=== PATIENT | female | born 1980 | race Caucasian/White ===

== ENCOUNTER 2020-02-13 11:39 | Emergency (ER) | payer OTHER, SELFPAY ==
[2020-02-13 11:51] VITALS: BP 115/70; PULSE 80; RESP 16; TEMP 37.4; O2SAT 98; BMI 37.5
--- NOTE | 2020-02-13 12:04 | XR_ITS ---
EXAMINATION: XR CHEST CLINICAL INFORMATION: Covid like symptoms COMPARISON: November 18, 2019 TECHNIQUE: AP portable view of the chest was obtained. FINDINGS: No significant abnormality is noted involving the heart, lungs, mediastinum, bony thorax or soft tissues. IMPRESSION: No acute disease.
--- NOTE | 2020-02-13 12:22 | ED.URI ---
HPI - URI/Sore Throat General Chief Complaint: Upper Respiratory Symptoms Stated Complaint: COVID SCREENING Time Seen by Provider: 02/13/20 12:04 Source: patient Mode of arrival: ambulatory Limitations: no limitations History of Present Illness HPI Narrative: 39-year-old female with a past medical history of migraine headaches, disc herniation, depression, sinus infections and asthma presenting to the ED with complaints of 1 week of generalized body aches, sore throat, dry cough, nausea and diarrhea. Denies any other symptoms complaints or concerns at this time. Denies any recent travel or sick contacts. Related Data Allergies Allergy/AdvReac Type Severity Reaction Status Date / Time promethazine [From PHENERGAN] Allergy Unknown ITCHING Unverified 01/10/20 18:30 codeine [CODEINE] AdvReac Unknown STOMACH Unverified 01/10/20 18:30 UPSET morphine [MORPHINE] AdvReac Unknown MORE PAIN Unverified 01/10/20 18:30 Review of Systems Review of Systems: Constitutional : No Fever, No Chills, No fatigue, No Malaise ENT/Mouth : No runny nose Eyes: No Discharge Cardiovascular : No Chest Pain, No SOB Respiratory : No Sputum, No Wheezing, No Dyspnea Gastrointestinal : No Vomiting, No Diarrhea Genitourinary : No Dysuria Skin : No rash Neuro : No Headache Yes all other systems are reviewed and are negative [facility] Past Medical History Attestation statement: The following information was validated with the patient. Medical History Asthma Depression Disc herniation H. pylori infection Migraine Sinus infection Surgical History History of Social History Social History Alcohol intake: never Smoking Status: Current every day smoker Use of substances other than those prescribed or required for medical reasons: No Physical Exam Vital Signs: Vital Signs: Vital Signs Temp Pulse Resp BP Pulse Ox 02/13/20 11:51 99.3 F 80 16 115/70 98 Body Mass Index 37.5 vital signs have been reviewed as normal and appeared to be correct. Blood pressure normal. Heart rate normal. Respiration rate normal. Temperature normal. Oxygen saturation normal. Appearance: Alert. Oriented X3. No acute distress. Head: Normal external exam. Normocephalic. Atraumatic. No Borjas signs noted. No raccoon eyes noted Eyes: PERRLA. EOMI. Conjunctiva and sclera normal. Eyelids normal. ENT: EAC normal. TM's Normal. Pharynx normal. Uvula midline. Moist mucous membranes. No trismus noted. No drooling noted. No muffled voice noted. Neck: Normal inspection. Neck supple. FROM. No adenopathy. Thyroid Normal. No meningeal signs. No neck mass noted. CVS: Normal heart rate and rhythm. Heart sound normal. No murmurs noted. Pulses normal throughout. Respiratory: No respiratory distress. Painless inspiration. Breath sounds normal. No wheezes/rales/rhonchi noted. Chest nontender. No accessory muscle usage noted or decreased air movement noted. Abdomen: Soft and nontender. Bowel sounds normal in all 4 quadrants. No distention noted. No organomegaly noted. No visible injury noted. Back: No CVA tenderness. Full range of motion noted. Skin: Skin warm and dry. Normal skin color. Normal skin turgor. No rashes/lesions/lacerations noted. Extremities: No lower extremity edema. Extremities exhibit normal range of motion. Extremities nontender. Neuro: Oriented X 3. No motor deficit. No sensory deficit. Reflexes normal. Course Course Course Narrative: 12:10PM 39-year-old female with a past medical history of migraine headaches, disc herniation, depression, sinus infections and asthma presenting to the ED with complaints of 1 week of generalized body aches, sore throat, dry cough, nausea and diarrhea. Denies any other symptoms complaints or concerns at this time. Denies any recent travel or sick contacts. - CXR, rapid strep and and covid swab. Patient also requesting a muscle relaxer therefore will give 10 mg of Flexeril at this time then re-evaluate. Reevaluation(s) Reevaluation #1: Chest x-ray within normal limits. COVID swab pending at this time although will DC home with symptomatic treatment along with instructions to return if any new or worsening symptoms to self isolate into her COVID swab results come back or 10 days have passed since her symptoms have started and are improving. Patient understands agrees with this plan to return if any new or worsening symptoms to follow-up with primary care provider. Time: 12:43 [facility] - URI/Sore Throat Medical Records Attestation: I reviewed the patient's medical records. Imaging Data Chest x-ray: Attestation: I personally reviewed and interpreted this imaging study as follows: Radiologist's impression: FINDINGS: No significant abnormality is noted involving the heart, lungs, mediastinum, bony thorax or soft tissues. IMPRESSION: No acute disease.
[2020-02-13] MEDS: Cyclobenzaprine HCl 10 MG TABLET PO (12:27)
== END 2020-02-13 13:28 | disposition home or self-care (01) ==
PROVIDERS: Physician Assistant Medical; Emergency Provider Emergency Medicine
DX: B34.9 Viral infection, unspecified (principal); Z20.828 Contact with and (suspected) exposure to other viral communicable diseases; J45.909 Unspecified asthma, uncomplicated; F17.200 Nicotine dependence, unspecified, uncomplicated
CPT/HCPCS: 71045; 87071; 87635; 87880; 99283

== ENCOUNTER 2020-03-24 19:20 | Emergency (ER) | payer OTHER, SELFPAY ==
[2020-03-24 19:25] VITALS: BP 117/75; PULSE 87; RESP 18; TEMP 37; O2SAT 98; BMI 37.4
--- NOTE | 2020-03-24 20:40 | XR_ITS ---
EXAMINATION: XR ANKLE, RIGHT CLINICAL INFORMATION: Right ankle pain. Fall COMPARISON: None TECHNIQUE: AP, lateral, and mortise views of the right ankle. FINDINGS: The bones and soft tissues are normal. No fracture. Alignment is anatomic. Joint spaces are maintained. No joint effusion. XR/XR ankle RT 2V IMPRESSION: Normal right ankle.
--- NOTE | 2020-03-24 20:40 | ED.FALL ---
HPI - Fall General Chief Complaint: Fall Stated Complaint: FALL AT WORK Time Seen by Provider: 03/24/20 22:02 Source: patient Mode of arrival: ambulatory Limitations: no limitations History of Present Illness HPI Narrative: 39-year-old female presents with left hip pain, left knee pain, left ankle pain and right ankle pain after a slip and fall at work. She has chronic lower back pain. She is ambulatory but walking with a limp. She does not describe any other symptoms. MD complaint: fall Onset (ago): unknown Fall from: standing Fall witnessed: yes, by bystander Place fall occurred: work Loss of consciousness: none Prolonged down time: no Symptoms prior to fall: none Context: tripped/slipped Severity scale (1-10): 10 Quality: aching, tingling, spasming and throbbing Associated symptoms (after fall): denies Related Data Previous Rx's Medication Instructions Recorded acetaminophen [Tylenol] 650 mg PO Q6H PRN #14 tab 02/13/20 azithromycin See Rx Instructions .ROUTE 02/13/20 .COMPLEX #6 tab cyclobenzaprine 10 mg PO TID PRN #14 tab 02/13/20 cyclobenzaprine 10 mg PO TID PRN #30 tab 03/24/20 ondansetron HCl [Zofran] 4 mg PO Q8H PRN #10 tab 03/24/20 Allergies Allergy/AdvReac Type Severity Reaction Status Date / Time promethazine [From PHENERGAN] Allergy Unknown ITCHING Verified 03/24/20 21:49 codeine [CODEINE] AdvReac Unknown STOMACH Verified 03/24/20 21:49 UPSET morphine [MORPHINE] AdvReac Unknown MORE PAIN Verified 03/24/20 21:49 Review of Systems Review of Systems: Constitutional: No Fever, No Chills ENT/Mouth: No Ear Pain, No Hoarseness, No sore throat Eyes: No Eye Pain, No Swelling, No Redness, No Foreign Body Cardiovascular: No Chest Pain, No SOB Respiratory: No Cough, No Dyspnea Gastrointestinal: No Nausea, No Vomiting, No Diarrhea, No abdominal Pain Genitourinary: No Dysuria, No Hematuria Musculoskeletal: positive Left hip, knee ankle and right ankle pain, No Myalgias, No Joint Swelling Skin: No Skin lacerations, No rash Neuro: No Weakness, No Numbness, No Paresthesias, No Loss of Consciousness, No Dizziness, No Headache Psych: No Anxiety/Panic, No Depression Heme/Lymph: no easy bruising, no Lymphadenopathy Endocrine: No Polyuria, No Polydipsia PMF Past Medical History Medical History Asthma Depression Disc herniation H. pylori infection Migraine Sinus infection Surgical History History of Social History Social History Alcohol intake: never Smoking Status: Current every day smoker Advance Directives: No Advance Directives Information Provided: Yes Physical Exam Vital Signs: Vital Signs: Last Vital Signs Temp 98.6 F 03/24/20 19:25 Pulse 87 03/24/20 19:25 Resp 18 03/24/20 19:25 BP 117/75 03/24/20 19:25 Pulse Ox 98 03/24/20 19:25 Body Mass Index 37.4 Appearance: Alert. Oriented X3. No acute distress. Eyes: Pupils equal, round and reactive to light. ENT: Pharynx normal. Neck: Normal inspection. Neck supple. CVS: Normal heart rate and rhythm. Pulses normal. Respiratory: No respiratory distress. Breath sounds normal. Abdomen: Soft and nontender. Skin: Skin warm and dry. Normal skin color. Normal skin turgor. Extremities: No lower extremity edema. Neuro: No motor deficit. No sensory deficit. Course Course Course Narrative: 39-year-old female presents with left hip, left knee, left ankle, and right ankle pain after a slip at work. Plan of care is for x-rays. Pain management Toradol and Flexeril. X-rays negative for acute findings. Patient was referred to pain management for chronic lower back pain. We did give work note for 1 day, and a script for Flexeril and Zofran. MDM - Fall Differential Diagnosis Differential diagnosis: Likely fracture Medical Records Attestation: I reviewed the patient's medical records. Lab Data Attestation: I reviewed the patient's lab results. Imaging Data hip, ankle, knee x-ray: Attestation: I personally reviewed and interpreted this imaging study as follows: Radiologist's impression: EXAMINATION: XR HIP, LEFT CLINICAL INFORMATION: Fall. Hip pain COMPARISON: None TECHNIQUE: Three views of the left hip. FINDINGS: Bones and soft tissues are normal. No fracture. Alignment is anatomic. Hip joint space is maintained. XR/XR hip LT w PEL1V IMPRESSION: Normal left hip. EXAMINATION: XR KNEE, LEFT CLINICAL INFORMATION: Fall. Knee pain. COMPARISON: None TECHNIQUE: Four views of the left knee. FINDINGS: Bones and soft tissues are normal. No fracture or joint effusion. Alignment is anatomic. Joint spaces are well maintained. No abnormal soft tissue calcification. XR/XR knee LT 4V IMPRESSION: Normal left knee. EXAMINATION: XR ANKLE, LEFT CLINICAL INFORMATION: Fall. Left ankle pain COMPARISON: None TECHNIQUE: 3 views of the left ankle. FINDINGS: The bones and soft tissues are normal. No fracture. Alignment is anatomic. Joint spaces are maintained. No joint effusion. XR/XR ankle LT min 3V IMPRESSION: Normal left ankle. EXAMINATION: XR CHEST CLINICAL INFORMATION: Covid like symptoms COMPARISON: November 18, 2019 TECHNIQUE: AP portable view of the chest was obtained. FINDINGS: No significant abnormality is noted involving the heart, lungs, mediastinum, bony thorax or soft tissues. IMPRESSION: No acute disease. Discharge Plan Discharge Clinical Impression: Acute pain of left hip, Acute right ankle pain Patient Disposition: Home, Self-Care Instructions: Hip Pain (ED) Additional Instructions: you were evaluated for hip and ankle pain. X-rays are negative for acute fractures. I have referred you to Dr. Richter for pain management for Your chronic back pain. I prescribed Flexeril. This medication is not a narcotic it is a muscle relaxer. This medication can delay reaction time, increased risk for falls, and cause drowsiness. Do not drive or operate machinery while taking this medication. Thank you for choosing this emergency department for evaluation. Please follow-up with primary care physician as needed. Return to the emergency department for any new, concerning, or worsening symptoms. Prescriptions: New cyclobenzaprine 10 mg tablet 10 mg PO TID PRN (Reason: muscle spasm) Qty: 30 RF: 0 ondansetron HCl [Zofran] 4 mg tablet 4 mg PO Q8H PRN (Reason: nausea and vomiting) Qty: 10 RF: 0 No Action azithromycin 250 mg tablet See Rx Instructions .ROUTE .COMPLEX Qty: 6 RF: 0 cyclobenzaprine 10 mg tablet 10 mg PO TID PRN (Reason: muscle spasm) Qty: 14 RF: 0 acetaminophen [Tylenol] 325 mg tablet 650 mg PO Q6H PRN (Reason: fever or pain) Qty: 14 RF: 0 Referrals: Salazar Richter MD [Physician] - 2 days ( chronic back pain, hip pain) Stand Alone Forms: Work/School Release Interventions: ED Discharge Assessment Last Done: 03/24/20 22:29 Discharge Date/Time: 03/24/20 22:30
--- NOTE | 2020-03-24 21:05 | XR_ITS ---
EXAMINATION: XR ANKLE, LEFT CLINICAL INFORMATION: Fall. Left ankle pain COMPARISON: None TECHNIQUE: 3 views of the left ankle. FINDINGS: The bones and soft tissues are normal. No fracture. Alignment is anatomic. Joint spaces are maintained. No joint effusion. XR/XR ankle LT min 3V IMPRESSION: Normal left ankle.
[2020-03-24] MEDS: Ketorolac Tromethamine 60 MG/2 ML VIAL IM (21:17)
[2020-03-24] MEDS: Cyclobenzaprine HCl 10 MG TABLET PO (22:22)
== END 2020-03-24 22:30 | disposition home or self-care (01) ==
PROVIDERS: Emergency Provider Emergency Medicine Emergency Medical Services
DX: S79.912A Unspecified injury of left hip, initial encounter (principal); M25.552 Pain in left hip; M25.571 Pain in right ankle and joints of right foot; M25.562 Pain in left knee; W01.0XXA Fall on same level from slipping, tripping and stumbling without subsequent striking against object, initial encounter; Y93.9 Activity, unspecified; Y92.9 Unspecified place or not applicable; Y99.0 Civilian activity done for income or pay; F17.200 Nicotine dependence, unspecified, uncomplicated; Z71.6 Tobacco abuse counseling; Z79.899 Other long term (current) drug therapy
CPT/HCPCS: 73502; 73564; 73600; 73610; 96372; 99283; 99284; J1885

== ENCOUNTER 2021-01-12 20:17 | Emergency (ER) | payer OTHER, SELFPAY ==
--- NOTE | ~2021-01-12 | XR_ITS ---
EXAMINATION: XR CHEST CLINICAL INFORMATION: Cough and fever COMPARISON: Chest 02/13/2020 TECHNIQUE: Frontal view of the chest was obtained. FINDINGS: No significant abnormality is noted involving the heart, lungs, mediastinum, bony thorax or soft tissues. XR/XR chest 1V IMPRESSION: Unremarkable chest exam.
[2021-01-12 20:43] VITALS: BP 116/74; PULSE 76; RESP 16; TEMP 37.3; O2SAT 98; BMI 37.4
--- NOTE | 2021-01-12 20:51 | PC.NURSE ---
Covid swab obtained in Triage.
--- NOTE | 2021-01-12 21:01 | ED_ITS ---
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 At work there was a COVID positive patient. Patient has been vaccinated. Cough and chest pain. MD elicited complaint: fever, cough and sore throat Onset (ago): day(s) (2) Consistency: constant Severity: mild Associated symptoms: fever, chills, nausea, vomiting and diarrhea Related Data Previous Rx's Medication Instructions Recorded acetaminophen 325 mg tablet 650 mg PO Q6H PRN #14 tab 02/13/20 (Tylenol) azithromycin 250 mg tablet See Rx Instructions .ROUTE 02/13/20 .COMPLEX #6 tab cyclobenzaprine 10 mg tablet 10 mg PO TID PRN #14 tab 02/13/20 cyclobenzaprine 10 mg tablet 10 mg PO TID PRN #30 tab 03/24/20 ondansetron HCl 4 mg tablet 4 mg PO Q8H PRN #10 tab 03/24/20 (Zofran) Allergies Allergy/AdvReac Type Severity Reaction Status Date / Time promethazine [From PHENERGAN] Allergy Unknown ITCHING Verified 01/12/21 20:48 codeine [CODEINE] AdvReac Unknown STOMACH Verified 01/12/21 20:48 UPSET morphine [MORPHINE] AdvReac Unknown MORE PAIN Verified 01/12/21 20:48 Review of Systems Constitutional: Constitutional: Reports no additional constitutional complaints Eyes: Eyes: Reports no additional eye complaints ENT: Denies dizziness Cardiovascular: Cardiovascular: Reports no additional cardiovascular complaints Respiratory: Respiratory: Reports as per HPI Gastrointestinal: Gastrointestinal: Reports no additional gastrointestinal complaints Genitourinary: Genitourinary: Reports no additional female genitourinary com plaints Musculoskeletal: Musculoskeletal: Reports no additional musculoskeletal complaints Integumentary/Breasts: Skin/Breast: Denies rash Neurologic: Reports system reviewed and no additional complaints, except as documented, Denies dizziness and Denies Sensory deficit (Neuro) Psychiatric: Psychiatric: Denies anxiety PMFSH Past Medical History Medical History Asthma Depression Disc herniation H. pylori infection Migraine Sinus infection Surgical History History of Social History Social History Alcohol intake: never Advance Directives: No Advance Directives Information Provided: No Patient : No Physical Exam Vital Signs: Vital Signs: Last Vital Signs Temp 99.1 F 01/12/21 20:43 Pulse 76 01/12/21 20:43 Resp 16 01/12/21 20:43 BP 116/74 01/12/21 20:43 Pulse Ox 98 01/12/21 20:43 Body Mass Index 37.4 Const: General: healthy appearing Nutritional Appearance: average body habitus Orientation/consciousness: oriented to person and patient oriented x3 Limitations: no limitations HENMT: Head: Yes normal to inspection Ears: external ears normal General nose exam: Normal external nose present Mouth: Normal oral and palatal mucosa present and oropharynx normal Throat: Yes posterior oropharynx normal Eyes: General: appearance normal, both eyes and all related structures Neck: Other: supple Neck: Yes normal visual inspection Chest: Chest palpation & inspection: normal inspection of the chest Resp: Other: slight wheeze bilaterally Cardio: Jugular venous distension: no JVD Rate: regular rate Rhythm: regular rhythm Heart sounds: S1 normal heart sound present and S2 normal heart sound present GI: Inspection: Yes normal to inspection Palpation (GI): Soft to palpation, nontender and No hepatosplenomegaly present Auscultation: normal bowel sounds : General: Yes no CVA tenderness Back/Spine/Pelvis: Back: no CVA tenderness Skin: General skin exam: no rashes or lesions noted Neuro: General: oriented to person and patient oriented x3 Cranial nerves: Yes CN's II-XII intact bilaterally Motor exam (neuro): 5/5 motor strength present throughout Sensory Exam: No Sensory deficit (Neuro) Extrem: General: Yes normal to inspection Psych: Appearance: grossly normal Course Reevaluation(s) Reevaluation #1: COVID negative, chest xray negative. patient given albuterol for wheezing will dc home Time: 21:38 MDM - URI/Sore Throat Lab Data Labs: Lab Results 01/12/21 Range/Units 20:49 COVID-19 ([facility]) Negative (Negative) COVID-19 Clin Com See Note Imaging Data Chest x-ray: Radiologist's impression: IMPRESSION: Unremarkable chest exam. ? Discharge Plan Discharge Clinical Impression: Asthma Qualifiers: Asthma severity: mild Asthma persistence: intermittent Asthma complication type: uncomplicated Qualified Code(s): J45.20 - Mild intermittent asthma, uncomplicated Upper respiratory infection Qualifiers: URI type: unspecified viral URI Qualified Code(s): J06.9 - Acute upper respiratory infection, unspecified Patient Disposition: Home, Self-Care Instructions: Asthma (ED), Upper Respiratory Infection (ED) Prescriptions: No Action azithromycin 250 mg tablet See Rx Instructions .ROUTE .COMPLEX Qty: 6 RF: 0 cyclobenzaprine 10 mg tablet 10 mg PO TID PRN (Reason: muscle spasm) Qty: 14 RF: 0 acetaminophen [Tylenol] 325 mg tablet 650 mg PO Q6H PRN (Reason: fever or pain) Qty: 14 RF: 0 cyclobenzaprine 10 mg tablet 10 mg PO TID PRN (Reason: muscle spasm) Qty: 30 RF: 0 ondansetron HCl [Zofran] 4 mg tablet 4 mg PO Q8H PRN (Reason: nausea and vomiting) Qty: 10 RF: 0 Referrals: Physician,Unknown [Primary Care Provider] - 1 week
[2021-01-12 21:16] LABS: COVID-19 Test Negative (Negative); IDNOW Serial# 9DD0AD1C
[2021-01-12] MEDS: Albuterol Sulfate 90 MCG 8 GM INHALER 4 PUFF INHALE (21:24)
[2021-01-12] MEDS: Ondansetron ODT 4 MG TAB.RAPDIS TRANSLINGU (21:24)
== END 2021-01-12 21:55 | disposition home or self-care (01) ==
PROVIDERS: Emergency Provider Emergency Medicine
DX: J45.20 Mild intermittent asthma, uncomplicated (principal); J06.9 Acute upper respiratory infection, unspecified; R51.9 Headache, unspecified; M79.10 Myalgia, unspecified site; Z20.822 Contact with and (suspected) exposure to COVID-19; Z79.899 Other long term (current) drug therapy
CPT/HCPCS: 36415; 71045; 87635; 99284

== ENCOUNTER 2021-05-03 19:02 | Emergency (ER) | payer OTHER, SELFPAY ==
[2021-05-03 19:53] VITALS: BP 132/81; PULSE 80; RESP 16; TEMP 36.4; O2SAT 97; BMI 61.4
[2021-05-03 20:16] LABS: MANUAL DIFF FLAG NO
[2021-05-03 20:17] LABS: Basophils Absolute Auto 0.1 X10*3/uL (0.0-0.2); Basophils Percent Auto 1.1 % (0-2); Eosinophils Absolute Auto 0.6 X10*3/uL (0.0-0.4); Eosinophils Percent Auto 4.3 % (0-4); Hematocrit 40.3 % (37.0-47.0); Hemoglobin 13.1 g/dl (12.0-16.0); Imm Gran Abs Auto 0.05 X10*3/uL (0.00-0.03); Imm Gran Pct Auto 0.4 % (0.0-0.4); Lymphocytes Absolute Auto 3.8 X10*3/uL (1.2-4.9); Lymphocytes Percent Auto 29.1 % (20-40); Mean Corpuscular HGB Conc 32.5 g/dl (31.0-35.0); Mean Corpuscular Hemoglobin 28.7 pg (27.0-33.0); Mean Corpuscular Volume 88.2 fL (80.0-98.0); Mean Platelet Volume 10.2 fL (9.4-12.3); Monocytes Absolute Auto 0.8 X10*3/uL (0.1-1.2); Monocytes Percent Auto 5.7 % (2-11); Neutrophils Absolute Auto 7.8 x10*3/uL (2.0-8.3); Neutrophils Percent Auto 59.4 % (45-73); Platelet Count 362 X10*3/uL (160-400); Red Blood Count 4.57 X10*6/uL (4.20-5.50); Red Cell Distribution Width 15.4 % (11.0-16.0); White Blood Count 13.1 X10*3/uL (4.8-10.8)
[2021-05-03 20:33] LABS: Alanine Aminotransferase 27 U/L (0-31); Albumin Level 3.8 g/dL (3.5-5.0); Alkaline Phosphatase 99 U/L (39-117); Anion Gap 11 (12-20); Aspartate Amino Transferase 20 U/L (5-31); Bilirubin Total 0.2 mg/dL (0.0-1.0); Blood Urea Nitrogen 12 mg/dL (9-16); Calcium 9.8 mg/dL (8.4-10.2); Carbon Dioxide 28 mmol/L (22-29); Chloride 104 mmol/L (96-108); Creatinine Clr Calc Pharmacy 73.4; Estimated Glomerular Filt Rate > 60; Glucose Random 82 mg/dL (60-115); Potassium 4.8 mmol/L (3.3-5.1); Sodium 138 mmol/L (135-145); Total Protein 6.7 g/dL (6.5-8.0)
[2021-05-03 20:40] LABS: B Type Natriuretic Peptide < 10 pg/mL (<100)
[2021-05-03 21:00] LABS: D Dimer High Sensitivity < 150 NG/ML
--- NOTE | 2021-05-03 23:35 | ED_ITS ---
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 Patient denies any shortness of b reath, recent travel. Patient denies any vomiting, abdominal pain, new cough, diarrhea, urinary pain/burning/frequency. Related Data Previous Rx's Medication Instructions Recorded acetaminophen 325 mg tablet 650 mg PO Q6H PRN #14 tab 02/13/20 (Tylenol) azithromycin 250 mg tablet See Rx Instructions .ROUTE 02/13/20 .COMPLEX #6 tab cyclobenzaprine 10 mg tablet 10 mg PO TID PRN #14 tab 02/13/20 cyclobenzaprine 10 mg tablet 10 mg PO TID PRN #30 tab 03/24/20 ondansetron HCl 4 mg tablet 4 mg PO Q8H PRN #10 tab 03/24/20 (Zofran) cephalexin 500 mg capsule 500 mg PO Q12H 5 Days #10 cap 05/03/21 Allergies Allergy/AdvReac Type Severity Reaction Status Date / Time promethazine [From PHENERGAN] Allergy Unknown ITCHING Verified 05/03/21 19:58 codeine [CODEINE] AdvReac Unknown STOMACH Verified 05/03/21 19:58 UPSET morphine [MORPHINE] AdvReac Unknown MORE PAIN Verified 05/03/21 19:58 Review of Systems Review of Systems: Pertinent positives and negatives as stated in HPI 10 point review of systems is otherwise negative. [facility] Past Medical History Source: nursing notes reviewed Medical History Asthma Depression Disc herniation H. pylori infection Migraine Sinus infection Surgical History History of Social History Social History Alcohol intake: never Advance Directives: No Advance Directives Information Provided: Yes Patient : No Physical Exam Vital Signs: Vital Signs: Last Vital Signs Temp 97.5 F 05/03/21 19:53 Pulse 80 05/03/21 19:53 Resp 16 05/03/21 19:53 BP 132/81 05/03/21 19:53 Pulse Ox 97 05/03/21 19:53 BMI result Body Mass Index 61.4 VITAL SIGNS: Reviewed. GENERAL: Well developed, well nourished, in no acute distress. HEAD: Normocephalic/atraumatic EYES: PERRLA, EOMI OROPHARYNX: no oral lesions noted, posterior pharynx clear LUNGS: Normal breath sounds. No adventitious sounds or accessory muscle use. SpO2<97> CARDIOVASCULAR: Regular rate and rhythm without noted murmurs ABDOMEN: Soft, non-tender, non-distended with bowel sounds. BILATERAL LOWER EXTREMITIES: There is noted nonpitting edema to bilateral lower extremities without evidence of varicosity, there are no palpable cords, there is trace erythema without induration NEUROLOGIC: Alert and oriented x 4. Course Course Course Narrative: 40-year-old female with history and clinical presentation of w orsening bilateral lower extremity swelling without fever/chills and on review of all investigations no evidence to suggest renal or coagulopathy. There is a noted leukocytosis, and given mild erythema to lower extremities will provide a prescription for cellulitis and otherwise the history is negative to suggest a pneumonia or GI/ etiology. Patient is afebrile and is otherwise discharged home in stable condition to follow-up with a primary care provider. All results discussed with the patient at bedside. MDM - Extremity (Nontraumatic) Lab Data Result diagrams: 05/03/21 20:12 05/03/21 20:12 Labs: Lab Results 05/03/21 05/03/21 05/03/21 Range/Units 20:12 20:12 20:12 WBC 13.1 H (4.8-10.8) X10*3/uL RBC 4.57 (4.20-5.50) X10*6/uL Hgb 13.1 (12.0-16.0) g/dl Hct 40.3 (37.0-47.0) % MCV 88.2 (80.0-98.0) fL MCH 28.7 (27.0-33.0) pg MCHC 32.5 (31.0-35.0) g/dl RDW 15.4 (11.0-16.0) % Plt Count 362 (160-400) X10*3/uL MPV 10.2 (9.4-12.3) fL Immature Gran % (Auto) 0.4 (0.0-0.4) % Neut % (Auto) 59.4 (45-73) % Lymph % (Auto) 29.1 (20-40) % Robeson % (Auto) 5.7 (2-11) % Eos % (Auto) 4.3 H (0-4) % Baso % (Auto) 1.1 (0-2) % Lymph # (Auto) 3.8 (1.2-4.9) X10*3/uL Robeson # (Auto) 0.8 (0.1-1.2) X10*3/uL Eos # (Auto) 0.6 H (0.0-0.4) X10*3/uL Baso # (Auto) 0.1 (0.0-0.2) X10*3/uL Abs Immat Gran (auto) 0.05 H (0.00-0.03) X10*3/uL Absolute Neuts (auto) 7.8 (2.0-8.3) x10*3/uL Absolute Nucleated RBC 0.000 (0.0-0.012) X10*3/uL Nucleated RBC % (auto) 0.0 (0.0-0.2) /100WBC D-Dimer High Sensitivty < 150 NG/ML Sodium 138 (135-145) mmol/L Potassium 4.8 (3.3-5.1) mmol/L Chloride 104 (96-108) mmol/L Carbon Dioxide 28 (22-29) mmol/L Anion Gap 11 L (12-20) BUN 12 (9-16) mg/dL Creatinine 0.80 (0.5-1.4) mg/dL Estim Creat Clear Calc 73.4 Estimated GFR > 60 Random Glucose 82 (60-115) mg/dL Calcium 9.8 (8.4-10.2) mg/dL Total Bilirubin 0.2 (0.0-1.0) mg/dL AST 20 (5-31) U/L ALT 27 (0-31) U/L Alkaline Phosphatase 99 (39-117) U/L B-Natriuretic Peptide (<100) pg/mL Total Protein 6.7 (6.5-8.0) g/dL Albumin 3.8 (3.5-5.0) g/dL 05/03/21 Range/Units 20:12 WBC (4.8-10.8) X10*3/uL RBC (4.20-5.50) X10*6/uL Hgb (12.0-16.0) g/dl Hct (37.0-47.0) % MCV (80.0-98.0) fL MCH (27.0-33.0) pg MCHC (31.0-35.0) g/dl RDW (11.0-16.0) % Plt Count (160-400) X10*3/uL MPV (9.4-12.3) fL Immature Gran % (Auto) (0.0-0.4) % Neut % (Auto) (45-73) % Lymph % (Auto) (20-40) % Robeson % (Auto) (2-11) % Eos % (Auto) (0-4) % Baso % (Auto) (0-2) % Lymph # (Auto) (1.2-4.9) X10*3/uL Robeson # (Auto) (0.1-1.2) X10*3/uL Eos # (Auto) (0.0-0.4) X10*3/uL Baso # (Auto) (0.0-0.2) X10*3/uL Abs Immat Gran (auto) (0.00-0.03) X10*3/uL Absolute Neuts (auto) (2.0-8.3) x10*3/uL Absolute Nucleated RBC (0.0-0.012) X10*3/uL Nucleated RBC % (auto) (0.0-0.2) /100WBC D-Dimer High Sensitivty NG/ML Sodium (135-145) mmol/L Potassium (3.3-5.1) mmol/L Chloride (96-108) mmol/L Carbon Dioxide (22-29) mmol/L Anion Gap (12-20) BUN (9-16) mg/dL Creatinine (0.5-1.4) mg/dL Estim Creat Clear Calc Estimated GFR Random Glucose (60-115) mg/dL Calcium (8.4-10.2) mg/dL Total Bilirubin (0.0-1.0) mg/dL AST (5-31) U/L ALT (0-31) U/L Alkaline Phosphatase (39-117) U/L B-Natriuretic Peptide < 10 (<100) pg/mL Total Protein (6.5-8.0) g/dL Albumin (3.5-5.0) g/dL Discharge Plan Discharge Clinical Impression: Bilateral leg edema, Cellulitis Patient Disposition: Home, Self-Care Instructions: Leg Edema (ED), Cellulitis (ED) Additional Instructions: 1. Complete todo el ciclo de antibi?ticos que le johnson proporcionado. Recomendar medias de compresi?n. 2. Seguimiento con el proveedor de atenci?n primaria a primera hora de la ma?carrie. Regrese a la lyndsey de emergencias si los s?ntomas empeoran. Prescriptions: New cephalexin 500 mg capsule 500 mg PO Q12H 5 Days Qty: 10 RF: 0 No Action azithromycin 250 mg tablet See Rx Instructions .ROUTE .COMPLEX Qty: 6 RF: 0 cyclobenzaprine 10 mg tablet 10 mg PO TID PRN (Reason: muscle spasm) Qty: 14 RF: 0 acetaminophen [Tylenol] 325 mg tablet 650 mg PO Q6H PRN (Reason: fever or pain) Qty: 14 RF: 0 cyclobenzaprine 10 mg tablet 10 mg PO TID PRN (Reason: muscle spasm) Qty: 30 RF: 0 ondansetron HCl [Zofran] 4 mg tablet 4 mg PO Q8H PRN (Reason: nausea and vomiting) Qty: 10 RF: 0 Referrals: Tatum Magdaleno MD [Primary Care Provider] - 2 days Print Language: Yakut
== END 2021-05-04 00:50 | disposition home or self-care (01) ==
LOC: HO.ED 05-04 00:11
PROVIDERS: Emergency Provider Student in an Organized Health Care Education/Training Program; PCP Family Medicine
DX: R60.0 Localized edema (principal); L03.116 Cellulitis of left lower limb; L03.115 Cellulitis of right lower limb; D72.829 Elevated white blood cell count, unspecified
CPT/HCPCS: 36415; 80053; 83880; 85025; 85379; 99283

== ENCOUNTER 2021-08-13 22:12 | Emergency (ER) | payer OTHER, SELFPAY ==
[2021-08-13 22:18] VITALS: BP 112/82; PULSE 96; RESP 18; TEMP 36.2; O2SAT 96; BMI 42.3
[2021-08-13 22:43] LABS: Appearance Urine CLEAR; Color Urine YELLOW; Glucose Urine UA NEG (NEG); Leukocyte Esterase Urine NEG (NEG); Nitrite Urine NEG (NEG); Urine Blood NEG (NEG); Urine Ketones NEG (NEG); Urine Protein NEG (NEG-TRACE)
[2021-08-13 22:44] LABS: UPreg QC Valid YES; Urine Pregnancy NEGATIVE (NEGATIVE)
[2021-08-13 22:49] LABS: Bacteria Urine TRACE /LPF; RBC Urine 0 /HPF (0); Squamous Epithelial Cell Urine 1+ /LPF; Urine Talc Crystals 1+ /LPF; WBC Urine 0 /HPF (0-4)
[2021-08-13] MEDS: Cyclobenzaprine HCl 10 MG TABLET PO (23:44)
[2021-08-13] MEDS: HYDROmorphone HCl 2 MG TABLET 1 MG PO (23:44)
[2021-08-13] MEDS: cephALEXin 500 MG CAPSULE PO (23:45)
[2021-08-14] VITALS: BP 135/79; PULSE 82; RESP 16; TEMP 36.2; O2SAT 95
--- NOTE | 2021-08-14 00:01 | ED_ITS ---
HPI - Female Genitourinary General Chief complaint: Urogenital-Female Stated complaint: ?UTI/Lower back pain/lump on breast Time Seen by Provider: 08/13/21 23:21 Source: patient Mode of arrival: ambulatory Limitations: no limitations History of Present Illness HPI Narrative: Patient history of chronic back problems has received epidural shots in the past advised surgery but patient could not go because of the weight complaining of pain getting worse for last 4 weeks also complaining of pain when she urinates no paresthesia no focal weakness no recent trauma no fever or chills no nausea vomiting no bladder or bowel continence of the patient noted slight redness of the left breast for last 2 days Related Data Previous Rx's Medication Instructions Recorded acetaminophen 325 mg tablet 650 mg PO Q6H PRN #14 tab 02/13/20 (Tylenol) azithromycin 250 mg tablet See Rx Instructions .ROUTE 02/13/20 .COMPLEX #6 tab cyclobenzaprine 10 mg tablet 10 mg PO TID PRN #14 tab 02/13/20 cyclobenzaprine 10 mg tablet 10 mg PO TID PRN #30 tab 03/24/20 ondansetron HCl 4 mg tablet 4 mg PO Q8H PRN #10 tab 03/24/20 (Zofran) cephalexin 500 mg capsule 500 mg PO Q12H 5 Days #10 cap 05/03/21 cephalexin 500 mg capsule 500 mg PO QID 10 Days #40 cap 08/14/21 cyclobenzaprine 10 mg tablet 10 mg PO Q8H #20 tab 08/14/21 doxycycline hyclate 100 mg tablet 100 mg PO BID #20 tab 08/14/21 ondansetron 4 mg disintegrating 4 mg PO Q6-8H PRN #7 tab 08/14/21 tablet oxycodone-acetaminophen 5 mg-325 1 tab PO Q6H PRN #20 tab 08/14/21 mg tablet (Percocet) Allergies Allergy/AdvReac Type Severity Reaction Status Date / Time promethazine [From PHENERGAN] Allergy Unknown ITCHING Verified 05/03/21 19:58 codeine [CODEINE] AdvReac Unknown STOMACH Verified 05/03/21 19:58 UPSET morphine [MORPHINE] AdvReac Unknown MORE PAIN Verified 05/03/21 19:58 Review of Systems Review of Systems: Yes all other systems are reviewed and are negative PMFSH Past Medical History Medical History Asthma Depression Disc herniation H. pylori infection Migraine Sinus infection Surgical History History of Social History Social History Alcohol intake: never Advance Directives: No Physical Exam Vital Signs: Vital Signs: Last Vital Signs Temp 97.2 F 08/14/21 00:00 Pulse 82 08/14/21 00:00 Resp 16 08/14/21 00:00 BP 135/79 08/14/21 00:00 Pulse Ox 95 08/14/21 00:00 BMI result Body Mass Index 42.3 Appearance: Alert. Oriented X3. No acute distress. ENT: Pharynx normal. Oral Mucosa moist Neck: Normal inspection. Neck supple. CVS: Normal heart rate and rhythm. Pulses normal. Respiratory: No respiratory distress. Equal air entry bilateral, no wheezing/rales/rhonchi Abdomen: Soft and nontender. Bowel sounds are present, no mass palpable, no CVA tenderness Skin: Skin warm and dry. Small erythematous tender area of left breast without any fluctuance or any pus discharge Normal skin turgor. Extremities: No lower extremity edema. No calf tenderness back: Diffuse lumbar tenderness focal spinal tenderness SLR negative sacral sensation intact Neuro: Oriented X 3. No motor deficit. No sensory deficit. MDM - Female Genitourinary MDM Narrative Medical decision making narrative: Patient with chronic low back pain no finding of any long tract involvement will discharge patient home on pain medication and muscle relaxant Lab Data Attestation: I reviewed the patient's lab results. Labs: Lab Results 08/13/21 08/13/21 Range/Units 22:31 22:31 Urine Color YELLOW Urine Appearance CLEAR Urine pH 6.0 (5.0-8.0) Ur Specific [place] 1.010 (1.005-1.025) Urine Protein NEG (NEG-TRACE) MG/DL Urine Glucose (UA) NEG (NEG) MG/DL Urine Ketones NEG (NEG) MG/DL Urine Blood NEG (NEG) Urine Nitrite NEG (NEG) Ur Leukocyte Esterase NEG (NEG) Urine RBC 0 (0) /HPF Urine WBC 0 (0-4) /HPF Ur Squamous Epith Cells 1+ /LPF Talc Crystals 1+ /LPF Urine Bacteria TRACE /LPF Urine Test NEGATIVE (NEGATIVE) Discharge Plan Discharge Clinical Impression: Chronic low back pain, Cellulitis Patient Disposition: Home, Self-Care Instructions: Cellulitis (ED), Chronic Back Pain (DC) Additional Instructions: Take pain medication as prescribed Follow with PCP/Pain Clinic Prescriptions: New cyclobenzaprine 10 mg tablet 10 mg PO Q8H Qty: 20 0RF oxycodone-acetaminophen [Percocet] 5-325 mg tablet 1 tab PO Q6H PRN (Reason: pain) Qty: 20 0RF cephalexin 500 mg capsule 500 mg PO QID 10 Days Qty: 40 0RF ondansetron 4 mg tablet,disintegrating 4 mg PO Q6-8H PRN (Reason: nausea and vomiting) Qty: 7 0RF doxycycline hyclate 100 mg tablet 100 mg PO BID Qty: 20 0RF No Action azithromycin 250 mg tablet See Rx Instructions .ROUTE .COMPLEX Qty: 6 0RF Rx Instructions: take 500 mg today (day 1), then 250 mg for 4 days (days 2-5) cyclobenzaprine 10 mg tablet 10 mg PO TID PRN (Reason: muscle spasm) Qty: 14 0RF acetaminophen [Tylenol] 325 mg tablet 650 mg PO Q6H PRN (Reason: fever or pain) Qty: 14 0RF cyclobenzaprine 10 mg tablet 10 mg PO TID PRN (Reason: muscle spasm) Qty: 30 0RF ondansetron HCl [Zofran] 4 mg tablet 4 mg PO Q8H PRN (Reason: nausea and vomiting) Qty: 10 0RF cephalexin 500 mg capsule 500 mg PO Q12H 5 Days Qty: 10 0RF
== END 2021-08-14 00:31 | disposition home or self-care (01) ==
PROVIDERS: Emergency Provider Internal Medicine
DX: L03.312 Cellulitis of back [any part except buttock and flank] (principal); M54.50 Low back pain, unspecified; Z79.899 Other long term (current) drug therapy
CPT/HCPCS: 81001; 81025; 99283; 99284

== ENCOUNTER 2021-09-17 19:04 | Inpatient (IN) | payer OTHER, SELFPAY ==
--- NOTE | ~2021-09-17 | XR_ITS ---
EXAMINATION: XR CHEST CLINICAL INFORMATION: Short of breath COMPARISON: 01/12/2021 TECHNIQUE: Frontal view of the chest was obtained. FINDINGS: The lungs are well expanded. There is no focal consolidation, edema, or effusion. Diffuse bronchial wall thickening. No pneumothorax. The cardiomediastinal silhouette is within normal limits. No acute osseous abnormality. XR/XR chest 1V IMPRESSION: No dense consolidation. Bronchial wall thickening can be seen with a small airways process such as asthma or atypical/viral infection.
[2021-09-17 19:07] VITALS: BP 139/85; PULSE 103; RESP 40; TEMP 37.3; O2SAT 93; BMI 54.5
--- NOTE | 2021-09-17 20:16 | ED_ITS ---
HPI - SOB/Dyspnea General Chief Complaint: Dyspnea Stated Complaint: diff breathing Time Seen by Provider: 09/17/21 20:10 Source: patient Mode of arrival: ambulatory Limitations: no limitations History of Present Illness HPI Narrative: Patient comes emergency room complaining of shortness of breath. Patient states it has been almost a week. About 5 days ago, patient went to walk to a [place] with her dog. Patient states he was a very hot day. Since then, she has been feeling very short of breath. Patient is known to be asthmatic. Patient uses Symbicort and albuterol, patient has been giving herself 6 pumps of albuterol each time . Patient denies fever chills. States that she ?bone pain , worse in her feet Related Data Previous Rx's Medication Instructions Recorded acetaminophen 325 mg tablet 650 mg PO Q6H PRN #14 tab 02/13/20 (Tylenol) azithromycin 250 mg tablet See Rx Instructions .ROUTE 02/13/20 .COMPLEX #6 tab cyclobenzaprine 10 mg tablet 10 mg PO TID PRN #14 tab 02/13/20 cyclobenzaprine 10 mg tablet 10 mg PO TID PRN #30 tab 03/24/20 ondansetron HCl 4 mg tablet 4 mg PO Q8H PRN #10 tab 03/24/20 (Zofran) cephalexin 500 mg capsule 500 mg PO Q12H 5 Days #10 cap 05/03/21 cephalexin 500 mg capsule 500 mg PO QID 10 Days #40 cap 08/14/21 cyclobenzaprine 10 mg tablet 10 mg PO Q8H #20 tab 08/14/21 doxycycline hyclate 100 mg tablet 100 mg PO BID #20 tab 08/14/21 ondansetron 4 mg disintegrating 4 mg PO Q6-8H PRN #7 tab 08/14/21 tablet oxycodone-acetaminophen 5 mg-325 1 tab PO Q6H PRN #20 tab 08/14/21 mg tablet (Percocet) Allergies Allergy/AdvReac Type Severity Reaction Status Date / Time promethazine [From PHENERGAN] Allergy Unknown ITCHING Verified 05/03/21 19:58 codeine [CODEINE] AdvReac Unknown STOMACH Verified 05/03/21 19:58 UPSET morphine [MORPHINE] AdvReac Unknown MORE PAIN Verified 05/03/21 19:58 Review of Systems Review of Systems: Constitutional : No Weight loss, No Fever, No Chills, No Night Sweats, complaining of fatigue and myalgias, complaining ?bone pain? ENT/Mouth : No Hearing loss, No Ear Pain, No Nasal Congestion, No Sinus Pain, No Hoarseness, No sore throat, No Rhinorrhea, No Swallowing Difficulty Eyes: No Eye Pain, No Swelling, No Redness, No Foreign Body, No Discharge, No Vision Changes Cardiovascular : No Chest Pain, No SOB, No Dyspnea on Exertion, No Orthopnea, No Edema, No Palpitations Respiratory : No Cough, No Sputum, complaining of wheezing and shortness of breath Gastrointestinal : No Nausea, No Vomiting, No Diarrhea, No Constipation, No abdominal Pain, No Hematochezia, No Melena Genitourinary : no irregular bleeding, No Dysuria, No Urinary Frequency, No Hematuria, No Urinary Incontinence, No Urgency, No Flank Pain, No Urinary Flow Changes, No Hesitancy Musculoskeletal : No joint pain, No Myalgias, No Joint Swelling Skin : No Skin Lesions, No rash Neuro : No Weakness, No Numbness, No Paresthesias, No Loss of Consciousness, No Dizziness, No Headache Psych : No Anxiety/Panic, No Depression, No SI/HI/AH/VH, No Social Issues, Heme/Lymph: No Bruising, No Bleeding,No Lymphadenopathy Endocrine : No Polyuria, No Polydipsia, No Temperature Intolerance [facility] Past Medical History Medical History Asthma Depression Disc herniation H. pylori infection Migraine Sinus infection Surgical History History of Social History Social History Alcohol intake: never Advance Directives: No Advance Directives Information Provided: Yes Physical Exam Vital Signs: Vital Signs: Last Vital Signs Temp 99.0 F 09/17/21 23:28 Pulse 86 09/17/21 23:28 Resp 16 09/17/21 23:28 BP 123/73 09/17/21 23:28 Pulse Ox 94 09/17/21 23:28 BMI result Body Mass Index 54.5 Const: Other: Appearance: Alert. Oriented X3. Anxious Eyes: Pupils equal, round and reactive to light. ENT: Pharynx normal. Neck: Normal inspection. Neck supple. No lymph nodes noted. No crepitus CVS: Normal heart rate and rhythm. Pulses normal. Normal S1 and S2 Respiratory: No respiratory distress. No wheezing, very good air movement, oxygen saturation 95% on room air Abdomen: Soft and nontender. No rigidity. No distention. Skin: Skin warm and dry. Normal skin color. Normal skin turgor. Extremities: No lower extremity edema. No Lacerations. No Rash Neuro: Oriented X 3. No motor deficit. No sensory deficit. Moving all extremities. No slurred speech. CN 2 through 12 grossly intact Psych: Cooperative, anxious Course Course Course Narrative: Patient is moving air completely normal, oxygen saturation 95%, no wheezing. Will go ahead and start the lab work and imaging. At this time, patient does not need nebulization treatments. However, I will go ahead and give her a dose of p.o. prednisone since it seems that the patient's asthma has been exacerbated in the last couple of days Patient walked to the bathroom, patient became short of breath. Oxygen saturation remained above 96%. D-dimer pending D-dimer is negative. We walked the patient around the room, patient started wheezing, became short of breath, oxygen saturation dropped to 88% on room air. Patient received albuterol, magnesium and Solu-Medrol pleural patient being admitted. MDM - SOB/Dyspnea Lab Data Result diagrams: 09/17/21 20:42 09/17/21 20:42 Labs: Lab Results 09/17/21 09/17/21 09/17/21 Range/Units 20:42 20:42 20:42 WBC 16.4 H (4.8-10.8) X10*3/uL RBC 4.61 (4.20-5.50) X10*6/uL Hgb 13.1 (12.0-16.0) g/dl Hct 39.0 (37.0-47.0) % MCV 84.6 (80.0-98.0) fL MCH 28.4 (27.0-33.0) pg MCHC 33.6 (31.0-35.0) g/dl RDW 15.5 (11.0-16.0) % Plt Count 313 (160-400) X10*3/uL MPV 10.2 (9.4-12.3) fL Immature Gran % (Auto) 0.4 (0.0-0.4) % Neut % (Auto) 72.1 (45-73) % Lymph % (Auto) 15.5 L (20-40) % Gordon % (Auto) 5.1 (2-11) % Eos % (Auto) 6.2 H (0-4) % Baso % (Auto) 0.7 (0-2) % Lymph # (Auto) 2.6 (1.2-4.9) X10*3/uL Gordon # (Auto) 0.8 (0.1-1.2) X10*3/uL Eos # (Auto) 1.0 H (0.0-0.4) X10*3/uL Baso # (Auto) 0.1 (0.0-0.2) X10*3/uL Abs Immat Gran (auto) 0.06 H (0.00-0.03) X10*3/uL Absolute Neuts (auto) 11.9 H (2.0-8.3) x10*3/uL Absolute Nucleated RBC 0.000 (0.0-0.012) X10*3/uL Nucleated RBC % (auto) 0.0 (0.0-0.2) /100WBC D-Dimer High Sensitivty NG/ML VBG pH (7.32-7.43) VBG pCO2 mmHg VBG pO2 mmHg VBG HCO3 (22-26) mmol/L VBG O2 Saturation % VBG Base Excess mmol/L Sodium 137 (135-145) mmol/L Potassium 4.5 (3.3-5.1) mmol/L Chloride 103 (96-108) mmol/L Carbon Dioxide 25 (22-29) mmol/L Anion Gap 14 (12-20) BUN 6 L (9-16) mg/dL Creatinine 0.72 (0.5-1.4) mg/dL Estim Creat Clear Calc 125.2 Estimated GFR > 60 Random Glucose 106 (60-115) mg/dL Calcium 9.4 (8.4-10.2) mg/dL Total Bilirubin 0.5 (0.0-1.0) mg/dL Direct Bilirubin 0.2 (0.0-0.5) mg/dL AST 23 (5-31) U/L ALT 36 H (0-31) U/L Alkaline Phosphatase 139 H D (39-117) U/L B-Natriuretic Peptide (<100) pg/mL Total Protein 6.8 (6.5-8.0) g/dL Albumin 3.7 (3.5-5.0) g/dL COVID-19 ([facility]) (Negative) COVID-19 Clin Com Influenza Type A ([facility]) Negative (Negative) Influenza Type B ([facility]) Negative (Negative) Influenza A & B Note See Note 09/17/21 09/17/21 09/17/21 Range/Units 20:42 20:42 20:49 WBC (4.8-10.8) X10*3/uL RBC (4.20-5.50) X10*6/uL Hgb (12.0-16.0) g/dl Hct (37.0-47.0) % MCV (80.0-98.0) fL MCH (27.0-33.0) pg MCHC (31.0-35.0) g/dl RDW (11.0-16.0) % Plt Count (160-400) X10*3/uL MPV (9.4-12.3) fL Immature Gran % (Auto) (0.0-0.4) % Neut % (Auto) (45-73) % Lymph % (Auto) (20-40) % Gordon % (Auto) (2-11) % Eos % (Auto) (0-4) % Baso % (Auto) (0-2) % Lymph # (Auto) (1.2-4.9) X10*3/uL Gordon # (Auto) (0.1-1.2) X10*3/uL Eos # (Auto) (0.0-0.4) X10*3/uL Baso # (Auto) (0.0-0.2) X10*3/uL Abs Immat Gran (auto) (0.00-0.03) X10*3/uL Absolute Neuts (auto) (2.0-8.3) x10*3/uL Absolute Nucleated RBC (0.0-0.012) X10*3/uL Nucleated RBC % (auto) (0.0-0.2) /100WBC D-Dimer High Sensitivty NG/ML VBG pH 7.42 (7.32-7.43) VBG pCO2 34 mmHg VBG pO2 88 mmHg VBG HCO3 23 (22-26) mmol/L VBG O2 Saturation 96.0 % VBG Base Excess -0.6 mmol/L Sodium (135-145) mmol/L Potassium (3.3-5.1) mmol/L Chloride (96-108) mmol/L Carbon Dioxide (22-29) mmol/L Anion Gap (12-20) BUN (9-16) mg/dL Creatinine (0.5-1.4) mg/dL Estim Creat Clear Calc Estimated GFR Random Glucose (60-115) mg/dL Calcium (8.4-10.2) mg/dL Total Bilirubin (0.0-1.0) mg/dL Direct Bilirubin (0.0-0.5) mg/dL AST (5-31) U/L ALT (0-31) U/L Alkaline Phosphatase (39-117) U/L B-Natriuretic Peptide 27 (<100) pg/mL Total Protein (6.5-8.0) g/dL Albumin (3.5-5.0) g/dL COVID-19 ([facility]) Negative (Negative) COVID-19 Clin Com See Note Influenza Type A ([facility]) (Negative) Influenza Type B ([facility]) (Negative) Influenza A & B Note 09/17/21 Range/Units 22:54 WBC (4.8-10.8) X10*3/uL RBC (4.20-5.50) X10*6/uL Hgb (12.0-16.0) g/dl Hct (37.0-47.0) % MCV (80.0-98.0) fL MCH (27.0-33.0) pg MCHC (31.0-35.0) g/dl RDW (11.0-16.0) % Plt Count (160-400) X10*3/uL MPV (9.4-12.3) fL Immature Gran % (Auto) (0.0-0.4) % Neut % (Auto) (45-73) % Lymph % (Auto) (20-40) % Gordon % (Auto) (2-11) % Eos % (Auto) (0-4) % Baso % (Auto) (0-2) % Lymph # (Auto) (1.2-4.9) X10*3/uL Gordon # (Auto) (0.1-1.2) X10*3/uL Eos # (Auto) (0.0-0.4) X10*3/uL Baso # (Auto) (0.0-0.2) X10*3/uL Abs Immat Gran (auto) (0.00-0.03) X10*3/uL Absolute Neuts (auto) (2.0-8.3) x10*3/uL Absolute Nucleated RBC (0.0-0.012) X10*3/uL Nucleated RBC % (auto) (0.0-0.2) /100WBC D-Dimer High Sensitivty < 150 NG/ML VBG pH (7.32-7.43) VBG pCO2 mmHg VBG pO2 mmHg VBG HCO3 (22-26) mmol/L VBG O2 Saturation % VBG Base Excess mmol/L Sodium (135-145) mmol/L Potassium (3.3-5.1) mmol/L Chloride (96-108) mmol/L Carbon Dioxide (22-29) mmol/L Anion Gap (12-20) BUN (9-16) mg/dL Creatinine (0.5-1.4) mg/dL Estim Creat Clear Calc Estimated GFR Random Glucose (60-115) mg/dL Calcium (8.4-10.2) mg/dL Total Bilirubin (0.0-1.0) mg/dL Direct Bilirubin (0.0-0.5) mg/dL AST (5-31) U/L ALT (0-31) U/L Alkaline Phosphatase (39-117) U/L B-Natriuretic Peptide (<100) pg/mL Total Protein (6.5-8.0) g/dL Albumin (3.5-5.0) g/dL COVID-19 ([facility]) (Negative) COVID-19 Clin Com Influenza Type A ([facility]) (Negative) Influenza Type B ([facility]) (Negative) Influenza A & B Note Imaging Data Chest x-ray: Radiologist's impression: FINDINGS: The lungs are well expanded. There is no focal consolidation, edema, or effusion. Diffuse bronchial wall thickening. No pneumothorax. The cardiomediastinal silhouette is within normal limits. No acute osseous abnormality. XR/XR chest 1V IMPRESSION: No dense consolidation. Bronchial wall thickening can be seen with a small airways process such as asthma or atypical/viral infection. Discharge Plan Discharge Clinical Impression: Asthma Patient Disposition: Admitted As Inpatient Prescriptions: No Action azithromycin 250 mg tablet See Rx Instructions .ROUTE .COMPLEX Qty: 6 0RF Rx Instructions: take 500 mg today (day 1), then 250 mg for 4 days (days 2-5) cyclobenzaprine 10 mg tablet 10 mg PO TID PRN (Reason: muscle spasm) Qty: 14 0RF acetaminophen [Tylenol] 325 mg tablet 650 mg PO Q6H PRN (Reason: fever or pain) Qty: 14 0RF cyclobenzaprine 10 mg tablet 10 mg PO TID PRN (Reason: muscle spasm) Qty: 30 0RF ondansetron HCl [Zofran] 4 mg tablet 4 mg PO Q8H PRN (Reason: nausea and vomiting) Qty: 10 0RF cephalexin 500 mg capsule 500 mg PO Q12H 5 Days Qty: 10 0RF cyclobenzaprine 10 mg tablet 10 mg PO Q8H Qty: 20 0RF oxycodone-acetaminophen [Percocet] 5-325 mg tablet 1 tab PO Q6H PRN (Reason: pain) Qty: 20 0RF cephalexin 500 mg capsule 500 mg PO QID 10 Days Qty: 40 0RF ondansetron 4 mg tablet,disintegrating 4 mg PO Q6-8H PRN (Reason: nausea and vomiting) Qty: 7 0RF doxycycline hyclate 100 mg tablet 100 mg PO BID Qty: 20 0RF
[2021-09-17 20:17] VITALS: TEMP 37.2; O2SAT 96
[2021-09-17 20:20] VITALS: BP 148/80; PULSE 95; RESP 18; TEMP 37.2; O2SAT 95
--- NOTE | 2021-09-17 20:20 | ECG_ITS ---
Test Reason : sob Blood Pressure : / mmHG Vent. Rate : 088 BPM Atrial Rate : 088 BPM P-R Int : 136 ms QRS Dur : 084 ms QT Int : 362 ms P-R-T Axes : 033 032 016 degrees QTc Int : 438 ms Normal sinus rhythm Normal ECG When compared with ECG of 08-JUL-2019 00:43, No significant change was found Referred By: Sapna Rider Electronically Signed By:Augustin Fried
[2021-09-17 20:51] LABS: MANUAL DIFF FLAG NO
[2021-09-17 20:56] LABS: Venous Blood Gas Refer to POC result
[2021-09-17 20:56] LABS: VBG Base Excess -0.6 mmol/L; VBG HCO3 23 mmol/L (22-26); VBG pCO2 34 mmHg; VBG pH 7.42 (7.32-7.43); VBG pO2 88 mmHg
[2021-09-17 20:57] LABS: Basophils Absolute Auto 0.1 X10*3/uL (0.0-0.2); Basophils Percent Auto 0.7 % (0-2); Eosinophils Percent Auto 6.2 % (0-4); Hemoglobin 13.1 g/dl (12.0-16.0); Imm Gran Abs Auto 0.06 X10*3/uL (0.00-0.03); Imm Gran Pct Auto 0.4 % (0.0-0.4); Lymphocytes Absolute Auto 2.6 X10*3/uL (1.2-4.9); Lymphocytes Percent Auto 15.5 % (20-40); Mean Corpuscular HGB Conc 33.6 g/dl (31.0-35.0); Mean Corpuscular Hemoglobin 28.4 pg (27.0-33.0); Mean Corpuscular Volume 84.6 fL (80.0-98.0); Mean Platelet Volume 10.2 fL (9.4-12.3); Monocytes Absolute Auto 0.8 X10*3/uL (0.1-1.2); Monocytes Percent Auto 5.1 % (2-11); Neutrophils Absolute Auto 11.9 x10*3/uL (2.0-8.3); Neutrophils Percent Auto 72.1 % (45-73); Platelet Count 313 X10*3/uL (160-400); Red Blood Count 4.61 X10*6/uL (4.20-5.50); Red Cell Distribution Width 15.5 % (11.0-16.0); White Blood Count 16.4 X10*3/uL (4.8-10.8)
[2021-09-17] MEDS: predniSONE 20 MG TABLET 60 MG PO (21:04)
[2021-09-17 21:09] LABS: COVID-19 Test Negative (Negative); IDNOW Serial# 55D5AD1C
[2021-09-17 21:11] LABS: Alanine Aminotransferase 36 U/L (0-31); Albumin Level 3.7 g/dL (3.5-5.0); Alkaline Phosphatase 139 U/L (39-117); Anion Gap 14 (12-20); Aspartate Amino Transferase 23 U/L (5-31); Bilirubin Direct 0.2 mg/dL (0.0-0.5); Bilirubin Total 0.5 mg/dL (0.0-1.0); Blood Urea Nitrogen 6 mg/dL (9-16); Calcium 9.4 mg/dL (8.4-10.2); Carbon Dioxide 25 mmol/L (22-29); Chloride 103 mmol/L (96-108); Creatinine Clr Calc Pharmacy 125.2; Estimated Glomerular Filt Rate > 60; Glucose Random 106 mg/dL (60-115); Potassium 4.5 mmol/L (3.3-5.1); Sodium 137 mmol/L (135-145); Total Protein 6.8 g/dL (6.5-8.0)
[2021-09-17 21:13] LABS: B Type Natriuretic Peptide 27 pg/mL (<100)
[2021-09-17 21:18] LABS: Influenza A Negative (Negative); Influenza B2 Negative (Negative)
[2021-09-17] MEDS: Ondansetron ODT 4 MG TAB.RAPDIS TRANSLINGU (22:46)
[2021-09-17] MEDS: Acetaminophen 325 MG TABLET 975 MG PO (22:46)
--- NOTE | 2021-09-17 23:22 | PC.NURSE ---
Patient is alert and oriented x3. She is able to make her needs known. Temp 99.1, P 86, BP 123/73. Lungs are clear. O2 Sat 95% RA, 93% RA with ambulation to restroom approximately 30 ft. Patient c/o headache and nausea-Tylenol 975 mg adm,administered for headache, Zofran 4 mf for nausea-effect pending.
[2021-09-17 23:28] VITALS: BP 123/73; PULSE 86; RESP 16; TEMP 37.2; O2SAT 94
[2021-09-17 23:39] LABS: D Dimer High Sensitivity < 150 NG/ML
[2021-09-18] VITALS (9 sets, daily range): BP systolic 113–148; BP diastolic 69–84; PULSE 77–84; RESP 15–24; TEMP 36.6–37.2; O2SAT 95–98
--- NOTE | 2021-09-18 00:08 | PC.NURSE ---
pt ambulated around unit by this EDT with steady gait and O2 monitoring. pt O2 saturation began at 97% on room air and upon ambulation patient saturation drops to 90-91%. upon repositioning in bed patient oxygen back up to 97% on room air. MD Rider made aware
--- NOTE | 2021-09-18 00:10 | PC.NURSE ---
Patient ambulated 500 ft, O2 Sat 88% on RA, dyspnea with exertion noted. Provider notified.
--- NOTE | 2021-09-18 00:13 | PM.IMHP ---
History of Present Illness Date of Service: 09/18/21 Chief Complaint: SOB 41-year-old female with a past medical history of asthma, depression, history of disc herniation; presented to the hospital today with a chief complaint of shortness of breath. Patient reported to the past 5 days she has been having shortness of breath which has been gradually worsening, no significant improvement with her home inhalers. Reports dry cough. Denies any fevers and chills. Denies any chest pain or palpitations. Denies any recent travel or sick contacts. Review of all other systems is negative except mentioned above ER course: Per ER team patient on presentation noted to be saturating 87%; noted wheezing; given nebulizations and steroids; patient becoming reasonably short of breath and tachypneic upon ambulation; decided to admit to the hospital for further management. [facility] Medical History (Updated 11/27/21 @ 23:36 by Steve Santoro MD) Asthma Depression Disc herniation H. pylori infection Migraine Sinus infection Surgical History History of Social History Alcohol intake: never Advance Directives: No Advance Directives Information Provided: Yes service: No Current occupational status: employed Meds Allergies Allergy/AdvReac Type Severity Reaction Status Date / Time promethazine [From PHENERGAN] Allergy Unknown ITCHING Verified 05/03/21 19:58 codeine [CODEINE] AdvReac Unknown STOMACH Verified 05/03/21 19:58 UPSET morphine [MORPHINE] AdvReac Unknown MORE PAIN Verified 05/03/21 19:58 Active Medications: Current Medications Magnesium Sulfate (Magnesium Sulfate/H2o) 2 gm in 50 mls @ 25 mls/hr IV ONCE ONE Stop: 09/18/21 02:01 Home Medications Medication Instructions Recorded Confirmed Last Taken Type albuterol sulfate 90 mcg/actuation 6 puff PO Q4H PRN wheezing 09/18/21 09/18/21 09/16/21 History aerosol inhaler (ProAir HFA) budesonide-formoterol HFA 160 1 puff PO BID 09/18/21 09/18/21 09/16/21 History mcg-4.5 mcg/actuation aerosol inhaler (Symbicort) gabapentin 400 mg capsule 1 cap PO BID 09/18/21 09/18/21 09/16/21 History hydroxyzine pamoate 50 mg capsule 50 mg PO DAILY 09/18/21 09/18/21 09/16/21 History hydroxyzine pamoate 50 mg capsule 100 mg PO BEDTIME 09/18/21 09/18/21 09/16/21 History ibuprofen 200 mg tablet (Advil) 400 mg PO Q6H PRN Pain 09/18/21 09/18/21 Unknown History omeprazole 20 mg tablet,delayed 20 mg PO DAILY 09/18/21 09/18/21 09/16/21 History release oxcarbazepine 300 mg tablet 1 tab PO BID 09/18/21 09/18/21 09/16/21 History paroxetine HCl 40 mg tablet 1 tab PO BEDTIME 09/18/21 09/18/21 09/16/21 History prazosin 5 mg capsule 1 cap PO BEDTIME 09/18/21 09/18/21 09/16/21 History riboflavin (vitamin B2) 100 mg 2 tab PO BID 09/18/21 09/18/21 09/16/21 History tablet (Vitamin B-2) sulindac 150 mg tablet 1 tab PO BID 09/18/21 09/18/21 09/16/21 History Physical Exam Vital Signs and Narrative: Vital Signs: Last Vital Signs Temp 99.0 F 09/18/21 00:05 Pulse 78 09/18/21 00:05 Resp 20 09/18/21 00:05 BP 148/75 H 09/18/21 00:05 Pulse Ox 97 09/18/21 00:05 BMI result Body Mass Index 54.5 Gen: Appears be in no acute distress HEENT: NCAT, Moist mucosa. Pulmonary: Bilateral wheezing present CVS: Normal S1-S2 Abdomen: BS+, Soft, Nontender Extremities: Warm well perfused Neuro: Alert and awake. Results Labs CBC and Chem 7: 09/18/21 06:58 09/18/21 06:58 Labs: Laboratory Results - last 24 hr 09/17/21 09/17/21 09/17/21 20:42 20:42 20:42 MCV 84.6 MCH 28.4 MCHC 33.6 RDW 15.5 Plt Count 313 MPV 10.2 Immature Gran % (Auto) 0.4 Neut % (Auto) 72.1 Lymph % (Auto) 15.5 L [place] % (Auto) 5.1 Eos % (Auto) 6.2 H Baso % (Auto) 0.7 Lymph # (Auto) 2.6 [place] # (Auto) 0.8 Eos # (Auto) 1.0 H Baso # (Auto) 0.1 Abs Immat Gran (auto) 0.06 H Absolute Neuts (auto) 11.9 H Absolute Nucleated RBC 0.000 Nucleated RBC % (auto) 0.0 D-Dimer High Sensitivty VBG pH VBG pCO2 VBG pO2 VBG HCO3 VBG O2 Saturation VBG Base Excess Anion Gap 14 Estim Creat Clear Calc 125.2 Estimated GFR > 60 Random Glucose 106 Calcium 9.4 Total Bilirubin 0.5 Direct Bilirubin 0.2 AST 23 ALT 36 H Alkaline Phosphatase 139 H D B-Natriuretic Peptide Total Protein 6.8 Albumin 3.7 COVID-19 ([facility]) COVID-[employer] Com Influenza Type A (KISHAN) Negative Influenza Type B (KISHAN) Negative Influenza A & B Note See Note 09/17/21 09/17/21 09/17/21 20:42 20:42 20:49 MCV MCH MCHC RDW Plt Count MPV Immature Gran % (Auto) Neut % (Auto) Lymph % (Auto) [place] % (Auto) Eos % (Auto) Baso % (Auto) Lymph # (Auto) [place] # (Auto) Eos # (Auto) Baso # (Auto) Abs Immat Gran (auto) Absolute Neuts (auto) Absolute Nucleated RBC Nucleated RBC % (auto) D-Dimer High Sensitivty VBG pH 7.42 VBG pCO2 34 VBG pO2 88 VBG HCO3 23 VBG O2 Saturation 96.0 VBG Base Excess -0.6 Anion Gap Estim Creat Clear Calc Estimated GFR Random Glucose Calcium Total Bilirubin Direct Bilirubin AST ALT Alkaline Phosphatase B-Natriuretic Peptide 27 Total Protein Albumin COVID-19 ([facility]) Negative COVID-19 [employer] Com See Note Influenza Type A (KISHAN) Influenza Type B (KISHAN) Influenza A & B Note 09/17/21 22:54 MCV MCH MCHC RDW Plt Count MPV Immature Gran % (Auto) Neut % (Auto) Lymph % (Auto) [place] % (Auto) Eos % (Auto) Baso % (Auto) Lymph # (Auto) [place] # (Auto) Eos # (Auto) Baso # (Auto) Abs Immat Gran (auto) Absolute Neuts (auto) Absolute Nucleated RBC Nucleated RBC % (auto) D-Dimer High Sensitivty < 150 VBG pH VBG pCO2 VBG pO2 VBG HCO3 VBG O2 Saturation VBG Base Excess Anion Gap Estim Creat Clear Calc Estimated GFR Random Glucose Calcium Total Bilirubin Direct Bilirubin AST ALT Alkaline Phosphatase B-Natriuretic Peptide Total Protein Albumin COVID-19 ([facility]) COVID-19 Clin Com Influenza Type A (KISHAN) Influenza Type B (KISHAN) Influenza A & B Note Imaging Radiologist's Impressions: Impressions Chest X-Ray 09/17/21 20:38 IMPRESSION: No dense consolidation. Bronchial wall thickening can be seen with a small airways process such as asthma or atypical/viral infection. Assessment and Plan (1) Asthma: Status: Acute Plan 41-year-old female with a past medical history of asthma, depression, history of disc herniation; presented to the hospital today with a chief complaint of shortness of breath. Noted to be in acute asthma exacerbation. Admitted for further management. Acute asthma exacerbation/hypoxia: Will give the patient Solu-Medrol IV q.i.d. Nebulizations standing and p.r.n. Supplemental oxygen p.r.n. Cough suppressants For all other chronic conditions, home medications will be continued DVT prophylaxis: Lovenox Code status: Full code Quality Stroke Does the patient have a stroke diagnosis?: No VTE Prior VTE?: No VTE Risk Level:: Medical - moderate - high VTE Device Contraindication: Treatment Not Indicated VTE Drug Contraindication: N/A - Med Ordered
[2021-09-18] MEDS: methylPREDNISolone Sod Succ 125 MG/2 ML VIAL IVPUSH (00:18)
[2021-09-18] MEDS: Magnesium Sulfate/H2O 2 GM/50 ML PIGGYBACK IV (00:18)
[2021-09-18] MEDS: Albuterol Sulfate (0.083%) 2.5 MG/3 ML VIAL.NEB 10 MG INHALE (00:54)
[2021-09-18] MEDS: LORazepam 0.5 MG TABLET PO (01:56)
[2021-09-18] MEDS: Enoxaparin Sodium 40 MG/0.4 ML SYRINGE SUBCUT (01:56)
[2021-09-18] MEDS: Acetaminophen 325 MG TABLET 650 MG PO (04:21)
[2021-09-18 07:07] LABS: MANUAL DIFF FLAG NO
[2021-09-18 07:09] LABS: Basophils Percent Auto 0.4 % (0-2); Eosinophils Percent Auto 0.2 % (0-4); Hematocrit 41.3 % (37.0-47.0); Hemoglobin 13.8 g/dl (12.0-16.0); Imm Gran Abs Auto 0.08 X10*3/uL (0.00-0.03); Imm Gran Pct Auto 0.7 % (0.0-0.4); Lymphocytes Absolute Auto 1.4 X10*3/uL (1.2-4.9); Lymphocytes Percent Auto 13.1 % (20-40); Mean Corpuscular HGB Conc 33.4 g/dl (31.0-35.0); Mean Corpuscular Hemoglobin 28.5 pg (27.0-33.0); Mean Corpuscular Volume 85.2 fL (80.0-98.0); Mean Platelet Volume 10.2 fL (9.4-12.3); Monocytes Absolute Auto 0.1 X10*3/uL (0.1-1.2); Monocytes Percent Auto 0.6 % (2-11); Neutrophils Absolute Auto 9.2 x10*3/uL (2.0-8.3); Platelet Count 338 X10*3/uL (160-400); Red Blood Count 4.85 X10*6/uL (4.20-5.50); Red Cell Distribution Width 15.5 % (11.0-16.0); White Blood Count 10.8 X10*3/uL (4.8-10.8)
[2021-09-18] MEDS: Albuterol/Iprat 2.5/0.5MG 3 ML AMPUL.NEB INHALE (07:10)
[2021-09-18 07:29] LABS: Anion Gap 15 (12-20); Blood Urea Nitrogen 6 mg/dL (9-16); Calcium 9.6 mg/dL (8.4-10.2); Carbon Dioxide 24 mmol/L (22-29); Chloride 102 mmol/L (96-108); Creatinine Clr Calc Pharmacy 130.6; Estimated Glomerular Filt Rate > 60; Glucose Random 147 mg/dL (60-115); Magnesium 2.6 mg/dL (1.6-2.6); Potassium 4.6 mmol/L (3.3-5.1); Sodium 136 mmol/L (135-145)
--- NOTE | 2021-09-18 08:36 | PM.DS ---
DS: Providers Provider Date of Service: 09/18/21 Date of admission: 09/18/21 00:11 Primary care physician: Tatum Magdaleno MD DS: Summary Hospital Course Hospital Course: Patient presented with shortness of breath and found to have acute exacerbation of asthma with some hypoxia, she was admtted overnight and treated with IV steroid, bronchodilators by Neb and improved rather quicker than expected, presently not Oxygen, no increase work of breathing lungs are clear, will dischrge with 5 more days of presnisone Time Spent with Patient Time attestation: Total time spent providing and/or coordinating discharge services: Discharge coordination time: Greater than 30 minutes Quality: Safe Use of Opioids Does Pt have an Active Cancer Diagnosis on the Problem List?: No Quality: Stroke Does the patient have a stroke diagnosis?: No Physical Exam Vital Signs: Vital Signs: Last Vital Signs Temp 97.8 F 09/18/21 07:02 Pulse 84 09/18/21 07:10 Resp 22 H 09/18/21 07:10 BP 113/69 09/18/21 07:02 Pulse Ox 98 09/18/21 07:02 BMI result Body Mass Index 54.5 Const: Other: General: AO X 3, no acute distress Resp: CTA bilateral CVS: S1,S2,RRR GI: +BS, NT, no distention Skin: No rash Neuro: motor grossly intact Psych: appropriate affect DS: Data Data Completed and Pending Labs on day of discharge: Laboratory Results - last 24 hr 09/17/21 09/17/21 09/17/21 20:42 20:42 20:42 WBC 16.4 H RBC 4.61 Hgb 13.1 Hct 39.0 MCV 84.6 MCH 28.4 MCHC 33.6 RDW 15.5 Plt Count 313 MPV 10.2 Immature Gran % (Auto) 0.4 Neut % (Auto) 72.1 Lymph % (Auto) 15.5 L [place] % (Auto) 5.1 Eos % (Auto) 6.2 H Baso % (Auto) 0.7 Lymph # (Auto) 2.6 [place] # (Auto) 0.8 Eos # (Auto) 1.0 H Baso # (Auto) 0.1 Abs Immat Gran (auto) 0.06 H Absolute Neuts (auto) 11.9 H Absolute Nucleated RBC 0.000 Nucleated RBC % (auto) 0.0 D-Dimer High Sensitivty VBG pH VBG pCO2 VBG pO2 VBG HCO3 VBG O2 Saturation VBG Base Excess Sodium 137 Potassium 4.5 Chloride 103 Carbon Dioxide 25 Anion Gap 14 BUN 6 L Creatinine 0.72 Estim Creat Clear Calc 125.2 Estimated GFR > 60 Random Glucose 106 Calcium 9.4 Magnesium Total Bilirubin 0.5 Direct Bilirubin 0.2 AST 23 ALT 36 H Alkaline Phosphatase 139 H D B-Natriuretic Peptide Total Protein 6.8 Albumin 3.7 COVID-19 ([facility]) COVID-19 Clin Com Influenza Type A (KISHAN) Negative Influenza Type B (KISHAN) Negative Influenza A & B Note See Note 09/17/21 09/17/21 09/17/21 20:42 20:42 20:49 WBC RBC Hgb Hct MCV MCH MCHC RDW Plt Count MPV Immature Gran % (Auto) Neut % (Auto) Lymph % (Auto) [place] % (Auto) Eos % (Auto) Baso % (Auto) Lymph # (Auto) [place] # (Auto) Eos # (Auto) Baso # (Auto) Abs Immat Gran (auto) Absolute Neuts (auto) Absolute Nucleated RBC Nucleated RBC % (auto) D-Dimer High Sensitivty VBG pH 7.42 VBG pCO2 34 VBG pO2 88 VBG HCO3 23 VBG O2 Saturation 96.0 VBG Base Excess -0.6 Sodium Potassium Chloride Carbon Dioxide Anion Gap BUN Creatinine Estim Creat Clear Calc Estimated GFR Random Glucose Calcium Magnesium Total Bilirubin Direct Bilirubin AST ALT Alkaline Phosphatase B-Natriuretic Peptide 27 Total Protein Albumin COVID-19 ([facility]) Negative COVID-19 Clin Com See Note Influenza Type A (KISHAN) Influenza Type B (KISHAN) Influenza A & B Note 09/17/21 09/18/21 09/18/21 22:54 06:58 06:58 WBC 10.8 RBC 4.85 Hgb 13.8 Hct 41.3 MCV 85.2 MCH 28.5 MCHC 33.4 RDW 15.5 Plt Count 338 MPV 10.2 Immature Gran % (Auto) 0.7 H Neut % (Auto) 85.0 H Lymph % (Auto) 13.1 L [place] % (Auto) 0.6 L Eos % (Auto) 0.2 Baso % (Auto) 0.4 Lymph # (Auto) 1.4 [place] # (Auto) 0.1 Eos # (Auto) 0.0 Baso # (Auto) 0.0 Abs Immat Gran (auto) 0.08 H Absolute Neuts (auto) 9.2 H Absolute Nucleated RBC 0.000 Nucleated RBC % (auto) 0.0 D-Dimer High Sensitivty < 150 VBG pH VBG pCO2 VBG pO2 VBG HCO3 VBG O2 Saturation VBG Base Excess Sodium 136 Potassium 4.6 Chloride 102 Carbon Dioxide 24 Anion Gap 15 BUN 6 L Creatinine 0.69 Estim Creat Clear Calc 130.6 Estimated GFR > 60 Random Glucose 147 H Calcium 9.6 Magnesium 2.6 Total Bilirubin Direct Bilirubin AST ALT Alkaline Phosphatase B-Natriuretic Peptide Total Protein Albumin COVID-19 ([facility]) COVID-19 Clin Com Influenza Type A (KISHAN) Influenza Type B (KISHAN) Influenza A & B Note Discharge Plan Discharge Anticipated Discharge Date/Time: 09/18/21 08:33 Patient Disposition: Home, Self-Care Discharge Diagnosis: Acute exacerbation of asthma Referrals: Tatum Magdaleno MD [Primary Care Provider] - 1 Week Discharge Medications: New prednisone 20 mg tablet 40 mg PO DAILY 5 Days Qty: 10 0RF Continued acetaminophen [Tylenol] 325 mg tablet 650 mg PO Q6H PRN (Reason: fever or pain) Qty: 14 0RF cyclobenzaprine 10 mg tablet 10 mg PO Q8H Qty: 20 0RF oxycodone-acetaminophen [Percocet] 5-325 mg tablet 1 tab PO Q6H PRN (Reason: pain) Qty: 20 0RF ondansetron 4 mg tablet,disintegrating 4 mg PO Q6-8H PRN (Reason: nausea and vomiting) Qty: 7 0RF doxycycline hyclate 100 mg tablet 100 mg PO BID Qty: 20 0RF riboflavin (vitamin B2) [Vitamin B-2] 100 mg tablet 2 tab PO BID 0RF gabapentin 400 mg capsule 1 cap PO BID 0RF hydroxyzine pamoate 50 mg capsule 50 mg PO DAILY 0RF hydroxyzine pamoate 50 mg capsule 100 mg PO BEDTIME 0RF sulindac 150 mg tablet 1 tab PO BID 0RF oxcarbazepine 300 mg tablet 1 tab PO BID 0RF prazosin 5 mg capsule 1 cap PO BEDTIME 0RF nicotine (polacrilex) 4 mg gum 1 gum PO Q2H 0RF paroxetine HCl 40 mg tablet 1 tab PO BEDTIME 0RF dicyclomine 10 mg capsule 2 cap PO QID 0RF Diet: advance to usual diet Activity on Discharge: As tolerated Stand Alone Forms: Patient Portal Discharge page Care Plan Goals: Full recovry from asthma Health Concerns: Asthma Plan of Treatment: Use inhalers as usual, take Prednsoe as directed and follow up with your Doctor in a week, call for appointment Assessment: As above
--- NOTE | 2021-09-18 10:20 | MHC.CM.PN ---
PATIENT LIVES WITH [facility]/HCP COPY OF DOCUMENT ON FILE AT PCP OFFICE AND REQUESTED. PATIENT RELIES ON INHALERS NO CANE OR WALKER FULLY INDEPENDENT. SHE HAS BEEN COVID VACCINATED BUT DOES NOT RECALL THE BRAND OR DATES [facility] WILL PROVIDE TRANSPORT HOME AT TIME OF DISCHARGE ASSESSMENT PERFORMED WITH ASSIST OF PANTOGRAPH OPERATOR
--- NOTE | 2021-09-18 10:24 | PHA.MEDREC ---
Pharmacy Consult ? Medication Reconciliation Pharmacy has completed the medication reconciliation. Patient reported all medications. Alexandria Brewster, SarahD
[2021-09-18] MEDS: methylPREDNISolone Sod Succ 40 MG/ML VIAL IVPUSH (10:33)
[2021-09-18] MEDS: 0.9 % Sodium Chloride Flush 3 ML SYRINGE IVFLUSH (10:34)
--- NOTE | 2021-09-18 11:13 | MHC.CM.PN ---
PT WILL DC HOME TODAY WITH NO SERVICES
[2021-09-18] MEDS: Butalb/Acetamin/Caff 50/325/40 TABLET 1 TAB PO (11:34)
[2021-09-18] MEDS: Ondansetron ODT 4 MG TAB.RAPDIS TRANSLINGU (11:35)
--- NOTE | 2021-09-18 11:35 | PC.NURSE ---
Pt c/o RAMÍREZ and nausea but orders to discharge home. MD at bedside with battery tester and repairer with this RN to discuss plan to medicate for RAMÍREZ and nausea then DC home.
== END 2021-09-18 12:31 | disposition home or self-care (01) | DRG 141 ==
LOC: HO.ED 09-18 00:12 → HO.EDOVER 09-18 00:30
PROVIDERS: Admitting Provider Hospitalist; Emergency Provider Emergency Medicine; PCP Family Medicine; Visit Provider Internal Medicine
DX: J45.901 Unspecified asthma with (acute) exacerbation (principal); F32.A Depression, unspecified; R09.02 Hypoxemia; Z20.822 Contact with and (suspected) exposure to COVID-19; Z79.52 Long term (current) use of systemic steroids; Z88.5 Allergy status to narcotic agent; Z88.8 Allergy status to other drugs, medicaments and biological substances; Z79.899 Other long term (current) drug therapy
CPT/HCPCS: 36415; 71045; 80048; 80076; 82803; 83735; 83880; 85025; 85379; 87502; 87635; 93005; 94640; 96365; 96366; 96375; 99219; 99285; J1650; J2920; J2930; J3475

== ENCOUNTER 2021-12-10 01:47 | Emergency (ER) | payer OTHER, SELFPAY ==
--- NOTE | ~2021-12-10 | CT_ITS ---
EXAMINATION: CT ABDOMEN AND PELVIS WITHOUT CONTRAST CLINICAL INFORMATION: Mid abdominal pain COMPARISON: 11/18/2019 TECHNIQUE: Multidetector volumetric imaging was performed from the superior aspect of the liver through the pubic symphysis. Sagittal and coronal reformatted images were obtained on the technologist's workstation. This CT examination was performed using dose optimization techniques as appropriate, variously including the following: *Automated exposure control *Adjustment of mA and/or kV according to patient size (this includes techniques or standardized protocols for targeted exams where dose is matched to indication/reason for exam; i.e. extremities or head) *Use of iterative reconstruction technique DLP: 1022 mGy-cm FINDINGS: LUNG BASES: The visualized lung bases are unremarkable. LIVER, GALLBLADDER, AND BILIARY TREE: The liver is normal in size, shape, and attenuation. No focal hepatic lesion or biliary ductal dilatation is present. Cholecystectomy. PANCREAS: Unremarkable. SPLEEN: Unremarkable. ADRENAL GLANDS: Unremarkable. KIDNEYS AND URETERS: The kidneys are normal in size, shape, and attenuation. No hydronephrosis, hydroureter, or calculi seen. No perinephric stranding. BLADDER: Unremarkable. GASTROINTESTINAL TRACT: The stomach is unremarkable. Normal caliber small bowel. No obstruction. Normal appendix. No colonic wall thickening or acute inflammatory changes. No free air or free fluid. ABDOMINAL WALL: No significant hernia is appreciated. LYMPH NODES: Normal. VASCULAR: Normal caliber aorta. PELVIC VISCERA: The uterus and adnexa are unremarkable. OSSEOUS STRUCTURES: No acute or suspicious osseous abnormality. Mild disc space narrowing of L4-L5 with vacuum disc phenomenon. CT/CT abdomen pelvis wo con IMPRESSION: No acute findings in the abdomen or pelvis. No inflammatory changes. Fleischner guidelines were followed.
--- NOTE | ~2021-12-10 | XR_ITS ---
EXAMINATION: XR CHEST CLINICAL INFORMATION: Epigastric pain COMPARISON: 09/17/2021 TECHNIQUE: 2 views of the chest were obtained. FINDINGS: The lungs are well expanded. There is no focal consolidation or effusion. Central vascular prominence without overt edema. No pneumothorax. The cardiomediastinal silhouette is within normal limits. No acute osseous abnormality. XR/XR chest 2V IMPRESSION: Central vascular prominence without overt edema. No consolidation.
[2021-12-10 01:52] VITALS: BP 105/55; PULSE 95; RESP 18; TEMP 36.1; O2SAT 95; BMI 42.7
--- NOTE | 2021-12-10 02:02 | ECG_ITS ---
Test Reason : chest pain /dizziness Blood Pressure : / mmHG Vent. Rate : 090 BPM Atrial Rate : 090 BPM P-R Int : 126 ms QRS Dur : 084 ms QT Int : 366 ms P-R-T Axes : 045 023 015 degrees QTc Int : 447 ms Normal sinus rhythm Normal ECG When compared with ECG of 17-SEP-2021 20:43, No significant change was found Referred By: Generic ED Physician Electronically Signed By:DUSTY DILLARD
[2021-12-10 02:21] LABS: Basophils Absolute Auto 0.1 X10*3/uL (0.0-0.2); Basophils Percent Auto 0.7 % (0-2); Eosinophils Absolute Auto 0.8 X10*3/uL (0.0-0.4); Eosinophils Percent Auto 5.6 % (0-4); Hemoglobin 12.9 g/dl (12.0-16.0); Imm Gran Abs Auto 0.08 X10*3/uL (0.00-0.03); Imm Gran Pct Auto 0.5 % (0.0-0.4); Lymphocytes Absolute Auto 5.3 X10*3/uL (1.2-4.9); Lymphocytes Percent Auto 35.4 % (20-40); MANUAL DIFF FLAG SCAN; Mean Corpuscular HGB Conc 33.1 g/dl (31.0-35.0); Mean Corpuscular Hemoglobin 27.7 pg (27.0-33.0); Mean Corpuscular Volume 83.9 fL (80.0-98.0); Mean Platelet Volume 9.6 fL (9.4-12.3); Monocytes Percent Auto 6.5 % (2-11); NRBC Pct Auto 0.2 /100WBC (0.0-0.2); Neutrophils Absolute Auto 7.6 x10*3/uL (2.0-8.3); Neutrophils Percent Auto 51.3 % (45-73); Platelet Count 407 X10*3/uL (160-400); Red Blood Count 4.65 X10*6/uL (4.20-5.50); Red Cell Distribution Width 14.5 % (11.0-16.0); SCAN SMEAR FLAG 1; White Blood Count 14.9 X10*3/uL (4.8-10.8)
[2021-12-10 02:30] LABS: Appearance Urine Clear; Color Urine Yellow; Glucose Urine UA Negative (Negative); Leukocyte Esterase Urine Negative (Negative); Nitrite Urine Negative (Negative); Urine Blood Negative (Negative); Urine Ketones Negative (Negative); Urine Protein Negative (Neg-Trace)
[2021-12-10 02:35] LABS: UPreg QC Valid YES; Urine Pregnancy NEGATIVE (NEGATIVE)
[2021-12-10 02:37] LABS: Anion Gap 15 (12-20); Blood Urea Nitrogen 17 mg/dL (9-16); Calcium 8.2 mg/dL (8.4-10.2); Carbon Dioxide 23 mmol/L (22-29); Chloride 102 mmol/L (96-108); Creatinine Clr Calc Pharmacy 69.5; Estimated Glomerular Filt Rate 51; Glucose Random 105 mg/dL (60-115); Potassium 4.9 mmol/L (3.3-5.1); Sodium 135 mmol/L (135-145)
[2021-12-10 02:38] LABS: COVID-19 Test Negative (Negative)
[2021-12-10 02:45] LABS: SLIDE REVIEW VERIFIED
[2021-12-10 02:46] LABS: Troponin-I High Sensitivity < 3.5 ng/L (<3.5-17.0)
[2021-12-10 04:58] LABS: Alanine Aminotransferase 22 U/L (0-31); Albumin Level 3.4 g/dL (3.5-5.0); Alkaline Phosphatase 110 U/L (39-117); Aspartate Amino Transferase 17 U/L (5-31); Bilirubin Direct < 0.2 mg/dL (0.0-0.5); Bilirubin Total < 0.2 mg/dL (0.0-1.0); Lipase 12 U/L (8-78); Total Protein 6.4 g/dL (6.5-8.0)
[2021-12-10] MEDS: Lidocaine HCl Viscous 2 % 15 ML SOLUTION 10 ML MUCOUS MEM (05:31)
[2021-12-10] MEDS: Magnesium Hydrox/Alum Hydrox 30 ML ORAL.SUSP PO (05:32)
[2021-12-10 06:13] VITALS: BP 130/69; PULSE 83; RESP 16; TEMP 36.6; O2SAT 98
--- NOTE | 2021-12-10 06:13 | ED_ITS ---
HPI - Abdominal Pain General Chief Complaint: Abdominal Pain Stated Complaint: abdominal pain, dizzy Time Seen by Provider: 12/10/21 04:31 Source: patient Mode of arrival: ambulatory History of Present Illness HPI narrative: 41-year-old female with history of H pylori and gastritis who presents with acute onset of epigastric discomfort at approximately 01:30 in the morning and denies that this was not associated with any fever, chills, diarrhea, urinary symptoms. Patient states that the pain extends across the bottom of her ribs. Patient denies any new cough, sore throat and denies any dizziness/headache/diaphoresis. Related Data Home Medications Medication Instructions Recorded Confirmed albuterol sulfate 90 mcg/actuation 6 puff PO Q4H PRN wheezing 09/18/21 09/18/21 aerosol inhaler (ProAir HFA) budesonide-formoterol HFA 160 1 puff PO BID 09/18/21 09/18/21 mcg-4.5 mcg/actuation aerosol inhaler (Symbicort) gabapentin 400 mg capsule 1 cap PO BID 09/18/21 09/18/21 hydroxyzine pamoate 50 mg capsule 50 mg PO DAILY 09/18/21 09/18/21 hydroxyzine pamoate 50 mg capsule 100 mg PO BEDTIME 09/18/21 09/18/21 ibuprofen 200 mg tablet (Advil) 400 mg PO Q6H PRN Pain 09/18/21 09/18/21 omeprazole 20 mg tablet,delayed 20 mg PO DAILY 09/18/21 09/18/21 release oxcarbazepine 300 mg tablet 1 tab PO BID 09/18/21 09/18/21 paroxetine HCl 40 mg tablet 1 tab PO BEDTIME 09/18/21 09/18/21 prazosin 5 mg capsule 1 cap PO BEDTIME 09/18/21 09/18/21 riboflavin (vitamin B2) 100 mg 2 tab PO BID 09/18/21 09/18/21 tablet (Vitamin B-2) sulindac 150 mg tablet 1 tab PO BID 09/18/21 09/18/21 Previous Rx's Medication Instructions Recorded acetaminophen 325 mg tablet 650 mg PO Q6H PRN fever or pain 02/13/20 (Tylenol) #14 tabs kioowqilcz-lbinokyrjqtcb-qagbogda 1 cap PO Q8H PRN migraine headache 05/27/22 50 mg-300 mg-40 mg capsule #10 caps (Fioricet) prednisone 20 mg tablet 40 mg PO DAILY 5 days #10 tabs 09/18/21 Allergies Allergy/AdvReac Type Severity Reaction Status Date / Time promethazine [From PHENERGAN] Allergy Unknown ITCHING Verified 12/10/21 01:52 codeine [CODEINE] AdvReac Unknown STOMACH Verified 12/10/21 01:52 UPSET morphine [MORPHINE] AdvReac Unknown MORE PAIN Verified 12/10/21 01:52 Review of Systems Review of Systems Pertinent positives and negatives as stated in HPI 10 point review of systems is otherwise negative. [facility] Past Medical History Source: nursing notes reviewed Medical History Asthma Depression Disc herniation H. pylori infection Migraine Sinus infection Surgical History History of Social History Social History Alcohol intake: never Advance Directives: No service: No Current occupational status: employed Physical Exam ED Vital Signs: Vital Signs - 24 hr 12/10/21 01:52 12/10/21 06:13 Temperature 97.0 F 97.8 F Pulse Rate 95 83 Respiratory Rate 18 16 Blood Pressure 105/55 L 130/69 Pulse Oximetry 95 98 Oxygen Delivery Method Room Air Room Air BMI result Body Mass Index 42.7 VITAL SIGNS: Reviewed. GENERAL: Elevated BMI Well developed, well nourished, in no acute distress. HEAD: Normocephalic/atraumatic EYES: PERRLA, EOMI EARS: Ext canals without abnormality OROPHARYNX: no oral lesions noted, posterior pharynx clear LUNGS: Normal breath sounds. No adventitious sounds or accessory muscle use. SpO2<95> CARDIOVASCULAR: Regular rate and rhythm without noted murmurs, no JVD or lower extremity edema. ABDOMEN: Soft, discomfort on palpation epigastric without rebound, non-distended with bowel sounds. MUSCULOSKELETAL: No tenderness, deformities, or effusions noted on gross inspection. EXTREMITIES: No cyanosis, clubbing or edema. SKIN: Inspection of the skin reveals no rashes NEUROLOGIC: Alert and oriented x 4. Strength and sensation to light touch were grossly intact x 4. Course Course Course Narrative: 41-year-old female with history and clinical presentation most consistent with suspected pancreatitis, gastritis but patient is status post cholecystectomy so that does not appear to be an option at this time. On review of all investigations there are no acute findings and although there is a leukocytosis this is felt to be reactive and stress related as there are no other historical or clinical findings. Patient was informed of all results and discharged home in stable condition. MDM - Abdominal Pain Lab Data Result diagrams: 12/10/21 02:12 12/10/21 02:12 Labs: Lab Results 12/10/21 12/10/21 12/10/21 Range/Units 02:12 02:12 02:12 WBC 14.9 H (4.8-10.8) X10*3/uL RBC 4.65 (4.20-5.50) X10*6/uL Hgb 12.9 (12.0-16.0) g/dl Hct 39.0 (37.0-47.0) % MCV 83.9 (80.0-98.0) fL MCH 27.7 (27.0-33.0) pg MCHC 33.1 (31.0-35.0) g/dl RDW 14.5 (11.0-16.0) % Plt Count 407 H (160-400) X10*3/uL MPV 9.6 (9.4-12.3) fL Immature Gran % (Auto) 0.5 H (0.0-0.4) % Neut % (Auto) 51.3 (45-73) % Lymph % (Auto) 35.4 (20-40) % [place] % (Auto) 6.5 (2-11) % Eos % (Auto) 5.6 H (0-4) % Baso % (Auto) 0.7 (0-2) % Lymph # (Auto) 5.3 H (1.2-4.9) X10*3/uL [place] # (Auto) 1.0 (0.1-1.2) X10*3/uL Eos # (Auto) 0.8 H (0.0-0.4) X10*3/uL Baso # (Auto) 0.1 (0.0-0.2) X10*3/uL Abs Immat Gran (auto) 0.08 H (0.00-0.03) X10*3/uL Absolute Neuts (auto) 7.6 (2.0-8.3) x10*3/uL Absolute Nucleated RBC 0.030 H (0.0-0.012) X10*3/uL Nucleated RBC % (auto) 0.2 (0.0-0.2) /100WBC Smear Tech's Comments VERIFIED Sodium 135 (135-145) mmol/L Potassium 4.9 (3.3-5.1) mmol/L Chloride 102 (96-108) mmol/L Carbon Dioxide 23 (22-29) mmol/L Anion Gap 15 (12-20) BUN 17 H D (9-16) mg/dL Creatinine 1.16 (0.5-1.4) mg/dL Estim Creat Clear Calc 69.5 Estimated GFR 51 Random Glucose 105 (60-115) mg/dL Calcium 8.2 L D (8.4-10.2) mg/dL Total Bilirubin < 0.2 (0.0-1.0) mg/dL Direct Bilirubin < 0.2 (0.0-0.5) mg/dL AST 17 (5-31) U/L ALT 22 (0-31) U/L Alkaline Phosphatase 110 D (39-117) U/L Troponin I High Sens (<3.5-17.0) ng/L Total Protein 6.4 L (6.5-8.0) g/dL Albumin 3.4 L (3.5-5.0) g/dL Lipase 12 (8-78) U/L Urine Color Urine Appearance Urine pH (5.0-8.0) Ur Specific [place] (1.005-1.025) Urine Protein (Neg-Trace) mg/dL Urine Glucose (UA) (Negative) mg/dL Urine Ketones (Negative) mg/dL Urine Blood (Negative) Urine Nitrite (Negative) Ur Leukocyte Esterase (Negative) Urine Test (NEGATIVE) COVID-19 ([facility]) Negative (Negative) COVID-19 Clin Com See Note 12/10/21 12/10/21 12/10/21 Range/Units 02:12 02:19 02:19 WBC (4.8-10.8) X10*3/uL RBC (4.20-5.50) X10*6/uL Hgb (12.0-16.0) g/dl Hct (37.0-47.0) % MCV (80.0-98.0) fL MCH (27.0-33.0) pg MCHC (31.0-35.0) g/dl RDW (11.0-16.0) % Plt Count (160-400) X10*3/uL MPV (9.4-12.3) fL Immature Gran % (Auto) (0.0-0.4) % Neut % (Auto) (45-73) % Lymph % (Auto) (20-40) % [place] % (Auto) (2-11) % Eos % (Auto) (0-4) % Baso % (Auto) (0-2) % Lymph # (Auto) (1.2-4.9) X10*3/uL [place] # (Auto) (0.1-1.2) X10*3/uL Eos # (Auto) (0.0-0.4) X10*3/uL Baso # (Auto) (0.0-0.2) X10*3/uL Abs Immat Gran (auto) (0.00-0.03) X10*3/uL Absolute Neuts (auto) (2.0-8.3) x10*3/uL Absolute Nucleated RBC (0.0-0.012) X10*3/uL Nucleated RBC % (auto) (0.0-0.2) /100WBC Smear Tech's Comments Sodium (135-145) mmol/L Potassium (3.3-5.1) mmol/L Chloride (96-108) mmol/L Carbon Dioxide (22-29) mmol/L Anion Gap (12-20) BUN (9-16) mg/dL Creatinine (0.5-1.4) mg/dL Estim Creat Clear Calc Estimated GFR Random Glucose (60-115) mg/dL Calcium (8.4-10.2) mg/dL Total Bilirubin (0.0-1.0) mg/dL Direct Bilirubin (0.0-0.5) mg/dL AST (5-31) U/L ALT (0-31) U/L Alkaline Phosphatase (39-117) U/L Troponin I High Sens < 3.5 (<3.5-17.0) ng/L Total Protein (6.5-8.0) g/dL Albumin (3.5-5.0) g/dL Lipase (8-78) U/L Urine Color Yellow Urine Appearance Clear Urine pH 6.0 (5.0-8.0) Ur Specific [place] 1.020 (1.005-1.025) Urine Protein Negative (Neg-Trace) mg/dL Urine Glucose (UA) Negative (Negative) mg/dL Urine Ketones Negative (Negative) mg/dL Urine Blood Negative (Negative) Urine Nitrite Negative (Negative) Ur Leukocyte Esterase Negative (Negative) Urine Test NEGATIVE (NEGATIVE) COVID-19 ([facility]) (Negative) COVID-19 Clin Com Discharge Plan Discharge Clinical Impression: Abdominal pain, Gastritis Patient Disposition: Home, Self-Care Instructions: Gastritis (ED), Diet for Stomach Ulcers and Gastritis (ED), Abdominal Pain (ED) Additional Instructions: 1. Reanudar todos los medicamentos caseros seg?n lo prescrito. 2. Utilice Mylanta de venta aimee antes de cada comida. 3. Julius un seguimiento con josue proveedor de atenci?n primaria en los pr?ximos 1 o 2 d?as. Regrese a la lyndsey de emergencias si los s?ntomas empeoran. Prescriptions: No Action acetaminophen [Tylenol] 325 mg tablet 650 mg PO Q6H PRN (Reason: fever or pain) Qty: 14 0RF riboflavin (vitamin B2) [Vitamin B-2] 100 mg tablet 2 tab PO BID gabapentin 400 mg capsule 1 cap PO BID hydroxyzine pamoate 50 mg capsule 50 mg PO DAILY hydroxyzine pamoate 50 mg capsule 100 mg PO BEDTIME sulindac 150 mg tablet 1 tab PO BID oxcarbazepine 300 mg tablet 1 tab PO BID prazosin 5 mg capsule 1 cap PO BEDTIME paroxetine HCl 40 mg tablet 1 tab PO BEDTIME prednisone 20 mg tablet 40 mg PO DAILY 5 Days Qty: 10 0RF ibuprofen [Advil] 200 mg Tablet 400 mg PO Q6H PRN (Reason: Pain) albuterol sulfate [ProAir HFA] 90 mcg/actuation HFA aerosol inhaler 6 puff PO Q4H PRN (Reason: wheezing) budesonide-formoterol [Symbicort] 160-4.5 mcg/actuation HFA aerosol inhaler 1 puff PO BID omeprazole 20 mg Tablet,Delayed Release (Dr/Ec) 20 mg PO DAILY ymcaweibqg-xbwkkmspywxng-dmtz [Fioricet] 50-300-40 mg capsule 1 cap PO Q8H PRN (Reason: migraine headache) Qty: 10 0RF Referrals: Tatum Magdaleno MD [Primary Care Provider] - Stand Alone Forms: Work/School Release Print Language: Kenyan
== END 2021-12-10 06:45 | disposition home or self-care (01) ==
PROVIDERS: Emergency Provider Student in an Organized Health Care Education/Training Program; PCP Family Medicine
DX: K29.70 Gastritis, unspecified, without bleeding (principal); R10.13 Epigastric pain; Z20.822 Contact with and (suspected) exposure to COVID-19
CPT/HCPCS: 36415; 71046; 74176; 80048; 80076; 81003; 81025; 83690; 84484; 85025; 87635; 93005; 99284

== ENCOUNTER 2022-01-04 09:14 | Emergency (ER) | payer OTHER, SELFPAY ==
[2022-01-04 09:24] VITALS: BP 131/86; PULSE 114; RESP 16; TEMP 36.1; O2SAT 97; BMI 39.6
--- NOTE | 2022-01-04 10:13 | ED.BACK ---
HPI - Back Pain/Injury General Chief Complaint: Back Pain/Injury Stated Complaint: back pain Time Seen by Provider: 01/04/22 09:46 Source: patient Mode of arrival: ambulatory Limitations: language barrier (Setswana-speaking nurses medical assistants phlebotomists utilized) History of Present Illness HPI Narrative: Patient presents emergency department for evaluation of diffuse lower back pain with radiation down the bilateral legs. She has had history of chronic back pain presenting this way since the age of 17, reportedly due to herniated discs. She states that she has received injections in the past but due to her age she is no longer able to receive them. Today, she began a new job at [employer]. She states that with prolonged standing it typically exacerbates her back pain. She was scheduled for long shift today, and her pain was made worse while standing at work. Therefore she came to the emergency department for further evaluation and treatment. She trialed Advil this morning without any significant improvement. Denies recent precipitating injury, fevers, chills, burning with micturition, urinary frequency/urgency/hesitancy, bladder or bowel dysfunction, numbness or tingling of the perineum or bilateral legs. Denies any recent surgical procedures, any known immune compromising conditions, personal history of cancer, or IV drug usage. MD elicited complaint: back pain Related Data Home Medications Medication Instructions Recorded Confirmed albuterol sulfate 90 mcg/actuation 6 puff PO Q4H PRN wheezing 09/18/21 09/18/21 aerosol inhaler (ProAir HFA) budesonide-formoterol HFA 160 1 puff PO BID 09/18/21 09/18/21 mcg-4.5 mcg/actuation aerosol inhaler (Symbicort) gabapentin 400 mg capsule 1 cap PO BID 09/18/21 09/18/21 hydroxyzine pamoate 50 mg capsule 50 mg PO DAILY 09/18/21 09/18/21 hydroxyzine pamoate 50 mg capsule 100 mg PO BEDTIME 09/18/21 09/18/21 ibuprofen 200 mg tablet (Advil) 400 mg PO Q6H PRN Pain 09/18/21 09/18/21 omeprazole 20 mg tablet,delayed 20 mg PO DAILY 09/18/21 09/18/21 release oxcarbazepine 300 mg tablet 1 tab PO BID 09/18/21 09/18/21 paroxetine HCl 40 mg tablet 1 tab PO BEDTIME 09/18/21 09/18/21 prazosin 5 mg capsule 1 cap PO BEDTIME 09/18/21 09/18/21 riboflavin (vitamin B2) 100 mg 2 tab PO BID 09/18/21 09/18/21 tablet (Vitamin B-2) sulindac 150 mg tablet 1 tab PO BID 09/18/21 09/18/21 Previous Rx's Medication Instructions Recorded acetaminophen 325 mg tablet 650 mg PO Q6H PRN fever or pain 02/13/20 (Tylenol) #14 tabs ixgafqlslm-buywqkmjosjyp-hisqpkwi 1 cap PO Q8H PRN migraine headache 09/18/21 50 mg-300 mg-40 mg capsule #10 caps (Fioricet) prednisone 20 mg tablet 40 mg PO DAILY 5 days #10 tabs 09/18/21 cyclobenzaprine 10 mg tablet 10 mg PO TID PRN muscle spasm #14 01/04/22 tabs Allergies Allergy/AdvReac Type Severity Reaction Status Date / Time promethazine [From PHENERGAN] Allergy Unknown ITCHING Verified 12/10/21 01:52 codeine [CODEINE] AdvReac Unknown STOMACH Verified 12/10/21 01:52 UPSET morphine [MORPHINE] AdvReac Unknown MORE PAIN Verified 12/10/21 01:52 Review of Systems Review of Systems: Constitutional: No weight loss, fever, chills, weakness or fatigue. HEENT: No visual loss, blurred vision, double vision. No hearing loss, sneezing, congestion, runny nose or sore throat. Skin: No rash or itching. Cardiovascular: No chest pain, chest pressure or chest discomfort. No palpitations or pedal edema. Respiratory: No shortness of breath, cough or sputum production. Gastrointestinal: No anorexia, nausea, vomiting or diarrhea. No abdominal pain or blood in stool. Genitourinary: No burning micturition. No urinary frequency or incontinence. Neurologic: No headache, dizziness, syncope, unilateral weakness, ataxia, numbness or tingling in the extremities. No change in bowel or bladder control. Musculoskeletal: + Back pain as noted in HPI. No joint pain or stiffness. Hematologic: No bleeding or bruising. Lymphatics: No enlarged lymph nodes. Psychiatric:No depression or anxiety. Endocrine: No reports of sweating. No cold or heat intolerance. No polyuria or polydipsia. Yes all other systems are reviewed and are negative [facility] Past Medical History Attestation statement: The following information was validated with the patient. Source: old records reviewed Medical History Asthma Depression Disc herniation H. pylori infection Migraine Sinus infection Surgical History History of Social History Social History Alcohol intake: never Advance Directives: No Advance Directives Information Provided: No service: No Current occupational status: employed Physical Exam Vital Signs: Vital Signs: Last Vital Signs Temp 96.9 F 01/04/22 09:24 Pulse 114 H 01/04/22 09:24 Resp 16 01/04/22 09:24 BP 131/86 01/04/22 09:24 Pulse Ox 97 01/04/22 09:24 O2 Del Method 01/04/22 09:24 BMI result Body Mass Index 39.6 Vital signs have been reviewed as normal and appeared to be correct. Blood pressure normal.? Heart rate normal.? Respiration rate normal. Temperature normal.? Oxygen saturation normal. Appearance: Alert.?Oriented to person, place and time. No acute distress.?Normal affect. Eyes: Pupils equal, round and reactive to light.? ENT: Pharynx normal.?? Neck: Normal inspection.? Neck supple.?? CVS: Heart sounds normal. Normal heart rate and rhythm.? Pulses normal; bilateral radial pulses 2+, bilateral posterior tibial/dorsalis pedis pulses 2+.? Respiratory: No respiratory distress.? Lung sounds clear to auscultation bilaterally?? Abdomen: Soft and non-tender. Normoactive bowel sounds. No pulsatile mass.?? Skin: Skin warm and dry.? Normal skin color.? Normal skin turgor.?? Extremities: No lower extremity edema.? No calf ttp? Back: + mild paraspinal muscular tenderness from lumbar region to coccyx. No CVA tenderness. No midline spinal tenderness, step-off's, or deformity. Full ROM intact in bilateral lower extremities. Straight leg test positive on right; Straight leg test positive on left. No rashes, lesions, areas of induration or fluctuance, or signs of infection noted. Neuro: Moves all extremities spontaneously. 5/5 strength in hip extension/flexion, abduction, adduction. Sensation to light touch intact bilaterally. Patellar and Achilles reflex 2+ bilaterally. No ataxia, gait normal and steady.. No focal neuro deficits. Course Course Course Narrative: Patient is a 41-year-old female with a past medical history of anxiety, depression, asthma, disc herniation who presents emergency department today for evaluation of acute on chronic back pain. Physical exam is reassuring, vital signs are stable, she is able to ambulate with a slow and steady gait. Pain is most consistent with , lumbar radiculopathy, although cannot completely exclude new or worsening herniated disc. On neurological exam there are no deficits. Onset of exacerbated pain today was nontraumatic. Not consistent with spinal fracture, spinal infection, AAA, epidural abscess, or dissection. No high risk past medical history including incontinence, fever, immunosuppression, recent surgery or lumbar puncture, coagulopathy, significant trauma, recent unintentional weight loss, pulsatile mass, history of cancer, history of TB, history of IV drug use that would warrant MRI or CT. Not consistent with ectopic , pyelonephritis, urinary tract infection, renal calculi, pelvic infection, appendicitis, diverticulitis. On exam no concern for cauda equina syndrome. No imaging is currently indicated at this time. Plan for discharge home with new prescription for cyclobenzaprine to use in addition to Tylenol/ibuprofen, discussed lower back exercises/stretches, worrisome signs and symptoms to return back to emergency department for, follow-up with primary care provider, and patient agreed with plan. MDM - Back Pain/Injury Medical Records Attestation: I reviewed the patient's medical records. Discharge Plan Discharge Clinical Impression: Lumbar radiculopathy Patient Disposition: Home, Self-Care Instructions: Lumbar Radiculopathy (ED), Lower Back Exercises (ED) Additional Instructions: As we discussed, the pain that you are describing in your back radiating to your legs is consistent with your chronic back pain. You should consider following up with your primary care provider regarding request for referral to a back specialist to explore additional options for treatment. You can take ibuprofen 200 mg, 3 tablets (600mg) every 6-8 hours as needed for pain, in addition to Tylenol 500 mg, 2 tablets (1,000mg) every 4-6 hours as needed for pain, but not to exceed 3 doses daily (3,000mg).? You been given a prescription for a muscle relaxant, cyclobenzaprine, to take as needed for pain. This may make you drowsy, you should not drive, operate any machinery, work, or drink alcohol while taking this medication. As we discussed, going back to work may continue to worsen your pain, as you stated that your pain is made worse with prolonged standing. However, you requested to return to work tomorrow as your hours have been shortened. You may return to the emergency department with any new or worsening symptoms or concerns. Jairo discutimos, el dolor que est? describiendo en josue espalda que se irradia a librado piernas es consistente con josue dolor de espalda cr?monica. Debe considerar hacer un seguimiento con josue proveedor de atenci?n primaria con respecto a la solicitud de derivaci?n a un especialista en espalda para explorar opciones adicionales de tratamiento. Puede marcelo ibuprofeno de 200 mg, 3 tabletas (600 mg) cada 6 a 8 horas seg?n sea necesario para el dolor, adem?s de Tylenol 500 mg, 2 tabletas (1000 mg) cada 4 a 6 horas seg?n sea necesario para el dolor, candido sin exceder las 3 dosis diarias (3.000 mg). Le johnson recetado un relajante muscular, ciclobenzaprina, para que lo tome seg?n lo necesite para el dolor. [place] puede causarle somnolencia, no debe conducir, operar maquinaria, trabajar o beber alcohol mientras tianna agustín medicamento. Jairo discutimos, volver al trabajo puede continuar empeorando josue dolor, ya que usted indic? que josue dolor empeora con la permanencia prolongada. Sin embargo, solicit? volver a trabajar ma?carrie ya que librado horas se johnson reducido. Puede regresar al departamento de emergencias con cualquier s?ntoma o inquietud nueva o que empeore. Prescriptions: New cyclobenzaprine 10 mg tablet 10 mg PO TID PRN (Reason: muscle spasm) Qty: 14 0RF No Action acetaminophen [Tylenol] 325 mg tablet 650 mg PO Q6H PRN (Reason: fever or pain) Qty: 14 0RF riboflavin (vitamin B2) [Vitamin B-2] 100 mg tablet 2 tab PO BID gabapentin 400 mg capsule 1 cap PO BID hydroxyzine pamoate 50 mg capsule 50 mg PO DAILY hydroxyzine pamoate 50 mg capsule 100 mg PO BEDTIME sulindac 150 mg tablet 1 tab PO BID oxcarbazepine 300 mg tablet 1 tab PO BID prazosin 5 mg capsule 1 cap PO BEDTIME paroxetine HCl 40 mg tablet 1 tab PO BEDTIME prednisone 20 mg tablet 40 mg PO DAILY 5 Days Qty: 10 0RF ibuprofen [Advil] 200 mg Tablet 400 mg PO Q6H PRN (Reason: Pain) albuterol sulfate [ProAir HFA] 90 mcg/actuation HFA aerosol inhaler 6 puff PO Q4H PRN (Reason: wheezing) budesonide-formoterol [Symbicort] 160-4.5 mcg/actuation HFA aerosol inhaler 1 puff PO BID omeprazole 20 mg Tablet,Delayed Release (Dr/Ec) 20 mg PO DAILY [id number]-bykpwhsiywalt-kcyq [Fioricet] 50-300-40 mg capsule 1 cap PO Q8H PRN (Reason: migraine headache) Qty: 10 0RF Stand Alone Forms: Work/School Release
[2022-01-04] MEDS: Cyclobenzaprine HCl 10 MG TABLET PO (10:19)
[2022-01-04 10:59] VITALS: BP 140/88; PULSE 98; TEMP 36; O2SAT 99
== END 2022-01-04 11:11 | disposition home or self-care (01) ==
PROVIDERS: Emergency Provider Emergency Medicine; PCP Family Medicine
DX: M54.16 Radiculopathy, lumbar region (principal)
CPT/HCPCS: 99283

== ENCOUNTER 2022-04-06 15:34 | Emergency (ER) | payer OTHER, SELFPAY ==
--- NOTE | ~2022-04-06 | XR_ITS ---
EXAMINATION: XR CHEST CLINICAL INFORMATION: Shortness of breath, body swelling, leg swelling. COMPARISON: 12/10/2021 chest radiographs. TECHNIQUE: 2 views of the chest were obtained. FINDINGS: No significant abnormality is noted involving the heart, lungs, mediastinum, bony thorax or soft tissues. XR/XR chest 2V IMPRESSION: No acute cardiopulmonary process.
--- NOTE | ~2022-04-06 | US_ITS ---
EXAMINATION: US VENOUS ULTRASOUND WITH DOPPLER LOWER EXTREMITY, BILATERAL CLINICAL INFORMATION: Bilateral leg swelling COMPARISON: None TECHNIQUE: Ultrasound of the deep veins is performed from the hip to the calf with compression sonography and color and pulse Doppler assessment. Spectral analysis with color-flow imaging is performed. FINDINGS: RIGHT: There is normal venous compression and respiratory variation and augmented flow. The visualized common femoral vein, superficial femoral vein, profunda femoral vein, popliteal vein, and the trifurcation region shows no evidence of deep venous thrombosis. There is no significant popliteal fossa cyst. LEFT: There is normal venous compression and respiratory variation and augmented flow. The visualized common femoral vein, superficial femoral vein, profunda femoral vein, popliteal vein, and the trifurcation region shows no evidence of deep venous thrombosis. The left peroneal vein was not seen. There is no significant popliteal fossa cyst. If the patient's symptoms persist, followup ultrasound in 5 days 7 days might be of value to exclude proximal propagation from a non-visualized calf vein. US/US venous duplex LE BI IMPRESSION: No DVT demonstrated in either lower extremity.
[2022-04-06 16:31] VITALS: BP 149/67; PULSE 94; RESP 20; TEMP 36.7; O2SAT 95; BMI 39.6
--- NOTE | 2022-04-06 16:32 | ED_ITS ---
HPI - SOB/Dyspnea General Chief Complaint: General Medical <MELVI Murillo - Last Filed: 04/06/22 16:41> Stated Complaint: Difficulty breathing/Swelling in extremities <MELVI Murillo - Last Filed: 04/06/22 16:41> Time Seen by Provider: 04/06/22 17:35 <MELVI Murillo - Last Filed: 04/06/22 16:41> Source: patient, family (Daughter as the patient also.) and automobile locator <Brett Molina MD - Last Filed: 04/06/22 19:23> Mode of arrival: ambulatory <Brett Molina MD - Last Filed: 04/06/22 19:23> Limitations: no limitations <Brett Molina MD - Last Filed: 04/06/22 19:23> History of Present Illness HPI Narrative: 41-year-old female came in for evaluation of coughing and shortness of breath the patient is an active smoker presented with coughing and shortness of breath that is worsening with exertion, patient been having bilateral lower extremity swelling for the past few weeks, patient has no fever or chills, no body ache or runny nose or congestion, daughter is here also and positive for flu. No recent travel, no recent prolonged immobilization no history of PE or DVT. <Brett Molina MD - Last Filed: 04/06/22 19:23> Related Data Home Medications: Home Medications Medication Instructions Recorded Confirmed albuterol sulfate 90 mcg/actuation 6 puff PO Q4H PRN wheezing 09/18/21 09/18/21 aerosol inhaler (ProAir HFA) budesonide-formoterol HFA 160 1 puff PO BID 09/18/21 09/18/21 mcg-4.5 mcg/actuation aerosol inhaler (Symbicort) gabapentin 400 mg capsule 1 cap PO BID 09/18/21 09/18/21 hydroxyzine pamoate 50 mg capsule 50 mg PO DAILY 09/18/21 09/18/21 hydroxyzine pamoate 50 mg capsule 100 mg PO BEDTIME 09/18/21 09/18/21 ibuprofen 200 mg tablet (Advil) 400 mg PO Q6H PRN Pain 09/18/21 09/18/21 omeprazole 20 mg tablet,delayed 20 mg PO DAILY 09/18/21 09/18/21 release oxcarbazepine 300 mg tablet 1 tab PO BID 09/18/21 09/18/21 paroxetine HCl 40 mg tablet 1 tab PO BEDTIME 09/18/21 09/18/21 prazosin 5 mg capsule 1 cap PO BEDTIME 09/18/21 09/18/21 riboflavin (vitamin B2) 100 mg 2 tab PO BID 09/18/21 09/18/21 tablet (Vitamin B-2) sulindac 150 mg tablet 1 tab PO BID 09/18/21 09/18/21 Previous Rx's Medication Instructions Recorded acetaminophen 325 mg tablet 650 mg PO Q6H PRN fever or pain 02/13/20 (Tylenol) #14 tabs phvrmxlstr-wtmkevhmfrriu-zxgecfdr 1 cap PO Q8H PRN migraine headache 09/18/21 50 mg-300 mg-40 mg capsule #10 caps (Fioricet) prednisone 20 mg tablet 40 mg PO DAILY 5 days #10 tabs 09/18/21 cyclobenzaprine 10 mg tablet 10 mg PO TID PRN muscle spasm #14 01/04/22 tabs albuterol sulfate 90 mcg/actuation 1 inh inhalation QID PRN shortness 04/06/22 aerosol inhaler of breath or wheezing #8.5 grams azithromycin 250 mg tablet See Rx Instructions PO .COMPLEX #6 04/06/22 (Zithromax Z-Jonathan) tabs prednisone 20 mg tablet 20 mg PO BID #10 tabs 04/06/22 <MELVI Murillo - Last Filed: 04/06/22 16:41> Allergies/Adverse Reactions: Allergies Allergy/AdvReac Type Severity Reaction Status Date / Time promethazine [From PHENERGAN] Allergy Unknown ITCHING Verified 12/10/21 01:52 codeine [CODEINE] AdvReac Unknown STOMACH Verified 12/10/21 01:52 UPSET morphine [MORPHINE] AdvReac Unknown MORE PAIN Verified 12/10/21 01:52 <MELVI Murillo - Last Filed: 04/06/22 16:41> Review of Systems Review of Systems: All other systems are reviewed and are negative Constitutional: Reports as per HPI and Reports no additional constitutional complaints Eyes: Reports as per HPI and Reports no additional eye complaints Reports system reviewed and no additional complaints, except as documented Cardiovascular: Reports as per HPI and Reports no additional cardiovascular complaints Respiratory: Reports as per HPI and Reports no additional respiratory complaints Gastrointestinal: Reports as per HPI and Reports no additional gastrointestinal complaints Genitourinary: Reports no additional female genitourinary complaints Musculoskeletal: Reports no additional musculoskeletal complaints Skin/Breast: Reports system reviewed and no additional complaints, except as docu Psychiatric: Reports no additional psychiatric complaints Endocrine: Reports no additional endocrine complaints Hematologic/Lymphatic: Reports no additional hematologic/lymphatic complaints Allergic/Immunologic: Reports no additional allergic/immunologic complaints Reports system reviewed and no additional complaints, except as documented and Reports Abnormal speech present <Brett Molina MD - Last Filed: 04/06/22 19:23> [facility] Past Medical History Medical History: Medical History Asthma Depression Disc herniation H. pylori infection Migraine Sinus infection <MELVI Murillo - Last Filed: 04/06/22 16:41> Surgical History: Surgical History History of <MELVI Murillo - Last Filed: 04/06/22 16:41> Social History Social History: Social History Alcohol intake: never Advance Directives: No Advance Directives Information Provided: Yes service: No Current occupational status: employed <MELVI Murillo - Last Filed: 04/06/22 16:41> Physical Exam Vital Signs: Vital Signs: Last Vital Signs Temp 98.1 F 04/06/22 16:31 Pulse 94 04/06/22 16:31 Resp 20 04/06/22 16:31 BP 149/67 H 04/06/22 16:31 Pulse Ox 95 04/06/22 16:31 O2 Del Method 04/06/22 16:31 BMI result Body Mass Index 39.6 <MELVI Murillo - Last Filed: 04/06/22 16:41> Vital Signs: Last Vital Signs Temp 98.1 F 04/06/22 16:31 Pulse 94 04/06/22 16:31 Resp 20 04/06/22 16:31 BP 149/67 H 04/06/22 16:31 Pulse Ox 95 04/06/22 16:31 O2 Del Method 04/06/22 16:31 BMI result Body Mass Index 39.6 Vital signs have been reviewed as appeared to be correct. Blood pressure normal. Heart rate normal. Respiration rate normal. Temperature normal. Oxygen saturation normal. <Brett Molian MD - Last Filed: 04/06/22 19:23> Appearance: Alert. Oriented X3. No acute distress. Head: Normal external exam. Normocephalic. Atraumatic. No Borjas signs noted. No raccoon eyes noted Eyes: PERRLA. EOMI. Conjunctiva and sclera normal. Eyelids normal. ENT: TM's Normal. Pharynx normal. Uvula midline. Moist mucous membranes. No trismus noted. No drooling noted. No muffled voice noted. Neck: Normal inspection. Neck supple. FROM. No adenopathy. Thyroid Normal. No meningeal signs. No neck mass noted. CVS: Normal heart rate and rhythm. Heart sound normal. No murmurs noted. Pulses normal throughout. Respiratory: No respiratory distress. Painless inspiration. Breath sounds normal. No wheezes/rales/rhonchi noted. Chest nontender. No accessory muscle usage noted or decreased air movement noted. Abdomen: Soft and nontender. Bowel sounds normal in all 4 quadrants. No distention noted. No organomegaly noted. No visible injury noted. Back: No CVA tenderness. Full range of motion noted. Skin: Skin warm and dry. Normal skin color. Normal skin turgor. No rashes/lesions/lacerations noted. Extremities: No lower extremity edema. Extremities exhibit normal range of motion. Extremities nontender. Neuro: Oriented X 3. Cranial nerve exam: II-XII are grossly intact No motor deficit. No sensory deficit. Reflexes normal. <Brett Molina MD - Last Filed: 04/06/22 19:23> Course Course Course Narrative: 16:40pm - 41yoF c PMHx of migraine headaches, disc herniation, depression, sinus infections and asthma who is Serbian-speaking and presenting c c/o 2-3 months of lower body swelling and now within 1 week she feels like her upper body is swelling. Reports associated shortness of breath/dyspnea on exertion. She also reports right upper extremity arm numbness and right lower extremity numbness as well for a few weeks as well. Denies any other symptoms complaints or concerns at this time Plan: Labs, CXR, EKG, duplex venous ultrasound of bilateral lower extremity. Patient is stable. She will be sent back to the waiting room for further evaluation treatment to the main ER. <MELVI Murillo - Last Filed: 04/06/22 16:41> Reevaluation(s) Reevaluation #1: 41-year-old female smoker with exertional dyspnea, physical exam and findings are consistent with acute bronchitis will start the patient on Z-Jonathan/prednisone/albuterol and follow-up with PCP. <Brett Molina MD - Last Filed: 04/06/22 19:23> Time: 19:21 <Brett Molina MD - Last Filed: 04/06/22 19:23> Medical Decision Making Differential Diagnosis Differential Diagnoses: The differential diagnosis associated with the presentation includes <Brett Molina MD - Last Filed: 04/06/22 19:23> Influenza a/DVT/COVID-19 infection/RSV/acute bronchitis. <Brett Molina MD - Last Filed: 04/06/22 19:23> Lab Data MDM Lab Attestation statement: I reviewed the patient's lab results. <Brett Molina MD - Last Filed: 04/06/22 19:23> Result Diagrams: : 04/06/22 16:49 04/06/22 16:49 <MELVI Murillo - Last Filed: 04/06/22 16:41> Labs: Lab Results 04/06/22 04/06/22 04/06/22 Range/Units 16:49 16:49 16:49 WBC 11.9 H (4.8-10.8) X10*3/uL RBC 4.76 (4.20-5.50) X10*6/uL Hgb 13.1 (12.0-16.0) g/dl Hct 40.8 (37.0-47.0) % MCV 85.7 (80.0-98.0) fL MCH 27.5 (27.0-33.0) pg MCHC 32.1 (31.0-35.0) g/dl RDW 15.0 (11.0-16.0) % Plt Count 334 (160-400) X10*3/uL MPV 9.4 (9.4-12.3) fL Immature Gran % (Auto) 0.3 (0.0-0.4) % Neut % (Auto) 64.5 (45-73) % Lymph % (Auto) 22.5 (20-40) % [place] % (Auto) 7.6 (2-11) % Eos % (Auto) 4.2 H (0-4) % Baso % (Auto) 0.9 (0-2) % Lymph # (Auto) 2.7 (1.2-4.9) X10*3/uL [place] # (Auto) 0.9 (0.1-1.2) X10*3/uL Eos # (Auto) 0.5 H (0.0-0.4) X10*3/uL Baso # (Auto) 0.1 (0.0-0.2) X10*3/uL Abs Immat Gran (auto) 0.04 H (0.00-0.03) X10*3/uL Absolute Neuts (auto) 7.7 (2.0-8.3) x10*3/uL Absolute Nucleated RBC 0.000 (0.0-0.012) X10*3/uL Nucleated RBC % (auto) 0.0 (0.0-0.2) /100WBC PT 12.3 (10.0-13.1) SEC INR 1.1 (0.9-1.1) D-Dimer High Sensitivty 190 NG/ML Sodium 137 (135-145) mmol/L Potassium 4.9 (3.3-5.1) mmol/L Chloride 103 (96-108) mmol/L Carbon Dioxide 28 (22-29) mmol/L Anion Gap 11 L (12-20) BUN 10 (9-16) mg/dL Creatinine 0.78 (0.5-1.4) mg/dL Estim Creat Clear Calc 99.0 Estimated GFR > 60 Random Glucose 84 (60-115) mg/dL Calcium 9.1 D (8.4-10.2) mg/dL Magnesium 2.2 (1.6-2.6) mg/dL Total Bilirubin 0.3 (0.0-1.0) mg/dL AST 18 (5-31) U/L ALT 27 (0-31) U/L Alkaline Phosphatase 116 (39-117) U/L B-Natriuretic Peptide (<100) pg/mL Total Protein 6.5 (6.5-8.0) g/dL Albumin 3.8 (3.5-5.0) g/dL COVID-19 ([facility]) (Negative) COVID-19 Clin Com Influenza Type A ([facility]) (Negative) Influenza Type B ([facility]) (Negative) Influenza A & B Note 04/06/22 04/06/22 04/06/22 Range/Units 16:49 18:48 18:48 WBC (4.8-10.8) X10*3/uL RBC (4.20-5.50) X10*6/uL Hgb (12.0-16.0) g/dl Hct (37.0-47.0) % MCV (80.0-98.0) fL MCH (27.0-33.0) pg MCHC (31.0-35.0) g/dl RDW (11.0-16.0) % Plt Count (160-400) X10*3/uL MPV (9.4-12.3) fL Immature Gran % (Auto) (0.0-0.4) % Neut % (Auto) (45-73) % Lymph % (Auto) (20-40) % [place] % (Auto) (2-11) % Eos % (Auto) (0-4) % Baso % (Auto) (0-2) % Lymph # (Auto) (1.2-4.9) X10*3/uL [place] # (Auto) (0.1-1.2) X10*3/uL Eos # (Auto) (0.0-0.4) X10*3/uL Baso # (Auto) (0.0-0.2) X10*3/uL Abs Immat Gran (auto) (0.00-0.03) X10*3/uL Absolute Neuts (auto) (2.0-8.3) x10*3/uL Absolute Nucleated RBC (0.0-0.012) X10*3/uL Nucleated RBC % (auto) (0.0-0.2) /100WBC PT (10.0-13.1) SEC INR (0.9-1.1) D-Dimer High Sensitivty NG/ML Sodium (135-145) mmol/L Potassium (3.3-5.1) mmol/L Chloride (96-108) mmol/L Carbon Dioxide (22-29) mmol/L Anion Gap (12-20) BUN (9-16) mg/dL Creatinine (0.5-1.4) mg/dL Estim Creat Clear Calc Estimated GFR Random Glucose (60-115) mg/dL Calcium (8.4-10.2) mg/dL Magnesium (1.6-2.6) mg/dL Total Bilirubin (0.0-1.0) mg/dL AST (5-31) U/L ALT (0-31) U/L Alkaline Phosphatase (39-117) U/L B-Natriuretic Peptide < 10 (<100) pg/mL Total Protein (6.5-8.0) g/dL Albumin (3.5-5.0) g/dL COVID-19 ([facility]) Negative (Negative) COVID-19 Clin Com See Note Influenza Type A ([facility]) Negative (Negative) Influenza Type B ([facility]) Negative (Negative) Influenza A & B Note See Note <MELVI Murillo - Last Filed: 04/06/22 16:41> Lab Results 04/06/22 04/06/22 04/06/22 Range/Units 16:49 16:49 16:49 WBC 11.9 H (4.8-10.8) X10*3/uL RBC 4.76 (4.20-5.50) X10*6/uL Hgb 13.1 (12.0-16.0) g/dl Hct 40.8 (37.0-47.0) % MCV 85.7 (80.0-98.0) fL MCH 27.5 (27.0-33.0) pg MCHC 32.1 (31.0-35.0) g/dl RDW 15.0 (11.0-16.0) % Plt Count 334 (160-400) X10*3/uL MPV 9.4 (9.4-12.3) fL Immature Gran % (Auto) 0.3 (0.0-0.4) % Neut % (Auto) 64.5 (45-73) % Lymph % (Auto) 22.5 (20-40) % [place] % (Auto) 7.6 (2-11) % Eos % (Auto) 4.2 H (0-4) % Baso % (Auto) 0.9 (0-2) % Lymph # (Auto) 2.7 (1.2-4.9) X10*3/uL [place] # (Auto) 0.9 (0.1-1.2) X10*3/uL Eos # (Auto) 0.5 H (0.0-0.4) X10*3/uL Baso # (Auto) 0.1 (0.0-0.2) X10*3/uL Abs Immat Gran (auto) 0.04 H (0.00-0.03) X10*3/uL Absolute Neuts (auto) 7.7 (2.0-8.3) x10*3/uL Absolute Nucleated RBC 0.000 (0.0-0.012) X10*3/uL Nucleated RBC % (auto) 0.0 (0.0-0.2) /100WBC PT 12.3 (10.0-13.1) SEC INR 1.1 (0.9-1.1) D-Dimer High Sensitivty 190 NG/ML Sodium 137 (135-145) mmol/L Potassium 4.9 (3.3-5.1) mmol/L Chloride 103 (96-108) mmol/L Carbon Dioxide 28 (22-29) mmol/L Anion Gap 11 L (12-20) BUN 10 (9-16) mg/dL Creatinine 0.78 (0.5-1.4) mg/dL Estim Creat Clear Calc 99.0 Estimated GFR > 60 Random Glucose 84 (60-115) mg/dL Calcium 9.1 D (8.4-10.2) mg/dL Magnesium 2.2 (1.6-2.6) mg/dL Total Bilirubin 0.3 (0.0-1.0) mg/dL AST 18 (5-31) U/L ALT 27 (0-31) U/L Alkaline Phosphatase 116 (39-117) U/L B-Natriuretic Peptide (<100) pg/mL Total Protein 6.5 (6.5-8.0) g/dL Albumin 3.8 (3.5-5.0) g/dL COVID-19 ([facility]) (Negative) COVID-19 Clin Com Influenza Type A ([facility]) (Negative) Influenza Type B ([facility]) (Negative) Influenza A & B Note 04/06/22 04/06/22 04/06/22 Range/Units 16:49 18:48 18:48 WBC (4.8-10.8) X10*3/uL RBC (4.20-5.50) X10*6/uL Hgb (12.0-16.0) g/dl Hct (37.0-47.0) % MCV (80.0-98.0) fL MCH (27.0-33.0) pg MCHC (31.0-35.0) g/dl RDW (11.0-16.0) % Plt Count (160-400) X10*3/uL MPV (9.4-12.3) fL Immature Gran % (Auto) (0.0-0.4) % Neut % (Auto) (45-73) % Lymph % (Auto) (20-40) % [place] % (Auto) (2-11) % Eos % (Auto) (0-4) % Baso % (Auto) (0-2) % Lymph # (Auto) (1.2-4.9) X10*3/uL [place] # (Auto) (0.1-1.2) X10*3/uL Eos # (Auto) (0.0-0.4) X10*3/uL Baso # (Auto) (0.0-0.2) X10*3/uL Abs Immat Gran (auto) (0.00-0.03) X10*3/uL Absolute Neuts (auto) (2.0-8.3) x10*3/uL Absolute Nucleated RBC (0.0-0.012) X10*3/uL Nucleated RBC % (auto) (0.0-0.2) /100WBC PT (10.0-13.1) SEC INR (0.9-1.1) D-Dimer High Sensitivty NG/ML Sodium (135-145) mmol/L Potassium (3.3-5.1) mmol/L Chloride (96-108) mmol/L Carbon Dioxide (22-29) mmol/L Anion Gap (12-20) BUN (9-16) mg/dL Creatinine (0.5-1.4) mg/dL Estim Creat Clear Calc Estimated GFR Random Glucose (60-115) mg/dL Calcium (8.4-10.2) mg/dL Magnesium (1.6-2.6) mg/dL Total Bilirubin (0.0-1.0) mg/dL AST (5-31) U/L ALT (0-31) U/L Alkaline Phosphatase (39-117) U/L B-Natriuretic Peptide < 10 (<100) pg/mL Total Protein (6.5-8.0) g/dL Albumin (3.5-5.0) g/dL COVID-19 ([facility]) Negative (Negative) COVID-19 Clin Com See Note Influenza Type A ([facility]) Negative (Negative) Influenza Type B ([facility]) Negative (Negative) Influenza A & B Note See Note <Brett Molina MD - Last Filed: 04/06/22 19:23> Independent Interpretation I performed an independent interpretation of an: Plain X-Ray (Chest: No acute intrathoracic pathology.) and Ultrasound (Bilateral venous duplex: No DVT.) <Brett Molina MD - Last Filed: 04/06/22 19:23> Radiology Impression Discussion of test interpretation with radiology: I have reviewed the radiologist's reading. <Brett Molina MD - Last Filed: 04/06/22 19:23> Discharge Plan Discharge Clinical Impression: Bronchitis, Quit smoking <MELVI Murillo - Last Filed: 04/06/22 16:41> Patient Disposition: Home, Self-Care <MELVI Murillo - Last Filed: 04/06/22 16:41> Instructions: How to Stop Smoking (ED), Acute Bronchitis (ED) <MELVI Murillo - Last Filed: 04/06/22 16:41> Prescriptions: New albuterol sulfate 90 mcg/actuation HFA aerosol inhaler 1 inh inhalation QID PRN (Reason: shortness of breath or wheezing) Qty: 8.5 0RF prednisone 20 mg tablet 20 mg PO BID Qty: 10 0RF azithromycin [Zithromax Z-Jonathan] 250 mg tablet See Rx Instructions .ROUTE .COMPLEX Qty: 6 0RF Rx Instructions: For 250 mg dose pack: take 500 mg today (day 1), then 250 mg for 4 days (days 2-5) No Action acetaminophen [Tylenol] 325 mg tablet 650 mg PO Q6H PRN (Reason: fever or pain) Qty: 14 0RF cyclobenzaprine 10 mg tablet 10 mg PO TID PRN (Reason: muscle spasm) Qty: 14 0RF riboflavin (vitamin B2) [Vitamin B-2] 100 mg tablet 2 tab PO BID gabapentin 400 mg capsule 1 cap PO BID hydroxyzine pamoate 50 mg capsule 50 mg PO DAILY hydroxyzine pamoate 50 mg capsule 100 mg PO BEDTIME sulindac 150 mg tablet 1 tab PO BID oxcarbazepine 300 mg tablet 1 tab PO BID prazosin 5 mg capsule 1 cap PO BEDTIME paroxetine HCl 40 mg tablet 1 tab PO BEDTIME prednisone 20 mg tablet 40 mg PO DAILY 5 Days Qty: 10 0RF ibuprofen [Advil] 200 mg Tablet 400 mg PO Q6H PRN (Reason: Pain) albuterol sulfate [ProAir HFA] 90 mcg/actuation HFA aerosol inhaler 6 puff PO Q4H PRN (Reason: wheezing) budesonide-formoterol [Symbicort] 160-4.5 mcg/actuation HFA aerosol inhaler 1 puff PO BID omeprazole 20 mg Tablet,Delayed Release (Dr/Ec) 20 mg PO DAILY [id number]-[id number] [Fioricet] 50-300-40 mg capsule 1 cap PO Q8H PRN (Reason: migraine headache) Qty: 10 0RF <MELVI Murillo - Last Filed: 04/06/22 16:41> Referrals: Beti Mccray MD [Primary Care Provider] - <MELVI Murillo - Last Filed: 04/06/22 16:41>
--- NOTE | 2022-04-06 16:34 | ECG_ITS ---
Test Reason : SOB Blood Pressure : / mmHG Vent. Rate : 089 BPM Atrial Rate : 089 BPM P-R Int : 134 ms QRS Dur : 082 ms QT Int : 360 ms P-R-T Axes : 048 034 024 degrees QTc Int : 438 ms Normal sinus rhythm Normal ECG When compared with ECG of 10-DEC-2021 02:04, No significant change was found Referred By: Kailey Del Angel Electronically Signed By:IVIS MONTGOMERY
[2022-04-06 16:59] LABS: MANUAL DIFF FLAG NO
[2022-04-06 17:01] LABS: Basophils Absolute Auto 0.1 X10*3/uL (0.0-0.2); Basophils Percent Auto 0.9 % (0-2); Eosinophils Absolute Auto 0.5 X10*3/uL (0.0-0.4); Eosinophils Percent Auto 4.2 % (0-4); Hematocrit 40.8 % (37.0-47.0); Hemoglobin 13.1 g/dl (12.0-16.0); Imm Gran Abs Auto 0.04 X10*3/uL (0.00-0.03); Imm Gran Pct Auto 0.3 % (0.0-0.4); Lymphocytes Absolute Auto 2.7 X10*3/uL (1.2-4.9); Lymphocytes Percent Auto 22.5 % (20-40); Mean Corpuscular HGB Conc 32.1 g/dl (31.0-35.0); Mean Corpuscular Hemoglobin 27.5 pg (27.0-33.0); Mean Corpuscular Volume 85.7 fL (80.0-98.0); Mean Platelet Volume 9.4 fL (9.4-12.3); Monocytes Absolute Auto 0.9 X10*3/uL (0.1-1.2); Monocytes Percent Auto 7.6 % (2-11); Neutrophils Absolute Auto 7.7 x10*3/uL (2.0-8.3); Neutrophils Percent Auto 64.5 % (45-73); Platelet Count 334 X10*3/uL (160-400); Red Blood Count 4.76 X10*6/uL (4.20-5.50); White Blood Count 11.9 X10*3/uL (4.8-10.8)
[2022-04-06 17:16] LABS: INTERNATIONAL NORM RATIO 1.1 (0.9-1.1); Prothrombin Time 12.3 SEC (10.0-13.1)
[2022-04-06 17:17] LABS: Alanine Aminotransferase 27 U/L (0-31); Albumin Level 3.8 g/dL (3.5-5.0); Alkaline Phosphatase 116 U/L (39-117); Anion Gap 11 (12-20); Aspartate Amino Transferase 18 U/L (5-31); Bilirubin Total 0.3 mg/dL (0.0-1.0); Blood Urea Nitrogen 10 mg/dL (9-16); Calcium 9.1 mg/dL (8.4-10.2); Carbon Dioxide 28 mmol/L (22-29); Chloride 103 mmol/L (96-108); Estimated Glomerular Filt Rate > 60; Glucose Random 84 mg/dL (60-115); Magnesium 2.2 mg/dL (1.6-2.6); Potassium 4.9 mmol/L (3.3-5.1); Sodium 137 mmol/L (135-145); Total Protein 6.5 g/dL (6.5-8.0)
[2022-04-06 17:22] LABS: B Type Natriuretic Peptide < 10 pg/mL (<100)
[2022-04-06 18:19] LABS: D Dimer High Sensitivity 190 NG/ML
[2022-04-06 19:09] LABS: COVID-19 Test Negative (Negative); IDNOW Serial# 16C4AD1C
[2022-04-06 19:10] LABS: IDNOW Serial# BCCEAD1C; Influenza A Negative (Negative); Influenza B2 Negative (Negative)
== END 2022-04-06 19:28 | disposition home or self-care (01) ==
PROVIDERS: Physician Assistant Medical; Emergency Provider Emergency Medicine; PCP Internal Medicine
DX: J40 Bronchitis, not specified as acute or chronic (principal); R06.02 Shortness of breath; R05.9 Cough, unspecified; F17.210 Nicotine dependence, cigarettes, uncomplicated; Z20.822 Contact with and (suspected) exposure to COVID-19; Z71.6 Tobacco abuse counseling; Z79.899 Other long term (current) drug therapy
CPT/HCPCS: 36415; 71046; 80053; 83735; 83880; 85025; 85379; 85610; 87502; 87635; 93005; 93970; 99282; 99284

== ENCOUNTER 2022-04-22 19:21 | Inpatient (IN) | payer OTHER, SELFPAY ==
--- NOTE | ~2022-04-22 | XR_ITS ---
EXAMINATION: XR CHEST CLINICAL INFORMATION: Covid, hypoxia. Right IJ placement. COMPARISON: Chest x-ray 04/23/2022 TECHNIQUE: Frontal view of the chest was obtained. FINDINGS: There is a new right internal jugular catheter with its tip at the atriocaval junction. Endotracheal tube tip is 2.3 cm above the jesenia. Tip of enteric tube is below diaphragm the stomach. There are diffuse patchy infiltrates seen throughout both lungs consistent with Covid disease. Cardiomediastinal silhouette is suboptimally visualized. No gross bony abnormality. XR/XR chest 1V IMPRESSION: New right jugular central catheter tip is at atriocaval junction. No change in the endotracheal tube and enteric tube. Diffuse patchy infiltrates throughout both lungs.
--- NOTE | ~2022-04-22 | XR_ITS ---
EXAMINATION: XR CHEST CLINICAL INFORMATION: Post diuresis COMPARISON: 04/23/2022 TECHNIQUE: Frontal view of the chest was obtained. FINDINGS: The tip of the ET tube is at the level the proximal right mainstem bronchus/jesenia. Recommend withdrawing the ET tube by at least 2.5 cm. The tip of the right IJ catheter overlies the region of the right atrium. The tip of the enteric tube is at the level of the gastric antrum. Multiple EKG wires overlie the chest. Lungs are hypoinflated and suboptimally evaluated. Overall, there is interval decreased patchy airspace opacity and decreased haziness of the lungs compared to 04/23/2022. No overt pleural effusion, pneumothorax or other significant change. XR/XR chest 1V IMPRESSION: * The ET tube is low in position with its tip at level of proximal right mainstem bronchus. Recommend ET tube repositioning. * Lungs are hypoinflated, suboptimally evaluated. However, there is overall decreased airspace and hazy opacity of the lungs. The JR drywall applicator (Sherry Hurst) has confirmed at 8:[address] Muñiz is aware of the ET tube position..
--- NOTE | ~2022-04-22 | XR_ITS ---
EXAMINATION: XR CHEST CLINICAL INFORMATION: Covid. Hypoxia. ETT placement. COMPARISON: CT chest 04/22/2022. TECHNIQUE: Frontal view of the chest was obtained. FINDINGS: There is diffuse patchy infiltrates seen throughout both lungs consistent with Covid disease. Heart size and great vessels are normal caliber. No gross bony abnormality seen. Tip of endotracheal tube is 1.96 cm above the jesenia. The endotracheal tube tip is below diaphragm in stomach. No gross bony abnormality seen. XR/XR chest 1V IMPRESSION: 1. Diffuse patchy infiltrates throughout both lungs consistent with Covid disease. 2. Tip of endotracheal tube is 1.96 cm above the jesenia. 3. Enteric tube is below diaphragm in the stomach.
--- NOTE | ~2022-04-22 | XR_ITS ---
EXAMINATION: XR CHEST CLINICAL INFORMATION: Pneumonia COMPARISON: CT chest, abdomen and pelvis April 29, 2022 and chest x-ray April 28, 2022 TECHNIQUE: Frontal view of the chest was obtained. FINDINGS: Endotracheal tube terminates approximately 5 cm above the level the jesenia. Enteric tube terminates below the level the diaphragm. Right-sided jugular catheter terminates within the right atrium. The cardiac silhouette is stable. The lungs are hypoinflated. Persistent mild bibasilar airspace disease. No large pleural effusion. No pneumothorax. XR/XR chest 1V IMPRESSION: 1. Stable support apparatus. 2. Persistent mild bibasilar airspace disease.
--- NOTE | ~2022-04-22 | XR_ITS ---
EXAMINATION: XR CHEST CLINICAL INFORMATION: Pneumonia COMPARISON: Chest x-ray May 01, 2022 TECHNIQUE: Frontal view of the chest was obtained. FINDINGS: Endotracheal tube terminates approximately 4 cm above the level the jesenia. Enteric tube terminates well below level the diaphragm. Right-sided jugular catheter is stable, terminating within the proximal right atrium. Persistent hypoinflated lungs. Patchy bilateral airspace disease is similar. No large pleural effusion. No pneumothorax. XR/XR chest 1V IMPRESSION: 1. Stable support apparatus. 2. Stable patchy bilateral airspace disease.
--- NOTE | ~2022-04-22 | CT_ITS ---
EXAMINATION: CT ANGIOGRAM OF THE CHEST WITH AND WITHOUT CONTRAST (CT PULMONARY ANGIOGRAM FOR PE) CLINICAL INFORMATION: Reason for Exam covid + hypoxic COMPARISON: None TECHNIQUE: Prior to contrast administration, noncontrast localization images were obtained. Subsequently, multidetector volumetric imaging was performed from the thoracic inlet to below the diaphragms following the administration of 70 mL Omnipaque 350 intravenous contrast. No contrast reaction reported Sagittal, coronal, and MIP oblique sagittal reformatted images were obtained on the CT workstation, uploaded to PACS, and reviewed. This CT examination was performed using dose optimization techniques as appropriate, variously including the following: *Automated exposure control *Adjustment of mA and/or kV according to patient size (this includes techniques or standardized protocols for targeted exams where dose is matched to indication/reason for exam; i.e. extremities or head) *Use of iterative reconstruction technique Total exam dose-length product 429 mGy-cm FINDINGS: QUALITY OF STUDY/CONTRAST BOLUS: Satisfactory. PULMONARY ARTERIES: No central or segmental pulmonary emboli. THORACIC AORTA: No aneurysm or dissection. LUNG: Diffuse bilateral patchy groundglass and consolidative airspace opacities present throughout both lungs, predominating in the upper lungs. No peripheral predominance. PLEURA: No pleural effusion or pneumothorax. MEDIASTINUM: Normal heart size. No pericardial effusion. Mediastinal and bilateral hilar lymphadenopathy present, likely reactive. No evidence of septal bowing or right heart strain. CHEST WALL/AXILLA: No axillary or internal mammary lymphadenopathy. OSSEOUS STRUCTURES: No acute or suspicious osseous abnormality. UPPER ABDOMEN: Small sliding-type hiatal hernia. Wall thickening of the distal esophagus suspected. No reflux of contrast into the hepatic veins to suggest elevated right heart pressures. CT/CT angio chest PE protocol IMPRESSION: * No pulmonary embolism. * No aortic aneurysm or dissection. * Moderate to severe bilateral patchy consolidative and groundglass airspace opacities. These imaging features can be seen with (COVID-19 or viral) pneumonia, though are nonspecific * and can occur with a variety of infectious and noninfectious processes. VTE: negative
--- NOTE | ~2022-04-22 | XR_ITS ---
EXAMINATION: XR CHEST CLINICAL INFORMATION: Shortness of breath COMPARISON: 05/02/2022 TECHNIQUE: Frontal view of the chest was obtained. FINDINGS: The lungs are hypoexpanded. The heart is mildly enlarged. Since the prior study, the ET tube and NG tube have been removed. Right IJ line has its tip at the IVC atrial junction. Patchy diffuse airspace disease is similar to prior. No pneumothorax. No large pleural effusions XR/XR chest 1V IMPRESSION: Hypoexpanded lungs with diffuse patchy airspace disease similar to the prior study.
--- NOTE | ~2022-04-22 | XR_ITS ---
EXAMINATION: XR CHEST CLINICAL INFORMATION: Cough and shortness of breath COMPARISON: Chest x-ray 04/06/2022 TECHNIQUE: 2 views of the chest were obtained. FINDINGS: Interval development of multiple nodular lateral airspace opacities within both lungs since recent prior. No lobar consolidation. No pleural effusion or pneumothorax is visualized. Normal cardiomediastinal silhouette. Prominence of the right and left ade, possibly mild adenopathy. No evidence of overt pulmonary edema. No acute osseous injury identified. XR/XR chest 2V IMPRESSION: 1. Interval development of multiple nodular airspace opacities within both lungs since recent prior. Findings suggest multifocal pneumonia or alternatively septic emboli in the appropriate clinical setting. 2. No pleural effusions or pneumothorax. 3. Prominence of the right and left ade, possibly adenopathy.
--- NOTE | ~2022-04-22 | XR_ITS ---
EXAMINATION: XR CHEST CLINICAL INFORMATION: Febrile COMPARISON: 04/27/2022 TECHNIQUE: Frontal view of the chest was obtained. FINDINGS: Endotracheal tube terminates 2.2 cm above the jesenia. Right internal jugular central venous catheter terminates at the inferior cavoatrial junction, stable from prior. Cardiomegaly pulmonary venous congestion without overt edema. Bibasilar atelectasis, though improving aeration within both lungs. Trace left pleural effusion. XR/XR chest 1V IMPRESSION: * Cardiomegaly and pulmonary venous congestion without overt edema. * Improving aeration within both lung * Trace left pleural effusion.
--- NOTE | ~2022-04-22 | CT_ITS ---
EXAMINATION: CT ABDOMEN AND PELVIS WITHOUT CONTRAST CLINICAL INFORMATION: Abdominal pain. Distended abdomen. COMPARISON: 04/29/2022 TECHNIQUE: Multidetector volumetric imaging was performed from the superior aspect of the liver through the pubic symphysis. Sagittal and coronal reformatted images were obtained on the technologist's workstation. This CT examination was performed using dose optimization techniques as appropriate, variously including the following: *Automated exposure control *Adjustment of mA and/or kV according to patient size (this includes techniques or standardized protocols for targeted exams where dose is matched to indication/reason for exam; i.e. extremities or head) *Use of iterative reconstruction technique DLP: 1032 mGy-cm FINDINGS: LUNG BASES: The visualized lung bases are unremarkable. LIVER, GALLBLADDER, AND BILIARY TREE: The liver is normal in size, shape, and attenuation. No focal hepatic lesion or biliary ductal dilatation is present. Cholecystectomy. PANCREAS: Unremarkable. SPLEEN: Unremarkable. ADRENAL GLANDS: Unremarkable. KIDNEYS AND URETERS: The kidneys are normal in size, shape, and attenuation. No hydronephrosis, hydroureter, or calculi seen. No perinephric stranding. BLADDER: Unremarkable. GASTROINTESTINAL TRACT: The stomach is unremarkable. Mild inflammation noted along the duodenum. The remainder of the small bowel is unremarkable. Normal appendix. No colonic wall thickening or inflammatory change. No free air. ABDOMINAL WALL: No significant hernia is appreciated. LYMPH NODES: Normal. VASCULAR: Unremarkable. PELVIC VISCERA: The uterus and adnexa are unremarkable. OSSEOUS STRUCTURES: No acute or suspicious osseous abnormality. Mild degenerative change of the spine. CT/CT abdomen pelvis wo IV con IMPRESSION: Mild inflammation along the duodenum, suggestive of duodenitis. Otherwise unremarkable study. Fleischner guidelines were followed.
--- NOTE | ~2022-04-22 | CT_ITS ---
EXAMINATION: CT CHEST, ABDOMEN AND PELVIS WITHOUT CONTRAST CLINICAL INFORMATION: Increasing O2 needs, fever, Covid COMPARISON: CT angiography chest from 04/22/2022, CT abdomen and pelvis from 12/10/2021 TECHNIQUE: Multidetector volumetric CT imaging of the chest, abdomen, and pelvis was performed. Axial MIP volume rendering provided. Sagittal and coronal reformatted images were obtained. This CT examination was performed using dose optimization techniques as appropriate, variously including the following: *Automated exposure control *Adjustment of mA and/or kV according to patient size (this includes techniques or standardized protocols for targeted exams where dose is matched to indication/reason for exam; i.e. extremities or head) *Use of iterative reconstruction technique DLP: 1259 mGy-cm. FINDINGS: CHEST: LUNGS/PLEURA: Respiratory motion artifact limits evaluation. Emphysematous changes. Interval development of bilateral mid and lower lung field consolidations with air bronchograms. Subjacent atelectatic changes. Emphysematous changes. No pneumothorax. Endotracheal tube approximately 2.0 cm from the level of the jesenia. MEDIASTINUM: Heart is not enlarged. No pericardial effusion. No large coronary artery calcifications. Right-sided central venous catheter with its distal tip terminating in the atrial caval junction. No enlarged lymph nodes per size criteria. AXILLA: No lymphadenopathy. ABDOMEN AND PELVIS: LIVER, GALLBLADDER, AND BILIARY TREE: The liver is normal in size, shape, and attenuation. No focal hepatic lesion or biliary ductal dilatation is present. The gallbladder is surgically absent. PANCREAS: Unremarkable. SPLEEN: Unremarkable. ADRENAL GLANDS: Unremarkable. KIDNEYS AND URETERS: The kidneys are normal in size, shape, and attenuation. No hydronephrosis, hydroureter, or calculi seen. No perinephric stranding. BLADDER: Urinary bladder is decompressed with catheter in place. GASTROINTESTINAL TRACT: Enteric tube terminating in the stomach. The small and large bowel are unremarkable. The appendix is unremarkable. ABDOMINAL WALL: No significant hernia is appreciated. LYMPH NODES: No enlarged lymph nodes per size criteria. VASCULAR: Unremarkable. PELVIC VISCERA: Anteverted uterus. Right adnexal/ovarian hypodensities demonstrating fluid attenuation statistically representing a cyst measuring 2.1 cm. OSSEOUS STRUCTURES: Unremarkable. CT/CT abdomen pelvis wo IV con IMPRESSION: 1. Respiratory motion artifact limits evaluation. Interval development of bilateral mid and lower lung field consolidations with air bronchograms. Subjacent atelectatic changes. 2. Status post cholecystectomy. 3. Right adnexal/ovarian hypodensities demonstrating fluid attenuation statistically representing a cyst measuring 2.1 cm.
[2022-04-22 19:28] VITALS: BP 152/90; PULSE 107; O2SAT 96
[2022-04-22 19:37] VITALS: BP 151/84; PULSE 112; RESP 24; TEMP 37.9; O2SAT 92; BMI 35.5
--- NOTE | 2022-04-22 19:37 | ED_ITS ---
HPI - URI/Sore Throat General Chief Complaint: Upper Respiratory Symptoms <Pretty Brito NP - Last Filed: 04/22/22 19:45> Stated Complaint: +Covid/Fever <Pretty Brito NP - Last Filed: 04/22/22 19:45> Time Seen by Provider: 04/22/22 19:53 <Pretty Brito NP - Last Filed: 04/22/22 19:45> Source: patient and EMS <Sapna Rider MD - Last Filed: 04/22/22 23:34> Mode of arrival: EMS <Sapna Rider MD - Last Filed: 04/22/22 23:34> Limitations: no limitations <Sapna Rider MD - Last Filed: 04/22/22 23:34> History of Present Illness HPI Narrative: Patient comes to the emergency room from home via ambulance complaining of anxiety and shortness of breath. Patient states that yesterday she tested positive for COVID at home. In triage, it was noted that the patient's oxygen is 92% on room air, had diminished breath sounds, from triage albuterol was ordered. Patient denies any chest pain, complaining of shortness of breath, complaining of upper back pain bilateral <Sapna Rider MD - Last Filed: 04/22/22 23:34> Related Data Home Medications: Home Medications Medication Instructions Recorded Confirmed budesonide-formoterol HFA 160 1 puff PO BID 09/18/21 04/22/22 mcg-4.5 mcg/actuation aerosol inhaler (Symbicort) gabapentin 400 mg capsule 1 cap PO BID 09/18/21 04/22/22 hydroxyzine pamoate 50 mg capsule 50 mg PO DAILY PRN Anxiety 09/18/21 04/22/22 hydroxyzine pamoate 50 mg capsule 100 mg PO BEDTIME PRN Anxiety 09/18/21 04/22/22 paroxetine HCl 40 mg tablet 1 tab PO BEDTIME 09/18/21 04/22/22 prazosin 5 mg capsule 1 cap PO BEDTIME 09/18/21 04/22/22 riboflavin (vitamin B2) 100 mg 2 tab PO BID 09/18/21 04/22/22 tablet (Vitamin B-2) bupropion HCl 150 mg 24 hr tablet, 1 tab PO QAM 04/22/22 04/22/22 extended release cholecalciferol (vitamin D3) 50 2 tab PO DAILY 04/22/22 04/22/22 mcg (2,000 unit) tablet montelukast 10 mg tablet 1 tab PO DAILY asthma 04/22/22 04/22/22 Previous Rx's Medication Instructions Recorded acetaminophen 325 mg tablet 650 mg PO Q6H PRN fever or pain 02/13/20 (Tylenol) #14 tabs albuterol sulfate 90 mcg/actuation 1 inh inhalation QID PRN shortness 04/06/22 aerosol inhaler of breath or wheezing #8.5 grams <Pretty Brito NP - Last Filed: 04/22/22 19:45> Allergies/Adverse Reactions: Allergies Allergy/AdvReac Type Severity Reaction Status Date / Time promethazine [From PHENERGAN] Allergy Unknown ITCHING Verified 04/22/22 19:30 codeine [CODEINE] AdvReac Unknown STOMACH Verified 04/22/22 19:30 UPSET morphine [MORPHINE] AdvReac Unknown MORE PAIN Verified 04/22/22 19:30 <Pretty Brito NP - Last Filed: 04/22/22 19:45> Review of Systems Review of Systems: Constitutional : No Weight loss, No Fever, No Chills, No Night Sweats, complaining of fatigue and generalized malaise ENT/Mouth : No Hearing loss, No Ear Pain, No Nasal Congestion, No Sinus Pain, No Hoarseness, No sore throat, No Rhinorrhea, No Swallowing Difficulty Eyes: No Eye Pain, No Swelling, No Redness, No Foreign Body, No Discharge, No Vision Changes Cardiovascular : No chest pain, no orthopnea palpitations, no lower extremity edema Respiratory : Complaining of cough, no wheezing, complaining of shortness of breath Gastrointestinal : No Nausea, No Vomiting, No Diarrhea, No Constipation, No abd ominal Pain, No Hematochezia, No Melena Genitourinary : no irregular bleeding, No Dysuria, No Urinary Frequency, No Hematuria, No Urinary Incontinence, No Urgency, No Flank Pain, No Urinary Flow Changes, No Hesitancy Musculoskeletal : No joint pain, No Myalgias, No Joint Swelling Skin : No Skin Lesions, No rash Neuro : No Weakness, No Numbness, No Paresthesias, No Loss of Consciousness, No Dizziness, No Headache Psych : No Anxiety/Panic, No Depression, No SI/HI/AH/VH, No Social Issues, Heme/Lymph: No Bruising, No Bleeding,No Lymphadenopathy Endocrine : No Polyuria, No Polydipsia, No Temperature Intolerance <Sapna Rider MD - Last Filed: 04/22/22 23:34> COUNT INCLUDES THE [facility] Past Medical History Medical History: Medical History Asthma Depression Disc herniation H. pylori infection Migraine Sinus infection <Pretty Brito NP - Last Filed: 04/22/22 19:45> Surgical History: Surgical History History of <Pretty Brito NP - Last Filed: 04/22/22 19:45> Social History Social History: Social History Alcohol intake: never Advance Directives: No Advance Directives Information Provided: No service: No Current occupational status: employed <Pretty Brito NP - Last Filed: 04/22/22 19:45> Physical Exam Vital Signs: Vital Signs: Last Vital Signs Temp 100 F 04/22/22 21:50 Pulse 122 H 04/22/22 21:50 Resp 28 H 04/22/22 21:50 BP 131/69 04/22/22 21:50 Pulse Ox 95 04/22/22 21:50 O2 Del Method 04/22/22 21:50 O2 Flow Rate 4 04/22/22 21:50 BMI result Body Mass Index 35.5 <Pretty Brito NP - Last Filed: 04/22/22 19:45> Vital Signs: Last Vital Signs Temp 100 F 04/22/22 21:50 Pulse 122 H 04/22/22 21:50 Resp 28 H 04/22/22 21:50 BP 131/69 04/22/22 21:50 Pulse Ox 95 04/22/22 21:50 O2 Del Method 04/22/22 21:50 O2 Flow Rate 4 04/22/22 21:50 BMI result Body Mass Index 35.5 <Sapna Rider MD - Last Filed: 04/22/22 23:34> Const: Other: Appearance: Alert. Oriented X3. Eyes: Pupils equal, round and reactive to light. ENT: Pharynx normal. Neck: Normal inspection. Neck supple. No lymph nodes noted. No crepitus CVS: Normal heart rate and rhythm. Pulses normal. Normal S1 and S2 Respiratory: Tachypneic, oxygen saturation reduced to 86% on room air. Labored breathing, diminished breath sounds Abdomen: Soft and nontender. No rigidity. No distention. Skin: Skin warm and dry. Normal skin color. Normal skin turgor. Extremities: No lower extremity edema. No Lacerations. No Rash Neuro: Oriented X 3. No motor deficit. No sensory deficit. Moving all extremities. No slurred speech. CN 2 through 12 grossly intact Psych: calm, cooperative, normal affect <Sapna Rider MD - Last Filed: 04/22/22 23:34> Course Course Course Narrative: This is a rapid medical exam. Deferred additional HPI, ROS, PE to primary provider. 41 yo female with history of asthma, anxiety, depression, chronic back pain here with complaints of fevers, cough, nausea, headache, chest pain with coughing since yesterday. Positive for COVID last night on home test. VERY anxious in triage with tachypnea, diminished breath sounds. Pulse ox 92% RA. Patient will be brought in to ER. Ordered viral testing for flu, covid, rsv, CXR. Will give duoneb, zofran. Patient reports taking motrin and tylenol prior to arrival. <Pretty Brito NP - Last Filed: 04/22/22 19:45> This is a rapid medical exam. Deferred additional HPI, ROS, PE to primary provider. 41 yo female with history of asthma, anxiety, depression, chronic back pain here with complaints of fevers, cough, nausea, headache, chest pain with coughing since yesterday. Positive for COVID last night on home test. VERY anxious in triage with tachypnea, diminished breath sounds. Pulse ox 92% RA. Patient will be brought in to ER. Ordered viral testing for flu, covid, rsv, CXR. Will give duoneb, zofran. Patient reports taking motrin and tylenol prior to arrival. On arrival, in triage patient received albuterol treatment. Chest x-ray shows bilateral pneumonia. However, patient is significantly tachypneic, tachycardic, we will go ahead and rule out PE Patient was empirically treated with IV fluids based on ideal weight of 45 kg, p atient is morbidly obese. CT scan for pulmonary embolism is negative for PE <Sapna Rider MD - Last Filed: 04/22/22 23:34> Medications Administered Discontinued Medications Generic Name Dose Route Start Last Admin Trade Name Freq PRN Reason Stop Dose Admin Albuterol/Ipratropium 3 ml 04/22/22 19:41 04/22/22 20:03 Albuterol/Iprat 2.5/0.5mg 3 Ml Ampul.Neb INHALE 04/22/22 19:42 3 ml ONCE ONE Administration Dexamethasone Sodium Phosphate 6 mg 04/22/22 21:27 04/22/22 22:11 Dexamethasone Sod Phosphate 4 Mg/Ml Vial IVPUSH 04/22/22 21:28 6 mg ONCE ONE Administration Sodium Chloride 2,000 mls @ 999 mls/hr 04/22/22 21:27 04/22/22 22:11 Ns IVCONT 04/22/22 23:27 999 mls/hr .Q2H1M ONE Administration Ceftriaxone Sodium 1 gm/ 50 mls @ 100 mls/hr 04/22/22 21:27 04/22/22 23:12 Sodium Chloride IV 04/22/22 21:56 Infused ONCE ONE Infusion Azithromycin 500 mg/ Sodium 250 mls @ 125 mls/hr 04/22/22 21:27 04/22/22 23:09 Chloride IV 04/22/22 23:26 125 mls/hr ONCE ONE Administration Iohexol 100 ml 04/22/22 22:44 04/22/22 22:44 Iohexol 350 Mg/Ml 100 Ml Infus..Btl IV 04/22/22 22:45 70 ml ONCE ONE Administration Ketorolac Tromethamine 30 mg 04/22/22 21:11 04/22/22 21:20 Ketorolac Tromethamine 30 Mg/Ml Vial IVPUSH 04/22/22 21:12 30 mg ONCE ONE Administration Lorazepam 2 mg 04/22/22 20:00 04/22/22 20:06 Lorazepam 1 Mg Tablet PO 04/22/22 20:01 2 mg ONCE ONE Administration Ondansetron HCl 4 mg 04/22/22 19:38 04/22/22 20:06 Ondansetron Odt 4 Mg Tab.Rapdis TRANSLINGU 04/22/22 19:39 4 mg ONCE ONE Administration <Pretty Brito NP - Last Filed: 04/22/22 19:45> Medications Administered Discontinued Medications Generic Name Dose Route Start Last Admin Trade Name Boubacar PRN Reason Stop Dose Admin Albuterol/Ipratropium 3 ml 04/22/22 19:41 04/22/22 20:03 Albuterol/Iprat 2.5/0.5mg 3 Ml Ampul.Neb INHALE 04/22/22 19:42 3 ml ONCE ONE Administration Dexamethasone Sodium Phosphate 6 mg 04/22/22 21:27 04/22/22 22:11 Dexamethasone Sod Phosphate 4 Mg/Ml Vial IVPUSH 04/22/22 21:28 6 mg ONCE ONE Administration Sodium Chloride 2,000 mls @ 999 mls/hr 04/22/22 21:27 04/22/22 22:11 Ns IVCONT 04/22/22 23:27 999 mls/hr .Q2H1M ONE Administration Ceftriaxone Sodium 1 gm/ 50 mls @ 100 mls/hr 04/22/22 21:27 04/22/22 23:12 Sodium Chloride IV 04/22/22 21:56 Infused ONCE ONE Infusion Azithromycin 500 mg/ Sodium 250 mls @ 125 mls/hr 04/22/22 21:27 04/22/22 23:09 Chloride IV 04/22/22 23:26 125 mls/hr ONCE ONE Administration Iohexol 100 ml 04/22/22 22:44 04/22/22 22:44 Iohexol 350 Mg/Ml 100 Ml Infus..Btl IV 04/22/22 22:45 70 ml ONCE ONE Administration Ketorolac Tromethamine 30 mg 04/22/22 21:11 04/22/22 21:20 Ketorolac Tromethamine 30 Mg/Ml Vial IVPUSH 04/22/22 21:12 30 mg ONCE ONE Administration Lorazepam 2 mg 04/22/22 20:00 04/22/22 20:06 Lorazepam 1 Mg Tablet PO 04/22/22 20:01 2 mg ONCE ONE Administration Ondansetron HCl 4 mg 04/22/22 19:38 04/22/22 20:06 Ondansetron Odt 4 Mg Tab.Rapdis TRANSLINGU 04/22/22 19:39 4 mg ONCE ONE Administration <Sapna Rider MD - Last Filed: 04/22/22 23:34> Medical Decision Making Differential Diagnosis Differential Diagnoses: The differential diagnosis associated with the presentation includes (COVID, influenza, RSV, pneumonia, PE) <Sapna Rider MD - Last Filed: 04/22/22 23:34> Admission/Observation Consideration of admission/observation: Escalation of care including admission/observation considered (Patient became hypoxic, mid 80s, tachypneic. Patient's chest x-ray shows bilateral pneumonia) <Sapna Rider MD - Last Filed: 04/22/22 23:34> Lab Data MDM Lab Attestation statement: I reviewed the patient's lab results. <Sapna Rider MD - Last Filed: 04/22/22 23:34> Result Diagrams: : 04/22/22 21:26 04/22/22 21:26 <Pretty Brito NP - Last Filed: 04/22/22 19:45> Labs: Lab Results 04/22/22 04/22/22 04/22/22 Range/Units 20:16 21:26 21:26 WBC 15.7 H (4.8-10.8) X10*3/uL RBC 4.56 (4.20-5.50) X10*6/uL Hgb 12.7 (12.0-16.0) g/dl Hct 39.1 (37.0-47.0) % MCV 85.7 (80.0-98.0) fL MCH 27.9 (27.0-33.0) pg MCHC 32.5 (31.0-35.0) g/dl RDW 15.4 (11.0-16.0) % Plt Count 285 (160-400) X10*3/uL MPV 9.8 (9.4-12.3) fL Immature Gran % (Auto) 0.4 (0.0-0.4) % Neut % (Auto) 81.5 H (45-73) % Lymph % (Auto) 9.4 L (20-40) % [place] % (Auto) 6.5 (2-11) % Eos % (Auto) 1.8 (0-4) % Baso % (Auto) 0.4 (0-2) % Lymph # (Auto) 1.5 (1.2-4.9) X10*3/uL [place] # (Auto) 1.0 (0.1-1.2) X10*3/uL Eos # (Auto) 0.3 (0.0-0.4) X10*3/uL Baso # (Auto) 0.1 (0.0-0.2) X10*3/uL Abs Immat Gran (auto) 0.06 H (0.00-0.03) X10*3/uL Absolute Neuts (auto) 12.8 H (2.0-8.3) x10*3/uL Absolute Nucleated RBC 0.000 (0.0-0.012) X10*3/uL Nucleated RBC % (auto) 0.0 (0.0-0.2) /100WBC D-Dimer High Sensitivty 190 NG/ML VBG pH (7.32-7.43) VBG pCO2 mmHg VBG pO2 mmHg VBG HCO3 (22-26) mmol/L VBG O2 Saturation % VBG Base Excess mmol/L Sodium (135-145) mmol/L Potassium (3.3-5.1) mmol/L Chloride (96-108) mmol/L Carbon Dioxide (22-29) mmol/L Anion Gap (12-20) BUN (9-16) mg/dL Creatinine (0.5-1.4) mg/dL Estim Creat Clear Calc Estimated GFR Random Glucose (60-115) mg/dL Lactic Acid (0.5-2.0) mmol/L Calcium (8.4-10.2) mg/dL Troponin I High Sens (<3.5-17.0) ng/L B-Natriuretic Peptide (<100) pg/mL Influenza Type A (PCR) NEGATIVE (Negative) Influenza Type B (PCR) NEGATIVE (Negative) RSV RNA Qual (PCR) NEGATIVE (Negative) SARS-CoV-2 RNA (RT-PCR) POSITIVE A (Negative) 04/22/22 04/22/22 04/22/22 Range/Units 21:26 21:26 21:26 WBC (4.8-10.8) X10*3/uL RBC (4.20-5.50) X10*6/uL Hgb (12.0-16.0) g/dl Hct (37.0-47.0) % MCV (80.0-98.0) fL MCH (27.0-33.0) pg MCHC (31.0-35.0) g/dl RDW (11.0-16.0) % Plt Count (160-400) X10*3/uL MPV (9.4-12.3) fL Immature Gran % (Auto) (0.0-0.4) % Neut % (Auto) (45-73) % Lymph % (Auto) (20-40) % [place] % (Auto) (2-11) % Eos % (Auto) (0-4) % Baso % (Auto) (0-2) % Lymph # (Auto) (1.2-4.9) X10*3/uL [place] # (Auto) (0.1-1.2) X10*3/uL Eos # (Auto) (0.0-0.4) X10*3/uL Baso # (Auto) (0.0-0.2) X10*3/uL Abs Immat Gran (auto) (0.00-0.03) X10*3/uL Absolute Neuts (auto) (2.0-8.3) x10*3/uL Absolute Nucleated RBC (0.0-0.012) X10*3/uL Nucleated RBC % (auto) (0.0-0.2) /100WBC D-Dimer High Sensitivty NG/ML VBG pH (7.32-7.43) VBG pCO2 mmHg VBG pO2 mmHg VBG HCO3 (22-26) mmol/L VBG O2 Saturation % VBG Base Excess mmol/L Sodium 137 (135-145) mmol/L Potassium 4.2 (3.3-5.1) mmol/L Chloride 102 (96-108) mmol/L Carbon Dioxide 28 (22-29) mmol/L Anion Gap 11 L (12-20) BUN 8 L D (9-16) mg/dL Creatinine 0.78 (0.5-1.4) mg/dL Estim Creat Clear Calc 89.4 Estimated GFR > 60 Random Glucose 97 (60-115) mg/dL Lactic Acid (0.5-2.0) mmol/L Calcium 9.3 (8.4-10.2) mg/dL Troponin I High Sens < 3.5 (<3.5-17.0) ng/L B-Natriuretic Peptide 22 (<100) pg/mL Influenza Type A (PCR) (Negative) Influenza Type B (PCR) (Negative) RSV RNA Qual (PCR) (Negative) SARS-CoV-2 RNA (RT-PCR) (Negative) 04/22/22 04/22/22 Range/Units 21:29 21:34 WBC (4.8-10.8) X10*3/uL RBC (4.20-5.50) X10*6/uL Hgb (12.0-16.0) g/dl Hct (37.0-47.0) % MCV (80.0-98.0) fL MCH (27.0-33.0) pg MCHC (31.0-35.0) g/dl RDW (11.0-16.0) % Plt Count (160-400) X10*3/uL MPV (9.4-12.3) fL Immature Gran % (Auto) (0.0-0.4) % Neut % (Auto) (45-73) % Lymph % (Auto) (20-40) % [place] % (Auto) (2-11) % Eos % (Auto) (0-4) % Baso % (Auto) (0-2) % Lymph # (Auto) (1.2-4.9) X10*3/uL [place] # (Auto) (0.1-1.2) X10*3/uL Eos # (Auto) (0.0-0.4) X10*3/uL Baso # (Auto) (0.0-0.2) X10*3/uL Abs Immat Gran (auto) (0.00-0.03) X10*3/uL Absolute Neuts (auto) (2.0-8.3) x10*3/uL Absolute Nucleated RBC (0.0-0.012) X10*3/uL Nucleated RBC % (auto) (0.0-0.2) /100WBC D-Dimer High Sensitivty NG/ML VBG pH 7.38 (7.32-7.43) VBG pCO2 40 mmHg VBG pO2 40 mmHg VBG HCO3 24 (22-26) mmol/L VBG O2 Saturation 62.0 % VBG Base Excess -0.5 mmol/L Sodium (135-145) mmol/L Potassium (3.3-5.1) mmol/L Chloride (96-108) mmol/L Carbon Dioxide (22-29) mmol/L Anion Gap (12-20) BUN (9-16) mg/dL Creatinine (0.5-1.4) mg/dL Estim Creat Clear Calc Estimated GFR Random Glucose (60-115) mg/dL Lactic Acid 1.3 (0.5-2.0) mmol/L Calcium (8.4-10.2) mg/dL Troponin I High Sens (<3.5-17.0) ng/L B-Natriuretic Peptide (<100) pg/mL Influenza Type A (PCR) (Negative) Influenza Type B (PCR) (Negative) RSV RNA Qual (PCR) (Negative) SARS-CoV-2 RNA (RT-PCR) (Negative) <Pretty Brito, AKHIL - Last Filed: 04/22/22 19:45> Lab Results 04/22/22 04/22/22 04/22/22 Range/Units 20:16 21:26 21:26 WBC 15.7 H (4.8-10.8) X10*3/uL RBC 4.56 (4.20-5.50) X10*6/uL Hgb 12.7 (12.0-16.0) g/dl Hct 39.1 (37.0-47.0) % MCV 85.7 (80.0-98.0) fL MCH 27.9 (27.0-33.0) pg MCHC 32.5 (31.0-35.0) g/dl RDW 15.4 (11.0-16.0) % Plt Count 285 (160-400) X10*3/uL MPV 9.8 (9.4-12.3) fL Immature Gran % (Auto) 0.4 (0.0-0.4) % Neut % (Auto) 81.5 H (45-73) % Lymph % (Auto) 9.4 L (20-40) % [place] % (Auto) 6.5 (2-11) % Eos % (Auto) 1.8 (0-4) % Baso % (Auto) 0.4 (0-2) % Lymph # (Auto) 1.5 (1.2-4.9) X10*3/uL [place] # (Auto) 1.0 (0.1-1.2) X10*3/uL Eos # (Auto) 0.3 (0.0-0.4) X10*3/uL Baso # (Auto) 0.1 (0.0-0.2) X10*3/uL Abs Immat Gran (auto) 0.06 H (0.00-0.03) X10*3/uL Absolute Neuts (auto) 12.8 H (2.0-8.3) x10*3/uL Absolute Nucleated RBC 0.000 (0.0-0.012) X10*3/uL Nucleated RBC % (auto) 0.0 (0.0-0.2) /100WBC D-Dimer High Sensitivty 190 NG/ML VBG pH (7.32-7.43) VBG pCO2 mmHg VBG pO2 mmHg VBG HCO3 (22-26) mmol/L VBG O2 Saturation % VBG Base Excess mmol/L Sodium (135-145) mmol/L Potassium (3.3-5.1) mmol/L Chloride (96-108) mmol/L Carbon Dioxide (22-29) mmol/L Anion Gap (12-20) BUN (9-16) mg/dL Creatinine (0.5-1.4) mg/dL Estim Creat Clear Calc Estimated GFR Random Glucose (60-115) mg/dL Lactic Acid (0.5-2.0) mmol/L Calcium (8.4-10.2) mg/dL Troponin I High Sens (<3.5-17.0) ng/L B-Natriuretic Peptide (<100) pg/mL Influenza Type A (PCR) NEGATIVE (Negative) Influenza Type B (PCR) NEGATIVE (Negative) RSV RNA Qual (PCR) NEGATIVE (Negative) SARS-CoV-2 RNA (RT-PCR) POSITIVE A (Negative) 04/22/22 04/22/22 04/22/22 Range/Units 21:26 21:26 21:26 WBC (4.8-10.8) X10*3/uL RBC (4.20-5.50) X10*6/uL Hgb (12.0-16.0) g/dl Hct (37.0-47.0) % MCV (80.0-98.0) fL MCH (27.0-33.0) pg MCHC (31.0-35.0) g/dl RDW (11.0-16.0) % Plt Count (160-400) X10*3/uL MPV (9.4-12.3) fL Immature Gran % (Auto) (0.0-0.4) % Neut % (Auto) (45-73) % Lymph % (Auto) (20-40) % [place] % (Auto) (2-11) % Eos % (Auto) (0-4) % Baso % (Auto) (0-2) % Lymph # (Auto) (1.2-4.9) X10*3/uL [place] # (Auto) (0.1-1.2) X10*3/uL Eos # (Auto) (0.0-0.4) X10*3/uL Baso # (Auto) (0.0-0.2) X10*3/uL Abs Immat Gran (auto) (0.00-0.03) X10*3/uL Absolute Neuts (auto) (2.0-8.3) x10*3/uL Absolute Nucleated RBC (0.0-0.012) X10*3/uL Nucleated RBC % (auto) (0.0-0.2) /100WBC D-Dimer High Sensitivty NG/ML VBG pH (7.32-7.43) VBG pCO2 mmHg VBG pO2 mmHg VBG HCO3 (22-26) mmol/L VBG O2 Saturation % VBG Base Excess mmol/L Sodium 137 (135-145) mmol/L Potassium 4.2 (3.3-5.1) mmol/L Chloride 102 (96-108) mmol/L Carbon Dioxide 28 (22-29) mmol/L Anion Gap 11 L (12-20) BUN 8 L D (9-16) mg/dL Creatinine 0.78 (0.5-1.4) mg/dL Estim Creat Clear Calc 89.4 Estimated GFR > 60 Random Glucose 97 (60-115) mg/dL Lactic Acid (0.5-2.0) mmol/L Calcium 9.3 (8.4-10.2) mg/dL Troponin I High Sens < 3.5 (<3.5-17.0) ng/L B-Natriuretic Peptide 22 (<100) pg/mL Influenza Type A (PCR) (Negative) Influenza Type B (PCR) (Negative) RSV RNA Qual (PCR) (Negative) SARS-CoV-2 RNA (RT-PCR) (Negative) 04/22/22 04/22/22 Range/Units 21:29 21:34 WBC (4.8-10.8) X10*3/uL RBC (4.20-5.50) X10*6/uL Hgb (12.0-16.0) g/dl Hct (37.0-47.0) % MCV (80.0-98.0) fL MCH (27.0-33.0) pg MCHC (31.0-35.0) g/dl RDW (11.0-16.0) % Plt Count (160-400) X10*3/uL MPV (9.4-12.3) fL Immature Gran % (Auto) (0.0-0.4) % Neut % (Auto) (45-73) % Lymph % (Auto) (20-40) % [place] % (Auto) (2-11) % Eos % (Auto) (0-4) % Baso % (Auto) (0-2) % Lymph # (Auto) (1.2-4.9) X10*3/uL [place] # (Auto) (0.1-1.2) X10*3/uL Eos # (Auto) (0.0-0.4) X10*3/uL Baso # (Auto) (0.0-0.2) X10*3/uL Abs Immat Gran (auto) (0.00-0.03) X10*3/uL Absolute Neuts (auto) (2.0-8.3) x10*3/uL Absolute Nucleated RBC (0.0-0.012) X10*3/uL Nucleated RBC % (auto) (0.0-0.2) /100WBC D-Dimer High Sensitivty NG/ML VBG pH 7.38 (7.32-7.43) VBG pCO2 40 mmHg VBG pO2 40 mmHg VBG HCO3 24 (22-26) mmol/L VBG O2 Saturation 62.0 % VBG Base Excess -0.5 mmol/L Sodium (135-145) mmol/L Potassium (3.3-5.1) mmol/L Chloride (96-108) mmol/L Carbon Dioxide (22-29) mmol/L Anion Gap (12-20) BUN (9-16) mg/dL Creatinine (0.5-1.4) mg/dL Estim Creat Clear Calc Estimated GFR Random Glucose (60-115) mg/dL Lactic Acid 1.3 (0.5-2.0) mmol/L Calcium (8.4-10.2) mg/dL Troponin I High Sens (<3.5-17.0) ng/L B-Natriuretic Peptide (<100) pg/mL Influenza Type A (PCR) (Negative) Influenza Type B (PCR) (Negative) RSV RNA Qual (PCR) (Negative) SARS-CoV-2 RNA (RT-PCR) (Negative) <Sapna Rider MD - Last Filed: 04/22/22 23:34> Independent Interpretation I performed an independent interpretation of an: CT Scan (Interposition, no pulmonary embolism, bilateral pneumonia) <Sapna Rider MD - Last Filed: 04/22/22 23:34> Radiology Impression Discussion of test interpretation with radiology: I have reviewed the radiologist's reading. <Sapna Rider MD - Last Filed: 04/22/22 23:34> Radiologist Impression: FINDINGS: QUALITY OF STUDY/CONTRAST BOLUS: Satisfactory. PULMONARY ARTERIES: No central or segmental pulmonary emboli.? THORACIC AORTA: No aneurysm or dissection. LUNG: Diffuse bilateral patchy groundglass and consolidative airspace opacities present throughout both lungs, predominating in the upper lungs. No peripheral predominance. PLEURA: No pleural effusion or pneumothorax. MEDIASTINUM: Normal heart size.? No pericardial effusion. Mediastinal and bilateral hilar lymphadenopathy present, likely reactive.? No evidence of septal bowing or right heart strain. CHEST WALL/AXILLA: No axillary or internal mammary lymphadenopathy. OSSEOUS STRUCTURES: No acute or suspicious osseous abnormality.? UPPER ABDOMEN: Small sliding-type hiatal hernia. Wall thickening of the distal esophagus suspected.? No reflux of contrast into the hepatic veins to suggest elevated right heart pressures. CT/CT angio chest PE protocol IMPRESSION: *? No pulmonary embolism. *? No aortic aneurysm or dissection. *? Moderate to severe bilateral patchy consolidative and groundglass airspace opacities. These imaging features can be seen with (COVID-19 or viral) pneumonia, though are nonspecific *? and can occur with a variety of infectious and noninfectious processes. ? VTE: negative <Sapna Rider MD - Last Filed: 04/22/22 23:34> Critical Care Time Critical Care Time Critical Care Time: Yes <Sapna Rider MD - Last Filed: 04/22/22 23:34> Total Critical Care Time: 60 <Sapna Rider MD - Last Filed: 04/22/22 23:34> Attestation: I have personally provided critical care time. Time includes review of lab data, radiology results, discussion with consultants, and monitoring for potential decompensation. Intervention performed as documented. <Sapna Rider MD - Last Filed: 04/22/22 23:34> Discharge Plan Discharge Clinical Impression: COVID-19, Respiratory failure <Pretty Brito NP - Last Filed: 04/22/22 19:45> Patient Disposition: Admitted As Inpatient <Pretty Brito NP - Last Filed: 04/22/22 19:45> Prescriptions: No Action acetaminophen [Tylenol] 325 mg tablet 650 mg PO Q6H PRN (Reason: fever or pain) Qty: 14 0RF albuterol sulfate 90 mcg/actuation HFA aerosol inhaler 1 inh inhalation QID PRN (Reason: shortness of breath or wheezing) Qty: 8.5 0RF montelukast 10 mg tablet 1 tab PO DAILY bupropion HCl 150 mg tablet extended release 24 hr 1 tab PO QAM cholecalciferol (vitamin D3) 50 mcg (2,000 unit) tablet 2 tab PO DAILY riboflavin (vitamin B2) [Vitamin B-2] 100 mg tablet 2 tab PO BID gabapentin 400 mg capsule 1 cap PO BID hydroxyzine pamoate 50 mg capsule 50 mg PO DAILY PRN (Reason: Anxiety) hydroxyzine pamoate 50 mg capsule 100 mg PO BEDTIME PRN (Reason: Anxiety) prazosin 5 mg capsule 1 cap PO BEDTIME paroxetine HCl 40 mg tablet 1 tab PO BEDTIME budesonide-formoterol [Symbicort] 160-4.5 mcg/actuation HFA aerosol inhaler 1 puff PO BID <Pretty Brito NP - Last Filed: 04/22/22 19:45>
[2022-04-22] MEDS: Albuterol/Iprat 2.5/0.5MG 3 ML AMPUL.NEB INHALE (20:03)
[2022-04-22 20:04] VITALS: PULSE 112; RESP 24; O2SAT 96
[2022-04-22] MEDS: LORazepam 1 MG TABLET 2 MG PO (20:06)
[2022-04-22] MEDS: Ondansetron ODT 4 MG TAB.RAPDIS TRANSLINGU (20:06)
[2022-04-22 20:59] LABS: Influenza A PCR NEGATIVE (Negative); Influenza B PCR NEGATIVE (Negative); Resp Syncy Virus RNA Qual PCR NEGATIVE (Negative); SARS COV2 PCR INHOUSE POSITIVE (Negative)
--- NOTE | 2022-04-22 21:15 | ECG_ITS ---
Test Reason : sob Blood Pressure : / mmHG Vent. Rate : 122 BPM Atrial Rate : 122 BPM P-R Int : 122 ms QRS Dur : 086 ms QT Int : 306 ms P-R-T Axes : 041 033 018 degrees QTc Int : 436 ms Sinus tachycardia Nonspecific ST abnormality Abnormal ECG When compared with ECG of 06-APR-2022 16:53, No significant change was found Referred By: Sapna Rider Electronically Signed By:FRANKIE NIOXN MD
[2022-04-22 21:17] VITALS: BP 142/49; PULSE 122; RESP 24; O2SAT 85
[2022-04-22] MEDS: Ketorolac Tromethamine 30 MG/ML VIAL IVPUSH (21:20)
[2022-04-22 21:37] LABS: MANUAL DIFF FLAG NO
[2022-04-22 21:38] LABS: Venous Blood Gas Refer to POC result
[2022-04-22 21:39] LABS: Basophils Absolute Auto 0.1 X10*3/uL (0.0-0.2); Basophils Percent Auto 0.4 % (0-2); Eosinophils Absolute Auto 0.3 X10*3/uL (0.0-0.4); Eosinophils Percent Auto 1.8 % (0-4); Hematocrit 39.1 % (37.0-47.0); Hemoglobin 12.7 g/dl (12.0-16.0); Imm Gran Abs Auto 0.06 X10*3/uL (0.00-0.03); Imm Gran Pct Auto 0.4 % (0.0-0.4); Lymphocytes Absolute Auto 1.5 X10*3/uL (1.2-4.9); Lymphocytes Percent Auto 9.4 % (20-40); Mean Corpuscular HGB Conc 32.5 g/dl (31.0-35.0); Mean Corpuscular Hemoglobin 27.9 pg (27.0-33.0); Mean Corpuscular Volume 85.7 fL (80.0-98.0); Mean Platelet Volume 9.8 fL (9.4-12.3); Monocytes Percent Auto 6.5 % (2-11); Neutrophils Absolute Auto 12.8 x10*3/uL (2.0-8.3); Neutrophils Percent Auto 81.5 % (45-73); Platelet Count 285 X10*3/uL (160-400); Red Blood Count 4.56 X10*6/uL (4.20-5.50); Red Cell Distribution Width 15.4 % (11.0-16.0); White Blood Count 15.7 X10*3/uL (4.8-10.8)
[2022-04-22 21:43] LABS: VBG Base Excess -0.5 mmol/L; VBG HCO3 24 mmol/L (22-26); VBG pCO2 40 mmHg; VBG pH 7.38 (7.32-7.43); VBG pO2 40 mmHg
[2022-04-22 21:46] LABS: D Dimer High Sensitivity 190 NG/ML
[2022-04-22 21:50] VITALS: BP 131/69; PULSE 122; RESP 28; TEMP 37.7; O2SAT 95
[2022-04-22 21:53] LABS: Lactic Acid 1.3 mmol/L (0.5-2.0)
[2022-04-22 21:57] LABS: Anion Gap 11 (12-20); Blood Urea Nitrogen 8 mg/dL (9-16); Calcium 9.3 mg/dL (8.4-10.2); Carbon Dioxide 28 mmol/L (22-29); Chloride 102 mmol/L (96-108); Creatinine Clr Calc Pharmacy 89.4; Estimated Glomerular Filt Rate > 60; Glucose Random 97 mg/dL (60-115); Potassium 4.2 mmol/L (3.3-5.1); Sodium 137 mmol/L (135-145)
[2022-04-22 22:03] LABS: B Type Natriuretic Peptide 22 pg/mL (<100)
[2022-04-22 22:04] LABS: Troponin-I High Sensitivity < 3.5 ng/L (<3.5-17.0)
[2022-04-22] MEDS: 0.9 % Sodium Chloride 2,000 ML 999 ML IVCONT (22:11)
[2022-04-22] MEDS: dexAMETHasone sod phosphate 4 MG/ML VIAL 6 MG IVPUSH (22:11)
[2022-04-22] MEDS: cefTRIAXone sodium 1 GM in 0.9 % Sodium Chloride 50 ML IV (22:12)
[2022-04-22] MEDS: iohexoL 350 MG/ML 100 ML INFUS..BTL IV (22:44)
[2022-04-22] MEDS: Azithromycin 500 MG in 0.9 % Sodium Chloride 250 ML 125 MG IV (23:09)
[2022-04-22] MEDS: Acetaminophen 325 MG TABLET 650 MG PO (23:52)
[2022-04-23] VITALS (29 sets, daily range): BP systolic 85–152; BP diastolic 45–112; PULSE 80–115; RESP 16–45; TEMP 34.6–38.2; O2SAT 86–98
--- NOTE | 2022-04-23 00:28 | PC.NURSE ---
Ekg done by previous shift at 20:23 on 04/22/22
--- NOTE | 2022-04-23 00:36 | PM.IMHP ---
History of Present Illness Date of Service: 04/23/22 Chief Complaint: shortness of breath Turkmen-speaking only, 41-year-old female with past medical history of asthma, migraine headaches, disc herniation presents to the hospital with complaints of shortness of breath, cough, as well as sputum production since yesterday. Patient reports very difficulty breathing, with minimal exertion. She is reporting reproducible chest pain in the center of her chest specially with coughing. The pain is sharp, radiating to the back. denies any nausea, no vomiting, no diarrhea constipation: A urinary symptoms and no lower extremity edema. On arrival to the ED patient was noted to be febrile with a temperature of a 100.2 degrees, heart rate of 112, respiratory rate of 24, satting 92% on room air, but patient did become hypoxic with 85% currently on 4 L of oxygen satting 94%. Labs are significant for For WBC count of 15.7, chest CT angiogram shows no PE, no aortic aneurysm or dissection, shows moderate to severe bilateral patchy consolidative and ground-glass airspace opacities seen with COVID-19 pneumonia Review of Systems Review of Systems: Yes all other systems are reviewed and are negative [facility] Medical History Asthma Depression Disc herniation H. pylori infection Migraine Sinus infection Surgical History History of Social History Household Members: Family Housing: Apartment Do you presently have visiting nurse or other home services: No Alcohol intake: never Patient Tobacco Use Status: Current everyday Tobacco user Tobacco use type: Cigarette Smoked in Last 30 Days: Yes Patient Interested in Nicotine Replacement: No Patient Given Instructions on How to Stop Smoking: Yes Date Education Initiated: 04/23/22 Second Hand Smoke Exposure: Yes Use of substances other than those prescribed or required for medical reasons: No Have you been hit, kicked, punched, or otherwise hurt by someone within the past year? If so, by whom?: No Do you feel safe in your current relationship?: Yes Is there a partner from a previous relationship who is making you feel unsafe now?: No Are you made to feel afraid or neglected: No Advance Directives: No Advance Directives Information Provided: No Do you have thoughts of harming others: None Do you have a plan to hurt others: No Plan Recently lost weight without trying: No Eating poorly because of decreased appetite: No Nutrition Risks: No Nutritional Risk Patient : No : No Poor oral hygiene: No service: No Current occupational status: employed Meds Allergies Allergy/AdvReac Type Severity Reaction Status Date / Time promethazine [From PHENERGAN] Allergy Unknown ITCHING Verified 04/22/22 19:30 codeine [CODEINE] AdvReac Unknown STOMACH Verified 04/22/22 19:30 UPSET morphine [MORPHINE] AdvReac Unknown MORE PAIN Verified 04/22/22 19:30 Active Medications: Current Medications Dexamethasone Sodium Phosphate (Dexamethasone Sod Phosphate 4 Mg/Ml Vial) 6 mg IVPUSH DAILY [facility] Pharmacy Consult (Consult Rx Perform Med Rec) 1 each MISCELLANE ONCE PRN PRN Reason: Consult order Home Medications Medication Instructions Recorded Confirmed Last Taken Type budesonide-formoterol HFA 160 1 puff PO BID 09/18/21 04/22/22 09/16/21 History mcg-4.5 mcg/actuation aerosol inhaler (Symbicort) gabapentin 400 mg capsule 1 cap PO BID 09/18/21 04/22/22 09/16/21 History hydroxyzine pamoate 50 mg capsule 50 mg PO DAILY PRN Anxiety 09/18/21 04/22/22 09/16/21 History hydroxyzine pamoate 50 mg capsule 100 mg PO BEDTIME PRN Anxiety 09/18/21 04/22/22 09/16/21 History paroxetine HCl 40 mg tablet 1 tab PO BEDTIME 09/18/21 04/22/22 09/16/21 History prazosin 5 mg capsule 1 cap PO BEDTIME 09/18/21 04/22/22 09/16/21 History riboflavin (vitamin B2) 100 mg 2 tab PO BID 09/18/21 04/22/22 09/16/21 History tablet (Vitamin B-2) bupropion HCl 150 mg 24 hr tablet, 1 tab PO QAM 04/22/22 04/22/22 Unknown History extended release cholecalciferol (vitamin D3) 50 2 tab PO DAILY 04/22/22 04/22/22 Unknown History mcg (2,000 unit) tablet montelukast 10 mg tablet 1 tab PO DAILY asthma 04/22/22 04/22/22 Unknown History Physical Exam Vital Signs and Narrative: Vital Signs: Last Vital Signs Temp 98.3 F 04/23/22 00:22 Pulse 115 H 04/23/22 00:22 Resp 25 H 04/23/22 00:22 BP 130/77 04/23/22 00:22 Pulse Ox 91 L 04/23/22 00:22 O2 Del Method 04/23/22 00:22 O2 Flow Rate 3 04/23/22 00:22 BMI result Body Mass Index 35.5 Const: Other: obesity General: cooperative and no acute distress Orientation/consciousness: patient oriented x3 Eyes: General: appearance normal, both eyes and all related structures Resp: Other: tachypnea, no use of accessory muscles, no wheezing bilateral crackles Cardio: Rate: regular rate Rhythm: regular rhythm GI: Palpation (GI): Soft to palpation Auscultation: normal bowel sounds Skin: General skin exam: no rashes or lesions noted Neuro: General: patient oriented x3 Cognition (Neuro): normal cognition Extrem: General: Yes normal to inspection and Yes no pedal edema Results Labs CBC and Chem 7: 04/22/22 21:26 04/22/22 21:26 Labs: Laboratory Results - last 24 hr 04/22/22 04/22/22 04/22/22 20:16 21:26 21:26 MCV 85.7 MCH 27.9 MCHC 32.5 RDW 15.4 Plt Count 285 MPV 9.8 Immature Gran % (Auto) 0.4 Neut % (Auto) 81.5 H Lymph % (Auto) 9.4 L [place] % (Auto) 6.5 Eos % (Auto) 1.8 Baso % (Auto) 0.4 Lymph # (Auto) 1.5 [place] # (Auto) 1.0 Eos # (Auto) 0.3 Baso # (Auto) 0.1 Abs Immat Gran (auto) 0.06 H Absolute Neuts (auto) 12.8 H Absolute Nucleated RBC 0.000 Nucleated RBC % (auto) 0.0 D-Dimer High Sensitivty 190 VBG pH VBG pCO2 VBG pO2 VBG HCO3 VBG O2 Saturation VBG Base Excess Anion Gap Estim Creat Clear Calc Estimated GFR Random Glucose Lactic Acid Calcium Troponin I High Sens B-Natriuretic Peptide Influenza Type A (PCR) NEGATIVE Influenza Type B (PCR) NEGATIVE RSV RNA Qual (PCR) NEGATIVE SARS-CoV-2 RNA (RT-PCR) POSITIVE A 04/22/22 04/22/22 04/22/22 21:26 21:26 21:26 MCV MCH MCHC RDW Plt Count MPV Immature Gran % (Auto) Neut % (Auto) Lymph % (Auto) [place] % (Auto) Eos % (Auto) Baso % (Auto) Lymph # (Auto) [place] # (Auto) Eos # (Auto) Baso # (Auto) Abs Immat Gran (auto) Absolute Neuts (auto) Absolute Nucleated RBC Nucleated RBC % (auto) D-Dimer High Sensitivty VBG pH VBG pCO2 VBG pO2 VBG HCO3 VBG O2 Saturation VBG Base Excess Anion Gap 11 L Estim Creat Clear Calc 89.4 Estimated GFR > 60 Random Glucose 97 Lactic Acid Calcium 9.3 Troponin I High Sens < 3.5 B-Natriuretic Peptide 22 Influenza Type A (PCR) Influenza Type B (PCR) RSV RNA Qual (PCR) SARS-CoV-2 RNA (RT-PCR) 04/22/22 04/22/22 21:29 21:34 MCV MCH MCHC RDW Plt Count MPV Immature Gran % (Auto) Neut % (Auto) Lymph % (Auto) [place] % (Auto) Eos % (Auto) Baso % (Auto) Lymph # (Auto) [place] # (Auto) Eos # (Auto) Baso # (Auto) Abs Immat Gran (auto) Absolute Neuts (auto) Absolute Nucleated RBC Nucleated RBC % (auto) D-Dimer High Sensitivty VBG pH 7.38 VBG pCO2 40 VBG pO2 40 VBG HCO3 24 VBG O2 Saturation 62.0 VBG Base Excess -0.5 Anion Gap Estim Creat Clear Calc Estimated GFR Random Glucose Lactic Acid 1.3 Calcium Troponin I High Sens B-Natriuretic Peptide Influenza Type A (PCR) Influenza Type B (PCR) RSV RNA Qual (PCR) SARS-CoV-2 RNA (RT-PCR) Imaging Radiologist's Impressions: Impressions Chest X-Ray 04/22/22 20:45 IMPRESSION: 1. Interval development of multiple nodular airspace opacities within both lungs since recent prior. Findings suggest multifocal pneumonia or alternatively septic emboli in the appropriate clinical setting. 2. No pleural effusions or pneumothorax. 3. Prominence of the right and left ade, possibly adenopathy. Chest CTA 04/22/22 22:45 IMPRESSION: * No pulmonary embolism. * No aortic aneurysm or dissection. * Moderate to severe bilateral patchy consolidative and groundglass airspace opacities. These imaging features can be seen with (COVID-19 or viral) pneumonia, though are nonspecific * and can occur with a variety of infectious and noninfectious processes. VTE: negative Assessment and Plan (1) Pneumonia due to COVID-19 virus: Status: Acute (2) Acute respiratory failure with hypoxia: Status: Acute Plan 41-year-old female with past medical history of asthma presents to the hospital with complaints of shortness of breath found to have pneumonia secondary to COVID-19 infection # COVID-19 infection pneumonia - will treat with Decadron - continue oxygen as required - monitor respiratory status # acute respiratory failure with hypoxia - secondary to COVID-19 pneumonia - continue oxygen supplement, to continue Decadron 6 mg daily - monitor respiratory status - DuoNeb p.r.n. # history of anxiety - received 1 dose of Ativan p.o. - continue home hydroxyzine as well as Wellbutrin and prazosin DVT prophylaxis: Lovenox given significant hypoxia patient required minimum [facility] inpatient hospital stay for further management monitor Time Spent With Patient Time: Total time managing care of this patient today ____ minutes. Quality Stroke Does the patient have a stroke diagnosis?: No VTE Prior VTE?: No VTE Risk Level:: Medical - moderate - high VTE Device Contraindication: Treatment Not Indicated VTE Drug Contraindication: N/A - Med Ordered
[2022-04-23] MEDS: oxyCODONE HCl Immed Release 5 MG TABLET PO (01:21)
[2022-04-23] MEDS: ondansetron HCL 4 MG/2 ML VIAL IVPUSH (01:22)
[2022-04-23] MEDS: Enoxaparin Sodium 40 MG/0.4 ML SYRINGE SUBCUT (01:23)
--- NOTE | 2022-04-23 04:30 | PC.NURSE ---
PT ANXIOUS,COUGHING UP BLOOD TINGED SPUTUM. NOTIFIED.ORDER FOR ATIVAN 0.5MG PO X 1 AND MS 4MG IV X 1 GIVEN.MEDS GIVEN WITH GOOD EFFECT.RESTING QUIETLY AFTER,SATS 91% ON O2 5L.
[2022-04-23] MEDS: LORazepam 0.5 MG TABLET PO (04:31)
[2022-04-23] MEDS: Morphine Sulfate 4 MG/ML CARTRIDGE IVPUSH (04:31)
[2022-04-23 04:35] LABS: Procalcitonin 0.02 ng/mL
--- NOTE | 2022-04-23 06:30 | MHC.PIE ---
P.INCREASED RESP DISTRESS,LOW SATS I.PT AWAKE,ANXIOUS.SATS DECREASED TO 60'S ON O2 5L.RESP CALLED AND TO FLOOR.PT PLACED ON BIPAP BY RESP. POSSIBLE TRANSFER TO ICU.NOTIFIED BY MIKE FROM ICU THAT HE WILL SEE PATIENT.MIKE UP TO FLOOR,CHANGED BIPAP TO CPAP AND ORDER TO GIVE DILAUDID I MG IV X 1,AND STAT ABGS AND PRN UPDRAFTS.STATES TO HOLD OFF ON ICU TRANSFER.PT RESTING QUIETLY ON CPAP.SATS 92%.AWAIT ABG RESULTS.NEXT SHIFT UPDATED. E.CONT TO MONITOR.
[2022-04-23 06:37] LABS: Basophils Percent Auto 0.2 % (0-2); Hematocrit 40.5 % (37.0-47.0); Imm Gran Pct Auto 0.9 % (0.0-0.4); Lymphocytes Percent Auto 4.4 % (20-40); MANUAL DIFF FLAG SCAN; Mean Corpuscular HGB Conc 32.1 g/dl (31.0-35.0); Mean Corpuscular Volume 87.1 fL (80.0-98.0); Mean Platelet Volume 10.3 fL (9.4-12.3); Monocytes Absolute Auto 0.7 X10*3/uL (0.1-1.2); Neutrophils Absolute Auto 19.9 x10*3/uL (2.0-8.3); Neutrophils Percent Auto 91.5 % (45-73); Platelet Count 243 X10*3/uL (160-400); Red Blood Count 4.65 X10*6/uL (4.20-5.50); Red Cell Distribution Width 15.6 % (11.0-16.0); SCAN SMEAR FLAG 1; White Blood Count 21.7 X10*3/uL (4.8-10.8)
--- NOTE | 2022-04-23 06:46 | PM.EVENT ---
Event Note Date of Service: 04/23/22 Event Note: at around 06:30 on waking up patient developed significant shortness of breath, with hypoxia dropping to 70% on 5 L of nasal cannula. According to the nurse while she was sleeping, O2 with stable in the low 90s. On my exam patient is tachypneic, tachycardia, very dyspnea, respiratory therapist has placed her on BiPAP prior to my arrival with improvement in her O2 to 91%. Discussed case with intensive care unit, provider will evaluate patient Time Spent With Patient Time: Total time managing care of this patient today ____ minutes.
[2022-04-23] MEDS: HYDROmorphone HCl 1 MG/ML SYRINGE IVPUSH (06:52)
[2022-04-23 06:55] LABS: ABG HCO3 22 mmol/L (22-26); ABG pCO2 43 mmHg (32-45); ABG pO2 96 mmHg (83-108)
[2022-04-23 07:00] LABS: SLIDE REVIEW VERIFIED
[2022-04-23 07:26] LABS: Anion Gap 17 (12-20); Blood Urea Nitrogen 6 mg/dL (9-16); Calcium 8.6 mg/dL (8.4-10.2); Carbon Dioxide 19 mmol/L (22-29); Chloride 107 mmol/L (96-108); Creatinine Clr Calc Pharmacy 89.4; Estimated Glomerular Filt Rate > 60; Glucose Random 120 mg/dL (60-115); Potassium 4.8 mmol/L (3.3-5.1); Sodium 138 mmol/L (135-145)
--- NOTE | 2022-04-23 07:32 | PHA.MEDREC ---
Pharmacy Consult ? Medication Reconciliation Pharmacy has completed the medication reconciliation.
--- NOTE | 2022-04-23 08:51 | MHC.CM.PN ---
CM MET WITH PT AT BEDSIDE, PT UNABLE TO PARTICIPATE IN ASSESSMENT DUE TO INCREASED SOB, RN IN TO ASSESS. PER CHART REVIEW, LIVES IN APT WITH SPOUSE. NO HCP ON FILE. UNABLE TO REACH SPOUSE VIA TELEPHONE. WILL CONTINUE TO FOLLOW FOR FURTHER ASSESSMENT.
[2022-04-23] MEDS: dexAMETHasone sod phosphate 4 MG/ML VIAL 6 MG IVPUSH (09:19)
[2022-04-23] MEDS: 0.9 % Sodium Chloride Flush 3 ML SYRINGE IVFLUSH ×2 (09:20→23:40)
--- NOTE | 2022-04-23 10:39 | PM.EVENT ---
Event Note Date of Service: 04/23/22 Event Note: The patient was seen and evaluated earlier This morning. In respiratory distress, increased work of breathing, Changed from CPAP to BiPAP Discussed with ICU team for possible transfer. Evaluated by Dr. De Leon who agreed to take the patient out to the ICU unit. Time Spent With Patient Time: Total time managing care of this patient today ____ minutes.
[2022-04-23] MEDS: methylPREDNISolone Sod Succ 125 MG/2 ML VIAL 80 MG IVPUSH (10:57)
[2022-04-23] MEDS: HYDROmorphone HCl 0.5 MG/0.5 ML SYRINGE IVPUSH ×2 (10:57→11:16)
[2022-04-23] MEDS: Famotidine/PF 20 MG/2 ML VIAL 40 MG IVPUSH ×2 (10:57→21:08)
--- NOTE | 2022-04-23 10:57 | PM.CCPN ---
Subjective Subjective Date of Service: 04/23/22 Interval History: Mrs. Multani was transferred to ICU this morning with acute respiratory distress and hypoxemic resp failure 2? COVID pneumonia. The patient is a 41-year-old female w PMHx of obesity (BMI 35) asthma, migraine headaches, anxiety, disc herniation. The patient was BIBA to the ED yesterday c/o SOB, severe MORROW, cough, and sputum production x 1 day.? No GI Sx. ?She said that she tested positive for COVID at home the day prior. On arrival to the ED, the temp was 100.2 degrees, HR 112, RR 24.? Initial Sat 92% on RA in triage, then later 85% on room air.? On 4L, Sat was 95%.? Chest exam showed labored breathing with diminished BS. Labs in the ED notable for COVID PCR positive.? WBC 15 w lymphopenia, DDimer 190, BUN/creatinine 8/0.7, lactic acid 1.3, normal troponin and BNP, and procalcitonin 0.02.? Chest x-ray showed diffuse bilateral patchy infiltrates, typical for COVID pneumonia.? Chest CT showed diffuse bilateral patchy ground-glass infiltrates, again typical for COVID.? CTPA showed normal heart, normal PA size, no PE. She was admitted to Medicine with dx of COVID pneumonia and resp failure, and put on Decadron, bronchodilators, and prophylactic dose Lovenox.? Overnight she was on 3 L nasal cannula, satting 93%.? Early this morning, she dropped her sat.? On 5 L nasal cannula sat was 86%.? This morning she was put on BiPAP, satting 89% on 80% FiO2. ?Arterial blood gas this morning (on ? 80% BiPAP), showed 7.30/43/96/-4. [place] [facility] [place] She was on BiPAP with very poor mask fit, it wasn?t clear that she was getting any beneficial tidal vols. ??She was tachypneic, although not tugging that much, more dyssynchronous.? I arranged for transfer to the ICU. On arrival as she was settling in, she is alert and talking, seems appropriate.? Still breathing with poor mask fit.? On the best fit I was able to achieve, leak was 40-50, respiratory rate about 40 on AVAPS 500cc, with Vt about 500cc, Ve 20L.? HR 103, SR.? BP 124/61.? Temp 100.8?.? No clear JVD at 30-40?.? Chest diff to hear over the BiPAP, but I think it?s clear.? No rhonchi or wheeze, normal exp phase.? Could not hear heart tones.? Abd is obese, benign.? She has at least 1+ pretibial edema, can?t evaluate central edema bec of her habitus. LABORATORY DATA:? As above. IMPRESSION: 1. Underlying asthma.? Continue BDs (FWIW). 2. Underlying obesity 3. Bilat COVID pneumonia. ?I?ve changed her to bid Solumedrol.? CRP pending.? If elevated, I would increase to 80 mg bid.? Upped her Lovenox to 60 mg daily.? Added Baricitinib, Vit C, melatonin, thiamine, spironolactone, MVI, Vit D, Pepcid,and atorvastatin.? Would add doxycycline if her PCT ho. 4. Acute hypoxemic resp failure.? BiPAP.? Opiates titrated to get RR down into low 30s.? At some point, she needs a CVL for VBGs. 5. Blood glucose.? At some point, her glucose levels will rise.? Check Hb A1c. Critical care time (including full chart rev and mult visits to the bedside, for reassessments and BiPAP problems):? 100 min. Critical Care Time (minutes): 100 Physical Exam Vital Signs: Vital Signs: Last Vital Signs Temp 100.8 F H 04/23/22 10:10 Pulse 103 H 04/23/22 08:00 Resp 45 H 04/23/22 09:11 BP 123/72 04/23/22 08:00 Pulse Ox 89 L 04/23/22 08:00 O2 Del Method 04/23/22 08:00 O2 Flow Rate 80 04/23/22 08:00 BMI result Body Mass Index 35.5 Objective Data Labs CBC & Chem 7: 04/23/22 06:01 04/23/22 06:01 Labs: Laboratory Results - last 24 hr 04/22/22 04/22/22 04/22/22 20:16 21:26 21:26 WBC 15.7 H RBC 4.56 Hgb 12.7 Hct 39.1 MCV 85.7 MCH 27.9 MCHC 32.5 RDW 15.4 Plt Count 285 MPV 9.8 Immature Gran % (Auto) 0.4 Neut % (Auto) 81.5 H Lymph % (Auto) 9.4 L [place] % (Auto) 6.5 Eos % (Auto) 1.8 Baso % (Auto) 0.4 Lymph # (Auto) 1.5 [place] # (Auto) 1.0 Eos # (Auto) 0.3 Baso # (Auto) 0.1 Abs Immat Gran (auto) 0.06 H Absolute Neuts (auto) 12.8 H Absolute Nucleated RBC 0.000 Nucleated RBC % (auto) 0.0 Smear Tech's Comments D-Dimer High Sensitivty 190 O2 Saturation ABG pH at Pt Temp ABG pCO2 at Pt Temp ABG pO2 at Pt Temp ABG HCO3 ABG Base Excess (Actual) VBG pH VBG pCO2 VBG pO2 VBG HCO3 VBG O2 Saturation VBG Base Excess Sodium Potassium Chloride Carbon Dioxide Anion Gap BUN Creatinine Estim Creat Clear Calc Estimated GFR Random Glucose Lactic Acid Calcium Troponin I High Sens B-Natriuretic Peptide Procalcitonin Influenza Type A (PCR) NEGATIVE Influenza Type B (PCR) NEGATIVE RSV RNA Qual (PCR) NEGATIVE SARS-CoV-2 RNA (RT-PCR) POSITIVE A 04/22/22 04/22/22 04/22/22 21:26 21:26 21:26 WBC RBC Hgb Hct MCV MCH MCHC RDW Plt Count MPV Immature Gran % (Auto) Neut % (Auto) Lymph % (Auto) [place] % (Auto) Eos % (Auto) Baso % (Auto) Lymph # (Auto) [place] # (Auto) Eos # (Auto) Baso # (Auto) Abs Immat Gran (auto) Absolute Neuts (auto) Absolute Nucleated RBC Nucleated RBC % (auto) Smear Tech's Comments D-Dimer High Sensitivty O2 Saturation ABG pH at Pt Temp ABG pCO2 at Pt Temp ABG pO2 at Pt Temp ABG HCO3 ABG Base Excess (Actual) VBG pH VBG pCO2 VBG pO2 VBG HCO3 VBG O2 Saturation VBG Base Excess Sodium 137 Potassium 4.2 Chloride 102 Carbon Dioxide 28 Anion Gap 11 L BUN 8 L D Creatinine 0.78 Estim Creat Clear Calc 89.4 Estimated GFR > 60 Random Glucose 97 Lactic Acid Calcium 9.3 Troponin I High Sens < 3.5 B-Natriuretic Peptide 22 Procalcitonin Influenza Type A (PCR) Influenza Type B (PCR) RSV RNA Qual (PCR) SARS-CoV-2 RNA (RT-PCR) 04/22/22 04/22/22 04/22/22 21:26 21:29 21:34 WBC RBC Hgb Hct MCV MCH MCHC RDW Plt Count MPV Immature Gran % (Auto) Neut % (Auto) Lymph % (Auto) [place] % (Auto) Eos % (Auto) Baso % (Auto) Lymph # (Auto) [place] # (Auto) Eos # (Auto) Baso # (Auto) Abs Immat Gran (auto) Absolute Neuts (auto) Absolute Nucleated RBC Nucleated RBC % (auto) Smear Tech's Comments D-Dimer High Sensitivty O2 Saturation ABG pH at Pt Temp ABG pCO2 at Pt Temp ABG pO2 at Pt Temp ABG HCO3 ABG Base Excess (Actual) VBG pH 7.38 VBG pCO2 40 VBG pO2 40 VBG HCO3 24 VBG O2 Saturation 62.0 VBG Base Excess -0.5 Sodium Potassium Chloride Carbon Dioxide Anion Gap BUN Creatinine Estim Creat Clear Calc Estimated GFR Random Glucose Lactic Acid 1.3 Calcium Troponin I High Sens B-Natriuretic Peptide Procalcitonin 0.02 Influenza Type A (PCR) Influenza Type B (PCR) RSV RNA Qual (PCR) SARS-CoV-2 RNA (RT-PCR) 04/23/22 04/23/22 04/23/22 06:01 06:01 06:49 WBC 21.7 H RBC 4.65 Hgb 13.0 Hct 40.5 MCV 87.1 MCH 28.0 MCHC 32.1 RDW 15.6 Plt Count 243 MPV 10.3 Immature Gran % (Auto) 0.9 H Neut % (Auto) 91.5 H Lymph % (Auto) 4.4 L [place] % (Auto) 3.0 Eos % (Auto) 0.0 Baso % (Auto) 0.2 Lymph # (Auto) 1.0 L [place] # (Auto) 0.7 Eos # (Auto) 0.0 Baso # (Auto) 0.0 Abs Immat Gran (auto) 0.20 H Absolute Neuts (auto) 19.9 H Absolute Nucleated RBC 0.000 Nucleated RBC % (auto) 0.0 Smear Tech's Comments VERIFIED D-Dimer High Sensitivty O2 Saturation 97.0 ABG pH at Pt Temp 7.30 L ABG pCO2 at Pt Temp 43 ABG pO2 at Pt Temp 96 ABG HCO3 22 ABG Base Excess (Actual) -4.0 VBG pH VBG pCO2 VBG pO2 VBG HCO3 VBG O2 Saturation VBG Base Excess Sodium 138 Potassium 4.8 Chloride 107 Carbon Dioxide 19 L Anion Gap 17 BUN 6 L Creatinine 0.78 Estim Creat Clear Calc 89.4 Estimated GFR > 60 Random Glucose 120 H Lactic Acid Calcium 8.6 D Troponin I High Sens B-Natriuretic Peptide Procalcitonin Influenza Type A (PCR) Influenza Type B (PCR) RSV RNA Qual (PCR) SARS-CoV-2 RNA (RT-PCR) Quality Stroke Does the patient have a stroke diagnosis?: No VTE Prior VTE?: No VTE Risk Level:: Medical - moderate - high VTE Device Contraindication: Treatment Not Indicated VTE Drug Contraindication: N/A - Med Ordered Critical Care Time Critical Care Time (minutes): 90
[2022-04-23] MEDS: Thiamine HCL 200 MG in 0.9 % Sodium Chloride 100 ML 204 MG IV ×2 (11:16→23:37)
[2022-04-23] MEDS: fentaNYL citrate/NS 1,000 MCG/100 ML PLAST..BAG 5 MCG IVCONT (11:34)
[2022-04-23 11:59] LABS: C Reactive Protein 14.76 mg/dL (< or = 0.50); Lactate Dehydrogenase 608 U/L (122-220)
[2022-04-23] MEDS: Magnesium Sulfate/D5W 1 GM/100 ML PIGGYBACK IV (12:12)
--- NOTE | 2022-04-23 12:22 | PC.NURSE ---
Assumed care at 07:00. patient had recently been seen by ICU PA. Had recently had IV dilaudid. Still with increased WOB, acc muscle use, tachypnea RR 36; RT to bedside, says failing despite CPAP, disucssed with MD and new order for BiPAP, patient on AVAPs with TV 500, actual 450. Patient minute volume reportedly 24 before AVAPs and 18-19 after, appears slightly more comfortable. ICU physician up to assess. Patient transferred to ICU, and report to Maeve REHMAN
[2022-04-23 12:32] LABS: Estimated Average Glucose 108 mg/dL; Hemoglobin A1c % 5.4 %
--- NOTE | 2022-04-23 12:50 | P.CDIC_ITS ---
CDI Concurrent Query Documentation Clarification: PHYSICIAN'S DOCUMENTATION REQUEST Date of Query: 04/23/22 1250 Patient Name: Gail Multani Admit Date: 04/23/22 Dear Doctor, Please review the following and provide your response in the progress notes. Clinical Indicators: Risk Factors/Clinical Indicators/Treatments ICU progress note 04/23 - Underlying Asthma, continue BD's (FWIW) Albuterol Based on the above, please clarify in the Progress Notes further specificity regarding the type and acuity of the asthma: Type: * Mild intermittent - less than 2x/week * Mild persistent - more than 2x/week but not daily * Moderate persistent - daily and may restrict physical activity * Severe persistent - throughout the day with frequent attacks, limiting activities * Exercise induced * Other ? please specify * Unable to determine Acuity: * With acute exacerbation * With status asthmaticus * Uncomplicated * Unable to determine Use of terms such as suspected, likely, concern for, or probable (associated with a specific diagnosis that is being evaluated, monitored, or treated as if it exists) are acceptable and can be coded in the inpatient setting, when documented at the time of discharge. Thank you, Kymberly Bhandari [facility], CDIS Extension: [phone] Please use your independent medical judgment in providing your response. THIS QUERY IS PART OF THE PERMANENT MEDICAL RECORD Provider Response: Other (COVID pneumonia) Other Diagnosis: COVID pneumonia
--- NOTE | 2022-04-23 12:50 | MHC.CDI.CONC ---
CDI Concurrent Query Documentation Clarification: PHYSICIAN'S DOCUMENTATION REQUEST Date of Query: 04/23/22 1250 Patient Name: Gail Multani Admit Date: 04/23/22 Dear Doctor, Please review the following and provide your response in the progress notes. Clinical Indicators: Risk Factors/Clinical Indicators/Treatments ICU progress note 04/23 - Underlying Asthma, continue BD's (FWIW) Albuterol Based on the above, please clarify in the Progress Notes further specificity regarding the type and acuity of the asthma: Type: Mild intermittent - less than 2x/week Mild persistent - more than 2x/week but not daily Moderate persistent - daily and may restrict physical activity Severe persistent - throughout the day with frequent attacks, limiting activities Exercise induced Other ? please specify Unable to determine Acuity: With acute exacerbation With status asthmaticus Uncomplicated Unable to determine Use of terms such as suspected, likely, concern for, or probable (associated with a specific diagnosis that is being evaluated, monitored, or treated as if it exists) are acceptable and can be coded in the inpatient setting, when documented at the time of discharge. Thank you, Kymberly Bhandari [facility], CDIS Extension: [phone] Please use your independent medical judgment in providing your response. THIS QUERY IS PART OF THE PERMANENT MEDICAL RECORD Provider Response: Other (COVID pneumonia) Other Diagnosis: COVID pneumonia
[2022-04-23] MEDS: HYDROmorphone HCl 0.5 MG/0.5 ML SYRINGE 1 MG IVPUSH (13:30)
[2022-04-23 13:57] LABS: Ferritin 123 ng/mL (10-250)
[2022-04-23 14:54] LABS: ABG Refer to POC result
--- NOTE | 2022-04-23 15:30 | MHC.CM.PN ---
EMR REVIEWED, PT ADMITTED TO IMC AND TRANSFERRED TO ICU, PT HYPOXIC W/COVID19, CM CONTACTED PT'S LUCERO WHO EXPLAINED THAT NIMISHA WHO IS CALLING FOR INFORMATION REPORTING SHE IS PT'S DTR IS NOT ACTUALLY HER DTR AND NIMISHA IS ONE OF PT'S DTR'S FATHERS , NIMISHA CALLED ICU AGAIN AND PER ICU NIMISHA HAS BEEN MADE AWARE THAT INFORMATION WILL ONLY BE GIVEN TO PT'S LUCERO. PER PT'S LUCERO PT IS HOME ALL DAY CHAIN SMOKING AND DRINKING COFFEE AND SODA, PT USES ASTHMA INHALERS AND HAS A SHOWER CHAIR SHE IS UNSTEADY AND NEEDS ASSISTANCE W/SHOWERING. LUCERO DENIES PT HAS ANY HX OF ETOH OR SUBSTANCE ABUSE. LUCERO VERIFIES COVID VACC X2 AND UNSURE IF PFIZER/MODERNA. LUCERO REPORTS PT ATTEMPTED TO SIGN UP W/PCP LUCY HERNANDEZ A FEW WKS AGO, LUCERO IS AWARE LUCY ROWE'S OFFICE ISN'T TAKING NEW PT'S UNTIL NEXT YEAR. LUCERO DOES NOT KNOW IF PT HAS EVER COMPLETED A HCP. CM WILL CONT TO FOLLOW D/C NEEDS.
[2022-04-23 17:05] LABS: ABG Base Excess -4.2 mmol/L; ABG HCO3 24 mmol/L (22-26); ABG pCO2 57 mmHg (32-45); ABG pH 7.22 (7.35-7.45); ABG pO2 80 mmHg (83-108)
[2022-04-23] MEDS: EPINEPHrine 1 MG/ML VIAL IVPUSH (17:43)
[2022-04-23] MEDS: Midazolam HCl/PF 2 MG/2 ML VIAL IVPUSH (17:44)
[2022-04-23] MEDS: Ketamine HCl/NS 100 MG/10 ML SYRINGE 70 MG IVPUSH (17:45)
[2022-04-23] MEDS: Rocuronium Bromide 50 MG/5 ML VIAL 100 MG IVPUSH (17:46)
--- NOTE | 2022-04-23 18:11 | P.PCNCC_ITS ---
Procedures Date of Service Date of Service: 04/23/22 Intubation Intubation Comments: PROCEDURE:? Emergent tracheal intubation. INDICATIONS:? Acute respiratory failure 2? COVID pneumonia. Anesthesia:? Versed 2mg, ketamine 70mg, Zemuron 100mg The patient presented with hypoxemic acute respiratory failure 2? COVID pneumonia.? Tx to ICU this morning for BiPAP.? Through the day, she became more hypoxemic.? Over the last hour, more confused and lethargic.? ABG on BiPAP now showed 7.22/56/79.? Intubation for progressive ventilatory failure was indicated. Procedure:? The patient was preoxygenated with 100% BiPAP.? She was then premedicated with about 30 mcg epinephrine IV push.? Following that, she was given the medications above.? We initially attempted laryngoscopy with a Proview, but the equipment failed.? Therefore she was given another 70 mcg epinephrine followed by video laryngoscopy with the glide scope 3.? A good view of the vocal cords was obtained, and after minimal difficulty, the trachea was intubated with a 7.5 endotracheal tube.? Atraumatic.? Good vapor in the endotracheal tube and color metric end-tidal CO2, followed by quantitative end- tidal CO2 on the monitor, initially at 56 mm. CXR shows the ETT needs to be withdrawn 1cm.? Lung pena are considerably worse. Consent for Procedure: Emergent-no informed consent obtained
--- NOTE | 2022-04-23 19:33 | PC.NURSE ---
Pt transferred [place] [facility] [place] at approximately 1000 to the ICU on AVAPS, pt continues to be tachypnic with abdominal breathing, IV Dilaudid given with RR in the 20-30s, Fentanyl gtt initiated per MD's order. Pt was initially calm but started to get agitated and was then fighting the mask and throwing off, pt desatting quickly in the mid 70s. Pt's mentation slowly degrading, getting disoriented, MD made aware, plan to intubate. Placed a eddy as pt retaining urine, draining clear patt urine. Pt was medicated-(see MAR)and intubated at 1755, ETT 7.5, 23cm at the lip, on AC 16/400/85%/10 PEEP, tolerating and satting in the low 90s. Placed an OGTube-clamped, placement checked and CXR obtained-see report. Pt currently in no acute distress. Report given to oncoming RN who will continue with plan of care.
--- NOTE | 2022-04-23 20:39 | W.PM.CCHP ---
Procedures Date of Service Date of Service: 04/23/22 Central Line Placement A quick time-out was made for clarification and proper patient identification, patient was positioned, landmarks were identified, US used to locate a large compressible IJ. The right neck was widely prepped and draped in a full sterile fashion. Ultrasound was used to locate again the right IJ, the vein was cannulated on the 1st pass with an 18 gauge thin needle, dark nonpulsatile blood return was obtained. The wire was threaded, a small incision was made at its base and dilator inserted. A triple-lumen central venous catheter was advanced into the vein up to the hub without problems, wired was removed. Ports had good blood return and flushed x3. The catheter was secured with 3 sutures at 3 sites, a Biopatch and dry sterile dressing were applied. Post procedure chest x-ray showed the line to be in good position without pneumothorax. No bleeding or complications noted.: Consent for Procedure: Emergent-no informed consent obtained Time out performed: Yes Sterile Technique Used: Yes Patient placed on monitor/pulse ox: Yes prep: mask, gown and gloves Central line prep: Povidone-Iodine 1% Ultrasound used for placement: Yes Central line lumen inserted: triple Post procedure: sutured in place, good blood return, all ports aspirated, flushed, capped and sterile dressing applied Post procedure x-ray: tip of catheter in good position and no pneumothorax seen Patient tolerated procedure: well and no complications Complications: none
[2022-04-23] MEDS: propofoL 1,000 MG/100 ML VIAL 14.86 MG IVCONT (21:07)
[2022-04-23] MEDS: Chlorhexidine Gluc Oral Rinse 15 ML MOUTHWASH BUCCAL (21:08)
[2022-04-23] MEDS: Atorvastatin Calcium 40 MG TABLET 80 MG PO (21:08)
[2022-04-23] MEDS: Melatonin 3 MG TABLET 9 MG PO (21:09)
[2022-04-23 21:28] LABS: Basophils Percent Auto 0.1 % (0-2); Hematocrit 38.2 % (37.0-47.0); Hemoglobin 12.1 g/dl (12.0-16.0); Imm Gran Pct Auto 0.4 % (0.0-0.4); Lymphocytes Absolute Auto 1.2 X10*3/uL (1.2-4.9); Lymphocytes Percent Auto 5.1 % (20-40); MANUAL DIFF FLAG SCAN; Mean Corpuscular HGB Conc 31.7 g/dl (31.0-35.0); Mean Corpuscular Hemoglobin 27.8 pg (27.0-33.0); Mean Corpuscular Volume 87.8 fL (80.0-98.0); Mean Platelet Volume 9.9 fL (9.4-12.3); Monocytes Absolute Auto 0.6 X10*3/uL (0.1-1.2); Monocytes Percent Auto 2.6 % (2-11); Neutrophils Absolute Auto 21.5 x10*3/uL (2.0-8.3); Neutrophils Percent Auto 91.8 % (45-73); Platelet Count 243 X10*3/uL (160-400); Red Blood Count 4.35 X10*6/uL (4.20-5.50); Red Cell Distribution Width 15.7 % (11.0-16.0); SCAN SMEAR FLAG 1; White Blood Count 23.4 X10*3/uL (4.8-10.8)
[2022-04-23 21:30] LABS: VBG Base Excess -3.4 mmol/L; VBG HCO3 23 mmol/L (22-26); VBG pCO2 46 mmHg; VBG pO2 55 mmHg
[2022-04-23] MEDS: Rocuronium Bromide 50 MG/5 ML VIAL 30 MG IVPUSH (21:34)
[2022-04-23 21:47] LABS: Anion Gap 12 (12-20); Aspartate Amino Transferase 43 U/L (5-31); Bilirubin Total 0.4 mg/dL (0.0-1.0); Calcium 8.3 mg/dL (8.4-10.2); Carbon Dioxide 26 mmol/L (22-29); Chloride 106 mmol/L (96-108); Creatinine Clr Calc Pharmacy 90.6; Estimated Glomerular Filt Rate > 60; Potassium 4.7 mmol/L (3.3-5.1); Sodium 139 mmol/L (135-145); Total Protein 5.8 g/dL (6.5-8.0)
[2022-04-23 21:49] LABS: SLIDE REVIEW VERIFIED
[2022-04-23 21:54] LABS: Alanine Aminotransferase 21 U/L (0-31); Albumin Level 3.3 g/dL (3.5-5.0); Alkaline Phosphatase 86 U/L (39-117); Blood Urea Nitrogen 11 mg/dL (9-16); Glucose Random 157 mg/dL (60-115)
--- NOTE | 2022-04-23 22:27 | PC.NURSE ---
Upon initial assessment at 1900- pt sedated on propofol, RASS -3/4, CAPUTO, +cough/gag, does not open eyes/follow commands. Agitated with care, reaching for lines/tubes. Fentanyl gtt started per JUN d/t vent dysynchrony. NSR on tele, HR 80s. SBP dropping to 80s, MAP 60s- levophed ordered and titrated per JUN. ETT #7.5, 23 cm at lip. On AC settings- 16/400/10/80%. Post-intubation VBG done, MELVI King aware of results. Copious clear oral secretions, small amount of cream/thick secretions via inline. TLC to R IJ placed by PA, pCXR completed. OGT placed to LWS per order. Eddy in place, UOP approx 40 ml/hr. No BM. Skin intact. CHG bath given, mouth/eddy care provided at 2200. Q2hr reposition. Family to be updated on pt status/plan of care by PA. Bed locked in lowest position.
[2022-04-23] MEDS: Norepinephrine Bitartrate/D5W 8 MG/250 ML PLAST..BAG 7.74 MG IV (22:37)
[2022-04-23 22:53] LABS: Venous Blood Gas Refer to POC result
[2022-04-23 23:06] LABS: ABG Refer to POC result
[2022-04-23] MEDS: methylPREDNISolone Sod Succ 40 MG/ML VIAL IVPUSH (23:38)
[2022-04-23] MEDS: Ascorbic Acid 500 MG TABLET 1000 MG PO (23:38)
[2022-04-23] MEDS: Enoxaparin Sodium 60 MG/0.6 ML SYRINGE SUBCUT (23:38)
[2022-04-23] MEDS: Spironolactone 25 MG TABLET 100 MG PO (23:39)
[2022-04-23] MEDS: Albuterol/Iprat 2.5/0.5MG 3 ML AMPUL.NEB INHALE (23:40)
[2022-04-23] MEDS: fentaNYL citrate/NS 1,000 MCG/100 ML PLAST..BAG 20 MCG IVCONT (23:42)
[2022-04-23] MEDS: propofoL 1,000 MG/100 ML VIAL 24.77 MG IVCONT (23:44)
[2022-04-24] VITALS (36 sets, daily range): BP systolic 100–151; BP diastolic 51–89; PULSE 82–105; RESP 18–21; TEMP 34–37.6; O2SAT 88–98; BMI 49.8
[2022-04-24] MEDS: fentaNYL citrate/NS 1,000 MCG/100 ML PLAST..BAG 20 MCG IVCONT ×5 (03:16→22:58)
[2022-04-24] MEDS: propofoL 1,000 MG/100 ML VIAL 24.77 MG IVCONT ×7 (03:17→23:15)
[2022-04-24] MEDS: Rocuronium Bromide 50 MG/5 ML VIAL IVPUSH (03:47)
--- NOTE | 2022-04-24 04:25 | PC.NURSE ---
CARE ASSUMED 23:15...REMAINS TUBED/VENTED...AGITATED/CAPUTO BUT NOT TO COMMAND..VENT DYSYNCHRONY AT HS....PROPOFOL TITRATED FROM 40 TO 50 MCG/KG/MIN AND FENTANYL FROM 50 TO 200 MCG/HR WITH GRADUAL IMPROVED VENT SYNCHRONY..ELEVATED PEAK PRESSURES...BAGGED/LAVAGED W/O EFFECT...RT PRESENT ..VENT CHANGE FROM AC16 TO AC 20 AND TV 400 TO TV 350.....FIO2 TO 100% AND PEEP AT 10CM....IMPROVED PEAK PRESSURES....APPROX 3AM ELEVATED PEAK PRESSURES AND DESATURATION TO 84%...REPEAT BAG/LAVAGE WITH MINIMAL SECRETIONS....SEDATE ON PROPOFOL/FENTANYL...RORCURONIUM 50 MG IV X1 PER ICU PA...GRADUAL IMPROVED SAO2 96-97%...LOPEZ 25-35 CC/HR...NSR HR 80'S...NO ECTOPY...LEVOPHED DRIP MAINTAINED 0.08 MCG/KG/MIN
[2022-04-24 05:19] LABS: VBG Base Excess -4.4 mmol/L; VBG HCO3 22 mmol/L (22-26); VBG pCO2 48 mmHg; VBG pH 7.27 (7.32-7.43); VBG pO2 61 mmHg
[2022-04-24 05:39] LABS: Hematocrit 38.2 % (37.0-47.0); Mean Corpuscular HGB Conc 31.4 g/dl (31.0-35.0); Mean Corpuscular Hemoglobin 27.8 pg (27.0-33.0); Mean Corpuscular Volume 88.6 fL (80.0-98.0); Mean Platelet Volume 10.2 fL (9.4-12.3); Platelet Count 274 X10*3/uL (160-400); Red Blood Count 4.31 X10*6/uL (4.20-5.50); Red Cell Distribution Width 15.7 % (11.0-16.0); White Blood Count 23.1 X10*3/uL (4.8-10.8)
[2022-04-24] MEDS: Albuterol/Iprat 2.5/0.5MG 3 ML AMPUL.NEB INHALE ×4 (05:43→23:14)
[2022-04-24 05:48] LABS: D Dimer High Sensitivity 213 NG/ML
[2022-04-24 05:58] LABS: Alanine Aminotransferase 23 U/L (0-31); Albumin Level 3.4 g/dL (3.5-5.0); Alkaline Phosphatase 95 U/L (39-117); Anion Gap 14 (12-20); Aspartate Amino Transferase 37 U/L (5-31); Bilirubin Total 0.4 mg/dL (0.0-1.0); Blood Urea Nitrogen 13 mg/dL (9-16); C Reactive Protein 21.38 mg/dL (< or = 0.50); Calcium 8.7 mg/dL (8.4-10.2); Carbon Dioxide 25 mmol/L (22-29); Chloride 105 mmol/L (96-108); Creatinine Clr Calc Pharmacy 102.5; Estimated Glomerular Filt Rate > 60; Glucose Random 174 mg/dL (60-115); Magnesium 2.3 mg/dL (1.6-2.6); Potassium 4.7 mmol/L (3.3-5.1); Sodium 139 mmol/L (135-145)
[2022-04-24] MEDS: Ascorbic Acid 500 MG TABLET 1000 MG PO ×4 (06:11→22:41)
[2022-04-24 06:16] LABS: Venous Blood Gas Refer to POC result
[2022-04-24] MEDS: 0.9 % Sodium Chloride Flush 3 ML SYRINGE IVFLUSH ×3 (09:49→23:46)
[2022-04-24] MEDS: Chlorhexidine Gluc Oral Rinse 15 ML MOUTHWASH BUCCAL ×3 (09:52→20:29)
[2022-04-24] MEDS: methylPREDNISolone Sod Succ 125 MG/2 ML VIAL 80 MG IVPUSH ×3 (09:52→20:29)
[2022-04-24] MEDS: Spironolactone 25 MG TABLET 100 MG PO ×2 (09:53→22:41)
[2022-04-24] MEDS: Aspirin 325 MG TABLET PO (09:53)
[2022-04-24] MEDS: Cholecalciferol (Vitamin D3) 25 MCG TABLET 50 MCG PO (09:53)
[2022-04-24] MEDS: Famotidine/PF 20 MG/2 ML VIAL 40 MG IVPUSH ×2 (09:54→20:30)
[2022-04-24] MEDS: Thiamine HCL 200 MG in 0.9 % Sodium Chloride 100 ML 204 MG IV ×2 (10:03→22:40)
[2022-04-24] MEDS: Cisatracurium Besylate 20 MG/10 ML VIAL 12 MG IVPUSH (10:38)
--- NOTE | 2022-04-24 10:48 | P.PNCC_ITS ---
Subjective Subjective Date of Service: 04/24/22 Interval History: Mrs. Multani was transferred to ICU yesterday morning with acute respiratory distress and hypoxemic resp failure 2? COVID pneumonia.? She required tracheal intubation last night. The patient is a 41-year-old female w PMHx of obesity (BMI 35) asthma, migraine headaches, anxiety, disc herniation. The patient was BIBA to the ED on Apr 22 c/o SOB, severe MORROW, cough, and sputum production x 1 day.? No GI Sx. ?She reported that she tested positive for COVID at home the day prior. On arrival to the ED, the temp was 100.2 degrees, HR 112, RR 24.? Initial Sat 92% on RA in triage, then later 85% on room air.? On 4L, Sat was 95%.? Chest exam showed labored breathing with diminished BS. Labs in the ED notable for positive COVID PCR.? WBC 15 w lymphopenia, DDimer 190, BUN/creatinine 8/0.7, lactic acid 1.3, normal troponin and BNP, and procalcitonin 0.02.? Chest x-ray showed diffuse bilateral patchy infiltrates, typical for COVID pneumonia.? Chest CT showed diffuse bilateral patchy ground- glass infiltrates, typical for COVID.? CTPA showed normal heart size, normal PA size, no PE. She was admitted to Medicine with dx of COVID pneumonia and resp failure, and put on Decadron, bronchodilators, and prophylactic dose Lovenox.? The next morning, she dropped her sat.? On 5 L nasal cannula sat was 86% and she was put on BiPAP, satting 89% on 80% FiO2.? Arterial blood gas (on ? 80% BiPAP), showed 7.30/43/96/-4.? She was tachypneic and dyssynchronous.? She was transferred to the ICU. In the ICU, she was alert and talking, appropriate.? Had significant problems with poor mask fit.? We finally got her a good fit with the [id number] mask, and she managed to get through the day, but she never had good chest movement.? I think her obesity had a lot to do with that.? Finally, yesterday afternoon, she became more confused and lethargic.? Arterial blood gas showed arising pCO2.? She was therefore intubated.? Subsequent to that, we got her FiO2 down to 85%, with 10 cm peep.? Post-intubation CXR showed bilat infiltrates, much worse than the admission CXR, almost a white out.? A CVL was placed. Overnight FiO2 had to be increased to 100% for some hours and she required one dose of NMB.? CVBG this morning 7.27/48/-4.? At about 10am, she became very dysynchronus, and Sat?s dropped.? I gave her 12 mg Nimbex bolus.? After than she had much better chest rise, and I?ve been able to get her FiO2 down to 65%. Current drips: - Propofol 50ug - Fentanyl 200ug - Levophed 0.08ug She was moderately sedated on the above.? On AC 20/350/65%/+12 after Nimbex bolus, RR is 20, Ve 6.6L, PIP 38cm, ETCO2 50mm, Sat 94%.? I dropped her rate to 18, FiO2 down to 60%.? HR is 102, BP 117/62.? Afebrile.? No obvious JVD (has no neck).? Chest is CTA w normal exp phase.? Soft heart tones.? Abd is obese, benign.? She has at least 1+ pretibial edema, can?t evaluate central edema bec of her habitus. LABORATORY DATA:? Below.? Notably, DDimer steady at 213.? Renal indices very slight uptick, POC OK, CRP up to 21, alb 3.4. IMPRESSION: 1. Underlying h/o asthma.? Currently inactive, but prognostically important.? Continue BDs (FWIW). 2. Underlying obesity 3. Bilat COVID pneumonia.? CRP is increasing.? I upped her Solumedrol to 80 mg q6.? Yesterday upped her Lovenox to 60 mg daily, and added Baricitinib, Vit C, melatonin, thiamine, spironolactone, MVI, Vit D, Pepcid,and atorvastatin.? Would add doxycycline if her PCT ho. 4. Acute hypoxemic resp failure.? 2? above.? Oxygenation and ventilation much improved post Nimbex bolus.? She?ll prob need a drip.? Because of her body habitus and the difficulty that presented yesterday to good synchronous breathing, IMO the odds are overwhelming that she?ll wind up with tracheostomy, if she survives.? Might even wind up on ECMO. 5. Blood glucose.? Check Hb A1c was 5.4.? So far no indication for insulin. 6. Leukocytosis.? Presumably 2? steroids 7. Laxation.? Start lactulose. 8. Nutrition.? Start tube feeds. Critical Care Time (minutes): 70 Physical Exam Vital Signs: Vital Signs: Last Vital Signs Temp 98.6 F 04/24/22 08:00 Pulse 89 04/24/22 09:00 Resp 20 04/24/22 09:00 BP 120/66 04/24/22 09:00 Pulse Ox 89 L 04/24/22 09:00 O2 Del Method 04/24/22 09:00 O2 Flow Rate 100 04/23/22 14:00 FiO2 90 04/24/22 09:00 BMI result Body Mass Index 49.8 Objective Data Labs CBC & Chem 7: 04/24/22 05:10 04/24/22 05:10 Labs: Laboratory Results - last 24 hr 04/23/22 04/23/22 04/23/22 06:01 06:01 16:58 WBC RBC Hgb Hct MCV MCH MCHC RDW Plt Count MPV Immature Gran % (Auto) Neut % (Auto) Lymph % (Auto) [place] % (Auto) Eos % (Auto) Baso % (Auto) Lymph # (Auto) [place] # (Auto) Eos # (Auto) Baso # (Auto) Abs Immat Gran (auto) Absolute Neuts (auto) Absolute Nucleated RBC Nucleated RBC % (auto) Smear Tech's Comments D-Dimer High Sensitivty O2 Saturation 93.0 ABG pH at Pt Temp 7.22 L ABG pCO2 at Pt Temp 57 H ABG pO2 at Pt Temp 80 L ABG HCO3 24 ABG Base Excess (Actual) -4.2 VBG pH VBG pCO2 VBG pO2 VBG HCO3 VBG O2 Saturation VBG Base Excess Sodium Potassium Chloride Carbon Dioxide Anion Gap BUN Creatinine Estim Creat Clear Calc Estimated GFR Random Glucose Estimat Average Glucose 108 Hemoglobin A1c % 5.4 Calcium Phosphorus Magnesium Ferritin 123 Total Bilirubin AST ALT Alkaline Phosphatase Lactate Dehydrogenase 608 H C-Reactive Protein 14.76 H Total Protein Albumin 04/23/22 04/23/22 04/23/22 21:06 21:06 21:23 WBC 23.4 H RBC 4.35 Hgb 12.1 Hct 38.2 MCV 87.8 MCH 27.8 MCHC 31.7 RDW 15.7 Plt Count 243 MPV 9.9 Immature Gran % (Auto) 0.4 Neut % (Auto) 91.8 H Lymph % (Auto) 5.1 L [place] % (Auto) 2.6 Eos % (Auto) 0.0 Baso % (Auto) 0.1 Lymph # (Auto) 1.2 [place] # (Auto) 0.6 Eos # (Auto) 0.0 Baso # (Auto) 0.0 Abs Immat Gran (auto) 0.10 H Absolute Neuts (auto) 21.5 H Absolute Nucleated RBC 0.000 Nucleated RBC % (auto) 0.0 Smear Tech's Comments VERIFIED D-Dimer High Sensitivty O2 Saturation ABG pH at Pt Temp ABG pCO2 at Pt Temp ABG pO2 at Pt Temp ABG HCO3 ABG Base Excess (Actual) VBG pH 7.30 L VBG pCO2 46 VBG pO2 55 VBG HCO3 23 VBG O2 Saturation 86.0 VBG Base Excess -3.4 Sodium 139 Potassium 4.7 Chloride 106 Carbon Dioxide 26 Anion Gap 12 BUN 11 Creatinine 0.77 Estim Creat Clear Calc 90.6 Estimated GFR > 60 Random Glucose 157 H Estimat Average Glucose Hemoglobin A1c % Calcium 8.3 L Phosphorus Magnesium Ferritin Total Bilirubin 0.4 AST 43 H D ALT 21 Alkaline Phosphatase 86 D Lactate Dehydrogenase C-Reactive Protein Total Protein 5.8 L Albumin 3.3 L 04/24/22 04/24/22 04/24/22 05:10 05:10 05:10 WBC 23.1 H RBC 4.31 Hgb 12.0 Hct 38.2 MCV 88.6 MCH 27.8 MCHC 31.4 RDW 15.7 Plt Count 274 MPV 10.2 Immature Gran % (Auto) Neut % (Auto) Lymph % (Auto) [place] % (Auto) Eos % (Auto) Baso % (Auto) Lymph # (Auto) [place] # (Auto) Eos # (Auto) Baso # (Auto) Abs Immat Gran (auto) Absolute Neuts (auto) Absolute Nucleated RBC 0.000 Nucleated RBC % (auto) 0.0 Smear Tech's Comments D-Dimer High Sensitivty 213 O2 Saturation ABG pH at Pt Temp ABG pCO2 at Pt Temp ABG pO2 at Pt Temp ABG HCO3 ABG Base Excess (Actual) VBG pH VBG pCO2 VBG pO2 VBG HCO3 VBG O2 Saturation VBG Base Excess Sodium 139 Potassium 4.7 Chloride 105 Carbon Dioxide 25 Anion Gap 14 BUN 13 Creatinine 0.83 Estim Creat Clear Calc 102.5 Estimated GFR > 60 Random Glucose 174 H Estimat Average Glucose Hemoglobin A1c % Calcium 8.7 Phosphorus 3.0 Magnesium 2.3 Ferritin Total Bilirubin 0.4 AST 37 H ALT 23 Alkaline Phosphatase 95 Lactate Dehydrogenase C-Reactive Protein 21.38 H Total Protein 6.0 L Albumin 3.4 L 04/24/22 05:11 WBC RBC Hgb Hct MCV MCH MCHC RDW Plt Count MPV Immature Gran % (Auto) Neut % (Auto) Lymph % (Auto) [place] % (Auto) Eos % (Auto) Baso % (Auto) Lymph # (Auto) [place] # (Auto) Eos # (Auto) Baso # (Auto) Abs Immat Gran (auto) Absolute Neuts (auto) Absolute Nucleated RBC Nucleated RBC % (auto) Smear Tech's Comments D-Dimer High Sensitivty O2 Saturation ABG pH at Pt Temp ABG pCO2 at Pt Temp ABG pO2 at Pt Temp ABG HCO3 ABG Base Excess (Actual) VBG pH 7.27 L VBG pCO2 48 VBG pO2 61 VBG HCO3 22 VBG O2 Saturation 88.0 VBG Base Excess -4.4 Sodium Potassium Chloride Carbon Dioxide Anion Gap BUN Creatinine Estim Creat Clear Calc Estimated GFR Random Glucose Estimat Average Glucose Hemoglobin A1c % Calcium Phosphorus Magnesium Ferritin Total Bilirubin AST ALT Alkaline Phosphatase Lactate Dehydrogenase C-Reactive Protein Total Protein Albumin Microbiology Microbiology Results: Microbiology 04/22/22 22:00 Blood - Venous Blood Culture - Preliminary No growth after 24 hours. 04/22/22 21:29 Blood - Venous Blood Culture - Preliminary No growth after 24 hours. Quality Stroke Does the patient have a stroke diagnosis?: No VTE Prior VTE?: No VTE Risk Level:: Medical - moderate - high VTE Device Contraindication: Treatment Not Indicated VTE Drug Contraindication: N/A - Med Ordered Critical Care Time Critical Care Time (minutes): 60
[2022-04-24] MEDS: Cisatracurium Besylate 20 MG/10 ML VIAL 8 MG IVPUSH (11:58)
--- NOTE | 2022-04-24 12:09 | MHC.CLN ---
RE: CONSULT PER MD PT INTUBATED AND SEDATED RECOMMEND PROMOTE AT MAX GOAL RATE 55ML/HR WITH 120ML FREE WATER FLSUHES Q 8 HRS MONITOR TOLERANCE, RESIDUALS AND LYTES FULL CLINICAL NUTRITION ASSESSMENT TO FOLLOW
[2022-04-24] MEDS: Cisatracurium Besylate 100 MG in 0.9 % Sodium Chloride 40 ML 6.94 MG IVCONT ×2 (12:58→17:22)
[2022-04-24] MEDS: Lactulose 20 GM/30 ML SOLUTION G-TUBE ×2 (13:12→20:29)
[2022-04-24] MEDS: Norepinephrine Bitartrate/D5W 8 MG/250 ML PLAST..BAG 9.29 MG IV (16:44)
[2022-04-24 18:11] LABS: Glucose, Whole Blood 201 mg/dL (60-115)
[2022-04-24] MEDS: Insulin Lispro 100 UNIT/ML 3 ML VIAL SUBCUT ×2 (18:19→23:46)
--- NOTE | 2022-04-24 18:57 | PC.NURSE ---
?LEAK IN ETT CUFF -MD AND RT BEDSIDE TO ASSESS PATIENT DESATTING TO LOW 80S ON 100% FI02 NIMBEX IVP X 2 AND THEN NIMBEX GTT STARTED WITH POSITIVE EFFECT ABLE TO TITRATE DOWN FI02 FROM 100% TO 60% CURRENTLY VENT SETTINGS: AC 18/350/12/60% INTIALLY TUBE FEEDS STARTED AND THEN HELD DUE TO NIMBEX GTT SCHEDULED LACTULOSE ADMINISTERED - NO BM THIS SHIFT
[2022-04-24] MEDS: Atorvastatin Calcium 40 MG TABLET 80 MG PO (20:30)
[2022-04-24] MEDS: Enoxaparin Sodium 60 MG/0.6 ML SYRINGE SUBCUT (22:40)
[2022-04-24 23:41] LABS: Glucose, Whole Blood 186 mg/dL (60-115)
[2022-04-25] VITALS (35 sets, daily range): BP systolic 99–141; BP diastolic 59–86; PULSE 82–115; RESP 18–22; TEMP 35–38.3; O2SAT 91–97; BMI 49.5
[2022-04-25] MEDS: Cisatracurium Besylate 100 MG in 0.9 % Sodium Chloride 40 ML 6.94 MG IVCONT ×2 (02:02→08:56)
[2022-04-25] MEDS: propofoL 1,000 MG/100 ML VIAL 24.77 MG IVCONT ×7 (03:08→23:50)
[2022-04-25] MEDS: methylPREDNISolone Sod Succ 125 MG/2 ML VIAL 80 MG IVPUSH ×4 (03:17→19:55)
[2022-04-25] MEDS: fentaNYL citrate/NS 1,000 MCG/100 ML PLAST..BAG 20 MCG IVCONT ×5 (03:17→23:03)
[2022-04-25 05:31] LABS: VBG Base Excess 1.7 mmol/L; VBG HCO3 27 mmol/L (22-26); VBG pCO2 49 mmHg; VBG pH 7.35 (7.32-7.43); VBG pO2 58 mmHg
[2022-04-25 05:43] LABS: Hematocrit 35.6 % (37.0-47.0); Hemoglobin 11.1 g/dl (12.0-16.0); Mean Corpuscular HGB Conc 31.2 g/dl (31.0-35.0); Mean Corpuscular Hemoglobin 28.4 pg (27.0-33.0); Mean Platelet Volume 10.3 fL (9.4-12.3); NRBC Pct Auto 0.3 /100WBC (0.0-0.2); Platelet Count 241 X10*3/uL (160-400); Red Blood Count 3.91 X10*6/uL (4.20-5.50); Red Cell Distribution Width 16.1 % (11.0-16.0); White Blood Count 17.1 X10*3/uL (4.8-10.8)
[2022-04-25 05:49] LABS: Glucose, Whole Blood 201 mg/dL (60-115)
[2022-04-25 05:50] LABS: Venous Blood Gas Refer to POC result
[2022-04-25] MEDS: Ascorbic Acid 500 MG TABLET 1000 MG PO ×4 (05:51→22:23)
[2022-04-25] MEDS: Insulin Lispro 100 UNIT/ML 3 ML VIAL SUBCUT ×4 (05:51→23:47)
[2022-04-25 06:10] LABS: Anion Gap 12 (12-20); Blood Urea Nitrogen 10 mg/dL (9-16); C Reactive Protein 11.41 mg/dL (< or = 0.50); Calcium 8.6 mg/dL (8.4-10.2); Carbon Dioxide 29 mmol/L (22-29); Chloride 106 mmol/L (96-108); Creatinine Clr Calc Pharmacy 114.6; Estimated Glomerular Filt Rate > 60; Glucose Random 187 mg/dL (60-115); Lactate Dehydrogenase 592 U/L (122-220); Magnesium 2.3 mg/dL (1.6-2.6); Phosphorus 2.3 mg/dL (2.7-4.5); Potassium 4.8 mmol/L (3.3-5.1); Sodium 142 mmol/L (135-145)
[2022-04-25 06:13] LABS: Lactic Acid 0.7 mmol/L (0.5-2.0)
[2022-04-25] MEDS: Albuterol/Iprat 2.5/0.5MG 3 ML AMPUL.NEB INHALE ×4 (06:13→23:30)
--- NOTE | 2022-04-25 06:24 | PC.NURSE ---
Pt noted to have air leak around ET tube, RT And PA aware. Around 0600 pt alarming low tidal volumes. RT to bedside, ET tube adjusted - 24 cm at lip. Tidal volumes improved, no audible leak from ET tube.
[2022-04-25 06:25] LABS: Ferritin 276 ng/mL (10-250)
[2022-04-25 06:42] LABS: Procalcitonin 0.17 ng/mL
[2022-04-25] MEDS: Aspirin 325 MG TABLET PO (08:50)
[2022-04-25] MEDS: Cholecalciferol (Vitamin D3) 25 MCG TABLET 50 MCG PO (08:50)
[2022-04-25] MEDS: Chlorhexidine Gluc Oral Rinse 15 ML MOUTHWASH BUCCAL ×3 (08:50→19:54)
[2022-04-25] MEDS: Lactulose 20 GM/30 ML SOLUTION G-TUBE ×2 (08:50→19:54)
[2022-04-25] MEDS: Sodium,Potassium Phosphates POWD.PACK 1 PACKET PO ×4 (08:50→19:55)
[2022-04-25] MEDS: Famotidine/PF 20 MG/2 ML VIAL 40 MG IVPUSH ×2 (08:51→19:54)
[2022-04-25] MEDS: 0.9 % Sodium Chloride Flush 3 ML SYRINGE IVFLUSH ×2 (08:51→16:46)
[2022-04-25] MEDS: Thiamine HCL 200 MG in 0.9 % Sodium Chloride 100 ML 204 MG IV ×2 (10:25→22:23)
[2022-04-25 12:21] LABS: Glucose, Whole Blood 209 mg/dL (60-115)
[2022-04-25] MEDS: Spironolactone 25 MG TABLET 100 MG PO ×2 (13:00→22:23)
--- NOTE | 2022-04-25 14:05 | MHC.CM.PN ---
Pt continues on ventilatory support in ICU: presently at 60% FiO2. Her condition remains very critical per - CM to defer further d/c planning until her condition improves and functional abilities can be appropriately assessed.
--- NOTE | 2022-04-25 15:23 | P.PNCC_ITS ---
Subjective Subjective Date of Service: 04/25/22 Interval History: Mrs. Multani was transferred to ICU Apr 23 with acute respiratory distress and hypoxemic resp failure 2? COVID pneumonia.? She required tracheal intubation later that night. The patient is a 41-year-old female w PMHx of obesity (BMI 35) asthma, migraine headaches, anxiety, disc herniation. The patient was BIBA to the ED on Apr 22 c/o SOB, severe MORROW, cough, and sputum production x 1 day.? No GI Sx. ?She reported that she?d tested positive for COVID at home the day prior. On arrival to the ED, the temp was 100.2 degrees, HR 112, RR 24.? Initial Sat 92% on RA in triage, then later 85% on room air.? On 4L, Sat was 95%.? Chest exam showed labored breathing with diminished BS. Labs in the ED notable for positive COVID PCR.? WBC 15 w lymphopenia, DDimer 190, BUN/creatinine 8/0.7, lactic acid 1.3, normal troponin and BNP, and procalcitonin 0.02.? Chest x-ray showed diffuse bilateral patchy infiltrates, typical for COVID pneumonia.? Chest CT showed diffuse bilateral patchy ground- glass infiltrates, typical for COVID.? CTPA showed normal heart size, normal PA size, no PE. She was admitted to Medicine with dx of COVID pneumonia and resp failure, and put on Decadron, bronchodilators, and prophylactic dose Lovenox.? The next morning, she dropped her sat and wound up on BiPAP.? Arterial blood gas (on ? 80% BiPAP), showed 7.30/43/96/-4.? She was tachypneic and dyssynchronous.? She was transferred to the ICU. In the ICU, she was alert and talking, appropriate.? Had significant problems with poor mask fit.? We finally got her a good fit with the [id number] mask, and she managed to get through the day, but she never had good chest movement, in large part I think bec of her truncal obesity.? Later that afternoon, she became more confused and lethargic.? Arterial blood gas showed arising pCO2.? She was therefore intubated.? Subsequent to that, we got her FiO2 down to 85%, with 10 cm peep.? Post-intubation CXR showed bilat infiltrates, much worse than the admission CXR, almost a white out. In the ICU, I upped her steroids to Solu-Medrol 80 mg bid, upped her Lovenox to 60 mg daily, and added Baricitinib, Vit C, melatonin, thiamine, spironolactone, MVI, Vit D, Pepcid,and atorvastatin. Overnight that night, FiO2 had to be increased to 100% for some hours and she required a dose of NMB.? Next morning (yesterday), I increased her Solumedrol to 80 mg q6, and had to put her on a Nimbex drip bec of dysynchrony and hypoxemia.? Got her FiO2 down to 60% after that. This morning she?s sedated on propofol 50ug, fentanyl 200ug.? Also on Levophed 0.02ug, and Nimbex down to 1.5ug.? CVBG this morning 7.35/49/+1.? FiO2 now down to 50%. ?On AC 18/350/50%/+12, RR is 18, Ve 6.1L, PIP 39cm, ETCO2 56mm, Sat 94%.? HR is 85, BP 123/71.? Tmax 100.4.? No obvious JVD (has no neck).? Chest is CTA w normal exp phase.? Soft heart tones.? Abd is obese, benign.? She has at least 1+ pretibial edema, can?t evaluate central edema bec of her habitus. LABORATORY DATA:? Below.? Notably, POC?s up to 200 range, started SSI last night. ?CRP down to 11, PCT 0.1. ?K 4.8 (on spironolactone), phos 2.3. IMPRESSION: 1. Underlying h/o asthma.? Currently inactive, but prognostically important.? Continue BDs (FWIW). 2. Underlying obesity 3. Bilat COVID pneumonia.? CRP was increasing, CXR worsening, so yesterday upped her Solumedrol to 80 mg q6.? Today, FiO2 and CRP are down. 4. Acute hypoxemic resp failure.? 2? above.? Oxygenation and ventilation much improved post Nimbex and increased steroids.? Because of her body habitus and the difficulty that presented when she was on BiPAP, IMO the odds are likely that she?ll wind up with tracheostomy, if she survives.? Now that she?s down to 50% FiO2, the odds look less likely that she?ll wind up on ECMO. 5. ID. ?No Abx yet.? PCT still low.? Would add doxycycline if her PCT ho.? Recheck daily if nec. 6. Hyperglycemia.? 2? steroids.? Hb A1c was 5.4.? So far doing OK on SSI. 7. Leukocytosis.? Presumably 2? steroids 8. Laxation.? Started lactulose. 9. Hyperkalemia.? Need to watch for this bec she?s on spironolactone (per [facility]). 10. Hypophosphatemia.? Repleted. 11. Nutrition.? Tube feeds at 10cc/hr while on Nimbex. ?I?ll drop the Nimbex to 1.2ug. ?Might be able to stop the Nimbex tomorrow. Critical Care Time (minutes): 60 Physical Exam Vital Signs: Vital Signs: Last Vital Signs Temp 100.6 F H 04/25/22 15:00 Pulse 87 04/25/22 15:00 Resp 18 04/25/22 15:00 BP 119/67 04/25/22 15:00 Pulse Ox 95 04/25/22 15:00 O2 Del Method 04/25/22 15:00 O2 Flow Rate 100 04/23/22 14:00 FiO2 50 04/25/22 15:00 BMI result Body Mass Index 49.5 Objective Data Labs CBC & Chem 7: 04/25/22 05:22 04/25/22 05:22 Labs: Laboratory Results - last 24 hr 04/24/22 04/24/22 04/25/22 18:01 23:30 05:22 WBC 17.1 H RBC 3.91 L Hgb 11.1 L Hct 35.6 L MCV 91.0 MCH 28.4 MCHC 31.2 RDW 16.1 H Plt Count 241 MPV 10.3 Absolute Nucleated RBC 0.050 H Nucleated RBC % (auto) 0.3 H VBG pH VBG pCO2 VBG pO2 VBG HCO3 VBG O2 Saturation VBG Base Excess Sodium Potassium Chloride Carbon Dioxide Anion Gap BUN Creatinine Estim Creat Clear Calc Estimated GFR POC Glucose 201 H 186 H Random Glucose Lactic Acid Calcium Phosphorus Magnesium Ferritin Lactate Dehydrogenase C-Reactive Protein Procalcitonin 04/25/22 04/25/22 04/25/22 05:22 05:22 05:25 WBC RBC Hgb Hct MCV MCH MCHC RDW Plt Count MPV Absolute Nucleated RBC Nucleated RBC % (auto) VBG pH 7.35 VBG pCO2 49 VBG pO2 58 VBG HCO3 27 H VBG O2 Saturation 89.0 VBG Base Excess 1.7 Sodium 142 Potassium 4.8 Chloride 106 Carbon Dioxide 29 Anion Gap 12 BUN 10 Creatinine 0.74 Estim Creat Clear Calc 114.6 Estimated GFR > 60 POC Glucose Random Glucose 187 H Lactic Acid Calcium 8.6 Phosphorus 2.3 L Magnesium 2.3 Ferritin 276 H Lactate Dehydrogenase 592 H C-Reactive Protein 11.41 H Procalcitonin 0.17 04/25/22 04/25/22 04/25/22 05:36 05:38 12:18 WBC RBC Hgb Hct MCV MCH MCHC RDW Plt Count MPV Absolute Nucleated RBC Nucleated RBC % (auto) VBG pH VBG pCO2 VBG pO2 VBG HCO3 VBG O2 Saturation VBG Base Excess Sodium Potassium Chloride Carbon Dioxide Anion Gap BUN Creatinine Estim Creat Clear Calc Estimated GFR POC Glucose 201 H 209 H Random Glucose Lactic Acid 0.7 Calcium Phosphorus Magnesium Ferritin Lactate Dehydrogenase C-Reactive Protein Procalcitonin Microbiology Microbiology Results: Microbiology 04/22/22 22:00 Blood - Venous Blood Culture - Preliminary No growth after 48 hours. 04/22/22 21:29 Blood - Venous Blood Culture - Preliminary No growth after 48 hours. Quality Stroke Does the patient have a stroke diagnosis?: No VTE Prior VTE?: No VTE Risk Level:: Medical - moderate - high VTE Device Contraindication: Treatment Not Indicated VTE Drug Contraindication: N/A - Med Ordered Critical Care Time Critical Care Time (minutes): 60
[2022-04-25] MEDS: Cisatracurium Besylate 100 MG in 0.9 % Sodium Chloride 40 ML IVCONT (16:49)
[2022-04-25 18:04] LABS: Glucose, Whole Blood 200 mg/dL (60-115)
--- NOTE | 2022-04-25 18:38 | PC.NURSE ---
URINE OUTPUT NOTABLY DECREASED THROUGHOUT THE SHIFT - MD NOTIFIED FROM [id number] = [id number], DARK GIOVANNI TUBE FEEDS RESUMED AT TRICKLE FEED PER MD WHILE ON NIMBEX GTT, ALSO ABLE TO GIVE PO MEDICATIONS
--- NOTE | 2022-04-25 18:40 | PC.NURSE ---
PATIENT CHANGED OVER FROM BIPAP TO HIGH FLOW 50L/40% FREQUENT ORAL CARE GIVEN INSULIN TITRATED PER MD ORDER - SEE EMAR BLADDER SCANNED PER MD FOR 360 ML, LOPEZ ORDERED AND PLACED INITIAL DRAINAGE = 175 ML AND ONLY 10 ML FOR THE REST OF THE SHIFT - MD AWARE
[2022-04-25] MEDS: Atorvastatin Calcium 40 MG TABLET 80 MG PO (19:55)
[2022-04-25] MEDS: Enoxaparin Sodium 60 MG/0.6 ML SYRINGE SUBCUT (22:22)
[2022-04-25 23:34] LABS: Glucose, Whole Blood 257 mg/dL (60-115)
[2022-04-26] VITALS (31 sets, daily range): BP systolic 110–170; BP diastolic 62–92; PULSE 75–108; RESP 21–22; TEMP 35–38.4; O2SAT 89–97; BMI 50.7
[2022-04-26] MEDS: 0.9 % Sodium Chloride Flush 3 ML SYRINGE IVFLUSH ×3 (02:12→14:19)
[2022-04-26] MEDS: methylPREDNISolone Sod Succ 125 MG/2 ML VIAL 80 MG IVPUSH ×2 (02:24→08:26)
[2022-04-26] MEDS: Sodium Chloride 0.45 % 1,000 ML 250 ML IVCONT (02:25)
[2022-04-26] MEDS: Acetaminophen 325 MG TABLET 650 MG PO (02:25)
[2022-04-26] MEDS: propofoL 1,000 MG/100 ML VIAL 24.77 MG IVCONT ×6 (03:41→22:33)
[2022-04-26] MEDS: fentaNYL citrate/NS 1,000 MCG/100 ML PLAST..BAG 20 MCG IVCONT ×5 (03:42→23:30)
[2022-04-26] MEDS: Ascorbic Acid 500 MG TABLET 1000 MG PO (04:40)
[2022-04-26] MEDS: Cisatracurium Besylate 100 MG in 0.9 % Sodium Chloride 40 ML IVCONT (04:40)
[2022-04-26 05:25] LABS: VBG Base Excess 3.7 mmol/L; VBG HCO3 27 mmol/L (22-26); VBG pCO2 40 mmHg; VBG pH 7.44 (7.32-7.43); VBG pO2 52 mmHg
[2022-04-26] MEDS: Albuterol/Iprat 2.5/0.5MG 3 ML AMPUL.NEB INHALE ×4 (05:28→22:49)
[2022-04-26 05:45] LABS: Glucose, Whole Blood 248 mg/dL (60-115)
[2022-04-26 05:53] LABS: Hematocrit 36.1 % (37.0-47.0); Hemoglobin 11.3 g/dl (12.0-16.0); Mean Corpuscular HGB Conc 31.3 g/dl (31.0-35.0); Mean Corpuscular Hemoglobin 27.7 pg (27.0-33.0); Mean Corpuscular Volume 88.5 fL (80.0-98.0); Mean Platelet Volume 10.4 fL (9.4-12.3); NRBC Pct Auto 1.2 /100WBC (0.0-0.2); Platelet Count 242 X10*3/uL (160-400); Red Blood Count 4.08 X10*6/uL (4.20-5.50); Red Cell Distribution Width 15.9 % (11.0-16.0)
[2022-04-26] MEDS: Furosemide 40 MG/4 ML VIAL IVPUSH (05:58)
[2022-04-26] MEDS: Insulin Lispro 100 UNIT/ML 3 ML VIAL SUBCUT ×3 (05:58→18:21)
[2022-04-26 06:03] LABS: Albumin Level 3.3 g/dL (3.5-5.0); Anion Gap 14 (12-20); Blood Urea Nitrogen 16 mg/dL (9-16); C Reactive Protein 6.15 mg/dL (< or = 0.50); Calcium 8.6 mg/dL (8.4-10.2); Carbon Dioxide 29 mmol/L (22-29); Chloride 103 mmol/L (96-108); Creatinine Clr Calc Pharmacy 107.3; Estimated Glomerular Filt Rate > 60; Glucose Random 262 mg/dL (60-115); Magnesium 2.3 mg/dL (1.6-2.6); Phosphorus 1.9 mg/dL (2.7-4.5); Potassium 4.7 mmol/L (3.3-5.1); Sodium 141 mmol/L (135-145)
[2022-04-26 06:23] LABS: Procalcitonin 0.08 ng/mL
[2022-04-26] MEDS: Potassium Phosphate/NS 15 MMOL/250 ML PLAST..BAG 62.5 MMOL IV ×2 (07:29→12:21)
[2022-04-26] MEDS: Aspirin 325 MG TABLET PO (08:26)
[2022-04-26] MEDS: Chlorhexidine Gluc Oral Rinse 15 ML MOUTHWASH BUCCAL ×3 (08:26→21:30)
[2022-04-26] MEDS: Famotidine/PF 20 MG/2 ML VIAL 40 MG IVPUSH ×2 (08:26→21:30)
[2022-04-26 09:03] LABS: Venous Blood Gas Refer to POC result
[2022-04-26] MEDS: Thiamine HCL 100 MG in 0.9 % Sodium Chloride 100 ML 202 MG IV ×2 (10:05→21:29)
[2022-04-26] MEDS: Furosemide 200 MG in 0.9 % Sodium Chloride 80 ML IVCONT ×2 (10:06→19:45)
[2022-04-26 10:51] LABS: Glucose, Whole Blood 282 mg/dL (60-115)
--- NOTE | 2022-04-26 12:54 | PM.CCPN ---
Subjective Subjective Date of Service: 04/26/22 Interval History: 41-year-old female morbidly obese with a BMI of of 51 kilos per sq meter and a BSA of 2.23 sq meters underlying asthmatic presents with acute hypoxemic respiratory failure as a manifestation of bilateral COVID-19 pneumonitis/ARDS and currently intubated on FiO2 of 35% and still ventilator requiring with significant bilateral infiltrates on chest x-ray and I found her here on a Nimbex drip along with the fentanyl and propofol currently somewhat acutely hypertensive and tachycardic which I believe is it is her breaking through and potentially waking up at this point as she has a cough and a gag reflex I do believe the Nimbex drip is not wholly effective anyway none and the train of 4 shows that she does as still sustain for contractions so I am going to stop the Nimbex drip and just deep in her sedation with the addition of Versed and if basically that settles her acute vital signs then will maintain the Versed drip and if she fails to respond with any diuretic response to the 5 milligram/hour Lasix drip I will discontinue with before going home because the elevated CVP could be acute pulmonary hypertension from the extensive ARDS Critical Care Time (minutes): 45 Physical Exam Vital Signs: Vital Signs: Last Vital Signs Temp 100.0 F 04/26/22 12:00 Pulse 98 04/26/22 12:00 Resp 22 H 04/26/22 12:00 BP 152/81 H 04/26/22 12:00 Pulse Ox 90 L 04/26/22 12:00 O2 Del Method 04/26/22 12:00 O2 Flow Rate 100 04/23/22 14:00 FiO2 35 04/26/22 12:00 BMI result Body Mass Index 50.7 Bedside echo shows normal LV function with no primary valve or pericardial disease and some did just old of mild prominence to the right ventricle and definite dilatation of the inferior vena cava No peripheral edema benign abdomen which Is soft nontender no again a megaly diminished bilateral breath sounds no adventitious sounds Objective Data Labs CBC & Chem 7: 04/26/22 05:17 04/26/22 05:17 Labs: Laboratory Results - last 24 hr 04/25/22 04/25/22 04/26/22 17:58 23:30 05:17 WBC 10.0 RBC 4.08 L Hgb 11.3 L Hct 36.1 L MCV 88.5 MCH 27.7 MCHC 31.3 RDW 15.9 Plt Count 242 MPV 10.4 Absolute Nucleated RBC 0.120 H Nucleated RBC % (auto) 1.2 H VBG pH VBG pCO2 VBG pO2 VBG HCO3 VBG O2 Saturation VBG Base Excess Sodium Potassium Chloride Carbon Dioxide Anion Gap BUN Creatinine Estim Creat Clear Calc Estimated GFR POC Glucose 200 H 257 H Random Glucose Calcium Phosphorus Magnesium C-Reactive Protein Albumin Procalcitonin 04/26/22 04/26/22 04/26/22 05:17 05:17 05:18 WBC RBC Hgb Hct MCV MCH MCHC RDW Plt Count MPV Absolute Nucleated RBC Nucleated RBC % (auto) VBG pH 7.44 H VBG pCO2 40 VBG pO2 52 VBG HCO3 27 H VBG O2 Saturation 85.0 VBG Base Excess 3.7 Sodium 141 Potassium 4.7 Chloride 103 Carbon Dioxide 29 Anion Gap 14 BUN 16 Creatinine 0.79 Estim Creat Clear Calc 107.3 Estimated GFR > 60 POC Glucose Random Glucose 262 H Calcium 8.6 Phosphorus 1.9 L Magnesium 2.3 C-Reactive Protein 6.15 H Albumin 3.3 L Procalcitonin 0.08 04/26/22 04/26/22 05:38 10:47 WBC RBC Hgb Hct MCV MCH MCHC RDW Plt Count MPV Absolute Nucleated RBC Nucleated RBC % (auto) VBG pH VBG pCO2 VBG pO2 VBG HCO3 VBG O2 Saturation VBG Base Excess Sodium Potassium Chloride Carbon Dioxide Anion Gap BUN Creatinine Estim Creat Clear Calc Estimated GFR POC Glucose 248 H 282 H Random Glucose Calcium Phosphorus Magnesium C-Reactive Protein Albumin Procalcitonin Microbiology Microbiology Results: Microbiology 04/22/22 22:00 Blood - Venous Blood Culture - Preliminary No growth after 48 hours. 04/22/22 21:29 Blood - Venous Blood Culture - Preliminary No growth after 48 hours. Progress Note: A&P Assessment and plan (1) Acute respiratory failure with hypoxia: Status: Acute (2) Pneumonia due to COVID-19 virus: Status: Acute (3) COVID-19: Status: Acute (4) Asthma: Status: Acute (5) H. pylori infection: Status: Acute (6) Depression: Status: Acute (7) Disc herniation: Status: Acute (8) Acute cor pulmonale: Status: Acute Plan So again the plan here is to stop the Lasix failing any response in and stop the Nimbex drip and try Versed to see if her tachycardia and acute blood pressure respond in retrospect that would indicate that she probably is waking up breaking through the other 2 medications and I will probably add a Versed drip to keep things comfortable and her synchronous with the ventilator. Re-evaluate her clinically and by x-ray in the morning to see whether not we could start a sedation holiday and potentially a weaning process for her Quality Stroke Does the patient have a stroke diagnosis?: No VTE Prior VTE?: No VTE Risk Level:: Medical - moderate - high VTE Device Contraindication: Treatment Not Indicated VTE Drug Contraindication: N/A - Med Ordered
--- NOTE | 2022-04-26 13:55 | MHC.CLN ---
F/U PT REMAINS INTUBATED AND SEDATED PT RECEIVING PROMOTE AT TRICKLE RATE R/T NIMBEX DRIP TF PROVIDES 240KCALS (894KCALS WITH SEDATION), 15G PROTEIN, 201ML FREE WATER FROM FORMULA PT'S GOAL PROMOTE AT MAX GOAL RATE 30ML/HR TO PROVIDE 720KCALS (1374KCALS WITH SEDATION; 30KCALS/KG BASED ON IBW), 45G PROTEIN, 604ML FREE WATER MONITOR TOLERANCE, RESIDUALS AND LYTES FULL CLINICAL NUTRITION ASSESSMENT TO FOLLOW
[2022-04-26] MEDS: methylPREDNISolone Sod Succ 40 MG/ML VIAL IVPUSH ×2 (14:18→21:29)
[2022-04-26] MEDS: Midazolam HCl/PF 2 MG/2 ML VIAL 3 MG IVPUSH (15:02)
[2022-04-26 15:20] LABS: Appearance Urine Turbid; Color Urine Dark Yellow; Glucose Urine UA Negative (Negative); Leukocyte Esterase Urine Negative (Negative); Nitrite Urine Negative (Negative); Specific Gravity - Urine >= 1.030 (1.005-1.025); UMIC TRIGGER UA YES; Urine Blood Negative (Negative); Urine Ketones Trace mg/dL (Negative); Urine Protein 30 (1+) mg/dL (Neg-Trace)
[2022-04-26 15:48] LABS: Anion Gap 15 (12-20); Blood Urea Nitrogen 27 mg/dL (9-16); Calcium 8.9 mg/dL (8.4-10.2); Carbon Dioxide 30 mmol/L (22-29); Chloride 102 mmol/L (96-108); Creatinine Clr Calc Pharmacy 67.7; Estimated Glomerular Filt Rate 46; Glucose Random 266 mg/dL (60-115); Potassium 4.6 mmol/L (3.3-5.1); Sodium 142 mmol/L (135-145)
[2022-04-26 16:11] LABS: Bacteria Urine None Seen (None Seen); Hyaline Casts Urine 0-2 /LPF (0-2); Other Crystals Urine Present; RBC Urine >20 /HPF (0-2); WBC Urine 0-5 /HPF (0-5)
[2022-04-26] MEDS: Midazolam HCl/NS 50 MG/50 ML PLAST..BAG IVCONT (16:52)
[2022-04-26 18:03] LABS: B Type Natriuretic Peptide 53 pg/mL (<100)
[2022-04-26 18:16] LABS: Glucose, Whole Blood 277 mg/dL (60-115)
--- NOTE | 2022-04-26 18:35 | PC.NURSE ---
Pt continues to be sedated and intubated, initially on Nimbex gtt, unresponsive, - C&G, TOFour at 4/4 at 4 milamps, MD aware, TF continued at 10cc/hr, no residuals initially. Pt starting to wake more with HR in the 120s and SBP in the 170s, MD aware, Nimbex stopped at approximately 1500 and Versed IVP given one time as ordered, responding better with improved HR in the low 100s, Versed gtt initiated per MD. Pt had oliguric with UO of 5-10cc per 1-2 hrs, eddy patent and draining light patt urine, CVP at 15, MD was made aware, Lasix gtt started per order with no effect noted, stopped at 1630 per Md's order. At 1700, pt had a large incontinence of urine, and while giving a bed bath and inconitinence care, pt dumped 1280cc of dark patt urine in the catheter bag, eddy's balloon reinflated, CVP re-zeroed and remains at 15, made aware and plan to restart with Lasix gtt, awaiting med preparation from pharmacy. Pt is currently in no acute distress. Repositioned every 2 hrs and as needed. Safety maintained.
[2022-04-26] MEDS: Atorvastatin Calcium 40 MG TABLET 80 MG PO (21:30)
[2022-04-26] MEDS: Enoxaparin Sodium 60 MG/0.6 ML SYRINGE SUBCUT (21:32)
[2022-04-27] VITALS (33 sets, daily range): BP systolic 96–163; BP diastolic 50–87; PULSE 72–133; RESP 18–22; TEMP 34.9–38.7; O2SAT 90–99; BMI 50.1
[2022-04-27 00:03] LABS: Glucose, Whole Blood 291 mg/dL (60-115)
[2022-04-27] MEDS: Insulin Lispro 100 UNIT/ML 3 ML VIAL SUBCUT ×4 (00:06→17:39)
[2022-04-27] MEDS: propofoL 1,000 MG/100 ML VIAL 24.77 MG IVCONT ×6 (01:49→21:32)
[2022-04-27] MEDS: methylPREDNISolone Sod Succ 40 MG/ML VIAL IVPUSH (01:50)
[2022-04-27] MEDS: fentaNYL citrate/NS 1,000 MCG/100 ML PLAST..BAG 20 MCG IVCONT ×4 (04:22→19:52)
[2022-04-27] MEDS: Midazolam HCl/NS 50 MG/50 ML PLAST..BAG IVCONT (04:23)
[2022-04-27] MEDS: Albuterol Sulfate (0.083%) 2.5 MG/3 ML VIAL.NEB INHALE ×4 (05:06→23:47)
[2022-04-27] MEDS: Ipratropium Bromide 0.5 MG/2.5 ML SOLUTION INHALE ×3 (05:06→15:09)
[2022-04-27 05:51] LABS: VBG Base Excess 12.3 mmol/L; VBG HCO3 36 mmol/L (22-26); VBG pCO2 42 mmHg; VBG pH 7.54 (7.32-7.43); VBG pO2 45 mmHg
[2022-04-27 05:52] LABS: Venous Blood Gas Refer to POC result
[2022-04-27 05:55] LABS: MANUAL DIFF FLAG NO
[2022-04-27 06:15] LABS: Basophils Percent Auto 0.2 % (0-2); Hemoglobin 11.8 g/dl (12.0-16.0); Imm Gran Abs Auto 0.17 X10*3/uL (0.00-0.03); Imm Gran Pct Auto 1.7 % (0.0-0.4); Lymphocytes Absolute Auto 1.7 X10*3/uL (1.2-4.9); Lymphocytes Percent Auto 17.1 % (20-40); Mean Corpuscular HGB Conc 32.8 g/dl (31.0-35.0); Mean Corpuscular Hemoglobin 27.5 pg (27.0-33.0); Mean Corpuscular Volume 83.9 fL (80.0-98.0); Mean Platelet Volume 10.6 fL (9.4-12.3); Monocytes Absolute Auto 0.7 X10*3/uL (0.1-1.2); Monocytes Percent Auto 7.1 % (2-11); NRBC Pct Auto 0.2 /100WBC (0.0-0.2); Neutrophils Absolute Auto 7.5 x10*3/uL (2.0-8.3); Neutrophils Percent Auto 73.9 % (45-73); Platelet Count 246 X10*3/uL (160-400); Red Blood Count 4.29 X10*6/uL (4.20-5.50); Red Cell Distribution Width 14.8 % (11.0-16.0); White Blood Count 10.1 X10*3/uL (4.8-10.8)
[2022-04-27 06:18] LABS: Albumin Level 3.4 g/dL (3.5-5.0); Anion Gap 15 (12-20); Blood Urea Nitrogen 31 mg/dL (9-16); Calcium 8.7 mg/dL (8.4-10.2); Carbon Dioxide 34 mmol/L (22-29); Chloride 96 mmol/L (96-108); Creatinine Clr Calc Pharmacy 89.8; Estimated Glomerular Filt Rate > 60; Glucose Random 345 mg/dL (60-115); Phosphorus 3.1 mg/dL (2.7-4.5); Potassium 3.7 mmol/L (3.3-5.1); Sodium 141 mmol/L (135-145)
[2022-04-27 06:31] LABS: Glucose, Whole Blood 351 mg/dL (60-115)
[2022-04-27 06:42] LABS: Procalcitonin 0.07 ng/mL
[2022-04-27] MEDS: predniSONE 20 MG TABLET 40 MG PO (07:21)
[2022-04-27] MEDS: Aspirin 325 MG TABLET PO (07:21)
[2022-04-27] MEDS: Chlorhexidine Gluc Oral Rinse 15 ML MOUTHWASH BUCCAL ×3 (07:21→19:51)
[2022-04-27] MEDS: Famotidine/PF 20 MG/2 ML VIAL 40 MG IVPUSH ×2 (07:21→19:51)
[2022-04-27] MEDS: Insulin Glargine,Hum.rec.anlog 100 UNIT/ML 10 ML VIAL 20 UNIT SUBCUT (07:22)
[2022-04-27] MEDS: 0.9 % Sodium Chloride Flush 3 ML SYRINGE IVFLUSH ×2 (07:22→14:31)
--- NOTE | 2022-04-27 09:47 | MHC.CLN ---
F/U PT REMAINS INTUBATED AND SEDATED PT RECEIVING PROMOTE AT GOAL PT TOLERATING PROMOTE AT MAX GOAL RATE 30ML/HR TO PROVIDE 720KCALS (1374KCALS WITH SEDATION; 30KCALS/KG BASED ON IBW), 45G PROTEIN, 604ML FREE WATER RECOMMEND ADD ING 120ML FREE WATER FLSUHES Q 8 HORUS TO PROVIDE 964ML TOTAL FREE WATER FROM FORMULA AND FLUSHES COMBINED CONTINUE TO MONITOR TOLERANCE, RESIDUALS AND LYTES
[2022-04-27] MEDS: Thiamine HCL 100 MG in 0.9 % Sodium Chloride 100 ML 202 MG IV (10:34)
[2022-04-27 12:00] LABS: Glucose, Whole Blood 322 mg/dL (60-115)
[2022-04-27] MEDS: Acetaminophen 325 MG TABLET 650 MG PO (14:31)
--- NOTE | 2022-04-27 15:11 | PM.CCPN ---
Subjective Subjective Date of Service: 04/27/22 Interval History: 41-year-old morbidly obese female with underlying chronic asthma presented with acute hypoxemic respiratory failure related to extensive bilateral COVID-19 pneumonitis and has been intubated did have a persistent and recurring fevers Cultures to date thus far a negative Gram stain from the sputum is shows a polys and apparently yeast and Gram-positive cocci as well and 2 days ago repeat chest x-ray both lungs considerably white CVP measurement at that time was 15-16 with about a 5 L positive intake and output ratio initially went with a Lasix drip and we were able to accomplish a 2 L loss and this morning I gave her based on elevated CVP oral Lasix and metolazone together and she had a again a 2 L loss of fluid allowing her to come down on her peep and also weaning her FiO2 She failed weaning yesterday clearly had marked diaphragmatic effort became tachypneic did develop some distress and a climbing end-tidal CO2 in falling oxygen saturations so she was recent dated and placed back on assist control where she is today and if her current level of comfort persistent till the morning we will do a sedation holiday once again Critical Care Time (minutes): 45 Physical Exam Vital Signs: Vital Signs: Last Vital Signs Temp 101.7 F H 04/27/22 15:00 Pulse 78 04/27/22 15:00 Resp 22 H 04/27/22 15:00 BP 128/68 04/27/22 15:00 Pulse Ox 93 04/27/22 15:00 O2 Del Method 04/27/22 15:00 O2 Flow Rate 100 04/23/22 14:00 FiO2 50 04/27/22 15:00 BMI result Body Mass Index 50.1 Sedated and intubated with a 7.5 L minute ventilation and FiO2 currently between 40 and 50% and end-tidal CO2 of 35 and neurologically she moves all 4 extremities Bedside echo shows normal LV and RV function and no primary valve or pericardial disease Lungs with diminished breath sounds bilaterally no adventitious sounds Skin intact Objective Data Labs CBC & Chem 7: 04/28/22 05:15 04/28/22 05:15 Labs: Laboratory Results - last 24 hr 04/26/22 04/26/22 04/26/22 15:09 15:09 15:09 WBC RBC Hgb Hct MCV MCH MCHC RDW Plt Count MPV Immature Gran % (Auto) Neut % (Auto) Lymph % (Auto) [place] % (Auto) Eos % (Auto) Baso % (Auto) Lymph # (Auto) [place] # (Auto) Eos # (Auto) Baso # (Auto) Abs Immat Gran (auto) Absolute Neuts (auto) Absolute Nucleated RBC Nucleated RBC % (auto) VBG pH VBG pCO2 VBG pO2 VBG HCO3 VBG O2 Saturation VBG Base Excess Sodium 142 Potassium 4.6 Chloride 102 Carbon Dioxide 30 H Anion Gap 15 BUN 27 H Creatinine 1.27 Estim Creat Clear Calc 67.7 Estimated GFR 46 POC Glucose Random Glucose 266 H Calcium 8.9 Phosphorus Magnesium B-Natriuretic Peptide 53 Albumin Procalcitonin Urine Color Dark Yellow Urine Appearance Turbid Urine pH 6.0 Ur Specific [place] >= 1.030 H Urine Protein 30 (1+) H Urine Glucose (UA) Negative Urine Ketones Trace Urine Blood Negative Urine Nitrite Negative Ur Leukocyte Esterase Negative Urine RBC >20 H Urine WBC 0-5 Ur Squamous Epith Cells 3-5 Other Crystals Present Urine Bacteria None Seen Hyaline Casts 0-2 04/26/22 04/26/22 04/27/22 18:10 23:59 05:45 WBC RBC Hgb Hct MCV MCH MCHC RDW Plt Count MPV Immature Gran % (Auto) Neut % (Auto) Lymph % (Auto) [place] % (Auto) Eos % (Auto) Baso % (Auto) Lymph # (Auto) [place] # (Auto) Eos # (Auto) Baso # (Auto) Abs Immat Gran (auto) Absolute Neuts (auto) Absolute Nucleated RBC Nucleated RBC % (auto) VBG pH 7.54 H VBG pCO2 42 VBG pO2 45 VBG HCO3 36 H VBG O2 Saturation 75.0 VBG Base Excess 12.3 Sodium Potassium Chloride Carbon Dioxide Anion Gap BUN Creatinine Estim Creat Clear Calc Estimated GFR POC Glucose 277 H 291 H Random Glucose Calcium Phosphorus Magnesium B-Natriuretic Peptide Albumin Procalcitonin Urine Color Urine Appearance Urine pH Ur Specific [place] Urine Protein Urine Glucose (UA) Urine Ketones Urine Blood Urine Nitrite Ur Leukocyte Esterase Urine RBC Urine WBC Ur Squamous Epith Cells Other Crystals Urine Bacteria Hyaline Casts 04/27/22 04/27/22 04/27/22 05:46 05:46 05:46 WBC 10.1 RBC 4.29 Hgb 11.8 L Hct 36.0 L MCV 83.9 MCH 27.5 MCHC 32.8 RDW 14.8 Plt Count 246 MPV 10.6 Immature Gran % (Auto) 1.7 H Neut % (Auto) 73.9 H Lymph % (Auto) 17.1 L [place] % (Auto) 7.1 Eos % (Auto) 0.0 Baso % (Auto) 0.2 Lymph # (Auto) 1.7 [place] # (Auto) 0.7 Eos # (Auto) 0.0 Baso # (Auto) 0.0 Abs Immat Gran (auto) 0.17 H Absolute Neuts (auto) 7.5 Absolute Nucleated RBC 0.020 H Nucleated RBC % (auto) 0.2 VBG pH VBG pCO2 VBG pO2 VBG HCO3 VBG O2 Saturation VBG Base Excess Sodium 141 Potassium 3.7 Chloride 96 Carbon Dioxide 34 H Anion Gap 15 BUN 31 H Creatinine 0.95 Estim Creat Clear Calc 89.8 Estimated GFR > 60 POC Glucose Random Glucose 345 H Calcium 8.7 Phosphorus 3.1 Magnesium 2.0 B-Natriuretic Peptide Albumin 3.4 L Procalcitonin 0.07 Urine Color Urine Appearance Urine pH Ur Specific [place] Urine Protein Urine Glucose (UA) Urine Ketones Urine Blood Urine Nitrite Ur Leukocyte Esterase Urine RBC Urine WBC Ur Squamous Epith Cells Other Crystals Urine Bacteria Hyaline Casts 04/27/22 04/27/22 06:25 11:52 WBC RBC Hgb Hct MCV MCH MCHC RDW Plt Count MPV Immature Gran % (Auto) Neut % (Auto) Lymph % (Auto) [place] % (Auto) Eos % (Auto) Baso % (Auto) Lymph # (Auto) [place] # (Auto) Eos # (Auto) Baso # (Auto) Abs Immat Gran (auto) Absolute Neuts (auto) Absolute Nucleated RBC Nucleated RBC % (auto) VBG pH VBG pCO2 VBG pO2 VBG HCO3 VBG O2 Saturation VBG Base Excess Sodium Potassium Chloride Carbon Dioxide Anion Gap BUN Creatinine Estim Creat Clear Calc Estimated GFR POC Glucose 351 H* 322 H Random Glucose Calcium Phosphorus Magnesium B-Natriuretic Peptide Albumin Procalcitonin Urine Color Urine Appearance Urine pH Ur Specific [place] Urine Protein Urine Glucose (UA) Urine Ketones Urine Blood Urine Nitrite Ur Leukocyte Esterase Urine RBC Urine WBC Ur Squamous Epith Cells Other Crystals Urine Bacteria Hyaline Casts Microbiology Microbiology Results: Microbiology 04/22/22 22:00 Blood - Venous Blood Culture - Preliminary No growth after 48 hours. 04/22/22 21:29 Blood - Venous Blood Culture - Preliminary No growth after 48 hours. Progress Note: A&P Assessment and plan (1) Acute cor pulmonale: Status: Acute (2) Acute respiratory failure with hypoxia: Status: Acute (3) Pneumonia due to COVID-19 virus: Status: Acute (4) COVID-19: Status: Acute (5) Respiratory failure: Status: Acute (6) Asthma: Status: Acute (7) Cellulitis: Status: Acute (8) History of : Status: Acute (9) Sinus infection: Status: Acute (10) Migraine: Status: Acute (11) H. pylori infection: Status: Acute (12) Disc herniation: Status: Acute (13) Depression: Status: Acute Plan All told improving and after this last diuresis the chest x-rays much clear respiratory effort much more comfortable so at this point I am anticipating a sedation holiday and weaning attempt in the morning Quality Stroke Does the patient have a stroke diagnosis?: No VTE Prior VTE?: No VTE Risk Level:: Medical - moderate - high VTE Device Contraindication: Treatment Not Indicated VTE Drug Contraindication: N/A - Med Ordered
--- NOTE | 2022-04-27 15:15 | MHC.CM.PN ---
Pt continues on ventilatory support in ICU: medications adjusted to facilitate waking: original d/c plan was for a return to home w/family support: this may need to be revised to allow services as pt may be deconditioned. CM to follow for extubation/PT/OT evals
--- NOTE | 2022-04-27 18:35 | PC.NURSE ---
Pt trialled on Sedation Vacation per MD's order at 0730, pt waking up and becoming restless, fighting vent, unable to follow commands, back on sedation at 0830 per Md's order. Pt continues to be sedated and intubated, on vent settings AC: 22/350/50%/10 PEEP, satting low to mid 90s. Pt has TF going, water flushes given as ordered, residuals of 60-120. Pt's eddy draining 60-140cc per hr, CVP improved at from 9 to 7, MD aware. Pt bathed and repositioned every 2 hrs and as needed. Safety maintained. Will continue to monitor.
[2022-04-27 18:53] LABS: Glucose, Whole Blood 273 mg/dL (60-115)
[2022-04-27] MEDS: Atorvastatin Calcium 40 MG TABLET 80 MG PO (19:51)
[2022-04-28] VITALS (34 sets, daily range): BP systolic 91–130; BP diastolic 46–77; PULSE 62–138; RESP 22; TEMP 34.8–38.6; O2SAT 88–100; BMI 51.0
[2022-04-28] LABS: Glucose, Whole Blood 214 mg/dL (60-115)
[2022-04-28] MEDS: Enoxaparin Sodium 60 MG/0.6 ML SYRINGE SUBCUT ×2 (00:24→22:41)
[2022-04-28] MEDS: Thiamine HCL 100 MG in 0.9 % Sodium Chloride 100 ML 202 MG IV ×3 (00:24→22:41)
[2022-04-28] MEDS: 0.9 % Sodium Chloride Flush 3 ML SYRINGE IVFLUSH ×2 (00:27→23:50)
[2022-04-28] MEDS: Acetaminophen 325 MG TABLET 650 MG PO (00:28)
[2022-04-28] MEDS: Insulin Lispro 100 UNIT/ML 3 ML VIAL SUBCUT ×4 (00:28→17:58)
[2022-04-28] MEDS: fentaNYL citrate/NS 1,000 MCG/100 ML PLAST..BAG 20 MCG IVCONT ×3 (00:29→10:41)
[2022-04-28] MEDS: propofoL 1,000 MG/100 ML VIAL 24.77 MG IVCONT ×7 (00:38→17:59)
[2022-04-28] MEDS: Midazolam HCl/NS 50 MG/50 ML PLAST..BAG IVCONT (02:25)
--- NOTE | 2022-04-28 03:31 | PC.NURSE ---
Assumed care of patient @ 1845. Patient sedated on propofol, versed, and fentanyl. No behavioral indicator of pain noted. No spontaneous movement noted while on sedation. +gag/cough noted with oral & ETT care. Vent setting remain unchanged. SR 70-80's. Note patient BPs low trending (MAPs 61-63). Levophed to be administered for goal MAP >65. CVP 15-17 this shift. Continued elevated temperatures despite PRN Tylenol, application of cooling blanket, cool pack to axilla/groin/neck. Orders for CXR, blood cultures, and UA received and performed. F/C changed per protocol. Promote TF @ goal, minimal residuals noted. BG monitored and treated per sliding scale. Bilateral wrist restraints remain for safety.
[2022-04-28 03:35] LABS: Lactic Acid 1.7 mmol/L (0.5-2.0)
[2022-04-28] MEDS: Ipratropium Bromide 0.5 MG/2.5 ML SOLUTION INHALE ×4 (04:02→16:43)
[2022-04-28] MEDS: Albuterol Sulfate (0.083%) 2.5 MG/3 ML VIAL.NEB INHALE ×3 (04:13→16:43)
[2022-04-28 04:22] LABS: Appearance Urine Cloudy; Color Urine Brown; Glucose Urine UA Negative (Negative); Leukocyte Esterase Urine Moderate (2+) (Negative); Nitrite Urine Negative (Negative); PH 6.5 (5.0-9.0); Specific Gravity - Urine >= 1.030 (1.005-1.025); UMIC TRIGGER UA YES; Urine Blood Large (3+) (Negative); Urine Ketones Negative (Negative); Urine Protein 300 (3+) mg/dL (Neg-Trace)
[2022-04-28 04:23] LABS: Bacteria Urine None Seen (None Seen); Hyaline Casts Urine 0-2 /LPF (0-2); RBC Urine >20 /HPF (0-2); WBC Urine >50 /HPF (0-5)
[2022-04-28] MEDS: Norepinephrine Bitartrate/D5W 8 MG/250 ML PLAST..BAG 3.1 MG IV (04:52)
[2022-04-28 05:49] LABS: Glucose, Whole Blood 181 mg/dL (60-115)
[2022-04-28 05:50] LABS: Basophils Percent Auto 0.1 % (0-2); Eosinophils Absolute Auto 0.2 X10*3/uL (0.0-0.4); Eosinophils Percent Auto 0.9 % (0-4); Hematocrit 35.6 % (37.0-47.0); Hemoglobin 11.2 g/dl (12.0-16.0); Imm Gran Abs Auto 0.32 X10*3/uL (0.00-0.03); Imm Gran Pct Auto 1.9 % (0.0-0.4); MANUAL DIFF FLAG SCAN; Mean Corpuscular HGB Conc 31.5 g/dl (31.0-35.0); Mean Corpuscular Hemoglobin 27.5 pg (27.0-33.0); Mean Corpuscular Volume 87.3 fL (80.0-98.0); Mean Platelet Volume 11.1 fL (9.4-12.3); Monocytes Absolute Auto 1.1 X10*3/uL (0.1-1.2); Monocytes Percent Auto 6.6 % (2-11); NRBC Pct Auto 0.2 /100WBC (0.0-0.2); Neutrophils Absolute Auto 8.8 x10*3/uL (2.0-8.3); Neutrophils Percent Auto 53.5 % (45-73); Platelet Count 260 X10*3/uL (160-400); Red Blood Count 4.08 X10*6/uL (4.20-5.50); Red Cell Distribution Width 14.7 % (11.0-16.0); SCAN SMEAR FLAG 1; White Blood Count 16.5 X10*3/uL (4.8-10.8)
[2022-04-28 05:59] LABS: Lymphocytes Absolute Auto 6.1 X10*3/uL (1.2-4.9)
[2022-04-28 06:09] LABS: Albumin Level 3.1 g/dL (3.5-5.0); Anion Gap 11 (12-20); Blood Urea Nitrogen 28 mg/dL (9-16); Calcium 8.5 mg/dL (8.4-10.2); Carbon Dioxide 37 mmol/L (22-29); Chloride 100 mmol/L (96-108); Creatinine Clr Calc Pharmacy 123.4; Estimated Glomerular Filt Rate > 60; Glucose Random 174 mg/dL (60-115); Magnesium 2.1 mg/dL (1.6-2.6); Phosphorus 2.5 mg/dL (2.7-4.5); Potassium 3.8 mmol/L (3.3-5.1); Sodium 144 mmol/L (135-145)
[2022-04-28 06:16] LABS: SLIDE REVIEW VERIFIED
[2022-04-28 06:34] LABS: VBG Base Excess 14.3 mmol/L; VBG HCO3 38 mmol/L (22-26); VBG pCO2 46 mmHg; VBG pH 7.52 (7.32-7.43); VBG pO2 54 mmHg
[2022-04-28 06:37] LABS: Venous Blood Gas Refer to POC result
[2022-04-28] MEDS: metroNIDAZOLE/NS 500 MG/100 ML PIGGYBACK 100 MG IV ×3 (07:20→22:41)
[2022-04-28] MEDS: vancomycin HCL 1,500 MG in 0.9 % Sodium Chloride 500 ML 333.33 MG IV (07:20)
[2022-04-28] MEDS: levoFLOXacin/D5W 750 MG/150 ML PIGGYBACK 100 MG IV (07:20)
[2022-04-28] MEDS: Chlorhexidine Gluc Oral Rinse 15 ML MOUTHWASH BUCCAL ×3 (07:20→19:40)
[2022-04-28] MEDS: Aspirin 325 MG TABLET PO (07:21)
[2022-04-28] MEDS: Insulin Glargine,Hum.rec.anlog 100 UNIT/ML 10 ML VIAL 20 UNIT SUBCUT (07:21)
[2022-04-28] MEDS: predniSONE 20 MG TABLET 40 MG PO (07:21)
[2022-04-28] MEDS: Famotidine/PF 20 MG/2 ML VIAL 40 MG IVPUSH ×2 (07:21→19:39)
[2022-04-28] MEDS: Caspofungin Acetate 70 MG in 0.9 % Sodium Chloride 250 ML 250 MG IV (08:58)
[2022-04-28] MEDS: Potassium Chloride Packet 20 MEQ PACKET 40 MEQ PO (09:35)
[2022-04-28] MEDS: Furosemide 40 MG TABLET PO (09:35)
[2022-04-28] MEDS: metOLazone 2.5 MG TABLET PO (09:35)
--- NOTE | 2022-04-28 10:31 | MHC.CLN ---
F/U PT REMAINS INTUBATED AND SEDATED PT RECEIVING PROMOTE AT GOAL PT TOLERATING PROMOTE AT MAX GOAL RATE 30ML/HR WITH 120ML FREE WATER FLUSHES Q 8 HOURS PROVIDES 720KCALS (1374KCALS WITH SEDATION; 30KCALS/KG BASED ON IBW), 45G PROTEIN, 964ML TOTAL FREE WATER FROM FORMULA AND FLUSHES COMBINED CONTINUE TO MONITOR TOLERANCE, RESIDUALS AND LYTES
[2022-04-28 10:49] LABS: Glucose, Whole Blood 191 mg/dL (60-115)
[2022-04-28] MEDS: fentaNYL citrate/NS 1,000 MCG/100 ML PLAST..BAG 17.5 MCG IVCONT (15:21)
--- NOTE | 2022-04-28 16:04 | PM.CCPN ---
Subjective Subjective Date of Service: 04/28/22 Interval History: 41-year-old obese female with longstanding asthma presents with acute hypoxemic respiratory failure from COVID-19 pneumonitis and she has been intubated for several days also complicated by persistently recurring fever although there is no particular left shift on her white count and we have a marked improvement in the clarity of her chest x-ray but that is specially since diuresing her from this 5 L iatrogenic fluid overload that is allowed her minutes ventilatory work to come down to 7.5 L FiO2 to come down to about 40-45% and improvement in the end-tidal CO2 from about 48 down to about 35 Bedside echo showing normal LV function no primary valve or pericardial disease Critical Care Time (minutes): 45 Physical Exam Vital Signs: Vital Signs: Last Vital Signs Temp 99.5 F 04/28/22 15:00 Pulse 72 04/28/22 15:00 Resp 22 H 04/28/22 15:00 BP 104/53 L 04/28/22 15:00 Pulse Ox 95 04/28/22 15:00 O2 Del Method 04/28/22 13:58 O2 Flow Rate 100 04/23/22 14:00 FiO2 50 04/28/22 15:39 BMI result Body Mass Index 51.0 Moves all 4 extremities but but comfortably sedated and intubated and synchronous Bedside echo with normal cardiac exam No decubitus skin is intact Abdomen benign no again a megaly Objective Data Labs CBC & Chem 7: 04/28/22 05:15 04/28/22 05:15 Labs: Laboratory Results - last 24 hr 04/27/22 04/27/22 04/28/22 17:32 23:48 02:52 WBC RBC Hgb Hct MCV MCH MCHC RDW Plt Count MPV Immature Gran % (Auto) Neut % (Auto) Lymph % (Auto) [place] % (Auto) Eos % (Auto) Baso % (Auto) Lymph # (Auto) [place] # (Auto) Eos # (Auto) Baso # (Auto) Abs Immat Gran (auto) Absolute Neuts (auto) Absolute Nucleated RBC Nucleated RBC % (auto) Smear Tech's Comments O2 Saturation ABG pH at Pt Temp ABG pCO2 at Pt Temp ABG pO2 at Pt Temp ABG HCO3 ABG Base Excess (Actual) VBG pH VBG pCO2 VBG pO2 VBG HCO3 VBG O2 Saturation VBG Base Excess Sodium Potassium Chloride Carbon Dioxide Anion Gap BUN Creatinine Estim Creat Clear Calc Estimated GFR POC Glucose 273 H 214 H Random Glucose Lactic Acid 1.7 Calcium Phosphorus Magnesium Albumin Urine Color Urine Appearance Urine pH Ur Specific [place] Urine Protein Urine Glucose (UA) Urine Ketones Urine Blood Urine Nitrite Ur Leukocyte Esterase Urine RBC Urine WBC Ur Squamous Epith Cells Urine Bacteria Hyaline Casts 04/28/22 04/28/22 04/28/22 05:15 05:15 05:16 WBC 16.5 H RBC 4.08 L Hgb 11.2 L Hct 35.6 L MCV 87.3 MCH 27.5 MCHC 31.5 RDW 14.7 Plt Count 260 MPV 11.1 Immature Gran % (Auto) 1.9 H Neut % (Auto) 53.5 Lymph % (Auto) 37.0 [place] % (Auto) 6.6 Eos % (Auto) 0.9 Baso % (Auto) 0.1 Lymph # (Auto) 6.1 H [place] # (Auto) 1.1 Eos # (Auto) 0.2 Baso # (Auto) 0.0 Abs Immat Gran (auto) 0.32 H Absolute Neuts (auto) 8.8 H Absolute Nucleated RBC 0.040 H Nucleated RBC % (auto) 0.2 Smear Tech's Comments VERIFIED O2 Saturation ABG pH at Pt Temp ABG pCO2 at Pt Temp ABG pO2 at Pt Temp ABG HCO3 ABG Base Excess (Actual) VBG pH 7.52 H VBG pCO2 46 VBG pO2 54 VBG HCO3 38 H VBG O2 Saturation 84.0 VBG Base Excess 14.3 Sodium 144 Potassium 3.8 Chloride 100 Carbon Dioxide 37 H Anion Gap 11 L BUN 28 H Creatinine 0.70 Estim Creat Clear Calc 123.4 Estimated GFR > 60 POC Glucose Random Glucose 174 H Lactic Acid Calcium 8.5 Phosphorus 2.5 L Magnesium 2.1 Albumin 3.1 L Urine Color Urine Appearance Urine pH Ur Specific [place] Urine Protein Urine Glucose (UA) Urine Ketones Urine Blood Urine Nitrite Ur Leukocyte Esterase Urine RBC Urine WBC Ur Squamous Epith Cells Urine Bacteria Hyaline Casts 04/28/22 04/28/22 04/28/22 05:27 05:39 10:45 WBC RBC Hgb Hct MCV MCH MCHC RDW Plt Count MPV Immature Gran % (Auto) Neut % (Auto) Lymph % (Auto) [place] % (Auto) Eos % (Auto) Baso % (Auto) Lymph # (Auto) [place] # (Auto) Eos # (Auto) Baso # (Auto) Abs Immat Gran (auto) Absolute Neuts (auto) Absolute Nucleated RBC Nucleated RBC % (auto) Smear Tech's Comments O2 Saturation TNP ABG pH at Pt Temp TNP ABG pCO2 at Pt Temp TNP ABG pO2 at Pt Temp TNP ABG HCO3 TNP ABG Base Excess (Actual) TNP VBG pH VBG pCO2 VBG pO2 VBG HCO3 VBG O2 Saturation VBG Base Excess Sodium Potassium Chloride Carbon Dioxide Anion Gap BUN Creatinine Estim Creat Clear Calc Estimated GFR POC Glucose 181 H 191 H Random Glucose Lactic Acid Calcium Phosphorus Magnesium Albumin Urine Color Urine Appearance Urine pH Ur Specific [place] Urine Protein Urine Glucose (UA) Urine Ketones Urine Blood Urine Nitrite Ur Leukocyte Esterase Urine RBC Urine WBC Ur Squamous Epith Cells Urine Bacteria Hyaline Casts 04/28/22 Unknown WBC RBC Hgb Hct MCV MCH MCHC RDW Plt Count MPV Immature Gran % (Auto) Neut % (Auto) Lymph % (Auto) [place] % (Auto) Eos % (Auto) Baso % (Auto) Lymph # (Auto) [place] # (Auto) Eos # (Auto) Baso # (Auto) Abs Immat Gran (auto) Absolute Neuts (auto) Absolute Nucleated RBC Nucleated RBC % (auto) Smear Tech's Comments O2 Saturation ABG pH at Pt Temp ABG pCO2 at Pt Temp ABG pO2 at Pt Temp ABG HCO3 ABG Base Excess (Actual) VBG pH VBG pCO2 VBG pO2 VBG HCO3 VBG O2 Saturation VBG Base Excess Sodium Potassium Chloride Carbon Dioxide Anion Gap BUN Creatinine Estim Creat Clear Calc Estimated GFR POC Glucose Random Glucose Lactic Acid Calcium Phosphorus Magnesium Albumin Urine Color Brown A Urine Appearance Cloudy Urine pH 6.5 Ur Specific [place] >= 1.030 H Urine Protein 300 (3+) H Urine Glucose (UA) Negative Urine Ketones Negative Urine Blood Large (3+) H Urine Nitrite Negative Ur Leukocyte Esterase Moderate (2+) H Urine RBC >20 H Urine WBC >50 H Ur Squamous Epith Cells 6-10 Urine Bacteria None Seen Hyaline Casts 0-2 Microbiology Microbiology Results: Microbiology 04/28/22 08:11 Sputum - Suctioned Gram Stain - Final 04/22/22 22:00 Blood - Venous Blood Culture - Final No growth after 5 days. 04/22/22 21:29 Blood - Venous Blood Culture - Final No growth after 5 days. Progress Note: A&P Assessment and plan (1) Acute cor pulmonale: Status: Acute (2) Acute respiratory failure with hypoxia: Status: Acute (3) Pneumonia due to COVID-19 virus: Status: Acute (4) COVID-19: Status: Acute (5) Respiratory failure: Status: Acute (6) Asthma: Status: Acute (7) Cellulitis: Status: Acute (8) History of : Status: Acute (9) Sinus infection: Status: Acute (10) Migraine: Status: Acute (11) H. pylori infection: Status: Acute (12) Disc herniation: Status: Acute (13) Depression: Status: Acute Plan A plan is a sedation holiday in the morning and then an attempted weaning the ventilator and I will consider covering the sputum although it just appears to be colonized Quality Stroke Does the patient have a stroke diagnosis?: No VTE Prior VTE?: No VTE Risk Level:: Medical - moderate - high VTE Device Contraindication: Treatment Not Indicated VTE Drug Contraindication: N/A - Med Ordered
[2022-04-28 18:01] LABS: Glucose, Whole Blood 171 mg/dL (60-115)
[2022-04-28] MEDS: Atorvastatin Calcium 40 MG TABLET 80 MG PO (19:40)
[2022-04-28] MEDS: fentaNYL citrate/NS 1,000 MCG/100 ML PLAST..BAG 15 MCG IVCONT (21:36)
[2022-04-28] MEDS: Lactulose 20 GM/30 ML SOLUTION PO (21:37)
[2022-04-28] MEDS: propofoL 1,000 MG/100 ML VIAL 22.29 MG IVCONT (22:40)
[2022-04-29] VITALS (32 sets, daily range): BP systolic 90–130; BP diastolic 43–71; PULSE 62–80; RESP 21–22; TEMP 35–37.4; O2SAT 88–97; BMI 49.8
[2022-04-29 00:50] LABS: Glucose, Whole Blood 138 mg/dL (60-115)
[2022-04-29] MEDS: Ipratropium Bromide 0.5 MG/2.5 ML SOLUTION INHALE ×4 (00:53→15:39)
[2022-04-29] MEDS: Albuterol Sulfate (0.083%) 2.5 MG/3 ML VIAL.NEB INHALE ×4 (00:53→15:38)
[2022-04-29 01:33] LABS: VBG HCO3 41 mmol/L (22-26); VBG pCO2 43 mmHg; VBG pH 7.59 (7.32-7.43); VBG pO2 46 mmHg
[2022-04-29] MEDS: propofoL 1,000 MG/100 ML VIAL 19.81 MG IVCONT ×5 (02:27→20:33)
[2022-04-29 02:56] LABS: Venous Blood Gas Refer to POC result
[2022-04-29] MEDS: Midazolam HCl/NS 50 MG/50 ML PLAST..BAG IVCONT (04:10)
[2022-04-29] MEDS: fentaNYL citrate/NS 1,000 MCG/100 ML PLAST..BAG 15 MCG IVCONT (04:11)
[2022-04-29 05:12] LABS: VBG Base Excess 16.5 mmol/L; VBG HCO3 40 mmol/L (22-26); VBG pCO2 43 mmHg; VBG pH 7.57 (7.32-7.43); VBG pO2 49 mmHg
[2022-04-29 05:18] LABS: Basophils Percent Auto 0.1 % (0-2); Eosinophils Absolute Auto 0.7 X10*3/uL (0.0-0.4); Eosinophils Percent Auto 3.4 % (0-4); Hematocrit 36.2 % (37.0-47.0); Hemoglobin 11.9 g/dl (12.0-16.0); Imm Gran Abs Auto 0.55 X10*3/uL (0.00-0.03); Imm Gran Pct Auto 2.7 % (0.0-0.4); Lymphocytes Percent Auto 36.5 % (20-40); MANUAL DIFF FLAG SCAN; Mean Corpuscular HGB Conc 32.9 g/dl (31.0-35.0); Mean Corpuscular Volume 85.2 fL (80.0-98.0); Mean Platelet Volume 11.1 fL (9.4-12.3); Monocytes Absolute Auto 1.4 X10*3/uL (0.1-1.2); Monocytes Percent Auto 6.8 % (2-11); NRBC Pct Auto 0.4 /100WBC (0.0-0.2); Neutrophils Absolute Auto 10.5 x10*3/uL (2.0-8.3); Neutrophils Percent Auto 50.5 % (45-73); Platelet Count 342 X10*3/uL (160-400); Red Blood Count 4.25 X10*6/uL (4.20-5.50); SCAN SMEAR FLAG 1; White Blood Count 20.7 X10*3/uL (4.8-10.8)
[2022-04-29 05:22] LABS: Lymphocytes Absolute Auto 7.6 X10*3/uL (1.2-4.9)
[2022-04-29 05:30] LABS: Venous Blood Gas Refer to POC result
[2022-04-29 05:38] LABS: Albumin Level 3.4 g/dL (3.5-5.0); Anion Gap 15 (12-20); Blood Urea Nitrogen 22 mg/dL (9-16); Calcium 9.2 mg/dL (8.4-10.2); Carbon Dioxide 37 mmol/L (22-29); Chloride 90 mmol/L (96-108); Creatinine Clr Calc Pharmacy 112.2; Estimated Glomerular Filt Rate > 60; Glucose Random 145 mg/dL (60-115); Magnesium 1.8 mg/dL (1.6-2.6); Phosphorus 3.9 mg/dL (2.7-4.5); Potassium 3.9 mmol/L (3.3-5.1); SLIDE REVIEW VERIFIED; Sodium 138 mmol/L (135-145)
[2022-04-29 05:47] LABS: Glucose, Whole Blood 163 mg/dL (60-115)
[2022-04-29] MEDS: metroNIDAZOLE/NS 500 MG/100 ML PIGGYBACK 100 MG IV (06:10)
[2022-04-29] MEDS: 0.9 % Sodium Chloride Flush 3 ML SYRINGE IVFLUSH ×2 (07:35→23:59)
[2022-04-29] MEDS: Chlorhexidine Gluc Oral Rinse 15 ML MOUTHWASH BUCCAL ×3 (07:35→20:33)
[2022-04-29] MEDS: Aspirin 325 MG TABLET PO (07:35)
[2022-04-29] MEDS: predniSONE 20 MG TABLET 40 MG PO (07:35)
[2022-04-29] MEDS: Famotidine/PF 20 MG/2 ML VIAL 40 MG IVPUSH ×2 (07:36→20:33)
[2022-04-29] MEDS: Insulin Glargine,Hum.rec.anlog 100 UNIT/ML 10 ML VIAL 20 UNIT SUBCUT (10:07)
[2022-04-29] MEDS: Thiamine HCL 100 MG in 0.9 % Sodium Chloride 100 ML 202 MG IV ×2 (10:08→23:10)
[2022-04-29 12:06] LABS: Glucose, Whole Blood 256 mg/dL (60-115)
[2022-04-29] MEDS: fentaNYL citrate/NS 1,000 MCG/100 ML PLAST..BAG 12.5 MCG IVCONT ×2 (12:20→20:50)
[2022-04-29] MEDS: 0.9 % Sodium Chloride 1,000 ML 50 ML IVCONT (12:52)
[2022-04-29] MEDS: Insulin Lispro 100 UNIT/ML 3 ML VIAL SUBCUT ×2 (12:52→17:43)
--- NOTE | 2022-04-29 12:57 | PHA.PROG ---
Admission Date/Time: April 23, 2022 00:29 Indication: OTHER Weight in k.8 kg Adjusted body weight in Kg: [place] body weight in Kg: Obesity Dosing Indication % IBW: Serum Creatinine - Last 168 Hours 04/22/22 04/23/22 04/23/22 21:26 06:01 21:06 Creatinine 0.78 0.78 0.77 04/24/22 04/25/22 04/26/22 05:10 05:22 05:17 Creatinine 0.83 0.74 0.79 04/26/22 04/27/22 04/28/22 15:09 05:46 05:15 Creatinine 1.27 0.95 0.70 04/29/22 05:02 Creatinine 0.77 Estimated CrCl and GFR - Last 168 Hours 04/22/22 04/23/22 04/23/22 21:26 06:01 21:06 Estim Creat Clear Calc 89.4 89.4 90.6 Estimated GFR > 60 > 60 > 60 04/24/22 04/25/22 04/26/22 05:10 05:22 05:17 Estim Creat Clear Calc 102.5 114.6 107.3 Estimated GFR > 60 > 60 > 60 04/26/22 04/27/22 04/28/22 15:09 05:46 05:15 Estim Creat Clear Calc 67.7 89.8 123.4 Estimated GFR 46 > 60 > 60 04/29/22 05:02 Estim Creat Clear Calc 112.2 Estimated GFR > 60 Vancomycin Loading Dose: 1500 MG Current Vancomycin Dosing Regimen: 1000MG Q12H Vancomycin Monitoring using AUC goal of 400 - 600 range with trough as surrogate marker: AUC 483 TROUGH 13.7 Date and Time for next Vancomycin Level to be drawn: 04/30 @1100 Pharmacist Comments on Vancomycin Plan: OBESE Vancomycin dosing will take advantage of [employer] as a clinical decision support tool that uses Bayesian modeling to calculate individual patient's pharmacokinetic parameters and forecast the patient's drug concentration time course with the target goal AUC 24 range of 400 - 600 mg/L/hr.
[2022-04-29] MEDS: Caspofungin Acetate 50 MG in 0.9 % Sodium Chloride 250 ML 250 MG IV (13:48)
[2022-04-29] MEDS: vancomycin HCL 1,000 MG in 0.9 % Sodium Chloride 250 ML 270 MG IV (13:48)
[2022-04-29 14:42] LABS: Osmolality Urine 368 mosm/kg (373-1093)
--- NOTE | 2022-04-29 16:04 | PM.CCPN ---
Subjective Subjective Date of Service: 04/29/22 Interval History: 41-year-old morbidly obese female background chronic lung history of asthma presented with acute hypoxemic respiratory failure from bilateral COVID-19 pneumonitis been intubated now getting close to week and had FiO2 down at 1 point as low as 35% and then it climb towards 50% she has always had an obstructive pattern on the end-tidal CO2 which is currently improved from 45 now down to 35 for the last 2 days with less obstructive pattern but the low-grade temperature resulted in and extensive re-culturing and the sputum seems to be growing staph at as well as a candidal fungal species so I have the patient now slowly on vancomycin and caspofungin and she looks like she has been afebrile now for close to 24 hours and the repeat CT scan does no longer show any of those large bilateral eyelids of ground-glass infiltrate but we have bibasilar areas of consolidation and or atelectasis and this could be consistent with a secondary bacterial pneumonia but could all be just atelectasis with colonization Today all of a sudden she started to develop significant polyuria greater than 300 cc/hour spontaneously without any diuretic and metabolically she has got a significant metabolic alkalosis which seems to be climbing each day and a low serum chloride so I am trying to replace her chloride with normal saline to see if this is is a saline responsive metabolic alkalosis improving are point that the diuretic is at fault for this metabolic issue The urine osmolality and urine electrolytes are both indicating that this is not and has Modic diuresis and certainly is not nephrogenic diabetes insipidus Critical Care Time (minutes): 45 Physical Exam Vital Signs: Vital Signs: Last Vital Signs Temp 99.0 F 04/29/22 15:00 Pulse 62 04/29/22 15:00 Resp 22 H 04/29/22 15:00 BP 115/58 L 04/29/22 15:00 Pulse Ox 97 04/29/22 15:00 O2 Del Method 04/29/22 15:00 O2 Flow Rate 100 04/23/22 14:00 FiO2 50 04/29/22 15:42 BMI result Body Mass Index 49.8 Bedside cardiac exam with normal LV and RV function and no primary valve or pericardial disease Sedated intubated with intact skin Lungs without adventitious sounds Abdomen soft no organomegaly Objective Data Labs 04/29/22 05:02 04/29/22 05:02 Labs: Laboratory Results - last 24 hr 04/28/22 04/28/22 04/29/22 17:54 23:23 01:25 WBC RBC Hgb Hct MCV MCH MCHC RDW Plt Count MPV Immature Gran % (Auto) Neut % (Auto) Lymph % (Auto) [place] % (Auto) Eos % (Auto) Baso % (Auto) Lymph # (Auto) [place] # (Auto) Eos # (Auto) Baso # (Auto) Abs Immat Gran (auto) Absolute Neuts (auto) Absolute Nucleated RBC Nucleated RBC % (auto) Smear Tech's Comments VBG pH 7.59 H VBG pCO2 43 VBG pO2 46 VBG HCO3 41 H VBG O2 Saturation 76.0 VBG Base Excess 18.0 Sodium Potassium Chloride Carbon Dioxide Anion Gap BUN Creatinine Estim Creat Clear Calc Estimated GFR POC Glucose 171 H 138 H Random Glucose Calcium Phosphorus Magnesium Albumin Urine Osmolality Ur Random Sodium Ur Random Chloride 04/29/22 04/29/22 04/29/22 05:02 05:02 05:03 WBC 20.7 H RBC 4.25 Hgb 11.9 L Hct 36.2 L MCV 85.2 MCH 28.0 MCHC 32.9 RDW 14.0 Plt Count 342 D MPV 11.1 Immature Gran % (Auto) 2.7 H Neut % (Auto) 50.5 Lymph % (Auto) 36.5 [place] % (Auto) 6.8 Eos % (Auto) 3.4 Baso % (Auto) 0.1 Lymph # (Auto) 7.6 H [place] # (Auto) 1.4 H Eos # (Auto) 0.7 H Baso # (Auto) 0.0 Abs Immat Gran (auto) 0.55 H Absolute Neuts (auto) 10.5 H Absolute Nucleated RBC 0.080 H Nucleated RBC % (auto) 0.4 H Smear Tech's Comments VERIFIED VBG pH 7.57 H VBG pCO2 43 VBG pO2 49 VBG HCO3 40 H VBG O2 Saturation 79.0 VBG Base Excess 16.5 Sodium 138 Potassium 3.9 Chloride 90 L Carbon Dioxide 37 H Anion Gap 15 BUN 22 H Creatinine 0.77 Estim Creat Clear Calc 112.2 Estimated GFR > 60 POC Glucose Random Glucose 145 H Calcium 9.2 D Phosphorus 3.9 Magnesium 1.8 Albumin 3.4 L Urine Osmolality Ur Random Sodium Ur Random Chloride 04/29/22 04/29/22 04/29/22 05:42 11:57 13:25 WBC RBC Hgb Hct MCV MCH MCHC RDW Plt Count MPV Immature Gran % (Auto) Neut % (Auto) Lymph % (Auto) [place] % (Auto) Eos % (Auto) Baso % (Auto) Lymph # (Auto) [place] # (Auto) Eos # (Auto) Baso # (Auto) Abs Immat Gran (auto) Absolute Neuts (auto) Absolute Nucleated RBC Nucleated RBC % (auto) Smear Tech's Comments VBG pH VBG pCO2 VBG pO2 VBG HCO3 VBG O2 Saturation VBG Base Excess Sodium Potassium Chloride Carbon Dioxide Anion Gap BUN Creatinine Estim Creat Clear Calc Estimated GFR POC Glucose 163 H 256 H Random Glucose Calcium Phosphorus Magnesium Albumin Urine Osmolality Ur Random Sodium 85.0 Ur Random Chloride 55.0 04/29/22 13:25 WBC RBC Hgb Hct MCV MCH MCHC RDW Plt Count MPV Immature Gran % (Auto) Neut % (Auto) Lymph % (Auto) [place] % (Auto) Eos % (Auto) Baso % (Auto) Lymph # (Auto) [place] # (Auto) Eos # (Auto) Baso # (Auto) Abs Immat Gran (auto) Absolute Neuts (auto) Absolute Nucleated RBC Nucleated RBC % (auto) Smear Tech's Comments VBG pH VBG pCO2 VBG pO2 VBG HCO3 VBG O2 Saturation VBG Base Excess Sodium Potassium Chloride Carbon Dioxide Anion Gap BUN Creatinine Estim Creat Clear Calc Estimated GFR POC Glucose Random Glucose Calcium Phosphorus Magnesium Albumin Urine Osmolality 368 L Ur Random Sodium Ur Random Chloride Microbiology Microbiology Results: Microbiology 04/28/22 08:11 Sputum - Suctioned Gram Stain - Final 04/28/22 08:11 Sputum - Suctioned Sputum Culture - Preliminary Staphylococcus species 04/28/22 02:52 Blood - Venous Blood Culture - Preliminary No growth after 24 hours. 04/28/22 02:52 Blood - Venous Blood Culture - Preliminary No growth after 24 hours. 04/22/22 22:00 Blood - Venous Blood Culture - Final No growth after 5 days. 04/22/22 21:29 Blood - Venous Blood Culture - Final No growth after 5 days. Progress Note: A&P Assessment and plan (1) Acute cor pulmonale: Status: Acute (2) Acute respiratory failure with hypoxia: Status: Acute (3) Pneumonia due to COVID-19 virus: Status: Acute (4) COVID-19: Status: Acute (5) Respiratory failure: Status: Acute (6) Asthma: Status: Acute (7) Cellulitis: Status: Acute (8) History of : Status: Acute (9) Sinus infection: Status: Acute (10) Migraine: Status: Acute (11) H. pylori infection: Status: Acute (12) Disc herniation: Status: Acute (13) Depression: Status: Acute Plan At this point I see the polyuria as an auto diuresis possibly recouping 3rd space fluid this being an indication of improving right ventricular function which indicates that she has got improving lung disease and that is what the CT scan seems to imply so I hope were on the mend by light maintain caspofungin and vancomycin and the AF FiO2 comes down to 40% I will begin sedation holiday and a weaning process Quality Stroke Does the patient have a stroke diagnosis?: No VTE Prior VTE?: No VTE Risk Level:: Medical - moderate - high VTE Device Contraindication: Treatment Not Indicated VTE Drug Contraindication: N/A - Med Ordered
--- NOTE | 2022-04-29 16:08 | MHC.CM.PN ---
Pt continues on ventilatory support in ICU: FiO2 at 50%. Repeat imaging completed: Plan of care is for continuation w/goals of vent weaning. CM to follow for d/c plan finalization will likely include STR of some sort.
[2022-04-29 17:44] LABS: Glucose, Whole Blood 192 mg/dL (60-115)
--- NOTE | 2022-04-29 18:26 | PC.NURSE ---
PATIENT HEAVILY SEDATED ON MORNING ASSESSMENT TO MAINTAIN VENT SYNCHRONY. PATIENT LOPEZ EXCESSIVELY DRAINING. PATIENT AVERAGING 250+ ML OF URINE OUTPUT PER HOUR. MD NOTIFIED AND AWARE, NO FURTHER INSTRUCTIONS GIVEN AT THAT MOMENT. PATIENT BROUGHT DOWN FOR CHEST AND ABD CT, BROUGHT DOWN BY RN, TECH, AND RT. PATIENT HANDLED TRANSFER OUT OF UNIT AND PROCEDURE WELL WITHOUT COMPLICATIONS. SEE REPORT FOR RESULTS. PATIENT BATHED, ROTATED Q2HRS, ROUTINE ORAL CARE PREFORMED.
[2022-04-29] MEDS: Atorvastatin Calcium 40 MG TABLET 80 MG PO (20:32)
[2022-04-29] MEDS: 0.9 % Sodium Chloride 1,000 ML 100 ML IVCONT (23:10)
[2022-04-29] MEDS: Enoxaparin Sodium 60 MG/0.6 ML SYRINGE SUBCUT (23:10)
[2022-04-29 23:25] LABS: Glucose, Whole Blood 143 mg/dL (60-115)
[2022-04-30] VITALS (34 sets, daily range): BP systolic 90–150; BP diastolic 37–86; PULSE 67–105; RESP 15–23; TEMP 34.7–37.6; O2SAT 91–96; BMI 49.7
[2022-04-30] MEDS: Lactulose 20 GM/30 ML SOLUTION PO (00:02)
[2022-04-30] MEDS: Ipratropium Bromide 0.5 MG/2.5 ML SOLUTION INHALE ×5 (00:21→23:25)
[2022-04-30] MEDS: Albuterol Sulfate (0.083%) 2.5 MG/3 ML VIAL.NEB INHALE ×5 (00:21→23:25)
[2022-04-30] MEDS: propofoL 1,000 MG/100 ML VIAL 19.81 MG IVCONT ×2 (00:29→05:27)
[2022-04-30] MEDS: vancomycin HCL 1,000 MG in 0.9 % Sodium Chloride 250 ML 270 MG IV (01:15)
[2022-04-30] MEDS: Midazolam HCl/NS 50 MG/50 ML PLAST..BAG IVCONT (04:01)
[2022-04-30] MEDS: Norepinephrine Bitartrate/D5W 8 MG/250 ML PLAST..BAG 9.29 MG IV (04:06)
[2022-04-30 04:58] LABS: VBG Base Excess 9.7 mmol/L; VBG HCO3 33 mmol/L (22-26); VBG pCO2 40 mmHg; VBG pH 7.52 (7.32-7.43); VBG pO2 57 mmHg
[2022-04-30 05:11] LABS: Basophils Percent Auto 0.2 % (0-2); Eosinophils Absolute Auto 0.8 X10*3/uL (0.0-0.4); Eosinophils Percent Auto 3.9 % (0-4); Hematocrit 34.8 % (37.0-47.0); Hemoglobin 11.4 g/dl (12.0-16.0); Imm Gran Abs Auto 0.55 X10*3/uL (0.00-0.03); Imm Gran Pct Auto 2.8 % (0.0-0.4); Lymphocytes Absolute Auto 6.9 X10*3/uL (1.2-4.9); Lymphocytes Percent Auto 35.4 % (20-40); MANUAL DIFF FLAG SCAN; Mean Corpuscular HGB Conc 32.8 g/dl (31.0-35.0); Mean Corpuscular Hemoglobin 27.9 pg (27.0-33.0); Mean Corpuscular Volume 85.3 fL (80.0-98.0); Mean Platelet Volume 11.1 fL (9.4-12.3); Monocytes Absolute Auto 1.2 X10*3/uL (0.1-1.2); Monocytes Percent Auto 6.1 % (2-11); NRBC Pct Auto 0.2 /100WBC (0.0-0.2); Neutrophils Absolute Auto 10.1 x10*3/uL (2.0-8.3); Neutrophils Percent Auto 51.6 % (45-73); Platelet Count 403 X10*3/uL (160-400); Red Blood Count 4.08 X10*6/uL (4.20-5.50); Red Cell Distribution Width 14.3 % (11.0-16.0); SCAN SMEAR FLAG 1; White Blood Count 19.5 X10*3/uL (4.8-10.8)
[2022-04-30] MEDS: fentaNYL citrate/NS 1,000 MCG/100 ML PLAST..BAG 12.5 MCG IVCONT (05:26)
[2022-04-30 05:31] LABS: Albumin Level 3.2 g/dL (3.5-5.0); Anion Gap 13 (12-20); Blood Urea Nitrogen 20 mg/dL (9-16); Calcium 8.6 mg/dL (8.4-10.2); Carbon Dioxide 29 mmol/L (22-29); Chloride 99 mmol/L (96-108); Creatinine Clr Calc Pharmacy 118.2; Estimated Glomerular Filt Rate > 60; Glucose Random 171 mg/dL (60-115); Magnesium 1.8 mg/dL (1.6-2.6); Phosphorus 3.7 mg/dL (2.7-4.5); Potassium 4.4 mmol/L (3.3-5.1); Sodium 137 mmol/L (135-145)
[2022-04-30 05:37] LABS: SLIDE REVIEW VERIFIED
[2022-04-30 05:38] LABS: Venous Blood Gas Refer to POC result
[2022-04-30 05:39] LABS: Glucose, Whole Blood 159 mg/dL (60-115)
[2022-04-30] MEDS: Insulin Lispro 100 UNIT/ML 3 ML VIAL SUBCUT ×3 (06:00→18:06)
[2022-04-30] MEDS: Chlorhexidine Gluc Oral Rinse 15 ML MOUTHWASH BUCCAL ×3 (07:34→22:09)
[2022-04-30] MEDS: 0.9 % Sodium Chloride Flush 3 ML SYRINGE IVFLUSH ×2 (08:37→16:42)
--- NOTE | 2022-04-30 10:02 | MHC.CLN ---
F/U PT REMAINS INTUBATED PT RECEIVING PROMOTE AT GOAL SEDATION VACATION AT THIS TIME PT TOLERATING PROMOTE AT MAX GOAL RATE 30ML/HR WITH 120ML FREE WATER FLUSHES Q 8 HOURS PROVIDES 720KCALS, 45G PROTEIN, 964ML TOTAL FREE WATER FROM FORMULA AND FLUSHES COMBINED CONTINUE TO MONITOR TOLERANCE, RESIDUALS AND LYTES
[2022-04-30] MEDS: Insulin Glargine,Hum.rec.anlog 100 UNIT/ML 10 ML VIAL 20 UNIT SUBCUT (10:05)
[2022-04-30] MEDS: Famotidine/PF 20 MG/2 ML VIAL 40 MG IVPUSH (10:06)
[2022-04-30] MEDS: predniSONE 10 MG TABLET 35 MG PO (10:06)
[2022-04-30] MEDS: Thiamine HCL 100 MG in 0.9 % Sodium Chloride 100 ML 202 MG IV ×2 (11:05→22:10)
[2022-04-30] MEDS: 0.9 % Sodium Chloride 1,000 ML 50 ML IVCONT (11:05)
[2022-04-30] MEDS: bisacodyL 10 MG SUPP.RECT PR (11:05)
[2022-04-30 11:28] LABS: Vancomycin Random 7.9 mcg/mL (15-20)
--- NOTE | 2022-04-30 11:46 | HE.PHANOTE ---
RE VANCO TROUGH WAS 7.9. I SUSPECT THAT IS BECAUSE SCHEDULED DOSING WAS 30 HOURS AFTER LOAD. WILL INCREASE TO 1250 Q12H YIELDING A SUSPECTED AUC OF 567, TROUGH OF 16 TO GET PATIENT THERAPUETIC AND THEN CAN READJUST SUNDEEP
[2022-04-30 12:06] LABS: Glucose, Whole Blood 154 mg/dL (60-115)
[2022-04-30] MEDS: Caspofungin Acetate 50 MG in 0.9 % Sodium Chloride 250 ML 250 MG IV (13:51)
[2022-04-30] MEDS: vancomycin HCL 1,250 MG in 0.9 % Sodium Chloride 250 ML 166.67 MG IV (13:51)
--- NOTE | 2022-04-30 14:55 | MHC.CM.PN ---
Pt continues on ventilatory care in the ICU: she is making slow clinical progress and goals of care will focus on reducing sedation. CM to follow
--- NOTE | 2022-04-30 15:03 | P.PNCC_ITS ---
Subjective Subjective Date of Service: 04/30/22 Interval History: 41-year-old morbidly obese female with background of chronic asthma/COPD presented with acute hypoxemic respiratory failure from COVID-19 pneumonitis bilaterally treated here with steroids and baricitinib and follow-up CT scan revealed that the initial ground-glass infiltrates seem to have improved FiO2 has been weaned down to approximately 40% but while we have a bi basilar consolidations and growing staph look coccus as well as Lucretia so she is on vancomycin and caspofungin and at this point all sedation including fentanyl Versed and propofol of been stopped we have p.r.n. drip of dexmedetomidine so hopefully she will have control behavior so that we could gauge her ability to wean from the ventilator but thus far there is no sign of cognitive function yet returning but the good news is we have been afebrile for grew for more than 24 hours now at this point Critical Care Time (minutes): 45 Physical Exam Vital Signs: Vital Signs: Last Vital Signs Temp 99.7 F 04/30/22 14:00 Pulse 87 04/30/22 14:00 Resp 17 04/30/22 14:00 BP 109/65 04/30/22 14:00 Pulse Ox 94 04/30/22 14:00 O2 Del Method 04/30/22 14:00 O2 Flow Rate 100 04/23/22 14:00 FiO2 50 04/30/22 14:00 BMI result Body Mass Index 49.7 She has low minutes ventilatory requirements she has a stable end-tidal CO2 in the mid to high 30s and is able to move all 4 extremities Cardiac exam essentially normal by bedside echo Chest without adventitious sounds no prolongation of the expiratory time Abdomen obese but the soft with no organomegaly Skin intact Objective Data Labs 04/30/22 04:50 04/30/22 04:50 Labs: Laboratory Results - last 24 hr 04/29/22 04/29/22 04/29/22 13:25 17:40 23:14 WBC RBC Hgb Hct MCV MCH MCHC RDW Plt Count MPV Immature Gran % (Auto) Neut % (Auto) Lymph % (Auto) [place] % (Auto) Eos % (Auto) Baso % (Auto) Lymph # (Auto) [place] # (Auto) Eos # (Auto) Baso # (Auto) Abs Immat Gran (auto) Absolute Neuts (auto) Absolute Nucleated RBC Nucleated RBC % (auto) Smear Tech's Comments VBG pH VBG pCO2 VBG pO2 VBG HCO3 VBG O2 Saturation VBG Base Excess Sodium Potassium Chloride Carbon Dioxide Anion Gap BUN Creatinine Estim Creat Clear Calc Estimated GFR POC Glucose 192 H 143 H Random Glucose Calcium Phosphorus Magnesium Albumin Ur Random Sodium 85.0 Ur Random Chloride 55.0 Random Vancomycin 04/30/22 04/30/22 04/30/22 04:50 04:50 04:52 WBC 19.5 H RBC 4.08 L Hgb 11.4 L Hct 34.8 L MCV 85.3 MCH 27.9 MCHC 32.8 RDW 14.3 Plt Count 403 H MPV 11.1 Immature Gran % (Auto) 2.8 H Neut % (Auto) 51.6 Lymph % (Auto) 35.4 [place] % (Auto) 6.1 Eos % (Auto) 3.9 Baso % (Auto) 0.2 Lymph # (Auto) 6.9 H [place] # (Auto) 1.2 Eos # (Auto) 0.8 H Baso # (Auto) 0.0 Abs Immat Gran (auto) 0.55 H Absolute Neuts (auto) 10.1 H Absolute Nucleated RBC 0.040 H Nucleated RBC % (auto) 0.2 Smear Tech's Comments VERIFIED VBG pH 7.52 H VBG pCO2 40 VBG pO2 57 VBG HCO3 33 H VBG O2 Saturation 84.0 VBG Base Excess 9.7 Sodium 137 Potassium 4.4 Chloride 99 Carbon Dioxide 29 Anion Gap 13 BUN 20 H Creatinine 0.72 Estim Creat Clear Calc 118.2 Estimated GFR > 60 POC Glucose Random Glucose 171 H Calcium 8.6 D Phosphorus 3.7 Magnesium 1.8 Albumin 3.2 L Ur Random Sodium Ur Random Chloride Random Vancomycin 04/30/22 04/30/22 04/30/22 05:32 10:57 12:02 WBC RBC Hgb Hct MCV MCH MCHC RDW Plt Count MPV Immature Gran % (Auto) Neut % (Auto) Lymph % (Auto) [place] % (Auto) Eos % (Auto) Baso % (Auto) Lymph # (Auto) [place] # (Auto) Eos # (Auto) Baso # (Auto) Abs Immat Gran (auto) Absolute Neuts (auto) Absolute Nucleated RBC Nucleated RBC % (auto) Smear Tech's Comments VBG pH VBG pCO2 VBG pO2 VBG HCO3 VBG O2 Saturation VBG Base Excess Sodium Potassium Chloride Carbon Dioxide Anion Gap BUN Creatinine Estim Creat Clear Calc Estimated GFR POC Glucose 159 H 154 H Random Glucose Calcium Phosphorus Magnesium Albumin Ur Random Sodium Ur Random Chloride Random Vancomycin 7.9 L Microbiology Microbiology Results: Microbiology 04/28/22 08:11 Sputum - Suctioned Gram Stain - Final 04/28/22 08:11 Sputum - Suctioned Sputum Culture - Final Staphylococcus aureus 04/28/22 02:52 Blood - Venous Blood Culture - Preliminary No growth after 48 hours. 04/28/22 02:52 Blood - Venous Blood Culture - Preliminary No growth after 48 hours. 04/22/22 22:00 Blood - Venous Blood Culture - Final No growth after 5 days. 04/22/22 21:29 Blood - Venous Blood Culture - Final No growth after 5 days. Progress Note: A&P Assessment and plan (1) Acute cor pulmonale: Status: Acute (2) Acute respiratory failure with hypoxia: Status: Acute (3) Pneumonia due to COVID-19 virus: Status: Acute (4) COVID-19: Status: Acute (5) Respiratory failure: Status: Acute (6) Asthma: Status: Acute (7) Cellulitis: Status: Acute (8) History of : Status: Acute (9) Sinus infection: Status: Acute (10) Migraine: Status: Acute (11) H. pylori infection: Status: Acute (12) Disc herniation: Status: Acute (13) Depression: Status: Acute Plan Plan is to await the resolution of this drug-induced encephalopathy and hopefully be able to create a comfortable situation with dexmedetomidine as we progress through the weaning process Quality Stroke Does the patient have a stroke diagnosis?: No VTE Prior VTE?: No VTE Risk Level:: Medical - moderate - high VTE Device Contraindication: Treatment Not Indicated VTE Drug Contraindication: N/A - Med Ordered
--- NOTE | 2022-04-30 17:38 | PC.NURSE ---
PATIENT ASSESSED PRIOR TO SEDATION VACATION. PATIENT NOTED TO BE IN A DEEP SEDATION WITH RASS -4. SEE 0800 ASSESSMENT FOR COMPLETE FINDINGS. SEDATION VACATION STARTED AT 0726 PER MD REQUEST, SEE EMAR. PATIENT HANDLED SEDATION VACATION WELL WITH NO COMPLICATIONS OVER SHIFT. PATIENT CURRENTLY REMAINING ON SEDATION VACATION. PATIENT RASS CHANGING FROM -4 TO -2, WITH EYES STAYING OPEN TO VERBAL STIMULI, PATIENT UNABLE TO FOLLOW COMMANDS OR ACKNOWLEDGE UNDERSTANDING. MUCOUS SOUNDS NOTED TO RIGHT LUNG AT END OF EXPIRATION. SMALL AMOUNTS OF THICK CREAM, YELLOW SECRETIONS SUCTION INLINE. VENT SETTING CHANGED FROM AC TO PC SETTING AT 1040. RATE 16, PRESSURE CONTROL 30, FIO2 50%, PEEP 5. SEE VENT SETTING. PATIENT HANDLED VENT WITH SOME DISCOMFORT AND COUGHING. MODERATE AMOUNT OF INLINE AND ORAL SUCTIONING REQUIRED THROUGHOUT DAY. 10 MG DULCOLAX SUPPOSITORY GIVEN DUE TO LACK OF BM. SEE EMAR. NO BOWEL MOVEMENT SINCE ADMINISTRATION. PATIENT ROTATED Q2HR, BATHED, SKIN CARE PREFORMED, ROUTINE ORAL CARE PREFORMED, PATIENT AND UPDATED ON HEALTH STATUS.
[2022-04-30 17:57] LABS: Glucose, Whole Blood 184 mg/dL (60-115)
[2022-04-30] MEDS: Famotidine/PF 20 MG/2 ML VIAL IVPUSH (22:09)
[2022-04-30] MEDS: Enoxaparin Sodium 60 MG/0.6 ML SYRINGE SUBCUT (22:10)
[2022-04-30 23:43] LABS: Glucose, Whole Blood 106 mg/dL (60-115)
[2022-05-01] VITALS (32 sets, daily range): BP systolic 91–149; BP diastolic 51–99; PULSE 69–110; RESP 10–38; TEMP 35–38.3; O2SAT 90–96; BMI 50.0
[2022-05-01] MEDS: vancomycin HCL 1,250 MG in 0.9 % Sodium Chloride 250 ML 166.67 MG IV (00:24)
[2022-05-01] MEDS: Albuterol Sulfate (0.083%) 2.5 MG/3 ML VIAL.NEB INHALE ×4 (03:31→23:38)
[2022-05-01] MEDS: Ipratropium Bromide 0.5 MG/2.5 ML SOLUTION INHALE ×2 (03:31→11:25)
[2022-05-01] MEDS: Norepinephrine Bitartrate/D5W 8 MG/250 ML PLAST..BAG 4.64 MG IV (05:15)
[2022-05-01 05:32] LABS: Basophils Percent Auto 0.2 % (0-2); Eosinophils Absolute Auto 0.7 X10*3/uL (0.0-0.4); Eosinophils Percent Auto 2.8 % (0-4); Hematocrit 35.5 % (37.0-47.0); Hemoglobin 11.4 g/dl (12.0-16.0); Imm Gran Abs Auto 0.73 X10*3/uL (0.00-0.03); Imm Gran Pct Auto 2.9 % (0.0-0.4); Lymphocytes Absolute Auto 4.1 X10*3/uL (1.2-4.9); Lymphocytes Percent Auto 16.5 % (20-40); MANUAL DIFF FLAG SCAN; Mean Corpuscular HGB Conc 32.1 g/dl (31.0-35.0); Mean Corpuscular Hemoglobin 27.7 pg (27.0-33.0); Mean Corpuscular Volume 86.4 fL (80.0-98.0); Mean Platelet Volume 11.2 fL (9.4-12.3); Monocytes Absolute Auto 1.7 X10*3/uL (0.1-1.2); Monocytes Percent Auto 6.6 % (2-11); Neutrophils Absolute Auto 17.7 x10*3/uL (2.0-8.3); Platelet Count 447 X10*3/uL (160-400); Red Blood Count 4.11 X10*6/uL (4.20-5.50); Red Cell Distribution Width 14.7 % (11.0-16.0); SCAN SMEAR FLAG 1
[2022-05-01 05:35] LABS: VBG Base Excess 8.1 mmol/L; VBG HCO3 31 mmol/L (22-26); VBG pCO2 40 mmHg; VBG pO2 47 mmHg
[2022-05-01 05:36] LABS: Venous Blood Gas Refer to POC result
[2022-05-01 05:48] LABS: Albumin Level 3.3 g/dL (3.5-5.0); Anion Gap 15 (12-20); Blood Urea Nitrogen 19 mg/dL (9-16); Calcium 8.8 mg/dL (8.4-10.2); Carbon Dioxide 29 mmol/L (22-29); Chloride 97 mmol/L (96-108); Creatinine Clr Calc Pharmacy 130.8; Estimated Glomerular Filt Rate > 60; Glucose Random 163 mg/dL (60-115); Magnesium 1.8 mg/dL (1.6-2.6); Phosphorus 2.7 mg/dL (2.7-4.5); Potassium 4.3 mmol/L (3.3-5.1); Sodium 137 mmol/L (135-145)
[2022-05-01 05:52] LABS: SLIDE REVIEW VERIFIED
[2022-05-01 06:03] LABS: Glucose, Whole Blood 146 mg/dL (60-115)
--- NOTE | 2022-05-01 06:16 | PC.NURSE ---
assumed care at 1900, remains on sedation vacation, vent PC / 50% rate 16, pt opens eyes to stimuli but does not track or follow commands postive cough and gag, sr/st on tele, CVP 11, bp stable on levo, urine output good appx 75-100ml/hr, no bm this shift, turn and repo q2h,
[2022-05-01] MEDS: dexmedeTOMIDidine HCL/NS 400 MCG/100 ML INFUS..BTL 28.9 MCG IVCONT ×4 (06:50→20:52)
[2022-05-01] MEDS: 0.9 % Sodium Chloride Flush 3 ML SYRINGE IVFLUSH ×2 (07:03→14:39)
[2022-05-01] MEDS: dexmedeTOMIDidine HCL/NS 400 MCG/100 ML INFUS..BTL 40.46 MCG IVCONT (08:57)
[2022-05-01] MEDS: predniSONE 10 MG TABLET 30 MG PO (08:57)
[2022-05-01] MEDS: Chlorhexidine Gluc Oral Rinse 15 ML MOUTHWASH BUCCAL ×3 (08:57→20:52)
[2022-05-01] MEDS: Insulin Glargine,Hum.rec.anlog 100 UNIT/ML 10 ML VIAL 20 UNIT SUBCUT (08:57)
[2022-05-01] MEDS: Doxycycline Hyclate 100 MG in 0.9 % Sodium Chloride 250 ML 166.67 MG IV ×2 (08:58→20:52)
[2022-05-01] MEDS: Famotidine/PF 20 MG/2 ML VIAL IVPUSH (08:58)
[2022-05-01] MEDS: Nystatin Powder 15 GM BOTTLE 1 APPL TOPICAL ×2 (08:59→20:54)
[2022-05-01] MEDS: Thiamine HCL 100 MG in 0.9 % Sodium Chloride 100 ML 202 MG IV ×2 (10:03→21:58)
[2022-05-01] MEDS: dexmedeTOMIDidine HCL/NS 400 MCG/100 ML INFUS..BTL 34.68 MCG IVCONT (11:17)
[2022-05-01] MEDS: Insulin Lispro 100 UNIT/ML 3 ML VIAL SUBCUT ×2 (11:17→17:35)
[2022-05-01 11:26] LABS: Glucose, Whole Blood 194 mg/dL (60-115)
[2022-05-01 12:00] LABS: Vancomycin Random 7.5 mcg/mL (15-20)
[2022-05-01 12:08] LABS: Glucose, Whole Blood 189 mg/dL (60-115)
[2022-05-01] MEDS: Acetaminophen 325 MG TABLET PO (12:13)
--- NOTE | 2022-05-01 16:59 | P.PNCC_ITS ---
Subjective Subjective Date of Service: 05/01/22 Interval History: 41-year-old morbidly obese female who presented initially with COVID-19 bilateral pneumonitis resulting in hypoxic respiratory failure and failed on noninvasive ventilation and came to intubation and it has been over a week at this point but she had been placed on high-dose steroids which I have been weaning because of her behavior which is a displayed an agitated delirium and and baricitinib We got to a point with the FiO2 was 40% and we were going to try a sedation vacation and all of a sudden FiO2 requirement started to climb [id number] and then ultimately 70% at [address] scan instead of showing the diffuse bilateral ground-glass infiltrates which seem to have resolved now had 2 lower lobe areas of consolidation and with a newly elevated white count sputums were sent and it appears that she is growing a methicillin sensitive Staph aureus and I do believe also a candidal growth as well and the previous vancomycin was then switched over to doxycycline and I have restarted the caspofungin and repeat x- ray from today really appear fairly clear there is no apparent infiltrates on it it is certainly much improved over the original picture dominated by the COVID infection This is a background history of asthma and initially when in when attempting to to wean if she developed marked tachypnea and a at a very obstructive picture especially not just clinically with with very prolonged diaphragmatic effort and expiratory time but also in the end-tidal CO2 curve which was a steeply rising curve and so we waited a short while and now we have developed but may look like an early secondary bacterial infection Following her CVP initially we diuresed with a Lasix drip and then ultimately Lasix and metolazone together and then she started to diurese on her own which was an indicator of resolving COVID and she had rid of almost the entire 8-10 L veno positive Initial CVP was in the high teens with a significant component of acute cor pulmonale and we have now settled down to about the CVP of 9 and she appears to be clinically euvolemic no longer has that marked distension of the inferior vena cava Critical Care Time (minutes): 45 Physical Exam Vital Signs: Vital Signs: Last Vital Signs Temp 100.4 F 05/01/22 16:00 Pulse 77 05/01/22 16:00 Resp 21 H 05/01/22 16:00 BP 113/71 05/01/22 16:00 Pulse Ox 95 05/01/22 16:00 O2 Del Method 05/01/22 16:00 O2 Flow Rate 100 04/23/22 14:00 FiO2 50 05/01/22 16:00 BMI result Body Mass Index 50.0 She does not awaken with cognitive function she gets highly agitated will stare and the even potentially follow but never maintains an eye contact and certainly will not answer any questions Abdomen is obese and had a large volume of stool but we have been pouring in lactulose and Dulcolax etc. until she finally began to empty no organomegaly Lungs without adventitious sounds still has a 7.5 L minute ventilation but FiO2 has now since been weaned down to 50% and we are maintaining sats 93-94 and on trivial dose of Levophed pressure 107/60 Objective Data Labs 05/01/22 05:15 05/01/22 05:15 Labs: Laboratory Results - last 24 hr 04/30/22 04/30/22 05/01/22 17:42 23:32 05:15 WBC 25.0 H RBC 4.11 L Hgb 11.4 L Hct 35.5 L MCV 86.4 MCH 27.7 MCHC 32.1 RDW 14.7 Plt Count 447 H MPV 11.2 Immature Gran % (Auto) 2.9 H Neut % (Auto) 71.0 Lymph % (Auto) 16.5 L [place] % (Auto) 6.6 Eos % (Auto) 2.8 Baso % (Auto) 0.2 Lymph # (Auto) 4.1 [place] # (Auto) 1.7 H Eos # (Auto) 0.7 H Baso # (Auto) 0.0 Abs Immat Gran (auto) 0.73 H Absolute Neuts (auto) 17.7 H Absolute Nucleated RBC 0.000 Nucleated RBC % (auto) 0.0 Smear Tech's Comments VERIFIED VBG pH VBG pCO2 VBG pO2 VBG HCO3 VBG O2 Saturation VBG Base Excess Sodium Potassium Chloride Carbon Dioxide Anion Gap BUN Creatinine Estim Creat Clear Calc Estimated GFR POC Glucose 184 H 106 Random Glucose Calcium Phosphorus Magnesium Albumin Random Vancomycin 05/01/22 05/01/22 05/01/22 05:15 05:28 05:58 WBC RBC Hgb Hct MCV MCH MCHC RDW Plt Count MPV Immature Gran % (Auto) Neut % (Auto) Lymph % (Auto) [place] % (Auto) Eos % (Auto) Baso % (Auto) Lymph # (Auto) [place] # (Auto) Eos # (Auto) Baso # (Auto) Abs Immat Gran (auto) Absolute Neuts (auto) Absolute Nucleated RBC Nucleated RBC % (auto) Smear Tech's Comments VBG pH 7.50 H VBG pCO2 40 VBG pO2 47 VBG HCO3 31 H VBG O2 Saturation 78.0 VBG Base Excess 8.1 Sodium 137 Potassium 4.3 Chloride 97 Carbon Dioxide 29 Anion Gap 15 BUN 19 H Creatinine 0.65 Estim Creat Clear Calc 130.8 Estimated GFR > 60 POC Glucose 146 H Random Glucose 163 H Calcium 8.8 Phosphorus 2.7 Magnesium 1.8 Albumin 3.3 L Random Vancomycin 05/01/22 05/01/22 05/01/22 11:06 11:19 12:04 WBC RBC Hgb Hct MCV MCH MCHC RDW Plt Count MPV Immature Gran % (Auto) Neut % (Auto) Lymph % (Auto) [place] % (Auto) Eos % (Auto) Baso % (Auto) Lymph # (Auto) [place] # (Auto) Eos # (Auto) Baso # (Auto) Abs Immat Gran (auto) Absolute Neuts (auto) Absolute Nucleated RBC Nucleated RBC % (auto) Smear Tech's Comments VBG pH VBG pCO2 VBG pO2 VBG HCO3 VBG O2 Saturation VBG Base Excess Sodium Potassium Chloride Carbon Dioxide Anion Gap BUN Creatinine Estim Creat Clear Calc Estimated GFR POC Glucose 194 H 189 H Random Glucose Calcium Phosphorus Magnesium Albumin Random Vancomycin 7.5 L Microbiology Microbiology Results: Microbiology 04/28/22 08:11 Sputum - Suctioned Gram Stain - Final 04/28/22 08:11 Sputum - Suctioned Sputum Culture - Final Staphylococcus aureus 04/28/22 02:52 Blood - Venous Blood Culture - Preliminary No growth after 48 hours. 04/28/22 02:52 Blood - Venous Blood Culture - Preliminary No growth after 48 hours. 04/22/22 22:00 Blood - Venous Blood Culture - Final No growth after 5 days. 04/22/22 21:29 Blood - Venous Blood Culture - Final No growth after 5 days. Progress Note: A&P Assessment and plan (1) Acute cor pulmonale: Status: Acute (2) Acute respiratory failure with hypoxia: Status: Acute (3) Pneumonia due to COVID-19 virus: Status: Acute (4) COVID-19: Status: Acute (5) Respiratory failure: Status: Acute (6) Asthma: Status: Acute (7) Cellulitis: Status: Acute (8) History of : Status: Acute (9) Sinus infection: Status: Acute (10) Migraine: Status: Acute (11) H. pylori infection: Status: Acute (12) Disc herniation: Status: Acute (13) Depression: Status: Acute Plan So at this point I am going to treat with the doxycycline to cover the Staph that is growing and and probably reintroduced caspofungin because of the comb ined immune suppression and at this point after at least 7 days of baricitinib I think I will eliminate that and continue to wean steroids and will monitor the CVP in her intake and output and diurese as needed Quality Stroke Does the patient have a stroke diagnosis?: No VTE Prior VTE?: No VTE Risk Level:: Medical - moderate - high VTE Device Contraindication: Treatment Not Indicated VTE Drug Contraindication: N/A - Med Ordered
[2022-05-01 17:30] LABS: Glucose, Whole Blood 174 mg/dL (60-115)
--- NOTE | 2022-05-01 18:13 | PC.NURSE ---
Assumed care at 0700. Patient agitated, off sedation since day prior. Started on precedex gtt for RASS +2. Temp 100.9 - MD notified and PRN Tylenol ordered and administered. HR down twice to high 30's briefly while bucking vent. Levophed gtt titrated off and MAP maintaining >65. ETT @ 20cm - MD notified and ETT advanced by RT to 23 cm - CXR ordered completed. Contined on PC setting rate 16 24/5 50%. Fio2 maintaining >90%. LS dim throughout, scan amount of thick creamy inline secretions. Abdomen soft, positive bowel sounds. Patient had one liquid mucusy BM at start of shift. Tube feeds residuals maintaining >350cc - MD notified - tube feeds continued on hold and no new orders at this time. Babcock patient, draining concentrated urine approx 15-40cc/hr. Skin warm, dry, patient bathed, prevlon system and air loss bed in place, patient repositioned q2hr. Patient at bedside and updated by this RN.
[2022-05-01] MEDS: fentaNYL citrate/PF 100 MCG/2 ML VIAL 50 MCG IVPUSH (19:35)
[2022-05-01] MEDS: Enoxaparin Sodium 60 MG/0.6 ML SYRINGE SUBCUT (21:58)
[2022-05-02] VITALS (31 sets, daily range): BP systolic 107–137; BP diastolic 45–93; PULSE 64–91; RESP 15–30; TEMP 35–37.9; O2SAT 90–99; BMI 49.9
--- NOTE | 2022-05-02 | ECG_ITS ---
Test Reason : Chest Pain Blood Pressure : / mmHG Vent. Rate : 069 BPM Atrial Rate : 069 BPM P-R Int : 126 ms QRS Dur : 082 ms QT Int : 384 ms P-R-T Axes : 038 047 026 degrees QTc Int : 411 ms Normal sinus rhythm Normal ECG When compared with ECG of 22-APR-2022 22:11, Vent. rate has decreased BY 53 BPM T wave amplitude has increased in Lateral leads Referred By: Reena Diaz Electronically Signed By:Augustin Fried
[2022-05-02] MEDS: dexmedeTOMIDidine HCL/NS 400 MCG/100 ML INFUS..BTL 34.68 MCG IVCONT (00:02)
[2022-05-02 00:08] LABS: Glucose, Whole Blood 121 mg/dL (60-115)
[2022-05-02] MEDS: fentaNYL citrate/PF 100 MCG/2 ML VIAL 50 MCG IVPUSH ×3 (01:47→04:59)
[2022-05-02] MEDS: dexmedeTOMIDidine HCL/NS 400 MCG/100 ML INFUS..BTL 43.35 MCG IVCONT ×5 (02:35→10:51)
[2022-05-02] MEDS: Albuterol Sulfate (0.083%) 2.5 MG/3 ML VIAL.NEB INHALE ×4 (04:12→22:56)
[2022-05-02] MEDS: Midazolam HCl/PF 2 MG/2 ML VIAL 3 MG IVPUSH (04:16)
[2022-05-02] MEDS: Rocuronium Bromide 50 MG/5 ML VIAL IVPUSH (04:16)
[2022-05-02 04:48] LABS: VBG Base Excess 5.3 mmol/L; VBG HCO3 29 mmol/L (22-26); VBG pCO2 39 mmHg; VBG pH 7.47 (7.32-7.43); VBG pO2 52 mmHg
[2022-05-02 04:55] LABS: MANUAL DIFF FLAG NO
[2022-05-02 05:01] LABS: Basophils Absolute Auto 0.1 X10*3/uL (0.0-0.2); Basophils Percent Auto 0.2 % (0-2); Eosinophils Absolute Auto 0.8 X10*3/uL (0.0-0.4); Hematocrit 35.7 % (37.0-47.0); Hemoglobin 11.6 g/dl (12.0-16.0); Imm Gran Abs Auto 0.77 X10*3/uL (0.00-0.03); Imm Gran Pct Auto 2.9 % (0.0-0.4); Lymphocytes Absolute Auto 4.4 X10*3/uL (1.2-4.9); Lymphocytes Percent Auto 16.8 % (20-40); Mean Corpuscular HGB Conc 32.5 g/dl (31.0-35.0); Mean Corpuscular Hemoglobin 27.7 pg (27.0-33.0); Mean Corpuscular Volume 85.2 fL (80.0-98.0); Mean Platelet Volume 10.7 fL (9.4-12.3); Monocytes Absolute Auto 1.4 X10*3/uL (0.1-1.2); Monocytes Percent Auto 5.2 % (2-11); Neutrophils Absolute Auto 18.9 x10*3/uL (2.0-8.3); Neutrophils Percent Auto 71.9 % (45-73); Platelet Count 449 X10*3/uL (160-400); Red Blood Count 4.19 X10*6/uL (4.20-5.50); Red Cell Distribution Width 14.6 % (11.0-16.0); White Blood Count 26.3 X10*3/uL (4.8-10.8)
[2022-05-02 05:35] LABS: Albumin Level 3.4 g/dL (3.5-5.0); Anion Gap 16 (12-20); Blood Urea Nitrogen 18 mg/dL (9-16); Calcium 8.9 mg/dL (8.4-10.2); Carbon Dioxide 28 mmol/L (22-29); Chloride 98 mmol/L (96-108); Creatinine Clr Calc Pharmacy 135.5; Estimated Glomerular Filt Rate > 60; Glucose Random 134 mg/dL (60-115); Magnesium 1.9 mg/dL (1.6-2.6); Phosphorus 3.1 mg/dL (2.7-4.5); Potassium 4.2 mmol/L (3.3-5.1); Sodium 138 mmol/L (135-145)
--- NOTE | 2022-05-02 05:41 | PC.NURSE ---
assumed care at 1900 pt on precedex drip, opens eyes with to stimuli pt HR ludwig down to 20s with repositioning and coughing, also having low tidal volumes, fentynal 50mg x4, ET tube at 22Cm was at 23 at start of shift, md made aware CXR done Rt at bedside to advance tube to 23cm. pt switched to AV/VC +, given versed and batsheva, tidal Volumes improved. Tube feeds off, high residuals on previous shift, keep off per [place] [employer] DRAWING, Urine output >30cc per hour. bp stable, turn and repo q2 hours
[2022-05-02 05:48] LABS: Venous Blood Gas Refer to POC result
[2022-05-02 05:51] LABS: Glucose, Whole Blood 137 mg/dL (60-115)
[2022-05-02] MEDS: 0.9 % Sodium Chloride Flush 3 ML SYRINGE IVFLUSH ×3 (06:54→23:37)
[2022-05-02] MEDS: Chlorhexidine Gluc Oral Rinse 15 ML MOUTHWASH BUCCAL ×3 (08:05→20:37)
[2022-05-02] MEDS: Famotidine/PF 20 MG/2 ML VIAL IVPUSH (08:05)
[2022-05-02] MEDS: predniSONE 10 MG TABLET 30 MG PO (08:06)
[2022-05-02] MEDS: Doxycycline Hyclate 100 MG in 0.9 % Sodium Chloride 250 ML 166.67 MG IV ×2 (08:06→21:30)
[2022-05-02] MEDS: Ampicillin Sodium/Sulbactam Na 3 GM in 0.9 % Sodium Chloride 100 ML IV ×3 (08:06→20:36)
[2022-05-02] MEDS: Insulin Glargine,Hum.rec.anlog 100 UNIT/ML 10 ML VIAL 20 UNIT SUBCUT (08:06)
[2022-05-02] MEDS: Nystatin Powder 15 GM BOTTLE 1 APPL TOPICAL ×2 (08:13→20:37)
[2022-05-02] MEDS: Caspofungin Acetate 70 MG in 0.9 % Sodium Chloride 250 ML 250 MG IV (08:22)
[2022-05-02] MEDS: Thiamine HCL 100 MG in 0.9 % Sodium Chloride 100 ML 202 MG IV ×2 (09:56→23:34)
[2022-05-02 11:23] LABS: Glucose, Whole Blood 165 mg/dL (60-115)
[2022-05-02] MEDS: Insulin Lispro 100 UNIT/ML 3 ML VIAL SUBCUT ×2 (11:27→17:12)
[2022-05-02] MEDS: dexmedeTOMIDidine HCL/NS 400 MCG/100 ML INFUS..BTL 31.79 MCG IVCONT ×2 (13:11→20:27)
--- NOTE | 2022-05-02 15:14 | P.PNCC_ITS ---
Subjective Subjective Date of Service: 05/02/22 Interval History: 41-year-old over morbidly obese female with background history of asthma presented with him hypoxic respiratory failure from bilateral COVID-19 pneumonitis now clinically probably has secondary infection today's chest x-ray all reflected the increased FiO2 requirements and appear to demonstrate some new infiltrates as did the CT scan from yesterday none and on covering with caspofungin and doxycycline for the methicillin sensitive Staph aureus but I am going to add Unasyn to cover for other pathogens mostly intracellular given the combined immune suppression which I have also eliminated and and CVP today is running at about 8-9 best it has ever been so I think she is euvolemic Renal function is well preserved she finally did have a bowel movement today Critical Care Time (minutes): 45 Physical Exam Vital Signs: Vital Signs: Last Vital Signs Temp 99.5 F 05/02/22 15:00 Pulse 69 05/02/22 15:00 Resp 22 H 05/02/22 15:00 BP 107/60 05/02/22 15:00 Pulse Ox 93 05/02/22 15:00 O2 Del Method 05/02/22 15:00 O2 Flow Rate 100 04/23/22 14:00 FiO2 50 05/02/22 15:11 BMI result Body Mass Index 49.9 Again she highly agitated without real direct eye contact just lashes out with all 4 extremities I do not know how much of this is behavioral and how much of this is truly encephalopathic but were maintaining her on Precedex more completely allowing to withdrawal of the the Versed and the fentanyl of course and the propofol in in case some of them were contributing to her ongoing agitation and delirium Bedside echo demonstrating normal LV and RV function with no primary valve or pericardial disease Breathing quiet without accessory muscles and no prolongation of expiratory time Abdomen soft with no organomegaly Objective Data Labs 05/02/22 04:40 05/02/22 04:40 Labs: Laboratory Results - last 24 hr 05/01/22 05/01/22 05/02/22 17:19 23:55 04:40 WBC 26.3 H RBC 4.19 L Hgb 11.6 L Hct 35.7 L MCV 85.2 MCH 27.7 MCHC 32.5 RDW 14.6 Plt Count 449 H MPV 10.7 Immature Gran % (Auto) 2.9 H Neut % (Auto) 71.9 Lymph % (Auto) 16.8 L [place] % (Auto) 5.2 Eos % (Auto) 3.0 Baso % (Auto) 0.2 Lymph # (Auto) 4.4 [place] # (Auto) 1.4 H Eos # (Auto) 0.8 H Baso # (Auto) 0.1 Abs Immat Gran (auto) 0.77 H Absolute Neuts (auto) 18.9 H Absolute Nucleated RBC 0.000 Nucleated RBC % (auto) 0.0 VBG pH VBG pCO2 VBG pO2 VBG HCO3 VBG O2 Saturation VBG Base Excess Sodium Potassium Chloride Carbon Dioxide Anion Gap BUN Creatinine Estim Creat Clear Calc Estimated GFR POC Glucose 174 H 121 H Random Glucose Calcium Phosphorus Magnesium Albumin 05/02/22 05/02/22 05/02/22 04:40 04:42 05:47 WBC RBC Hgb Hct MCV MCH MCHC RDW Plt Count MPV Immature Gran % (Auto) Neut % (Auto) Lymph % (Auto) [place] % (Auto) Eos % (Auto) Baso % (Auto) Lymph # (Auto) [place] # (Auto) Eos # (Auto) Baso # (Auto) Abs Immat Gran (auto) Absolute Neuts (auto) Absolute Nucleated RBC Nucleated RBC % (auto) VBG pH 7.47 H VBG pCO2 39 VBG pO2 52 VBG HCO3 29 H VBG O2 Saturation 80.0 VBG Base Excess 5.3 Sodium 138 Potassium 4.2 Chloride 98 Carbon Dioxide 28 Anion Gap 16 BUN 18 H Creatinine 0.63 Estim Creat Clear Calc 135.5 Estimated GFR > 60 POC Glucose 137 H Random Glucose 134 H Calcium 8.9 Phosphorus 3.1 Magnesium 1.9 Albumin 3.4 L 05/02/22 11:17 WBC RBC Hgb Hct MCV MCH MCHC RDW Plt Count MPV Immature Gran % (Auto) Neut % (Auto) Lymph % (Auto) [place] % (Auto) Eos % (Auto) Baso % (Auto) Lymph # (Auto) [place] # (Auto) Eos # (Auto) Baso # (Auto) Abs Immat Gran (auto) Absolute Neuts (auto) Absolute Nucleated RBC Nucleated RBC % (auto) VBG pH VBG pCO2 VBG pO2 VBG HCO3 VBG O2 Saturation VBG Base Excess Sodium Potassium Chloride Carbon Dioxide Anion Gap BUN Creatinine Estim Creat Clear Calc Estimated GFR POC Glucose 165 H Random Glucose Calcium Phosphorus Magnesium Albumin Microbiology Microbiology Results: Microbiology 04/28/22 08:11 Sputum - Suctioned Gram Stain - Final 04/28/22 08:11 Sputum - Suctioned Sputum Culture - Final Staphylococcus aureus 04/28/22 02:52 Blood - Venous Blood Culture - Preliminary No growth after 48 hours. 04/28/22 02:52 Blood - Venous Blood Culture - Preliminary No growth after 48 hours. 04/22/22 22:00 Blood - Venous Blood Culture - Final No growth after 5 days. 04/22/22 21:29 Blood - Venous Blood Culture - Final No growth after 5 days. Progress Note: A&P Assessment and plan (1) Acute cor pulmonale: Status: Acute (2) Acute respiratory failure with hypoxia: Status: Acute (3) Pneumonia due to COVID-19 virus: Status: Acute (4) COVID-19: Status: Acute (5) Respiratory failure: Status: Acute (6) Asthma: Status: Acute (7) Cellulitis: Status: Acute (8) History of : Status: Acute (9) Sinus infection: Status: Acute (10) Migraine: Status: Acute (11) H. pylori infection: Status: Acute (12) Depression: Status: Acute (13) Disc herniation: Status: Acute Plan So the antibiotics will remain as above will try to as she allows continue to wean the FiO2 in member down into the 40s I think we can try again a sedation vacation and see how we fair her behavior may not allow a complete weaning pro cess but on on the Precedex I hope it will Quality Stroke Does the patient have a stroke diagnosis?: No VTE Prior VTE?: No VTE Risk Level:: Medical - moderate - high VTE Device Contraindication: Treatment Not Indicated VTE Drug Contraindication: N/A - Med Ordered
[2022-05-02] MEDS: dexmedeTOMIDidine HCL/NS 400 MCG/100 ML INFUS..BTL 26.01 MCG IVCONT (16:42)
[2022-05-02 17:17] LABS: Glucose, Whole Blood 153 mg/dL (60-115)
[2022-05-02] MEDS: Midazolam HCl/PF 2 MG/2 ML VIAL IVPUSH (19:50)
[2022-05-02 21:24] LABS: Venous Blood Gas Refer to POC result
[2022-05-02 21:25] LABS: VBG Base Excess 8.6 mmol/L; VBG HCO3 33 mmol/L (22-26); VBG pCO2 46 mmHg; VBG pH 7.46 (7.32-7.43); VBG pO2 50 mmHg
[2022-05-02 21:46] LABS: Troponin-I High Sensitivity < 3.5 ng/L (<3.5-17.0)
[2022-05-02] MEDS: Enoxaparin Sodium 60 MG/0.6 ML SYRINGE SUBCUT (23:35)
[2022-05-02] MEDS: dexmedeTOMIDidine HCL/NS 400 MCG/100 ML INFUS..BTL 37.57 MCG IVCONT (23:36)
[2022-05-03] VITALS (29 sets, daily range): BP systolic 109–146; BP diastolic 63–85; PULSE 62–99; RESP 16–28; TEMP 35–37.8; O2SAT 89–100; BMI 50.0
[2022-05-03 00:17] LABS: Glucose, Whole Blood 118 mg/dL (60-115)
[2022-05-03] MEDS: Ampicillin Sodium/Sulbactam Na 3 GM in 0.9 % Sodium Chloride 100 ML IV ×2 (01:59→10:16)
[2022-05-03] MEDS: dexmedeTOMIDidine HCL/NS 400 MCG/100 ML INFUS..BTL 37.57 MCG IVCONT ×2 (02:00→04:26)
[2022-05-03] MEDS: Albuterol Sulfate (0.083%) 2.5 MG/3 ML VIAL.NEB INHALE ×2 (04:50→11:35)
[2022-05-03 05:04] LABS: VBG Base Excess 5.6 mmol/L; VBG HCO3 29 mmol/L (22-26); VBG pCO2 38 mmHg; VBG pH 7.48 (7.32-7.43); VBG pO2 39 mmHg
[2022-05-03 05:16] LABS: MANUAL DIFF FLAG NO
[2022-05-03] MEDS: Midazolam HCl/PF 2 MG/2 ML VIAL IVPUSH ×2 (05:18)
[2022-05-03 05:21] LABS: Basophils Percent Auto 0.2 % (0-2); Eosinophils Absolute Auto 0.7 X10*3/uL (0.0-0.4); Eosinophils Percent Auto 3.1 % (0-4); Hematocrit 32.8 % (37.0-47.0); Hemoglobin 10.7 g/dl (12.0-16.0); Imm Gran Pct Auto 1.8 % (0.0-0.4); Lymphocytes Absolute Auto 3.5 X10*3/uL (1.2-4.9); Lymphocytes Percent Auto 15.1 % (20-40); Mean Corpuscular HGB Conc 32.6 g/dl (31.0-35.0); Mean Corpuscular Hemoglobin 28.3 pg (27.0-33.0); Mean Corpuscular Volume 86.8 fL (80.0-98.0); Monocytes Absolute Auto 1.2 X10*3/uL (0.1-1.2); Monocytes Percent Auto 5.3 % (2-11); Neutrophils Percent Auto 74.5 % (45-73); Platelet Count 479 X10*3/uL (160-400); Red Blood Count 3.78 X10*6/uL (4.20-5.50); Red Cell Distribution Width 14.6 % (11.0-16.0); White Blood Count 22.8 X10*3/uL (4.8-10.8)
[2022-05-03 05:40] LABS: Albumin Level 3.2 g/dL (3.5-5.0); Anion Gap 14 (12-20); Blood Urea Nitrogen 16 mg/dL (9-16); Calcium 8.7 mg/dL (8.4-10.2); Carbon Dioxide 28 mmol/L (22-29); Chloride 97 mmol/L (96-108); Estimated Glomerular Filt Rate > 60; Glucose Random 113 mg/dL (60-115); Magnesium 1.8 mg/dL (1.6-2.6); Phosphorus 3.3 mg/dL (2.7-4.5); Potassium 4.1 mmol/L (3.3-5.1); Sodium 135 mmol/L (135-145)
[2022-05-03 05:42] LABS: Troponin-I High Sensitivity < 3.5 ng/L (<3.5-17.0)
[2022-05-03] MEDS: dexmedeTOMIDidine HCL/NS 400 MCG/100 ML INFUS..BTL 43.35 MCG IVCONT ×3 (06:11→11:02)
[2022-05-03] MEDS: Midazolam HCl/PF 2 MG/2 ML VIAL 4 MG IVPUSH (06:37)
[2022-05-03] MEDS: 0.9 % Sodium Chloride Flush 3 ML SYRINGE IVFLUSH ×2 (08:53→15:45)
--- NOTE | 2022-05-03 09:43 | MHC.CM.PN ---
Pt continues to make progress : goals of care today include sedation cessation and vent weaning. CM to follow. Pt will need PT/OT evals once alert and verbal for guidance on next level of care.
[2022-05-03] MEDS: Nystatin Powder 15 GM BOTTLE 1 APPL TOPICAL ×2 (10:10→21:15)
[2022-05-03] MEDS: predniSONE 10 MG TABLET 30 MG PO (10:10)
--- NOTE | 2022-05-03 10:10 | MHC.CLN ---
F/U DISCUSSED AT ROUNDS WITH PT REMAINS INTUBATED goals of care today include sedation cessation and vent weaning PT TOLERATING PROMOTE AT MAX GOAL RATE 30ML/HR WITH 240ML FREE WATER FLUSHES Q 8 HOURS PROVIDES 720KCALS, 45G PROTEIN, 1324ML TOTAL FREE WATER FROM FORMULA AND FLUSHES COMBINED CONTINUE TO MONITOR TOLERANCE, RESIDUALS AND LYTES FOLLOWING WITH TEAM
[2022-05-03] MEDS: Thiamine HCL 100 MG in 0.9 % Sodium Chloride 100 ML 202 MG IV (10:11)
[2022-05-03] MEDS: Famotidine/PF 20 MG/2 ML VIAL IVPUSH (10:11)
[2022-05-03] MEDS: Insulin Glargine,Hum.rec.anlog 100 UNIT/ML 10 ML VIAL 20 UNIT SUBCUT (10:12)
[2022-05-03] MEDS: Chlorhexidine Gluc Oral Rinse 15 ML MOUTHWASH BUCCAL (10:12)
[2022-05-03] MEDS: Doxycycline Hyclate 100 MG in 0.9 % Sodium Chloride 250 ML 166.7 MG IV ×2 (10:14→21:14)
[2022-05-03 10:27] LABS: Venous Blood Gas Refer to POC result
[2022-05-03 12:12] LABS: Glucose, Whole Blood 135 mg/dL (60-115)
--- NOTE | 2022-05-03 14:04 | P.PNCC_ITS ---
Subjective Subjective Date of Service: 05/03/22 Interval History: 41-year-old lady with underlying history of asthma, migraines, and depression admitted on 04/23/2022 with acute hypoxic respiratory failure secondary to MSSA pneumonia superinfection of prior COVID pneumonia resulting acute hypoxic respiratory failure requiring intubation and ventilatory support. Hospital course significant for problem requirements for ventilatory support and development of acute cor pulmonale. Now improving slowly. Critical Care Time (minutes): 60 Physical Exam Vital Signs: Vital Signs: Last Vital Signs Temp 99.1 F 05/03/22 13:00 Pulse 75 05/03/22 13:00 Resp 18 05/03/22 13:00 BP 114/68 05/03/22 13:00 Pulse Ox 95 05/03/22 13:00 O2 Del Method 05/03/22 13:00 O2 Flow Rate 100 04/23/22 14:00 FiO2 40 05/03/22 13:00 BMI result Body Mass Index 50.0 Const: General: no acute distress and other (Sedated on the vent, arousable wi th sedation vacation) Nutritional Appearance: obese Eyes: Sclerae: sclerae normal EOM: EOMs intact bilaterally Neck: Neck: Yes no lymphadenopathy, Yes trachea midline and Yes supple Resp: Auscultation: crackles (Diffuse bilateral) Cardio: Rate: regular rate Rhythm: regular rhythm Heart sounds: no gallops, no murmurs and no rubs GI: Palpation (GI): Soft to palpation and Other GI palpation findings present ( Nontender) Auscultation: normal bowel sounds Extrem: General: No clubbing, No cyanosis and Yes edema (Trace bilateral) Objective Data Labs 05/03/22 04:55 05/03/22 04:55 Labs: Laboratory Results - last 24 hr 05/02/22 05/02/22 05/02/22 17:09 21:16 21:20 WBC RBC Hgb Hct MCV MCH MCHC RDW Plt Count MPV Immature Gran % (Auto) Neut % (Auto) Lymph % (Auto) [place] % (Auto) Eos % (Auto) Baso % (Auto) Lymph # (Auto) [place] # (Auto) Eos # (Auto) Baso # (Auto) Abs Immat Gran (auto) Absolute Neuts (auto) Absolute Nucleated RBC Nucleated RBC % (auto) VBG pH 7.46 H VBG pCO2 46 VBG pO2 50 VBG HCO3 33 H VBG O2 Saturation 81.0 VBG Base Excess 8.6 Sodium Potassium Chloride Carbon Dioxide Anion Gap BUN Creatinine Estim Creat Clear Calc Estimated GFR POC Glucose 153 H Random Glucose Calcium Phosphorus Magnesium Troponin I High Sens < 3.5 Albumin 05/02/22 05/03/22 05/03/22 23:47 04:55 04:55 WBC 22.8 H RBC 3.78 L Hgb 10.7 L Hct 32.8 L MCV 86.8 MCH 28.3 MCHC 32.6 RDW 14.6 Plt Count 479 H MPV 11.0 Immature Gran % (Auto) 1.8 H Neut % (Auto) 74.5 H Lymph % (Auto) 15.1 L [place] % (Auto) 5.3 Eos % (Auto) 3.1 Baso % (Auto) 0.2 Lymph # (Auto) 3.5 [place] # (Auto) 1.2 Eos # (Auto) 0.7 H Baso # (Auto) 0.0 Abs Immat Gran (auto) 0.40 H Absolute Neuts (auto) 17.0 H Absolute Nucleated RBC 0.000 Nucleated RBC % (auto) 0.0 VBG pH VBG pCO2 VBG pO2 VBG HCO3 VBG O2 Saturation VBG Base Excess Sodium 135 Potassium 4.1 Chloride 97 Carbon Dioxide 28 Anion Gap 14 BUN 16 Creatinine 0.58 Estim Creat Clear Calc 147.0 Estimated GFR > 60 POC Glucose 118 H Random Glucose 113 Calcium 8.7 Phosphorus 3.3 Magnesium 1.8 Troponin I High Sens Albumin 3.2 L 05/03/22 05/03/22 05/03/22 04:55 04:57 12:03 WBC RBC Hgb Hct MCV MCH MCHC RDW Plt Count MPV Immature Gran % (Auto) Neut % (Auto) Lymph % (Auto) [place] % (Auto) Eos % (Auto) Baso % (Auto) Lymph # (Auto) [place] # (Auto) Eos # (Auto) Baso # (Auto) Abs Immat Gran (auto) Absolute Neuts (auto) Absolute Nucleated RBC Nucleated RBC % (auto) VBG pH 7.48 H VBG pCO2 38 VBG pO2 39 VBG HCO3 29 H VBG O2 Saturation 68.0 VBG Base Excess 5.6 Sodium Potassium Chloride Carbon Dioxide Anion Gap BUN Creatinine Estim Creat Clear Calc Estimated GFR POC Glucose 135 H Random Glucose Calcium Phosphorus Magnesium Troponin I High Sens < 3.5 Albumin Microbiology Microbiology Results: Microbiology 04/28/22 02:52 Blood - Venous Blood Culture - Final No growth after 5 days. 04/28/22 02:52 Blood - Venous Blood Culture - Final No growth after 5 days. 04/28/22 08:11 Sputum - Suctioned Gram Stain - Final 04/28/22 08:11 Sputum - Suctioned Sputum Culture - Final Staphylococcus aureus 04/22/22 22:00 Blood - Venous Blood Culture - Final No growth after 5 days. 04/22/22 21:29 Blood - Venous Blood Culture - Final No growth after 5 days. Progress Note: A&P Assessment and plan (1) Acute respiratory failure with hypoxia: Status: Acute (2) Acute cor pulmonale: Status: Acute (3) Pneumonia due to COVID-19 virus: Status: Acute (4) MSSA (methicillin susceptible Staphylococcus aureus) pneumonia: Status: Acute (5) Respiratory failure: Status: Acute (6) Morbid obesity: Status: Acute Plan Assessment: 41-year-old lady admitted with acute hypoxic respiratory failure secondary to MSSA superinfection of prior COVID pneumonia now requiring ventilatory support. Plan: Neuro: No acute issues. Cardiac: Acute cor pulmonale, improving. Pulmonary: Acute hypoxic respiratory failure secondary to MSSA/COVID pneumonia requiring ventilatory support, improving. Continue doxycycline. Renal: No acute issues. Endo: No acute issues. GI: No acute issues. ID: No acute issues Heme/Onc: No acute issues. Psych: No acute issues. Miscellaneous: No acute issues. Prophylaxis: Lovenox Diet: Tube feeds Critical care time spent: 60 minutes Quality Stroke Does the patient have a stroke diagnosis?: No VTE Prior VTE?: No VTE Risk Level:: Medical - moderate - high VTE Device Contraindication: Treatment Not Indicated VTE Drug Contraindication: N/A - Med Ordered
--- NOTE | 2022-05-03 15:10 | P.CNID_ITS ---
History of Present Illness Data of Consult Service Date: 05/03/22 Requesting physician: Frandy De Leon Primary Care Provider: Beti Gamble MD HPI Reason for consult: shortness of breath She presents to hospital shortness of breath. She has symptoms somewhat less than a week. She has COVID and subsequently MSSA purulent sputum She is on Doxycycline now. Review of Systems Review of Systems: Yes all other systems are reviewed and are negative PMFSH Past Medical History Medical History Asthma Depression Disc herniation H. pylori infection Migraine Sinus infection Family History Family history: reviewed and not pertinent Surgical History Surgical History History of Social History Social History Household Members: Family Housing: Apartment Do you presently have visiting nurse or other home services: No Alcohol intake: never Patient Tobacco Use Status: Current everyday Tobacco user Tobacco use type: Cigarette Smoked in Last 30 Days: Yes Patient Interested in Nicotine Replacement: No Patient Given Instructions on How to Stop Smoking: Yes Date Education Initiated: 04/23/22 Second Hand Smoke Exposure: Yes Use of substances other than those prescribed or required for medical reasons: No Currently Displaying Signs/Symptoms of Drug Intoxication Withdrawal: No Have you been hit, kicked, punched, or otherwise hurt by someone within the past year? If so, by whom?: No Do you feel safe in your current relationship?: Yes Is there a partner from a previous relationship who is making you feel unsafe now?: No Are you made to feel afraid or neglected: No Advance Directives: No Advance Directives Information Provided: No Do you have thoughts of harming others: None Do you have a plan to hurt others: No Plan Recently lost weight without trying: No Eating poorly because of decreased appetite: No Nutrition Risks: No Nutritional Risk Patient : No : No Poor oral hygiene: No service: No Current occupational status: employed Meds Allergies Allergy/AdvReac Type Severity Reaction Status Date / Time promethazine [From PHENERGAN] Allergy Unknown ITCHING Verified 04/22/22 19:30 codeine [CODEINE] AdvReac Unknown STOMACH Verified 04/22/22 19:30 UPSET morphine [MORPHINE] AdvReac Unknown MORE PAIN Verified 04/22/22 19:30 Active Medications: Current Medications Acetaminophen (Acetaminophen 325 Mg Tablet) 325 mg PO Q6H PRN PRN Reason: Fever Last Admin: 05/01/22 12:13 Dose: 325 mg Enoxaparin Sodium (Enoxaparin Sodium 60 Mg/0.6 Ml Syringe) 60 mg SUBCUT Q24H [facility] Last Admin: 05/02/22 23:35 Dose: 60 mg Norepinephrine Bitartrate (Levophed) 8 mg in 250 mls @ 0 mls/hr IV .Q0M [facility]; Protocol Last Titration: 05/02/22 13:46 Dose: Infused Doxycycline Hyclate 100 mg/ (Sodium Chloride) 250 mls @ 166.67 mls/hr IV Q12H [facility] Last Infusion: 05/03/22 11:47 Dose: Infused Insulin Glargine (Insulin Glargine,Hum.Rec.Anlog 100 Unit/Ml 10 Ml Vial) 20 unit SUBCUT DAILY [facility] Last Admin: 05/03/22 10:12 Dose: 20 unit Insulin Human Lispro (Insulin Lispro 100 Unit/Ml 3 Ml Vial) 0 unit SUBCUT Q6H [facility]; Protocol Last Admin: 05/03/22 12:05 Dose: Not Given Lactulose (Lactulose 20 Gm/30 Ml Solution) 20 gm PO Q24H PRN PRN Reason: Constipation Last Admin: 04/30/22 00:02 Dose: 20 gm Nystatin (Nystatin Powder 15 Gm Bottle) 1 appl TOPICAL BID [facility]; Protocol Last Admin: 05/03/22 10:10 Dose: 1 appl Pharmacy Consult (Consult Rx Perform Med Rec) 1 each MISCELLANE ONCE PRN PRN Reason: Consult order Sodium Chloride (0.9 % Sodium Chloride Flush 3 Ml Syringe) 3 ml IVFLUSH QSHIFT [facility] Last Admin: 05/03/22 08:53 Dose: 3 ml Home Medications Medication Instructions Recorded Confirmed Last Taken Type budesonide-formoterol HFA 160 1 puff PO BID 09/18/21 04/22/22 09/16/21 History mcg-4.5 mcg/actuation aerosol inhaler (Symbicort) gabapentin 400 mg capsule 1 cap PO BID 09/18/21 04/22/22 09/16/21 History hydroxyzine pamoate 50 mg capsule 50 mg PO DAILY PRN Anxiety 09/18/21 04/22/22 09/16/21 History hydroxyzine pamoate 50 mg capsule 100 mg PO BEDTIME PRN Anxiety 09/18/21 04/22/22 09/16/21 History paroxetine HCl 40 mg tablet 1 tab PO BEDTIME 09/18/21 04/22/22 09/16/21 History prazosin 5 mg capsule 1 cap PO BEDTIME 09/18/21 04/22/22 09/16/21 History riboflavin (vitamin B2) 100 mg 2 tab PO BID 09/18/21 04/22/22 09/16/21 History tablet (Vitamin B-2) bupropion HCl 150 mg 24 hr tablet, 1 tab PO QAM 04/22/22 04/22/22 Unknown History extended release cholecalciferol (vitamin D3) 50 2 tab PO DAILY 04/22/22 04/22/22 Unknown History mcg (2,000 unit) tablet montelukast 10 mg tablet 1 tab PO DAILY asthma 04/22/22 04/22/22 Unknown History Physical Exam Vital Signs: Vital Signs: Last Vital Signs Temp 98.4 F 05/03/22 15:00 Pulse 78 05/03/22 15:00 Resp 16 05/03/22 15:00 BP 114/68 05/03/22 15:00 Pulse Ox 97 05/03/22 15:00 O2 Del Method 05/03/22 15:00 O2 Flow Rate 3 05/03/22 15:00 FiO2 40 05/03/22 14:35 BMI result Body Mass Index 50.0 Const: General: cooperative HEENT: Head: Yes normal to inspection Face and sinus: Yes normal facial exam Mouth: Normal oral and palatal mucosa present Teeth and gingiva: dentition normal Eyes: General: appearance normal, both eyes and all related structures Pupils: Equal, round and reactive pupils present Resp: Other: ventilated,sedated Cardio: Rate: regular rate Rhythm: regular rhythm GI: Palpation (GI): Soft to palpation and nontender : General: Yes no CVA tenderness Back/Spine/Pelvis: Back: no CVA tenderness Skin: General skin exam: no rashes or lesions noted Neuro: General: moves all extremities Cranial nerves: Yes Equal, round and reactive pupils present Extrem: General: Yes normal to inspection Psych: Appearance: grossly normal Results Labs 05/03/22 04:55 05/03/22 04:55 Labs: Short CBC 05/03/22 Range/Units 04:55 WBC 22.8 H (4.8-10.8) X10*3/uL Hgb 10.7 L (12.0-16.0) g/dl Hct 32.8 L (37.0-47.0) % Plt Count 479 H (160-400) X10*3/uL BMP 05/03/22 04:55 Sodium 135 Potassium 4.1 Chloride 97 Carbon Dioxide 28 BUN 16 Creatinine 0.58 Calcium 8.7 Liver Function 05/03/22 Range/Units 04:55 Albumin 3.2 L (3.5-5.0) g/dL Microbiology Microbiology Results: Microbiology 04/28/22 02:52 Blood - Venous Blood Culture - Final No growth after 5 days. 04/28/22 02:52 Blood - Venous Blood Culture - Final No growth after 5 days. 04/28/22 08:11 Sputum - Suctioned Gram Stain - Final 04/28/22 08:11 Sputum - Suctioned Sputum Culture - Final Staphylococcus aureus 04/22/22 22:00 Blood - Venous Blood Culture - Final No growth after 5 days. 04/22/22 21:29 Blood - Venous Blood Culture - Final No growth after 5 days. Assessment and Plan (1) MSSA (methicillin susceptible Staphylococcus aureus) pneumonia: Status: Acute She is on Doxycycline and is tolerating it well. She has had COVID and has had subsequent MSSA pneumonia (2) Acute respiratory failure with hypoxia: Status: Acute (3) Pneumonia due to COVID-19 virus: Status: Acute Plan Continue Doxycycline for 10 day totally and may switch to po. Time Spent With Patient Time: Total time managing care of this patient today ____ minutes.
[2022-05-03] MEDS: Furosemide 20 MG/2 ML VIAL IVPUSH (15:45)
[2022-05-03 18:11] LABS: Glucose, Whole Blood 123 mg/dL (60-115)
--- NOTE | 2022-05-03 19:07 | PC.NURSE ---
PATIENT FOUND FOUND SEDATED AND INTUBATED ON MORNING ASSESSMENT. UNABLE TO DETERMINE NEUROLOGICAL ASSESSMENT, SEE FULL ASSESSMENT. SEDATION VACATION INITIATED IN AM PER MD REQUESTED. PRECEDEX GTT TITRATED OFF, SEE EMAR. PATIENT SLOWLY BECAME AROUSABLE, ASSESSED NEUROLOGICAL STATUS AND INFORMED MD. MD DECISION MADE TO EXTUBATE PATIENT. RT CALLED DOWN TO PATIENT ROOM. PATIENT EXTUBATED SUCCESSFULLY, WITH REMOVAL OF OG TUBE. PLACED ON 4L KEYS. PATIENT ABLE TO MAINTAIN OXYGEN LEVELS. TELESITTER PLACED IN ROOM DUE TO PATIENT REMOVING EKG LEADS AND >5 FINGER O2 SENSOR. SPOUSE CONTACTED AND INFORMED ON PATIENT HEALTH STATUS AND EXTUBATION. LASIX 2OMG GIVEN PER MD. SEE I&O FOR COMPLETE FLUID BALANCE. PATIENT BATHED, ROTATED Q2HR, ROUTINE ORAL CARE PREFORMED, FAMILY AND PATIENT UPDATED ON HEALTH STATUS.
[2022-05-03 20:31] LABS: Anion Gap 15 (12-20); Blood Urea Nitrogen 15 mg/dL (9-16); Carbon Dioxide 29 mmol/L (22-29); Chloride 98 mmol/L (96-108); Creatinine Clr Calc Pharmacy 152.4; Estimated Glomerular Filt Rate > 60; Glucose Random 94 mg/dL (60-115); Potassium 3.7 mmol/L (3.3-5.1); Sodium 138 mmol/L (135-145)
[2022-05-03] MEDS: Haloperidol Lactate 5 MG/ML VIAL IVPUSH (22:55)
[2022-05-03] MEDS: Enoxaparin Sodium 60 MG/0.6 ML SYRINGE SUBCUT (22:55)
[2022-05-04] VITALS (15 sets, daily range): BP systolic 119–155; BP diastolic 54–92; PULSE 87–109; RESP 16–35; TEMP 36–36.9; O2SAT 93–100; BMI 48.5
[2022-05-04 00:21] LABS: Glucose, Whole Blood 86 mg/dL (60-115)
[2022-05-04] MEDS: 0.9 % Sodium Chloride Flush 3 ML SYRINGE IVFLUSH ×3 (00:22→19:37)
--- NOTE | 2022-05-04 03:27 | PC.NURSE ---
Assumed care for patient at 1900. Patient is pulling off leads, removing O2, pulled out temp probe from eddy catheter, attempting to jump out of bed. Haldol 5mg IV ordered / administered , some effectiveness noted. Needs constant redirecting. Telesitter in place. 1:1 sitter for safety. VSS will continue to monitor.
[2022-05-04 05:14] LABS: VBG Base Excess 7.4 mmol/L; VBG HCO3 32 mmol/L (22-26); VBG pCO2 47 mmHg; VBG pH 7.44 (7.32-7.43); VBG pO2 53 mmHg
[2022-05-04 05:40] LABS: Basophils Percent Auto 0.2 % (0-2); Eosinophils Absolute Auto 0.3 X10*3/uL (0.0-0.4); Eosinophils Percent Auto 1.3 % (0-4); Hematocrit 34.7 % (37.0-47.0); Hemoglobin 11.4 g/dl (12.0-16.0); Imm Gran Pct Auto 2.7 % (0.0-0.4); Lymphocytes Absolute Auto 1.9 X10*3/uL (1.2-4.9); Lymphocytes Percent Auto 8.4 % (20-40); MANUAL DIFF FLAG SCAN; Mean Corpuscular HGB Conc 32.9 g/dl (31.0-35.0); Mean Corpuscular Hemoglobin 27.7 pg (27.0-33.0); Mean Corpuscular Volume 84.4 fL (80.0-98.0); Mean Platelet Volume 10.8 fL (9.4-12.3); Monocytes Absolute Auto 2.1 X10*3/uL (0.1-1.2); Monocytes Percent Auto 9.4 % (2-11); Neutrophils Absolute Auto 17.6 x10*3/uL (2.0-8.3); Platelet Count 600 X10*3/uL (160-400); Red Blood Count 4.11 X10*6/uL (4.20-5.50); Red Cell Distribution Width 14.8 % (11.0-16.0); SCAN SMEAR FLAG 1; White Blood Count 22.5 X10*3/uL (4.8-10.8)
[2022-05-04 06:00] LABS: Albumin Level 3.5 g/dL (3.5-5.0); Anion Gap 18 (12-20); Blood Urea Nitrogen 16 mg/dL (9-16); Calcium 9.1 mg/dL (8.4-10.2); Carbon Dioxide 27 mmol/L (22-29); Chloride 99 mmol/L (96-108); Estimated Glomerular Filt Rate > 60; Glucose Random 82 mg/dL (60-115); Magnesium 1.9 mg/dL (1.6-2.6); Phosphorus 3.5 mg/dL (2.7-4.5); Potassium 3.7 mmol/L (3.3-5.1); Sodium 140 mmol/L (135-145)
[2022-05-04 06:11] LABS: SLIDE REVIEW VERIFIED
[2022-05-04 07:13] LABS: Venous Blood Gas Refer to POC result
[2022-05-04] MEDS: Insulin Glargine,Hum.rec.anlog 100 UNIT/ML 10 ML VIAL 20 UNIT SUBCUT (08:22)
[2022-05-04] MEDS: lamoTRIgine 25 MG TABLET 50 MG PO ×2 (08:23→19:29)
[2022-05-04] MEDS: Doxycycline Hyclate 100 MG in 0.9 % Sodium Chloride 250 ML 166.7 MG IV ×2 (08:23→21:05)
[2022-05-04] MEDS: Nystatin Powder 15 GM BOTTLE 1 APPL TOPICAL (08:25)
--- NOTE | 2022-05-04 09:47 | MHC.CLN ---
F/U PT EXTUBATED SUCCESSFULLY 05/03/[address] MAKER EVAL WHEN DIET TO ADVANCE; RECOMMEND REGULAR DIET IN ADDITION TO ROAD MAKER REC. FOLLOWING WITH TEAM
--- NOTE | 2022-05-04 11:40 | P.PNCC_ITS ---
Subjective Subjective Date of Service: 05/04/22 Interval History: 41-year-old lady with underlying history of asthma, migraines, and depression admitted on 04/23/2022 with acute hypoxic respiratory failure secondary to MSSA pneumonia superinfection of prior COVID pneumonia resulting acute hypoxic respiratory failure requiring intubation and ventilatory support. Hospital course significant for problem requirements for ventilatory support and development of acute cor pulmonale. Now improving slowly. extubated 05/03/2022. Passed swallow evaluation. Overnight with some delirium, started on Lamictal. Critical Care Time (minutes): 0 Physical Exam Vital Signs: Vital Signs: Last Vital Signs Temp 98.1 F 05/04/22 07:00 Pulse 97 05/04/22 10:58 Resp 23 H 05/04/22 10:58 BP 142/83 H 05/04/22 10:58 Pulse Ox 97 05/04/22 10:58 O2 Del Method 05/04/22 10:58 O2 Flow Rate 4 05/04/22 10:58 FiO2 40 05/03/22 14:35 BMI result Body Mass Index 48.5 Const: General: no acute distress, awake and confusion ( Intermittently, int ermittently appropriate) Nutritional Appearance: obese [place] entation/consciousness: confusion ( Intermittently, intermittently appropriate) Eyes: Sclerae: sclerae normal EOM: EOMs intact bilaterally Neck: Neck: Yes no lymphadenopathy, Yes trachea midline and Yes supple Resp: Effort & Inspection: normal respiratory effort and no respiratory distress Auscultation: crackles ( bibasilar) Cardio: Rate: regular rate Rhythm: regular rhythm Heart sounds: no gallops, no murmurs and no rubs GI: Palpation (GI): Soft to palpation and Other GI palpation findings present ( Nontender) Auscultation: normal bowel sounds Neuro: General: confusion ( Intermittently, intermittently appropriate) Extrem: General: No clubbing, No cyanosis and Yes edema ( trace bilateral) Objective Data Labs 05/04/22 05:00 05/04/22 05:00 Labs: Laboratory Results - last 24 hr 05/03/22 05/03/22 05/03/22 12:03 17:57 20:10 WBC RBC Hgb Hct MCV MCH MCHC RDW Plt Count MPV Immature Gran % (Auto) Neut % (Auto) Lymph % (Auto) [place] % (Auto) Eos % (Auto) Baso % (Auto) Lymph # (Auto) [place] # (Auto) Eos # (Auto) Baso # (Auto) Abs Immat Gran (auto) Absolute Neuts (auto) Absolute Nucleated RBC Nucleated RBC % (auto) Smear Tech's Comments VBG pH VBG pCO2 VBG pO2 VBG HCO3 VBG O2 Saturation VBG Base Excess Sodium 138 Potassium 3.7 Chloride 98 Carbon Dioxide 29 Anion Gap 15 BUN 15 Creatinine 0.56 Estim Creat Clear Calc 152.4 Estimated GFR > 60 POC Glucose 135 H 123 H Random Glucose 94 Calcium 9.0 Phosphorus Magnesium Albumin 05/04/22 05/04/22 05/04/22 00:14 05:00 05:00 WBC 22.5 H RBC 4.11 L Hgb 11.4 L Hct 34.7 L MCV 84.4 MCH 27.7 MCHC 32.9 RDW 14.8 Plt Count 600 H D MPV 10.8 Immature Gran % (Auto) 2.7 H Neut % (Auto) 78.0 H Lymph % (Auto) 8.4 L [place] % (Auto) 9.4 Eos % (Auto) 1.3 Baso % (Auto) 0.2 Lymph # (Auto) 1.9 [place] # (Auto) 2.1 H Eos # (Auto) 0.3 Baso # (Auto) 0.0 Abs Immat Gran (auto) 0.60 H Absolute Neuts (auto) 17.6 H Absolute Nucleated RBC 0.000 Nucleated RBC % (auto) 0.0 Smear Tech's Comments VERIFIED VBG pH VBG pCO2 VBG pO2 VBG HCO3 VBG O2 Saturation VBG Base Excess Sodium 140 Potassium 3.7 Chloride 99 Carbon Dioxide 27 Anion Gap 18 BUN 16 Creatinine 0.53 Estim Creat Clear Calc 161.0 Estimated GFR > 60 POC Glucose 86 Random Glucose 82 Calcium 9.1 Phosphorus 3.5 Magnesium 1.9 Albumin 3.5 05/04/22 05:06 WBC RBC Hgb Hct MCV MCH MCHC RDW Plt Count MPV Immature Gran % (Auto) Neut % (Auto) Lymph % (Auto) [place] % (Auto) Eos % (Auto) Baso % (Auto) Lymph # (Auto) [place] # (Auto) Eos # (Auto) Baso # (Auto) Abs Immat Gran (auto) Absolute Neuts (auto) Absolute Nucleated RBC Nucleated RBC % (auto) Smear Tech's Comments VBG pH 7.44 H VBG pCO2 47 VBG pO2 53 VBG HCO3 32 H VBG O2 Saturation 80.0 VBG Base Excess 7.4 Sodium Potassium Chloride Carbon Dioxide Anion Gap BUN Creatinine Estim Creat Clear Calc Estimated GFR POC Glucose Random Glucose Calcium Phosphorus Magnesium Albumin Microbiology Microbiology Results: Microbiology 04/28/22 02:52 Blood - Venous Blood Culture - Final No growth after 5 days. 04/28/22 02:52 Blood - Venous Blood Culture - Final No growth after 5 days. 04/28/22 08:11 Sputum - Suctioned Gram Stain - Final 04/28/22 08:11 Sputum - Suctioned Sputum Culture - Final Staphylococcus aureus 04/22/22 22:00 Blood - Venous Blood Culture - Final No growth after 5 days. 04/22/22 21:29 Blood - Venous Blood Culture - Final No growth after 5 days. Progress Note: A&P Assessment and plan (1) Morbid obesity: Status: Acute (2) MSSA (methicillin susceptible Staphylococcus aureus) pneumonia: Status: Acute (3) Acute respiratory failure with hypoxia: Status: Acute (4) Pneumonia due to COVID-19 virus: Status: Acute Plan Assessment: 41-year-old lady admitted with acute hypoxic respiratory failure secondary to MSSA superinfection of prior COVID pneumonia now requiring ventilatory support. Plan: Neuro: No acute issues. Cardiac: Acute cor pulmonale, improving with diuresis. Pulmonary: Acute hypoxic respiratory failure secondary to MSSA/COVID pneumonia requiring ventilatory support, improving. Continue doxycycline total of 10 days. Renal: No acute issues. Endo: No acute issues. GI: No acute issues. ID: No acute issues Heme/Onc: No acute issues. Psych: No acute issues. Miscellaneous: No acute issues. Prophylaxis: Lovenox Diet: regular Quality Stroke Does the patient have a stroke diagnosis?: No VTE Prior VTE?: No VTE Risk Level:: Medical - moderate - high VTE Device Contraindication: Treatment Not Indicated VTE Drug Contraindication: N/A - Med Ordered
[2022-05-04 12:16] LABS: Glucose, Whole Blood 136 mg/dL (60-115)
[2022-05-04] MEDS: Furosemide 20 MG/2 ML VIAL IVPUSH (12:48)
--- NOTE | 2022-05-04 14:31 | PC.NURSE ---
PATIENT AGITATED AND RESISTIVE TO CARE ON MORNING ASSESSMENT. PATIENT MAKING MULTIPLE ATTEMPTS MADE BY PATIENT TO REMOVE TLC FROM RIJ. PATIENT CONTINUOUSLY REMOVING O2 SENSOR PROBE AND SUPPLEMENTAL OXYGEN. TELE SITTER AND SITTER PLACED IN ROOM. PATIENT AGITATED AND RESTLESS, MD NOTIFIED. LAMOTRIGINE GIVEN WITH SOME EFFECT, SEE EMAR. LOPEZ DISCONTINUED AT 0848. PUREWICK PUT IN PLACE CONNECTED TO WALL SUCTION. PATIENT VOIDED 600 ML POST REMOVAL OF LOPEZ. LASIX 20 MG GIVEN PER MD AT 1248 WITH GOOD EFFECT, SEE EMAR. PATIENT INFORMED ON HEALTH STATUS, ROTATED Q2HR, ROUTINE ORAL CARE PREFORMED, PATIENT BATHED.
[2022-05-04 18:33] LABS: Legionella Ag Urine Not Detected (Not Detected)
--- NOTE | 2022-05-04 19:03 | MHC.SL.SWA ---
Speech Pathologist Impression: Risk of Aspiration Due to: History of Pneumonia Hx of Recent Extubation Dysphasia Diet Status: Liquid Consistency and Strategies for Safe Swallow: Liquid Intake Recommendation: [place] Thick Liquid Intake Strategies: Small Sips Solid Food Consistency: Dietary Recommendations: Chopped/Advanced (NDD3) Additional Modifications to Solid Foods: Patient will initially need 1-1 feeding as currently UE are weak and she is unable to independently eat. Patient did tolerate straw sips of [place] Thick liquid on assessment today, can have thickened liquids by controlled straw sip with supervision. Recommend alternate liquids and solids during meal. Discontinue is patient becomes fatigued, and do not attempt if patient is lethargic. Monitor O2 saturation during meal, discontinue with any signs of distress. Oral Medication Intake: Crushed with Puree Please contact the pharmacy regarding appropriate crushable or liquid drug formulations that are available whenever modified delivery is recommended. Compensatory Strategies and Precautions to be Taken for Safe Swallow: Sitting Upright (90 deg) Liquids from Cup Liquids from Straw Small Bites and Sips Alternate Liquids/Solids Supervision While Eating and Drinking for Safe Swallow: Total Assistance (1:1) Foods to Avoid: Hard, difficult to chew solids. MIXED CONSISTENCIES: NOTE if soup comes with tray and is NOT at nectar thick consistency or is a mix of broth an solids, please DO NOT administer. Swallowing Recommended Treatments: Compens. Strategy Educat. Recommendation for Speech: Inpatient Speech Therapy Comment: Patient presented with risk of aspiration on THIN consistencies, with coughing noted on swallow. Patient presents with aphonia s/p extubation, may have temporary VF weakness or issue which will likely resolve, but make airway vulnerable at this time. Patient tolerated NECTAR THICK liquids without difficulty, and tolerated most food consistencies well, but evidenced fatigue after eating more advanced textures. Recommend START diet of CHOPPED/ADVANCED (NDD3) with NECTAR THICK liquids, pills CRUSHED in puree for ease of swallow. Patient currently requires full 1-1 assistance with meals due to upper extremity weakness. Do not attempt if patient is lethargic and discontinue meal if patient becomes fatigued, evidences any distress, aspiration precautions apply. ELECTRONIC PUBLISHING SPECIALIST will continue to follow M-F while inpatient, monitor for toleration of diet, re-assess swallow, upgrade diet as warranted. Recommendations discussed with MD and RN in person, RD by secure text. Frequency/Duration: Date Range for Service Req: Timeline to reassess: Recreation Activities Coordinator Clinican/Clinical Fellow: No Supervisory Statement: I have reviewed and agree with the student/clinical fellow's documentation: N/A Speech Language Pathologist: Ebonie Tijerina M.A., [facility]-ELECTRONIC PUBLISHING SPECIALIST
[2022-05-04 19:16] LABS: Glucose, Whole Blood 111 mg/dL (60-115)
[2022-05-04] MEDS: OLANZapine 10 MG VIAL 5 MG IM (19:32)
[2022-05-04] MEDS: Enoxaparin Sodium 60 MG/0.6 ML SYRINGE SUBCUT (22:59)
--- NOTE | 2022-05-04 23:11 | PC.NURSE ---
peripheral iv #22 inserted to rt hand , order obtained from DR Alexander to remove TLC. Pt restless removed peripheral IV, uncooperative , unable to get another IV. TLC still in , pt needs IV antibiotics
--- NOTE | 2022-05-04 23:15 | PC.NURSE ---
Pt very restless tonight, uncooperative , reaching out to the TLC, removed dsg from TLC, medicated with Zyprexa IM , central line dsg changed , pt is resting at this time
[2022-05-05] MEDS: 0.9 % Sodium Chloride Flush 3 ML SYRINGE IVFLUSH ×2 (00:32→09:03)
[2022-05-05 01:08] LABS: Glucose, Whole Blood 94 mg/dL (60-115)
[2022-05-05 03:53] VITALS: BP 160/84; PULSE 93; RESP 20; TEMP 36.4; O2SAT 98
[2022-05-05 06:00] VITALS: BMI 43.9
[2022-05-05 06:02] LABS: Glucose, Whole Blood 96 mg/dL (60-115)
[2022-05-05 07:39] VITALS: BP 167/88; PULSE 88; RESP 14; TEMP 36.7; O2SAT 96
[2022-05-05 08:01] LABS: Basophils Percent Auto 0.2 % (0-2); Eosinophils Absolute Auto 0.3 X10*3/uL (0.0-0.4); Eosinophils Percent Auto 1.5 % (0-4); Hematocrit 42.3 % (37.0-47.0); Hemoglobin 13.6 g/dl (12.0-16.0); Imm Gran Abs Auto 0.41 X10*3/uL (0.00-0.03); Imm Gran Pct Auto 2.2 % (0.0-0.4); Lymphocytes Absolute Auto 2.3 X10*3/uL (1.2-4.9); Lymphocytes Percent Auto 12.5 % (20-40); MANUAL DIFF FLAG SCAN; Mean Corpuscular HGB Conc 32.2 g/dl (31.0-35.0); Mean Corpuscular Hemoglobin 27.4 pg (27.0-33.0); Mean Corpuscular Volume 85.1 fL (80.0-98.0); Mean Platelet Volume 10.6 fL (9.4-12.3); Monocytes Absolute Auto 1.8 X10*3/uL (0.1-1.2); Monocytes Percent Auto 9.7 % (2-11); Neutrophils Absolute Auto 13.9 x10*3/uL (2.0-8.3); Neutrophils Percent Auto 73.9 % (45-73); Platelet Count 697 X10*3/uL (160-400); Red Blood Count 4.97 X10*6/uL (4.20-5.50); Red Cell Distribution Width 15.9 % (11.0-16.0); SCAN SMEAR FLAG 1; White Blood Count 18.7 X10*3/uL (4.8-10.8)
[2022-05-05 08:09] LABS: Albumin Level 3.9 g/dL (3.5-5.0); Anion Gap 18 (12-20); Blood Urea Nitrogen 15 mg/dL (9-16); Calcium 9.9 mg/dL (8.4-10.2); Carbon Dioxide 28 mmol/L (22-29); Chloride 100 mmol/L (96-108); Creatinine Clr Calc Pharmacy 129.3; Estimated Glomerular Filt Rate > 60; Glucose Random 108 mg/dL (60-115); Phosphorus 3.5 mg/dL (2.7-4.5); Potassium 3.7 mmol/L (3.3-5.1); Sodium 142 mmol/L (135-145)
[2022-05-05] MEDS: lamoTRIgine 25 MG TABLET 50 MG PO ×2 (09:02→21:26)
[2022-05-05] MEDS: Doxycycline Hyclate 100 MG in 0.9 % Sodium Chloride 250 ML 166.7 MG IV (09:02)
[2022-05-05 09:11] LABS: SLIDE REVIEW VERIFIED
[2022-05-05] MEDS: Insulin Glargine,Hum.rec.anlog 100 UNIT/ML 10 ML VIAL 20 UNIT SUBCUT (10:25)
[2022-05-05] MEDS: Acetaminophen 325 MG TABLET PO (10:53)
--- NOTE | 2022-05-05 11:25 | HO.PM.IMPN ---
Subjective Subjective Date of Service: 05/05/22 Interval History: the patient was seen and evaluated this morning Laying in bed, Looks tired and isolated Denies any fever, chills or pain No reported other overnight events. Systemic review: No fever, chills but has generalized weakness No chest pain, palpitation No shortness of breath or coughing No abdominal pain, nausea or vomiting No urinary symptoms No reported rash Physical Exam Vital Signs: Vital Signs: Last Vital Signs Temp 98.0 F 05/05/22 07:39 Pulse 88 05/05/22 07:39 Resp 14 05/05/22 07:39 BP 167/88 H 05/05/22 07:39 Pulse Ox 96 05/05/22 07:39 O2 Del Method 05/05/22 07:39 O2 Flow Rate 3 05/05/22 07:39 FiO2 40 05/03/22 14:35 BMI result Body Mass Index 43.9 Const: Other: Constitutional : Awake, tired, not in distress Neck : Normal inspection, Supple Cardiovascular : RRR, no JVP, no lower extremity edema Respiratory : fair bilateral air entry, no crackles, wheezes or rhonchi Gastrointestinal: soft, lax, Normal bowel sounds, Non tender Skin : Warm, Dry Neurological : Alert & oriented to self, No focal deficit Objective Data Active Medications Acetaminophen (Acetaminophen 325 Mg Tablet) 325 mg PO Q6H PRN PRN Reason: Fever Last Admin: 05/05/22 10:53 Dose: 325 mg Documented By: JUSTUS Enoxaparin Sodium (Enoxaparin Sodium 60 Mg/0.6 Ml Syringe) 60 mg SUBCUT Q24H [facility] Last Admin: 05/04/22 22:59 Dose: 60 mg Documented By: JULIANNE Doxycycline Hyclate 100 mg/ (Sodium Chloride) 250 mls @ 166.67 mls/hr IV Q12H [facility] Last Admin: 05/05/22 09:02 Dose: 166.7 mls/hr Documented By: JUSTUS Insulin Glargine (Insulin Glargine,Hum.Rec.Anlog 100 Unit/Ml 10 Ml Vial) 20 unit SUBCUT DAILY [facility] Last Admin: 05/05/22 10:25 Dose: 20 unit Documented By: JUSTUS Insulin Human Lispro (Insulin Lispro 100 Unit/Ml 3 Ml Vial) 0 unit SUBCUT Q6H [facility]; Protocol Last Admin: 05/05/22 06:09 Dose: Not Given Documented By: KALI Non-Admin Reason: No Insulin Coverage Lactulose (Lactulose 20 Gm/30 Ml Solution) 20 gm PO Q24H PRN PRN Reason: Constipation Last Admin: 04/30/22 00:02 Dose: 20 gm Documented By: PEBBLES Lamotrigine (Lamotrigine 25 Mg Tablet) 50 mg PO BID [facility] Last Admin: 05/05/22 09:02 Dose: 50 mg Documented By: JUSTUS Nystatin (Nystatin Powder 15 Gm Bottle) 1 appl TOPICAL BID [facility]; Protocol Last Admin: 05/05/22 09:08 Dose: Not Given Documented By: JUSTUS Non-Admin Reason: Med Not Available Pharmacy Consult (Consult Rx Perform Med Rec) 1 each MISCELLANE ONCE PRN PRN Reason: Consult order Sodium Chloride (0.9 % Sodium Chloride Flush 3 Ml Syringe) 3 ml IVFLUSH QSHIFT [facility] Last Admin: 05/05/22 09:03 Dose: 3 ml Documented By: JUSTUS Labs 05/05/22 07:24 05/05/22 07:24 Labs: Laboratory Results - last 24 hr 05/02/22 05/04/22 05/04/22 08:12 12:02 19:09 MCV MCH MCHC RDW Plt Count MPV Immature Gran % (Auto) Neut % (Auto) Lymph % (Auto) [place] % (Auto) Eos % (Auto) Baso % (Auto) Lymph # (Auto) [place] # (Auto) Eos # (Auto) Baso # (Auto) Abs Immat Gran (auto) Absolute Neuts (auto) Absolute Nucleated RBC Nucleated RBC % (auto) Smear Tech's Comments Anion Gap Estim Creat Clear Calc Estimated GFR POC Glucose 136 H 111 Random Glucose Calcium Phosphorus Magnesium Albumin Ur L.pneumophila Ag Not Detected 05/05/22 05/05/22 05/05/22 01:03 05:56 07:24 MCV 85.1 MCH 27.4 MCHC 32.2 RDW 15.9 Plt Count 697 H MPV 10.6 Immature Gran % (Auto) 2.2 H Neut % (Auto) 73.9 H Lymph % (Auto) 12.5 L [place] % (Auto) 9.7 Eos % (Auto) 1.5 Baso % (Auto) 0.2 Lymph # (Auto) 2.3 [place] # (Auto) 1.8 H Eos # (Auto) 0.3 Baso # (Auto) 0.0 Abs Immat Gran (auto) 0.41 H Absolute Neuts (auto) 13.9 H Absolute Nucleated RBC 0.000 Nucleated RBC % (auto) 0.0 Smear Tech's Comments VERIFIED Anion Gap Estim Creat Clear Calc Estimated GFR POC Glucose 94 96 Random Glucose Calcium Phosphorus Magnesium Albumin Ur L.pneumophila Ag 05/05/22 07:24 MCV MCH MCHC RDW Plt Count MPV Immature Gran % (Auto) Neut % (Auto) Lymph % (Auto) [place] % (Auto) Eos % (Auto) Baso % (Auto) Lymph # (Auto) [place] # (Auto) Eos # (Auto) Baso # (Auto) Abs Immat Gran (auto) Absolute Neuts (auto) Absolute Nucleated RBC Nucleated RBC % (auto) Smear Tech's Comments Anion Gap 18 Estim Creat Clear Calc 129.3 Estimated GFR > 60 POC Glucose Random Glucose 108 Calcium 9.9 D Phosphorus 3.5 Magnesium 2.0 Albumin 3.9 Ur L.pneumophila Ag Assessment and Plan (1) MSSA (methicillin susceptible Staphylococcus aureus) pneumonia: Status: Acute (2) Acute cor pulmonale: Status: Acute (3) Acute respiratory failure with hypoxia: Status: Acute (4) Pneumonia due to COVID-19 virus: Status: Acute (5) Morbid obesity: Status: Acute Plan 41-year-old lady with underlying history of asthma, migraines, and depression admitted on 04/23/2022 with acute hypoxic respiratory failure secondary to MSSA pneumonia superinfection of prior COVID pneumonia resulting acute hypoxic respiratory failure requiring intubation and ventilatory support.? Hospital course significant for problem requirements for ventilatory support and development of acute cor pulmonale.? Now improving slowly. extubated 05/03/2022.? Passed swallow evaluation. CHF exacerbation, diastolic 2/2 Acute cor pulmonale improving with diuresis wean O2 down as tolerated Acute hypoxic respiratory failure secondary to MSSA/COVID pneumonia requiring ventilatory support, extubated Finished steroid and antiviral therapy Continue doxycycline total of 10 days ID input appreciated PHysical deconditioning PT eval Metabolic encephalopathy 2/2 ICU hypoactive delirium recurrent reorientation and increase physical activity Morbid obesity advised to lose weight Hyperglycemia No Hx of DM diagnosis, HbA1c of 5.4 DC Lantus SSI DVT PPx Lovenox The patient will continue to need inpatient hospital stay for Tx of hypoxia, Pneumonia Time Spent With Patient Time: Total time managing care of this patient today ____ minutes. Quality Stroke Does the patient have a stroke diagnosis?: No VTE Prior VTE?: No VTE Risk Level:: Medical - moderate - high VTE Device Contraindication: Treatment Not Indicated VTE Drug Contraindication: N/A - Med Ordered
[2022-05-05 12:00] VITALS: BP 181/80; PULSE 95; RESP 14; TEMP 37; O2SAT 98
[2022-05-05 12:08] LABS: Glucose, Whole Blood 177 mg/dL (60-115)
[2022-05-05] MEDS: Insulin Lispro 100 UNIT/ML 3 ML VIAL SUBCUT ×2 (12:36→18:39)
[2022-05-05 13:07] VITALS: BP 181/80; PULSE 95; O2SAT 98
[2022-05-05] MEDS: amLODIPine Besylate 5 MG TABLET PO (13:54)
[2022-05-05 15:22] VITALS: BP 140/77; PULSE 91; RESP 23; TEMP 36.7; O2SAT 96
--- NOTE | 2022-05-05 16:11 | MHC.SL.SWA ---
Addendum entered and electronically signed by Ting Espinoza MA, CCC-ACID RECOVERY OPERATOR 05/06/22 16:38: D.S. Original Note: Risk of Aspiration Due to: History of Pneumonia Hx of Recent Extubation Dysphasia Diet Status: No change Liquid Consistency and Strategies for Safe Swallow: Liquid Intake Recommendation: [place] Thick Liquid Intake Strategies: Small Sips Solid Food Consistency: Dietary Recommendations: Chopped/Advanced (NDD3) Additional Modifications to Solid Foods: Oral Medication Intake: Crushed with Puree Please contact the pharmacy regarding appropriate crushable or liquid drug formulations that are available whenever modified delivery is recommended. Compensatory Strategies and Precautions to be Taken for Safe Swallow: Sitting Upright (90 deg) Small Bites and Sips Alternate Liquids/Solids Rate of Ingestion Change Avoid Specific Foods Supervision While Eating and Drinking for Safe Swallow: Total Assistance (1:1) Foods to Avoid: Hard, difficult to chew solids. MIXED CONSISTENCIES: NOTE if soup comes with tray and is NOT at nectar thick consistency or is a mix of broth an solids, please DO NOT administer. Swallowing Recommended Treatments: Compens. Strategy Educat. Recommendation for Speech: Inpatient Speech Therapy Pt presents aphonic. Effortful breathwork/visible diaphragmatic movement throughout visit. Informed RN. Recommend pt continue with CHOPPED/ADVANCED (NDD3) solids, thin liquids, pills crushed in puree. Pt requires full 1-1 assist feeding d/t limited movement of upper extremities. Recommend alternate liquids and solids during meal. Monitor for s/s of aspiration. Discontinue is patient becomes fatigued, and do not attempt if patient is lethargic. Nurse Informatics Educator Clinican/Clinical Fellow: Yes: Nuvia Jenkins M.A., CF-ACID RECOVERY OPERATOR Supervisory Statement: I have reviewed and agree with the student/clinical fellow's documentation: N/A Speech Language Pathologist: Ebonie Tijerina M.A., CCC-ACID RECOVERY OPERATOR
[2022-05-05 18:31] LABS: Glucose, Whole Blood 163 mg/dL (60-115)
[2022-05-05 19:22] VITALS: BP 145/83; PULSE 96; RESP 26; TEMP 36.4; O2SAT 98
--- NOTE | 2022-05-05 19:41 | PC.NURSE ---
Pt RR is 24-26 at rest, is on 3l via nc sats 98%, abdominal breathing. MD made aware.
[2022-05-05] MEDS: Doxycycline Monohydrate 100 MG CAPSULE PO (21:27)
[2022-05-06] VITALS (8 sets, daily range): BP systolic 138–172; BP diastolic 68–88; PULSE 78–102; RESP 18–22; TEMP 36.5–36.8; O2SAT 97–100; BMI 45.6
--- NOTE | 2022-05-06 | MHC.PIE ---
P.Fall I.Pt slid OOB to floor onto knees.Telesitter stat alarm on but pt OOB before staff could get to room.Assisted back to bed.No injury noted,vitals stable.Dr Cameron and nursing pbx supervisor notified.1:1 sitter placed in room. E.Continue to monitor.
[2022-05-06] MEDS: 0.9 % Sodium Chloride Flush 3 ML SYRINGE IVFLUSH ×4 (01:12→23:38)
[2022-05-06] MEDS: Enoxaparin Sodium 60 MG/0.6 ML SYRINGE SUBCUT (01:12)
[2022-05-06] MEDS: Acetaminophen 325 MG TABLET PO ×2 (01:21→20:13)
[2022-05-06 01:25] LABS: Glucose, Whole Blood 134 mg/dL (60-115)
[2022-05-06 06:31] LABS: Glucose, Whole Blood 110 mg/dL (60-115)
[2022-05-06 07:41] LABS: Hematocrit 39.6 % (37.0-47.0); Hemoglobin 12.6 g/dl (12.0-16.0); Mean Corpuscular HGB Conc 31.8 g/dl (31.0-35.0); Mean Corpuscular Hemoglobin 27.4 pg (27.0-33.0); Mean Corpuscular Volume 86.1 fL (80.0-98.0); Mean Platelet Volume 10.7 fL (9.4-12.3); Platelet Count 676 X10*3/uL (160-400); Red Cell Distribution Width 16.2 % (11.0-16.0); White Blood Count 19.9 X10*3/uL (4.8-10.8)
[2022-05-06 08:18] LABS: Anion Gap 16 (12-20); Blood Urea Nitrogen 14 mg/dL (9-16); Calcium 9.4 mg/dL (8.4-10.2); Carbon Dioxide 29 mmol/L (22-29); Chloride 102 mmol/L (96-108); Creatinine Clr Calc Pharmacy 141.4; Estimated Glomerular Filt Rate > 60; Glucose Random 106 mg/dL (60-115); Potassium 3.6 mmol/L (3.3-5.1); Sodium 143 mmol/L (135-145)
[2022-05-06] MEDS: lamoTRIgine 25 MG TABLET 50 MG PO ×2 (08:55→19:59)
[2022-05-06] MEDS: Doxycycline Monohydrate 100 MG CAPSULE PO ×2 (08:55→19:59)
[2022-05-06] MEDS: amLODIPine Besylate 5 MG TABLET PO ×2 (08:55→18:02)
[2022-05-06 11:39] LABS: Glucose, Whole Blood 108 mg/dL (60-115)
[2022-05-06] MEDS: Enoxaparin Sodium 40 MG/0.4 ML SYRINGE SUBCUT (11:48)
[2022-05-06] MEDS: Ketorolac Tromethamine 15 MG/ML VIAL IVPUSH (11:48)
[2022-05-06] MEDS: Omeprazole 40 MG CAPSULE.DR PO (11:48)
[2022-05-06] MEDS: Lactulose 20 GM/30 ML SOLUTION PO (11:48)
--- NOTE | 2022-05-06 14:33 | HO.PM.IMPN ---
Subjective Subjective Date of Service: 05/06/22 Interval History: ?the patient was seen and evaluated this morning Laying? in bed, Looks better than yesterday and more interactive Becomes restless on occasions Denies any fever, chills or pain No reported other overnight events. Review of Systems Review of Systems: Yes all other systems are reviewed and are negative Physical Exam Vital Signs: Vital Signs: Last Vital Signs Temp 97.8 F 05/06/22 11:34 Pulse 89 05/06/22 11:34 Resp 20 05/06/22 11:34 BP 172/77 H 05/06/22 11:34 Pulse Ox 98 05/06/22 11:34 O2 Del Method 05/06/22 11:34 O2 Flow Rate 3 05/06/22 07:48 FiO2 40 05/03/22 14:35 BMI result Body Mass Index 45.6 Const: Other: Constitutional : Awake, tired, not in distress Neck : Normal inspection, Supple Cardiovascular : RRR, no JVP, no lower extremity edema Respiratory : fair bilateral air entry,? no crackles, wheezes or rhonchi Gastrointestinal:? soft, lax, Normal bowel sounds, Non tender Skin : Warm, Dry Neurological : Alert & oriented to self, No focal deficit Objective Data Active Medications Acetaminophen (Acetaminophen 325 Mg Tablet) 325 mg PO Q6H PRN PRN Reason: Fever Last Admin: 05/06/22 01:21 Dose: 325 mg Documented By: KALI Amlodipine Besylate (Amlodipine Besylate 5 Mg Tablet) 5 mg PO DAILY [facility]; Protocol Last Admin: 05/06/22 08:55 Dose: 5 mg Documented By: LAURENT Doxycycline Monohydrate (Doxycycline Monohydrate 100 Mg Capsule) 100 mg PO Q12H [facility] Last Admin: 05/06/22 08:55 Dose: 100 mg Documented By: LAURENT Enoxaparin Sodium (Enoxaparin Sodium 40 Mg/0.4 Ml Syringe) 40 mg SUBCUT Q24H [facility] Last Admin: 05/06/22 11:48 Dose: 40 mg Documented By: LAURENT Insulin Human Lispro (Insulin Lispro 100 Unit/Ml 3 Ml Vial) 0 unit SUBCUT Q6H [facility]; Protocol Last Admin: 05/06/22 11:49 Dose: Not Given Documented By: LAURENT Non-Admin Reason: No Insulin Coverage Lactulose (Lactulose 20 Gm/30 Ml Solution) 20 gm PO Q24H PRN PRN Reason: Constipation Last Admin: 04/30/22 00:02 Dose: 20 gm Documented By: PEBBLES Lamotrigine (Lamotrigine 25 Mg Tablet) 50 mg PO BID [facility] Last Admin: 05/06/22 08:55 Dose: 50 mg Documented By: LAURENT Nystatin (Nystatin Powder 15 Gm Bottle) 1 appl TOPICAL BID [facility]; Protocol Last Admin: 05/06/22 09:05 Dose: Not Given Documented By: LAURENT Non-Admin Reason: Med Not Available Omeprazole (Omeprazole 40 Mg Capsule.) 40 mg PO DAILY@0630 [facility] Last Admin: 05/06/22 11:48 Dose: 40 mg Documented By: LAURENT Pharmacy Consult (Consult Rx Perform Med Rec) 1 each MISCELLANE ONCE PRN PRN Reason: Consult order Sodium Chloride (0.9 % Sodium Chloride Flush 3 Ml Syringe) 3 ml IVFLUSH QSHIFT [facility] Last Admin: 05/06/22 08:56 Dose: 3 ml Documented By: LAURENT Labs 05/06/22 06:33 05/06/22 07:00 Labs: Laboratory Results - last 24 hr 05/05/22 05/06/22 05/06/22 18:27 01:21 06:27 MCV MCH MCHC RDW Plt Count MPV Absolute Nucleated RBC Nucleated RBC % (auto) Anion Gap Estim Creat Clear Calc Estimated GFR POC Glucose 163 H 134 H 110 Random Glucose Calcium 05/06/22 05/06/22 05/06/22 06:33 07:00 11:33 MCV 86.1 MCH 27.4 MCHC 31.8 RDW 16.2 H Plt Count 676 H MPV 10.7 Absolute Nucleated RBC 0.000 Nucleated RBC % (auto) 0.0 Anion Gap 16 Estim Creat Clear Calc 141.4 Estimated GFR > 60 POC Glucose 108 Random Glucose 106 Calcium 9.4 Assessment and Plan (1) Acute respiratory failure with hypoxia: Status: Acute (2) Pneumonia due to COVID-19 virus: Status: Acute (3) COVID-19: Status: Acute (4) Toxic metabolic encephalopathy: Status: Acute Plan 41-year-old lady with underlying history of asthma, migraines, and depression admitted on 04/23/2022 with acute hypoxic respiratory failure secondary to MSSA pneumonia superinfection of prior COVID pneumonia resulting acute hypoxic respiratory failure requiring intubation and ventilatory support.? Hospital course significant for problem requirements for ventilatory support and development of acute cor pulmonale.? Now improving slowly. extubated 05/03/2022.? Passed swallow evaluation. CHF exacerbation, diastolic 2/2 Acute cor pulmonale improving with diuresis wean O2 down as tolerated Acute hypoxic respiratory failure secondary to MSSA/COVID pneumonia requiring ventilatory support, extubated Finished steroid and antiviral therapy Continue doxycycline total of 10 days ID input appreciated Wean down to room air PHysical deconditioning PT eval Toxic Metabolic encephalopathy 2/2 ICU delirium, medications recurrent reorientation and increase physical activity To give Seroquel and sitter in the room Morbid obesity advised to lose weight Hyperglycemia No Hx of DM diagnosis, HbA1c of 5.4 DC Lantus SSI DVT PPx Lovenox The patient will continue to need inpatient hospital stay pending safe discharge plan Time Spent With Patient Time: Total time managing care of this patient today ____ minutes. Quality Stroke Does the patient have a stroke diagnosis?: No VTE Prior VTE?: No VTE Risk Level:: Medical - moderate - high VTE Device Contraindication: Treatment Not Indicated VTE Drug Contraindication: N/A - Med Ordered
[2022-05-06] MEDS: QUEtiapine Fumarate 25 MG TABLET PO ×2 (14:55→19:59)
--- NOTE | 2022-05-06 16:13 | PC.NURSE ---
Tipple lumen d/c today - patient tolerated the procedure well,
--- NOTE | 2022-05-06 17:34 | MHC.SL.SWA ---
Speech Pathologist Impression: Risk of Aspiration Due to: History of Pneumonia Hx of Recent Extubation Dysphasia Diet Status: Recommend pt continue with CHOPPED/ADVANCED (NDD3) solids, thin liquids, pills crushed in puree. Pt will need supervision during meal, is now more able to self feed. Recommend alternate liquids and solids during meal. Monitor for s/s of aspiration. Discontinue is patient becomes fatigued, and do not attempt if patient is lethargic. Liquid Consistency and Strategies for Safe Swallow: Liquid Intake Recommendation: Junior Thick Liquid Intake Strategies: Small Sips Solid Food Consistency: Dietary Recommendations: Chopped/Advanced (NDD3) Additional Modifications to Solid Foods: Patient will initially need 1-1 feeding as currently UE are weak and she is unable to independently eat. Patient did tolerate straw sips of Junior Thick liquid on assessment today, can have thickened liquids by controlled straw sip with supervision. Recommend alternate liquids and solids during meal. Discontinue is patient becomes fatigued, and do not attempt if patient is lethargic. Monitor O2 saturation during meal, discontinue with any signs of distress. Oral Medication Intake: Crushed with Puree Please contact the pharmacy regarding appropriate crushable or liquid drug formulations that are available whenever modified delivery is recommended. Compensatory Strategies and Precautions to be Taken for Safe Swallow: Sitting Upright (90 deg) Small Bites and Sips Alternate Liquids/Solids Rate of Ingestion Change Avoid Specific Foods Supervision While Eating and Drinking for Safe Swallow: Total Supervision (1:1) Foods to Avoid: Hard, difficult to chew solids. MIXED CONSISTENCIES: NOTE if soup comes with tray and is NOT at nectar thick consistency or is a mix of broth an solids, please DO NOT administer. Swallowing Recommended Treatments: Compens. Strategy Educat. Recommendation for Speech: Inpatient Speech Therapy Comment: Patient seen for repeat swallow assessment, dysphagia treatment this am. Patient was awake and alert with family members and sitter present in room. When verbalizing, patient evidenced severely hoarse/episodic aphonia and soft volume making her difficult to understand at times. Patient continues with nasal cannula/O2, at times evidenced abdominal breathing, poor breath support for speech. Patient was given tsp then cup sip of water, with timely transit and swallow noted, but coughing after cup sip. Pt given cup sips and straw sips of nectar thick liquid with improved toleration, no clinical signs of aspiration. Marielle willa was thickened for patient as this is a preferred drink, patient tolerated this well. Patient had lunch tray present but untouched, with patient complaining about not liking food offered. Patient was encouraged to take bites of magic cup for nutrition, after one bite, c/o taste (does not like chocolate). Patient refused all other trials of foods at recommended consistency level (chopped advanced). Daughter expressed desire to bring in food from home for patient, discussed right consistencies (e.g. if rice and beans, make sure meal is well moistened so rice congeals, pureed soups best). Patient expressed interest in fast food, but this was discouraged at this time. RN notified that family may bring in food from home and that family was informed of types of appropriate consistencies. Recommend patient continue on Chopped/Advanced diet with NECTAR thick liquids, pills crushed in puree. Frequency/Duration: Date Range for Service Req: Timeline to reassess: Centrifugal Casting Machine Operator Clinican/Clinical Fellow: No Supervisory Statement: I have reviewed and agree with the student/clinical fellow's documentation: N/A Speech Language Pathologist: Ebonie Tijerina M.A., CCC-CAN PUSHER
[2022-05-06 18:09] LABS: Glucose, Whole Blood 116 mg/dL (60-115)
[2022-05-06] MEDS: Famotidine/PF 20 MG/2 ML VIAL IVPUSH (19:59)
[2022-05-07] VITALS (9 sets, daily range): BP systolic 113–138; BP diastolic 61–82; PULSE 84–113; RESP 18–20; TEMP 36.2–36.9; O2SAT 91–98; BMI 45.6
[2022-05-07] MEDS: Omeprazole 40 MG CAPSULE.DR PO (05:34)
[2022-05-07] MEDS: amLODIPine Besylate 10 MG TABLET PO (08:59)
[2022-05-07] MEDS: lamoTRIgine 25 MG TABLET 50 MG PO ×2 (08:59→20:24)
[2022-05-07] MEDS: Doxycycline Monohydrate 100 MG CAPSULE PO ×2 (09:00→20:24)
[2022-05-07] MEDS: QUEtiapine Fumarate 25 MG TABLET PO ×2 (09:00→20:24)
[2022-05-07] MEDS: 0.9 % Sodium Chloride Flush 3 ML SYRINGE IVFLUSH ×3 (09:00→20:32)
--- NOTE | 2022-05-07 10:21 | MHC.CM.PN ---
Per ROUNDS discussion, Patient is medically cleared for dc. PT is recommending Acute Rehab and referrals have been made to acutes and SNF with no bed offer as of yet (Sitter just dc'd today). CM will follow.
[2022-05-07 11:15] LABS: Glucose, Whole Blood 146 mg/dL (60-115)
--- NOTE | 2022-05-07 12:22 | MHC.SL.SWA ---
Speech Pathologist Impression: Oropharyngeal dysphagia Risk of Aspiration Due to: History of Pneumonia Hx of Recent Extubation Dysphasia Diet Status: Recommend pt continue with CHOPPED/ADVANCED (NDD3) solids, nectar thick liquids, pills crushed in puree. Pt will need supervision during meal, is now more able to self feed. Recommend alternate liquids and solids during meal. Monitor for s/s of aspiration. Discontinue is patient becomes fatigued, and do not attempt if patient is lethargic. Liquid Consistency and Strategies for Safe Swallow: Liquid Intake Recommendation: Call[place]han Thick Liquid Intake Strategies: Small Sips Solid Food Consistency: Dietary Recommendations: Chopped/Advanced (NDD3) Oral Medication Intake: Crushed with Puree Please contact the pharmacy regarding appropriate crushable or liquid drug formulations that are available whenever modified delivery is recommended. Compensatory Strategies and Precautions to be Taken for Safe Swallow: Sitting Upright (90 deg) Small Bites and Sips Alternate Liquids/Solids Rate of Ingestion Change Avoid Specific Foods Supervision While Eating and Drinking for Safe Swallow: Total Supervision (1:1) Foods to Avoid: Hard, difficult to chew solids. MIXED CONSISTENCIES: NOTE if soup comes with tray and is NOT at nectar thick consistency or is a mix of broth an solids, please DO NOT administer. Swallowing Recommended Treatments: Compens. Strategy Educat. Recommendation for Speech: Inpatient Speech Therapy Sales Data Analyst Clinican/Clinical Fellow: No Supervisory Statement: I have reviewed and agree with the student/clinical fellow's documentation: N/A Speech Language Pathologist: Ting Espinoza M.A., CCC-CORE CUTTER
--- NOTE | 2022-05-07 13:08 | P.PNIM_ITS ---
Subjective Subjective Date of Service: 05/07/22 Interval History: ?the patient was seen and evaluated this morning Laying? in bed, Looks better than yesterday and more interactive Very unsteady on her feet but doing much better overall with physical therapy Had 2 episodes of sliding down in her bed with no reported head injury or any skin lacerations No reported other overnight events. Physical Exam Vital Signs: Vital Signs: Last Vital Signs Temp 97.6 F 05/07/22 11:45 Pulse 111 H 05/07/22 11:45 Resp 20 05/07/22 11:45 BP 113/73 05/07/22 11:45 Pulse Ox 98 05/07/22 11:45 O2 Del Method 05/07/22 11:45 O2 Flow Rate 4 05/07/22 11:45 FiO2 40 05/03/22 14:35 BMI result Body Mass Index 45.6 Const: Other: Constitutional : Awake, interactive, not in distress Neck : Normal inspection, Supple Cardiovascular : RRR, no JVP, no lower extremity edema Respiratory : fair bilateral air entry,? no crackles, wheezes or rhonchi Gastrointestinal:? soft, lax, Normal bowel sounds, Non tender Skin : Warm, Dry Neurological : Alert & oriented to self and place, No focal deficit Objective Data Active Medications Acetaminophen (Acetaminophen 325 Mg Tablet) 325 mg PO Q6H PRN PRN Reason: Fever Last Admin: 05/06/22 20:13 Dose: 325 mg Documented By: JUAN Amlodipine Besylate (Amlodipine Besylate 10 Mg Tablet) 10 mg PO DAILY [facility]; Protocol Last Admin: 05/07/22 08:59 Dose: 10 mg Documented By: LAURENT Doxycycline Monohydrate (Doxycycline Monohydrate 100 Mg Capsule) 100 mg PO Q12H [facility] Last Admin: 05/07/22 09:00 Dose: 100 mg Documented By: LAURENT Enoxaparin Sodium (Enoxaparin Sodium 40 Mg/0.4 Ml Syringe) 40 mg SUBCUT Q24H [facility] Last Admin: 05/06/22 11:48 Dose: 40 mg Documented By: LAURENT Lactulose (Lactulose 20 Gm/30 Ml Solution) 20 gm PO Q24H PRN PRN Reason: Constipation Last Admin: 04/30/22 00:02 Dose: 20 gm Documented By: PEBBLES Lamotrigine (Lamotrigine 25 Mg Tablet) 50 mg PO BID [facility] Last Admin: 05/07/22 08:59 Dose: 50 mg Documented By: LAURENT Nystatin (Nystatin Powder 15 Gm Bottle) 1 appl TOPICAL BID [facility]; Protocol Last Admin: 05/07/22 10:40 Dose: Not Given Documented By: LAURENT Non-Admin Reason: Med Not Available Omeprazole (Omeprazole 40 Mg Capsule.) 40 mg PO DAILY@0630 [facility] Last Admin: 05/07/22 05:34 Dose: 40 mg Documented By: COTEMA Ondansetron HCl (Ondansetron Hcl 4 Mg/2 Ml Vial) 4 mg IVPUSH Q4H PRN PRN Reason: Nausea Pharmacy Consult (Consult Rx Perform Med Rec) 1 each MISCELLANE ONCE PRN PRN Reason: Consult order Quetiapine Fumarate (Quetiapine Fumarate 25 Mg Tablet) 25 mg PO BID [facility] Last Admin: 05/07/22 09:00 Dose: 25 mg Documented By: LAURENT Sodium Chloride (0.9 % Sodium Chloride Flush 3 Ml Syringe) 3 ml IVFLUSH QSHIFT [facility] Last Admin: 05/07/22 09:00 Dose: 3 ml Documented By: LAURENT Labs 05/06/22 06:33 05/06/22 07:00 Labs: Laboratory Results - last 24 hr 05/06/22 05/07/22 18:00 10:54 POC Glucose 116 H 146 H Assessment and Plan (1) Toxic metabolic encephalopathy: Status: Acute (2) MSSA (methicillin susceptible Staphylococcus aureus) pneumonia: Status: Acute (3) Acute cor pulmonale: Status: Acute (4) Acute respiratory failure with hypoxia: Status: Acute Plan 41-year-old lady with underlying history of asthma, migraines, and depression admitted on 04/23/2022 with acute hypoxic respiratory failure secondary to MSSA pneumonia superinfection of prior COVID pneumonia resulting acute hypoxic respiratory failure requiring intubation and ventilatory support.? Hospital course significant for problem requirements for ventilatory support and development of acute cor pulmonale.? Now improving slowly. extubated 05/03/2022.? Passed swallow evaluation. CHF exacerbation, diastolic 2/2 Acute cor pulmonale Improved with diuresis wean O2 down as tolerated Acute hypoxic respiratory failure secondary to MSSA/COVID pneumonia requiring ventilatory support, extubated Finished steroid and antiviral therapy Continue doxycycline total of 10 days ID input appreciated Wean down to room air PHysical deconditioning PT eval Toxic Metabolic encephalopathy 2/2 ICU delirium, medications recurrent reorientation and increase physical activity To give Seroquel and sitter in the room Morbid obesity advised to lose weight Hyperglycemia No Hx of DM diagnosis, HbA1c of 5.4 DC Lantus SSI DVT PPx Lovenox The patient will continue to need inpatient hospital stay pending weaning down oxygen and safe discharge plan Time Spent With Patient Time: Total time managing care of this patient today ____ minutes. Quality Stroke Does the patient have a stroke diagnosis?: No VTE Prior VTE?: No VTE Risk Level:: Medical - moderate - high VTE Device Contraindication: Treatment Not Indicated VTE Drug Contraindication: N/A - Med Ordered
[2022-05-07] MEDS: Enoxaparin Sodium 40 MG/0.4 ML SYRINGE SUBCUT (13:15)
[2022-05-07] MEDS: Acetaminophen 325 MG TABLET PO (16:18)
[2022-05-07 16:31] LABS: Glucose, Whole Blood 124 mg/dL (60-115)
--- NOTE | 2022-05-07 18:35 | PC.NURSE ---
Patient had witnessed fall, per VMT personnel, patient stood up without assistance, lost her balance and fell back on the bed then slid down to the floor on her knees. Post fall VSS and assessment negative. Provider and Nursing boatbuilder supervisor notified. No injuries reported or noted. Patient has 1:1 sitter assigned and continuous video monitoring.
[2022-05-08] MEDS: oxyCODONE HCl Immed Release 5 MG TABLET PO ×2 (00:36→17:01)
[2022-05-08 03:43] VITALS: BP 137/77; PULSE 92; RESP 20; TEMP 37.1; O2SAT 96
[2022-05-08 05:56] VITALS: BMI 44.6
[2022-05-08 05:57] LABS: Glucose, Whole Blood 96 mg/dL (60-115)
[2022-05-08] MEDS: Omeprazole 40 MG CAPSULE.DR PO (06:14)
[2022-05-08 07:40] VITALS: BP 123/73; PULSE 93; RESP 22; TEMP 36.4; O2SAT 90
[2022-05-08 07:41] LABS: Glucose, Whole Blood 148 mg/dL (60-115)
[2022-05-08] MEDS: amLODIPine Besylate 10 MG TABLET PO (08:42)
[2022-05-08] MEDS: Doxycycline Monohydrate 100 MG CAPSULE PO ×2 (08:42→21:51)
[2022-05-08] MEDS: lamoTRIgine 25 MG TABLET 50 MG PO ×2 (08:43→21:50)
[2022-05-08] MEDS: QUEtiapine Fumarate 25 MG TABLET PO (08:43)
[2022-05-08] MEDS: Nystatin Powder 15 GM BOTTLE 1 APPL TOPICAL ×2 (08:56→21:51)
[2022-05-08] MEDS: 0.9 % Sodium Chloride Flush 3 ML SYRINGE IVFLUSH ×3 (08:56→21:51)
[2022-05-08 11:44] LABS: Glucose, Whole Blood 112 mg/dL (60-115)
[2022-05-08] MEDS: Enoxaparin Sodium 40 MG/0.4 ML SYRINGE SUBCUT (11:50)
[2022-05-08 12:00] VITALS: BP 112/74; PULSE 98; RESP 20; O2SAT 99
--- NOTE | 2022-05-08 12:31 | P.PNIM_ITS ---
Subjective Subjective Date of Service: 05/08/22 Interval History: ?the patient was seen and evaluated this morning Comfortable and more interactive Very unsteady on her feet and needs placement to rehab No reported other overnight events. Review of Systems Review of Systems: Yes all other systems are reviewed and are negative Physical Exam Vital Signs: Vital Signs: Last Vital Signs Temp 97.5 F 05/08/22 07:40 Pulse 93 05/08/22 07:40 Resp 22 H 05/08/22 07:40 BP 123/73 05/08/22 07:40 Pulse Ox 90 L 05/08/22 07:40 O2 Del Method 05/08/22 07:40 O2 Flow Rate 4 05/07/22 11:45 FiO2 40 05/03/22 14:35 BMI result Body Mass Index 44.6 Const: Other: Constitutional : Awake, interactive, not in distress Neck : Normal inspection, Supple Cardiovascular : RRR, no JVP, no lower extremity edema Respiratory : fair bilateral air entry,? no crackles, wheezes or rhonchi Gastrointestinal:? soft, lax, Normal bowel sounds, Non tender Skin : Warm, Dry Neurological : Alert & oriented to self, time and place, No focal deficit Objective Data Active Medications Acetaminophen (Acetaminophen 325 Mg Tablet) 325 mg PO Q6H PRN PRN Reason: Fever Last Admin: 05/07/22 16:18 Dose: 325 mg Documented By: LAURENT Amlodipine Besylate (Amlodipine Besylate 10 Mg Tablet) 10 mg PO DAILY [facility]; Protocol Last Admin: 05/08/22 08:42 Dose: 10 mg Documented By: ISIS Doxycycline Monohydrate (Doxycycline Monohydrate 100 Mg Capsule) 100 mg PO Q12H [facility] Last Admin: 05/08/22 08:42 Dose: 100 mg Documented By: ISIS Enoxaparin Sodium (Enoxaparin Sodium 40 Mg/0.4 Ml Syringe) 40 mg SUBCUT Q24H [facility] Last Admin: 05/08/22 11:50 Dose: 40 mg Documented By: ISIS Lactulose (Lactulose 20 Gm/30 Ml Solution) 20 gm PO Q24H PRN PRN Reason: Constipation Last Admin: 04/30/22 00:02 Dose: 20 gm Documented By: PEBBLES Lamotrigine (Lamotrigine 25 Mg Tablet) 50 mg PO BID [facility] Last Admin: 05/08/22 08:43 Dose: 50 mg Documented By: ISIS Nystatin (Nystatin Powder 15 Gm Bottle) 1 appl TOPICAL BID [facility]; Protocol Last Admin: 05/08/22 08:56 Dose: 1 appl Documented By: ISIS Omeprazole (Omeprazole 40 Mg Capsule.) 40 mg PO DAILY@0630 [facility] Last Admin: 05/08/22 06:14 Dose: 40 mg Documented By: ANGELA Ondansetron HCl (Ondansetron Hcl 4 Mg/2 Ml Vial) 4 mg IVPUSH Q4H PRN PRN Reason: Nausea Pharmacy Consult (Consult Rx Perform Med Rec) 1 each MISCELLANE ONCE PRN PRN Reason: Consult order Quetiapine Fumarate (Quetiapine Fumarate 25 Mg Tablet) 25 mg PO BID [facility] Last Admin: 05/08/22 08:43 Dose: 25 mg Documented By: ISIS Sodium Chloride (0.9 % Sodium Chloride Flush 3 Ml Syringe) 3 ml IVFLUSH QSHIFT [facility] Last Admin: 05/08/22 08:56 Dose: 3 ml Documented By: ISIS Labs 05/06/22 06:33 05/06/22 07:00 Labs: Laboratory Results - last 24 hr 05/07/22 05/08/22 05/08/22 16:28 05:53 07:26 POC Glucose 124 H 96 148 H 05/08/22 11:28 POC Glucose 112 Assessment and Plan (1) Toxic metabolic encephalopathy: Status: Acute (2) Morbid obesity: Status: Acute (3) MSSA (methicillin susceptible Staphylococcus aureus) pneumonia: Status: Acute (4) Acute respiratory failure with hypoxia: Status: Acute Plan 41-year-old lady with underlying history of asthma, migraines, and depression admitted on 04/23/2022 with acute hypoxic respiratory failure secondary to MSSA pneumonia superinfection of prior COVID pneumonia resulting acute hypoxic respiratory failure requiring intubation and ventilatory support.? Hospital course significant for problem requirements for ventilatory support and development of acute cor pulmonale.? Now improving slowly. extubated 05/03/2022.? Passed swallow evaluation. CHF exacerbation, diastolic 2/2 Acute cor pulmonale Secondary to acute respiratory failure from COVID Improved with diuresis, now of diuretics wean O2 down as tolerated Acute hypoxic respiratory failure secondary to MSSA/COVID pneumonia requiring ventilatory support, extubated Finished steroid and antiviral therapy Continue doxycycline total of 10 days ID input appreciated, doxycycline p.o. Wean down to room air PHysical deconditioning PT eval Toxic Metabolic encephalopathy 2/2 ICU delirium, medications recurrent reorientation and increase physical activity To give Seroquel and sitter in the room Morbid obesity advised to lose weight Hyperglycemia No Hx of DM diagnosis, HbA1c of 5.4 DC Lantus SSI DVT PPx Lovenox The patient will continue to need inpatient hospital stay pending weaning down oxygen and safe discharge plan Time Spent With Patient Time: Total time managing care of this patient today ____ minutes. Quality Stroke Does the patient have a stroke diagnosis?: No VTE Prior VTE?: No VTE Risk Level:: Medical - moderate - high VTE Device Contraindication: Treatment Not Indicated VTE Drug Contraindication: N/A - Med Ordered
[2022-05-08] MEDS: buPROPion HCl XL 150 MG TAB.ER.24H PO (13:02)
[2022-05-08 15:10] VITALS: BP 158/84; PULSE 101; RESP 20; TEMP 36.1; O2SAT 91
[2022-05-08 16:10] LABS: Glucose, Whole Blood 121 mg/dL (60-115)
[2022-05-08 19:02] VITALS: BP 122/74; PULSE 98; RESP 20; TEMP 36.7; O2SAT 90
[2022-05-08] MEDS: Fluticasone/Vilanterol 200/25 BLST.W.DEV 1 PUFF INHALE (20:05)
[2022-05-08] MEDS: Prazosin HCL 5 MG CAPSULE PO (21:50)
[2022-05-08] MEDS: PARoxetine HCL 40 MG TABLET PO (21:50)
[2022-05-08] MEDS: Gabapentin 400 MG CAPSULE PO (21:50)
[2022-05-08 23:21] VITALS: BP 91/52; PULSE 114; RESP 16; TEMP 36.6; O2SAT 98
[2022-05-09] VITALS (7 sets, daily range): BP systolic 97–140; BP diastolic 53–79; PULSE 65–115; RESP 16–20; TEMP 36.1–36.7; O2SAT 93–96; BMI 45.5
[2022-05-09] MEDS: oxyCODONE HCl Immed Release 5 MG TABLET PO ×3 (00:01→20:58)
[2022-05-09] MEDS: Omeprazole 40 MG CAPSULE.DR PO (06:02)
[2022-05-09] MEDS: Fluticasone/Vilanterol 200/25 BLST.W.DEV 1 PUFF INHALE ×2 (08:40→19:48)
[2022-05-09] MEDS: Montelukast Sodium 10 MG TABLET PO (09:29)
[2022-05-09] MEDS: Gabapentin 400 MG CAPSULE PO ×2 (09:29→20:57)
[2022-05-09] MEDS: lamoTRIgine 25 MG TABLET 50 MG PO ×2 (09:29→20:58)
[2022-05-09] MEDS: 0.9 % Sodium Chloride Flush 3 ML SYRINGE IVFLUSH (09:29)
[2022-05-09] MEDS: amLODIPine Besylate 10 MG TABLET PO (09:29)
[2022-05-09] MEDS: Doxycycline Monohydrate 100 MG CAPSULE PO ×2 (09:29→20:57)
[2022-05-09] MEDS: buPROPion HCl XL 150 MG TAB.ER.24H PO (09:29)
[2022-05-09 11:24] LABS: Glucose, Whole Blood 124 mg/dL (60-115)
[2022-05-09] MEDS: Enoxaparin Sodium 40 MG/0.4 ML SYRINGE SUBCUT (12:32)
--- NOTE | 2022-05-09 12:56 | HO.PM.IMPN ---
Subjective Subjective Date of Service: 05/09/22 Interval History: ?the patient was seen and evaluated this morning Comfortable and more interactive Very unsteady on her feet and needs placement to rehab No reported other overnight events. Physical Exam Vital Signs: Vital Signs: Last Vital Signs Temp 97.7 F 05/09/22 12:00 Pulse 108 H 05/09/22 12:00 Resp 18 05/09/22 12:00 BP 140/79 H 05/09/22 12:00 Pulse Ox 96 05/09/22 12:00 O2 Del Method 05/09/22 12:00 O2 Flow Rate 2 05/09/22 12:00 FiO2 40 05/03/22 14:35 BMI result Body Mass Index 45.5 Const: Other: Constitutional : Awake, interactive, not in distress Neck : Normal inspection, Supple Cardiovascular : RRR, no JVP, no lower extremity edema Respiratory : fair bilateral air entry,? no crackles, wheezes or rhonchi Gastrointestinal:? soft, lax, Normal bowel sounds, Non tender Skin : Warm, Dry Neurological : Alert & oriented to self, time and place, No focal deficit Objective Data Active Medications Acetaminophen (Acetaminophen 325 Mg Tablet) 325 mg PO Q6H PRN PRN Reason: Fever Last Admin: 05/07/22 16:18 Dose: 325 mg Documented By: BRODominguez Amlodipine Besylate (Amlodipine Besylate 10 Mg Tablet) 10 mg PO DAILY [facility]; Protocol Last Admin: 05/09/22 09:29 Dose: 10 mg Documented By: SHYAM Bupropion HCl (Bupropion Hcl Xl 150 Mg Tab.Er.24h) 150 mg PO DAILY [facility] Last Admin: 05/09/22 09:29 Dose: 150 mg Documented By: SHYAM Doxycycline Monohydrate (Doxycycline Monohydrate 100 Mg Capsule) 100 mg PO Q12H [facility] Last Admin: 05/09/22 09:29 Dose: 100 mg Documented By: SHYAM Enoxaparin Sodium (Enoxaparin Sodium 40 Mg/0.4 Ml Syringe) 40 mg SUBCUT Q24H [facility] Last Admin: 05/09/22 12:32 Dose: 40 mg Documented By: SHYAM Fluticasone/Vilanterol (Fluticasone/Vilanterol 200/25 Blst.W.Dev) 1 puff INHALE BID [facility] Last Admin: 05/09/22 08:40 Dose: 1 puff Documented By: JEFFERYOVILKobe Gabapentin (Gabapentin 400 Mg Capsule) 400 mg PO BID [facility] Last Admin: 05/09/22 09:29 Dose: 400 mg Documented By: SHYAM Hydroxyzine HCl (Hydroxyzine Hcl 50 Mg Tablet) 50 mg PO DAILY PRN PRN Reason: Anxiety Hydroxyzine HCl (Hydroxyzine Hcl 50 Mg Tablet) 100 mg PO BEDTIME PRN PRN Reason: Anxiety Lactulose (Lactulose 20 Gm/30 Ml Solution) 20 gm PO Q24H PRN PRN Reason: Constipation Last Admin: 04/30/22 00:02 Dose: 20 gm Documented By: RAMAKRISHNA-ANUPAM Lamotrigine (Lamotrigine 25 Mg Tablet) 50 mg PO BID [facility] Last Admin: 05/09/22 09:29 Dose: 50 mg Documented By: SHYAM Montelukast Sodium (Montelukast Sodium 10 Mg Tablet) 10 mg PO DAILY [facility] Last Admin: 05/09/22 09:29 Dose: 10 mg Documented By: SHYAM Nystatin (Nystatin Powder 15 Gm Bottle) 1 appl TOPICAL BID [facility]; Protocol Last Admin: 05/09/22 10:27 Dose: Not Given Documented By: SHYAM Non-Admin Reason: Patient Refused Omeprazole (Omeprazole 40 Mg Capsule.) 40 mg PO DAILY@0630 [facility] Last Admin: 05/09/22 06:02 Dose: 40 mg Documented By: ANGELA Ondansetron HCl (Ondansetron Hcl 4 Mg/2 Ml Vial) 4 mg IVPUSH Q4H PRN PRN Reason: Nausea Oxycodone HCl (Oxycodone Hcl Immed Release 5 Mg Tablet) 5 mg PO Q6H PRN PRN Reason: Pain, Moderate (Pain Scale 4-6 Last Admin: 05/09/22 12:45 Dose: 5 mg Documented By: SHYAM Paroxetine HCl (Paroxetine Hcl 40 Mg Tablet) 40 mg PO BEDTIME [facility] Last Admin: 05/08/22 21:50 Dose: 40 mg Documented By: ANGELA Pharmacy Consult (Consult Rx Perform Med Rec) 1 each MISCELLANE ONCE PRN PRN Reason: Consult order Prazosin HCl (Prazosin Hcl 5 Mg Capsule) 5 mg PO BEDTIME [facility]; Protocol Last Admin: 05/08/22 21:50 Dose: 5 mg Documented By: ANGELA Sodium Chloride (0.9 % Sodium Chloride Flush 3 Ml Syringe) 3 ml IVFLUSH QSHIFT [facility] Last Admin: 05/09/22 09:29 Dose: 3 ml Documented By: SHYAM Labs 05/06/22 06:33 05/06/22 07:00 Labs: Laboratory Results - last 24 hr 05/08/22 05/09/22 16:02 11:14 POC Glucose 121 H 124 H Assessment and Plan (1) Toxic metabolic encephalopathy: Status: Acute (2) Morbid obesity: Status: Acute (3) COVID-19: Status: Acute (4) Acute respiratory failure with hypoxia: Status: Acute Plan 41-year-old lady with underlying history of asthma, migraines, and depression admitted on 04/23/2022 with acute hypoxic respiratory failure secondary to MSSA pneumonia superinfection of prior COVID pneumonia resulting acute hypoxic respiratory failure requiring intubation and ventilatory support.? Hospital course significant for problem requirements for ventilatory support and development of acute cor pulmonale.? Now improving slowly. extubated 05/03/2022.? Passed swallow evaluation. CHF exacerbation, diastolic 2/2 Acute cor pulmonale Secondary to acute respiratory failure from COVID resolved with diuresis, now off diuretics wean O2 down as tolerated Acute hypoxic respiratory failure secondary to MSSA/COVID pneumonia requiring ventilatory support, extubated Finished steroid and antiviral therapy Continue doxycycline total of 10 days ID input appreciated, doxycycline p.o. Wean down to room air PHysical deconditioning PT eval Toxic Metabolic encephalopathy 2/2 ICU delirium, medications recurrent reorientation and increase physical activity improved back to baseline Atarax as needed Morbid obesity advised to lose weight Hyperglycemia No Hx of DM diagnosis, HbA1c of 5.4 DC Lantus SSI DVT PPx Lovenox The patient will continue to need inpatient hospital stay pending weaning down oxygen and safe discharge plan Time Spent With Patient Time: Total time managing care of this patient today ____ minutes. Quality Stroke Does the patient have a stroke diagnosis?: No VTE Prior VTE?: No VTE Risk Level:: Medical - moderate - high VTE Device Contraindication: Treatment Not Indicated VTE Drug Contraindication: N/A - Med Ordered
--- NOTE | 2022-05-09 18:17 | PC.NURSE ---
SITTER REMOVED PER MD PATIENT ON TELESITTER PATIENT COMPLAINED OF 10/10 ABD PAIN. PRN OXYCODONE 5MG PO GIVEN. SEE EMAR GOOD EFFECT NOTED. PATIENT INFORMED ON REASON SHE IS A HIGH FALL RISK, MEDICATION INFORMATION, AND CURRENT HEALTH STATUS.
[2022-05-09] MEDS: Prazosin HCL 5 MG CAPSULE PO (20:57)
[2022-05-09] MEDS: PARoxetine HCL 40 MG TABLET PO (20:58)
[2022-05-10] VITALS (7 sets, daily range): BP systolic 105–130; BP diastolic 56–64; PULSE 62–109; RESP 16–20; TEMP 36.1–36.8; O2SAT 93–98; BMI 46.7
[2022-05-10 00:53] LABS: Glucose, Whole Blood 114 mg/dL (60-115)
[2022-05-10] MEDS: oxyCODONE HCl Immed Release 5 MG TABLET PO ×2 (05:39→11:30)
[2022-05-10] MEDS: Omeprazole 40 MG CAPSULE.DR PO (05:39)
[2022-05-10 07:31] LABS: Glucose, Whole Blood 124 mg/dL (60-115)
[2022-05-10] MEDS: Fluticasone/Vilanterol 200/25 BLST.W.DEV 1 PUFF INHALE ×2 (08:08→19:25)
[2022-05-10] MEDS: lamoTRIgine 25 MG TABLET 50 MG PO ×2 (09:12→20:22)
[2022-05-10] MEDS: buPROPion HCl XL 150 MG TAB.ER.24H PO (09:12)
[2022-05-10] MEDS: Gabapentin 400 MG CAPSULE PO ×2 (09:12→20:22)
[2022-05-10] MEDS: amLODIPine Besylate 10 MG TABLET PO (09:12)
[2022-05-10] MEDS: Doxycycline Monohydrate 100 MG CAPSULE PO ×2 (09:12→20:22)
[2022-05-10] MEDS: Montelukast Sodium 10 MG TABLET PO (09:13)
[2022-05-10] MEDS: Nystatin Powder 15 GM BOTTLE 1 APPL TOPICAL ×2 (09:13→20:22)
--- NOTE | 2022-05-10 10:27 | MHC.CM.PN ---
PT is recommending Acute Rehab and [facility] may be able to offer a bed pending updated PT/OT PN (CM has requested this and announced this in ROUNDS). [employer] auth may also be needed and they may be closed today in observance of Day. CM will follow.
[2022-05-10 11:16] LABS: Glucose, Whole Blood 98 mg/dL (60-115)
[2022-05-10] MEDS: Enoxaparin Sodium 40 MG/0.4 ML SYRINGE SUBCUT (11:30)
--- NOTE | 2022-05-10 13:19 | MHC.CM.PN ---
CM met with Patient at bedside with the assist of a Software Configuration Specialist to discuss dc planning. Patient has accepted a bed offer from [facility] in [place] and CM has asked this facility to pursue auth from [facility]. CM will follow.
--- NOTE | 2022-05-10 14:36 | HO.PM.IMPN ---
Subjective Subjective Date of Service: 05/10/22 Interval History: ?the patient was seen and evaluated this morning feels better, eating well Comfortable and more interactive unsteady on her feet and needs placement to rehab No reported other overnight events. Physical Exam Vital Signs: Vital Signs: Last Vital Signs Temp 97.3 F 05/10/22 11:46 Pulse 82 05/10/22 11:46 Resp 20 05/10/22 11:46 BP 105/58 L 05/10/22 11:46 Pulse Ox 95 05/10/22 11:46 O2 Del Method 05/10/22 11:46 O2 Flow Rate 2 05/10/22 03:33 FiO2 40 05/03/22 14:35 BMI result Body Mass Index 46.7 Const: Other: Constitutional : Awake, interactive, not in distress Neck : Normal inspection, Supple Cardiovascular : RRR, no JVP, no lower extremity edema Respiratory : fair bilateral air entry,? no crackles, wheezes or rhonchi Gastrointestinal:? soft, lax, Normal bowel sounds, Non tender Skin : Warm, Dry Neurological : Alert & oriented to self, time and place, No focal deficit Objective Data Active Medications Acetaminophen (Acetaminophen 325 Mg Tablet) 325 mg PO Q6H PRN PRN Reason: Fever Last Admin: 05/07/22 16:18 Dose: 325 mg Documented By: LAURENT Amlodipine Besylate (Amlodipine Besylate 10 Mg Tablet) 10 mg PO DAILY [facility]; Protocol Last Admin: 05/10/22 09:12 Dose: 10 mg Documented By: ECHO Bupropion HCl (Bupropion Hcl Xl 150 Mg Tab.Er.24h) 150 mg PO DAILY [facility] Last Admin: 05/10/22 09:12 Dose: 150 mg Documented By: ECHO Doxycycline Monohydrate (Doxycycline Monohydrate 100 Mg Capsule) 100 mg PO Q12H [facility] Last Admin: 05/10/22 09:12 Dose: 100 mg Documented By: ECHO Enoxaparin Sodium (Enoxaparin Sodium 40 Mg/0.4 Ml Syringe) 40 mg SUBCUT Q24H [facility] Last Admin: 05/10/22 11:30 Dose: 40 mg Documented By: ERIC Fluticasone/Vilanterol (Fluticasone/Vilanterol 200/25 Blst.W.Dev) 1 puff INHALE BID [facility] Last Admin: 05/10/22 08:08 Dose: 1 puff Documented By: LUZ Gabapentin (Gabapentin 400 Mg Capsule) 400 mg PO BID [facility] Last Admin: 05/10/22 09:12 Dose: 400 mg Documented By: ECHO Hydroxyzine HCl (Hydroxyzine Hcl 50 Mg Tablet) 50 mg PO DAILY PRN PRN Reason: Anxiety Hydroxyzine HCl (Hydroxyzine Hcl 50 Mg Tablet) 100 mg PO BEDTIME PRN PRN Reason: Anxiety Lactulose (Lactulose 20 Gm/30 Ml Solution) 20 gm PO Q24H PRN PRN Reason: Constipation Last Admin: 04/30/22 00:02 Dose: 20 gm Documented By: RAMAKRISHNA-ANUPAM Lamotrigine (Lamotrigine 25 Mg Tablet) 50 mg PO BID [facility] Last Admin: 05/10/22 09:12 Dose: 50 mg Documented By: ECHO Montelukast Sodium (Montelukast Sodium 10 Mg Tablet) 10 mg PO DAILY [facility] Last Admin: 05/10/22 09:13 Dose: 10 mg Documented By: ECHO Nystatin (Nystatin Powder 15 Gm Bottle) 1 appl TOPICAL BID [facility]; Protocol Last Admin: 05/10/22 09:13 Dose: 1 appl Documented By: ECHO Omeprazole (Omeprazole 40 Mg Capsule.Dr) 40 mg PO DAILY@0630 [facility] Last Admin: 05/10/22 05:39 Dose: 40 mg Documented By: EWELINA Ondansetron HCl (Ondansetron Hcl 4 Mg/2 Ml Vial) 4 mg IVPUSH Q4H PRN PRN Reason: Nausea Oxycodone HCl (Oxycodone Hcl Immed Release 5 Mg Tablet) 5 mg PO Q6H PRN PRN Reason: Pain, Moderate (Pain Scale 4-6 Last Admin: 05/10/22 11:30 Dose: 5 mg Documented By: ERIC Paroxetine HCl (Paroxetine Hcl 40 Mg Tablet) 40 mg PO BEDTIME [facility] Last Admin: 05/09/22 20:58 Dose: 40 mg Documented By: EMILY Pharmacy Consult (Consult Rx Perform Med Rec) 1 each MISCELLANE ONCE PRN PRN Reason: Consult order Prazosin HCl (Prazosin Hcl 5 Mg Capsule) 5 mg PO BEDTIME [facility]; Protocol Last Admin: 05/09/22 20:57 Dose: 5 mg Documented By: EMILY Sodium Chloride (0.9 % Sodium Chloride Flush 3 Ml Syringe) 3 ml IVFLUSH QSHIFT [facility] Last Admin: 05/10/22 09:06 Dose: Not Given Documented By: ECHO Non-Admin Reason: No Access Labs 05/06/22 06:33 05/06/22 07:00 Labs: Laboratory Results - last 24 hr 05/10/22 05/10/22 05/10/22 00:47 07:11 10:42 POC Glucose 114 124 H 98 Assessment and Plan (1) Toxic metabolic encephalopathy: Status: Acute (2) Morbid obesity: Status: Acute (3) MSSA (methicillin susceptible Staphylococcus aureus) pneumonia: Status: Acute (4) Acute cor pulmonale: Status: Acute (5) Acute respiratory failure with hypoxia: Status: Acute (6) COVID-19: Status: Acute Plan 41-year-old lady with underlying history of asthma, migraines, and depression admitted on 04/23/2022 with acute hypoxic respiratory failure secondary to MSSA pneumonia superinfection of prior COVID pneumonia resulting acute hypoxic respiratory failure requiring intubation and ventilatory support.? Hospital course significant for problem requirements for ventilatory support and development of acute cor pulmonale.? Now improving slowly. extubated 05/03/2022.? Passed swallow evaluation. CHF exacerbation, diastolic 2/2 Acute cor pulmonale resolved with diuresis, now off diuretics wean O2 down as tolerated Acute hypoxic respiratory failure secondary to COVID infx and Pneumonia Finished steroid and antiviral therapy Continue doxycycline total of 10 days ID input appreciated, doxycycline p.o. Wean down to room air Patient not on isolation precautions anymore as she has recovered from the infection and had the infection more than 2 weeks ago PHysical deconditioning SNF placement Toxic Metabolic encephalopathy 2/2 ICU delirium, medications recurrent reorientation and increase physical activity improved back to baseline Atarax as needed Morbid obesity advised to lose weight Hyperglycemia No Hx of DM diagnosis, HbA1c of 5.4 DC Lantus SSI DVT PPx Lovenox The patient will continue to need inpatient hospital stay pending weaning down oxygen and safe discharge plan Time Spent With Patient Time: Total time managing care of this patient today ____ minutes. Quality Stroke Does the patient have a stroke diagnosis?: No VTE Prior VTE?: No VTE Risk Level:: Medical - moderate - high VTE Device Contraindication: Treatment Not Indicated VTE Drug Contraindication: N/A - Med Ordered
--- NOTE | 2022-05-10 16:05 | MHC.SL.SWA ---
Speech Pathologist Impression: Oropharyngeal dysphagia Risk of Aspiration Due to: History of Pneumonia Hx of Recent Extubation Dysphasia Diet Status: Recommend pt continue with CHOPPED/ADVANCED (NDD3) solids, UPGRADE liquids to THIN, pills WHOLE or CRUSHED in PUREE. Pt will need supervision during meal, is now more able to self feed. Recommend alternate liquids and solids during meal. Monitor for s/s of aspiration. Discontinue is patient becomes fatigued, and do not attempt if patient is lethargic. Diet order updated by [employer]. Notified Care Team (MD, RN, RD) of change via [employer] Message. Liquid Consistency and Strategies for Safe Swallow: Liquid Intake Recommendation: Thin Liquid Intake Strategies: Small Sips No Straws Solid Food Consistency: Dietary Recommendations: Chopped/Advanced (NDD3) Oral Medication Intake: Whole with Puree Please contact the pharmacy regarding appropriate crushable or liquid drug formulations that are available whenever modified delivery is recommended. Compensatory Strategies and Precautions to be Taken for Safe Swallow: Sitting Upright (90 deg) No Straw Small Bites and Sips Alternate Liquids/Solids Rate of Ingestion Change Avoid Specific Foods Supervision While Eating and Drinking for Safe Swallow: Total Supervision (1:1) Foods to Avoid: Hard, difficult to chew solids. Swallowing Recommended Treatments: Compens. Strategy Educat. Recommendation for Speech: Inpatient Speech Therapy Comment: Recommend speech therapy for dysphagia and voice at next level of care. Rn Urgent Care Clinican/Clinical Fellow: No Supervisory Statement: I have reviewed and agree with the student/clinical fellow's documentation: N/A Speech Language Pathologist: Ting Espinoza M.A., CCC-[employer]
[2022-05-10 17:56] LABS: Glucose, Whole Blood 130 mg/dL (60-115)
[2022-05-10] MEDS: PARoxetine HCL 40 MG TABLET PO (20:22)
[2022-05-10] MEDS: Prazosin HCL 5 MG CAPSULE PO (20:22)
[2022-05-11 02:16] VITALS: BP 104/54; PULSE 102; RESP 17; TEMP 36.1
[2022-05-11 03:05] VITALS: BP 116/60; PULSE 110; RESP 19; TEMP 36.6; O2SAT 93
[2022-05-11] MEDS: Acetaminophen 325 MG TABLET PO (06:18)
[2022-05-11 08:00] VITALS: BP 118/60; PULSE 73; RESP 20; TEMP 36.9; O2SAT 97
[2022-05-11] MEDS: Fluticasone/Vilanterol 200/25 BLST.W.DEV 1 PUFF INHALE (08:20)
[2022-05-11 08:32] VITALS: PULSE 87; RESP 20; O2SAT 96
[2022-05-11] MEDS: lamoTRIgine 25 MG TABLET 50 MG PO (09:35)
[2022-05-11] MEDS: buPROPion HCl XL 150 MG TAB.ER.24H PO (09:35)
[2022-05-11] MEDS: amLODIPine Besylate 10 MG TABLET PO (09:36)
[2022-05-11] MEDS: Gabapentin 400 MG CAPSULE PO (09:36)
[2022-05-11] MEDS: Montelukast Sodium 10 MG TABLET PO (09:36)
[2022-05-11] MEDS: Doxycycline Monohydrate 100 MG CAPSULE PO (09:36)
--- NOTE | 2022-05-11 09:37 | MHC.CM.PN ---
Per MD, Patient will be medically cleared for dc to Acute Rehab today. Patient will dc to [facility] today at noon via [facility]. Patient is aware of and in agreement with the dc plan. CM has informed Friend/Primary Contact/Rafaela @ [phone] of the dc plan.
[2022-05-11] MEDS: Nystatin Powder 15 GM BOTTLE 1 APPL TOPICAL (09:52)
--- NOTE | 2022-05-11 10:32 | MHC.CM.PN ---
CM has assisted Patient in completing a HCP.
[2022-05-11 10:54] VITALS: BP 123/67; PULSE 96; RESP 20; TEMP 36.9; O2SAT 95
--- NOTE | 2022-05-11 11:39 | PM.DS ---
DS: Providers Provider Date of Service: 05/11/22 Date of admission: 04/23/22 00:29 Primary care physician: Beti Gamble MD Consults: 04/23/22 08:33 Consult to Critical Care Routine Consulting Provider: Frandy De Leon Reason for consultation: Hypoxic failure from Covid, Asthma ex. on BiPaP for eval and rec. 05/02/22 07:26 Consult to Infectious Diseases Stat Consulting Provider: Deb Lopez Reason for consultation: NEW CASPO ORDER DS: Diagnosis Discharge Diagnosis (1) Toxic metabolic encephalopathy: Status: Acute (2) Morbid obesity: Status: Acute (3) MSSA (methicillin susceptible Staphylococcus aureus) pneumonia: Status: Acute (4) Acute cor pulmonale: Status: Acute (5) Acute respiratory failure with hypoxia: Status: Acute (6) Pneumonia due to COVID-19 virus: Status: Acute DS: Summary Hospital Course Hospital Course: The patient had prolonged hospital stay. For full details please return to EMR. Admission note HPI ?Ethiopian-speaking only, 41-year-old female with past medical history of asthma, migraine headaches, disc herniation presents to the hospital with complaints of shortness of breath, cough, as well as sputum production since yesterday.? Patient reports very difficulty breathing, with minimal exertion.? She is reporting reproducible chest pain in the center of her chest specially with coughing.? The pain is sharp, radiating to the back. ? denies any nausea, no vomiting, no diarrhea constipation: A urinary symptoms and no lower extremity edema.? On arrival to the ED patient was noted to be febrile with a temperature of a 100.2 degrees, heart rate of 112, respiratory rate of 24, satting 92% on room air, but patient did become hypoxic with 85%? currently on 4 L of oxygen satting 94%. Labs are significant for ? For WBC count of 15.7, chest CT angiogram shows no PE, no aortic aneurysm or dissection, shows moderate to severe bilateral patchy consolidative and ground-glass airspace opacities seen with COVID-19 pneumonia Hospital course The patient was admitted to medical floor for treatment of acute hypoxic respiratory failure secondary to COVID-19 infection. She did serrated the LAD urine the admission requiring ICU admission and intubation. Treated for both pneumonia and possible acute cor pulmonale with IV steroids, Lasix , bronchodilators nebulizers and antibiotics. Evaluated by Infectious cares disease as sputum culture grew MSSA and treated with IV antibiotics then changed to doxycycline for total of 10 days.. Extubated on 05/03/2022 and start weaning down oxygen requirement. She was in toxic metabolic encephalopathy at that point requiring reorientation, Atarax and was started on Lamictal by ICU team. Both oxygenation and mentation improved after coming back to the medical floor as she was weaned down to 2 L of oxygen and her mentation improved back to baseline. Evaluated by physical therapy who recommended short-term rehab as the patient has physical deconditioning. She was treated for hyperglycemia early in admission believed to be secondary to steroids and acute illness with A1c of 5.4. Does not require treatment at time of discharge. Continue Lamotrigine for 1 more week before discontinue Doxycycline for 2 more days Omeprazole 40 mg daily Time Spent with Patient Time attestation: Total time managing care of this patient today ____ minutes. Discharge coordination time: Greater than 30 minutes Quality: Safe Use of Opioids Does Pt have an Active Cancer Diagnosis on the Problem List?: No Quality: Stroke Does the patient have a stroke diagnosis?: No Physical Exam Vital Signs: Vital Signs: Last Vital Signs Temp 98.4 F 05/11/22 10:54 Pulse 96 05/11/22 10:54 Resp 20 05/11/22 10:54 BP 123/67 05/11/22 10:54 Pulse Ox 95 05/11/22 10:54 O2 Del Method 05/11/22 10:54 O2 Flow Rate 2 05/11/22 08:00 FiO2 40 05/03/22 14:35 BMI result Body Mass Index 46.7 Const: Other: Constitutional : Awake, interactive, not in distress Neck : Normal inspection, Supple Cardiovascular : RRR, no JVP, no lower extremity edema Respiratory : fair bilateral air entry,? no crackles, wheezes or rhonchi Gastrointestinal:? soft, lax, Normal bowel sounds, Non tender Skin : Warm, Dry Neurological : Alert & oriented to self, time and place, No focal deficit DS: Data Data Completed and Pending Labs on day of discharge: Laboratory Results - last 24 hr 05/10/22 17:52 POC Glucose 130 H Imaging Chest x-ray: Radiologist's impression: ITS Impressions Chest X-Ray 04/22/22 20:45 IMPRESSION: 1. Interval development of multiple nodular airspace opacities within both lungs since recent prior. Findings suggest multifocal pneumonia or alternatively septic emboli in the appropriate clinical setting. 2. No pleural effusions or pneumothorax. 3. Prominence of the right and left ade, possibly adenopathy. Chest CTA 04/22/22 22:45 IMPRESSION: * No pulmonary embolism. * No aortic aneurysm or dissection. * Moderate to severe bilateral patchy consolidative and groundglass airspace opacities. These imaging features can be seen with (COVID-19 or viral) pneumonia, though are nonspecific * and can occur with a variety of infectious and noninfectious processes. VTE: negative Chest X-Ray 04/23/22 18:12 IMPRESSION: 1. Diffuse patchy infiltrates throughout both lungs consistent with Covid disease. 2. Tip of endotracheal tube is 1.96 cm above the jesenia. 3. Enteric tube is below diaphragm in the stomach. Chest X-Ray 04/23/22 20:59 IMPRESSION: New right jugular central catheter tip is at atriocaval junction. No change in the endotracheal tube and enteric tube. Diffuse patchy infiltrates throughout both lungs. Chest X-Ray 04/27/22 08:38 IMPRESSION: * The ET tube is low in position with its tip at level of proximal right mainstem bronchus. Recommend ET tube repositioning. * Lungs are hypoinflated, suboptimally evaluated. However, there is overall decreased airspace and hazy opacity of the lungs. The JR team facilitator (Sherry Hurst) has confirmed at 8:[address] Muñiz is aware of the ET tube position.. Chest X-Ray 04/28/22 03:45 IMPRESSION: * Cardiomegaly and pulmonary venous congestion without overt edema. * Improving aeration within both lung * Trace left pleural effusion. Abdomen/Pelvis CT 04/29/22 11:07 IMPRESSION: 1. Respiratory motion artifact limits evaluation. Interval development of bilateral mid and lower lung field consolidations with air bronchograms. Subjacent atelectatic changes. 2. Status post cholecystectomy. 3. Right adnexal/ovarian hypodensities demonstrating fluid attenuation statistically representing a cyst measuring 2.[address] 04/29/22 11:07 IMPRESSION: 1. Respiratory motion artifact limits evaluation. Interval development of bilateral mid and lower lung field consolidations with air bronchograms. Subjacent atelectatic changes. 2. Status post cholecystectomy. 3. Right adnexal/ovarian hypodensities demonstrating fluid attenuation statistically representing a cyst measuring 2.1 cm. Chest X-Ray 05/01/22 08:00 IMPRESSION: 1. Stable support apparatus. 2. Persistent mild bibasilar airspace disease. Chest X-Ray 05/02/22 04:00 IMPRESSION: 1. Stable support apparatus. 2. Stable patchy bilateral airspace disease. Chest X-Ray 05/05/22 20:08 IMPRESSION: Hypoexpanded lungs with diffuse patchy airspace disease similar to the prior study. Abdomen/Pelvis CT 05/08/22 01:26 IMPRESSION: Mild inflammation along the duodenum, suggestive of duodenitis. Otherwise unremarkable study. Fleischner guidelines were followed. Discharge Plan Discharge Anticipated Discharge Date/Time: 05/11/22 11:32 Patient Disposition: Xfer Inpatient Rehab Fac Discharge Diagnosis: Respiratory failure 2/2 Covid infection MSSA Pneumonia Encephalopathy Referrals: [facility] [Outside] - 1 Week Beti Mccray MD [Primary Care Provider] - 1 Week Discharge Medications: New omeprazole 40 mg Capsule,Delayed Release(Dr/Ec) 40 mg PO DAILY@0630 Qty: 30 0RF lamotrigine 25 mg Tablet 50 mg PO BEDTIME Qty: 7 0RF doxycycline monohydrate 100 mg Capsule 100 mg PO Q12H Qty: 4 0RF Continued acetaminophen [Tylenol] 325 mg tablet 650 mg PO Q6H PRN (Reason: fever or pain) Qty: 14 0RF albuterol sulfate 90 mcg/actuation HFA aerosol inhaler 1 inh inhalation QID PRN (Reason: shortness of breath or wheezing) Qty: 8.5 0RF montelukast 10 mg tablet 1 tab PO DAILY bupropion HCl 150 mg tablet extended release 24 hr 1 tab PO QAM cholecalciferol (vitamin D3) 50 mcg (2,000 unit) tablet 2 tab PO DAILY riboflavin (vitamin B2) [Vitamin B-2] 100 mg tablet 2 tab PO BID gabapentin 400 mg capsule 1 cap PO BID hydroxyzine pamoate 50 mg capsule 50 mg PO DAILY PRN (Reason: Anxiety) hydroxyzine pamoate 50 mg capsule 100 mg PO BEDTIME PRN (Reason: Anxiety) prazosin 5 mg capsule 1 cap PO BEDTIME paroxetine HCl 40 mg tablet 1 tab PO BEDTIME budesonide-formoterol [Symbicort] 160-4.5 mcg/actuation HFA aerosol inhaler 1 puff PO BID Discharge Orders: Discharge Order (Routine); Ordered 05/11/22 Ordered By: Yeyo Dent Diet: Advance to usual diet Activity on Discharge: As tolerated Stand Alone Forms: Patient Portal Discharge page Care Plan Goals: Read below Health Concerns: Read below Plan of Treatment: Read below Assessment: You were admitted to the hospital for treatment of Covid19 infection with respirtatory failure requiring ICU admission and intubation. weaned down oxygen during hospital stay but noticed to be much weaker by physical therapy team who recommended short term rehab. Continue Lamotrigine for 1 more week before discontinue Doxycycline for 2 more days Omeprazole 40 mg daily
== END 2022-05-11 13:53 | DRG 130 ==
LOC: HO.ED 23:34 → HO.EDOVER 04-23 00:43 → HO.IMC 04-23 02:33 → HO.ICU 04-23 10:17 → HO.IMC 05-04 11:44
PROVIDERS: Anesthesiology; Internal Medicine; Internal Medicine Cardiovascular Disease; Internal Medicine Pulmonary Disease; Nurse Practitioner Family; Physician Assistant Medical; Admitting Provider Internal Medicine; Emergency Provider Emergency Medicine; PCP Internal Medicine; Visit Provider Student in an Organized Health Care Education/Training Program
DX: U07.1 COVID-19 (principal); J12.82 Pneumonia due to coronavirus disease 2019; G92.8 Other toxic encephalopathy; I50.33 Acute on chronic diastolic (congestive) heart failure; J15.211 Pneumonia due to Methicillin susceptible Staphylococcus aureus; J96.01 Acute respiratory failure with hypoxia; E83.39 Other disorders of phosphorus metabolism; Z68.43 Body mass index [BMI] 50.0-59.9, adult; I27.81 Cor pulmonale (chronic); G43.909 Migraine, unspecified, not intractable, without status migrainosus; F17.210 Nicotine dependence, cigarettes, uncomplicated; T38.0X5A Adverse effect of glucocorticoids and synthetic analogues, initial encounter; D72.829 Elevated white blood cell count, unspecified; E87.5 Hyperkalemia; E66.01 Morbid (severe) obesity due to excess calories; F05 Delirium due to known physiological condition; R73.9 Hyperglycemia, unspecified; B96.81 Helicobacter pylori [H. pylori] as the cause of diseases classified elsewhere; J45.909 Unspecified asthma, uncomplicated; F41.9 Anxiety disorder, unspecified; Z68.42 Body mass index [BMI] 45.0-49.9, adult; Z71.6 Tobacco abuse counseling; Z88.5 Allergy status to narcotic agent; Z79.899 Other long term (current) drug therapy
CPT/HCPCS: 0241U; 36415; 71045; 71046; 71250; 71275; 74176; 80048; 80053; 80202; 81001; 82040; 82436; 82728; 82803; 82947; 83036; 83605; 83615; 83735; 83880; 83935; 84100; 84145; 84300; 84484; 85025; 85027; 85379; 86140; 87040; 87070; 87077; 87186; 87205; 87449; 92526; 92610; 93005; 94002; 94003; 94640; 94660; 94799; 96361; 96374; 96375; 97110; 97116; 97162; 97163; 97166; 97530; 99285; C1758; J0171; J0295; J0456; J0637; J0696; J1100; J1170; J1650; J1885; J1940; J1956; J2250; J2251; J2270; J2405; J2920; J2930; J3010; J3370; J3371; J3411; J3475; Q9967

== ENCOUNTER 2022-05-15 03:09 | Emergency (ER) | payer OTHER, SELFPAY ==
--- NOTE | 2022-05-15 03:13 | ECG_ITS ---
Test Reason : CHEST PAIN Blood Pressure : / mmHG Vent. Rate : 082 BPM Atrial Rate : 082 BPM P-R Int : 128 ms QRS Dur : 082 ms QT Int : 354 ms P-R-T Axes : 041 021 022 degrees QTc Int : 413 ms Normal sinus rhythm Normal ECG When compared with ECG of 02-MAY-2022 21:02, No significant change was found Referred By: Generic ED Physician Electronically Signed By:FRANKIE NIXON MD
[2022-05-15 03:16] VITALS: BP 112/62; BP 120/89; PULSE 90; PULSE 92; RESP 20; TEMP 36.7; O2SAT 98; O2SAT 99; BMI 43.8
[2022-05-15 03:41] LABS: Basophils Percent Auto 0.5 % (0-2); Eosinophils Absolute Auto 0.3 X10*3/uL (0.0-0.4); Eosinophils Percent Auto 4.4 % (0-4); Hematocrit 37.8 % (37.0-47.0); Hemoglobin 12.3 g/dl (12.0-16.0); Imm Gran Abs Auto 0.02 X10*3/uL (0.00-0.03); Imm Gran Pct Auto 0.3 % (0.0-0.4); Lymphocytes Percent Auto 26.6 % (20-40); MANUAL DIFF FLAG NO; Mean Corpuscular HGB Conc 32.5 g/dl (31.0-35.0); Mean Corpuscular Hemoglobin 27.8 pg (27.0-33.0); Mean Corpuscular Volume 85.5 fL (80.0-98.0); Mean Platelet Volume 10.1 fL (9.4-12.3); Monocytes Absolute Auto 0.9 X10*3/uL (0.1-1.2); Neutrophils Absolute Auto 4.3 x10*3/uL (2.0-8.3); Neutrophils Percent Auto 56.2 % (45-73); Platelet Count 276 X10*3/uL (160-400); Red Blood Count 4.42 X10*6/uL (4.20-5.50); Red Cell Distribution Width 17.8 % (11.0-16.0); White Blood Count 7.6 X10*3/uL (4.8-10.8)
--- NOTE | 2022-05-15 03:43 | PC.NURSE ---
PT A&Ox4, reports 10/10 left sided CP radiating to right side. PT reports pain woke her up at 0200 this AM. IV established. Blood work drawn and sent to lab.
--- NOTE | 2022-05-15 03:46 | ED_ITS ---
HPI - Chest Pain General Chief Complaint: Chest Pain Stated Complaint: cp Time Seen by Provider: 05/15/22 03:43 Source: patient Mode of arrival: ambulatory Limitations: no limitations History of Present Illness HPI narrative: Patient 41 years old with history of asthma, recurrent headache, recent hypoxic respiratory failure secondary to COVID-19 discharged on 05/11/22 with MSSA pneumonia on doxycycline she comes here with left-sided chest pain, nausea, tremor the started prior to arrival with increased anxiety is saturating 98% at room air Related Data Home Medications Medication Instructions Recorded Confirmed budesonide-formoterol HFA 160 1 puff PO BID 09/18/21 04/22/22 mcg-4.5 mcg/actuation aerosol inhaler (Symbicort) gabapentin 400 mg capsule 1 cap PO BID 09/18/21 04/22/22 hydroxyzine pamoate 50 mg capsule 50 mg PO DAILY PRN Anxiety 09/18/21 04/22/22 hydroxyzine pamoate 50 mg capsule 100 mg PO BEDTIME PRN Anxiety 09/18/21 04/22/22 paroxetine HCl 40 mg tablet 1 tab PO BEDTIME 09/18/21 04/22/22 prazosin 5 mg capsule 1 cap PO BEDTIME 09/18/21 04/22/22 riboflavin (vitamin B2) 100 mg 2 tab PO BID 09/18/21 04/22/22 tablet (Vitamin B-2) bupropion HCl 150 mg 24 hr tablet, 1 tab PO QAM 04/22/22 04/22/22 extended release cholecalciferol (vitamin D3) 50 2 tab PO DAILY 04/22/22 04/22/22 mcg (2,000 unit) tablet montelukast 10 mg tablet 1 tab PO DAILY asthma 04/22/22 04/22/22 Previous Rx's Medication Instructions Recorded acetaminophen 325 mg tablet 650 mg PO Q6H PRN fever or pain 02/13/20 (Tylenol) #14 tabs albuterol sulfate 90 mcg/actuation 1 inh inhalation QID PRN shortness 04/06/22 aerosol inhaler of breath or wheezing #8.5 grams doxycycline monohydrate 100 mg 100 mg PO Q12H #4 caps 05/11/22 capsule lamotrigine 25 mg tablet 50 mg PO BEDTIME #7 tabs 05/11/22 omeprazole 40 mg capsule,delayed 40 mg PO DAILY@0630 #30 caps 05/11/22 release Allergies Allergy/AdvReac Type Severity Reaction Status Date / Time promethazine [From PHENERGAN] Allergy Unknown ITCHING Verified 04/22/22 19:30 codeine [CODEINE] AdvReac Unknown STOMACH Verified 04/22/22 19:30 UPSET morphine [MORPHINE] AdvReac Unknown MORE PAIN Verified 04/22/22 19:30 Review of Systems Review of Systems: Yes all other systems are reviewed and are negative PMFSH Past Medical History Medical History Asthma Depression Disc herniation H. pylori infection Migraine Sinus infection Surgical History History of Social History Social History Household Members: Family Housing: Apartment Do you presently have visiting nurse or other home services: No Alcohol intake: never Patient Tobacco Use Status: Current everyday Tobacco user Tobacco use type: Cigarette Smoked in Last 30 Days: No Second Hand Smoke Exposure: Yes Use of substances other than those prescribed or required for medical reasons: No Advance Directives: No Advance Directives Information Provided: No Patient : No service: No Current occupational status: employed Physical Exam Vital Signs: Vital Signs: Last Vital Signs Temp 98.1 F 05/15/22 03:16 Pulse 92 05/15/22 03:16 Resp 20 05/15/22 03:16 BP 120/89 05/15/22 03:16 Pulse Ox 98 05/15/22 03:16 O2 Del Method 05/15/22 03:16 BMI result Body Mass Index 43.8 Appearance: Alert. Oriented X3. No acute distress. Anxious complaining of nausea Eyes: PERRLA, No Nystagmus ENT: Pharynx normal. Oral Mucosa moist Neck: Normal inspection. Neck supple. CVS: Normal heart rate and rhythm. Pulses normal. Respiratory: No respiratory distress. Equal air entry bilateral, no wheezing/rales/rhonchi Abdomen: Soft and nontender. Bowel sounds are present, no mass palpable, no CVA tenderness Skin: Skin warm and dry. Normal skin color. Normal skin turgor. Extremities: No lower extremity edema. No calf tenderness Neuro: Oriented X 3. No motor deficit. No sensory deficit.No cerebellar signs , cranial nerves II-XII intact Medications Administered Discontinued Medications Generic Name Dose Route Start Last Admin Trade Name Boubacar PRN Reason Stop Dose Admin Ondansetron HCl 4 mg 05/15/22 03:57 05/15/22 04:16 Ondansetron Odt 4 Mg Tab.Kana MUÑOZ 05/15/22 03:58 4 mg ONCE ONE Administration Medical Decision Making Medical Decision Making [facility] Narrative: Patient just discharged after had COVID infection seems to be very anxious came with acute nausea dizziness and now single chest pain workup is negative chest x-ray negative COVID negative discharge patient home advised to continue her anxiety medications Lab Data [facility] Lab Attestation statement: I reviewed the patient's lab results. 05/15/22 03:36 05/15/22 03:36 Labs: Lab Results 05/15/22 05/15/22 05/15/22 Range/Units 03:20 03:36 03:36 WBC 7.6 (4.8-10.8) X10*3/uL RBC 4.42 (4.20-5.50) X10*6/uL Hgb 12.3 (12.0-16.0) g/dl Hct 37.8 (37.0-47.0) % MCV 85.5 (80.0-98.0) fL MCH 27.8 (27.0-33.0) pg MCHC 32.5 (31.0-35.0) g/dl RDW 17.8 H (11.0-16.0) % Plt Count 276 D (160-400) X10*3/uL MPV 10.1 (9.4-12.3) fL Immature Gran % (Auto) 0.3 (0.0-0.4) % Neut % (Auto) 56.2 (45-73) % Lymph % (Auto) 26.6 (20-40) % Imperial % (Auto) 12.0 H (2-11) % Eos % (Auto) 4.4 H (0-4) % Baso % (Auto) 0.5 (0-2) % Lymph # (Auto) 2.0 (1.2-4.9) X10*3/uL [place] # (Auto) 0.9 (0.1-1.2) X10*3/uL Eos # (Auto) 0.3 (0.0-0.4) X10*3/uL Baso # (Auto) 0.0 (0.0-0.2) X10*3/uL Abs Immat Gran (auto) 0.02 (0.00-0.03) X10*3/uL Absolute Neuts (auto) 4.3 (2.0-8.3) x10*3/uL Absolute Nucleated RBC 0.000 (0.0-0.012) X10*3/uL Nucleated RBC % (auto) 0.0 (0.0-0.2) /100WBC Sodium (135-145) mmol/L Potassium (3.3-5.1) mmol/L Chloride (96-108) mmol/L Carbon Dioxide (22-29) mmol/L Anion Gap (12-20) BUN (9-16) mg/dL Creatinine (0.5-1.4) mg/dL Estim Creat Clear Calc Estimated GFR Random Glucose (60-115) mg/dL Calcium (8.4-10.2) mg/dL Troponin I High Sens < 3.5 (<3.5-17.0) ng/L Influenza Type A (PCR) NEGATIVE (Negative) Influenza Type B (PCR) NEGATIVE (Negative) RSV RNA Qual (PCR) NEGATIVE (Negative) SARS-CoV-2 RNA (RT-PCR) NEGATIVE (Negative) 05/15/22 Range/Units 03:36 WBC (4.8-10.8) X10*3/uL RBC (4.20-5.50) X10*6/uL Hgb (12.0-16.0) g/dl Hct (37.0-47.0) % MCV (80.0-98.0) fL MCH (27.0-33.0) pg MCHC (31.0-35.0) g/dl RDW (11.0-16.0) % Plt Count (160-400) X10*3/uL MPV (9.4-12.3) fL Immature Gran % (Auto) (0.0-0.4) % Neut % (Auto) (45-73) % Lymph % (Auto) (20-40) % Imperial % (Auto) (2-11) % Eos % (Auto) (0-4) % Baso % (Auto) (0-2) % Lymph # (Auto) (1.2-4.9) X10*3/uL Imperial # (Auto) (0.1-1.2) X10*3/uL Eos # (Auto) (0.0-0.4) X10*3/uL Baso # (Auto) (0.0-0.2) X10*3/uL Abs Immat Gran (auto) (0.00-0.03) X10*3/uL Absolute Neuts (auto) (2.0-8.3) x10*3/uL Absolute Nucleated RBC (0.0-0.012) X10*3/uL Nucleated RBC % (auto) (0.0-0.2) /100WBC Sodium 139 (135-145) mmol/L Potassium 4.5 D (3.3-5.1) mmol/L Chloride 105 (96-108) mmol/L Carbon Dioxide 24 (22-29) mmol/L Anion Gap 15 (12-20) BUN 11 (9-16) mg/dL Creatinine 0.65 (0.5-1.4) mg/dL Estim Creat Clear Calc 125.9 Estimated GFR > 60 Random Glucose 135 H (60-115) mg/dL Calcium 9.2 (8.4-10.2) mg/dL Troponin I High Sens (<3.5-17.0) ng/L Influenza Type A (PCR) (Negative) Influenza Type B (PCR) (Negative) RSV RNA Qual (PCR) (Negative) SARS-CoV-2 RNA (RT-PCR) (Negative) Independent Interpretation I performed an independent interpretation of an: EKG Interpretation: Normal sinus rhythm heart rate 82 beats per minute normal interval normal axis no acute ST-T changes no acute ischemia Discharge Plan Discharge Clinical Impression: Atypical chest pain, Nausea & vomiting, Anxiety Patient Disposition: Home, Self-Care Instructions: Acute Nausea and Vomiting (ED), Anxiety (ED) Additional Instructions: Take medication for nausea as prescribed along with the anxiety medication Follow with PCP Prescriptions: No Action acetaminophen [Tylenol] 325 mg tablet 650 mg PO Q6H PRN (Reason: fever or pain) Qty: 14 0RF albuterol sulfate 90 mcg/actuation HFA aerosol inhaler 1 inh inhalation QID PRN (Reason: shortness of breath or wheezing) Qty: 8.5 0RF montelukast 10 mg tablet 1 tab PO DAILY bupropion HCl 150 mg tablet extended release 24 hr 1 tab PO QAM cholecalciferol (vitamin D3) 50 mcg (2,000 unit) tablet 2 tab PO DAILY omeprazole 40 mg Capsule,Delayed Release(Dr/Ec) 40 mg PO DAILY@0630 Qty: 30 0RF lamotrigine 25 mg Tablet 50 mg PO BEDTIME Qty: 7 0RF doxycycline monohydrate 100 mg Capsule 100 mg PO Q12H Qty: 4 0RF riboflavin (vitamin B2) [Vitamin B-2] 100 mg tablet 2 tab PO BID gabapentin 400 mg capsule 1 cap PO BID hydroxyzine pamoate 50 mg capsule 50 mg PO DAILY PRN (Reason: Anxiety) hydroxyzine pamoate 50 mg capsule 100 mg PO BEDTIME PRN (Reason: Anxiety) prazosin 5 mg capsule 1 cap PO BEDTIME paroxetine HCl 40 mg tablet 1 tab PO BEDTIME budesonide-formoterol [Symbicort] 160-4.5 mcg/actuation HFA aerosol inhaler 1 puff PO BID
[2022-05-15 03:54] LABS: Anion Gap 15 (12-20); Blood Urea Nitrogen 11 mg/dL (9-16); Calcium 9.2 mg/dL (8.4-10.2); Carbon Dioxide 24 mmol/L (22-29); Chloride 105 mmol/L (96-108); Creatinine Clr Calc Pharmacy 125.9; Estimated Glomerular Filt Rate > 60; Glucose Random 135 mg/dL (60-115); Potassium 4.5 mmol/L (3.3-5.1); Sodium 139 mmol/L (135-145)
[2022-05-15 04:01] LABS: Troponin-I High Sensitivity < 3.5 ng/L (<3.5-17.0)
[2022-05-15 04:02] LABS: Influenza A PCR NEGATIVE (Negative); Influenza B PCR NEGATIVE (Negative); Resp Syncy Virus RNA Qual PCR NEGATIVE (Negative); SARS COV2 PCR INHOUSE NEGATIVE (Negative)
[2022-05-15] MEDS: Ondansetron ODT 4 MG TAB.RAPDIS TRANSLINGU (04:16)
[2022-05-15 04:56] VITALS: BP 148/75; PULSE 94; RESP 24; TEMP 36.7; O2SAT 97
[2022-05-15] MEDS: Famotidine/PF 20 MG/2 ML VIAL IVPUSH (04:58)
[2022-05-15] MEDS: LORazepam 1 MG TABLET PO (04:59)
[2022-05-15] MEDS: Magnesium Hydrox/Alum Hydrox 30 ML ORAL.SUSP PO (04:59)
--- NOTE | 2022-05-15 05:06 | PC.NURSE ---
Pt medicated as ordered. IV line removed with no complication. Pt tolerated well. Discharge instructions reviewed with pt. Pt verbalizes understanding.
== END 2022-05-15 05:07 | disposition home or self-care (01) ==
PROVIDERS: Emergency Provider Internal Medicine
DX: R07.89 Other chest pain (principal); R11.2 Nausea with vomiting, unspecified; F41.9 Anxiety disorder, unspecified; Z20.822 Contact with and (suspected) exposure to COVID-19; Z20.828 Contact with and (suspected) exposure to other viral communicable diseases; J45.909 Unspecified asthma, uncomplicated; R51.9 Headache, unspecified; Z79.899 Other long term (current) drug therapy; F17.210 Nicotine dependence, cigarettes, uncomplicated; E66.01 Morbid (severe) obesity due to excess calories; Z68.41 Body mass index [BMI] 40.0-44.9, adult
CPT/HCPCS: 0241U; 36415; 80048; 84484; 85025; 93005; 96374; 99284; 99285

== ENCOUNTER 2022-05-22 04:21 | Emergency (ER) | payer OTHER, SELFPAY ==
--- NOTE | ~2022-05-22 | CT_ITS ---
EXAMINATION: CT ABDOMEN AND PELVIS WITHOUT CONTRAST CLINICAL INFORMATION: Diffuse abdominal pain, recent sepsis COMPARISON: 05/08/2022 TECHNIQUE: Multidetector volumetric imaging was performed from the superior aspect of the liver through the pubic symphysis. Sagittal and coronal reformatted images were obtained on the technologist's workstation. This CT examination was performed using dose optimization techniques as appropriate, variously including the following: *Automated exposure control *Adjustment of mA and/or kV according to patient size (this includes techniques or standardized protocols for targeted exams where dose is matched to indication/reason for exam; i.e. extremities or head) *Use of iterative reconstruction technique DLP: 935 mGy-cm FINDINGS: Suboptimal assessment in some regions due to motion artifact. LUNG BASES: Grossly unremarkable, suboptimally assessed due to motion artifact. LIVER, GALLBLADDER, AND BILIARY TREE: The liver is normal in size, shape, and attenuation. No focal hepatic lesion or biliary ductal dilatation is identified. Status post cholecystectomy. PANCREAS: Unremarkable. SPLEEN: Unremarkable. ADRENAL GLANDS: Unremarkable. KIDNEYS AND URETERS: The kidneys are normal in size, shape, and attenuation. No hydronephrosis, hydroureter, or calculi seen. No perinephric stranding. BLADDER: Unremarkable. GASTROINTESTINAL TRACT: No evidence of bowel obstruction or significant wall thickening. The appendix is unremarkable. No free fluid or free air is seen. ABDOMINAL WALL: No significant hernia is appreciated. LYMPH NODES: Normal. VASCULAR: Unremarkable. PELVIC VISCERA: Unremarkable. OSSEOUS STRUCTURES: Unremarkable. CT/CT abdomen pelvis wo IV con IMPRESSION: No acute findings identified in the abdomen/pelvis.
[2022-05-22 04:25] VITALS: BP 123/76; BP 125/59; PULSE 81; PULSE 90; RESP 16; TEMP 37.1; O2SAT 95; O2SAT 98; BMI 41.0
--- NOTE | 2022-05-22 04:31 | ED_ITS ---
HPI - Abdominal Pain General Chief Complaint: Abdominal Pain Stated Complaint: abd pain Time Seen by Provider: 05/22/22 04:30 History of Present Illness HPI narrative: Patient 41 years still with history of asthma, migraine, chronic back pain was admitted here on 04/23 12/14 or shortness of breath diagnosed as COVID pneumonia and duodenitis, patient was intubated at that time discharged on 05/11 comes here for abdominal pain Related Data Home Medications Medication Instructions Recorded Confirmed budesonide-formoterol HFA 160 1 puff PO BID 09/18/21 04/22/22 mcg-4.5 mcg/actuation aerosol inhaler (Symbicort) gabapentin 400 mg capsule 1 cap PO BID 09/18/21 04/22/22 hydroxyzine pamoate 50 mg capsule 50 mg PO DAILY PRN Anxiety 09/18/21 04/22/22 hydroxyzine pamoate 50 mg capsule 100 mg PO BEDTIME PRN Anxiety 09/18/21 04/22/22 paroxetine HCl 40 mg tablet 1 tab PO BEDTIME 09/18/21 04/22/22 prazosin 5 mg capsule 1 cap PO BEDTIME 09/18/21 04/22/22 riboflavin (vitamin B2) 100 mg 2 tab PO BID 09/18/21 04/22/22 tablet (Vitamin B-2) bupropion HCl 150 mg 24 hr tablet, 1 tab PO QAM 04/22/22 04/22/22 extended release cholecalciferol (vitamin D3) 50 2 tab PO DAILY 04/22/22 04/22/22 mcg (2,000 unit) tablet montelukast 10 mg tablet 1 tab PO DAILY asthma 04/22/22 04/22/22 Previous Rx's Medication Instructions Recorded acetaminophen 325 mg tablet 650 mg PO Q6H PRN fever or pain 02/13/20 (Tylenol) #14 tabs albuterol sulfate 90 mcg/actuation 1 inh inhalation QID PRN shortness 04/06/22 aerosol inhaler of breath or wheezing #8.5 grams doxycycline monohydrate 100 mg 100 mg PO Q12H #4 caps 05/11/22 capsule lamotrigine 25 mg tablet 50 mg PO BEDTIME #7 tabs 05/11/22 omeprazole 40 mg capsule,delayed 40 mg PO DAILY@0630 #30 caps 05/11/22 release sucralfate 1 gram tablet 1 g PO TID #90 tabs 05/22/22 Allergies Allergy/AdvReac Type Severity Reaction Status Date / Time promethazine [From PHENERGAN] Allergy Unknown ITCHING Verified 04/22/22 19:30 codeine [CODEINE] AdvReac Unknown STOMACH Verified 04/22/22 19:30 UPSET morphine [MORPHINE] AdvReac Unknown MORE PAIN Verified 04/22/22 19:30 Review of Systems Review of Systems Yes all other systems are reviewed and are negative PMFSH Past Medical History Medical History Asthma Depression Disc herniation H. pylori infection Migraine Morbid obesity Sinus infection Surgical History History of Social History Social History Household Members: Family Housing: Apartment Do you presently have visiting nurse or other home services: No Alcohol intake: never Patient Tobacco Use Status: Current everyday Tobacco user Tobacco use type: Cigarette Smoked in Last 30 Days: Yes Second Hand Smoke Exposure: Yes Use of substances other than those prescribed or required for medical reasons: No Advance Directives: Yes Advance Directives on File: Yes Advance Directives Date on File: 05/12/22 Patient : Yes service: No Current occupational status: employed Physical Exam ED Vital Signs: Vital Signs - 24 hr 05/22/22 04:25 05/22/22 04:33 05/22/22 05:29 Temperature 98.8 F 98.8 F 98.8 F Pulse Rate 90 90 98 Respiratory Rate 16 16 20 Blood Pressure 125/59 L 125/59 L 122/73 Pulse Oximetry 95 95 95 Oxygen Delivery Method Room Air Room Air Room Air BMI result Body Mass Index 41.0 Appearance: Alert. Oriented X3. No acute distress. Eyes: PERRLA, No Nystagmus ENT: Pharynx normal. Oral Mucosa moist Neck: Normal inspection. Neck supple. CVS: Normal heart rate and rhythm. Pulses normal. Respiratory: No respiratory distress. Equal air entry bilateral, no wheezing/rales/rhonchi Abdomen: Soft , upper abdominal tenderness no rebound or guarding Bowel sounds are present, no mass palpable, no CVA tenderness Skin: Skin warm and dry. Normal skin color. Normal skin turgor. Extremities: No lower extremity edema. No calf tenderness Neuro: Oriented X 3. No motor deficit. No sensory deficit.No cerebellar signs , cranial nerves II-XII intact Medical Decision Making Medical Decision Making [facility] Narrative: Patient lab stable CT scan negative for acute pathology patient pain improved of lidocaine viscous and IV lorazepam patient has symptoms secondary to gastritis and anxiety discharge patient home advised to continue omeprazole anxiety medication and will give her sucralfate Lab Data [facility] Lab Attestation statement: I reviewed the patient's lab results. 05/22/22 04:40 05/22/22 05:33 Labs: Lab Results 05/22/22 05/22/22 Range/Units 04:40 05:33 WBC 11.9 H (4.8-10.8) X10*3/uL RBC 4.43 (4.20-5.50) X10*6/uL Hgb 12.3 (12.0-16.0) g/dl Hct 37.9 (37.0-47.0) % MCV 85.6 (80.0-98.0) fL MCH 27.8 (27.0-33.0) pg MCHC 32.5 (31.0-35.0) g/dl RDW 17.3 H (11.0-16.0) % Plt Count 371 D (160-400) X10*3/uL MPV 9.7 (9.4-12.3) fL Immature Gran % (Auto) 0.4 (0.0-0.4) % Neut % (Auto) 66.6 (45-73) % Lymph % (Auto) 19.3 L (20-40) % Stafford % (Auto) 7.2 (2-11) % Eos % (Auto) 5.8 H (0-4) % Baso % (Auto) 0.7 (0-2) % Lymph # (Auto) 2.3 (1.2-4.9) X10*3/uL Stafford # (Auto) 0.9 (0.1-1.2) X10*3/uL Eos # (Auto) 0.7 H (0.0-0.4) X10*3/uL Baso # (Auto) 0.1 (0.0-0.2) X10*3/uL Abs Immat Gran (auto) 0.05 H (0.00-0.03) X10*3/uL Absolute Neuts (auto) 7.9 (2.0-8.3) x10*3/uL Absolute Nucleated RBC 0.000 (0.0-0.012) X10*3/uL Nucleated RBC % (auto) 0.0 (0.0-0.2) /100WBC Sodium 139 (135-145) mmol/L Potassium 4.0 (3.3-5.1) mmol/L Chloride 106 (96-108) mmol/L Carbon Dioxide 21 L (22-29) mmol/L Anion Gap 16 (12-20) BUN 9 (9-16) mg/dL Creatinine 0.68 (0.5-1.4) mg/dL Estim Creat Clear Calc 125.0 Estimated GFR > 60 Random Glucose 128 H (60-115) mg/dL Calcium 8.9 (8.4-10.2) mg/dL Magnesium 1.9 (1.6-2.6) mg/dL Total Bilirubin 0.5 (0.0-1.0) mg/dL AST 17 (5-31) U/L ALT 37 H (0-31) U/L Alkaline Phosphatase 116 (39-117) U/L Total Protein 5.8 L (6.5-8.0) g/dL Albumin 3.5 (3.5-5.0) g/dL Lipase 24 (8-78) U/L Medications Administered Discontinued Medications Generic Name Dose Route Start Last Admin Trade Name Freq PRN Reason Stop Dose Admin Al Hydroxide/Mg Hydroxide 30 ml 05/22/22 06:36 05/22/22 06:40 Magnesium Hydrox/Alum Hydrox 30 Ml Oral.Susp PO 05/22/22 06:37 30 ml ONCE ONE Administration Famotidine 20 mg 05/22/22 04:50 05/22/22 04:56 Famotidine/Pf 20 Mg/2 Ml Vial IVPUSH 05/22/22 04:51 20 mg ONCE ONE Administration Sodium Chloride 1,000 mls @ 999 mls/hr 05/22/22 04:34 05/22/22 05:10 Ns IV 05/22/22 05:34 Infused .Q1H1M ONE Infusion Lidocaine HCl 15 ml 05/22/22 06:36 05/22/22 06:40 Lidocaine Hcl Viscous 2 % 15 Ml Solution MUCOUS MEM 05/22/22 06:37 15 ml ONCE ONE Administration Lorazepam 1 mg 05/22/22 06:13 05/22/22 06:30 Lorazepam 2 Mg/Ml Vial IVPUSH 05/22/22 06:14 1 mg ONCE ONE Administration Morphine Sulfate 4 mg 05/22/22 04:34 05/22/22 04:56 Morphine Sulfate 4 Mg/Ml Cartridge IVPUSH 05/22/22 04:35 4 mg ONCE ONE Administration Protocol Ondansetron HCl 4 mg 05/22/22 04:34 05/22/22 04:58 Ondansetron Hcl 4 Mg/2 Ml Vial IVPUSH 05/22/22 04:35 Not Given ONCE ONE Discharge Plan Discharge Clinical Impression: Acute gastritis, Anxiety Patient Disposition: Home, Self-Care Instructions: Gastritis (ED), Anxiety (ED) Additional Instructions: Take medication for anxiety, continue omeprazole Start taking sucralfate 3 times daily Avoid fried/spicy food Phong medicaci?n para la ansiedad, continuar con omeprazol Comience a phong sucralfato 3 veces al d?a Evite los alimentos fritos/picantes Prescriptions: New sucralfate 1 gram tablet 1 g PO TID Qty: 90 0RF No Action acetaminophen [Tylenol] 325 mg tablet 650 mg PO Q6H PRN (Reason: fever or pain) Qty: 14 0RF albuterol sulfate 90 mcg/actuation HFA aerosol inhaler 1 inh inhalation QID PRN (Reason: shortness of breath or wheezing) Qty: 8.5 0RF montelukast 10 mg tablet 1 tab PO DAILY bupropion HCl 150 mg tablet extended release 24 hr 1 tab PO QAM cholecalciferol (vitamin D3) 50 mcg (2,000 unit) tablet 2 tab PO DAILY omeprazole 40 mg Capsule,Delayed Release(Dr/Ec) 40 mg PO DAILY@0630 Qty: 30 0RF lamotrigine 25 mg Tablet 50 mg PO BEDTIME Qty: 7 0RF doxycycline monohydrate 100 mg Capsule 100 mg PO Q12H Qty: 4 0RF riboflavin (vitamin B2) [Vitamin B-2] 100 mg tablet 2 tab PO BID gabapentin 400 mg capsule 1 cap PO BID hydroxyzine pamoate 50 mg capsule 50 mg PO DAILY PRN (Reason: Anxiety) hydroxyzine pamoate 50 mg capsule 100 mg PO BEDTIME PRN (Reason: Anxiety) prazosin 5 mg capsule 1 cap PO BEDTIME paroxetine HCl 40 mg tablet 1 tab PO BEDTIME budesonide-formoterol [Symbicort] 160-4.5 mcg/actuation HFA aerosol inhaler 1 puff PO BID Interventions: ED Discharge Assessment Last Done: 05/22/22 07:03 Discharge Date/Time: 05/22/22 07:04 Print Language: English
[2022-05-22 04:33] VITALS: BP 125/59; PULSE 90; RESP 16; TEMP 37.1; O2SAT 95
[2022-05-22] MEDS: 0.9 % Sodium Chloride 1,000 ML 999 ML IV (04:52)
[2022-05-22 04:53] LABS: Basophils Absolute Auto 0.1 X10*3/uL (0.0-0.2); Basophils Percent Auto 0.7 % (0-2); Eosinophils Absolute Auto 0.7 X10*3/uL (0.0-0.4); Eosinophils Percent Auto 5.8 % (0-4); Hematocrit 37.9 % (37.0-47.0); Hemoglobin 12.3 g/dl (12.0-16.0); Imm Gran Abs Auto 0.05 X10*3/uL (0.00-0.03); Imm Gran Pct Auto 0.4 % (0.0-0.4); Lymphocytes Absolute Auto 2.3 X10*3/uL (1.2-4.9); Lymphocytes Percent Auto 19.3 % (20-40); Mean Corpuscular HGB Conc 32.5 g/dl (31.0-35.0); Mean Corpuscular Hemoglobin 27.8 pg (27.0-33.0); Mean Corpuscular Volume 85.6 fL (80.0-98.0); Mean Platelet Volume 9.7 fL (9.4-12.3); Monocytes Absolute Auto 0.9 X10*3/uL (0.1-1.2); Monocytes Percent Auto 7.2 % (2-11); Neutrophils Absolute Auto 7.9 x10*3/uL (2.0-8.3); Neutrophils Percent Auto 66.6 % (45-73); Platelet Count 371 X10*3/uL (160-400); Red Blood Count 4.43 X10*6/uL (4.20-5.50); Red Cell Distribution Width 17.3 % (11.0-16.0); White Blood Count 11.9 X10*3/uL (4.8-10.8)
[2022-05-22 04:54] LABS: MANUAL DIFF FLAG NO
[2022-05-22] MEDS: Morphine Sulfate 4 MG/ML CARTRIDGE IVPUSH (04:56)
[2022-05-22] MEDS: Famotidine/PF 20 MG/2 ML VIAL IVPUSH (04:56)
[2022-05-22 05:29] VITALS: BP 122/73; PULSE 98; RESP 20; TEMP 37.1; O2SAT 95
[2022-05-22 06:10] LABS: Alanine Aminotransferase 37 U/L (0-31); Albumin Level 3.5 g/dL (3.5-5.0); Alkaline Phosphatase 116 U/L (39-117); Anion Gap 16 (12-20); Aspartate Amino Transferase 17 U/L (5-31); Bilirubin Total 0.5 mg/dL (0.0-1.0); Blood Urea Nitrogen 9 mg/dL (9-16); Calcium 8.9 mg/dL (8.4-10.2); Carbon Dioxide 21 mmol/L (22-29); Chloride 106 mmol/L (96-108); Estimated Glomerular Filt Rate > 60; Glucose Random 128 mg/dL (60-115); Lipase 24 U/L (8-78); Magnesium 1.9 mg/dL (1.6-2.6); Sodium 139 mmol/L (135-145); Total Protein 5.8 g/dL (6.5-8.0)
[2022-05-22] MEDS: LORazepam 2 MG/ML VIAL 1 MG IVPUSH (06:30)
[2022-05-22] MEDS: Magnesium Hydrox/Alum Hydrox 30 ML ORAL.SUSP PO (06:40)
[2022-05-22] MEDS: Lidocaine HCl Viscous 2 % 15 ML SOLUTION MUCOUS MEM (06:40)
--- NOTE | 2022-05-22 06:57 | PC.NURSE ---
Re-Assessment: Pt V/S are stable. Pt reports 9/10 pain in her stomach, this nurse administered meds as order, IV was inserted 22G on her right wrist. IVF are running as order. Pt was not able to communicate d/t pain. After the Ativan pt started to communicate. Pt labs were negative and the images. This nurse spoke with the patient to call family.
== END 2022-05-22 07:04 | disposition home or self-care (01) ==
PROVIDERS: Emergency Provider Internal Medicine
DX: K29.00 Acute gastritis without bleeding (principal); F41.9 Anxiety disorder, unspecified; R10.9 Unspecified abdominal pain; F17.210 Nicotine dependence, cigarettes, uncomplicated; E66.01 Morbid (severe) obesity due to excess calories; Z68.41 Body mass index [BMI] 40.0-44.9, adult
CPT/HCPCS: 36415; 74176; 80053; 83690; 83735; 85025; 96374; 96375; 99284; J2060; J2270; J2405

== ENCOUNTER 2022-05-26 22:40 | Emergency (ER) | payer OTHER, SELFPAY ==
--- NOTE | ~2022-05-26 | CT_ITS ---
EXAMINATION: CT ABDOMEN AND PELVIS WITH CONTRAST CLINICAL INFORMATION: Generalized abdominal pain and guarding COMPARISON: [address] scans of the abdomen pelvis dated 04/29/2022, 05/08/2022 and 05/22/2022 as well as additional scans dating back to 08/08/2012 TECHNIQUE: Multidetector volumetric images were obtained from the superior aspect of the liver through the pubic symphysis following administration 85 mL of Omnipaque 350 intravenous contrast. Additional set of images after one hour was obtained to better evaluate the urinary tract collecting systems Sagittal and coronal reformatted images were obtained on the technologist's workstation. Oral contrast: No This CT examination was performed using dose optimization techniques as appropriate, variously including the following: *Automated exposure control *Adjustment of mA and/or kV according to patient size (this includes techniques or standardized protocols for targeted exams where dose is matched to indication/reason for exam; i.e. extremities or head) *Use of iterative reconstruction technique DLP: 893 mGy-cm FINDINGS: LUNG BASES: The visualized lung bases are unremarkable. LIVER, GALLBLADDER, AND BILIARY TREE: The liver is enlarged at 18 cm in cephalocaudad dimension with decreased attenuation consistent with hepatic steatosis. No focal hepatic lesion or biliary ductal dilatation is present. Status post cholecystectomy PANCREAS: Unremarkable. SPLEEN: Unremarkable. ADRENAL GLANDS: Unremarkable. KIDNEYS AND URETERS: The kidneys are normal in size, shape, and attenuation. No hydronephrosis, hydroureter, or calculi seen. No perinephric stranding. There is a single calcification is seen in the region of the mid right ureter and ovarian vein measuring about 2 mm in size. This was present on the 12/10/2021 CT scan but not on any prior CT scans. Delayed imaging shows that this is not in the ureter but most likely a phlebolith in the ovarian vein. BLADDER: Empty, but no stones are seen GASTROINTESTINAL TRACT: The small and large bowel are unremarkable. Previously seen inflammatory change along the duodenum on 05/08/2022 study with some minimal thickening of the anterior pararenal fascia on the right is no longer seen. The appendix is unremarkable. ABDOMINAL WALL: No significant hernia is appreciated. LYMPH NODES: No retroperitoneal lymphadenopathy VASCULAR: Unremarkable. PELVIC VISCERA: The uterus and adnexa are unremarkable. OSSEOUS STRUCTURES: Degenerative changes seen at L4-L5 with vacuum phenomena CT/CT abdomen pelvis w IV con IMPRESSION: 1. A cause for the patient's generalized abdominal pain and guarding has not been found. 2. Incidental note made of an enlarged fatty liver, cholecystectomy and degenerative changes L4-L5. Fleischner guidelines were followed.
[2022-05-26 22:48] VITALS: BP 136/90; PULSE 106; O2SAT 98
[2022-05-26 23:03] VITALS: BP 138/84; PULSE 106; TEMP 36.8; O2SAT 96; BMI 47.7
[2022-05-27 05:08] VITALS: BP 104/61; PULSE 96; RESP 15; TEMP 36.4; O2SAT 96
[2022-05-27 07:26] LABS: MANUAL DIFF FLAG NO
[2022-05-27 07:39] LABS: Basophils Absolute Auto 0.1 X10*3/uL (0.0-0.2); Basophils Percent Auto 0.7 % (0-2); Eosinophils Absolute Auto 0.4 X10*3/uL (0.0-0.4); Eosinophils Percent Auto 3.2 % (0-4); Hematocrit 35.3 % (37.0-47.0); Hemoglobin 11.5 g/dl (12.0-16.0); Imm Gran Abs Auto 0.06 X10*3/uL (0.00-0.03); Imm Gran Pct Auto 0.5 % (0.0-0.4); Lymphocytes Absolute Auto 3.1 X10*3/uL (1.2-4.9); Lymphocytes Percent Auto 25.9 % (20-40); Mean Corpuscular HGB Conc 32.6 g/dl (31.0-35.0); Mean Corpuscular Volume 85.9 fL (80.0-98.0); Mean Platelet Volume 9.7 fL (9.4-12.3); Monocytes Absolute Auto 0.9 X10*3/uL (0.1-1.2); Monocytes Percent Auto 7.5 % (2-11); Neutrophils Absolute Auto 7.5 x10*3/uL (2.0-8.3); Neutrophils Percent Auto 62.2 % (45-73); Platelet Count 400 X10*3/uL (160-400); Red Blood Count 4.11 X10*6/uL (4.20-5.50); Red Cell Distribution Width 17.2 % (11.0-16.0); White Blood Count 12.1 X10*3/uL (4.8-10.8)
[2022-05-27 07:48] LABS: Alanine Aminotransferase 23 U/L (0-31); Albumin Level 3.2 g/dL (3.5-5.0); Alkaline Phosphatase 115 U/L (39-117); Anion Gap 14 (12-20); Aspartate Amino Transferase 13 U/L (5-31); Bilirubin Direct 0.2 mg/dL (0.0-0.5); Bilirubin Total 0.6 mg/dL (0.0-1.0); Blood Urea Nitrogen 10 mg/dL (9-16); Calcium 8.7 mg/dL (8.4-10.2); Carbon Dioxide 24 mmol/L (22-29); Chloride 105 mmol/L (96-108); Creatinine Clr Calc Pharmacy 151.3; Estimated Glomerular Filt Rate > 60; Glucose Random 98 mg/dL (60-115); Lipase 22 U/L (8-78); Potassium 3.6 mmol/L (3.3-5.1); Sodium 139 mmol/L (135-145); Total Protein 5.5 g/dL (6.5-8.0)
[2022-05-27] MEDS: Ketorolac Tromethamine 15 MG/ML VIAL IVPUSH (08:42)
[2022-05-27] MEDS: Pantoprazole Sodium 40 MG/10 ML VIAL IVPUSH (08:42)
[2022-05-27] MEDS: 0.9 % Sodium Chloride 1,000 ML 999 ML IV (08:42)
[2022-05-27 09:55] VITALS: BP 146/87; PULSE 90; RESP 18; TEMP 36.8; O2SAT 95
--- NOTE | 2022-05-27 09:55 | PC.NURSE ---
patient a&ox3, c/o 02/01 headache, vss, ivf continue to run slowly, pt is aware she needs to provide a urine to have further testing, call carvalho within reach, chavez continue to monitor
[2022-05-27 10:17] LABS: Appearance Urine Clear; Color Urine Yellow; Glucose Urine UA Negative (Negative); Leukocyte Esterase Urine Negative (Negative); Nitrite Urine Negative (Negative); PH 6.5 (5.0-9.0); Specific Gravity - Urine 1.015 (1.005-1.025); Urine Blood Negative (Negative); Urine Ketones Negative (Negative); Urine Protein Negative (Neg-Trace)
[2022-05-27 10:19] LABS: UPreg QC Valid YES; Urine Pregnancy NEGATIVE (NEGATIVE)
[2022-05-27] MEDS: iohexoL 350 MG/ML 100 ML INFUS..BTL 85 ML IV (10:40)
--- NOTE | 2022-05-27 10:44 | PC.NURSE ---
pt returned from [facility]
--- NOTE | 2022-05-27 11:32 | PC.NURSE ---
this nusrse assumed care of at at 1100 nurse called into room pt [id number] that she is having head pain, MAR reviewed, spoke with provider who will order APAP for pt at this time
--- NOTE | 2022-05-27 11:45 | ED_ITS ---
HPI - General Adult General Chief complaint: General Medical Stated complaint: abd pain, vomiting 3 days Time Seen by Provider: 05/27/22 07:06 History of Present Illness HPI narrative: Is a 41-year-old female presents with 3 days of abdominal pain, nausea, vomiting and migraine headaches. She patient describes her face symptoms is moderate to severe. There is no clear relieving or exacerbating features. She denies any fevers or chills. She denies any diarrhea constipation. Denies any urinary frequency or urgency. For abdominal pain she points to left upper quadrant. The pain does not radiate. Describes it as constant and pressure-like in nature. She denies any shortness of breath, cough, mucus production, rashes. Related Data Home Medications Medication Instructions Recorded Confirmed budesonide-formoterol HFA 160 1 puff PO BID 09/18/21 04/22/22 mcg-4.5 mcg/actuation aerosol inhaler (Symbicort) gabapentin 400 mg capsule 1 cap PO BID 09/18/21 04/22/22 hydroxyzine pamoate 50 mg capsule 50 mg PO DAILY PRN Anxiety 09/18/21 04/22/22 hydroxyzine pamoate 50 mg capsule 100 mg PO BEDTIME PRN Anxiety 09/18/21 04/22/22 paroxetine HCl 40 mg tablet 1 tab PO BEDTIME 09/18/21 04/22/22 prazosin 5 mg capsule 1 cap PO BEDTIME 09/18/21 04/22/22 riboflavin (vitamin B2) 100 mg 2 tab PO BID 09/18/21 04/22/22 tablet (Vitamin B-2) bupropion HCl 150 mg 24 hr tablet, 1 tab PO QAM 04/22/22 04/22/22 extended release cholecalciferol (vitamin D3) 50 2 tab PO DAILY 04/22/22 04/22/22 mcg (2,000 unit) tablet montelukast 10 mg tablet 1 tab PO DAILY asthma 04/22/22 04/22/22 Previous Rx's Medication Instructions Recorded acetaminophen 325 mg tablet 650 mg PO Q6H PRN fever or pain 02/13/20 (Tylenol) #14 tabs albuterol sulfate 90 mcg/actuation 1 inh inhalation QID PRN shortness 04/06/22 aerosol inhaler of breath or wheezing #8.5 grams doxycycline monohydrate 100 mg 100 mg PO Q12H #4 caps 05/11/22 capsule lamotrigine 25 mg tablet 50 mg PO BEDTIME #7 tabs 05/11/22 omeprazole 40 mg capsule,delayed 40 mg PO DAILY@0630 #30 caps 05/11/22 release sucralfate 1 gram tablet 1 g PO TID #90 tabs 05/22/22 dicyclomine 20 mg tablet 20 mg PO TID adominal meme #10 tabs 05/27/22 ondansetron 4 mg disintegrating 4 mg PO Q8H PRN nausea and 05/27/22 tablet vomiting #10 tabs pantoprazole 40 mg tablet,delayed 40 mg PO DAILY #14 tabs 05/27/22 release Allergies Allergy/AdvReac Type Severity Reaction Status Date / Time promethazine [From PHENERGAN] Allergy Unknown ITCHING Verified 04/22/22 19:30 codeine [CODEINE] AdvReac Unknown STOMACH Verified 04/22/22 19:30 UPSET morphine [MORPHINE] AdvReac Unknown MORE PAIN Verified 04/22/22 19:30 Review of Systems Review of Systems: Yes all other systems are reviewed and are negative Constitutional: Constitutional: Reports no additional constitutional complaints and Reports headache(s) Eyes: Eyes: Reports no additional eye complaints ENT: Reports system reviewed and no additional complaints, except as documented and Reports headache(s) Cardiovascular: Cardiovascular: Reports no additional cardiovascular complaints Respiratory: Respiratory: Reports no additional respiratory complaints Gastrointestinal: Gastrointestinal: Reports abdominal pain, Denies consti pation, Denies diarrhea and Denies vomiting Musculoskeletal: Musculoskeletal: Reports no additional musculoskeletal complaints Neurologic: Reports system reviewed and no additional complaints, except as documented and Reports headache(s) Psychiatric: Psychiatric: Reports no additional psychiatric complaints Endocrine: Endocrine: Reports no additional endocrine complaints Hematologic/Lymphatic: Hematologic/Lymphatic: Reports no additional hematologic/lymphatic complaints Allergic/Immunologic: Allergic/Immunologic: Reports no additional allergic/immunologic complaints [facility] Past Medical History Medical History Asthma Depression Disc herniation H. pylori infection Migraine Morbid obesity Sinus infection Surgical History History of Social History Social History Household Members: Family Housing: Apartment Do you presently have visiting nurse or other home services: No Alcohol intake: never Patient Tobacco Use Status: Current everyday Tobacco user Tobacco use type: Cigarette Smoked in Last 30 Days: Yes Second Hand Smoke Exposure: Yes Use of substances other than those prescribed or required for medical reasons: No Advance Directives: Yes Advance Directives on File: Yes Advance Directives Date on File: 05/12/22 Patient : No service: No Current occupational status: employed Physical Exam ED Vital Signs: Vital Signs - 24 hr 05/26/22 23:03 05/27/22 05:08 05/27/22 09:55 Temperature 98.2 F 97.6 F 98.2 F Pulse Rate 106 H 96 90 Respiratory Rate 15 18 Blood Pressure 138/84 104/61 146/87 H Pulse Oximetry 96 96 95 Oxygen Delivery Method Room Air Room Air Room Air 05/27/22 12:33 Temperature 98.2 F Pulse Rate 86 Respiratory Rate 20 Blood Pressure 140/73 H Pulse Oximetry 96 Oxygen Delivery Method Room Air BMI result Body Mass Index 47.7 Const General: cooperative, healthy appearing and no acute distress HENMT Head: Yes normal to inspection Eyes General: appearance normal, both eyes and all related structures Resp Effort & Inspection: normal respiratory effort Auscultation: clear to auscultation bilaterally Cardio Rate: regular rate Rhythm: regular rhythm GI Palpation (GI): Soft to palpation, Tenderness to palpation present (GI) other (Generalized) and Guarding due to palpation present (GI) General: Yes no CVA tenderness Back/Spine/Pelvis Back: no CVA tenderness Skin General skin exam: no rashes or lesions noted Neuro General: no focal motor deficits and CN's II-XI intact bilaterally Extrem General: Yes normal to inspection Psych Mental Status: mental status grossly normal Course Course Course Narrative: 41-year-old female presents with constellation of abdominal pain complaints as well as headache. Most likely is a viral syndrome. Abdominal exam did reveal some tenderness diffusely with guarding but no rebound. Order CT scan were provided with analgesics, IV fluids and re-evaluate. Reevaluation(s) Reevaluation #1: Patient currently describes her pain as a 6/10. She has developed some pain in her extremities as well but no focal neurologic deficits. Overall she is feeling much better and like to go home. I discussed her lab work imaging studies including the fatty liver changes. She will return for intractable pain, intractable nausea vomiting or any other concerning symptoms. Otherwise I will provide her with analgesics and antiemetics. Time: 12:59 Medications Administered Discontinued Medications Generic Name Dose Route Start Last Admin Trade Name Boubacar PRN Reason Stop Dose Admin Acetaminophen 975 mg 05/27/22 11:32 05/27/22 11:49 Acetaminophen 325 Mg Tablet PO 05/27/22 11:33 975 mg ONCE ONE Administration Sodium Chloride 1,000 mls @ 999 mls/hr 05/27/22 07:15 05/27/22 09:43 Ns IV 05/27/22 08:15 Infused .Q1H1M KRYSTLE Infusion Iohexol 85 ml 05/27/22 10:39 05/27/22 10:40 Iohexol 350 Mg/Ml 100 Ml Infus..Btl IV 05/27/22 10:40 85 ml ONCE ONE Administration Ketorolac Tromethamine 15 mg 05/27/22 07:10 05/27/22 08:42 Ketorolac Tromethamine 15 Mg/Ml Vial IVPUSH 05/27/22 07:11 15 mg ONCE ONE Administration Pantoprazole Sodium 40 mg 05/27/22 07:10 05/27/22 08:42 Pantoprazole Sodium 40 Mg/10 Ml Vial IVPUSH 05/27/22 07:11 40 mg ONCE ONE Administration Medical Decision Making Medical Decision Making MDM Narrative: 41-year-old female presenting with 2 complaints, migraine headache as well as abdominal pain. As far as her migraine headache is concerned this is somewhat typical for her. She has no focal neurologic deficits on exam. This is likely related to the underlying condition which is abdominal pain and discomfort today her examination did reveal guarding but no rebound. Doubt acute abdomen. Will order CT scan however given diffuse nature as well as guarding. For laboratory analysis, analgesics and re-evaluate. Differential Diagnosis Differential Diagnoses: The differential diagnosis associated with the presentation includes (Abdominal pain, colitis, gastroenteritis, IBS, IBD, tension headache, migraine headache, dehydration) Abdominal pain Admission/Observation Consideration of admission/observation: Escalation of care including admission/observation considered Lab Data MDM Lab Attestation statement: I reviewed the patient's lab results. 05/27/22 07:22 05/27/22 07:22 Labs: Lab Results 05/27/22 05/27/22 05/27/22 Range/Units 07:22 07:22 10:01 WBC 12.1 H (4.8-10.8) X10*3/uL RBC 4.11 L (4.20-5.50) X10*6/uL Hgb 11.5 L (12.0-16.0) g/dl Hct 35.3 L (37.0-47.0) % MCV 85.9 (80.0-98.0) fL MCH 28.0 (27.0-33.0) pg MCHC 32.6 (31.0-35.0) g/dl RDW 17.2 H (11.0-16.0) % Plt Count 400 (160-400) X10*3/uL MPV 9.7 (9.4-12.3) fL Immature Gran % (Auto) 0.5 H (0.0-0.4) % Neut % (Auto) 62.2 (45-73) % Lymph % (Auto) 25.9 (20-40) % [place] % (Auto) 7.5 (2-11) % Eos % (Auto) 3.2 (0-4) % Baso % (Auto) 0.7 (0-2) % Lymph # (Auto) 3.1 (1.2-4.9) X10*3/uL [place] # (Auto) 0.9 (0.1-1.2) X10*3/uL Eos # (Auto) 0.4 (0.0-0.4) X10*3/uL Baso # (Auto) 0.1 (0.0-0.2) X10*3/uL Abs Immat Gran (auto) 0.06 H (0.00-0.03) X10*3/uL Absolute Neuts (auto) 7.5 (2.0-8.3) x10*3/uL Absolute Nucleated RBC 0.000 (0.0-0.012) X10*3/uL Nucleated RBC % (auto) 0.0 (0.0-0.2) /100WBC Sodium 139 (135-145) mmol/L Potassium 3.6 (3.3-5.1) mmol/L Chloride 105 (96-108) mmol/L Carbon Dioxide 24 (22-29) mmol/L Anion Gap 14 (12-20) BUN 10 (9-16) mg/dL Creatinine 0.57 (0.5-1.4) mg/dL Estim Creat Clear Calc 151.3 Estimated GFR > 60 Random Glucose 98 (60-115) mg/dL Calcium 8.7 (8.4-10.2) mg/dL Total Bilirubin 0.6 (0.0-1.0) mg/dL Direct Bilirubin 0.2 (0.0-0.5) mg/dL AST 13 (5-31) U/L ALT 23 (0-31) U/L Alkaline Phosphatase 115 (39-117) U/L Total Protein 5.5 L (6.5-8.0) g/dL Albumin 3.2 L (3.5-5.0) g/dL Lipase 22 (8-78) U/L Urine Color Yellow Urine Appearance Clear Urine pH 6.5 (5.0-9.0) Ur Specific [place] 1.015 (1.005-1.025) Urine Protein Negative (Neg-Trace) mg/dL Urine Glucose (UA) Negative (Negative) mg/dL Urine Ketones Negative (Negative) mg/dL Urine Blood Negative (Negative) Urine Nitrite Negative (Negative) Ur Leukocyte Esterase Negative (Negative) Urine Test (NEGATIVE) 05/27/22 Range/Units 10:01 WBC (4.8-10.8) X10*3/uL RBC (4.20-5.50) X10*6/uL Hgb (12.0-16.0) g/dl Hct (37.0-47.0) % MCV (80.0-98.0) fL MCH (27.0-33.0) pg MCHC (31.0-35.0) g/dl RDW (11.0-16.0) % Plt Count (160-400) X10*3/uL MPV (9.4-12.3) fL Immature Gran % (Auto) (0.0-0.4) % Neut % (Auto) (45-73) % Lymph % (Auto) (20-40) % [place] % (Auto) (2-11) % Eos % (Auto) (0-4) % Baso % (Auto) (0-2) % Lymph # (Auto) (1.2-4.9) X10*3/uL [place] # (Auto) (0.1-1.2) X10*3/uL Eos # (Auto) (0.0-0.4) X10*3/uL Baso # (Auto) (0.0-0.2) X10*3/uL Abs Immat Gran (auto) (0.00-0.03) X10*3/uL Absolute Neuts (auto) (2.0-8.3) x10*3/uL Absolute Nucleated RBC (0.0-0.012) X10*3/uL Nucleated RBC % (auto) (0.0-0.2) /100WBC Sodium (135-145) mmol/L Potassium (3.3-5.1) mmol/L Chloride (96-108) mmol/L Carbon Dioxide (22-29) mmol/L Anion Gap (12-20) BUN (9-16) mg/dL Creatinine (0.5-1.4) mg/dL Estim Creat Clear Calc Estimated GFR Random Glucose (60-115) mg/dL Calcium (8.4-10.2) mg/dL Total Bilirubin (0.0-1.0) mg/dL Direct Bilirubin (0.0-0.5) mg/dL AST (5-31) U/L ALT (0-31) U/L Alkaline Phosphatase (39-117) U/L Total Protein (6.5-8.0) g/dL Albumin (3.5-5.0) g/dL Lipase (8-78) U/L Urine Color Urine Appearance Urine pH (5.0-9.0) Ur Specific [place] (1.005-1.025) Urine Protein (Neg-Trace) mg/dL Urine Glucose (UA) (Negative) mg/dL Urine Ketones (Negative) mg/dL Urine Blood (Negative) Urine Nitrite (Negative) Ur Leukocyte Esterase (Negative) Urine Test NEGATIVE (NEGATIVE) Radiology Impression Discussion of test interpretation with radiology: I have reviewed the radiologist's reading. (CT/CT abdomen pelvis w IV con IMPRESSION: 1. A cause for the patient's generalized abdominal pain and guarding has not been found. 2. Incidental note made of an enlarged fatty liver, cholecystectomy and degenerative changes L4-L5. Personally reviewed images agree [facility] interp) Discharge Plan Discharge Clinical Impression: Abdominal pain, Fatty liver, Migraine Patient Disposition: Home, Self-Care Instructions: Abdominal Pain (ED) Additional Instructions: You were seen in the emergency department for abdominal pain and migraine headache. Had routine laboratory analysis, CT scan of the abdomen and pelvis. He did have a mildly elevated white blood cell count likely indication of either inflammation or infection. That a CT scan which identified fatty liver changes but otherwise not identify an etiology for her abdominal discomfort. I will discharge you with medication to reduce the acid in her stomach, nausea medication as well as abdominal pain medication. You should follow-up with her primary care doctor within 1 week for re-evaluation. Should her pain worsen, intractable pain, intractable nausea vomiting or other concerning symptoms, he should seek care immediately. Prescriptions: New ondansetron 4 mg tablet,disintegrating 4 mg PO Q8H PRN (Reason: nausea and vomiting) Qty: 10 0RF pantoprazole 40 mg tablet,delayed release (DR/EC) 40 mg PO DAILY Qty: 14 0RF dicyclomine 20 mg tablet 20 mg PO TID Qty: 10 0RF No Action acetaminophen [Tylenol] 325 mg tablet 650 mg PO Q6H PRN (Reason: fever or pain) Qty: 14 0RF albuterol sulfate 90 mcg/actuation HFA aerosol inhaler 1 inh inhalation QID PRN (Reason: shortness of breath or wheezing) Qty: 8.5 0RF montelukast 10 mg tablet 1 tab PO DAILY bupropion HCl 150 mg tablet extended release 24 hr 1 tab PO QAM cholecalciferol (vitamin D3) 50 mcg (2,000 unit) tablet 2 tab PO DAILY omeprazole 40 mg Capsule,Delayed Release(Dr/Ec) 40 mg PO DAILY@0630 Qty: 30 0RF lamotrigine 25 mg Tablet 50 mg PO BEDTIME Qty: 7 0RF doxycycline monohydrate 100 mg Capsule 100 mg PO Q12H Qty: 4 0RF sucralfate 1 gram tablet 1 g PO TID Qty: 90 0RF riboflavin (vitamin B2) [Vitamin B-2] 100 mg tablet 2 tab PO BID gabapentin 400 mg capsule 1 cap PO BID hydroxyzine pamoate 50 mg capsule 50 mg PO DAILY PRN (Reason: Anxiety) hydroxyzine pamoate 50 mg capsule 100 mg PO BEDTIME PRN (Reason: Anxiety) prazosin 5 mg capsule 1 cap PO BEDTIME paroxetine HCl 40 mg tablet 1 tab PO BEDTIME budesonide-formoterol [Symbicort] 160-4.5 mcg/actuation HFA aerosol inhaler 1 puff PO BID Print Language: Irish
[2022-05-27] MEDS: Acetaminophen 325 MG TABLET 975 MG PO (11:49)
[2022-05-27 12:33] VITALS: BP 140/73; PULSE 86; RESP 20; TEMP 36.8; O2SAT 96
== END 2022-05-27 13:19 | disposition home or self-care (01) ==
PROVIDERS: Emergency Provider Emergency Medicine
DX: R10.84 Generalized abdominal pain (principal); G43.909 Migraine, unspecified, not intractable, without status migrainosus; K76.0 Fatty (change of) liver, not elsewhere classified; R11.2 Nausea with vomiting, unspecified; F17.210 Nicotine dependence, cigarettes, uncomplicated; Z79.899 Other long term (current) drug therapy
CPT/HCPCS: 36415; 74177; 80048; 80076; 81003; 81025; 83690; 85025; 96361; 96374; 96375; 99284; J1885; Q9967

== ENCOUNTER 2022-07-13 17:28 | Observation (INO) | payer OTHER, SELFPAY ==
--- NOTE | ~2022-07-13 | XR_ITS ---
EXAMINATION: XR CHEST CLINICAL INFORMATION: Shortness of breath COMPARISON: 05/05/2022 as well as other chest radiographs dating back to a PA and lateral chest from 07/08/2019 TECHNIQUE: Frontal view of the chest was obtained. FINDINGS: Lungs are better expanded than the prior study. Previously seen right IJ catheter has been removed. There is mild cardiac enlargement. There is peribronchial thickening and a mild increase in interstitial markings. No focal consolidations or pleural effusions are seen. XR/XR chest 1V IMPRESSION: Mild cardiomegaly with peribronchial thickening and increased interstitial markings. Findings could represent mild CHF. Please correlate clinically.
--- NOTE | ~2022-07-13 | XR_ITS ---
EXAMINATION: XR ABDOMEN KUB CLINICAL INDICATION: Abdominal pain. COMPARISON: CT scan of the abdomen and pelvis dated 05/27/2022. TECHNIQUE: AP view of the abdomen. FINDINGS: There is a nonobstructive bowel gas pattern. Mild to moderate stool seen within the colon distally to the rectum. Surgical clips overlie the right upper quadrant. No abnormal calcification. The osseous structures are unremarkable. XR/XR KUB IMPRESSION: 1. Nonobstructive bowel gas pattern. 2. Mild to moderate colonic stool burden.
--- NOTE | 2022-07-13 17:32 | ECG_ITS ---
Test Reason : cp Blood Pressure : / mmHG Vent. Rate : 121 BPM Atrial Rate : 121 BPM P-R Int : 130 ms QRS Dur : 084 ms QT Int : 324 ms P-R-T Axes : 043 028 018 degrees QTc Int : 460 ms Sinus tachycardia Possible Left atrial enlargement Borderline ECG When compared with ECG of 15-MAY-2022 03:19, No significant change was found Referred By: Generic ED Physician Electronically Signed By:FRANKIE NIXON MD
[2022-07-13 17:36] VITALS: BP 145/87; PULSE 121; RESP 19; TEMP 36.8; O2SAT 90; BMI 38.2
--- NOTE | 2022-07-13 17:50 | ED.SOB ---
HPI - SOB/Dyspnea General Chief Complaint: Dyspnea Stated Complaint: difficulty breathing Time Seen by Provider: 07/13/22 17:50 Source: patient Mode of arrival: EMS Limitations: no limitations History of Present Illness HPI Narrative: Patient with history of asthma been having increased shortness of breath for last 5 days with low-grade fever coughing with mucoid phlegm saturating 88% on arrival patient use nebulizing treatment and inhaler at home without much relief no other family member sick no chest pain or palpitation no leg edema or calf pain Related Data Home Medications Medication Instructions Recorded Confirmed budesonide-formoterol HFA 160 1 puff PO BID 09/18/21 07/13/22 mcg-4.5 mcg/actuation aerosol inhaler (Symbicort) gabapentin 400 mg capsule 1 cap PO BID 09/18/21 07/13/22 hydroxyzine pamoate 50 mg capsule 50 mg PO DAILY 09/18/21 07/13/22 hydroxyzine pamoate 50 mg capsule 100 mg PO BEDTIME PRN Anxiety 09/18/21 07/13/22 paroxetine HCl 40 mg tablet 1 tab PO BEDTIME 09/18/21 07/13/22 prazosin 5 mg capsule 1 cap PO BEDTIME 09/18/21 07/13/22 bupropion HCl 150 mg 24 hr tablet, 1 tab PO DAILY 04/22/22 07/13/22 extended release montelukast 10 mg tablet 1 tab PO DAILY asthma 04/22/22 07/13/22 cyanocobalamin (vitamin B-12) 1 tab sublingual DAILY 07/13/22 07/13/22 1,000 mcg sublingual tablet dicyclomine 20 mg tablet 20 mg PO TID adominal pain 07/13/22 07/13/22 meloxicam 15 mg tablet 1 tab PO DAILY PRN pain 07/13/22 07/13/22 nicotine (polacrilex) 4 mg gum 1 gum PO Q2H PRN Nicotine Cravings 07/13/22 07/13/22 nicotine 21 mg/24 hr daily 1 patch topical DAILY 07/13/22 07/13/22 transdermal patch riboflavin (vitamin B2) 100 mg 2 tab PO BID 07/13/22 07/13/22 tablet (Vitamin B-2) Previous Rx's Medication Instructions Recorded albuterol sulfate 90 mcg/actuation 1 inh inhalation QID PRN shortness 04/06/22 aerosol inhaler of breath or wheezing #8.5 grams pantoprazole 40 mg tablet,delayed 40 mg PO DAILY #14 tabs 05/27/22 release Allergies Allergy/AdvReac Type Severity Reaction Status Date / Time promethazine [From PHENERGAN] Allergy Unknown ITCHING Verified 07/13/22 17:36 codeine [CODEINE] AdvReac Unknown STOMACH Verified 07/13/22 17:36 UPSET morphine [MORPHINE] AdvReac Unknown MORE PAIN Verified 07/13/22 17:36 Review of Systems Review of Systems: Yes all other systems are reviewed and are negative [facility] Past Medical History Medical History Asthma Depression Disc herniation H. pylori infection Migraine Morbid obesity Sinus infection Surgical History History of Social History Social History Household Members: Family Housing: Apartment Do you presently have visiting nurse or other home services: No Alcohol intake: never Patient Tobacco Use Status: Current everyday Tobacco user Tobacco use type: Cigarette Second Hand Smoke Exposure: Yes Advance Directives: Yes Advance Directives on File: Yes Advance Directives Date on File: 05/12/22 Nutrition Risks: No Nutritional Risk service: No Current occupational status: employed Physical Exam Vital Signs: Vital Signs: Last Vital Signs Temp 98.0 F 07/13/22 19:52 Pulse 75 07/14/22 00:53 Resp 24 H 07/14/22 00:53 BP 105/50 L 07/13/22 19:52 Pulse Ox 96 07/14/22 00:53 O2 Del Method 07/14/22 00:53 O2 Flow Rate 2 07/14/22 00:53 BMI result Body Mass Index 38.2 Appearance: Alert. Oriented X3. Moderate respiratory distress. ENT: Pharynx normal. Oral Mucosa moist Neck: Normal inspection. Neck supple. CVS: Normal heart rate and rhythm. Pulses normal. Respiratory: Moderate respiratory distress bilateral wheezing prolonged expiration decreased air entry bilateral Abdomen: Soft and nontender. Bowel sounds are present, no mass palpable, no CVA tenderness Skin: Skin warm and dry. Normal skin color. Normal skin turgor. Extremities: No lower extremity edema. No calf tenderness Neuro: Oriented X 3. No motor deficit. Medications Administered Generic Name Dose Route Start Last Admin Trade Name Fremario alberto PRN Reason Stop Dose Admin Methylprednisolone Sodium Succinate 40 mg 07/13/22 22:00 07/13/22 23:07 Methylprednisolone Sod Succ 40 Mg/Ml Vial IVPUSH 40 mg Q12H KRYSTLE Administration Sodium Chloride 3 ml 07/14/22 00:00 07/14/22 00:39 0.9 % Sodium Chloride Flush 3 Ml Syringe IVFLUSH Not Given QSHIFT KRYSTLE Discontinued Medications Generic Name Dose Route Start Last Admin Trade Name Daveq PRN Reason Stop Dose Admin Albuterol Sulfate 5 mg 07/13/22 17:51 07/13/22 17:55 Albuterol Sulfate (0.083%) 2.5 Mg/3 Ml Vial.Neb INHALE 07/13/22 17:52 5 mg ONCE ONE Administration Albuterol Sulfate 2.5 mg/ 0 mg 07/13/22 17:39 07/13/22 17:54 Ipratropium [place] 0.5 mg INHALE 07/13/22 17:40 2.5 each ONCE ONE Administration Dexamethasone Sodium Phosphate 10 mg 07/13/22 17:52 07/13/22 18:09 Dexamethasone Sod Phosphate 10 Mg/Ml Vial IVPUSH 07/13/22 17:53 10 mg ONCE ONE Administration Furosemide 40 mg 07/13/22 21:50 07/13/22 23:07 Furosemide 40 Mg/4 Ml Vial IVPUSH 07/13/22 21:51 40 mg ONCE ONE Administration Protocol Hydromorphone HCl 1 mg 07/13/22 17:58 07/13/22 18:11 Hydromorphone Hcl 1 Mg/Ml Syringe IVPUSH 07/13/22 17:59 1 mg ONCE ONE Administration Protocol Sodium Chloride 1,000 mls @ 999 mls/hr 07/13/22 17:52 07/14/22 00:51 Ns IV 07/13/22 18:52 Infused .Q1H1M ONE Infusion Magnesium Sulfate 2 gm in 50 mls @ 100 mls/hr 07/13/22 17:54 07/13/22 18:46 Magnesium Sulfate/H2o IV 07/13/22 18:23 Infused ONCE ONE Infusion Ondansetron HCl 4 mg 07/13/22 17:57 07/13/22 18:11 Ondansetron Hcl 4 Mg/2 Ml Vial IVPUSH 07/13/22 17:58 4 mg ONCE ONE Administration Oxycodone HCl 5 mg 07/13/22 23:20 07/13/22 23:59 Oxycodone Hcl Immed Release 5 Mg Tablet PO 07/13/22 23:21 5 mg ONCE ONE Administration Medical Decision Making Medical Decision Making [facility] Narrative: Patient with status asthmaticus with hypoxia will admit patient for IV steroids, oxygen and nebulizing treatment patient oxygen improved after nebulizing treatment saturating 96% on 2 L Differential Diagnosis Status asthmaticus/bronchitis/CHF/pneumonia/pleural effusion Consult Healthcare Provider Management of the patient was discussed with: Hospitalist Lab Data [facility] Lab Attestation statement: I reviewed the patient's lab results. 07/13/22 18:03 07/13/22 18:03 Labs: Lab Results 07/13/22 07/13/22 07/13/22 Range/Units 18:03 18:03 18:03 WBC 20.1 H (4.8-10.8) X10*3/uL RBC 4.58 (4.20-5.50) X10*6/uL Hgb 12.4 (12.0-16.0) g/dl Hct 37.9 (37.0-47.0) % MCV 82.8 (80.0-98.0) fL MCH 27.1 (27.0-33.0) pg MCHC 32.7 (31.0-35.0) g/dl RDW 15.1 (11.0-16.0) % Plt Count 402 H (160-400) X10*3/uL MPV 10.1 (9.4-12.3) fL Immature Gran % (Auto) 0.6 H (0.0-0.4) % Neut % (Auto) 82.7 H (45-73) % Lymph % (Auto) 7.8 L (20-40) % [place] % (Auto) 4.0 (2-11) % Eos % (Auto) 4.4 H (0-4) % Baso % (Auto) 0.5 (0-2) % Lymph # (Auto) 1.6 (1.2-4.9) X10*3/uL [place] # (Auto) 0.8 (0.1-1.2) X10*3/uL Eos # (Auto) 0.9 H (0.0-0.4) X10*3/uL Baso # (Auto) 0.1 (0.0-0.2) X10*3/uL Abs Immat Gran (auto) 0.12 H (0.00-0.03) X10*3/uL Absolute Neuts (auto) 16.6 H (2.0-8.3) x10*3/uL Absolute Nucleated RBC 0.000 (0.0-0.012) X10*3/uL Nucleated RBC % (auto) 0.0 (0.0-0.2) /100WBC Sodium 136 (135-145) mmol/L Potassium 4.2 (3.3-5.1) mmol/L Chloride 105 (96-108) mmol/L Carbon Dioxide 22 (22-29) mmol/L Anion Gap 13 (12-20) BUN 8 L (9-16) mg/dL Creatinine 0.77 (0.5-1.4) mg/dL Estim Creat Clear Calc 114.1 Estimated GFR > 60 Random Glucose 144 H (60-115) mg/dL Lactic Acid 0.8 (0.5-2.0) mmol/L Calcium 8.8 (8.4-10.2) mg/dL Total Bilirubin 0.3 (0.0-1.0) mg/dL AST 20 (5-31) U/L ALT 20 (0-31) U/L Alkaline Phosphatase 115 (39-117) U/L Total Protein 6.4 L (6.5-8.0) g/dL Albumin 3.6 (3.5-5.0) g/dL Influenza Type A (PCR) (Negative) Influenza Type B (PCR) (Negative) RSV RNA Qual (PCR) (Negative) SARS-CoV-2 RNA (RT-PCR) (Negative) 07/13/22 Range/Units 18:26 WBC (4.8-10.8) X10*3/uL RBC (4.20-5.50) X10*6/uL Hgb (12.0-16.0) g/dl Hct (37.0-47.0) % MCV (80.0-98.0) fL MCH (27.0-33.0) pg MCHC (31.0-35.0) g/dl RDW (11.0-16.0) % Plt Count (160-400) X10*3/uL MPV (9.4-12.3) fL Immature Gran % (Auto) (0.0-0.4) % Neut % (Auto) (45-73) % Lymph % (Auto) (20-40) % [place] % (Auto) (2-11) % Eos % (Auto) (0-4) % Baso % (Auto) (0-2) % Lymph # (Auto) (1.2-4.9) X10*3/uL [place] # (Auto) (0.1-1.2) X10*3/uL Eos # (Auto) (0.0-0.4) X10*3/uL Baso # (Auto) (0.0-0.2) X10*3/uL Abs Immat Gran (auto) (0.00-0.03) X10*3/uL Absolute Neuts (auto) (2.0-8.3) x10*3/uL Absolute Nucleated RBC (0.0-0.012) X10*3/uL Nucleated RBC % (auto) (0.0-0.2) /100WBC Sodium (135-145) mmol/L Potassium (3.3-5.1) mmol/L Chloride (96-108) mmol/L Carbon Dioxide (22-29) mmol/L Anion Gap (12-20) BUN (9-16) mg/dL Creatinine (0.5-1.4) mg/dL Estim Creat Clear Calc Estimated GFR Random Glucose (60-115) mg/dL Lactic Acid (0.5-2.0) mmol/L Calcium (8.4-10.2) mg/dL Total Bilirubin (0.0-1.0) mg/dL AST (5-31) U/L ALT (0-31) U/L Alkaline Phosphatase (39-117) U/L Total Protein (6.5-8.0) g/dL Albumin (3.5-5.0) g/dL Influenza Type A (PCR) NEGATIVE (Negative) Influenza Type B (PCR) NEGATIVE (Negative) RSV RNA Qual (PCR) NEGATIVE (Negative) SARS-CoV-2 RNA (RT-PCR) NEGATIVE (Negative) Critical Care Time Critical Care Time Critical Care Time: Yes Total Critical Care Time: 55 Attestation: The patient was critically ill with a high probability of imminent or life threatening deterioration. I spent greater than 60 minutes of discontinuous time evaluating the patient,delivering critical care at the bedside, discussing and evaluating pertinent data with consultants. Critical care time does not include time spent performing separately billable procedures or teaching. Total time spent performing critical care was 55 minutes. Discharge Plan Discharge Clinical Impression: Asthmaticus, status, Acute respiratory failure with hypoxia Patient Disposition: Admitted As Inpatient
[2022-07-13] MEDS: Albuterol Sulfate (0.083%) 2.5 MG/3 ML VIAL.NEB 5 MG INHALE (17:55)
[2022-07-13 17:56] VITALS: PULSE 109; RESP 28; O2SAT 88
[2022-07-13 18:09] LABS: MANUAL DIFF FLAG NO
[2022-07-13] MEDS: dexAMETHasone sod phosphate 10 MG/ML VIAL IVPUSH (18:09)
[2022-07-13] MEDS: Magnesium Sulfate/H2O 2 GM/50 ML PIGGYBACK IV (18:09)
[2022-07-13] MEDS: 0.9 % Sodium Chloride 1,000 ML 999 ML IV (18:09)
[2022-07-13] MEDS: HYDROmorphone HCl 1 MG/ML SYRINGE IVPUSH (18:11)
[2022-07-13] MEDS: ondansetron HCL 4 MG/2 ML VIAL IVPUSH (18:11)
[2022-07-13 18:23] LABS: Lactic Acid 0.8 mmol/L (0.5-2.0)
[2022-07-13 18:27] LABS: Basophils Absolute Auto 0.1 X10*3/uL (0.0-0.2); Basophils Percent Auto 0.5 % (0-2); Eosinophils Absolute Auto 0.9 X10*3/uL (0.0-0.4); Eosinophils Percent Auto 4.4 % (0-4); Hematocrit 37.9 % (37.0-47.0); Hemoglobin 12.4 g/dl (12.0-16.0); Imm Gran Abs Auto 0.12 X10*3/uL (0.00-0.03); Imm Gran Pct Auto 0.6 % (0.0-0.4); Lymphocytes Absolute Auto 1.6 X10*3/uL (1.2-4.9); Lymphocytes Percent Auto 7.8 % (20-40); Mean Corpuscular HGB Conc 32.7 g/dl (31.0-35.0); Mean Corpuscular Hemoglobin 27.1 pg (27.0-33.0); Mean Corpuscular Volume 82.8 fL (80.0-98.0); Mean Platelet Volume 10.1 fL (9.4-12.3); Monocytes Absolute Auto 0.8 X10*3/uL (0.1-1.2); Neutrophils Absolute Auto 16.6 x10*3/uL (2.0-8.3); Neutrophils Percent Auto 82.7 % (45-73); Platelet Count 402 X10*3/uL (160-400); Red Blood Count 4.58 X10*6/uL (4.20-5.50); Red Cell Distribution Width 15.1 % (11.0-16.0); White Blood Count 20.1 X10*3/uL (4.8-10.8)
[2022-07-13 18:28] LABS: Alanine Aminotransferase 20 U/L (0-31); Albumin Level 3.6 g/dL (3.5-5.0); Alkaline Phosphatase 115 U/L (39-117); Anion Gap 13 (12-20); Aspartate Amino Transferase 20 U/L (5-31); Bilirubin Total 0.3 mg/dL (0.0-1.0); Blood Urea Nitrogen 8 mg/dL (9-16); Calcium 8.8 mg/dL (8.4-10.2); Carbon Dioxide 22 mmol/L (22-29); Chloride 105 mmol/L (96-108); Creatinine Clr Calc Pharmacy 114.1; Estimated Glomerular Filt Rate > 60; Glucose Random 144 mg/dL (60-115); Potassium 4.2 mmol/L (3.3-5.1); Sodium 136 mmol/L (135-145); Total Protein 6.4 g/dL (6.5-8.0)
[2022-07-13 19:09] LABS: Influenza A PCR NEGATIVE (Negative); Influenza B PCR NEGATIVE (Negative); Resp Syncy Virus RNA Qual PCR NEGATIVE (Negative); SARS COV2 PCR INHOUSE NEGATIVE (Negative)
[2022-07-13 19:52] VITALS: BP 105/50; PULSE 99; RESP 19; TEMP 36.7; O2SAT 96
--- NOTE | 2022-07-13 20:37 | PHA.MEDREC ---
Pharmacy Consult ? Medication Reconciliation Pharmacy has completed the medication reconciliation.
--- NOTE | 2022-07-13 22:19 | P.HPHOSP_ITS ---
History of Present Illness Date of Service: 07/13/22 Chief Complaint: shortness of breath ?Lithuanian-speaking only, 41-year-old female with past medical history of asthma, migraine headaches, disc herniation presents to the hospital with complaints of shortness of breath, cough, as well as sputum production for the past 5 days. pt states that she went to the medical physics researcher today, and was told that she needs ambulatory oxygen, which was ordered for her but as soon as she got home, she had increased respiratory distress, apparently a VNA? Was with her who checked her O2 which was in the high 80s, but patient states that she took a breathing treatment with no improvement, has significant wheezing, difficulty breathing and therefore EMS was called and patient was brought into the hospital. She denies any fever, chills, reports no abdominal pain nausea or vomiting, no diarrhea constipation, no chest pain. No urinary symptoms and no lower extremity edema. Will to the noted to be hypoxic in the 88-90% on room air, placed on 2 L of cannula satting 92%. Respiratory rate of 28. otherwise significant for heart rate of 120 BP stable Labs are significant for WBC count of 20.1, otherwise unremarkable Chest x-ray shows mild cardiomegaly with peribronchial thickening and increased interstitial marking Review of Systems Review of Systems: Yes all other systems are reviewed and are negative [facility] Medical History Asthma Depression Disc herniation H. pylori infection Migraine Morbid obesity Sinus infection Surgical History History of Social History Household Members: Family Housing: Apartment Do you presently have visiting nurse or other home services: No Alcohol intake: never Patient Tobacco Use Status: Current everyday Tobacco user Tobacco use type: Cigarette Second Hand Smoke Exposure: Yes Advance Directives: Yes Advance Directives on File: Yes Advance Directives Date on File: 05/12/22 Nutrition Risks: No Nutritional Risk service: No Current occupational status: employed Meds Allergies Allergy/AdvReac Type Severity Reaction Status Date / Time promethazine [From PHENERGAN] Allergy Unknown ITCHING Verified 07/13/22 17:36 codeine [CODEINE] AdvReac Unknown STOMACH Verified 07/13/22 17:36 UPSET morphine [MORPHINE] AdvReac Unknown MORE PAIN Verified 07/13/22 17:36 Active Medications: Current Medications Acetaminophen (Acetaminophen 325 Mg Tablet) 650 mg PO Q6H PRN PRN Reason: Pain, Mild (Pain Scale 1-3) Methylprednisolone Sodium Succinate (Methylprednisolone Sod Succ 40 Mg/Ml Vial) 40 mg IVPUSH Q12H KRYSTLE Ondansetron HCl (Ondansetron Hcl 4 Mg/2 Ml Vial) 4 mg IVPUSH Q8H PRN PRN Reason: Nausea and Vomiting Sodium Chloride (0.9 % Sodium Chloride Flush 3 Ml Syringe) 3 ml IVFLUSH QSHIFT KRYSTLE Home Medications Medication Instructions Recorded Confirmed Last Taken Type budesonide-formoterol HFA 160 1 puff PO BID 09/18/21 07/13/22 07/13/22 History mcg-4.5 mcg/actuation aerosol inhaler (Symbicort) gabapentin 400 mg capsule 1 cap PO BID 09/18/21 07/13/22 07/13/22 History hydroxyzine pamoate 50 mg capsule 50 mg PO DAILY 09/18/21 07/13/22 07/13/22 History hydroxyzine pamoate 50 mg capsule 100 mg PO BEDTIME PRN Anxiety 09/18/21 07/13/22 09/16/21 History paroxetine HCl 40 mg tablet 1 tab PO BEDTIME 09/18/21 07/13/22 07/12/22 History prazosin 5 mg capsule 1 cap PO BEDTIME 09/18/21 07/13/22 07/12/22 History bupropion HCl 150 mg 24 hr tablet, 1 tab PO DAILY 04/22/22 07/13/22 07/13/22 History extended release montelukast 10 mg tablet 1 tab PO DAILY asthma 04/22/22 07/13/22 07/12/22 History cyanocobalamin (vitamin B-12) 1 tab sublingual DAILY 07/13/22 07/13/22 07/13/22 History 1,000 mcg sublingual tablet dicyclomine 20 mg tablet 20 mg PO TID adominal pain 07/13/22 07/13/22 07/13/22 History meloxicam 15 mg tablet 1 tab PO DAILY PRN pain 07/13/22 07/13/22 Unknown History nicotine (polacrilex) 4 mg gum 1 gum PO Q2H PRN Nicotine Cravings 07/13/22 07/13/22 Unknown History nicotine 21 mg/24 hr daily 1 patch topical DAILY 07/13/22 07/13/22 07/13/22 History transdermal patch riboflavin (vitamin B2) 100 mg 2 tab PO BID 07/13/22 07/13/22 07/13/22 History tablet (Vitamin B-2) Physical Exam Vital Signs and Narrative: Vital Signs: Last Vital Signs Temp 98.0 F 07/13/22 19:52 Pulse 99 07/13/22 19:52 Resp 19 07/13/22 19:52 BP 105/50 L 07/13/22 19:52 Pulse Ox 96 07/13/22 19:52 O2 Del Method 07/13/22 19:52 O2 Flow Rate 2 07/13/22 19:52 BMI result Body Mass Index 38.2 Const: General: cooperative and no acute distress Orientation/consci ousness: patient oriented x3 Eyes: General: appearance normal, both eyes and all related structures Resp: Other: pursed lip breathing tachypneic w minimal effort rhonchi B/L Effort & Inspection: normal respiratory effort Cardio: Rate: regular rate Rhythm: regular rhythm GI: Palpation (GI): Soft to palpation Auscultation: normal bowel sounds Skin: General skin exam: no rashes or lesions noted Neuro: General: patient oriented x3 Cognition (Neuro): normal cognition Extrem: Other: Has no evidence of lower extremity edema General: Yes normal to inspection and Yes no pedal edema Results Labs 07/13/22 18:03 07/13/22 18:03 Labs: Laboratory Results - last 24 hr 07/13/22 07/13/22 07/13/22 18:03 18:03 18:03 MCV 82.8 MCH 27.1 MCHC 32.7 RDW 15.1 Plt Count 402 H MPV 10.1 Immature Gran % (Auto) 0.6 H Neut % (Auto) 82.7 H Lymph % (Auto) 7.8 L [place] % (Auto) 4.0 Eos % (Auto) 4.4 H Baso % (Auto) 0.5 Lymph # (Auto) 1.6 [place] # (Auto) 0.8 Eos # (Auto) 0.9 H Baso # (Auto) 0.1 Abs Immat Gran (auto) 0.12 H Absolute Neuts (auto) 16.6 H Absolute Nucleated RBC 0.000 Nucleated RBC % (auto) 0.0 Anion Gap 13 Estim Creat Clear Calc 114.1 Estimated GFR > 60 Random Glucose 144 H Lactic Acid 0.8 Calcium 8.8 Total Bilirubin 0.3 AST 20 ALT 20 Alkaline Phosphatase 115 Total Protein 6.4 L Albumin 3.6 Influenza Type A (PCR) Influenza Type B (PCR) RSV RNA Qual (PCR) SARS-CoV-2 RNA (RT-PCR) 07/13/22 18:26 MCV MCH MCHC RDW Plt Count MPV Immature Gran % (Auto) Neut % (Auto) Lymph % (Auto) [place] % (Auto) Eos % (Auto) Baso % (Auto) Lymph # (Auto) [place] # (Auto) Eos # (Auto) Baso # (Auto) Abs Immat Gran (auto) Absolute Neuts (auto) Absolute Nucleated RBC Nucleated RBC % (auto) Anion Gap Estim Creat Clear Calc Estimated GFR Random Glucose Lactic Acid Calcium Total Bilirubin AST ALT Alkaline Phosphatase Total Protein Albumin Influenza Type A (PCR) NEGATIVE Influenza Type B (PCR) NEGATIVE RSV RNA Qual (PCR) NEGATIVE SARS-CoV-2 RNA (RT-PCR) NEGATIVE Imaging Radiologist's Impressions: Impressions Chest X-Ray 07/13/22 20:20 IMPRESSION: Mild cardiomegaly with peribronchial thickening and increased interstitial markings. Findings could represent mild CHF. Please correlate clinically. Assessment and Plan (1) Acute respiratory failure with hypoxia: Status: Acute (2) Asthmaticus, status: Status: Acute (3) Acute asthma exacerbation: Status: Acute Plan 7-year-old female with past medical history of asthma comes in with asthma exacerbation # acute hypoxic respiratory failure - asthma exacerbation versus CHF versus PE less likely - patient has evidence of pulmonary congestion - will obtain BNP-if BNP elevated will obtain echocardiogram as patient has no history of CHF - given 1 dose of Lasix with improvement in her symptoms - will continue DuoNeb treatment q.4 hours as well as steroids - monitor respiratory status # acute asthma exacerbation - has significant wheezing, cough, no evidence of pneumonia - will treat with DuoNeb, steroid, continue montelukast - monitor oxygen requirement DVT prophylaxis: Lovenox Given patient's need for oxygen supplement, as well as asthma exacerbation not improved after breathing treatments and Mag as well as IV steroids patient will require minimum 2 night inpatient hospital stay for further management and monitoring Time Spent With Patient Time: Total time managing care of this patient today ____ minutes. Quality Stroke Does the patient have a stroke diagnosis?: No VTE Prior VTE?: No VTE Risk Level:: Medical - moderate - high VTE Device Contraindication: Treatment Not Indicated VTE Drug Contraindication: N/A - Med Ordered
[2022-07-13] MEDS: methylPREDNISolone Sod Succ 40 MG/ML VIAL IVPUSH (23:07)
[2022-07-13] MEDS: Furosemide 40 MG/4 ML VIAL IVPUSH (23:07)
[2022-07-13] MEDS: oxyCODONE HCl Immed Release 5 MG TABLET PO (23:59)
[2022-07-14] VITALS (9 sets, daily range): BP systolic 114–131; BP diastolic 58–79; PULSE 60–91; RESP 17–24; TEMP 36.2–36.7; O2SAT 92–96; BMI 38.5
--- NOTE | 2022-07-14 01:35 | MHC.EDTECH ---
Pt 1x assisted with changing over into hospital gown. Pt given warm blanket and call carvalho in reach. Pt personal belongings placed bedside in labeled belongings bag
--- NOTE | 2022-07-14 01:42 | PC.NURSE ---
Assumed care of pt. at 1900. Pt. sitting up in bed at that time. Pt. requested to use the bathroom. Brought commode to bedside and pt. is able to independently use commode. Pt. complains of SOB and needing 2L of oxygen to maintain O2 sats above 94%. Pt. does have a hx of asthma. Pt. reported a migraine headache and was medicated with oxycodone per MD. Audible wheezes can be heard at times, though O2 sats remain around 96% on 2 liters. Pt. medicated with lasix for mild CHF. Pt. is alert and oriented and under no apparent distress. Pt. sent to [facility] bed. Report called to ORI Rivera. Pt. transported to [facility] by fernando Lopez.
[2022-07-14] MEDS: Acetaminophen 325 MG TABLET 650 MG PO ×2 (02:32→14:11)
--- NOTE | 2022-07-14 06:18 | PC.NURSE ---
Patient admitted from the main ED for asthma exacerbation and mild CHF. AOx4, Patient medicated x1 with Tylenol for migraine-like headache with effectiveness. Slept comfortably throughout the night with intermittent productive cough (clear phlegm). Continues on 2L via NC with saturation 94-97%. Denied SOB on shift but states it usually happens when doing things . Bed weight 105.0kg, no edema, palpable pulses. Left forearm IV patent, intact and without any complications. Needs minimal assistance with ADLs x1 person assist. Labs drawn this morning, care is ongoing.
[2022-07-14 06:32] LABS: Basophils Percent Auto 0.2 % (0-2); Hematocrit 38.5 % (37.0-47.0); Hemoglobin 12.5 g/dl (12.0-16.0); Imm Gran Abs Auto 0.08 X10*3/uL (0.00-0.03); Imm Gran Pct Auto 0.5 % (0.0-0.4); Lymphocytes Absolute Auto 1.3 X10*3/uL (1.2-4.9); Lymphocytes Percent Auto 7.6 % (20-40); MANUAL DIFF FLAG SCAN; Mean Corpuscular HGB Conc 32.5 g/dl (31.0-35.0); Mean Corpuscular Hemoglobin 27.2 pg (27.0-33.0); Mean Corpuscular Volume 83.7 fL (80.0-98.0); Mean Platelet Volume 10.1 fL (9.4-12.3); Monocytes Absolute Auto 0.2 X10*3/uL (0.1-1.2); Neutrophils Absolute Auto 14.9 x10*3/uL (2.0-8.3); Neutrophils Percent Auto 90.7 % (45-73); Platelet Count 411 X10*3/uL (160-400); Red Cell Distribution Width 15.1 % (11.0-16.0); SCAN SMEAR FLAG 1; White Blood Count 16.4 X10*3/uL (4.8-10.8)
[2022-07-14 06:45] LABS: Anion Gap 15 (12-20); Blood Urea Nitrogen 8 mg/dL (9-16); Calcium 8.8 mg/dL (8.4-10.2); Carbon Dioxide 24 mmol/L (22-29); Chloride 105 mmol/L (96-108); Creatinine Clr Calc Pharmacy 117.5; Estimated Glomerular Filt Rate > 60; Glucose Random 183 mg/dL (60-115); Sodium 140 mmol/L (135-145)
[2022-07-14 07:47] LABS: VBG Base Excess 0.1 mmol/L; VBG HCO3 24 mmol/L (22-26); VBG pCO2 39 mmHg; VBG pO2 60 mmHg
[2022-07-14 07:48] LABS: SLIDE REVIEW VERIFIED
[2022-07-14 07:48] LABS: Venous Blood Gas Refer to POC result
[2022-07-14] MEDS: Enoxaparin Sodium 40 MG/0.4 ML SYRINGE SUBCUT (07:53)
[2022-07-14] MEDS: Dicyclomine HCl 10 MG CAPSULE 20 MG PO ×3 (07:53→21:00)
[2022-07-14] MEDS: hydrOXYzine HCL 50 MG TABLET PO (07:54)
[2022-07-14] MEDS: buPROPion HCl XL 150 MG TAB.ER.24H PO (07:54)
[2022-07-14] MEDS: Gabapentin 400 MG CAPSULE PO ×2 (07:54→21:00)
[2022-07-14] MEDS: Nicotine 21 MG PATCH.TD24 TRANSDERMA (07:54)
[2022-07-14] MEDS: 0.9 % Sodium Chloride Flush 3 ML SYRINGE IVFLUSH ×3 (08:03→21:01)
[2022-07-14 08:19] LABS: B Type Natriuretic Peptide 52 pg/mL (<100)
[2022-07-14] MEDS: methylPREDNISolone Sod Succ 40 MG/ML VIAL IVPUSH ×2 (09:29→21:01)
--- NOTE | 2022-07-14 11:45 | PC.NURSE ---
Pt remains in overflow awaiting disposition. Pt is A&O x4 with mild respiratory, as well as non-productive cough. Diffuse wheezing and diminished lung sounds ascultated in all pena. Pharmacy request made for inhaler, and request made to physician to add nebulizer to treatment plan if appropriate. Pt otherwise has no complaints and appears mostly comfortable. IV access obtained in L hand via 22g catheter. IV draws back, no infiltration or swelling or discomfort noted at site. Forearm IV removed d/t non-functioning.
--- NOTE | 2022-07-14 15:15 | P.PNIM_ITS ---
Subjective Subjective Date of Service: 07/14/22 Interval History: asthma execerebation Review of Systems Patient is short of breath with minimal exertion, talks in short sentences. Denies any cough or fever. Physical Exam Vital Signs: Vital Signs: Last Vital Signs Temp 97.4 F 07/14/22 09:45 Pulse 76 07/14/22 09:45 Resp 20 07/14/22 09:45 BP 114/58 L 07/14/22 09:45 Pulse Ox 93 07/14/22 09:45 O2 Del Method 07/14/22 09:45 O2 Flow Rate 2 07/14/22 06:21 BMI result Body Mass Index 38.5 Appearance: Alert.? Oriented X3.sob cvs: rrr, [id number] , no murmur res: air enetry diminshed ,b/l wheezing abd: no rebound or guarding ,nt, bs present. ext pulses present , no cyanosis . neuro: axo3 , nonfocal. Objective Data Active Medications Acetaminophen (Acetaminophen 325 Mg Tablet) 650 mg PO Q6H PRN PRN Reason: Pain, Mild (Pain Scale 1-3) Last Admin: 07/14/22 14:11 Dose: 650 mg Documented By: REYNALDO Albuterol Sulfate (Albuterol Sulfate 90 Mcg 8 Gm Inhaler) 1 puff INHALE QID PRN PRN Reason: shortness of breath or wheezing Bupropion HCl (Bupropion Hcl Xl 150 Mg Tab.Er.24h) 150 mg PO DAILY [facility] Last Admin: 07/14/22 07:54 Dose: 150 mg Documented By: REYNALDO Albuterol Sulfate 2.5 mg/ (Ipratropium [place] 0.5 mg) 0 mg INHALE RQ4H WHILE AWAKE [facility] Dicyclomine HCl (Dicyclomine Hcl 10 Mg Capsule) 20 mg PO TID [facility] Last Admin: 07/14/22 14:12 Dose: 20 mg Documented By: REYNALDO Enoxaparin Sodium (Enoxaparin Sodium 40 Mg/0.4 Ml Syringe) 40 mg SUBCUT Q24H [facility] Last Admin: 07/14/22 07:53 Dose: 40 mg Documented By: REYNALDO Fluticasone/Vilanterol (Fluticasone/Vilanterol 200/25 Blst.W.Dev) 1 puff INHALE RDAILY [facility] Last Admin: 07/14/22 08:59 Dose: Not Given Documented By: LUZ Non-Admin Reason: med not avail/pharm called Gabapentin (Gabapentin 400 Mg Capsule) 400 mg PO BID [facility] Last Admin: 07/14/22 07:54 Dose: 400 mg Documented By: REYNALDO Hydroxyzine HCl (Hydroxyzine Hcl 50 Mg Tablet) 50 mg PO DAILY [facility] Last Admin: 07/14/22 07:54 Dose: 50 mg Documented By: REYNALDO Hydroxyzine HCl (Hydroxyzine Hcl 50 Mg Tablet) 100 mg PO BEDTIME PRN PRN Reason: Anxiety Methylprednisolone Sodium Succinate (Methylprednisolone Sod Succ 40 Mg/Ml Vial) 40 mg IVPUSH Q12H [facility] Last Admin: 07/14/22 09:29 Dose: 40 mg Documented By: REYNALDO Montelukast Sodium (Montelukast Sodium 10 Mg Tablet) 10 mg PO BEDTIME [facility] Naproxen (Naproxen 500 Mg Tablet) 500 mg PO BID PRN PRN Reason: pain Nicotine (Nicotine 21 Mg Patch.Td24) 21 mg TRANSDERMA DAILY [facility] Last Admin: 07/14/22 07:54 Dose: 21 mg Documented By: REYNALDO Nicotine Polacrilex (Nicotine Polacrilex 2 Mg Gum) 2 mg BUCCAL Q2H PRN PRN Reason: Nicotine Cravings Omeprazole (Omeprazole 20 Mg Capsule.Dr) 20 mg PO DAILY@0630 [facility] Ondansetron HCl (Ondansetron Hcl 4 Mg/2 Ml Vial) 4 mg IVPUSH Q8H PRN PRN Reason: Nausea and Vomiting Paroxetine HCl (Paroxetine Hcl 40 Mg Tablet) 40 mg PO BEDTIME [facility] Prazosin HCl (Prazosin Hcl 5 Mg Capsule) 5 mg PO BEDTIME [facility]; Protocol Sodium Chloride (0.9 % Sodium Chloride Flush 3 Ml Syringe) 3 ml IVFLUSH QSHIFT [facility] Last Admin: 07/14/22 08:03 Dose: 3 ml Documented By: REYNALDO Labs 07/14/22 06:16 07/14/22 06:16 Labs: Laboratory Results - last 24 hr 07/13/22 07/13/22 07/13/22 18:03 18:03 18:03 MCV 82.8 MCH 27.1 MCHC 32.7 RDW 15.1 Plt Count 402 H MPV 10.1 Immature Gran % (Auto) 0.6 H Neut % (Auto) 82.7 H Lymph % (Auto) 7.8 L [place] % (Auto) 4.0 Eos % (Auto) 4.4 H Baso % (Auto) 0.5 Lymph # (Auto) 1.6 [place] # (Auto) 0.8 Eos # (Auto) 0.9 H Baso # (Auto) 0.1 Abs Immat Gran (auto) 0.12 H Absolute Neuts (auto) 16.6 H Absolute Nucleated RBC 0.000 Nucleated RBC % (auto) 0.0 Smear Tech's Comments VBG pH VBG pCO2 VBG pO2 VBG HCO3 VBG O2 Saturation VBG Base Excess Anion Gap 13 Estim Creat Clear Calc 114.1 Estimated GFR > 60 Random Glucose 144 H Lactic Acid 0.8 Calcium 8.8 Total Bilirubin 0.3 AST 20 ALT 20 Alkaline Phosphatase 115 B-Natriuretic Peptide Total Protein 6.4 L Albumin 3.6 Influenza Type A (PCR) Influenza Type B (PCR) RSV RNA Qual (PCR) SARS-CoV-2 RNA (RT-PCR) 07/13/22 07/14/22 07/14/22 18:26 06:16 06:16 MCV 83.7 MCH 27.2 MCHC 32.5 RDW 15.1 Plt Count 411 H MPV 10.1 Immature Gran % (Auto) 0.5 H Neut % (Auto) 90.7 H Lymph % (Auto) 7.6 L [place] % (Auto) 1.0 L Eos % (Auto) 0.0 Baso % (Auto) 0.2 Lymph # (Auto) 1.3 [place] # (Auto) 0.2 Eos # (Auto) 0.0 Baso # (Auto) 0.0 Abs Immat Gran (auto) 0.08 H Absolute Neuts (auto) 14.9 H Absolute Nucleated RBC 0.000 Nucleated RBC % (auto) 0.0 Smear Tech's Comments VERIFIED VBG pH VBG pCO2 VBG pO2 VBG HCO3 VBG O2 Saturation VBG Base Excess Anion Gap 15 Estim Creat Clear Calc 117.5 Estimated GFR > 60 Random Glucose 183 H Lactic Acid Calcium 8.8 Total Bilirubin AST ALT Alkaline Phosphatase B-Natriuretic Peptide Total Protein Albumin Influenza Type A (PCR) NEGATIVE Influenza Type B (PCR) NEGATIVE RSV RNA Qual (PCR) NEGATIVE SARS-CoV-2 RNA (RT-PCR) NEGATIVE 07/14/22 07/14/22 07:32 07:40 MCV MCH MCHC RDW Plt Count MPV Immature Gran % (Auto) Neut % (Auto) Lymph % (Auto) [place] % (Auto) Eos % (Auto) Baso % (Auto) Lymph # (Auto) [place] # (Auto) Eos # (Auto) Baso # (Auto) Abs Immat Gran (auto) Absolute Neuts (auto) Absolute Nucleated RBC Nucleated RBC % (auto) Smear Tech's Comments VBG pH 7.40 VBG pCO2 39 VBG pO2 60 VBG HCO3 24 VBG O2 Saturation 88.0 VBG Base Excess 0.1 Anion Gap Estim Creat Clear Calc Estimated GFR Random Glucose Lactic Acid Calcium Total Bilirubin AST ALT Alkaline Phosphatase B-Natriuretic Peptide 52 Total Protein Albumin Influenza Type A (PCR) Influenza Type B (PCR) RSV RNA Qual (PCR) SARS-CoV-2 RNA (RT-PCR) Assessment and Plan (1) Acute asthma exacerbation: Status: Acute (2) Acute respiratory failure with hypoxia: Status: Acute Plan 41y/o female with past medical history of asthma comes in with asthma exacerbation acute hypoxic respiratory failure - asthma exacerbation( mild intermittent),? mild acute bronhitis - patient has evidence of pulmonary congestion BNP seems normal. continue DuoNeb treatment q.4 hours as well as steroids,added doxycylcine , monitor respiratory status acute asthma (mild intermittent)exacerbation - has significant wheezing, cough, no evidence of pneumonia - will treat with DuoNeb, steroid, continue montelukast - monitor oxygen requirement DVT prophylaxis:? Lovenox inpatient need for :acute hypoxic respiratory failure with acute asthma (mild intermittent)exacerbation-needs nebs ,steriods ,repiratory status not optimal yet. Time Spent With Patient Time: Total time managing care of this patient today ____ minutes. Quality Stroke Does the patient have a stroke diagnosis?: No VTE Prior VTE?: No VTE Risk Level:: Medical - moderate - high VTE Device Contraindication: Treatment Not Indicated VTE Drug Contraindication: N/A - Med Ordered
[2022-07-14] MEDS: ondansetron HCL 4 MG/2 ML VIAL IVPUSH (15:50)
--- NOTE | 2022-07-14 16:06 | MHC.CM.PN ---
FAX received in the ED for this patient form [facility] from Pulmonary rehab with their recommendation for home oxygen with ambulation. Dr. West reviewed report. Dr. West states they will conduct pulmonary testing for this patient while hospitalized to determine need for home oxygen prior to discharge.
--- NOTE | 2022-07-14 16:31 | PC.NURSE ---
Pt care was transferred to [facility]. Prior to sending pt up pt was medicated for persistent nausea w/ PRN ondansetron. Report given to Payton Ley RN.
[2022-07-14] MEDS: Doxycycline Monohydrate 100 MG CAPSULE PO (17:32)
[2022-07-14] MEDS: NaPROXEN 500 MG TABLET PO (18:18)
[2022-07-14] MEDS: PARoxetine HCL 40 MG TABLET PO (21:00)
[2022-07-14] MEDS: Prazosin HCL 5 MG CAPSULE PO (21:00)
[2022-07-14] MEDS: Montelukast Sodium 10 MG TABLET PO (21:01)
[2022-07-14] MEDS: hydrOXYzine HCL 50 MG TABLET 100 MG PO (21:03)
[2022-07-15] VITALS (9 sets, daily range): BP systolic 123–145; BP diastolic 69–83; PULSE 73–104; RESP 16–24; TEMP 36.1–36.9; O2SAT 92–97
[2022-07-15] MEDS: Acetaminophen 325 MG TABLET 650 MG PO ×2 (02:10→14:17)
[2022-07-15] MEDS: Omeprazole 20 MG CAPSULE.DR PO (06:10)
[2022-07-15] MEDS: Enoxaparin Sodium 40 MG/0.4 ML SYRINGE SUBCUT (06:10)
[2022-07-15] MEDS: Doxycycline Monohydrate 100 MG CAPSULE PO ×2 (06:10→17:32)
[2022-07-15] MEDS: Nicotine 21 MG PATCH.TD24 TRANSDERMA (07:58)
[2022-07-15] MEDS: buPROPion HCl XL 150 MG TAB.ER.24H PO (07:59)
[2022-07-15] MEDS: 0.9 % Sodium Chloride Flush 3 ML SYRINGE IVFLUSH ×3 (07:59→21:09)
[2022-07-15] MEDS: Gabapentin 400 MG CAPSULE PO ×2 (07:59→21:10)
[2022-07-15] MEDS: Dicyclomine HCl 10 MG CAPSULE 20 MG PO ×3 (07:59→21:08)
[2022-07-15] MEDS: hydrOXYzine HCL 50 MG TABLET PO (07:59)
[2022-07-15] MEDS: Loratadine 10 MG TABLET PO (07:59)
[2022-07-15] MEDS: methylPREDNISolone Sod Succ 40 MG/ML VIAL IVPUSH ×2 (10:43→21:30)
[2022-07-15 12:55] LABS: D Dimer High Sensitivity < 150 NG/ML
--- NOTE | 2022-07-15 13:09 | MHC.CM.PN ---
GALLO 07/15/22 FEMALE DX ASTHMA EXACERBATION She lives w . She states that she does not use an AD. She receives [facility]. She is in the process of receiving WRINKLE CHASER services from [facility]. Search for TRACKWALKER in progress. Vaxxed x 3. HCP on file. She does not use oxygen at home. Per patient report: She has been instructed by her liquor bridge operator helper that she needs 2L oxygen. The patient has not received the oxygen yet. She was instructed to get the script form her PCP. [facility] hospitalist plans a Home O2 eval prior to discharge. DP resume services already in place. Patients will transport home. PCP is Dr Saba Roberts [facility].
--- NOTE | 2022-07-15 15:13 | P.PNIM_ITS ---
Subjective Subjective Date of Service: 07/15/22 Interval History: asthma execerebation Review of Systems Patient is short of breath with minimal exertion, talks in short sentences. Denies any cough or fever Physical Exam Vital Signs: Vital Signs: Last Vital Signs Temp 97.9 F 07/15/22 12:00 Pulse 73 07/15/22 14:49 Resp 18 07/15/22 14:49 BP 134/69 07/15/22 12:00 Pulse Ox 95 07/15/22 12:00 O2 Del Method Nasal Cannula 07/15/22 12:00 O2 Flow Rate 2.5 07/15/22 12:00 BMI result Body Mass Index 38.5 Appearance: Alert.? Oriented X3.sob cvs: rrr, [id number] , no murmur res: air enetry diminshed ,b/l wheezing abd: no rebound or guarding ,nt, bs present. ext pulses present , no cyanosis . neuro: axo3 , nonfocal. Objective Data Active Medications Acetaminophen (Acetaminophen 325 Mg Tablet) 650 mg PO Q6H PRN PRN Reason: Pain, Mild (Pain Scale 1-3) Last Admin: 07/15/22 14:17 Dose: 650 mg Documented By: SANJUANA Albuterol Sulfate (Albuterol Sulfate 90 Mcg 8 Gm Inhaler) 1 puff INHALE QID PRN PRN Reason: shortness of breath or wheezing Bupropion HCl (Bupropion Hcl Xl 150 Mg Tab.Er.24h) 150 mg PO DAILY [facility] Last Admin: 07/15/22 07:59 Dose: 150 mg Documented By: SANJUANA Albuterol Sulfate 2.5 mg/ (Ipratropium [place] 0.5 mg) 0 mg INHALE RQ4H WHILE AWAKE [facility] Last Admin: 07/15/22 14:47 Dose: 1 each Documented By: YARELI Albuterol Sulfate 2.5 mg/ (Ipratropium [place] 0.5 mg) 0 mg INHALE Q3H PRN PRN Reason: sob Dicyclomine HCl (Dicyclomine Hcl 10 Mg Capsule) 20 mg PO TID [facility] Last Admin: 07/15/22 14:14 Dose: 20 mg Documented By: SANJUANA Doxycycline Monohydrate (Doxycycline Monohydrate 100 Mg Capsule) 100 mg PO Q12H [facility] Last Admin: 07/15/22 06:10 Dose: 100 mg Documented By: JAMES Comments: downtime Enoxaparin Sodium (Enoxaparin Sodium 40 Mg/0.4 Ml Syringe) 40 mg SUBCUT Q24H [facility] Last Admin: 07/15/22 06:10 Dose: 40 mg Documented By: JAMES Comments: downtime Fluticasone/Vilanterol (Fluticasone/Vilanterol 200/25 Blst.W.Dev) 1 puff INHALE RDAILY [facility] Last Admin: 07/15/22 07:51 Dose: Not Given Documented By: JIHAN Non-Admin Reason: Med Not Available Gabapentin (Gabapentin 400 Mg Capsule) 400 mg PO BID [facility] Last Admin: 07/15/22 07:59 Dose: 400 mg Documented By: SANJUANA Hydroxyzine HCl (Hydroxyzine Hcl 50 Mg Tablet) 50 mg PO DAILY [facility] Last Admin: 07/15/22 07:59 Dose: 50 mg Documented By: SANJUANA Hydroxyzine HCl (Hydroxyzine Hcl 50 Mg Tablet) 100 mg PO BEDTIME PRN PRN Reason: Anxiety Last Admin: 07/14/22 21:03 Dose: 100 mg Documented By: JAMES Loratadine (Loratadine 10 Mg Tablet) 10 mg PO DAILY [facility] Last Admin: 07/15/22 07:59 Dose: 10 mg Documented By: SANJUANA Methylprednisolone Sodium Succinate (Methylprednisolone Sod Succ 40 Mg/Ml Vial) 40 mg IVPUSH Q12H [facility] Last Admin: 07/15/22 10:43 Dose: 40 mg Documented By: SANJUANA Montelukast Sodium (Montelukast Sodium 10 Mg Tablet) 10 mg PO BEDTIME [facility] Last Admin: 07/14/22 21:01 Dose: 10 mg Documented By: JAMES Naproxen (Naproxen 500 Mg Tablet) 500 mg PO BID PRN PRN Reason: pain Last Admin: 07/14/22 18:18 Dose: 500 mg Documented By: SANJUANA Nicotine (Nicotine 21 Mg Patch.Td24) 21 mg TRANSDERMA DAILY [facility] Last Admin: 07/15/22 07:58 Dose: 21 mg Documented By: SANJUANA Nicotine Polacrilex (Nicotine Polacrilex 2 Mg Gum) 2 mg BUCCAL Q2H PRN PRN Reason: Nicotine Cravings Omeprazole (Omeprazole 20 Mg Capsule.) 20 mg PO DAILY@0630 [facility] Last Admin: 07/15/22 06:10 Dose: 20 mg Documented By: JAMES Comments: downtime Ondansetron HCl (Ondansetron Hcl 4 Mg/2 Ml Vial) 4 mg IVPUSH Q8H PRN PRN Reason: Nausea and Vomiting Last Admin: 07/14/22 15:50 Dose: 4 mg Documented By: REYNALDO Paroxetine HCl (Paroxetine Hcl 40 Mg Tablet) 40 mg PO BEDTIME [facility] Last Admin: 07/14/22 21:00 Dose: 40 mg Documented By: JAMES Prazosin HCl (Prazosin Hcl 5 Mg Capsule) 5 mg PO BEDTIME [facility]; Protocol Last Admin: 07/14/22 21:00 Dose: 5 mg Documented By: JAMES Sodium Chloride (0.9 % Sodium Chloride Flush 3 Ml Syringe) 3 ml IVFLUSH QSHIFT [facility] Last Admin: 07/15/22 07:59 Dose: 3 ml Documented By: SANJUANA Labs 07/14/22 06:16 07/14/22 06:16 Labs: Laboratory Results - last 24 hr 07/15/22 12:15 D-Dimer High Sensitivty < 150 Microbiology Microbiology Results: Microbiology 07/13/22 19:59 Blood Culture - Preliminary Blood - Venous No growth after 24 hours. 07/13/22 19:59 Blood Culture - Preliminary Blood - Venous No growth after 24 hours. Assessment and Plan (1) Acute asthma exacerbation: Status: Acute (2) Acute respiratory failure with hypoxia: Status: Acute Plan 41y/o female with past medical history of asthma comes in with asthma exacerbation acute hypoxic respiratory failure ddimer neg - asthma exacerbation( mild intermittent),? mild acute bronhitis - patient has evidence of pulmonary congestion BNP seems normal. continue DuoNeb treatment q.4 hours as well as steroids,added doxycylcine , monitor respiratory status acute asthma (mild intermittent)exacerbation - has significant wheezing, cough, no evidence of pneumonia - will treat with DuoNeb, steroid, continue montelukast - monitor oxygen requirement DVT prophylaxis:? Lovenox inpatient need for :acute hypoxic respiratory failure with acute asthma (mild intermittent)exacerbation-needs nebs ,steriods ,repiratory status not optimal yet. Time Spent With Patient Time: Total time managing care of this patient today ____ minutes. Quality Stroke Does the patient have a stroke diagnosis?: No VTE Prior VTE?: No VTE Risk Level:: Medical - moderate - high VTE Device Contraindication: Treatment Not Indicated VTE Drug Contraindication: N/A - Med Ordered
[2022-07-15] MEDS: Montelukast Sodium 10 MG TABLET PO (21:00)
[2022-07-15] MEDS: Prazosin HCL 5 MG CAPSULE PO (21:00)
[2022-07-15] MEDS: PARoxetine HCL 40 MG TABLET PO (21:00)
[2022-07-16] VITALS (8 sets, daily range): BP systolic 137–176; BP diastolic 66–83; PULSE 70–82; RESP 16–22; TEMP 36.2–37.3; O2SAT 93–99
[2022-07-16] MEDS: Omeprazole 20 MG CAPSULE.DR PO (06:02)
[2022-07-16] MEDS: Doxycycline Monohydrate 100 MG CAPSULE PO ×2 (06:02→17:35)
[2022-07-16] MEDS: Enoxaparin Sodium 40 MG/0.4 ML SYRINGE SUBCUT (06:02)
[2022-07-16] MEDS: methylPREDNISolone Sod Succ 40 MG/ML VIAL IVPUSH ×2 (09:28→21:10)
[2022-07-16] MEDS: Gabapentin 400 MG CAPSULE PO ×2 (09:28→21:10)
[2022-07-16] MEDS: ondansetron HCL 4 MG/2 ML VIAL IVPUSH (09:28)
[2022-07-16] MEDS: hydrOXYzine HCL 50 MG TABLET PO (09:28)
[2022-07-16] MEDS: Nicotine 21 MG PATCH.TD24 TRANSDERMA (09:28)
[2022-07-16] MEDS: 0.9 % Sodium Chloride Flush 3 ML SYRINGE IVFLUSH ×3 (09:28→23:30)
[2022-07-16] MEDS: Dicyclomine HCl 10 MG CAPSULE 20 MG PO ×3 (09:29→21:10)
[2022-07-16] MEDS: buPROPion HCl XL 150 MG TAB.ER.24H PO (09:29)
[2022-07-16] MEDS: Loratadine 10 MG TABLET PO (09:29)
[2022-07-16] MEDS: polyethylene glycoL 3350 17 GM POWD.PACK PO (10:38)
[2022-07-16] MEDS: Docusate Sodium 100 MG CAPSULE PO (10:38)
[2022-07-16] MEDS: Lactulose 20 GM/30 ML SOLUTION PO (12:25)
--- NOTE | 2022-07-16 15:03 | MHC.CM.PN ---
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 MESSAGE RELAYED TO MD DE LUNA DIRECT NUMBER IS [phone]
--- NOTE | 2022-07-16 15:08 | MHC.CM.PN ---
PATIENT STILL ACUTE. REQUIRES KUB AND MANAGEMENT OF PAIN. NO DC TODAY
[2022-07-16] MEDS: Acetaminophen 325 MG TABLET 650 MG PO (16:07)
[2022-07-16] MEDS: NaPROXEN 500 MG TABLET PO (18:34)
[2022-07-16] MEDS: Prazosin HCL 5 MG CAPSULE PO (21:10)
[2022-07-16] MEDS: Montelukast Sodium 10 MG TABLET PO (21:10)
[2022-07-16] MEDS: PARoxetine HCL 40 MG TABLET PO (21:10)
[2022-07-17 03:03] VITALS: BP 142/79; PULSE 84; RESP 18; TEMP 36.1; O2SAT 94
[2022-07-17] MEDS: Doxycycline Monohydrate 100 MG CAPSULE PO (06:21)
[2022-07-17] MEDS: Enoxaparin Sodium 40 MG/0.4 ML SYRINGE SUBCUT (06:21)
[2022-07-17] MEDS: Omeprazole 20 MG CAPSULE.DR PO (06:21)
[2022-07-17 07:29] VITALS: BP 172/90; PULSE 69; RESP 18; TEMP 36.2; O2SAT 97
[2022-07-17 07:41] VITALS: BP 152/84
[2022-07-17 08:17] VITALS: PULSE 67; RESP 16; O2SAT 99
[2022-07-17] MEDS: buPROPion HCl XL 150 MG TAB.ER.24H PO (08:22)
[2022-07-17] MEDS: Loratadine 10 MG TABLET PO (08:22)
[2022-07-17] MEDS: Gabapentin 400 MG CAPSULE PO (08:22)
[2022-07-17] MEDS: hydrOXYzine HCL 50 MG TABLET PO (08:22)
[2022-07-17] MEDS: Dicyclomine HCl 10 MG CAPSULE 20 MG PO ×2 (08:22→13:56)
[2022-07-17] MEDS: Nicotine 21 MG PATCH.TD24 TRANSDERMA (08:23)
[2022-07-17] MEDS: polyethylene glycoL 3350 17 GM POWD.PACK PO (08:23)
[2022-07-17] MEDS: 0.9 % Sodium Chloride Flush 3 ML SYRINGE IVFLUSH (08:24)
[2022-07-17] MEDS: methylPREDNISolone Sod Succ 40 MG/ML VIAL IVPUSH (08:24)
[2022-07-17] MEDS: Fluticasone/Vilanterol 200/25 BLST.W.DEV 1 PUFF INHALE (09:33)
--- NOTE | 2022-07-17 10:29 | P.DS_ITS ---
DS: Providers Provider Date of Service: 07/17/22 Date of admission: 07/13/22 21:50 Date of discharge: 07/17/22 Primary care physician: Unknown Physician DS: Diagnosis Discharge Diagnosis (1) Acute asthma exacerbation: Status: Acute (2) Acute respiratory failure with hypoxia: Status: Acute (3) Bronchitis: Status: Inactive DS: Summary Hospital Course Hospital Course: 41-year-old female with past medical history of asthma, migraine headaches, disc herniation presents to the hospital with complaints of shortness of breath, cough, as well as sputum production for the past 5 days. pt states that she went to the planned giving officer today, and was told that she needs ambulatory oxygen, which was ordered for her but as soon as she got home, she had increased respiratory distress, apparently a VNA?? Was with her who checked her O2 which was in the high 80s, but patient states that she took a breathing treatment with no improvement, has significant wheezing, difficulty breathing and therefore EMS was called and patient was brought into the hospital.? She denies any fever, chills, reports no abdominal pain nausea or vomiting, no diarrhea constipation, no chest pain.? No urinary symptoms and no lower extremity edema.? Will to the noted to be hypoxic in the 88-90% on room air, placed on 2 L of cannula satting 92%.? Respiratory rate of 28.? otherwise significant for heart rate of 120 BP stable Labs are significant for WBC count of 20.1, otherwise unremarkable Chest x-ray shows mild cardiomegaly with peribronchial thickening and increased interstitial marking hospital course: patient admitted for acute hypoxic respiratory failure -possible related to acute asthma (mild intermittent)exacerbation,acute bronchitis -ddimer fine ,cxr -peribronchial thickening-started on nebs,steriods ,antibiotics-seems to be improved ,leucocytosis trending down , no fevers : patient will be going home with po steriods and antibiotics.home oxygen eval done -patient will go withhome oxygen. constipation seems to be improved with adding luxatives. follow up cbc outpatient Obesity: Encouraged to lose weight. plan: complete steriods and antibiotics. moniter cbc outpatient. follow up outpatient. Above management discussed with the patient in detail length she understand and in agreement with the above plan, time spent 50 minutes and 50% time spent on counseling. Time Spent with Patient Time attestation: Total time managing care of this patient today ____ minutes. Discharge coordination time: Greater than 30 minutes Quality: Safe Use of Opioids Does Pt have an Active Cancer Diagnosis on the Problem List?: No Quality: Stroke Does the patient have a stroke diagnosis?: No Physical Exam 2 Vital Signs: Vital Signs: Last Vital Signs Temp 97.1 F 07/17/22 07:29 Pulse 67 07/17/22 08:17 Resp 16 07/17/22 08:17 BP 152/84 H 07/17/22 07:41 Pulse Ox 97 07/17/22 07:29 O2 Del Method Room Air 07/17/22 07:29 O2 Flow Rate 2 07/17/22 03:03 BMI result Body Mass Index 38.5 Appearance: Alert.? Oriented X3.sob cvs: rrr, [id number] , no murmur res: air enetry diminshed ,b/l wheezing abd: no rebound or guarding ,nt, bs present. ext pulses present , no cyanosis . neuro: axo3 , nonfocal. DS: Data Data Completed and Pending Completed studies during hospitalization [Text1]: Procedures Assistance with Respiratory Ventilation, Less than 24 Consecutive Hours, Continuous Positive Airway Pressure (04/23/22) Insertion of Endotracheal Airway into Trachea, Via Natural or Artificial Opening (04/23/22) Insertion of Infusion Device into Superior Vena Cava, Percutaneous Approach (04/23/22) Introduction of Baricitinib into Mouth and Pharynx, External Approach, [employer] (04/23/22) Introduction of Vasopressor into Peripheral Vein, Percutaneous Approach (04/23/22) Respiratory Ventilation, Greater than 96 Consecutive Hours (04/23/22) Ultrasonography of Superior Vena Cava, Guidance (04/23/22) Labs on day of discharge: Preliminary micro results at discharge 07/13/22 19:59 Blood Culture - Preliminary Blood - Venous No growth after 48 hours. 07/13/22 19:59 Blood Culture - Preliminary Blood - Venous No growth after 48 hours. Imaging Chest x-ray: Radiologist's impression: ITS Impressions Chest X-Ray 07/13/22 20:20 IMPRESSION: Mild cardiomegaly with peribronchial thickening and increased interstitial markings. Findings could represent mild CHF. Please correlate clinically. KUB X-Ray 07/16/22 11:27 IMPRESSION: 1. Nonobstructive bowel gas pattern. 2. Mild to moderate colonic stool burden. Discharge Plan Discharge Patient Disposition: Home, Self-Care Discharge Diagnosis: Acute hypoxemic respiratory failure secondary to mild inter mittent asthma exacerbation, possible acute bronchitits episode . Referrals: Physician,Unknown J [Primary Care Provider] - 1 Week Discharge Medications: New polyethylene glycol 3350 17 gram Powder In Packet 17 g PO DAILY PRN (Reason: constipation) Qty: 30 0RF doxycycline monohydrate 100 mg Capsule 100 mg PO Q12H Qty: 10 0RF loratadine 10 mg Tablet 10 mg PO DAILY Qty: 7 0RF prednisone 20 mg tablet 40 mg PO DAILY Qty: 6 0RF Continued albuterol sulfate 90 mcg/actuation HFA aerosol inhaler 1 inh inhalation QID PRN (Reason: shortness of breath or wheezing) Qty: 8.5 0RF montelukast 10 mg tablet 1 tab PO DAILY bupropion HCl 150 mg tablet extended release 24 hr 1 tab PO DAILY riboflavin (vitamin B2) [Vitamin B-2] 100 mg tablet 2 tab PO BID meloxicam 15 mg tablet 1 tab PO DAILY PRN (Reason: pain) nicotine (polacrilex) 4 mg gum 1 gum PO Q2H PRN (Reason: Nicotine Cravings) nicotine 21 mg/24 hr patch 24 hour 1 patch topical DAILY cyanocobalamin (vitamin B-12) 1,000 mcg tablet, sublingual 1 tab sublingual DAILY dicyclomine 20 mg tablet 20 mg PO TID gabapentin 400 mg capsule 1 cap PO BID hydroxyzine pamoate 50 mg capsule 50 mg PO DAILY hydroxyzine pamoate 50 mg capsule 100 mg PO BEDTIME PRN (Reason: Anxiety) prazosin 5 mg capsule 1 cap PO BEDTIME paroxetine HCl 40 mg tablet 1 tab PO BEDTIME budesonide-formoterol [Symbicort] 160-4.5 mcg/actuation HFA aerosol inhaler 1 puff PO BID pantoprazole 40 mg tablet,delayed release (DR/EC) 40 mg PO DAILY Qty: 14 0RF Discharge Orders: Discharge Order (Routine); Ordered 07/17/22 Ordered By: Zena West Diet: Advance to usual diet Activity on Discharge: As tolerated Stand Alone Forms: Patient Portal Discharge page Care Plan Goals: patient admitted for sob -possible related to acute asthma (mild intermittent)exacerbation,acute bronchitis -started on nebs,steriods ,antibiotics-seems to be improved ,leucocytosis trending down , no fevers : patient will be going home with po steriods and antibiotics.home oxygen eval pending. constipation seems to be improved with adding luxatives. follow up cbc outpatient Health Concerns: as above. Plan of Treatment: as above. Assessment: as above. Discharge Date/Time: 07/17/22 16:13
[2022-07-17 11:50] VITALS: PULSE 109; RESP 18; O2SAT 94
[2022-07-17 11:51] VITALS: PULSE 109; PULSE 113; PULSE 80; O2SAT 87; O2SAT 90; O2SAT 94
--- NOTE | 2022-07-17 12:56 | MHC.CM.PN ---
PT WILL DC HOME TODAY WITH NEW HOME OXYGEN BEING ARRANGED BY RT. PT TO ARRANGE HER OWN TRANSPORT
[2022-07-17] MEDS: NaPROXEN 500 MG TABLET PO (13:56)
== END 2022-07-17 16:13 | disposition home or self-care (01) ==
LOC: HO.ED 19:27 → HO.EDOVER 21:57 → HO.S3 07-14 15:25
PROVIDERS: Admitting Provider Internal Medicine; Emergency Provider Internal Medicine; Visit Provider Internal Medicine
DX: J96.01 Acute respiratory failure with hypoxia (principal); J45.21 Mild intermittent asthma with (acute) exacerbation; K59.00 Constipation, unspecified; R06.02 Shortness of breath; Z20.822 Contact with and (suspected) exposure to COVID-19; Z20.828 Contact with and (suspected) exposure to other viral communicable diseases; F17.210 Nicotine dependence, cigarettes, uncomplicated; E66.9 Obesity, unspecified; Z68.38 Body mass index [BMI] 38.0-38.9, adult; Z79.899 Other long term (current) drug therapy
CPT/HCPCS: 0241U; 36415; 71045; 74018; 80048; 80053; 82803; 83605; 83880; 85025; 85379; 87040; 93005; 94640; 96361; 96365; 96372; 96374; 96375; 96376; 99221; 99285; J1100; J1170; J1650; J1940; J2405; J2920; J3475

== ENCOUNTER 2022-08-11 02:53 | Inpatient (IN) | payer OTHER, SELFPAY ==
[2022-08-11] VITALS (8 sets, daily range): BP systolic 112–149; BP diastolic 41–84; PULSE 87–130; RESP 18–28; TEMP 36.2–37.8; O2SAT 94–100; BMI 42.3
--- NOTE | ~2022-08-11 | XR_ITS ---
EXAMINATION: XR CHEST CLINICAL INFORMATION: Shortness of breath COMPARISON: 07/13/2022 TECHNIQUE: Frontal view of the chest was obtained. FINDINGS: Lung volumes are symmetric. There is prominence of the central vasculature and surrounding interstitium which is similar to prior. No dense focal consolidation is seen. No evidence of pneumothorax or pleural effusion. The cardiomediastinal contour is unremarkable. No acute osseous findings are seen. XR/XR chest 1V IMPRESSION: Prominent central vasculature and surrounding interstitium, similar to prior and which may reflect congestion versus interstitial infection.
--- NOTE | ~2022-08-11 | XR_ITS ---
EXAMINATION: XR ABDOMEN COMPLETE CLINICAL INDICATION: Reason for Exam constipation COMPARISON: KUB 07/16/2022 TECHNIQUE: AP view of the abdomen. FINDINGS: Lines or devices: Right upper quadrant cholecystectomy clips. Nonobstructive bowel gas pattern. Nonspecific 2 mm calcification adjacent to the right aspect of L5-S1 for which a ureteral stone cannot be excluded. Moderate colonic stool burden in the right hemicolon. No significant stool burden within the rectum. XR/XR KUB IMPRESSION: 1. Nonobstructive bowel gas pattern. Moderate colonic stool burden in the right hemicolon. No significant stool burden within the rectum. 2. Nonspecific 2 mm calcification adjacent to the right aspect of L5-S1 for which a ureteral stone cannot be excluded.
--- NOTE | ~2022-08-11 | CT_ITS ---
EXAMINATION: CT CHEST WITHOUT CONTRAST CLINICAL INFORMATION: Shortness of breath. COMPARISON: Chest CT from 04/29/2022 and CXR from 08/11/2022. TECHNIQUE: Multidetector volumetric CT imaging of the chest was done. Axial MIP volume rendering provided. Sagittal and coronal reformatted images were obtained. This CT examination was performed using dose optimization techniques as appropriate, variously including the following: *Automated exposure control *Adjustment of mA and/or kV according to patient size (this includes techniques or standardized protocols for targeted exams where dose is matched to indication/reason for exam; i.e. extremities or head) *Use of iterative reconstruction technique DLP: 425 mGy-cm FINDINGS: LUNGS AND PLEURA: There is respiratory motion on images through the chest. Patchy groundglass and airspace opacities are present in both lungs. Mild paraseptal emphysema. No pleural effusion or pneumothorax. CARDIOVASCULAR: Cardiac chambers are normal in size. No pericardial effusion. Pulmonary arteries and thoracic aorta are normal in caliber. CORONARY ARTERY CALCIFICATION: None. MEDIASTINUM AND LOWER NECK: No mediastinal mass. The esophagus and thyroid gland are unremarkable. LYMPHATICS: No pathologic sized lymph nodes. UPPER ABDOMEN: Cholecystectomy. Adrenal glands are normal. Obese body habitus. SKELETAL AND CHEST WALL: Mild spondylosis of thoracic spine. No acute or suspicious osseous abnormality. CT/CT chest wo IV con IMPRESSION: Nonspecific bilateral patchy groundglass and airspace opacities without pleural effusion or cardiomegaly. Findings could represent noninfectious or infectious pneumonitis. No lymphadenopathy.
--- NOTE | 2022-08-11 03:00 | PC.NURSE ---
late entry- pt biba. iv line placed. lab work obtained and sent down to lab. ed provided dr johnson at bedside. RT at bedside
--- NOTE | 2022-08-11 03:01 | ECG_ITS ---
Test Reason : sob Blood Pressure : / mmHG Vent. Rate : 123 BPM Atrial Rate : 123 BPM P-R Int : 128 ms QRS Dur : 084 ms QT Int : 330 ms P-R-T Axes : 041 036 026 degrees QTc Int : 472 ms Sinus tachycardia Possible Left atrial enlargement Borderline ECG When compared with ECG of 13-JUL-2022 17:37, No significant change was found Referred By: Generic ED Physician Electronically Signed By:IVIS MONTGOMERY
[2022-08-11 03:07] LABS: Basophils Absolute Auto 0.1 X10*3/uL (0.0-0.2); Basophils Percent Auto 0.5 % (0-2); Eosinophils Absolute Auto 0.9 X10*3/uL (0.0-0.4); Eosinophils Percent Auto 4.3 % (0-4); Hematocrit 39.1 % (37.0-47.0); Hemoglobin 12.6 g/dl (12.0-16.0); Imm Gran Abs Auto 0.09 X10*3/uL (0.00-0.03); Imm Gran Pct Auto 0.4 % (0.0-0.4); Lymphocytes Absolute Auto 2.3 X10*3/uL (1.2-4.9); Lymphocytes Percent Auto 11.3 % (20-40); MANUAL DIFF FLAG NO; Mean Corpuscular HGB Conc 32.2 g/dl (31.0-35.0); Mean Corpuscular Hemoglobin 26.8 pg (27.0-33.0); Mean Platelet Volume 9.6 fL (9.4-12.3); Monocytes Absolute Auto 1.2 X10*3/uL (0.1-1.2); Neutrophils Absolute Auto 15.6 x10*3/uL (2.0-8.3); Neutrophils Percent Auto 77.5 % (45-73); Platelet Count 377 X10*3/uL (160-400); Red Blood Count 4.71 X10*6/uL (4.20-5.50); Red Cell Distribution Width 15.5 % (11.0-16.0); White Blood Count 20.2 X10*3/uL (4.8-10.8)
[2022-08-11 03:13] LABS: VBG Base Excess 2.1 mmol/L; VBG HCO3 26 mmol/L (22-26); VBG pCO2 39 mmHg; VBG pH 7.43 (7.32-7.43); VBG pO2 48 mmHg
[2022-08-11 03:14] LABS: Venous Blood Gas Refer to POC result
--- NOTE | 2022-08-11 03:21 | PC.NURSE ---
Pt finished duoneb. Provider ordered this RN to hold oxygen to determine pt's SpO2. Pt maintained SpO2 at 93-94% without supplemental O2. Lung sounds clear at this time. Pt stated that she feels less SOB.
[2022-08-11 03:25] LABS: Anion Gap 15 (12-20); Blood Urea Nitrogen 9 mg/dL (9-16); Calcium 8.9 mg/dL (8.4-10.2); Carbon Dioxide 23 mmol/L (22-29); Chloride 104 mmol/L (96-108); Creatinine Clr Calc Pharmacy 110.4; Estimated Glomerular Filt Rate > 60; Glucose Random 157 mg/dL (60-115); Potassium 4.6 mmol/L (3.3-5.1); Sodium 137 mmol/L (135-145)
[2022-08-11 03:33] LABS: Troponin-I High Sensitivity < 2.7 ng/L (<3.5-17.0)
--- NOTE | 2022-08-11 03:46 | ED_ITS ---
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 Patient states that she has had sore throat, runny nose, congestion in states that her body has aches. Related Data Home Medications Medication Instructions Recorded Confirmed budesonide-formoterol HFA 160 1 puff PO BID 09/18/21 07/13/22 mcg-4.5 mcg/actuation aerosol inhaler (Symbicort) gabapentin 400 mg capsule 1 cap PO BID 09/18/21 07/13/22 hydroxyzine pamoate 50 mg capsule 50 mg PO DAILY 09/18/21 07/13/22 hydroxyzine pamoate 50 mg capsule 100 mg PO BEDTIME PRN Anxiety 09/18/21 3 paroxetine HCl 40 mg tablet 1 tab PO BEDTIME 09/18/21 07/13/22 prazosin 5 mg capsule 1 cap PO BEDTIME 09/18/21 07/13/22 bupropion HCl 150 mg 24 hr tablet, 1 tab PO DAILY 04/22/22 07/13/22 extended release montelukast 10 mg tablet 1 tab PO DAILY asthma 04/22/22 07/13/22 cyanocobalamin (vitamin B-12) 1 tab sublingual DAILY 07/13/22 07/13/22 1,000 mcg sublingual tablet dicyclomine 20 mg tablet 20 mg PO TID adominal pain 07/13/22 07/13/22 meloxicam 15 mg tablet 1 tab PO DAILY PRN pain 07/13/22 07/13/22 nicotine (polacrilex) 4 mg gum 1 gum PO Q2H PRN Nicotine Cravings 07/13/22 07/13/22 nicotine 21 mg/24 hr daily 1 patch topical DAILY 07/13/22 07/13/22 transdermal patch riboflavin (vitamin B2) 100 mg 2 tab PO BID 07/13/22 07/13/22 tablet (Vitamin B-2) Previous Rx's Medication Instructions Recorded albuterol sulfate 90 mcg/actuation 1 inh inhalation QID PRN shortness 04/06/22 aerosol inhaler of breath or wheezing #8.5 grams pantoprazole 40 mg tablet,delayed 40 mg PO DAILY #14 tabs 05/27/22 release doxycycline monohydrate 100 mg 100 mg PO Q12H #10 caps 07/17/22 capsule loratadine 10 mg tablet 10 mg PO DAILY #7 tabs 07/17/22 polyethylene glycol 3350 17 gram 17 g PO DAILY PRN constipation #30 07/17/22 oral powder packet ea prednisone 20 mg tablet 40 mg PO DAILY #6 tabs 07/17/22 Allergies Allergy/AdvReac Type Severity Reaction Status Date / Time promethazine [From PHENERGAN] Allergy Unknown ITCHING Verified 07/13/22 17:36 codeine [CODEINE] AdvReac Unknown STOMACH Verified 07/13/22 17:36 UPSET morphine [MORPHINE] AdvReac Unknown MORE PAIN Verified 07/13/22 17:36 Review of Systems Review of Systems: Pertinent positives and negatives as stated in HPI PMFSH Past Medical History Source: nursing notes reviewed Medical History Asthma Depression Disc herniation H. pylori infection Migraine Morbid obesity Sinus infection Surgical History History of Social History Social History Household Members: Family Housing: Apartment Do you presently have visiting nurse or other home services: No Alcohol intake: never Patient Tobacco Use Status: Never used Tobacco Tobacco use type: Cigarette Second Hand Smoke Exposure: Yes Advance Directives: Yes Advance Directives on File: Yes Advance Directives Date on File: 05/12/22 service: No Current occupational status: employed Physical Exam Vital Signs: Vital Signs: Last Vital Signs Temp 100.1 F 08/11/22 04:00 Pulse 123 H 08/11/22 04:00 Resp 20 08/11/22 04:00 BP 125/79 08/11/22 04:00 Pulse Ox 94 08/11/22 04:00 O2 Del Method Nasal Cannula 08/11/22 04:00 O2 Flow Rate 2 08/11/22 04:00 Oxygen Flow Rate 10 08/11/22 02:57 BMI result Body Mass Index 42.3 VITAL SIGNS: Reviewed. GENERAL: Well developed, well nourished, in no acute distress. HEAD: Normocephalic/atraumatic EYES: PERRLA, EOMI EARS: Ext canals without abnormality, TMs non-bulging and non-erythematous NOSE: Nares patent bilateral OROPHARYNX: no oral lesions noted, posterior pharynx clear NECK: Supple, no adenopathy LUNGS: Normal breath sounds. No adventitious sounds or accessory muscle use. SpO2<95> CARDIOVASCULAR: Regular rate and rhythm without noted murmurs, no JVD or lower extremity edema. ABDOMEN: Soft, non-tender, non-distended with bowel sounds. MUSCULOSKELETAL: No tenderness, deformities, or effusions noted on gross inspection. EXTREMITIES: No cyanosis, clubbing or edema. SKIN: Inspection of the skin reveals no rashes NEUROLOGIC: Alert and oriented x 4. Strength and sensation to light touch were grossly intact x 4. Medications Administered Discontinued Medications Generic Name Dose Route Start Last Admin Trade Name Freq PRN Reason Stop Dose Admin Acetaminophen 975 mg 08/11/22 04:07 08/11/22 04:20 Acetaminophen 325 Mg Tablet PO 08/11/22 04:08 975 mg ONCE ONE Administration Piperacillin Sod/Tazobactam 50 mls @ 100 mls/hr 08/11/22 04:06 08/11/22 04:20 Sod 3.375 gm/ Sodium Chloride IV 08/11/22 04:35 100 mls/hr ONCE ONE Administration Sodium Chloride 500 mls @ 999 mls/hr 08/11/22 04:15 08/11/22 04:21 Ns IV 08/11/22 04:45 999 mls/hr .Q31M KRYSTLE Administration Methylprednisolone Sodium Succinate 125 mg 08/11/22 03:48 08/11/22 03:59 Methylprednisolone Sod Succ 125 Mg/2 Ml Vial IVPUSH 08/11/22 03:49 125 mg ONCE ONE Administration Ondansetron HCl 4 mg 08/11/22 04:02 08/11/22 04:20 Ondansetron Hcl 4 Mg/2 Ml Vial IVPUSH 08/11/22 04:03 4 mg ONCE ONE Administration Medical Decision Making Medical Decision Making MDM Narrative: 41-year-old female with history and clinical presentation suggestive of exacerbation of underlying asthma. Clinically, lungs appear to be without significant expiratory wheeze but increased work of breathing. She is oxygenating well on her 2 L of nasal cannula. Will obtain lab work, administer steroids. 0410: On review of all investigations my interpretation is patient has sepsis, pneumonia with a component of asthma exacerbation. Lactic acid, blood cultures, antibiotics ordered. Patient also received 500 cc normal saline as well as Solu-Medrol. 0413: Discussed case with inpatient hospitalist who accepts admission. Differential Diagnosis Please see the discussion above Consult Healthcare Provider Management of the patient was discussed with: Hospitalist Please see the discussion above Lab Data Please see the discussion above 08/11/22 03:03 08/11/22 03:03 Labs: Lab Results 08/11/22 08/11/22 08/11/22 Range/Units 03:03 03:03 03:03 WBC 20.2 H (4.8-10.8) X10*3/uL RBC 4.71 (4.20-5.50) X10*6/uL Hgb 12.6 (12.0-16.0) g/dl Hct 39.1 (37.0-47.0) % MCV 83.0 (80.0-98.0) fL MCH 26.8 L (27.0-33.0) pg MCHC 32.2 (31.0-35.0) g/dl RDW 15.5 (11.0-16.0) % Plt Count 377 (160-400) X10*3/uL MPV 9.6 (9.4-12.3) fL Immature Gran % (Auto) 0.4 (0.0-0.4) % Neut % (Auto) 77.5 H (45-73) % Lymph % (Auto) 11.3 L (20-40) % [place] % (Auto) 6.0 (2-11) % Eos % (Auto) 4.3 H (0-4) % Baso % (Auto) 0.5 (0-2) % Lymph # (Auto) 2.3 (1.2-4.9) X10*3/uL [place] # (Auto) 1.2 (0.1-1.2) X10*3/uL Eos # (Auto) 0.9 H (0.0-0.4) X10*3/uL Baso # (Auto) 0.1 (0.0-0.2) X10*3/uL Abs Immat Gran (auto) 0.09 H (0.00-0.03) X10*3/uL Absolute Neuts (auto) 15.6 H (2.0-8.3) x10*3/uL Absolute Nucleated RBC 0.000 (0.0-0.012) X10*3/uL Nucleated RBC % (auto) 0.0 (0.0-0.2) /100WBC VBG pH VBG pCO2 VBG pO2 VBG HCO3 VBG O2 Saturation VBG Base Excess Sodium 137 (135-145) mmol/L Potassium 4.6 (3.3-5.1) mmol/L Chloride 104 (96-108) mmol/L Carbon Dioxide 23 (22-29) mmol/L Anion Gap 15 (12-20) BUN 9 (9-16) mg/dL Creatinine 0.90 (0.5-1.4) mg/dL Estim Creat Clear Calc 110.4 Estimated GFR > 60 Random Glucose 157 H (60-115) mg/dL Lactic Acid (0.5-2.0) mmol/L Calcium 8.9 (8.4-10.2) mg/dL Troponin I High Sens < 2.7 (<3.5-17.0) ng/L COVID-19 ([facility]) (Negative) COVID-19 Clin Com 08/11/22 08/11/22 08/11/22 Range/Units 03:03 03:05 03:33 WBC (4.8-10.8) X10*3/uL RBC (4.20-5.50) X10*6/uL Hgb (12.0-16.0) g/dl Hct (37.0-47.0) % MCV (80.0-98.0) fL MCH (27.0-33.0) pg MCHC (31.0-35.0) g/dl RDW (11.0-16.0) % Plt Count (160-400) X10*3/uL MPV (9.4-12.3) fL Immature Gran % (Auto) (0.0-0.4) % Neut % (Auto) (45-73) % Lymph % (Auto) (20-40) % [place] % (Auto) (2-11) % Eos % (Auto) (0-4) % Baso % (Auto) (0-2) % Lymph # (Auto) (1.2-4.9) X10*3/uL [place] # (Auto) (0.1-1.2) X10*3/uL Eos # (Auto) (0.0-0.4) X10*3/uL Baso # (Auto) (0.0-0.2) X10*3/uL Abs Immat Gran (auto) (0.00-0.03) X10*3/uL Absolute Neuts (auto) (2.0-8.3) x10*3/uL Absolute Nucleated RBC (0.0-0.012) X10*3/uL Nucleated RBC % (auto) (0.0-0.2) /100WBC VBG pH Cancelled 7.43 VBG pCO2 Cancelled 39 VBG pO2 Cancelled 48 VBG HCO3 Cancelled 26 VBG O2 Saturation Cancelled 83.0 VBG Base Excess Cancelled 2.1 Sodium (135-145) mmol/L Potassium (3.3-5.1) mmol/L Chloride (96-108) mmol/L Carbon Dioxide (22-29) mmol/L Anion Gap (12-20) BUN (9-16) mg/dL Creatinine (0.5-1.4) mg/dL Estim Creat Clear Calc Estimated GFR Random Glucose (60-115) mg/dL Lactic Acid (0.5-2.0) mmol/L Calcium (8.4-10.2) mg/dL Troponin I High Sens (<3.5-17.0) ng/L COVID-19 ([facility]) Negative (Negative) COVID-19 Clin Com See Note 08/11/22 Range/Units 04:12 WBC (4.8-10.8) X10*3/uL RBC (4.20-5.50) X10*6/uL Hgb (12.0-16.0) g/dl Hct (37.0-47.0) % MCV (80.0-98.0) fL MCH (27.0-33.0) pg MCHC (31.0-35.0) g/dl RDW (11.0-16.0) % Plt Count (160-400) X10*3/uL MPV (9.4-12.3) fL Immature Gran % (Auto) (0.0-0.4) % Neut % (Auto) (45-73) % Lymph % (Auto) (20-40) % [place] % (Auto) (2-11) % Eos % (Auto) (0-4) % Baso % (Auto) (0-2) % Lymph # (Auto) (1.2-4.9) X10*3/uL [place] # (Auto) (0.1-1.2) X10*3/uL Eos # (Auto) (0.0-0.4) X10*3/uL Baso # (Auto) (0.0-0.2) X10*3/uL Abs Immat Gran (auto) (0.00-0.03) X10*3/uL Absolute Neuts (auto) (2.0-8.3) x10*3/uL Absolute Nucleated RBC (0.0-0.012) X10*3/uL Nucleated RBC % (auto) (0.0-0.2) /100WBC VBG pH VBG pCO2 VBG pO2 VBG HCO3 VBG O2 Saturation VBG Base Excess Sodium (135-145) mmol/L Potassium (3.3-5.1) mmol/L Chloride (96-108) mmol/L Carbon Dioxide (22-29) mmol/L Anion Gap (12-20) BUN (9-16) mg/dL Creatinine (0.5-1.4) mg/dL Estim Creat Clear Calc Estimated GFR Random Glucose (60-115) mg/dL Lactic Acid 1.5 (0.5-2.0) mmol/L Calcium (8.4-10.2) mg/dL Troponin I High Sens (<3.5-17.0) ng/L COVID-19 ([facility]) (Negative) COVID-19 Clin Com Independent Interpretation I performed an independent interpretation of an: EKG Interpretation: Sinus tachycardia, HR-123, no STEMI, OH/QRS/QTC is within normal limits. Radiology Impression Radiologist Impression: My interpretation is in agreement with radiology's impression of the imaging studies. External Record Review External record reviewed: Outpatient record and Prior outpatient labs Discharge Plan Discharge Clinical Impression: Asthma exacerbation, Sepsis, Pneumonia Patient Disposition: Admitted As Inpatient
[2022-08-11 03:56] LABS: COVID-19 Test Negative (Negative); IDNOW Serial# 6674DD1D
--- NOTE | 2022-08-11 03:57 | PC.NURSE ---
Pt O2 desat to 90%. Pt placed on O2 at 2 lpm via NC. SpO2 at 94% with O2.
[2022-08-11] MEDS: methylPREDNISolone Sod Succ 125 MG/2 ML VIAL IVPUSH (03:59)
--- NOTE | 2022-08-11 04:00 | PC.NURSE ---
late entry- this rn reassessed pt VS. oral temp 100.3. dr johnson made aware. awaiting orders at this time
[2022-08-11] MEDS: ondansetron HCL 4 MG/2 ML VIAL IVPUSH (04:20)
[2022-08-11] MEDS: Piperacillin Sodium/Tazobactam 3.375 GM in 0.9 % Sodium Chloride 50 ML IV (04:20)
[2022-08-11] MEDS: Acetaminophen 325 MG TABLET 975 MG PO (04:20)
[2022-08-11] MEDS: 0.9 % Sodium Chloride 500 ML 999 ML IV (04:21)
[2022-08-11 04:29] LABS: Lactic Acid 1.5 mmol/L (0.5-2.0)
--- NOTE | 2022-08-11 06:16 | PM.IMHP ---
History of Present Illness Date of Service: 08/11/22 Chief Complaint: Shortness of breath 41-year-old female with past medical history of asthma, migraine headaches, herniated disc, recent ICU admission for cor pulmonale comes into the hospital today with complaints of shortness of breath. Patient states shortness of breath started day prior to presentation, reports increased cough as well as phlegm. Reports chest pain with cough. Denies any abdominal pain, has nausea and some vomiting, no diarrhea constipation, no urinary symptoms and no lower extremity edema. On arrival to the ED patient tachycardic with a heart rate of 130, tachypneic with a respiratory rate of 28, blood pressure stable Labs are significant for WBC count of 20.2, labs otherwise unremarkable, troponin negative, COVID-19 negative EKG shows sinus tachycardia Chest x-ray showed prominent central vasculature and surrounding institutions similar to prior which may reflect congestion versus inter social infection Patient will be admitted for further management Review of Systems Review of Systems: Yes all other systems are reviewed and are negative [facility] Medical History Asthma Depression Disc herniation H. pylori infection Migraine Morbid obesity Sinus infection Surgical History History of Social History Household Members: Family Housing: Apartment Do you presently have visiting nurse or other home services: No Alcohol intake: never Patient Tobacco Use Status: Never used Tobacco Tobacco use type: Cigarette Second Hand Smoke Exposure: Yes Advance Directives: Yes Advance Directives on File: Yes Advance Directives Date on File: 05/12/22 service: No Current occupational status: employed Meds Allergies Allergy/AdvReac Type Severity Reaction Status Date / Time promethazine [From PHENERGAN] Allergy Unknown ITCHING Verified 07/13/22 17:36 codeine [CODEINE] AdvReac Unknown STOMACH Verified 07/13/22 17:36 UPSET morphine [MORPHINE] AdvReac Unknown MORE PAIN Verified 07/13/22 17:36 Active Medications: Current Medications Acetaminophen (Acetaminophen 325 Mg Tablet) 650 mg PO Q6H PRN PRN Reason: Pain, Mild (Pain Scale 1-3) Docusate Sodium (Docusate Sodium 100 Mg Capsule) 100 mg PO DAILY PRN PRN Reason: Constipation Enoxaparin Sodium (Enoxaparin Sodium 40 Mg/0.4 Ml Syringe) 40 mg SUBCUT Q24H KRYSTLE Ondansetron HCl (Ondansetron Hcl 4 Mg/2 Ml Vial) 4 mg IVPUSH Q8H PRN PRN Reason: Nausea and Vomiting Sodium Chloride (0.9 % Sodium Chloride Flush 3 Ml Syringe) 3 ml IVFLUSH QSHIFT [facility] Home Medications Medication Instructions Recorded Confirmed Last Taken Type budesonide-formoterol HFA 160 1 puff PO BID 09/18/21 07/13/22 07/13/22 History mcg-4.5 mcg/actuation aerosol inhaler (Symbicort) gabapentin 400 mg capsule 1 cap PO BID 09/18/21 07/13/22 07/13/22 History hydroxyzine pamoate 50 mg capsule 50 mg PO DAILY 09/18/21 07/13/22 07/13/22 History hydroxyzine pamoate 50 mg capsule 100 mg PO BEDTIME PRN Anxiety 09/18/21 07/13/22 09/16/21 History paroxetine HCl 40 mg tablet 1 tab PO BEDTIME 09/18/21 07/13/22 07/12/22 History prazosin 5 mg capsule 1 cap PO BEDTIME 09/18/21 07/13/22 07/12/22 History bupropion HCl 150 mg 24 hr tablet, 1 tab PO DAILY 04/22/22 07/13/22 07/13/22 History extended release montelukast 10 mg tablet 1 tab PO DAILY asthma 04/22/22 07/13/22 07/12/22 History cyanocobalamin (vitamin B-12) 1 tab sublingual DAILY 07/13/22 07/13/22 07/13/22 History 1,000 mcg sublingual tablet dicyclomine 20 mg tablet 20 mg PO TID adominal pain 07/13/22 07/13/22 07/13/22 History meloxicam 15 mg tablet 1 tab PO DAILY PRN pain 07/13/22 07/13/22 Unknown History nicotine (polacrilex) 4 mg gum 1 gum PO Q2H PRN Nicotine Cravings 07/13/22 07/13/22 Unknown History nicotine 21 mg/24 hr daily 1 patch topical DAILY 07/13/22 07/13/22 07/13/22 History transdermal patch riboflavin (vitamin B2) 100 mg 2 tab PO BID 07/13/22 07/13/22 07/13/22 History tablet (Vitamin B-2) Physical Exam Vital Signs and Narrative: Vital Signs: Last Vital Signs Temp 98.7 F 08/11/22 05:50 Pulse 96 08/11/22 05:50 Resp 21 H 08/11/22 05:50 BP 112/67 08/11/22 05:50 Pulse Ox 95 08/11/22 05:50 O2 Del Method Nasal Cannula 08/11/22 05:50 O2 Flow Rate 2 08/11/22 05:50 Oxygen Flow Rate 10 08/11/22 02:57 BMI result Body Mass Index 42.3 Const: General: cooperative and no acute distress Orientation/consciousness: patient oriented x3 Eyes: General: appearance normal, both eyes and all related structures Resp: Other: Patient has crackles bilaterally Effort & Inspection: normal respiratory effort Cardio: Rate: regular rate Rhythm: regular rhythm GI: Palpation (GI): Soft to palpation Auscultation: normal bowel sounds Skin: General skin exam: no rashes or lesions noted Neuro: General: patient oriented x3 Cognition (Neuro): normal cognition Extrem: General: Yes normal to inspection and Yes no pedal edema Results Labs 08/11/22 03:03 08/11/22 03:03 Labs: Laboratory Results - last 24 hr 08/11/22 08/11/22 08/11/22 03:03 03:03 03:03 MCV 83.0 MCH 26.8 L MCHC 32.2 RDW 15.5 Plt Count 377 MPV 9.6 Immature Gran % (Auto) 0.4 Neut % (Auto) 77.5 H Lymph % (Auto) 11.3 L [place] % (Auto) 6.0 Eos % (Auto) 4.3 H Baso % (Auto) 0.5 Lymph # (Auto) 2.3 [place] # (Auto) 1.2 Eos # (Auto) 0.9 H Baso # (Auto) 0.1 Abs Immat Gran (auto) 0.09 H Absolute Neuts (auto) 15.6 H Absolute Nucleated RBC 0.000 Nucleated RBC % (auto) 0.0 VBG pH VBG pCO2 VBG pO2 VBG HCO3 VBG O2 Saturation VBG Base Excess Anion Gap 15 Estim Creat Clear Calc 110.4 Estimated GFR > 60 Random Glucose 157 H Lactic Acid Calcium 8.9 Troponin I High Sens < 2.7 COVID-19 ([facility]) COVID-19 Clin Com 08/11/22 08/11/22 08/11/22 03:03 03:05 03:33 MCV MCH MCHC RDW Plt Count MPV Immature Gran % (Auto) Neut % (Auto) Lymph % (Auto) [place] % (Auto) Eos % (Auto) Baso % (Auto) Lymph # (Auto) [place] # (Auto) Eos # (Auto) Baso # (Auto) Abs Immat Gran (auto) Absolute Neuts (auto) Absolute Nucleated RBC Nucleated RBC % (auto) VBG pH Cancelled 7.43 VBG pCO2 Cancelled 39 VBG pO2 Cancelled 48 VBG HCO3 Cancelled 26 VBG O2 Saturation Cancelled 83.0 VBG Base Excess Cancelled 2.1 Anion Gap Estim Creat Clear Calc Estimated GFR Random Glucose Lactic Acid Calcium Troponin I High Sens COVID-19 ([facility]) Negative COVID-19 Clin Com See Note 08/11/22 04:12 MCV MCH MCHC RDW Plt Count MPV Immature Gran % (Auto) Neut % (Auto) Lymph % (Auto) [place] % (Auto) Eos % (Auto) Baso % (Auto) Lymph # (Auto) [place] # (Auto) Eos # (Auto) Baso # (Auto) Abs Immat Gran (auto) Absolute Neuts (auto) Absolute Nucleated RBC Nucleated RBC % (auto) VBG pH VBG pCO2 VBG pO2 VBG HCO3 VBG O2 Saturation VBG Base Excess Anion Gap Estim Creat Clear Calc Estimated GFR Random Glucose Lactic Acid 1.5 Calcium Troponin I High Sens COVID-19 ([facility]) COVID-19 Clin Com Imaging Radiologist's Impressions: Impressions Chest X-Ray 08/11/22 03:10 IMPRESSION: Prominent central vasculature and surrounding interstitium, similar to prior and which may reflect congestion versus interstitial infection. Assessment and Plan (1) Sepsis: Status: Acute (2) Asthma exacerbation: Status: Acute (3) Pneumonia: Status: Acute Plan 41-year-old female with past medical history of poorly controlled asthma presents to the hospital with complaints of shortness of breath found to have possible pneumonia # sepsis - tachycardia, tachypnea, leukocytosis - no urinary symptoms, likely source respiratory pneumonia - will treat with IV antibiotics - will obtain CT of the chest - follow cultures # dyspnea - asthma exacerbation versus pneumonia versus CHF - will obtain chest CT, pending BNP - x-ray nonspecific but shows congestion versus infection - given leukocytosis, tachycardia and tachypnea will treat for pneumonia # asthma exacerbation - his shortness of breath, cough and increased sputum production - will treat with DuoNeb p.r.n., as well as scheduled - no wheezing, will hold off on steroids - IV antibiotics pending CT of the chest # pneumonia - chest x-ray nonspecific but given tachycardia, leukocytosis, tachypnea will treat for pneumonia - follow cultures # migraine headaches - continue home medications DVT prophylaxis: Lovenox Given patient's sepsis needing IV antibiotics patient require minimum 2 night inpatient hospital stay for further management and monitoring Time Spent With Patient Time: Total time managing care of this patient today ____ minutes. Quality Stroke Does the patient have a stroke diagnosis?: No VTE Prior VTE?: No VTE Risk Level:: Medical - moderate - high VTE Device Contraindication: Treatment Not Indicated VTE Drug Contraindication: N/A - Med Ordered
[2022-08-11] MEDS: Azithromycin 500 MG in 0.9 % Sodium Chloride 250 ML 125 MG IV (08:13)
[2022-08-11 08:14] LABS: B Type Natriuretic Peptide 12 pg/mL (<100)
[2022-08-11] MEDS: cefTRIAXone sodium 1 GM in 0.9 % Sodium Chloride 50 ML IV (08:14)
[2022-08-11] MEDS: Enoxaparin Sodium 40 MG/0.4 ML SYRINGE SUBCUT (08:14)
--- NOTE | 2022-08-11 08:31 | PHA.MEDREC ---
Pharmacy Consult ? Medication Reconciliation Pharmacy has completed the medication reconciliation.
--- NOTE | 2022-08-11 09:36 | PC.NURSE ---
OOB TO COMMODE, HAS PERIODS OF INCREASED RR IS ON 2LFIO2 SATS BETWEEN 96-98% SLIGHT INS/EXP WHEEZING NOTED, NON PRODUCTIVE DRY COUGH
[2022-08-11] MEDS: Artificial Tears 15 ML DROPS 1 DROP EYE-BOTH ×2 (11:38→20:05)
[2022-08-11] MEDS: Acetaminophen 325 MG TABLET 650 MG PO ×2 (13:50→20:07)
--- NOTE | 2022-08-11 15:05 | PM.EVENT ---
Event Note Date of Service: 08/11/22 Event Note: Patient already seen by hospitalist team this morning. Seen and examined again. Still has short of breath with minimal exertion, has some cough ,talking in the smallsentences. Physical exam: Unchanged from H&P Sepsis secondary to pneumonia, asthma exacerbation(mild intermittent asthma) Continue nebs, steroids, antibiotics. Monitor respiratory status closely, taper oxygen Time Spent With Patient Time: Total time managing care of this patient today ____ minutes.
[2022-08-11] MEDS: hydrOXYzine HCL 50 MG TABLET PO (16:38)
[2022-08-11] MEDS: Dicyclomine HCl 10 MG CAPSULE 20 MG PO (16:38)
[2022-08-11] MEDS: 0.9 % Sodium Chloride Flush 3 ML SYRINGE IVFLUSH (16:47)
[2022-08-11] MEDS: Famotidine/PF 20 MG/2 ML VIAL IVPUSH (17:15)
[2022-08-11] MEDS: PARoxetine HCL 40 MG TABLET PO (18:40)
[2022-08-11] MEDS: Gabapentin 400 MG CAPSULE PO (20:04)
[2022-08-11] MEDS: Prazosin HCL 5 MG CAPSULE PO (20:04)
[2022-08-12] VITALS (7 sets, daily range): BP systolic 110–148; BP diastolic 56–78; PULSE 86–92; RESP 17–18; TEMP 36–36.5; O2SAT 92–96
[2022-08-12] MEDS: Omeprazole 20 MG CAPSULE.DR PO ×2 (06:20→15:24)
[2022-08-12] MEDS: cefTRIAXone sodium 1 GM in 0.9 % Sodium Chloride 50 ML IV (06:20)
[2022-08-12 06:51] LABS: Alanine Aminotransferase 16 U/L (0-31); Albumin Level 3.3 g/dL (3.5-5.0); Alkaline Phosphatase 103 U/L (39-117); Anion Gap 12 (12-20); Aspartate Amino Transferase 9 U/L (5-31); Bilirubin Total 0.3 mg/dL (0.0-1.0); Blood Urea Nitrogen 13 mg/dL (9-16); Carbon Dioxide 25 mmol/L (22-29); Chloride 107 mmol/L (96-108); Creatinine Clr Calc Pharmacy 130.8; Estimated Glomerular Filt Rate > 60; Glucose Random 123 mg/dL (60-115); Potassium 4.6 mmol/L (3.3-5.1); Sodium 139 mmol/L (135-145); Total Protein 5.6 g/dL (6.5-8.0)
[2022-08-12] MEDS: Nicotine 21 MG PATCH.TD24 TRANSDERMA (07:22)
[2022-08-12] MEDS: Dicyclomine HCl 10 MG CAPSULE 20 MG PO ×3 (07:23→15:24)
[2022-08-12] MEDS: Montelukast Sodium 10 MG TABLET PO (07:23)
[2022-08-12] MEDS: buPROPion HCl XL 150 MG TAB.ER.24H PO (07:23)
[2022-08-12] MEDS: Cyanocobalamin (Vitamin B-12) 1,000 MCG TABLET 1000 MCG PO (07:23)
[2022-08-12] MEDS: Enoxaparin Sodium 40 MG/0.4 ML SYRINGE SUBCUT (07:23)
[2022-08-12] MEDS: Gabapentin 400 MG CAPSULE PO ×2 (07:23→20:22)
[2022-08-12] MEDS: Azithromycin 500 MG in 0.9 % Sodium Chloride 250 ML 125 MG IV (07:24)
[2022-08-12] MEDS: 0.9 % Sodium Chloride Flush 3 ML SYRINGE IVFLUSH ×3 (07:28→20:23)
[2022-08-12] MEDS: predniSONE 20 MG TABLET 40 MG PO (07:31)
[2022-08-12] MEDS: Fluticasone/Vilanterol 200/25 BLST.W.DEV 1 PUFF INHALE (08:03)
[2022-08-12] MEDS: ondansetron HCL 4 MG/2 ML VIAL IVPUSH (08:22)
[2022-08-12] MEDS: Acetaminophen 325 MG TABLET 650 MG PO (08:22)
--- NOTE | 2022-08-12 09:42 | PC.NURSE ---
pt encouraged to get out of bed and sit in chair . pt declined at this time will attempt again
--- NOTE | 2022-08-12 10:42 | PC.NURSE ---
Pt weened from 2L OF OXYGEN TO 1 L O2 SATS 95%. will discontinue oxygen and monitor.
--- NOTE | 2022-08-12 12:05 | MHC.CM.PN ---
Female 41 DX Sepsis She lives with her . She states that she is independent. She Has [facility] services for Med Management. She is receiving [employer] services thru a [facility]. Her PCP is Dr Saba Ayers @ [facility]. Patient has Home Oxygen. She does not recall the coding assistant. DP Resume services that are already in place. Pts spouse will provide transport home.
--- NOTE | 2022-08-12 12:45 | PC.NURSE ---
O2 SATS on room air 95%
[2022-08-12 12:54] LABS: Appearance Urine Clear; Color Urine Yellow; Glucose Urine UA Negative (Negative); Leukocyte Esterase Urine Negative (Negative); Nitrite Urine Negative (Negative); Specific Gravity - Urine >= 1.030 (1.005-1.025); Urine Blood Negative (Negative); Urine Ketones Negative (Negative); Urine Protein Negative (Neg-Trace)
--- NOTE | 2022-08-12 12:57 | HO.PM.IMPN ---
Subjective Subjective Date of Service: 08/12/22 Interval History: Sepsis secondary to pneumonia, asthma exacerbation(mild intermittent asthma) Review of Systems Minimum improvement, shortness of breath seems similar to yesterday. Denies any chest pain, still has cough. Physical Exam Vital Signs: Vital Signs: Last Vital Signs Temp 97.1 F 08/12/22 07:30 Pulse 90 08/12/22 07:30 Resp 18 08/12/22 08:04 BP 111/56 L 08/12/22 07:30 Pulse Ox 95 08/12/22 12:46 O2 Del Method Room Air 08/12/22 12:46 O2 Flow Rate 2.0 08/12/22 07:30 Oxygen Flow Rate 10 08/11/22 02:57 BMI result Body Mass Index 42.3 Appearance: Alert.? Oriented X3.? not in distress. cvs: rrr, [id number] . res: clear to auscultation ,no rhonchii or wheezing abd: no rebound or guarding ,nt, bs present. ext pulses present , no cyanosis ,Gait well balanced well coordinated. neuro: axo3 , nonfocal. Objective Data Active Medications Acetaminophen (Acetaminophen 325 Mg Tablet) 650 mg PO Q6H PRN PRN Reason: Pain, Mild (Pain Scale 1-3) Last Admin: 08/12/22 08:22 Dose: 650 mg Documented By: JONATHON Artificial Tears (Artificial Tears 15 Ml Drops) 1 drop EYE-BOTH Q4H PRN PRN Reason: Dry Eyes Last Admin: 08/11/22 20:05 Dose: 1 drop Documented By: ALEJANDRO Bupropion HCl (Bupropion Hcl Xl 150 Mg Tab.Er.24h) 150 mg PO DAILY [facility] Last Admin: 08/12/22 07:23 Dose: 150 mg Documented By: JONATHON Cyanocobalamin (Cyanocobalamin (Vitamin B-12) 1,000 Mcg Tablet) 1,000 mcg PO DAILY [facility] Last Admin: 08/12/22 07:23 Dose: 1,000 mcg Documented By: JONATHON Dicyclomine HCl (Dicyclomine Hcl 10 Mg Capsule) 20 mg PO TIDAC [facility] Last Admin: 08/12/22 10:41 Dose: 20 mg Documented By: JONATHON Docusate Sodium (Docusate Sodium 100 Mg Capsule) 100 mg PO DAILY PRN PRN Reason: Constipation Enoxaparin Sodium (Enoxaparin Sodium 40 Mg/0.4 Ml Syringe) 40 mg SUBCUT Q24H [facility] Last Admin: 08/12/22 07:23 Dose: 40 mg Documented By: JONATHON Fluticasone/Vilanterol (Fluticasone/Vilanterol 200/25 Blst.W.Dev) 1 puff INHALE DAILY [facility] Last Admin: 08/12/22 08:03 Dose: 1 puff Documented By: YARELI Gabapentin (Gabapentin 400 Mg Capsule) 400 mg PO BID [facility] Last Admin: 08/12/22 07:23 Dose: 400 mg Documented By: JONATHON Hydroxyzine HCl (Hydroxyzine Hcl 50 Mg Tablet) 50 mg PO DAILY PRN PRN Reason: Anxiety Last Admin: 08/11/22 16:38 Dose: 50 mg Documented By: ИРИНА Hydroxyzine HCl (Hydroxyzine Hcl 50 Mg Tablet) 100 mg PO BEDTIME PRN PRN Reason: Anxiety Ceftriaxone Sodium 1 gm/ (Sodium Chloride) 50 mls @ 100 mls/hr IV Q24H [facility] Last Infusion: 08/12/22 07:12 Dose: 0 mls/hr Documented By: JONATHON Azithromycin 500 mg/ Sodium (Chloride) 250 mls @ 125 mls/hr IV Q24H [facility] Last Infusion: 08/12/22 09:41 Dose: 0 mls/hr Documented By: JONATHON Montelukast Sodium (Montelukast Sodium 10 Mg Tablet) 10 mg PO DAILY [facility] Last Admin: 08/12/22 07:23 Dose: 10 mg Documented By: JONATHON Nicotine (Nicotine 21 Mg Patch.Td24) 21 mg TRANSDERMA DAILY [facility] Last Admin: 08/12/22 07:22 Dose: 21 mg Documented By: JONATHON Omeprazole (Omeprazole 20 Mg Capsule.Dr) 20 mg PO BID@0630,1630 [facility] Last Admin: 08/12/22 06:20 Dose: 20 mg Documented By: ALEJANDRO Ondansetron HCl (Ondansetron Hcl 4 Mg/2 Ml Vial) 4 mg IVPUSH Q8H PRN PRN Reason: Nausea and Vomiting Last Admin: 08/12/22 08:22 Dose: 4 mg Documented By: JONATHON Paroxetine HCl (Paroxetine Hcl 40 Mg Tablet) 40 mg PO BEDTIME [facility] Last Admin: 08/11/22 18:40 Dose: 40 mg Documented By: ИРИНА Polyethylene Glycol (Polyethylene Glycol 3350 17 Gm Powd.Pack) 17 gm PO DAILY PRN PRN Reason: constipation Prazosin HCl (Prazosin Hcl 5 Mg Capsule) 5 mg PO BEDTIME [facility]; Protocol Last Admin: 08/11/22 20:04 Dose: 5 mg Documented By: ALEJANDRO Prednisone (Prednisone 20 Mg Tablet) 40 mg PO DAILY [facility] Last Admin: 08/12/22 07:31 Dose: 40 mg Documented By: JONATHON Sodium Chloride (0.9 % Sodium Chloride Flush 3 Ml Syringe) 3 ml IVFLUSH QSHIFT [facility] Last Admin: 08/12/22 07:28 Dose: 3 ml Documented By: JONATHON Labs 08/11/22 03:03 08/12/22 05:30 Labs: Laboratory Results - last 24 hr 08/12/22 05:30 Anion Gap 12 Estim Creat Clear Calc 130.8 Estimated GFR > 60 Random Glucose 123 H Calcium 9.0 Total Bilirubin 0.3 AST 9 ALT 16 Alkaline Phosphatase 103 Total Protein 5.6 L Albumin 3.3 L Microbiology Microbiology Results: Microbiology 08/11/22 04:12 Blood Culture - Preliminary Blood - Venous No growth after 24 hours. 08/11/22 04:12 Blood Culture - Preliminary Blood - Venous No growth after 24 hours. Assessment and Plan (1) Asthma exacerbation: Status: Acute (2) Sepsis: Status: Acute (3) Pneumonia: Status: Acute Plan 41-year-old female with past medical history of poorly controlled asthma presents to the hospital with complaints of shortness of breath found to have possible pneumonia sepsis sec to pneumonia /asthma exacerbation tachycardia, tachypnea seems improved Shortness of breath still similar to yesterday leukocytosis trending up, blood cultures pending ?CT/CT chest : Nonspecific bilateral patchy groundglass and airspace opacities? continue iv antibiotics ceftriaxone/azithromycin day 2. asthma exacerbation(mild intermittent asthma ) - his shortness of breath, cough and increased sputum production Continue nebs, steroids. migraine headaches- continue home medications. Obesity: Encouraged to lose weight. DVT prophylaxis:? Lovenox Need for inpatient: sepsis needing IV antibiotics, blood culture pending, also respiratory status is not optimally yet Time Spent With Patient Time: Total time managing care of this patient today ____ minutes. Quality Stroke Does the patient have a stroke diagnosis?: No VTE Prior VTE?: No VTE Risk Level:: Medical - moderate - high VTE Device Contraindication: Treatment Not Indicated VTE Drug Contraindication: N/A - Med Ordered
[2022-08-12] MEDS: polyethylene glycoL 3350 17 GM POWD.PACK PO (15:28)
[2022-08-12] MEDS: Prazosin HCL 5 MG CAPSULE PO (20:22)
[2022-08-12] MEDS: PARoxetine HCL 40 MG TABLET PO (20:22)
[2022-08-13 04:00] VITALS: BP 144/83; PULSE 91; RESP 20; TEMP 36.2; O2SAT 96
[2022-08-13] MEDS: Acetaminophen 325 MG TABLET 650 MG PO ×2 (05:04→20:05)
[2022-08-13] MEDS: cefTRIAXone sodium 1 GM in 0.9 % Sodium Chloride 50 ML IV (06:03)
[2022-08-13] MEDS: Enoxaparin Sodium 40 MG/0.4 ML SYRINGE SUBCUT (06:03)
[2022-08-13] MEDS: Omeprazole 20 MG CAPSULE.DR PO ×2 (06:03→17:05)
[2022-08-13] MEDS: Azithromycin 500 MG in 0.9 % Sodium Chloride 250 ML 125 MG IV (06:04)
[2022-08-13 06:42] LABS: Hematocrit 35.2 % (37.0-47.0); Hemoglobin 11.3 g/dl (12.0-16.0); Mean Corpuscular HGB Conc 32.1 g/dl (31.0-35.0); Mean Corpuscular Hemoglobin 26.8 pg (27.0-33.0); Mean Corpuscular Volume 83.6 fL (80.0-98.0); Mean Platelet Volume 10.5 fL (9.4-12.3); Platelet Count 387 X10*3/uL (160-400); Red Blood Count 4.21 X10*6/uL (4.20-5.50); Red Cell Distribution Width 15.6 % (11.0-16.0); White Blood Count 15.5 X10*3/uL (4.8-10.8)
[2022-08-13] MEDS: Fluticasone/Vilanterol 200/25 BLST.W.DEV 1 PUFF INHALE (07:49)
[2022-08-13 07:50] VITALS: PULSE 80; RESP 16; O2SAT 97
[2022-08-13] MEDS: Nicotine 21 MG PATCH.TD24 TRANSDERMA (07:58)
[2022-08-13] MEDS: ondansetron HCL 4 MG/2 ML VIAL IVPUSH (07:59)
[2022-08-13] MEDS: Dicyclomine HCl 10 MG CAPSULE 20 MG PO ×3 (07:59→17:05)
[2022-08-13] MEDS: Montelukast Sodium 10 MG TABLET PO (07:59)
[2022-08-13] MEDS: buPROPion HCl XL 150 MG TAB.ER.24H PO (07:59)
[2022-08-13] MEDS: predniSONE 20 MG TABLET 40 MG PO (08:00)
[2022-08-13] MEDS: Cyanocobalamin (Vitamin B-12) 1,000 MCG TABLET 1000 MCG PO (08:00)
[2022-08-13] MEDS: Gabapentin 400 MG CAPSULE PO ×2 (08:00→20:05)
[2022-08-13 08:11] VITALS: BP 131/81; PULSE 84; RESP 20; TEMP 36.6; O2SAT 93
[2022-08-13] MEDS: Docusate Sodium 100 MG CAPSULE PO (09:56)
[2022-08-13] MEDS: polyethylene glycoL 3350 17 GM POWD.PACK PO ×2 (09:56→20:05)
--- NOTE | 2022-08-13 12:18 | MHC.CM.PN ---
Per MD rounds discharge is anticipated today. A Psych consult ordered for anxiety/panic is pending. DP Home resume [employer] and [employer]. Pts spouse will provide transportation home.
[2022-08-13] MEDS: Milk of Magnesia 30 ML ORAL.SUSP 15 ML PO (12:29)
--- NOTE | 2022-08-13 13:08 | P.PNIM_ITS ---
Subjective Subjective Date of Service: 08/14/22 Interval History: asthma,pneumonia ,anxiety,constipation Review of Systems has some constipation sob some improvement Physical Exam Vital Signs: Vital Signs: Last Vital Signs Temp 97.9 F 08/13/22 08:11 Pulse 84 08/13/22 08:11 Resp 20 08/13/22 08:11 BP 131/81 08/13/22 08:11 Pulse Ox 93 08/13/22 08:11 O2 Del Method Room Air 08/13/22 08:11 O2 Flow Rate 2.0 08/12/22 07:30 Oxygen Flow Rate 10 08/11/22 02:57 BMI result Body Mass Index 42.3 Appearance: Alert.? Oriented X3.? some sob. cvs: rrr, [id number] . res: air entry slightly diminshed at bases,b/l wheezing abd: no rebound or guarding ,nt, bs present. ext pulses present , no cyanosis. neuro: axo3 , nonfocal. Objective Data Active Medications Acetaminophen (Acetaminophen 325 Mg Tablet) 650 mg PO Q6H PRN PRN Reason: Pain, Mild (Pain Scale 1-3) Last Admin: 08/13/22 05:04 Dose: 650 mg Documented By: OSORIO Artificial Tears (Artificial Tears 15 Ml Drops) 1 drop EYE-BOTH Q4H PRN PRN Reason: Dry Eyes Last Admin: 08/11/22 20:05 Dose: 1 drop Documented By: ALEJANDRO Bupropion HCl (Bupropion Hcl Xl 150 Mg Tab.Er.24h) 150 mg PO DAILY [facility] Last Admin: 08/13/22 07:59 Dose: 150 mg Documented By: TING Cyanocobalamin (Cyanocobalamin (Vitamin B-12) 1,000 Mcg Tablet) 1,000 mcg PO DAILY [facility] Last Admin: 08/13/22 08:00 Dose: 1,000 mcg Documented By: TING Dicyclomine HCl (Dicyclomine Hcl 10 Mg Capsule) 20 mg PO TIDAC [facility] Last Admin: 08/13/22 12:29 Dose: 20 mg Documented By: TING Docusate Sodium (Docusate Sodium 100 Mg Capsule) 100 mg PO DAILY PRN PRN Reason: Constipation Last Admin: 08/13/22 09:56 Dose: 100 mg Documented By: TING Enoxaparin Sodium (Enoxaparin Sodium 40 Mg/0.4 Ml Syringe) 40 mg SUBCUT Q24H [facility] Last Admin: 08/13/22 06:03 Dose: 40 mg Documented By: OSORIO Fluticasone/Vilanterol (Fluticasone/Vilanterol 200/25 Blst.W.Dev) 1 puff INHALE DAILY [facility] Last Admin: 08/13/22 07:49 Dose: 1 puff Documented By: PAM Gabapentin (Gabapentin 400 Mg Capsule) 400 mg PO BID [facility] Last Admin: 08/13/22 08:00 Dose: 400 mg Documented By: TING Hydroxyzine HCl (Hydroxyzine Hcl 50 Mg Tablet) 50 mg PO DAILY PRN PRN Reason: Anxiety Last Admin: 08/11/22 16:38 Dose: 50 mg Documented By: ИРИНА Hydroxyzine HCl (Hydroxyzine Hcl 50 Mg Tablet) 100 mg PO BEDTIME PRN PRN Reason: Anxiety Ceftriaxone Sodium 1 gm/ (Sodium Chloride) 50 mls @ 100 mls/hr IV Q24H [facility] Last Infusion: 08/13/22 06:35 Dose: 0 mls/hr Documented By: OSORIO Azithromycin 500 mg/ Sodium (Chloride) 250 mls @ 125 mls/hr IV Q24H [facility] Last Infusion: 08/13/22 09:27 Dose: 0 mls/hr Documented By: TING Montelukast Sodium (Montelukast Sodium 10 Mg Tablet) 10 mg PO DAILY [facility] Last Admin: 08/13/22 07:59 Dose: 10 mg Documented By: TING Nicotine (Nicotine 21 Mg Patch.Td24) 21 mg TRANSDERMA DAILY [facility] Last Admin: 08/13/22 07:58 Dose: 21 mg Documented By: TING Omeprazole (Omeprazole 20 Mg Capsule.Dr) 20 mg PO BID@0630,1630 [facility] Last Admin: 08/13/22 06:03 Dose: 20 mg Documented By: OSORIO Ondansetron HCl (Ondansetron Hcl 4 Mg/2 Ml Vial) 4 mg IVPUSH Q8H PRN PRN Reason: Nausea and Vomiting Last Admin: 08/13/22 07:59 Dose: 4 mg Documented By: TING Paroxetine HCl (Paroxetine Hcl 40 Mg Tablet) 40 mg PO BEDTIME [facility] Last Admin: 08/12/22 20:22 Dose: 40 mg Documented By: OSORIO Polyethylene Glycol (Polyethylene Glycol 3350 17 Gm Powd.Pack) 17 gm PO BID [facility] Prazosin HCl (Prazosin Hcl 5 Mg Capsule) 5 mg PO BEDTIME [facility]; Protocol Last Admin: 08/12/22 20:22 Dose: 5 mg Documented By: OSORIO Prednisone (Prednisone 20 Mg Tablet) 40 mg PO DAILY [facility] Last Admin: 08/13/22 08:00 Dose: 40 mg Documented By: TING Sodium Chloride (0.9 % Sodium Chloride Flush 3 Ml Syringe) 3 ml IVFLUSH QSHIFT [facility] Last Admin: 08/13/22 08:00 Dose: Not Given Documented By: TING Non-Admin Reason: IV Running Labs 08/13/22 05:15 08/12/22 05:30 Labs: Laboratory Results - last 24 hr 08/13/22 05:15 MCV 83.6 MCH 26.8 L MCHC 32.1 RDW 15.6 Plt Count 387 MPV 10.5 Absolute Nucleated RBC 0.000 Nucleated RBC % (auto) 0.0 Microbiology Microbiology Results: Microbiology 08/11/22 04:12 Blood Culture - Preliminary Blood - Venous No growth after 48 hours. 08/11/22 04:12 Blood Culture - Preliminary Blood - Venous No growth after 48 hours. Assessment and Plan (1) Asthma exacerbation: Status: Acute (2) Sepsis: Status: Acute (3) Pneumonia: Status: Acute Plan 41-year-old female with past medical history of poorly controlled asthma presents to the hospital with complaints of shortness of breath found to have possible pneumonia sepsis sec to pneumonia /asthma exacerbation tachycardia, tachypnea seems improved Shortness of breath still similar to yesterday leukocytosis trending up, blood cultures pending ?CT/CT chest : Nonspecific bilateral patchy groundglass and airspace opacities? continue iv antibiotics ceftriaxone/azithromycin day 2. asthma exacerbation(mild intermittent asthma ) - his shortness of breath, cough and increased sputum production Continue nebs, steroids. migraine headaches- continue home medications. Anxiety: continue home meds mood flacuates ? may be steriod contributin add psych eval constipation: continue colace,miralex, added milk of mag. Obesity: Encouraged to lose weight. DVT prophylaxis:? Lovenox Need for inpatient: sepsis needing IV antibiotics, blood culture pending, also respiratory status is not optimally yet Time Spent With Patient Time: Total time managing care of this patient today ____ minutes. Quality Stroke Does the patient have a stroke diagnosis?: No VTE Prior VTE?: No VTE Risk Level:: Medical - moderate - high VTE Device Contraindication: Treatment Not Indicated VTE Drug Contraindication: N/A - Med Ordered
[2022-08-13 15:25] VITALS: BP 155/87; PULSE 78; RESP 18; TEMP 36.8; O2SAT 97
--- NOTE | 2022-08-13 16:48 | PM.PSYCN ---
History of Present Illness Date of Service: 08/13/2022 Chief Complaint: Sepsis Reason for Consult: anxiety Requesting physician: Zena West Sources of Information: patient interviewed and chart reviewed Additional Sources of Information: Message left for pt's OP psych team with [facility]- Dulce is her prescriber [phone]-unable to connect [phone]- message left with medication team. HPI Narrative: 41 yo female, history of asthma, migraine, disc herniation, cor pulmonale, h pylori admitted with shortness of breath, cough, sepsis secondary to pneumonia and asthma exacerbation. Pt experiencing SOB 08/12, difficult to speak. Able to meet today and discuss options with [facility]/owner. Reports a history of anxiety. [facility] Dulce is her prescriber (message left). Currently using Wellbutrin for anxiety and smoking cessation and Paxil. History of trials of Seroquel, Trazodone, Ambien and Trileptal for sx mgt which were not as effective. Discussed with pt a potential SE of Wellbutrin being anxiety-she reports she was not aware of this and had been prescribed this medicine for dual purposes of anxiety mgt/smoking cessation. Discussed trial of Mirtazapine, indicated for major depression, panic disorder, generalized anxiety and PTSD. Medical Evaluation Reviewed: Yes Review of Systems Cardiovascular: Reports dyspnea Respiratory: Reports dyspnea Psychiatric: Reports anxiety and Reports panic attacks [facility] Medical History (Updated 08/13/22 @ 17:06 by Elham Bhakta APRN) Asthma Depression Disc herniation Generalized anxiety disorder H. pylori infection Migraine Morbid obesity Recurrent major depression Sinus infection Surgical History History of Diagnostics Vital Signs (24Hr): Vital Signs - 24 hr 08/12/22 17:16 08/12/22 19:34 08/13/22 04:00 Temperature 97.7 F 97.2 F Pulse Rate 90 92 91 Respiratory Rate 18 20 Blood Pressure 148/78 H 144/83 H Pulse Oximetry 94 92 96 Oxygen Delivery Method Room Air Room Air Room Air 08/13/22 07:50 08/13/22 08:11 08/13/22 15:25 Temperature 97.9 F 98.2 F Pulse Rate 80 84 78 Respiratory Rate 16 20 18 Blood Pressure 131/81 155/87 H Pulse Oximetry 93 97 Oxygen Delivery Method Room Air Room Air BMI result Body Mass Index 42.3 Labs 08/13/22 05:15 08/12/22 05:30 Labs: Laboratory Results - last 48 hr 08/12/22 08/12/22 08/13/22 05:30 12:41 05:15 WBC 15.5 H RBC 4.21 Hgb 11.3 L Hct 35.2 L MCV 83.6 MCH 26.8 L MCHC 32.1 RDW 15.6 Plt Count 387 MPV 10.5 Absolute Nucleated RBC 0.000 Nucleated RBC % (auto) 0.0 Sodium 139 Potassium 4.6 Chloride 107 Carbon Dioxide 25 Anion Gap 12 BUN 13 Creatinine 0.76 Estim Creat Clear Calc 130.8 Estimated GFR > 60 Random Glucose 123 H Calcium 9.0 Total Bilirubin 0.3 AST 9 ALT 16 Alkaline Phosphatase 103 Total Protein 5.6 L Albumin 3.3 L Urine Color Yellow Urine Appearance Clear Urine pH 6.0 Ur Specific [place] >= 1.030 H Urine Protein Negative Urine Glucose (UA) Negative Urine Ketones Negative Urine Blood Negative Urine Nitrite Negative Ur Leukocyte Esterase Negative Imaging Radiology Impressions: ITS Impressions Chest X-Ray 08/11/22 03:10 IMPRESSION: Prominent central vasculature and surrounding interstitium, similar to prior and which may reflect congestion versus interstitial infection. Chest CT 08/11/22 06:45 IMPRESSION: Nonspecific bilateral patchy groundglass and airspace opacities without pleural effusion or cardiomegaly. Findings could represent noninfectious or infectious pneumonitis. No lymphadenopathy. Mental Status Exam Mental Status Exam Patient Appearance: Appropriate Patient Orientation: Person, Place, Time and Situation Level of Consciousness: Alert Patient Behavior: Appropriate, Talkative, Cooperative, Anxious and Good Eye Contact Mood Description: Anxious Affect Description: Anxious Patient Cognition Impaired: No Ability to Follow Directions: Good Speech Pattern: Spontaneous Speech Memory Description: Intact Hallucinations: None Delusions: Not Present Thought Process: Intact and Distracted Depressive Symptoms: Increased Anxiety Abnormal Motor Activity Signs and Symptoms: Restlessness (resolving pneumonia with sepsis and asthma exacerbation) Judgement: Good Medications Medications Current Medications Acetaminophen (Acetaminophen 325 Mg Tablet) 650 mg PO Q6H PRN PRN Reason: Pain, Mild (Pain Scale 1-3) Last Admin: 08/13/22 05:04 Dose: 650 mg Artificial Tears (Artificial Tears 15 Ml Drops) 1 drop EYE-BOTH Q4H PRN PRN Reason: Dry Eyes Last Admin: 08/11/22 20:05 Dose: 1 drop Bupropion HCl (Bupropion Hcl Xl 150 Mg Tab.Er.24h) 150 mg PO DAILY [facility] Last Admin: 08/13/22 07:59 Dose: 150 mg Cyanocobalamin (Cyanocobalamin (Vitamin B-12) 1,000 Mcg Tablet) 1,000 mcg PO DAILY [facility] Last Admin: 08/13/22 08:00 Dose: 1,000 mcg Dicyclomine HCl (Dicyclomine Hcl 10 Mg Capsule) 20 mg PO TIDAC [facility] Last Admin: 08/13/22 12:29 Dose: 20 mg Docusate Sodium (Docusate Sodium 100 Mg Capsule) 100 mg PO DAILY PRN PRN Reason: Constipation Last Admin: 08/13/22 09:56 Dose: 100 mg Enoxaparin Sodium (Enoxaparin Sodium 40 Mg/0.4 Ml Syringe) 40 mg SUBCUT Q24H [facility] Last Admin: 08/13/22 06:03 Dose: 40 mg Fluticasone/Vilanterol (Fluticasone/Vilanterol 200/25 Blst.W.Dev) 1 puff INHALE DAILY [facility] Last Admin: 08/13/22 07:49 Dose: 1 puff Gabapentin (Gabapentin 400 Mg Capsule) 400 mg PO BID [facility] Last Admin: 08/13/22 08:00 Dose: 400 mg Hydroxyzine HCl (Hydroxyzine Hcl 50 Mg Tablet) 50 mg PO DAILY PRN PRN Reason: Anxiety Last Admin: 08/11/22 16:38 Dose: 50 mg Hydroxyzine HCl (Hydroxyzine Hcl 50 Mg Tablet) 100 mg PO BEDTIME PRN PRN Reason: Anxiety Ceftriaxone Sodium 1 gm/ (Sodium Chloride) 50 mls @ 100 mls/hr IV Q24H [facility] Last Infusion: 08/13/22 06:35 Dose: Infused Azithromycin 500 mg/ Sodium (Chloride) 250 mls @ 125 mls/hr IV Q24H [facility] Last Infusion: 08/13/22 09:27 Dose: Infused Montelukast Sodium (Montelukast Sodium 10 Mg Tablet) 10 mg PO DAILY [facility] Last Admin: 08/13/22 07:59 Dose: 10 mg Nicotine (Nicotine 21 Mg Patch.Td24) 21 mg TRANSDERMA DAILY [facility] Last Admin: 08/13/22 07:58 Dose: 21 mg Omeprazole (Omeprazole 20 Mg Capsule.Dr) 20 mg PO BID@0630,1630 [facility] Last Admin: 08/13/22 06:03 Dose: 20 mg Ondansetron HCl (Ondansetron Hcl 4 Mg/2 Ml Vial) 4 mg IVPUSH Q8H PRN PRN Reason: Nausea and Vomiting Last Admin: 08/13/22 07:59 Dose: 4 mg Paroxetine HCl (Paroxetine Hcl 40 Mg Tablet) 40 mg PO BEDTIME [facility] Last Admin: 08/12/22 20:22 Dose: 40 mg Polyethylene Glycol (Polyethylene Glycol 3350 17 Gm Powd.Pack) 17 gm PO BID [facility] Prazosin HCl (Prazosin Hcl 5 Mg Capsule) 5 mg PO BEDTIME [facility]; Protocol Last Admin: 08/12/22 20:22 Dose: 5 mg Prednisone (Prednisone 20 Mg Tablet) 40 mg PO DAILY [facility] Last Admin: 08/13/22 08:00 Dose: 40 mg Sodium Chloride (0.9 % Sodium Chloride Flush 3 Ml Syringe) 3 ml IVFLUSH QSHIFT [facility] Last Admin: 08/13/22 08:00 Dose: Not Given Allergies Allergies Allergy/AdvReac Type Severity Reaction Status Date / Time promethazine [From PHENERGAN] Allergy Unknown ITCHING Verified 07/13/22 17:36 codeine [CODEINE] AdvReac Unknown STOMACH Verified 07/13/22 17:36 UPSET morphine [MORPHINE] AdvReac Unknown MORE PAIN Verified 07/13/22 17:36 Assessment & Plan Assessment & Plan (1) Generalized anxiety disorder: Status: Acute Code(s): F41.1 - Generalized anxiety disorder (2) Recurrent major depression: Status: Acute Code(s): F33.9 - Major depressive disorder, recurrent, unspecified (3) Panic attack as reaction to stress: Status: Acute Code(s): F41.0 - Panic disorder [episodic paroxysmal anxiety]; F43.0 - Acute stress reaction Plan 41 yo female, admitted for sepsis secondary to pneumonia, asthma exacerbation. Pt has a history of anxiety, depression, panic. Currently using Wellbutrin for smoking cessation, anxiety and Paxil. Discussed with pt that Wellbutrin may have a SE of anxiety-she reports her out patient team giving her Wellbutrin for anxiety. Review of mirtazapine-pt is willing to trial. Plan: Mirtazapine 7.5 mg HS. Total time managing care of this patient today ____ minutes. Patient educated on: diagnosis, medication risk/benefits and therapeutic strategies Informed Consent: understands
[2022-08-13] MEDS: 0.9 % Sodium Chloride Flush 3 ML SYRINGE IVFLUSH ×2 (17:06→20:08)
[2022-08-13 19:24] VITALS: BP 134/63; PULSE 85; RESP 18; TEMP 37; O2SAT 95
[2022-08-13] MEDS: Prazosin HCL 5 MG CAPSULE PO (20:05)
[2022-08-13] MEDS: Mirtazapine 7.5 MG TABLET PO (20:05)
[2022-08-13] MEDS: PARoxetine HCL 40 MG TABLET PO (20:05)
[2022-08-13] MEDS: hydrOXYzine HCL 50 MG TABLET 100 MG PO (20:07)
[2022-08-14] MEDS: Zolpidem Tartrate 5 MG TABLET PO (00:33)
[2022-08-14 04:00] VITALS: BP 126/65; PULSE 77; RESP 18; TEMP 36.1; O2SAT 92
[2022-08-14] MEDS: Omeprazole 20 MG CAPSULE.DR PO ×2 (07:06→15:50)
[2022-08-14 07:43] VITALS: BP 137/76; PULSE 97; RESP 18; TEMP 36.4; O2SAT 92
[2022-08-14] MEDS: Fluticasone/Vilanterol 200/25 BLST.W.DEV 1 PUFF INHALE (08:27)
[2022-08-14 08:28] VITALS: PULSE 93; RESP 16; O2SAT 97
[2022-08-14] MEDS: ondansetron HCL 4 MG/2 ML VIAL IVPUSH (09:17)
[2022-08-14] MEDS: cefTRIAXone sodium 1 GM in 0.9 % Sodium Chloride 50 ML IV (09:18)
[2022-08-14] MEDS: Acetaminophen 325 MG TABLET 650 MG PO (09:22)
[2022-08-14] MEDS: Gabapentin 400 MG CAPSULE PO (09:22)
[2022-08-14] MEDS: Nicotine 21 MG PATCH.TD24 TRANSDERMA (09:23)
[2022-08-14] MEDS: Cyanocobalamin (Vitamin B-12) 1,000 MCG TABLET 1000 MCG PO (09:23)
[2022-08-14] MEDS: buPROPion HCl XL 150 MG TAB.ER.24H PO (09:23)
[2022-08-14] MEDS: Dicyclomine HCl 10 MG CAPSULE 20 MG PO ×3 (09:23→15:51)
[2022-08-14] MEDS: Montelukast Sodium 10 MG TABLET PO (09:23)
[2022-08-14] MEDS: predniSONE 20 MG TABLET 40 MG PO (09:23)
[2022-08-14] MEDS: Enoxaparin Sodium 40 MG/0.4 ML SYRINGE SUBCUT (09:24)
[2022-08-14] MEDS: 0.9 % Sodium Chloride Flush 3 ML SYRINGE IVFLUSH (09:24)
[2022-08-14] MEDS: Azithromycin 500 MG in 0.9 % Sodium Chloride 250 ML 1215 MG IV (10:07)
[2022-08-14] MEDS: Milk of Magnesia 30 ML ORAL.SUSP PO (13:49)
--- NOTE | 2022-08-14 14:16 | HO.PM.IMPN ---
Subjective Subjective Date of Service: 08/14/22 Interval History: ? constipation , pneumonia Review of Systems sob seems improing has nausea,?feels constipated last bm-yesterday small Physical Exam Vital Signs: Vital Signs: Last Vital Signs Temp 97.6 F 08/14/22 07:43 Pulse 93 08/14/22 08:28 Resp 16 08/14/22 08:28 BP 137/76 08/14/22 07:43 Pulse Ox 92 08/14/22 07:43 O2 Del Method Room Air 08/14/22 07:43 O2 Flow Rate 2.0 08/12/22 07:30 Oxygen Flow Rate 10 08/11/22 02:57 BMI result Body Mass Index 42.3 Appearance: Alert.? Oriented X3.? some sob. cvs: rrr, [id number] . res: air entry slightly diminshed at bases,b/l wheezing abd: no rebound or guarding ,mild discomfort, bs present. ext pulses present , no cyanosis. neuro: axo3 , nonfocal. Objective Data Active Medications Acetaminophen (Acetaminophen 325 Mg Tablet) 650 mg PO Q6H PRN PRN Reason: Pain, Mild (Pain Scale 1-3) Last Admin: 08/14/22 09:22 Dose: 650 mg Documented By: AMY Artificial Tears (Artificial Tears 15 Ml Drops) 1 drop EYE-BOTH Q4H PRN PRN Reason: Dry Eyes Last Admin: 08/11/22 20:05 Dose: 1 drop Documented By: ALEJANDRO Bupropion HCl (Bupropion Hcl Xl 150 Mg Tab.Er.24h) 150 mg PO DAILY [facility] Last Admin: 08/14/22 09:23 Dose: 150 mg Documented By: AMY Cyanocobalamin (Cyanocobalamin (Vitamin B-12) 1,000 Mcg Tablet) 1,000 mcg PO DAILY [facility] Last Admin: 08/14/22 09:23 Dose: 1,000 mcg Documented By: AMY Dicyclomine HCl (Dicyclomine Hcl 10 Mg Capsule) 20 mg PO TIDAC [facility] Last Admin: 08/14/22 12:26 Dose: 20 mg Documented By: AMY Docusate Sodium (Docusate Sodium 100 Mg Capsule) 100 mg PO DAILY PRN PRN Reason: Constipation Last Admin: 08/13/22 09:56 Dose: 100 mg Documented By: TING Enoxaparin Sodium (Enoxaparin Sodium 40 Mg/0.4 Ml Syringe) 40 mg SUBCUT Q24H [facility] Last Admin: 08/14/22 09:24 Dose: 40 mg Documented By: AMY Fluticasone/Vilanterol (Fluticasone/Vilanterol 200/25 Blst.W.Dev) 1 puff INHALE DAILY [facility] Last Admin: 08/14/22 08:27 Dose: 1 puff Documented By: PAM Gabapentin (Gabapentin 400 Mg Capsule) 400 mg PO BID [facility] Last Admin: 08/14/22 09:22 Dose: 400 mg Documented By: AMY Hydroxyzine HCl (Hydroxyzine Hcl 50 Mg Tablet) 50 mg PO DAILY PRN PRN Reason: Anxiety Last Admin: 08/11/22 16:38 Dose: 50 mg Documented By: ИРИНА Hydroxyzine HCl (Hydroxyzine Hcl 50 Mg Tablet) 100 mg PO BEDTIME PRN PRN Reason: Anxiety Last Admin: 08/13/22 20:07 Dose: 100 mg Documented By: OSORIO Ceftriaxone Sodium 1 gm/ (Sodium Chloride) 50 mls @ 100 mls/hr IV Q24H [facility] Last Infusion: 08/14/22 10:12 Dose: 0 mls/hr Documented By: AMY Azithromycin 500 mg/ Sodium (Chloride) 250 mls @ 125 mls/hr IV Q24H [facility] Last Infusion: 08/14/22 12:18 Dose: 0 mls/hr Documented By: AMY Mirtazapine (Mirtazapine 7.5 Mg Tablet) 7.5 mg PO BEDTIME [facility] Last Admin: 08/13/22 20:05 Dose: 7.5 mg Documented By: OSORIO Montelukast Sodium (Montelukast Sodium 10 Mg Tablet) 10 mg PO DAILY [facility] Last Admin: 08/14/22 09:23 Dose: 10 mg Documented By: AMY Nicotine (Nicotine 21 Mg Patch.Td24) 21 mg TRANSDERMA DAILY [facility] Last Admin: 08/14/22 09:23 Dose: 21 mg Documented By: AMY Omeprazole (Omeprazole 20 Mg Capsule.Dr) 20 mg PO BID@0630,1630 [facility] Last Admin: 08/14/22 07:06 Dose: 20 mg Documented By: JUSTINO Ondansetron HCl (Ondansetron Hcl 4 Mg/2 Ml Vial) 4 mg IVPUSH Q8H PRN PRN Reason: Nausea and Vomiting Last Admin: 08/14/22 09:17 Dose: 4 mg Documented By: AMY Paroxetine HCl (Paroxetine Hcl 40 Mg Tablet) 40 mg PO BEDTIME [facility] Last Admin: 08/13/22 20:05 Dose: 40 mg Documented By: OSORIO Polyethylene Glycol (Polyethylene Glycol 3350 17 Gm Powd.Pack) 17 gm PO BID [facility] Last Admin: 08/13/22 20:05 Dose: 17 gm Documented By: OSORIO Polyethylene Glycol (Polyethylene Glycol 3350 17 Gm Powd.Pack) 17 gm PO ONCE ONE Stop: 08/14/22 14:12 Prazosin HCl (Prazosin Hcl 5 Mg Capsule) 5 mg PO BEDTIME [facility]; Protocol Last Admin: 08/13/22 20:05 Dose: 5 mg Documented By: OSORIO Prednisone (Prednisone 20 Mg Tablet) 40 mg PO DAILY [facility] Last Admin: 08/14/22 09:23 Dose: 40 mg Documented By: AMY Sodium Biphosphate/Sodium Phosphate (Sodium Phosphate,Slope-Dibasic 133 Ml Enema) 133 ml OR ONCE PRN PRN Reason: Constipation Sodium Chloride (0.9 % Sodium Chloride Flush 3 Ml Syringe) 3 ml IVFLUSH QSHIFT [facility] Last Admin: 08/14/22 09:24 Dose: 3 ml Documented By: AMY Labs 08/13/22 05:15 08/12/22 05:30 Assessment and Plan (1) Asthma exacerbation: Status: Acute (2) Sepsis: Status: Acute (3) Pneumonia: Status: Acute Plan 41-year-old female with past medical history of poorly controlled asthma presents to the hospital with complaints of shortness of breath found to have possible pneumonia sepsis sec to pneumonia /asthma exacerbation tachycardia, tachypnea seems improved Shortness of breath still similar to yesterday leukocytosis trending up, blood cultures pending ?CT/CT chest : Nonspecific bilateral patchy groundglass and airspace opacities? continue iv antibiotics ceftriaxone/azithromycin day 2. asthma exacerbation(mild intermittent asthma ) - his shortness of breath, cough and increased sputum production Continue nebs, steroids. migraine headaches- continue home medications. Anxiety: continue home meds mood flacuates ? may be steriod contributin add psych eval constipation: continue colace,miralex, added milk of mag. Obesity: Encouraged to lose weight. DVT prophylaxis:? Lovenox Need for inpatient: sepsis needing IV antibiotics, blood culture pending, also respiratory status is not optimally yet Time Spent With Patient Time: Total time managing care of this patient today ____ minutes. Quality Stroke Does the patient have a stroke diagnosis?: No VTE Prior VTE?: No VTE Risk Level:: Medical - moderate - high VTE Device Contraindication: Treatment Not Indicated VTE Drug Contraindication: N/A - Med Ordered
--- NOTE | 2022-08-14 15:25 | P.DS_ITS ---
DS: Providers Provider Date of Service: 08/14/22 Date of admission: 08/11/22 06:14 Date of discharge: 08/14/22 Primary care physician: Unknown Physician Consults: 08/12/22 07:13 Consult to Psychiatry Routine Consulting Provider: Psych Covering Reason for consultation: ANXIETY DS: Diagnosis Discharge Diagnosis (1) Asthma exacerbation: Status: Acute (2) Sepsis: Status: Acute (3) Pneumonia: Status: Acute (4) Panic attack as reaction to stress: Status: Acute (5) Constipation: Status: Acute DS: Summary Hospital Course Hospital Course: 41-year-old female with past medical history of asthma, migraine headaches, herniated disc, recent ICU admission for cor pulmonale comes into the hospital today with complaints of shortness of breath.? Patient states shortness of breath started day prior to presentation, reports increased cough as well as phlegm.? Reports chest pain with cough.? Denies any abdominal pain, has nausea and some vomiting, no diarrhea constipation, no urinary symptoms and no lower ex tremity edema.? On arrival to the ED patient tachycardic with a heart rate of 130, tachypneic with a respiratory rate of 28, blood pressure stable Labs are significant for WBC count of 20.2, labs otherwise unremarkable, troponin negative, COVID-19 negative EKG shows sinus tachycardia Chest x-ray showed prominent central vasculature and surrounding institutions similar to prior which may reflect congestion versus inter social infection Patient will be admitted for further management. hospital course: Patient came with shortness of breath and productive cough : Found to have leukocytosis, blood cultures sent, chest CT shows possible pneumonia- Patient was admitted for sepsis secondary to pneumonia: Started on IV antibiotics : Shortness of breath and sepsis resolved, blood culture negative. Patient was switched to p.o. antibiotics on discharge. Please repeat chest imaging in 3-4 weeks outpatient to see resolution pneumonia. Anxiety kim: Seen by psych: Added remerone trial. Follow-up with the outpatient psych. constipation: Improving continue colace,miralex. Last night had a small BM, abdominal pain also improved significantly, KUB pending Morbid obesity: Patient was strongly encouraged to lose weight. plan: Complete course of antibiotics, Please repeat chest imaging in 3-4 weeks outpatient to see resolution pneumonia. Follow-up outpatient psych: Anxiety and further use of remerone . constipation: Improving continue colace,miralex. Above management discussed with patient detail and she understand and in agreement with above plan-total time spent 50 minute. Time Spent with Patient Time attestation: Total time managing care of this patient today ____ minutes. Discharge coordination time: Greater than 30 minutes Quality: Safe Use of Opioids Does Pt have an Active Cancer Diagnosis on the Problem List?: No Quality: Stroke Does the patient have a stroke diagnosis?: No Physical Exam Vital Signs: Vital Signs: Last Vital Signs Temp 97.6 F 08/14/22 07:43 Pulse 93 08/14/22 08:28 Resp 16 08/14/22 08:28 BP 137/76 08/14/22 07:43 Pulse Ox 92 08/14/22 07:43 O2 Del Method Room Air 08/14/22 07:43 O2 Flow Rate 2.0 08/12/22 07:30 Oxygen Flow Rate 10 08/11/22 02:57 BMI result Body Mass Index 42.3 Appearance: Alert.? Oriented X3.? some sob. cvs: rrr, [id number] . res: air entry seems fair , no rales or wheezing abd: no rebound or guarding ,mild discomfort, bs present. ext pulses present , no cyanosis. neuro: axo3 , nonfocal. DS: Data Data Completed and Pending Completed studies during hospitalization [Text1]: Procedures Assistance with Respiratory Ventilation, Less than 24 Consecutive Hours, Continuous Positive Airway Pressure (04/23/22) Insertion of Endotracheal Airway into Trachea, Via Natural or Artificial Opening (04/23/22) Insertion of Infusion Device into Superior Vena Cava, Percutaneous Approach (04/23/22) Introduction of Baricitinib into Mouth and Pharynx, External Approach, [employer] (04/23/22) Introduction of Vasopressor into Peripheral Vein, Percutaneous Approach (04/23/22) Respiratory Ventilation, Greater than 96 Consecutive Hours (04/23/22) Ultrasonography of Superior Vena Cava, Guidance (04/23/22) Labs on day of discharge: Preliminary micro results at discharge 08/11/22 04:12 Blood Culture - Preliminary Blood - Venous No growth after 48 hours. 08/11/22 04:12 Blood Culture - Preliminary Blood - Venous No growth after 48 hours. Imaging Chest x-ray: Radiologist's impression: ITS Impressions Chest X-Ray 08/11/22 03:10 IMPRESSION: Prominent central vasculature and surrounding interstitium, similar to prior and which may reflect congestion versus interstitial infection. Chest CT 08/11/22 06:45 IMPRESSION: Nonspecific bilateral patchy groundglass and airspace opacities without pleural effusion or cardiomegaly. Findings could represent noninfectious or infectious pneumonitis. No lymphadenopathy. KUB X-Ray 08/14/22 15:14 IMPRESSION: 1. Nonobstructive bowel gas pattern. Moderate colonic stool burden in the right hemicolon. No significant stool burden within the rectum. 2. Nonspecific 2 mm calcification adjacent to the right aspect of L5-S1 for which a ureteral stone cannot be excluded. Discharge Plan Discharge Anticipated Discharge Date/Time: 08/14/22 15:12 Patient Disposition: Home, Self-Care Discharge Diagnosis: sepsis sec to pneumonia ,constipation Referrals: Physician,Unknown J [Primary Care Provider] - 1 Week Discharge Medications: New docusate sodium 100 mg Capsule 100 mg PO DAILY PRN (Reason: Constipation) Qty: 30 0RF cefuroxime axetil 500 mg tablet 500 mg PO BID Qty: 10 0RF azithromycin 500 mg tablet 500 mg PO DAILY 4 Days Qty: 4 0RF mirtazapine 7.5 mg Tablet 7.5 mg PO BEDTIME Qty: 30 0RF Continued montelukast 10 mg tablet 1 tab PO DAILY bupropion HCl 150 mg tablet extended release 24 hr 1 tab PO DAILY riboflavin (vitamin B2) [Vitamin B-2] 100 mg tablet 2 tab PO BID meloxicam 15 mg tablet 1 tab PO DAILY PRN (Reason: pain) nicotine (polacrilex) 4 mg gum 1 gum PO Q2H PRN (Reason: Nicotine Cravings) nicotine 21 mg/24 hr patch 24 hour 1 patch topical DAILY cyanocobalamin (vitamin B-12) 1,000 mcg tablet, sublingual 1 tab sublingual DAILY dicyclomine 20 mg tablet 20 mg PO TIDAC loratadine 10 mg Tablet 10 mg PO DAILY Qty: 7 0RF gabapentin 400 mg capsule 1 cap PO BID hydroxyzine pamoate 50 mg capsule 50 mg PO DAILY PRN (Reason: Anxiety) hydroxyzine pamoate 50 mg capsule 100 mg PO BEDTIME PRN (Reason: Anxiety) prazosin 5 mg capsule 1 cap PO BEDTIME paroxetine HCl 40 mg tablet 1 tab PO BEDTIME budesonide-formoterol [Symbicort] 160-4.5 mcg/actuation HFA aerosol inhaler 2 puff PO BID pantoprazole 40 mg tablet,delayed release (DR/EC) 40 mg PO DAILY Qty: 14 0RF albuterol sulfate 90 mcg/actuation HFA aerosol inhaler 2 inh inhalation Q6H PRN (Reason: shortness of breath or wheezing) Changed polyethylene glycol 3350 17 gram Powder In Packet 17 g PO BID PRN (Reason: constipation) Qty: 30 0RF Discharge Orders: Discharge Order (Routine); Ordered 08/14/22 Ordered By: Zena West Diet: Advance to usual diet Activity on Discharge: As tolerated Stand Alone Forms: Patient Portal Discharge page Care Plan Goals: Patient came with shortness of breath and productive cough : Found to have leukocytosis, blood cultures sent, chest CT shows possible pneumonia- Patient was admitted for sepsis secondary to pneumonia: Started on IV antibiotics : Shortness of breath and sepsis resolved, blood culture negative. Patient was switched to p.o. antibiotics on discharge. Please repeat chest imaging in 3-4 weeks outpatient to see resolution pneumonia. Anxiety kim: Seen by psych: Added remerone trial. Follow-up with the outpatient psych. constipation: Improving continue colace,miralex. Last night had a small BM, abdominal pain also improved significantly, KUB shows moderate stool burden- strongly encouraged to increase fiber in the diet, also continue laxatives. Morbid obesity: Patient was strongly encouraged to lose weight. Health Concerns: As above. Plan of Treatment: as above. Assessment: As above. Patient Instructions: Asthma (DC), Constipation (DC), Pneumonia (DC)
--- NOTE | 2022-08-14 15:35 | MHC.CM.PN ---
Addendum entered by Ayanna Mendez 08/15/22 14:55: CORRECTION: PT DISCHARGED WITH [id number]) PTS DCS WAS [facility]XED TO [facility] AND THEY CONFIRMED THEY WOULD RESUME SERVICES THE NEXT DAY Original Note: PT WILL DC HOME TODAY WITH [facility] S[facility] TO [facility] TO ARRANGE TRANSPORT
[2022-08-14] MEDS: polyethylene glycoL 3350 17 GM POWD.PACK PO (15:46)
[2022-08-14 16:00] VITALS: BP 132/71; PULSE 94; RESP 18; TEMP 37; O2SAT 97
== END 2022-08-14 16:56 | disposition home or self-care (01) | DRG 720 ==
LOC: HO.ED 04:15 → HO.EDOVER 06:19 → HO.S3 11:18
PROVIDERS: Admitting Provider Internal Medicine; Emergency Provider Student in an Organized Health Care Education/Training Program; PCP Family Medicine; Visit Provider Internal Medicine
DX: A41.9 Sepsis, unspecified organism (principal); J18.9 Pneumonia, unspecified organism; F33.9 Major depressive disorder, recurrent, unspecified; J45.21 Mild intermittent asthma with (acute) exacerbation; K59.00 Constipation, unspecified; F17.210 Nicotine dependence, cigarettes, uncomplicated; F41.1 Generalized anxiety disorder; F41.0 Panic disorder [episodic paroxysmal anxiety]; E66.01 Morbid (severe) obesity due to excess calories; Z68.41 Body mass index [BMI] 40.0-44.9, adult; G43.109 Migraine with aura, not intractable, without status migrainosus; Z71.6 Tobacco abuse counseling; Z20.822 Contact with and (suspected) exposure to COVID-19; Z88.5 Allergy status to narcotic agent; Z88.8 Allergy status to other drugs, medicaments and biological substances; Z79.899 Other long term (current) drug therapy
CPT/HCPCS: 36415; 71045; 71250; 74018; 80048; 80053; 81003; 82803; 83605; 83880; 84484; 85025; 85027; 87040; 87635; 93005; 94640; 99285; J0456; J0696; J1650; J2405; J2543; J2930

== ENCOUNTER 2022-09-21 01:30 | Inpatient (IN) | payer OTHER, SELFPAY ==
[2022-09-21] VITALS (11 sets, daily range): BP systolic 100–142; BP diastolic 59–76; PULSE 78–130; RESP 14–21; TEMP 36.1–37.7; O2SAT 92–100; BMI 39.2
--- NOTE | ~2022-09-21 | XR_ITS ---
EXAMINATION: XR CHEST CLINICAL INFORMATION: Shortness of breath COMPARISON: 08/11/2022 TECHNIQUE: Frontal view of the chest was obtained. FINDINGS: Lung volumes are symmetric. There is prominence of the central vasculature and surrounding interstitium. No dense consolidation is seen, though mild perihilar groundglass opacities are difficult to exclude in this setting. No evidence of pneumothorax or significant pleural effusion. Cardiac silhouette appears at the upper limits of normal in size. No acute osseous findings are seen. XR/XR chest 1V IMPRESSION: Prominence of the central vasculature and surrounding interstitium, which may indicate congestion and developing interstitial edema in the proper clinical setting. Mild perihilar opacities are difficult to exclude in this setting.
--- NOTE | 2022-09-21 01:36 | ED.SOB ---
HPI - SOB/Dyspnea General Chief Complaint: Dyspnea Stated Complaint: SOB for 3 days Time Seen by Provider: 09/21/22 01:36 Source: patient Mode of arrival: EMS Limitations: no limitations History of Present Illness HPI Narrative: Patient with history of COPD oxygen dependent on 2 L of oxygen at home with increased shortness of breath for last 3 days try to use her nebulized albuterol without much relief on arrival patient was using 4 L oxygen via nasal cannula and saturating 94% patient does have a cough mostly dry no fever no chills Related Data Home Medications Medication Instructions Recorded Confirmed budesonide-formoterol HFA 160 2 puff PO BID 09/18/21 09/21/22 mcg-4.5 mcg/actuation aerosol inhaler (Symbicort) gabapentin 400 mg capsule 1 cap PO BID 09/18/21 09/21/22 hydroxyzine pamoate 50 mg capsule 50 mg PO DAILY PRN Anxiety 09/18/21 08/11/22 hydroxyzine pamoate 50 mg capsule 100 mg PO BEDTIME PRN Anxiety 09/18/21 08/11/22 paroxetine HCl 40 mg tablet 1 tab PO BEDTIME 09/18/21 09/21/22 prazosin 5 mg capsule 1 cap PO BEDTIME 09/18/21 08/11/22 bupropion HCl 150 mg 24 hr tablet, 1 tab PO DAILY 04/22/22 09/21/22 extended release montelukast 10 mg tablet 1 tab PO DAILY asthma 04/22/22 09/21/22 cyanocobalamin (vitamin B-12) 1 tab sublingual DAILY 07/13/22 08/11/22 1,000 mcg sublingual tablet dicyclomine 20 mg tablet 20 mg PO TIDAC adominal pain 07/13/22 09/21/22 meloxicam 15 mg tablet 1 tab PO DAILY PRN pain 07/13/22 09/21/22 nicotine (polacrilex) 4 mg gum 1 gum PO Q2H PRN Nicotine Cravings 07/13/22 09/21/22 nicotine 21 mg/24 hr daily 1 patch topical DAILY 07/13/22 09/21/22 transdermal patch riboflavin (vitamin B2) 100 mg 2 tab PO BID 07/13/22 09/21/22 tablet (Vitamin B-2) albuterol sulfate 90 mcg/actuation 2 inh inhalation Q6H PRN shortness 08/11/22 09/21/22 aerosol inhaler of breath or wheezing Previous Rx's Medication Instructions Recorded pantoprazole 40 mg tablet,delayed 40 mg PO DAILY #14 tabs 05/27/22 release loratadine 10 mg tablet 10 mg PO DAILY #7 tabs 07/17/22 azithromycin 500 mg tablet 500 mg PO DAILY 4 days #4 tabs 08/14/22 cefuroxime axetil 500 mg tablet 500 mg PO BID #10 tabs 08/14/22 docusate sodium 100 mg capsule 100 mg PO DAILY PRN Constipation 08/14/22 #30 caps mirtazapine 7.5 mg tablet 7.5 mg PO BEDTIME #30 tabs 08/14/22 polyethylene glycol 3350 17 gram 17 g PO BID PRN constipation #30 ea 08/14/22 oral powder packet Allergies Allergy/AdvReac Type Severity Reaction Status Date / Time promethazine [From PHENERGAN] Allergy Unknown ITCHING Verified 07/13/22 17:36 codeine [CODEINE] AdvReac Unknown STOMACH Verified 07/13/22 17:36 UPSET morphine [MORPHINE] AdvReac Unknown MORE PAIN Verified 07/13/22 17:36 Review of Systems Review of Systems: Yes all other systems are reviewed and are negative [facility] Past Medical History Attestation statement: The following information was validated with the patient. Medical History Asthma Depression Disc herniation Generalized anxiety disorder H. pylori infection Migraine Morbid obesity Recurrent major depression Sinus infection Surgical History History of Social History Social History Household Members: Spouse Housing: Apartment Do you presently have visiting nurse or other home services: No Alcohol intake: never Patient Tobacco Use Status: Current someday Tobacco user Tobacco use type: Cigarette Cigarette Packs Per Day: 2 Cigarettes Per Day: 40.0 Smoked in Last 30 Days: No Second Hand Smoke Exposure: Yes Use of substances other than those prescribed or required for medical reasons: No Advance Directives: Yes Advance Directives on File: Yes Advance Directives Date on File: 05/12/22 service: No Current occupational status: unemployed Physical Exam Vital Signs: Vital Signs: Last Vital Signs Temp 98.7 F 09/21/22 05:33 Pulse 98 09/21/22 05:33 Resp 16 09/21/22 05:33 BP 100/59 L 09/21/22 05:33 Pulse Ox 95 09/21/22 05:33 O2 Del Method Nasal Cannula 09/21/22 05:33 O2 Flow Rate 3 09/21/22 05:33 Oxygen Flow Rate 4 09/21/22 01:32 BMI result Body Mass Index 39.2 Appearance: Alert. Oriented X3. Moderate respiratory distress Eyes: PERRLA, No Nystagmus ENT: Pharynx normal. Oral Mucosa moist Neck: Normal inspection. Neck supple. CVS: Normal heart rate and rhythm. Pulses normal. Respiratory: Moderate respiratory distress. Equal air entry bilateral, bilateral wheezing Abdomen: Soft and nontender. Bowel sounds are present, no mass palpable, no CVA tenderness Skin: Skin warm and dry. Normal skin color. Normal skin turgor. Extremities: No lower extremity edema. No calf tenderness Neuro: Oriented X 3. No motor deficit. Medications Administered Generic Name Dose Route Start Last Admin Trade Name Freq PRN Reason Stop Dose Admin Enoxaparin Sodium 40 mg 09/21/22 05:00 09/21/22 04:30 Enoxaparin Sodium 40 Mg/0.4 Ml Syringe SUBCUT 40 mg Q24H KRYSTLE Administration Ceftriaxone Sodium 1 gm/ 50 mls @ 100 mls/hr 09/21/22 05:00 09/21/22 06:22 Sodium Chloride IV 100 mls/hr Q24H KRYSTLE Administration Azithromycin 500 mg/ Sodium 250 mls @ 125 mls/hr 09/21/22 05:00 09/21/22 04:30 Chloride IV 125 mls/hr DAILY KRYSTLE Administration Nicotine 14 mg 09/21/22 05:00 09/21/22 04:30 Nicotine 14 Mg Patch.Td24 TRANSDERMA 14 mg DAILY KRYSTLE Administration Discontinued Medications Generic Name Dose Route Start Last Admin Trade Name Freq PRN Reason Stop Dose Admin Albuterol Sulfate 5 mg 09/21/22 03:03 09/21/22 03:20 Albuterol Sulfate (0.083%) 2.5 Mg/3 Ml Vial.Neb INHALE 09/21/22 03:04 5 mg ONCE ONE Administration Albuterol Sulfate 5 mg/ 0 mg 09/21/22 01:38 09/21/22 01:51 Albuterol/Ipratropium 3 ml INHALE 09/21/22 01:39 1 each ONCE ONE Administration Magnesium Sulfate 2 gm in 50 mls @ 100 mls/hr 09/21/22 01:39 09/21/22 02:30 Magnesium Sulfate/H2o IV 09/21/22 02:08 Infused ONCE ONE Infusion Sodium Chloride 500 mls @ 500 mls/hr 09/21/22 04:15 09/21/22 05:59 Ns IV 09/21/22 05:14 Infused .Q1H ONE Infusion Methylprednisolone Sodium Succinate 125 mg 09/21/22 01:39 09/21/22 01:56 Methylprednisolone Sod Succ 125 Mg/2 Ml Vial IVPUSH 09/21/22 01:40 125 mg ONCE ONE Administration Morphine Sulfate 4 mg 09/21/22 02:18 09/21/22 02:26 Morphine Sulfate 4 Mg/Ml Cartridge IVPUSH 09/21/22 02:19 4 mg ONCE ONE Administration Protocol Ondansetron HCl 4 mg 09/21/22 02:18 09/21/22 02:26 Ondansetron Hcl 4 Mg/2 Ml Vial IVPUSH 09/21/22 02:19 4 mg ONCE ONE Administration Medical Decision Making Medical Decision Making [facility] Narrative: Patient has severe emphysema with hypoxia came with increased wheezing and shortness of breath improved after nebulizing treatment steroids and magnesium will admit patient with supportive treatment chest x-ray negative for any acute infiltrate WBC count elevated as in the past patient has normal lactic acid level have a chronic lung disease no signs of infection at this time will admit patient to medical floor Consult Healthcare Provider Management of the patient was discussed with: Hospitalist Lab Data [facility] Lab Attestation statement: I reviewed the patient's lab results. 09/21/22 01:49 09/21/22 01:49 Labs: Lab Results 09/21/22 09/21/22 09/21/22 Range/Units 01:49 01:49 01:49 WBC 17.6 H (4.8-10.8) X10*3/uL RBC 4.51 (4.20-5.50) X10*6/uL Hgb 11.6 L (12.0-16.0) g/dl Hct 36.5 L (37.0-47.0) % MCV 80.9 (80.0-98.0) fL MCH 25.7 L (27.0-33.0) pg MCHC 31.8 (31.0-35.0) g/dl RDW 16.5 H (11.0-16.0) % Plt Count 381 (160-400) X10*3/uL MPV 10.2 (9.4-12.3) fL Immature Gran % (Auto) 0.4 (0.0-0.4) % Neut % (Auto) 72.2 (45-73) % Lymph % (Auto) 15.7 L (20-40) % [place] % (Auto) 5.5 (2-11) % Eos % (Auto) 5.6 H (0-4) % Baso % (Auto) 0.6 (0-2) % Lymph # (Auto) 2.8 (1.2-4.9) X10*3/uL [place] # (Auto) 1.0 (0.1-1.2) X10*3/uL Eos # (Auto) 1.0 H (0.0-0.4) X10*3/uL Baso # (Auto) 0.1 (0.0-0.2) X10*3/uL Abs Immat Gran (auto) 0.07 H (0.00-0.03) X10*3/uL Absolute Neuts (auto) 12.7 H (2.0-8.3) x10*3/uL Absolute Nucleated RBC 0.000 (0.0-0.012) X10*3/uL Nucleated RBC % (auto) 0.0 (0.0-0.2) /100WBC Sodium 139 (135-145) mmol/L Potassium 4.0 (3.3-5.1) mmol/L Chloride 103 (96-108) mmol/L Carbon Dioxide 25 (22-29) mmol/L Anion Gap 15 (12-20) BUN 7 L (9-16) mg/dL Creatinine 0.81 (0.5-1.4) mg/dL Estim Creat Clear Calc 116.4 Estimated GFR > 60 Random Glucose 157 H (60-115) mg/dL Calcium 9.0 (8.4-10.2) mg/dL Magnesium 1.8 (1.6-2.6) mg/dL Troponin I High Sens < 2.7 (<3.5-17.0) ng/L B-Natriuretic Peptide (<100) pg/mL COVID-19 ([facility]) (Negative) COVID-19 Clin Com Influenza Type A ([facility]) (Negative) Influenza Type B ([facility]) (Negative) Influenza A & B Note 09/21/22 09/21/22 09/21/22 Range/Units 01:49 01:50 01:50 WBC (4.8-10.8) X10*3/uL RBC (4.20-5.50) X10*6/uL Hgb (12.0-16.0) g/dl Hct (37.0-47.0) % MCV (80.0-98.0) fL MCH (27.0-33.0) pg MCHC (31.0-35.0) g/dl RDW (11.0-16.0) % Plt Count (160-400) X10*3/uL MPV (9.4-12.3) fL Immature Gran % (Auto) (0.0-0.4) % Neut % (Auto) (45-73) % Lymph % (Auto) (20-40) % [place] % (Auto) (2-11) % Eos % (Auto) (0-4) % Baso % (Auto) (0-2) % Lymph # (Auto) (1.2-4.9) X10*3/uL [place] # (Auto) (0.1-1.2) X10*3/uL Eos # (Auto) (0.0-0.4) X10*3/uL Baso # (Auto) (0.0-0.2) X10*3/uL Abs Immat Gran (auto) (0.00-0.03) X10*3/uL Absolute Neuts (auto) (2.0-8.3) x10*3/uL Absolute Nucleated RBC (0.0-0.012) X10*3/uL Nucleated RBC % (auto) (0.0-0.2) /100WBC Sodium (135-145) mmol/L Potassium (3.3-5.1) mmol/L Chloride (96-108) mmol/L Carbon Dioxide (22-29) mmol/L Anion Gap (12-20) BUN (9-16) mg/dL Creatinine (0.5-1.4) mg/dL Estim Creat Clear Calc Estimated GFR Random Glucose (60-115) mg/dL Calcium (8.4-10.2) mg/dL Magnesium (1.6-2.6) mg/dL Troponin I High Sens (<3.5-17.0) ng/L B-Natriuretic Peptide < 10 (<100) pg/mL COVID-19 ([facility]) Negative (Negative) COVID-19 Clin Com See Note Influenza Type A ([facility]AN) Negative (Negative) Influenza Type B ([facility]) Negative (Negative) Influenza A & B Note See Note Discharge Plan Discharge Clinical Impression: Acute and chronic respiratory failure with hypoxia, Chronic bronchitis Patient Disposition: Admitted As Inpatient
--- NOTE | 2022-09-21 01:38 | ECG_ITS ---
Test Reason : SOB Blood Pressure : / mmHG Vent. Rate : 110 BPM Atrial Rate : 110 BPM P-R Int : 116 ms QRS Dur : 088 ms QT Int : 336 ms P-R-T Axes : 041 046 025 degrees QTc Int : 454 ms Sinus tachycardia Otherwise normal ECG When compared with ECG of 11-AUG-2022 03:21, No significant change was found Referred By: Rupert Garnett Electronically Signed By:FRANKIE NIXON MD
[2022-09-21 01:54] LABS: MANUAL DIFF FLAG NO
[2022-09-21 01:56] LABS: Basophils Absolute Auto 0.1 X10*3/uL (0.0-0.2); Basophils Percent Auto 0.6 % (0-2); Eosinophils Percent Auto 5.6 % (0-4); Hematocrit 36.5 % (37.0-47.0); Hemoglobin 11.6 g/dl (12.0-16.0); Imm Gran Abs Auto 0.07 X10*3/uL (0.00-0.03); Imm Gran Pct Auto 0.4 % (0.0-0.4); Lymphocytes Absolute Auto 2.8 X10*3/uL (1.2-4.9); Lymphocytes Percent Auto 15.7 % (20-40); Mean Corpuscular HGB Conc 31.8 g/dl (31.0-35.0); Mean Corpuscular Hemoglobin 25.7 pg (27.0-33.0); Mean Corpuscular Volume 80.9 fL (80.0-98.0); Mean Platelet Volume 10.2 fL (9.4-12.3); Monocytes Percent Auto 5.5 % (2-11); Neutrophils Absolute Auto 12.7 x10*3/uL (2.0-8.3); Neutrophils Percent Auto 72.2 % (45-73); Platelet Count 381 X10*3/uL (160-400); Red Blood Count 4.51 X10*6/uL (4.20-5.50); Red Cell Distribution Width 16.5 % (11.0-16.0); White Blood Count 17.6 X10*3/uL (4.8-10.8)
[2022-09-21] MEDS: Magnesium Sulfate/H2O 2 GM/50 ML PIGGYBACK IV (01:56)
[2022-09-21] MEDS: methylPREDNISolone Sod Succ 125 MG/2 ML VIAL IVPUSH (01:56)
[2022-09-21 02:15] LABS: Anion Gap 15 (12-20); B Type Natriuretic Peptide < 10 pg/mL (<100); Blood Urea Nitrogen 7 mg/dL (9-16); Carbon Dioxide 25 mmol/L (22-29); Chloride 103 mmol/L (96-108); Creatinine Clr Calc Pharmacy 116.4; Estimated Glomerular Filt Rate > 60; Glucose Random 157 mg/dL (60-115); Magnesium 1.8 mg/dL (1.6-2.6); Sodium 139 mmol/L (135-145)
[2022-09-21 02:16] LABS: Troponin-I High Sensitivity < 2.7 ng/L (<3.5-17.0)
[2022-09-21 02:19] LABS: COVID-19 Test Negative (Negative); IDNOW Serial# 08D9AD1C; IDNOW Serial# BCCEAD1C; Influenza A Negative (Negative); Influenza B2 Negative (Negative)
[2022-09-21] MEDS: ondansetron HCL 4 MG/2 ML VIAL IVPUSH (02:26)
[2022-09-21] MEDS: Morphine Sulfate 4 MG/ML CARTRIDGE IVPUSH (02:26)
[2022-09-21] MEDS: Albuterol Sulfate (0.083%) 2.5 MG/3 ML VIAL.NEB 5 MG INHALE (03:20)
--- NOTE | 2022-09-21 04:08 | P.HPHOSP_ITS ---
History of Present Illness Date of Service: 09/21/22 Chief Complaint: Dyspnea This is a 42-year-old female with pertinent history of mood disorder, gastroesophageal reflux disease, tobacco use disorder, chronic hypoxemic respiratory failure due to COPD on 2 L supplemental oxygen who presents to the emergency department for evaluation of dyspnea. Patient states she started having fevers and chills 3 days prior to presentation. It was associated with productive cough with yellowish sputum production. It progressed to dyspnea, worse with exertion and wheezing. Patient tried her home inhaler without relief. No sick contacts. She denies chest discomfort, palpitations, abdominal pain, changes in urinary or bowel habits. No orthopnea or PND In the emergency department, patient was found to be tachycardic, tachypneic and leukocytosis Review of Systems 2 Constitutional: Constitutional: Reports chills, Reports fatigue, Reports fever(s), Reports lethargy and Reports malaise Cardiovascular: Cardiovascular: Reports dyspnea on exertion Respiratory: Respiratory: Reports cough, Reports dyspnea on exertion and Reports wheezing Endocrine: Endocrine: Reports fatigue Allergic/Immunologic: Allergic/Immunologic: Reports wheezing [facility] Medical History Asthma Depression Disc herniation Generalized anxiety disorder H. pylori infection Migraine Morbid obesity Recurrent major depression Sinus infection Pertinent family history: No family history of early CAD Surgical History History of Social History Household Members: Spouse Housing: Apartment Do you presently have visiting nurse or other home services: No Alcohol intake: never Patient Tobacco Use Status: Current someday Tobacco user Tobacco use type: Cigarette Cigarette Packs Per Day: 2 Cigarettes Per Day: 40.0 Smoked in Last 30 Days: No Second Hand Smoke Exposure: Yes Use of substances other than those prescribed or required for medical reasons: No Advance Directives: Yes Advance Directives on File: Yes Advance Directives Date on File: 05/12/22 service: No Current occupational status: unemployed Meds Allergies Allergy/AdvReac Type Severity Reaction Status Date / Time promethazine [From PHENERGAN] Allergy Unknown ITCHING Verified 07/13/22 17:36 codeine [CODEINE] AdvReac Unknown STOMACH Verified 07/13/22 17:36 UPSET morphine [MORPHINE] AdvReac Unknown MORE PAIN Verified 07/13/22 17:36 Active Medications: Current Medications Pharmacy Consult (Consult Rx Perform Med Rec) 1 each MISCELLANE ONCE PRN PRN Reason: Consult order Home Medications Medication Instructions Recorded Confirmed Last Taken Type budesonide-formoterol HFA 160 2 puff PO BID 09/18/21 09/21/22 09/20/22 History mcg-4.5 mcg/actuation aerosol inhaler (Symbicort) gabapentin 400 mg capsule 1 cap PO BID 09/18/21 09/21/22 09/20/22 History hydroxyzine pamoate 50 mg capsule 50 mg PO DAILY PRN Anxiety 09/18/21 08/11/22 07/13/22 History hydroxyzine pamoate 50 mg capsule 100 mg PO BEDTIME PRN Anxiety 09/18/21 08/11/22 09/16/21 History paroxetine HCl 40 mg tablet 1 tab PO BEDTIME 09/18/21 09/21/22 09/20/22 History prazosin 5 mg capsule 1 cap PO BEDTIME 09/18/21 08/11/22 07/12/22 History bupropion HCl 150 mg 24 hr tablet, 1 tab PO DAILY 04/22/22 09/21/22 09/20/22 History extended release montelukast 10 mg tablet 1 tab PO DAILY asthma 04/22/22 09/21/22 09/20/22 History cyanocobalamin (vitamin B-12) 1 tab sublingual DAILY 07/13/22 08/11/22 07/13/22 History 1,000 mcg sublingual tablet dicyclomine 20 mg tablet 20 mg PO TIDAC adominal pain 07/13/22 09/21/22 09/20/22 History meloxicam 15 mg tablet 1 tab PO DAILY PRN pain 07/13/22 09/21/22 09/20/22 History nicotine (polacrilex) 4 mg gum 1 gum PO Q2H PRN Nicotine Cravings 07/13/22 09/21/22 09/20/22 History nicotine 21 mg/24 hr daily 1 patch topical DAILY 07/13/22 09/21/22 09/20/22 History transdermal patch riboflavin (vitamin B2) 100 mg 2 tab PO BID 07/13/22 09/21/22 09/20/22 History tablet (Vitamin B-2) albuterol sulfate 90 mcg/actuation 2 inh inhalation Q6H PRN shortness 08/11/22 09/21/22 09/20/22 History aerosol inhaler of breath or wheezing Physical Exam Vital Signs and Narrative: Vital Signs: Last Vital Signs Temp 99.9 F 09/21/22 01:32 Pulse 117 H 09/21/22 03:21 Resp 21 H 09/21/22 03:21 BP 111/60 09/21/22 01:32 Pulse Ox 96 09/21/22 02:05 O2 Del Method Nasal Cannula 09/21/22 02:05 O2 Flow Rate 2 09/21/22 02:05 Oxygen Flow Rate 4 09/21/22 01:32 BMI result Body Mass Index 39.2 Middle-aged female lying in bed in mild distress on supplemental oxygen Neck supple, no JVD Tachycardic with regular rhythm, S1-S2 heard Bilateral wheezing appreciated Abdomen soft nontender, no guarding, no rigidity Patient is awake, alert and oriented to self, place, time and person ; no focal motor deficit Psych: Normal mood No pedal edema Results Labs 09/21/22 01:49 09/21/22 01:49 Labs: Laboratory Results - last 24 hr 09/21/22 09/21/22 09/21/22 01:49 01:49 01:49 MCV 80.9 MCH 25.7 L MCHC 31.8 RDW 16.5 H Plt Count 381 MPV 10.2 Immature Gran % (Auto) 0.4 Neut % (Auto) 72.2 Lymph % (Auto) 15.7 L [place] % (Auto) 5.5 Eos % (Auto) 5.6 H Baso % (Auto) 0.6 Lymph # (Auto) 2.8 [place] # (Auto) 1.0 Eos # (Auto) 1.0 H Baso # (Auto) 0.1 Abs Immat Gran (auto) 0.07 H Absolute Neuts (auto) 12.7 H Absolute Nucleated RBC 0.000 Nucleated RBC % (auto) 0.0 Anion Gap 15 Estim Creat Clear Calc 116.4 Estimated GFR > 60 Random Glucose 157 H Calcium 9.0 Magnesium 1.8 Troponin I High Sens < 2.7 B-Natriuretic Peptide COVID-19 ([facility]) COVID-19 Clin Com Influenza Type A ([facility]) Influenza Type B ([facility]) Influenza A & B Note 09/21/22 09/21/22 09/21/22 01:49 01:50 01:50 MCV MCH MCHC RDW Plt Count MPV Immature Gran % (Auto) Neut % (Auto) Lymph % (Auto) [place] % (Auto) Eos % (Auto) Baso % (Auto) Lymph # (Auto) [place] # (Auto) Eos # (Auto) Baso # (Auto) Abs Immat Gran (auto) Absolute Neuts (auto) Absolute Nucleated RBC Nucleated RBC % (auto) Anion Gap Estim Creat Clear Calc Estimated GFR Random Glucose Calcium Magnesium Troponin I High Sens B-Natriuretic Peptide < 10 COVID-19 ([facility]) Negative COVID-19 Clin Com See Note Influenza Type A ([facility]) Negative Influenza Type B ([facility]) Negative Influenza A & B Note See Note Imaging Radiologist's Impressions: Impressions Chest X-Ray 09/21/22 01:55 IMPRESSION: Prominence of the central vasculature and surrounding interstitium, which may indicate congestion and developing interstitial edema in the proper clinical setting. Mild perihilar opacities are difficult to exclude in this setting. Assessment and Plan (1) Pneumonia: Status: Acute Plan This is a 42-year-old female with pertinent history of mood disorder, gastroesophageal reflux disease, tobacco use disorder, chronic hypoxemic respiratory failure due to COPD on 2 L supplemental oxygen who presents to the emergency department for evaluation of dyspnea. #. Acute respiratory distress on chronic hypoxemic respiratory failure due to: #. Sepsis in the setting of Community-acquired pneumonia leading to Acute exacerbation of COPD -patient with leukocytosis, fever, productive cough. Will treat empirically with antibiotics for CAP. Sputum culture pending. Resuscitated with IV crystalloids. Blood culture and lactic acid ordered -scheduled and p.r.n. DuoNebs. Continue systemic steroids. Continue home inhaler #. Mood disorder. Continue home mood stabilizers #. Tobacco use disorder. Offered nicotine patch and nicotine gum #. Chronic normocytic anemia Med rec pending DVT prophylaxis: Lovenox Full code Regular diet Time Spent With Patient Time: Total time managing care of this patient today ____ minutes. Quality Stroke Does the patient have a stroke diagnosis?: No VTE Prior VTE?: No VTE Risk Level:: Medical - moderate - high VTE Device Contraindication: Treatment Not Indicated VTE Drug Contraindication: N/A - Med Ordered
[2022-09-21] MEDS: 0.9 % Sodium Chloride 500 ML IV (04:30)
[2022-09-21] MEDS: Enoxaparin Sodium 40 MG/0.4 ML SYRINGE SUBCUT (04:30)
[2022-09-21] MEDS: Nicotine 14 MG PATCH.TD24 TRANSDERMA (04:30)
[2022-09-21] MEDS: Azithromycin 500 MG in 0.9 % Sodium Chloride 250 ML 125 MG IV (04:30)
[2022-09-21 04:39] LABS: Lactic Acid 1.3 mmol/L (0.5-2.0)
[2022-09-21 05:23] LABS: Basophils Absolute Auto 0.1 X10*3/uL (0.0-0.2); Basophils Percent Auto 0.4 % (0-2); Eosinophils Absolute Auto 0.1 X10*3/uL (0.0-0.4); Eosinophils Percent Auto 0.6 % (0-4); Hematocrit 36.6 % (37.0-47.0); Hemoglobin 11.7 g/dl (12.0-16.0); Imm Gran Abs Auto 0.07 X10*3/uL (0.00-0.03); Imm Gran Pct Auto 0.4 % (0.0-0.4); Lymphocytes Absolute Auto 0.7 X10*3/uL (1.2-4.9); Lymphocytes Percent Auto 4.2 % (20-40); MANUAL DIFF FLAG SCAN; Mean Corpuscular Hemoglobin 25.5 pg (27.0-33.0); Mean Corpuscular Volume 79.7 fL (80.0-98.0); Mean Platelet Volume 10.2 fL (9.4-12.3); Monocytes Absolute Auto 0.4 X10*3/uL (0.1-1.2); Monocytes Percent Auto 2.2 % (2-11); Neutrophils Absolute Auto 15.4 x10*3/uL (2.0-8.3); Neutrophils Percent Auto 92.2 % (45-73); Platelet Count 387 X10*3/uL (160-400); Red Blood Count 4.59 X10*6/uL (4.20-5.50); Red Cell Distribution Width 16.4 % (11.0-16.0); SCAN SMEAR FLAG 1; White Blood Count 16.7 X10*3/uL (4.8-10.8)
[2022-09-21 05:45] LABS: Anion Gap 13 (12-20); Blood Urea Nitrogen 7 mg/dL (9-16); Calcium 8.6 mg/dL (8.4-10.2); Carbon Dioxide 25 mmol/L (22-29); Chloride 103 mmol/L (96-108); Creatinine Clr Calc Pharmacy 114.9; Estimated Glomerular Filt Rate > 60; Glucose Random 194 mg/dL (60-115); Potassium 3.6 mmol/L (3.3-5.1); Sodium 137 mmol/L (135-145)
[2022-09-21 05:48] LABS: SLIDE REVIEW VERIFIED
[2022-09-21] MEDS: cefTRIAXone sodium 1 GM in 0.9 % Sodium Chloride 50 ML IV (06:22)
[2022-09-21] MEDS: 0.9 % Sodium Chloride Flush 3 ML SYRINGE IVFLUSH ×3 (08:06→23:57)
[2022-09-21] MEDS: methylPREDNISolone Sod Succ 40 MG/ML VIAL IVPUSH ×2 (08:06→20:48)
[2022-09-21] MEDS: Albuterol/Iprat 2.5/0.5MG 3 ML AMPUL.NEB INHALE ×3 (08:20→20:05)
--- NOTE | 2022-09-21 09:18 | P.PNIM_ITS ---
Subjective Subjective Date of Service: 09/21/22 Review of Systems Follow up COPD/CAP feeling better today still some sob with activity dry cough Physical Exam Vital Signs: Vital Signs: Last Vital Signs Temp 98.7 F 09/21/22 05:33 Pulse 90 09/21/22 08:21 Resp 16 09/21/22 08:21 BP 100/59 L 09/21/22 05:33 Pulse Ox 95 09/21/22 05:33 O2 Del Method Nasal Cannula 09/21/22 05:33 O2 Flow Rate 3 09/21/22 05:33 Oxygen Flow Rate 4 09/21/22 01:32 BMI result Body Mass Index 39.2 Appearing in no acute distress lung sounds wheezing heart regular rate rhythm, clear S1, S2 positive bowel sounds, abdomen is soft, nontender neuro patient is alert x3, no focal deficits Objective Data Active Medications Acetaminophen (Acetaminophen 325 Mg Tablet) 650 mg PO Q6H PRN PRN Reason: Pain, Mild (Pain Scale 1-3) Albuterol/Ipratropium (Albuterol/Iprat 2.5/0.5mg 3 Ml Ampul.Neb) 3 ml INHALE RQ4H WHILE AWAKE [facility] Last Admin: 09/21/22 08:20 Dose: 3 ml Documented By: PAM Albuterol/Ipratropium (Albuterol/Iprat 2.5/0.5mg 3 Ml Ampul.Neb) 3 ml INHALE Q4H PRN PRN Reason: Wheezing Benzonatate (Benzonatate 100 Mg Capsule) 200 mg PO TID PRN PRN Reason: Cough Enoxaparin Sodium (Enoxaparin Sodium 40 Mg/0.4 Ml Syringe) 40 mg SUBCUT Q24H [facility] Last Admin: 09/21/22 04:30 Dose: 40 mg Documented By: ANNALISE Ceftriaxone Sodium 1 gm/ (Sodium Chloride) 50 mls @ 100 mls/hr IV Q24H [facility] Last Admin: 09/21/22 06:22 Dose: 100 mls/hr Documented By: ANNALISE Azithromycin 500 mg/ Sodium (Chloride) 250 mls @ 125 mls/hr IV DAILY [facility] Last Infusion: 09/21/22 06:37 Dose: 125 mls/hr Documented By: ANNALISE Melatonin (Melatonin 3 Mg Tablet) 6 mg PO BEDTIME PRN PRN Reason: Insomnia Methylprednisolone Sodium Succinate (Methylprednisolone Sod Succ 40 Mg/Ml Vial) 40 mg IVPUSH Q12H [facility] Last Admin: 09/21/22 08:06 Dose: 40 mg Documented By: TIGIST Nicotine (Nicotine 14 Mg Patch.Td24) 14 mg TRANSDERMA DAILY [facility] Last Admin: 09/21/22 04:30 Dose: 14 mg Documented By: ANNALISE Nicotine Polacrilex (Nicotine Polacrilex 2 Mg Gum) 2 mg BUCCAL Q2H PRN PRN Reason: Nicotine Cravings Ondansetron HCl (Ondansetron Hcl 4 Mg/2 Ml Vial) 4 mg IVPUSH Q8H PRN PRN Reason: Nausea and Vomiting Pharmacy Consult (Consult Rx Perform Med Rec) 1 each MISCELLANE ONCE PRN PRN Reason: Consult order Sodium Chloride (0.9 % Sodium Chloride Flush 3 Ml Syringe) 3 ml IVFLUSH QSHIFT [facility] Last Admin: 09/21/22 08:06 Dose: 3 ml Documented By: TIGIST Labs 09/21/22 05:16 09/21/22 05:16 Labs: Laboratory Results - last 24 hr 09/21/22 09/21/22 09/21/22 01:49 01:49 01:49 MCV 80.9 MCH 25.7 L MCHC 31.8 RDW 16.5 H Plt Count 381 MPV 10.2 Immature Gran % (Auto) 0.4 Neut % (Auto) 72.2 Lymph % (Auto) 15.7 L [place] % (Auto) 5.5 Eos % (Auto) 5.6 H Baso % (Auto) 0.6 Lymph # (Auto) 2.8 [place] # (Auto) 1.0 Eos # (Auto) 1.0 H Baso # (Auto) 0.1 Abs Immat Gran (auto) 0.07 H Absolute Neuts (auto) 12.7 H Absolute Nucleated RBC 0.000 Nucleated RBC % (auto) 0.0 Smear Tech's Comments Anion Gap 15 Estim Creat Clear Calc 116.4 Estimated GFR > 60 Random Glucose 157 H Lactic Acid Calcium 9.0 Magnesium 1.8 Troponin I High Sens < 2.7 B-Natriuretic Peptide COVID-19 ([facility]) COVID-19 Clin Com Influenza Type A ([facility]) Influenza Type B ([facility]) Influenza A & B Note 09/21/22 09/21/22 09/21/22 01:49 01:50 01:50 MCV MCH MCHC RDW Plt Count MPV Immature Gran % (Auto) Neut % (Auto) Lymph % (Auto) [place] % (Auto) Eos % (Auto) Baso % (Auto) Lymph # (Auto) [place] # (Auto) Eos # (Auto) Baso # (Auto) Abs Immat Gran (auto) Absolute Neuts (auto) Absolute Nucleated RBC Nucleated RBC % (auto) Smear Tech's Comments Anion Gap Estim Creat Clear Calc Estimated GFR Random Glucose Lactic Acid Calcium Magnesium Troponin I High Sens B-Natriuretic Peptide < 10 COVID-19 ([facility]) Negative COVID-19 Clin Com See Note Influenza Type A ([facility]) Negative Influenza Type B ([facility]) Negative Influenza A & B Note See Note 09/21/22 09/21/22 09/21/22 04:21 05:16 05:16 MCV 79.7 L MCH 25.5 L MCHC 32.0 RDW 16.4 H Plt Count 387 MPV 10.2 Immature Gran % (Auto) 0.4 Neut % (Auto) 92.2 H Lymph % (Auto) 4.2 L [place] % (Auto) 2.2 Eos % (Auto) 0.6 Baso % (Auto) 0.4 Lymph # (Auto) 0.7 L [place] # (Auto) 0.4 Eos # (Auto) 0.1 Baso # (Auto) 0.1 Abs Immat Gran (auto) 0.07 H Absolute Neuts (auto) 15.4 H Absolute Nucleated RBC 0.000 Nucleated RBC % (auto) 0.0 Smear Tech's Comments VERIFIED Anion Gap 13 Estim Creat Clear Calc 114.9 Estimated GFR > 60 Random Glucose 194 H Lactic Acid 1.3 Calcium 8.6 Magnesium Troponin I High Sens B-Natriuretic Peptide COVID-19 ([facility]) COVID-19 Clin Com Influenza Type A ([facility]) Influenza Type B ([facility]) Influenza A & B Note Assessment and Plan (1) Acute and chronic respiratory failure with hypoxia: Status: Acute Plan 42-year-old female with pertinent history of mood disorder, gastroesophageal reflux disease, tobacco use disorder, chronic hypoxemic respiratory failure due to COPD on 2 L supplemental oxygen who presents to the emergency department for evaluation of dyspnea. Acute respiratory distress on chronic hypoxemic respiratory failure secondary to COPD and CAP Continue Rocephin and azithromycin Schedule DuoNeja, Solu-Medrol Sputum blood cultures pending Continue supplemental oxygen, on 2 L with activity at home Sepsis secondary to CAP Leukocytosis, tachycardia, tachypnea, normal lactic acid Treat infection Chronic normocytic anemia No signs of bleeding Monitor Mental health Continue home medications Tobacco use disorder Discussed importance of smoking cessation NRT DVT prophylaxis:? Dwight Attending Dr. Silva Time Spent With Patient Time: Total time managing care of this patient today ____ minutes. Quality Stroke Does the patient have a stroke diagnosis?: No VTE Prior VTE?: No VTE Risk Level:: Medical - moderate - high VTE Device Contraindication: Treatment Not Indicated VTE Drug Contraindication: N/A - Med Ordered
--- NOTE | 2022-09-21 09:55 | PHA.MEDREC ---
Pharmacy Consult ? Medication Reconciliation Pharmacy has completed the medication reconciliation. Pharmacy has reviewed med rec done by nursing. Numerous omissions/errors found and corrected. Incident report will be filed.
[2022-09-21] MEDS: Loratadine 10 MG TABLET PO (10:53)
[2022-09-21] MEDS: Nicotine 21 MG PATCH.TD24 TRANSDERMA (10:53)
[2022-09-21] MEDS: buPROPion HCl XL 150 MG TAB.ER.24H PO (10:53)
[2022-09-21] MEDS: NaPROXEN 500 MG TABLET PO (10:53)
[2022-09-21] MEDS: Benzonatate 100 MG CAPSULE 200 MG PO (10:54)
--- NOTE | 2022-09-21 13:47 | PC.NURSE ---
report obtained from ED RN, pt transported from ED to overflow bed 1- this nurse assumed care at 1330, patient a&ox3, pts lungs diminished throughout, expiratory wheezing in rt base, pt placed on 3L NC- pt is home O2 dependent, pt requesting po- pt given sandwich and gingerale per patient request, vitals stable at this time, call carvalho within reach, will continue to monitor
[2022-09-21] MEDS: Montelukast Sodium 10 MG TABLET PO (20:48)
[2022-09-21] MEDS: Gabapentin 400 MG CAPSULE 800 MG PO (20:49)
[2022-09-21] MEDS: Mirtazapine 7.5 MG TABLET PO (20:49)
[2022-09-21] MEDS: PARoxetine HCL 40 MG TABLET PO (20:49)
[2022-09-21] MEDS: Acetaminophen 325 MG TABLET 650 MG PO (20:56)
[2022-09-22] VITALS (8 sets, daily range): BP systolic 110–140; BP diastolic 62–81; PULSE 81–100; RESP 14–24; TEMP 36–36.2; O2SAT 95–99
[2022-09-22] MEDS: cefTRIAXone sodium 1 GM in 0.9 % Sodium Chloride 50 ML IV (04:58)
[2022-09-22] MEDS: Enoxaparin Sodium 40 MG/0.4 ML SYRINGE SUBCUT (04:59)
[2022-09-22] MEDS: Omeprazole 20 MG CAPSULE.DR PO (04:59)
[2022-09-22] MEDS: Albuterol/Iprat 2.5/0.5MG 3 ML AMPUL.NEB INHALE ×4 (07:32→20:51)
[2022-09-22] MEDS: NaPROXEN 500 MG TABLET PO (07:54)
[2022-09-22] MEDS: 0.9 % Sodium Chloride Flush 3 ML SYRINGE IVFLUSH ×2 (07:58→15:40)
[2022-09-22 08:44] LABS: Hematocrit 37.2 % (37.0-47.0); Hemoglobin 11.8 g/dl (12.0-16.0); Mean Corpuscular HGB Conc 31.7 g/dl (31.0-35.0); Mean Corpuscular Volume 81.9 fL (80.0-98.0); Mean Platelet Volume 10.8 fL (9.4-12.3); Platelet Count 415 X10*3/uL (160-400); Red Blood Count 4.54 X10*6/uL (4.20-5.50); Red Cell Distribution Width 16.8 % (11.0-16.0); White Blood Count 24.4 X10*3/uL (4.8-10.8)
[2022-09-22] MEDS: buPROPion HCl XL 150 MG TAB.ER.24H PO (09:03)
[2022-09-22] MEDS: Loratadine 10 MG TABLET PO (09:03)
[2022-09-22] MEDS: methylPREDNISolone Sod Succ 40 MG/ML VIAL IVPUSH ×2 (09:04→20:37)
[2022-09-22] MEDS: Nicotine 14 MG PATCH.TD24 TRANSDERMA (09:05)
[2022-09-22] MEDS: Nicotine 21 MG PATCH.TD24 TRANSDERMA (09:05)
[2022-09-22] MEDS: Azithromycin 500 MG in 0.9 % Sodium Chloride 250 ML 125 MG IV (09:12)
[2022-09-22 09:27] LABS: Procalcitonin < 0.02 ng/mL
--- NOTE | 2022-09-22 11:30 | MHC.CM.PN ---
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
--- NOTE | 2022-09-22 12:44 | P.PNIM_ITS ---
Subjective Subjective Date of Service: 09/22/22 Interval History: cough improving dyspnea improving This history was taken in Irish from the patient. Review of Systems Review of Systems: Yes all other systems are reviewed and are negative Physical Exam Vital Signs: Vital Signs: Last Vital Signs Temp 97.2 F 09/22/22 07:18 Pulse 86 09/22/22 11:14 Resp 18 09/22/22 11:14 BP 131/78 09/22/22 07:18 Pulse Ox 99 09/22/22 07:18 O2 Del Method Nasal Cannula 09/22/22 07:18 O2 Flow Rate 3 09/22/22 07:18 Oxygen Flow Rate 4 09/21/22 01:32 BMI result Body Mass Index 39.2 Gen: in no acute distress HEENT: sclera anicteric, moist mucus membranes Neck: supple Lungs: diminished with expiratory wheezing bilaterally Heart: regular rate and rhythm, no murmurs Abd: soft, non-tender, non-distended, obese Ext: no edema Skin: warm/well-perfused Neuro: alert and oriented x3, no focal findings Psych: appropriate affect Objective Data Active Medications Acetaminophen (Acetaminophen 325 Mg Tablet) 650 mg PO Q6H PRN PRN Reason: Pain, Mild (Pain Scale 1-3) Last Admin: 09/21/22 20:56 Dose: 650 mg Documented By: DENIZ Albuterol/Ipratropium (Albuterol/Iprat 2.5/0.5mg 3 Ml Ampul.Neb) 3 ml INHALE RQ4H WHILE AWAKE [facility] Last Admin: 09/22/22 11:13 Dose: 3 ml Documented By: YARELI Albuterol/Ipratropium (Albuterol/Iprat 2.5/0.5mg 3 Ml Ampul.Neb) 3 ml INHALE Q4H PRN PRN Reason: Wheezing Benzonatate (Benzonatate 100 Mg Capsule) 200 mg PO TID PRN PRN Reason: Cough Last Admin: 09/21/22 10:54 Dose: 200 mg Documented By: TIGIST Bupropion HCl (Bupropion Hcl Xl 150 Mg Tab.Er.24h) 150 mg PO DAILY [facility] Last Admin: 09/22/22 09:03 Dose: 150 mg Documented By: GURPREET Enoxaparin Sodium (Enoxaparin Sodium 40 Mg/0.4 Ml Syringe) 40 mg SUBCUT Q24H [facility] Last Admin: 09/22/22 04:59 Dose: 40 mg Documented By: MARIA GUADALUPE Fluticasone/Vilanterol (Fluticasone/Vilanterol 200/25 Blst.W.Dev) 1 puff INHALE RDAILY [facility] Last Admin: 09/22/22 07:34 Dose: Not Given Documented By: YARELI Non-Admin Reason: med unavail pharm called Gabapentin (Gabapentin 400 Mg Capsule) 800 mg PO BEDTIME [facility] Last Admin: 09/21/22 20:49 Dose: 800 mg Documented By: DENIZ Ceftriaxone Sodium 1 gm/ (Sodium Chloride) 50 mls @ 100 mls/hr IV Q24H [facility] Last Infusion: 09/22/22 05:35 Dose: 0 mls/hr Documented By: MARIA GUADALUPE Azithromycin 500 mg/ Sodium (Chloride) 250 mls @ 125 mls/hr IV DAILY [facility] [place] Last Infusion: 09/22/22 11:27 Dose: 0 mls/hr Documented By: AMY Loratadine (Loratadine 10 Mg Tablet) 10 mg PO DAILY [facility] Last Admin: 09/22/22 09:03 Dose: 10 mg Documented By: GURPREET Melatonin (Melatonin 3 Mg Tablet) 6 mg PO BEDTIME PRN PRN Reason: Insomnia Methylprednisolone Sodium Succinate (Methylprednisolone Sod Succ 40 Mg/Ml Vial) 40 mg IVPUSH Q12H [facility] Last Admin: 09/22/22 09:04 Dose: 40 mg Documented By: GURPREET Mirtazapine (Mirtazapine 7.5 Mg Tablet) 7.5 mg PO BEDTIME [facility] Last Admin: 09/21/22 20:49 Dose: 7.5 mg Documented By: DENIZ Montelukast Sodium (Montelukast Sodium 10 Mg Tablet) 10 mg PO BEDTIME [facility] Last Admin: 09/21/22 20:48 Dose: 10 mg Documented By: DENIZ Naproxen (Naproxen 500 Mg Tablet) 500 mg PO DAILY PRN PRN Reason: pain Last Admin: 09/22/22 07:54 Dose: 500 mg Documented By: AMY Nicotine (Nicotine 14 Mg Patch.Td24) 14 mg TRANSDERMA DAILY [facility] Last Admin: 09/22/22 09:05 Dose: 14 mg Documented By: GURPREET Nicotine (Nicotine 21 Mg Patch.Td24) 21 mg TRANSDERMA DAILY [facility] Last Admin: 09/22/22 09:05 Dose: 21 mg Documented By: GURPREET Nicotine Polacrilex (Nicotine Polacrilex 2 Mg Gum) 2 mg BUCCAL Q2H PRN PRN Reason: Nicotine Cravings Omeprazole (Omeprazole 20 Mg Capsule.) 20 mg PO DAILY@0630 [facility] Last Admin: 09/22/22 04:59 Dose: 20 mg Documented By: MARIA GUADALUPE Ondansetron HCl (Ondansetron Hcl 4 Mg/2 Ml Vial) 4 mg IVPUSH Q8H PRN PRN Reason: Nausea and Vomiting Paroxetine HCl (Paroxetine Hcl 40 Mg Tablet) 40 mg PO BEDTIME [facility] Last Admin: 09/21/22 20:49 Dose: 40 mg Documented By: DENIZ Pharmacy Consult (Consult Rx Perform Med Rec) 1 each MISCELLANE ONCE PRN PRN Reason: Consult order Polyethylene Glycol (Polyethylene Glycol 3350 17 Gm Powd.Pack) 17 gm PO BID PRN PRN Reason: constipation Sodium Chloride (0.9 % Sodium Chloride Flush 3 Ml Syringe) 3 ml IVFLUSH QSHIFT [facility] Last Admin: 09/22/22 07:58 Dose: 3 ml Documented By: AMY Labs 09/22/22 08:12 09/21/22 05:16 Labs: Laboratory Results - last 24 hr 09/22/22 09/22/22 08:12 08:12 MCV 81.9 MCH 26.0 L MCHC 31.7 RDW 16.8 H Plt Count 415 H MPV 10.8 Absolute Nucleated RBC 0.000 Nucleated RBC % (auto) 0.0 Procalcitonin < 0.02 Microbiology Microbiology Results: Microbiology 09/21/22 04:21 Blood Culture - Preliminary Blood - Venous No growth after 24 hours. 09/21/22 04:21 Blood Culture - Preliminary Blood - Venous No growth after 24 hours. Assessment and Plan (1) Acute and chronic respiratory failure with hypoxia: Status: Acute Plan d#3 42yo F with mood disorder, GERD, tobacco use disorder, chronic hypoxia on 2L due to COPD presenting with dyspnea # acute/chronic hypoxic resp failure due to COPD exac + CAP - wean O2 as darrick, home 2L O2 # COPD exac - ABX as below, continue steroids, standing/prn nebs, Breo, montelukast # sepsis due to CAP - ceftriaxone/azithromycin d#3 # leukocytosis - suspect steroid effect # chronic normocytic anemia - H+H stable, no signs of bleeding # tobacco abuse - NRT # mood disorder - paroxetine, bupropion, gabapentin, mirtazapine # VTE ppx - LMWH # dispo - likely home possibly tomorrow In my clinical judgment, the patient requires continued inpatient hospitalization for the following reasons: resp failure Time Spent With Patient Time: Total time managing care of this patient today __40 __ minutes. Quality Stroke Does the patient have a stroke diagnosis?: No VTE Prior VTE?: No VTE Risk Level:: Medical - moderate - high VTE Device Contraindication: Treatment Not Indicated VTE Drug Contraindication: N/A - Med Ordered
[2022-09-22] MEDS: Acetaminophen 325 MG TABLET 650 MG PO (13:50)
[2022-09-22] MEDS: polyethylene glycoL 3350 17 GM POWD.PACK PO (14:16)
[2022-09-22] MEDS: oxyCODONE HCl Immed Release 5 MG TABLET PO (18:04)
[2022-09-22] MEDS: PARoxetine HCL 40 MG TABLET PO (20:37)
[2022-09-22] MEDS: Gabapentin 400 MG CAPSULE 800 MG PO (20:37)
[2022-09-22] MEDS: Montelukast Sodium 10 MG TABLET PO (20:37)
[2022-09-22] MEDS: Mirtazapine 7.5 MG TABLET PO (20:37)
[2022-09-23] VITALS (8 sets, daily range): BP systolic 127–144; BP diastolic 65–78; PULSE 79–97; RESP 17–18; TEMP 36.1–36.6; O2SAT 94–98
[2022-09-23] MEDS: 0.9 % Sodium Chloride Flush 3 ML SYRINGE IVFLUSH ×3 (00:08→20:06)
[2022-09-23] MEDS: cefTRIAXone sodium 1 GM in 0.9 % Sodium Chloride 50 ML IV (05:49)
[2022-09-23] MEDS: Enoxaparin Sodium 40 MG/0.4 ML SYRINGE SUBCUT (05:56)
[2022-09-23] MEDS: Omeprazole 20 MG CAPSULE.DR PO (06:09)
[2022-09-23] MEDS: Loratadine 10 MG TABLET PO (08:45)
[2022-09-23] MEDS: Nicotine 14 MG PATCH.TD24 TRANSDERMA (08:45)
[2022-09-23] MEDS: buPROPion HCl XL 150 MG TAB.ER.24H PO (08:45)
[2022-09-23] MEDS: Nicotine 21 MG PATCH.TD24 TRANSDERMA (08:46)
[2022-09-23] MEDS: Albuterol/Iprat 2.5/0.5MG 3 ML AMPUL.NEB INHALE ×4 (09:23→19:38)
[2022-09-23] MEDS: Azithromycin 500 MG in 0.9 % Sodium Chloride 250 ML 125 MG IV (10:51)
[2022-09-23] MEDS: methylPREDNISolone Sod Succ 40 MG/ML VIAL IVPUSH ×2 (10:51→20:06)
[2022-09-23] MEDS: Sennosides/Docusate Sodium TABLET 2 TAB PO ×2 (11:06→20:07)
[2022-09-23] MEDS: Lactulose 20 GM/30 ML SOLUTION PO (11:06)
[2022-09-23] MEDS: oxyCODONE HCl Immed Release 5 MG TABLET PO (11:08)
[2022-09-23] MEDS: bisacodyL 5 MG TABLET.DR 10 MG PO (11:08)
--- NOTE | 2022-09-23 11:51 | HO.PM.IMPN ---
Subjective Subjective Date of Service: 09/23/22 Interval History: c/o dyspnea + cough constipated This history was taken in Gambian from the patient. Review of Systems Review of Systems: Yes all other systems are reviewed and are negative Physical Exam Vital Signs: Vital Signs: Last Vital Signs Temp 97.2 F 09/23/22 08:00 Pulse 95 09/23/22 09:20 Resp 18 09/23/22 09:20 BP 144/69 H 09/23/22 08:00 Pulse Ox 98 09/23/22 08:00 O2 Del Method Nasal Cannula 09/23/22 08:00 O2 Flow Rate 3 09/23/22 08:00 Oxygen Flow Rate 4 09/21/22 01:32 BMI result Body Mass Index 39.2 Gen: in no acute distress HEENT: sclera anicteric, moist mucus membranes Neck: supple Lungs: diminished with expiratory wheezing bilaterally, prolonged expiratory phase Heart: regular rate and rhythm, no murmurs Abd: soft, non-tender, non-distended, obese Ext: no edema Skin: warm/well-perfused Neuro: alert and oriented x3, no focal findings Psych: appropriate affect Objective Data Active Medications Acetaminophen (Acetaminophen 325 Mg Tablet) 650 mg PO Q6H PRN PRN Reason: Pain, Mild (Pain Scale 1-3) Last Admin: 09/22/22 13:50 Dose: 650 mg Documented By: AMY Acetaminophen/Butalbital/Caffeine (Butalb/Acetamin/Caff 50/325/40 Tablet) 1 tab PO Q4H PRN PRN Reason: headache Albuterol/Ipratropium (Albuterol/Iprat 2.5/0.5mg 3 Ml Ampul.Neb) 3 ml INHALE RQ4H WHILE AWAKE [facility] Last Admin: 09/23/22 09:23 Dose: 3 ml Documented By: SHIVAM Albuterol/Ipratropium (Albuterol/Iprat 2.5/0.5mg 3 Ml Ampul.Neb) 3 ml INHALE Q4H PRN PRN Reason: Wheezing Benzonatate (Benzonatate 100 Mg Capsule) 200 mg PO TID PRN PRN Reason: Cough Last Admin: 09/21/22 10:54 Dose: 200 mg Documented By: TIGIST Bupropion HCl (Bupropion Hcl Xl 150 Mg Tab.Er.24h) 150 mg PO DAILY [facility] Last Admin: 09/23/22 08:45 Dose: 150 mg Documented By: MICHAEL Enoxaparin Sodium (Enoxaparin Sodium 40 Mg/0.4 Ml Syringe) 40 mg SUBCUT Q24H [facility] Last Admin: 09/23/22 05:56 Dose: 40 mg Documented By: GELA Fluticasone/Vilanterol (Fluticasone/Vilanterol 200/25 Blst.W.Dev) 1 puff INHALE RDAILY [facility] Last Admin: 09/23/22 09:20 Dose: Not Given Documented By: SHIVAM Non-Admin Reason: Med Not Available Gabapentin (Gabapentin 400 Mg Capsule) 800 mg PO BEDTIME [facility] Last Admin: 09/22/22 20:37 Dose: 800 mg Documented By: DENIZ Ceftriaxone Sodium 1 gm/ (Sodium Chloride) 50 mls @ 100 mls/hr IV Q24H [facility] Last Infusion: 09/23/22 06:25 Dose: 0 mls/hr Documented By: GELA Azithromycin 500 mg/ Sodium (Chloride) 250 mls @ 125 mls/hr IV DAILY [facility] Last Admin: 09/23/22 10:51 Dose: 125 mls/hr Documented By: MICHAEL Loratadine (Loratadine 10 Mg Tablet) 10 mg PO DAILY [facility] Last Admin: 09/23/22 08:45 Dose: 10 mg Documented By: MICHAEL Melatonin (Melatonin 3 Mg Tablet) 6 mg PO BEDTIME PRN PRN Reason: Insomnia Methylprednisolone Sodium Succinate (Methylprednisolone Sod Succ 40 Mg/Ml Vial) 40 mg IVPUSH Q12H [facility] Last Admin: 09/23/22 10:51 Dose: 40 mg Documented By: MICHAEL Mirtazapine (Mirtazapine 7.5 Mg Tablet) 7.5 mg PO BEDTIME [facility] Last Admin: 09/22/22 20:37 Dose: 7.5 mg Documented By: DENIZ Montelukast Sodium (Montelukast Sodium 10 Mg Tablet) 10 mg PO BEDTIME [facility] Last Admin: 09/22/22 20:37 Dose: 10 mg Documented By: DENIZ Naproxen (Naproxen 500 Mg Tablet) 500 mg PO DAILY PRN PRN Reason: pain Last Admin: 09/22/22 07:54 Dose: 500 mg Documented By: AMY Nicotine (Nicotine 14 Mg Patch.Td24) 14 mg TRANSDERMA DAILY [facility] Last Admin: 09/23/22 08:45 Dose: 14 mg Documented By: MICHAEL Nicotine (Nicotine 21 Mg Patch.Td24) 21 mg TRANSDERMA DAILY [facility] Last Admin: 09/23/22 08:46 Dose: 21 mg Documented By: MICHAEL Nicotine Polacrilex (Nicotine Polacrilex 2 Mg Gum) 2 mg BUCCAL Q2H PRN PRN Reason: Nicotine Cravings Omeprazole (Omeprazole 20 Mg Capsule.Dr) 20 mg PO DAILY@0630 [facility] Last Admin: 09/23/22 06:09 Dose: 20 mg Documented By: GELA Ondansetron HCl (Ondansetron Hcl 4 Mg/2 Ml Vial) 4 mg IVPUSH Q8H PRN PRN Reason: Nausea and Vomiting Paroxetine HCl (Paroxetine Hcl 40 Mg Tablet) 40 mg PO BEDTIME [facility] Last Admin: 09/22/22 20:37 Dose: 40 mg Documented By: DENIZ Pharmacy Consult (Consult Rx Perform Med Rec) 1 each MISCELLANE ONCE PRN PRN Reason: Consult order Polyethylene Glycol (Polyethylene Glycol 3350 17 Gm Powd.Pack) 17 gm PO BID PRN PRN Reason: constipation Last Admin: 09/22/22 14:16 Dose: 17 gm Documented By: AMY Senna/Docusate Sodium (Sennosides/Docusate Sodium Tablet) 2 tab PO BID [facility] Last Admin: 09/23/22 11:06 Dose: 2 tab Documented By: MICHAEL Sodium Chloride (0.9 % Sodium Chloride Flush 3 Ml Syringe) 3 ml IVFLUSH QSHIFT [facility] Last Admin: 09/23/22 10:59 Dose: Not Given Documented By: MICHAEL Non-Admin Reason: Previously Administered Labs 09/22/22 08:12 09/21/22 05:16 Microbiology Microbiology Results: Microbiology 09/21/22 04:21 Blood Culture - Preliminary Blood - Venous No growth after 48 hours. 09/21/22 04:21 Blood Culture - Preliminary Blood - Venous No growth after 48 hours. Assessment and Plan (1) Acute and chronic respiratory failure with hypoxia: Status: Acute Plan d#4 42yo F with mood disorder, GERD, tobacco use disorder, chronic hypoxia on 2L due to COPD presenting with dyspnea, admitted for COPD exac + CAP # acute/chronic hypoxic resp failure due to COPD exac + CAP - wean O2 as darrick, on home 2L O2 # COPD exac - ABX as below, continue steroids, standing/prn nebs, Breo, montelukast # sepsis due to CAP - ceftriaxone/azithromycin d#4/5 # leukocytosis - suspect steroid effect # chronic normocytic anemia - H+H stable, no signs of bleeding # tobacco abuse - NRT # mood disorder - paroxetine, bupropion, gabapentin, mirtazapine # VTE ppx - LMWH # dispo - likely home possibly tomorrow In my clinical judgment, the patient requires continued inpatient hospitalization for the following reasons: resp failure Time Spent With Patient Time: Total time managing care of this patient today __25__ minutes. Quality Stroke Does the patient have a stroke diagnosis?: No VTE Prior VTE?: No VTE Risk Level:: Medical - moderate - high VTE Device Contraindication: Treatment Not Indicated VTE Drug Contraindication: N/A - Med Ordered
[2022-09-23] MEDS: Benzonatate 100 MG CAPSULE 200 MG PO ×2 (16:21→22:59)
[2022-09-23] MEDS: Throat Lozenge, Medicated LOZENGE 1 LOZENGE MUCOUS MEM ×2 (17:58→20:06)
[2022-09-23] MEDS: Gabapentin 400 MG CAPSULE 800 MG PO (20:06)
[2022-09-23] MEDS: PARoxetine HCL 40 MG TABLET PO (20:06)
[2022-09-23] MEDS: Mirtazapine 7.5 MG TABLET PO (20:06)
[2022-09-23] MEDS: Montelukast Sodium 10 MG TABLET PO (20:07)
[2022-09-23] MEDS: Butalb/Acetamin/Caff 50/325/40 TABLET 1 TAB PO (22:58)
[2022-09-24] VITALS (9 sets, daily range): BP systolic 132–154; BP diastolic 72–95; PULSE 75–114; RESP 16–20; TEMP 35.5–36.1; O2SAT 94–98
[2022-09-24] MEDS: Enoxaparin Sodium 40 MG/0.4 ML SYRINGE SUBCUT (05:39)
[2022-09-24] MEDS: Omeprazole 20 MG CAPSULE.DR PO (05:39)
[2022-09-24] MEDS: cefTRIAXone sodium 1 GM in 0.9 % Sodium Chloride 50 ML IV (05:39)
[2022-09-24] MEDS: Albuterol/Iprat 2.5/0.5MG 3 ML AMPUL.NEB INHALE ×5 (07:47→20:42)
[2022-09-24] MEDS: Fluticasone/Vilanterol 200/25 BLST.W.DEV 1 PUFF INHALE (07:47)
[2022-09-24] MEDS: Sennosides/Docusate Sodium TABLET 2 TAB PO ×2 (07:49→21:09)
[2022-09-24] MEDS: buPROPion HCl XL 150 MG TAB.ER.24H PO (07:50)
[2022-09-24] MEDS: Butalb/Acetamin/Caff 50/325/40 TABLET 1 TAB PO ×2 (07:50→16:00)
[2022-09-24] MEDS: 0.9 % Sodium Chloride Flush 3 ML SYRINGE IVFLUSH ×3 (07:51→21:09)
[2022-09-24] MEDS: Loratadine 10 MG TABLET PO (07:51)
[2022-09-24] MEDS: methylPREDNISolone Sod Succ 40 MG/ML VIAL IVPUSH ×2 (07:51→21:09)
[2022-09-24] MEDS: Nicotine 21 MG PATCH.TD24 TRANSDERMA (07:54)
[2022-09-24] MEDS: Azithromycin 500 MG in 0.9 % Sodium Chloride 250 ML 125 MG IV (09:47)
--- NOTE | 2022-09-24 11:33 | HO.PM.IMPN ---
Subjective Subjective Date of Service: 09/24/22 Interval History: coughing, short of breath, weak This history was taken in Dutch from the patient. Review of Systems Review of Systems: Yes all other systems are reviewed and are negative Physical Exam Vital Signs: Vital Signs: Last Vital Signs Temp 96 F L 09/24/22 08:00 Pulse 86 09/24/22 09:51 Resp 20 09/24/22 09:51 BP 132/72 09/24/22 08:00 Pulse Ox 96 09/24/22 08:00 O2 Del Method Room Air 09/24/22 08:00 O2 Flow Rate 3.5 09/24/22 00:00 Oxygen Flow Rate 4 09/21/22 01:32 BMI result Body Mass Index 39.2 Gen: in no acute distress HEENT: sclera anicteric, moist mucus membranes Neck: supple Lungs: diminished with expiratory wheezing bilaterally, prolonged expiratory phase Heart: regular rate and rhythm, no murmurs Abd: soft, non-tender, non-distended, obese Ext: no edema Skin: warm/well-perfused Neuro: alert and oriented x3, no focal findings Psych: appropriate affect Objective Data Active Medications Acetaminophen (Acetaminophen 325 Mg Tablet) 650 mg PO Q6H PRN PRN Reason: Pain, Mild (Pain Scale 1-3) Last Admin: 09/22/22 13:50 Dose: 650 mg Documented By: AMY Acetaminophen/Butalbital/Caffeine (Butalb/Acetamin/Caff 50/325/40 Tablet) 1 tab PO Q4H PRN PRN Reason: headache Last Admin: 09/24/22 07:50 Dose: 1 tab Documented By: STARR Albuterol/Ipratropium (Albuterol/Iprat 2.5/0.5mg 3 Ml Ampul.Neb) 3 ml INHALE RQ4H WHILE AWAKE KRYSTLE Last Admin: 09/24/22 07:47 Dose: 3 ml Documented By: TIM Albuterol/Ipratropium (Albuterol/Iprat 2.5/0.5mg 3 Ml Ampul.Neb) 3 ml INHALE Q4H PRN PRN Reason: Wheezing Last Admin: 09/24/22 09:50 Dose: 3 ml Documented By: TIM Benzocaine (Throat Lozenge, Medicated Lozenge) 1 lozenge MUCOUS MEM Q2H PRN PRN Reason: Sore Throat Last Admin: 09/23/22 20:06 Dose: 1 lozenge Documented By: FEDERICO Benzonatate (Benzonatate 100 Mg Capsule) 200 mg PO TID PRN PRN Reason: Cough Last Admin: 09/23/22 22:59 Dose: 200 mg Documented By: FEDERICO Bupropion HCl (Bupropion Hcl Xl 150 Mg Tab.Er.24h) 150 mg PO DAILY [facility] Last Admin: 09/24/22 07:50 Dose: 150 mg Documented By: STARR Enoxaparin Sodium (Enoxaparin Sodium 40 Mg/0.4 Ml Syringe) 40 mg SUBCUT Q24H [facility] Last Admin: 09/24/22 05:39 Dose: 40 mg Documented By: FEDERICO Fluticasone/Vilanterol (Fluticasone/Vilanterol 200/25 Blst.W.Dev) 1 puff INHALE RDAILY [facility] Last Admin: 09/24/22 07:47 Dose: 1 puff Documented By: TIM Gabapentin (Gabapentin 400 Mg Capsule) 800 mg PO BEDTIME [facility] Last Admin: 09/23/22 20:06 Dose: 800 mg Documented By: FEDERICO Ceftriaxone Sodium 1 gm/ (Sodium Chloride) 50 mls @ 100 mls/hr IV Q24H [facility] Last Infusion: 09/24/22 06:12 Dose: 0 mls/hr Documented By: FEDERICO Azithromycin 500 mg/ Sodium (Chloride) 250 mls @ 125 mls/hr IV DAILY [facility] Last Infusion: 09/24/22 10:53 Dose: 125 mls/hr Documented By: STARR Loratadine (Loratadine 10 Mg Tablet) 10 mg PO DAILY [facility] Last Admin: 09/24/22 07:51 Dose: 10 mg Documented By: STARR Melatonin (Melatonin 3 Mg Tablet) 6 mg PO BEDTIME PRN PRN Reason: Insomnia Methylprednisolone Sodium Succinate (Methylprednisolone Sod Succ 40 Mg/Ml Vial) 40 mg IVPUSH Q12H [facility] Last Admin: 09/24/22 07:51 Dose: 40 mg Documented By: STARR Mirtazapine (Mirtazapine 7.5 Mg Tablet) 7.5 mg PO BEDTIME [facility] Last Admin: 09/23/22 20:06 Dose: 7.5 mg Documented By: FEDERICO Montelukast Sodium (Montelukast Sodium 10 Mg Tablet) 10 mg PO BEDTIME [facility] Last Admin: 09/23/22 20:07 Dose: 10 mg Documented By: FEDERICO Naproxen (Naproxen 500 Mg Tablet) 500 mg PO DAILY PRN PRN Reason: pain Last Admin: 09/22/22 07:54 Dose: 500 mg Documented By: AMY Nicotine (Nicotine 21 Mg Patch.Td24) 21 mg TRANSDERMA DAILY [facility] Last Admin: 09/24/22 07:54 Dose: 21 mg Documented By: STARR Nicotine Polacrilex (Nicotine Polacrilex 2 Mg Gum) 2 mg BUCCAL Q2H PRN PRN Reason: Nicotine Cravings Omeprazole (Omeprazole 20 Mg Capsule.Dr) 20 mg PO DAILY@0630 [facility] Last Admin: 09/24/22 05:39 Dose: 20 mg Documented By: FEDERICO Ondansetron HCl (Ondansetron Hcl 4 Mg/2 Ml Vial) 4 mg IVPUSH Q8H PRN PRN Reason: Nausea and Vomiting Paroxetine HCl (Paroxetine Hcl 40 Mg Tablet) 40 mg PO BEDTIME [facility] Last Admin: 09/23/22 20:06 Dose: 40 mg Documented By: FEDERICO Pharmacy Consult (Consult Rx Perform Med Rec) 1 each MISCELLANE ONCE PRN PRN Reason: Consult order Polyethylene Glycol (Polyethylene Glycol 3350 17 Gm Powd.Pack) 17 gm PO BID PRN PRN Reason: constipation Last Admin: 09/22/22 14:16 Dose: 17 gm Documented By: AMY Senna/Docusate Sodium (Sennosides/Docusate Sodium Tablet) 2 tab PO BID [facility] Last Admin: 09/24/22 07:49 Dose: 2 tab Documented By: STARR Sodium Chloride (0.9 % Sodium Chloride Flush 3 Ml Syringe) 3 ml IVFLUSH QSHIFT [facility] Last Admin: 09/24/22 07:51 Dose: 3 ml Documented By: STARR Labs 09/22/22 08:12 09/21/22 05:16 Assessment and Plan (1) Acute and chronic respiratory failure with hypoxia: Status: Acute Plan d#5 42yo F with mood disorder, GERD, tobacco use disorder, chronic hypoxia on 2L due to COPD presenting with dyspnea, admitted for COPD exac + CAP # acute/chronic hypoxic resp failure due to COPD exac + CAP - wean O2 as darrick, on home 2L O2, currently on 3.5L here # COPD exac - ABX as below, continue steroids, standing/prn nebs, Breo, montelukast # sepsis due to CAP - ceftriaxone/azithromycin d#08/27 # leukocytosis - suspect steroid effect # constipation - bowel regimen # chronic normocytic anemia - H+H stable, no signs of bleeding # tobacco abuse - NRT # mood disorder - paroxetine, bupropion, gabapentin, mirtazapine # VTE ppx - LMWH # dispo - likely home possibly tomorrow In my clinical judgment, the patient requires continued inpatient hospitalization for the following reasons: resp failure Time Spent With Patient Time: Total time managing care of this patient today __35__ minutes. Quality Stroke Does the patient have a stroke diagnosis?: No VTE Prior VTE?: No VTE Risk Level:: Medical - moderate - high VTE Device Contraindication: Treatment Not Indicated VTE Drug Contraindication: N/A - Med Ordered
--- NOTE | 2022-09-24 16:02 | MHC.CM.PN ---
Per MD rounds patient is not ready for discharge. Discharge is planned for tomorrow. DP home self care spouse will transport home
[2022-09-24] MEDS: Mirtazapine 7.5 MG TABLET PO (21:09)
[2022-09-24] MEDS: Gabapentin 400 MG CAPSULE 800 MG PO (21:09)
[2022-09-24] MEDS: Montelukast Sodium 10 MG TABLET PO (21:09)
[2022-09-24] MEDS: PARoxetine HCL 40 MG TABLET PO (21:09)
[2022-09-25] MEDS: Enoxaparin Sodium 40 MG/0.4 ML SYRINGE SUBCUT (04:15)
[2022-09-25] MEDS: cefTRIAXone sodium 1 GM in 0.9 % Sodium Chloride 50 ML IV (04:16)
[2022-09-25] MEDS: Omeprazole 20 MG CAPSULE.DR PO (05:30)
[2022-09-25 06:16] VITALS: PULSE 71; RESP 16; TEMP 36.1
[2022-09-25 06:31] LABS: Hematocrit 39.5 % (37.0-47.0); Hemoglobin 12.6 g/dl (12.0-16.0); Mean Corpuscular HGB Conc 31.9 g/dl (31.0-35.0); Mean Corpuscular Hemoglobin 25.7 pg (27.0-33.0); Mean Corpuscular Volume 80.4 fL (80.0-98.0); Mean Platelet Volume 10.9 fL (9.4-12.3); Platelet Count 431 X10*3/uL (160-400); Red Blood Count 4.91 X10*6/uL (4.20-5.50); Red Cell Distribution Width 16.1 % (11.0-16.0); White Blood Count 16.5 X10*3/uL (4.8-10.8)
[2022-09-25 07:05] LABS: Anion Gap 15 (12-20); Blood Urea Nitrogen 22 mg/dL (9-16); Calcium 9.4 mg/dL (8.4-10.2); Carbon Dioxide 26 mmol/L (22-29); Chloride 99 mmol/L (96-108); Creatinine Clr Calc Pharmacy 112.2; Estimated Glomerular Filt Rate > 60; Glucose Random 324 mg/dL (60-115); Potassium 5.4 mmol/L (3.3-5.1); Sodium 135 mmol/L (135-145)
[2022-09-25 07:06] VITALS: BP 121/75; PULSE 73; RESP 19; TEMP 36.6; O2SAT 96
[2022-09-25 07:21] LABS: Anion Gap 16 (12-20); Blood Urea Nitrogen 21 mg/dL (9-16); Calcium 9.3 mg/dL (8.4-10.2); Carbon Dioxide 26 mmol/L (22-29); Chloride 101 mmol/L (96-108); Creatinine Clr Calc Pharmacy 114.9; Estimated Glomerular Filt Rate > 60; Glucose Random 296 mg/dL (60-115); Magnesium 2.4 mg/dL (1.6-2.6); Potassium 4.9 mmol/L (3.3-5.1); Sodium 138 mmol/L (135-145)
[2022-09-25] MEDS: Nicotine 21 MG PATCH.TD24 TRANSDERMA (09:41)
[2022-09-25] MEDS: 0.9 % Sodium Chloride Flush 3 ML SYRINGE IVFLUSH ×2 (09:41→20:57)
[2022-09-25] MEDS: Azithromycin 500 MG in 0.9 % Sodium Chloride 250 ML 125 MG IV (09:41)
[2022-09-25] MEDS: methylPREDNISolone Sod Succ 40 MG/ML VIAL IVPUSH (09:42)
[2022-09-25] MEDS: Lactulose 20 GM/30 ML SOLUTION PO (09:42)
[2022-09-25] MEDS: Sennosides/Docusate Sodium TABLET 2 TAB PO ×2 (09:42→20:56)
[2022-09-25] MEDS: buPROPion HCl XL 150 MG TAB.ER.24H PO (09:42)
[2022-09-25] MEDS: Loratadine 10 MG TABLET PO (09:42)
[2022-09-25 11:21] VITALS: BP 121/75; PULSE 73; O2SAT 96
[2022-09-25 11:58] VITALS: PULSE 73; RESP 16; O2SAT 95
[2022-09-25] MEDS: Albuterol/Iprat 2.5/0.5MG 3 ML AMPUL.NEB INHALE ×2 (11:58→19:57)
--- NOTE | 2022-09-25 12:00 | HO.PM.IMPN ---
Subjective Subjective Date of Service: 09/25/22 Interval History: still coughing feels weak PT recommends STR This history was taken in Malaysian from the patient. Review of Systems Review of Systems: Yes all other systems are reviewed and are negative Physical Exam Vital Signs: Vital Signs: Last Vital Signs Temp 98 F 09/25/22 07:06 Pulse 73 09/25/22 11:58 Resp 16 09/25/22 11:58 BP 121/75 09/25/22 11:21 Pulse Ox 96 09/25/22 11:21 O2 Del Method Nasal Cannula 09/25/22 07:06 O2 Flow Rate 95 09/25/22 06:16 Oxygen Flow Rate 4 09/21/22 01:32 BMI result Body Mass Index 39.2 Gen: in no acute distress HEENT: sclera anicteric, moist mucus membranes Neck: supple Lungs: diminished with expiratory wheezing bilaterally, prolonged expiratory phase Heart: regular rate and rhythm, no murmurs Abd: soft, non-tender, non-distended, obese Ext: no edema Skin: warm/well-perfused Neuro: alert and oriented x3, no focal findings Psych: appropriate affect Objective Data Active Medications Acetaminophen (Acetaminophen 325 Mg Tablet) 650 mg PO Q6H PRN PRN Reason: Pain, Mild (Pain Scale 1-3) Last Admin: 09/22/22 13:50 Dose: 650 mg Documented By: AMY Acetaminophen/Butalbital/Caffeine (Butalb/Acetamin/Caff 50/325/40 Tablet) 1 tab PO Q4H PRN PRN Reason: headache Last Admin: 09/24/22 16:00 Dose: 1 tab Documented By: STARR Albuterol/Ipratropium (Albuterol/Iprat 2.5/0.5mg 3 Ml Ampul.Neb) 3 ml INHALE RQ4H WHILE AWAKE KRYSTLE Last Admin: 09/25/22 11:58 Dose: 3 ml Documented By: PAM Albuterol/Ipratropium (Albuterol/Iprat 2.5/0.5mg 3 Ml Ampul.Neb) 3 ml INHALE Q4H PRN PRN Reason: Wheezing Last Admin: 09/24/22 09:50 Dose: 3 ml Documented By: TIM Benzocaine (Throat Lozenge, Medicated Lozenge) 1 lozenge MUCOUS MEM Q2H PRN PRN Reason: Sore Throat Last Admin: 09/23/22 20:06 Dose: 1 lozenge Documented By: DENNYSRISFelix Benzonatate (Benzonatate 100 Mg Capsule) 200 mg PO TID PRN PRN Reason: Cough Last Admin: 09/23/22 22:59 Dose: 200 mg Documented By: FEDERICO Bupropion HCl (Bupropion Hcl Xl 150 Mg Tab.Er.24h) 150 mg PO DAILY [facility] Last Admin: 09/25/22 09:42 Dose: 150 mg Documented By: JUAN Enoxaparin Sodium (Enoxaparin Sodium 40 Mg/0.4 Ml Syringe) 40 mg SUBCUT Q24H [facility] Last Admin: 09/25/22 04:15 Dose: 40 mg Documented By: JASMIN Fluticasone/Vilanterol (Fluticasone/Vilanterol 200/25 Blst.W.Dev) 1 puff INHALE RDAILY [facility] Last Admin: 09/25/22 07:54 Dose: Not Given Documented By: PAM Non-Admin Reason: Patient Asleep Gabapentin (Gabapentin 400 Mg Capsule) 800 mg PO BEDTIME [facility] Last Admin: 09/24/22 21:09 Dose: 800 mg Documented By: JASMIN Ceftriaxone Sodium 1 gm/ (Sodium Chloride) 50 mls @ 100 mls/hr IV Q24H [facility] Last Infusion: 09/25/22 04:58 Dose: 0 mls/hr Documented By: JASMIN Azithromycin 500 mg/ Sodium (Chloride) 250 mls @ 125 mls/hr IV DAILY [facility] Last Admin: 09/25/22 09:41 Dose: 125 mls/hr Documented By: JUAN Lactulose (Lactulose 20 Gm/30 Ml Solution) 20 gm PO BID [facility] Last Admin: 09/25/22 09:42 Dose: 20 gm Documented By: JUAN Loratadine (Loratadine 10 Mg Tablet) 10 mg PO DAILY [facility] Last Admin: 09/25/22 09:42 Dose: 10 mg Documented By: JUAN Melatonin (Melatonin 3 Mg Tablet) 6 mg PO BEDTIME PRN PRN Reason: Insomnia Methylprednisolone Sodium Succinate (Methylprednisolone Sod Succ 40 Mg/Ml Vial) 40 mg IVPUSH Q12H [facility] Last Admin: 09/25/22 09:42 Dose: 40 mg Documented By: JUAN Mirtazapine (Mirtazapine 7.5 Mg Tablet) 7.5 mg PO BEDTIME [facility] Last Admin: 09/24/22 21:09 Dose: 7.5 mg Documented By: JASMIN Montelukast Sodium (Montelukast Sodium 10 Mg Tablet) 10 mg PO BEDTIME [facility] Last Admin: 09/24/22 21:09 Dose: 10 mg Documented By: JASMIN Naproxen (Naproxen 500 Mg Tablet) 500 mg PO DAILY PRN PRN Reason: pain Last Admin: 09/22/22 07:54 Dose: 500 mg Documented By: AMY Nicotine (Nicotine 21 Mg Patch.Td24) 21 mg TRANSDERMA DAILY [facility] Last Admin: 09/25/22 09:41 Dose: 21 mg Documented By: JUAN Nicotine Polacrilex (Nicotine Polacrilex 2 Mg Gum) 2 mg BUCCAL Q2H PRN PRN Reason: Nicotine Cravings Omeprazole (Omeprazole 20 Mg Capsule.Dr) 20 mg PO DAILY@0630 [facility] Last Admin: 09/25/22 05:30 Dose: 20 mg Documented By: JASMIN Ondansetron HCl (Ondansetron Hcl 4 Mg/2 Ml Vial) 4 mg IVPUSH Q8H PRN PRN Reason: Nausea and Vomiting Paroxetine HCl (Paroxetine Hcl 40 Mg Tablet) 40 mg PO BEDTIME [facility] Last Admin: 09/24/22 21:09 Dose: 40 mg Documented By: JASMIN Pharmacy Consult (Consult Rx Perform Med Rec) 1 each MISCELLANE ONCE PRN PRN Reason: Consult order Polyethylene Glycol (Polyethylene Glycol 3350 17 Gm Powd.Pack) 17 gm PO BID PRN PRN Reason: constipation Last Admin: 09/22/22 14:16 Dose: 17 gm Documented By: AMY Senna/Docusate Sodium (Sennosides/Docusate Sodium Tablet) 2 tab PO BID [facility] Last Admin: 09/25/22 09:42 Dose: 2 tab Documented By: JUAN Sodium Chloride (0.9 % Sodium Chloride Flush 3 Ml Syringe) 3 ml IVFLUSH QSHIFT [facility] Last Admin: 09/25/22 09:41 Dose: 3 ml Documented By: JUAN Labs 09/25/22 05:27 09/25/22 06:51 Labs: Laboratory Results - last 24 hr 09/25/22 09/25/22 09/25/22 05:27 05:28 06:51 MCV 80.4 MCH 25.7 L MCHC 31.9 RDW 16.1 H Plt Count 431 H MPV 10.9 Absolute Nucleated RBC 0.000 Nucleated RBC % (auto) 0.0 Anion Gap 15 16 Estim Creat Clear Calc 112.2 114.9 Estimated GFR > 60 > 60 Random Glucose 324 H 296 H Calcium 9.4 D 9.3 Magnesium 2.4 Assessment and Plan (1) Acute and chronic respiratory failure with hypoxia: Status: Acute Plan d#6 42yo F with mood disorder, GERD, tobacco use disorder, chronic hypoxia on 2L due to COPD presenting with dyspnea, admitted for COPD exac + CAP # acute/chronic hypoxic resp failure due to COPD exac + CAP - wean O2 as darrick, on home 2L O2 at all times # COPD exac - ABX as below, continue steroids but start to taper, standing/prn nebs, Breo, montelukast # sepsis due to CAP - ceftriaxone/azithromycin d#5/ completed today # leukocytosis - suspect steroid effect # constipation - bowel regimen # chronic normocytic anemia - H+H stable, no signs of bleeding # tobacco abuse - NRT # mood disorder - paroxetine, bupropion, gabapentin, mirtazapine # VTE ppx - LMWH # dispo - awaiting STR placement In my clinical judgment, the patient requires continued inpatient hospitalization for the following reasons: STR placement Time Spent With Patient Time: Total time managing care of this patient today _35___ minutes. Quality Stroke Does the patient have a stroke diagnosis?: No VTE Prior VTE?: No VTE Risk Level:: Medical - moderate - high VTE Device Contraindication: Treatment Not Indicated VTE Drug Contraindication: N/A - Med Ordered
[2022-09-25] MEDS: ondansetron HCL 4 MG/2 ML VIAL IVPUSH (12:26)
[2022-09-25] MEDS: NaPROXEN 500 MG TABLET PO (12:26)
[2022-09-25 16:00] VITALS: BP 134/69; PULSE 80; RESP 18; TEMP 36.1; O2SAT 95
[2022-09-25] MEDS: Butalb/Acetamin/Caff 50/325/40 TABLET 1 TAB PO ×2 (18:16→23:41)
[2022-09-25 19:57] VITALS: PULSE 77; RESP 20; O2SAT 98
[2022-09-25] MEDS: Gabapentin 400 MG CAPSULE 800 MG PO (20:56)
[2022-09-25] MEDS: Mirtazapine 7.5 MG TABLET PO (20:56)
[2022-09-25] MEDS: Montelukast Sodium 10 MG TABLET PO (20:56)
[2022-09-25] MEDS: PARoxetine HCL 40 MG TABLET PO (20:56)
[2022-09-26] VITALS (14 sets, daily range): BP systolic 104–139; BP diastolic 55–90; PULSE 77–98; RESP 16–20; TEMP 36.1–37.4; O2SAT 96–100
[2022-09-26] MEDS: Enoxaparin Sodium 40 MG/0.4 ML SYRINGE SUBCUT (05:15)
[2022-09-26] MEDS: Omeprazole 20 MG CAPSULE.DR PO (05:15)
[2022-09-26] MEDS: cefTRIAXone sodium 1 GM in 0.9 % Sodium Chloride 50 ML IV (05:15)
[2022-09-26] MEDS: Albuterol/Iprat 2.5/0.5MG 3 ML AMPUL.NEB INHALE ×4 (07:51→19:06)
[2022-09-26] MEDS: Fluticasone/Vilanterol 200/25 BLST.W.DEV 1 PUFF INHALE (07:52)
--- NOTE | 2022-09-26 09:30 | P.PNIM_ITS ---
Subjective Subjective Date of Service: 09/26/22 Interval History: This history was taken in Albanian from the patient. Wheezing improved C/o nausea + dizziness + dyspnea Review of Systems Review of Systems: Yes all other systems are reviewed and are negative Physical Exam Vital Signs: Vital Signs: Last Vital Signs Temp 98.8 F 09/26/22 08:00 Pulse 95 09/26/22 08:54 Resp 20 09/26/22 08:00 BP 139/90 H 09/26/22 08:54 Pulse Ox 100 09/26/22 08:00 O2 Del Method Room Air 09/26/22 08:00 O2 Flow Rate 2 09/26/22 04:00 Oxygen Flow Rate 4 09/21/22 01:32 BMI result Body Mass Index 39.2 Gen: in no acute distress HEENT: sclera anicteric, moist mucus membranes Neck: supple Lungs: diminished, no wheezing today Heart: regular rate and rhythm, no murmurs Abd: soft, non-tender, non-distended, obese Ext: no edema Skin: warm/well-perfused Neuro: alert and oriented x3, no focal findings Psych: appropriate affect Objective Data Active Medications Acetaminophen (Acetaminophen 325 Mg Tablet) 650 mg PO Q6H PRN PRN Reason: Pain, Mild (Pain Scale 1-3) Last Admin: 09/22/22 13:50 Dose: 650 mg Documented By: AMY Acetaminophen/Butalbital/Caffeine (Butalb/Acetamin/Caff 50/325/40 Tablet) 1 tab PO Q4H PRN PRN Reason: headache Last Admin: 09/25/22 23:41 Dose: 1 tab Documented By: OSORIO Albuterol/Ipratropium (Albuterol/Iprat 2.5/0.5mg 3 Ml Ampul.Neb) 3 ml INHALE RQ4H WHILE AWAKE [place]RYSTLE Last Admin: 09/26/22 07:51 Dose: 3 ml Documented By: TIM Albuterol/Ipratropium (Albuterol/Iprat 2.5/0.5mg 3 Ml Ampul.Neb) 3 ml INHALE Q4 H PRN PRN Reason: Wheezing Last Admin: 09/24/22 09:50 Dose: 3 ml Documented By: TIM Benzocaine (Throat Lozenge, Medicated Lozenge) 1 lozenge MUCOUS MEM Q2H PRN PRN Reason: Sore Throat Last Admin: 09/23/22 20:06 Dose: 1 lozenge Documented By: ODRISFelix Benzonatate (Benzonatate 100 Mg Capsule) 200 mg PO TID PRN PRN Reason: Cough Last Admin: 09/23/22 22:59 Dose: 200 mg Documented By: FEDERICO Bupropion HCl (Bupropion Hcl Xl 150 Mg Tab.Er.24h) 150 mg PO DAILY [facility] Last Admin: 09/25/22 09:42 Dose: 150 mg Documented By: JUAN Enoxaparin Sodium (Enoxaparin Sodium 40 Mg/0.4 Ml Syringe) 40 mg SUBCUT Q24H [facility] Last Admin: 09/26/22 05:15 Dose: 40 mg Documented By: EVIN Fluticasone/Vilanterol (Fluticasone/Vilanterol 200/25 Blst.W.Dev) 1 puff INHALE RDAILY [facility] Last Admin: 09/26/22 07:52 Dose: 1 puff Documented By: TIM Gabapentin (Gabapentin 400 Mg Capsule) 800 mg PO BEDTIME [facility] Last Admin: 09/25/22 20:56 Dose: 800 mg Documented By: EVIN Ceftriaxone Sodium 1 gm/ (Sodium Chloride) 50 mls @ 100 mls/hr IV Q24H [facility] Last Infusion: 09/26/22 05:45 Dose: 0 mls/hr Documented By: EVIN Azithromycin 500 mg/ Sodium (Chloride) 250 mls @ 125 mls/hr IV DAILY [facility] Last Infusion: 09/25/22 12:31 Dose: 125 mls/hr Documented By: JUAN Lactulose (Lactulose 20 Gm/30 Ml Solution) 20 gm PO BID [facility] Last Admin: 09/25/22 21:01 Dose: Not Given Documented By: EVIN Non-Admin Reason: Patient Refused Loratadine (Loratadine 10 Mg Tablet) 10 mg PO DAILY [facility] Last Admin: 09/25/22 09:42 Dose: 10 mg Documented By: JUAN Melatonin (Melatonin 3 Mg Tablet) 6 mg PO BEDTIME PRN PRN Reason: Insomnia Methylprednisolone Sodium Succinate (Methylprednisolone Sod Succ 40 Mg/Ml Vial) 40 mg IVPUSH DAILY [facility] Mirtazapine (Mirtazapine 7.5 Mg Tablet) 7.5 mg PO BEDTIME [facility] Last Admin: 09/25/22 20:56 Dose: 7.5 mg Documented By: EVIN Montelukast Sodium (Montelukast Sodium 10 Mg Tablet) 10 mg PO BEDTIME [facility] Last Admin: 09/25/22 20:56 Dose: 10 mg Documented By: EVIN Naproxen (Naproxen 500 Mg Tablet) 500 mg PO DAILY PRN PRN Reason: pain Last Admin: 09/25/22 12:26 Dose: 500 mg Documented By: JUAN Nicotine (Nicotine 21 Mg Patch.Td24) 21 mg TRANSDERMA DAILY [facility] Last Admin: 09/25/22 09:41 Dose: 21 mg Documented By: JUAN Nicotine Polacrilex (Nicotine Polacrilex 2 Mg Gum) 2 mg BUCCAL Q2H PRN PRN Reason: Nicotine Cravings Omeprazole (Omeprazole 20 Mg Capsule.Dr) 20 mg PO DAILY@0630 [facility] Last Admin: 09/26/22 05:15 Dose: 20 mg Documented By: EVIN Ondansetron HCl (Ondansetron Hcl 4 Mg/2 Ml Vial) 4 mg IVPUSH Q8H PRN PRN Reason: Nausea and Vomiting Last Admin: 09/25/22 12:26 Dose: 4 mg Documented By: JUAN Paroxetine HCl (Paroxetine Hcl 40 Mg Tablet) 40 mg PO BEDTIME [facility] Last Admin: 09/25/22 20:56 Dose: 40 mg Documented By: EVIN Pharmacy Consult (Consult Rx Perform Med Rec) 1 each MISCELLANE ONCE PRN PRN Reason: Consult order Polyethylene Glycol (Polyethylene Glycol 3350 17 Gm Powd.Pack) 17 gm PO BID PRN PRN Reason: constipation Last Admin: 09/22/22 14:16 Dose: 17 gm Documented By: AMY Senna/Docusate Sodium (Sennosides/Docusate Sodium Tablet) 2 tab PO BID [facility] Last Admin: 09/25/22 20:56 Dose: 2 tab Documented By: EVIN Sodium Chloride (0.9 % Sodium Chloride Flush 3 Ml Syringe) 3 ml IVFLUSH QSHIFT [facility] Last Admin: 09/25/22 20:57 Dose: 3 ml Documented By: EVIN Labs 09/25/22 05:27 09/25/22 06:51 Microbiology Microbiology Results: Microbiology 09/21/22 04:21 Blood Culture - Final Blood - Venous No growth after 5 days. 09/21/22 04:21 Blood Culture - Final Blood - Venous No growth after 5 days. Assessment and Plan (1) Acute and chronic respiratory failure with hypoxia: Status: Acute Plan d#7 42yo F with mood disorder, GERD, tobacco use disorder, chronic hypoxia on 2L due to COPD presenting with dyspnea, admitted for COPD exac + CAP # acute/chronic hypoxic resp failure due to COPD exac + CAP - wean O2 as darrick, on home 2L O2 at all times # COPD exac - ABX as below, continue steroids but start to taper, standing/prn nebs, Breo, montelukast # sepsis due to CAP - ceftriaxone/azithromycin d#08/27 completed 09/25/33 # leukocytosis - suspect steroid effect, improved # constipation - bowel regimen # chronic normocytic anemia - H+H stable, no signs of bleeding # tobacco abuse - NRT # mood disorder - paroxetine, bupropion, gabapentin, mirtazapine # VTE ppx - LMWH # dispo - awaiting STR placement In my clinical judgment, the patient requires continued inpatient hospitaliza tion for the following reasons: STR placement Time Spent With Patient Time: Total time managing care of this patient today ___30_ minutes. Quality Stroke Does the patient have a stroke diagnosis?: No VTE Prior VTE?: No VTE Risk Level:: Medical - moderate - high VTE Device Contraindication: Treatment Not Indicated VTE Drug Contraindication: N/A - Med Ordered
[2022-09-26] MEDS: Azithromycin 500 MG in 0.9 % Sodium Chloride 250 ML 125 MG IV (09:32)
[2022-09-26] MEDS: 0.9 % Sodium Chloride Flush 3 ML SYRINGE IVFLUSH ×2 (09:35→20:30)
[2022-09-26] MEDS: Nicotine 21 MG PATCH.TD24 TRANSDERMA (09:35)
[2022-09-26] MEDS: Loratadine 10 MG TABLET PO (09:36)
[2022-09-26] MEDS: buPROPion HCl XL 150 MG TAB.ER.24H PO (09:36)
[2022-09-26] MEDS: methylPREDNISolone Sod Succ 40 MG/ML VIAL IVPUSH (09:36)
[2022-09-26] MEDS: ondansetron HCL 4 MG/2 ML VIAL IVPUSH (09:56)
[2022-09-26] MEDS: 0.9 % Sodium Chloride 1,000 ML 125 ML IVCONT (09:56)
[2022-09-26] MEDS: NaPROXEN 500 MG TABLET PO (18:14)
[2022-09-26] MEDS: Sennosides/Docusate Sodium TABLET 2 TAB PO (20:28)
[2022-09-26] MEDS: Gabapentin 400 MG CAPSULE 800 MG PO (20:29)
[2022-09-26] MEDS: PARoxetine HCL 40 MG TABLET PO (20:29)
[2022-09-26] MEDS: Montelukast Sodium 10 MG TABLET PO (20:29)
[2022-09-26] MEDS: Mirtazapine 7.5 MG TABLET PO (20:29)
[2022-09-27] MEDS: Omeprazole 20 MG CAPSULE.DR PO (05:44)
[2022-09-27] MEDS: Enoxaparin Sodium 40 MG/0.4 ML SYRINGE SUBCUT (05:44)
[2022-09-27] MEDS: Albuterol/Iprat 2.5/0.5MG 3 ML AMPUL.NEB INHALE ×3 (07:53→15:15)
[2022-09-27 07:54] VITALS: BP 124/60; PULSE 84; RESP 18; TEMP 35.9; O2SAT 96
[2022-09-27 07:59] VITALS: PULSE 88; RESP 16; O2SAT 97
[2022-09-27] MEDS: Fluticasone/Vilanterol 200/25 BLST.W.DEV 1 PUFF INHALE (08:14)
[2022-09-27] MEDS: Nicotine 21 MG PATCH.TD24 TRANSDERMA (08:44)
[2022-09-27] MEDS: Loratadine 10 MG TABLET PO (08:44)
[2022-09-27] MEDS: buPROPion HCl XL 150 MG TAB.ER.24H PO (08:44)
[2022-09-27] MEDS: methylPREDNISolone Sod Succ 40 MG/ML VIAL IVPUSH (08:44)
[2022-09-27] MEDS: 0.9 % Sodium Chloride Flush 3 ML SYRINGE IVFLUSH (08:45)
[2022-09-27] MEDS: ondansetron HCL 4 MG/2 ML VIAL IVPUSH (08:52)
--- NOTE | 2022-09-27 09:30 | P.F2F_ITS ---
Service Date Service Date: 09/27/22 Encounter Date of encounter: 09/27/22 Reasons for Services Signs and symptoms assessed: Gross Deconditioning, Impaired Bed Mobility, Impaired Gait Pattern, Impaired Safety ,Impaired Standing Balance, Impaired Transfer Ability,Muscle Weakness Reason for physical therapy: home safety and mobility, therapeutic exercises, gait/transfer training, assess need for DME, ADL training and energy conservation MD Overseeing Care: Tatum Magdaleno Homebound: Leaving the home is medically contraindicated at this time without the asist of a device and/or another person due th the listed conditions above and below. Reason homebound: unsteady gait / fall risk, shortness of breath with minimal effort and weakness related to hospital stay Homebound supporting statement: Bed Mobility, Transfer Training,Gait Training,Stair Training, Therapeutic Activities, Therapeutic Exercise,Neuro Re-education, Patient Education, Safety,Balance Certification: Based on the above findings, I certify that this patient is confined to the home and needs intermittent residential care, physical therapy and/or speech therapy, or continues to need occupational therapy. The patient is under my care, and I have initiated the establishment of the plan of care. The patient will be followed by a physician who will periodically review the plan of care. Time Spent With Patient Time: Total time managing care of this patient today ____ minutes.
--- NOTE | 2022-09-27 09:35 | PM.DS ---
DS: Providers Provider Date of Service: 09/27/22 Date of admission: 09/21/22 04:04 Date of discharge: 09/27/22 Primary care physician: Tatum Magdaleno MD DS: Diagnosis Discharge Diagnosis (1) Acute and chronic respiratory failure with hypoxia: Status: Acute (2) Pneumonia: Status: Acute (3) Acute exacerbation of COPD with asthma: Status: Acute (4) Sepsis: Status: Acute DS: Summary Hospital Course Hospital Course: from admission H+P by hospitalist Blank Ram MD, 09/21/22: This is a 42-year-old female with pertinent history of mood disorder, gastroesophageal reflux disease, tobacco use disorder, chronic hypoxemic respiratory failure due to COPD on 2 L supplemental oxygen who presents to the emergency department for evaluation of dyspnea.? Patient states she started having fevers and chills 3 days prior to presentation.? It was associated with productive cough with yellowish sputum production.? It progressed to dyspnea, worse with exertion and wheezing.? Patient tried her home inhaler without relief.? No sick contacts.? She denies chest discomfort, palpitations, abdominal pain, changes in urinary or bowel habits.? No orthopnea or PND In the emergency department, patient was found to be tachycardic, tachypneic and leukocytosis 42yo F with mood disorder, GERD, tobacco use disorder, chronic hypoxia on 2L due to COPD presenting with dyspnea, admitted for COPD exac + CAP hospital course by problem: # acute/chronic hypoxic resp failure due to COPD exac + CAP - weaned to home O2 requirement of 2L via NC at all times # COPD exac - treated with antibiotics as below, treated with steroids + standing/prn nebs # sepsis due to CAP - five days of ceftriaxone/azithromycin completed 09/25/22 # leukocytosis - suspect steroid effect, improved Recommended transfer to SNF for short-term rehabilitation but patient adamantly refused. She was discharged home with resumption of VNA services for home PT. Time Spent with Patient Time attestation: Total time managing care of this patient today ___40_ minutes. Discharge coordination time: Greater than 30 minutes Quality: Safe Use of Opioids Does Pt have an Active Cancer Diagnosis on the Problem List?: No Quality: Stroke Does the patient have a stroke diagnosis?: No Physical Exam Vital Signs: Vital Signs: Last Vital Signs Temp 96.6 F L 09/27/22 07:54 Pulse 88 09/27/22 07:59 Resp 16 09/27/22 07:59 BP 124/60 09/27/22 07:54 Pulse Ox 96 09/27/22 07:54 O2 Del Method Room Air 09/27/22 07:54 O2 Flow Rate 2 09/26/22 23:58 Oxygen Flow Rate 4 09/21/22 01:32 BMI result Body Mass Index 39.2 Gen: in no acute distress HEENT: sclera anicteric, moist mucus membranes Neck: supple Lungs: clear to auscultation bilaterally Heart: regular rate and rhythm, no murmurs Abd: soft, non-tender, non-distended, obese Ext: no edema Skin: warm/well-perfused Neuro: alert and oriented x3, no focal findings Psych: appropriate affect DS: Data Data Completed and Pending Completed studies during hospitalization [Text1]: Procedures Assistance with Respiratory Ventilation, Less than 24 Consecutive Hours, Continuous Positive Airway Pressure (04/23/22) Insertion of Endotracheal Airway into Trachea, Via Natural or Artificial Opening (04/23/22) Insertion of Infusion Device into Superior Vena Cava, Percutaneous Approach (04/23/22) Introduction of Baricitinib into Mouth and Pharynx, External Approach, [employer] (04/23/22) Introduction of Vasopressor into Peripheral Vein, Percutaneous Approach (04/23/22) Respiratory Ventilation, Greater than 96 Consecutive Hours (04/23/22) Ultrasonography of Superior Vena Cava, Guidance (04/23/22) Discharge Plan Discharge Anticipated Discharge Date/Time: 09/25/22 11:55 Patient Disposition: Xfer SNF Discharge Diagnosis: acute/chronic resp failure due to PNA + COPD exacerbation Referrals: Tatum Magdaleno MD [Primary Care Provider] - 1 Week Discharge Medications: New prednisone 10 mg tablet See Rx Instructions .ROUTE .COMPLEX Qty: 20 0RF Rx Instructions: 40 mg daily x 2 days then 30 mg daily x 2 days then 20 mg daily x 2 days then 10 mg daily x 2 days Continued montelukast 10 mg tablet 1 tab PO BEDTIME bupropion HCl 150 mg tablet extended release 24 hr 1 tab PO DAILY riboflavin (vitamin B2) [Vitamin B-2] 100 mg tablet 2 tab PO BID meloxicam 15 mg tablet 1 tab PO DAILY PRN (Reason: pain) nicotine (polacrilex) 4 mg gum 1 gum PO Q2H PRN (Reason: Nicotine Cravings) nicotine 21 mg/24 hr patch 24 hour 1 patch topical DAILY cyanocobalamin (vitamin B-12) 1,000 mcg tablet, sublingual 1 tab sublingual DAILY dicyclomine 20 mg tablet 20 mg PO TIDAC loratadine 10 mg Tablet 10 mg PO DAILY Qty: 7 0RF gabapentin 400 mg capsule 2 cap PO BEDTIME hydroxyzine pamoate 50 mg capsule 50 mg PO DAILY PRN (Reason: Anxiety) hydroxyzine pamoate 50 mg capsule 100 mg PO BEDTIME PRN (Reason: Anxiety) prazosin 5 mg capsule 1 cap PO BEDTIME paroxetine HCl 40 mg tablet 1 tab PO BEDTIME budesonide-formoterol [Symbicort] 160-4.5 mcg/actuation HFA aerosol inhaler 2 puff PO BID pantoprazole 40 mg tablet,delayed release (DR/EC) 40 mg PO DAILY Qty: 14 0RF albuterol sulfate 90 mcg/actuation HFA aerosol inhaler 2 inh inhalation Q6H PRN (Reason: shortness of breath or wheezing) docusate sodium 100 mg Capsule 100 mg PO DAILY PRN (Reason: Constipation) Qty: 30 0RF polyethylene glycol 3350 17 gram Powder In Packet 17 g PO BID PRN (Reason: constipation) Qty: 30 0RF mirtazapine 7.5 mg Tablet 7.5 mg PO BEDTIME Qty: 30 0RF albuterol sulfate 2.5 mg /3 mL (0.083 %) solution for nebulization 2.5 mg inhalation Q6H PRN (Reason: Shortness Of Breath Or Wheezing) sumatriptan succinate 25 mg tablet 25 mg PO QD-BID triamcinolone acetonide 55 mcg aerosol,spray 1 spray intranasal DAILY Discharge Orders: Discharge Order (Routine); Ordered 09/27/22 Ordered By: Inna Marion Diet: Advance to usual diet Activity on Discharge: As tolerated Stand Alone Forms: Patient Portal Discharge page Care Plan Goals: respiratory health Health Concerns: acute/chronic resp failure due to PNA + COPD exacerbation Plan of Treatment: refused SNF for short-term rehab, will d/c home with resumption of VNA services to include home PT prednisone: 40 mg daily x 2 days then 30 mg daily x 2 days then 20 mg daily x 2 days then 10 mg daily x 2 days antibiotics completed in the hospital for pnuemonia Please follow up with your primary care doctor within 1 week. Return to the hospital if you experience recurrent or worsening symptoms. Assessment: See Discharge Summary.
--- NOTE | 2022-09-27 10:32 | MHC.CM.PN ---
Addendum entered by Ayanna Mendez 09/27/22 16:07: [facility] HAS DENIED STR AUTH FOR PT NOTING SHE IS CLOSE TO BASELINE PT HAS BEEN INFORMED AND REPORTS SHE CANNOT GO UNTIL HER GETS OUT OF WORK AT 1900 HOURS HE WILL PROVIDE TRANSPORT AT THAT TIME HOME SERVICES WILL RESUME Addendum entered by Ayanna Mendez 09/27/22 11:23: PT NOW REPORTING SHE WANTS TO GO TO STR REFERRALS OUT/UPDATED, AWAITING RESPONSES Original Note: PT WILL DC HOME TODAY WITH RESUMPTION OF [facility] AND [facility] SERVICES [facility] HAS BEEN UPDATED VIA [employer] AND CONFIRMED THEY WILL RESUME SERVICES TOMORROW THEY ARE ALSO AWARE PT WILL NOW NEED PT SERVICES UPDATED ORDERS SENT PT WILL ARRANGE TRANSPORT
[2022-09-27 11:46] VITALS: PULSE 83; RESP 18; O2SAT 94
[2022-09-27 13:05] VITALS: PULSE 83
[2022-09-27 15:16] VITALS: PULSE 88; RESP 18; O2SAT 99
[2022-09-27 15:56] VITALS: BP 128/84; PULSE 91; RESP 20; TEMP 37; O2SAT 100
== END 2022-09-27 18:35 | disposition home or self-care (01) | DRG 720 ==
LOC: HO.ED 02:15 → HO.EDOVER 05:46 → HO.S3 17:20 → HO.EDOVER 01-11 07:43 → HO.S3 01-11 07:43
PROVIDERS: Internal Medicine; Admitting Provider Student in an Organized Health Care Education/Training Program; Emergency Provider Internal Medicine; PCP Family Medicine; Visit Provider Family Medicine
DX: A41.9 Sepsis, unspecified organism (principal); J96.21 Acute and chronic respiratory failure with hypoxia; J18.9 Pneumonia, unspecified organism; J44.1 Chronic obstructive pulmonary disease with (acute) exacerbation; J44.0 Chronic obstructive pulmonary disease with (acute) lower respiratory infection; F39 Unspecified mood [affective] disorder; D64.9 Anemia, unspecified; Z71.6 Tobacco abuse counseling; K59.00 Constipation, unspecified; F17.210 Nicotine dependence, cigarettes, uncomplicated; Z20.822 Contact with and (suspected) exposure to COVID-19; Z99.81 Dependence on supplemental oxygen; Z79.84 Long term (current) use of oral hypoglycemic drugs; Z79.899 Other long term (current) drug therapy
CPT/HCPCS: 36415; 71045; 80048; 83605; 83735; 83880; 84145; 84484; 85025; 85027; 87040; 87502; 87635; 93005; 94640; 96361; 96365; 96366; 96367; 96368; 96372; 96375; 96376; 97116; 97162; 99221; 99285; J0456; J0696; J1650; J2270; J2405; J2920; J2930; J3475

== ENCOUNTER 2022-11-16 05:54 | Inpatient (IN) | payer OTHER, SELFPAY ==
[2022-11-16] VITALS (13 sets, daily range): BP systolic 97–142; BP diastolic 53–80; PULSE 91–120; RESP 20–92; TEMP 36.8–37.6; O2SAT 90–99; BMI 45.7
--- NOTE | 2022-11-16 | ECG_ITS ---
Test Reason : SOB Blood Pressure : / mmHG Vent. Rate : 124 BPM Atrial Rate : 124 BPM P-R Int : 128 ms QRS Dur : 084 ms QT Int : 312 ms P-R-T Axes : 039 036 021 degrees QTc Int : 448 ms Sinus tachycardia Possible Left atrial enlargement Nonspecific ST abnormality Abnormal ECG When compared with ECG of 21-SEP-2022 01:40, No significant change was found Referred By: Generic ED Physician Electronically Signed By:FRANKIE NIXON MD
--- NOTE | ~2022-11-16 | XR_ITS ---
EXAMINATION: XR CHEST CLINICAL INFORMATION: 09/21/2022 COMPARISON: None available. TECHNIQUE: 2 views of the chest were obtained. FINDINGS: Heart and mediastinum within normal limits. Bilateral patchy pulmonary opacities are more prominent than on 09/21/2022 but possibly influenced by low lung volumes on the current examination. No effusions. XR/XR chest 2V IMPRESSION: Patchy bilateral pulmonary opacities. Appearance most favors multifocal pulmonary opacities/pneumonia rather than vascular congestion. Correlate clinically.
--- NOTE | ~2022-11-16 | XR_ITS ---
EXAMINATION: XR CHEST CLINICAL INFORMATION: Follow-up pneumonia COMPARISON: 11/18/2022 TECHNIQUE: 2 views of the chest were obtained. FINDINGS: Seen previously patchy airspace disease has been resolved. There are mild increased interstitial markings XR/XR chest 2V IMPRESSION: Continued improvement of airspace disease with residual prominence of interstitial markings and right hilum
--- NOTE | ~2022-11-16 | XR_ITS ---
EXAMINATION: XR CHEST CLINICAL INFORMATION: Short of breath COMPARISON: 11/16/2022 TECHNIQUE: Frontal view of the chest was obtained. FINDINGS: Lung volumes are low. Multifocal airspace opacities are seen bilaterally. This is increased from prior. No pleural effusion or pneumothorax. The cardiomediastinal silhouette is unchanged. XR/XR chest 1V IMPRESSION: Increased multifocal bilateral airspace opacities. This could be infectious or inflammatory.
--- NOTE | ~2022-11-16 | CT_ITS ---
EXAMINATION: CT ANGIOGRAM OF THE CHEST WITH AND WITHOUT CONTRAST (CT PULMONARY ANGIOGRAM FOR PE) CLINICAL INFORMATION: Reason for Exam worsening shortness of breath COMPARISON: CT chest without contrast from 08/11/2022 TECHNIQUE: Prior to contrast administration, noncontrast localization images were obtained. Subsequently, multidetector volumetric imaging was performed from the thoracic inlet to below the diaphragms following the administration of 80 mL Omnipaque 350 intravenous contrast. No contrast reaction reported Sagittal, coronal, and MIP oblique sagittal reformatted images were obtained on the CT workstation, uploaded to PACS, and reviewed. This CT examination was performed using dose optimization techniques as appropriate, variously including the following: *Automated exposure control *Adjustment of mA and/or kV according to patient size (this includes techniques or standardized protocols for targeted exams where dose is matched to indication/reason for exam; i.e. extremities or head) *Use of iterative reconstruction technique Total exam dose-length product 412 mGy-cm FINDINGS: QUALITY OF STUDY/CONTRAST BOLUS: Satisfactory. PULMONARY ARTERIES: No large central or segmental pulmonary emboli. Limited evaluation for subsegmental pulmonary embolus secondary to respiratory motion. Main pulmonary artery is not enlarged. THORACIC AORTA: No aneurysm. LUNG/PLEURA: Respiratory motion artifact limits evaluation. Worsening patchy radiopacities throughout the bilateral lung pena. Central airways are patent. No pneumothorax. MEDIASTINUM: Heart is mildly enlarged. No pericardial effusion. No coronary artery calcifications. A few mildly enlarged lymph nodes are noted the largest measuring up to 1.1 cm in the periaortic region. Visualized portions of the thyroid are unremarkable. No evidence of septal bowing or right heart strain. CHEST WALL/AXILLA: No axillary or internal mammary lymphadenopathy. OSSEOUS STRUCTURES: Degenerative changes of the thoracolumbar spine. UPPER ABDOMEN: Gallbladder surgically absent. Small hiatal hernia. No reflux of contrast into the hepatic veins to suggest elevated right heart pressures. CT/CT angio chest PE protocol IMPRESSION: 1. No large central or segmental pulmonary emboli. Limited evaluation for subsegmental pulmonary embolus secondary to respiratory motion. 2. Respiratory motion artifact limits evaluation of the bilateral lung pena. Worsening patchy radiopacities throughout the bilateral lung pena. 3. A few mildly enlarged lymph nodes are noted the largest measuring up to 1.1 cm in the periaortic region. 4. Gallbladder surgically absent. 5. Small hiatal hernia.
[2022-11-16 06:28] LABS: MANUAL DIFF FLAG NO
[2022-11-16 06:34] LABS: Basophils Absolute Auto 0.1 X10*3/uL (0.0-0.2); Basophils Percent Auto 0.6 % (0-2); Eosinophils Absolute Auto 0.6 X10*3/uL (0.0-0.4); Eosinophils Percent Auto 3.3 % (0-4); Hematocrit 37.3 % (37.0-47.0); Hemoglobin 11.9 g/dl (12.0-16.0); Imm Gran Abs Auto 0.08 X10*3/uL (0.00-0.03); Imm Gran Pct Auto 0.4 % (0.0-0.4); Lymphocytes Absolute Auto 2.4 X10*3/uL (1.2-4.9); Mean Corpuscular HGB Conc 31.9 g/dl (31.0-35.0); Mean Corpuscular Hemoglobin 26.4 pg (27.0-33.0); Mean Corpuscular Volume 82.9 fL (80.0-98.0); Monocytes Absolute Auto 1.2 X10*3/uL (0.1-1.2); Monocytes Percent Auto 6.6 % (2-11); Neutrophils Absolute Auto 13.8 x10*3/uL (2.0-8.3); Neutrophils Percent Auto 76.1 % (45-73); Platelet Count 332 X10*3/uL (160-400); Red Cell Distribution Width 17.5 % (11.0-16.0); White Blood Count 18.1 X10*3/uL (4.8-10.8)
[2022-11-16 06:45] LABS: Alanine Aminotransferase 22 U/L (0-31); Albumin Level 3.6 g/dL (3.5-5.0); Alkaline Phosphatase 86 U/L (39-117); Anion Gap 12 (12-20); Aspartate Amino Transferase 23 U/L (5-31); Bilirubin Total 0.6 mg/dL (0.0-1.0); Blood Urea Nitrogen 4 mg/dL (9-16); Calcium 9.2 mg/dL (8.4-10.2); Carbon Dioxide 28 mmol/L (22-29); Chloride 102 mmol/L (96-108); Creatinine Clr Calc Pharmacy 101.3; Estimated Glomerular Filt Rate > 60; Glucose Random 123 mg/dL (60-115); Potassium 3.8 mmol/L (3.3-5.1); Sodium 138 mmol/L (135-145); Total Protein 6.7 g/dL (6.5-8.0)
--- NOTE | 2022-11-16 06:53 | ED.ASTHMA ---
HPI - Asthma General Chief Complaint: Asthma Stated Complaint: sob Time Seen by Provider: 11/16/22 06:24 Source: patient Mode of arrival: ambulatory Limitations: no limitations History of Present Illness HPI Narrative: Patient is a 42-year-old female with history of asthma, acute and chronic respiratory failure, depression/anxiety, disc herniation, migraines presenting to the emergency department with complaint of fever to 101 yesterday and shortness of breath. States she wears O2 @ baseline with ambulation, has required O2 continuously. Used her nebulizer at home without relief. Has had cough productive of yellow sputum as well as sore throat and nausea. Also complains of generalized body aches. Denies any vomiting, diarrhea, constipation. Denies known sick contacts. MD complaint: shortness of breath Onset (ago): day(s) Severity: severe Context: none known Associated symptoms: productive cough Treatments Prior to Arrival: inhaled bronchodilator Related Data Home Medications Medication Instructions Recorded Confirmed albuterol sulfate 2.5 mg/3 mL 1 inhalation Q6H PRN wheezing 11/16/22 (0.083 %) solution for nebulization albuterol sulfate 90 mcg/actuation 2 puff inhalation Q6H 11/16/22 aerosol inhaler (Ventolin HFA) budesonide-formoterol HFA 160 2 puff inhalation BID 11/16/22 mcg-4.5 mcg/actuation aerosol inhaler (Symbicort) bupropion HCl 300 mg 24 hr tablet, 300 mg PO QAM 11/16/22 extended release (Wellbutrin XL) cyanocobalamin (vitamin B-12) 1,000 mcg sublingual DAILY 11/16/22 1,000 mcg sublingual tablet dicyclomine 10 mg capsule 20 mg PO QID 11/16/22 gabapentin 100 mg capsule 100 mg PO BID PRN Pain 11/16/22 gabapentin 400 mg capsule 800 mg PO BEDTIME 11/16/22 hydroxyzine pamoate 50 mg capsule mg PO 11/16/22 mirtazapine 15 mg tablet 15 mg PO BEDTIME 11/16/22 montelukast 10 mg tablet 10 mg PO DAILY 11/16/22 nicotine (polacrilex) 4 mg gum 4 mg PO Q2H 11/16/22 nicotine 21 mg/24 hr daily 1 patch topical DAILY 11/16/22 transdermal patch pantoprazole 40 mg tablet,delayed 40 mg PO BID 11/16/22 release prazosin 2 mg capsule 2 mg PO DAILY 11/16/22 prazosin 5 mg capsule (Minipress) 5 mg PO BEDTIME 11/16/22 riboflavin (vitamin B2) 100 mg 200 mg PO DAILY 11/16/22 tablet (Vitamin B-2) sumatriptan succinate 25 mg tablet 25 mg PO QD-BID migraine 11/16/22 triamcinolone acetonide 55 mcg 1 spray intranasal DAILY 11/16/22 nasal spray aerosol Allergies Allergy/AdvReac Type Severity Reaction Status Date / Time promethazine [From PHENERGAN] Allergy Unknown ITCHING Verified 07/13/22 17:36 codeine [CODEINE] AdvReac Unknown STOMACH Verified 07/13/22 17:36 UPSET morphine [MORPHINE] AdvReac Unknown MORE PAIN Verified 07/13/22 17:36 [facility] Past Medical History Medical History Asthma Depression Disc herniation Generalized anxiety disorder H. pylori infection Migraine Morbid obesity Recurrent major depression Sinus infection Surgical History History of Social History Social History Household Members: Spouse and Children Housing: Apartment Do you presently have visiting nurse or other home services: Yes Alcohol intake: never Patient Tobacco Use Status: Never used Tobacco Tobacco use type: Cigarette Cigarette Packs Per Day: 2 Cigarettes Per Day: 40.0 Smoked in Last 30 Days: Yes Second Hand Smoke Exposure: Yes Use of substances other than those prescribed or required for medical reasons: No Advance Directives: Yes Advance Directives on File: Yes Advance Directives Date on File: 05/12/22 Patient : No service: No Current occupational status: unemployed Physical Exam Vital Signs: Vital Signs: Last Vital Signs Temp 98.9 F 11/16/22 08:42 Pulse 105 H 11/16/22 08:42 Resp 26 H 11/16/22 08:42 BP 101/62 11/16/22 08:42 Pulse Ox 96 11/16/22 08:42 O2 Del Method Nasal Cannula 11/16/22 08:42 O2 Flow Rate 4 11/16/22 08:42 Oxygen Flow Rate 4 11/16/22 06:06 BMI result Body Mass Index 45.7 Course Course Course Narrative: X-ray/CT notable for . My interpretation is in agreement with the radiologist's interpretation. Low suspicion for/unlikely . *Considered admission if any of the DDX would qualify pt for admission *Consider CC *U/S-considered CT?, other tests considered Medications Administered Discontinued Medications Generic Name Dose Route Start Last Admin Trade Name Freq PRN Reason Stop Dose Admin Albuterol Sulfate 5 mg 11/16/22 06:54 11/16/22 07:30 Albuterol Sulfate (0.083%) 2.5 Mg/3 Ml Vial.Neb INHALE 11/16/22 06:55 5 mg ONCE ONE Administration Sodium Chloride 1,000 mls @ 999 mls/hr 11/16/22 07:00 11/16/22 08:37 Ns IV 11/16/22 08:00 Infused .Q1H1M KRYSTLE Infusion Piperacillin Sod/Tazobactam 50 mls @ 100 mls/hr 11/16/22 07:07 11/16/22 08:00 Sod 3.375 gm/ Sodium Chloride IV 11/16/22 07:36 Infused ONCE ONE Infusion Sodium Chloride 1,000 mls @ 999 mls/hr 11/16/22 07:15 11/16/22 09:26 Ns IV 11/16/22 08:15 Infused .Q1H1M KRYSTLE Infusion Sodium Chloride 1,000 mls @ 999 mls/hr 11/16/22 07:15 11/16/22 09:57 Ns IV 11/16/22 08:15 Infused .Q1H1M KRYSTLE Infusion Magnesium Sulfate 2 gm in 50 mls @ 25 mls/hr 11/16/22 07:49 11/16/22 08:19 Magnesium Sulfate/H2o IV 11/16/22 09:48 25 mls/hr ONCE ONE Administration Ketorolac Tromethamine 15 mg 11/16/22 06:54 11/16/22 07:16 Ketorolac Tromethamine 15 Mg/Ml Vial IVPUSH 11/16/22 06:55 15 mg ONCE ONE Administration Methylprednisolone Sodium Succinate 125 mg 11/16/22 06:58 11/16/22 07:16 Methylprednisolone Sod Succ 125 Mg/2 Ml Vial IVPUSH 11/16/22 06:59 125 mg ONCE ONE Administration Ondansetron HCl 4 mg 11/16/22 07:01 11/16/22 07:16 Ondansetron Hcl 4 Mg/2 Ml Vial IVPUSH 11/16/22 07:02 4 mg ONCE ONE Administration Medical Decision Making Medical Decision Making [facility] Narrative: 07:01 Patient is a 42-year-old female with history of asthma, acute and chronic respiratory failure, depression/anxiety, disc herniation, migraines presenting to the emergency department with complaint of fever to 101 yesterday and shortness of breath. On exam patient is awake, A+Ox3, tachypneic, tachycardic, hypoxic on 4lpm O2, afebrile, normal neurological exam without focal deficits, LS diminished throughout, abdomen soft and nontender. Given reported symptoms and physical exam findings, initial differential includes sepsis, pneumonia, asthma exacerbation. Less likely pneumothorax, CHF. Labs notable for leukocytosis with left shift. Plan: Blood cultures, lactic, VBG, BNP, CXR, albuterol, pain management, IV antibiotics and IV fluids ordered. Sepsis alert called. Adjusted ideal body weight per MD Calc is 160lbs, will order 30mg/kg fluids based on this for total bolus of 2182mLs. 09:08 Focused physical assessment completed. CXR shows bilateral opacities likely multifocal pneumonia. Leukocytosis with left shift. Normal lactate. [place] Text to Dr. Alexander who accepted admission for pneumonia. Differential Diagnosis Differential Diagnoses: The differential diagnosis associated with the presentation includes As per [facility]. Admission/Observation Consideration of admission/observation: Escalation of care including admission/observation considered Consult Healthcare Provider Management of the patient was discussed with: Hospitalist (Dr. Alexander) Lab Data [facility] Lab Attestation statement: I reviewed the patient's lab results. As per [facility]. 11/16/22 06:24 11/16/22 06:24 Labs: Lab Results 11/16/22 11/16/22 11/16/22 Range/Units 06:24 06:24 06:24 WBC 18.1 H (4.8-10.8) X10*3/uL RBC 4.50 (4.20-5.50) X10*6/uL Hgb 11.9 L (12.0-16.0) g/dl Hct 37.3 (37.0-47.0) % MCV 82.9 (80.0-98.0) fL MCH 26.4 L (27.0-33.0) pg MCHC 31.9 (31.0-35.0) g/dl RDW 17.5 H (11.0-16.0) % Plt Count 332 (160-400) X10*3/uL MPV 10.0 (9.4-12.3) fL Immature Gran % (Auto) 0.4 (0.0-0.4) % Neut % (Auto) 76.1 H (45-73) % Lymph % (Auto) 13.0 L (20-40) % [place] % (Auto) 6.6 (2-11) % Eos % (Auto) 3.3 (0-4) % Baso % (Auto) 0.6 (0-2) % Lymph # (Auto) 2.4 (1.2-4.9) X10*3/uL [place] # (Auto) 1.2 (0.1-1.2) X10*3/uL Eos # (Auto) 0.6 H (0.0-0.4) X10*3/uL Baso # (Auto) 0.1 (0.0-0.2) X10*3/uL Abs Immat Gran (auto) 0.08 H (0.00-0.03) X10*3/uL Absolute Neuts (auto) 13.8 H (2.0-8.3) x10*3/uL Absolute Nucleated RBC 0.000 (0.0-0.012) X10*3/uL Nucleated RBC % (auto) 0.0 (0.0-0.2) /100WBC VBG pH (7.32-7.43) VBG pCO2 mmHg VBG pO2 mmHg VBG HCO3 (22-26) mmol/L VBG O2 Saturation % VBG Base Excess mmol/L Sodium 138 (135-145) mmol/L Potassium 3.8 D (3.3-5.1) mmol/L Chloride 102 (96-108) mmol/L Carbon Dioxide 28 (22-29) mmol/L Anion Gap 12 (12-20) BUN 4 L (9-16) mg/dL Creatinine 0.82 (0.5-1.4) mg/dL Estim Creat Clear Calc 101.3 Estimated GFR > 60 Random Glucose 123 H (60-115) mg/dL Lactic Acid (0.5-2.0) mmol/L Calcium 9.2 (8.4-10.2) mg/dL Total Bilirubin 0.6 (0.0-1.0) mg/dL AST 23 (5-31) U/L ALT 22 (0-31) U/L Alkaline Phosphatase 86 (39-117) U/L Troponin I High Sens 3.0 (<3.5-17.0) ng/L B-Natriuretic Peptide (<100) pg/mL Total Protein 6.7 (6.5-8.0) g/dL Albumin 3.6 (3.5-5.0) g/dL Urine Color Urine Appearance Urine pH (5.0-9.0) Ur Specific [place] (1.005-1.025) Urine Protein (Neg-Trace) mg/dL Urine Glucose (UA) (Negative) mg/dL Urine Ketones (Negative) mg/dL Urine Blood (Negative) Urine Nitrite (Negative) Ur Leukocyte Esterase (Negative) COVID-19 ([facility]) (Negative) COVID-19 Clin Com Influenza Type A ([facility]) (Negative) Influenza Type B ([facility]) (Negative) Influenza A & B Note S. pyogenes GrpA [facility]ISHAN (Negative) 11/16/22 11/16/22 11/16/22 Range/Units 07:23 07: 07:23 WBC (4.8-10.8) X10*3/uL RBC (4.20-5.50) X10*6/uL Hgb (12.0-16.0) g/dl Hct (37.0-47.0) % MCV (80.0-98.0) fL MCH (27.0-33.0) pg MCHC (31.0-35.0) g/dl RDW (11.0-16.0) % Plt Count (160-400) X10*3/uL MPV (9.4-12.3) fL Immature Gran % (Auto) (0.0-0.4) % Neut % (Auto) (45-73) % Lymph % (Auto) (20-40) % [place] % (Auto) (2-11) % Eos % (Auto) (0-4) % Baso % (Auto) (0-2) % Lymph # (Auto) (1.2-4.9) X10*3/uL [place] # (Auto) (0.1-1.2) X10*3/uL Eos # (Auto) (0.0-0.4) X10*3/uL Baso # (Auto) (0.0-0.2) X10*3/uL Abs Immat Gran (auto) (0.00-0.03) X10*3/uL Absolute Neuts (auto) (2.0-8.3) x10*3/uL Absolute Nucleated RBC (0.0-0.012) X10*3/uL Nucleated RBC % (auto) (0.0-0.2) /100WBC VBG pH (7.32-7.43) VBG pCO2 mmHg VBG pO2 mmHg VBG HCO3 (22-26) mmol/L VBG O2 Saturation % VBG Base Excess mmol/L Sodium (135-145) mmol/L Potassium (3.3-5.1) mmol/L Chloride (96-108) mmol/L Carbon Dioxide (22-29) mmol/L Anion Gap (12-20) BUN (9-16) mg/dL Creatinine (0.5-1.4) mg/dL Estim Creat Clear Calc Estimated GFR Random Glucose (60-115) mg/dL Lactic Acid 0.9 (0.5-2.0) mmol/L Calcium (8.4-10.2) mg/dL Total Bilirubin (0.0-1.0) mg/dL AST (5-31) U/L ALT (0-31) U/L Alkaline Phosphatase (39-117) U/L Troponin I High Sens (<3.5-17.0) ng/L B-Natriuretic Peptide (<100) pg/mL Total Protein (6.5-8.0) g/dL Albumin (3.5-5.0) g/dL Urine Color Urine Appearance Urine pH (5.0-9.0) Ur Specific [place] (1.005-1.025) Urine Protein (Neg-Trace) mg/dL Urine Glucose (UA) (Negative) mg/dL Urine Ketones (Negative) mg/dL Urine Blood (Negative) Urine Nitrite (Negative) Ur Leukocyte Esterase (Negative) COVID-19 ([facility]) Negative (Negative) COVID-19 Clin Com See Note Influenza Type A ([facility]) Negative (Negative) Influenza Type B ([facility]) Negative (Negative) Influenza A & B Note See Note S. pyogenes GrpA [facility]AN (Negative) 11/16/22 11/16/22 11/16/22 Range/Units 07:23 07:23 07:24 WBC (4.8-10.8) X10*3/uL RBC (4.20-5.50) X10*6/uL Hgb (12.0-16.0) g/dl Hct (37.0-47.0) % MCV (80.0-98.0) fL MCH (27.0-33.0) pg MCHC (31.0-35.0) g/dl RDW (11.0-16.0) % Plt Count (160-400) X10*3/uL MPV (9.4-12.3) fL Immature Gran % (Auto) (0.0-0.4) % Neut % (Auto) (45-73) % Lymph % (Auto) (20-40) % [place] % (Auto) (2-11) % Eos % (Auto) (0-4) % Baso % (Auto) (0-2) % Lymph # (Auto) (1.2-4.9) X10*3/uL [place] # (Auto) (0.1-1.2) X10*3/uL Eos # (Auto) (0.0-0.4) X10*3/uL Baso # (Auto) (0.0-0.2) X10*3/uL Abs Immat Gran (auto) (0.00-0.03) X10*3/uL Absolute Neuts (auto) (2.0-8.3) x10*3/uL Absolute Nucleated RBC (0.0-0.012) X10*3/uL Nucleated RBC % (auto) (0.0-0.2) /100WBC VBG pH 7.50 H (7.32-7.43) VBG pCO2 39 mmHg VBG pO2 78 mmHg VBG HCO3 31 H (22-26) mmol/L VBG O2 Saturation 97.0 % VBG Base Excess 7.5 mmol/L Sodium (135-145) mmol/L Potassium (3.3-5.1) mmol/L Chloride (96-108) mmol/L Carbon Dioxide (22-29) mmol/L Anion Gap (12-20) BUN (9-16) mg/dL Creatinine (0.5-1.4) mg/dL Estim Creat Clear Calc Estimated GFR Random Glucose (60-115) mg/dL Lactic Acid (0.5-2.0) mmol/L Calcium (8.4-10.2) mg/dL Total Bilirubin (0.0-1.0) mg/dL AST (5-31) U/L ALT (0-31) U/L Alkaline Phosphatase (39-117) U/L Troponin I High Sens (<3.5-17.0) ng/L B-Natriuretic Peptide < 10 (<100) pg/mL Total Protein (6.5-8.0) g/dL Albumin (3.5-5.0) g/dL Urine Color Urine Appearance Urine pH (5.0-9.0) Ur Specific [place] (1.005-1.025) Urine Protein (Neg-Trace) mg/dL Urine Glucose (UA) (Negative) mg/dL Urine Ketones (Negative) mg/dL Urine Blood (Negative) Urine Nitrite (Negative) Ur Leukocyte Esterase (Negative) COVID-19 ([facility]) (Negative) COVID-19 Clin Com Influenza Type A ([facility]) (Negative) Influenza Type B ([facility]) (Negative) Influenza A & B Note S. pyogenes GrpA [facility] Negative (Negative) 11/16/22 Range/Units 08:18 WBC (4.8-10.8) X10*3/uL RBC (4.20-5.50) X10*6/uL Hgb (12.0-16.0) g/dl Hct (37.0-47.0) % MCV (80.0-98.0) fL MCH (27.0-33.0) pg MCHC (31.0-35.0) g/dl RDW (11.0-16.0) % Plt Count (160-400) X10*3/uL MPV (9.4-12.3) fL Immature Gran % (Auto) (0.0-0.4) % Neut % (Auto) (45-73) % Lymph % (Auto) (20-40) % [place] % (Auto) (2-11) % Eos % (Auto) (0-4) % Baso % (Auto) (0-2) % Lymph # (Auto) (1.2-4.9) X10*3/uL [place] # (Auto) (0.1-1.2) X10*3/uL Eos # (Auto) (0.0-0.4) X10*3/uL Baso # (Auto) (0.0-0.2) X10*3/uL Abs Immat Gran (auto) (0.00-0.03) X10*3/uL Absolute Neuts (auto) (2.0-8.3) x10*3/uL Absolute Nucleated RBC (0.0-0.012) X10*3/uL Nucleated RBC % (auto) (0.0-0.2) /100WBC VBG pH (7.32-7.43) VBG pCO2 mmHg VBG pO2 mmHg VBG HCO3 (22-26) mmol/L VBG O2 Saturation % VBG Base Excess mmol/L Sodium (135-145) mmol/L Potassium (3.3-5.1) mmol/L Chloride (96-108) mmol/L Carbon Dioxide (22-29) mmol/L Anion Gap (12-20) BUN (9-16) mg/dL Creatinine (0.5-1.4) mg/dL Estim Creat Clear Calc Estimated GFR Random Glucose (60-115) mg/dL Lactic Acid (0.5-2.0) mmol/L Calcium (8.4-10.2) mg/dL Total Bilirubin (0.0-1.0) mg/dL AST (5-31) U/L ALT (0-31) U/L Alkaline Phosphatase (39-117) U/L Troponin I High Sens (<3.5-17.0) ng/L B-Natriuretic Peptide (<100) pg/mL Total Protein (6.5-8.0) g/dL Albumin (3.5-5.0) g/dL Urine Color Yellow Urine Appearance Clear Urine pH 7.0 (5.0-9.0) Ur Specific [place] 1.015 (1.005-1.025) Urine Protein Trace (Neg-Trace) mg/dL Urine Glucose (UA) Negative (Negative) mg/dL Urine Ketones Negative (Negative) mg/dL Urine Blood Negative (Negative) Urine Nitrite Negative (Negative) Ur Leukocyte Esterase Negative (Negative) COVID-19 ([facility]) (Negative) COVID-19 Clin Com Influenza Type A ([facility]) (Negative) Influenza Type B ([facility]) (Negative) Influenza A & B Note S. pyogenes GrpA [facility] (Negative) Independent Interpretation I performed an independent interpretation of an: Plain X-Ray Interpretation: bilateral opacities consistent with multifocal pneumonia Radiology Impression Discussion of test interpretation with radiology: I have reviewed the radiologist's reading. Radiologist Impression: FINDINGS: Heart and mediastinum within normal limits. Bilateral patchy pulmonary opacities are more prominent than on 09/21/2022 but possibly influenced by low lung volumes on the current examination. No effusions. XR/XR chest 2V IMPRESSION: Patchy bilateral pulmonary opacities. Appearance most favors multifocal pulmonary opacities/pneumonia rather than vascular congestion. Correlate clinically. External Record Review External record reviewed: Inpatient record, Office record and Outpatient record Prescription Management I considered prescription management with: Antibiotic Chronic Conditions Patient?s care impacted by: Other (asthma, chronic respiratory failure) Discharge Plan Discharge Clinical Impression: Multifocal pneumonia Patient Disposition: Admitted As Inpatient
[2022-11-16] MEDS: ondansetron HCL 4 MG/2 ML VIAL IVPUSH (07:16)
[2022-11-16] MEDS: Ketorolac Tromethamine 15 MG/ML VIAL IVPUSH (07:16)
[2022-11-16] MEDS: methylPREDNISolone Sod Succ 125 MG/2 ML VIAL IVPUSH (07:16)
[2022-11-16] MEDS: 0.9 % Sodium Chloride 1,000 ML 999 ML IV ×3 (07:17→09:22)
[2022-11-16] MEDS: Piperacillin Sodium/Tazobactam 3.375 GM in 0.9 % Sodium Chloride 50 ML IV (07:27)
[2022-11-16] MEDS: Albuterol Sulfate (0.083%) 2.5 MG/3 ML VIAL.NEB 5 MG INHALE (07:30)
[2022-11-16 07:32] LABS: VBG Base Excess 7.5 mmol/L; VBG HCO3 31 mmol/L (22-26); VBG pCO2 39 mmHg; VBG pO2 78 mmHg
[2022-11-16 07:32] LABS: Venous Blood Gas Refer to POC result
[2022-11-16 07:39] LABS: Lactic Acid 0.9 mmol/L (0.5-2.0)
[2022-11-16 07:48] LABS: COVID-19 Test Negative (Negative); IDNOW Serial# 08D9AD1C; IDNOW Serial# 9DB6401D; IDNOW Serial# BCCEAD1C; Strep A Nucleic Acid Negative (Negative)
[2022-11-16 07:49] LABS: Influenza A Negative (Negative); Influenza B2 Negative (Negative)
[2022-11-16 07:55] LABS: B Type Natriuretic Peptide < 10 pg/mL (<100)
[2022-11-16] MEDS: Magnesium Sulfate/H2O 2 GM/50 ML PIGGYBACK IV (08:19)
[2022-11-16 08:27] LABS: Appearance Urine Clear; Color Urine Yellow; Glucose Urine UA Negative (Negative); Leukocyte Esterase Urine Negative (Negative); Nitrite Urine Negative (Negative); Specific Gravity - Urine 1.015 (1.005-1.025); Urine Blood Negative (Negative); Urine Ketones Negative (Negative); Urine Protein Trace mg/dL (Neg-Trace)
--- NOTE | 2022-11-16 10:42 | PHA.MEDREC ---
Pharmacy Consult ? Medication Reconciliation Pharmacy has completed the medication reconciliation. Spoke to patient's home care nurse to confirm meds ([facility] - [phone]).
--- NOTE | 2022-11-16 12:26 | PM.IMHP ---
History of Present Illness Date of Service: 11/16/22 Chief Complaint: shortness of breath 42-year-old female with history of asthma, acute and chronic respiratory failure, depression/anxiety, disc herniation, migraines presenting to the emergency department with complaint of fever to 101 yesterday and shortness of breath.? States she wears O2 @ baseline with ambulation, has required O2 continuously.? Used her nebulizer at home without relief.? Has had cough productive of yellow sputum as well as sore throat and nausea.? Also complains of generalized body aches.? Denies any vomiting, diarrhea, constipation.? Denies known sick contacts. Since her initial contraction of COVID in March 2022, patient has had monthly admissions for asthma exacerbation. This presentation is similar to past. She responded well to 125 of Solu-Medrol along with DuoNeb therapy Review of Systems Review of Systems: denies chest pain Admit shortness of breath that is improved since admission Denies nausea vomiting diarrhea admits fever chills PMFSH Medical History Asthma Depression Disc herniation Generalized anxiety disorder H. pylori infection Migraine Morbid obesity Recurrent major depression Sinus infection Surgical History History of Social History Household Members: Spouse and Children Housing: Apartment Do you presently have visiting nurse or other home services: Yes Alcohol intake: never Patient Tobacco Use Status: Never used Tobacco Tobacco use type: Cigarette Cigarette Packs Per Day: 2 Cigarettes Per Day: 40.0 Smoked in Last 30 Days: Yes Second Hand Smoke Exposure: Yes Use of substances other than those prescribed or required for medical reasons: No Advance Directives: Yes Advance Directives on File: Yes Advance Directives Date on File: 05/12/22 Patient : No service: No Current occupational status: unemployed Meds Allergies Allergy/AdvReac Type Severity Reaction Status Date / Time promethazine [From PHENERGAN] Allergy Unknown ITCHING Verified 07/13/22 17:36 codeine [CODEINE] AdvReac Unknown STOMACH Verified 07/13/22 17:36 UPSET morphine [MORPHINE] AdvReac Unknown MORE PAIN Verified 07/13/22 17:36 Active Medications: Current Medications Acetaminophen (Acetaminophen 325 Mg Tablet) 650 mg PO Q6H PRN PRN Reason: Pain, Mild (Pain Scale 1-3) Albuterol Sulfate (Albuterol Sulfate (0.083%) 2.5 Mg/3 Ml Vial.Neb) 2.5 mg INHALE Q6H PRN PRN Reason: wheezing Albuterol Sulfate (Albuterol Sulfate 90 Mcg 8 Gm Inhaler) 2 puff INHALE Q6H [facility] Bupropion HCl (Bupropion Hcl Xl 300 Mg Tab.Er.24h) 300 mg PO DAILY [facility] Albuterol Sulfate 2.5 mg/ (Albuterol/Ipratropium 3 ml) 0 mg INHALE Q4H [facility] Enoxaparin Sodium (Enoxaparin Sodium 40 Mg/0.4 Ml Syringe) 40 mg SUBCUT Q24H [facility] Hydroxyzine HCl (Hydroxyzine Hcl 50 Mg Tablet) 50 mg PO QID PRN PRN Reason: Anxiety Ceftriaxone Sodium 1 gm/ (Sodium Chloride) 50 mls @ 100 mls/hr IV Q24H [facility] Azithromycin 500 mg/ Sodium (Chloride) 250 mls @ 125 mls/hr IV DAILY ONE Stop: 11/16/22 14:17 Methylprednisolone Sodium Succinate (Methylprednisolone Sod Succ 125 Mg/2 Ml Vial) 60 mg IVPUSH Q6H [facility] Mirtazapine (Mirtazapine 15 Mg Tablet) 15 mg PO BEDTIME [facility] Montelukast Sodium (Montelukast Sodium 10 Mg Tablet) 10 mg PO BEDTIME [facility] Nicotine (Nicotine 21 Mg Patch.Td24) mg TRANSDERMA DAILY [facility] Non-Formulary Medication (Meloxicam) 15 mg PO DAILY PRN PRN Reason: Pain Non-Formulary Medication (Pantoprazole) 40 mg PO BID [facility] Non-Formulary Medication (Budesonide-Formoterol [Symbicort]) 2 puff INHALE BID [facility] Ondansetron HCl (Ondansetron Hcl 4 Mg/2 Ml Vial) 4 mg IVPUSH Q8H PRN PRN Reason: Nausea and Vomiting Paroxetine HCl (Paroxetine Hcl 40 Mg Tablet) 40 mg PO BEDTIME [facility] Pharmacy Consult (Consult Rx Perform Med Rec) 1 each MISCELLANE ONCE PRN PRN Reason: Consult order Prazosin HCl (Prazosin Hcl 1 Mg Capsule) 2 mg PO BEDTIME [facility]; Protocol Prazosin HCl (Prazosin Hcl 5 Mg Capsule) 5 mg PO BEDTIME [facility]; Protocol Sodium Chloride (0.9 % Sodium Chloride Flush 3 Ml Syringe) 3 ml IVFLUSH QSHIFT [facility] Sumatriptan Succinate (Sumatriptan Succinate 25 Mg Tablet) 25 mg PO DAILY PRN PRN Reason: Migraine Headache Home Medications Medication Instructions Recorded Confirmed Last Taken Type acetaminophen 325 mg tablet 650 mg PO Q6H PRN Pain 11/16/22 11/16/22 Unknown History (Tylenol) albuterol sulfate 2.5 mg/3 mL 2.5 mg inhalation Q6H PRN wheezing 11/16/22 11/16/22 Unknown History (0.083 %) solution for nebulization albuterol sulfate 90 mcg/actuation 2 puff inhalation Q6H 11/16/22 11/16/22 Unknown History aerosol inhaler (Ventolin HFA) budesonide-formoterol HFA 160 2 puff inhalation BID 11/16/22 11/16/22 11/15/22 History mcg-4.5 mcg/actuation aerosol inhaler (Symbicort) bupropion HCl 300 mg 24 hr tablet, 300 mg PO DAILY 11/16/22 11/16/22 11/15/22 History extended release (Wellbutrin XL) cyanocobalamin (vitamin B-12) 1,000 mcg sublingual DAILY 11/16/22 11/16/22 11/15/22 History 1,000 mcg sublingual tablet dicyclomine 10 mg capsule 20 mg PO Q8H PRN Pain 11/16/22 11/16/22 Unknown History gabapentin 100 mg capsule 100 mg PO BID PRN Pain 11/16/22 11/16/22 Unknown History gabapentin 400 mg capsule 800 mg PO BEDTIME 11/16/22 11/16/22 11/15/22 History hydroxyzine pamoate 50 mg capsule 50 mg PO QID PRN Anxiety 11/16/22 11/16/22 Unknown History meloxicam 15 mg tablet 15 mg PO DAILY PRN Pain 11/16/22 11/16/22 Unknown History mirtazapine 15 mg tablet 15 mg PO BEDTIME 11/16/22 11/16/22 11/15/22 History montelukast 10 mg tablet 10 mg PO BEDTIME 11/16/22 11/16/22 11/15/22 History nicotine (polacrilex) 4 mg gum 4 mg PO Q2H PRN Nicotine Cravings 11/16/22 11/16/22 Unknown History nicotine 21 mg/24 hr daily 1 patch topical DAILY 11/16/22 11/16/22 11/15/22 History transdermal patch ondansetron HCl 4 mg tablet 4 mg PO Q8H PRN nausea/vomiting 11/16/22 11/16/22 Unknown History pantoprazole 40 mg tablet,delayed 40 mg PO BID 11/16/22 11/16/22 11/15/22 History release paroxetine HCl 40 mg tablet 40 mg PO BEDTIME 11/16/22 11/16/22 11/15/22 History polyethylene glycol 3350 17 gram 17 g PO DAILY PRN Constipation 11/16/22 11/16/22 Unknown History oral powder packet prazosin 2 mg capsule 2 mg PO BEDTIME 11/16/22 11/16/22 11/15/22 History prazosin 5 mg capsule (Minipress) 5 mg PO BEDTIME 11/16/22 11/16/22 11/15/22 History riboflavin (vitamin B2) 100 mg 200 mg PO Q12H 11/16/22 11/16/22 11/15/22 History tablet (Vitamin B-2) sumatriptan succinate 25 mg tablet 25 mg PO DAILY PRN Migraine 11/16/22 11/16/22 Unknown History Headache triamcinolone acetonide 55 mcg 1 spray intranasal DAILY 11/16/22 11/16/22 11/15/22 History nasal spray aerosol Physical Exam Vital Signs and Narrative: Vital Signs: Last Vital Signs Temp 98.3 F 11/16/22 10:12 Pulse 91 11/16/22 12:11 Resp 32 H 11/16/22 12:11 BP 102/58 L 11/16/22 12:11 Pulse Ox 96 11/16/22 12:11 O2 Del Method Nasal Cannula 11/16/22 10:50 O2 Flow Rate 4 11/16/22 10:50 Oxygen Flow Rate 4 11/16/22 06:06 BMI result Body Mass Index 45.7 Const: Other: awake alert and oriented. Resting comfortably in bed able to speak in full sentences Resp: Other: diminished throughout with scattered expiratory wheeze Cardio: Other: no S4; positive S1-S2; no S3 murmurs rubs or gallops GI: Other: obese nontender nondistended. Normoacti Neuro: Other: cranial nerves 2-12 grossly intact as tested motor is 5/5 all extremities. Sensation is intact. Cognition appropria Extrem: Other: no edema bilaterally Results Labs 11/16/22 06:24 11/16/22 06:24 Labs: Laboratory Results - last 24 hr 11/16/22 11/16/22 11/16/22 06:24 06:24 07:23 MCV 82.9 MCH 26.4 L MCHC 31.9 RDW 17.5 H Plt Count 332 MPV 10.0 Immature Gran % (Auto) 0.4 Neut % (Auto) 76.1 H Lymph % (Auto) 13.0 L [place] % (Auto) 6.6 Eos % (Auto) 3.3 Baso % (Auto) 0.6 Lymph # (Auto) 2.4 [place] # (Auto) 1.2 Eos # (Auto) 0.6 H Baso # (Auto) 0.1 Abs Immat Gran (auto) 0.08 H Absolute Neuts (auto) 13.8 H Absolute Nucleated RBC 0.000 Nucleated RBC % (auto) 0.0 VBG pH VBG pCO2 VBG pO2 VBG HCO3 VBG O2 Saturation VBG Base Excess Anion Gap 12 Estim Creat Clear Calc 101.3 Estimated GFR > 60 Random Glucose 123 H Lactic Acid 0.9 Calcium 9.2 Total Bilirubin 0.6 AST 23 ALT 22 Alkaline Phosphatase 86 B-Natriuretic Peptide Total Protein 6.7 Albumin 3.6 Urine Color Urine Appearance Urine pH Ur Specific [place] Urine Protein Urine Glucose (UA) Urine Ketones Urine Blood Urine Nitrite Ur Leukocyte Esterase COVID-19 ([facility]) COVID-19 Clin Com Influenza Type A ([facility]) Influenza Type B ([facility]) Influenza A & B Note S. pyogenes GrpA [facility] 11/16/22 11/16/22 11/16/22 07:23 07:23 07:23 MCV MCH MCHC RDW Plt Count MPV Immature Gran % (Auto) Neut % (Auto) Lymph % (Auto) [place] % (Auto) Eos % (Auto) Baso % (Auto) Lymph # (Auto) [place] # (Auto) Eos # (Auto) Baso # (Auto) Abs Immat Gran (auto) Absolute Neuts (auto) Absolute Nucleated RBC Nucleated RBC % (auto) VBG pH VBG pCO2 VBG pO2 VBG HCO3 VBG O2 Saturation VBG Base Excess Anion Gap Estim Creat Clear Calc Estimated GFR Random Glucose Lactic Acid Calcium Total Bilirubin AST ALT Alkaline Phosphatase B-Natriuretic Peptide Total Protein Albumin Urine Color Urine Appearance Urine pH Ur Specific [place] Urine Protein Urine Glucose (UA) Urine Ketones Urine Blood Urine Nitrite Ur Leukocyte Esterase COVID-19 ([facility]) Negative COVID-19 Clin Com See Note Influenza Type A ([facility]) Negative Influenza Type B ([facility]) Negative Influenza A & B Note See Note S. pyogenes GrpA [facility] Negative 11/16/22 11/16/22 11/16/22 07:23 07:24 08:18 MCV MCH MCHC RDW Plt Count MPV Immature Gran % (Auto) Neut % (Auto) Lymph % (Auto) [place] % (Auto) Eos % (Auto) Baso % (Auto) Lymph # (Auto) [place] # (Auto) Eos # (Auto) Baso # (Auto) Abs Immat Gran (auto) Absolute Neuts (auto) Absolute Nucleated RBC Nucleated RBC % (auto) VBG pH 7.50 H VBG pCO2 39 VBG pO2 78 VBG HCO3 31 H VBG O2 Saturation 97.0 VBG Base Excess 7.5 Anion Gap Estim Creat Clear Calc Estimated GFR Random Glucose Lactic Acid Calcium Total Bilirubin AST ALT Alkaline Phosphatase B-Natriuretic Peptide < 10 Total Protein Albumin Urine Color Yellow Urine Appearance Clear Urine pH 7.0 Ur Specific [place] 1.015 Urine Protein Trace Urine Glucose (UA) Negative Urine Ketones Negative Urine Blood Negative Urine Nitrite Negative Ur Leukocyte Esterase Negative COVID-19 ([facility]) COVID-19 Clin Com Influenza Type A ([facility]) Influenza Type B ([facility]) Influenza A & B Note S. pyogenes GrpA [facility] Imaging Radiologist's Impressions: Impressions Chest X-Ray 11/16/22 07:56 IMPRESSION: Patchy bilateral pulmonary opacities. Appearance most favors multifocal pulmonary opacities/pneumonia rather than vascular congestion. Correlate clinically. Assessment and Plan (1) Multifocal pneumonia: Status: Acute (2) Acute and chronic respiratory failure with hypoxia: Status: Acute (3) Panic attack as reaction to stress: Status: Acute Plan 42-year-old female with known history of asthma that has worsened since COVID-19 resulting in multiple admissions since the beginning of the year presents with similar asthma exacerbation picture. She states over the last week she has gotten more shortness of breath and [facility] office become more productive; she is not responding as well to outpatient therapies as usual. In the emergency room, chest x-ray consistent with multifocal pneumonia. S 1. Multifocal pneumonia (CPAP) - ceftriaxone/ azithromycin (1) - pulse dose Solu-Medrol; 60 mg IV q.6 hours times 24 hours then taper - DuoNebs q.4 hours while awake - titrate O2 down to outpatient levels at 2 L 2.Acute on chronic respiratory failure with hypoxia - as above 3.Panic attacks /general anxiety disorder - continue outpatient therapies - adjust as indicated Full Code Riax Requires 2 midnights going forward of inpatient stay for IV antibiotics/steroids to treat CAP in backdrop of chronic asthma. This cannot be achieved a lesser acute setting Time Spent With Patient Time: Total time managing care of this patient today ____ minutes. Quality Stroke Does the patient have a stroke diagnosis?: No VTE Prior VTE?: No VTE Risk Level:: Medical - moderate - high VTE Device Contraindication: Treatment Not Indicated VTE Drug Contraindication: N/A - Med Ordered
[2022-11-16] MEDS: Enoxaparin Sodium 40 MG/0.4 ML SYRINGE SUBCUT (13:15)
[2022-11-16] MEDS: methylPREDNISolone Sod Succ 125 MG/2 ML VIAL 60 MG IVPUSH ×2 (13:15→18:16)
[2022-11-16] MEDS: Azithromycin 500 MG in 0.9 % Sodium Chloride 250 ML 125 MG IV (13:15)
[2022-11-16] MEDS: SUMAtriptan succinate 25 MG TABLET PO (13:38)
[2022-11-16] MEDS: cefTRIAXone sodium 1 GM in 0.9 % Sodium Chloride 50 ML IV (14:44)
[2022-11-16] MEDS: Albuterol/Iprat 2.5/0.5MG 3 ML AMPUL.NEB INHALE ×2 (15:53→19:34)
--- NOTE | 2022-11-16 16:16 | PC.NURSE ---
Report to [facility]
[2022-11-16] MEDS: Omeprazole 20 MG CAPSULE.DR PO (16:20)
[2022-11-16] MEDS: Prazosin HCL 5 MG CAPSULE PO (20:36)
[2022-11-16] MEDS: Prazosin HCL 1 MG CAPSULE 2 MG PO (20:36)
[2022-11-16] MEDS: Montelukast Sodium 10 MG TABLET PO (20:37)
[2022-11-16] MEDS: PARoxetine HCL 40 MG TABLET PO (20:37)
[2022-11-16] MEDS: 0.9 % Sodium Chloride Flush 3 ML SYRINGE IVFLUSH (20:37)
[2022-11-16] MEDS: Mirtazapine 15 MG TABLET PO (20:37)
[2022-11-16] MEDS: NaPROXEN 500 MG TABLET PO (21:52)
[2022-11-16] MEDS: hydrOXYzine HCL 50 MG TABLET PO (21:52)
[2022-11-17] VITALS (12 sets, daily range): BP systolic 111–141; BP diastolic 63–81; PULSE 97–122; RESP 16–30; TEMP 36–36.1; O2SAT 88–93
[2022-11-17] MEDS: Albuterol/Iprat 2.5/0.5MG 3 ML AMPUL.NEB INHALE ×7 (00:06→23:55)
[2022-11-17] MEDS: methylPREDNISolone Sod Succ 125 MG/2 ML VIAL 60 MG IVPUSH ×4 (01:05→19:52)
[2022-11-17] MEDS: Omeprazole 20 MG CAPSULE.DR PO ×2 (06:23→16:47)
[2022-11-17 06:32] LABS: Basophils Absolute Auto 0.1 X10*3/uL (0.0-0.2); Basophils Percent Auto 0.2 % (0-2); Hematocrit 37.3 % (37.0-47.0); Hemoglobin 11.6 g/dl (12.0-16.0); Imm Gran Abs Auto 0.27 X10*3/uL (0.00-0.03); Imm Gran Pct Auto 1.1 % (0.0-0.4); Lymphocytes Percent Auto 4.1 % (20-40); MANUAL DIFF FLAG SCAN; Mean Corpuscular HGB Conc 31.1 g/dl (31.0-35.0); Mean Corpuscular Hemoglobin 26.3 pg (27.0-33.0); Mean Corpuscular Volume 84.6 fL (80.0-98.0); Mean Platelet Volume 10.8 fL (9.4-12.3); Monocytes Absolute Auto 0.9 X10*3/uL (0.1-1.2); Monocytes Percent Auto 3.6 % (2-11); Neutrophils Absolute Auto 22.7 x10*3/uL (2.0-8.3); Platelet Count 329 X10*3/uL (160-400); Red Blood Count 4.41 X10*6/uL (4.20-5.50); Red Cell Distribution Width 17.6 % (11.0-16.0); SCAN SMEAR FLAG 1; White Blood Count 24.9 X10*3/uL (4.8-10.8)
[2022-11-17 06:47] LABS: Anion Gap 13 (12-20); Blood Urea Nitrogen 6 mg/dL (9-16); Calcium 8.8 mg/dL (8.4-10.2); Carbon Dioxide 21 mmol/L (22-29); Chloride 109 mmol/L (96-108); Creatinine Clr Calc Pharmacy 113.8; Estimated Glomerular Filt Rate > 60; Glucose Random 192 mg/dL (60-115); Potassium 4.6 mmol/L (3.3-5.1); Sodium 138 mmol/L (135-145)
[2022-11-17 08:07] LABS: SLIDE REVIEW VERIFIED
[2022-11-17] MEDS: Nicotine 21 MG PATCH.TD24 TRANSDERMA (08:14)
[2022-11-17] MEDS: 0.9 % Sodium Chloride Flush 3 ML SYRINGE IVFLUSH ×3 (08:14→19:53)
[2022-11-17] MEDS: buPROPion HCl XL 300 MG TAB.ER.24H PO (08:15)
[2022-11-17] MEDS: hydrOXYzine HCL 50 MG TABLET PO ×4 (09:05→22:50)
--- NOTE | 2022-11-17 11:20 | MHC.CM.PN ---
with interpertator met parminder johnson who explins that she lives with family she has a lock box that [employer] daily pt has a [employer] as well she will likely have a ride home from her family dc ravi home with m[place]enzie
[2022-11-17] MEDS: SUMAtriptan succinate 25 MG TABLET PO (12:31)
[2022-11-17] MEDS: Azithromycin 500 MG in 0.9 % Sodium Chloride 250 ML 125 MG IV (12:32)
[2022-11-17] MEDS: Enoxaparin Sodium 40 MG/0.4 ML SYRINGE SUBCUT (12:33)
--- NOTE | 2022-11-17 14:23 | P.PNIM_ITS ---
Subjective Subjective Date of Service: 11/17/22 Interval History: somnolent but arousable. Increase O2 requirement since admission Review of Systems denies chest pain Admit shortness of breath that is improved since admission Denies nausea vomiting diarrhea admits fever chills Physical Exam Vital Signs: Vital Signs: Last Vital Signs Temp 96.8 F 11/17/22 07:51 Pulse 102 H 11/17/22 11:39 Resp 24 H 11/17/22 11:39 BP 111/75 11/17/22 07:51 Pulse Ox 93 11/17/22 10:24 O2 Del Method Oxymask 11/17/22 10:24 O2 Flow Rate 9 11/17/22 10:24 Oxygen Flow Rate 4 11/16/22 06:06 BMI result Body Mass Index 45.7 Const: Other: awake alert and oriented. Resting comfortably in bed able to speak in full sentences Resp: Other: diminished throughout with scattered expiratory wheeze Cardio: Other: no S4; positive S1-S2; no S3 murmurs rubs or gallops GI: Other: obese nontender nondistended. Normoacti Neuro: Other: cranial nerves 2-12 grossly intact as tested motor is 5/5 all extremities. Sensation is intact. Cognition appropria Extrem: Other: no edema bilaterally Objective Data Active Medications Acetaminophen (Acetaminophen 325 Mg Tablet) 650 mg PO Q6H PRN PRN Reason: Pain, Mild (Pain Scale 1-3) Albuterol Sulfate (Albuterol Sulfate (0.083%) 2.5 Mg/3 Ml Vial.Neb) 2.5 mg INHALE Q6H PRN PRN Reason: wheezing Albuterol Sulfate (Albuterol Sulfate 90 Mcg 8 Gm Inhaler) 2 puff INHALE RQ6H [facility] Last Admin: 11/17/22 06:32 Dose: Not Given Documented By: KENZIE Non-Admin Reason: Duplicate Order Albuterol/Ipratropium (Albuterol/Iprat 2.5/0.5mg 3 Ml Ampul.Neb) 3 ml INHALE RQ4H [facility] Last Admin: 11/17/22 11:39 Dose: 3 ml Documented By: SHIVAM Bupropion HCl (Bupropion Hcl Xl 300 Mg Tab.Er.24h) 300 mg PO DAILY [facility] Last Admin: 11/17/22 08:15 Dose: 300 mg Documented By: JOSE Enoxaparin Sodium (Enoxaparin Sodium 40 Mg/0.4 Ml Syringe) 40 mg SUBCUT Q24H [facility] Last Admin: 11/17/22 12:33 Dose: 40 mg Documented By: ERIC Fluticasone/Vilanterol (Fluticasone/Vilanterol 200/25 Blst.W.Dev) 1 puff INHALE RDAILY [facility] Last Admin: 11/17/22 08:40 Dose: Not Given Documented By: SHIVAM Non-Admin Reason: Not available, pharmacy called. Hydroxyzine HCl (Hydroxyzine Hcl 50 Mg Tablet) 50 mg PO QID PRN PRN Reason: Anxiety Last Admin: 11/17/22 14:02 Dose: 50 mg Documented By: ERIC Ceftriaxone Sodium 1 gm/ (Sodium Chloride) 50 mls @ 100 mls/hr IV Q24H [facility] Last Infusion: 11/16/22 15:24 Dose: 0 mls/hr Documented By: PEACE Azithromycin 500 mg/ Sodium (Chloride) 250 mls @ 125 mls/hr IV Q24H [facility] Last Admin: 11/17/22 12:32 Dose: 125 mls/hr Documented By: ERIC Methylprednisolone Sodium Succinate (Methylprednisolone Sod Succ 125 Mg/2 Ml Vial) 60 mg IVPUSH Q6H [facility] Last Admin: 11/17/22 12:31 Dose: 60 mg Documented By: ERIC Mirtazapine (Mirtazapine 15 Mg Tablet) 15 mg PO BEDTIME [facility] Last Admin: 11/16/22 20:37 Dose: 15 mg Documented By: EVIN Montelukast Sodium (Montelukast Sodium 10 Mg Tablet) 10 mg PO BEDTIME [facility] Last Admin: 11/16/22 20:37 Dose: 10 mg Documented By: EVIN Naproxen (Naproxen 500 Mg Tablet) 500 mg PO DAILY PRN PRN Reason: Pain Last Admin: 11/16/22 21:52 Dose: 500 mg Documented By: EVIN Nicotine (Nicotine 21 Mg Patch.Td24) 21 mg TRANSDERMA DAILY [facility] Last Admin: 11/17/22 08:14 Dose: 21 mg Documented By: JOSE Omeprazole (Omeprazole 20 Mg Capsule.) 20 mg PO BID@0630,1630 [facility] Last Admin: 11/17/22 06:23 Dose: 20 mg Documented By: EVIN Ondansetron HCl (Ondansetron Hcl 4 Mg/2 Ml Vial) 4 mg IVPUSH Q8H PRN PRN Reason: Nausea and Vomiting Paroxetine HCl (Paroxetine Hcl 40 Mg Tablet) 40 mg PO BEDTIME [facility] Last Admin: 11/16/22 20:37 Dose: 40 mg Documented By: EVIN Pharmacy Consult (Consult Rx Perform Med Rec) 1 each MISCELLANE ONCE PRN PRN Reason: Consult order Prazosin HCl (Prazosin Hcl 1 Mg Capsule) 2 mg PO BEDTIME [facility]; Protocol Last Admin: 11/16/22 20:36 Dose: 2 mg Documented By: EVIN Prazosin HCl (Prazosin Hcl 5 Mg Capsule) 5 mg PO BEDTIME [facility]; Protocol Last Admin: 11/16/22 20:36 Dose: 5 mg Documented By: EVIN Sodium Chloride (0.9 % Sodium Chloride Flush 3 Ml Syringe) 3 ml IVFLUSH QSHIFT [facility] Last Admin: 11/17/22 08:14 Dose: 3 ml Documented By: JOSE Sumatriptan Succinate (Sumatriptan Succinate 25 Mg Tablet) 25 mg PO DAILY PRN PRN Reason: Migraine Headache Last Admin: 11/17/22 12:31 Dose: 25 mg Documented By: ERIC Labs 11/17/22 05:58 11/17/22 05:58 Labs: Laboratory Results - last 24 hr 11/17/22 11/17/22 05:58 05:58 MCV 84.6 MCH 26.3 L MCHC 31.1 RDW 17.6 H Plt Count 329 MPV 10.8 Immature Gran % (Auto) 1.1 H Neut % (Auto) 91.0 H Lymph % (Auto) 4.1 L [place] % (Auto) 3.6 Eos % (Auto) 0.0 Baso % (Auto) 0.2 Lymph # (Auto) 1.0 L [place] # (Auto) 0.9 Eos # (Auto) 0.0 Baso # (Auto) 0.1 Abs Immat Gran (auto) 0.27 H Absolute Neuts (auto) 22.7 H Absolute Nucleated RBC 0.000 Nucleated RBC % (auto) 0.0 Smear Tech's Comments VERIFIED Anion Gap 13 Estim Creat Clear Calc 113.8 Estimated GFR > 60 Random Glucose 192 H Calcium 8.8 Microbiology Microbiology Results: Microbiology 11/16/22 07:28 Blood Culture - Preliminary Blood - Venous No growth after 24 hours. 11/16/22 07:22 Blood Culture - Preliminary Blood - Venous No growth after 24 hours. Assessment and Plan (1) Multifocal pneumonia: Status: Acute (2) Acute and chronic respiratory failure with hypoxia: Status: Acute (3) Generalized anxiety disorder: Status: Acute Plan 42-year-old female with known history of asthma that has worsened since COVID- 19 resulting in multiple admissions since the beginning of the year presents with similar asthma exacerbation picture. She states over the last week she has gotten more shortness of breath and [facility] office become more productive; she is not responding as well to outpatient therapies as usual. In the emergency room, chest x-ray consistent with multifocal pneumonia. S 1. Multifocal pneumonia (CPAP) - ceftriaxone/ azithromycin (2) - pulse dose Solu-Medrol; 60 mg IV q.6 hours times 24 hours then taper - DuoNebs q.4 hours while awake - increased O2 demand; will CT chest to rule out PE given COVID history 2.Acute on chronic respiratory failure with hypoxia - as above - check VBG - auto CPAP at HS 3.Panic attacks /general anxiety disorder - continue outpatient therapies - adjust as indicated Full Code Dwight requires ongoing hospitalization to treat multifocal pneumonia with IV antibiotics Time Spent With Patient Time: Total time managing care of this patient today ____ minutes. Quality Stroke Does the patient have a stroke diagnosis?: No VTE Prior VTE?: No VTE Risk Level:: Medical - moderate - high VTE Device Contraindication: Treatment Not Indicated VTE Drug Contraindication: N/A - Med Ordered
[2022-11-17] MEDS: cefTRIAXone sodium 1 GM in 0.9 % Sodium Chloride 50 ML IV (14:39)
[2022-11-17 16:16] LABS: VBG Base Excess 2.3 mmol/L; VBG HCO3 25 mmol/L (22-26); VBG pCO2 34 mmHg; VBG pH 7.47 (7.32-7.43); VBG pO2 126 mmHg
[2022-11-17 16:29] LABS: Venous Blood Gas Refer to POC result
[2022-11-17] MEDS: iohexoL 350 MG/ML 100 ML INFUS..BTL 65 ML IV (17:07)
[2022-11-17] MEDS: Prazosin HCL 5 MG CAPSULE PO (19:59)
[2022-11-17] MEDS: Mirtazapine 15 MG TABLET PO (19:59)
[2022-11-17] MEDS: PARoxetine HCL 40 MG TABLET PO (19:59)
[2022-11-17] MEDS: Prazosin HCL 1 MG CAPSULE 2 MG PO (19:59)
[2022-11-17] MEDS: Montelukast Sodium 10 MG TABLET PO (19:59)
[2022-11-17] MEDS: NaPROXEN 500 MG TABLET PO (20:55)
[2022-11-17] MEDS: ondansetron HCL 4 MG/2 ML VIAL IVPUSH (22:10)
[2022-11-17] MEDS: Acetaminophen 325 MG TABLET 650 MG PO (23:07)
[2022-11-17] MEDS: Prochlorperazine Edisylate 10 MG/2 ML VIAL 5 MG IVPUSH (23:32)
[2022-11-17] MEDS: diphenhydrAMINE HCL 50 MG/ML VIAL 25 MG IVPUSH (23:32)
[2022-11-17] MEDS: LORazepam 2 MG/ML VIAL 0.5 MG IVPUSH (23:32)
--- NOTE | 2022-11-17 23:55 | PM.EVENT ---
Event Note Date of Service: 11/17/22 Event Note: Patient hyperventilating, desatting to the low 80s, has severe anxiety, Atarax not effective, given Ativan with no effect, patient continues to be anxious, tachypneic, not directable, at this time will place on high-flow nasal cannula obtain chest x-ray, and 5 of Haldol given. Time Spent With Patient Time: Total time managing care of this patient today ____ minutes.
[2022-11-17] MEDS: Haloperidol Lactate 5 MG/ML VIAL IM (23:58)
[2022-11-18] VITALS (18 sets, daily range): BP systolic 132–153; BP diastolic 75–97; PULSE 99–117; RESP 14–36; TEMP 35.9–37; O2SAT 89–95
--- NOTE | 2022-11-18 00:37 | PC.NURSE ---
pt starting panic attack at 22:30, after cpap on. s/s - restless 4 extremities movement, complained about the headache, and hot. she wants me to fanning her to face not tolerated with cpap. Charge nurse Devika helping me to give her Atarax and Acetaminophen. These medication didn't work per pt. she starting complain about the itcyness in bilateral hands. pt was work of breathing, greater than RR 30s, oxygen level went to low 80s, dr. Asif notified and RT. order Benadryl, other meds, and haldol 5mg IM. put it on the transfer order to [facility] for the monitoring oxygen level. RT put non-breath mask with 15 L, O2 was still low 84-90%. RT change to high flow, now 94%. HR 110 BP 132/75 RR 30. better than before but still intermittently restless movement. pt closed the eyes w/siting position and resting. we will keep monitoring until transfer to other unit.
[2022-11-18] MEDS: methylPREDNISolone Sod Succ 125 MG/2 ML VIAL 60 MG IVPUSH ×4 (02:22→18:53)
[2022-11-18] MEDS: Albuterol/Iprat 2.5/0.5MG 3 ML AMPUL.NEB INHALE ×5 (03:08→19:03)
--- NOTE | 2022-11-18 05:37 | PC.NURSE ---
Assumed care at 0300 approx. Pt came in via stretcher.very restless and anxious upon arrival. Placed on a HFNC 45L 95% FiO2. able to relax to her bed and slept after. O2 sats maintaining at 25%
[2022-11-18 07:30] LABS: Basophils Absolute Auto 0.1 X10*3/uL (0.0-0.2); Basophils Percent Auto 0.2 % (0-2); Hematocrit 37.3 % (37.0-47.0); Hemoglobin 11.6 g/dl (12.0-16.0); Imm Gran Pct Auto 2.1 % (0.0-0.4); Lymphocytes Absolute Auto 1.1 X10*3/uL (1.2-4.9); Lymphocytes Percent Auto 3.7 % (20-40); MANUAL DIFF FLAG NO; Mean Corpuscular HGB Conc 31.1 g/dl (31.0-35.0); Mean Corpuscular Hemoglobin 26.2 pg (27.0-33.0); Mean Corpuscular Volume 84.4 fL (80.0-98.0); Mean Platelet Volume 10.5 fL (9.4-12.3); Monocytes Absolute Auto 1.2 X10*3/uL (0.1-1.2); Monocytes Percent Auto 4.1 % (2-11); Neutrophils Absolute Auto 25.6 x10*3/uL (2.0-8.3); Neutrophils Percent Auto 89.9 % (45-73); Platelet Count 385 X10*3/uL (160-400); Red Blood Count 4.42 X10*6/uL (4.20-5.50); Red Cell Distribution Width 17.9 % (11.0-16.0); SCAN SMEAR FLAG 1; White Blood Count 28.5 X10*3/uL (4.8-10.8)
[2022-11-18] MEDS: Nicotine 21 MG PATCH.TD24 TRANSDERMA (07:54)
[2022-11-18] MEDS: buPROPion HCl XL 300 MG TAB.ER.24H PO (07:56)
[2022-11-18] MEDS: 0.9 % Sodium Chloride Flush 3 ML SYRINGE IVFLUSH ×2 (08:00→19:39)
[2022-11-18 08:18] LABS: Anion Gap 16 (12-20); Blood Urea Nitrogen 12 mg/dL (9-16); Calcium 9.1 mg/dL (8.4-10.2); Carbon Dioxide 21 mmol/L (22-29); Chloride 108 mmol/L (96-108); Creatinine Clr Calc Pharmacy 110.8; Estimated Glomerular Filt Rate > 60; Glucose Random 220 mg/dL (60-115); Potassium 4.1 mmol/L (3.3-5.1); Sodium 141 mmol/L (135-145)
[2022-11-18] MEDS: Furosemide 40 MG/4 ML VIAL IVPUSH (11:14)
[2022-11-18 11:30] LABS: Glucose, Whole Blood 251 mg/dL (60-115)
--- NOTE | 2022-11-18 11:49 | W.PM.CCCN ---
History of Present Illness Data of Consult Service Date: 11/18/22 Requesting physician: Joni Wallace Primary Care Provider: Tatum Magdaleno MD HPI Reason for consult: Hypoxia 42-year-old lady with underlying morbid obesity, asthma, chronic respiratory failure with possible asthma, remote history of COVID admitted on 11/16/2022 with productive cough and fevers at home, also worsening dyspnea and hypoxia. Patient has been started on empiric test mm glucocorticoids, nebulized bronchodilators, and coverage for a community-acquired pneumonia. Her hospital course significant for progressive hypoxemia, now requiring high-flow nasal cannula at 90% and 50 L. Patient denies productive cough. Her CT angio chest was negative for pulmonary emboli, but showed multifocal infiltrates. Review of Systems Constitutional: Constitutional: Denies daytime sleepiness, Denies excessive sweating, Denies fatigue, Denies fever(s), Denies lethargy, Denies malaise, Denies night sweats, Denies snoring and Denies weight loss Eyes: Eyes: Denies blurry vision and Denies itchy eyes ENT: Denies nasal congestion, Denies post nasal drip, Denies sinus pain, Denies sinus pressure and Denies other ( Thrush) Cardiovascular: Cardiovascular: Denies chest pain, Reports pedal edema, Reports dyspnea, Reports dyspnea on exertion, Reports orthopnea and Denies paroxysmal nocturnal dyspnea Respiratory: Respiratory: Denies cough, Denies hemoptysis, Denies excessive phlegm production, Reports dyspnea, Reports dyspnea on exertion, Denies snoring and Denies wheezing Gastrointestinal: Gastrointestinal: Denies abdominal pain and Denies heartburn Musculoskeletal: Musculoskeletal: Denies myalgias, Denies arthralgias and Denies joint swelling Integumentary/Breasts: Skin/Breast: Denies rash Neurologic: Denies memory loss and Denies seizure-like activity Psychiatric: Psychiatric: Denies abnormal sleep pattern, Denies anxiety and Denies memory loss Endocrine: Endocrine: Denies excessive sweating, Denies fatigue and Denies heat intolerance Hematologic/Lymphatic: Hematologic/Lymphatic: Denies easy bruising Allergic/Immunologic: Allergic/Immunologic: Denies itchy eyes, Denies seasonal rhinorrhea and Denies wheezing PMFSH Past Medical History Medical History Asthma Depression Disc herniation Generalized anxiety disorder H. pylori infection Migraine Morbid obesity Recurrent major depression Sinus infection Surgical History Surgical History History of Social History Social History Household Members: Spouse Housing: Apartment Do you presently have visiting nurse or other home services: No Alcohol intake: never Patient Tobacco Use Status: Never used Tobacco Tobacco use type: Cigarette Cigarette Packs Per Day: 2 Cigarettes Per Day: 5 Second Hand Smoke Exposure: Yes Advance Directives Date on File: 05/12/22 service: No Current occupational status: unemployed Meds Allergies Allergy/AdvReac Type Severity Reaction Status Date / Time promethazine [From PHENERGAN] Allergy Unknown ITCHING Verified 07/13/22 17:36 codeine [CODEINE] AdvReac Unknown STOMACH Verified 07/13/22 17:36 UPSET morphine [MORPHINE] AdvReac Unknown MORE PAIN Verified 07/13/22 17:36 Active Medications: Current Medications Acetaminophen (Acetaminophen 325 Mg Tablet) 650 mg PO Q6H PRN PRN Reason: Pain, Mild (Pain Scale 1-3) Last Admin: 11/17/22 23:07 Dose: 650 mg Albuterol Sulfate (Albuterol Sulfate (0.083%) 2.5 Mg/3 Ml Vial.Neb) 2.5 mg INHALE Q6H PRN PRN Reason: wheezing Albuterol Sulfate (Albuterol Sulfate 90 Mcg 8 Gm Inhaler) 2 puff INHALE RQ6H [facility] Last Admin: 11/18/22 07:35 Dose: Not Given Albuterol/Ipratropium (Albuterol/Iprat 2.5/0.5mg 3 Ml Ampul.Neb) 3 ml INHALE RQ4H [facility] Last Admin: 11/18/22 07:38 Dose: 3 ml Bupropion HCl (Bupropion Hcl Xl 300 Mg Tab.Er.24h) 300 mg PO DAILY [facility] Last Admin: 11/18/22 07:56 Dose: 300 mg Enoxaparin Sodium (Enoxaparin Sodium 40 Mg/0.4 Ml Syringe) 40 mg SUBCUT Q24H [facility] Last Admin: 11/17/22 12:33 Dose: 40 mg Fluticasone/Vilanterol (Fluticasone/Vilanterol 200/25 Blst.W.Dev) 1 puff INHALE RDAILY [facility] Last Admin: 11/18/22 11:04 Dose: Not Given Hydroxyzine HCl (Hydroxyzine Hcl 50 Mg Tablet) 50 mg PO QID PRN PRN Reason: Anxiety Last Admin: 11/17/22 22:50 Dose: 50 mg Ceftriaxone Sodium 1 gm/ (Sodium Chloride) 50 mls @ 100 mls/hr IV Q24H [facility] Last Infusion: 11/17/22 16:06 Dose: Infused Azithromycin 500 mg/ Sodium (Chloride) 250 mls @ 125 mls/hr IV Q24H [facility] Last Infusion: 11/17/22 14:43 Dose: Infused Methylprednisolone Sodium Succinate (Methylprednisolone Sod Succ 125 Mg/2 Ml Vial) 60 mg IVPUSH Q6H [facility] Last Admin: 11/18/22 07:53 Dose: 60 mg Mirtazapine (Mirtazapine 15 Mg Tablet) 15 mg PO BEDTIME [facility] Last Admin: 11/17/22 19:59 Dose: 15 mg Montelukast Sodium (Montelukast Sodium 10 Mg Tablet) 10 mg PO BEDTIME [facility] Last Admin: 11/17/22 19:59 Dose: 10 mg Naproxen (Naproxen 500 Mg Tablet) 500 mg PO DAILY PRN PRN Reason: Pain Last Admin: 11/17/22 20:55 Dose: 500 mg Nicotine (Nicotine 21 Mg Patch.Td24) 21 mg TRANSDERMA DAILY [facility] Last Admin: 11/18/22 07:54 Dose: 21 mg Omeprazole (Omeprazole 20 Mg Capsule.Dr) 20 mg PO BID@0630,1630 [facility] Last Admin: 11/18/22 06:31 Dose: Not Given Ondansetron HCl (Ondansetron Hcl 4 Mg/2 Ml Vial) 4 mg IVPUSH Q8H PRN PRN Reason: Nausea and Vomiting Last Admin: 11/17/22 22:10 Dose: 4 mg Paroxetine HCl (Paroxetine Hcl 40 Mg Tablet) 40 mg PO BEDTIME [facility] Last Admin: 11/17/22 19:59 Dose: 40 mg Pharmacy Consult (Consult Rx Perform Med Rec) 1 each MISCELLANE ONCE PRN PRN Reason: Consult order Prazosin HCl (Prazosin Hcl 1 Mg Capsule) 2 mg PO BEDTIME [facility]; Protocol Last Admin: 11/17/22 19:59 Dose: 2 mg Prazosin HCl (Prazosin Hcl 5 Mg Capsule) 5 mg PO BEDTIME [facility]; Protocol Last Admin: 11/17/22 19:59 Dose: 5 mg Sodium Chloride (0.9 % Sodium Chloride Flush 3 Ml Syringe) 3 ml IVFLUSH QSHIFT [facility] Last Admin: 11/18/22 08:00 Dose: 3 ml Sumatriptan Succinate (Sumatriptan Succinate 25 Mg Tablet) 25 mg PO DAILY PRN PRN Reason: Migraine Headache Last Admin: 11/17/22 12:31 Dose: 25 mg Home Medications Medication Instructions Recorded Confirmed Last Taken Type acetaminophen 325 mg tablet 650 mg PO Q6H PRN Pain 11/16/22 11/16/22 Unknown History (Tylenol) albuterol sulfate 2.5 mg/3 mL 2.5 mg inhalation Q6H PRN wheezing 11/16/22 11/16/22 Unknown History (0.083 %) solution for nebulization albuterol sulfate 90 mcg/actuation 2 puff inhalation Q6H 11/16/22 11/16/22 Unknown History aerosol inhaler (Ventolin HFA) budesonide-formoterol HFA 160 2 puff inhalation BID 11/16/22 11/16/22 11/15/22 History mcg-4.5 mcg/actuation aerosol inhaler (Symbicort) bupropion HCl 300 mg 24 hr tablet, 300 mg PO DAILY 11/16/22 11/16/22 11/15/22 History extended release (Wellbutrin XL) cyanocobalamin (vitamin B-12) 1,000 mcg sublingual DAILY 11/16/22 11/16/22 11/15/22 History 1,000 mcg sublingual tablet dicyclomine 10 mg capsule 20 mg PO Q8H PRN Pain 11/16/22 11/16/22 Unknown History gabapentin 100 mg capsule 100 mg PO BID PRN Pain 11/16/22 11/16/22 Unknown History gabapentin 400 mg capsule 800 mg PO BEDTIME 11/16/22 11/16/22 11/15/22 History hydroxyzine pamoate 50 mg capsule 50 mg PO QID PRN Anxiety 11/16/22 11/16/22 Unknown History meloxicam 15 mg tablet 15 mg PO DAILY PRN Pain 11/16/22 11/16/22 Unknown History mirtazapine 15 mg tablet 15 mg PO BEDTIME 0711/16/22 11/15/22 History montelukast 10 mg tablet 10 mg PO BEDTIME 11/16/22 11/16/22 11/15/22 History nicotine (polacrilex) 4 mg gum 4 mg PO Q2H PRN Nicotine Cravings 11/16/22 11/16/22 Unknown History nicotine 21 mg/24 hr daily 1 patch topical DAILY 11/16/22 11/16/22 11/15/22 History transdermal patch ondansetron HCl 4 mg tablet 4 mg PO Q8H PRN nausea/vomiting 11/16/22 11/16/22 Unknown History pantoprazole 40 mg tablet,delayed 40 mg PO BID 11/16/22 11/16/22 11/15/22 History release paroxetine HCl 40 mg tablet 40 mg PO BEDTIME 11/16/22 11/16/22 11/15/22 History polyethylene glycol 3350 17 gram 17 g PO DAILY PRN Constipation 11/16/22 11/16/22 Unknown History oral powder packet prazosin 2 mg capsule 2 mg PO BEDTIME 11/16/22 11/16/22 11/15/22 History prazosin 5 mg capsule (Minipress) 5 mg PO BEDTIME 11/16/22 11/16/22 11/15/22 History riboflavin (vitamin B2) 100 mg 200 mg PO Q12H 11/16/22 11/16/22 11/15/22 History tablet (Vitamin B-2) sumatriptan succinate 25 mg tablet 25 mg PO DAILY PRN Migraine 11/16/22 11/16/22 Unknown History Headache triamcinolone acetonide 55 mcg 1 spray intranasal DAILY 11/16/22 11/16/22 11/15/22 History nasal spray aerosol Physical Exam Vital Signs: Vital Signs: Last Vital Signs Temp 97.6 F 11/18/22 11:31 Pulse 106 H 11/18/22 11:31 Resp 20 11/18/22 11:31 BP 150/92 H 11/18/22 11:31 Pulse Ox 94 11/18/22 11:31 O2 Del Method High Flow Nasal C annula 11/18/22 11:31 O2 Flow Rate 50 11/18/22 11:31 FiO2 90 11/18/22 11:31 Oxygen Flow Rate 4 11/16/22 06:06 BMI result Body Mass Index 45.7 Const: General: no acute distress and alert Nutritional Appearance: obese Orientation/consciousness: Other orientation findings ( oriented) HEENT: Head: Yes atraumatic Eyes: General: appearance normal, both eyes and all related structures Sclerae: sclerae normal EOM: EOMs intact bilaterally Neck: Neck: Yes supple Lymphatic: no lymphadenopathy noted Resp: Effort & Inspection: normal respiratory effort and no use of accessory muscles Auscultation: clear to auscultation bilaterally Cardio: Rate: regular rate Rhythm: regular rhythm Heart sounds: no gallops, no murmurs and no rubs Skin: General skin exam: other ( warm) Extrem: General: No clubbing, No cyanosis and Yes edema (1+ bilateral) Results Labs 11/18/22 06:57 11/18/22 06:57 Labs: Short CBC 11/18/22 Range/Units 06:57 WBC 28.5 H (4.8-10.8) X10*3/uL Hgb 11.6 L (12.0-16.0) g/dl Hct 37.3 (37.0-47.0) % Plt Count 385 (160-400) X10*3/uL BMP 11/18/22 06:57 Sodium 141 Potassium 4.1 Chloride 108 Carbon Dioxide 21 L BUN 12 Creatinine 0.75 Calcium 9.1 Microbiology Microbiology Results: Microbiology 11/16/22 07:28 Blood - Venous Blood Culture - Preliminary No growth after 48 hours. 11/16/22 07:22 Blood - Venous Blood Culture - Preliminary No growth after 48 hours. Assessment and Plan (1) Acute and chronic respiratory failure with hypoxia: Status: Acute (2) Pulmonary edema: Status: Acute Plan Impression: 42-year-old lady admitted with acute on chronic hypoxic respiratory failure with multifocal infiltrates and progressive hypoxia correlating with increasing I/O balance. No evidence of COPD or asthma exacerbation. Pneumonia less likely. Likely pulmonary edema. Recommendations: Consider placement of Babcock catheter for monitoring of IV diuresis. Consider discontinuation of systemic glucocorticoids. Minimize sedating drugs. Titrate off supplemental oxygen as tolerated. At this time does not require intensive care level of monitoring. Please notify for re-evaluation, if patient's condition changes. Discussed with Dr. Wallace. Time Spent With Patient Time: Total time managing care of this patient today ____ minutes.
--- NOTE | 2022-11-18 12:27 | PC.RT ---
Rapid response called at approximately 11:00am. upon arrival to bedside, pt. SpO2 being assessed by nursing staff, reading 50's. Multiple locations being used to determine correct SpO2, with reading correlating between all locations (finger, ear, forehead). Noticed changes made to settings on HFNC prior to RT arrival. Informed by RN that ICU MD lowered settings on HFNC prior to rapid response. Settings increased by MD during rapid response, ABG obtained.
[2022-11-18 13:42] LABS: ABG Base Excess 1.3 mmol/L; ABG HCO3 26 mmol/L (22-26); ABG pCO2 43 mmHg (32-45); ABG pH 7.39 (7.35-7.45); ABG pO2 66 mmHg (83-108)
--- NOTE | 2022-11-18 13:48 | PC.NURSE ---
rapid response called on patient @ 1105 due to O2 sat in the 60s while on high flow NC. Patient had increased WOB and RR when MD arrived. Respiratory therapist and intensivest adjusted patient's O2 settings and a stat 40mg dose of IV lasix was given at 11:12. ABGs were drawn. A non-rebreather was placed over the patient's high flow cannula and o2sat began to rise back up.a 16 fr eddy cath was placed for I/Os. current o2 sat is 91%. Will continue to monitor patient.
[2022-11-18] MEDS: Enoxaparin Sodium 40 MG/0.4 ML SYRINGE SUBCUT (13:58)
[2022-11-18] MEDS: cefTRIAXone sodium 1 GM in 0.9 % Sodium Chloride 50 ML IV (13:58)
[2022-11-18] MEDS: Azithromycin 500 MG in 0.9 % Sodium Chloride 250 ML 125 MG IV (14:09)
[2022-11-18] MEDS: ondansetron HCL 4 MG/2 ML VIAL IVPUSH (15:31)
[2022-11-18] MEDS: SUMAtriptan succinate 25 MG TABLET PO (15:34)
--- NOTE | 2022-11-18 16:02 | P.PNIM_ITS ---
Subjective Subjective Date of Service: 11/18/22 Interval History: multiple episodes of desaturation with extreme restlessness over the course of the day. Two rapid response call initiated. Eventually patient stabilized on Review of Systems Unable to obtain Physical Exam Vital Signs: Vital Signs: Last Vital Signs Temp 97.8 F 11/18/22 15:21 Pulse 107 H 11/18/22 15:21 Resp 19 11/18/22 15:21 BP 134/77 11/18/22 15:21 Pulse Ox 92 11/18/22 15:21 O2 Del Method High Flow Nasal C annula 11/18/22 15:21 O2 Flow Rate 45 11/18/22 15:21 FiO2 85 11/18/22 15:21 Oxygen Flow Rate 4 11/16/22 06:06 BMI result Body Mass Index 45.7 Const: Other: awake alert and oriented. Resting comfortably in bed able to speak in full sentences Resp: Other: diminished throughout with scattered expiratory wheeze Cardio: Other: no S4; positive S1-S2; no S3 murmurs rubs or gallops GI: Other: obese nontender nondistended. Normoacti Neuro: Other: cranial nerves 2-12 grossly intact as tested motor is 5/5 all extremities. Sensation is intact. Cognition appropria Extrem: Other: no edema bilaterally Objective Data Active Medications Acetaminophen (Acetaminophen 325 Mg Tablet) 650 mg PO Q6H PRN PRN Reason: Pain, Mild (Pain Scale 1-3) Last Admin: 11/17/22 23:07 Dose: 650 mg Documented By: JAMES Albuterol Sulfate (Albuterol Sulfate (0.083%) 2.5 Mg/3 Ml Vial.Neb) 2.5 mg INHALE Q6H PRN PRN Reason: wheezing Albuterol Sulfate (Albuterol Sulfate 90 Mcg 8 Gm Inhaler) 2 puff INHALE RQ6H [facility] Last Admin: 11/18/22 07:35 Dose: Not Given Documented By: EMILEE Non-Admin Reason: Duplicate Order Albuterol/Ipratropium (Albuterol/Iprat 2.5/0.5mg 3 Ml Ampul.Neb) 3 ml INHALE RQ4H [facility] Last Admin: 11/18/22 11:57 Dose: 3 ml Documented By: EMILEE Bupropion HCl (Bupropion Hcl Xl 300 Mg Tab.Er.24h) 300 mg PO DAILY [facility] Last Admin: 11/18/22 07:56 Dose: 300 mg Documented By: JUSTUS Enoxaparin Sodium (Enoxaparin Sodium 40 Mg/0.4 Ml Syringe) 40 mg SUBCUT Q24H [facility] Last Admin: 11/18/22 13:58 Dose: 40 mg Documented By: ELIOT Fluticasone/Vilanterol (Fluticasone/Vilanterol 200/25 Blst.W.Dev) 1 puff INHALE RDAILY [facility] Last Admin: 11/18/22 11:04 Dose: Not Given Documented By: EMILEE Non-Admin Reason: See Note Hydroxyzine HCl (Hydroxyzine Hcl 50 Mg Tablet) 50 mg PO QID PRN PRN Reason: Anxiety Last Admin: 11/17/22 22:50 Dose: 50 mg Documented By: JAMES Ceftriaxone Sodium 1 gm/ (Sodium Chloride) 50 mls @ 100 mls/hr IV Q24H [facility] Last Admin: 11/18/22 13:58 Dose: 100 mls/hr Documented By: ELIOT Azithromycin 500 mg/ Sodium (Chloride) 250 mls @ 125 mls/hr IV Q24H [facility] Last Admin: 11/18/22 14:09 Dose: 125 mls/hr Documented By: ELIOT Methylprednisolone Sodium Succinate (Methylprednisolone Sod Succ 125 Mg/2 Ml Vial) 60 mg IVPUSH Q6H [facility] Last Admin: 11/18/22 13:58 Dose: 60 mg Documented By: ELIOT Mirtazapine (Mirtazapine 15 Mg Tablet) 15 mg PO BEDTIME [facility] Last Admin: 11/17/22 19:59 Dose: 15 mg Documented By: EVIN Montelukast Sodium (Montelukast Sodium 10 Mg Tablet) 10 mg PO BEDTIME [facility] Last Admin: 11/17/22 19:59 Dose: 10 mg Documented By: EVIN Naproxen (Naproxen 500 Mg Tablet) 500 mg PO DAILY PRN PRN Reason: Pain Last Admin: 11/17/22 20:55 Dose: 500 mg Documented By: EVNI Nicotine (Nicotine 21 Mg Patch.Td24) 21 mg TRANSDERMA DAILY [facility] Last Admin: 11/18/22 07:54 Dose: 21 mg Documented By: JUSTUS Omeprazole (Omeprazole 20 Mg Capsule.) 20 mg PO BID@0630,5740 [facility] Last Admin: 11/18/22 06:31 Dose: Not Given Documented By: RUDI Non-Admin Reason: Patient Refused Ondansetron HCl (Ondansetron Hcl 4 Mg/2 Ml Vial) 4 mg IVPUSH Q8H PRN PRN Reason: Nausea and Vomiting Last Admin: 11/18/22 15:31 Dose: 4 mg Documented By: ELIOT Paroxetine HCl (Paroxetine Hcl 40 Mg Tablet) 40 mg PO BEDTIME [facility] Last Admin: 11/17/22 19:59 Dose: 40 mg Documented By: EVIN Pharmacy Consult (Consult Rx Perform Med Rec) 1 each MISCELLANE ONCE PRN PRN Reason: Consult order Prazosin HCl (Prazosin Hcl 1 Mg Capsule) 2 mg PO BEDTIME [facility]; Protocol Last Admin: 11/17/22 19:59 Dose: 2 mg Documented By: EVIN Prazosin HCl (Prazosin Hcl 5 Mg Capsule) 5 mg PO BEDTIME [facility]; Protocol Last Admin: 11/17/22 19:59 Dose: 5 mg Documented By: EVIN Sodium Chloride (0.9 % Sodium Chloride Flush 3 Ml Syringe) 3 ml IVFLUSH QSHIFT [facility] Last Admin: 11/18/22 08:00 Dose: 3 ml Documented By: JUSTUS Sumatriptan Succinate (Sumatriptan Succinate 25 Mg Tablet) 25 mg PO DAILY PRN PRN Reason: Migraine Headache Last Admin: 11/18/22 15:34 Dose: 25 mg Documented By: ELIOT Labs 11/18/22 06:57 11/18/22 06:57 Labs: Laboratory Results - last 24 hr 11/17/22 11/18/22 11/18/22 16:09 06:57 06:57 MCV 84.4 MCH 26.2 L MCHC 31.1 RDW 17.9 H Plt Count 385 MPV 10.5 Immature Gran % (Auto) 2.1 H Neut % (Auto) 89.9 H Lymph % (Auto) 3.[address] [place] % (Auto) 4.1 Eos % (Auto) 0.0 Baso % (Auto) 0.2 Lymph # (Auto) 1.[address] [place] # (Auto) 1.2 Eos # (Auto) 0.0 Baso # (Auto) 0.1 Abs Immat Gran (auto) 0.60 H Absolute Neuts (auto) 25.6 H Absolute Nucleated RBC 0.000 Nucleated RBC % (auto) 0.0 O2 Saturation ABG pH at Pt Temp ABG pCO2 at Pt Temp ABG pO2 at Pt Temp ABG HCO3 ABG Base Excess (Actual) VBG pH 7.47 H VBG pCO2 34 VBG pO2 126 VBG HCO3 25 VBG O2 Saturation 100.0 VBG Base Excess 2.3 Anion Gap 16 Estim Creat Clear Calc 110.8 Estimated GFR > 60 POC Glucose Random Glucose 220 H Calcium 9.1 11/18/22 11/18/22 11:07 11:25 MCV MCH MCHC RDW Plt Count MPV Immature Gran % (Auto) Neut % (Auto) Lymph % (Auto) [facility] % (Auto) Eos % (Auto) Baso % (Auto) Lymph # (Auto) [facility] # (Auto) Eos # (Auto) Baso # (Auto) Abs Immat Gran (auto) Absolute Neuts (auto) Absolute Nucleated RBC Nucleated RBC % (auto) O2 Saturation 92.0 ABG pH at Pt Temp 7.39 ABG pCO2 at Pt Temp 43 ABG pO2 at Pt Temp 66 L ABG HCO3 26 ABG Base Excess (Actual) 1.3 VBG pH VBG pCO2 VBG pO2 VBG HCO3 VBG O2 Saturation VBG Base Excess Anion Gap Estim Creat Clear Calc Estimated GFR POC Glucose 251 H Random Glucose Calcium Microbiology Microbiology Results: Microbiology 11/16/22 07:28 Blood Culture - Preliminary Blood - Venous No growth after 48 hours. 11/16/22 07:22 Blood Culture - Preliminary Blood - Venous No growth after 48 hours. Assessment and Plan (1) Multifocal pneumonia: Status: Acute (2) Acute and chronic respiratory failure with hypoxia: Status: Acute Plan 42-year-old female with known history of asthma that has worsened since COVID- 19 resulting in multiple admissions since the beginning of the year presents with similar asthma exacerbation picture. She states over the last week she has gotten more shortness of breath and [facility] office become more productive; she is not responding as well to outpatient therapies as usual. In the emergency room, chest x-ray consistent with multifocal pneumonia. S 1. Multifocal pneumonia (CPAP) - ceftriaxone/ azithromycin (3) - pulse dose Solu-Medrol; 60 mg IV q.6 hours times 24 hours then taper - DuoNebs q.4 hours while awake - CT negative; seen by critical care and given Lasix. Will follow response. If good response will DC steroids and treat with aggressive diuresis. 2.Acute on chronic respiratory failure with hypoxia - as above -auto CPAP at HS 3.Panic attacks /general anxiety disorder - continue outpatient therapies - adjust as indicated Full Code [facility] requires ongoing hospitalization to treat multifocal pneumonia with IV antibiotics Time Spent With Patient Time: Total time managing care of this patient today ____ minutes. Quality Stroke Does the patient have a stroke diagnosis?: No VTE Prior VTE?: No VTE Risk Level:: Medical - moderate - high VTE Device Contraindication: Treatment Not Indicated VTE Drug Contraindication: N/A - Med Ordered
[2022-11-18] MEDS: Omeprazole 20 MG CAPSULE.DR PO (17:35)
[2022-11-18] MEDS: hydrOXYzine HCL 50 MG TABLET PO ×2 (17:35→20:47)
[2022-11-18] MEDS: Prazosin HCL 5 MG CAPSULE PO (19:38)
[2022-11-18] MEDS: Prazosin HCL 1 MG CAPSULE 2 MG PO (19:38)
[2022-11-18] MEDS: Montelukast Sodium 10 MG TABLET PO (19:38)
[2022-11-18] MEDS: Mirtazapine 15 MG TABLET PO (19:38)
[2022-11-18] MEDS: PARoxetine HCL 40 MG TABLET PO (19:38)
[2022-11-18] MEDS: diphenhydrAMINE HCL 50 MG/ML VIAL IVPUSH (21:56)
[2022-11-18] MEDS: Furosemide 100 MG/10 ML VIAL 60 MG IVPUSH (22:24)
[2022-11-18] MEDS: HYDROmorphone HCl 0.5 MG/0.5 ML SYRINGE IVPUSH (22:24)
[2022-11-18 22:55] LABS: B Type Natriuretic Peptide 20 pg/mL (<100)
[2022-11-19] VITALS (14 sets, daily range): BP systolic 110–136; BP diastolic 60–75; PULSE 95–110; RESP 18–28; TEMP 36–36.4; O2SAT 91–98
--- NOTE | 2022-11-19 | ECG_ITS ---
Test Reason : cp Blood Pressure : / mmHG Vent. Rate : 000 BPM Atrial Rate : 000 BPM P-R Int : 000 ms QRS Dur : 000 ms QT Int : 000 ms P-R-T Axes : 000 000 000 degrees QTc Int : 000 ms No QRS complexes found, no ECG analysis possible When compared with ECG of 16-NOV-2022 06:07, Current undetermined rhythm precludes rhythm comparison, needs review Referred By: Kimmie Asif Electronically Signed By:
[2022-11-19] MEDS: Albuterol/Iprat 2.5/0.5MG 3 ML AMPUL.NEB INHALE ×7 (00:13→23:33)
[2022-11-19] MEDS: methylPREDNISolone Sod Succ 125 MG/2 ML VIAL 60 MG IVPUSH ×4 (00:51→18:03)
[2022-11-19] MEDS: Acetaminophen 325 MG TABLET 650 MG PO ×2 (05:05→15:54)
[2022-11-19] MEDS: NaPROXEN 500 MG TABLET PO (05:05)
[2022-11-19] MEDS: Omeprazole 20 MG CAPSULE.DR PO ×2 (05:06→15:54)
--- NOTE | 2022-11-19 06:33 | PC.NURSE ---
0600 hour: Patient complained of new onset chest pain indicated on left anterior chest. Vitals obtained, stable. Provider notified, orders for trops and EKG. EKG showing NSR, image Tigertexted to MD. Trops pending at this time. Handoff report given 0645.
--- NOTE | 2022-11-19 07:00 | CA_ITS ---
Transthoracic Echocardiogram Patient (Last, First, Middle): Gail Multani, Gender: Female Date of : 1980 Age: 42 Procedure Date: 11/19/2022 Procedure Type: Transthoracic Echocardiogram Location: [facility] [place] Height: 154.94 cm Weight: 109.32 kg BSA: 2.04 m2 Heart Rate: 111 bpm BP: 114 / 72 mmHg Prototype Machinist: SB Referring MD: Ashish Proctor MD [facility] Registrar: Tl Cervantes MD Symptoms: MORROW Study Quality: Adequate w contrast ECG Rhythm: Tachycardia Conclusions: - 1. Low normal LV ejection fraction of 50-55% with impaired relaxation filling pattern 2. Normal cardiac valvular Doppler 3. No gross pericardial effusion Findings Procedure Information Contrast agent, definity, is being given per protocol without apparent complications. The quality of the study was technically difficult. The study quality is limited by patients body habitus and lung artifact. Left Ventricle Normal left ventricular cavity size. There is normal left ventricular wall thickness. The left ventricular systolic function is low normal. The visually estimated ejection fraction is between 50-55%. Spectral Doppler is indicative of an impaired relaxation filling pattern. E/E prime ratio is between 8 and 15 consistent with indeterminate filling pressures. Right Ventricle Normal right ventricular cavity size and systolic function. Atria The left atrium is normal in size. Interatrial shunt cannot be excluded. The right atrium is normal in size. Aortic Valve Normal aortic valve structure and function. There is no aortic valve stenosis. There is no aortic valve regurgitation. Mitral Valve Likely normal mitral valve structure and function. There is trace mitral valve regurgitation. There is no mitral valve stenosis. Pulmonic Valve The pulmonic valve was not well visualized. Tricuspid Valve Likely normal tricuspid valve structure and function. Tricuspid regurgitation envelope is inadequate for calculation of right ventricular systolic pressure. Normal right atrial pressure. Great Vessels All visible segments of the aorta are normal in size. The pulmonary artery was not well visualized. There is no dilatation of the ascending aorta. Venous The inferior vena cava is normal in size and collapses greater than 50% with inspiration. Pericardium/Pleural There is no evidence of pericardial effusion. Prior Study Comparison No prior study available for comparison. Measurements 2D Linear Measurements IVSd: 0.92 0.6-0.9/0.6-1.0 cm LVIDd: 5.42 3.9-5.3/4.2-5.9 cm LVIDd Index: 2.66 2.4-3.2/2.2-3.1 cm/m2 LVIDs: 3.34 2.0-3.6 cm LVPWd: 0.55 0.7-1.1 cm LA Diam: 3.90 2.7-3.8/3.0-4.0 cm LAIDs Index: 1.91 1.5-2.3 cm/m2 LV Mass: 173.39 67-162/88-224 g LV Mass Index: 85.00 43-95/49-115 g/m2 LVOT Diam: 2.20 3.0+(-)1.3 cm 2D Systolic Function EF 4C: 48.30 >55% EF 2C: 57.90 >55% EF BiP: 54.20 >55% Mitral Valve MV Pk E: 0.92 MV PK A: 1.11 MV Decel Time: 175.00 E/A: 0.80 E'Lateral: 9.03 E'Medial: 8.27 E/E' Med: 11.10 E/E' Lat: 10.20 PHT: 51.00 MVA PHT: 4.31 Decel Moffat: 5.26 Aortic Valve AoV Pk Joey: 1.74 AoV Mn Joey: 1.24 AoV VTI: 0.32 AoV Pk Grad: 12.00 Aov Mn Grad: 7.00 LAMAR Cont.VTI: 3.12 LVOT LVOT Pk Joey: 1.47 LVOT Mn Joey: 0.90 LVOT VTI: 0.26 LVOT Pk Grad: 9.00 LVOT Mn Grad: 4.00 LVOT Diam: 2.20 LVOT Area: 3.80 Diastolic Function MV Pk E: 0.92 MV Pk A: 1.11 E/A: 0.80 E'Medial: 8.27 E/E' Med: 11.10 E' Laterial: 9.03 E/E' Lat: 10.20 Right Ventricle TAPSE (mm): 16.50 TVS' Joey: 17.50 Great Vessels Aorta Sinus of Valsalva: 3.30 2.0-3.5 cm Ao Asc: 3.20 2.1-3.4 cm Pulmonary Veins Pulm Vein S/D 1.50 Pulmonary Valve PV Pk Joey: 1.06 Peak PV Grad: 4.00 Updated in Other Vendor System with Status of Final Tl Cervantes MD electronically signed on 11/19/2022 1:46:29 PM with status of Final
[2022-11-19] MEDS: Fluticasone/Vilanterol 200/25 BLST.W.DEV 1 PUFF INHALE (08:02)
[2022-11-19 08:16] LABS: MANUAL DIFF FLAG NO
[2022-11-19 08:18] LABS: Basophils Percent Auto 0.1 % (0-2); Hematocrit 37.1 % (37.0-47.0); Hemoglobin 11.6 g/dl (12.0-16.0); Imm Gran Abs Auto 0.23 X10*3/uL (0.00-0.03); Imm Gran Pct Auto 1.3 % (0.0-0.4); Lymphocytes Absolute Auto 1.5 X10*3/uL (1.2-4.9); Lymphocytes Percent Auto 8.5 % (20-40); Mean Corpuscular HGB Conc 31.3 g/dl (31.0-35.0); Mean Corpuscular Hemoglobin 26.1 pg (27.0-33.0); Mean Corpuscular Volume 83.6 fL (80.0-98.0); Mean Platelet Volume 10.5 fL (9.4-12.3); Monocytes Absolute Auto 0.8 X10*3/uL (0.1-1.2); Monocytes Percent Auto 4.5 % (2-11); Neutrophils Percent Auto 85.6 % (45-73); Platelet Count 391 X10*3/uL (160-400); Red Blood Count 4.44 X10*6/uL (4.20-5.50); Red Cell Distribution Width 17.5 % (11.0-16.0); White Blood Count 17.5 X10*3/uL (4.8-10.8)
[2022-11-19 08:33] LABS: Anion Gap 19 (12-20); Blood Urea Nitrogen 17 mg/dL (9-16); Calcium 8.8 mg/dL (8.4-10.2); Carbon Dioxide 25 mmol/L (22-29); Chloride 98 mmol/L (96-108); Creatinine Clr Calc Pharmacy 97.8; Estimated Glomerular Filt Rate > 60; Glucose Random 314 mg/dL (60-115); Potassium 3.9 mmol/L (3.3-5.1); Sodium 138 mmol/L (135-145)
[2022-11-19 08:42] LABS: Troponin-I High Sensitivity < 2.7 ng/L (<3.5-17.0)
[2022-11-19] MEDS: hydrOXYzine HCL 50 MG TABLET PO ×3 (08:54→20:27)
[2022-11-19] MEDS: buPROPion HCl XL 300 MG TAB.ER.24H PO (08:54)
[2022-11-19] MEDS: Nicotine 21 MG PATCH.TD24 TRANSDERMA (08:54)
[2022-11-19] MEDS: 0.9 % Sodium Chloride Flush 3 ML SYRINGE IVFLUSH ×3 (08:55→20:29)
[2022-11-19] MEDS: Enoxaparin Sodium 40 MG/0.4 ML SYRINGE SUBCUT (13:54)
[2022-11-19] MEDS: cefTRIAXone sodium 1 GM in 0.9 % Sodium Chloride 50 ML IV (13:54)
[2022-11-19] MEDS: Furosemide 40 MG/4 ML VIAL IVPUSH (13:54)
[2022-11-19] MEDS: SUMAtriptan succinate 25 MG TABLET PO (14:28)
[2022-11-19] MEDS: Azithromycin 500 MG in 0.9 % Sodium Chloride 250 ML 125 MG IV (14:29)
--- NOTE | 2022-11-19 15:05 | MHC.CM.PN ---
EMR reviewed and per MD rounds, pt is not medically cleared for D/C with continued hypoxia and remains on hi-flow O2, and continues with IV ABX treatment for pneumonia. CM will continue to follow.
--- NOTE | 2022-11-19 15:15 | PC.NURSE ---
Assumed care of patient at this time.
--- NOTE | 2022-11-19 16:06 | P.PNIM_ITS ---
Subjective Subjective Date of Service: 11/19/22 Interval History: Improving. Able to titrate O2 to some extent Review of Systems Unable to obtain Physical Exam Vital Signs: Vital Signs: Last Vital Signs Temp 97.6 F 11/19/22 07:34 Pulse 103 H 11/19/22 15:25 Resp 21 H 11/19/22 15:25 BP 114/72 11/19/22 07:34 Pulse Ox 92 11/19/22 12:23 O2 Del Method High Flow Nasal C annula 11/19/22 12:23 O2 Flow Rate 40 11/19/22 12:23 FiO2 60 11/19/22 12:23 Oxygen Flow Rate 4 11/16/22 06:06 BMI result Body Mass Index 45.7 Const: Other: awake alert and oriented. Resting comfortably in bed able to speak in full sentences Resp: Other: diminished throughout with scattered expiratory wheeze Cardio: Other: no S4; positive S1-S2; no S3 murmurs rubs or gallops GI: Other: obese nontender nondistended. Normoacti Neuro: Other: cranial nerves 2-12 grossly intact as tested motor is 5/5 all extremities. Sensation is intact. Cognition appropria Extrem: Other: no edema bilaterally Objective Data Active Medications Acetaminophen (Acetaminophen 325 Mg Tablet) 650 mg PO Q6H PRN PRN Reason: Pain, Mild (Pain Scale 1-3) Last Admin: 11/19/22 15:54 Dose: 650 mg Documented By: ALESSANDRO Albuterol Sulfate (Albuterol Sulfate (0.083%) 2.5 Mg/3 Ml Vial.Neb) 2.5 mg INHALE Q6H PRN PRN Reason: wheezing Albuterol Sulfate (Albuterol Sulfate 90 Mcg 8 Gm Inhaler) 2 puff INHALE RQ6H [facility] Last Admin: 11/19/22 14:28 Dose: Not Given Documented By: KAT Non-Admin Reason: Duplicate Order Albuterol/Ipratropium (Albuterol/Iprat 2.5/0.5mg 3 Ml Ampul.Neb) 3 ml INHALE RQ4H [facility] Last Admin: 11/19/22 15:24 Dose: 3 ml Documented By: SHIVAM Bupropion HCl (Bupropion Hcl Xl 300 Mg Tab.Er.24h) 300 mg PO DAILY [facility] Last Admin: 11/19/22 08:54 Dose: 300 mg Documented By: KAT Enoxaparin Sodium (Enoxaparin Sodium 40 Mg/0.4 Ml Syringe) 40 mg SUBCUT Q24H [facility] Last Admin: 11/19/22 13:54 Dose: 40 mg Documented By: KAT Fluticasone/Vilanterol (Fluticasone/Vilanterol 200/25 Blst.W.Dev) 1 puff INHALE RDAILY [facility] Last Admin: 11/19/22 08:02 Dose: 1 puff Documented By: SHIVAM Hydroxyzine HCl (Hydroxyzine Hcl 50 Mg Tablet) 50 mg PO QID PRN PRN Reason: Anxiety Last Admin: 11/19/22 15:54 Dose: 50 mg Documented By: N-RIVLA Ceftriaxone Sodium 1 gm/ (Sodium Chloride) 50 mls @ 100 mls/hr IV Q24H [facility] Last Infusion: 11/19/22 14:32 Dose: 0 mls/hr Documented By: KAT Azithromycin 500 mg/ Sodium (Chloride) 250 mls @ 125 mls/hr IV Q24H [facility] Last Admin: 11/19/22 14:29 Dose: 125 mls/hr Documented By: KAT Methylprednisolone Sodium Succinate (Methylprednisolone Sod Succ 125 Mg/2 Ml Vial) 60 mg IVPUSH Q6H [facility] Last Admin: 11/19/22 13:54 Dose: 60 mg Documented By: KAT Mirtazapine (Mirtazapine 15 Mg Tablet) 15 mg PO BEDTIME [facility] Last Admin: 11/18/22 19:38 Dose: 15 mg Documented By: MASOOD Montelukast Sodium (Montelukast Sodium 10 Mg Tablet) 10 mg PO BEDTIME [facility] Last Admin: 11/18/22 19:38 Dose: 10 mg Documented By: MASOOD Naproxen (Naproxen 500 Mg Tablet) 500 mg PO DAILY PRN PRN Reason: Pain Last Admin: 11/19/22 05:05 Dose: 500 mg Documented By: MASOOD Nicotine (Nicotine 21 Mg Patch.Td24) 21 mg TRANSDERMA DAILY [facility] Last Admin: 11/19/22 08:54 Dose: 21 mg Documented By: KAT Omeprazole (Omeprazole 20 Mg Capsule.Dr) 20 mg PO BID@0630,1630 [facility] Last Admin: 11/19/22 15:54 Dose: 20 mg Documented By: ALESSANDRO Ondansetron HCl (Ondansetron Hcl 4 Mg/2 Ml Vial) 4 mg IVPUSH Q8H PRN PRN Reason: Nausea and Vomiting Last Admin: 11/18/22 15:31 Dose: 4 mg Documented By: ELIOT Paroxetine HCl (Paroxetine Hcl 40 Mg Tablet) 40 mg PO BEDTIME [facility] Last Admin: 11/18/22 19:38 Dose: 40 mg Documented By: MASOOD Pharmacy Consult (Consult Rx Perform Med Rec) 1 each MISCELLANE ONCE PRN PRN Reason: Consult order Prazosin HCl (Prazosin Hcl 1 Mg Capsule) 2 mg PO BEDTIME [facility]; Protocol Last Admin: 11/18/22 19:38 Dose: 2 mg Documented By: MASOOD Prazosin HCl (Prazosin Hcl 5 Mg Capsule) 5 mg PO BEDTIME [facility]; Protocol Last Admin: 11/18/22 19:38 Dose: 5 mg Documented By: MASOOD Sodium Chloride (0.9 % Sodium Chloride Flush 3 Ml Syringe) 3 ml IVFLUSH QSHIFT [facility] Last Admin: 11/19/22 16:06 Dose: 3 ml Documented By: ALESSANDRO Sumatriptan Succinate (Sumatriptan Succinate 25 Mg Tablet) 25 mg PO DAILY PRN PRN Reason: Migraine Headache Last Admin: 11/19/22 14:28 Dose: 25 mg Documented By: KAT Labs 11/19/22 07:18 11/19/22 07:18 Labs: Laboratory Results - last 24 hr 11/18/22 11/19/22 11/19/22 22:09 07:18 07:18 MCV 83.6 MCH 26.1 L MCHC 31.3 RDW 17.5 H Plt Count 391 MPV 10.5 Immature Gran % (Auto) 1.3 H Neut % (Auto) 85.6 H Lymph % (Auto) 8.5 L [place] % (Auto) 4.5 Eos % (Auto) 0.0 Baso % (Auto) 0.1 Lymph # (Auto) 1.5 [place] # (Auto) 0.8 Eos # (Auto) 0.0 Baso # (Auto) 0.0 Abs Immat Gran (auto) 0.23 H Absolute Neuts (auto) 15.0 H Absolute Nucleated RBC 0.000 Nucleated RBC % (auto) 0.0 Anion Gap 19 Estim Creat Clear Calc 97.8 Estimated GFR > 60 Random Glucose 314 H Calcium 8.8 B-Natriuretic Peptide 20 Assessment and Plan (1) Multifocal pneumonia: Status: Acute (2) Acute and chronic respiratory failure with hypoxia: Status: Acute Plan 42-year-old female with known history of asthma that has worsened since COVID- 19 resulting in multiple admissions since the beginning of the year presents with similar asthma exacerbation picture. She states over the last week she has gotten more shortness of breath and [facility] office become more productive; she is not responding as well to outpatient therapies as usual. In the emergency room, chest x-ray consistent with multifocal pneumonia. S 1. Multifocal pneumonia (CPAP) - ceftriaxone/ azithromycin (4) - pulse dose Solu-Medrol; 60 mg IV q.8 hours times 24 hours then taper - DuoNebs q.4 hours while awake 2.Acute on chronic respiratory failure with hypoxia - as above -auto CPAP at HS 3.Panic attacks /general anxiety disorder - continue outpatient therapies - adjust as indicated Full Code [facility] requires ongoing hospitalization to treat multifocal pneumonia with IV antibiotics Time Spent With Patient Time: Total time managing care of this patient today ____ minutes. Quality Stroke Does the patient have a stroke diagnosis?: No VTE Prior VTE?: No VTE Risk Level:: Medical - moderate - high VTE Device Contraindication: Treatment Not Indicated VTE Drug Contraindication: N/A - Med Ordered
[2022-11-19] MEDS: PARoxetine HCL 40 MG TABLET PO (20:27)
[2022-11-19] MEDS: Mirtazapine 15 MG TABLET PO (20:27)
[2022-11-19] MEDS: LORazepam 2 MG/ML VIAL 0.5 MG IVPUSH (20:28)
[2022-11-19] MEDS: Montelukast Sodium 10 MG TABLET PO (20:28)
[2022-11-19] MEDS: Prazosin HCL 5 MG CAPSULE PO (20:28)
[2022-11-19] MEDS: Prazosin HCL 1 MG CAPSULE 2 MG PO (20:28)
[2022-11-19] MEDS: polyethylene glycoL 3350 17 GM POWD.PACK PO (21:02)
[2022-11-20] VITALS (13 sets, daily range): BP systolic 108–148; BP diastolic 57–84; PULSE 91–107; RESP 16–24; TEMP 35.7–36.2; O2SAT 92–99
[2022-11-20] MEDS: methylPREDNISolone Sod Succ 125 MG/2 ML VIAL 60 MG IVPUSH ×3 (00:59→18:40)
[2022-11-20] MEDS: ondansetron HCL 4 MG/2 ML VIAL IVPUSH (03:37)
[2022-11-20] MEDS: Acetaminophen 325 MG TABLET 650 MG PO ×3 (03:43→15:57)
[2022-11-20] MEDS: hydrOXYzine HCL 50 MG TABLET PO ×4 (03:46→21:45)
[2022-11-20] MEDS: Albuterol/Iprat 2.5/0.5MG 3 ML AMPUL.NEB INHALE ×5 (04:17→19:17)
[2022-11-20] MEDS: Omeprazole 20 MG CAPSULE.DR PO ×2 (06:22→15:57)
[2022-11-20] MEDS: Fluticasone/Vilanterol 200/25 BLST.W.DEV 1 PUFF INHALE (07:57)
[2022-11-20] MEDS: buPROPion HCl XL 300 MG TAB.ER.24H PO (08:50)
[2022-11-20] MEDS: Nicotine 21 MG PATCH.TD24 TRANSDERMA (08:50)
[2022-11-20] MEDS: 0.9 % Sodium Chloride Flush 3 ML SYRINGE IVFLUSH ×3 (08:51→21:48)
[2022-11-20] MEDS: polyethylene glycoL 3350 17 GM POWD.PACK PO ×2 (09:59→21:44)
[2022-11-20] MEDS: NaPROXEN 500 MG TABLET PO (11:48)
[2022-11-20] MEDS: Azithromycin 500 MG in 0.9 % Sodium Chloride 250 ML 125 MG IV (12:28)
[2022-11-20] MEDS: Enoxaparin Sodium 40 MG/0.4 ML SYRINGE SUBCUT (15:04)
[2022-11-20] MEDS: cefTRIAXone sodium 1 GM in 0.9 % Sodium Chloride 50 ML IV (15:04)
--- NOTE | 2022-11-20 15:43 | P.PNIM_ITS ---
Subjective Subjective Date of Service: 11/20/22 Interval History: Slowly weaning down O2. Anxiety improved with hydroxyzine Review of Systems Unable to obtain Physical Exam Vital Signs: Vital Signs: Last Vital Signs Temp 97.2 F 11/20/22 11:28 Pulse 96 11/20/22 15:38 Resp 22 H 11/20/22 15:40 BP 133/66 11/20/22 11:28 Pulse Ox 97 11/20/22 11:28 O2 Del Method High Flow Nasal C annula 11/20/22 11:28 O2 Flow Rate 35 11/20/22 11:28 FiO2 40 11/20/22 11:28 Oxygen Flow Rate 4 11/16/22 06:06 BMI result Body Mass Index 45.7 Const: Other: awake alert and oriented. Resting comfortably in bed able to speak in full sentences Resp: Other: diminished throughout with scattered expiratory wheeze Cardio: Other: no S4; positive S1-S2; no S3 murmurs rubs or gallops GI: Other: obese nontender nondistended. Normoacti Neuro: Other: cranial nerves 2-12 grossly intact as tested motor is 5/5 all extremities. Sensation is intact. Cognition appropria Extrem: Other: no edema bilaterally Objective Data Active Medications Acetaminophen (Acetaminophen 325 Mg Tablet) 650 mg PO Q6H PRN PRN Reason: Pain, Mild (Pain Scale 1-3) Last Admin: 11/20/22 09:52 Dose: 650 mg Documented By: ILENAA Albuterol Sulfate (Albuterol Sulfate (0.083%) 2.5 Mg/3 Ml Vial.Neb) 2.5 mg INHALE Q6H PRN PRN Reason: wheezing Albuterol Sulfate (Albuterol Sulfate 90 Mcg 8 Gm Inhaler) 2 puff INHALE RQ6H REPLACED BY [facility] Last Admin: 11/20/22 15:36 Dose: Not Given Documented By: YARELI Non-Admin Reason: Duplicate Order Albuterol/Ipratropium (Albuterol/Iprat 2.5/0.5mg 3 Ml Ampul.Neb) 3 ml INHALE RQ4H REPLACED BY [facility] Last Admin: 11/20/22 15:37 Dose: 3 ml Documented By: YARELI Bupropion HCl (Bupropion Hcl Xl 300 Mg Tab.Er.24h) 300 mg PO DAILY REPLACED BY [facility] Last Admin: 11/20/22 08:50 Dose: 300 mg Documented By: ILEANA Enoxaparin Sodium (Enoxaparin Sodium 40 Mg/0.4 Ml Syringe) 40 mg SUBCUT Q24H REPLACED BY [facility] Last Admin: 11/20/22 15:04 Dose: 40 mg Documented By: ILEANA Fluticasone/Vilanterol (Fluticasone/Vilanterol 200/25 Blst.W.Dev) 1 puff INHALE RDAILY REPLACED BY [facility] Last Admin: 11/20/22 07:57 Dose: 1 puff Documented By: YARELI Glycerin (Glycerin Adult Supp.Rect) 1 supp ID BEDTIME PRN PRN Reason: Constipation Hydroxyzine HCl (Hydroxyzine Hcl 50 Mg Tablet) 50 mg PO QID PRN PRN Reason: Anxiety Last Admin: 11/20/22 15:18 Dose: 50 mg Documented By: ILEANA Ceftriaxone Sodium 1 gm/ (Sodium Chloride) 50 mls @ 100 mls/hr IV Q24H REPLACED BY [facility] Last Admin: 11/20/22 15:04 Dose: 100 mls/hr Documented By: ILEANA Azithromycin 500 mg/ Sodium (Chloride) 250 mls @ 125 mls/hr IV Q24H REPLACED BY [facility] Last Infusion: 11/20/22 15:20 Dose: 0 mls/hr Documented By: ILEANA Methylprednisolone Sodium Succinate (Methylprednisolone Sod Succ 125 Mg/2 Ml Vi al) 60 mg IVPUSH Q8H REPLACED BY [facility] Last Admin: 11/20/22 09:52 Dose: 60 mg Documented By: ILEANA Mirtazapine (Mirtazapine 15 Mg Tablet) 15 mg PO BEDTIME REPLACED BY [facility] Last Admin: 11/19/22 20:27 Dose: 15 mg Documented By: ALESSANDRO Montelukast Sodium (Montelukast Sodium 10 Mg Tablet) 10 mg PO BEDTIME REPLACED BY [facility] Last Admin: 11/19/22 20:28 Dose: 10 mg Documented By: ALESSANDRO Naproxen (Naproxen 500 Mg Tablet) 500 mg PO DAILY PRN PRN Reason: Pain Last Admin: 11/20/22 11:48 Dose: 500 mg Documented By: ILEANA Nicotine (Nicotine 21 Mg Patch.Td24) 21 mg TRANSDERMA DAILY REPLACED BY [facility] Last Admin: 11/20/22 08:50 Dose: 21 mg Documented By: ILEANA Omeprazole (Omeprazole 20 Mg Capsule.) 20 mg PO BID@0630,1630 REPLACED BY [facility] Last Admin: 11/20/22 06:22 Dose: 20 mg Documented By: ANH Ondansetron HCl (Ondansetron Hcl 4 Mg/2 Ml Vial) 4 mg IVPUSH Q8H PRN PRN Reason: Nausea and Vomiting Last Admin: 11/20/22 03:37 Dose: 4 mg Documented By: ANH Paroxetine HCl (Paroxetine Hcl 40 Mg Tablet) 40 mg PO BEDTIME [facility] Last Admin: 11/19/22 20:27 Dose: 40 mg Documented By: ALESSANDRO Pharmacy Consult (Consult Rx Perform Med Rec) 1 each MISCELLANE ONCE PRN PRN Reason: Consult order Polyethylene Glycol (Polyethylene Glycol 3350 17 Gm Powd.Pack) 17 gm PO BID PRN PRN Reason: Constipation Last Admin: 11/20/22 09:59 Dose: 17 gm Documented By: ILEANA Prazosin HCl (Prazosin Hcl 1 Mg Capsule) 2 mg PO BEDTIME [facility]; Protocol Last Admin: 11/19/22 20:28 Dose: 2 mg Documented By: ALESSANDRO Prazosin HCl (Prazosin Hcl 5 Mg Capsule) 5 mg PO BEDTIME [facility]; Protocol Last Admin: 11/19/22 20:28 Dose: 5 mg Documented By: ALESSANDRO Sodium Chloride (0.9 % Sodium Chloride Flush 3 Ml Syringe) 3 ml IVFLUSH QSHIFT REPLACED BY [facility] Last Admin: 11/20/22 08:51 Dose: 3 ml Documented By: ILEANA Sumatriptan Succinate (Sumatriptan Succinate 25 Mg Tablet) 25 mg PO DAILY PRN PRN Reason: Migraine Headache Last Admin: 11/19/22 14:28 Dose: 25 mg Documented By: LYRICMA Labs 11/19/22 07:18 11/19/22 07:18 Assessment and Plan (1) Multifocal pneumonia: Status: Acute (2) Acute and chronic respiratory failure with hypoxia: Status: Acute Plan 42-year-old female with known history of asthma that has worsened since COVID- 19 resulting in multiple admissions since the beginning of the year presents with similar asthma exacerbation picture. She states over the last week she has gotten more shortness of breath and [facility] office become more productive; she is not responding as well to outpatient therapies as usual. In the emergency room, chest x-ray consistent with multifocal pneumonia. S 1. Multifocal pneumonia (CPAP) - ceftriaxone/ azithromycin (5) - pulse dose Solu-Medrol; 60 mg IV q.8 hours times 24 hours then taper - DuoNebs q.4 hours while awake 2.Acute on chronic respiratory failure with hypoxia - as above -auto CPAP at HS 3.Panic attacks /general anxiety disorder - continue outpatient therapies - adjust as indicated Full Code [facility] requires ongoing hospitalization to treat multifocal pneumonia with IV antibiotics Time Spent With Patient Time: Total time managing care of this patient today ____ minutes. Quality Stroke Does the patient have a stroke diagnosis?: No VTE Prior VTE?: No VTE Risk Level:: Medical - moderate - high VTE Device Contraindication: Treatment Not Indicated VTE Drug Contraindication: N/A - Med Ordered
[2022-11-20] MEDS: Mirtazapine 15 MG TABLET PO (21:44)
[2022-11-20] MEDS: Prazosin HCL 1 MG CAPSULE 2 MG PO (21:44)
[2022-11-20] MEDS: PARoxetine HCL 40 MG TABLET PO (21:45)
[2022-11-20] MEDS: Montelukast Sodium 10 MG TABLET PO (21:45)
[2022-11-20] MEDS: Prazosin HCL 5 MG CAPSULE PO (21:46)
[2022-11-21] VITALS (12 sets, daily range): BP systolic 132–151; BP diastolic 72–78; PULSE 89–104; RESP 18–22; TEMP 35.7–36.7; O2SAT 92–98
[2022-11-21] MEDS: methylPREDNISolone Sod Succ 125 MG/2 ML VIAL 60 MG IVPUSH ×3 (00:09→16:31)
[2022-11-21] MEDS: LORazepam 2 MG/ML VIAL 0.5 MG IVPUSH (00:09)
[2022-11-21] MEDS: Albuterol/Iprat 2.5/0.5MG 3 ML AMPUL.NEB INHALE ×6 (00:25→19:41)
[2022-11-21] MEDS: Omeprazole 20 MG CAPSULE.DR PO ×2 (05:53→15:36)
[2022-11-21 07:26] LABS: MANUAL DIFF FLAG NO
[2022-11-21 07:32] LABS: Basophils Percent Auto 0.2 % (0-2); Eosinophils Percent Auto 0.1 % (0-4); Hematocrit 37.5 % (37.0-47.0); Hemoglobin 11.9 g/dl (12.0-16.0); Imm Gran Pct Auto 2.3 % (0.0-0.4); Lymphocytes Absolute Auto 1.9 X10*3/uL (1.2-4.9); Lymphocytes Percent Auto 10.6 % (20-40); Mean Corpuscular HGB Conc 31.7 g/dl (31.0-35.0); Mean Corpuscular Hemoglobin 25.8 pg (27.0-33.0); Mean Corpuscular Volume 81.3 fL (80.0-98.0); Mean Platelet Volume 10.2 fL (9.4-12.3); Monocytes Absolute Auto 0.7 X10*3/uL (0.1-1.2); Monocytes Percent Auto 4.2 % (2-11); Neutrophils Absolute Auto 14.4 x10*3/uL (2.0-8.3); Neutrophils Percent Auto 82.6 % (45-73); Platelet Count 403 X10*3/uL (160-400); Red Blood Count 4.61 X10*6/uL (4.20-5.50); Red Cell Distribution Width 16.7 % (11.0-16.0); White Blood Count 17.4 X10*3/uL (4.8-10.8)
[2022-11-21] MEDS: buPROPion HCl XL 300 MG TAB.ER.24H PO (08:16)
[2022-11-21 08:17] LABS: Alanine Aminotransferase 14 U/L (0-31); Albumin Level 3.4 g/dL (3.5-5.0); Alkaline Phosphatase 94 U/L (39-117); Anion Gap 17 (12-20); Aspartate Amino Transferase 8 U/L (5-31); Bilirubin Total 0.2 mg/dL (0.0-1.0); Blood Urea Nitrogen 20 mg/dL (9-16); Calcium 9.1 mg/dL (8.4-10.2); Carbon Dioxide 26 mmol/L (22-29); Chloride 96 mmol/L (96-108); Creatinine Clr Calc Pharmacy 113.8; Estimated Glomerular Filt Rate > 60; Glucose Random 368 mg/dL (60-115); Potassium 4.7 mmol/L (3.3-5.1); Sodium 134 mmol/L (135-145); Total Protein 6.3 g/dL (6.5-8.0)
[2022-11-21] MEDS: Nicotine 21 MG PATCH.TD24 TRANSDERMA (08:17)
[2022-11-21] MEDS: 0.9 % Sodium Chloride Flush 3 ML SYRINGE IVFLUSH ×3 (08:17→21:58)
[2022-11-21] MEDS: hydrOXYzine HCL 50 MG TABLET PO ×3 (08:17→21:57)
[2022-11-21] MEDS: Acetaminophen 325 MG TABLET 650 MG PO ×2 (08:17→16:30)
[2022-11-21] MEDS: Azithromycin 500 MG in 0.9 % Sodium Chloride 250 ML 125 MG IV (11:54)
--- NOTE | 2022-11-21 15:04 | P.PNIM_ITS ---
Subjective Subjective Date of Service: 11/21/22 Interval History: Continues to improve. Weaning high-flow O2 without issue Review of Systems Unable to obtain Physical Exam Vital Signs: Vital Signs: Last Vital Signs Temp 98 F 11/21/22 11:15 Pulse 95 11/21/22 11:15 Resp 20 11/21/22 11:27 BP 151/72 H 11/21/22 11:15 Pulse Ox 94 11/21/22 11:15 O2 Del Method High Flow Nasal C annula 11/21/22 11:15 O2 Flow Rate 35 11/21/22 11:15 FiO2 40 11/21/22 11:15 Oxygen Flow Rate 4 11/16/22 06:06 BMI result Body Mass Index 45.7 Const: Other: awake alert and oriented. Resting comfortably in bed able to speak in full sentences Resp: Other: diminished throughout with scattered expiratory wheeze Cardio: Other: no S4; positive S1-S2; no S3 murmurs rubs or gallops GI: Other: obese nontender nondistended. Normoacti Neuro: Other: cranial nerves 2-12 grossly intact as tested motor is 5/5 all extremities. Sensation is intact. Cognition appropria Extrem: Other: no edema bilaterally Objective Data Active Medications Acetaminophen (Acetaminophen 325 Mg Tablet) 650 mg PO Q6H PRN PRN Reason: Pain, Mild (Pain Scale 1-3) Last Admin: 11/21/22 08:17 Dose: 650 mg Documented By: ILEANA Albuterol Sulfate (Albuterol Sulfate (0.083%) 2.5 Mg/3 Ml Vial.Neb) 2.5 mg INHALE Q6H PRN PRN Reason: wheezing Albuterol Sulfate (Albuterol Sulfate 90 Mcg 8 Gm Inhaler) 2 puff INHALE RQ6H ON LICENSE OF [facility] Last Admin: 11/21/22 11:29 Dose: Not Given Documented By: YARELI Non-Admin Reason: Duplicate Order Albuterol/Ipratropium (Albuterol/Iprat 2.5/0.5mg 3 Ml Ampul.Neb) 3 ml INHALE RQ4H ON LICENSE OF [facility] Last Admin: 11/21/22 11:27 Dose: 3 ml Documented By: YARELI Bupropion HCl (Bupropion Hcl Xl 300 Mg Tab.Er.24h) 300 mg PO DAILY ON LICENSE OF [facility] Last Admin: 11/21/22 08:16 Dose: 300 mg Documented By: ILEANA Enoxaparin Sodium (Enoxaparin Sodium 40 Mg/0.4 Ml Syringe) 40 mg SUBCUT Q24H ON LICENSE OF [facility] Last Admin: 11/20/22 15:04 Dose: 40 mg Documented By: ILEANA Fluticasone/Vilanterol (Fluticasone/Vilanterol 200/25 Blst.W.Dev) 1 puff INHALE RDAILY ON LICENSE OF [facility] Last Admin: 11/21/22 07:50 Dose: Not Given Documented By: YARELI Non-Admin Reason: Patient Asleep Glycerin (Glycerin Adult Supp.Rect) 1 supp DC BEDTIME PRN PRN Reason: Constipation Hydroxyzine HCl (Hydroxyzine Hcl 50 Mg Tablet) 50 mg PO QID PRN PRN Reason: Anxiety Last Admin: 11/21/22 08:17 Dose: 50 mg Documented By: ILEANA Ceftriaxone Sodium 1 gm/ (Sodium Chloride) 50 mls @ 100 mls/hr IV Q24H ON LICENSE OF [facility] Last Infusion: 11/20/22 15:59 Dose: 0 mls/hr Documented By: ILEANA Azithromycin 500 mg/ Sodium (Chloride) 250 mls @ 125 mls/hr IV Q24H ON LICENSE OF [facility] Last Infusion: 11/21/22 13:59 Dose: 125 mls/hr Documented By: ILEANA Methylprednisolone Sodium Succinate (Methylprednisolone Sod Succ 125 Mg/2 Ml Vial) 60 mg IVPUSH Q8H ON LICENSE OF [facility] Last Admin: 11/21/22 08:17 Dose: 60 mg Documented By: ILEANA Mirtazapine (Mirtazapine 15 Mg Tablet) 15 mg PO BEDTIME [facility] Last Admin: 11/20/22 21:44 Dose: 15 mg Documented By: ENEDELIA Montelukast Sodium (Montelukast Sodium 10 Mg Tablet) 10 mg PO BEDTIME ON LICENSE OF [facility] Last Admin: 11/20/22 21:45 Dose: 10 mg Documented By: ENEDELIA Naproxen (Naproxen 500 Mg Tablet) 500 mg PO DAILY PRN PRN Reason: Pain Last Admin: 11/20/22 11:48 Dose: 500 mg Documented By: ILEANA Nicotine (Nicotine 21 Mg Patch.Td24) 21 mg TRANSDERMA DAILY ON LICENSE OF [facility] Last Admin: 11/21/22 08:17 Dose: 21 mg Documented By: ILEANA Omeprazole (Omeprazole 20 Mg Capsule.) 20 mg PO BID@0630,1630 ON LICENSE OF [facility] Last Admin: 11/21/22 05:53 Dose: 20 mg Documented By: ENEDELIA Ondansetron HCl (Ondansetron Hcl 4 Mg/2 Ml Vial) 4 mg IVPUSH Q8H PRN PRN Reason: Nausea and Vomiting Last Admin: 11/20/22 03:37 Dose: 4 mg Documented By: ANH Paroxetine HCl (Paroxetine Hcl 40 Mg Tablet) 40 mg PO BEDTIME [facility] Last Admin: 11/20/22 21:45 Dose: 40 mg Documented By: ENEDELIA Pharmacy Consult (Consult Rx Perform Med Rec) 1 each MISCELLANE ONCE PRN PRN Reason: Consult order Polyethylene Glycol (Polyethylene Glycol 3350 17 Gm Powd.Pack) 17 gm PO BID PRN PRN Reason: Constipation Last Admin: 11/20/22 21:44 Dose: 17 gm Documented By: ENEDELIA Prazosin HCl (Prazosin Hcl 1 Mg Capsule) 2 mg PO BEDTIME [facility]; Protocol Last Admin: 11/20/22 21:44 Dose: 2 mg Documented By: ENEDELIA Prazosin HCl (Prazosin Hcl 5 Mg Capsule) 5 mg PO BEDTIME [facility]; Protocol Last Admin: 11/20/22 21:46 Dose: 5 mg Documented By: ENEDELIA Sodium Chloride (0.9 % Sodium Chloride Flush 3 Ml Syringe) 3 ml IVFLUSH QSHIFT ON LICENSE OF [facility] Last Admin: 11/21/22 08:17 Dose: 3 ml Documented By: ILEANA Sumatriptan Succinate (Sumatriptan Succinate 25 Mg Tablet) 25 mg PO DAILY PRN PRN Reason: Migraine Headache Last Admin: 11/19/22 14:28 Dose: 25 mg Documented By: KAT Labs 11/21/22 07:21 11/21/22 07:21 Labs: Laboratory Results - last 24 hr 11/21/22 11/21/22 07:21 07:21 MCV 81.3 MCH 25.8 L MCHC 31.7 RDW 16.7 H Plt Count 403 H MPV 10.2 Immature Gran % (Auto) 2.3 H Neut % (Auto) 82.6 H Lymph % (Auto) 10.6 L [place] % (Auto) 4.2 Eos % (Auto) 0.1 Baso % (Auto) 0.2 Lymph # (Auto) 1.9 [place] # (Auto) 0.7 Eos # (Auto) 0.0 Baso # (Auto) 0.0 Abs Immat Gran (auto) 0.40 H Absolute Neuts (auto) 14.4 H Absolute Nucleated RBC 0.000 Nucleated RBC % (auto) 0.0 Anion Gap 17 Estim Creat Clear Calc 113.8 Estimated GFR > 60 Random Glucose 368 H* Calcium 9.1 Total Bilirubin 0.2 AST 8 ALT 14 Alkaline Phosphatase 94 Total Protein 6.3 L Albumin 3.4 L Microbiology Microbiology Results: Microbiology 11/16/22 07:28 Blood Culture - Final Blood - Venous No growth after 5 days. 11/16/22 07:22 Blood Culture - Final Blood - Venous No growth after 5 days. Assessment and Plan (1) Multifocal pneumonia: Status: Acute (2) Acute and chronic respiratory failure with hypoxia: Status: Acute (3) Generalized anxiety disorder: Status: Acute Plan 42-year-old female with known history of asthma that has worsened since COVID- 19 resulting in multiple admissions since the beginning of the year presents with similar asthma exacerbation picture. She states over the last week she has gotten more shortness of breath and [facility] office become more productive; she is not responding as well to outpatient therapies as usual. In the emergency room, chest x-ray consistent with multifocal pneumonia. 1. Multifocal pneumonia (CPAP) - ceftriaxone/ azithromycin (6) - pulse dose Solu-Medrol; 60 mg IV q.8 hours times 24 hours then taper - DuoNebs q.4 hours while awake 2.Acute on chronic respiratory failure with hypoxia - as above -auto CPAP at HS 3.Panic attacks /general anxiety disorder - continue outpatient therapies - adjust as indicated Full Code [facility] requires ongoing hospitalization to treat multifocal pneumonia with IV antibiotics Time Spent With Patient Time: Total time managing care of this patient today ____ minutes. Quality Stroke Does the patient have a stroke diagnosis?: No VTE Prior VTE?: No VTE Risk Level:: Medical - moderate - high VTE Device Contraindication: Treatment Not Indicated VTE Drug Contraindication: N/A - Med Ordered
[2022-11-21] MEDS: Enoxaparin Sodium 40 MG/0.4 ML SYRINGE SUBCUT (15:36)
[2022-11-21] MEDS: cefTRIAXone sodium 1 GM in 0.9 % Sodium Chloride 50 ML IV (15:37)
[2022-11-21] MEDS: polyethylene glycoL 3350 17 GM POWD.PACK PO (16:36)
--- NOTE | 2022-11-21 16:51 | P.CDIM_ITS ---
PROVIDER RESPONSE TEXT: To clarify, the appropriate diagnosis supported by the clinical indicators: Mild intermittent: With acute exacerbation QUERY TEXT: PHYSICIAN'S DOCUMENTATION REQUEST Date of Query: 11/17/2022 11:50 AM EDT Patient Name: Gail Multani Admit Date: 11/16/2022 Dear Joni Wallace, A review of the medical record indicates additional documentation may be needed. Please review below and update the documentation accordingly. The diagnosis of asthma was documented in the record on 11/16/22. Additional clinical indicators from the record include: known history of asthma inpatient stay for IV antibiotics/steroids to treat CAP in backdrop of chronic asthma Based on the above, please clarify in the Progress Notes further specificity regarding the type and a cuity of the asthma: Mild intermittent Please specify if with or without acute exacerbation or status asthmaticus Mild persistent Please specify if with or without acute exacerbation or status asthmaticus Moderate persistent Please specify if with or without acute exacerbation or status asthmaticus Severe persistent Please specify if with or without acute exacerbation or status asthmaticus Exercise induced Please specify if with or without acute exacerbation or status asthmaticus Chronic obstructive asthma and indicate if with acute lower respiratory infection Please specify if with or without acute exacerbation or status asthmaticus Asthma with underlying COPD and indicate if with acute lower respiratory infection Please specify if with or without acute exacerbation or status asthmaticus Other (explain)Clinically unable to determine (explain)Thank you, Perri Evans RN Use of terms such as suspected, likely, concern for, or probable (associated with a specific diagnosi s that is being evaluated, monitored, or treated as if it exists) are acceptable and can be coded in the inpatient se tting, when documented at the time of discharge. Please use your independent medical judgment in providing your response. THIS QUERY IS PART OF THE PERMANENT MEDICAL RECORD
--- NOTE | 2022-11-21 16:51 | P.CDIM_ITS ---
PROVIDER RESPONSE TEXT: To clarify, the appropriate diagnosis supported by the clinical indicators: Obesity Due to excess calories QUERY TEXT: PHYSICIAN'S DOCUMENTATION REQUEST Date of Query: 11/18/2022 08:50 AM EDT Patient Name: Gail Multani Admit Date: 11/16/2022 Dear Joni Wallace, A review of the medical record indicates additional documentation may be needed. Please review below and update the documentation accordingly. Clinical Indicators: Height: ( ) 5'1 Weight: ( ) 109.7 kg BMI: ( ) 45.7 Other Clinical Notes Supporting Significance of the BMI: If possible, please provide an associated diagnosis related to the abnormal BMI, such as: Overweight Obesity Due to excess calories Obesity Drug induced Obesity Due to other cause Specify the other cause Severe or Morbid Obesity With alveolar hypoventilation Severe or Morbid Obesity Without alveolar hypoventilation BMI is not significant Other (explain)Clinically unable to determine (explain)Thank you, Perri Evans RN Use of terms such as suspected, likely, concern for, or probable (associated with a specific diagnosi s that is being evaluated, monitored, or treated as if it exists) are acceptable and can be coded in the inpatient se tting, when documented at the time of discharge. Please use your independent medical judgment in providing your response. THIS QUERY IS PART OF THE PERMANENT MEDICAL RECORD
[2022-11-21] MEDS: Montelukast Sodium 10 MG TABLET PO (21:56)
[2022-11-21] MEDS: Prazosin HCL 1 MG CAPSULE 2 MG PO (21:57)
[2022-11-21] MEDS: PARoxetine HCL 40 MG TABLET PO (21:57)
[2022-11-21] MEDS: Mirtazapine 15 MG TABLET PO (21:57)
[2022-11-21] MEDS: Prazosin HCL 5 MG CAPSULE PO (21:57)
[2022-11-22] VITALS (10 sets, daily range): BP systolic 121–141; BP diastolic 71–91; PULSE 83–97; RESP 17–20; TEMP 35.7–37; O2SAT 93–98
[2022-11-22] MEDS: LORazepam 2 MG/ML VIAL 0.5 MG IVPUSH
[2022-11-22] MEDS: Albuterol/Iprat 2.5/0.5MG 3 ML AMPUL.NEB INHALE ×5 (00:15→19:40)
[2022-11-22] MEDS: methylPREDNISolone Sod Succ 125 MG/2 ML VIAL 60 MG IVPUSH (01:50)
[2022-11-22] MEDS: Omeprazole 20 MG CAPSULE.DR PO ×2 (06:14→16:23)
[2022-11-22] MEDS: buPROPion HCl XL 300 MG TAB.ER.24H PO (07:56)
[2022-11-22] MEDS: Nicotine 21 MG PATCH.TD24 TRANSDERMA (07:56)
[2022-11-22] MEDS: 0.9 % Sodium Chloride Flush 3 ML SYRINGE IVFLUSH ×2 (08:00→19:22)
--- NOTE | 2022-11-22 10:27 | P.PNIM_ITS ---
Subjective Subjective Date of Service: 11/22/22 Interval History: f/u resp ailure, pna interval history: no sob at this time Physical Exam Vital Signs: Vital Signs: Last Vital Signs Temp 96.6 F L 11/22/22 07:31 Pulse 88 11/22/22 07:31 Resp 17 11/22/22 07:31 BP 121/71 11/22/22 07:31 Pulse Ox 97 11/22/22 07:31 O2 Del Method Nasal Cannula 11/22/22 07:31 O2 Flow Rate 5 11/22/22 07:31 FiO2 35 11/21/22 19:02 Oxygen Flow Rate 4 11/16/22 06:06 BMI result Body Mass Index 45.7 Objective Data Active Medications Acetaminophen (Acetaminophen 325 Mg Tablet) 650 mg PO Q6H PRN PRN Reason: Pain, Mild (Pain Scale 1-3) Last Admin: 11/21/22 16:30 Dose: 650 mg Documented By: ILEANA Albuterol Sulfate (Albuterol Sulfate (0.083%) 2.5 Mg/3 Ml Vial.Neb) 2.5 mg INHALE Q6H PRN PRN Reason: wheezing Albuterol Sulfate (Albuterol Sulfate 90 Mcg 8 Gm Inhaler) 2 puff INHALE RQ6H [facility] Last Admin: 11/22/22 05:43 Dose: Not Given Documented By: YASIR Non-Admin Reason: Duplicate Order Albuterol/Ipratropium (Albuterol/Iprat 2.5/0.5mg 3 Ml Ampul.Neb) 3 ml INHALE RQ4H [facility] Last Admin: 11/22/22 07:42 Dose: Not Given Documented By: YARELI Non-Admin Reason: Patient Refused Bupropion HCl (Bupropion Hcl Xl 300 Mg Tab.Er.24h) 300 mg PO DAILY [facility] Last Admin: 11/22/22 07:56 Dose: 300 mg Documented By: IGNACIO Enoxaparin Sodium (Enoxaparin Sodium 40 Mg/0.4 Ml Syringe) 40 mg SUBCUT Q24H [facility] Last Admin: 11/21/22 15:36 Dose: 40 mg Documented By: ILEANA Fluticasone/Vilanterol (Fluticasone/Vilanterol 200/25 Blst.W.Dev) 1 puff INHALE RDAILY [facility] Last Admin: 11/22/22 07:42 Dose: Not Given Documented By: YARELI Non-Admin Reason: Patient Refused Glycerin (Glycerin Adult Supp.Rect) 1 supp [place] BEDTIME PRN PRN Reason: Constipation Hydroxyzine HCl (Hydroxyzine Hcl 50 Mg Tablet) 50 mg PO QID PRN PRN Reason: Anxiety Last Admin: 11/21/22 21:57 Dose: 50 mg Documented By: JAMES Ceftriaxone Sodium 1 gm/ (Sodium Chloride) 50 mls @ 100 mls/hr IV Q24H [facility] Last Infusion: 11/21/22 16:30 Dose: 0 mls/hr Documented By: ILEANA Azithromycin 500 mg/ Sodium (Chloride) 250 mls @ 125 mls/hr IV Q24H [facility] Last Infusion: 11/21/22 15:23 Dose: 0 mls/hr Documented By: ILEANA Mirtazapine (Mirtazapine 15 Mg Tablet) 15 mg PO BEDTIME [facility] Last Admin: 11/21/22 21:57 Dose: 15 mg Documented By: JAMES Montelukast Sodium (Montelukast Sodium 10 Mg Tablet) 10 mg PO BEDTIME [facility] Last Admin: 11/21/22 21:56 Dose: 10 mg Documented By: JAMES Naproxen (Naproxen 500 Mg Tablet) 500 mg PO DAILY PRN PRN Reason: Pain Last Admin: 11/20/22 11:48 Dose: 500 mg Documented By: ILEANA Nicotine (Nicotine 21 Mg Patch.Td24) 21 mg TRANSDERMA DAILY [facility] Last Admin: 11/22/22 07:56 Dose: 21 mg Documented By: IGNACIO Omeprazole (Omeprazole 20 Mg Capsule.Dr) 20 mg PO BID@0630,1630 [facility] Last Admin: 11/22/22 06:14 Dose: 20 mg Documented By: JAMES Ondansetron HCl (Ondansetron Hcl 4 Mg/2 Ml Vial) 4 mg IVPUSH Q8H PRN PRN Reason: Nausea and Vomiting Last Admin: 11/20/22 03:37 Dose: 4 mg Documented By: ANH Paroxetine HCl (Paroxetine Hcl 40 Mg Tablet) 40 mg PO BEDTIME [facility] Last Admin: 11/21/22 21:57 Dose: 40 mg Documented By: JAMES Pharmacy Consult (Consult Rx Perform Med Rec) 1 each MISCELLANE ONCE PRN PRN Reason: Consult order Polyethylene Glycol (Polyethylene Glycol 3350 17 Gm Powd.Pack) 17 gm PO BID PRN PRN Reason: Constipation Last Admin: 11/21/22 16:36 Dose: 17 gm Documented By: ILEANA Prazosin HCl (Prazosin Hcl 1 Mg Capsule) 2 mg PO BEDTIME [facility]; Protocol Last Admin: 11/21/22 21:57 Dose: 2 mg Documented By: JAMES Prazosin HCl (Prazosin Hcl 5 Mg Capsule) 5 mg PO BEDTIME [facility]; Protocol Last Admin: 11/21/22 21:57 Dose: 5 mg Documented By: JAMES Sodium Chloride (0.9 % Sodium Chloride Flush 3 Ml Syringe) 3 ml IVFLUSH QSHIFT [facility] Last Admin: 11/22/22 08:00 Dose: 3 ml Documented By: FOGARTDominguez Sumatriptan Succinate (Sumatriptan Succinate 25 Mg Tablet) 25 mg PO DAILY PRN PRN Reason: Migraine Headache Last Admin: 11/19/22 14:28 Dose: 25 mg Documented By: KAT Labs 11/21/22 07:21 11/21/22 07:21 Microbiology Microbiology Results: Microbiology 11/16/22 07:28 Blood Culture - Final Blood - Venous No growth after 5 days. 11/16/22 07:22 Blood Culture - Final Blood - Venous No growth after 5 days. Assessment and Plan (1) Multifocal pneumonia: Status: Acute (2) Acute and chronic respiratory failure with hypoxia: Status: Acute (3) Generalized anxiety disorder: Status: Acute Plan 42-year-old female with known history of asthma that has worsened since COVID-19 resulting in multiple admissions since the beginning of the year presents with similar asthma exacerbation picture. She states over the last week she has gotten more shortness of breath and [facility] office become more productive; she is not responding as well to outpatient therapies as usual. In the emergency room, chest x-ray consistent with multifocal pneumonia. 1. Multifocal pneumonia - ceftriaxone/ azithromycin (7) - Stop IV Solumedrol, Prednisone 20 daily - DuoNebs q.4 hours while awake 2.Acute on chronic respiratory failure with hypoxia -auto CPAP at HS, weight loss as there is component of hypOventilation, will benefit from outpatient sleep study 3.Panic attacks /general anxiety disorder - continue outpatient therapies - adjust as indicated Full Code [facility] requires ongoing hospitalization to treat multifocal pneumonia with IV antibiotics Time Spent With Patient Time: Total time managing care of this patient today ____ minutes. Quality Stroke Does the patient have a stroke diagnosis?: No VTE Prior VTE?: No VTE Risk Level:: Medical - moderate - high VTE Device Contraindication: Treatment Not Indicated VTE Drug Contraindication: N/A - Med Ordered
--- NOTE | 2022-11-22 13:03 | MHC.CM.PN ---
EMR reviewed and per MD rounds, pt medically cleared for D/C home with resumption of [facility]. family to transport.
[2022-11-22] MEDS: Enoxaparin Sodium 40 MG/0.4 ML SYRINGE SUBCUT (13:53)
[2022-11-22] MEDS: hydrOXYzine HCL 50 MG TABLET PO ×2 (13:54→21:04)
[2022-11-22] MEDS: Acetaminophen 325 MG TABLET 650 MG PO (19:21)
[2022-11-22] MEDS: Prazosin HCL 1 MG CAPSULE 2 MG PO (19:21)
[2022-11-22] MEDS: SUMAtriptan succinate 25 MG TABLET PO (19:21)
[2022-11-22] MEDS: Prazosin HCL 5 MG CAPSULE PO (19:21)
[2022-11-22] MEDS: Montelukast Sodium 10 MG TABLET PO (19:21)
[2022-11-22] MEDS: Mirtazapine 15 MG TABLET PO (19:21)
[2022-11-22] MEDS: PARoxetine HCL 40 MG TABLET PO (19:21)
[2022-11-22] MEDS: LORazepam 0.5 MG TABLET PO (23:28)
[2022-11-23] VITALS (10 sets, daily range): BP systolic 100–148; BP diastolic 57–90; PULSE 82–95; RESP 15–20; TEMP 36.2–37; O2SAT 92–100
[2022-11-23] MEDS: Albuterol/Iprat 2.5/0.5MG 3 ML AMPUL.NEB INHALE ×4 (04:51→19:39)
[2022-11-23] MEDS: Omeprazole 20 MG CAPSULE.DR PO ×2 (05:55→15:07)
[2022-11-23] MEDS: Fluticasone/Vilanterol 200/25 BLST.W.DEV 1 PUFF INHALE (07:36)
[2022-11-23] MEDS: buPROPion HCl XL 300 MG TAB.ER.24H PO (09:02)
[2022-11-23] MEDS: 0.9 % Sodium Chloride Flush 3 ML SYRINGE IVFLUSH ×3 (09:02→19:34)
[2022-11-23] MEDS: Nicotine 21 MG PATCH.TD24 TRANSDERMA (09:02)
--- NOTE | 2022-11-23 11:02 | HO.PM.IMPN ---
Subjective Subjective Date of Service: 11/23/22 Interval History: f/u resp ailure, pna interval history: no sob but desat markedly with any mild activity Physical Exam Vital Signs: Vital Signs: Last Vital Signs Temp 97.1 F 11/23/22 08:00 Pulse 82 11/23/22 08:00 Resp 20 11/23/22 08:00 BP 100/67 11/23/22 08:00 Pulse Ox 100 11/23/22 08:00 O2 Del Method Nasal Cannula 11/23/22 08:00 O2 Flow Rate 3 11/23/22 08:00 FiO2 35 11/21/22 19:02 Oxygen Flow Rate 4 11/16/22 06:06 BMI result Body Mass Index 45.7 Const: Other: awake alert and oriented. Resting comfortably in bed able to speak in full sentences Resp: Other: diminished throughout with scattered expiratory wheeze Cardio: Other: no S4; positive S1-S2; no S3 murmurs rubs or gallops GI: Other: obese nontender nondistended. Normoacti Neuro: Other: cranial nerves 2-12 grossly intact as tested motor is 5/5 all extremities. Sensation is intact. Cognition appropria Extrem: Other: no edema bilaterally Objective Data Active Medications Acetaminophen (Acetaminophen 325 Mg Tablet) 650 mg PO Q6H PRN PRN Reason: Pain, Mild (Pain Scale 1-3) Last Admin: 11/22/22 19:21 Dose: 650 mg Documented By: KAREN Albuterol Sulfate (Albuterol Sulfate (0.083%) 2.5 Mg/3 Ml Vial.Neb) 2.5 mg INHALE Q6H PRN PRN Reason: wheezing Albuterol Sulfate (Albuterol Sulfate 90 Mcg 8 Gm Inhaler) 2 puff INHALE RQ6H [facility] Last Admin: 11/23/22 10:50 Dose: Not Given Documented By: MARIBEL Non-Admin Reason: Duplicate Order Albuterol/Ipratropium (Albuterol/Iprat 2.5/0.5mg 3 Ml Ampul.Neb) 3 ml INHALE RQ4H [facility] Last Admin: 11/23/22 07:36 Dose: 3 ml Documented By: MARIBEL Bupropion HCl (Bupropion Hcl Xl 300 Mg Tab.Er.24h) 300 mg PO DAILY [facility] Last Admin: 11/23/22 09:02 Dose: 300 mg Documented By: IGNACIO Enoxaparin Sodium (Enoxaparin Sodium 40 Mg/0.4 Ml Syringe) 40 mg SUBCUT Q24H [facility] Last Admin: 11/22/22 13:53 Dose: 40 mg Documented By: IGNACIO Fluticasone/Vilanterol (Fluticasone/Vilanterol 200/25 Blst.W.Dev) 1 puff INHALE RDAILY [facility] Last Admin: 11/23/22 07:36 Dose: 1 puff Documented By: MARIBEL Glycerin (Glycerin Adult Supp.Rect) 1 supp ID BEDTIME PRN PRN Reason: Constipation Hydroxyzine HCl (Hydroxyzine Hcl 50 Mg Tablet) 50 mg PO QID PRN PRN Reason: Anxiety Last Admin: 11/22/22 21:04 Dose: 50 mg Documented By: KAREN Ceftriaxone Sodium 1 gm/ (Sodium Chloride) 50 mls @ 100 mls/hr IV Q24H [facility] Last Admin: 11/22/22 13:01 Dose: Not Given Documented By: IGNACIO Non-Admin Reason: No Access Comments: pt due to d/c Azithromycin 500 mg/ Sodium (Chloride) 250 mls @ 125 mls/hr IV Q24H [facility] Last Admin: 11/22/22 13:00 Dose: Not Given Documented By: IGNACIO Non-Admin Reason: No Access Comments: pt due to d/c Mirtazapine (Mirtazapine 15 Mg Tablet) 15 mg PO BEDTIME [facility] Last Admin: 11/22/22 19:21 Dose: 15 mg Documented By: KAREN Montelukast Sodium (Montelukast Sodium 10 Mg Tablet) 10 mg PO BEDTIME [facility] Last Admin: 11/22/22 19:21 Dose: 10 mg Documented By: KAREN Naproxen (Naproxen 500 Mg Tablet) 500 mg PO DAILY PRN PRN Reason: Pain Last Admin: 11/20/22 11:48 Dose: 500 mg Documented By: ILEANA Nicotine (Nicotine 21 Mg Patch.Td24) 21 mg TRANSDERMA DAILY [facility] Last Admin: 11/23/22 09:02 Dose: 21 mg Documented By: IGNACIO Omeprazole (Omeprazole 20 Mg Capsule.Dr) 20 mg PO BID@0630,1630 [facility] Last Admin: 11/23/22 05:55 Dose: 20 mg Documented By: KAREN Ondansetron HCl (Ondansetron Hcl 4 Mg/2 Ml Vial) 4 mg IVPUSH Q8H PRN PRN Reason: Nausea and Vomiting Last Admin: 11/20/22 03:37 Dose: 4 mg Documented By: ANH Paroxetine HCl (Paroxetine Hcl 40 Mg Tablet) 40 mg PO BEDTIME [facility] Last Admin: 11/22/22 19:21 Dose: 40 mg Documented By: KAREN Pharmacy Consult (Consult Rx Perform Med Rec) 1 each MISCELLANE ONCE PRN PRN Reason: Consult order Polyethylene Glycol (Polyethylene Glycol 3350 17 Gm Powd.Pack) 17 gm PO BID PRN PRN Reason: Constipation Last Admin: 11/21/22 16:36 Dose: 17 gm Documented By: ILEANA Prazosin HCl (Prazosin Hcl 1 Mg Capsule) 2 mg PO BEDTIME [facility]; Protocol Last Admin: 11/22/22 19:21 Dose: 2 mg Documented By: KAREN Prazosin HCl (Prazosin Hcl 5 Mg Capsule) 5 mg PO BEDTIME [facility]; Protocol Last Admin: 11/22/22 19:21 Dose: 5 mg Documented By: KAREN Sodium Chloride (0.9 % Sodium Chloride Flush 3 Ml Syringe) 3 ml IVFLUSH QSHIFT [facility] Last Admin: 11/23/22 09:02 Dose: 3 ml Documented By: IGNACIO Sumatriptan Succinate (Sumatriptan Succinate 25 Mg Tablet) 25 mg PO DAILY PRN PRN Reason: Migraine Headache Last Admin: 11/22/22 19:21 Dose: 25 mg Documented By: KAREN Labs 11/21/22 07:21 11/21/22 07:21 Assessment and Plan (1) Pulmonary edema: Status: Acute Plan 42-year-old female with known history of asthma that has worsened since COVID-19 resulting in multiple admissions since the beginning of the year presents with similar asthma exacerbation picture. She states over the last week she has gotten more shortness of breath and [facility] office become more productive; she is not responding as well to outpatient therapies as usual. In the emergency room, chest x-ray consistent with multifocal pneumonia. 1. Multifocal pneumonia - ceftriaxone/ azithromycin (8) - Prednisone 40 daily, stopped solu 11/22 - DuoNebs q.4 hours while awake 2.Acute on chronic respiratory failure with hypoxia -auto CPAP at HS, weight loss as there is component of hypOventilation, will benefit from outpatient sleep study, overnight O2 study 3.Panic attacks /general anxiety disorder - continue outpatient therapies - adjust as indicated Full Code Dwight requires ongoing hospitalization to treat multifocal pneumonia with IV antibiotics Time Spent With Patient Time: Total time managing care of this patient today ____ minutes. Quality Stroke Does the patient have a stroke diagnosis?: No VTE Prior VTE?: No VTE Risk Level:: Medical - moderate - high VTE Device Contraindication: Treatment Not Indicated VTE Drug Contraindication: N/A - Med Ordered
[2022-11-23] MEDS: hydrOXYzine HCL 50 MG TABLET PO ×2 (11:25→21:23)
[2022-11-23] MEDS: predniSONE 20 MG TABLET 40 MG PO (11:25)
[2022-11-23] MEDS: Acetaminophen 325 MG TABLET 650 MG PO ×2 (11:25→19:34)
[2022-11-23] MEDS: ondansetron HCL 4 MG/2 ML VIAL IVPUSH (11:25)
[2022-11-23] MEDS: Azithromycin 500 MG in 0.9 % Sodium Chloride 250 ML 125 MG IV (12:42)
[2022-11-23] MEDS: cefTRIAXone sodium 1 GM in 0.9 % Sodium Chloride 50 ML IV (14:48)
[2022-11-23] MEDS: Enoxaparin Sodium 40 MG/0.4 ML SYRINGE SUBCUT (14:48)
[2022-11-23] MEDS: Montelukast Sodium 10 MG TABLET PO (19:33)
[2022-11-23] MEDS: Prazosin HCL 5 MG CAPSULE PO (19:33)
[2022-11-23] MEDS: Prazosin HCL 1 MG CAPSULE 2 MG PO (19:33)
[2022-11-23] MEDS: NaPROXEN 500 MG TABLET PO (19:33)
[2022-11-23] MEDS: Mirtazapine 15 MG TABLET PO (19:34)
[2022-11-23] MEDS: PARoxetine HCL 40 MG TABLET PO (19:34)
[2022-11-23] MEDS: LORazepam 0.5 MG TABLET PO (23:01)
[2022-11-24 04:00] VITALS: BP 132/60; PULSE 78; RESP 20; TEMP 36.1; O2SAT 97
[2022-11-24] MEDS: Omeprazole 20 MG CAPSULE.DR PO (06:02)
--- NOTE | 2022-11-24 06:19 | PC.NURSE ---
Pt wearing sleep study set up by RT all shift. Increased anxiety, PRN atarax with no improvement. MD notified. 1x dose Ativan 0.5mg given with great effect. OOB to bedside commode as needed.
[2022-11-24 07:50] VITALS: BP 104/54; PULSE 86; RESP 20; TEMP 36.2; O2SAT 95
[2022-11-24] MEDS: Albuterol/Iprat 2.5/0.5MG 3 ML AMPUL.NEB INHALE ×2 (07:50→11:16)
[2022-11-24] MEDS: Fluticasone/Vilanterol 200/25 BLST.W.DEV 1 PUFF INHALE (07:50)
[2022-11-24 07:51] VITALS: PULSE 86; RESP 16; O2SAT 95
[2022-11-24] MEDS: buPROPion HCl XL 300 MG TAB.ER.24H PO (08:36)
[2022-11-24] MEDS: Nicotine 21 MG PATCH.TD24 TRANSDERMA (08:36)
[2022-11-24] MEDS: predniSONE 20 MG TABLET 40 MG PO (08:36)
[2022-11-24] MEDS: 0.9 % Sodium Chloride Flush 3 ML SYRINGE IVFLUSH (08:38)
--- NOTE | 2022-11-24 09:18 | PM.DS ---
DS: Providers Provider Date of Service: 11/24/22 Date of admission: 11/16/22 12:22 Primary care physician: Tatum Magdaleno MD Consults: 11/18/22 11:43 Consult to Critical Care Stat Consulting Provider: Ashish Proctor Reason for consultation: WOrsening respiratory failure Has provider been notified: Yes DS: Diagnosis Discharge Diagnosis (1) Pulmonary edema: Status: Resolved DS: Summary Hospital Course Hospital Course: Chief Complaint:? shortness of breath 42-year-old female with history of asthma, acute and chronic respiratory failure, depression/anxiety, disc herniation, migraines presenting to the emergency department with complaint of fever to 101 yesterday and shortness of breath.? States she wears O2 @ baseline with ambulation, has required O2 continuously.? Used her nebulizer at home without relief.? Has had cough productive of yellow sputum as well as sore throat and nausea.? Also complains of generalized body aches.? Denies any vomiting, diarrhea, constipation.? Denies known sick contacts. Since her initial contraction of COVID in March 2022, patient has had monthly admissions for asthma exacerbation.? This presentation is similar to past.? She responded well to 125 of Solu-Medrol along with DuoNeb therapy Hospital course: This patient with multiple medical probelms including asthma, anxiety, obesity, and chronic oxygen use since star covid in march 2022 and has been experiencing frequent hospitalizations and present on this occasion with shortness of breath and found to have multifocal infiltrate on CXR and CT. She has been treated for pneumonia with antibiotics for 9 days now, repeat CXR 11/24 shows continuing improvment. Overall has improved but continue to be hypoxic espeicall with activity. She was evaluated by Pulmonolist and recommended IV diuretic for component of fluid overload as well. COPD/Astham component was treated with bronchodilators and steroid, she now on oral steroid and will slowly urmila. Patient likely also has DANUTA and Hypoventilation and will likely benefit from sleep study on outpatient basis. Time Spent with Patient Time attestation: Total time managing care of this patient today ____ minutes. Discharge coordination time: Greater than 30 minutes Quality: Safe Use of Opioids Does Pt have an Active Cancer Diagnosis on the Problem List?: No Quality: Stroke Does the patient have a stroke diagnosis?: No Physical Exam Vital Signs: Vital Signs: Last Vital Signs Temp 97.1 F 11/24/22 07:50 Pulse 86 11/24/22 07:51 Resp 16 11/24/22 07:51 BP 104/54 L 11/24/22 07:50 Pulse Ox 95 11/24/22 07:50 O2 Del Method Room Air 11/24/22 07:50 O2 Flow Rate 2 11/24/22 04:00 FiO2 35 11/21/22 19:02 Oxygen Flow Rate 4 11/16/22 06:06 BMI result Body Mass Index 45.7 Discharge Plan Discharge Anticipated Discharge Date/Time: 11/24/22 09:14 Patient Disposition: Home Health Service Discharge Diagnosis: Acute on chronic respiratory failure, pneumonia, pulmonary edema Referrals: [facility] [Other] - 1 Week Tatum Magdaleno MD [Primary Care Provider] - 1 Week Discharge Medications: Continued albuterol sulfate 2.5 mg /3 mL (0.083 %) solution for nebulization 2.5 mg inhalation Q6H PRN (Reason: wheezing) riboflavin (vitamin B2) [Vitamin B-2] 100 mg tablet 200 mg PO Q12H sumatriptan succinate 25 mg tablet 25 mg PO DAILY PRN (Reason: Migraine Headache) gabapentin 400 mg capsule 800 mg PO BEDTIME hydroxyzine pamoate 50 mg capsule 50 mg PO QID PRN (Reason: Anxiety) prazosin [Minipress] 5 mg capsule 5 mg PO BEDTIME Rx Instructions: TAKE WITH 2MG nicotine (polacrilex) 4 mg gum 4 mg PO Q2H PRN (Reason: Nicotine Cravings) pantoprazole 40 mg tablet,delayed release (DR/EC) 40 mg PO BID triamcinolone acetonide 55 mcg aerosol,spray 1 spray intranasal DAILY nicotine 21 mg/24 hr patch 24 hour 1 patch topical DAILY montelukast 10 mg tablet 10 mg PO BEDTIME cyanocobalamin (vitamin B-12) 1,000 mcg tablet, sublingual 1,000 mcg sublingual DAILY mirtazapine 15 mg tablet 15 mg PO BEDTIME gabapentin 100 mg capsule 100 mg PO BID PRN (Reason: Pain) albuterol sulfate [Ventolin HFA] 90 mcg/actuation HFA aerosol inhaler 2 puff inhalation Q6H dicyclomine 10 mg capsule 20 mg PO Q8H PRN (Reason: Pain) prazosin 2 mg capsule 2 mg PO BEDTIME Rx Instructions: TAKE WITH 5MG bupropion HCl [Wellbutrin XL] 300 mg tablet extended release 24 hr 300 mg PO DAILY budesonide-formoterol [Symbicort] 160-4.5 mcg/actuation HFA aerosol inhaler 2 puff INHALATION BID acetaminophen [Tylenol] 325 mg Tablet 650 mg PO Q6H PRN (Reason: Pain) polyethylene glycol 3350 17 gram powder in packet 17 g PO DAILY PRN (Reason: Constipation) meloxicam 15 mg tablet 15 mg PO DAILY PRN (Reason: Pain) ondansetron HCl 4 mg tablet 4 mg PO Q8H PRN (Reason: nausea/vomiting) paroxetine HCl 40 mg tablet 40 mg PO BEDTIME No Action metformin 500 mg tablet 500 mg PO BID 30 Days Qty: 60 0RF prednisone 10 mg tablet See Taper PO DIRECTED Qty: 70 0RF Taper: Prednisone 40 mg daily for 7 Days and 0 Hour 30 mg daily for 7 Days and 0 Hour 20 mg daily for 7 Days and 0 Hour 10 mg daily for 7 Days and 0 Hour Rx Instructions: see taper instructions amoxicillin-pot clavulanate 875-125 mg tablet 1 tab PO BID 6 Days Qty: 12 0RF doxycycline hyclate 100 mg tablet 100 mg PO BID 6 Days Qty: 12 0RF (DME) FreeStyle Lite Strips Strip Qty: 100 0RF Rx Instructions: Test four times a day or as directed. (DME) blood-glucose meter [FreeStyle Lite Meter] Kit Qty: 1 0RF Rx Instructions: As Directed alcohol swabs Pads, Medicated 1 pad TOPICAL QIDACHS Qty: 100 0RF Rx Instructions: Use four times a day or as directed. (DME) lancets [FreeStyle Lancets] 28 gauge misc Qty: 100 0RF Rx Instructions: Test four times a day or as directed. Discharge Orders: Discharge Order (Routine); Ordered 11/24/22 Ordered By: Roger Vargas Diet: Advance to usual diet Activity on Discharge: As tolerated Stand Alone Forms: Patient Portal Discharge page Care Plan Goals: Full recovery from respiratory failure Health Concerns: chronic respiratoy failure, hypoventilation, DANUTA, pneumonia C Plan of Treatment: Take prednisone as directed Take Antibiotic Ceftin as directed for pneumonia follow up with your Doctor in a week, call for appointment Assessment: As above Discharge Date/Time: 11/24/22 15:00
[2022-11-24] MEDS: SUMAtriptan succinate 25 MG TABLET PO (10:54)
[2022-11-24] MEDS: ondansetron HCL 4 MG/2 ML VIAL IVPUSH (10:55)
[2022-11-24 11:17] VITALS: PULSE 88; RESP 16; O2SAT 95
[2022-11-24 11:38] VITALS: BP 94/58; PULSE 91; RESP 20; TEMP 36.2; O2SAT 98
--- NOTE | 2022-11-24 13:00 | MHC.CM.PN ---
Patient has been medically cleared for dc to home today with services. Patient is active with [facility], who has been made aware of today's dc.
[2022-11-24] MEDS: polyethylene glycoL 3350 17 GM POWD.PACK PO (13:57)
[2022-11-24] MEDS: Azithromycin 500 MG in 0.9 % Sodium Chloride 250 ML 125 MG IV (13:58)
[2022-11-24] MEDS: Enoxaparin Sodium 40 MG/0.4 ML SYRINGE SUBCUT (13:59)
--- NOTE | 2022-11-24 14:36 | MHC.CM.PN ---
CM set up Patient for 3PM [facility], the last/latest available Shuttle to to take Patient home TODAY. RN has now indicated that Patient must receive 2 IV ABT prior to going home and that will take past 5 PM today. RT has supplied Patient with a portable tank for the trip home (tricia's home O2 is supplied through [employer]). Patient is working on arranging her own transport to home.
--- NOTE | 2022-11-24 14:43 | MHC.CM.PN ---
Per RN, Patient will be going home at 3PM, via [facility] [place] [place] Shuttle.
== END 2022-11-24 15:00 | disposition home health service (06) | DRG 139 ==
LOC: HO.ED 10:10 → HO.EDOVER 12:29 → HO.S3 15:33 → HO.IMC 11-18 02:02
PROVIDERS: Internal Medicine; Registered Nurse Emergency; Admitting Provider Hospitalist; Emergency Provider Emergency Medicine; PCP Family Medicine; Visit Provider Internal Medicine
DX: J18.9 Pneumonia, unspecified organism (principal); J96.21 Acute and chronic respiratory failure with hypoxia; Z99.81 Dependence on supplemental oxygen; J45.21 Mild intermittent asthma with (acute) exacerbation; Z68.43 Body mass index [BMI] 50.0-59.9, adult; F33.9 Major depressive disorder, recurrent, unspecified; E66.2 Morbid (severe) obesity with alveolar hypoventilation; F41.1 Generalized anxiety disorder; Z20.822 Contact with and (suspected) exposure to COVID-19; Z79.899 Other long term (current) drug therapy
CPT/HCPCS: 36415; 36600; 71045; 71046; 71275; 80048; 80053; 81003; 82803; 82947; 83605; 83880; 84484; 85025; 87040; 87502; 87635; 87651; 93005; 93306; 94640; 94660; 99285; C1758; J0456; J0696; J1170; J1200; J1650; J1885; J1940; J2060; J2405; J2543; J2930; J3475; Q9957; Q9967

== ENCOUNTER → 2022-11-16 06:07 | Outpatient (BNV) | payer OTHER, SELFPAY | PROVIDERS: PCP Family Medicine; Visit Provider Internal Medicine Cardiovascular Disease | DX: R06.02 Shortness of breath (principal) | CPT/HCPCS: 93010 ==

== ENCOUNTER 2022-11-16 12:22 | Outpatient (BNV) | payer OTHER, SELFPAY | END 2022-11-19 07:00 | PROVIDERS: Admitting Provider Hospitalist; Emergency Provider Emergency Medicine; PCP Family Medicine; Visit Provider Internal Medicine Cardiovascular Disease | DX: R00.0 Tachycardia, unspecified (principal) | CPT/HCPCS: 93306 ==

== ENCOUNTER → 2022-11-16 12:22 | Outpatient (BNV) | payer OTHER, SELFPAY | PROVIDERS: Admitting Provider Hospitalist; Emergency Provider Emergency Medicine; PCP Family Medicine; Visit Provider Hospitalist | DX: J81.1 Chronic pulmonary edema (principal) | CPT/HCPCS: 99223; 99232; 99233; 99239; 99499 ==

== ENCOUNTER → 2022-11-16 12:22 | Outpatient (BNV) | payer OTHER, SELFPAY | PROVIDERS: Admitting Provider Hospitalist; Emergency Provider Emergency Medicine; PCP Family Medicine; Visit Provider Internal Medicine Pulmonary Disease | DX: J96.21 Acute and chronic respiratory failure with hypoxia (principal); J81.1 Chronic pulmonary edema | CPT/HCPCS: 99233 ==

== ENCOUNTER 2022-12-10 21:04 | Emergency (ER) | payer OTHER, SELFPAY ==
--- NOTE | ~2022-12-10 | XR_ITS ---
EXAMINATION: XR CHEST CLINICAL INFORMATION: Shortness of breath COMPARISON: 11/24/2022 TECHNIQUE: Frontal view of the chest was obtained. FINDINGS: Cardiac leads overlie the chest. The lungs are well expanded. Central vascular prominence. Bronchial wall thickening. No dense consolidation. No pleural effusion or pneumothorax. Cardiomediastinal silhouette is within normal limits. XR/XR chest 1V IMPRESSION: No dense consolidation. Central vascular prominence with bronchial wall thickening. This may represent fluid overload versus a small airways process.
[2022-12-10 21:13] VITALS: BP 140/69; BP 144/89; PULSE 100; PULSE 98; RESP 18; TEMP 37; O2SAT 97; O2SAT 98; BMI 50.5
--- NOTE | 2022-12-10 21:36 | ED.SOB ---
HPI - SOB/Dyspnea General Chief Complaint: Dyspnea Stated Complaint: DIFF BREATHING Time Seen by Provider: 12/10/22 21:30 Source: patient Mode of arrival: ambulatory Limitations: no limitations History of Present Illness HPI Narrative: Patient with History of asthma/COPD , anxiety comes here for increased shortness of breath it started yesterday with low-grade fever with cough uses oxygen 2 L home saturating 98% on arrival patient use a nebulizing treatment at home without much relief no other family member sick Related Data Home Medications Medication Instructions Recorded Confirmed acetaminophen 325 mg tablet 650 mg PO Q6H PRN Pain 11/16/22 11/16/22 (Tylenol) albuterol sulfate 2.5 mg/3 mL 2.5 mg inhalation Q6H PRN wheezing 11/16/22 11/16/22 (0.083 %) solution for nebulization albuterol sulfate 90 mcg/actuation 2 puff inhalation Q6H 11/16/22 11/16/22 aerosol inhaler (Ventolin HFA) budesonide-formoterol HFA 160 2 puff inhalation BID 11/16/22 11/16/22 mcg-4.5 mcg/actuation aerosol inhaler (Symbicort) bupropion HCl 300 mg 24 hr tablet, 300 mg PO DAILY 11/16/22 11/16/22 extended release (Wellbutrin XL) cyanocobalamin (vitamin B-12) 1,000 mcg sublingual DAILY 11/16/22 11/16/22 1,000 mcg sublingual tablet dicyclomine 10 mg capsule 20 mg PO Q8H PRN Pain 11/16/22 11/16/22 gabapentin 100 mg capsule 100 mg PO BID PRN Pain 11/16/22 11/16/22 gabapentin 400 mg capsule 800 mg PO BEDTIME 11/16/22 11/16/22 hydroxyzine pamoate 50 mg capsule 50 mg PO QID PRN Anxiety 11/16/22 11/16/22 meloxicam 15 mg tablet 15 mg PO DAILY PRN Pain 11/16/22 11/16/22 mirtazapine 15 mg tablet 15 mg PO BEDTIME 11/16/22 11/16/22 montelukast 10 mg tablet 10 mg PO BEDTIME 11/16/22 11/16/22 nicotine (polacrilex) 4 mg gum 4 mg PO Q2H PRN Nicotine Cravings 11/16/22 11/16/22 nicotine 21 mg/24 hr daily 1 patch topical DAILY 11/16/22 11/16/22 transdermal patch ondansetron HCl 4 mg tablet 4 mg PO Q8H PRN nausea/vomiting 11/16/22 11/16/22 pantoprazole 40 mg tablet,delayed 40 mg PO BID 11/16/22 11/16/22 release paroxetine HCl 40 mg tablet 40 mg PO BEDTIME 11/16/22 11/16/22 polyethylene glycol 3350 17 gram 17 g PO DAILY PRN Constipation 11/16/22 11/16/22 oral powder packet prazosin 2 mg capsule 2 mg PO BEDTIME 11/16/22 11/16/22 prazosin 5 mg capsule (Minipress) 5 mg PO BEDTIME 11/16/22 11/16/22 riboflavin (vitamin B2) 100 mg 200 mg PO Q12H 11/16/22 11/16/22 tablet (Vitamin B-2) sumatriptan succinate 25 mg tablet 25 mg PO DAILY PRN Migraine 11/16/22 11/16/22 Headache triamcinolone acetonide 55 mcg 1 spray intranasal DAILY 11/16/22 11/16/22 nasal spray aerosol Previous Rx's Medication Instructions Recorded cefuroxime axetil 500 mg tablet 500 mg PO BID 2 days #4 tabs 11/24/22 prednisone 10 mg tablet See Taper PO DIRECTED #30 tabs 11/24/22 cefuroxime axetil 500 mg tablet 500 mg PO BID 7 days #14 tabs 12/11/22 prednisone 20 mg tablet 40 mg PO DAILY #10 tabs 12/11/22 Allergies Allergy/AdvReac Type Severity Reaction Status Date / Time promethazine [From PHENERGAN] Allergy Unknown ITCHING Verified 07/13/22 17:36 codeine [CODEINE] AdvReac Unknown STOMACH Verified 07/13/22 17:36 UPSET morphine [MORPHINE] AdvReac Unknown MORE PAIN Verified 07/13/22 17:36 [facility] Past Medical History Medical History Asthma Depression Disc herniation Generalized anxiety disorder H. pylori infection Migraine Morbid obesity Recurrent major depression Sinus infection Surgical History History of Social History Social History Household Members: Spouse Housing: Apartment Do you presently have visiting nurse or other home services: No Alcohol intake: never Patient Tobacco Use Status: Never used Tobacco Tobacco use type: Cigarette Cigarette Packs Per Day: 2 Cigarettes Per Day: 5 Second Hand Smoke Exposure: Yes Advance Directives: Yes Advance Directives on File: Yes Advance Directives Date on File: 05/12/22 service: No Current occupational status: unemployed Physical Exam Vital Signs: Vital Signs: Last Vital Signs Temp 97.0 F 12/11/22 00:47 Pulse 91 12/11/22 01:13 Resp 22 H 12/11/22 01:13 BP 150/85 H 12/11/22 00:47 Pulse Ox 97 12/11/22 00:47 O2 Del Method Nasal Cannula 12/11/22 00:47 O2 Flow Rate 2 12/11/22 00:47 Oxygen Flow Rate 2 12/10/22 21:13 BMI result Body Mass Index 50.5 Appearance: Alert. Oriented X3. No acute distress. Eyes: PERRLA, ENT: Pharynx normal. Oral Mucosa moist Neck: Normal inspection. Neck supple. CVS: Normal heart rate and rhythm. Pulses normal. Respiratory: Mode respiratory distress. Equal air entry bilateral, bilateral wheezing+ Abdomen: Soft and nontender. Bowel sounds are present, no mass palpable, no CVA tenderness Skin: Skin warm and dry. Normal skin color. Normal skin turgor. Extremities: No lower extremity edema. No calf tenderness Neuro: Oriented X 3. No motor deficit. Medications Administered Discontinued Medications Generic Name Dose Route Start Last Admin Trade Name Boubacar PRN Reason Stop Dose Admin Albuterol Sulfate 7.5 mg 12/10/22 21:50 12/10/22 22:02 Albuterol Sulfate (0.083%) 2.5 Mg/3 Ml Vial.Neb INHALE 12/10/22 21:51 7.5 mg ONCE ONE Administration Albuterol Sulfate 5 mg 12/11/22 01:06 12/11/22 01:12 Albuterol Sulfate (0.083%) 2.5 Mg/3 Ml Vial.Neb INHALE 12/11/22 01:07 5 mg ONCE ONE Administration Albuterol/Ipratropium 3 ml 12/10/22 21:50 12/10/22 22:02 Albuterol/Iprat 2.5/0.5mg 3 Ml Ampul.Neb INHALE 12/10/22 21:51 3 ml ONCE ONE Administration Sodium Chloride 1,000 mls @ 999 mls/hr 12/10/22 21:50 12/10/22 23:54 Ns IV 12/10/22 22:50 Infused .Q1H1M ONE Infusion Magnesium Sulfate 2 gm in 50 mls @ 100 mls/hr 12/10/22 21:50 12/10/22 23:17 Magnesium Sulfate/H2o IV 12/10/22 22:19 Infused ONCE ONE Infusion Methylprednisolone Sodium Succinate 125 mg 12/10/22 21:50 12/10/22 22:17 Methylprednisolone Sod Succ 125 Mg/2 Ml Vial IVPUSH 12/10/22 21:51 125 mg ONCE ONE Administration Medical Decision Making Medical Decision Making [facility] Narrative: Patient with asthma with cough and wheezing workup is negative for any acute responded to nebulizing treatment labs are stable discharge patient home on prednisone and Ceftin advised to continue nebulizing treatment Differential Diagnosis Differential Diagnoses: The differential diagnosis associated with the presentation includes CHF/chronic bronchitis/asthma/sleep apnea Lab Data [facility] Lab Attestation statement: I reviewed the patient's lab results. 12/10/22 22:06 Labs: Lab Results 12/10/22 12/10/22 12/10/22 Range/Units 21:31 22:06 22:06 WBC 13.9 H (4.8-10.8) X10*3/uL RBC 4.25 (4.20-5.50) X10*6/uL Hgb 11.3 L (12.0-16.0) g/dl Hct 35.8 L (37.0-47.0) % MCV 84.2 (80.0-98.0) fL MCH 26.6 L (27.0-33.0) pg MCHC 31.6 (31.0-35.0) g/dl RDW 18.2 H (11.0-16.0) % Plt Count TNP MPV 11.0 (9.4-12.3) fL Immature Gran % (Auto) 0.4 (0.0-0.4) % Neut % (Auto) 67.5 (45-73) % Lymph % (Auto) 17.4 L (20-40) % Terrell % (Auto) 6.7 (2-11) % Eos % (Auto) 7.3 H (0-4) % Baso % (Auto) 0.7 (0-2) % Lymph # (Auto) 2.4 (1.2-4.9) X10*3/uL Terrell # (Auto) 0.9 (0.1-1.2) X10*3/uL Eos # (Auto) 1.0 H (0.0-0.4) X10*3/uL Baso # (Auto) 0.1 (0.0-0.2) X10*3/uL Abs Immat Gran (auto) 0.06 H (0.00-0.03) X10*3/uL Absolute Neuts (auto) 9.4 H (2.0-8.3) x10*3/uL Absolute Nucleated RBC 0.000 (0.0-0.012) X10*3/uL Nucleated RBC % (auto) 0.0 (0.0-0.2) /100WBC Smear Tech's Comments VERIFIED Sodium 139 (135-145) mmol/L Potassium 3.9 (3.3-5.1) mmol/L Chloride 106 (96-108) mmol/L Carbon Dioxide 24 (22-29) mmol/L Anion Gap 13 (12-20) BUN 10 (9-16) mg/dL Creatinine 0.64 (0.5-1.4) mg/dL Estim Creat Clear Calc 138.0 Estimated GFR > 60 Random Glucose 167 H (60-115) mg/dL Calcium 8.8 (8.4-10.2) mg/dL Total Bilirubin 0.3 (0.0-1.0) mg/dL AST 24 (5-31) U/L ALT 32 H (0-31) U/L Alkaline Phosphatase 112 (39-117) U/L B-Natriuretic Peptide (<100) pg/mL Total Protein 6.1 L (6.5-8.0) g/dL Albumin 3.3 L (3.5-5.0) g/dL Influenza Type A (PCR) NEGATIVE (Negative) Influenza Type B (PCR) NEGATIVE (Negative) RSV RNA Qual (PCR) NEGATIVE (Negative) SARS-CoV-2 RNA (RT-PCR) NEGATIVE (Negative) S. pyogenes GrpA KISHAN (Negative) 12/10/22 12/11/22 Range/Units 22:06 00:16 WBC (4.8-10.8) X10*3/uL RBC (4.20-5.50) X10*6/uL Hgb (12.0-16.0) g/dl Hct (37.0-47.0) % MCV (80.0-98.0) fL MCH (27.0-33.0) pg MCHC (31.0-35.0) g/dl RDW (11.0-16.0) % Plt Count MPV (9.4-12.3) fL Immature Gran % (Auto) (0.0-0.4) % Neut % (Auto) (45-73) % Lymph % (Auto) (20-40) % Terrell % (Auto) (2-11) % Eos % (Auto) (0-4) % Baso % (Auto) (0-2) % Lymph # (Auto) (1.2-4.9) X10*3/uL Terrell # (Auto) (0.1-1.2) X10*3/uL Eos # (Auto) (0.0-0.4) X10*3/uL Baso # (Auto) (0.0-0.2) X10*3/uL Abs Immat Gran (auto) (0.00-0.03) X10*3/uL Absolute Neuts (auto) (2.0-8.3) x10*3/uL Absolute Nucleated RBC (0.0-0.012) X10*3/uL Nucleated RBC % (auto) (0.0-0.2) /100WBC Smear Tech's Comments Sodium (135-145) mmol/L Potassium (3.3-5.1) mmol/L Chloride (96-108) mmol/L Carbon Dioxide (22-29) mmol/L Anion Gap (12-20) BUN (9-16) mg/dL Creatinine (0.5-1.4) mg/dL Estim Creat Clear Calc Estimated GFR Random Glucose (60-115) mg/dL Calcium (8.4-10.2) mg/dL Total Bilirubin (0.0-1.0) mg/dL AST (5-31) U/L ALT (0-31) U/L Alkaline Phosphatase (39-117) U/L B-Natriuretic Peptide 10 (<100) pg/mL Total Protein (6.5-8.0) g/dL Albumin (3.5-5.0) g/dL Influenza Type A (PCR) (Negative) Influenza Type B (PCR) (Negative) RSV RNA Qual (PCR) (Negative) SARS-CoV-2 RNA (RT-PCR) (Negative) S. pyogenes GrpA KISHAN Negative (Negative) Discharge Plan Discharge Clinical Impression: Asthma exacerbation, DANUTA (obstructive sleep apnea) Patient Disposition: Home, Self-Care Instructions: Asthma (ED), Sleep Apnea (DC) Additional Instructions: Continue nebulizing treatment and oxygen at home Antibiotic and prednisone as prescribed Follow with your PCP as needed Prescriptions: New prednisone 20 mg tablet 40 mg PO DAILY Qty: 10 0RF cefuroxime axetil 500 mg tablet 500 mg PO BID 7 Days Qty: 14 0RF No Action albuterol sulfate 2.5 mg /3 mL (0.083 %) solution for nebulization 2.5 mg inhalation Q6H PRN (Reason: wheezing) riboflavin (vitamin B2) [Vitamin B-2] 100 mg tablet 200 mg PO Q12H sumatriptan succinate 25 mg tablet 25 mg PO DAILY PRN (Reason: Migraine Headache) gabapentin 400 mg capsule 800 mg PO BEDTIME hydroxyzine pamoate 50 mg capsule 50 mg PO QID PRN (Reason: Anxiety) prazosin [Minipress] 5 mg capsule 5 mg PO BEDTIME Rx Instructions: TAKE WITH 2MG nicotine (polacrilex) 4 mg gum 4 mg PO Q2H PRN (Reason: Nicotine Cravings) pantoprazole 40 mg tablet,delayed release (DR/EC) 40 mg PO BID triamcinolone acetonide 55 mcg aerosol,spray 1 spray intranasal DAILY nicotine 21 mg/24 hr patch 24 hour 1 patch topical DAILY montelukast 10 mg tablet 10 mg PO BEDTIME cyanocobalamin (vitamin B-12) 1,000 mcg tablet, sublingual 1,000 mcg sublingual DAILY mirtazapine 15 mg tablet 15 mg PO BEDTIME gabapentin 100 mg capsule 100 mg PO BID PRN (Reason: Pain) albuterol sulfate [Ventolin HFA] 90 mcg/actuation HFA aerosol inhaler 2 puff inhalation Q6H dicyclomine 10 mg capsule 20 mg PO Q8H PRN (Reason: Pain) prazosin 2 mg capsule 2 mg PO BEDTIME Rx Instructions: TAKE WITH 5MG bupropion HCl [Wellbutrin XL] 300 mg tablet extended release 24 hr 300 mg PO DAILY budesonide-formoterol [Symbicort] 160-4.5 mcg/actuation HFA aerosol inhaler 2 puff INHALATION BID acetaminophen [Tylenol] 325 mg Tablet 650 mg PO Q6H PRN (Reason: Pain) polyethylene glycol 3350 17 gram powder in packet 17 g PO DAILY PRN (Reason: Constipation) meloxicam 15 mg tablet 15 mg PO DAILY PRN (Reason: Pain) ondansetron HCl 4 mg tablet 4 mg PO Q8H PRN (Reason: nausea/vomiting) paroxetine HCl 40 mg tablet 40 mg PO BEDTIME prednisone 10 mg tablet See Taper PO DIRECTED Qty: 30 0RF Taper: Prednisone 40 mg daily for 3 Days and 0 Hour 30 mg daily for 3 Days and 0 Hour 20 mg daily for 3 Days and 0 Hour 10 mg daily for 3 Days and 0 Hour Rx Instructions: see taper instructions cefuroxime axetil 500 mg tablet 500 mg PO BID 2 Days Qty: 4 0RF
[2022-12-10] MEDS: Albuterol Sulfate (0.083%) 2.5 MG/3 ML VIAL.NEB 7.5 MG INHALE (22:02)
[2022-12-10] MEDS: Albuterol/Iprat 2.5/0.5MG 3 ML AMPUL.NEB INHALE (22:02)
[2022-12-10 22:04] VITALS: PULSE 98; RESP 18; O2SAT 98
[2022-12-10] MEDS: methylPREDNISolone Sod Succ 125 MG/2 ML VIAL IVPUSH (22:17)
[2022-12-10] MEDS: 0.9 % Sodium Chloride 1,000 ML 999 ML IV (22:17)
[2022-12-10] MEDS: Magnesium Sulfate/H2O 2 GM/50 ML PIGGYBACK IV (22:17)
[2022-12-10 22:23] LABS: Influenza A PCR NEGATIVE (Negative); Influenza B PCR NEGATIVE (Negative); Resp Syncy Virus RNA Qual PCR NEGATIVE (Negative); SARS COV2 PCR INHOUSE NEGATIVE (Negative)
[2022-12-10 22:38] LABS: Alanine Aminotransferase 32 U/L (0-31); Albumin Level 3.3 g/dL (3.5-5.0); Alkaline Phosphatase 112 U/L (39-117); Anion Gap 13 (12-20); Aspartate Amino Transferase 24 U/L (5-31); Basophils Absolute Auto 0.1 X10*3/uL (0.0-0.2); Basophils Percent Auto 0.7 % (0-2); Bilirubin Total 0.3 mg/dL (0.0-1.0); Blood Urea Nitrogen 10 mg/dL (9-16); Calcium 8.8 mg/dL (8.4-10.2); Carbon Dioxide 24 mmol/L (22-29); Chloride 106 mmol/L (96-108); Eosinophils Percent Auto 7.3 % (0-4); Estimated Glomerular Filt Rate > 60; Glucose Random 167 mg/dL (60-115); Hematocrit 35.8 % (37.0-47.0); Hemoglobin 11.3 g/dl (12.0-16.0); Imm Gran Abs Auto 0.06 X10*3/uL (0.00-0.03); Imm Gran Pct Auto 0.4 % (0.0-0.4); Lymphocytes Absolute Auto 2.4 X10*3/uL (1.2-4.9); Lymphocytes Percent Auto 17.4 % (20-40); MANUAL DIFF FLAG SCAN; Mean Corpuscular HGB Conc 31.6 g/dl (31.0-35.0); Mean Corpuscular Hemoglobin 26.6 pg (27.0-33.0); Mean Corpuscular Volume 84.2 fL (80.0-98.0); Monocytes Absolute Auto 0.9 X10*3/uL (0.1-1.2); Monocytes Percent Auto 6.7 % (2-11); Neutrophils Absolute Auto 9.4 x10*3/uL (2.0-8.3); Neutrophils Percent Auto 67.5 % (45-73); PLT CLUMP 1; Potassium 3.9 mmol/L (3.3-5.1); Red Blood Count 4.25 X10*6/uL (4.20-5.50); Red Cell Distribution Width 18.2 % (11.0-16.0); SCAN SMEAR FLAG 1; Sodium 139 mmol/L (135-145); Total Protein 6.1 g/dL (6.5-8.0)
[2022-12-10 23:17] LABS: B Type Natriuretic Peptide 10 pg/mL (<100)
[2022-12-10 23:24] LABS: SLIDE REVIEW VERIFIED; White Blood Count 13.9 X10*3/uL (4.8-10.8)
[2022-12-11] VITALS: BP 136/84; PULSE 98; RESP 20; O2SAT 97
[2022-12-11 00:31] LABS: IDNOW Serial# 6674DD1D; Strep A Nucleic Acid Negative (Negative)
[2022-12-11 00:47] VITALS: BP 150/85; PULSE 100; RESP 22; TEMP 36.1; O2SAT 97
[2022-12-11] MEDS: Albuterol Sulfate (0.083%) 2.5 MG/3 ML VIAL.NEB 5 MG INHALE (01:12)
[2022-12-11 01:13] VITALS: PULSE 91; RESP 22; O2SAT 98
--- NOTE | 2022-12-11 01:38 | MHC.EDTECH ---
call out to gabriella at 013 to book transport for pt back home, estumated eta given was 0200
[2022-12-11] MEDS: LORazepam 2 MG/ML VIAL 1 MG IVPUSH (02:12)
== END 2022-12-11 02:38 | disposition home or self-care (01) ==
PROVIDERS: Student in an Organized Health Care Education/Training Program; Emergency Provider Internal Medicine; PCP Physician Assistant
DX: J45.901 Unspecified asthma with (acute) exacerbation (principal); G47.33 Obstructive sleep apnea (adult) (pediatric); R06.02 Shortness of breath; Z20.822 Contact with and (suspected) exposure to COVID-19; Z20.828 Contact with and (suspected) exposure to other viral communicable diseases; Z79.899 Other long term (current) drug therapy; Z87.891 Personal history of nicotine dependence
CPT/HCPCS: 0241U; 36415; 71045; 80053; 83880; 85025; 87651; 94640; 96365; 96375; 99284; J2060; J2930; J3475

== ENCOUNTER 2022-12-14 13:46 | Inpatient (IN) | payer OTHER, SELFPAY ==
[2022-12-14] VITALS (9 sets, daily range): BP systolic 124–149; BP diastolic 77–83; PULSE 85–94; RESP 16–22; TEMP 36.6–37.1; O2SAT 92–98; BMI 33.2
--- NOTE | ~2022-12-14 | CT_ITS ---
EXAMINATION: CT HEAD WITHOUT CONTRAST CT CERVICAL SPINE WITHOUT CONTRAST CLINICAL INFORMATION: Trauma. COMPARISON: 06/10/2019 TECHNIQUE: Contiguous axial imaging was performed from the skullbase to vertex without intravenous administration of contrast. This CT examination was performed using dose optimization techniques as appropriate, variously including the following: *Automated exposure control. *Adjustment of mA and/or kV according to patient size (this includes techniques or standardized protocols for targeted exams where dose is matched to indication/reason for exam; i.e. extremities or head). *Use of iterative reconstruction technique. DLP: 1321 mGy-cm FINDINGS: HEAD: Slight motion limits evaluation. The lateral, third and fourth ventricles are normally outlined. The cortical sulci and basal cisterns are normally outlined as well. There is no acute territorial defect, hemorrhage or midline shift. The extra-axial spaces are unremarkable. Calvarium: Intact. Maxillofacial Sinuses and Mastoids: Clear as visualized. CERVICAL SPINE: There is straightening of the expected cervical spine curvature. The disc spaces are maintained. The bone mineralization is normal. The vertebral body heights are maintained. There is no fracture. The soft tissues are unremarkable. There is a faint right upper lobe opacity. CT/CT head/brain wo IV con IMPRESSION: 1. No acute intracranial abnormality. 2. No cervical fracture. 3. Faint right upper lobe opacity. Consistent pneumonia.
--- NOTE | ~2022-12-14 | XR_ITS ---
EXAMINATION: XR CHEST CLINICAL INFORMATION: Shortness of breath. COMPARISON: 12/10/2022 and 11/24/2022 chest radiographs. Chest CTA dated 11/17/2022 TECHNIQUE: 2 views of the chest were obtained. FINDINGS: Patchy infiltrates are seen in the right lung the left lung appears clear. The heart and mediastinal structures are unremarkable. XR/XR chest 2V IMPRESSION: Asymmetric patchy infiltrates in the right lung representing interval worsening from the most recent radiographic study. The infiltrates have a similar appearance to the Ivana studies. Recurrent infectious/inflammatory pneumonia is suspected. Correlate clinically.
--- NOTE | ~2022-12-14 | CT_ITS ---
EXAMINATION: CT HEAD WITHOUT CONTRAST CT CERVICAL SPINE WITHOUT CONTRAST CLINICAL INFORMATION: Trauma. COMPARISON: 06/10/2019 TECHNIQUE: Contiguous axial imaging was performed from the skullbase to vertex without intravenous administration of contrast. This CT examination was performed using dose optimization techniques as appropriate, variously including the following: *Automated exposure control. *Adjustment of mA and/or kV according to patient size (this includes techniques or standardized protocols for targeted exams where dose is matched to indication/reason for exam; i.e. extremities or head). *Use of iterative reconstruction technique. DLP: 1321 mGy-cm FINDINGS: HEAD: Slight motion limits evaluation. The lateral, third and fourth ventricles are normally outlined. The cortical sulci and basal cisterns are normally outlined as well. There is no acute territorial defect, hemorrhage or midline shift. The extra-axial spaces are unremarkable. Calvarium: Intact. Maxillofacial Sinuses and Mastoids: Clear as visualized. CERVICAL SPINE: There is straightening of the expected cervical spine curvature. The disc spaces are maintained. The bone mineralization is normal. The vertebral body heights are maintained. There is no fracture. The soft tissues are unremarkable. There is a faint right upper lobe opacity. CT/CT cervical spine wo IV con IMPRESSION: 1. No acute intracranial abnormality. 2. No cervical fracture. 3. Faint right upper lobe opacity. Consistent pneumonia.
--- NOTE | 2022-12-14 13:52 | ED.SOB ---
HPI - SOB/Dyspnea General Chief Complaint: General Medical Stated Complaint: sob/dizziness Time Seen by Provider: 12/14/22 16:21 Source: patient Mode of arrival: ambulatory Limitations: no limitations History of Present Illness HPI Narrative: 42 yold female presents to the ED for coughing, shortness of breath, wheezing and bodyaches. patient states she was seen here 4 days ago for the same symptoms, but has not been able to fill her prescription. Patient has been without her steroids and antibiotics for 4 days. she was informed by her pharmacy that they would deliver her meds to her home tomorrow morning. patient denies any leg swelilng, calf pain, pluerisy, recent long travel, or recent surgery. Patient states yesterday she fell due to slinger sequins over her nasal canuli and she fell unto her head. patient denies any loss of conscisouness. Patient 02 depedent Related Data Home Medications Medication Instructions Recorded Confirmed acetaminophen 325 mg tablet 650 mg PO Q6H PRN Pain 11/16/22 12/14/22 (Tylenol) albuterol sulfate 2.5 mg/3 mL 2.5 mg inhalation Q6H PRN wheezing 11/16/22 12/14/22 (0.083 %) solution for nebulization albuterol sulfate 90 mcg/actuation 2 puff inhalation Q6H 11/16/22 12/14/22 aerosol inhaler (Ventolin HFA) budesonide-formoterol HFA 160 2 puff inhalation BID 11/16/22 12/14/22 mcg-4.5 mcg/actuation aerosol inhaler (Symbicort) bupropion HCl 300 mg 24 hr tablet, 300 mg PO DAILY 11/16/22 12/14/22 extended release (Wellbutrin XL) cyanocobalamin (vitamin B-12) 1,000 mcg sublingual DAILY 11/16/22 12/14/22 1,000 mcg sublingual tablet dicyclomine 10 mg capsule 20 mg PO Q8H PRN Pain 11/16/22 12/14/22 gabapentin 100 mg capsule 100 mg PO BID PRN Pain 11/16/22 12/14/22 gabapentin 400 mg capsule 800 mg PO BEDTIME 11/16/22 12/14/22 hydroxyzine pamoate 50 mg capsule 50 mg PO QID PRN Anxiety 11/16/22 12/14/22 meloxicam 15 mg tablet 15 mg PO DAILY PRN Pain 11/16/22 12/14/22 mirtazapine 15 mg tablet 15 mg PO BEDTIME 11/16/22 12/14/22 montelukast 10 mg tablet 10 mg PO BEDTIME 11/16/22 12/14/22 nicotine (polacrilex) 4 mg gum 4 mg PO Q2H PRN Nicotine Cravings 11/16/22 12/14/22 nicotine 21 mg/24 hr daily 1 patch topical DAILY 11/16/22 12/14/22 transdermal patch ondansetron HCl 4 mg tablet 4 mg PO Q8H PRN nausea/vomiting 11/16/22 12/14/22 pantoprazole 40 mg tablet,delayed 40 mg PO BID 11/16/22 12/14/22 release paroxetine HCl 40 mg tablet 40 mg PO BEDTIME 11/16/22 12/14/22 polyethylene glycol 3350 17 gram 17 g PO DAILY PRN Constipation 11/16/22 12/14/22 oral powder packet prazosin 2 mg capsule 2 mg PO BEDTIME 11/16/22 12/14/22 prazosin 5 mg capsule (Minipress) 5 mg PO BEDTIME 11/16/22 12/14/22 riboflavin (vitamin B2) 100 mg 200 mg PO Q12H 11/16/22 12/14/22 tablet (Vitamin B-2) sumatriptan succinate 25 mg tablet 25 mg PO DAILY PRN Migraine 11/16/22 12/14/22 Headache triamcinolone acetonide 55 mcg 1 spray intranasal DAILY 11/16/22 12/14/22 nasal spray aerosol Previous Rx's Medication Instructions Recorded cefuroxime axetil 500 mg tablet 500 mg PO BID 7 days #14 tabs 12/11/22 prednisone 20 mg tablet 40 mg PO DAILY #10 tabs 12/11/22 Allergies Allergy/AdvReac Type Severity Reaction Status Date / Time promethazine [From PHENERGAN] Allergy Unknown ITCHING Verified 12/14/22 13:52 codeine [CODEINE] AdvReac Unknown STOMACH Verified 12/14/22 13:52 UPSET morphine [MORPHINE] AdvReac Unknown MORE PAIN Verified 12/14/22 13:52 Review of Systems Review of Systems: coughign, wheezing, Yes all other systems are reviewed and are negative PMFSH Past Medical History Medical History Asthma Depression Disc herniation Generalized anxiety disorder H. pylori infection Migraine Morbid obesity Recurrent major depression Sinus infection Surgical History History of Social History Social History Household Members: Spouse Housing: Apartment Do you presently have visiting nurse or other home services: No Alcohol intake: never Patient Tobacco Use Status: Never used Tobacco Tobacco use type: Cigarette Cigarette Packs Per Day: 2 Cigarettes Per Day: 5 Smoked in Last 30 Days: No Second Hand Smoke Exposure: Yes Use of substances other than those prescribed or required for medical reasons: No Advance Directives: Yes Advance Directives on File: Yes Advance Directives Date on File: 05/12/22 service: No Current occupational status: unemployed Physical Exam Vital Signs: Vital Signs: Last Vital Signs Temp 98.6 F 12/14/22 23:44 Pulse 94 12/14/22 23:44 Resp 18 12/14/22 23:44 BP 148/83 H 12/14/22 23:44 Pulse Ox 96 12/14/22 23:44 O2 Del Method Nasal Cannula 12/14/22 23:44 O2 Flow Rate 2 12/14/22 23:44 Oxygen Flow Rate 3 12/14/22 13:53 BMI result Body Mass Index 33.2 Const: General: cooperative, healthy appearing, comfortable, no acute distress, well developed, alert and awake Orientation/consciousness: oriented to person, oriented to place, oriented to time and patient oriented x3 HEENT: Head: Yes normal to inspection, Yes No palpable skull fracture present, Yes normocephalic and Yes atraumatic Ears: hearing grossly normal bilaterally, external ears normal, TM's normal bilaterally, TM normal on the right, TM normal on the left, EAC's normal, mastoids normal and no periauricular adenopathy Teeth and gingiva: dentition normal Throat: Yes posterior oropharynx normal, Yes tonsils normal and Yes uvula midline Eyes: General: appearance normal, both eyes and all related structures Neck: Neck: Yes normal visual inspection, Yes full ROM, Yes no lymphadenopathy, Yes no meningeal signs, Yes trachea midline, Yes supple, No anterior neck swelling and No tender Chest: Chest palpation & inspection: normal inspection of the chest and normal palpation of entire chest wall Resp: Effort & Inspection: normal respiratory effort and able to speak in complete sentences Auscultation: wheezes expiratory wheezes and diminished lung sounds Cardio: Jugular venous distension: no JVD Heart sounds: S1 normal heart sound present and S2 normal heart sound present GI: Inspection: Yes normal to inspection and No abdominal wall ecchymosis Palpation (GI): Soft to palpation, not firm, nontender, no guarding and not rigid : General: No CVA tenderness and Yes no CVA tenderness Back/Spine/Pelvis: Back: no CVA tenderness, No CVA tenderness and No back tenderness Skin: General skin exam: no rashes or lesions noted, elasticity normal and turgor normal Neuro: General: oriented to person, oriented to place, oriented to time, patient oriented x3, gait normal, tone normal, moves all extremities, Normal light touch and pain sensation, no meningeal signs, no focal motor deficits, CN's II-XI intact bilaterally and normal sensation to monofilament Extrem: Other: bilataeral lower extremities negative for swelling, pitting edema, or calf tenderness General: Yes normal to inspection and Yes full ROM Psych: Appearance: grossly normal, well kempt and not disheveled Course Course Course Narrative: RME: 42yo F w/PMHx Asthma-COPD on 2L NC baseline, bronchitis, presenting to the ED via EMS c/o asthma exacerbation & CP x2 days. Patient has recently seen in our ED on 12/10/22 diagnosed asthma exacerbation sent home with Prednisone and Ceftin however never recieved the medications. Also reports feeling dizzy w/ fall 1 day ago, falling on chest w/+head injury. Denies LOC or taking AC EKG, labs, CXR, Duoneb ordered Full HPI, ROS and PE to be performed by primary ED provider. Medications Administered Generic Name Dose Route Start Last Admin Trade Name Freq PRN Reason Stop Dose Admin Enoxaparin Sodium 40 mg 12/14/22 22:00 12/14/22 22:20 Enoxaparin Sodium 40 Mg/0.4 Ml Syringe SUBCUT 40 mg Q24H KRYSTLE Administration Cefepime HCl 2 gm/ Sodium 50 mls @ 100 mls/hr 12/14/22 23:00 12/14/22 22:29 Chloride IV 100 mls/hr Q8H KRYSTLE Administration Methylprednisolone Sodium Succinate 40 mg 12/14/22 22:00 12/14/22 22:24 Methylprednisolone Sod Succ 40 Mg/Ml Vial IVPUSH 40 mg Q12H KRYSTLE Administration Sodium Chloride 3 ml 12/15/22 00:00 12/15/22 00:15 0.9 % Sodium Chloride Flush 3 Ml Syringe IVFLUSH Not Given QSHIFT KRYSTLE Discontinued Medications Generic Name Dose Route Start Last Admin Trade Name Boubacar PRN Reason Stop Dose Admin Acetaminophen 650 mg 12/14/22 18:04 12/14/22 18:49 Acetaminophen 325 Mg Tablet PO 12/14/22 18:05 650 mg ONCE ONE Administration Albuterol Sulfate 10 mg 12/14/22 16:33 12/14/22 16:50 Albuterol Sulfate (0.083%) 2.5 Mg/3 Ml Vial.Neb INHALE 12/14/22 16:34 10 mg ONCE ONE Administration Albuterol/Ipratropium 3 ml 12/14/22 17:31 12/14/22 18:10 Albuterol/Iprat 2.5/0.5mg 3 Ml Ampul.Neb INHALE 12/14/22 17:32 3 ml ONCE ONE Administration Cefuroxime Axetil 500 mg 12/14/22 16:35 12/14/22 16:42 Cefuroxime Axetil 500 Mg Tablet PO 12/14/22 16:36 500 mg ONCE ONE Administration Magnesium Sulfate 2 gm in 50 mls @ 25 mls/hr 12/14/22 18:15 12/14/22 19:07 Magnesium Sulfate/H2o IV 12/14/22 20:14 25 mls/hr ONCE ONE Administration Vancomycin HCl 2,000 mg in 500 mls @ 250 mls/hr 12/14/22 22:30 12/14/22 23:34 Vancomycin/Ns IV 12/15/22 00:29 250 mls/hr ONCE ONE Administration Ondansetron HCl 4 mg 12/14/22 18:05 12/14/22 18:51 Ondansetron Odt 4 Mg Tab.Rapdis TRANSLINGU 12/14/22 18:06 4 mg ONCE ONE Administration Prednisone 60 mg 12/14/22 16:33 12/14/22 16:42 Prednisone 20 Mg Tablet PO 12/14/22 16:34 60 mg ONCE ONE Administration Medical Decision Making Medical Decision Making MDM Narrative: 42-year-old female with history of asthma COPD oxygen dependent presents to the ED for recurrent wheezing coughing shortness of breath due to inability to fill prescriptions. Patient states prescription will come to her home tomorrow morning. Patient denies any pleurisy, leg swelling, calf pain, coughing up blood, recent long travel, or recent surgery. Initial labs including troponin BNP negative. EKG negative Stemi. chest x-ray shows pneumonia. Will give albuterol steroid and oral Cefuroxime which she was prescribed. Most likely discharge 9:30pm. Patietn 02 saturation 96% on 2 liters, but lungs are still tight with wheezing. patient states she does not feel better. Walking around the ED patient became very short of breath. Case presents hospitalist Dr. Nisha veloz who accepted patient for admission for asthma exacerbation and pneumonia. Differential Diagnosis Differential Diagnoses: The differential diagnosis associated with the presentation includes ( Pneumonia, CHF, myocardial infarction, asthma exacerbation) Admission/Observation Consideration of admission/observation: Escalation of care including admission/observation considered Consult Healthcare Provider Management of the patient was discussed with: Chief Deputy Court Clerk (Dr. Cameron Hospitalist) Lab Data [facility] Lab Attestation statement: I reviewed the patient's lab results. 12/14/22 14:19 12/14/22 14:19 Labs: Lab Results 12/14/22 12/14/22 12/14/22 Range/Units 14:14 14:19 14:19 WBC 11.9 H (4.8-10.8) X10*3/uL RBC 4.09 L (4.20-5.50) X10*6/uL Hgb 10.9 L (12.0-16.0) g/dl Hct 34.0 L (37.0-47.0) % MCV 83.1 (80.0-98.0) fL MCH 26.7 L (27.0-33.0) pg MCHC 32.1 (31.0-35.0) g/dl RDW 17.5 H (11.0-16.0) % Plt Count 336 (160-400) X10*3/uL MPV 9.3 L (9.4-12.3) fL Immature Gran % (Auto) 0.4 (0.0-0.4) % Neut % (Auto) 58.8 (45-73) % Lymph % (Auto) 19.5 L (20-40) % Haines % (Auto) 8.4 (2-11) % Eos % (Auto) 12.4 H (0-4) % Baso % (Auto) 0.5 (0-2) % Lymph # (Auto) 2.3 (1.2-4.9) X10*3/uL Haines # (Auto) 1.0 (0.1-1.2) X10*3/uL Eos # (Auto) 1.5 H (0.0-0.4) X10*3/uL Baso # (Auto) 0.1 (0.0-0.2) X10*3/uL Abs Immat Gran (auto) 0.05 H (0.00-0.03) X10*3/uL Absolute Neuts (auto) 7.0 (2.0-8.3) x10*3/uL Absolute Nucleated RBC 0.000 (0.0-0.012) X10*3/uL Nucleated RBC % (auto) 0.0 (0.0-0.2) /100WBC PT 12.7 (11.1-13.3) SEC INR 1.0 (0.9-1.1) Sodium (135-145) mmol/L Potassium (3.3-5.1) mmol/L Chloride (96-108) mmol/L Carbon Dioxide (22-29) mmol/L Anion Gap (12-20) BUN (9-16) mg/dL Creatinine (0.5-1.4) mg/dL Estim Creat Clear Calc Estimated GFR Random Glucose (60-115) mg/dL Calcium (8.4-10.2) mg/dL Total Bilirubin (0.0-1.0) mg/dL Direct Bilirubin (0.0-0.5) mg/dL AST (5-31) U/L ALT (0-31) U/L Alkaline Phosphatase (39-117) U/L Troponin I High Sens (<3.5-17.0) ng/L B-Natriuretic Peptide (<100) pg/mL Total Protein (6.5-8.0) g/dL Albumin (3.5-5.0) g/dL COVID-19 ([facility]) Negative (Negative) COVID-19 Clin Com See Note 12/14/22 12/14/22 12/14/22 Range/Units 14:19 14:19 14:19 WBC (4.8-10.8) X10*3/uL RBC (4.20-5.50) X10*6/uL Hgb (12.0-16.0) g/dl Hct (37.0-47.0) % MCV (80.0-98.0) fL MCH (27.0-33.0) pg MCHC (31.0-35.0) g/dl RDW (11.0-16.0) % Plt Count (160-400) X10*3/uL MPV (9.4-12.3) fL Immature Gran % (Auto) (0.0-0.4) % Neut % (Auto) (45-73) % Lymph % (Auto) (20-40) % Haines % (Auto) (2-11) % Eos % (Auto) (0-4) % Baso % (Auto) (0-2) % Lymph # (Auto) (1.2-4.9) X10*3/uL Haines # (Auto) (0.1-1.2) X10*3/uL Eos # (Auto) (0.0-0.4) X10*3/uL Baso # (Auto) (0.0-0.2) X10*3/uL Abs Immat Gran (auto) (0.00-0.03) X10*3/uL Absolute Neuts (auto) (2.0-8.3) x10*3/uL Absolute Nucleated RBC (0.0-0.012) X10*3/uL Nucleated RBC % (auto) (0.0-0.2) /100WBC PT (11.1-13.3) SEC INR (0.9-1.1) Sodium 140 (135-145) mmol/L Potassium 3.9 (3.3-5.1) mmol/L Chloride 104 (96-108) mmol/L Carbon Dioxide 30 H (22-29) mmol/L Anion Gap 10 L (12-20) BUN 7 L (9-16) mg/dL Creatinine 0.66 (0.5-1.4) mg/dL Estim Creat Clear Calc 100.8 Estimated GFR > 60 Random Glucose 113 (60-115) mg/dL Calcium 9.2 (8.4-10.2) mg/dL Total Bilirubin 0.6 (0.0-1.0) mg/dL Direct Bilirubin 0.3 (0.0-0.5) mg/dL AST 18 (5-31) U/L ALT 29 (0-31) U/L Alkaline Phosphatase 108 (39-117) U/L Troponin I High Sens < 2.7 (<3.5-17.0) ng/L B-Natriuretic Peptide 12 (<100) pg/mL Total Protein 6.1 L (6.5-8.0) g/dL Albumin 3.4 L (3.5-5.0) g/dL COVID-19 ([facility]) (Negative) COVID-19 Clin Com 12/14/22 Range/Units 18:57 WBC (4.8-10.8) X10*3/uL RBC (4.20-5.50) X10*6/uL Hgb (12.0-16.0) g/dl Hct (37.0-47.0) % MCV (80.0-98.0) fL MCH (27.0-33.0) pg MCHC (31.0-35.0) g/dl RDW (11.0-16.0) % Plt Count (160-400) X10*3/uL MPV (9.4-12.3) fL Immature Gran % (Auto) (0.0-0.4) % Neut % (Auto) (45-73) % Lymph % (Auto) (20-40) % Haines % (Auto) (2-11) % Eos % (Auto) (0-4) % Baso % (Auto) (0-2) % Lymph # (Auto) (1.2-4.9) X10*3/uL Haines # (Auto) (0.1-1.2) X10*3/uL Eos # (Auto) (0.0-0.4) X10*3/uL Baso # (Auto) (0.0-0.2) X10*3/uL Abs Immat Gran (auto) (0.00-0.03) X10*3/uL Absolute Neuts (auto) (2.0-8.3) x10*3/uL Absolute Nucleated RBC (0.0-0.012) X10*3/uL Nucleated RBC % (auto) (0.0-0.2) /100WBC PT (11.1-13.3) SEC INR (0.9-1.1) Sodium (135-145) mmol/L Potassium (3.3-5.1) mmol/L Chloride (96-108) mmol/L Carbon Dioxide (22-29) mmol/L Anion Gap (12-20) BUN (9-16) mg/dL Creatinine (0.5-1.4) mg/dL Estim Creat Clear Calc Estimated GFR Random Glucose (60-115) mg/dL Calcium (8.4-10.2) mg/dL Total Bilirubin (0.0-1.0) mg/dL Direct Bilirubin (0.0-0.5) mg/dL AST (5-31) U/L ALT (0-31) U/L Alkaline Phosphatase (39-117) U/L Troponin I High Sens < 2.7 (<3.5-17.0) ng/L B-Natriuretic Peptide (<100) pg/mL Total Protein (6.5-8.0) g/dL Albumin (3.5-5.0) g/dL COVID-19 ([facility]) (Negative) COVID-19 Clin Com Independent Interpretation I performed an independent interpretation of an: EKG (NOrmal sinus rhyth, Vent rate 88, WI interval 122, QRS 90, and Qtc 447) and Plain X-Ray Radiology Impression Discussion of test interpretation with radiology: I have reviewed the radiologist's reading. Independent Historian Clinical information obtained from an independent historian. History obtained from or confirmed by: EMS External Record Review External record reviewed: Other (PRior ED vivist) Prescription Management I considered prescription management with: Antibiotic Discharge Plan Discharge Clinical Impression: Asthma exacerbation, Pneumonia Patient Disposition: Admitted As Inpatient
--- NOTE | 2022-12-14 13:54 | ECG_ITS ---
Test Reason : chest pain Blood Pressure : / mmHG Vent. Rate : 088 BPM Atrial Rate : 088 BPM P-R Int : 122 ms QRS Dur : 090 ms QT Int : 370 ms P-R-T Axes : 037 025 018 degrees QTc Int : 447 ms Normal sinus rhythm Normal ECG When compared with ECG of 19-NOV-2022 06:13, No significant change was found Referred By: Samantha Cantu Electronically Signed By:DUSTY DILLARD
[2022-12-14 14:23] LABS: MANUAL DIFF FLAG NO
[2022-12-14 14:30] LABS: Basophils Absolute Auto 0.1 X10*3/uL (0.0-0.2); Basophils Percent Auto 0.5 % (0-2); Eosinophils Absolute Auto 1.5 X10*3/uL (0.0-0.4); Eosinophils Percent Auto 12.4 % (0-4); Hemoglobin 10.9 g/dl (12.0-16.0); Imm Gran Abs Auto 0.05 X10*3/uL (0.00-0.03); Imm Gran Pct Auto 0.4 % (0.0-0.4); Lymphocytes Absolute Auto 2.3 X10*3/uL (1.2-4.9); Lymphocytes Percent Auto 19.5 % (20-40); Mean Corpuscular HGB Conc 32.1 g/dl (31.0-35.0); Mean Corpuscular Hemoglobin 26.7 pg (27.0-33.0); Mean Corpuscular Volume 83.1 fL (80.0-98.0); Mean Platelet Volume 9.3 fL (9.4-12.3); Monocytes Percent Auto 8.4 % (2-11); Neutrophils Percent Auto 58.8 % (45-73); Platelet Count 336 X10*3/uL (160-400); Prothrombin Time 12.7 SEC (11.1-13.3); Red Blood Count 4.09 X10*6/uL (4.20-5.50); Red Cell Distribution Width 17.5 % (11.0-16.0); White Blood Count 11.9 X10*3/uL (4.8-10.8)
[2022-12-14 14:40] LABS: Alanine Aminotransferase 29 U/L (0-31); Albumin Level 3.4 g/dL (3.5-5.0); Alkaline Phosphatase 108 U/L (39-117); Anion Gap 10 (12-20); Aspartate Amino Transferase 18 U/L (5-31); Bilirubin Direct 0.3 mg/dL (0.0-0.5); Bilirubin Total 0.6 mg/dL (0.0-1.0); Blood Urea Nitrogen 7 mg/dL (9-16); Calcium 9.2 mg/dL (8.4-10.2); Carbon Dioxide 30 mmol/L (22-29); Chloride 104 mmol/L (96-108); Creatinine Clr Calc Pharmacy 100.8; Estimated Glomerular Filt Rate > 60; Glucose Random 113 mg/dL (60-115); Potassium 3.9 mmol/L (3.3-5.1); Sodium 140 mmol/L (135-145); Total Protein 6.1 g/dL (6.5-8.0)
[2022-12-14 14:45] LABS: B Type Natriuretic Peptide 12 pg/mL (<100)
[2022-12-14 14:50] LABS: Troponin-I High Sensitivity < 2.7 ng/L (<3.5-17.0)
[2022-12-14 14:50] LABS: COVID-19 Test Negative (Negative); IDNOW Serial# 08D9AD1C
[2022-12-14] MEDS: predniSONE 20 MG TABLET 60 MG PO (16:42)
[2022-12-14] MEDS: Albuterol Sulfate (0.083%) 2.5 MG/3 ML VIAL.NEB 10 MG INHALE (16:50)
--- NOTE | 2022-12-14 17:03 | PC.NURSE ---
Patient presents after fall yesterday and for increased asthma symptoms. Patient is alert and oriented answering all questions appropriately. Lung sounds at this time are tight in upper lobes and diminished in lower lobes. Patient on patient monitor showing sinus rhythm
[2022-12-14] MEDS: Albuterol/Iprat 2.5/0.5MG 3 ML AMPUL.NEB INHALE (18:10)
[2022-12-14] MEDS: Acetaminophen 325 MG TABLET 650 MG PO (18:49)
[2022-12-14] MEDS: Ondansetron ODT 4 MG TAB.RAPDIS TRANSLINGU (18:51)
[2022-12-14] MEDS: Magnesium Sulfate/H2O 2 GM/50 ML PIGGYBACK IV (19:07)
[2022-12-14 19:42] LABS: Troponin-I High Sensitivity < 2.7 ng/L (<3.5-17.0)
--- NOTE | 2022-12-14 20:04 | MHC.EDTECH ---
This tech assumed care of [id number] at 1900,vitals were taken and are within normal limits. Patient is watching TV and is resting comfortably at this time. Call carvalho within reach
--- NOTE | 2022-12-14 21:36 | MHC.EDTECH ---
Hourly rounds completed and vitals were taken,pt is resting comfortably watching TV at this time. Call carvalho within reach
--- NOTE | 2022-12-14 21:55 | PM.IMHP ---
History of Present Illness Date of Service: 12/14/22 Attending physician on admission: Kimmie Asif Chief Complaint: sob, cp, cough 42-year-old female with history of asthma, chronic bronchitis, chronic respiratory failure on 2 L supplemental O2 at baseline, depression/anxiety, history of lumbar disc herniation, migraines presented to the ED earlier today for evaluation of shortness of breath, wheezing, productive cough, fevers of up to 101, and headache. She was seen in the ED 4 days ago and diagnosed with asthma exacerbation and pneumonia and prescribed prednisone and cefuroxime 500 mg twice daily. Unfortunately, the patient was not able to obtain the prescription from her pharmacy which were supposed to be delivered today and has developed worsening symptoms. She also states that she sustained a fall 2 days ago that was mechanical in nature after she tripped over her oxygen tubing landing on her chest and head. Not on any blood thinners. She has had recurrent admissions for asthma exacerbation. She does not follow with a kelp or seagrass gatherer. She does report compliance with her maintenance medications but has noted increase in albuterol usage. On arrival, vital stable, briefly tachypneic to 22 with mildly elevated heart rates up to 94. She is maintaining oximetry 95-97% on 2 L supplemental O2 which is her baseline. There is a mild leukocytosis of 11.9. Renal function normal, electrolyte levels normal. COVID-[address] negative for any acute intracranial abnormality. Cervical spine CT negative for any cervical spine fracture, subluxation, or dislocation. There is noted to be a faint right upper lobe opacity consistent with pneumonia. Chest x-ray in agreement showing asymmetric patchy infiltrates in the right lung representing interval worsening from the most recent radiographic study. There is similar appearance to the Ivana studies. In the ed has been treated with 500 mg cefuroxime, 60 mg prednisone, DuoNeb, 2 g magnesium with minimal improvement in symptoms. Review of Systems Review of Systems: General: No malaise, unintentional weight los. fevers HEENT: No sore throat, nasal congestion, rhinorrhea, sinus pain, ear pain Cardiovascular: + pleuritic chest pain. No chest pressure, palpitations, or leg edema Respiratory: +sob, wheezing, productive cough GI: No abdominal pain, nausea, vomiting, diarrhea, constipation, melena, hematochezia : No dysuria, hematuria, increased urinary frequency MSK: No myalgia, back pain Neuro: No headaches, weakness, paresthesias Skin: No rashes or lesions [facility] Medical History Asthma Depression Disc herniation Generalized anxiety disorder H. pylori infection Migraine Morbid obesity Recurrent major depression Sinus infection Surgical History History of Social History Household Members: Spouse Housing: Apartment Do you presently have visiting nurse or other home services: No Alcohol intake: never Patient Tobacco Use Status: Never used Tobacco Tobacco use type: Cigarette Cigarette Packs Per Day: 2 Cigarettes Per Day: 5 Smoked in Last 30 Days: No Second Hand Smoke Exposure: Yes Use of substances other than those prescribed or required for medical reasons: No Advance Directives: Yes Advance Directives on File: Yes Advance Directives Date on File: 05/12/22 service: No Current occupational status: unemployed Meds Allergies Allergy/AdvReac Type Severity Reaction Status Date / Time promethazine [From PHENERGAN] Allergy Unknown ITCHING Verified 12/14/22 13:52 codeine [CODEINE] AdvReac Unknown STOMACH Verified 12/14/22 13:52 UPSET morphine [MORPHINE] AdvReac Unknown MORE PAIN Verified 12/14/22 13:52 Active Medications: Current Medications Acetaminophen (Acetaminophen 325 Mg Tablet) 650 mg PO Q6H PRN PRN Reason: Pain, Mild (Pain Scale 1-3) Enoxaparin Sodium (Enoxaparin Sodium 40 Mg/0.4 Ml Syringe) 40 mg SUBCUT Q24H REPLACED BY [facility] Sodium Chloride (0.9 % Sodium Chloride Flush 3 Ml Syringe) 3 ml IVFLUSH QSHIFT REPLACED BY [facility] Home Medications Medication Instructions Recorded Confirmed Last Taken Type acetaminophen 325 mg tablet 650 mg PO Q6H PRN Pain 11/16/22 12/14/22 Unknown History (Tylenol) albuterol sulfate 2.5 mg/3 mL 2.5 mg inhalation Q6H PRN wheezing 11/16/22 12/14/22 Unknown History (0.083 %) solution for nebulization albuterol sulfate 90 mcg/actuation 2 puff inhalation Q6H 11/16/22 12/14/22 Unknown History aerosol inhaler (Ventolin HFA) budesonide-formoterol HFA 160 2 puff inhalation BID 11/16/22 12/14/22 11/15/22 History mcg-4.5 mcg/actuation aerosol inhaler (Symbicort) bupropion HCl 300 mg 24 hr tablet, 300 mg PO DAILY 11/16/22 12/14/22 11/15/22 History extended release (Wellbutrin XL) cyanocobalamin (vitamin B-12) 1,000 mcg sublingual DAILY 11/16/22 12/14/22 11/15/22 History 1,000 mcg sublingual tablet dicyclomine 10 mg capsule 20 mg PO Q8H PRN Pain 11/16/22 12/14/22 Unknown History gabapentin 100 mg capsule 100 mg PO BID PRN Pain 11/16/22 12/14/22 Unknown History gabapentin 400 mg capsule 800 mg PO BEDTIME 11/16/22 12/14/22 11/15/22 History hydroxyzine pamoate 50 mg capsule 50 mg PO QID PRN Anxiety 11/16/22 12/14/22 Unknown History meloxicam 15 mg tablet 15 mg PO DAILY PRN Pain 11/16/22 12/14/22 Unknown History mirtazapine 15 mg tablet 15 mg PO BEDTIME 11/16/22 12/14/22 11/15/22 History montelukast 10 mg tablet 10 mg PO BEDTIME 11/16/22 12/14/22 11/15/22 History nicotine (polacrilex) 4 mg gum 4 mg PO Q2H PRN Nicotine Cravings 11/16/22 12/14/22 Unknown History nicotine 21 mg/24 hr daily 1 patch topical DAILY 11/16/22 12/14/22 11/15/22 History transdermal patch ondansetron HCl 4 mg tablet 4 mg PO Q8H PRN nausea/vomiting 11/16/22 12/14/22 Unknown History pantoprazole 40 mg tablet,delayed 40 mg PO BID 11/16/22 12/14/22 11/15/22 History release paroxetine HCl 40 mg tablet 40 mg PO BEDTIME 11/16/22 12/14/22 11/15/22 History polyethylene glycol 3350 17 gram 17 g PO DAILY PRN Constipation 11/16/22 12/14/22 Unknown History oral powder packet prazosin 2 mg capsule 2 mg PO BEDTIME 11/16/22 12/14/22 11/15/22 History prazosin 5 mg capsule (Minipress) 5 mg PO BEDTIME 11/16/22 12/14/22 11/15/22 History riboflavin (vitamin B2) 100 mg 200 mg PO Q12H 11/16/22 12/14/22 11/15/22 History tablet (Vitamin B-2) sumatriptan succinate 25 mg tablet 25 mg PO DAILY PRN Migraine 11/16/22 12/14/22 Unknown History Headache triamcinolone acetonide 55 mcg 1 spray intranasal DAILY 11/16/22 12/14/22 11/15/22 History nasal spray aerosol Physical Exam Vital Signs and Narrative: Vital Signs: Last Vital Signs Temp 98.3 F 12/14/22 21:35 Pulse 94 12/14/22 21:35 Resp 18 12/14/22 21:35 BP 149/83 H 12/14/22 21:35 Pulse Ox 97 12/14/22 21:35 O2 Del Method Nasal Cannula 12/14/22 21:35 O2 Flow Rate 2 12/14/22 21:35 Oxygen Flow Rate 3 12/14/22 13:53 BMI result Body Mass Index 33.2 Constitutional - Awake and Alert, No apparent distress Eyes - PERRLA, EOMI Cardiovascular - S1S2, RRR, No edema Respiratory - Normal lung expansion, Normal respiratory effort, No respiratory distress on 2 L supplemental O2, diminished lung sounds bilaterally with expiratory wheezing Gastrointestinal - NT / ND; +BS; No rebound or guarding Extremities - no calf tenderness bilaterally, no swelling Skin - Warm/Dry Neurological - Alert & oriented x3 Psychological - Appropriate affect Results Labs 12/14/22 14:19 12/14/22 14:19 Labs: Laboratory Results - last 24 hr 12/14/22 12/14/22 12/14/22 14:14 14:19 14:19 MCV 83.1 MCH 26.7 L MCHC 32.1 RDW 17.5 H Plt Count 336 MPV 9.3 L Immature Gran % (Auto) 0.4 Neut % (Auto) 58.8 Lymph % (Auto) 19.5 L [place] % (Auto) 8.4 Eos % (Auto) 12.4 H Baso % (Auto) 0.5 Lymph # (Auto) 2.3 [place] # (Auto) 1.0 Eos # (Auto) 1.5 H Baso # (Auto) 0.1 Abs Immat Gran (auto) 0.05 H Absolute Neuts (auto) 7.0 Absolute Nucleated RBC 0.000 Nucleated RBC % (auto) 0.0 PT 12.7 INR 1.0 Anion Gap Estim Creat Clear Calc Estimated GFR Random Glucose Calcium Total Bilirubin Direct Bilirubin AST ALT Alkaline Phosphatase B-Natriuretic Peptide Total Protein Albumin COVID-19 ([facility]) Negative COVID-19 Clin Com See Note 12/14/22 12/14/22 14:19 14:19 MCV MCH MCHC RDW Plt Count MPV Immature Gran % (Auto) Neut % (Auto) Lymph % (Auto) [place] % (Auto) Eos % (Auto) Baso % (Auto) Lymph # (Auto) [place] # (Auto) Eos # (Auto) Baso # (Auto) Abs Immat Gran (auto) Absolute Neuts (auto) Absolute Nucleated RBC Nucleated RBC % (auto) PT INR Anion Gap 10 L Estim Creat Clear Calc 100.8 Estimated GFR > 60 Random Glucose 113 Calcium 9.2 Total Bilirubin 0.6 Direct Bilirubin 0.3 AST 18 ALT 29 Alkaline Phosphatase 108 B-Natriuretic Peptide 12 Total Protein 6.1 L Albumin 3.4 L COVID-19 ([facility]) COVID-19 Clin Com Imaging Radiologist's Impressions: Impressions Chest X-Ray 12/14/22 14:24 IMPRESSION: Asymmetric patchy infiltrates in the right lung representing interval worsening from the most recent radiographic study. The infiltrates have a similar appearance to the Ivana studies. Recurrent infectious/inflammatory pneumonia is suspected. Correlate clinically. Cervical Spine CT 12/14/22 18:45 IMPRESSION: 1. No acute intracranial abnormality. 2. No cervical fracture. 3. Faint right upper lobe opacity. Consistent pneumonia. Head CT 12/14/22 18:45 IMPRESSION: 1. No acute intracranial abnormality. 2. No cervical fracture. 3. Faint right upper lobe opacity. Consistent pneumonia. Assessment and Plan (1) Asthma exacerbation: Status: Acute (2) Pneumonia: Status: Acute Plan 42-year-old female with history of asthma, chronic bronchitis, chronic respiratory failure on 2 L supplemental O2 at baseline, depression/anxiety, history of lumbar disc herniation, migraines to be observed for asthma exacerbation with CAP. #Acute asthma exacerbation- secondary to pneumonia -DuoNebs q.4h while awake -IV methylprednisolone 40 mg b.i.d. -albuterol q.2h p.r.n. -continue Symbicort -recurrent exacerbations requiring monthly hospitalizations since 04/15. Will consult pulmonology for assistance with poorly-controlled asthma #hospital-acquired pneumonia- recurrent admissions as above treated with IV abx -CXR showing asymmetric patchy infiltrates in the right lung representing interval worsening from previous radiographic study from 12/10. Had been diagnosed with pneumonia but was unable to lease picker oral antibiotics from pharmacy -mild leukocytosis 11.9. Mildly elevated heart rate secondary to albuterol usage. No sepsis/severe sepsis/shock -IV ceftriaxone and doxycycline -strep pneumo ag, legionella ag -symptomatic management -Follow cbc, bc #Chronic hypoxemic respiratory failure -no acute worsening of hypoxia -continue baseline 2 L supplemental O2 # mood disorder -continue home meds # GERD -continue PPI # migraines -Imitrex p.r.n. DVT prophylaxis-Lovenox Full code Time Spent With Patient Time: Total time managing care of this patient today ____ minutes. Quality Stroke Does the patient have a stroke diagnosis?: No VTE Prior VTE?: No VTE Risk Level:: Medical - moderate - high VTE Device Contraindication: Treatment Not Indicated VTE Drug Contraindication: N/A - Med Ordered
--- NOTE | 2022-12-14 21:55 | PHA.MEDREC ---
Pharmacy Consult ? Medication Reconciliation Pharmacy has completed the medication reconciliation. Attempt to contact [facility] patient's home nurse, left message to call back in the AM. Patient discharged from medical floor on 11/24. Utilzied claim history and discharge summary. patient reported to provider she has not been able to take prednisone and abx that were prescribed 12/11 since pharmacy does not deliver therefore left unconfirmed. Alexandria Brewster, PharmD
[2022-12-14] MEDS: Enoxaparin Sodium 40 MG/0.4 ML SYRINGE SUBCUT (22:20)
[2022-12-14] MEDS: methylPREDNISolone Sod Succ 40 MG/ML VIAL IVPUSH (22:24)
--- NOTE | 2022-12-14 22:28 | PHA.PROG ---
Admission Date/Time: December 14, 2022 21:42 Indication: Resp Infection Weight in k.111 kg Adjusted body weight in K.4 kg [place] body weight in K.5 kg Obesity Dosing Indication % IBW: 169% Serum Creatinine - Last 168 Hours 12/14/22 14:19 Creatinine 0.66 Estimated CrCl and GFR - Last 168 Hours 12/14/22 14:19 Estim Creat Clear Calc 100.8 Estimated GFR > 60 Vancomycin Loading Dose: 2000 mg Current Vancomycin Dosing Regimen: 1250 mg Q12H Date and Time for next Vancomycin Level to be drawn: 12/16 @ 1000 Pharmacist Comments on Vancomycin Plan: patient is considered obese with a %IBW > 130%, therefore careful monitor is required due to vancomycin high volume of distribution patient is scheduled to received load dose of vancomycin 2000 mg in the ER Maintenance dose vancomycin 1250 mg Q12H is scheduled to start 12/15 @ 1200. Expected AUC 530 with a trough of 13.8 level is scheduled to be drawn prior to 4th dose pharmacy to monitor renal function daily Alexandria Brewster, SarahD Vancomycin dosing will take advantage of [employer] as a clinical decision support tool that uses Bayesian modeling to calculate individual patient's pharmacokinetic parameters and forecast the patient's drug concentration time course with the target goal AUC 24 range of 400 - 600 mg/L/hr.
[2022-12-14] MEDS: cefEPime HCl 2 GM in 0.9 % Sodium Chloride 50 ML IV (22:29)
[2022-12-14 22:57] LABS: Lactic Acid 1.1 mmol/L (0.5-2.0)
[2022-12-14] MEDS: vancomycin/NS 2,000 MG/500 ML PLAST..BAG 250 MG IV (23:34)
--- NOTE | 2022-12-14 23:45 | MHC.EDTECH ---
Hourly rounds were completed,vitals were taken and patient was giving a turkey sandwich and two cups of gingerale. Patient is resting comfortably at this time.
[2022-12-15] VITALS (10 sets, daily range): BP systolic 127–146; BP diastolic 67–87; PULSE 83–98; RESP 18–26; TEMP 35.8–37.1; O2SAT 95–98
--- NOTE | 2022-12-15 | ECG_ITS ---
Test Reason : CHEST PAIN Blood Pressure : / mmHG Vent. Rate : 091 BPM Atrial Rate : 091 BPM P-R Int : 138 ms QRS Dur : 086 ms QT Int : 372 ms P-R-T Axes : 025 019 013 degrees QTc Int : 457 ms Normal sinus rhythm Possible Left atrial enlargement Borderline ECG When compared with ECG of 14-DEC-2022 14:05, No significant change was found Referred By: Eleni Hung Electronically Signed By:DUSTY DILLARD
--- NOTE | 2022-12-15 02:53 | MHC.EDTECH ---
Hourly rounds completed and vitals were taken. Patient is resting comfortably at this time. call carvalho within reach
--- NOTE | 2022-12-15 04:00 | MHC.EDTECH ---
Hourly rounds completed, patient requested a can of yariel willa.
[2022-12-15 05:39] LABS: MANUAL DIFF FLAG NO
[2022-12-15 05:44] LABS: Basophils Percent Auto 0.2 % (0-2); Hematocrit 36.4 % (37.0-47.0); Hemoglobin 11.4 g/dl (12.0-16.0); Imm Gran Abs Auto 0.06 X10*3/uL (0.00-0.03); Imm Gran Pct Auto 0.6 % (0.0-0.4); Lymphocytes Absolute Auto 1.1 X10*3/uL (1.2-4.9); Lymphocytes Percent Auto 11.7 % (20-40); Mean Corpuscular HGB Conc 31.3 g/dl (31.0-35.0); Mean Corpuscular Hemoglobin 25.9 pg (27.0-33.0); Mean Corpuscular Volume 82.7 fL (80.0-98.0); Mean Platelet Volume 9.8 fL (9.4-12.3); Monocytes Absolute Auto 0.1 X10*3/uL (0.1-1.2); Monocytes Percent Auto 1.4 % (2-11); Neutrophils Absolute Auto 8.3 x10*3/uL (2.0-8.3); Neutrophils Percent Auto 86.1 % (45-73); Platelet Count 377 X10*3/uL (160-400); Red Cell Distribution Width 17.2 % (11.0-16.0); White Blood Count 9.6 X10*3/uL (4.8-10.8)
[2022-12-15 05:59] LABS: Anion Gap 13 (12-20); Blood Urea Nitrogen 7 mg/dL (9-16); Calcium 9.5 mg/dL (8.4-10.2); Carbon Dioxide 23 mmol/L (22-29); Chloride 104 mmol/L (96-108); Creatinine Clr Calc Pharmacy 99.4; Estimated Glomerular Filt Rate > 60; Glucose Random 212 mg/dL (60-115); Potassium 4.3 mmol/L (3.3-5.1); Sodium 136 mmol/L (135-145)
--- NOTE | 2022-12-15 06:41 | MHC.EDTECH ---
Hourly rounds completed,vitals were taken and patient is resting comfortably at this time and call carvalho within reach.
[2022-12-15] MEDS: Albuterol/Iprat 2.5/0.5MG 3 ML AMPUL.NEB INHALE ×4 (08:34→20:11)
--- NOTE | 2022-12-15 08:39 | HO.PM.IMPN ---
Subjective Subjective Date of Service: 12/15/22 Review of Systems Follow-up acute respiratory failure secondary to Hcap, asthma exacerbation Still with some shortness breath but feels better Physical Exam Vital Signs: Vital Signs: Last Vital Signs Temp 98.4 F 12/15/22 06:40 Pulse 88 12/15/22 08:34 Resp 18 12/15/22 08:34 BP 141/84 H 12/15/22 06:40 Pulse Ox 96 12/15/22 06:40 O2 Del Method Nasal Cannula 12/15/22 06:40 O2 Flow Rate 2 12/15/22 06:40 Oxygen Flow Rate 3 12/14/22 13:53 BMI result Body Mass Index 33.2 Appearing in no acute distress lung sounds expiratory wheezing heart regular rate rhythm, clear S1, S2 positive bowel sounds, abdomen is soft, nontender neuro patient is alert x3, no focal deficits Objective Data Active Medications Acetaminophen (Acetaminophen 325 Mg Tablet) 650 mg PO Q6H PRN PRN Reason: Pain, Mild (Pain Scale 1-3) Albuterol Sulfate (Albuterol Sulfate (0.083%) 2.5 Mg/3 Ml Vial.Neb) 2.5 mg INHALE Q2H PRN PRN Reason: Shortness of Breath/Wheezing Albuterol/Ipratropium (Albuterol/Iprat 2.5/0.5mg 3 Ml Ampul.Neb) 3 ml INHALE RQ4H WHILE AWAKE [facility] Last Admin: 12/15/22 08:34 Dose: 3 ml Documented By: MARIBEL Docusate Sodium (Docusate Sodium 100 Mg Capsule) 100 mg PO DAILY PRN PRN Reason: Constipation Enoxaparin Sodium (Enoxaparin Sodium 40 Mg/0.4 Ml Syringe) 40 mg SUBCUT Q24H [facility] Last Admin: 12/14/22 22:20 Dose: 40 mg Documented By: KATRINA Furosemide (Furosemide 40 Mg/4 Ml Vial) 40 mg IVPUSH DAILY [facility]; Protocol Stop: 12/16/22 09:01 Cefepime HCl 2 gm/ Sodium (Chloride) 50 mls @ 100 mls/hr IV Q8H [facility] Last Admin: 12/14/22 22:29 Dose: 100 mls/hr Documented By: KATRINA Vancomycin HCl 1,250 mg/ (Sodium Chloride) 250 mls @ 166.667 mls/hr IV Q12H [facility] Methylprednisolone Sodium Succinate (Methylprednisolone Sod Succ 40 Mg/Ml Vial) 40 mg IVPUSH Q12H [facility] Last Admin: 12/14/22 22:24 Dose: 40 mg Documented By: KATRINA Ondansetron HCl (Ondansetron Hcl 4 Mg/2 Ml Vial) 4 mg IVPUSH Q8H PRN PRN Reason: Nausea and Vomiting Pharmacy Consult (Consult Rx Vancomycin Dosing) 1 each MISCELLANE DAILY PRN PRN Reason: Consult order Sodium Chloride (0.9 % Sodium Chloride Flush 3 Ml Syringe) 3 ml IVFLUSH QSHIFT [facility] Last Admin: 12/15/22 00:15 Dose: Not Given Documented By: KATRINA Non-Admin Reason: IV Running Labs 12/15/22 05:11 12/15/22 05:11 Labs: Laboratory Results - last 24 hr 12/14/22 12/14/22 12/14/22 14:14 14:19 14:19 MCV 83.1 MCH 26.7 L MCHC 32.1 RDW 17.5 H Plt Count 336 MPV 9.3 L Immature Gran % (Auto) 0.4 Neut % (Auto) 58.8 Lymph % (Auto) 19.5 L [place] % (Auto) 8.4 Eos % (Auto) 12.4 H Baso % (Auto) 0.5 Lymph # (Auto) 2.3 [place] # (Auto) 1.0 Eos # (Auto) 1.5 H Baso # (Auto) 0.1 Abs Immat Gran (auto) 0.05 H Absolute Neuts (auto) 7.0 Absolute Nucleated RBC 0.000 Nucleated RBC % (auto) 0.0 PT 12.7 INR 1.0 Anion Gap Estim Creat Clear Calc Estimated GFR Random Glucose Lactic Acid Calcium Total Bilirubin Direct Bilirubin AST ALT Alkaline Phosphatase B-Natriuretic Peptide Total Protein Albumin COVID-19 ([facility]) Negative COVID-19 Clin Com See Note 12/14/22 12/14/22 12/14/22 14:19 14:19 22:45 MCV MCH MCHC RDW Plt Count MPV Immature Gran % (Auto) Neut % (Auto) Lymph % (Auto) [place] % (Auto) Eos % (Auto) Baso % (Auto) Lymph # (Auto) [place] # (Auto) Eos # (Auto) Baso # (Auto) Abs Immat Gran (auto) Absolute Neuts (auto) Absolute Nucleated RBC Nucleated RBC % (auto) PT INR Anion Gap 10 L Estim Creat Clear Calc 100.8 Estimated GFR > 60 Random Glucose 113 Lactic Acid 1.1 Calcium 9.2 Total Bilirubin 0.6 Direct Bilirubin 0.3 AST 18 ALT 29 Alkaline Phosphatase 108 B-Natriuretic Peptide 12 Total Protein 6.1 L Albumin 3.4 L COVID-19 ([facility]) COVID-19 Clin Com 12/15/22 12/15/22 05:11 05:11 MCV 82.7 MCH 25.9 L MCHC 31.3 RDW 17.2 H Plt Count 377 MPV 9.8 Immature Gran % (Auto) 0.6 H Neut % (Auto) 86.1 H Lymph % (Auto) 11.7 L [place] % (Auto) 1.4 L Eos % (Auto) 0.0 Baso % (Auto) 0.2 Lymph # (Auto) 1.1 L [place] # (Auto) 0.1 Eos # (Auto) 0.0 Baso # (Auto) 0.0 Abs Immat Gran (auto) 0.06 H Absolute Neuts (auto) 8.3 Absolute Nucleated RBC 0.000 Nucleated RBC % (auto) 0.0 PT INR Anion Gap 13 Estim Creat Clear Calc 99.4 Estimated GFR > 60 Random Glucose 212 H Lactic Acid Calcium 9.5 Total Bilirubin Direct Bilirubin AST ALT Alkaline Phosphatase B-Natriuretic Peptide Total Protein Albumin COVID-19 ([facility]) COVID-19 Clin Com Assessment and Plan (1) ILD (interstitial lung disease): Status: Acute (2) Acute and chronic respiratory failure: Status: Acute Plan 42-year-old female with history of asthma, chronic bronchitis, chronic respiratory failure on 2 L supplemental O2 at baseline, depression/anxiety, history of lumbar disc herniation, migraines to be observed for asthma exacerbation with CAP. Acute asthma exacerbation DuoNebs q.4h while awake and p.r.n. IV methylprednisolone 40 mg b.i.d. continue Symbicort Pulmonology following> try Lasix, will order 40 mg x 2 days Hospital-acquired pneumonia- recurrent admissions as above treated with IV abx CXR showing asymmetric patchy infiltrates in the right lung representing interval worsening from previous radiographic study from 12/10, was started on antibiotics but did not pick them up from pharmacy Continue vancomycin doxycycline Check strep pneumo ag, legionella ag Follow blood cultures Chronic hypoxemic respiratory failure no acute worsening of hypoxia baseline 2 L supplemental O2 mood disorder continue home meds GERD continue PPI migraines Imitrex p.r.n. DVT prophylaxis-Lovenox Attending Dr. Silva Full code Continue hospitalization for treatment of healthcare associated pneumonia requiring IV antibiotics and close monitoring Time Spent With Patient Time: Total time managing care of this patient today ____ minutes. Quality Stroke Does the patient have a stroke diagnosis?: No VTE Prior VTE?: No VTE Risk Level:: Medical - moderate - high VTE Device Contraindication: Treatment Not Indicated VTE Drug Contraindication: N/A - Med Ordered
[2022-12-15] MEDS: Acetaminophen 325 MG TABLET 650 MG PO ×2 (09:03→14:30)
[2022-12-15] MEDS: methylPREDNISolone Sod Succ 40 MG/ML VIAL IVPUSH ×2 (09:04→21:47)
[2022-12-15] MEDS: Furosemide 40 MG/4 ML VIAL IVPUSH (09:04)
[2022-12-15] MEDS: cefEPime HCl 2 GM in 0.9 % Sodium Chloride 50 ML IV ×3 (09:04→22:26)
[2022-12-15] MEDS: ondansetron HCL 4 MG/2 ML VIAL IVPUSH (09:04)
[2022-12-15] MEDS: 0.9 % Sodium Chloride Flush 3 ML SYRINGE IVFLUSH ×2 (09:05→22:26)
--- NOTE | 2022-12-15 09:16 | PC.NURSE ---
PT IS A/O X 4 NO C/O SOB/NORBERT NOTED SPEAKS IN FULL SENTENCES. PT C/O 01/02 HEADACHE GIVEN APAP 650G PO. LUNGS - CHUCK UPPER DIMINISHED. CHUCK LOWER LUNGS - CTA. PT C/O 10/02 CHEST PAIN. HEART SOUNDS - REGULAR. ABD SOFT OBESE, NON-TENDER, BS + X 4 QUADS. NO EDEMA NOTED. PT AWARE OF PLAN OF CARE.
--- NOTE | 2022-12-15 09:19 | PM.CNPUL ---
History of Present Illness History of Present Illness Consult date: 12/15/22 Chief complaint: asthma exacerbation Narrative: this is an inpatient pulmonary consultation. The patient is a 42-year-old woman with a known history of severe COVID requiring mechanical ventilation back in March 2022 and now on oxygen for chronic respiratory failure. Patient is also a active smoker she quit just last week. Apparently back in October her respiratory symptoms worsen. She did come in again a CT scan was done which was personally by me demonstrating significant airspace disease. Concerning for pneumonia. Although when compared to her previous CT scan from March 2022 there was a lot of remnants of that initial COVID pneumonia. The patient was treated with steroids in addition to diuresis and she did feel better was able to be discharged home last week. Although her symptoms started coming back and she feels very short of breath with minimal activity. she had a repeat chest x-ray in the ER demonstrating very similar findings of patchy airspace disease bilaterally. Indeed therapies to be some degree of chronicity after having severe COVID. on examination the patient does have diminished breath sounds with some fine crackles. In addition to that does have lower extremity edema. We did review her last echocardiogram that she had during the last visit at the did could not estimate her pulmonary pressures. Likely has some component of pulmonary hypertension from her significant hypoxia and severe disease. Patient denies any drug use. Will go ahead and check a drug screen just in case. She quit smoking a week ago. Review of Systems Review of Systems: General: No malaise, unintentional weight los. fevers HEENT: No sore throat, nasal congestion, rhinorrhea, sinus pain, ear pain Cardiovascular: + pleuritic chest pain. No chest pressure, palpitations, or leg edema Respiratory: +sob, wheezing, productive cough GI: No abdominal pain, nausea, vomiting, diarrhea, constipation, melena, hematochezia : No dysuria, hematuria, increased urinary frequency MSK: No myalgia, back pain Neuro: No headaches, weakness, paresthesias Skin: No rashes or lesions PMFSH Past Medical History Medical History (Updated 12/15/22 @ 09:25 by Corwin Hung MD) Asthma Depression Disc herniation Generalized anxiety disorder H. pylori infection ILD (interstitial lung disease) Migraine Morbid obesity Panic attack as reaction to stress Recurrent major depression Sinus infection Surgical History Surgical History History of Social History Social History Household Members: Spouse Housing: Apartment Do you presently have visiting nurse or other home services: No Alcohol intake: never Patient Tobacco Use Status: Never used Tobacco Tobacco use type: Cigarette Cigarette Packs Per Day: 2 Cigarettes Per Day: 5 Smoked in Last 30 Days: No Second Hand Smoke Exposure: Yes Use of substances other than those prescribed or required for medical reasons: No Advance Directives: Yes Advance Directives on File: Yes Advance Directives Date on File: 05/12/22 service: No Current occupational status: unemployed Meds Allergies Allergy/AdvReac Type Severity Reaction Status Date / Time promethazine [From PHENERGAN] Allergy Unknown ITCHING Verified 12/14/22 13:52 codeine [CODEINE] AdvReac Unknown STOMACH Verified 12/14/22 13:52 UPSET morphine [MORPHINE] AdvReac Unknown MORE PAIN Verified 12/14/22 13:52 Active Medications: Current Medications Acetaminophen (Acetaminophen 325 Mg Tablet) 650 mg PO Q6H PRN PRN Reason: Pain, Mild (Pain Scale 1-3) Last Admin: 12/15/22 09:03 Dose: 650 mg Albuterol Sulfate (Albuterol Sulfate (0.083%) 2.5 Mg/3 Ml Vial.Neb) 2.5 mg INHALE Q2H PRN PRN Reason: Shortness of Breath/Wheezing Albuterol/Ipratropium (Albuterol/Iprat 2.5/0.5mg 3 Ml Ampul.Neb) 3 ml INHALE RQ4H WHILE AWAKE KRYSTLE Last Admin: 12/15/22 08:34 Dose: 3 ml Docusate Sodium (Docusate Sodium 100 Mg Capsule) 100 mg PO DAILY PRN PRN Reason: Constipation Enoxaparin Sodium (Enoxaparin Sodium 40 Mg/0.4 Ml Syringe) 40 mg SUBCUT Q24H KRYSTLE Last Admin: 12/14/22 22:20 Dose: 40 mg Furosemide (Furosemide 40 Mg/4 Ml Vial) 40 mg IVPUSH DAILY KRYSTLE; Protocol Stop: 12/16/22 09:01 Last Admin: 12/15/22 09:04 Dose: 40 mg Cefepime HCl 2 gm/ Sodium (Chloride) 50 mls @ 100 mls/hr IV Q8H [facility] Last Admin: 12/15/22 09:04 Dose: 100 mls/hr Vancomycin HCl 1,250 mg/ (Sodium Chloride) 250 mls @ 166.667 mls/hr IV Q12H [facility] Methylprednisolone Sodium Succinate (Methylprednisolone Sod Succ 40 Mg/Ml Vial) 40 mg IVPUSH Q12H [facility] Last Admin: 12/15/22 09:04 Dose: 40 mg Ondansetron HCl (Ondansetron Hcl 4 Mg/2 Ml Vial) 4 mg IVPUSH Q8H PRN PRN Reason: Nausea and Vomiting Last Admin: 12/15/22 09:04 Dose: 4 mg Pharmacy Consult (Consult Rx Vancomycin Dosing) 1 each MISCELLANE DAILY PRN PRN Reason: Consult order Sodium Chloride (0.9 % Sodium Chloride Flush 3 Ml Syringe) 3 ml IVFLUSH QSHIFT [facility] Last Admin: 12/15/22 09:05 Dose: 3 ml Home Medications Medication Instructions Recorded Confirmed Last Taken Type acetaminophen 325 mg tablet 650 mg PO Q6H PRN Pain 11/16/22 12/14/22 Unknown History (Tylenol) albuterol sulfate 2.5 mg/3 mL 2.5 mg inhalation Q6H PRN wheezing 11/16/22 12/14/22 Unknown History (0.083 %) solution for nebulization albuterol sulfate 90 mcg/actuation 2 puff inhalation Q6H 11/16/22 12/14/22 Unknown History aerosol inhaler (Ventolin HFA) budesonide-formoterol HFA 160 2 puff inhalation BID 11/16/22 12/14/22 11/15/22 History mcg-4.5 mcg/actuation aerosol inhaler (Symbicort) bupropion HCl 300 mg 24 hr tablet, 300 mg PO DAILY 11/16/22 12/14/22 11/15/22 History extended release (Wellbutrin XL) cyanocobalamin (vitamin B-12) 1,000 mcg sublingual DAILY 11/16/22 12/14/22 11/15/22 History 1,000 mcg sublingual tablet dicyclomine 10 mg capsule 20 mg PO Q8H PRN Pain 11/16/22 12/14/22 Unknown History gabapentin 100 mg capsule 100 mg PO BID PRN Pain 11/16/22 12/14/22 Unknown History gabapentin 400 mg capsule 800 mg PO BEDTIME 11/16/22 12/14/22 11/15/22 History hydroxyzine pamoate 50 mg capsule 50 mg PO QID PRN Anxiety 11/16/22 12/14/22 Unknown History meloxicam 15 mg tablet 15 mg PO DAILY PRN Pain 11/16/22 12/14/22 Unknown History mirtazapine 15 mg tablet 15 mg PO BEDTIME 11/16/22 12/14/22 11/15/22 History montelukast 10 mg tablet 10 mg PO BEDTIME 11/16/22 12/14/22 11/15/22 History nicotine (polacrilex) 4 mg gum 4 mg PO Q2H PRN Nicotine Cravings 11/16/22 12/14/22 Unknown History nicotine 21 mg/24 hr daily 1 patch topical DAILY 11/16/22 12/14/22 11/15/22 History transdermal patch ondansetron HCl 4 mg tablet 4 mg PO Q8H PRN nausea/vomiting 11/16/22 12/14/22 Unknown History pantoprazole 40 mg tablet,delayed 40 mg PO BID 11/16/22 12/14/22 11/15/22 History release paroxetine HCl 40 mg tablet 40 mg PO BEDTIME 11/16/22 12/14/22 11/15/22 History polyethylene glycol 3350 17 gram 17 g PO DAILY PRN Constipation 11/16/22 12/14/22 Unknown History oral powder packet prazosin 2 mg capsule 2 mg PO BEDTIME 11/16/22 12/14/22 11/15/22 History prazosin 5 mg capsule (Minipress) 5 mg PO BEDTIME 11/16/22 12/14/22 11/15/22 History riboflavin (vitamin B2) 100 mg 200 mg PO Q12H 11/16/22 12/14/22 11/15/22 History tablet (Vitamin B-2) sumatriptan succinate 25 mg tablet 25 mg PO DAILY PRN Migraine 11/16/22 12/14/22 Unknown History Headache triamcinolone acetonide 55 mcg 1 spray intranasal DAILY 11/16/22 12/14/22 11/15/22 History nasal spray aerosol Physical Exam Vital Signs: Vital Signs: Last Vital Signs Temp 96.4 F L 12/15/22 08:43 Pulse 87 12/15/22 08:43 Resp 18 12/15/22 08:43 BP 127/67 12/15/22 08:43 Pulse Ox 98 12/15/22 08:43 O2 Del Method Room Air 12/15/22 08:43 O2 Flow Rate 2 12/15/22 06:40 Oxygen Flow Rate 3 12/14/22 13:53 BMI result Body Mass Index 33.2 Const: General: comfortable HEENT: Head: Yes normocephalic Neck: Neck: Yes supple Chest: Chest palpation & inspection: normal inspection of the chest Resp: Effort & Inspection: normal respiratory effort and prolonged expiratory phase Auscultation: crackles bilateral and diminished lung sounds Cardio: Rate: regular rate Rhythm: regular rhythm Heart sounds: S1 normal heart sound present and S2 normal heart sound present GI: Palpation (GI): Soft to palpation Skin: General skin exam: no rashes or lesions noted Extrem: General: Yes edema Results Laboratory Findings 12/15/22 05:11 12/15/22 05:11 ABG, PT/INR, D-dimer: PT/INR, D-dimer PT 12.7 SEC (11.1-13.3) 12/14/22 14:19 INR 1.0 (0.9-1.1) 12/14/22 14:19 Abnormal lab findings: Abnormal Labs 12/14/22 12/14/22 12/15/22 14:19 14:19 05:11 WBC 11.9 H RBC 4.09 L Hgb 10.9 L 11.4 L Hct 34.0 L 36.4 L MCH 26.7 L 25.9 L RDW 17.5 H 17.2 H MPV 9.3 L Immature Gran % (Auto) 0.6 H Neut % (Auto) 86.1 H Lymph % (Auto) 19.5 L 11.7 L Weston % (Auto) 1.4 L Eos % (Auto) 12.4 H Lymph # (Auto) 1.1 L Eos # (Auto) 1.5 H Abs Immat Gran (auto) 0.05 H 0.06 H Carbon Dioxide 30 H Anion Gap 10 L BUN 7 L Random Glucose Total Protein 6.1 L Albumin 3.4 L 12/15/22 05:11 WBC RBC Hgb Hct MCH RDW MPV Immature Gran % (Auto) Neut % (Auto) Lymph % (Auto) Weston % (Auto) Eos % (Auto) Lymph # (Auto) Eos # (Auto) Abs Immat Gran (auto) Carbon Dioxide Anion Gap BUN 7 L Random Glucose 212 H Total Protein Albumin Assessment and Plan (1) Asthma exacerbation: Status: Acute (2) Pneumonia: Status: Acute (3) Acute and chronic respiratory failure: Status: Acute (4) ILD (interstitial lung disease): Status: Acute Plan continue solumedrol diuresis as tolerated respiratory therapy Bloodwork continue oxygen supplementation to keep pox>90% repeat CXR tomorrow fair condition Time Spent With Patient Time: Total time managing care of this patient today ____ minutes. Procedures Date of Service Date of Service: 12/15/22
[2022-12-15 10:58] LABS: Amphetamine Screen Urine Not Detected (Not Detect); Barbiturates, Urine Not Detected (Not Detect); Benzodiazepines Screen Urine Not Detected (Not Detect); Cannabinoid Screen Urine Not Detected (Not Detect); Cocaine Screen Urine Not Detected (Not Detect); Fentanyl, urine Not Detected (Not Detect); Opiate Screen Urine Not Detected (Not Detect); Phencyclidine Screen Urine Not Detected (Not Detect)
--- NOTE | 2022-12-15 10:59 | PC.NURSE ---
DAYANARA WHITTINGTON ([facility], ) CALLED [facility] [place] AND WAS UPDATED ON PT STATUS.
[2022-12-15 11:10] LABS: Troponin-I High Sensitivity < 2.7 ng/L (<3.5-17.0)
[2022-12-15 11:20] LABS: Erythrocyte Sedimentation Rate 38 MM/HR (0-20)
--- NOTE | 2022-12-15 11:39 | PC.NURSE ---
rn to rn report given to evy. pt aware of plan of care for transfer to the overflow.
[2022-12-15] MEDS: vancomycin HCL 1,250 MG in 0.9 % Sodium Chloride 250 ML 166.67 MG IV ×2 (13:05→23:48)
[2022-12-15 13:21] LABS: Adenovirus PCR Not Detected (Not Detect.); Bordetella parapertussis PCR Not Detected (Not Detect.); Bordetella pertussis PCR Not Detected (Not Detect.); Chlamydia pneumoniae PCR Not Detected (Not Detect.); Coronavirus 229E PCR Not Detected (Not Detect.); Coronavirus HKU1 PCR Not Detected (Not Detect.); Coronavirus NL63 PCR Not Detected (Not Detect.); Coronavirus OC43 PCR Not Detected (Not Detect.); Human metapneumovirus PCR Not Detected (Not Detect.); Influenza A PCR Not Detected (Not Detect.); Influenza B PCR Not Detected (Not Detect.); Mycoplasma pneumoniae PCR Not Detected (Not Detect.); Parainfluenza 1 PCR Not Detected (Not Detect.); Parainfluenza 2 PCR Not Detected (Not Detect.); Parainfluenza 3 PCR Not Detected (Not Detect.); Parainfluenza 4 PCR Not Detected (Not Detect.); RSV PCR Not Detected (Not Detect.); Rhino/Enterovirus PCR Not Detected (Not Detect.); SARS-CoV-2 PCR Not Detected (Not Detect.)
--- NOTE | 2022-12-15 13:29 | P.CDIM_ITS ---
PROVIDER RESPONSE TEXT: To clarify, the appropriate diagnosis supported by the clinical indicators: Mild intermittent QUERY TEXT: PHYSICIAN'S DOCUMENTATION REQUEST Date of Query: 12/15/2022 12:13 PM EDT Patient Name: Gail Multani Admit Date: 12/15/2022 Dear Eleni Hung, A review of the medical record indicates additional documentation may be needed. Please review below and update the documentation accordingly. Clinical indicators: H&P: Acute asthma exacerbation DuoNebs q.4h while awake and p.r.n. Continue Symbicort Based on the above, please clarify in the Progress Notes further specificity regarding the type of th e asthma: Mild intermittent Mild persistent Moderate persistent Severe Other specific to the diagnosis of asthma exacerbation please specify Other (explain)Clinically unable to determine (explain)Thank you, Kymberly Bhandari, CCS, CDIS Use of terms such as suspected, likely, concern for, or probable (associated with a specific diagnosi s that is being evaluated, monitored, or treated as if it exists) are acceptable and can be coded in the inpatient se tting, when documented at the time of discharge. Please use your independent medical judgment in providing your response. THIS QUERY IS PART OF THE PERMANENT MEDICAL RECORD
[2022-12-15] MEDS: oxyCODONE HCl Immed Release 5 MG TABLET PO (17:33)
[2022-12-15] MEDS: Ibuprofen 400 MG TABLET PO (17:33)
[2022-12-15] MEDS: Enoxaparin Sodium 40 MG/0.4 ML SYRINGE SUBCUT (21:46)
[2022-12-15] MEDS: traZODone HCL 50 MG TABLET PO (22:26)
[2022-12-16] VITALS (9 sets, daily range): BP systolic 124–157; BP diastolic 56–82; PULSE 82–106; RESP 16–20; TEMP 35.6–37; O2SAT 95–99
[2022-12-16] MEDS: Gabapentin 400 MG CAPSULE 800 MG PO ×2 (00:54→20:35)
[2022-12-16] MEDS: PARoxetine HCL 40 MG TABLET PO ×2 (00:54→20:35)
[2022-12-16] MEDS: Mirtazapine 15 MG TABLET PO ×2 (00:54→20:36)
[2022-12-16] MEDS: hydrOXYzine HCL 50 MG TABLET PO ×2 (00:54→22:49)
[2022-12-16] MEDS: Albuterol Sulfate (0.083%) 2.5 MG/3 ML VIAL.NEB INHALE (06:04)
[2022-12-16] MEDS: cefEPime HCl 2 GM in 0.9 % Sodium Chloride 50 ML IV ×3 (06:39→22:15)
[2022-12-16 07:09] LABS: HIV Num 2 0.05 S/CO; HIV Num 3 0.05 S/CO
[2022-12-16 07:10] LABS: HIV AB/AG Nonreactive (Nonreactive)
[2022-12-16 07:45] LABS: Anion Gap 14 (12-20); Blood Urea Nitrogen 15 mg/dL (9-16); Calcium 9.9 mg/dL (8.4-10.2); Carbon Dioxide 26 mmol/L (22-29); Chloride 101 mmol/L (96-108); Creatinine Clr Calc Pharmacy 77.4; Estimated Glomerular Filt Rate > 60; Glucose Random 303 mg/dL (60-115); Potassium 4.6 mmol/L (3.3-5.1); Sodium 136 mmol/L (135-145)
[2022-12-16] MEDS: Albuterol/Iprat 2.5/0.5MG 3 ML AMPUL.NEB INHALE ×4 (08:01→19:54)
--- NOTE | 2022-12-16 09:26 | PM.PNPUL ---
Subjective Subjective Date of Service: 12/16/22 Interval history: The patient was seen on exam. The patient overall is feeling better. She continues on the oxygen supplementation. She does have oxygen already steroids at home. She did respond well to the diuretics. Her lower extremity significantly improved. She has also been on some prednisone. I did review all her CT scans back from when she initially had COVID. Continues to have interstitial changes to some degree related to appy. Not superimposed asthma and also volume overload. The patient has had frequent readmissions. Will try to intervene by having her come to the outpatient pulmonary office right is to discharge to try to help treat her symptoms before they worsen to the point of having to be readmitted to the hospital. We are waiting for blood work requested. Objective Data Labs 12/15/22 05:11 12/16/22 05:41 Labs: Laboratory Results - last 24 hr 12/15/22 12/15/22 12/15/22 10:01 10:32 10:32 ESR 38 H Sodium Potassium Chloride Carbon Dioxide Anion Gap BUN Creatinine Estim Creat Clear Calc Estimated GFR Random Glucose Calcium Troponin I High Sens < 2.7 Urine Opiates Screen Urine Fentanyl Screen Ur Barbiturates Screen Ur Phencyclidine Scrn Ur Amphetamines Screen U Benzodiazepines Scrn Urine Cocaine Screen U Marijuana (THC) Screen Respiratory Panel [place] See Note Adenovirus (Rapid PCR) Not Detected B.pert (TEM-PCR) Not Detected B.parapertussis DNA PCR Not Detected C. pneumoniae DNA (PCR) Not Detected Coronavirus OC43 (PCR) Not Detected Coronavirus HKU1 (PCR) Not Detected Coronavirus 229E (PCR) Not Detected Coronavirus NL63 (PCR) Not Detected HIV 1&2 Ab/P24 Ag 4thGn Human Metapneumovir PCR Not Detected Influenza A (RT-PCR) Not Detected Influenza B (RT-PCR) Not Detected M. pneumoniae (PCR) Not Detected Parainfluenza 1 (PCR) Not Detected Parainfluenza 2 (PCR) Not Detected Parainfluenza 3 (PCR) Not Detected Parainfluenza 4 (PCR) Not Detected RSV (PCR) Not Detected Entero/Rhino (PCR) Not Detected SARS-CoV-2 RNA (RT-PCR) Not Detected 12/15/22 12/15/22 12/16/22 10:32 15:17 05:41 ESR Sodium 136 Potassium 4.6 Chloride 101 Carbon Dioxide 26 Anion Gap 14 BUN 15 Creatinine 0.86 Estim Creat Clear Calc 77.4 Estimated GFR > 60 Random Glucose 303 H Calcium 9.9 Troponin I High Sens Urine Opiates Screen Not Detected Urine Fentanyl Screen Not Detected Ur Barbiturates Screen Not Detected Ur Phencyclidine Scrn Not Detected Ur Amphetamines Screen Not Detected U Benzodiazepines Scrn Not Detected Urine Cocaine Screen Not Detected U Marijuana (THC) Screen Not Detected Respiratory Panel [place] Adenovirus (Rapid PCR) B.pert (TEM-PCR) B.parapertussis DNA PCR C. pneumoniae DNA (PCR) Coronavirus OC43 (PCR) Coronavirus HKU1 (PCR) Coronavirus 229E (PCR) Coronavirus NL63 (PCR) HIV 1&2 Ab/P24 Ag 4thGn Nonreactive Human Metapneumovir PCR Influenza A (RT-PCR) Influenza B (RT-PCR) M. pneumoniae (PCR) Parainfluenza 1 (PCR) Parainfluenza 2 (PCR) Parainfluenza 3 (PCR) Parainfluenza 4 (PCR) RSV (PCR) Entero/Rhino (PCR) SARS-CoV-2 RNA (RT-PCR) Microbiology Microbiology Results: Microbiology 12/14/22 22:25 Blood - Venous Blood Culture - Preliminary No growth after 24 hours. 12/14/22 22:25 Blood - Venous Blood Culture - Preliminary No growth after 24 hours. Review of Systems Review of Systems General: No malaise, unintentional weight los. fevers HEENT: No sore throat, nasal congestion, rhinorrhea, sinus pain, ear pain Cardiovascular: no pleuritic chest pain. No chest pressure, palpitations, or leg edema Respiratory: +sob, wheezing, productive cough GI: No abdominal pain, nausea, vomiting, diarrhea, constipation, melena, hematochezia : No dysuria, hematuria, increased urinary frequency MSK: No myalgia, back pain Neuro: No headaches, weakness, paresthesias Skin: No rashes or lesions Physical Exam Vital Signs: Vital Signs: Last Vital Signs Temp 96.8 F 12/16/22 07:49 Pulse 91 12/16/22 08:03 Resp 16 12/16/22 08:03 BP 128/56 L 12/16/22 07:49 Pulse Ox 96 12/16/22 07:49 O2 Del Method Nasal Cannula 12/16/22 07:49 O2 Flow Rate 3 12/16/22 07:49 Oxygen Flow Rate 3 12/14/22 13:53 BMI result Body Mass Index 33.2 Const: General: comfortable HEENT: Head: Yes normocephalic Neck: Neck: Yes supple Chest: Chest palpation & inspection: normal inspection of the chest Resp: Effort & Inspection: normal respiratory effort Auscultation: no crackles and diminished lung sounds Cardio: Rate: regular rate Rhythm: regular rhythm Heart sounds: S1 normal heart sound present and S2 normal heart sound present GI: Palpation (GI): Soft to palpation Skin: General skin exam: no rashes or lesions noted Extrem: General: Yes edema Procedures Date of Service Date of Service: 12/16/22 Assessment and Plan Assessment and plan (1) ILD (interstitial lung disease): Problem details: COVID related Status: Acute (2) Acute and chronic respiratory failure: Status: Acute (3) Chronic bronchitis: Status: Acute (4) Asthma exacerbation: Status: Acute (5) Lower extremity edema: Status: Acute Plan Slow prednisone taper diurses as tolerated continue 2L nasal cannula to keep pox>92% respiratory therapy Will have our office call her for an appt as outpt upon discharge Time Spent With Patient Time: Total time managing care of this patient today ____ minutes. Progress Note: Quality Stroke Does the patient have a stroke diagnosis?: No
[2022-12-16] MEDS: buPROPion HCl XL 300 MG TAB.ER.24H PO (09:32)
[2022-12-16] MEDS: NaPROXEN 500 MG TABLET PO ×2 (09:32→20:35)
[2022-12-16] MEDS: Omeprazole 20 MG CAPSULE.DR PO ×2 (09:32→20:36)
[2022-12-16] MEDS: methylPREDNISolone Sod Succ 40 MG/ML VIAL IVPUSH (09:33)
[2022-12-16] MEDS: Furosemide 40 MG/4 ML VIAL IVPUSH (09:33)
[2022-12-16] MEDS: 0.9 % Sodium Chloride Flush 3 ML SYRINGE IVFLUSH ×3 (09:35→20:36)
[2022-12-16 10:32] LABS: Estimated Average Glucose 180 mg/dL; Hemoglobin A1c % 7.9 % (<6.0)
[2022-12-16 10:33] LABS: Vancomycin Trough 10.5 mcg/mL (10.0-20.0)
[2022-12-16] MEDS: vancomycin HCL 1,500 MG in 0.9 % Sodium Chloride 500 ML 333.33 MG IV ×2 (11:39→22:47)
[2022-12-16 11:47] LABS: Glucose, Whole Blood 408 mg/dL (60-115)
--- NOTE | 2022-12-16 12:15 | MHC.CM.PN ---
pt lives with has a lock box managed [facility] she has her own ride home
[2022-12-16 15:19] LABS: MRSA Nasal PCR NEGATIVE (Negative); SA Nasal PCR POSITIVE (Negative)
[2022-12-16 16:22] LABS: Glucose, Whole Blood 417 mg/dL (60-115)
--- NOTE | 2022-12-16 16:37 | P.PNIM_ITS ---
Subjective Subjective Date of Service: 12/16/22 Interval History: seen and examined this morning follow up for pneumonia feeling better, still with productive cough no fever, chills Review of Systems Review of Systems: Yes all other systems are reviewed and are negative Constitutional Constitutional: Denies chills and Denies fever(s) Cardiovascular Cardiovascular: Denies chest pain and Denies dyspnea Respiratory Respiratory: Reports cough and Denies dyspnea Gastrointestinal Gastrointestinal: Denies abdominal pain Physical Exam Vital Signs: Vital Signs: Last Vital Signs Temp 98.6 F 12/16/22 15:19 Pulse 96 12/16/22 15:19 Resp 17 12/16/22 15:19 BP 141/82 H 12/16/22 15:19 Pulse Ox 98 12/16/22 15:19 O2 Del Method Nasal Cannula 12/16/22 15:19 O2 Flow Rate 2 12/16/22 15:19 Oxygen Flow Rate 3 12/14/22 13:53 BMI result Body Mass Index 33.2 Const: General: cooperative, comfortable, alert and awake Nutritional Appearance: overweight Orientation/consciousness: patient oriented x3 Resp: Other: dry crackles, diminished breath sounds GI: Inspection: No distended Palpation (GI): Soft to palpation and nontender Neuro: General: patient oriented x3, moves all extremities and CN's II-XI intact bilaterally Objective Data Active Medications Acetaminophen (Acetaminophen 325 Mg Tablet) 650 mg PO Q6H PRN PRN Reason: Pain, Mild (Pain Scale 1-3) Last Admin: 12/15/22 14:30 Dose: 650 mg Documented By: BETHANIE Albuterol Sulfate (Albuterol Sulfate (0.083%) 2.5 Mg/3 Ml Vial.Neb) 2.5 mg INHALE Q2H PRN PRN Reason: Shortness of Breath/Wheezing Last Admin: 12/16/22 06:04 Dose: 2.5 mg Documented By: KENZIE Albuterol/Ipratropium (Albuterol/Iprat 2.5/0.5mg 3 Ml Ampul.Neb) 3 ml INHALE RQ4H WHILE AWAKE [facility] Last Admin: 12/16/22 15:16 Dose: 3 ml Documented By: EMILEE Bupropion HCl (Bupropion Hcl Xl 300 Mg Tab.Er.24h) 300 mg PO DAILY [facility] Last Admin: 12/16/22 09:32 Dose: 300 mg Documented By: REYNALDO Dextrose (Dextrose 50 % 25 Gm/50 Ml Syringe) 25 gm IVPUSH Q15M PRN; Protocol PRN Reason: per Hypoglycemia Standing Ord. Dicyclomine HCl (Dicyclomine Hcl 10 Mg Capsule) 20 mg PO Q8H PRN PRN Reason: Pain, Severe (Pain Scale 7-10) Docusate Sodium (Docusate Sodium 100 Mg Capsule) 100 mg PO DAILY PRN PRN Reason: Constipation Enoxaparin Sodium (Enoxaparin Sodium 40 Mg/0.4 Ml Syringe) 40 mg SUBCUT Q24H KRYSTLE Last Admin: 12/15/22 21:46 Dose: 40 mg Documented By: MARIA GUADALUPE Fluticasone Propionate (Fluticasone Propionate Nasal 16 Gm [place]) 1 spray NOST RIL-B DAILY [facility] Last Admin: 12/16/22 10:04 Dose: Not Given Documented By: REYNALDO Non-Admin Reason: Med Not Available Gabapentin (Gabapentin 100 Mg Capsule) 100 mg PO BID PRN PRN Reason: Pain, Severe (Pain Scale 7-10) Gabapentin (Gabapentin 400 Mg Capsule) 800 mg PO BEDTIME KRYSTLE Last Admin: 12/16/22 00:54 Dose: 800 mg Documented By: MARIA GUADALUPE Glucose (Glucose Gel 15 Gm Gel..Gram.) 15 gm PO Q15M PRN; Protocol PRN Reason: per Hypoglycemia Standing Ord. Hydroxyzine HCl (Hydroxyzine Hcl 50 Mg Tablet) 50 mg PO QID PRN PRN Reason: Anxiety Last Admin: 12/16/22 00:54 Dose: 50 mg Documented By: MARIA GUADALUPE Cefepime HCl 2 gm/ Sodium (Chloride) 50 mls @ 100 mls/hr IV Q8H KRYSTLE Last Infusion: 12/16/22 16:07 Dose: 0 mls/hr Documented By: REYNALDO Vancomycin HCl 1,500 mg/ (Sodium Chloride) 500 mls @ 333.333 mls/hr IV Q12H KRYSTLE Last Infusion: 12/16/22 13:52 Dose: 0 mls/hr Documented By: REYNALDO Ibuprofen (Ibuprofen 400 Mg Tablet) 400 mg PO Q4H PRN PRN Reason: pain Last Admin: 12/15/22 17:33 Dose: 400 mg Documented By: REYNALDO Insulin Human Lispro (Insulin Lispro 100 Unit/Ml 3 Ml Vial) 0 unit SUBCUT QIDACHS KRYSTLE; Protocol Methylprednisolone Sodium Succinate (Methylprednisolone Sod Succ 40 Mg/Ml Vial) 40 mg IVPUSH Q12H [facility] Last Admin: 12/16/22 09:33 Dose: 40 mg Documented By: REYNALDO Mirtazapine (Mirtazapine 15 Mg Tablet) 15 mg PO BEDTIME [facility] Last Admin: 12/16/22 00:54 Dose: 15 mg Documented By: MARIA GUADALUPE Montelukast Sodium (Montelukast Sodium 10 Mg Tablet) 10 mg PO BEDTIME KRYSTLE Naproxen (Naproxen 500 Mg Tablet) 500 mg PO BID [facility] Last Admin: 12/16/22 09:32 Dose: 500 mg Documented By: REYNALDO Omeprazole (Omeprazole 20 Mg Capsule.Dr) 20 mg PO BID [facility] Last Admin: 12/16/22 09:32 Dose: 20 mg Documented By: REYNALDO Ondansetron HCl (Ondansetron Hcl 4 Mg/2 Ml Vial) 4 mg IVPUSH Q8H PRN PRN Reason: Nausea and Vomiting Last Admin: 12/15/22 09:04 Dose: 4 mg Documented By: MONTRELL Oxycodone HCl (Oxycodone Hcl Immed Release 5 Mg Tablet) 5 mg PO Q4H PRN PRN Reason: Headache Last Admin: 12/15/22 17:33 Dose: 5 mg Documented By: REYNALDO Paroxetine HCl (Paroxetine Hcl 40 Mg Tablet) 40 mg PO BEDTIME [facility] Last Admin: 12/16/22 00:54 Dose: 40 mg Documented By: MARIA GUADALUPE Pharmacy Consult (Consult Rx Vancomycin Dosing) 1 each MISCELLANE DAILY PRN PRN Reason: Consult order Polyethylene Glycol (Polyethylene Glycol 3350 17 Gm Powd.Pack) 17 gm PO DAILY PRN PRN Reason: Constipation Prazosin HCl (Prazosin Hcl 5 Mg Capsule) 5 mg PO BEDTIME KRYSTLE; Protocol Prazosin HCl (Prazosin Hcl 1 Mg Capsule) 2 mg PO BEDTIME KRYSTLE; Protocol Sodium Chloride (0.9 % Sodium Chloride Flush 3 Ml Syringe) 3 ml IVFLUSH QSHIFT [facility] Last Admin: 12/16/22 15:06 Dose: 3 ml Documented By: REYNALDO Sumatriptan Succinate (Sumatriptan Succinate 25 Mg Tablet) 25 mg PO DAILY PRN PRN Reason: Migraine Headache Labs 12/15/22 05:11 12/16/22 05:41 Labs: Laboratory Results - last 24 hr 12/15/22 12/16/22 12/16/22 15:17 05:41 09:39 Anion Gap 14 Estim Creat Clear Calc 77.4 Estimated GFR > 60 POC Glucose Random Glucose 303 H Estimat Average Glucose Hemoglobin A1c % Calcium 9.9 Nasal Screen MRSA (PCR) Nasal S. aureus Screen Nasal MRSA/S.aureus Interp Vancomycin Trough 10.5 HIV 1&2 Ab/P24 Ag 4thGn Nonreactive 12/16/22 12/16/22 12/16/22 09:39 11:35 13:00 Anion Gap Estim Creat Clear Calc Estimated GFR POC Glucose 408 H* Random Glucose Estimat Average Glucose 180 Hemoglobin A1c % 7.9 H Calcium Nasal Screen MRSA (PCR) NEGATIVE Nasal S. aureus Screen POSITIVE A Nasal MRSA/S.aureus Interp SEE NOTE Vancomycin Trough HIV 1&2 Ab/P24 Ag 4thGn 12/16/22 16:09 Anion Gap Estim Creat Clear Calc Estimated GFR POC Glucose 417 H* Random Glucose Estimat Average Glucose Hemoglobin A1c % Calcium Nasal Screen MRSA (PCR) Nasal S. aureus Screen Nasal MRSA/S.aureus Interp Vancomycin Trough HIV 1&2 Ab/P24 Ag 4thGn Microbiology Microbiology Results: Microbiology 12/14/22 22:25 Blood Culture - Preliminary Blood - Venous No growth after 24 hours. 12/14/22 22:25 Blood Culture - Preliminary Blood - Venous No growth after 24 hours. Assessment and Plan (1) ILD (interstitial lung disease): Status: Acute (2) Pneumonia: Status: Acute (3) Acute and chronic respiratory failure: Status: Acute Plan 42-year-old female with history of asthma, chronic bronchitis, chronic res piratory failure on 2 L supplemental O2 at baseline, depression/anxiety, history of lumbar disc herniation, migraines to be observed for asthma exacerbation with CAP. Acute asthma exacerbation DuoNebs q.4h while awake and p.r.n. wean methylprednisolone, transition to prednisone in am continue Symbicort Pulmonology following> try Lasix, will order 40 mg x 2 days Hospital-acquired pneumonia- recurrent admissions as above treated with IV abx CXR showing asymmetric patchy infiltrates in the right lung representing interval worsening from previous radiographic study from 12/10, was started on antibiotics but did not pick them up from pharmacy Continue vancomycin, cefepime check MRSA nares -d/c vanco if negative strep pneumo ag, legionella ag pending blood cultures negative to date seen by pulm - recommend slow pred taper upon discharge new diabetes hba1c 7.9 start SSI, follow POCs likely start metformin will need outpatient follow up Chronic hypoxemic respiratory failure no acute worsening of hypoxia baseline 2 L supplemental O2 mood disorder continue home meds GERD continue PPI migraines Imitrex p.r.n. DVT prophylaxis-Lovenox Attending Dr. Silva Full code Continue hospitalization for treatment of healthcare associated pneumonia requiring IV antibiotics and close monitoring Time Spent With Patient Time: Total time managing care of this patient today ____ minutes. Quality Stroke Does the patient have a stroke diagnosis?: No VTE Prior VTE?: No VTE Risk Level:: Medical - moderate - high VTE Device Contraindication: Treatment Not Indicated VTE Drug Contraindication: N/A - Med Ordered
[2022-12-16] MEDS: Insulin Lispro 100 UNIT/ML 3 ML VIAL SUBCUT ×3 (16:55→20:36)
[2022-12-16 20:12] LABS: Glucose, Whole Blood 256 mg/dL (60-115)
[2022-12-16] MEDS: Prazosin HCL 5 MG CAPSULE PO (20:35)
[2022-12-16] MEDS: Prazosin HCL 1 MG CAPSULE 2 MG PO (20:35)
[2022-12-16] MEDS: Montelukast Sodium 10 MG TABLET PO (20:35)
[2022-12-16] MEDS: SUMAtriptan succinate 25 MG TABLET PO (20:36)
[2022-12-16] MEDS: Enoxaparin Sodium 40 MG/0.4 ML SYRINGE SUBCUT (22:19)
[2022-12-16 22:54] LABS: Immunoglobulin E 35 kU/L (<OR=114)
[2022-12-17] VITALS (8 sets, daily range): BP systolic 124–158; BP diastolic 62–82; PULSE 86–99; RESP 17–20; TEMP 36–36.5; O2SAT 94–99
[2022-12-17 06:07] LABS: Creatinine Clr Calc Pharmacy 75.7; Estimated Glomerular Filt Rate > 60
[2022-12-17] MEDS: cefEPime HCl 2 GM in 0.9 % Sodium Chloride 50 ML IV ×3 (06:23→22:57)
[2022-12-17 07:46] LABS: Glucose, Whole Blood 174 mg/dL (60-115)
[2022-12-17] MEDS: Albuterol/Iprat 2.5/0.5MG 3 ML AMPUL.NEB INHALE ×4 (08:50→20:15)
[2022-12-17 09:12] LABS: Vancomycin Random 14.2 mcg/mL (15-20)
--- NOTE | 2022-12-17 09:22 | HE.PHANOTE ---
RE MARISOL CONTINUE CURRENT REGIMEN. TROUGH OF 14.2 CORRELATES TO AUC OF 531. CONTINUE DUE TO RESP INFECTION. NEXT LEVEL DUE 12/18 @0900
[2022-12-17] MEDS: predniSONE 20 MG TABLET 40 MG PO (09:25)
[2022-12-17] MEDS: NaPROXEN 500 MG TABLET PO ×2 (09:25→21:11)
[2022-12-17] MEDS: Omeprazole 20 MG CAPSULE.DR PO ×2 (09:25→21:11)
[2022-12-17] MEDS: buPROPion HCl XL 300 MG TAB.ER.24H PO (09:25)
--- NOTE | 2022-12-17 10:50 | P.DS_ITS ---
DS: Providers Provider Date of Service: 12/18/22 Date of admission: 12/15/22 10:24 Date of discharge: 12/18/22 Primary care physician: Tatum Magdaleno MD Consults: 12/14/22 22:02 Consult to Pulmonology Routine Consulting Provider: [facility] Reason for consultation: poorly controlled asthma with monthly admissions Attending physician on discharge: Joni Wallace Discharging clinician: Lizbeth Tristan DS: Diagnosis Discharge Diagnosis (1) ILD (interstitial lung disease): Status: Acute (2) Pneumonia: Status: Acute (3) Acute and chronic respiratory failure: Status: Acute DS: Summary Hospital Course Hospital Course: From H&P on the day of admission 42-year-old female with history of asthma, chronic bronchitis, chronic respiratory failure on 2 L supplemental O2 at baseline, depression/anxiety, history of lumbar disc herniation, migraines presented to the ED earlier today for evaluation of shortness of breath, wheezing, productive cough, fevers of up to 101, and headache.? She was seen in the ED 4 days ago and diagnosed with asthma exacerbation and pneumonia and prescribed prednisone and cefuroxime 500 mg twice daily.? Unfortunately, the patient was not able to obtain the prescription from her pharmacy which were supposed to be delivered today and has developed worsening symptoms.? She also states that she sustained a fall 2 days ago that was mechanical in nature after she tripped over her oxygen tubing landing on her chest and head.? Not on any blood thinners.? She has had recurrent admissions for asthma exacerbation.? 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 She does report compliance with her ma intenance medications but has noted increase in albuterol usage.? On arrival, vital stable, briefly tachypneic to 22 with mildly elevated heart rates up to 94.? She is maintaining oximetry 95-97% on 2 L supplemental O2 which is her baseline.? There is a mild leukocytosis of 11.9.? Renal function normal, electrolyte levels normal.? COVID-[address] negative for any acute intracranial abnormality.? Cervical spine CT negative for any cervical spine fracture, subluxation, or dislocation.? There is noted to be a faint right upper lobe opacity consistent with pneumonia.? Chest x-ray in agreement showing asymmetric patchy infiltrates in the right lung representing interval worsening from the most recent radiographic study.? There is similar appearance to the October studies. In the ed has been treated with 500 mg cefuroxime, 60 mg prednisone, DuoNeb, 2 g magnesium with minimal improvement in symptoms. Acute asthma exacerbation She was treated with schedule and prn breathing treatments as well as solu medrol. This was weaned to po prednisone. She received a few doses of lasix with good effect. spoke with respiratory about getting new nebulizer machine, pt needs to call company for replacement. CXR showing asymmetric patchy infiltrates in the right lung representing interval worsening from previous radiographic study from 12/10, was previously started on antibiotics but did not pick them up from pharmacy. She was treated with cefepime and vanco. MRSA nares were negative and vanco was discontinued. strep pneumo ag, legionella ag pending at the time of discharge. blood cultures negative to date. She was seen by pulmonology who recommend slow prednisone taper upon discharge and outpatient follow up. She will also complete course of antibiotics. new diabetes Her random blood sugars were noted to be elevated. hba1c was checked and also elevated at 7.9. insulin sliding scale was initiated and she will be started on metformin upon discharge. She had education on how to check blood sugar in the hospital and will be discharged with glucometer and testing supplies. She is encouraged to follow up with PCP. Time Spent with Patient Time attestation: Total time managing care of this patient today ____ minutes. Discharge coordination time: Greater than 30 minutes Quality: Safe Use of Opioids Does Pt have an Active Cancer Diagnosis on the Problem List?: No Quality: Stroke Does the patient have a stroke diagnosis?: No Physical Exam Vital Signs: Vital Signs: Last Vital Signs Temp 96.8 F 12/17/22 08:00 Pulse 95 12/17/22 08:51 Resp 18 12/17/22 08:51 BP 136/82 12/17/22 08:00 Pulse Ox 94 12/17/22 08:00 O2 Del Method Nasal Cannula 12/17/22 08:00 O2 Flow Rate 2 12/17/22 08:00 Oxygen Flow Rate 3 12/14/22 13:53 BMI result Body Mass Index 33.2 DS: Data Data Completed and Pending Completed studies during hospitalization [Text1]: Procedures Assistance with Respiratory Ventilation, Less than 24 Consecutive Hours, Continuous Positive Airway Pressure (04/23/22) Insertion of Endotracheal Airway into Trachea, Via Natural or Artificial Opening (04/23/22) Insertion of Infusion Device into Superior Vena Cava, Percutaneous Approach (04/23/22) Introduction of Baricitinib into Mouth and Pharynx, External Approach, [employer] (04/23/22) Introduction of Vasopressor into Peripheral Vein, Percutaneous Approach (04/23/22) Respiratory Ventilation, Greater than 96 Consecutive Hours (04/23/22) Ultrasonography of Superior Vena Cava, Guidance (04/23/22) Labs on day of discharge: Laboratory Results - last 24 hr 12/15/22 12/16/22 12/16/22 15:17 11:35 13:00 Creatinine Estim Creat Clear Calc Estimated GFR POC Glucose 408 H* Nasal Screen MRSA (PCR) NEGATIVE Nasal S. aureus Screen POSITIVE A Nasal MRSA/S.aureus Interp SEE NOTE Random Vancomycin IgE 35 12/16/22 12/16/22 12/17/22 16:09 20:09 05:34 Creatinine 0.88 Estim Creat Clear Calc 75.7 Estimated GFR > 60 POC Glucose 417 H* 256 H Nasal Screen MRSA (PCR) Nasal S. aureus Screen Nasal MRSA/S.aureus Interp Random Vancomycin IgE 12/17/22 12/17/22 07:42 08:55 Creatinine Estim Creat Clear Calc Estimated GFR POC Glucose 174 H Nasal Screen MRSA (PCR) Nasal S. aureus Screen Nasal MRSA/S.aureus Interp Random Vancomycin 14.2 L IgE Preliminary micro results at discharge 12/14/22 22:25 Blood Culture - Preliminary Blood - Venous No growth after 48 hours. 12/14/22 22:25 Blood Culture - Preliminary Blood - Venous No growth after 48 hours. Discharge Plan Discharge Anticipated Discharge Date/Time: 12/18/22 10:21 Patient Disposition: Home Health Service Discharge Diagnosis: pneumonia new onset diabetes Referrals: Tatum Magdaleno MD [Primary Care Provider] - 1 Week Corwin Hung MD [Physician] - 1 Week Discharge Medications: New metformin 500 mg tablet 500 mg PO BID 30 Days Qty: 60 0RF prednisone 10 mg tablet See Taper PO DIRECTED Qty: 70 0RF Taper: Prednisone 40 mg daily for 7 Days and 0 Hour 30 mg daily for 7 Days and 0 Hour 20 mg daily for 7 Days and 0 Hour 10 mg daily for 7 Days and 0 Hour Rx Instructions: see taper instructions amoxicillin-pot clavulanate 875-125 mg tablet 1 tab PO BID 6 Days Qty: 12 0RF doxycycline hyclate 100 mg tablet 100 mg PO BID 6 Days Qty: 12 0RF (DME) FreeStyle Lite Strips Strip Qty: 100 0RF Rx Instructions: Test four times a day or as directed. (DME) blood-glucose meter [FreeStyle Lite Meter] Kit Qty: 1 0RF Rx Instructions: As Directed alcohol swabs Pads, Medicated 1 pad TOPICAL QIDACHS Qty: 100 0RF Rx Instructions: Use four times a day or as directed. (DME) lancets [FreeStyle Lancets] 28 gauge misc Qty: 100 0RF Rx Instructions: Test four times a day or as directed. Continued albuterol sulfate 2.5 mg /3 mL (0.083 %) solution for nebulization 2.5 mg inhalation Q6H PRN (Reason: wheezing) riboflavin (vitamin B2) [Vitamin B-2] 100 mg tablet 200 mg PO Q12H sumatriptan succinate 25 mg tablet 25 mg PO DAILY PRN (Reason: Migraine Headache) gabapentin 400 mg capsule 800 mg PO BEDTIME hydroxyzine pamoate 50 mg capsule 50 mg PO QID PRN (Reason: Anxiety) prazosin [Minipress] 5 mg capsule 5 mg PO BEDTIME Rx Instructions: TAKE WITH 2MG nicotine (polacrilex) 4 mg gum 4 mg PO Q2H PRN (Reason: Nicotine Cravings) pantoprazole 40 mg tablet,delayed release (DR/EC) 40 mg PO BID triamcinolone acetonide 55 mcg aerosol,spray 1 spray intranasal DAILY nicotine 21 mg/24 hr patch 24 hour 1 patch topical DAILY montelukast 10 mg tablet 10 mg PO BEDTIME cyanocobalamin (vitamin B-12) 1,000 mcg tablet, sublingual 1,000 mcg sublingual DAILY mirtazapine 15 mg tablet 15 mg PO BEDTIME gabapentin 100 mg capsule 100 mg PO BID PRN (Reason: Pain) albuterol sulfate [Ventolin HFA] 90 mcg/actuation HFA aerosol inhaler 2 puff inhalation Q6H dicyclomine 10 mg capsule 20 mg PO Q8H PRN (Reason: Pain) prazosin 2 mg capsule 2 mg PO BEDTIME Rx Instructions: TAKE WITH 5MG bupropion HCl [Wellbutrin XL] 300 mg tablet extended release 24 hr 300 mg PO DAILY budesonide-formoterol [Symbicort] 160-4.5 mcg/actuation HFA aerosol inhaler 2 puff INHALATION BID acetaminophen [Tylenol] 325 mg Tablet 650 mg PO Q6H PRN (Reason: Pain) polyethylene glycol 3350 17 gram powder in packet 17 g PO DAILY PRN (Reason: Constipation) meloxicam 15 mg tablet 15 mg PO DAILY PRN (Reason: Pain) ondansetron HCl 4 mg tablet 4 mg PO Q8H PRN (Reason: nausea/vomiting) paroxetine HCl 40 mg tablet 40 mg PO BEDTIME Discontinued prednisone 20 mg tablet 40 mg PO DAILY Qty: 10 0RF cefuroxime axetil 500 mg tablet 500 mg PO BID 7 Days Qty: 14 0RF Discharge Orders: Discharge Order (Routine); Ordered 12/18/22 Ordered By: Lizbeth Tristan Activity on Discharge: As tolerated Stand Alone Forms: Patient Portal Discharge page Care Plan Goals: see below Health Concerns: new onset diabetes pneumonia exacerbation of asthma Plan of Treatment: you have been diagnosed to have diabetes. your HbA1c was 7.9. you have been started on a new medication called metformin, please take as prescribed. check your blood sugar before meals and at bedtime, keep track of you blood sugars follow a diabetic diet. 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 This will no affect your ability to have future deliveries Assessment: see discharge summary Patient Instructions: Diabetes and Nutrition (GEN)
[2022-12-17 12:23] LABS: Glucose, Whole Blood 190 mg/dL (60-115)
[2022-12-17] MEDS: Insulin Lispro 100 UNIT/ML 3 ML VIAL SUBCUT ×3 (12:29→21:11)
[2022-12-17 12:58] LABS: Myeloperoxidase Antibody <1.0 AI; Proteinase 3 PR3 Antibodies <1.0 AI
[2022-12-17 13:47] LABS: Cyclic Citrullinated Peptide <16 UNITS
--- NOTE | 2022-12-17 14:01 | P.PNIM_ITS ---
Subjective Subjective Date of Service: 12/17/22 Interval History: Seen and examined this morning History obtained with the assistance of a photographers' model Patient does not feel ready to return home, states that her nebulizer machine is broken and she needs to get her prescriptions delivered Still was some wheezing and dyspnea on exertion Review of Systems Review of Systems: Yes all other systems are reviewed and are negative Constitutional Constitutional: Denies chills and Denies fever(s) Cardiovascular Cardiovascular: Denies chest pain and Reports dyspnea on exertion Respiratory Respiratory: Reports dyspnea on exertion Gastrointestinal Gastrointestinal: Denies abdominal pain Physical Exam Vital Signs: Vital Signs: Last Vital Signs Temp 96.8 F 12/17/22 08:00 Pulse 96 12/17/22 12:50 Resp 18 12/17/22 12:50 BP 136/82 12/17/22 08:00 Pulse Ox 94 12/17/22 08:00 O2 Del Method Nasal Cannula 12/17/22 08:00 O2 Flow Rate 2 12/17/22 08:00 Oxygen Flow Rate 3 12/14/22 13:53 BMI result Body Mass Index 33.2 Const: General: cooperative, comfortable, alert and awake Nutritional Appearance: overweight Orientation/consciousness: patient oriented x3 Resp: Other: diminished breath sounds GI: Inspection: No distended Palpation (GI): Soft to palpation and nontender Neuro: General: patient oriented x3, moves all extremities and CN's II-XI intact bilaterally Objective Data Active Medications Acetaminophen (Acetaminophen 325 Mg Tablet) 650 mg PO Q6H PRN PRN Reason: Pain, Mild (Pain Scale 1-3) Last Admin: 12/15/22 14:30 Dose: 650 mg Documented By: BETHANIE Albuterol Sulfate (Albuterol Sulfate (0.083%) 2.5 Mg/3 Ml Vial.Neb) 2.5 mg INHALE Q2H PRN PRN Reason: Shortness of Breath/Wheezing Last Admin: 12/16/22 06:04 Dose: 2.5 mg Documented By: KENZIE Albuterol/Ipratropium (Albuterol/Iprat 2.5/0.5mg 3 Ml Ampul.Neb) 3 ml INHALE RQ4H WHILE AWAKE KRYSTLE Last Admin: 12/17/22 12:49 Dose: 3 ml Documented By: SHIVAM Bupropion HCl (Bupropion Hcl Xl 300 Mg Tab.Er.24h) 300 mg PO DAILY [facility] Last Admin: 12/17/22 09:25 Dose: 300 mg Documented By: NAHED Dextrose (Dextrose 50 % 25 Gm/50 Ml Syringe) 25 gm IVPUSH Q15M PRN; Protocol PRN Reason: per Hypoglycemia Standing Ord. Dicyclomine HCl (Dicyclomine Hcl 10 Mg Capsule) 20 mg PO Q8H PRN PRN Reason: Pain, Severe (Pain Scale 7-10) Docusate Sodium (Docusate Sodium 100 Mg Capsule) 100 mg PO DAILY PRN PRN Reason: Constipation Enoxaparin Sodium (Enoxaparin Sodium 40 Mg/0.4 Ml Syringe) 40 mg SUBCUT Q24H [facility] Last Admin: 12/16/22 22:19 Dose: 40 mg Documented By: MARIA GUADALUPE Fluticasone Propionate (Fluticasone Propionate Nasal 16 Gm [place]) 1 spray NOSTRIL-B DAILY [facility] Last Admin: 12/17/22 09:26 Dose: Not Given Documented By: NAHED Non-Admin Reason: Patient Refused Gabapentin (Gabapentin 100 Mg Capsule) 100 mg PO BID PRN PRN Reason: Pain, Severe (Pain Scale 7-10) Gabapentin (Gabapentin 400 Mg Capsule) 800 mg PO BEDTIME [facility] Last Admin: 12/16/22 20:35 Dose: 800 mg Documented By: MARIA GUADALUPE Glucose (Glucose Gel 15 Gm Gel..Gram.) 15 gm PO Q15M PRN; Protocol PRN Reason: per Hypoglycemia Standing Ord. Hydroxyzine HCl (Hydroxyzine Hcl 50 Mg Tablet) 50 mg PO QID PRN PRN Reason: Anxiety Last Admin: 12/16/22 22:49 Dose: 50 mg Documented By: MARIA GUADALUPE Cefepime HCl 2 gm/ Sodium (Chloride) 50 mls @ 100 mls/hr IV Q8H [facility] Last Infusion: 12/17/22 08:04 Dose: 0 mls/hr Documented By: NAHED Ibuprofen (Ibuprofen 400 Mg Tablet) 400 mg PO Q4H PRN PRN Reason: pain Last Admin: 12/15/22 17:33 Dose: 400 mg Documented By: REYNALDO Insulin Human Lispro (Insulin Lispro 100 Unit/Ml 3 Ml Vial) 0 unit SUBCUT QIDACHS [facility]; Protocol Last Admin: 12/17/22 12:29 Dose: 2 unit Documented By: NAHED Mirtazapine (Mirtazapine 15 Mg Tablet) 15 mg PO BEDTIME [facility] Last Admin: 12/16/22 20:36 Dose: 15 mg Documented By: MARIA GUADALUPE Montelukast Sodium (Montelukast Sodium 10 Mg Tablet) 10 mg PO BEDTIME [facility] Last Admin: 12/16/22 20:35 Dose: 10 mg Documented By: MARIA GUADALUPE Naproxen (Naproxen 500 Mg Tablet) 500 mg PO BID [facility] Last Admin: 12/17/22 09:25 Dose: 500 mg Documented By: NAHED Omeprazole (Omeprazole 20 Mg Capsule.Dr) 20 mg PO BID [facility] Last Admin: 12/17/22 09:25 Dose: 20 mg Documented By: NAHED Ondansetron HCl (Ondansetron Hcl 4 Mg/2 Ml Vial) 4 mg IVPUSH Q8H PRN PRN Reason: Nausea and Vomiting Last Admin: 12/15/22 09:04 Dose: 4 mg Documented By: MONTRELL Paroxetine HCl (Paroxetine Hcl 40 Mg Tablet) 40 mg PO BEDTIME [facility] Last Admin: 12/16/22 20:35 Dose: 40 mg Documented By: MARIA GUADALUPE Polyethylene Glycol (Polyethylene Glycol 3350 17 Gm Powd.Pack) 17 gm PO DAILY PRN PRN Reason: Constipation Prazosin HCl (Prazosin Hcl 5 Mg Capsule) 5 mg PO BEDTIME [facility]; Protocol Last Admin: 12/16/22 20:35 Dose: 5 mg Documented By: MARIA GUADALUPE Prazosin HCl (Prazosin Hcl 1 Mg Capsule) 2 mg PO BEDTIME [facility]; Protocol Last Admin: 12/16/22 20:35 Dose: 2 mg Documented By: MARIA GUADALUPE Prednisone (Prednisone 20 Mg Tablet) 40 mg PO DAILY [facility] Last Admin: 12/17/22 09:25 Dose: 40 mg Documented By: NAHED Sodium Chloride (0.9 % Sodium Chloride Flush 3 Ml Syringe) 3 [facility] Last Admin: 12/17/22 09:26 Dose: Not Given Documented By: NAHED Non-Admin Reason: Previously Administered Sumatriptan Succinate (Sumatriptan Succinate 25 Mg Tablet) 25 mg PO DAILY PRN PRN Reason: Migraine Headache Last Admin: 12/16/22 20:36 Dose: 25 mg Documented By: MARIA GUADALUPE Labs 12/15/22 05:11 12/17/22 05:34 Labs: Laboratory Results - last 24 hr 12/15/22 12/15/22 12/15/22 10:32 10:32 15:17 Estim Creat Clear Calc Estimated GFR POC Glucose Nasal Screen MRSA (PCR) Nasal S. aureus Screen Nasal MRSA/S.aureus Interp Random Vancomycin IgE 35 Cycl Citrul Peptide IgG <16 Proteinase 3 (PR3) Ab <1.0 Myeloperoxidase Ab <1.0 12/16/22 12/16/22 12/16/22 13:00 16:09 20:09 Estim Creat Clear Calc Estimated GFR POC Glucose 417 H* 256 H Nasal Screen MRSA (PCR) NEGATIVE Nasal S. aureus Screen POSITIVE A Nasal MRSA/S.aureus Interp SEE NOTE Random Vancomycin IgE Cycl Citrul Peptide IgG Proteinase 3 (PR3) Ab Myeloperoxidase Ab 12/17/22 12/17/22 12/17/22 05:34 07:42 08:55 Estim Creat Clear Calc 75.7 Estimated GFR > 60 POC Glucose 174 H Nasal Screen MRSA (PCR) Nasal S. aureus Screen Nasal MRSA/S.aureus Interp Random Vancomycin 14.2 L IgE Cycl Citrul Peptide IgG Proteinase 3 (PR3) Ab Myeloperoxidase Ab 12/17/22 12:19 Estim Creat Clear Calc Estimated GFR POC Glucose 190 H Nasal Screen MRSA (PCR) Nasal S. aureus Screen Nasal MRSA/S.aureus Interp Random Vancomycin IgE Cycl Citrul Peptide IgG Proteinase 3 (PR3) Ab Myeloperoxidase Ab Microbiology Microbiology Results: Microbiology 12/14/22 22:25 Blood Culture - Preliminary Blood - Venous No growth after 48 hours. 12/14/22 22:25 Blood Culture - Preliminary Blood - Venous No growth after 48 hours. Assessment and Plan (1) Diabetes: Status: Acute (2) Acute asthma exacerbation: Status: Acute Plan 42-year-old female with history of asthma, chronic bronchitis, chronic respiratory failure on 2 L supplemental O2 at baseline, depression/anxiety, history of lumbar disc herniation, migraines to be observed for asthma exacerbation with CAP. Acute asthma exacerbation DuoNebs q.4h while awake and p.r.n. transitioned to prednisone with plan for long pred taper on discharge continue Symbicort Pulmonology following> s/p lasix x 2 spoke with respiratory about getting new nebulizer machine, pt needs to call company for replacement Hospital-acquired pneumonia- recurrent admissions as above treated with IV abx CXR showing asymmetric patchy infiltrates in the right lung representing interval worsening from previous radiographic study from 12/10, was started on antibiotics but did not pick them up from pharmacy Continue cefepime check MRSA nares negative with d/c vanco strep pneumo ag, legionella ag pending blood cultures negative to date seen by pulm - recommend slow pred taper upon discharge new diabetes hba1c 7.9 start SSI, follow POCs will start metformin on d/c will need outpatient follow up Chronic hypoxemic respiratory failure no acute worsening of hypoxia baseline 2 L supplemental O2 mood disorder continue home meds GERD continue PPI migraines Imitrex p.r.n. DVT prophylaxis-Lovenox Attending Dr. Silva Full code Continue hospitalization for treatment of healthcare associated pneumonia requiring IV antibiotics and close monitoring Time Spent With Patient Time: Total time managing care of this patient today ____ minutes. Quality Stroke Does the patient have a stroke diagnosis?: No VTE Prior VTE?: No VTE Risk Level:: Medical - moderate - high VTE Device Contraindication: Treatment Not Indicated VTE Drug Contraindication: N/A - Med Ordered
--- NOTE | 2022-12-17 14:44 | MHC.CM.PN ---
EMR REVIEWED. PT HAS NOT BEEN MEDICALLY CLEARED FOR DC HOME (STILL SOB/WHEEZING) CM WILL CONTINUE TO FOLLOW FOR ANY CHANGE IN PLAN/DC NEEDS. [facility] UPDATED VIA [facility]
[2022-12-17 16:12] LABS: Glucose, Whole Blood 328 mg/dL (60-115)
[2022-12-17] MEDS: SUMAtriptan succinate 25 MG TABLET PO (19:51)
[2022-12-17 20:43] LABS: Glucose, Whole Blood 283 mg/dL (60-115)
[2022-12-17] MEDS: Enoxaparin Sodium 40 MG/0.4 ML SYRINGE SUBCUT (21:11)
[2022-12-17] MEDS: Prazosin HCL 5 MG CAPSULE PO (21:11)
[2022-12-17] MEDS: Mirtazapine 15 MG TABLET PO (21:11)
[2022-12-17] MEDS: Prazosin HCL 1 MG CAPSULE 2 MG PO (21:11)
[2022-12-17] MEDS: Montelukast Sodium 10 MG TABLET PO (21:12)
[2022-12-17] MEDS: Gabapentin 400 MG CAPSULE 800 MG PO (21:12)
[2022-12-17] MEDS: PARoxetine HCL 40 MG TABLET PO (21:12)
[2022-12-17] MEDS: hydrOXYzine HCL 50 MG TABLET PO (22:57)
[2022-12-17] MEDS: 0.9 % Sodium Chloride Flush 3 ML SYRINGE IVFLUSH (23:50)
[2022-12-18 03:08] VITALS: BP 138/60; PULSE 82; RESP 14; TEMP 36; O2SAT 95
[2022-12-18 06:47] LABS: Creatinine Clr Calc Pharmacy 88.7; Estimated Glomerular Filt Rate > 60
[2022-12-18 06:54] VITALS: BP 129/74; PULSE 81; RESP 17; TEMP 36.6; O2SAT 94
[2022-12-18 07:19] LABS: Glucose, Whole Blood 138 mg/dL (60-115)
[2022-12-18] MEDS: NaPROXEN 500 MG TABLET PO (08:17)
[2022-12-18] MEDS: Omeprazole 20 MG CAPSULE.DR PO (08:18)
[2022-12-18] MEDS: cefEPime HCl 2 GM in 0.9 % Sodium Chloride 50 ML IV (08:18)
[2022-12-18] MEDS: predniSONE 20 MG TABLET 40 MG PO (08:18)
[2022-12-18] MEDS: 0.9 % Sodium Chloride Flush 3 ML SYRINGE IVFLUSH (08:18)
[2022-12-18] MEDS: buPROPion HCl XL 300 MG TAB.ER.24H PO (08:18)
[2022-12-18] MEDS: Albuterol/Iprat 2.5/0.5MG 3 ML AMPUL.NEB INHALE ×2 (08:35→11:52)
[2022-12-18 08:36] VITALS: PULSE 98; RESP 18; O2SAT 98
[2022-12-18 08:47] LABS: Vancomycin Random 2.4 mcg/mL (15-20)
[2022-12-18] MEDS: Fluticasone Propionate Nasal 16 GM SPRAY 1 SPRAY NOSTRIL-B (09:10)
--- NOTE | 2022-12-18 09:24 | MHC.CM.PN ---
Addendum entered by Ayanna Mendez 12/18/22 11:18: CM ME WITH PT WITH [employer] PT CONFIRMS [facility] IS HER ONLY PROVIDER AT THIS TIME SHE WAS INFORMED SHE CAN HAVE HER MEDS PICKED UP FROM [facility] WITHOUT HER DELIVERY SERVICES BEING INTERRUPTED SHE CONFIRMS HER WILL BE PICKING HER UP SHE WAS ALSO REMINDED SHE MUST CALL [employer] TO HAVE HER NEBULIZER CHANGED [facility] WAS PROVIDED WITH [facility], F2F AND NOTICE OF DC VIA [facility] Original Note: CM INFORMED PT TOLD HOSPITALIST SHE WOULD BE UNABLE TO GET HER MEDS BEFORE TUESDAY PT REPORTED HER PHARMACY DELIVERS MEDS AND SHE IS NOT ALLOWED TO HAVE THEM PICKED UP OR THEY WILL STOP HER DELIVERY SERVICES CM CALLED THE PHARMACY [facility] [phone] AND SPOKE TO THE PHARMACIST WHO EXPLAINED THE DELIVERIES DO GO OUT ON TUESDAY MORNING, HOWEVER THEY WOULD NOT STOP HER DELIVERY SERVICE IF SHE WERE TO HAVE THE MEDS PICKED UP. PT ALSO C/O A BROKEN NEBULIZER, HOWEVER SHE HAS BEEN INFORMED BY RT AND HOSPITALIST THAT SHE MUST CALL FOR IT TO BE FIXED, THE COMPANY WILL NOT PROCESS A REQUEST FROM ANYONE OTHER THAN THE PATIENT.
[2022-12-18 11:06] LABS: Glucose, Whole Blood 269 mg/dL (60-115)
--- NOTE | 2022-12-18 11:15 | P.F2F_ITS ---
Service Date Service Date: 12/18/22 Encounter Date of encounter: 12/18/22 Reasons for Services Signs and symptoms assessed: needs group home for new diagnosis of diabetes Reason for group home: diabetic teaching, monitoring of unstable blood sugar and teach disease management MD Overseeing Care: Tatum Magdaleno Homebound: Leaving the home is medically contraindicated at this time without the asist of a device and/or another person due th the listed conditions above and below. Reason homebound: shortness of breath with minimal effort and weakness related to hospital stay Certification: Based on the above findings, I certify that this patient is confined to the home and needs intermittent group home care, physical therapy and/or speech therapy, or continues to need occupational therapy. The patient is under my care, and I have initiated the establishment of the plan of care. The patient will be followed by a physician who will periodically review the plan of care. Time Spent With Patient Time: Total time managing care of this patient today ____ minutes.
[2022-12-18 11:52] VITALS: PULSE 99; RESP 18; O2SAT 97
[2022-12-18] MEDS: Insulin Lispro 100 UNIT/ML 3 ML VIAL SUBCUT (11:59)
[2022-12-19 07:38] LABS: Legionella Ag Urine Not Detected (Not Detected)
[2022-12-20 03:39] LABS: Strep Pneumo Ag urine Not Detected (Not Detected)
[2022-12-20 07:33] LABS: Anti Nuclear Antibody Screen NEGATIVE (NEGATIVE)
[2022-12-22 14:43] LABS: Asperg fumigatus Precip Abs NEGATIVE (NEGATIVE); Micropoly faeni Abs NEGATIVE (NEGATIVE); Pigeon serum Abs NEGATIVE (NEGATIVE); Saccharo pora viridis Abs NEGATIVE (NEGATIVE); Thermo candidus Abs NEGATIVE (NEGATIVE); Thermoa vulgaris #1 NEGATIVE (NEGATIVE)
== END 2022-12-18 12:36 | disposition home health service (06) | DRG 141 ==
LOC: HO.ED 16:21 → HO.EDOVER 22:11 → HO.S3 12-15 14:16
PROVIDERS: Hospitalist; Nurse Practitioner Acute Care; Physician Assistant; Admitting Provider Physician Assistant; Emergency Provider Emergency Medicine; PCP Family Medicine; Visit Provider Physician Assistant Medical
DX: J45.21 Mild intermittent asthma with (acute) exacerbation (principal); J96.11 Chronic respiratory failure with hypoxia; J18.9 Pneumonia, unspecified organism; E11.9 Type 2 diabetes mellitus without complications; G43.909 Migraine, unspecified, not intractable, without status migrainosus; K21.9 Gastro-esophageal reflux disease without esophagitis; Y95 Nosocomial condition; Z99.81 Dependence on supplemental oxygen; F32.9 Major depressive disorder, single episode, unspecified; F41.1 Generalized anxiety disorder; Z20.822 Contact with and (suspected) exposure to COVID-19; Z86.16 Personal history of COVID-19; Z79.899 Other long term (current) drug therapy
CPT/HCPCS: 36415; 70450; 71046; 72125; 80048; 80076; 80202; 80307; 82565; 82785; 82947; 83036; 83605; 83880; 84484; 85025; 85610; 85652; 86021; 86038; 86200; 86331; 86606; 86609; 87040; 87389; 87449; 87633; 87635; 87640; 87641; 87899; 93005; 94640; 99285; J0692; J1650; J1940; J2405; J2920; J3370; J3371; J3475

== ENCOUNTER → 2022-12-14 21:42 | Outpatient (BNV) | payer OTHER, SELFPAY | PROVIDERS: Admitting Provider Physician Assistant; Emergency Provider Emergency Medicine; Visit Provider Hospitalist | DX: J84.9 Interstitial pulmonary disease, unspecified (principal); J96.20 Acute and chronic respiratory failure, unspecified whether with hypoxia or hypercapnia; J42 Unspecified chronic bronchitis; J45.901 Unspecified asthma with (acute) exacerbation; R60.0 Localized edema | CPT/HCPCS: 99223; 99232 ==

== ENCOUNTER → 2022-12-15 10:24 | Outpatient (BNV) | payer OTHER, SELFPAY | PROVIDERS: Admitting Provider Physician Assistant; Emergency Provider Emergency Medicine; Visit Provider Nurse Practitioner Acute Care | DX: J84.9 Interstitial pulmonary disease, unspecified (principal); J96.20 Acute and chronic respiratory failure, unspecified whether with hypoxia or hypercapnia | CPT/HCPCS: 99223; 99232; 99233; 99239; G0180 ==

== ENCOUNTER 2023-01-31 16:42 | Emergency (ER) | payer OTHER, SELFPAY ==
--- NOTE | 2023-01-31 17:05 | ED.SOB ---
HPI - SOB/Dyspnea General Chief Complaint: Asthma Stated Complaint: SOB Time Seen by Provider: 01/31/23 17:03 Source: patient Mode of arrival: ambulatory Limitations: no limitations History of Present Illness HPI Narrative: Patient 42 years old history of asthma/COPD COPD with interstitial lung disease secondary to COVID requiring mechanical ventilation in 04/15 on home oxygen 2 L 24 hours as needed active smoker quit smoking 3 months ago comes in for increased shortness of breath for last 10 days patient was seen by manager aviation and was given course of antibiotic for 10 days and prednisone which she taking 20 mg now for last 3 days shortness of breath getting worse no fever having cough with mucopurulent phlegm patient received 2 DuoNeb treatment and 125 mg Solu-Medrol and 2 g of magnesium and route was saturating 96% at 2 L when EMS came Related Data Home Medications Medication Instructions Recorded Confirmed acetaminophen 325 mg tablet 650 mg PO Q6H PRN Pain 11/16/22 12/14/22 (Tylenol) albuterol sulfate 2.5 mg/3 mL 2.5 mg inhalation Q6H PRN wheezing 11/16/22 12/14/22 (0.083 %) solution for nebulization albuterol sulfate 90 mcg/actuation 2 puff inhalation Q6H 11/16/22 12/14/22 aerosol inhaler (Ventolin HFA) budesonide-formoterol HFA 160 2 puff inhalation BID 11/16/22 12/14/22 mcg-4.5 mcg/actuation aerosol inhaler (Symbicort) bupropion HCl 300 mg 24 hr tablet, 300 mg PO DAILY 11/16/22 12/14/22 extended release (Wellbutrin XL) cyanocobalamin (vitamin B-12) 1,000 mcg sublingual DAILY 11/16/22 12/14/22 1,000 mcg sublingual tablet dicyclomine 10 mg capsule 20 mg PO Q8H PRN Pain 11/16/22 12/14/22 gabapentin 100 mg capsule 100 mg PO BID PRN Pain 11/16/22 12/14/22 gabapentin 400 mg capsule 800 mg PO BEDTIME 11/16/22 12/14/22 hydroxyzine pamoate 50 mg capsule 50 mg PO QID PRN Anxiety 11/16/22 12/14/22 meloxicam 15 mg tablet 15 mg PO DAILY PRN Pain 11/16/22 12/14/22 mirtazapine 15 mg tablet 15 mg PO BEDTIME 11/16/22 12/14/22 montelukast 10 mg tablet 10 mg PO BEDTIME 11/16/22 12/14/22 nicotine (polacrilex) 4 mg gum 4 mg PO Q2H PRN Nicotine Cravings 11/16/22 12/14/22 nicotine 21 mg/24 hr daily 1 patch topical DAILY 11/16/22 12/14/22 transdermal patch ondansetron HCl 4 mg tablet 4 mg PO Q8H PRN nausea/vomiting 11/16/22 12/14/22 pantoprazole 40 mg tablet,delayed 40 mg PO BID 11/16/22 12/14/22 release paroxetine HCl 40 mg tablet 40 mg PO BEDTIME 11/16/22 12/14/22 polyethylene glycol 3350 17 gram 17 g PO DAILY PRN Constipation 11/16/22 12/14/22 oral powder packet prazosin 2 mg capsule 2 mg PO BEDTIME 11/16/22 12/14/22 prazosin 5 mg capsule (Minipress) 5 mg PO BEDTIME 11/16/22 12/14/22 riboflavin (vitamin B2) 100 mg 200 mg PO Q12H 11/16/22 12/14/22 tablet (Vitamin B-2) sumatriptan succinate 25 mg tablet 25 mg PO DAILY PRN Migraine 11/16/22 12/14/22 Headache triamcinolone acetonide 55 mcg 1 spray intranasal DAILY 11/16/22 12/14/22 nasal spray aerosol Previous Rx's Medication Instructions Recorded alcohol swabs 1 pad topical QIDACHS #100 ea 12/17/22 amoxicillin 875 mg-potassium 1 tab PO BID 6 days #12 tabs 12/17/22 clavulanate 125 mg tablet blood sugar diagnostic (FreeStyle #100 ea 12/17/22 Lite Strips) blood-glucose meter (FreeStyle #1 ea 12/17/22 Lite Meter kit) doxycycline hyclate 100 mg tablet 100 mg PO BID 6 days #12 tabs 12/17/22 lancets 28 gauge (FreeStyle #100 ea 12/17/22 Lancets) metformin 500 mg tablet 500 mg PO BID 30 days #60 tabs 12/17/22 prednisone 10 mg tablet See Taper PO DIRECTED #70 tabs 12/17/22 benzonatate 200 mg capsule 200 mg PO TID PRN cough #30 caps 01/31/23 Allergies Allergy/AdvReac Type Severity Reaction Status Date / Time promethazine [From PHENERGAN] Allergy Unknown ITCHING Verified 12/14/22 13:52 codeine [CODEINE] AdvReac Unknown STOMACH Verified 12/14/22 13:52 UPSET morphine [MORPHINE] AdvReac Unknown MORE PAIN Verified 12/14/22 13:52 Review of Systems Review of Systems: Yes all other systems are reviewed and are negative [facility] Past Medical History Medical History Lower extremity edema ILD (interstitial lung disease) Panic attack as reaction to stress Recurrent major depression Generalized anxiety disorder Morbid obesity Sinus infection Disc herniation H. pylori infection Depression Migraine Asthma Surgical History History of Social History Social History Household Members: Spouse and Other Housing: Apartment Housing Other:: 2nd fl Do you presently have visiting nurse or other home services: No Alcohol intake: never Patient Tobacco Use Status: Never used Tobacco Tobacco use type: Cigarette Cigarette Packs Per Day: 2 Cigarettes Per Day: 5 Second Hand Smoke Exposure: Yes Advance Directives: Yes Advance Directives on File: Yes Advance Directives Date on File: 05/12/22 service: No Current occupational status: unemployed Physical Exam Vital Signs: Vital Signs: Last Vital Signs Temp 98.2 F 01/31/23 17:07 Pulse 99 01/31/23 21:18 Resp 20 01/31/23 21:18 BP 141/82 H 01/31/23 21:19 Pulse Ox 100 01/31/23 21:18 O2 Del Method Nasal Cannula 01/31/23 21:18 O2 Flow Rate 2 01/31/23 21:18 Oxygen Flow Rate 2 01/31/23 17:07 BMI result Body Mass Index 49.9 Appearance: Alert. Oriented X3. Mild respiratory distress Eyes: PERRLA, No Nystagmus ENT: Pharynx normal. Oral Mucosa moist Neck: Normal inspection. Neck supple. CVS: Normal heart rate and rhythm. Pulses normal. Respiratory: Mild respiratory distress. Equal air entry bilateral, bilateral wheezing and rhonchi Abdomen: Soft and nontender. Bowel sounds are present, no mass palpable, no CVA tenderness Skin: Skin warm and dry. Normal skin color. Normal skin turgor. Extremities: No lower extremity edema. No calf tenderness Neuro: Oriented X 3. No motor deficit. No sensory deficit.No cerebellar signs , cranial nerves II-XII intact Medications Administered Discontinued Medications Generic Name Dose Route Start Last Admin Trade Name Freq PRN Reason Stop Dose Admin Albuterol Sulfate 5 mg 01/31/23 20:55 01/31/23 21:02 Albuterol Sulfate (0.083%) 2.5 Mg/3 Ml Vial.Neb INHALE 01/31/23 20:56 5 mg ONCE ONE Administration Benzonatate 200 mg 01/31/23 20:56 01/31/23 21:19 Benzonatate 100 Mg Capsule PO 01/31/23 20:57 200 mg ONCE ONE Administration Medical Decision Making Medical Decision Making [facility] Narrative: Patient with asthma with chronic respiratory failure on steroids improved after nebulizing treatment given by the EMS patient advised to continue her prednisone aspirating 97% at room air Differential Diagnosis Differential Diagnoses: The differential diagnosis associated with the presentation includes Asthma exacerbation/pneumonia/pleural effusion/pneumothorax/CHF Admission/Observation Consideration of admission/observation: Escalation of care including admission/observation considered Lab Data [facility] Lab Attestation statement: I reviewed the patient's lab results. 01/31/23 18:42 01/31/23 18:42 Labs: Lab Results 01/31/23 01/31/23 Range/Units 18:42 18:52 WBC 12.9 H (4.8-10.8) X10*3/uL RBC 4.31 (4.20-5.50) X10*6/uL Hgb 11.1 L (12.0-16.0) g/dl Hct 35.6 L (37.0-47.0) % MCV 82.6 (80.0-98.0) fL MCH 25.8 L (27.0-33.0) pg MCHC 31.2 (31.0-35.0) g/dl RDW 15.1 (11.0-16.0) % Plt Count 371 (160-400) X10*3/uL MPV 9.5 (9.4-12.3) fL Immature Gran % (Auto) 0.3 (0.0-0.4) % Neut % (Auto) 86.7 H (45-73) % Lymph % (Auto) 8.6 L (20-40) % Victoria % (Auto) 2.2 (2-11) % Eos % (Auto) 1.7 (0-4) % Baso % (Auto) 0.5 (0-2) % Lymph # (Auto) 1.1 L (1.2-4.9) X10*3/uL Victoria # (Auto) 0.3 (0.1-1.2) X10*3/uL Eos # (Auto) 0.2 (0.0-0.4) X10*3/uL Baso # (Auto) 0.1 (0.0-0.2) X10*3/uL Abs Immat Gran (auto) 0.04 H (0.00-0.03) X10*3/uL Absolute Neuts (auto) 11.2 H (2.0-8.3) x10*3/uL Absolute Nucleated RBC 0.000 (0.0-0.012) X10*3/uL Nucleated RBC % (auto) 0.0 (0.0-0.2) /100WBC VBG pH 7.45 H (7.32-7.43) VBG pCO2 45 mmHg VBG pO2 130 mmHg VBG HCO3 32 H (22-26) mmol/L VBG O2 Saturation 100.0 % VBG Base Excess 7.3 mmol/L Sodium 139 (135-145) mmol/L Potassium 4.4 (3.3-5.1) mmol/L Chloride 104 (96-108) mmol/L Carbon Dioxide 25 (22-29) mmol/L Anion Gap 14 (12-20) BUN 15 (9-16) mg/dL Creatinine 0.72 (0.5-1.4) mg/dL Estim Creat Clear Calc 121.9 Estimated GFR > 60 Random Glucose 140 H (60-115) mg/dL Lactic Acid 1.9 (0.5-2.0) mmol/L Calcium 8.9 D (8.4-10.2) mg/dL Total Bilirubin 0.2 (0.0-1.0) mg/dL AST 16 (5-31) U/L ALT 35 H (0-31) U/L Alkaline Phosphatase 95 (39-117) U/L B-Natriuretic Peptide 14 (<100) pg/mL Total Protein 6.5 (6.5-8.0) g/dL Albumin 3.8 (3.5-5.0) g/dL COVID-19 ([facility]) Negative (Negative) COVID-19 Clin Com See Note Discharge Plan Discharge Clinical Impression: Asthma with acute exacerbation Patient Disposition: Home, Self-Care Instructions: Asthma (ED) Additional Instructions: Continue nebulizing treatment and prednisone as prescribed Follow with PCP if not better Cough drops as prescribed Prescriptions: New benzonatate 200 mg capsule 200 mg PO TID PRN (Reason: cough) Qty: 30 0RF No Action metformin 500 mg tablet 500 mg PO BID 30 Days Qty: 60 0RF prednisone 10 mg tablet See Taper PO DIRECTED Qty: 70 0RF Taper: Prednisone 40 mg daily for 7 Days and 0 Hour 30 mg daily for 7 Days and 0 Hour 20 mg daily for 7 Days and 0 Hour 10 mg daily for 7 Days and 0 Hour Rx Instructions: see taper instructions amoxicillin-pot clavulanate 875-125 mg tablet 1 tab PO BID 6 Days Qty: 12 0RF doxycycline hyclate 100 mg tablet 100 mg PO BID 6 Days Qty: 12 0RF (DME) FreeStyle Lite Strips Strip Qty: 100 0RF Rx Instructions: Test four times a day or as directed. (DME) blood-glucose meter [FreeStyle Lite Meter] Kit Qty: 1 0RF Rx Instructions: As Directed alcohol swabs Pads, Medicated 1 pad TOPICAL QIDACHS Qty: 100 0RF Rx Instructions: Use four times a day or as directed. (DME) lancets [FreeStyle Lancets] 28 gauge misc Qty: 100 0RF Rx Instructions: Test four times a day or as directed. albuterol sulfate 2.5 mg /3 mL (0.083 %) solution for nebulization 2.5 mg inhalation Q6H PRN (Reason: wheezing) riboflavin (vitamin B2) [Vitamin B-2] 100 mg tablet 200 mg PO Q12H sumatriptan succinate 25 mg tablet 25 mg PO DAILY PRN (Reason: Migraine Headache) gabapentin 400 mg capsule 800 mg PO BEDTIME hydroxyzine pamoate 50 mg capsule 50 mg PO QID PRN (Reason: Anxiety) prazosin [Minipress] 5 mg capsule 5 mg PO BEDTIME Rx Instructions: TAKE WITH 2MG nicotine (polacrilex) 4 mg gum 4 mg PO Q2H PRN (Reason: Nicotine Cravings) pantoprazole 40 mg tablet,delayed release (DR/EC) 40 mg PO BID triamcinolone acetonide 55 mcg aerosol,spray 1 spray intranasal DAILY nicotine 21 mg/24 hr patch 24 hour 1 patch topical DAILY montelukast 10 mg tablet 10 mg PO BEDTIME cyanocobalamin (vitamin B-12) 1,000 mcg tablet, sublingual 1,000 mcg sublingual DAILY mirtazapine 15 mg tablet 15 mg PO BEDTIME gabapentin 100 mg capsule 100 mg PO BID PRN (Reason: Pain) albuterol sulfate [Ventolin HFA] 90 mcg/actuation HFA aerosol inhaler 2 puff inhalation Q6H dicyclomine 10 mg capsule 20 mg PO Q8H PRN (Reason: Pain) prazosin 2 mg capsule 2 mg PO BEDTIME Rx Instructions: TAKE WITH 5MG bupropion HCl [Wellbutrin XL] 300 mg tablet extended release 24 hr 300 mg PO DAILY budesonide-formoterol [Symbicort] 160-4.5 mcg/actuation HFA aerosol inhaler 2 puff INHALATION BID acetaminophen [Tylenol] 325 mg Tablet 650 mg PO Q6H PRN (Reason: Pain) polyethylene glycol 3350 17 gram powder in packet 17 g PO DAILY PRN (Reason: Constipation) meloxicam 15 mg tablet 15 mg PO DAILY PRN (Reason: Pain) ondansetron HCl 4 mg tablet 4 mg PO Q8H PRN (Reason: nausea/vomiting) paroxetine HCl 40 mg tablet 40 mg PO BEDTIME Interventions: ED Discharge Assessment Last Done: 01/31/23 22:48 Discharge Date/Time: 01/31/23 22:48
[2023-01-31 17:07] VITALS: BP 107/77; BP 120/75; PULSE 101; PULSE 97; RESP 16; TEMP 36.8; O2SAT 96; O2SAT 98; BMI 49.9
[2023-01-31 18:50] VITALS: BP 107/49; PULSE 92; RESP 17; O2SAT 97
[2023-01-31 18:52] LABS: MANUAL DIFF FLAG NO
[2023-01-31 19:02] LABS: Basophils Absolute Auto 0.1 X10*3/uL (0.0-0.2); Basophils Percent Auto 0.5 % (0-2); Eosinophils Absolute Auto 0.2 X10*3/uL (0.0-0.4); Eosinophils Percent Auto 1.7 % (0-4); Hematocrit 35.6 % (37.0-47.0); Hemoglobin 11.1 g/dl (12.0-16.0); Imm Gran Abs Auto 0.04 X10*3/uL (0.00-0.03); Imm Gran Pct Auto 0.3 % (0.0-0.4); Lymphocytes Absolute Auto 1.1 X10*3/uL (1.2-4.9); Lymphocytes Percent Auto 8.6 % (20-40); Mean Corpuscular HGB Conc 31.2 g/dl (31.0-35.0); Mean Corpuscular Hemoglobin 25.8 pg (27.0-33.0); Mean Corpuscular Volume 82.6 fL (80.0-98.0); Mean Platelet Volume 9.5 fL (9.4-12.3); Monocytes Absolute Auto 0.3 X10*3/uL (0.1-1.2); Monocytes Percent Auto 2.2 % (2-11); Neutrophils Absolute Auto 11.2 x10*3/uL (2.0-8.3); Neutrophils Percent Auto 86.7 % (45-73); Platelet Count 371 X10*3/uL (160-400); Red Blood Count 4.31 X10*6/uL (4.20-5.50); Red Cell Distribution Width 15.1 % (11.0-16.0); White Blood Count 12.9 X10*3/uL (4.8-10.8)
[2023-01-31 19:08] LABS: Alanine Aminotransferase 35 U/L (0-31); Albumin Level 3.8 g/dL (3.5-5.0); Alkaline Phosphatase 95 U/L (39-117); Anion Gap 14 (12-20); Aspartate Amino Transferase 16 U/L (5-31); Bilirubin Total 0.2 mg/dL (0.0-1.0); Blood Urea Nitrogen 15 mg/dL (9-16); Calcium 8.9 mg/dL (8.4-10.2); Carbon Dioxide 25 mmol/L (22-29); Chloride 104 mmol/L (96-108); Creatinine Clr Calc Pharmacy 121.9; Estimated Glomerular Filt Rate > 60; Glucose Random 140 mg/dL (60-115); Potassium 4.4 mmol/L (3.3-5.1); Sodium 139 mmol/L (135-145); Total Protein 6.5 g/dL (6.5-8.0)
--- NOTE | 2023-01-31 19:44 | PC.NURSE ---
speaking full clear sentences. respirations even and unlabored. wheezing noted upon auscultating lung sounds. pt reports feeling relief with nebulizer tx/meds given via ems. vss. call carvalho within reach.
--- NOTE | 2023-01-31 20:51 | PC.NURSE ---
pt reports upper abd. discomfort; Dr. Garnett aware no further orders at this time. pt requests gingerale; given to help with sx.
[2023-01-31 21:05] VITALS: PULSE 94; RESP 16; O2SAT 98
--- NOTE | 2023-01-31 21:17 | PC.NURSE ---
pt receiving neb tx at this time.
[2023-01-31 21:18] VITALS: PULSE 99; RESP 20; O2SAT 100
[2023-01-31 21:19] VITALS: BP 141/82
--- NOTE | 2023-01-31 21:21 | PC.NURSE ---
slight expiratory wheezing noted; pt reporting breathing better and states I would like to go home.
--- NOTE | 2023-01-31 22:00 | PC.NURSE ---
ems transfer arranged as pt o2 dependent and did not have means to get home.
== END 2023-01-31 22:48 | disposition home or self-care (01) ==
PROVIDERS: Emergency Provider Internal Medicine; PCP Family Medicine
DX: J45.901 Unspecified asthma with (acute) exacerbation (principal); R06.02 Shortness of breath; Z87.891 Personal history of nicotine dependence; Z11.52 Encounter for screening for COVID-19; Z79.899 Other long term (current) drug therapy
CPT/HCPCS: 36415; 71045; 80053; 82803; 83605; 83880; 85025; 87040; 87635; 93005; 94640; 99284; 99285

== ENCOUNTER 2023-02-05 07:40 | Observation (INO) | payer OTHER, SELFPAY ==
[2023-02-05] VITALS (8 sets, daily range): BP systolic 119–160; BP diastolic 61–81; PULSE 92–105; RESP 20–28; TEMP 36.2–36.9; O2SAT 94–100; BMI 46.5; BMI 46.3
--- NOTE | ~2023-02-05 | CT_ITS ---
EXAMINATION: CT ABDOMEN AND PELVIS WITHOUT CONTRAST CLINICAL INFORMATION: Pain COMPARISON: None available. TECHNIQUE: Multidetector volumetric imaging was performed from the superior aspect of the liver through the pubic symphysis. Sagittal and coronal reformatted images were obtained on the technologist's workstation. This CT examination was performed using dose optimization techniques as appropriate, variously including the following: *Automated exposure control *Adjustment of mA and/or kV according to patient size (this includes techniques or standardized protocols for targeted exams where dose is matched to indication/reason for exam; i.e. extremities or head) *Use of iterative reconstruction technique DLP: 1030 mGy-cm FINDINGS: LUNG BASES: The visualized lung bases are unremarkable. LIVER, GALLBLADDER, AND BILIARY TREE: The liver is normal in size, shape, and attenuation. No focal hepatic lesion or biliary ductal dilatation is present. Gallbladder has been removed. PANCREAS: Unremarkable. SPLEEN: Unremarkable. ADRENAL GLANDS: Unremarkable. KIDNEYS AND URETERS: The kidneys are normal in size, shape, and attenuation. No hydronephrosis, hydroureter, or calculi seen. No perinephric stranding. BLADDER: Unremarkable. GASTROINTESTINAL TRACT: The small and large bowel are unremarkable. The appendix is unremarkable. ABDOMINAL WALL: No significant hernia is appreciated. LYMPH NODES: Normal. VASCULAR: Unremarkable. PELVIC VISCERA: Unremarkable. OSSEOUS STRUCTURES: Unremarkable. CT/CT abdomen pelvis wo IV con IMPRESSION: * No CT evidence of acute intra-abdominal process to explain patient's pain symptoms. * Normal appendix. * No kidney stones or hydronephrosis. * Status post cholecystectomy. Fleischner guidelines were followed.
--- NOTE | ~2023-02-05 | XR_ITS ---
EXAMINATION: XR chest 1V CLINICAL INFORMATION: Shortness of breath COMPARISON: 01/31/2023 TECHNIQUE: XR chest 1V Tubes and lines: None Lungs and pleura: Redemonstration of mild pulmonary vascular congestion, diffuse interstitial peribronchial wall thickening could be small airway disease. No lobar consolidation pneumonia. Heart and mediastinum: The mediastinum is within normal limits.. Bones/soft tissue: Skeletal structures included are normal for patient's age. XR/XR chest 1V IMPRESSION: * Redemonstration of mild vascular congestion. * Diffuse interstitial peribronchial wall thickening could be small airway disease. * No lobar consolidation pneumonia.
--- NOTE | 2023-02-05 07:46 | ED_ITS ---
HPI - General Adult General Chief complaint: Dyspnea Stated complaint: DIFF BREATHING HX ASTHMA Time Seen by Provider: 02/05/23 07:43 Source: patient and EMS Mode of arrival: EMS Limitations: no limitations History of Present Illness HPI narrative: This is a 42 year old female hx of asthma, copd , secondary lung disease, diabetes, obesity presenting to the emergency department shortness of breath, wheezing for the past few days, not responding to home treatments. Patient reports she still current smoker. She tells me she feels terrible reporting diffuse body aches and pains, fatigue and malaise. Denies sick contacts. Also reporting substernal chest pressure without radiation. Has a hard time telling me exactly what the pain feels like. Arrives and is speaking in short sentences and appears to be in acute distress. On a DuoNeb from EMS. Also on nasal cannula. Denies nausea, vomiting, abdominal pain, headache, vision changes, dizziness, fevers, chills, and diarrhea. Related Data Home Medications Medication Instructions Recorded Confirmed acetaminophen 325 mg tablet 650 mg PO Q6H PRN Pain 11/16/22 12/14/22 (Tylenol) albuterol sulfate 2.5 mg/3 mL 2.5 mg inhalation Q6H PRN wheezing 11/16/22 12/14/22 (0.083 %) solution for nebulization albuterol sulfate 90 mcg/actuation 2 puff inhalation Q6H 11/16/22 12/14/22 aerosol inhaler (Ventolin HFA) budesonide-formoterol HFA 160 2 puff inhalation BID 11/16/22 12/14/22 mcg-4.5 mcg/actuation aerosol inhaler (Symbicort) bupropion HCl 300 mg 24 hr tablet, 300 mg PO DAILY 11/16/22 12/14/22 extended release (Wellbutrin XL) cyanocobalamin (vitamin B-12) 1,000 mcg sublingual DAILY 11/16/22 12/14/22 1,000 mcg sublingual tablet dicyclomine 10 mg capsule 20 mg PO Q8H PRN Pain 11/16/22 12/14/22 gabapentin 100 mg capsule 100 mg PO BID PRN Pain 11/16/22 12/14/22 gabapentin 400 mg capsule 800 mg PO BEDTIME 11/16/22 12/14/22 hydroxyzine pamoate 50 mg capsule 50 mg PO QID PRN Anxiety 11/16/22 12/14/22 meloxicam 15 mg tablet 15 mg PO DAILY PRN Pain 11/16/22 12/14/22 mirtazapine 15 mg tablet 15 mg PO BEDTIME 11/16/22 12/14/22 montelukast 10 mg tablet 10 mg PO BEDTIME 11/16/22 12/14/22 nicotine (polacrilex) 4 mg gum 4 mg PO Q2H PRN Nicotine Cravings 11/16/22 12/14/22 nicotine 21 mg/24 hr daily 1 patch topical DAILY 11/16/22 12/14/22 transdermal patch ondansetron HCl 4 mg tablet 4 mg PO Q8H PRN nausea/vomiting 11/16/22 12/14/22 pantoprazole 40 mg tablet,delayed 40 mg PO BID 11/16/22 12/14/22 release paroxetine HCl 40 mg tablet 40 mg PO BEDTIME 11/16/22 12/14/22 polyethylene glycol 3350 17 gram 17 g PO DAILY PRN Constipation 11/16/22 12/14/22 oral powder packet prazosin 2 mg capsule 2 mg PO BEDTIME 11/16/22 12/14/22 prazosin 5 mg capsule (Minipress) 5 mg PO BEDTIME 11/16/22 12/14/22 riboflavin (vitamin B2) 100 mg 200 mg PO Q12H 11/16/22 12/14/22 tablet (Vitamin B-2) sumatriptan succinate 25 mg tablet 25 mg PO DAILY PRN Migraine 11/16/22 12/14/22 Headache triamcinolone acetonide 55 mcg 1 spray intranasal DAILY 11/16/22 12/14/22 nasal spray aerosol Previous Rx's Medication Instructions Recorded alcohol swabs 1 pad topical QIDACHS #100 ea 12/17/22 amoxicillin 875 mg-potassium 1 tab PO BID 6 days #12 tabs 12/17/22 clavulanate 125 mg tablet blood sugar diagnostic (FreeStyle #100 ea 12/17/22 Lite Strips) blood-glucose meter (FreeStyle #1 ea 12/17/22 Lite Meter kit) doxycycline hyclate 100 mg tablet 100 mg PO BID 6 days #12 tabs 12/17/22 lancets 28 gauge (FreeStyle #100 ea 12/17/22 Lancets) metformin 500 mg tablet 500 mg PO BID 30 days #60 tabs 12/17/22 prednisone 10 mg tablet See Taper PO DIRECTED #70 tabs 12/17/22 benzonatate 200 mg capsule 200 mg PO TID PRN cough #30 caps 01/31/23 Allergies Allergy/AdvReac Type Severity Reaction Status Date / Time promethazine [From PHENERGAN] Allergy Unknown ITCHING Verified 12/14/22 13:52 codeine [CODEINE] AdvReac Unknown STOMACH Verified 12/14/22 13:52 UPSET morphine [MORPHINE] AdvReac Unknown MORE PAIN Verified 12/14/22 13:52 Review of Systems 2 Review of Systems: Constitutional : No Weight loss, No Fever, No Chills, + Fatigue, + Malaise ENT/Mouth : No sore throat, No Rhinorrhea Eyes: No Eye Pain, No Swelling, No Redness Cardiovascular : No Chest Pain, + SOB, No Dyspnea on Exertion, No Orthopnea, No Edema, No Palpitations Respiratory : No Cough, No Sputum, + Wheezing Gastrointestinal : No Nausea, No Vomiting, No Diarrhea, No Constipation, No abdominal Pain, No Hematochezia, No Melena Genitourinary : No Dysuria, No Urinary Frequency, No Hematuria, Musculoskeletal : No joint pain, No Myalgias, No Joint Swelling Skin : No Skin Lesions, No rash Neuro : No Weakness, No Numbness, No Dizziness, No Headache Psych : No Anxiety/Panic, No Depression All other systems reviewed and are negative Yes all other systems are reviewed and are negative PMFSH Past Medical History Attestation statement: The following information was validated with the patient. Source: old records reviewed and nursing notes reviewed Medical History Lower extremity edema ILD (interstitial lung disease) Panic attack as reaction to stress Recurrent major depression Generalized anxiety disorder Morbid obesity Sinus infection Disc herniation H. pylori infection Depression Migraine Asthma Surgical History History of Social History Social History Household Members: Spouse and Other Housing: Apartment Housing Other:: 2nd fl Do you presently have visiting nurse or other home services: No Alcohol intake: never Patient Tobacco Use Status: Never used Tobacco Tobacco use type: Cigarette Cigarette Packs Per Day: 2 Cigarettes Per Day: 5 Second Hand Smoke Exposure: Yes Advance Directives: Yes Advance Directives on File: Yes Advance Directives Date on File: 05/12/22 service: No Current occupational status: unemployed Physical Exam ED Vital Signs: Vital Signs - 24 hr 02/05/23 07:49 02/05/23 08:04 02/05/23 10:01 Temperature 97.5 F 98.3 F Pulse Rate 96 95 103 H Respiratory Rate 24 H 28 H 20 Blood Pressure 119/67 141/77 H Pulse Oximetry 95 94 Oxygen Delivery Method Room Air Room Air BMI result Body Mass Index 46.5 vss Appearance: Alert.? Oriented X3.? Mild acute distress.? Head: Normocephalic, atraumatic, no step-offs or deformities Eyes: Pupils equal, round and reactive to light.? Neck: Normal inspection.? Neck supple.? CVS: Normal heart rate and rhythm.? Pulses normal.? Respiratory: Mild respiratory distress.? Breath sounds diminished b/l L>R, w/ wheezing expiratory b/l..? Abdomen: Soft and mild lower abdominal tender.? Skin: Skin warm and dry.? Normal skin color.? Normal skin turgor.? Extremities: No lower extremity edema.? No calf ttp. 5/5 strength to bilateral upper and lower extremities Back: No midline tenderness, no C-spine tenderness, full range of motion, no CVA tenderness bilaterally Neuro: Oriented X 3.? No motor deficit.? No sensory deficit. CN 2-12 intact Course Reevaluation(s) Reevaluation #1: Patient with leukocytosis however this appears to be around patient's baseline, a normocytic baseline anemia is also noted. Chemistry unremarkable. Patient is complaining of significant abdominal pain to the lower abdomen, states this is also been going on for few days however she did not tell me about a, no peritonitic signs, no signs of acute abdomen will rule out diverticulitis, appendicitis although unlikely. Most likely viral illness. Due to leukocytosis and patient's pain will go ahead and order CT abdomen. Urine still pending. Time: 10:02 Reevaluation #2: All CT of the abdomen. Urine still pending. Plan is for hospital admission patient scoring high on bronch protocol, still diminished. Saturations are stable however with ambulation patient feels winded. Time: 10:36 Medications Administered Discontinued Medications Generic Name Dose Route Start Last Admin Trade Name Boubacar PRN Reason Stop Dose Admin Albuterol Sulfate 7.5 mg/ 10 mg 02/05/23 07:54 02/05/23 08:03 Albuterol Sulfate 2.5 mg INHALE 02/05/23 07:55 10 mg ONCE ONE Administration Magnesium Sulfate 2 gm in 50 mls @ 25 mls/hr 02/05/23 08:06 02/05/23 10:05 Magnesium Sulfate/H2o IV 02/05/23 10:05 Infused ONCE ONE Infusion Methylprednisolone Sodium Succinate 125 mg 02/05/23 08:06 02/05/23 08:20 Methylprednisolone Sod Succ 125 Mg/2 Ml Vial IVPUSH 02/05/23 08:07 125 mg ONCE ONE Administration Medical Decision Making Medical Decision Making [facility] Narrative: 0745 42 yo f presents w/ sob and wheezing x 2 days worsening Given a duoneb by EMS Physical examination with mild lower abdominal tenderness, diminished breath sounds bilaterally and expiratory wheezing. Mild respiratory distress.? Breath sounds diminished b/l L>R, w/ wheezing expiratory b/l. Speaking in short sentences appears uncomfortable Likely asthma exacerbation vs chronic lung disease. Unlikely PE, PNA, acs, pneumothorax, flail chest. Abdominal discomfort likely viral in nature. Unlikely acute abdomen, mesenteric ischemia, diverticulitis, appendicitis, obstruction. Differential Diagnosis Differential Diagnoses: The differential diagnosis associated with the presentation includes Likely asthma exacerbation vs chronic lung disease. Unlikely PE, PNA, acs, pneumothorax, flail chest. Abdominal discomfort likely viral in nature. Unlikely acute abdomen, mesenteric ischemia, diverticulitis, appendicitis, obstruction. Admission/Observation Consideration of admission/observation: Escalation of care including admission/observation considered Consult Healthcare Provider Management of the patient was discussed with: Hospitalist Lab Data [facility] Lab Attestation statement: I reviewed the patient's lab results. 02/05/23 08:15 02/05/23 08:15 Labs: Lab Results 02/05/23 02/05/23 Range/Units 08:15 08:23 WBC 14.8 H (4.8-10.8) X10*3/uL RBC 4.21 (4.20-5.50) X10*6/uL Hgb 11.0 L (12.0-16.0) g/dl Hct 34.6 L (37.0-47.0) % MCV 82.2 (80.0-98.0) fL MCH 26.1 L (27.0-33.0) pg MCHC 31.8 (31.0-35.0) g/dl RDW 15.2 (11.0-16.0) % Plt Count 334 (160-400) X10*3/uL MPV 9.3 L (9.4-12.3) fL Immature Gran % (Auto) 0.5 H (0.0-0.4) % Neut % (Auto) 64.4 (45-73) % Lymph % (Auto) 19.3 L (20-40) % [place] % (Auto) 8.5 (2-11) % Eos % (Auto) 6.8 H (0-4) % Baso % (Auto) 0.5 (0-2) % Lymph # (Auto) 2.9 (1.2-4.9) X10*3/uL [place] # (Auto) 1.3 H (0.1-1.2) X10*3/uL Eos # (Auto) 1.0 H (0.0-0.4) X10*3/uL Baso # (Auto) 0.1 (0.0-0.2) X10*3/uL Abs Immat Gran (auto) 0.08 H (0.00-0.03) X10*3/uL Absolute Neuts (auto) 9.5 H (2.0-8.3) x10*3/uL Absolute Nucleated RBC 0.000 (0.0-0.012) X10*3/uL Nucleated RBC % (auto) 0.0 (0.0-0.2) /100WBC D-Dimer High Sensitivty < 150 NG/ML VBG pH 7.41 (7.32-7.43) VBG pCO2 47 mmHg VBG pO2 88 mmHg VBG HCO3 30 H (22-26) mmol/L VBG O2 Saturation 95.0 % VBG Base Excess 4.9 mmol/L Sodium 140 (135-145) mmol/L Potassium 4.7 (3.3-5.1) mmol/L Chloride 104 (96-108) mmol/L Carbon Dioxide 23 (22-29) mmol/L Anion Gap 18 (12-20) BUN 14 (9-16) mg/dL Creatinine 0.83 (0.5-1.4) mg/dL Estim Creat Clear Calc 109.1 Estimated GFR > 60 Random Glucose 101 (60-115) mg/dL Calcium 9.2 (8.4-10.2) mg/dL Magnesium 1.9 (1.6-2.6) mg/dL Total Bilirubin 0.4 (0.0-1.0) mg/dL AST 24 (5-31) U/L ALT 32 H (0-31) U/L Alkaline Phosphatase 92 (39-117) U/L Troponin I High Sens < 2.7 (<3.5-17.0) ng/L Total Protein 6.7 (6.5-8.0) g/dL Albumin 3.7 (3.5-5.0) g/dL COVID-19 ([facility]) Negative (Negative) COVID-19 Clin Com See Note Independent Interpretation I performed an independent interpretation of an: EKG (ventricular rate of 94 , pr normal qrs normla, qt/qt normal. ), Plain X-Ray (XR/XR chest 1V IMPRESSION: * Redemonstration of mild vascular congestion. * Diffuse interstitial peribronchial wall thickening could be small airway disease. * No lobar consolidation pneumonia.) and CT Scan (CT/CT abdomen pelvis wo IV con IMPRESSION: * No CT evidence of acute intra-abdominal process to explain patient's pain symptoms. * Normal appendix. * No kidney stones or hydronephrosis. * Status post cholecystectomy. ) Radiology Impression Discussion of test interpretation with radiology: I have reviewed the radiologist's reading. Chronic Conditions Patient?s care impacted by: Diabetes and Other (DANUTA, copd, asthma ) Critical Care Time Critical Care Time Critical Care Time: No Discharge Plan Discharge Clinical Impression: Asthma with exacerbation, Abdominal pain Patient Disposition: Admitted As Inpatient
--- NOTE | 2023-02-05 07:46 | ECG_ITS ---
Test Reason : DIFF BREATHING Blood Pressure : / mmHG Vent. Rate : 094 BPM Atrial Rate : 094 BPM P-R Int : 120 ms QRS Dur : 082 ms QT Int : 358 ms P-R-T Axes : 050 046 028 degrees QTc Int : 447 ms Normal sinus rhythm Possible Left atrial enlargement Borderline ECG When compared with ECG of 31-JAN-2023 17:18, No significant change was found Referred By: Margaret Bobby Electronically Signed By:ROSALIE MESA MD
[2023-02-05] MEDS: Albuterol Sulfate 7.5 MG, Albuterol Sulfate (0.083%) 2.5 MG 10 MG INHALE (08:03)
[2023-02-05] MEDS: methylPREDNISolone Sod Succ 125 MG/2 ML VIAL IVPUSH (08:20)
[2023-02-05] MEDS: Magnesium Sulfate/H2O 2 GM/50 ML PIGGYBACK IV (08:20)
[2023-02-05 08:21] LABS: MANUAL DIFF FLAG NO
[2023-02-05 08:22] LABS: Basophils Absolute Auto 0.1 X10*3/uL (0.0-0.2); Basophils Percent Auto 0.5 % (0-2); Eosinophils Percent Auto 6.8 % (0-4); Hematocrit 34.6 % (37.0-47.0); Imm Gran Abs Auto 0.08 X10*3/uL (0.00-0.03); Imm Gran Pct Auto 0.5 % (0.0-0.4); Lymphocytes Absolute Auto 2.9 X10*3/uL (1.2-4.9); Lymphocytes Percent Auto 19.3 % (20-40); Mean Corpuscular HGB Conc 31.8 g/dl (31.0-35.0); Mean Corpuscular Hemoglobin 26.1 pg (27.0-33.0); Mean Corpuscular Volume 82.2 fL (80.0-98.0); Mean Platelet Volume 9.3 fL (9.4-12.3); Monocytes Absolute Auto 1.3 X10*3/uL (0.1-1.2); Monocytes Percent Auto 8.5 % (2-11); Neutrophils Absolute Auto 9.5 x10*3/uL (2.0-8.3); Neutrophils Percent Auto 64.4 % (45-73); Platelet Count 334 X10*3/uL (160-400); Red Blood Count 4.21 X10*6/uL (4.20-5.50); Red Cell Distribution Width 15.2 % (11.0-16.0); White Blood Count 14.8 X10*3/uL (4.8-10.8)
--- NOTE | 2023-02-05 08:26 | PC.NURSE ---
alert and oriented, tachypneic with audible wheezing. respiratory at bedside for bronch protocol, iv established labs drawn and sent. pt placed on 2L nasal cannula - 92% on room air, now 96%.
[2023-02-05 08:29] LABS: VBG Base Excess 4.9 mmol/L; VBG HCO3 30 mmol/L (22-26); VBG pCO2 47 mmHg; VBG pH 7.41 (7.32-7.43); VBG pO2 88 mmHg
[2023-02-05 08:36] LABS: D Dimer High Sensitivity < 150 NG/ML
[2023-02-05 08:46] LABS: Troponin-I High Sensitivity < 2.7 ng/L (<3.5-17.0)
[2023-02-05 08:49] LABS: Alanine Aminotransferase 32 U/L (0-31); Albumin Level 3.7 g/dL (3.5-5.0); Alkaline Phosphatase 92 U/L (39-117); Anion Gap 18 (12-20); Aspartate Amino Transferase 24 U/L (5-31); Bilirubin Total 0.4 mg/dL (0.0-1.0); Blood Urea Nitrogen 14 mg/dL (9-16); COVID-19 Test Negative (Negative); Calcium 9.2 mg/dL (8.4-10.2); Carbon Dioxide 23 mmol/L (22-29); Chloride 104 mmol/L (96-108); Creatinine Clr Calc Pharmacy 109.1; Estimated Glomerular Filt Rate > 60; Glucose Random 101 mg/dL (60-115); IDNOW Serial# 9DB6401D; Magnesium 1.9 mg/dL (1.6-2.6); Potassium 4.7 mmol/L (3.3-5.1); Sodium 140 mmol/L (135-145); Total Protein 6.7 g/dL (6.5-8.0)
--- NOTE | 2023-02-05 10:05 | PC.NURSE ---
complaining of abdominal pain, reporting some improvement with her breathing. awaiting CT scan results
[2023-02-05 10:23] LABS: Venous Blood Gas Refer to POC result
[2023-02-05 10:42] LABS: Lipase 7 U/L (8-78)
--- NOTE | 2023-02-05 11:55 | P.HPHOSP_ITS ---
History of Present Illness Date of Service: 02/05/23 Attending physician on admission: Gibson Alexander Chief Complaint: sob, wheezing 42-year-old female with history of asthma, interstitial lung disease since COVID-19, chronic respiratory failure on 2 L supplemental O2 at baseline, depression/anxiety, history of lumbar disc herniation, migraines who is a former smoker presented to the ED earlier today for evaluation of shortness of breath, wheezing, productive cough, subjective fevers, and chills that started yesterday. She denies any sick contacts at home. Has been using her albuterol inhaler without improvement. She has been noncompliant with oxygen use at home. Was recently admitted for asthma exacerbation and pneumonia 2 months ago and was seen by pulmonology and advised to follow up outpatient but has not yet done so. On arrival, patient is afebrile, tachypneic to 28, and tachycardic to 103 on admission following albuterol administration. There is leukocytosis of 14.8. Renal function and electrolyte levels are normal. Troponin is undetectable. BNP pending. Negative for COVID-19. Full viral respiratory panel pending. Chest x-ray shows redemonstration of mild vascular congestion with diffuse interstitial peribronchial wall thickening could be small airway disease no lobar consolidation pneumonia. She was also complaining of diffuse abdominal pain and has had a diarrhea x5 days. Reports having episodes every 10-15 minutes but has not had a bowel movement yet in the ED today. Lipase in the ED was 7, CT abdomen pelvis was negative for any acute intra-abdominal abnormality. In the ED, has received 10 mg albuterol, 2 g magnesium, 125 mg IV methylprednisolone. Despite this, our continues to score high on the bronch protocol with coarse lung sounds and diffuse expiratory wheezing. Review of Systems 2 Review of Systems: General: No fevers, malaise, unintentional weight loss HEENT: No blurred vision, diplopia. No sore throat, nasal congestion, rhinorrhea, sinus pain, ear pain Cardiovascular: No chest pain, palpitations, or leg edema Respiratory: + shortness of breath, wheezing, cough GI: +diarrhea. No abdominal pain, nausea, vomiting, constipation, melena, hematochezia : No dysuria, hematuria, increased urinary frequency, decreased urinary output MSK: No myalgia, back pain Neuro: No headaches, weakness, paresthesias Skin: No rashes or lesions [facility] Medical History Lower extremity edema ILD (interstitial lung disease) Panic attack as reaction to stress Recurrent major depression Generalized anxiety disorder Morbid obesity Sinus infection Disc herniation H. pylori infection Depression Migraine Asthma Surgical History History of Social History Household Members: Spouse and Other Housing: Apartment Housing Other:: 2nd fl Do you presently have visiting nurse or other home services: No Alcohol intake: never Patient Tobacco Use Status: Never used Tobacco Tobacco use type: Cigarette Cigarette Packs Per Day: 2 Cigarettes Per Day: 5 Second Hand Smoke Exposure: Yes Advance Directives: Yes Advance Directives on File: Yes Advance Directives Date on File: 05/12/22 service: No Current occupational status: unemployed Meds Allergies Allergy/AdvReac Type Severity Reaction Status Date / Time promethazine [From PHENERGAN] Allergy Unknown ITCHING Verified 12/14/22 13:52 codeine [CODEINE] AdvReac Unknown STOMACH Verified 12/14/22 13:52 UPSET morphine [MORPHINE] AdvReac Unknown MORE PAIN Verified 12/14/22 13:52 Active Medications: Current Medications Acetaminophen (Acetaminophen 325 Mg Tablet) 650 mg PO Q6H PRN PRN Reason: Pain, Mild (Pain Scale 1-3) Albuterol Sulfate (Albuterol Sulfate (0.083%) 2.5 Mg/3 Ml Vial.Neb) 2.5 mg INHALE Q2H PRN PRN Reason: Shortness of Breath/Wheezing Albuterol/Ipratropium (Albuterol/Iprat 2.5/0.5mg 3 Ml Ampul.Neb) 3 ml INHALE RQ4H WHILE AWAKE KRYSTLE Docusate Sodium (Docusate Sodium 100 Mg Capsule) 100 mg PO DAILY PRN PRN Reason: Constipation Enoxaparin Sodium (Enoxaparin Sodium 40 Mg/0.4 Ml Syringe) 40 mg SUBCUT Q24H KRYSTLE Guaifenesin (Guaifenesin 200 Mg/10 Ml 10 Ml Liquid) 10 ml PO Q4H PRN PRN Reason: Cough Methylprednisolone Sodium Succinate (Methylprednisolone Sod Succ 40 Mg/Ml Vial) 40 mg IVPUSH Q8H [facility] Ondansetron HCl (Ondansetron Hcl 4 Mg/2 Ml Vial) 4 mg IVPUSH Q8H PRN PRN Reason: Nausea and Vomiting Sodium Chloride (0.9 % Sodium Chloride Flush 3 Ml Syringe) 3 ml IVFLUSH QSHIFT [facility] Home Medications Medication Instructions Recorded Confirmed Last Taken Type acetaminophen 325 mg tablet 650 mg PO Q6H PRN Pain 11/16/22 02/05/23 Unknown History (Tylenol) albuterol sulfate 2.5 mg/3 mL 2.5 mg inhalation Q6H PRN wheezing 11/16/22 02/05/23 Unknown History (0.083 %) solution for nebulization albuterol sulfate 90 mcg/actuation 2 puff inhalation Q6H 11/16/22 02/05/23 Unknown History aerosol inhaler (Ventolin HFA) budesonide-formoterol HFA 160 2 puff inhalation BID 11/16/22 02/05/23 11/15/22 History mcg-4.5 mcg/actuation aerosol inhaler (Symbicort) bupropion HCl 300 mg 24 hr tablet, 300 mg PO DAILY 11/16/22 02/05/23 11/15/22 History extended release (Wellbutrin XL) cyanocobalamin (vitamin B-12) 1,000 mcg sublingual DAILY 11/16/22 02/05/23 11/15/22 History 1,000 mcg sublingual tablet dicyclomine 10 mg capsule 20 mg PO Q8H PRN Pain 11/16/22 02/05/23 Unknown History gabapentin 100 mg capsule 100 mg PO BID PRN Pain 11/16/22 02/05/23 Unknown History gabapentin 400 mg capsule 800 mg PO BEDTIME 11/16/22 02/05/23 11/15/22 History hydroxyzine pamoate 50 mg capsule 50 mg PO QID PRN Anxiety 11/16/22 02/05/23 Unknown History mirtazapine 15 mg tablet 15 mg PO BEDTIME 11/16/22 02/05/23 11/15/22 History montelukast 10 mg tablet 10 mg PO DAILY 11/16/22 02/05/23 11/15/22 History nicotine 21 mg/24 hr daily 1 patch topical DAILY PRN Nicotine 11/16/22 02/05/2311/15/23 History transdermal patch Cravings pantoprazole 40 mg tablet,delayed 40 mg PO BID 11/16/22 02/05/23 11/15/22 History release paroxetine HCl 40 mg tablet 40 mg PO BEDTIME 11/16/22 02/05/23 11/15/22 History polyethylene glycol 3350 17 gram 17 g PO DAILY PRN Constipation 11/16/22 02/05/23 Unknown History oral powder packet prazosin 2 mg capsule 2 mg PO BEDTIME 11/16/22 02/05/23 11/15/22 History prazosin 5 mg capsule (Minipress) 5 mg PO BEDTIME 11/16/22 02/05/23 11/15/22 History riboflavin (vitamin B2) 100 mg 200 mg PO DAILY 11/16/22 02/05/23 11/15/22 History tablet (Vitamin B-2) sumatriptan succinate 25 mg tablet 25 mg PO DAILY PRN Migraine 11/16/22 02/05/23 Unknown History Headache bupropion HCl 150 mg 24 hr tablet, 150 mg PO DAILY 02/05/23 02/05/23 Unknown History extended release Physical Exam 2 Vital Signs and Narrative: Vital Signs: Last Vital Signs Temp 98.3 F 02/05/23 10:01 Pulse 103 H 02/05/23 10:01 Resp 20 02/05/23 10:01 BP 141/77 H 02/05/23 10:01 Pulse Ox 94 02/05/23 10:01 O2 Del Method Room Air 02/05/23 10:01 BMI result Body Mass Index 46.5 Constitutional - Awake and Alert, No apparent distress Eyes - PERRLA, EOMI Cardiovascular - S1S2, RRR, No edema Respiratory - Normal lung expansion, increased respiratory effort, No respiratory distress, coarse lung sounds and diffuse expiratory wheezing bilaterally Gastrointestinal - NT / ND; +BS; No rebound or guarding Extremities - no calf tenderness bilaterally, no swelling Skin - Warm/Dry Neurological - Alert & oriented x3 Psychological - Appropriate affect Results Labs 02/05/23 08:15 02/05/23 08:15 Labs: Laboratory Results - last 24 hr 02/05/23 02/05/23 08:15 08:23 MCV 82.2 MCH 26.1 L MCHC 31.8 RDW 15.2 Plt Count 334 MPV 9.3 L Immature Gran % (Auto) 0.5 H Neut % (Auto) 64.4 Lymph % (Auto) 19.3 L [place] % (Auto) 8.5 Eos % (Auto) 6.8 H Baso % (Auto) 0.5 Lymph # (Auto) 2.9 [place] # (Auto) 1.3 H Eos # (Auto) 1.0 H Baso # (Auto) 0.1 Abs Immat Gran (auto) 0.08 H Absolute Neuts (auto) 9.5 H Absolute Nucleated RBC 0.000 Nucleated RBC % (auto) 0.0 D-Dimer High Sensitivty < 150 VBG pH 7.41 VBG pCO2 47 VBG pO2 88 VBG HCO3 30 H VBG O2 Saturation 95.0 VBG Base Excess 4.9 Anion Gap 18 Estim Creat Clear Calc 109.1 Estimated GFR > 60 Random Glucose 101 Calcium 9.2 Magnesium 1.9 Total Bilirubin 0.4 AST 24 ALT 32 H Alkaline Phosphatase 92 Total Protein 6.7 Albumin 3.7 Lipase 7 L COVID-19 ([facility]) Negative COVID-19 Clin Com See Note Imaging Radiologist's Impressions: Impressions Chest X-Ray 02/05/23 08:02 IMPRESSION: * Redemonstration of mild vascular congestion. * Diffuse interstitial peribronchial wall thickening could be small airway disease. * No lobar consolidation pneumonia. Abdomen/Pelvis CT 02/05/23 10:05 IMPRESSION: * No CT evidence of acute intra-abdominal process to explain patient's pain symptoms. * Normal appendix. * No kidney stones or hydronephrosis. * Status post cholecystectomy. Fleischner guidelines were followed. Assessment and Plan (1) Asthma with exacerbation: Status: Acute Plan 42-year-old female with history of asthma, interstitial lung disease since COVID-19, chronic respiratory failure on 2 L supplemental O2 at baseline, depression/anxiety, history of lumbar disc herniation, migraines who is a former smoker to be observed for acute asthma exacerbation. #Acute asthma exacerbation complicated by obesity hypoventilation syndrome -cxr negative for pneumonia -40 mg IV methylprednisolone q.8h -DuoNebs q.4h while awake -albuterol p.r.n. -negative for COVID-19, full viral respiratory panel pending -continue maintenance inhalers -Robitussin p.r.n. #SIRS -leukocytosis due to steroid use, not infection -tachycardia related to albuterol use -tachypnea related to asthma exacerbation # interstitial lung disease with chronic hypoxemic respiratory failure -continue 2 L supplemental O2 at rest, 3L with exertion, which she has been advised to use at baseline -outpatient follow-up- follows with [facility] pulkrunal # mood disorder -continue home meds # [id number] type 2 diabetes -last hemoglobin A1c 7.9% -Humalog on sliding scale -POC glucose -diabetic diet -hold metformin # chronic intermittent diarrhea -continue dicyclomine # morbid obesity -discussed the importance of weight loss for management of her chronic respiratory illnesses -encouraged weight loss efforts #Somatic pain disorder -continue gabapentin DVT prophylaxis-Lovenox Full code Time Spent With Patient Time: Total time managing care of this patient today ____ minutes. Quality Stroke Does the patient have a stroke diagnosis?: No VTE Prior VTE?: No VTE Risk Level:: Medical - moderate - high VTE Device Contraindication: Treatment Not Indicated VTE Drug Contraindication: N/A - Med Ordered
--- NOTE | 2023-02-05 12:04 | PHA.MEDREC ---
Pharmacy Consult ? Medication Reconciliation Pharmacy has completed the medication reconciliation. Spoke with patients visiting nurse Cade over the phone and confirmed the patients medications. Also verified with claim history. He mentioned that she finished prednisone course 3 days ago. [phone]
[2023-02-05 13:02] LABS: Glucose, Whole Blood 164 mg/dL (60-115)
[2023-02-05] MEDS: Enoxaparin Sodium 40 MG/0.4 ML SYRINGE SUBCUT (14:13)
--- NOTE | 2023-02-05 14:16 | PC.NURSE ---
bedside commode provided for patient, able to use commode independently. medicated per the MAR, placed on 2L nasal cannula per request/comfort. call carvalho within reach
[2023-02-05 14:25] LABS: B Type Natriuretic Peptide < 10 pg/mL (<100)
[2023-02-05] MEDS: Albuterol/Iprat 2.5/0.5MG 3 ML AMPUL.NEB INHALE ×2 (15:15→19:32)
[2023-02-05] MEDS: Omeprazole 20 MG CAPSULE.DR PO (15:38)
[2023-02-05] MEDS: 0.9 % Sodium Chloride Flush 3 ML SYRINGE IVFLUSH ×2 (15:50→20:58)
[2023-02-05 16:17] LABS: Glucose, Whole Blood 235 mg/dL (60-115)
[2023-02-05] MEDS: Insulin Lispro 100 UNIT/ML 3 ML VIAL SUBCUT ×2 (16:55→21:28)
[2023-02-05] MEDS: SUMAtriptan succinate 25 MG TABLET PO (17:10)
[2023-02-05] MEDS: Prazosin HCL 1 MG CAPSULE 2 MG PO (20:56)
[2023-02-05] MEDS: Mirtazapine 15 MG TABLET PO (20:56)
[2023-02-05] MEDS: Gabapentin 400 MG CAPSULE 800 MG PO (20:56)
[2023-02-05] MEDS: Prazosin HCL 5 MG CAPSULE PO (20:56)
[2023-02-05] MEDS: PARoxetine HCL 40 MG TABLET PO (20:56)
[2023-02-05] MEDS: Acetaminophen 325 MG TABLET 650 MG PO (20:57)
[2023-02-05 21:07] LABS: Glucose, Whole Blood 184 mg/dL (60-115)
[2023-02-05] MEDS: ondansetron HCL 4 MG/2 ML VIAL IVPUSH (21:24)
[2023-02-05 22:18] LABS: Appearance Urine Clear; Color Urine Yellow; Glucose Urine UA 500 mg/dL (Negative); Leukocyte Esterase Urine Negative (Negative); Nitrite Urine Negative (Negative); Specific Gravity - Urine 1.015 (1.005-1.025); Urine Blood Negative (Negative); Urine Ketones Negative (Negative); Urine Protein Negative (Neg-Trace)
[2023-02-06] VITALS (7 sets, daily range): BP systolic 117–141; BP diastolic 65–80; PULSE 91–104; RESP 18; TEMP 36.1–36.4; O2SAT 95–98
[2023-02-06] MEDS: methylPREDNISolone Sod Succ 40 MG/ML VIAL IVPUSH ×3 (05:48→21:21)
[2023-02-06 06:58] LABS: Basophils Percent Auto 0.2 % (0-2); Eosinophils Absolute Auto 0.2 X10*3/uL (0.0-0.4); Eosinophils Percent Auto 0.9 % (0-4); Hematocrit 33.7 % (37.0-47.0); Hemoglobin 10.5 g/dl (12.0-16.0); Imm Gran Abs Auto 0.12 X10*3/uL (0.00-0.03); Imm Gran Pct Auto 0.6 % (0.0-0.4); Lymphocytes Absolute Auto 2.3 X10*3/uL (1.2-4.9); Lymphocytes Percent Auto 11.8 % (20-40); MANUAL DIFF FLAG SCAN; Mean Corpuscular HGB Conc 31.2 g/dl (31.0-35.0); Mean Corpuscular Hemoglobin 25.7 pg (27.0-33.0); Mean Corpuscular Volume 82.6 fL (80.0-98.0); Mean Platelet Volume 9.8 fL (9.4-12.3); Monocytes Absolute Auto 1.6 X10*3/uL (0.1-1.2); Monocytes Percent Auto 8.2 % (2-11); Neutrophils Absolute Auto 15.1 x10*3/uL (2.0-8.3); Neutrophils Percent Auto 78.3 % (45-73); Platelet Count 356 X10*3/uL (160-400); Red Blood Count 4.08 X10*6/uL (4.20-5.50); Red Cell Distribution Width 15.2 % (11.0-16.0); SCAN SMEAR FLAG 1; White Blood Count 19.3 X10*3/uL (4.8-10.8)
[2023-02-06 07:12] LABS: Anion Gap 13 (12-20); Blood Urea Nitrogen 13 mg/dL (9-16); Calcium 8.9 mg/dL (8.4-10.2); Carbon Dioxide 26 mmol/L (22-29); Chloride 106 mmol/L (96-108); Creatinine Clr Calc Pharmacy 136.8; Estimated Glomerular Filt Rate > 60; Glucose Random 131 mg/dL (60-115); Potassium 4.3 mmol/L (3.3-5.1); Sodium 141 mmol/L (135-145)
[2023-02-06] MEDS: Acetaminophen 325 MG TABLET 650 MG PO (07:28)
[2023-02-06 07:29] LABS: SLIDE REVIEW VERIFIED
[2023-02-06] MEDS: 0.9 % Sodium Chloride Flush 3 ML SYRINGE IVFLUSH ×3 (07:30→20:14)
[2023-02-06 07:38] LABS: Glucose, Whole Blood 133 mg/dL (60-115)
[2023-02-06] MEDS: Albuterol/Iprat 2.5/0.5MG 3 ML AMPUL.NEB INHALE ×3 (07:56→15:11)
[2023-02-06] MEDS: Cyanocobalamin (Vitamin B-12) 1,000 MCG TABLET 1000 MCG PO (09:31)
[2023-02-06] MEDS: Fluticasone/Vilanterol 200/25 BLST.W.DEV 1 PUFF INHALE (09:31)
[2023-02-06] MEDS: buPROPion HCl XL 300 MG TAB.ER.24H PO (09:31)
[2023-02-06] MEDS: buPROPion HCl XL 150 MG TAB.ER.24H PO (09:31)
[2023-02-06] MEDS: Montelukast Sodium 10 MG TABLET PO (09:31)
[2023-02-06 09:56] LABS: Adenovirus PCR Not Detected (Not Detect.); Bordetella parapertussis PCR Not Detected (Not Detect.); Bordetella pertussis PCR Not Detected (Not Detect.); Chlamydia pneumoniae PCR Not Detected (Not Detect.); Coronavirus 229E PCR Not Detected (Not Detect.); Coronavirus HKU1 PCR Not Detected (Not Detect.); Coronavirus NL63 PCR Not Detected (Not Detect.); Coronavirus OC43 PCR Not Detected (Not Detect.); Human metapneumovirus PCR Not Detected (Not Detect.); Influenza A PCR Not Detected (Not Detect.); Influenza B PCR Not Detected (Not Detect.); Mycoplasma pneumoniae PCR Not Detected (Not Detect.); Parainfluenza 1 PCR Not Detected (Not Detect.); Parainfluenza 2 PCR Not Detected (Not Detect.); Parainfluenza 3 PCR Not Detected (Not Detect.); Parainfluenza 4 PCR Not Detected (Not Detect.); RSV PCR Not Detected (Not Detect.); Rhino/Enterovirus PCR Detected (Not Detect.)
--- NOTE | 2023-02-06 11:07 | HO.PM.IMPN ---
Subjective Subjective Date of Service: 02/06/23 Interval History: sob Physical Exam Vital Signs: Vital Signs: Last Vital Signs Temp 97.0 F 02/06/23 07:21 Pulse 101 H 02/06/23 07:57 Resp 18 02/06/23 07:57 BP 135/66 02/06/23 07:21 Pulse Ox 96 02/06/23 07:21 O2 Del Method Nasal Cannula 02/06/23 07:21 O2 Flow Rate 2 02/06/23 07:21 BMI result Body Mass Index 46.3 General: AO X 3, no acute distress Resp: mild wheezes bilateral, no accessory muscles used CVS: S1,S2,RRR GI: soft, non tender, non distended Neuro: motor grossly intact, alert Psych: appropriate affect, appropriate insight Objective Data Active Medications Acetaminophen (Acetaminophen 325 Mg Tablet) 650 mg PO Q6H PRN PRN Reason: Pain, Mild (Pain Scale 1-3) Last Admin: 02/06/23 07:28 Dose: 650 mg Documented By: NAHED Albuterol Sulfate (Albuterol Sulfate (0.083%) 2.5 Mg/3 Ml Vial.Neb) 2.5 mg INHALE Q2H PRN PRN Reason: Shortness of Breath/Wheezing Albuterol/Ipratropium (Albuterol/Iprat 2.5/0.5mg 3 Ml Ampul.Neb) 3 ml INHALE RQ4H WHILE AWAKE [facility] Last Admin: 02/06/23 07:56 Dose: 3 ml Documented By: YARELI Bupropion HCl (Bupropion Hcl Xl 150 Mg Tab.Er.24h) 150 mg PO DAILY [facility] Last Admin: 02/06/23 09:31 Dose: 150 mg Documented By: NAHED Bupropion HCl (Bupropion Hcl Xl 300 Mg Tab.Er.24h) 300 mg PO DAILY [facility] Last Admin: 02/06/23 09:31 Dose: 300 mg Documented By: NAHED Cyanocobalamin (Cyanocobalamin (Vitamin B-12) 1,000 Mcg Tablet) 1,000 mcg PO DAILY [facility] Last Admin: 02/06/23 09:31 Dose: 1,000 mcg Documented By: NAHED Dextrose (Dextrose 50 % 25 Gm/50 Ml Syringe) 25 gm IVPUSH Q15M PRN; Protocol PRN Reason: per Hypoglycemia Standing Ord. Dicyclomine HCl (Dicyclomine Hcl 10 Mg Capsule) 20 mg PO Q8H PRN PRN Reason: abd pain, diarrhea Docusate Sodium (Docusate Sodium 100 Mg Capsule) 100 mg PO DAILY PRN PRN Reason: Constipation Enoxaparin Sodium (Enoxaparin Sodium 40 Mg/0.4 Ml Syringe) 40 mg SUBCUT Q24H [facility] Last Admin: 02/05/23 14:13 Dose: 40 mg Documented By: BERNARDO Fluticasone/Vilanterol (Fluticasone/Vilanterol 200/25 Blst.W.Dev) 1 puff INHALE RDAILY [facility] Last Admin: 02/06/23 09:31 Dose: 1 puff Documented By: NAHED Gabapentin (Gabapentin 100 Mg Capsule) 100 mg PO BID PRN PRN Reason: neuropathy Gabapentin (Gabapentin 400 Mg Capsule) 800 mg PO BEDTIME [facility] Last Admin: 02/05/23 20:56 Dose: 800 mg Documented By: JAMES Glucose (Glucose Gel 15 Gm Gel..Gram.) 15 gm PO Q15M PRN; Protocol PRN Reason: per Hypoglycemia Standing Ord. Guaifenesin (Guaifenesin 200 Mg/10 Ml 10 Ml Liquid) 10 ml PO Q4H PRN PRN Reason: Cough Hydroxyzine HCl (Hydroxyzine Hcl 50 Mg Tablet) 50 mg PO QID PRN PRN Reason: Anxiety Insulin Human Lispro (Insulin Lispro 100 Unit/Ml 3 Ml Vial) 0 unit SUBCUT QIDACHS [facility]; Protocol Last Admin: 02/06/23 07:41 Dose: Not Given Documented By: NAHED Non-Admin Reason: No Insulin Coverage Methylprednisolone Sodium Succinate (Methylprednisolone Sod Succ 40 Mg/Ml Vial) 40 mg IVPUSH Q8H [facility] Last Admin: 02/06/23 05:48 Dose: 40 mg Documented By: JAMES Mirtazapine (Mirtazapine 15 Mg Tablet) 15 mg PO BEDTIME [facility] Last Admin: 02/05/23 20:56 Dose: 15 mg Documented By: JAMES Montelukast Sodium (Montelukast Sodium 10 Mg Tablet) 10 mg PO DAILY [facility] Last Admin: 02/06/23 09:31 Dose: 10 mg Documented By: NAHED Nicotine (Nicotine 21 Mg Patch.Td24) 21 mg TRANSDERMA DAILY PRN PRN Reason: Nicotine Cravings Omeprazole (Omeprazole 20 Mg Capsule.Dr) 20 mg PO BID@0630,1630 [facility] Last Admin: 02/06/23 05:51 Dose: Not Given Documented By: JAMES Non-Admin Reason: Patient Refused Ondansetron HCl (Ondansetron Hcl 4 Mg/2 Ml Vial) 4 mg IVPUSH Q8H PRN PRN Reason: Nausea and Vomiting Last Admin: 02/05/23 21:24 Dose: 4 mg Documented By: JAMES Paroxetine HCl (Paroxetine Hcl 40 Mg Tablet) 40 mg PO BEDTIME [facility] Last Admin: 02/05/23 20:56 Dose: 40 mg Documented By: JAMES Polyethylene Glycol (Polyethylene Glycol 3350 17 Gm Powd.Pack) 17 gm PO DAILY PRN PRN Reason: Constipation Prazosin HCl (Prazosin Hcl 5 Mg Capsule) 5 mg PO BEDTIME [facility]; Protocol Last Admin: 02/05/23 20:56 Dose: 5 mg Documented By: JAMES Prazosin HCl (Prazosin Hcl 1 Mg Capsule) 2 mg PO BEDTIME [facility]; Protocol Last Admin: 02/05/23 20:56 Dose: 2 mg Documented By: JAMES Sodium Chloride (0.9 % Sodium Chloride Flush 3 Ml Syringe) [facility] Admin: 02/06/23 07:30 Dose: 3 ml Documented By: NAHED Sumatriptan Succinate (Sumatriptan Succinate 25 Mg Tablet) 25 mg PO DAILY PRN PRN Reason: Migraine Headache Last Admin: 02/05/23 17:10 Dose: 25 mg Documented By: NAHED Labs 02/06/23 06:25 02/06/23 06:25 Labs: Laboratory Results - last 24 hr 02/05/23 02/05/23 02/05/23 12:56 13:42 13:51 MCV MCH MCHC RDW Plt Count MPV Immature Gran % (Auto) Neut % (Auto) Lymph % (Auto) [place] % (Auto) Eos % (Auto) Baso % (Auto) Lymph # (Auto) [place] # (Auto) Eos # (Auto) Baso # (Auto) Abs Immat Gran (auto) Absolute Neuts (auto) Absolute Nucleated RBC Nucleated RBC % (auto) Smear Tech's Comments Hold Purple Top SEE NOTE PT 12.0 INR 1.0 Anion Gap Estim Creat Clear Calc Estimated GFR POC Glucose 164 H Random Glucose Calcium B-Natriuretic Peptide < 10 Hold Red Top See Note Hold Green Top See Note Urine Color Urine Appearance Urine pH Ur Specific [place] Urine Protein Urine Glucose (UA) Urine Ketones Urine Blood Urine Nitrite Ur Leukocyte Esterase 02/05/23 02/05/23 02/05/23 16:13 21:00 22:02 MCV MCH MCHC RDW Plt Count MPV Immature Gran % (Auto) Neut % (Auto) Lymph % (Auto) [place] % (Auto) Eos % (Auto) Baso % (Auto) Lymph # (Auto) [place] # (Auto) Eos # (Auto) Baso # (Auto) Abs Immat Gran (auto) Absolute Neuts (auto) Absolute Nucleated RBC Nucleated RBC % (auto) Smear Tech's Comments Hold Purple Top PT INR Anion Gap Estim Creat Clear Calc Estimated GFR POC Glucose 235 H 184 H Random Glucose Calcium B-Natriuretic Peptide Hold Red Top Hold Green Top Urine Color Yellow Urine Appearance Clear Urine pH 8.0 Ur Specific [place] 1.015 Urine Protein Negative Urine Glucose (UA) 500 H Urine Ketones Negative Urine Blood Negative Urine Nitrite Negative Ur Leukocyte Esterase Negative 02/06/23 02/06/23 06:25 07:20 MCV 82.6 MCH 25.7 L MCHC 31.2 RDW 15.2 Plt Count 356 MPV 9.8 Immature Gran % (Auto) 0.6 H Neut % (Auto) 78.3 H Lymph % (Auto) 11.8 L [place] % (Auto) 8.2 Eos % (Auto) 0.9 Baso % (Auto) 0.2 Lymph # (Auto) 2.3 [place] # (Auto) 1.6 H Eos # (Auto) 0.2 Baso # (Auto) 0.0 Abs Immat Gran (auto) 0.12 H Absolute Neuts (auto) 15.1 H Absolute Nucleated RBC 0.000 Nucleated RBC % (auto) 0.0 Smear Tech's Comments VERIFIED Hold Purple Top PT INR Anion Gap 13 Estim Creat Clear Calc 136.8 Estimated GFR > 60 POC Glucose 133 H Random Glucose 131 H Calcium 8.9 B-Natriuretic Peptide Hold Red Top Hold Green Top Urine Color Urine Appearance Urine pH Ur Specific [place] Urine Protein Urine Glucose (UA) Urine Ketones Urine Blood Urine Nitrite Ur Leukocyte Esterase Assessment and Plan (1) Asthma with exacerbation: Status: Acute Plan 42F PMH moderate persistent asthma, interstitial lung disease, diabetes, chronic hypoxic respiratory failure on 2 L home O2, depression/anxiety, migraine presented with shortness of breath Moderate persistent asthma with acute decompensation, ild, also likely obesity hypoventilation syndrome, chronic hypoxic respiratory failure on 2 L Steroids, bronchodilators Morbid obesity Weight loss recommend Diabetes Insulin Mood disorder Continue Wellbutrin, Paxil DVT prophylaxis with Lovenox Full code Reason for continued hospitalization: Still feeling short of breath Time Spent With Patient Time: Total time managing care of this patient today ____ minutes. Quality Stroke Does the patient have a stroke diagnosis?: No VTE Prior VTE?: No VTE Risk Level:: Medical - moderate - high VTE Device Contraindication: Treatment Not Indicated VTE Drug Contraindication: N/A - Med Ordered
[2023-02-06 11:12] LABS: SARS-CoV-2 PCR Not Detected (Not Detect.)
[2023-02-06 11:36] LABS: Glucose, Whole Blood 270 mg/dL (60-115)
[2023-02-06] MEDS: Insulin Lispro 100 UNIT/ML 3 ML VIAL SUBCUT ×3 (12:05→20:58)
[2023-02-06] MEDS: Enoxaparin Sodium 40 MG/0.4 ML SYRINGE SUBCUT (12:05)
--- NOTE | 2023-02-06 15:49 | MHC.CM.PN ---
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
[2023-02-06 16:35] LABS: Glucose, Whole Blood 185 mg/dL (60-115)
[2023-02-06] MEDS: Omeprazole 20 MG CAPSULE.DR PO (17:06)
[2023-02-06] MEDS: SUMAtriptan succinate 25 MG TABLET PO (17:06)
[2023-02-06] MEDS: Prazosin HCL 1 MG CAPSULE 2 MG PO (20:13)
[2023-02-06] MEDS: Prazosin HCL 5 MG CAPSULE PO (20:13)
[2023-02-06] MEDS: PARoxetine HCL 40 MG TABLET PO (20:14)
[2023-02-06] MEDS: Mirtazapine 15 MG TABLET PO (20:14)
[2023-02-06] MEDS: Gabapentin 400 MG CAPSULE 800 MG PO (20:14)
[2023-02-06 20:42] LABS: Glucose, Whole Blood 222 mg/dL (60-115)
[2023-02-07 04:00] VITALS: BP 130/63; PULSE 86; RESP 19; TEMP 36.2; O2SAT 95
[2023-02-07] MEDS: methylPREDNISolone Sod Succ 40 MG/ML VIAL IVPUSH (05:17)
[2023-02-07] MEDS: Omeprazole 20 MG CAPSULE.DR PO (05:17)
[2023-02-07 07:00] LABS: Hematocrit 35.6 % (37.0-47.0); Mean Corpuscular HGB Conc 30.9 g/dl (31.0-35.0); Mean Corpuscular Hemoglobin 25.6 pg (27.0-33.0); Mean Platelet Volume 10.1 fL (9.4-12.3); Platelet Count 377 X10*3/uL (160-400); Red Blood Count 4.29 X10*6/uL (4.20-5.50); Red Cell Distribution Width 15.2 % (11.0-16.0); White Blood Count 22.2 X10*3/uL (4.8-10.8)
[2023-02-07 07:08] VITALS: BP 142/80; PULSE 88; RESP 18; TEMP 36.1; O2SAT 99
[2023-02-07 07:17] LABS: Anion Gap 15 (12-20); Blood Urea Nitrogen 13 mg/dL (9-16); Calcium 9.4 mg/dL (8.4-10.2); Carbon Dioxide 27 mmol/L (22-29); Chloride 101 mmol/L (96-108); Estimated Glomerular Filt Rate > 60; Glucose Fasting 189 mg/dL (60-99); Potassium 4.7 mmol/L (3.3-5.1); Sodium 138 mmol/L (135-145)
[2023-02-07] MEDS: Acetaminophen 325 MG TABLET 650 MG PO (07:19)
[2023-02-07 08:00] LABS: Glucose, Whole Blood 178 mg/dL (60-115)
[2023-02-07] MEDS: Fluticasone/Vilanterol 200/25 BLST.W.DEV 1 PUFF INHALE (08:05)
[2023-02-07] MEDS: Albuterol/Iprat 2.5/0.5MG 3 ML AMPUL.NEB INHALE ×2 (08:05→11:46)
[2023-02-07 08:06] VITALS: PULSE 88; RESP 16; O2SAT 98
[2023-02-07] MEDS: Insulin Lispro 100 UNIT/ML 3 ML VIAL SUBCUT (08:24)
[2023-02-07] MEDS: 0.9 % Sodium Chloride Flush 3 ML SYRINGE IVFLUSH (08:25)
--- NOTE | 2023-02-07 09:13 | PM.DS ---
DS: Providers Provider Date of Service: 02/07/23 Date of admission: 02/05/23 11:43 Primary care physician: Tatum Magdaleno MD DS: Diagnosis Discharge Diagnosis (1) Asthma with exacerbation: Status: Acute DS: Summary Hospital Course Hospital Course: from initial hpi: 42-year-old female with history of asthma, interstitial lung disease since COVID-19, chronic respiratory failure on 2 L supplemental O2 at baseline, depression/anxiety, history of lumbar disc herniation, migraines who is a former smoker presented to the ED earlier today for evaluation of shortness of breath, wheezing, productive cough, subjective fevers, and chills that started yesterday. She denies any sick contacts at home. Has been using her albuterol inhaler without improvement. She has been noncompliant with oxygen use at home. Was recently admitted for asthma exacerbation and pneumonia 2 months ago and was seen by pulmonology and advised to follow up outpatient but has not yet done so. On arrival, patient is afebrile, tachypneic to 28, and tachycardic to 103 on admission following albuterol administration. There is leukocytosis of 14.8. Renal function and electrolyte levels are normal. Troponin is undetectable. BNP pending. Negative for COVID-19. Full viral respiratory panel pending. Chest x-ray shows redemonstration of mild vascular congestion with diffuse interstitial peribronchial wall thickening could be small airway disease no lobar consolidation pneumonia. She was also complaining of diffuse abdominal pain and has had a diarrhea x5 days. Reports having episodes every 10-15 minutes but has not had a bowel movement yet in the ED today. Lipase in the ED was 7, CT abdomen pelvis was negative for any acute intra-abdominal abnormality. In the ED, has received 10 mg albuterol, 2 g magnesium, 125 mg IV methylprednisolone. Despite this, our continues to score high on the bronch protocol with coarse lung sounds and diffuse expiratory wheezing. hospital course: patient was admitted for moderate persistent asthma with acute decompensation, ILD, likely obesity hypoventilation syndrome, and chronic hypoxic respiratory failure on 2L home o2. she was treated with steroids and nebs and symptoms significantly improved. for morbid obesity weight loss recommended. for DM treated with insulin. for mood disorder was treated with wellbutrin and paxil. patient feeling better and will be discharged home. Time Spent with Patient Time attestation: Total time managing care of this patient today ____ minutes. Discharge coordination time: Greater than 30 minutes Quality: Safe Use of Opioids Does Pt have an Active Cancer Diagnosis on the Problem List?: No Quality: Stroke Does the patient have a stroke diagnosis?: No Physical Exam Vital Signs: Vital Signs: Last Vital Signs Temp 97.0 F 02/07/23 07:08 Pulse 88 02/07/23 08:06 Resp 16 02/07/23 08:06 BP 142/80 H 02/07/23 07:08 Pulse Ox 99 02/07/23 07:08 O2 Del Method Nasal Cannula 02/07/23 07:08 O2 Flow Rate 2 02/07/23 07:08 BMI result Body Mass Index 46.3 General: AO X 3, no acute distress Resp: CTA bilateral, no accessory muscles used CVS: S1,S2,RRR GI: soft, non tender, non distended Neuro: motor grossly intact, alert Psych: appropriate affect, appropriate insight DS: Data Data Completed and Pending Completed studies during hospitalization [Text1]: Procedures Assistance with Respiratory Ventilation, Less than 24 Consecutive Hours, Continuous Positive Airway Pressure (04/23/22) Insertion of Endotracheal Airway into Trachea, Via Natural or Artificial Opening (04/23/22) Insertion of Infusion Device into Superior Vena Cava, Percutaneous Approach (04/23/22) Introduction of Baricitinib into Mouth and Pharynx, External Approach, [employer] (04/23/22) Introduction of Vasopressor into Peripheral Vein, Percutaneous Approach (04/23/22) Respiratory Ventilation, Greater than 96 Consecutive Hours (04/23/22) Ultrasonography of Superior Vena Cava, Guidance (04/23/22) Labs on day of discharge: Laboratory Results - last 24 hr 02/06/23 02/06/23 02/06/23 03:29 11:19 16:27 WBC RBC Hgb Hct MCV MCH MCHC RDW Plt Count MPV Absolute Nucleated RBC Nucleated RBC % (auto) Sodium Potassium Chloride Carbon Dioxide Anion Gap BUN Creatinine Estim Creat Clear Calc Estimated GFR POC Glucose 270 H 185 H Fasting Glucose Calcium Respiratory Panel [place] See Note Adenovirus (Rapid PCR) Not Detected B.pert (TEM-PCR) Not Detected B.parapertussis DNA PCR Not Detected C. pneumoniae DNA (PCR) Not Detected Coronavirus OC43 (PCR) Not Detected Coronavirus HKU1 (PCR) Not Detected Coronavirus 229E (PCR) Not Detected Coronavirus NL63 (PCR) Not Detected Human Metapneumovir PCR Not Detected Influenza A (RT-PCR) Not Detected Influenza B (RT-PCR) Not Detected M. pneumoniae (PCR) Not Detected Parainfluenza 1 (PCR) Not Detected Parainfluenza 2 (PCR) Not Detected Parainfluenza 3 (PCR) Not Detected Parainfluenza 4 (PCR) Not Detected RSV (PCR) Not Detected Entero/Rhino (PCR) Detected A SARS-CoV-2 RNA (RT-PCR) Not Detected 02/06/23 02/07/23 02/07/23 20:28 05:41 07:11 WBC 22.2 H RBC 4.29 Hgb 11.0 L Hct 35.6 L MCV 83.0 MCH 25.6 L MCHC 30.9 L RDW 15.2 Plt Count 377 MPV 10.1 Absolute Nucleated RBC 0.000 Nucleated RBC % (auto) 0.0 Sodium 138 Potassium 4.7 Chloride 101 Carbon Dioxide 27 Anion Gap 15 BUN 13 Creatinine 0.74 Estim Creat Clear Calc 122.0 Estimated GFR > 60 POC Glucose 222 H 178 H Fasting Glucose 189 H Calcium 9.4 Respiratory Panel [place] Adenovirus (Rapid PCR) B.pert (TEM-PCR) B.parapertussis DNA PCR C. pneumoniae DNA (PCR) Coronavirus OC43 (PCR) Coronavirus HKU1 (PCR) Coronavirus 229E (PCR) Coronavirus NL63 (PCR) Human Metapneumovir PCR Influenza A (RT-PCR) Influenza B (RT-PCR) M. pneumoniae (PCR) Parainfluenza 1 (PCR) Parainfluenza 2 (PCR) Parainfluenza 3 (PCR) Parainfluenza 4 (PCR) RSV (PCR) Entero/Rhino (PCR) SARS-CoV-2 RNA (RT-PCR) Preliminary micro results at discharge 02/05/23 13:50 Blood Culture - Preliminary Blood - Venous No growth after 24 hours. 02/05/23 13:50 Blood Culture - Preliminary Blood - Venous No growth after 24 hours. Discharge Plan Discharge Anticipated Discharge Date/Time: 02/07/23 09:12 Patient Disposition: Home, Self-Care Discharge Diagnosis: asthma Referrals: Tatum Magdaleno MD [Primary Care Provider] - 1 Week Discharge Medications: New prednisone 20 mg tablet 40 mg PO DAILY Qty: 10 0RF Continued metformin 500 mg tablet 500 mg PO BID 30 Days Qty: 60 0RF (DME) FreeStyle Lite Strips Strip Qty: 100 0RF Rx Instructions: Test four times a day or as directed. (DME) blood-glucose meter [FreeStyle Lite Meter] Kit Qty: 1 0RF Rx Instructions: As Directed (DME) lancets [FreeStyle Lancets] 28 gauge misc Qty: 100 0RF Rx Instructions: Test four times a day or as directed. bupropion HCl 150 mg tablet extended release 24 hr 150 mg PO DAILY albuterol sulfate 2.5 mg /3 mL (0.083 %) solution for nebulization 2.5 mg inhalation Q6H PRN (Reason: wheezing) riboflavin (vitamin B2) [Vitamin B-2] 100 mg tablet 200 mg PO DAILY sumatriptan succinate 25 mg tablet 25 mg PO DAILY MDD 50mg PRN (Reason: Migraine Headache) Rx Instructions: MRX1 after 2 hours gabapentin 400 mg capsule 800 mg PO BEDTIME hydroxyzine pamoate 50 mg capsule 50 mg PO QID PRN (Reason: Anxiety) prazosin [Minipress] 5 mg capsule 5 mg PO BEDTIME Rx Instructions: TAKE WITH 2MG pantoprazole 40 mg tablet,delayed release (DR/EC) 40 mg PO BID nicotine 21 mg/24 hr patch 24 hour 1 patch topical DAILY PRN (Reason: Nicotine Cravings) montelukast 10 mg tablet 10 mg PO DAILY cyanocobalamin (vitamin B-12) 1,000 mcg tablet, sublingual 1,000 mcg sublingual DAILY mirtazapine 15 mg tablet 15 mg PO BEDTIME gabapentin 100 mg capsule 100 mg PO BID PRN (Reason: Pain) albuterol sulfate [Ventolin HFA] 90 mcg/actuation HFA aerosol inhaler 2 puff inhalation Q6H dicyclomine 10 mg capsule 20 mg PO Q8H PRN (Reason: Pain) prazosin 2 mg capsule 2 mg PO BEDTIME Rx Instructions: TAKE WITH 5MG bupropion HCl [Wellbutrin XL] 300 mg tablet extended release 24 hr 300 mg PO DAILY budesonide-formoterol [Symbicort] 160-4.5 mcg/actuation HFA aerosol inhaler 2 puff INHALATION BID acetaminophen [Tylenol] 325 mg Tablet 650 mg PO Q6H PRN (Reason: Pain) polyethylene glycol 3350 17 gram powder in packet 17 g PO DAILY PRN (Reason: Constipation) paroxetine HCl 40 mg tablet 40 mg PO BEDTIME Discharge Orders: Discharge Order (Routine); Ordered 02/07/23 Ordered By: Gibson Alexander Diet: Advance to usual diet Activity on Discharge: As tolerated Stand Alone Forms: Patient Portal Discharge page Care Plan Goals: recovery Health Concerns: asthma Plan of Treatment: steroids Assessment: see above
[2023-02-07] MEDS: buPROPion HCl XL 300 MG TAB.ER.24H PO (09:26)
[2023-02-07] MEDS: Montelukast Sodium 10 MG TABLET PO (09:26)
[2023-02-07] MEDS: buPROPion HCl XL 150 MG TAB.ER.24H PO (09:26)
[2023-02-07] MEDS: Cyanocobalamin (Vitamin B-12) 1,000 MCG TABLET 1000 MCG PO (09:26)
--- NOTE | 2023-02-07 10:19 | MHC.CM.PN ---
Pt medically cleared for DC, she is going home [facility] because she requires continuous O2. She will resume her services from [facility], updated information was sent.
[2023-02-07 11:08] LABS: Glucose, Whole Blood 206 mg/dL (60-115)
[2023-02-07 11:47] VITALS: PULSE 88; RESP 16; O2SAT 99
== END 2023-02-07 12:45 | disposition home or self-care (01) ==
LOC: HO.ED 10:27 → HO.EDOVER 12:30 → HO.S3 02-07 08:39 → HO.EDOVER 02-07 10:16
PROVIDERS: Physician Assistant; Admitting Provider Physician Assistant; Emergency Provider Emergency Medicine; PCP Family Medicine; Visit Provider Internal Medicine
DX: J45.901 Unspecified asthma with (acute) exacerbation (principal); J84.9 Interstitial pulmonary disease, unspecified; E66.2 Morbid (severe) obesity with alveolar hypoventilation; R06.02 Shortness of breath; D72.829 Elevated white blood cell count, unspecified; D64.9 Anemia, unspecified; R10.9 Unspecified abdominal pain; E11.9 Type 2 diabetes mellitus without complications; R19.7 Diarrhea, unspecified; Z23 Encounter for immunization; Z11.52 Encounter for screening for COVID-19; Z68.42 Body mass index [BMI] 45.0-49.9, adult; Z91.199 Patient's noncompliance with other medical treatment and regimen due to unspecified reason
CPT/HCPCS: 36415; 71045; 74176; 80048; 80053; 81003; 82803; 82947; 83690; 83735; 83880; 84484; 85025; 85027; 85379; 85610; 87040; 87633; 87635; 90471; 90686; 93005; 94640; 96365; 96366; 96372; 96375; 96376; 99221; 99285; J1650; J2405; J2920; J2930; J3475

== ENCOUNTER → 2023-02-05 11:43 | Outpatient (BNV) | payer OTHER, SELFPAY | PROVIDERS: Admitting Provider Physician Assistant; Emergency Provider Emergency Medicine; PCP Family Medicine; Visit Provider Physician Assistant | DX: J45.901 Unspecified asthma with (acute) exacerbation (principal) | CPT/HCPCS: 99223; 99233; 99239 ==

== ENCOUNTER 2023-02-28 21:40 | Inpatient (IN) | payer OTHER, SELFPAY ==
--- NOTE | 2023-02-28 | ECG_ITS ---
Test Reason : CP Blood Pressure : / mmHG Vent. Rate : 104 BPM Atrial Rate : 104 BPM P-R Int : 128 ms QRS Dur : 080 ms QT Int : 348 ms P-R-T Axes : 050 040 024 degrees QTc Int : 457 ms Sinus tachycardia Possible Left atrial enlargement Borderline ECG When compared with ECG of 05-FEB-2023 07:54, No significant change was found Referred By: Generic ED Physician Electronically Signed By:ROSALIE MESA MD
--- NOTE | ~2023-02-28 | XR_ITS ---
EXAMINATION: XR CHEST CLINICAL INFORMATION: Shortness of breath. Pneumonia. COMPARISON: 02/05/2023. TECHNIQUE: Frontal view of the chest was obtained. FINDINGS: The lung volumes are low. The cardiomediastinal silhouette is stable. There is a right upper lobe infiltrate as well as bilateral perihilar infiltrates. There are no pleural effusions. The bony structures and soft tissues are unremarkable. XR/XR chest 1V IMPRESSION: Right upper lobe infiltrate most consistent with pneumonia. There also appear to be bilateral perihilar infiltrates which also suggests pneumonia.
[2023-02-28 21:55] VITALS: BP 138/82; BP 151/88; PULSE 100; PULSE 108; RESP 17; TEMP 36.8; O2SAT 97; BMI 49.1
[2023-02-28 22:17] LABS: MANUAL DIFF FLAG NO
[2023-02-28 22:18] LABS: Basophils Absolute Auto 0.1 X10*3/uL (0.0-0.2); Basophils Percent Auto 0.5 % (0-2); Eosinophils Absolute Auto 0.9 X10*3/uL (0.0-0.4); Eosinophils Percent Auto 5.1 % (0-4); Hematocrit 36.5 % (37.0-47.0); Hemoglobin 11.5 g/dl (12.0-16.0); Imm Gran Abs Auto 0.04 X10*3/uL (0.00-0.03); Imm Gran Pct Auto 0.2 % (0.0-0.4); Lymphocytes Absolute Auto 2.1 X10*3/uL (1.2-4.9); Lymphocytes Percent Auto 12.2 % (20-40); Mean Corpuscular HGB Conc 31.5 g/dl (31.0-35.0); Mean Corpuscular Hemoglobin 25.5 pg (27.0-33.0); Mean Corpuscular Volume 80.9 fL (80.0-98.0); Mean Platelet Volume 9.5 fL (9.4-12.3); Monocytes Absolute Auto 1.3 X10*3/uL (0.1-1.2); Monocytes Percent Auto 7.3 % (2-11); Neutrophils Absolute Auto 12.8 x10*3/uL (2.0-8.3); Neutrophils Percent Auto 74.7 % (45-73); Platelet Count 361 X10*3/uL (160-400); Red Blood Count 4.51 X10*6/uL (4.20-5.50); Red Cell Distribution Width 15.3 % (11.0-16.0); White Blood Count 17.1 X10*3/uL (4.8-10.8)
[2023-02-28 22:19] VITALS: BP 157/88; PULSE 104; RESP 20; TEMP 36.8; O2SAT 100
--- NOTE | 2023-02-28 22:20 | PC.NURSE ---
Pt ca&ox4. Pt reports sob, n/v/d since 6pm today. Pt reports a cough x3 days, denies fever. Pt reports 8/10 reproducible epigastric pain. Blood work collected. Pt placed on bedside monitor. Pt placed on 3L of o2 sat 100%. Pt requested and given another blanket. IV line placed by float nurse. Plan of care ongoing.
--- NOTE | 2023-02-28 22:27 | ED_ITS ---
HPI - Chest Pain General Chief Complaint: Chest Pain Stated Complaint: CHEST PAIN MALAISE Time Seen by Provider: 02/28/23 22:20 Source: patient Mode of arrival: ambulatory Limitations: no limitations History of Present Illness HPI narrative: Patient 42 years old history of asthma/COPD COPD with interstitial lung disease secondary to COVID requiring mechanical ventilation in 04/15 on home oxygen 2 L 24 hours as needed comes here for increased cough shortness of breath nausea vomiting and diarrhea for last 5 days coughing with mucopurulent phlegm no fever or chills on arrival patient tachypnea Related Data Home Medications Medication Instructions Recorded Confirmed acetaminophen 325 mg tablet 650 mg PO Q6H PRN Pain 11/16/22 02/05/23 (Tylenol) albuterol sulfate 2.5 mg/3 mL 2.5 mg inhalation Q6H PRN wheezing 11/16/22 02/05/23 (0.083 %) solution for nebulization albuterol sulfate 90 mcg/actuation 2 puff inhalation Q6H 11/16/22 02/05/23 aerosol inhaler (Ventolin HFA) budesonide-formoterol HFA 160 2 puff inhalation BID 11/16/22 02/05/23 mcg-4.5 mcg/actuation aerosol inhaler (Symbicort) bupropion HCl 300 mg 24 hr tablet, 300 mg PO DAILY 11/16/22 02/05/23 extended release (Wellbutrin XL) cyanocobalamin (vitamin B-12) 1,000 mcg sublingual DAILY 11/16/22 02/05/23 1,000 mcg sublingual tablet dicyclomine 10 mg capsule 20 mg PO Q8H PRN Pain 11/16/22 02/05/23 gabapentin 100 mg capsule 100 mg PO BID PRN Pain 11/16/22 02/05/23 gabapentin 400 mg capsule 800 mg PO BEDTIME 11/16/22 02/05/23 hydroxyzine pamoate 50 mg capsule 50 mg PO QID PRN Anxiety 11/16/22 02/05/23 mirtazapine 15 mg tablet 15 mg PO BEDTIME 11/16/22 02/05/23 montelukast 10 mg tablet 10 mg PO DAILY 11/16/22 02/05/23 nicotine 21 mg/24 hr daily 1 patch topical DAILY PRN Nicotine 11/16/22 02/05/23 transdermal patch Cravings pantoprazole 40 mg tablet,delayed 40 mg PO BID 11/16/22 02/05/23 release paroxetine HCl 40 mg tablet 40 mg PO BEDTIME 11/16/22 02/05/23 polyethylene glycol 3350 17 gram 17 g PO DAILY PRN Constipation 11/16/22 02/05/23 oral powder packet prazosin 2 mg capsule 2 mg PO BEDTIME 11/16/22 02/05/23 prazosin 5 mg capsule (Minipress) 5 mg PO BEDTIME 11/16/22 02/05/23 riboflavin (vitamin B2) 100 mg 200 mg PO DAILY 11/16/22 02/05/23 tablet (Vitamin B-2) sumatriptan succinate 25 mg tablet 25 mg PO DAILY PRN Migraine 11/16/22 02/05/23 Headache bupropion HCl 150 mg 24 hr tablet, 150 mg PO DAILY 02/05/23 02/05/23 extended release Previous Rx's Medication Instructions Recorded blood sugar diagnostic (FreeStyle #100 ea 12/17/22 Lite Strips) blood-glucose meter (FreeStyle #1 ea 12/17/22 Lite Meter kit) lancets 28 gauge (FreeStyle #100 ea 12/17/22 Lancets) metformin 500 mg tablet 500 mg PO BID 30 days #60 tabs 12/17/22 prednisone 20 mg tablet 40 mg (2 x 20 mg) PO DAILY #10 tabs 02/07/23 Allergies Allergy/AdvReac Type Severity Reaction Status Date / Time promethazine [From PHENERGAN] Allergy Unknown ITCHING Verified 12/14/22 13:52 egg Allergy Hives Verified 02/28/23 22:01 codeine [CODEINE] AdvReac Unknown STOMACH Verified 12/14/22 13:52 UPSET morphine [MORPHINE] AdvReac Unknown MORE PAIN Verified 12/14/22 13:52 Review of Systems 2 Review of Systems: Yes all other systems are reviewed and are negative PMFSH Past Medical History Medical History Lower extremity edema ILD (interstitial lung disease) Panic attack as reaction to stress Recurrent major depression Generalized anxiety disorder Morbid obesity Sinus infection Disc herniation H. pylori infection Depression Migraine Asthma Surgical History History of Social History Social History Household Members: Family Housing: Apartment Housing Other:: 2nd fl Do you presently have visiting nurse or other home services: Yes Alcohol intake: never Patient Tobacco Use Status: Former Tobacco user Quit Date: 11/14/22 Tobacco use type: Cigarette Cigarette Packs Per Day: 2 Cigarettes Per Day: 5 Smoked in Last 30 Days: No Second Hand Smoke Exposure: Yes Use of substances other than those prescribed or required for medical reasons: No Advance Directives: Yes Advance Directives on File: Yes Advance Directives Date on File: 05/12/22 service: No Current occupational status: unemployed Physical Exam 2 Vital Signs: Vital Signs: Last Vital Signs Temp 98.3 F 02/28/23 22:19 Pulse 107 H 03/01/23 00:00 Resp 25 H 03/01/23 00:00 BP 157/88 H 02/28/23 22:19 Pulse Ox 100 02/28/23 22:19 O2 Del Method Room Air 02/28/23 22:19 BMI result Body Mass Index 49.1 Appearance: Alert. Oriented X3. No acute distress. Eyes: No pallor or icterus ENT: Pharynx normal. Oral Mucosa moist Neck: Normal inspection. Neck supple. CVS: Normal heart rate and rhythm. Pulses normal. Respiratory: No respiratory distress. Equal air entry bilateral, bilateral wheezing with crackles Abdomen: Soft and nontender. Bowel sounds are present, no mass palpable, no CVA tenderness Skin: Skin warm and dry. Normal skin color. Normal skin turgor. Extremities: No lower extremity edema. No calf tenderness Neuro: Oriented X 3. No motor deficit. Medications Administered Discontinued Medications Generic Name Dose Route Start Last Admin Trade Name Freq PRN Reason Stop Dose Admin Albuterol Sulfate 5 mg/ 7.5 mg 02/28/23 23:51 02/28/23 23:58 Albuterol Sulfate 2.5 mg INHALE 02/28/23 23:52 7.5 mg ONCE ONE Administration Guaifenesin/Codeine Phosphate 10 ml 02/28/23 23:26 02/28/23 23:55 Guaifen/Codeine Sf 200/20/10ml 10 Ml Liquid PO 02/28/23 23:27 10 ml ONCE ONE Administration Ceftriaxone Sodium 1 gm/ 50 mls @ 100 mls/hr 02/28/23 23:27 03/01/23 00:45 Sodium Chloride IV 02/28/23 23:56 Infused ONCE ONE Infusion Doxycycline Hyclate 100 mg/ 250 mls @ 166.67 mls/hr 02/28/23 23:27 03/01/23 01:00 Sodium Chloride IV 03/01/23 00:56 166.67 mls/hr ONCE ONE Administration Methylprednisolone Sodium Succinate 125 mg 02/28/23 23:26 02/28/23 23:57 Methylprednisolone Sod Succ 125 Mg/2 Ml Vial IVPUSH 02/28/23 23:27 125 mg ONCE ONE Administration Ondansetron HCl 4 mg 03/01/23 01:07 03/01/23 01:25 Ondansetron Hcl 4 Mg/2 Ml Vial IVPUSH 03/01/23 01:08 4 mg ONCE ONE Administration Medical Decision Making Medical Decision Making [facility] Narrative: Patient with severe lung disease on home oxygen with increased shortness of breath and cough chest x-ray showed pneumonia bilateral will admit patient for IV antibiotic patient possibly septic but not in septic shock Differential Diagnosis Differential Diagnoses: The differential diagnosis associated with the presentation includes Pneumonia/COPD/CHF Admission/Observation Consideration of admission/observation: Escalation of care including admission/observation considered Consult Healthcare Provider Management of the patient was discussed with: Hospitalist Lab Data [facility] Lab Attestation statement: I reviewed the patient's lab results. 02/28/23 22:11 02/28/23 22:11 Labs: Lab Results 02/28/23 02/28/23 02/28/23 Range/Units 22:11 22:43 23:55 WBC 17.1 H (4.8-10.8) X10*3/uL RBC 4.51 (4.20-5.50) X10*6/uL Hgb 11.5 L (12.0-16.0) g/dl Hct 36.5 L (37.0-47.0) % MCV 80.9 (80.0-98.0) fL MCH 25.5 L (27.0-33.0) pg MCHC 31.5 (31.0-35.0) g/dl RDW 15.3 (11.0-16.0) % Plt Count 361 (160-400) X10*3/uL MPV 9.5 (9.4-12.3) fL Immature Gran % (Auto) 0.2 (0.0-0.4) % Neut % (Auto) 74.7 H (45-73) % Lymph % (Auto) 12.2 L (20-40) % [place] % (Auto) 7.3 (2-11) % Eos % (Auto) 5.1 H (0-4) % Baso % (Auto) 0.5 (0-2) % Lymph # (Auto) 2.1 (1.2-4.9) X10*3/uL [place] # (Auto) 1.3 H (0.1-1.2) X10*3/uL Eos # (Auto) 0.9 H (0.0-0.4) X10*3/uL Baso # (Auto) 0.1 (0.0-0.2) X10*3/uL Abs Immat Gran (auto) 0.04 H (0.00-0.03) X10*3/uL Absolute Neuts (auto) 12.8 H (2.0-8.3) x10*3/uL Absolute Nucleated RBC 0.000 (0.0-0.012) X10*3/uL Nucleated RBC % (auto) 0.0 (0.0-0.2) /100WBC Sodium 138 (135-145) mmol/L Potassium 4.1 (3.3-5.1) mmol/L Chloride 102 (96-108) mmol/L Carbon Dioxide 29 (22-29) mmol/L Anion Gap 11 L (12-20) BUN 9 (9-16) mg/dL Creatinine 0.81 (0.5-1.4) mg/dL Estim Creat Clear Calc 107.3 Estimated GFR > 60 Random Glucose 98 (60-115) mg/dL Lactic Acid 0.9 (0.5-2.0) mmol/L Calcium 9.7 (8.4-10.2) mg/dL Total Bilirubin 0.5 (0.0-1.0) mg/dL Direct Bilirubin 0.2 (0.0-0.5) mg/dL AST 29 (5-31) U/L ALT 47 H (0-31) U/L Alkaline Phosphatase 113 (39-117) U/L Troponin I High Sens < 2.7 (<3.5-17.0) ng/L Total Protein 7.1 (6.5-8.0) g/dL Albumin 3.9 (3.5-5.0) g/dL Lipase 6 L (8-78) U/L Influenza Type A (PCR) NEGATIVE (Negative) Influenza Type B (PCR) NEGATIVE (Negative) RSV RNA Qual (PCR) NEGATIVE (Negative) SARS-CoV-2 RNA (RT-PCR) NEGATIVE (Negative) Independent Interpretation I performed an independent interpretation of an: EKG and Plain X-Ray Interpretation: Sinus tachycardia heart rate 104 beats per minute normal interval normal axis no acute ST T wave changes no acute ischemia Bilateral infiltrates Radiology Impression Discussion of test interpretation with radiology: I have reviewed the radiologist's reading. Radiologist Impression: XR/XR chest 1V IMPRESSION: Right upper lobe infiltrate most consistent with pneumonia. There also appear to be bilateral perihilar infiltrates which also suggests pneumonia. Discharge Plan Discharge Clinical Impression: Pneumonia, Chronic lung disease Patient Disposition: Admitted As Inpatient
[2023-02-28 22:34] LABS: Alanine Aminotransferase 47 U/L (0-31); Albumin Level 3.9 g/dL (3.5-5.0); Alkaline Phosphatase 113 U/L (39-117); Anion Gap 11 (12-20); Aspartate Amino Transferase 29 U/L (5-31); Bilirubin Direct 0.2 mg/dL (0.0-0.5); Bilirubin Total 0.5 mg/dL (0.0-1.0); Blood Urea Nitrogen 9 mg/dL (9-16); Calcium 9.7 mg/dL (8.4-10.2); Carbon Dioxide 29 mmol/L (22-29); Chloride 102 mmol/L (96-108); Creatinine Clr Calc Pharmacy 107.3; Estimated Glomerular Filt Rate > 60; Glucose Random 98 mg/dL (60-115); Lipase 6 U/L (8-78); Potassium 4.1 mmol/L (3.3-5.1); Sodium 138 mmol/L (135-145); Total Protein 7.1 g/dL (6.5-8.0)
[2023-02-28 22:42] LABS: Troponin-I High Sensitivity < 2.7 ng/L (<3.5-17.0)
[2023-02-28 23:24] LABS: Influenza A PCR NEGATIVE (Negative); Influenza B PCR NEGATIVE (Negative); Resp Syncy Virus RNA Qual PCR NEGATIVE (Negative); SARS COV2 PCR INHOUSE NEGATIVE (Negative)
--- NOTE | 2023-02-28 23:43 | PC.NURSE ---
Pt placed on purewick. Plan of care ongoing.
--- NOTE | 2023-02-28 23:50 | PC.NURSE ---
Resp therapy with pt. Plan of care ongoing.
[2023-02-28] MEDS: guaiFEN/Codeine SF 200/20/10ML 10 ML LIQUID PO (23:55)
[2023-02-28] MEDS: cefTRIAXone sodium 1 GM in 0.9 % Sodium Chloride 50 ML IV (23:56)
[2023-02-28] MEDS: methylPREDNISolone Sod Succ 125 MG/2 ML VIAL IVPUSH (23:57)
[2023-02-28] MEDS: Albuterol Sulfate 5 MG, Albuterol Sulfate (0.083%) 2.5 MG 7.5 MG INHALE (23:58)
[2023-03-01] VITALS (9 sets, daily range): BP systolic 120–167; BP diastolic 59–93; PULSE 58–113; RESP 16–104; TEMP 36–36.8; O2SAT 95–98
[2023-03-01 00:14] LABS: Lactic Acid 0.9 mmol/L (0.5-2.0)
--- NOTE | 2023-03-01 00:50 | PC.NURSE ---
Pt iv access no longer working. This RN and discharge rn attempted to get another line and unable to. Meds on hold until IV access available. ORI mccarthy was able to place IV access. blood cultures drawn and sent by ORI mccarthy. Plan of care ongoing.
[2023-03-01] MEDS: Doxycycline Hyclate 100 MG in 0.9 % Sodium Chloride 250 ML 166.67 MG IV (01:00)
--- NOTE | 2023-03-01 01:05 | PC.NURSE ---
Pt medicated per jun. abx given late due to needing IV access. Plan of care ongoing.
[2023-03-01] MEDS: ondansetron HCL 4 MG/2 ML VIAL IVPUSH (01:25)
--- NOTE | 2023-03-01 01:32 | PC.NURSE ---
Pt medicated per jun. CT with pt. plan of care ongoing.
--- NOTE | 2023-03-01 02:18 | PM.IMHP ---
History of Present Illness Date of Service: 03/01/23 Chief Complaint: Dyspnea This is a 42-year-old female with pertinent history of mood disorder, gastroesophageal reflux disease, tobacco use disorder, chronic hypoxemic respiratory failure due to COPD on 2 L supplemental oxygen who presents to the emergency department for evaluation of dyspnea. Patient states that about 3 days prior to presentation, she started having productive cough which was persistent. Also started having dyspnea, which was worse with exertion. Had associated wheezing. Patient tried her home inhaler without relief. No sick contacts. Denies fever, chills, chest discomfort, palpitations, abdominal pain, changes in urinary or bowel habits. Admits nausea In the emergency department, patient was found to be septic with increasing oxygen requirements. Imaging concerning for pneumonia. Review of Systems Constitutional: Constitutional: Reports fatigue and Reports lethargy Cardiovascular: Cardiovascular: Reports dyspnea on exertion Respiratory: Respiratory: Reports cough, Reports dyspnea on exertion and Reports wheezing Gastrointestinal: Gastrointestinal: Reports no additional gastrointestinal complaints Genitourinary: Genitourinary: Reports no additional female genitourinary complaints Endocrine: Endocrine: Reports fatigue Allergic/Immunologic: Allergic/Immunologic: Reports wheezing [facility] Medical History Lower extremity edema ILD (interstitial lung disease) Panic attack as reaction to stress Recurrent major depression Generalized anxiety disorder Morbid obesity Sinus infection Disc herniation H. pylori infection Depression Migraine Asthma Surgical History History of Social History Household Members: Family Housing: Apartment Housing Other:: 2nd fl Do you presently have visiting nurse or other home services: Yes Alcohol intake: never Patient Tobacco Use Status: Former Tobacco user Quit Date: 11/14/22 Tobacco use type: Cigarette Cigarette Packs Per Day: 2 Cigarettes Per Day: 5 Smoked in Last 30 Days: No Second Hand Smoke Exposure: Yes Use of substances other than those prescribed or required for medical reasons: No Advance Directives: Yes Advance Directives on File: Yes Advance Directives Date on File: 05/12/22 service: No Current occupational status: unemployed Meds Allergies Allergy/AdvReac Type Severity Reaction Status Date / Time promethazine [From PHENERGAN] Allergy Unknown ITCHING Verified 12/14/22 13:52 egg Allergy Hives Verified 02/28/23 22:01 codeine [CODEINE] AdvReac Unknown STOMACH Verified 12/14/22 13:52 UPSET morphine [MORPHINE] AdvReac Unknown MORE PAIN Verified 12/14/22 13:52 Active Medications: Current Medications Acetaminophen (Acetaminophen 325 Mg Tablet) 650 mg PO Q6H PRN PRN Reason: Pain, Mild (Pain Scale 1-3) Albuterol/Ipratropium (Albuterol/Iprat 2.5/0.5mg 3 Ml Ampul.Neb) 3 ml INHALE RQ4H WHILE AWAKE [facility] Dextrose (Dextrose 50 % 25 Gm/50 Ml Syringe) 25 gm IVPUSH Q15M PRN; Protocol PRN Reason: per Hypoglycemia Standing Ord. Enoxaparin Sodium (Enoxaparin Sodium 40 Mg/0.4 Ml Syringe) 40 mg SUBCUT Q24H [place] Glucose (Glucose Gel 15 Gm Gel..Gram.) 15 gm PO Q15M PRN; Protocol PRN Reason: per Hypoglycemia Standing Ord. Insulin Human Lispro (Insulin Lispro 100 Unit/Ml 3 Ml Vial) 0 unit SUBCUT QIDACHS [facility]; Protocol Melatonin (Melatonin 3 Mg Tablet) 6 mg PO BEDTIME PRN PRN Reason: Insomnia Methylprednisolone Sodium Succinate (Methylprednisolone Sod Succ 40 Mg/Ml Vial) 40 mg IVPUSH Q12H [place] Ondansetron HCl (Ondansetron Hcl 4 Mg/2 Ml Vial) 4 mg IVPUSH Q8H PRN PRN Reason: Nausea and Vomiting Sodium Chloride (0.9 % Sodium Chloride Flush 3 Ml Syringe) 3 ml IVFLUSH QSHIFT [facility] Home Medications Medication Instructions Recorded Confirmed Last Taken Type acetaminophen 325 mg tablet 650 mg PO Q6H PRN Pain 11/16/22 02/05/23 Unknown History (Tylenol) albuterol sulfate 2.5 mg/3 mL 2.5 mg inhalation Q6H PRN wheezing 11/16/22 02/05/23 Unknown History (0.083 %) solution for nebulization albuterol sulfate 90 mcg/actuation 2 puff inhalation Q6H 11/16/22 02/05/23 Unknown History aerosol inhaler (Ventolin HFA) budesonide-formoterol HFA 160 2 puff inhalation BID 11/16/22 02/05/2311/15/23 History mcg-4.5 mcg/actuation aerosol inhaler (Symbicort) bupropion HCl 300 mg 24 hr tablet, 300 mg PO DAILY 11/16/22 02/05/23 11/15/22 History extended release (Wellbutrin XL) cyanocobalamin (vitamin B-12) 1,000 mcg sublingual DAILY 11/16/22 02/05/23 11/15/22 History 1,000 mcg sublingual tablet dicyclomine 10 mg capsule 20 mg PO Q8H PRN Pain 11/16/22 02/05/23 Unknown History gabapentin 100 mg capsule 100 mg PO BID PRN Pain 11/16/22 02/05/23 Unknown History gabapentin 400 mg capsule 800 mg PO BEDTIME 11/16/22 02/05/23 11/15/22 History hydroxyzine pamoate 50 mg capsule 50 mg PO QID PRN Anxiety 11/16/22 02/05/23 Unknown History mirtazapine 15 mg tablet 15 mg PO BEDTIME 11/16/22 02/05/23 11/15/22 History montelukast 10 mg tablet 10 mg PO DAILY 11/16/22 02/05/23 11/15/22 History nicotine 21 mg/24 hr daily 1 patch topical DAILY PRN Nicotine 11/16/22 02/05/23 11/15/22 History transdermal patch Cravings pantoprazole 40 mg tablet,delayed 40 mg PO BID 11/16/22 02/05/23 11/15/22 History release paroxetine HCl 40 mg tablet 40 mg PO BEDTIME 11/16/22 02/05/23 11/15/22 History polyethylene glycol 3350 17 gram 17 g PO DAILY PRN Constipation 11/16/22 02/05/23 Unknown History oral powder packet prazosin 2 mg capsule 2 mg PO BEDTIME 11/16/22 02/05/23 11/15/22 History prazosin 5 mg capsule (Minipress) 5 mg PO BEDTIME 11/16/22 02/05/23 11/15/22 History riboflavin (vitamin B2) 100 mg 200 mg PO DAILY 11/16/22 02/05/23 11/15/22 History tablet (Vitamin B-2) sumatriptan succinate 25 mg tablet 25 mg PO DAILY PRN Migraine 11/16/22 02/05/23 Unknown History Headache bupropion HCl 150 mg 24 hr tablet, 150 mg PO DAILY 02/05/23 02/05/23 Unknown History extended release Physical Exam Vital Signs and Narrative: Vital Signs: Last Vital Signs Temp 98.3 F 02/28/23 22:19 Pulse 107 H 03/01/23 00:00 Resp 25 H 03/01/23 00:00 BP 157/88 H 02/28/23 22:19 Pulse Ox 100 02/28/23 22:19 O2 Del Method Room Air 02/28/23 22:19 BMI result Body Mass Index 49.1 Middle-aged male lying in bed in mild distress on supplemental oxygen Neck supple, no JVD Tachycardic with regular rhythm, S1-S2 heard Bilateral wheezing appreciated Abdomen soft nontender, no guarding, no rigidity Patient is awake, alert and oriented to self, place, time and person ; no focal motor deficit Psych: Normal mood No pedal edema Results Labs 02/28/23 22:11 02/28/23 22:11 Labs: Laboratory Results - last 24 hr 02/28/23 02/28/23 02/28/23 22:11 22:43 23:55 MCV 80.9 MCH 25.5 L MCHC 31.5 RDW 15.3 Plt Count 361 MPV 9.5 Immature Gran % (Auto) 0.2 Neut % (Auto) 74.7 H Lymph % (Auto) 12.2 L [place] % (Auto) 7.3 Eos % (Auto) 5.1 H Baso % (Auto) 0.5 Lymph # (Auto) 2.1 [place] # (Auto) 1.3 H Eos # (Auto) 0.9 H Baso # (Auto) 0.1 Abs Immat Gran (auto) 0.04 H Absolute Neuts (auto) 12.8 H Absolute Nucleated RBC 0.000 Nucleated RBC % (auto) 0.0 Anion Gap 11 L Estim Creat Clear Calc 107.3 Estimated GFR > 60 Random Glucose 98 Lactic Acid 0.9 Calcium 9.7 Total Bilirubin 0.5 Direct Bilirubin 0.2 AST 29 ALT 47 H Alkaline Phosphatase 113 Total Protein 7.1 Albumin 3.9 Lipase 6 L Influenza Type A (PCR) NEGATIVE Influenza Type B (PCR) NEGATIVE RSV RNA Qual (PCR) NEGATIVE SARS-CoV-2 RNA (RT-PCR) NEGATIVE Imaging Radiologist's Impressions: Impressions Chest X-Ray 03/01/23 01:28 IMPRESSION: Right upper lobe infiltrate most consistent with pneumonia. There also appear to be bilateral perihilar infiltrates which also suggests pneumonia. Assessment and Plan (1) Acute and chronic respiratory failure: Status: Acute (2) Pneumonia: Status: Acute Plan This is a 42-year-old female with pertinent history of mood disorder, gastroesophageal reflux disease, tobacco use disorder, chronic hypoxemic respiratory failure due to COPD on 2 L supplemental oxygen who presents to the emergency department for evaluation of dyspnea. #. Acute on chronic hypoxemic respiratory failure due to: #. Sepsis in the setting of Community-acquired pneumonia leading to Acute exacerbation of COPD -patient with leukocytosis, tachycardia, tachypnea. Will treat empirically with antibiotics for CAP. Sputum culture pending. Resuscitated with IV crystalloids. Blood culture and lactic acid ordered -scheduled and p.r.n. DuoNebs. Continue systemic steroids. Continue home inhaler #. Mood disorder. Continue home mood stabilizers #. Tobacco use disorder. Offered nicotine patch. #. Chronic normocytic anemia Med rec pending DVT prophylaxis: Lovenox Full code Regular diet Admit as inpatient and will require two night minimum hospital stay for supplemental oxygen and IV antibiotics Quality Stroke Does the patient have a stroke diagnosis?: No VTE Prior VTE?: No VTE Risk Level:: Medical - moderate - high VTE Device Contraindication: Treatment Not Indicated VTE Drug Contraindication: N/A - Med Ordered
--- NOTE | 2023-03-01 03:12 | PC.NURSE ---
Pt refusing to use purewick. Pt placed on bedside commode. Plan of care ongoing.
--- NOTE | 2023-03-01 04:19 | PC.NURSE ---
Pt used the bedside commode. Pt assisted back into bed. Plan of care ongoing.
[2023-03-01 05:44] LABS: Basophils Percent Auto 0.2 % (0-2); Eosinophils Percent Auto 0.1 % (0-4); Hematocrit 36.1 % (37.0-47.0); Hemoglobin 11.4 g/dl (12.0-16.0); Imm Gran Abs Auto 0.08 X10*3/uL (0.00-0.03); Imm Gran Pct Auto 0.6 % (0.0-0.4); Lymphocytes Absolute Auto 0.5 X10*3/uL (1.2-4.9); MANUAL DIFF FLAG SCAN; Mean Corpuscular HGB Conc 31.6 g/dl (31.0-35.0); Mean Corpuscular Hemoglobin 25.7 pg (27.0-33.0); Mean Corpuscular Volume 81.3 fL (80.0-98.0); Mean Platelet Volume 10.3 fL (9.4-12.3); Monocytes Absolute Auto 0.1 X10*3/uL (0.1-1.2); Monocytes Percent Auto 0.8 % (2-11); Neutrophils Absolute Auto 12.4 x10*3/uL (2.0-8.3); Neutrophils Percent Auto 94.3 % (45-73); Platelet Count 376 X10*3/uL (160-400); Red Blood Count 4.44 X10*6/uL (4.20-5.50); Red Cell Distribution Width 15.3 % (11.0-16.0); SCAN SMEAR FLAG 1; White Blood Count 13.1 X10*3/uL (4.8-10.8)
[2023-03-01 06:01] LABS: Anion Gap 14 (12-20); Blood Urea Nitrogen 8 mg/dL (9-16); Calcium 9.5 mg/dL (8.4-10.2); Carbon Dioxide 24 mmol/L (22-29); Chloride 104 mmol/L (96-108); Creatinine Clr Calc Pharmacy 114.3; Estimated Glomerular Filt Rate > 60; Glucose Random 173 mg/dL (60-115); Sodium 138 mmol/L (135-145)
[2023-03-01 06:08] LABS: SLIDE REVIEW VERIFIED
[2023-03-01] MEDS: Azithromycin 500 MG in 0.9 % Sodium Chloride 250 ML 125 MG IV (06:18)
--- NOTE | 2023-03-01 06:26 | PC.NURSE ---
Pt medicated per jun. Plan of care ongoing.
[2023-03-01] MEDS: Acetaminophen 325 MG TABLET 650 MG PO (06:34)
--- NOTE | 2023-03-01 06:36 | PC.NURSE ---
Pt requested meds for headache. Pt medicated per jun. Plan of care ongoing.
[2023-03-01 07:09] LABS: Glucose, Whole Blood 187 mg/dL (60-115)
[2023-03-01] MEDS: Insulin Lispro 100 UNIT/ML 3 ML VIAL SUBCUT ×3 (07:29→20:33)
[2023-03-01] MEDS: 0.9 % Sodium Chloride Flush 3 ML SYRINGE IVFLUSH ×2 (07:30→20:34)
[2023-03-01] MEDS: Enoxaparin Sodium 40 MG/0.4 ML SYRINGE SUBCUT (07:30)
[2023-03-01] MEDS: Nicotine 14 MG PATCH.TD24 TRANSDERMA (07:30)
[2023-03-01] MEDS: Albuterol/Iprat 2.5/0.5MG 3 ML AMPUL.NEB INHALE ×4 (08:14→19:29)
--- NOTE | 2023-03-01 08:28 | PM.EVENT ---
Event Note Date of Service: 03/02/23 Event Note: pt seen and evaluated, she was admitted this moring with sepsis, pneumonia and overall improving, continue as outline in H and P from this morning. Med rec still pending Time Spent With Patient Time: Total time managing care of this patient today ____ minutes.
--- NOTE | 2023-03-01 09:12 | PC.NURSE ---
this RN resumed care of pt at this time. attempted to give report to RN on S3 - nurse is busy completing task at this time - states that they will call back to receive report shortly.
--- NOTE | 2023-03-01 09:13 | PHA.MEDREC ---
Pharmacy Consult ? Medication Reconciliation Pharmacy has completed the medication reconciliation. Spoke to patient's home nurse Cade ([phone]) who listed all medications
--- NOTE | 2023-03-01 09:25 | PC.NURSE ---
report given to RN on S3 - transport notified at this time.
[2023-03-01 11:29] LABS: Glucose, Whole Blood 141 mg/dL (60-115)
[2023-03-01] MEDS: metFORMIN HCl 500 MG TABLET PO ×2 (12:41→16:56)
[2023-03-01] MEDS: buPROPion HCl XL 300 MG TAB.ER.24H PO (12:41)
[2023-03-01] MEDS: buPROPion HCl XL 150 MG TAB.ER.24H PO (12:41)
--- NOTE | 2023-03-01 12:54 | MHC.CM.PN ---
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
[2023-03-01] MEDS: SUMAtriptan succinate 25 MG TABLET PO (14:33)
[2023-03-01] MEDS: methylPREDNISolone Sod Succ 40 MG/ML VIAL IVPUSH (14:33)
[2023-03-01 16:22] LABS: Glucose, Whole Blood 172 mg/dL (60-115)
[2023-03-01] MEDS: Omeprazole 20 MG CAPSULE.DR PO (16:56)
[2023-03-01 20:14] LABS: Glucose, Whole Blood 172 mg/dL (60-115)
[2023-03-01] MEDS: Gabapentin 400 MG CAPSULE 800 MG PO (20:33)
[2023-03-01] MEDS: Prazosin HCL 5 MG CAPSULE PO (20:33)
[2023-03-01] MEDS: Mirtazapine 15 MG TABLET PO (20:34)
[2023-03-01] MEDS: Prazosin HCL 1 MG CAPSULE 2 MG PO (20:34)
[2023-03-01] MEDS: Montelukast Sodium 10 MG TABLET PO (20:34)
[2023-03-01] MEDS: PARoxetine HCL 40 MG TABLET PO (20:34)
[2023-03-01] MEDS: cefTRIAXone sodium 1 GM in 0.9 % Sodium Chloride 50 ML IV (21:33)
[2023-03-02] MEDS: methylPREDNISolone Sod Succ 40 MG/ML VIAL IVPUSH ×2 (02:08→14:08)
[2023-03-02 03:46] VITALS: BP 125/64; PULSE 93; RESP 20; TEMP 36.1; O2SAT 97
[2023-03-02] MEDS: Azithromycin 500 MG in 0.9 % Sodium Chloride 250 ML 125 MG IV (05:39)
[2023-03-02] MEDS: Omeprazole 20 MG CAPSULE.DR PO (05:40)
[2023-03-02 07:04] VITALS: BP 132/72; PULSE 73; RESP 18; TEMP 36.6; O2SAT 96
[2023-03-02 07:08] LABS: Glucose, Whole Blood 220 mg/dL (60-115)
[2023-03-02 07:22] VITALS: PULSE 84; RESP 18; O2SAT 98
[2023-03-02] MEDS: Fluticasone/Vilanterol 200/25 BLST.W.DEV 2 PUFF INHALE (07:22)
[2023-03-02] MEDS: Albuterol/Iprat 2.5/0.5MG 3 ML AMPUL.NEB INHALE ×2 (07:22→12:34)
[2023-03-02] MEDS: Insulin Lispro 100 UNIT/ML 3 ML VIAL SUBCUT (07:28)
[2023-03-02] MEDS: 0.9 % Sodium Chloride Flush 3 ML SYRINGE IVFLUSH (07:29)
[2023-03-02] MEDS: metFORMIN HCl 500 MG TABLET PO (07:30)
[2023-03-02] MEDS: buPROPion HCl XL 300 MG TAB.ER.24H PO (07:30)
[2023-03-02] MEDS: Enoxaparin Sodium 40 MG/0.4 ML SYRINGE SUBCUT (07:30)
[2023-03-02] MEDS: buPROPion HCl XL 150 MG TAB.ER.24H PO (07:30)
[2023-03-02 11:11] LABS: Glucose, Whole Blood 150 mg/dL (60-115)
--- NOTE | 2023-03-02 11:18 | PM.DS ---
DS: Providers Provider Date of Service: 03/02/23 Date of admission: 03/01/23 02:16 Primary care physician: Tatum Magdaleno MD DS: Diagnosis Discharge Diagnosis (1) Acute and chronic respiratory failure: Status: Resolved (2) Pneumonia: Status: Acute DS: Summary Hospital Course Hospital Course: Chief Complaint: Dyspnea This is a 42-year-old female with pertinent history of mood disorder, gastroesophageal reflux disease, tobacco use disorder, chronic hypoxemic respiratory failure due to COPD on 2 L supplemental oxygen who presents to the emergency department for evaluation of dyspnea. Patient states that about 3 days prior to presentation, she started having productive cough which was persistent. Also started having dyspnea, which was worse with exertion. Had associated wheezing. Patient tried her home inhaler without relief. No sick contacts. Denies fever, chills, chest discomfort, palpitations, abdominal pain, changes in urinary or bowel habits. Admits nausea In the emergency department, patient was found to be septic with increasing oxygen requirements. Imaging concerning for pneumonia. Hospital course:Admitted with dyspnea and severe acute hypoxic respiratory failure, the patient was diagnosed with community-acquired pneumonia and an exacerbation of chronic obstructive pulmonary disease (COPD). Treatment included ceftriaxone and azithromycin for pneumonia, intravenous steroids and bronchodilators for the COPD exacerbation. The patient has shown significant improvement. Hypoxia has resolved, she is not febrile, and her breathing is comfortable. The plan is to transition her to oral cefuroxime 500 mg twice daily, complete a 5-day course of prednisone, and continue supplemental oxygen as previously prescribed. Weight management through exercise and dietary monitoring is encouraged. Final diagnosess: Acute hypoxic respiratory failure acute exacerbation of COPD community-acquired pneumonia obesity Time Attestation Discharge coordination time: Greater than 30 minutes Quality: Safe Use of Opioids Does Pt have an Active Cancer Diagnosis on the Problem List?: No Quality: Stroke Does the patient have a stroke diagnosis?: No Physical Exam Vital Signs: Vital Signs: Last Vital Signs Temp 98 F 03/02/23 07:04 Pulse 84 03/02/23 07:22 Resp 18 03/02/23 07:22 BP 132/72 03/02/23 07:04 Pulse Ox 96 03/02/23 07:04 O2 Del Method Nasal Cannula 03/02/23 07:04 O2 Flow Rate 3 03/02/23 03:46 BMI result Body Mass Index 49.1 DS: Data Data Completed and Pending Completed studies during hospitalization [Text1]: Procedures Assistance with Respiratory Ventilation, Less than 24 Consecutive Hours, Continuous Positive Airway Pressure (04/23/22) Insertion of Endotracheal Airway into Trachea, Via Natural or Artificial Opening (04/23/22) Insertion of Infusion Device into Superior Vena Cava, Percutaneous Approach (04/23/22) Introduction of Baricitinib into Mouth and Pharynx, External Approach, [employer] (04/23/22) Introduction of Vasopressor into Peripheral Vein, Percutaneous Approach (04/23/22) Respiratory Ventilation, Greater than 96 Consecutive Hours (04/23/22) Ultrasonography of Superior Vena Cava, Guidance (04/23/22) Labs on day of discharge: Laboratory Results - last 24 hr 03/01/23 03/01/23 03/01/23 11:20 16:18 20:11 POC Glucose 141 H 172 H 172 H 03/02/23 03/02/23 07:04 11:07 POC Glucose 220 H 150 H Preliminary micro results at discharge 03/01/23 00:53 Blood Culture - Preliminary Blood - Venous No growth after 24 hours. 02/28/23 23:55 Blood Culture - Preliminary Blood - Venous No growth after 24 hours. Discharge Plan Discharge Anticipated Discharge Date/Time: 03/02/23 11:11 Patient Disposition: Home Health Service Discharge Diagnosis: COPD exacerbation, Pneumonia Referrals: [facility] [Outside] - 1 Day (RESUMPTION OF CARE) Tatum Magdaleno MD [Primary Care Provider] - 1 Week Discharge Medications: New cefuroxime axetil 500 mg tablet 500 mg PO BID 7 Days Qty: 14 0RF prednisone 20 mg tablet 40 mg PO DAILY Qty: 6 0RF Continued metformin 500 mg tablet 500 mg PO BID 30 Days Qty: 60 0RF (DME) FreeStyle Lite Strips Strip Qty: 100 0RF Rx Instructions: Test four times a day or as directed. (DME) blood-glucose meter [FreeStyle Lite Meter] Kit Qty: 1 0RF Rx Instructions: As Directed (DME) lancets [FreeStyle Lancets] 28 gauge misc Qty: 100 0RF Rx Instructions: Test four times a day or as directed. bupropion HCl 150 mg tablet extended release 24 hr 150 mg PO DAILY albuterol sulfate 2.5 mg /3 mL (0.083 %) solution for nebulization 2.5 mg inhalation Q6H PRN (Reason: wheezing) riboflavin (vitamin B2) [Vitamin B-2] 100 mg tablet 200 mg PO DAILY sumatriptan succinate 25 mg tablet 25 mg PO DAILY MDD 50mg PRN (Reason: Migraine Headache) Rx Instructions: MRX1 after 2 hours gabapentin 400 mg capsule 800 mg PO BEDTIME hydroxyzine pamoate 50 mg capsule 50 mg PO QID PRN (Reason: Anxiety) prazosin [Minipress] 5 mg capsule 5 mg PO BEDTIME Rx Instructions: TAKE WITH 2MG pantoprazole 40 mg tablet,delayed release (DR/EC) 40 mg PO BID nicotine 21 mg/24 hr patch 24 hour 1 patch topical DAILY PRN (Reason: Nicotine Cravings) montelukast 10 mg tablet 10 mg PO BEDTIME cyanocobalamin (vitamin B-12) 1,000 mcg tablet, sublingual 1,000 mcg sublingual DAILY mirtazapine 15 mg tablet 15 mg PO BEDTIME gabapentin 100 mg capsule 100 mg PO BID PRN (Reason: Pain) albuterol sulfate [Ventolin HFA] 90 mcg/actuation HFA aerosol inhaler 2 puff inhalation Q6H dicyclomine 10 mg capsule 20 mg PO Q8H PRN (Reason: Pain) prazosin 2 mg capsule 2 mg PO BEDTIME Rx Instructions: TAKE WITH 5MG bupropion HCl [Wellbutrin XL] 300 mg tablet extended release 24 hr 300 mg PO DAILY budesonide-formoterol [Symbicort] 160-4.5 mcg/actuation HFA aerosol inhaler 2 puff INHALATION BID acetaminophen [Tylenol] 325 mg Tablet 650 mg PO Q6H PRN (Reason: Pain) polyethylene glycol 3350 17 gram powder in packet 17 g PO DAILY PRN (Reason: Constipation) paroxetine HCl 40 mg tablet 40 mg PO BEDTIME meloxicam 15 mg tablet 15 mg PO DAILY PRN (Reason: pain) triamcinolone acetonide 55 mcg aerosol,spray 1 spray intranasal DAILY ondansetron 4 mg tablet,disintegrating 4 mg PO Q8H PRN (Reason: nausea/vomiting) Discharge Orders: Discharge Order (Routine); Ordered 03/02/23 Ordered By: Roger Flores Diet: Diabetic diet Activity on Discharge: As tolerated Stand Alone Forms: Patient Portal Discharge page Care Plan Goals: recovery from pneumonia and copd Health Concerns: copd pneumonia obesity Plan of Treatment: take cefuroxime 500 mg twice daily to treat pneumonia take Prednisone for copd exacerbation continue using oxygen and inhalers as before follow up with your doctor in a week Assessment: as above Discharge Date/Time: 03/02/23 14:44
[2023-03-02 12:35] VITALS: PULSE 86; RESP 16; O2SAT 97
--- NOTE | 2023-03-02 12:50 | MHC.CM.PN ---
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
[2023-03-02] MEDS: SUMAtriptan succinate 25 MG TABLET PO (14:08)
== END 2023-03-02 14:44 | disposition home health service (06) | DRG 139 ==
LOC: HO.ED 03-01 02:19 → HO.EDOVER 03-01 02:23 → HO.S3 03-01 07:44
PROVIDERS: Admitting Provider Student in an Organized Health Care Education/Training Program; Emergency Provider Internal Medicine; PCP Family Medicine; Visit Provider Internal Medicine
DX: J18.9 Pneumonia, unspecified organism (principal); J96.21 Acute and chronic respiratory failure with hypoxia; Z99.81 Dependence on supplemental oxygen; J44.0 Chronic obstructive pulmonary disease with (acute) lower respiratory infection; J44.1 Chronic obstructive pulmonary disease with (acute) exacerbation; Z20.822 Contact with and (suspected) exposure to COVID-19; Z79.84 Long term (current) use of oral hypoglycemic drugs; Z87.891 Personal history of nicotine dependence; Z79.899 Other long term (current) drug therapy
CPT/HCPCS: 0241U; 36415; 71045; 80048; 80076; 82947; 83605; 83690; 84484; 85025; 87040; 93005; 94640; 99285; J0456; J0696; J1650; J2405; J2920; J2930

== ENCOUNTER → 2023-03-01 02:16 | Outpatient (BNV) | payer OTHER, SELFPAY | PROVIDERS: Admitting Provider Student in an Organized Health Care Education/Training Program; Emergency Provider Internal Medicine; PCP Family Medicine; Visit Provider Student in an Organized Health Care Education/Training Program | DX: J96.21 Acute and chronic respiratory failure with hypoxia (principal); J18.9 Pneumonia, unspecified organism | CPT/HCPCS: 99222; 99239; 99499 ==

== ENCOUNTER 2023-04-23 10:03 | Inpatient (IN) | payer OTHER, SELFPAY ==
[2023-04-23] VITALS (7 sets, daily range): BP systolic 105–140; BP diastolic 62–90; PULSE 85–113; RESP 15–22; TEMP 36.6–37.1; O2SAT 95–99; BMI 62.8
--- NOTE | 2023-04-23 | ECG_ITS ---
Test Reason : SOB Blood Pressure : / mmHG Vent. Rate : 110 BPM Atrial Rate : 110 BPM P-R Int : 128 ms QRS Dur : 088 ms QT Int : 332 ms P-R-T Axes : 046 041 007 degrees QTc Int : 449 ms Sinus tachycardia Otherwise normal ECG When compared with ECG of 28-FEB-2023 22:01, No significant change was found Referred By: Vanda Tian Electronically Signed By:IVIS MONTGOMERY
--- NOTE | ~2023-04-23 | XR_ITS ---
EXAMINATION: XR CHEST CLINICAL INFORMATION: Cough COMPARISON: Chest radiograph from 03/01/2023 TECHNIQUE: Frontal view of the chest was obtained. FINDINGS: Low lung volumes. Improvement in right upper lobe infiltrate with a residual amount reidentified. Bronchial wall thickening. Perihilar opacities. No pneumothorax. Trachea is midline. Cardiomediastinal silhouette is stable. No large pleural effusion. Osseous structures are intact. Soft tissues are unremarkable. XR/XR chest 1V IMPRESSION: 1. Low lung volumes. 2. Improvement in right upper lobe infiltrate with a residual amount reidentified. 3. Bronchial wall thickening. 4. Perihilar opacities.
[2023-04-23] MEDS: Albuterol Sulfate 5 MG, Albuterol/Iprat 2.5/0.5MG 3 ML 3 ML INHALE (10:13)
[2023-04-23] MEDS: Albuterol Sulfate 7.5 MG, Albuterol Sulfate (0.083%) 2.5 MG 10 MG INHALE (10:30)
[2023-04-23 10:37] LABS: MANUAL DIFF FLAG NO
[2023-04-23 10:39] LABS: Basophils Absolute Auto 0.1 X10*3/uL (0.0-0.2); Basophils Percent Auto 0.6 % (0-2); Eosinophils Absolute Auto 1.2 X10*3/uL (0.0-0.4); Eosinophils Percent Auto 9.2 % (0-4); Hematocrit 34.8 % (37.0-47.0); Hemoglobin 10.7 g/dl (12.0-16.0); Imm Gran Abs Auto 0.05 X10*3/uL (0.00-0.03); Imm Gran Pct Auto 0.4 % (0.0-0.4); Lymphocytes Absolute Auto 2.1 X10*3/uL (1.2-4.9); Lymphocytes Percent Auto 17.1 % (20-40); Mean Corpuscular HGB Conc 30.7 g/dl (31.0-35.0); Mean Corpuscular Hemoglobin 25.1 pg (27.0-33.0); Mean Corpuscular Volume 81.5 fL (80.0-98.0); Mean Platelet Volume 9.6 fL (9.4-12.3); Monocytes Absolute Auto 1.1 X10*3/uL (0.1-1.2); Monocytes Percent Auto 8.5 % (2-11); Neutrophils Absolute Auto 8.1 x10*3/uL (2.0-8.3); Neutrophils Percent Auto 64.2 % (45-73); Platelet Count 316 X10*3/uL (160-400); Red Blood Count 4.27 X10*6/uL (4.20-5.50); Red Cell Distribution Width 16.1 % (11.0-16.0); White Blood Count 12.5 X10*3/uL (4.8-10.8)
[2023-04-23] MEDS: methylPREDNISolone Sod Succ 125 MG/2 ML VIAL 60 MG IVPUSH (10:45)
[2023-04-23] MEDS: Magnesium Sulfate/H2O 2 GM/50 ML PIGGYBACK IV (10:45)
--- NOTE | 2023-04-23 10:45 | ED.ASTHMA ---
HPI - Asthma General Chief Complaint: Dyspnea Stated Complaint: DIFF BREATHING FOR DAYS,100% ON DUONEB PER EMS Time Seen by Provider: 04/23/23 10:08 Source: patient, EMS and old records reviewed Mode of arrival: EMS Limitations: no limitations History of Present Illness HPI Narrative: 42 yo female with PMH of asthma, COPD with chronic respiratory failure on 2L NC, pneumonia, complicated COVID course last year resulting in respiratory arrest and ICU stay with intubation and MSSA pneumonia. She notes she was just hospitalized at [facility] for 6 days about 4 weeks ago treated with antibiotics and steroids for COVID-19 and asthma. She comes in with 4 days of nausea, asthma, productive cough, diarrhea, chest tightness, wheezing, mucous production. She was found 90% on 2L NC and EMS gave a duoneb. She denies smoking or sick contacts in the home. MD complaint: asthma attack , shortness of breath and wheezing Onset (ago): day(s) (4) Severity: moderate Context: recent URI Associated symptoms: productive cough Asthma History: childhood onset Treatments Prior to Arrival: inhaled bronchodilator Related Data Home Medications Medication Instructions Recorded Confirmed acetaminophen 325 mg tablet 650 mg PO Q6H PRN Pain 11/16/22 03/01/23 (Tylenol) albuterol sulfate 2.5 mg/3 mL 2.5 mg inhalation Q6H PRN wheezing 11/16/22 03/01/23 (0.083 %) solution for nebulization albuterol sulfate 90 mcg/actuation 2 puff inhalation Q6H 11/16/22 03/01/23 aerosol inhaler (Ventolin HFA) budesonide-formoterol HFA 160 2 puff inhalation BID 11/16/22 03/01/23 mcg-4.5 mcg/actuation aerosol inhaler (Symbicort) bupropion HCl 300 mg 24 hr tablet, 300 mg PO DAILY 11/16/22 03/01/23 extended release (Wellbutrin XL) cyanocobalamin (vitamin B-12) 1,000 mcg sublingual DAILY 11/16/22 03/01/23 1,000 mcg sublingual tablet dicyclomine 10 mg capsule 20 mg PO Q8H PRN Pain 11/16/22 03/01/23 gabapentin 100 mg capsule 100 mg PO BID PRN Pain 11/16/22 03/01/23 gabapentin 400 mg capsule 800 mg PO BEDTIME 11/16/22 03/01/23 hydroxyzine pamoate 50 mg capsule 50 mg PO QID PRN Anxiety 11/16/22 03/01/23 mirtazapine 15 mg tablet 15 mg PO BEDTIME 11/16/22 03/01/23 montelukast 10 mg tablet 10 mg PO BEDTIME 11/16/22 03/01/23 nicotine 21 mg/24 hr daily 1 patch topical DAILY PRN Nicotine 11/16/22 03/01/23 transdermal patch Cravings pantoprazole 40 mg tablet,delayed 40 mg PO BID 11/16/22 03/01/23 release paroxetine HCl 40 mg tablet 40 mg PO BEDTIME 11/16/22 03/01/23 polyethylene glycol 3350 17 gram 17 g PO DAILY PRN Constipation 11/16/22 03/01/23 oral powder packet prazosin 2 mg capsule 2 mg PO BEDTIME 11/16/22 03/01/23 prazosin 5 mg capsule (Minipress) 5 mg PO BEDTIME 11/16/22 03/01/23 riboflavin (vitamin B2) 100 mg 200 mg PO DAILY 11/16/22 03/01/23 tablet (Vitamin B-2) sumatriptan succinate 25 mg tablet 25 mg PO DAILY PRN Migraine 11/16/22 03/01/23 Headache bupropion HCl 150 mg 24 hr tablet, 150 mg PO DAILY 02/05/23 03/01/23 extended release meloxicam 15 mg tablet 15 mg PO DAILY PRN pain 03/01/23 03/01/23 ondansetron 4 mg disintegrating 4 mg PO Q8H PRN nausea/vomiting 03/01/23 03/01/23 tablet triamcinolone acetonide 55 mcg 1 spray intranasal DAILY 03/01/23 03/01/23 nasal spray aerosol Previous Rx's Medication Instructions Recorded blood sugar diagnostic (FreeStyle #100 ea 12/17/22 Lite Strips) blood-glucose meter (FreeStyle #1 ea 12/17/22 Lite Meter kit) lancets 28 gauge (FreeStyle #100 ea 12/17/22 Lancets) metformin 500 mg tablet 500 mg PO BID 30 days #60 tabs 12/17/22 cefuroxime axetil 500 mg tablet 500 mg PO BID 7 days #14 tabs 03/02/23 prednisone 20 mg tablet 40 mg (2 x 20 mg) PO DAILY #6 tabs 03/02/23 Allergies Allergy/AdvReac Type Severity Reaction Status Date / Time promethazine [From PHENERGAN] Allergy Unknown ITCHING Verified 04/23/23 10:17 egg Allergy Hives Verified 04/23/23 10:17 codeine [CODEINE] AdvReac Unknown STOMACH Verified 04/23/23 10:17 UPSET morphine [MORPHINE] AdvReac Unknown MORE PAIN Verified 04/23/23 10:17 Review of Systems Review of Systems: Constitutional : No Fever, pos Chills ENT/Mouth : No Hoarseness, No sore throat, No Rhinorrhea Eyes: No Redness, No Discharge, No Vision Changes Cardiovascular : No Chest Pain, positive SOB, positive Dyspnea on Exertion, No Edema Respiratory : positive Cough, No Sputum, positive Wheezing, Gastrointestinal : pos Nausea, No Vomiting, pos Diarrhea, No abdominal Pain Genitourinary : No Dysuria, No Hematuria Musculoskeletal : No joint pain, No Myalgias Skin : No rash Neuro : No Weakness, No Numbness, No Headache Psych : No anxiety, depression Heme/Lymph: No Bruising, No Bleeding Endocrine : No Polyuria, No Polydipsia All other systems reviewed and are negative PMFSH Past Medical History Source: old records reviewed Medical History Chronic lung disease Lower extremity edema ILD (interstitial lung disease) Panic attack as reaction to stress Recurrent major depression Generalized anxiety disorder Morbid obesity Sinus infection Disc herniation H. pylori infection Depression Migraine Asthma Surgical History History of Social History Social History Household Members: Spouse and Children Housing: Apartment Housing Other:: 2nd fl Do you presently have visiting nurse or other home services: Yes ([facility] and [facility].) Alcohol intake: never Comment: 1:1 sitter Patient Tobacco Use Status: Former Tobacco user Quit Date: 11/14/22 Tobacco use type: Cigarette Cigarette Packs Per Day: 2 Cigarettes Per Day: 5 Smoked in Last 30 Days: No Second Hand Smoke Exposure: Yes Use of substances other than those prescribed or required for medical reasons: No Advance Directives: Yes Advance Directives on File: Yes Advance Directives Date on File: 05/12/22 service: No Current occupational status: unemployed Physical Exam Vital Signs: Vital Signs: Last Vital Signs Temp 98.7 F 04/23/23 10:13 Pulse 109 H 04/23/23 10:32 Resp 20 04/23/23 10:32 BP 113/62 04/23/23 10:13 Pulse Ox 95 04/23/23 10:13 O2 Del Method Nasal Cannula 04/23/23 10:13 Oxygen Flow Rate 2 04/23/23 10:13 BMI result Body Mass Index 62.8 Appearance: Alert. Oriented X3. Mild acute distress. Eyes: Pupils equal, round and reactive to light. ENT: Pharynx normal. Neck: Normal inspection. Neck supple. CVS: tachycardic heart rate and rhythm. Pulses normal. Respiratory: Mild respiratory distress - tachypnea/retractions. Breath sounds diffuse exp and insp wheezes throughout Abdomen: Soft and nontender. obese Skin: Skin warm and dry. Normal skin color. Normal skin turgor. Extremities: No lower extremity edema. No calf ttp Neuro: Oriented X 3. No motor deficit. No sensory deficit. Medications Administered Discontinued Medications Generic Name Dose Route Start Last Admin Trade Name Freq PRN Reason Stop Dose Admin Albuterol Sulfate 7.5 mg/ 10 mg 04/23/23 10:27 04/23/23 10:30 Albuterol Sulfate 2.5 mg INHALE 04/23/23 10:28 10 mg ONCE ONE Administration Albuterol Sulfate 5 mg/ 0 mg 04/23/23 10:09 04/23/23 10:13 Albuterol/Ipratropium 3 ml INHALE 04/23/23 10:10 1 each ONCE ONE Administration Cefepime HCl 1 gm/ Sodium 50 mls @ 100 mls/hr 04/23/23 10:15 04/23/23 12:33 Chloride IV 04/23/23 10:44 100 mls/hr ONCE ONE Administration Magnesium Sulfate 2 gm in 50 mls @ 25 mls/hr 04/23/23 10:38 04/23/23 10:45 Magnesium Sulfate/H2o IV 04/23/23 12:37 25 mls/hr ONCE ONE Administration Methylprednisolone Sodium Succinate 60 mg 04/23/23 10:14 04/23/23 10:45 Methylprednisolone Sod Succ 125 Mg/2 Ml Vial IVPUSH 04/23/23 10:15 60 mg ONCE ONE Administration Medical Decision Making Medical Decision Making [facility] Narrative: 42 yo female with PMH of asthma, COPD with chronic respiratory failure on 2L NC, pneumonia, complicated COVID course last year resulting in respiratory arrest and ICU stay with intubation and MSSA pneumonia here with 4 days of URI symptoms, diarrhea, nausea, asthma now with mild resp distress and wheezing at this time IV steroids, IV magnesium, repeat hour long nebs, CXR, steroids, and given recent COVID with prior pneumonia post COVID will empirically treat with cefepime. Planned admit Differential Diagnosis Differential Diagnoses: The differential diagnosis associated with the presentation includes COPD, asthma, viral syndrome, pneumonia Admission/Observation Consideration of admission/observation: Escalation of care including admission/observation considered admit given work of breathing recent steroid use Consult Healthcare Provider Management of the patient was discussed with: Hospitalist (will admit) Lab Data [facility] Lab Attestation statement: I reviewed the patient's lab results. 04/23/23 10:31 04/23/23 11:19 Labs: Lab Results 04/23/23 04/23/23 04/23/23 Range/Units 10:31 10:32 11:19 WBC 12.5 H (4.8-10.8) X10*3/uL RBC 4.27 (4.20-5.50) X10*6/uL Hgb 10.7 L (12.0-16.0) g/dl Hct 34.8 L (37.0-47.0) % MCV 81.5 (80.0-98.0) fL MCH 25.1 L (27.0-33.0) pg MCHC 30.7 L (31.0-35.0) g/dl RDW 16.1 H (11.0-16.0) % Plt Count 316 (160-400) X10*3/uL MPV 9.6 (9.4-12.3) fL Immature Gran % (Auto) 0.4 (0.0-0.4) % Neut % (Auto) 64.2 (45-73) % Lymph % (Auto) 17.1 L (20-40) % [place] % (Auto) 8.5 (2-11) % Eos % (Auto) 9.2 H (0-4) % Baso % (Auto) 0.6 (0-2) % Lymph # (Auto) 2.1 (1.2-4.9) X10*3/uL [place] # (Auto) 1.1 (0.1-1.2) X10*3/uL Eos # (Auto) 1.2 H (0.0-0.4) X10*3/uL Baso # (Auto) 0.1 (0.0-0.2) X10*3/uL Abs Immat Gran (auto) 0.05 H (0.00-0.03) X10*3/uL Absolute Neuts (auto) 8.1 (2.0-8.3) x10*3/uL Absolute Nucleated RBC 0.000 (0.0-0.012) X10*3/uL Nucleated RBC % (auto) 0.0 (0.0-0.2) /100WBC PT 12.9 (11.1-13.3) SEC INR 1.1 (0.9-1.1) VBG pH (7.32-7.43) VBG pCO2 mmHg VBG pO2 mmHg VBG HCO3 (22-26) mmol/L VBG O2 Saturation % VBG Base Excess mmol/L Sodium 138 (135-145) mmol/L Potassium 3.9 (3.3-5.1) mmol/L Chloride 104 (96-108) mmol/L Carbon Dioxide 26 (22-29) mmol/L Anion Gap 12 (12-20) BUN 9 (9-16) mg/dL Creatinine 0.74 (0.5-1.4) mg/dL Estim Creat Clear Calc 112.3 Estimated GFR > 60 Random Glucose 117 H (60-115) mg/dL Lactic Acid 0.9 (0.5-2.0) mmol/L Calcium 9.0 (8.4-10.2) mg/dL Magnesium 1.6 (1.6-2.6) mg/dL Total Bilirubin 0.4 (0.0-1.0) mg/dL Direct Bilirubin 0.1 (0.0-0.5) mg/dL AST 17 (5-31) U/L ALT 29 (0-31) U/L Alkaline Phosphatase 78 (39-117) U/L Troponin I High Sens < 2.7 (<3.5-17.0) ng/L B-Natriuretic Peptide < 10 (<100) pg/mL Total Protein 6.5 (6.5-8.0) g/dL Albumin 3.7 (3.5-5.0) g/dL Lipase 4 L (8-78) U/L Procalcitonin 0.02 ng/mL Urine Color Urine Appearance Urine pH (5.0-9.0) Ur Specific [place] (1.005-1.025) Urine Protein (Neg-Trace) mg/dL Urine Glucose (UA) (Negative) mg/dL Urine Ketones (Negative) mg/dL Urine Blood (Negative) Urine Nitrite (Negative) Ur Leukocyte Esterase (Negative) Influenza Type A (PCR) NEGATIVE (Negative) Influenza Type B (PCR) NEGATIVE (Negative) RSV RNA Qual (PCR) NEGATIVE (Negative) SARS-CoV-2 RNA (RT-PCR) NEGATIVE (Negative) 04/23/23 04/23/23 Range/Units 11:23 12:29 WBC (4.8-10.8) X10*3/uL RBC (4.20-5.50) X10*6/uL Hgb (12.0-16.0) g/dl Hct (37.0-47.0) % MCV (80.0-98.0) fL MCH (27.0-33.0) pg MCHC (31.0-35.0) g/dl RDW (11.0-16.0) % Plt Count (160-400) X10*3/uL MPV (9.4-12.3) fL Immature Gran % (Auto) (0.0-0.4) % Neut % (Auto) (45-73) % Lymph % (Auto) (20-40) % [place] % (Auto) (2-11) % Eos % (Auto) (0-4) % Baso % (Auto) (0-2) % Lymph # (Auto) (1.2-4.9) X10*3/uL [place] # (Auto) (0.1-1.2) X10*3/uL Eos # (Auto) (0.0-0.4) X10*3/uL Baso # (Auto) (0.0-0.2) X10*3/uL Abs Immat Gran (auto) (0.00-0.03) X10*3/uL Absolute Neuts (auto) (2.0-8.3) x10*3/uL Absolute Nucleated RBC (0.0-0.012) X10*3/uL Nucleated RBC % (auto) (0.0-0.2) /100WBC PT (11.1-13.3) SEC INR (0.9-1.1) VBG pH 7.45 H (7.32-7.43) VBG pCO2 40 mmHg VBG pO2 122 mmHg VBG HCO3 28 H (22-26) mmol/L VBG O2 Saturation 100.0 % VBG Base Excess 4.3 mmol/L Sodium (135-145) mmol/L Potassium (3.3-5.1) mmol/L Chloride (96-108) mmol/L Carbon Dioxide (22-29) mmol/L Anion Gap (12-20) BUN (9-16) mg/dL Creatinine (0.5-1.4) mg/dL Estim Creat Clear Calc Estimated GFR Random Glucose (60-115) mg/dL Lactic Acid (0.5-2.0) mmol/L Calcium (8.4-10.2) mg/dL Magnesium (1.6-2.6) mg/dL Total Bilirubin (0.0-1.0) mg/dL Direct Bilirubin (0.0-0.5) mg/dL AST (5-31) U/L ALT (0-31) U/L Alkaline Phosphatase (39-117) U/L Troponin I High Sens (<3.5-17.0) ng/L B-Natriuretic Peptide (<100) pg/mL Total Protein (6.5-8.0) g/dL Albumin (3.5-5.0) g/dL Lipase (8-78) U/L Procalcitonin ng/mL Urine Color Yellow Urine Appearance Clear Urine pH 5.5 (5.0-9.0) Ur Specific [place] 1.025 (1.005-1.025) Urine Protein Negative (Neg-Trace) mg/dL Urine Glucose (UA) Negative (Negative) mg/dL Urine Ketones Trace (Negative) mg/dL Urine Blood Negative (Negative) Urine Nitrite Negative (Negative) Ur Leukocyte Esterase Negative (Negative) Influenza Type A (PCR) (Negative) Influenza Type B (PCR) (Negative) RSV RNA Qual (PCR) (Negative) SARS-CoV-2 RNA (RT-PCR) (Negative) Independent Interpretation I performed an independent interpretation of an: EKG and Plain X-Ray (no consolidation seen) Interpretation: Rate: 110 Rhythm: sinus tachycardia [place]: normal Normal P waves. Normal DONALD. Normal QRS complex. ST T wave : nonspecific ST T wave changes. no JAROCHO qTC: normal prior studies: no acute ischemia The study has been interpreted contemporaneously by me. . Radiology Impression Discussion of test interpretation with radiology: I have reviewed the radiologist's reading. Independent Historian Clinical information obtained from an independent historian. History obtained from or confirmed by: EMS External Record Review External record reviewed: Inpatient record Critical Care Time Critical Care Time Critical Care Time: Yes Total Critical Care Time: 45 Attestation: repeat hour long nebs, IV magnesium, admission I attest to this time spent taking care of the patient Discharge Plan Discharge Clinical Impression: Acute exacerbation of chronic obstructive airways disease Patient Disposition: Admitted As Inpatient Prescriptions: No Action metformin 500 mg tablet 500 mg PO BID 30 Days Qty: 60 0RF (DME) FreeStyle Lite Strips Strip Qty: 100 0RF Rx Instructions: Test four times a day or as directed. (DME) blood-glucose meter [FreeStyle Lite Meter] Kit Qty: 1 0RF Rx Instructions: As Directed (DME) lancets [FreeStyle Lancets] 28 gauge misc Qty: 100 0RF Rx Instructions: Test four times a day or as directed. bupropion HCl 150 mg tablet extended release 24 hr 150 mg PO DAILY albuterol sulfate 2.5 mg /3 mL (0.083 %) solution for nebulization 2.5 mg inhalation Q6H PRN (Reason: wheezing) riboflavin (vitamin B2) [Vitamin B-2] 100 mg tablet 200 mg PO DAILY sumatriptan succinate 25 mg tablet 25 mg PO DAILY MDD 50mg PRN (Reason: Migraine Headache) Rx Instructions: MRX1 after 2 hours gabapentin 400 mg capsule 800 mg PO BEDTIME hydroxyzine pamoate 50 mg capsule 50 mg PO QID PRN (Reason: Anxiety) prazosin [Minipress] 5 mg capsule 5 mg PO BEDTIME Rx Instructions: TAKE WITH 2MG pantoprazole 40 mg tablet,delayed release (DR/EC) 40 mg PO BID nicotine 21 mg/24 hr patch 24 hour 1 patch topical DAILY PRN (Reason: Nicotine Cravings) montelukast 10 mg tablet 10 mg PO BEDTIME cyanocobalamin (vitamin B-12) 1,000 mcg tablet, sublingual 1,000 mcg sublingual DAILY mirtazapine 15 mg tablet 15 mg PO BEDTIME gabapentin 100 mg capsule 100 mg PO BID PRN (Reason: Pain) albuterol sulfate [Ventolin HFA] 90 mcg/actuation HFA aerosol inhaler 2 puff inhalation Q6H dicyclomine 10 mg capsule 20 mg PO Q8H PRN (Reason: Pain) prazosin 2 mg capsule 2 mg PO BEDTIME Rx Instructions: TAKE WITH 5MG bupropion HCl [Wellbutrin XL] 300 mg tablet extended release 24 hr 300 mg PO DAILY budesonide-formoterol [Symbicort] 160-4.5 mcg/actuation HFA aerosol inhaler 2 puff INHALATION BID acetaminophen [Tylenol] 325 mg Tablet 650 mg PO Q6H PRN (Reason: Pain) polyethylene glycol 3350 17 gram powder in packet 17 g PO DAILY PRN (Reason: Constipation) paroxetine HCl 40 mg tablet 40 mg PO BEDTIME meloxicam 15 mg tablet 15 mg PO DAILY PRN (Reason: pain) triamcinolone acetonide 55 mcg aerosol,spray 1 spray intranasal DAILY ondansetron 4 mg tablet,disintegrating 4 mg PO Q8H PRN (Reason: nausea/vomiting) cefuroxime axetil 500 mg tablet 500 mg PO BID 7 Days Qty: 14 0RF prednisone 20 mg tablet 40 mg PO DAILY Qty: 6 0RF
[2023-04-23 10:48] LABS: INTERNATIONAL NORM RATIO 1.1 (0.9-1.1); Prothrombin Time 12.9 SEC (11.1-13.3)
[2023-04-23 10:53] LABS: Lactic Acid 0.9 mmol/L (0.5-2.0)
[2023-04-23 11:29] LABS: Venous Blood Gas Refer to POC result
[2023-04-23 11:30] LABS: VBG Base Excess 4.3 mmol/L; VBG HCO3 28 mmol/L (22-26); VBG pCO2 40 mmHg; VBG pH 7.45 (7.32-7.43); VBG pO2 122 mmHg
[2023-04-23 11:50] LABS: B Type Natriuretic Peptide < 10 pg/mL (<100)
[2023-04-23 11:56] LABS: Alanine Aminotransferase 29 U/L (0-31); Albumin Level 3.7 g/dL (3.5-5.0); Alkaline Phosphatase 78 U/L (39-117); Anion Gap 12 (12-20); Aspartate Amino Transferase 17 U/L (5-31); Bilirubin Direct 0.1 mg/dL (0.0-0.5); Bilirubin Total 0.4 mg/dL (0.0-1.0); Blood Urea Nitrogen 9 mg/dL (9-16); Carbon Dioxide 26 mmol/L (22-29); Chloride 104 mmol/L (96-108); Creatinine Clr Calc Pharmacy 112.3; Estimated Glomerular Filt Rate > 60; Glucose Random 117 mg/dL (60-115); Lipase 4 U/L (8-78); Magnesium 1.6 mg/dL (1.6-2.6); Potassium 3.9 mmol/L (3.3-5.1); Sodium 138 mmol/L (135-145); Total Protein 6.5 g/dL (6.5-8.0)
[2023-04-23 12:05] LABS: Troponin-I High Sensitivity < 2.7 ng/L (<3.5-17.0)
[2023-04-23 12:11] LABS: Procalcitonin 0.02 ng/mL
[2023-04-23 12:17] LABS: Influenza A PCR NEGATIVE (Negative); Influenza B PCR NEGATIVE (Negative); Resp Syncy Virus RNA Qual PCR NEGATIVE (Negative); SARS COV2 PCR INHOUSE NEGATIVE (Negative)
[2023-04-23] MEDS: cefEPime HCl 1 GM in 0.9 % Sodium Chloride 50 ML IV (12:33)
[2023-04-23 12:36] LABS: Appearance Urine Clear; Color Urine Yellow; Glucose Urine UA Negative (Negative); Leukocyte Esterase Urine Negative (Negative); Nitrite Urine Negative (Negative); PH 5.5 (5.0-9.0); Specific Gravity - Urine 1.025 (1.005-1.025); Urine Blood Negative (Negative); Urine Ketones Trace mg/dL (Negative); Urine Protein Negative (Neg-Trace)
--- NOTE | 2023-04-23 13:49 | P.HPHOSP_ITS ---
History of Present Illness Date of Service: 04/23/23 Attending physician on admission: Zena West Chief Complaint: shortness of breath This is a 42-year-old female with history of COPD and asthma who presents to the emergency department with shortness of breath. She reports 3 days of increasing shortness of breath with associated cough productive of yellow phlegm. Shortness of breath is worse with exertion. She denies any fever or chills. She reports that her stepson has been sick for the past several days with a sore throat and a cough. She has denies having her breathing treatments every 4 hours with no significant improvement in her symptoms. In the emergency department chest x-ray showed improving right upper lobe infiltrate, procalcitonin was low at 0.02. She had mild leukocytosis at 12.5, was afebrile. She received steroids multiple breathing treatments as well as antibiotics but continued to be dyspneic. Of note patient was recently admitted to at the beginning of March for management of COVID-19 and COPD exacerbation. She was supposed to follow-up in the [facility] pulmonology Clinic on April 12 but was unable to do so as she did not have a portable oxygen tank. She has status reached out to her oxygen supply company and they are working on a replacement tank. She reports history of intubation one one occasion about a year ago for covid and pneumonia. She will be admitted for further management of acute COPD exacerbation. Review of Systems 2 Review of Systems: Yes all other systems are reviewed and are negative Constitutional: Constitutional: Denies chills and Denies fever(s) Cardiovascular: Cardiovascular: Denies chest pain, Denies palpitations and Reports dyspnea Respiratory: Respiratory: Reports cough and Reports dyspnea Endocrine: Endocrine: Denies palpitations [facility] Medical History Chronic lung disease Lower extremity edema ILD (interstitial lung disease) Panic attack as reaction to stress Recurrent major depression Generalized anxiety disorder Morbid obesity Sinus infection Disc herniation H. pylori infection Depression Migraine Asthma Pertinent family history: diabetes - mom Surgical History History of Social History Household Members: Spouse and Children Housing: Apartment Housing Other:: 2nd fl Do you presently have visiting nurse or other home services: Yes ([facility] and [employer].) Alcohol intake: never Comment: 1:1 sitter Patient Tobacco Use Status: Former Tobacco user Quit Date: 11/14/22 Tobacco use type: Cigarette Cigarette Packs Per Day: 2 Cigarettes Per Day: 5 Smoked in Last 30 Days: No Second Hand Smoke Exposure: Yes Use of substances other than those prescribed or required for medical reasons: No Advance Directives: Yes Advance Directives on File: Yes Advance Directives Date on File: 05/12/22 service: No Current occupational status: unemployed Meds Allergies Allergy/AdvReac Type Severity Reaction Status Date / Time promethazine [From PHENERGAN] Allergy Unknown ITCHING Verified 04/23/23 10:17 egg Allergy Hives Verified 04/23/23 10:17 codeine [CODEINE] AdvReac Unknown STOMACH Verified 04/23/23 10:17 UPSET morphine [MORPHINE] AdvReac Unknown MORE PAIN Verified 04/23/23 10:17 Active Medications: Current Medications Acetaminophen (Acetaminophen 325 Mg Tablet) 650 mg PO Q6H PRN PRN Reason: Pain, Mild (Pain Scale 1-3) Albuterol/Ipratropium (Albuterol/Iprat 2.5/0.5mg 3 Ml Ampul.Neb) 3 ml INHALE RQ4H WHILE AWAKE [place] Dextrose (Dextrose 50 % 25 Gm/50 Ml Syringe) 25 gm IVPUSH Q15M PRN; Protocol PRN Reason: per Hypoglycemia Standing Ord. Enoxaparin Sodium (Enoxaparin Sodium 40 Mg/0.4 Ml Syringe) 40 mg SUBCUT Q24H [facility] Glucose (Glucose Gel 15 Gm Gel..Gram.) 15 gm PO Q15M PRN; Protocol PRN Reason: per Hypoglycemia Standing Ord. Guaifenesin/Dextromethorphan (Guaifenesin Dm 100/10/5 Ml 5 Ml Syrup) 5 ml PO Q6H PRN PRN Reason: Cough Azithromycin 500 mg/ Sodium (Chloride) 250 mls @ 125 mls/hr IV ONCE ONE Stop: 04/23/23 14:58 Insulin Human Lispro (Insulin Lispro 100 Unit/Ml 3 Ml Vial) 0 unit SUBCUT QIDACHS [facility]; Protocol Methylprednisolone Sodium Succinate (Methylprednisolone Sod Succ 40 Mg/Ml Vial) 40 mg IVPUSH Q8H [facility] Ondansetron HCl (Ondansetron Hcl 4 Mg/2 Ml Vial) 4 mg IVPUSH Q8H PRN PRN Reason: Nausea and Vomiting Sodium Chloride (0.9 % Sodium Chloride Flush 3 Ml Syringe) [facility] Medications Medication Instructions Recorded Confirmed Last Taken Type acetaminophen 325 mg tablet 650 mg PO Q6H PRN Pain 11/16/22 03/01/23 Unknown History (Tylenol) albuterol sulfate 2.5 mg/3 mL 2.5 mg inhalation Q6H PRN wheezing 11/16/22 03/01/23 Unknown History (0.083 %) solution for nebulization albuterol sulfate 90 mcg/actuation 2 puff inhalation Q6H 11/16/22 03/01/23 Unknown History aerosol inhaler (Ventolin HFA) budesonide-formoterol HFA 160 2 puff inhalation BID 11/16/22 03/01/23 11/15/22 History mcg-4.5 mcg/actuation aerosol inhaler (Symbicort) bupropion HCl 300 mg 24 hr tablet, 300 mg PO DAILY 11/16/22 03/01/23 11/15/22 History extended release (Wellbutrin XL) cyanocobalamin (vitamin B-12) 1,000 mcg sublingual DAILY 11/16/22 03/01/23 11/15/22 History 1,000 mcg sublingual tablet dicyclomine 10 mg capsule 20 mg PO Q8H PRN Pain 11/16/22 03/01/23 Unknown History gabapentin 100 mg capsule 100 mg PO BID PRN Pain 11/16/22 03/01/23 Unknown History gabapentin 400 mg capsule 800 mg PO BEDTIME 11/16/22 03/01/23 11/15/22 History hydroxyzine pamoate 50 mg capsule 100 mg PO BEDTIME PRN Anxiety 11/16/22 03/01/23 Unknown History mirtazapine 15 mg tablet 15 mg PO BEDTIME 11/16/22 03/01/23 11/15/22 History montelukast 10 mg tablet 10 mg PO BEDTIME 11/16/22 03/01/23 11/15/22 History nicotine 21 mg/24 hr daily 1 patch topical DAILY PRN Nicotine 11/16/22 03/01/23 11/15/22 History transdermal patch Cravings pantoprazole 40 mg tablet,delayed 40 mg PO DAILY@0630 11/16/22 03/01/23 11/15/22 History release paroxetine HCl 40 mg tablet 40 mg PO BEDTIME 11/16/22 03/01/23 11/15/22 History polyethylene glycol 3350 17 gram 17 g PO DAILY PRN Constipation 11/16/22 03/01/23 Unknown History oral powder packet prazosin 2 mg capsule 2 mg PO BEDTIME 11/16/22 03/01/23 11/15/22 History prazosin 5 mg capsule (Minipress) 5 mg PO BEDTIME 11/16/22 03/01/23 11/15/22 History riboflavin (vitamin B2) 100 mg 200 mg PO DAILY 11/16/22 03/01/23 11/15/22 History tablet (Vitamin B-2) sumatriptan succinate 25 mg tablet 25 mg PO DAILY PRN Migraine 11/16/22 03/01/23 Unknown History Headache bupropion HCl 150 mg 24 hr tablet, 150 mg PO DAILY 02/05/23 03/01/23 Unknown History extended release meloxicam 15 mg tablet 15 mg PO DAILY PRN pain 03/01/23 03/01/23 Unknown History ondansetron 4 mg disintegrating 4 mg PO Q8H PRN nausea/vomiting 03/01/23 03/01/23 Unknown History tablet triamcinolone acetonide 55 mcg 1 spray intranasal DAILY 03/01/23 03/01/23 Unknown History nasal spray aerosol duloxetine 20 mg capsule,delayed 20 mg PO DAILY 04/23/23 Unknown History release metformin 750 mg tablet,extended 750 mg PO BIDWM 04/23/23 Unknown History release 24 hr Physical Exam 2 Vital Signs and Narrative: Vital Signs: Last Vital Signs Temp 98.7 F 04/23/23 10:13 Pulse 109 H 04/23/23 10:32 Resp 20 04/23/23 10:32 BP 113/62 04/23/23 10:13 Pulse Ox 95 04/23/23 10:13 O2 Del Method Nasal Cannula 04/23/23 10:13 Oxygen Flow Rate 2 04/23/23 10:13 BMI result Body Mass Index 62.8 Const: Other: intermittently tearful General: alert and awake Nutritional Appearance: obese O rientation/consciousness: patient oriented x3 Resp: Other: gets short of breath after few sentences diffuse expiratory wheezing Effort & Inspection: no use of accessory muscles Cardio: Rate: tachycardic GI: Inspection: No distended and Yes obesity Palpation (GI): Soft to palpation and nontender Neuro: General: patient oriented x3, moves all extremities and CN's II-XI intact bilaterally Extrem: Other: trace edema R>L LE Results Labs 04/23/23 10:31 04/23/23 11:19 Labs: Laboratory Results - last 24 hr 04/23/23 04/23/23 04/23/23 10:31 10:32 11:19 MCV 81.5 MCH 25.1 L MCHC 30.7 L RDW 16.1 H Plt Count 316 MPV 9.6 Immature Gran % (Auto) 0.4 Neut % (Auto) 64.2 Lymph % (Auto) 17.1 L [place] % (Auto) 8.5 Eos % (Auto) 9.2 H Baso % (Auto) 0.6 Lymph # (Auto) 2.1 [place] # (Auto) 1.1 Eos # (Auto) 1.2 H Baso # (Auto) 0.1 Abs Immat Gran (auto) 0.05 H Absolute Neuts (auto) 8.1 Absolute Nucleated RBC 0.000 Nucleated RBC % (auto) 0.0 PT 12.9 INR 1.1 VBG pH VBG pCO2 VBG pO2 VBG HCO3 VBG O2 Saturation VBG Base Excess Anion Gap 12 Estim Creat Clear Calc 112.3 Estimated GFR > 60 Random Glucose 117 H Lactic Acid 0.9 Calcium 9.0 Magnesium 1.6 Total Bilirubin 0.4 Direct Bilirubin 0.1 AST 17 ALT 29 Alkaline Phosphatase 78 B-Natriuretic Peptide < 10 Total Protein 6.5 Albumin 3.7 Lipase 4 L Procalcitonin 0.02 Urine Color Urine Appearance Urine pH Ur Specific [place] Urine Protein Urine Glucose (UA) Urine Ketones Urine Blood Urine Nitrite Ur Leukocyte Esterase Influenza Type A (PCR) NEGATIVE Influenza Type B (PCR) NEGATIVE RSV RNA Qual (PCR) NEGATIVE SARS-CoV-2 RNA (RT-PCR) NEGATIVE 04/23/23 04/23/23 11:23 12:29 MCV MCH MCHC RDW Plt Count MPV Immature Gran % (Auto) Neut % (Auto) Lymph % (Auto) [place] % (Auto) Eos % (Auto) Baso % (Auto) Lymph # (Auto) [place] # (Auto) Eos # (Auto) Baso # (Auto) Abs Immat Gran (auto) Absolute Neuts (auto) Absolute Nucleated RBC Nucleated RBC % (auto) PT INR VBG pH 7.45 H VBG pCO2 40 VBG pO2 122 VBG HCO3 28 H VBG O2 Saturation 100.0 VBG Base Excess 4.3 Anion Gap Estim Creat Clear Calc Estimated GFR Random Glucose Lactic Acid Calcium Magnesium Total Bilirubin Direct Bilirubin AST ALT Alkaline Phosphatase B-Natriuretic Peptide Total Protein Albumin Lipase Procalcitonin Urine Color Yellow Urine Appearance Clear Urine pH 5.5 Ur Specific [place] 1.025 Urine Protein Negative Urine Glucose (UA) Negative Urine Ketones Trace Urine Blood Negative Urine Nitrite Negative Ur Leukocyte Esterase Negative Influenza Type A (PCR) Influenza Type B (PCR) RSV RNA Qual (PCR) SARS-CoV-2 RNA (RT-PCR) Imaging Radiologist's Impressions: Impressions Chest X-Ray 04/23/23 11:24 IMPRESSION: 1. Low lung volumes. 2. Improvement in right upper lobe infiltrate with a residual amount reidentified. 3. Bronchial wall thickening. 4. Perihilar opacities. Assessment and Plan (1) Acute exacerbation of chronic obstructive airways disease: Status: Acute Plan This is a 42-year-old Belarusian-speaking female with history of chronic respiratory failure due to multiple reasons including asthma, COVID related interstitial lung disease, diabetes, anxiety/depression, migraines who presents to the emergency department with shortness of breath Acute on chronic respiratory failure with hypoxia chronic respiratory failure is multifactorial due to copd, ILD due to COVID and likely obesity hypoventilation Secondary to acute COPD exacerbation Recent treatment for COVID-19 at [facility] from March 29 to April 02 Today tested negative for COVID-19, flu, RSV CXR with improving RUL infilatrate and procalcitonin low - no pneumonia, but does report cough productive of yellow phlegm - will treat with azithromycin for COPD exacerbation -IV solumedrol -scheduled and prn breathing treatments -full RPP pending -continue supplemental o2, 3L NC at baseline DM SSI, POCs, ADA diet mood continue home meds when med rec complete morbid obesity BMI 62.8 contributing to respiratory issues weight loss encouraged med rec pending at the time of admission DVT prophylaxis-Lovenox Code status-full code Attending-Dr. West Patient likely requires 2 midnight stay in the hospital due to acute on chronic respiratory failure requiring close monitoring of respiratory status and high risk for decompensation Quality Stroke Does the patient have a stroke diagnosis?: No VTE Prior VTE?: No VTE Risk Level:: Medical - moderate - high VTE Device Contraindication: N/A - Device Ordered VTE Drug Contraindication: N/A - Med Ordered
--- NOTE | 2023-04-23 14:52 | PHA.MEDREC ---
Pharmacy Consult ? Medication Reconciliation Pharmacy has completed the medication reconciliation. list obtained from home nurse
[2023-04-23] MEDS: Enoxaparin Sodium 40 MG/0.4 ML SYRINGE SUBCUT (15:15)
[2023-04-23] MEDS: Albuterol/Iprat 2.5/0.5MG 3 ML AMPUL.NEB INHALE ×2 (15:34→21:25)
[2023-04-23] MEDS: Acetaminophen 325 MG TABLET 650 MG PO (16:11)
[2023-04-23] MEDS: 0.9 % Sodium Chloride Flush 3 ML SYRINGE IVFLUSH ×2 (16:17→22:07)
--- NOTE | 2023-04-23 16:35 | PC.NURSE ---
pt received tect message from family stating thaat her significant other has packed up his belongings and moved to [place]. pt is hysterical. pt was medicated with [id number] by Omar Rollins. encouraged pt to breathe slowly, continues to be tearful.
[2023-04-23] MEDS: Ketorolac Tromethamine 15 MG/ML VIAL IVPUSH (16:36)
--- NOTE | 2023-04-23 16:46 | PC.NURSE ---
pt HCp Crystal can be reached via telephone [phone]
[2023-04-23 17:24] LABS: Glucose, Whole Blood 168 mg/dL (60-115)
[2023-04-23] MEDS: Insulin Lispro 100 UNIT/ML 3 ML VIAL SUBCUT (18:21)
[2023-04-23] MEDS: methylPREDNISolone Sod Succ 40 MG/ML VIAL IVPUSH (18:21)
[2023-04-23 20:41] LABS: Glucose, Whole Blood 140 mg/dL (60-115)
[2023-04-23] MEDS: Prazosin HCL 5 MG CAPSULE PO (22:05)
[2023-04-23] MEDS: Gabapentin 400 MG CAPSULE 800 MG PO (22:05)
[2023-04-23] MEDS: Mirtazapine 15 MG TABLET PO (22:06)
[2023-04-23] MEDS: PARoxetine HCL 20 MG TABLET PO (22:06)
[2023-04-23] MEDS: hydrOXYzine HCL 50 MG TABLET PO (22:06)
[2023-04-23] MEDS: Prazosin HCL 1 MG CAPSULE 2 MG PO (22:06)
[2023-04-24] VITALS (10 sets, daily range): BP systolic 121–164; BP diastolic 66–89; PULSE 93–118; RESP 18–22; TEMP 36–36.7; O2SAT 94–97
[2023-04-24] MEDS: Acetaminophen 325 MG TABLET 650 MG PO ×2 (03:36→17:12)
[2023-04-24] MEDS: methylPREDNISolone Sod Succ 40 MG/ML VIAL IVPUSH ×3 (03:39→22:36)
[2023-04-24] MEDS: LORazepam 0.5 MG TABLET PO ×2 (03:40→22:36)
[2023-04-24] MEDS: Omeprazole 20 MG CAPSULE.DR PO ×2 (05:39→16:40)
[2023-04-24 06:35] LABS: Hematocrit 33.4 % (37.0-47.0); Hemoglobin 10.5 g/dl (12.0-16.0); Mean Corpuscular HGB Conc 31.4 g/dl (31.0-35.0); Mean Corpuscular Hemoglobin 25.2 pg (27.0-33.0); Mean Corpuscular Volume 80.1 fL (80.0-98.0); Mean Platelet Volume 10.1 fL (9.4-12.3); Platelet Count 316 X10*3/uL (160-400); Red Blood Count 4.17 X10*6/uL (4.20-5.50); Red Cell Distribution Width 16.2 % (11.0-16.0); White Blood Count 12.5 X10*3/uL (4.8-10.8)
[2023-04-24 06:37] LABS: Anion Gap 15 (12-20); Blood Urea Nitrogen 8 mg/dL (9-16); Calcium 9.4 mg/dL (8.4-10.2); Carbon Dioxide 26 mmol/L (22-29); Chloride 106 mmol/L (96-108); Creatinine Clr Calc Pharmacy 118.7; Estimated Glomerular Filt Rate > 60; Glucose Random 135 mg/dL (60-115); Potassium 4.6 mmol/L (3.3-5.1); Sodium 142 mmol/L (135-145)
[2023-04-24] MEDS: hydrOXYzine HCL 50 MG TABLET PO ×2 (06:55→12:28)
[2023-04-24 07:26] LABS: Glucose, Whole Blood 133 mg/dL (60-115)
[2023-04-24] MEDS: Albuterol/Iprat 2.5/0.5MG 3 ML AMPUL.NEB INHALE ×4 (08:21→18:56)
[2023-04-24 09:02] LABS: Adenovirus PCR Not Detected (Not Detect.); Bordetella parapertussis PCR Not Detected (Not Detect.); Bordetella pertussis PCR Not Detected (Not Detect.); Chlamydia pneumoniae PCR Not Detected (Not Detect.); Coronavirus 229E PCR Not Detected (Not Detect.); Coronavirus HKU1 PCR Not Detected (Not Detect.); Coronavirus NL63 PCR Not Detected (Not Detect.); Coronavirus OC43 PCR Not Detected (Not Detect.); Human metapneumovirus PCR Not Detected (Not Detect.); Influenza A PCR Not Detected (Not Detect.); Influenza B PCR Not Detected (Not Detect.); Mycoplasma pneumoniae PCR Not Detected (Not Detect.); Parainfluenza 1 PCR Not Detected (Not Detect.); Parainfluenza 2 PCR Not Detected (Not Detect.); Parainfluenza 3 PCR Not Detected (Not Detect.); Parainfluenza 4 PCR Not Detected (Not Detect.); RSV PCR Not Detected (Not Detect.); Rhino/Enterovirus PCR Not Detected (Not Detect.); SARS-CoV-2 PCR Not Detected (Not Detect.)
[2023-04-24] MEDS: DULoxetine HCl 20 MG CAPSULE.DR PO (10:03)
[2023-04-24] MEDS: buPROPion HCl XL 300 MG TAB.ER.24H PO (10:03)
[2023-04-24] MEDS: 0.9 % Sodium Chloride Flush 3 ML SYRINGE IVFLUSH ×3 (10:04→20:39)
--- NOTE | 2023-04-24 10:25 | PC.NURSE ---
Patient sTATES THAT SHE HAS Anxiety, relative explained to previus nurse the anxiety is due boyfriend leaving recently.
[2023-04-24 11:04] LABS: Glucose, Whole Blood 136 mg/dL (60-115)
--- NOTE | 2023-04-24 12:09 | P.PNIM_ITS ---
Subjective Subjective Date of Service: 04/24/23 Interval History: Seen and examined this morning Follow-up for respiratory failure due to COPD exacerbation Patient upset about social issues, crying but overall respiratory status seems to be improving No shortness of breath but persistent wheezing. Has not been ambulating Review of Systems Review of Systems: Yes all other systems are reviewed and are negative Constitutional Constitutional: Denies chills and Denies fever(s) Cardiovascular Cardiovascular: Denies chest pain and Denies palpitations Endocrine Endocrine: Denies palpitations Physical Exam 2 Vital Signs: Vital Signs: Last Vital Signs Temp 98.0 F 04/24/23 11:02 Pulse 102 H 04/24/23 11:24 Resp 18 04/24/23 11:24 BP 164/89 H 04/24/23 11:02 Pulse Ox 96 04/24/23 11:02 O2 Del Method Nasal Cannula 04/24/23 11:02 O2 Flow Rate 2 04/24/23 11:02 Oxygen Flow Rate 2 04/23/23 10:13 BMI result Body Mass Index 62.8 Const: Other: intermittently tearful General: alert and awake Nutritional Appearance: obese O rientation/consciousness: patient oriented x3 Resp: Effort & Inspection: no use of accessory muscles Cardio: Rate: tachycardic GI: Inspection: No distended and Yes obesity Palpation (GI): Soft to palpation and nontender Neuro: General: patient oriented x3, moves all extremities and CN's II-XI intact bilaterally Extrem: Other: trace edema R>L LE Objective Data Active Medications Acetaminophen (Acetaminophen 325 Mg Tablet) 650 mg PO Q6H PRN PRN Reason: Pain, Mild (Pain Scale 1-3) Last Admin: 04/24/23 03:36 Dose: 650 mg Documented By: JAI Albuterol/Ipratropium (Albuterol/Iprat 2.5/0.5mg 3 Ml Ampul.Neb) 3 ml INHALE RQ4H WHILE AWAKE [facility] Last Admin: 04/24/23 11:23 Dose: 3 ml Documented By: YARELI Bupropion HCl (Bupropion Hcl Xl 300 Mg Tab.Er.24h) 300 mg PO DAILY [facility] Last Admin: 04/24/23 10:03 Dose: 300 mg Documented By: JULIANNE Dextrose (Dextrose 50 % 25 Gm/50 Ml Syringe) 25 gm IVPUSH Q15M PRN; Protocol PRN Reason: per Hypoglycemia Standing Ord. Duloxetine HCl (Duloxetine Hcl 20 Mg Capsule.) 20 mg PO DAILY [facility] Last Admin: 04/24/23 10:03 Dose: 20 mg Documented By: JULIANNE Enoxaparin Sodium (Enoxaparin Sodium 40 Mg/0.4 Ml Syringe) 40 mg SUBCUT Q24H [facility] Last Admin: 04/23/23 15:15 Dose: 40 mg Documented By: NICOLE Gabapentin (Gabapentin 400 Mg Capsule) 800 mg PO BEDTIME [facility] Last Admin: 04/23/23 22:05 Dose: 800 mg Documented By: JAI Glucose (Glucose Gel 15 Gm Gel..Gram.) 15 gm PO Q15M PRN; Protocol PRN Reason: per Hypoglycemia Standing Ord. Guaifenesin/Dextromethorphan (Guaifenesin Dm 100/10/5 Ml 5 Ml Syrup) 5 ml PO Q6H PRN PRN Reason: Cough Hydroxyzine HCl (Hydroxyzine Hcl 50 Mg Tablet) 50 mg PO QID PRN PRN Reason: Anxiety Last Admin: 04/24/23 06:55 Dose: 50 mg Documented By: JAI Azithromycin 500 mg/ Sodium (Chloride) 250 mls @ 125 mls/hr IV Q24H [facility] Insulin Human Lispro (Insulin Lispro 100 Unit/Ml 3 Ml Vial) 0 unit SUBCUT QIDACHS [facility]; Protocol Last Admin: 04/24/23 10:04 Dose: Not Given Documented By: JULIANNE Non-Admin Reason: No Insulin Coverage Methylprednisolone Sodium Succinate (Methylprednisolone Sod Succ 40 Mg/Ml Vial) 40 mg IVPUSH Q8H [facility] Last Admin: 04/24/23 10:04 Dose: 40 mg Documented By: JULIANNE Mirtazapine (Mirtazapine 15 Mg Tablet) 15 mg PO BEDTIME [facility] Last Admin: 04/23/23 22:06 Dose: 15 mg Documented By: JAI Nicotine Polacrilex (Nicotine Polacrilex Lozenge 4 Mg Lozenge) 4 mg BUCCAL Q2H PRN PRN Reason: Nicotine Cravings Omeprazole (Omeprazole 20 Mg Capsule.) 20 mg PO BID@0630,1630 [facility] Last Admin: 04/24/23 05:39 Dose: 20 mg Documented By: JAI Ondansetron HCl (Ondansetron Hcl 4 Mg/2 Ml Vial) 4 mg IVPUSH Q8H PRN PRN Reason: Nausea and Vomiting Paroxetine HCl (Paroxetine Hcl 20 Mg Tablet) 20 mg PO BEDTIME [facility] Last Admin: 04/23/23 22:06 Dose: 20 mg Documented By: JAI Polyethylene Glycol (Polyethylene Glycol 3350 17 Gm Powd.Pack) 17 gm PO DAILY PRN PRN Reason: Constipation Prazosin HCl (Prazosin Hcl 5 Mg Capsule) 5 mg PO BEDTIME [facility]; Protocol Last Admin: 04/23/23 22:05 Dose: 5 mg Documented By: JAI Prazosin HCl (Prazosin Hcl 1 Mg Capsule) 2 mg PO BEDTIME [facility]; Protocol Last Admin: 04/23/23 22:06 Dose: 2 mg Documented By: JAI Sodium Chloride (0.9 % Sodium Chloride Flush 3 Ml Syringe) 3 ml IVFLUSH QSHIFT [facility] Last Admin: 04/24/23 10:04 Dose: 3 ml Documented By: JULIANNE Labs 04/24/23 05:55 04/24/23 05:55 Labs: Laboratory Results - last 24 hr 04/23/23 04/23/23 04/23/23 11:19 12:29 15:00 MCV MCH MCHC RDW Plt Count MPV Absolute Nucleated RBC Nucleated RBC % (auto) Anion Gap Estim Creat Clear Calc Estimated GFR POC Glucose Random Glucose Calcium Procalcitonin 0.02 Urine Color Yellow Urine Appearance Clear Urine pH 5.5 Ur Specific [place] 1.025 Urine Protein Negative Urine Glucose (UA) Negative Urine Ketones Trace Urine Blood Negative Urine Nitrite Negative Ur Leukocyte Esterase Negative Respiratory Panel [place] See Note Adenovirus (Rapid PCR) Not Detected B.pert (TEM-PCR) Not Detected B.parapertussis DNA PCR Not Detected C. pneumoniae DNA (PCR) Not Detected Coronavirus OC43 (PCR) Not Detected Coronavirus HKU1 (PCR) Not Detected Coronavirus 229E (PCR) Not Detected Coronavirus NL63 (PCR) Not Detected Human Metapneumovir PCR Not Detected Influenza A (RT-PCR) Not Detected Influenza Type A (PCR) NEGATIVE Influenza B (RT-PCR) Not Detected Influenza Type B (PCR) NEGATIVE M. pneumoniae (PCR) Not Detected Parainfluenza 1 (PCR) Not Detected Parainfluenza 2 (PCR) Not Detected Parainfluenza 3 (PCR) Not Detected Parainfluenza 4 (PCR) Not Detected RSV (PCR) Not Detected RSV RNA Qual (PCR) NEGATIVE Entero/Rhino (PCR) Not Detected SARS-CoV-2 RNA (RT-PCR) NEGATIVE Not Detected 04/23/23 04/23/23 04/24/23 17:21 20:24 05:55 MCV 80.1 MCH 25.2 L MCHC 31.4 RDW 16.2 H Plt Count 316 MPV 10.1 Absolute Nucleated RBC 0.000 Nucleated RBC % (auto) 0.0 Anion Gap 15 Estim Creat Clear Calc 118.7 Estimated GFR > 60 POC Glucose 168 H 140 H Random Glucose 135 H Calcium 9.4 Procalcitonin Urine Color Urine Appearance Urine pH Ur Specific [place] Urine Protein Urine Glucose (UA) Urine Ketones Urine Blood Urine Nitrite Ur Leukocyte Esterase Respiratory Panel [place] Adenovirus (Rapid PCR) B.pert (TEM-PCR) B.parapertussis DNA PCR C. pneumoniae DNA (PCR) Coronavirus OC43 (PCR) Coronavirus HKU1 (PCR) Coronavirus 229E (PCR) Coronavirus NL63 (PCR) Human Metapneumovir PCR Influenza A (RT-PCR) Influenza Type A (PCR) Influenza B (RT-PCR) Influenza Type B (PCR) M. pneumoniae (PCR) Parainfluenza 1 (PCR) Parainfluenza 2 (PCR) Parainfluenza 3 (PCR) Parainfluenza 4 (PCR) RSV (PCR) RSV RNA Qual (PCR) Entero/Rhino (PCR) SARS-CoV-2 RNA (RT-PCR) 04/24/23 04/24/23 07:06 10:50 MCV MCH MCHC RDW Plt Count MPV Absolute Nucleated RBC Nucleated RBC % (auto) Anion Gap Estim Creat Clear Calc Estimated GFR POC Glucose 133 H 136 H Random Glucose Calcium Procalcitonin Urine Color Urine Appearance Urine pH Ur Specific [place] Urine Protein Urine Glucose (UA) Urine Ketones Urine Blood Urine Nitrite Ur Leukocyte Esterase Respiratory Panel [place] Adenovirus (Rapid PCR) B.pert (TEM-PCR) B.parapertussis DNA PCR C. pneumoniae DNA (PCR) Coronavirus OC43 (PCR) Coronavirus HKU1 (PCR) Coronavirus 229E (PCR) Coronavirus NL63 (PCR) Human Metapneumovir PCR Influenza A (RT-PCR) Influenza Type A (PCR) Influenza B (RT-PCR) Influenza Type B (PCR) M. pneumoniae (PCR) Parainfluenza 1 (PCR) Parainfluenza 2 (PCR) Parainfluenza 3 (PCR) Parainfluenza 4 (PCR) RSV (PCR) RSV RNA Qual (PCR) Entero/Rhino (PCR) SARS-CoV-2 RNA (RT-PCR) Assessment and Plan (1) Acute exacerbation of chronic obstructive airways disease: Status: Acute Plan This is a 42-year-old Persian-speaking female with history of chronic respiratory failure due to multiple reasons including asthma, COVID related interstitial lung disease, diabetes, anxiety/depression, migraines who presents to the emergency department with shortness of breath Acute on chronic respiratory failure with hypoxia Secondary to acute COPD exacerbation. improving no sepsis chronic respiratory failure is multifactorial due to copd, ILD due to COVID and likely obesity hypoventilation Recent treatment for COVID-19 at [facility] from March 29 to April 02 Full RPP negative CXR with improving RUL infilatrate and procalcitonin low - no pneumonia, but does report cough productive of yellow phlegm - will treat with azithromycin for COPD exacerbation -continue IV solumedrol, will start to wean -scheduled and prn breathing treatments -continue supplemental o2, 3L NC at baseline -Blood cultures pending DM BS under adequate control SSI, POCs, ADA diet mood continue home meds morbid obesity BMI 62.8 contributing to respiratory issues weight loss encouraged med rec pending at the time of admission DVT prophylaxis-Lovenox Code status-full code Attending-Dr. West Patient likely requires 2 midnight stay in the hospital due to acute on chronic respiratory failure requiring close monitoring of respiratory status and high risk for decompensation Quality Stroke Does the patient have a stroke diagnosis?: No VTE Prior VTE?: No VTE Risk Level:: Medical - moderate - high VTE Device Contraindication: N/A - Device Ordered VTE Drug Contraindication: N/A - Med Ordered
--- NOTE | 2023-04-24 15:37 | MHC.CM.PN ---
MET WITH PATIENT AT BEDSIDE, HCP ON FACETIME AND AIRPLANE PATROL PILOT ASSISTING. VERBAL CONSENT FROM PATIENT TO SPEAK IN FRONT OF HCP. PATIENT REPORTS SHE LIVES AT HOME W/ HER , BUT WILL SOON BE LIVING ALONE. 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 AMBULATES W/ A WHEELED WALKER. 3L HOME O2 VIA [facility]. PCP: DR MYRICK AT [facility] HCP: FRIEND NIMISHA, ON FILE AND VERIFIED. DP: PATIENT AND HCP ARE REQUETING PT EVAL, WOULD LIKE VNA AND ARE CONSIDERING SNF IF INDICATED. HOME W/ NEW VNA VIA FATHER IN LAW TRANSPORT VS. STR VIA BLS. CM WILL CONTINUE TO FOLLOW FOR DC NEEDS.
[2023-04-24 16:26] LABS: Glucose, Whole Blood 140 mg/dL (60-115)
[2023-04-24] MEDS: Enoxaparin Sodium 40 MG/0.4 ML SYRINGE SUBCUT (16:40)
[2023-04-24] MEDS: Azithromycin 500 MG in 0.9 % Sodium Chloride 250 ML 125 MG IV (16:40)
[2023-04-24] MEDS: Prazosin HCL 5 MG CAPSULE PO (20:36)
[2023-04-24] MEDS: Prazosin HCL 1 MG CAPSULE 2 MG PO (20:36)
[2023-04-24] MEDS: PARoxetine HCL 20 MG TABLET PO (20:37)
[2023-04-24] MEDS: Mirtazapine 15 MG TABLET PO (20:37)
[2023-04-24] MEDS: Gabapentin 400 MG CAPSULE 800 MG PO (20:37)
[2023-04-24] MEDS: SUMAtriptan succinate 25 MG TABLET PO (20:38)
[2023-04-24 21:06] LABS: Glucose, Whole Blood 121 mg/dL (60-115)
[2023-04-25] VITALS (11 sets, daily range): BP systolic 131–158; BP diastolic 65–93; PULSE 91–109; RESP 16–20; TEMP 36.6–37.1; O2SAT 94–100
[2023-04-25] MEDS: Omeprazole 20 MG CAPSULE.DR PO ×2 (04:06→15:24)
[2023-04-25] MEDS: LORazepam 1 MG TABLET PO (04:06)
[2023-04-25] MEDS: Albuterol Sulfate (0.083%) 2.5 MG/3 ML VIAL.NEB INHALE (04:48)
[2023-04-25 07:42] LABS: Glucose, Whole Blood 130 mg/dL (60-115)
[2023-04-25] MEDS: DULoxetine HCl 20 MG CAPSULE.DR PO (08:13)
[2023-04-25] MEDS: 0.9 % Sodium Chloride Flush 3 ML SYRINGE IVFLUSH ×2 (08:13→15:25)
[2023-04-25] MEDS: buPROPion HCl XL 300 MG TAB.ER.24H PO (08:13)
[2023-04-25] MEDS: Albuterol/Iprat 2.5/0.5MG 3 ML AMPUL.NEB INHALE ×4 (08:37→19:35)
[2023-04-25] MEDS: methylPREDNISolone Sod Succ 40 MG/ML VIAL IVPUSH (09:03)
[2023-04-25 11:37] LABS: Glucose, Whole Blood 129 mg/dL (60-115)
--- NOTE | 2023-04-25 14:19 | HO.PM.IMPN ---
Subjective Subjective Date of Service: 04/25/23 Interval History: F/u on acute respiratory failure d/t asthma/copd overlap syndrome Feels better Physical Exam Vital Signs: Vital Signs: Last Vital Signs Temp 98.5 F 04/25/23 11:11 Pulse 98 04/25/23 12:29 Resp 20 04/25/23 12:29 BP 152/87 H 04/25/23 11:11 Pulse Ox 94 04/25/23 11:11 O2 Del Method Nasal Cannula 04/25/23 11:11 O2 Flow Rate 2 04/25/23 11:11 Oxygen Flow Rate 2 04/23/23 10:13 BMI result Body Mass Index 62.8 Objective Data Active Medications Acetaminophen (Acetaminophen 325 Mg Tablet) 650 mg PO Q6H PRN PRN Reason: Pain, Mild (Pain Scale 1-3) Last Admin: 04/24/23 17:12 Dose: 650 mg Documented By: CIERRA Albuterol Sulfate (Albuterol Sulfate (0.083%) 2.5 Mg/3 Ml Vial.Neb) 2.5 mg INHALE Q4H PRN PRN Reason: Shortness of Breath/Wheezing Last Admin: 04/25/23 04:48 Dose: 2.5 mg Documented By: TAWNY Albuterol/Ipratropium (Albuterol/Iprat 2.5/0.5mg 3 Ml Ampul.Neb) 3 ml INHALE RQ4H WHILE AWAKE [facility] Last Admin: 04/25/23 12:28 Dose: 3 ml Documented By: EMILEE Bupropion HCl (Bupropion Hcl Xl 300 Mg Tab.Er.24h) 300 mg PO DAILY [facility] Last Admin: 04/25/23 08:13 Dose: 300 mg Documented By: CIERRA Dextrose (Dextrose 50 % 25 Gm/50 Ml Syringe) 25 gm IVPUSH Q15M PRN; Protocol PRN Reason: per Hypoglycemia Standing Ord. Duloxetine HCl (Duloxetine Hcl 20 Mg Capsule.) 20 mg PO DAILY [facility] Last Admin: 04/25/23 08:13 Dose: 20 mg Documented By: CIERRA Enoxaparin Sodium (Enoxaparin Sodium 40 Mg/0.4 Ml Syringe) 40 mg SUBCUT Q24H [facility] Last Admin: 04/24/23 16:40 Dose: 40 mg Documented By: CIERRA Gabapentin (Gabapentin 400 Mg Capsule) 800 mg PO BEDTIME [facility] Last Admin: 04/24/23 20:37 Dose: 800 mg Documented By: DENTON Glucose (Glucose Gel 15 Gm Gel..Gram.) 15 gm PO Q15M PRN; Protocol PRN Reason: per Hypoglycemia Standing Ord. Guaifenesin/Dextromethorphan (Guaifenesin Dm 100/10/5 Ml 5 Ml Syrup) 5 ml PO Q6H PRN PRN Reason: Cough Hydroxyzine HCl (Hydroxyzine Hcl 50 Mg Tablet) 50 mg PO QID PRN PRN Reason: Anxiety Last Admin: 04/24/23 12:28 Dose: 50 mg Azithromycin 500 mg/ Sodium (Chloride) 250 mls @ 125 mls/hr IV Q24H [facility] Last Infusion: 04/24/23 18:40 Dose: Infused Documented By: CIERRA Insulin Human Lispro (Insulin Lispro 100 Unit/Ml 3 Ml Vial) 0 unit SUBCUT QIDACHS [facility]; Protocol Last Admin: 04/25/23 11:41 Dose: Not Given Documented By: CIERRA Non-Admin Reason: poc= 129 Methylprednisolone Sodium Succinate (Methylprednisolone Sod Succ 40 Mg/Ml Vial) 40 mg IVPUSH Q12H [facility] Last Admin: 04/25/23 09:03 Dose: 40 mg Documented By: CIERRA Mirtazapine (Mirtazapine 15 Mg Tablet) 15 mg PO BEDTIME [facility] Last Admin: 04/24/23 20:37 Dose: 15 mg Documented By: DENTON Nicotine Polacrilex (Nicotine Polacrilex Lozenge 4 Mg Lozenge) 4 mg BUCCAL Q2H PRN PRN Reason: Nicotine Cravings Omeprazole (Omeprazole 20 Mg Capsule.) 20 mg PO BID@0630,1630 [facility] Last Admin: 04/25/23 04:06 Dose: 20 mg Documented By: DENTON Ondansetron HCl (Ondansetron Hcl 4 Mg/2 Ml Vial) 4 mg IVPUSH Q8H PRN PRN Reason: Nausea and Vomiting Paroxetine HCl (Paroxetine Hcl 20 Mg Tablet) 20 mg PO BEDTIME [facility] Last Admin: 04/24/23 20:37 Dose: 20 mg Documented By: DENTON Polyethylene Glycol (Polyethylene Glycol 3350 17 Gm Powd.Pack) 17 gm PO DAILY PRN PRN Reason: Constipation Prazosin HCl (Prazosin Hcl 5 Mg Capsule) 5 mg PO BEDTIME KRYSTLE; Protocol Last Admin: 04/24/23 20:36 Dose: 5 mg Documented By: DENTON Prazosin HCl (Prazosin Hcl 1 Mg Capsule) 2 mg PO BEDTIME KRYSTLE; Protocol Last Admin: 04/24/23 20:36 Dose: 2 mg Documented By: DENTON Sodium Chloride (0.9 % Sodium Chloride Flush 3 Ml Syringe) 3 ml IVFLUSH QSHIFT KRYSTLE Last Admin: 04/25/23 08:13 Dose: 3 ml Documented By: CIERRA Sumatriptan Succinate (Sumatriptan Succinate 25 Mg Tablet) 25 mg PO DAILY PRN PRN Reason: Migraine Headache Last Admin: 04/24/23 20:38 Dose: 25 mg Documented By: DENTON Labs 04/24/23 05:55 04/24/23 05:55 Labs: Laboratory Results - last 24 hr 04/24/23 04/24/23 04/25/23 16:12 20:54 07:33 POC Glucose 140 H 121 H 130 H 04/25/23 11:12 POC Glucose 129 H Microbiology Microbiology Results: Microbiology 04/23/23 11:19 Blood Culture - Preliminary Blood - Venous No growth after 48 hours. 04/23/23 10:32 Blood Culture - Preliminary Blood - Venous No growth after 48 hours. Assessment and Plan (1) Acute exacerbation of chronic obstructive airways disease: Status: Acute Plan This is a 42-year-old Wallisian-speaking female with history of chronic respiratory failure due to multiple reasons including asthma, COVID related interstitial lung disease, diabetes, anxiety/depression, migraines who presents to the emergency department with shortness of breath Acute on chronic respiratory failure with hypoxia Secondary to acute COPD exacerbation. improving no sepsis chronic respiratory failure is multifactorial due to copd, ILD due to COVID and likely obesity hypoventilation Recent treatment for COVID-19 at [facility] from March 29 to April 02 Full RPP negative CXR with improving RUL infilatrate and procalcitonin low - no pneumonia, but does report cough productive of yellow phlegm - continue azithromycin for COPD exacerbation -change Solumedrol to Prednisone -scheduled and prn breathing treatments -continue supplemental o2, 3L NC at baseline -Blood cultures pending DM BS under adequate control SSI, POCs, ADA diet mood, depression, with ? SI, reportedly because her left her, CARE consult continue home meds morbid obesity BMI 62.8 contributing to respiratory issues weight loss encouraged med rec pending at the time of admission DVT prophylaxis-Lovenox Code status-full code Attending-Dr. West Patient likely requires 2 midnight stay in the hospital due to acute on chronic respiratory failure requiring close monitoring of respiratory status and high risk for decompensation Quality Stroke Does the patient have a stroke diagnosis?: No VTE Prior VTE?: No VTE Risk Level:: Medical - moderate - high VTE Device Contraindication: N/A - Device Ordered VTE Drug Contraindication: N/A - Med Ordered
--- NOTE | 2023-04-25 14:23 | PC.NURSE ---
1032- Notified Dr. Vargas that pt is quite upset (having relationship issues- I guess her left her) having intermittent panic attacks and crying etc/ very depressed and anxious. Pt on Paxil, Wellbutrin, Cymbalta- pt received Ativan po overnight for panic attack, this am pt seemed to be off or possibly with some hallucinations (stated there is a big spider on the curtain). She has been speaking with her women's health care nurse practitioner on the phone and seemingly having escalated emotions and the women's health care nurse practitioner states she believes pt has suicidal thoughts and the pt lives at home alone. Pt is getting anxious and talking about wanting to leave to try to track her down but he left to [place]. Asked Dr. Vargas if pt should have a psych consult/ sitter for SI. Dr. Vargas ordered a sitter and CARE Team consult.
[2023-04-25] MEDS: Azithromycin 500 MG TABLET PO (15:24)
[2023-04-25] MEDS: Enoxaparin Sodium 40 MG/0.4 ML SYRINGE SUBCUT (15:24)
--- NOTE | 2023-04-25 15:52 | PM.DS ---
DS: Providers Provider Date of Service: 04/26/23 Date of admission: 04/23/23 13:43 Primary care physician: Unknown Physician Consults: 04/25/23 10:32 Consult to Care Team Routine Comment: Reason for consultation: Crisis, ? SI, o/w ready to be discharged 04/25/23 10:42 Consult for Sitter Routine Reason for consultation: SI Has provider been notified: No DS: Diagnosis Discharge Diagnosis (1) Acute exacerbation of chronic obstructive airways disease: Status: Acute DS: Summary Hospital Course Hospital Course: Admitting HPI Chief Complaint: shortness of breath This is a 42-year-old female with history of COPD and asthma who presents to the emergency department with shortness of breath. She reports 3 days of increasing shortness of breath with associated cough productive of yellow phlegm. Shortness of breath is worse with exertion. She denies any fever or chills. She reports that her stepson has been sick for the past several days with a sore throat and a cough. She has denies having her breathing treatments every 4 hours with no significant improvement in her symptoms. In the emergency department chest x-ray showed improving right upper lobe infiltrate, procalcitonin was low at 0.02. She had mild leukocytosis at 12.5, was afebrile. She received steroids multiple breathing treatments as well as antibiotics but continued to be dyspneic. Of note patient was recently admitted to [facility] at the beginning of March for management of COVID-19 and COPD exacerbation. She was supposed to follow-up in the [facility] pul[facility]ology Clinic on April 12 but was unable to do so as she did not have a portable oxygen tank. She has status reached out to her oxygen supply company and they are working on a replacement tank. She reports history of intubation one one occasion about a year ago for covid and pneumonia. She will be admitted for further management of acute COPD exacerbation. Hospital course: The patient was treated with IV steroids and bronchodilators via Neb and has experienced a rapid recovery from COPD/asthma exacerbation. They will transition to oral steroids for a total of 5 days. Additionally, she was assessed by the CARE team due to concerns about her safety upon discharge. The patient reported being in a state of shock because her abruptly left her with their dog and keys, purportedly traveling to [place]. Initially, there were concerns about suicidal ideation (SI), but upon further evaluation, she denies this and now feels safe to return home with her caregiver. Time Attestation Discharge coordination time: Greater than 30 minutes Quality: Safe Use of Opioids Does Pt have an Active Cancer Diagnosis on the Problem List?: No Quality: Stroke Does the patient have a stroke diagnosis?: No Physical Exam Vital Signs: Vital Signs: Last Vital Signs Temp 97.9 F 04/25/23 15:27 Pulse 105 H 04/25/23 15:27 Resp 18 04/25/23 15:27 BP 131/65 04/25/23 15:27 Pulse Ox 95 04/25/23 15:27 O2 Del Method Room Air 04/25/23 15:27 O2 Flow Rate 2 04/25/23 11:11 Oxygen Flow Rate 2 04/23/23 10:13 BMI result Body Mass Index 62.8 Const: Other: General: AO X 3, no acute distress Resp: CTA bilateral CVS: S1,S2,RRR GI: +BS, NT, no distention Skin: No rash Neuro: motor grossly intact Psych: appropriate affect DS: Data Data Completed and Pending Completed studies during hospitalization [Text1]: Procedures Assistance with Respiratory Ventilation, Less than 24 Consecutive Hours, Continuous Positive Airway Pressure (04/23/22) Insertion of Endotracheal Airway into Trachea, Via Natural or Artificial Opening (04/23/22) Insertion of Infusion Device into Superior Vena Cava, Percutaneous Approach (04/23/22) Introduction of Baricitinib into Mouth and Pharynx, External Approach, [employer] (04/23/22) Introduction of Vasopressor into Peripheral Vein, Percutaneous Approach (04/23/22) Respiratory Ventilation, Greater than 96 Consecutive Hours (04/23/22) Ultrasonography of Superior Vena Cava, Guidance (04/23/22) Labs on day of discharge: Laboratory Results - last 24 hr 04/24/23 04/24/23 04/25/23 16:12 20:54 07:33 POC Glucose 140 H 121 H 130 H 04/25/23 11:12 POC Glucose 129 H Preliminary micro results at discharge 04/23/23 11:19 Blood Culture - Preliminary Blood - Venous No growth after 48 hours. 04/23/23 10:32 Blood Culture - Preliminary Blood - Venous No growth after 48 hours. Discharge Plan Discharge Anticipated Discharge Date/Time: 04/25/23 15:20 Patient Disposition: Home, Self-Care Discharge Diagnosis: Asthma of exacerbation Referrals: Physician,Unknown J [Primary Care Provider] - 1 Week Discharge Medications: New prednisone 20 mg tablet 40 mg PO DAILY Qty: 6 0RF Continued (DME) FreeStyle Lite Strips Strip Qty: 100 0RF Rx Instructions: Test four times a day or as directed. (DME) blood-glucose meter [FreeStyle Lite Meter] Kit Qty: 1 0RF Rx Instructions: As Directed (DME) lancets [FreeStyle Lancets] 28 gauge misc Qty: 100 0RF Rx Instructions: Test four times a day or as directed. bupropion HCl 150 mg tablet extended release 24 hr 300 mg PO DAILY duloxetine 20 mg capsule,delayed release(DR/EC) 20 mg PO DAILY metformin 500 mg tablet 500 mg PO BIDWM hydroxyzine HCl 50 mg Tablet 50 mg PO QID PRN (Reason: Anxiety) paroxetine HCl 20 mg tablet 20 mg PO BEDTIME nicotine (polacrilex) 4 mg Lozenge 4 mg BUCCAL Q2H PRN (Reason: Nicotine Cravings) hydroxyzine pamoate 50 mg capsule 100 mg PO BEDTIME PRN (Reason: Insomnia) albuterol sulfate 2.5 mg /3 mL (0.083 %) solution for nebulization 2.5 mg inhalation Q6H PRN (Reason: wheezing) riboflavin (vitamin B2) [Vitamin B-2] 100 mg tablet 200 mg PO BID sumatriptan succinate 25 mg tablet 25 mg PO DAILY PRN (Reason: Migraine Headache) Rx Instructions: MRX1 after 2 hours gabapentin 400 mg capsule 800 mg PO BEDTIME prazosin [Minipress] 5 mg capsule 5 mg PO BEDTIME Rx Instructions: TAKE WITH 2MG pantoprazole 40 mg tablet,delayed release (DR/EC) 40 mg PO BID@0630,1630 nicotine 21 mg/24 hr patch 24 hour 1 patch topical DAILY montelukast 10 mg tablet 10 mg PO BEDTIME cyanocobalamin (vitamin B-12) 1,000 mcg tablet, sublingual 1,000 mcg sublingual DAILY mirtazapine 15 mg tablet 15 mg PO BEDTIME gabapentin 100 mg capsule 100 mg PO BID PRN (Reason: Pain) albuterol sulfate [Ventolin HFA] 90 mcg/actuation HFA aerosol inhaler 2 puff inhalation Q6H dicyclomine 10 mg capsule 20 mg PO Q8H PRN (Reason: Abdominal Pain) prazosin 2 mg capsule 2 mg PO BEDTIME Rx Instructions: TAKE WITH 5MG budesonide-formoterol [Symbicort] 160-4.5 mcg/actuation HFA aerosol inhaler 2 puff INHALATION BID acetaminophen [Tylenol] 325 mg Tablet 650 mg PO Q6H PRN (Reason: Pain) polyethylene glycol 3350 17 gram powder in packet 17 g PO DAILY PRN (Reason: Constipation) meloxicam 15 mg tablet 15 mg PO DAILY PRN (Reason: pain) triamcinolone acetonide 55 mcg aerosol,spray 1 spray intranasal DAILY ondansetron 4 mg tablet,disintegrating 4 mg PO Q8H PRN (Reason: nausea/vomiting) Discharge Orders: Discharge Order (Routine); Ordered 04/26/23 Ordered By: Roger Vargas Diet: Diabetic diet Activity on Discharge: As tolerated Stand Alone Forms: Patient Portal Discharge page Care Plan Goals: full recovery from asthm/copd Health Concerns: copd/asthma exacerbation Plan of Treatment: take prednsione as recommended and follow up with your Doctor in a week Assessment: as above
[2023-04-25 16:18] LABS: Glucose, Whole Blood 159 mg/dL (60-115)
[2023-04-25] MEDS: LORazepam 0.5 MG TABLET PO (19:53)
[2023-04-25 20:05] LABS: Glucose, Whole Blood 111 mg/dL (60-115)
[2023-04-25] MEDS: PARoxetine HCL 20 MG TABLET PO (20:28)
[2023-04-25] MEDS: Gabapentin 400 MG CAPSULE 800 MG PO (20:28)
[2023-04-25] MEDS: Mirtazapine 15 MG TABLET PO (20:28)
[2023-04-25] MEDS: Prazosin HCL 5 MG CAPSULE PO (20:29)
[2023-04-25] MEDS: Prazosin HCL 1 MG CAPSULE 2 MG PO (20:34)
[2023-04-26] VITALS: BP 95/59; PULSE 97; RESP 20; TEMP 36.5; O2SAT 96
[2023-04-26] MEDS: 0.9 % Sodium Chloride Flush 3 ML SYRINGE IVFLUSH ×2 (00:21→08:30)
[2023-04-26 04:00] VITALS: BP 138/63; PULSE 100; RESP 22; TEMP 37.1; O2SAT 97
[2023-04-26] MEDS: Omeprazole 20 MG CAPSULE.DR PO (04:23)
[2023-04-26] MEDS: LORazepam 0.5 MG TABLET PO (04:23)
[2023-04-26] MEDS: hydrOXYzine HCL 50 MG TABLET PO (06:09)
[2023-04-26 07:57] VITALS: BP 143/78; PULSE 97; RESP 18; TEMP 36.4; O2SAT 96
[2023-04-26 08:07] LABS: Glucose, Whole Blood 104 mg/dL (60-115)
[2023-04-26] MEDS: predniSONE 20 MG TABLET 40 MG PO (08:30)
[2023-04-26] MEDS: DULoxetine HCl 20 MG CAPSULE.DR PO (08:30)
[2023-04-26] MEDS: buPROPion HCl XL 300 MG TAB.ER.24H PO (08:30)
[2023-04-26 08:38] VITALS: PULSE 99; RESP 18; O2SAT 98
[2023-04-26] MEDS: Albuterol/Iprat 2.5/0.5MG 3 ML AMPUL.NEB INHALE ×2 (08:38→12:18)
[2023-04-26 11:49] LABS: Glucose, Whole Blood 218 mg/dL (60-115)
[2023-04-26 12:00] VITALS: BP 135/81; PULSE 100; RESP 18; TEMP 36.1; O2SAT 95
--- NOTE | 2023-04-26 12:04 | PC.RT ---
pt requesting more oxygen tanks at home. She wants a pulsating oxygen delivery device so she doesnt have to tank 3 tanks with her when she goes out of the house. I will speak to her [employer] which is [employer] and have them speak with her about this matter.
--- NOTE | 2023-04-26 12:13 | MHC.CM.PN ---
Patient has been medically cleared for dc to home today, self care (no skilled services ordered). Patient's [employer] and home O2 through [employer] should resume as before.
[2023-04-26 12:19] VITALS: PULSE 100; RESP 18; O2SAT 94
--- NOTE | 2023-04-26 12:20 | MHC.CM.PN ---
CM received a call from [facility], who stated that Patient is active with them. CHRISTOPHER has faxed dc summary to this [facility] @ [phone]. has been made aware.
== END 2023-04-26 14:32 | disposition home health service (06) | DRG 140 ==
LOC: HO.ED 13:01 → HO.EDOVER 13:49 → HO.IMC 16:19
PROVIDERS: Admitting Provider Physician Assistant Medical; Emergency Provider Emergency Medicine; PCP Family Medicine; Visit Provider Internal Medicine
DX: J44.1 Chronic obstructive pulmonary disease with (acute) exacerbation (principal); J96.21 Acute and chronic respiratory failure with hypoxia; J84.9 Interstitial pulmonary disease, unspecified; J45.901 Unspecified asthma with (acute) exacerbation; F33.9 Major depressive disorder, recurrent, unspecified; E11.9 Type 2 diabetes mellitus without complications; Z71.3 Dietary counseling and surveillance; E66.2 Morbid (severe) obesity with alveolar hypoventilation; Z20.822 Contact with and (suspected) exposure to COVID-19; Z68.41 Body mass index [BMI] 40.0-44.9, adult; Z87.891 Personal history of nicotine dependence; Z79.84 Long term (current) use of oral hypoglycemic drugs; Z79.899 Other long term (current) drug therapy
CPT/HCPCS: 0241U; 36415; 71045; 80048; 80076; 81003; 82803; 82947; 83605; 83690; 83735; 83880; 84145; 84484; 85025; 85027; 85610; 87040; 87633; 93005; 94640; 99222; 99285; J0456; J0692; J1650; J1885; J2920; J2930; J3475; S9485

== ENCOUNTER → 2023-04-23 10:49 | Outpatient (BNV) | payer OTHER, SELFPAY | PROVIDERS: Admitting Provider Physician Assistant Medical; Emergency Provider Emergency Medicine; Visit Provider Internal Medicine | DX: R00.0 Tachycardia, unspecified (principal); R06.02 Shortness of breath | CPT/HCPCS: 93010 ==

== ENCOUNTER → 2023-04-23 13:43 | Outpatient (BNV) | payer OTHER, SELFPAY | PROVIDERS: Admitting Provider Physician Assistant Medical; Emergency Provider Emergency Medicine; Visit Provider Physician Assistant Medical | DX: J44.1 Chronic obstructive pulmonary disease with (acute) exacerbation (principal) | CPT/HCPCS: 99223; 99232; 99239 ==

== ENCOUNTER 2023-05-21 15:06 | Emergency (ER) | payer OTHER, SELFPAY ==
--- NOTE | ~2023-05-21 | XR_ITS ---
EXAMINATION: XR CHEST CLINICAL INFORMATION: Shortness of breath COMPARISON: Multiple prior chest radiographs most recently 04/23/2023 TECHNIQUE: Portable AP upright view of the chest was obtained. FINDINGS: Cardiomediastinal silhouette is stable in size. Moderate peribronchial thickening and increased perihilar interstitial markings are seen. The previous opacity in the right upper lobe has resolved. XR/XR chest 1V IMPRESSION: Significant small airways changes are demonstrated which could reflect asthma, bronchitis or viral/atypical infectious process. The findings are similar to prior. Prior right upper lobe consolidation has resolved and the lungs and pleural spaces are clear.
[2023-05-21 15:15] VITALS: BP 105/60; PULSE 98; RESP 24; TEMP 36.7; O2SAT 100; O2SAT 99; BMI 49.0
[2023-05-21 15:21] VITALS: BP 135/56; PULSE 97; RESP 22; TEMP 36.7; O2SAT 99
--- NOTE | 2023-05-21 15:27 | ECG_ITS ---
Test Reason : DYSNEA Blood Pressure : / mmHG Vent. Rate : 096 BPM Atrial Rate : 096 BPM P-R Int : 138 ms QRS Dur : 086 ms QT Int : 352 ms P-R-T Axes : 059 034 020 degrees QTc Int : 444 ms Normal sinus rhythm Normal ECG When compared with ECG of 23-APR-2023 10:49, No significant change was found Referred By: Generic ED Physician Electronically Signed By:Augustin Fried
--- NOTE | 2023-05-21 16:00 | ED.GENADULT ---
HPI - General Adult General Chief complaint: Dyspnea Stated complaint: SOB xdays, COPD, on 3L and neb treatment Time Seen by Provider: 05/21/23 15:54 Source: patient and EMS Mode of arrival: EMS Limitations: no limitations History of Present Illness HPI narrative: Patient is a 42 year old assigned female at with a history of COPD on 3 liters at baseline and asthma presenting to the emergency department today with increased wheezing and shortness of breath. Patient states that over the last 3 days she has had worsening wheezing and feels like her inhaler isn't helping as much as it could be. Patient denies any dizziness, lightheadedness, abdominal pain, nausea, vomiting, fever, chills, blurry vision, double vision, loss of vision, chest pain, back pain, night sweats, pain with urination, increased urinary frequency, increased urinary urgency, blood in her urine or stool, syncope or a near syncopal episode, recent trauma or falls, bowel incontinence, bladder incontinence, bowel retention, bladder retention, or any other complaints at this time. Onset (ago): day(s) (3) Relieving factors: none Exacerbating factors: none Associated symptoms: shortness of breath Treatments prior to arrival: none Related Data Home Medications Medication Instructions Recorded Confirmed acetaminophen 325 mg tablet 650 mg PO Q6H PRN Pain 11/16/22 04/23/23 (Tylenol) albuterol sulfate 2.5 mg/3 mL 2.5 mg inhalation Q6H PRN wheezing 11/16/22 04/23/23 (0.083 %) solution for nebulization albuterol sulfate 90 mcg/actuation 2 puff inhalation Q6H 11/16/22 04/23/23 aerosol inhaler (Ventolin HFA) budesonide-formoterol HFA 160 2 puff inhalation BID 11/16/22 04/23/23 mcg-4.5 mcg/actuation aerosol inhaler (Symbicort) cyanocobalamin (vitamin B-12) 1,000 mcg sublingual DAILY 11/16/22 04/23/23 1,000 mcg sublingual tablet dicyclomine 10 mg capsule 20 mg PO Q8H PRN Abdominal Pain 11/16/22 04/23/23 gabapentin 100 mg capsule 100 mg PO BID PRN Pain 11/16/22 04/23/23 gabapentin 400 mg capsule 800 mg PO BEDTIME 11/16/22 04/23/23 mirtazapine 15 mg tablet 15 mg PO BEDTIME 11/16/22 04/23/23 montelukast 10 mg tablet 10 mg PO BEDTIME 11/16/22 04/23/23 nicotine 21 mg/24 hr daily 1 patch topical DAILY Nicotine 11/16/22 04/23/23 transdermal patch Cravings pantoprazole 40 mg tablet,delayed 40 mg PO BID@0630,1630 11/16/22 04/23/23 release polyethylene glycol 3350 17 gram 17 g PO DAILY PRN Constipation 11/16/22 04/23/23 oral powder packet prazosin 2 mg capsule 2 mg PO BEDTIME 11/16/22 04/23/23 prazosin 5 mg capsule (Minipress) 5 mg PO BEDTIME 11/16/22 04/23/23 riboflavin (vitamin B2) 100 mg 200 mg PO BID 11/16/22 04/23/23 tablet (Vitamin B-2) sumatriptan succinate 25 mg tablet 25 mg PO DAILY PRN Migraine 11/16/22 04/23/23 Headache bupropion HCl 150 mg 24 hr tablet, 300 mg PO DAILY 02/05/23 04/23/23 extended release meloxicam 15 mg tablet 15 mg PO DAILY PRN pain 03/01/23 04/23/23 ondansetron 4 mg disintegrating 4 mg PO Q8H PRN nausea/vomiting 03/01/23 04/23/23 tablet triamcinolone acetonide 55 mcg 1 spray intranasal DAILY 03/01/23 04/23/23 nasal spray aerosol duloxetine 20 mg capsule,delayed 20 mg PO DAILY 04/23/23 04/23/23 release hydroxyzine HCl 50 mg tablet 50 mg PO QID PRN Anxiety 04/23/23 04/23/23 hydroxyzine pamoate 50 mg capsule 100 mg PO BEDTIME PRN Insomnia 04/23/23 04/23/23 metformin 500 mg tablet 500 mg PO BIDWM 04/23/23 04/23/23 nicotine (polacrilex) 4 mg buccal 4 mg buccal Q2H PRN Nicotine 04/23/23 04/23/23 lozenge Cravings paroxetine HCl 20 mg tablet 20 mg PO BEDTIME 04/23/23 04/23/23 Previous Rx's Medication Instructions Recorded blood sugar diagnostic (FreeStyle #100 ea 08/25/23 Lite Strips) blood-glucose meter (FreeStyle #1 ea 12/17/22 Lite Meter kit) lancets 28 gauge (FreeStyle #100 ea 12/17/22 Lancets) prednisone 20 mg tablet 40 mg (2 x 20 mg) PO DAILY #6 tabs 04/25/23 prednisone 20 mg tablet 20 mg PO DAILY 12 days #26 tabs 05/21/23 Allergies Allergy/AdvReac Type Severity Reaction Status Date / Time promethazine [From PHENERGAN] Allergy Unknown ITCHING Verified 04/23/23 10:17 egg Allergy Hives Verified 04/23/23 10:17 codeine [CODEINE] AdvReac Unknown STOMACH Verified 04/23/23 10:17 UPSET morphine [MORPHINE] AdvReac Unknown MORE PAIN Verified 04/23/23 10:17 Review of Systems Constitutional: Constitutional: Reports no additional constitutional complaints, Denies chills, Denies fever(s) and Denies night sweats Eyes: Eyes: Reports no additional eye complaints, Denies blurry vision, Denies change in vision, Denies diplopia, Denies eye discharge, Denies loss of vision and Denies eye pain ENT: Denies dizziness Cardiovascular: Cardiovascular: Reports no additional cardiovascular complaints, Denies chest pain, Denies lightheadedness, Denies Loss of Consciousness and Reports dyspnea Respiratory: Respiratory: Reports no additional respiratory complaints, Reports dyspnea and Reports wheezing Gastrointestinal: Gastrointestinal: Reports no additional gastrointestinal complaints, Denies abdominal pain, Denies melena, Denies hematochezia, Denies change in bowel habits and Denies change in stool character Genitourinary: Genitourinary: Denies hematuria, Denies urinary frequency, Denies dysuria, Denies urinary incontinence, Denies urinary hesitancy and Denies urinary urgency Musculoskeletal: Musculoskeletal: Reports no additional musculoskeletal complaints, Denies numbness and Denies tingling Neurologic: Denies dizziness, Denies loss of vision, Denies numbness and Denies tingling Psychiatric: Psychiatric: Reports no additional psychiatric complaints Endocrine: Endocrine: Reports no additional endocrine complaints Hematologic/Lymphatic: Hematologic/Lymphatic: Reports no additional hematologic/lymphatic complaints Allergic/Immunologic: Allergic/Immunologic: Reports no additional allergic/immunologic complaints and Reports wheezing PMFSH Past Medical History Attestation statement: The following information was validated with the patient. Source: old records reviewed and nursing notes reviewed Medical History Acute exacerbation of chronic obstructive airways disease Abdominal pain Asthma with exacerbation Lower extremity edema Pneumonia Sepsis Acute exacerbation of COPD with asthma Acute respiratory failure with hypoxia Asthmaticus, status Chronic lung disease ILD (interstitial lung disease) Panic attack as reaction to stress Recurrent major depression Generalized anxiety disorder Morbid obesity Sinus infection Disc herniation H. pylori infection Depression Migraine Asthma Surgical History History of Social History Social History Household Members: Family Housing: Apartment Housing Other:: 2nd fl Do you presently have visiting nurse or other home services: Yes Alcohol intake: never Comment: Pt refusing bed/chair alarm- steady on feet, 1:1 Sitter Patient Tobacco Use Status: Former Tobacco user Quit Date: 11/14/22 Tobacco use type: Cigarette Cigarette Packs Per Day: 2 Cigarettes Per Day: 5 Smoked in Last 30 Days: No e-Cigarette/Vaping Use: Never Used Second Hand Smoke Exposure: Yes Use of substances other than those prescribed or required for medical reasons: No Advance Directives: Yes Advance Directives on File: Yes Advance Directives Date on File: 05/12/22 service: No Current occupational status: unemployed Physical Exam ED Vital Signs: Vital Signs - 24 hr 05/21/23 15:15 05/21/23 15:21 05/21/23 16:43 Temperature 98.0 F 98.0 F Pulse Rate 98 97 102 H Respiratory Rate 24 H 22 H 22 H Blood Pressure 135/56 L Pulse Oximetry 99 99 Oxygen Delivery Method Nasal Cannula Nasal Cannula Oxygen Flow Rate 3 05/21/23 18:13 Temperature Pulse Rate 99 Respiratory Rate 20 Blood Pressure 128/70 Pulse Oximetry 98 Oxygen Delivery Method Nasal Cannula Oxygen Flow Rate 2 BMI result Body Mass Index 49.0 Const General: cooperative, no acute distress, alert and awake Nutritional Appearance: well nourished Orientation/consciousness: patient oriented x3 Limitations: no limitations HENMT Head: Yes normal to inspection and Yes atraumatic Ears: hearing grossly normal bilaterally and external ears normal General nose exam: Normal external nose present, no nasal discharge noted and no epistaxis Face and sinus: Yes normal facial exam, No abrasion and No laceration Mouth: Normal oral and palatal mucosa present, no drooling and no muffled voice Eyes General: appearance normal, both eyes and all related structures Periorbital: periorbital findings normal Eyelids: Yes eyelids normal Conjunctivae: conjunctivae normal Pupils: Equal, round and reactive pupils present EOM: EOMs intact bilaterally Neck Neck: Yes normal visual inspection, Yes full ROM and Yes no lymphadenopathy Chest Chest palpation & inspection: normal inspection of the chest Resp Other: patient is on 3 liters of oxygen via nasal canula per her baseline Effort & Inspection: normal respiratory effort and able to speak in complete sentences Auscultation: wheezes scattered wheezes GI Inspection: Yes normal to inspection Neuro General: patient oriented x3 and moves all extremities Cranial nerves: Yes Equal, round and reactive pupils present Cognition (Neuro): normal cognition Motor exam (neuro): 5/5 motor strength present throughout Sensory Exam: Normal double simultaneous stimulation for sensation Coordination: [id number] test normal Extrem General: Yes normal to inspection, Yes full ROM and Yes capillary refill normal Psych Appearance: grossly normal Mental Status: mental status grossly normal Affect: normal affect Attitude: cooperative Thought process: Normal thought process present Thought content: Normal thought content present Insight: Good insight present (Psych) Medications Administered Discontinued Medications Generic Name Dose Route Start Last Admin Trade Name Boubacar PRN Reason Stop Dose Admin Albuterol Sulfate 5 mg/ 7.5 mg 05/21/23 16:40 05/21/23 16:42 Albuterol Sulfate 2.5 mg INHALE 05/21/23 16:41 7.5 mg ONCE ONE Administration Magnesium Sulfate 2 gm in 50 mls @ 25 mls/hr 05/21/23 16:46 05/21/23 18:12 Magnesium Sulfate/H2o IV 05/21/23 18:45 Infused ONCE ONE Infusion Ketorolac Tromethamine 15 mg 05/21/23 18:01 05/21/23 18:13 Ketorolac Tromethamine 15 Mg/Ml Vial IM 05/21/23 18:02 15 mg ONCE ONE Administration Methylprednisolone Sodium Succinate 60 mg 05/21/23 16:46 05/21/23 17:19 Methylprednisolone Sod Succ 125 Mg/2 Ml Vial IVPUSH 05/21/23 16:47 60 mg ONCE ONE Administration Medical Decision Making Medical Decision Making MDM Narrative: Patient is a 42 year old assigned female at with a history of COPD on 3 liters of oxygen via nasal canula and asthma presenting to the emergency department today with increased wheezing and shortness of breath. Patient's physical exam was as noted in the physical exam portion of this note. Patient's blood work was unremarkable. Patient's EKG was unremarkable. Patient's chest x-ray showed evidence of asthma. I explained my physical exam findings as well as all test results to the patient. I answered all questions asked by the patient. Patient received IV magnesium, IV solu-medrol, and a breathing treatment which she stated helped her symptoms significantly. Patient's clinical presentation is not consistent with sepsis (@1600). Patient explicitly stated she did not want to stay in the hospital and that she felt better enough to go home. I stressed the importance of the patient taking her medication as prescribed. I stressed the importance of the patient following up with her primary care provider. I stressed the importance of the patient returning to the emergency department immediately if her symptoms were to worsen or if she were to develop any dizziness, shortness of breath, difficulty breathing, chest pain, blurry vision, loss of vision, nausea, vomiting, abdominal pain, fever, chills, back pain, or any other complaints. Patient verbalized agreement and understanding with this treatment plan and discharge. Differential Diagnosis Differential Diagnoses: The differential diagnosis associated with the presentation includes Shortness of breath Wheezing Asthma COPD Admission/Observation Consideration of admission/observation: Escalation of care including admission/observation considered Patient would have been admitted to the hospital had her work up had any findings where hospital admission was appropriate, her clinical presentation warranted hospital admission, and she had been agreeable to staying. Lab Data [facility] Lab Attestation statement: I reviewed the patient's lab results. My interpretation of these results are in the [facility] Rationale portion of this note. 05/21/23 16:16 05/21/23 16:16 Labs: Lab Results 05/21/23 05/21/23 Range/Units 16:00 16:16 WBC 14.0 H (4.8-10.8) X10*3/uL RBC 4.48 (4.20-5.50) X10*6/uL Hgb 11.2 L (12.0-16.0) g/dl Hct 36.0 L (37.0-47.0) % MCV 80.4 (80.0-98.0) fL MCH 25.0 L (27.0-33.0) pg MCHC 31.1 (31.0-35.0) g/dl RDW 16.4 H (11.0-16.0) % Plt Count 340 (160-400) X10*3/uL MPV 9.1 L (9.4-12.3) fL Immature Gran % (Auto) 0.2 (0.0-0.4) % Neut % (Auto) 62.1 (45-73) % Lymph % (Auto) 20.6 (20-40) % [place] % (Auto) 6.6 (2-11) % Eos % (Auto) 9.9 H (0-4) % Baso % (Auto) 0.6 (0-2) % Lymph # (Auto) 2.9 (1.2-4.9) X10*3/uL [place] # (Auto) 0.9 (0.1-1.2) X10*3/uL Eos # (Auto) 1.4 H (0.0-0.4) X10*3/uL Baso # (Auto) 0.1 (0.0-0.2) X10*3/uL Abs Immat Gran (auto) 0.03 (0.00-0.03) X10*3/uL Absolute Neuts (auto) 8.7 H (2.0-8.3) x10*3/uL Absolute Nucleated RBC 0.000 (0.0-0.012) X10*3/uL Nucleated RBC % (auto) 0.0 (0.0-0.2) /100WBC Sodium 142 (135-145) mmol/L Potassium 4.1 (3.3-5.1) mmol/L Chloride 102 (96-108) mmol/L Carbon Dioxide 29 (22-29) mmol/L Anion Gap 15 (12-20) BUN 15 (9-16) mg/dL Creatinine 0.79 (0.5-1.4) mg/dL Estim Creat Clear Calc 109.7 Estimated GFR > 60 Random Glucose 86 (60-115) mg/dL Calcium 9.5 (8.4-10.2) mg/dL Troponin I High Sens < 2.7 (<3.5-17.0) ng/L COVID-19 ([facility]) Negative (Negative) COVID-19 Clin Com See Note Influenza Type A ([facility]) Negative (Negative) Influenza Type B ([facility]) Negative (Negative) Influenza A & B Note See Note Independent Interpretation I performed an independent interpretation of an: EKG and Plain X-Ray Interpretation: My interpretation is in agreement with the radiologist's impression of this imaging study. EXAMINATION: XR CHEST CLINICAL INFORMATION: Shortness of breath COMPARISON: Multiple prior chest radiographs most recently 04/23/2023 TECHNIQUE: Portable AP upright view of the chest was obtained. FINDINGS: Cardiomediastinal silhouette is stable in size. Moderate peribronchial thickening and increased perihilar interstitial markings are seen. The previous opacity in the right upper lobe has resolved. XR/XR chest 1V IMPRESSION: Significant small airways changes are demonstrated which could reflect asthma, bronchitis or viral/atypical infectious process. The findings are similar to prior. Prior right upper lobe consolidation has resolved and the lungs and pleural spaces are clear. Dictated By: Esa Monique MD Signed By: Electronically signed by Esa Monique MD 05/21/23 1557 Vent. Rate: 96 BPM Atrial Rate: 96 BPM P-R Int: 138 ms QRS Dur: 086 ms QT Int: 352 ms P-R-T Axes: 059 034 020 degrees QTc Int: 444 ms Normal sinus rhythm Normal ECG 05/21/23 1532 Radiology Impression Discussion of test interpretation with radiology: I have reviewed the radiologist's reading. Independent Historian Clinical information obtained from an independent historian. History obtained from or confirmed by: EMS (EMS provided additional history and confirmed the history provided by the patient.) External Record Review External record reviewed: Inpatient record Chronic Conditions Patient?s care impacted by: Other (asthma, COPD) Critical Care Time Critical Care Time Critical Care Time: Yes Total Critical Care Time: 35 Attestation: I spent 35 minutes of Critical Care Time with this patient. This does not include time spent on separately reported billable procedures. Discharge Plan Discharge Clinical Impression: Asthma Patient Disposition: Home, Self-Care Instructions: Asthma (DC) Additional Instructions: Follow up with your primary care provider. Return to the emergency department immediately if your symptoms worsen or if you develop any dizziness, shortness of breath, difficulty breathing, chest pain, blurry vision, loss of vision, nausea, vomiting, abdominal pain, fever, chills, back pain, or any other complaints. Lenora un seguimiento con josue proveedor de atenci?n primaria. Regrese al departamento de emergencias inmediatamente si librado s?ntomas empeoran o si presenta mareos, dificultad para respirar, dificultad para respirar, dolor en el pecho, visi?n borrosa, p?rdida de la visi?n, n?useas, v?mitos, dolor abdominal, fiebre, escalofr?os, dolor de espalda o cualquier otras quejas. Prescriptions: New prednisone 20 mg tablet 20 mg PO DAILY 12 Days Qty: 26 0RF Rx Instructions: Take 3 tablets for 5 days THEN; Take 2 tablets for 4 days THEN; Take 1 tablet for 3 days No Action (DME) FreeStyle Lite Strips Strip Qty: 100 0RF Rx Instructions: Test four times a day or as directed. (DME) blood-glucose meter [FreeStyle Lite Meter] Kit Qty: 1 0RF Rx Instructions: As Directed (DME) lancets [FreeStyle Lancets] 28 gauge misc Qty: 100 0RF Rx Instructions: Test four times a day or as directed. bupropion HCl 150 mg tablet extended release 24 hr 300 mg PO DAILY duloxetine 20 mg capsule,delayed release(DR/EC) 20 mg PO DAILY metformin 500 mg tablet 500 mg PO BIDWM hydroxyzine HCl 50 mg Tablet 50 mg PO QID PRN (Reason: Anxiety) paroxetine HCl 20 mg tablet 20 mg PO BEDTIME nicotine (polacrilex) 4 mg Lozenge 4 mg BUCCAL Q2H PRN (Reason: Nicotine Cravings) hydroxyzine pamoate 50 mg capsule 100 mg PO BEDTIME PRN (Reason: Insomnia) prednisone 20 mg tablet 40 mg PO DAILY Qty: 6 0RF albuterol sulfate 2.5 mg /3 mL (0.083 %) solution for nebulization 2.5 mg inhalation Q6H PRN (Reason: wheezing) riboflavin (vitamin B2) [Vitamin B-2] 100 mg tablet 200 mg PO BID sumatriptan succinate 25 mg tablet 25 mg PO DAILY PRN (Reason: Migraine Headache) Rx Instructions: MRX1 after 2 hours gabapentin 400 mg capsule 800 mg PO BEDTIME prazosin [Minipress] 5 mg capsule 5 mg PO BEDTIME Rx Instructions: TAKE WITH 2MG pantoprazole 40 mg tablet,delayed release (DR/EC) 40 mg PO BID@0630,1630 nicotine 21 mg/24 hr patch 24 hour 1 patch topical DAILY montelukast 10 mg tablet 10 mg PO BEDTIME cyanocobalamin (vitamin B-12) 1,000 mcg tablet, sublingual 1,000 mcg sublingual DAILY mirtazapine 15 mg tablet 15 mg PO BEDTIME gabapentin 100 mg capsule 100 mg PO BID PRN (Reason: Pain) albuterol sulfate [Ventolin HFA] 90 mcg/actuation HFA aerosol inhaler 2 puff inhalation Q6H dicyclomine 10 mg capsule 20 mg PO Q8H PRN (Reason: Abdominal Pain) prazosin 2 mg capsule 2 mg PO BEDTIME Rx Instructions: TAKE WITH 5MG budesonide-formoterol [Symbicort] 160-4.5 mcg/actuation HFA aerosol inhaler 2 puff INHALATION BID acetaminophen [Tylenol] 325 mg Tablet 650 mg PO Q6H PRN (Reason: Pain) polyethylene glycol 3350 17 gram powder in packet 17 g PO DAILY PRN (Reason: Constipation) meloxicam 15 mg tablet 15 mg PO DAILY PRN (Reason: pain) triamcinolone acetonide 55 mcg aerosol,spray 1 spray intranasal DAILY ondansetron 4 mg tablet,disintegrating 4 mg PO Q8H PRN (Reason: nausea/vomiting) Referrals: [facility] Family Medicine [Provider Group] (Call to establish and follow up with a primary care provider. If you already have a primary care provider, please follow up with them. Llame para establecer y realizar un seguimiento con un proveedor de atenci?n primaria. Si ya tiene un proveedor de atenci?n primaria, lenora un seguimiento con ?l.) [facility] [Provider Group] (Call to establish and follow up with a primary care provider. If you already have a primary care provider, please follow up with them. Llame para establecer y realizar un seguimiento con un proveedor de atenci?n primaria. Si ya tiene un proveedor de atenci?n primaria, lenora un seguimiento con ?l.) [facility] [Provider Group] (Call to establish and follow up with a primary care provider. If you already have a primary care provider, please follow up with them. Llame para establecer y realizar un seguimiento con un proveedor de atenci?n primaria. Si ya tiene un proveedor de atenci?n primaria, lenora un seguimiento con ?l.) Interventions: ED Discharge Assessment Last Done: 05/21/23 19:22 Discharge Date/Time: 05/21/23 19:27 Print Language: Citizen Of [place]
--- NOTE | 2023-05-21 16:09 | PC.NURSE ---
Pt awake, alert and oriented. Breathing even, slightly labored when talking. Skin warm and dry. Pt coming from home, reports SOBX3 days, hx of COPD and on 3L O2 NC at baseline. Pt reports headache, sharp chest pains with breathing and generalized abdominal pain for 3 days as well. Pt reports productive cough with green sputum. Pt reports feeling breathing is better after neb treatment from EMS. Pt neg for any cyanosis, tripoding or severe resp distress at this time.
[2023-05-21 16:19] LABS: MANUAL DIFF FLAG NO
[2023-05-21 16:21] LABS: Basophils Absolute Auto 0.1 X10*3/uL (0.0-0.2); Basophils Percent Auto 0.6 % (0-2); Eosinophils Absolute Auto 1.4 X10*3/uL (0.0-0.4); Eosinophils Percent Auto 9.9 % (0-4); Hemoglobin 11.2 g/dl (12.0-16.0); Imm Gran Abs Auto 0.03 X10*3/uL (0.00-0.03); Imm Gran Pct Auto 0.2 % (0.0-0.4); Lymphocytes Absolute Auto 2.9 X10*3/uL (1.2-4.9); Lymphocytes Percent Auto 20.6 % (20-40); Mean Corpuscular HGB Conc 31.1 g/dl (31.0-35.0); Mean Corpuscular Volume 80.4 fL (80.0-98.0); Mean Platelet Volume 9.1 fL (9.4-12.3); Monocytes Absolute Auto 0.9 X10*3/uL (0.1-1.2); Monocytes Percent Auto 6.6 % (2-11); Neutrophils Absolute Auto 8.7 x10*3/uL (2.0-8.3); Neutrophils Percent Auto 62.1 % (45-73); Platelet Count 340 X10*3/uL (160-400); Red Blood Count 4.48 X10*6/uL (4.20-5.50); Red Cell Distribution Width 16.4 % (11.0-16.0)
[2023-05-21 16:31] LABS: COVID-19 Test Negative (Negative); IDNOW Serial# 08D9AD1C; IDNOW Serial# 152EDE1D; Influenza A Negative (Negative); Influenza B2 Negative (Negative)
[2023-05-21 16:32] LABS: Anion Gap 15 (12-20); Blood Urea Nitrogen 15 mg/dL (9-16); Calcium 9.5 mg/dL (8.4-10.2); Carbon Dioxide 29 mmol/L (22-29); Chloride 102 mmol/L (96-108); Creatinine Clr Calc Pharmacy 109.7; Estimated Glomerular Filt Rate > 60; Glucose Random 86 mg/dL (60-115); Potassium 4.1 mmol/L (3.3-5.1); Sodium 142 mmol/L (135-145)
[2023-05-21 16:42] LABS: Troponin-I High Sensitivity < 2.7 ng/L (<3.5-17.0)
[2023-05-21] MEDS: Albuterol Sulfate 5 MG, Albuterol Sulfate (0.083%) 2.5 MG 7.5 MG INHALE (16:42)
[2023-05-21 16:43] VITALS: PULSE 102; RESP 22; O2SAT 98
[2023-05-21] MEDS: methylPREDNISolone Sod Succ 125 MG/2 ML VIAL 60 MG IVPUSH (17:19)
[2023-05-21] MEDS: Magnesium Sulfate/H2O 2 GM/50 ML PIGGYBACK IV (17:20)
[2023-05-21 18:13] VITALS: BP 128/70; PULSE 99; RESP 20; O2SAT 98
[2023-05-21] MEDS: Ketorolac Tromethamine 15 MG/ML VIAL IM (18:13)
== END 2023-05-21 19:27 | disposition home or self-care (01) ==
PROVIDERS: Emergency Provider Emergency Medicine
DX: J45.909 Unspecified asthma, uncomplicated (principal); R06.02 Shortness of breath; Z11.52 Encounter for screening for COVID-19; E11.9 Type 2 diabetes mellitus without complications; Z79.899 Other long term (current) drug therapy; Z79.84 Long term (current) use of oral hypoglycemic drugs
CPT/HCPCS: 36415; 71045; 80048; 84484; 85025; 87502; 87635; 93005; 94640; 96365; 96375; 99284; 99285; J1885; J2930; J3475

== ENCOUNTER → 2023-05-21 15:27 | Outpatient (BNV) | payer OTHER, SELFPAY | PROVIDERS: Emergency Provider Emergency Medicine; Visit Provider Internal Medicine Cardiovascular Disease | DX: R06.00 Dyspnea, unspecified (principal) | CPT/HCPCS: 93010 ==

== ENCOUNTER 2023-06-09 21:06 | Inpatient (IN) | payer OTHER, SELFPAY ==
--- NOTE | ~2023-06-09 | XR_ITS ---
EXAMINATION: XR CHEST CLINICAL INFORMATION: Dyspnea. COMPARISON: Chest radiograph 05/21/2023. TECHNIQUE: Frontal view of the chest was obtained. FINDINGS: Cardiomediastinal silhouette is stable in size. Again noted peribronchial thickening and increased perihilar interstitial markings, not significantly changed. No new focal airspace opacity. No pleural effusion or pneumothorax. No acute osseous findings. XR/XR chest 1V IMPRESSION: No significant change when compared to 05/21/2023 with redemonstration of at least moderate peribronchial thickening.
[2023-06-09 21:25] VITALS: BP 143/85; PULSE 106; O2SAT 100
--- NOTE | 2023-06-09 21:27 | ECG_ITS ---
Test Reason : SOB Blood Pressure : / mmHG Vent. Rate : 104 BPM Atrial Rate : 104 BPM P-R Int : 116 ms QRS Dur : 086 ms QT Int : 360 ms P-R-T Axes : 056 053 025 degrees QTc Int : 473 ms Sinus tachycardia Otherwise normal ECG When compared with ECG of 21-MAY-2023 15:32, No significant change was found Referred By: Vanda Tian Electronically Signed By:Augustin Fried
[2023-06-09 21:32] VITALS: BP 118/77; PULSE 109; RESP 17; TEMP 36.7; O2SAT 100
[2023-06-09 21:35] VITALS: BMI 40.7
--- NOTE | 2023-06-09 21:46 | ED.ASTHMA ---
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 She comes in tonight with c/o 3 days of cough, runny nose, sputum production, increased work of breathing. No response to her home O2 3L NC and home nebs. She denies sick contacts. No pain and no fevers. She did hit her R rod walking around the mall 3 days ago and bruised it but no head trauma just felt tired and dizzy MD complaint: asthma attack , shortness of breath and wheezing Onset (ago): day(s) (3) Severity: severe Context: recent URI Associated symptoms: productive cough Asthma History: history of frequent attacks Treatments Prior to Arrival: inhaled bronchodilator Related Data Home Medications Medication Instructions Recorded Confirmed acetaminophen 325 mg tablet 650 mg PO Q6H PRN Pain 11/16/22 04/23/23 (Tylenol) albuterol sulfate 2.5 mg/3 mL 2.5 mg inhalation Q6H PRN wheezing 11/16/22 04/23/23 (0.083 %) solution for nebulization albuterol sulfate 90 mcg/actuation 2 puff inhalation Q6H 11/16/22 04/23/23 aerosol inhaler (Ventolin HFA) budesonide-formoterol HFA 160 2 puff inhalation BID 11/16/22 04/23/23 mcg-4.5 mcg/actuation aerosol inhaler (Symbicort) cyanocobalamin (vitamin B-12) 1,000 mcg sublingual DAILY 11/16/22 04/23/23 1,000 mcg sublingual tablet dicyclomine 10 mg capsule 20 mg PO Q8H PRN Abdominal Pain 11/16/22 04/23/23 gabapentin 100 mg capsule 100 mg PO BID PRN Pain 11/16/22 04/23/23 gabapentin 400 mg capsule 800 mg PO BEDTIME 11/16/22 04/23/23 mirtazapine 15 mg tablet 15 mg PO BEDTIME 11/16/22 04/23/23 montelukast 10 mg tablet 10 mg PO BEDTIME 11/16/22 04/23/23 nicotine 21 mg/24 hr daily 1 patch topical DAILY Nicotine 11/16/22 04/23/23 transdermal patch Cravings pantoprazole 40 mg tablet,delayed 40 mg PO BID@0630,1630 11/16/22 04/23/23 release polyethylene glycol 3350 17 gram 17 g PO DAILY PRN Constipation 11/16/22 04/23/23 oral powder packet prazosin 2 mg capsule 2 mg PO BEDTIME 11/16/22 04/23/23 prazosin 5 mg capsule (Minipress) 5 mg PO BEDTIME 11/16/22 04/23/23 riboflavin (vitamin B2) 100 mg 200 mg PO BID 11/16/22 04/23/23 tablet (Vitamin B-2) sumatriptan succinate 25 mg tablet 25 mg PO DAILY PRN Migraine 11/16/22 04/23/23 Headache bupropion HCl 150 mg 24 hr tablet, 300 mg PO DAILY 02/05/23 04/23/23 extended release meloxicam 15 mg tablet 15 mg PO DAILY PRN pain 03/01/23 04/23/23 ondansetron 4 mg disintegrating 4 mg PO Q8H PRN nausea/vomiting 03/01/23 04/23/23 tablet triamcinolone acetonide 55 mcg 1 spray intranasal DAILY 03/01/23 04/23/23 nasal spray aerosol duloxetine 20 mg capsule,delayed 20 mg PO DAILY 04/23/23 04/23/23 release hydroxyzine HCl 50 mg tablet 50 mg PO QID PRN Anxiety 04/23/23 04/23/23 hydroxyzine pamoate 50 mg capsule 100 mg PO BEDTIME PRN Insomnia 04/23/23 04/23/23 metformin 500 mg tablet 500 mg PO BIDWM 04/23/23 04/23/23 nicotine (polacrilex) 4 mg buccal 4 mg buccal Q2H PRN Nicotine 04/23/23 04/23/23 lozenge Cravings paroxetine HCl 20 mg tablet 20 mg PO BEDTIME 04/23/23 04/23/23 Previous Rx's Medication Instructions Recorded blood sugar diagnostic (FreeStyle #100 ea 12/17/22 Lite Strips) blood-glucose meter (FreeStyle #1 ea 12/17/22 Lite Meter kit) lancets 28 gauge (FreeStyle #100 ea 12/17/22 Lancets) prednisone 20 mg tablet 40 mg (2 x 20 mg) PO DAILY #6 tabs 04/25/23 prednisone 20 mg tablet 20 mg PO DAILY 12 days #26 tabs 05/21/23 Allergies Allergy/AdvReac Type Severity Reaction Status Date / Time promethazine [From PHENERGAN] Allergy Unknown ITCHING Verified 04/23/23 10:17 egg Allergy Hives Verified 04/23/23 10:17 codeine [CODEINE] AdvReac Unknown STOMACH Verified 04/23/23 10:17 UPSET morphine [MORPHINE] AdvReac Unknown MORE PAIN Verified 04/23/23 10:17 Review of Systems Review of Systems: Constitutional : No Fever, No Chills ENT/Mouth : No Hoarseness, No sore throat, No Rhinorrhea Eyes: No Redness, No Discharge, No Vision Changes Cardiovascular : No Chest Pain, positive SOB, positive Dyspnea on Exertion, No Edema Respiratory : positive Cough, No Sputum, positive Wheezing, Gastrointestinal : No Nausea, No Vomiting, No Diarrhea, No abdominal Pain Genitourinary : No Dysuria, No Hematuria Musculoskeletal : No joint pain, No Myalgias Skin : No rash Neuro : No Weakness, No Numbness, No Headache Psych : No anxiety, depression Heme/Lymph: No Bruising, No Bleeding Endocrine : No Polyuria, No Polydipsia All other systems reviewed and are negative PMFSH Past Medical History Attestation statement: The following information was validated with the patient. Source: old records reviewed Medical History Acute exacerbation of chronic obstructive airways disease Abdominal pain Asthma with exacerbation Lower extremity edema Pneumonia Sepsis Acute exacerbation of COPD with asthma Acute respiratory failure with hypoxia Asthmaticus, status Chronic lung disease ILD (interstitial lung disease) Panic attack as reaction to stress Recurrent major depression Generalized anxiety disorder Morbid obesity Sinus infection Disc herniation H. pylori infection Depression Migraine Asthma Surgical History History of Social History Social History Household Members: Family Housing: Apartment Housing Other:: 2nd fl Do you presently have visiting nurse or other home services: Yes Alcohol intake: never Comment: Pt refusing bed/chair alarm- steady on feet, 1:1 Sitter Patient Tobacco Use Status: Former Tobacco user Quit Date: 11/14/22 Tobacco use type: Cigarette Cigarette Packs Per Day: 2 Cigarettes Per Day: 5 e-Cigarette/Vaping Use: Never Used Second Hand Smoke Exposure: Yes Advance Directives: Yes Advance Directives on File: Yes Advance Directives Date on File: 05/12/22 Nutrition Risks: No Nutritional Risk service: No Current occupational status: unemployed Physical Exam Vital Signs: Vital Signs: Last Vital Signs Temp 97.6 F 06/10/23 01:04 Pulse 101 H 06/10/23 01:04 Resp 17 06/10/23 01:04 BP 126/62 06/10/23 01:04 Pulse Ox 97 06/10/23 01:04 O2 Del Method Room Air 06/10/23 01:04 O2 Flow Rate 4 06/09/23 21:32 BMI result Body Mass Index 40.7 Appearance: Alert. Oriented X3. mild acute distress. Eyes: Pupils equal, round and reactive to light. ENT: Pharynx normal. Neck: Normal inspection. Neck supple. CVS: tachycardic heart rate and rhythm. Pulses normal. Respiratory: Mildrespiratory distress - retractions and tachypnea. Breath sounds diffuse insp and exp wheezes Abdomen: Soft and nontender. Skin: Skin warm and dry. Normal skin color. Normal skin turgor. Extremities: No lower extremity edema. R anterior rod mild bruising Neuro: Oriented X 3. No motor deficit. No sensory deficit. Course Course Course Narrative: improved will admit Medications Administered Generic Name Dose Route Start Last Admin Trade Name Freq PRN Reason Stop Dose Admin Sodium Chloride 3 ml 06/10/23 00:00 06/10/23 00:07 0.9 % Sodium Chloride Flush 3 Ml Syringe IVFLUSH 3 ml QSHIFT KRYSTLE Administration Discontinued Medications Generic Name Dose Route Start Last Admin Trade Name Freq PRN Reason Stop Dose Admin Albuterol Sulfate 7.5 mg/ 10 mg 06/09/23 21:51 06/09/23 21:56 Albuterol Sulfate 2.5 mg INHALE 06/09/23 21:52 10 mg ONCE ONE Administration Magnesium Sulfate 2 gm in 50 mls @ 25 mls/hr 06/09/23 21:26 06/09/23 23:59 Magnesium Sulfate/H2o IV 06/09/23 23:25 Infused ONCE ONE Infusion Ceftriaxone Sodium 1 gm/ 50 mls @ 100 mls/hr 06/09/23 21:26 06/10/23 00:36 Sodium Chloride IV 06/09/23 21:55 Infused ONCE ONE Infusion Azithromycin 500 mg/ Sodium 250 mls @ 125 mls/hr 06/09/23 21:26 06/10/23 01:32 Chloride IV 06/09/23 23:25 125 mls/hr ONCE ONE Administration Methylprednisolone Sodium Succinate 125 mg 06/09/23 21:26 06/09/23 21:59 Methylprednisolone Sod Succ 125 Mg/2 Ml Vial IVPUSH 06/09/23 21:27 125 mg ONCE ONE Administration Medical Decision Making Medical Decision Making [facility] Narrative: 42 yo female with PMH of asthma, COPD with chronic respiratory failure on 3L NC, pneumonia, complicated COVID course last year resulting in respiratory arrest and ICU stay with intubation and MSSA pneumonia and frequent admissions for resp failure and COPD exacerbations here with c/o 3 days of URI and wheezing/distress at this time IV steroids, IV magnesium, labs, cultures, IV antibiotics and viral panel. Anticipate admission for COPD exacerbation. Differential Diagnosis Differential Diagnoses: The differential diagnosis associated with the presentation includes COPD, viral syndrome, pneumonia Admission/Observation Consideration of admission/observation: Escalation of care including admission/observation considered will admit given work of breathing Consult Healthcare Provider Management of the patient was discussed with: Hospitalist (will admit) Lab Data [facility] Lab Attestation statement: I reviewed the patient's lab results. 06/09/23 22:53 06/09/23 22:53 Labs: Lab Results 06/09/23 06/09/23 06/09/23 Range/Units 22:52 22:53 22:57 WBC 14.6 H (4.8-10.8) X10*3/uL RBC 4.46 (4.20-5.50) X10*6/uL Hgb 11.2 L (12.0-16.0) g/dl Hct 35.0 L (37.0-47.0) % MCV 78.5 L (80.0-98.0) fL MCH 25.1 L (27.0-33.0) pg MCHC 32.0 (31.0-35.0) g/dl RDW 16.6 H (11.0-16.0) % Plt Count TNP MPV 10.0 (9.4-12.3) fL Immature Gran % (Auto) 0.4 (0.0-0.4) % Neut % (Auto) 60.8 (45-73) % Lymph % (Auto) 25.4 (20-40) % [place] % (Auto) 7.0 (2-11) % Eos % (Auto) 5.7 H (0-4) % Baso % (Auto) 0.7 (0-2) % Lymph # (Auto) 3.7 (1.2-4.9) X10*3/uL [place] # (Auto) 1.0 (0.1-1.2) X10*3/uL Eos # (Auto) 0.8 H (0.0-0.4) X10*3/uL Baso # (Auto) 0.1 (0.0-0.2) X10*3/uL Abs Immat Gran (auto) 0.06 H (0.00-0.03) X10*3/uL Absolute Neuts (auto) 8.9 H (2.0-8.3) x10*3/uL Absolute Nucleated RBC 0.020 H (0.0-0.012) X10*3/uL Nucleated RBC % (auto) 0.1 (0.0-0.2) /100WBC Smear Tech's Comments VERIFIED VBG pH 7.60 H* (7.32-7.43) VBG pCO2 28 mmHg VBG pO2 141 mmHg VBG HCO3 27 H (22-26) mmol/L VBG O2 Saturation 99.0 % VBG Base Excess 6.6 mmol/L Sodium 138 (135-145) mmol/L Potassium 3.9 (3.3-5.1) mmol/L Chloride 101 (96-108) mmol/L Carbon Dioxide 27 (22-29) mmol/L Anion Gap 14 (12-20) BUN 7 L (9-16) mg/dL Creatinine 0.72 (0.5-1.4) mg/dL Estim Creat Clear Calc 116.4 Estimated GFR > 60 Random Glucose 148 H (60-115) mg/dL Lactic Acid (0.5-2.0) mmol/L Calcium 9.3 (8.4-10.2) mg/dL Magnesium 2.2 (1.6-2.6) mg/dL Total Bilirubin 0.3 (0.0-1.0) mg/dL Direct Bilirubin 0.1 (0.0-0.5) mg/dL AST 14 (5-31) U/L ALT 24 (0-31) U/L Alkaline Phosphatase 80 (39-117) U/L Troponin I High Sens < 2.7 (<3.5-17.0) ng/L B-Natriuretic Peptide < 10 (<100) pg/mL Total Protein 6.6 (6.5-8.0) g/dL Albumin 3.8 (3.5-5.0) g/dL COVID-19 ([facility]) Negative (Negative) COVID-19 Clin Com See Note Influenza Type A (KISHAN) Negative (Negative) Influenza Type B (KISHAN) Negative (Negative) Influenza A & B Note See Note 06/09/23 Range/Units 23:12 WBC (4.8-10.8) X10*3/uL RBC (4.20-5.50) X10*6/uL Hgb (12.0-16.0) g/dl Hct (37.0-47.0) % MCV (80.0-98.0) fL MCH (27.0-33.0) pg MCHC (31.0-35.0) g/dl RDW (11.0-16.0) % Plt Count MPV (9.4-12.3) fL Immature Gran % (Auto) (0.0-0.4) % Neut % (Auto) (45-73) % Lymph % (Auto) (20-40) % [place] % (Auto) (2-11) % Eos % (Auto) (0-4) % Baso % (Auto) (0-2) % Lymph # (Auto) (1.2-4.9) X10*3/uL [place] # (Auto) (0.1-1.2) X10*3/uL Eos # (Auto) (0.0-0.4) X10*3/uL Baso # (Auto) (0.0-0.2) X10*3/uL Abs Immat Gran (auto) (0.00-0.03) X10*3/uL Absolute Neuts (auto) (2.0-8.3) x10*3/uL Absolute Nucleated RBC (0.0-0.012) X10*3/uL Nucleated RBC % (auto) (0.0-0.2) /100WBC Smear Tech's Comments VBG pH (7.32-7.43) VBG pCO2 mmHg VBG pO2 mmHg VBG HCO3 (22-26) mmol/L VBG O2 Saturation % VBG Base Excess mmol/L Sodium (135-145) mmol/L Potassium (3.3-5.1) mmol/L Chloride (96-108) mmol/L Carbon Dioxide (22-29) mmol/L Anion Gap (12-20) BUN (9-16) mg/dL Creatinine (0.5-1.4) mg/dL Estim Creat Clear Calc Estimated GFR Random Glucose (60-115) mg/dL Lactic Acid 2.5 H* (0.5-2.0) mmol/L Calcium (8.4-10.2) mg/dL Magnesium (1.6-2.6) mg/dL Total Bilirubin (0.0-1.0) mg/dL Direct Bilirubin (0.0-0.5) mg/dL AST (5-31) U/L ALT (0-31) U/L Alkaline Phosphatase (39-117) U/L Troponin I High Sens (<3.5-17.0) ng/L B-Natriuretic Peptide (<100) pg/mL Total Protein (6.5-8.0) g/dL Albumin (3.5-5.0) g/dL COVID-19 ([facility]) (Negative) COVID-19 Clin Com Influenza Type A (KISHAN) (Negative) Influenza Type B (KISHAN) (Negative) Influenza A & B Note Independent Interpretation I performed an independent interpretation of an: EKG and Plain X-Ray Interpretation: Rate: 104 Rhythm: sinus tachycardia [place]: normal Normal P waves. Normal DONALD. Normal QRS complex. ST T wave : normal no JAROCHO qTC: 473 prior studies: no acute ischemia The study has been interpreted contemporaneously by me. . Radiology Impression Discussion of test interpretation with radiology: I have reviewed the radiologist's reading. Independent Historian Clinical information obtained from an independent historian. History obtained from or confirmed by: EMS External Record Review External record reviewed: Inpatient record Critical Care Time Critical Care Time Critical Care Time: Yes Total Critical Care Time: 60 Attestation: hour long neb, IV steroids, IV magnesium, repeat VGB I attest to this time spent taking care of the patient Discharge Plan Discharge Clinical Impression: Acute exacerbation of chronic obstructive pulmonary disease Patient Disposition: Admitted As Inpatient
[2023-06-09] MEDS: Albuterol Sulfate 7.5 MG, Albuterol Sulfate (0.083%) 2.5 MG 10 MG INHALE (21:56)
[2023-06-09 21:59] VITALS: PULSE 101; RESP 20; O2SAT 100
[2023-06-09] MEDS: methylPREDNISolone Sod Succ 125 MG/2 ML VIAL IVPUSH (21:59)
[2023-06-09] MEDS: Magnesium Sulfate/H2O 2 GM/50 ML PIGGYBACK IV (21:59)
[2023-06-09 23:04] LABS: Venous Blood Gas Refer to POC result
[2023-06-09 23:05] LABS: VBG Base Excess 6.6 mmol/L; VBG HCO3 27 mmol/L (22-26); VBG pCO2 28 mmHg; VBG pO2 141 mmHg
[2023-06-09 23:08] LABS: Basophils Absolute Auto 0.1 X10*3/uL (0.0-0.2); Basophils Percent Auto 0.7 % (0-2); Eosinophils Absolute Auto 0.8 X10*3/uL (0.0-0.4); Eosinophils Percent Auto 5.7 % (0-4); Hemoglobin 11.2 g/dl (12.0-16.0); Imm Gran Abs Auto 0.06 X10*3/uL (0.00-0.03); Imm Gran Pct Auto 0.4 % (0.0-0.4); Lymphocytes Absolute Auto 3.7 X10*3/uL (1.2-4.9); Lymphocytes Percent Auto 25.4 % (20-40); MANUAL DIFF FLAG SCAN; Mean Corpuscular Hemoglobin 25.1 pg (27.0-33.0); Mean Corpuscular Volume 78.5 fL (80.0-98.0); NRBC Pct Auto 0.1 /100WBC (0.0-0.2); Neutrophils Absolute Auto 8.9 x10*3/uL (2.0-8.3); Neutrophils Percent Auto 60.8 % (45-73); PLT CLUMP 1; Red Blood Count 4.46 X10*6/uL (4.20-5.50); Red Cell Distribution Width 16.6 % (11.0-16.0); SCAN SMEAR FLAG 1
[2023-06-09 23:14] LABS: White Blood Count 14.6 X10*3/uL (4.8-10.8)
[2023-06-09 23:14] LABS: COVID-19 Test Negative (Negative); IDNOW Serial# 16C4AD1C
[2023-06-09 23:15] LABS: IDNOW Serial# 55D5AD1C; Influenza A Negative (Negative); Influenza B2 Negative (Negative)
[2023-06-09 23:16] LABS: Alanine Aminotransferase 24 U/L (0-31); Albumin Level 3.8 g/dL (3.5-5.0); Alkaline Phosphatase 80 U/L (39-117); Anion Gap 14 (12-20); Aspartate Amino Transferase 14 U/L (5-31); Bilirubin Direct 0.1 mg/dL (0.0-0.5); Bilirubin Total 0.3 mg/dL (0.0-1.0); Blood Urea Nitrogen 7 mg/dL (9-16); Calcium 9.3 mg/dL (8.4-10.2); Carbon Dioxide 27 mmol/L (22-29); Chloride 101 mmol/L (96-108); Creatinine Clr Calc Pharmacy 116.4; Estimated Glomerular Filt Rate > 60; Glucose Random 148 mg/dL (60-115); Magnesium 2.2 mg/dL (1.6-2.6); Potassium 3.9 mmol/L (3.3-5.1); Sodium 138 mmol/L (135-145); Total Protein 6.6 g/dL (6.5-8.0)
[2023-06-09 23:24] LABS: Troponin-I High Sensitivity < 2.7 ng/L (<3.5-17.0)
[2023-06-09 23:27] LABS: SLIDE REVIEW VERIFIED
[2023-06-09 23:31] LABS: B Type Natriuretic Peptide < 10 pg/mL (<100)
--- NOTE | 2023-06-09 23:38 | PM.IMHP ---
History of Present Illness Date of Service: 06/09/23 Chief Complaint: Dyspnea This is a 42-year-old female with pertinent history of mood disorder, gastroesophageal reflux disease, tobacco use disorder, chronic hypoxemic respiratory failure due to COPD on 3 L supplemental oxygen who presents to the emergency department for evaluation of dyspnea. Patient states that about 3 days prior to presentation, she started having dyspnea which was worse with exertion. It was progressive and associated cough with whitish sputum. Endorses wheezing. Patient tried her home inhaler without relief. No sick contacts. Denies fever, chills, chest discomfort, palpitations, abdominal pain, changes in urinary or bowel habits. Of note, patient was recently admitted for COPD exacerbation on 04/23/2023 and discharged on 04/25/2023. Patient states she quit smoking about 5 months ago. In the emergency department, patient with continued wheezing despite multiple DuoNeb treatments and requiring 4 L supplemental oxygen Review of Systems Constitutional: Constitutional: Reports fatigue Cardiovascular: Cardiovascular: Reports dyspnea on exertion Respiratory: Respiratory: Reports cough, Reports dyspnea on exertion and Reports wheezing Gastrointestinal: Gastrointestinal: Reports no additional gastrointestinal complaints Genitourinary: Genitourinary: Reports no additional female genitourinary complaints Endocrine: Endocrine: Reports fatigue Allergic/Immunologic: Allergic/Immunologic: Reports wheezing [facility] Medical History Acute exacerbation of chronic obstructive airways disease Abdominal pain Asthma with exacerbation Lower extremity edema Pneumonia Sepsis Acute exacerbation of COPD with asthma Acute respiratory failure with hypoxia Asthmaticus, status Chronic lung disease ILD (interstitial lung disease) Panic attack as reaction to stress Recurrent major depression Generalized anxiety disorder Morbid obesity Sinus infection Disc herniation H. pylori infection Depression Migraine Asthma Surgical History History of Social History Household Members: Family Housing: Apartment Housing Other:: 2nd fl Do you presently have visiting nurse or other home services: Yes Alcohol intake: never Comment: Pt refusing bed/chair alarm- steady on feet, 1:1 Sitter Patient Tobacco Use Status: Former Tobacco user Quit Date: 11/14/22 Tobacco use type: Cigarette Cigarette Packs Per Day: 2 Cigarettes Per Day: 5 e-Cigarette/Vaping Use: Never Used Second Hand Smoke Exposure: Yes Advance Directives: Yes Advance Directives on File: Yes Advance Directives Date on File: 05/12/22 Nutrition Risks: No Nutritional Risk service: No Current occupational status: unemployed Meds Allergies Allergy/AdvReac Type Severity Reaction Status Date / Time promethazine [From PHENERGAN] Allergy Unknown ITCHING Verified 04/23/23 10:17 egg Allergy Hives Verified 04/23/23 10:17 codeine [CODEINE] AdvReac Unknown STOMACH Verified 04/23/23 10:17 UPSET morphine [MORPHINE] AdvReac Unknown MORE PAIN Verified 04/23/23 10:17 Home Medications Medication Instructions Recorded Confirmed Last Taken Type acetaminophen 325 mg tablet 650 mg PO Q6H PRN Pain 11/16/22 04/23/23 Unknown History (Tylenol) albuterol sulfate 2.5 mg/3 mL 2.5 mg inhalation Q6H PRN wheezing 11/16/22 04/23/23 Unknown History (0.083 %) solution for nebulization albuterol sulfate 90 mcg/actuation 2 puff inhalation Q6H 11/16/22 04/23/23 Unknown History aerosol inhaler (Ventolin HFA) budesonide-formoterol HFA 160 2 puff inhalation BID 11/16/22 04/23/23 11/15/22 History mcg-4.5 mcg/actuation aerosol inhaler (Symbicort) cyanocobalamin (vitamin B-12) 1,000 mcg sublingual DAILY 11/16/22 04/23/23 11/15/22 History 1,000 mcg sublingual tablet dicyclomine 10 mg capsule 20 mg PO Q8H PRN Abdominal Pain 11/16/22 04/23/23 Unknown History gabapentin 100 mg capsule 100 mg PO BID PRN Pain 11/16/22 04/23/23 Unknown History gabapentin 400 mg capsule 800 mg PO BEDTIME 11/16/22 04/23/23 11/15/22 History mirtazapine 15 mg tablet 15 mg PO BEDTIME 11/16/22 04/23/23 11/15/22 History montelukast 10 mg tablet 10 mg PO BEDTIME 11/16/22 04/23/23 11/15/22 History nicotine 21 mg/24 hr daily 1 patch topical DAILY Nicotine 07/04/23/23 11/15/22 History transdermal patch Cravings pantoprazole 40 mg tablet,delayed 40 mg PO BID@0630,1630 11/16/22 04/23/23 11/15/22 History release polyethylene glycol 3350 17 gram 17 g PO DAILY PRN Constipation 11/16/22 04/23/23 Unknown History oral powder packet prazosin 2 mg capsule 2 mg PO BEDTIME 11/16/22 04/23/23 11/15/22 History prazosin 5 mg capsule (Minipress) 5 mg PO BEDTIME 11/16/22 04/23/23 11/15/22 History riboflavin (vitamin B2) 100 mg 200 mg PO BID 11/16/22 04/23/23 11/15/22 History tablet (Vitamin B-2) sumatriptan succinate 25 mg tablet 25 mg PO DAILY PRN Migraine 11/16/22 04/23/23 Unknown History Headache bupropion HCl 150 mg 24 hr tablet, 300 mg PO DAILY 02/05/23 04/23/23 Unknown History extended release meloxicam 15 mg tablet 15 mg PO DAILY PRN pain 03/01/23 04/23/23 Unknown History ondansetron 4 mg disintegrating 4 mg PO Q8H PRN nausea/vomiting 03/01/23 04/23/23 Unknown History tablet triamcinolone acetonide 55 mcg 1 spray intranasal DAILY 03/01/23 04/23/23 Unknown History nasal spray aerosol duloxetine 20 mg capsule,delayed 20 mg PO DAILY 04/23/23 04/23/23 Unknown History release hydroxyzine HCl 50 mg tablet 50 mg PO QID PRN Anxiety 04/23/23 04/23/23 Unknown History hydroxyzine pamoate 50 mg capsule 100 mg PO BEDTIME PRN Insomnia 04/23/23 04/23/23 Unknown History metformin 500 mg tablet 500 mg PO BIDWM 04/23/23 04/23/23 Unknown History nicotine (polacrilex) 4 mg buccal 4 mg buccal Q2H PRN Nicotine 04/23/23 04/23/23 Unknown History lozenge Cravings paroxetine HCl 20 mg tablet 20 mg PO BEDTIME 04/23/23 04/23/23 Unknown History Physical Exam Vital Signs and Narrative: Vital Signs: Last Vital Signs Temp 98.1 F 06/09/23 21:32 Pulse 101 H 06/09/23 21:59 Resp 20 06/09/23 21:59 BP 118/77 06/09/23 21:32 Pulse Ox 100 06/09/23 21:32 O2 Del Method Nasal Cannula 06/09/23 21:32 O2 Flow Rate 4 06/09/23 21:32 BMI result Body Mass Index 40.7 Middle-aged female lying in bed in mild distress on supplemental oxygen Neck supple, no JVD Tachycardic with regular rhythm, S1-S2 heard Bilateral wheezing appreciated Abdomen soft nontender, no guarding, no rigidity Patient is awake, alert and oriented to self, place, time and person ; no focal motor deficit Psych: Normal mood No pedal edema Results Labs 06/10/23 03:41 06/10/23 03:41 Labs: Laboratory Results - last 24 hr 06/09/23 06/09/23 06/09/23 22:52 22:53 22:57 MCV 78.5 L MCH 25.1 L MCHC 32.0 RDW 16.6 H Plt Count TNP MPV 10.0 Immature Gran % (Auto) 0.4 Neut % (Auto) 60.8 Lymph % (Auto) 25.4 [place] % (Auto) 7.0 Eos % (Auto) 5.7 H Baso % (Auto) 0.7 Lymph # (Auto) 3.7 [place] # (Auto) 1.0 Eos # (Auto) 0.8 H Baso # (Auto) 0.1 Abs Immat Gran (auto) 0.06 H Absolute Neuts (auto) 8.9 H Absolute Nucleated RBC 0.020 H Nucleated RBC % (auto) 0.1 Smear Tech's Comments VERIFIED VBG pH 7.60 H* VBG pCO2 28 VBG pO2 141 VBG HCO3 27 H VBG O2 Saturation 99.0 VBG Base Excess 6.6 Anion Gap 14 Estim Creat Clear Calc 116.4 Estimated GFR > 60 Random Glucose 148 H Calcium 9.3 Magnesium 2.2 Total Bilirubin 0.3 Direct Bilirubin 0.1 AST 14 ALT 24 Alkaline Phosphatase 80 Troponin I High Sens < 2.7 B-Natriuretic Peptide < 10 Total Protein 6.6 Albumin 3.8 COVID-19 ([facility]) Negative COVID-19 Clin Com See Note Influenza Type A (KISHAN) Negative Influenza Type B (KISHAN) Negative Influenza A & B Note See Note Imaging Radiologist's Impressions: Impressions Chest X-Ray 06/09/23 21:35 IMPRESSION: No significant change when compared to 05/21/2023 with redemonstration of at least moderate peribronchial thickening. Assessment and Plan (1) Acute exacerbation of chronic obstructive pulmonary disease: Status: Acute Plan This is a 42-year-old female with pertinent history of mood disorder, gastroesophageal reflux disease, tobacco use disorder, chronic hypoxemic respiratory failure due to COPD on 2 L supplemental oxygen who presents to the emergency department for evaluation of dyspnea. #. Acute on chronic hypoxemic respiratory failure due to acute exacerbation of COPD -Scheduled and p.r.n. DuoNebs. Initiating systemic steroids. Continue home inhaler. Also initiating azithromycin for pleiotropic effect. Consulting pulmonology for recurrent COPD exacerbation #. Kqa-hzyeyxj-eyjurvgdr diabetes mellitus: Initiating Accu-Cheks with sliding scale insulin #. Lactic acidosis due to albuterol use and hypoxia, not due to sepsis #. Mood disorder. Continue home mood stabilizers #. Tobacco use disorder. Quit 5 months ago #. Chronic normocytic anemia #. Obesity: Counseled regarding diet and exercise Med rec pending DVT prophylaxis: Lovenox Full code Regular diet Admit as inpatient and will require two night minimum hospital stay for supplemental oxygen (as above), which is not possible in a lesser acute setting. Quality Stroke Does the patient have a stroke diagnosis?: No VTE Prior VTE?: No VTE Risk Level:: Medical - moderate - high VTE Device Contraindication: Treatment Not Indicated VTE Drug Contraindication: N/A - Med Ordered
[2023-06-09 23:48] LABS: Lactic Acid 2.5 mmol/L (0.5-2.0)
[2023-06-10] VITALS (10 sets, daily range): BP systolic 102–178; BP diastolic 60–85; PULSE 100–114; RESP 13–20; TEMP 36.4–36.9; O2SAT 95–100; BMI 48.4
[2023-06-10 00:01] LABS: Venous Blood Gas Refer to POC result
[2023-06-10] MEDS: cefTRIAXone sodium 1 GM in 0.9 % Sodium Chloride 50 ML IV (00:06)
[2023-06-10] MEDS: 0.9 % Sodium Chloride Flush 3 ML SYRINGE IVFLUSH ×4 (00:07→23:51)
[2023-06-10 00:08] LABS: VBG Base Excess 4.6 mmol/L; VBG HCO3 28 mmol/L (22-26); VBG pCO2 39 mmHg; VBG pH 7.46 (7.32-7.43); VBG pO2 100 mmHg
[2023-06-10 01:19] LABS: Reflex Lactate? Lactic Acid Added
[2023-06-10] MEDS: Azithromycin 500 MG in 0.9 % Sodium Chloride 250 ML 125 MG IV ×2 (01:32→19:54)
[2023-06-10 02:01] LABS: ~Lactic Acid-LAB USE ONLY 3.3 mmol/L (0.5-2.0)
[2023-06-10 03:33] LABS: Reflex Lactate? 2 Y
[2023-06-10 03:47] LABS: Basophils Percent Auto 0.3 % (0-2); Eosinophils Percent Auto 0.1 % (0-4); Hematocrit 34.6 % (37.0-47.0); Hemoglobin 10.9 g/dl (12.0-16.0); Imm Gran Abs Auto 0.04 X10*3/uL (0.00-0.03); Imm Gran Pct Auto 0.3 % (0.0-0.4); Lymphocytes Absolute Auto 0.5 X10*3/uL (1.2-4.9); Lymphocytes Percent Auto 3.3 % (20-40); MANUAL DIFF FLAG SCAN; Mean Corpuscular HGB Conc 31.5 g/dl (31.0-35.0); Mean Corpuscular Hemoglobin 25.1 pg (27.0-33.0); Mean Corpuscular Volume 79.5 fL (80.0-98.0); Mean Platelet Volume 9.3 fL (9.4-12.3); Monocytes Absolute Auto 0.1 X10*3/uL (0.1-1.2); Monocytes Percent Auto 0.4 % (2-11); Neutrophils Absolute Auto 13.7 x10*3/uL (2.0-8.3); Neutrophils Percent Auto 95.6 % (45-73); Platelet Count 326 X10*3/uL (160-400); Red Blood Count 4.35 X10*6/uL (4.20-5.50); Red Cell Distribution Width 16.2 % (11.0-16.0); SCAN SMEAR FLAG 1; White Blood Count 14.3 X10*3/uL (4.8-10.8)
[2023-06-10 04:00] LABS: Anion Gap 16 (12-20); Blood Urea Nitrogen 7 mg/dL (9-16); Calcium 8.8 mg/dL (8.4-10.2); Carbon Dioxide 23 mmol/L (22-29); Chloride 103 mmol/L (96-108); Creatinine Clr Calc Pharmacy 114.8; Estimated Glomerular Filt Rate > 60; Glucose Random 219 mg/dL (60-115); Potassium 4.4 mmol/L (3.3-5.1); Sodium 138 mmol/L (135-145)
[2023-06-10] MEDS: hydrOXYzine HCL 50 MG TABLET PO (05:17)
[2023-06-10] MEDS: Albuterol/Iprat 2.5/0.5MG 3 ML AMPUL.NEB INHALE ×3 (07:16→19:21)
[2023-06-10 07:53] LABS: Glucose, Whole Blood 238 mg/dL (60-115)
[2023-06-10] MEDS: Insulin Lispro 100 UNIT/ML 3 ML VIAL SUBCUT ×4 (08:27→21:03)
--- NOTE | 2023-06-10 08:30 | PC.NURSE ---
medicated the pt with her insulin, pt is reporting a headache, pain at 8/10, pt only has a Tylenol ordered as of now offered it but pt refused. chargeback specialist
[2023-06-10] MEDS: Enoxaparin Sodium 40 MG/0.4 ML SYRINGE SUBCUT (09:08)
[2023-06-10] MEDS: methylPREDNISolone Sod Succ 40 MG/ML VIAL IVPUSH ×2 (09:08→19:51)
[2023-06-10 09:52] LABS: Procalcitonin < 0.02 ng/mL
--- NOTE | 2023-06-10 10:01 | PHA.MEDREC ---
Pharmacy Consult ? Medication Reconciliation Pharmacy has completed the medication reconciliation. Patient confirmed medication with help of recruit instructor.
--- NOTE | 2023-06-10 11:07 | PC.NURSE ---
Spoke to Vivian from [facility] and update given, also Vivian to fax over recent med list
[2023-06-10] MEDS: Acetaminophen 325 MG TABLET 650 MG PO (12:31)
[2023-06-10] MEDS: ondansetron HCL 4 MG/2 ML VIAL IVPUSH (12:32)
--- NOTE | 2023-06-10 12:36 | PC.NURSE ---
pt reports nausea and generalized body pain 01/02. pt medicated per JUN. pt breathing even and unlabored, resting in bed at this time.
--- NOTE | 2023-06-10 13:01 | PM.CNPUL ---
History of Present Illness History of Present Illness Consult date: 06/10/23 Chief complaint: Dyspnea Narrative: This is an inpatient pulmonary consultation. This is a 42-year-old female with pertinent history of mood disorder, gastroesophageal reflux disease, tobacco use disorder, chronic hypoxemic respiratory failure due to COPD on 3 L supplemental oxygen who presents to the emergency department for evaluation of dyspnea. Patient states that about 3 days prior to presentation, she started having dyspnea which was worse with exertion. It was progressive and associated cough with whitish sputum. Endorses wheezing. Patient tried her home inhaler without relief. No sick contacts. Denies fever, chills, chest discomfort, palpitations, abdominal pain, changes in urinary or bowel habits. Of note, patient was recently admitted for COPD exacerbation on 04/23/2023 and discharged on 04/25/2023. Patient states she quit smoking about 5 months ago. Explained to the patient that will go ahead and treat her this time and hopefully wean her off the oxygen. The patient should follow-up with outpatient pulmonary to try to minimize the frequent exacerbations and frequent hospital visits. I will have her office call her for an appointment. Review of Systems Constitutional: Constitutional: Reports fatigue Cardiovascular: Cardiovascular: Reports dyspnea on exertion Respiratory: Respiratory: Reports cough, Reports dyspnea on exertion and Reports wheezing Gastrointestinal: Gastrointestinal: Reports no additional gastrointestinal complaints Genitourinary: Genitourinary: Reports no additional female genitourinary complaints Endocrine: Endocrine: Reports fatigue Allergic/Immunologic: Allergic/Immunologic: Reports wheezing PMFSH Past Medical History Medical History Acute exacerbation of chronic obstructive airways disease Abdominal pain Asthma with exacerbation Lower extremity edema Pneumonia Sepsis Acute exacerbation of COPD with asthma Acute respiratory failure with hypoxia Asthmaticus, status Chronic lung disease ILD (interstitial lung disease) Panic attack as reaction to stress Recurrent major depression Generalized anxiety disorder Morbid obesity Sinus infection Disc herniation H. pylori infection Depression Migraine Asthma Surgical History Surgical History History of Social History Social History Household Members: Family Housing: Apartment Housing Other:: 2nd fl Do you presently have visiting nurse or other home services: Yes Alcohol intake: never Comment: Pt refusing bed/chair alarm- steady on feet, 1:1 Sitter Patient Tobacco Use Status: Former Tobacco user Quit Date: 11/14/22 Tobacco use type: Cigarette Cigarette Packs Per Day: 2 Cigarettes Per Day: 5 e-Cigarette/Vaping Use: Never Used Second Hand Smoke Exposure: Yes Advance Directives: Yes Advance Directives on File: Yes Advance Directives Date on File: 05/12/22 Nutrition Risks: No Nutritional Risk service: No Current occupational status: unemployed Meds Allergies Allergy/AdvReac Type Severity Reaction Status Date / Time promethazine [From PHENERGAN] Allergy Unknown ITCHING Verified 04/23/23 10:17 egg Allergy Hives Verified 04/23/23 10:17 codeine [CODEINE] AdvReac Unknown STOMACH Verified 04/23/23 10:17 UPSET morphine [MORPHINE] AdvReac Unknown MORE PAIN Verified 04/23/23 10:17 Active Medications: Current Medications Acetaminophen (Acetaminophen 325 Mg Tablet) 650 mg PO Q6H PRN PRN Reason: Pain, Mild (Pain Scale 1-3) Last Admin: 06/10/23 12:31 Dose: 650 mg Albuterol/Ipratropium (Albuterol/Iprat 2.5/0.5mg 3 Ml Ampul.Neb) 3 ml INHALE RQ4H WHILE AWAKE [facility] Last Admin: 06/10/23 11:01 Dose: 3 ml Albuterol/Ipratropium (Albuterol/Iprat 2.5/0.5mg 3 Ml Ampul.Neb) 3 ml INHALE Q4H PRN PRN Reason: Wheezing Benzonatate (Benzonatate 100 Mg Capsule) 200 mg PO TID PRN PRN Reason: Cough Dextrose (Dextrose 50 % 25 Gm/50 Ml Syringe) 25 gm IVPUSH Q15M PRN; Protocol PRN Reason: per Hypoglycemia Standing Ord. Enoxaparin Sodium (Enoxaparin Sodium 40 Mg/0.4 Ml Syringe) 40 mg SUBCUT Q24H [facility] Last Admin: 06/10/23 09:08 Dose: 40 mg Glucose (Glucose Gel 15 Gm Gel..Gram.) 15 gm PO Q15M PRN; Protocol PRN Reason: per Hypoglycemia Standing Ord. Azithromycin 500 mg/ Sodium (Chloride) 250 mls @ 125 mls/hr IV Q24H [facility] Insulin Human Lispro (Insulin Lispro 100 Unit/Ml 3 Ml Vial) 0 unit SUBCUT QIDACHS [facility]; Protocol Last Admin: 06/10/23 08:27 Dose: 4 unit Melatonin (Melatonin 3 Mg Tablet) 6 mg PO BEDTIME PRN PRN Reason: Insomnia Methylprednisolone Sodium Succinate (Methylprednisolone Sod Succ 40 Mg/Ml Vial) 40 mg IVPUSH Q12H [facility] Last Admin: 06/10/23 09:08 Dose: 40 mg Ondansetron HCl (Ondansetron Hcl 4 Mg/2 Ml Vial) 4 mg IVPUSH Q8H PRN PRN Reason: Nausea and Vomiting Last Admin: 06/10/23 12:32 Dose: 4 mg Sodium Chloride (0.9 % Sodium Chloride Flush 3 Ml Syringe) [facility] Last Admin: 06/10/23 08:27 Dose: 3 ml Home Medications Medication Instructions Recorded Confirmed Last Taken Type albuterol sulfate 2.5 mg/3 mL 2.5 mg inhalation Q6H PRN wheezing 11/16/22 06/10/23 06/09/23 History (0.083 %) solution for nebulization albuterol sulfate 90 mcg/actuation 2 puff inhalation Q6H 11/16/22 06/10/23 06/09/23 History aerosol inhaler (Ventolin HFA) budesonide-formoterol HFA 160 2 puff inhalation BID 11/16/22 06/10/23 06/09/23 History mcg-4.5 mcg/actuation aerosol inhaler (Symbicort) cyanocobalamin (vitamin B-12) 1,000 mcg sublingual DAILY 11/16/22 06/10/23 06/09/23 History 1,000 mcg sublingual tablet dicyclomine 10 mg capsule 20 mg PO Q8H PRN Abdominal Pain 11/16/22 06/10/23 06/09/23 History gabapentin 100 mg capsule 100 mg PO BID PRN Pain (Scale 11/16/22 06/10/23 06/09/23 History Score 4-6) gabapentin 400 mg capsule 800 mg PO BEDTIME 11/16/22 06/10/23 06/09/23 History mirtazapine 15 mg tablet 22.5 mg PO BEDTIME 11/16/22 06/10/23 06/09/23 History montelukast 10 mg tablet 10 mg PO BEDTIME 11/16/22 06/10/23 06/09/23 History pantoprazole 40 mg tablet,delayed 40 mg PO BID@0630,1630 11/16/22 06/10/23 06/09/23 History release polyethylene glycol 3350 17 gram 17 g PO DAILY PRN Constipation 11/16/22 06/10/23 06/09/23 History oral powder packet prazosin 5 mg capsule (Minipress) 5 mg PO BEDTIME 11/16/22 06/10/23 06/09/23 History sumatriptan succinate 25 mg tablet 25 mg PO DAILY PRN Migraine 11/16/22 06/10/23 06/09/23 History Headache bupropion HCl 150 mg 24 hr tablet, 150 mg PO DAILY 02/05/23 06/10/23 06/09/23 History extended release meloxicam 15 mg tablet 15 mg PO DAILY PRN pain 03/01/23 06/10/23 06/09/23 History ondansetron 4 mg disintegrating 4 mg PO Q8H PRN nausea/vomiting 03/01/23 06/10/23 06/09/23 History tablet triamcinolone acetonide 55 mcg 1 spray intranasal DAILY 03/01/23 06/10/23 06/09/23 History nasal spray aerosol duloxetine 20 mg capsule,delayed 20 mg PO BID 04/23/23 06/10/23 06/09/23 History release hydroxyzine HCl 50 mg tablet 50 mg PO BID PRN Anxiety 04/23/23 06/10/23 06/09/23 History hydroxyzine pamoate 50 mg capsule 50 mg PO BEDTIME PRN Insomnia 04/23/23 06/10/23 06/09/23 History metformin 750 mg tablet,extended 750 mg PO BID 06/10/23 06/10/23 06/09/23 History release 24 hr Physical Exam Vital Signs: Vital Signs: Last Vital Signs Temp 98.3 F 06/10/23 07:29 Pulse 103 H 06/10/23 11:02 Resp 20 06/10/23 11:02 BP 137/69 06/10/23 07:29 Pulse Ox 97 06/10/23 07:29 O2 Del Method Room Air 06/10/23 07:29 O2 Flow Rate 3 06/10/23 06:43 BMI result Body Mass Index 40.7 Appearance: Alert. Oriented X3. mild acute distress. Eyes: Pupils equal, round and reactive to light. ENT: Pharynx normal. Neck: Normal inspection. Neck supple. CVS: tachycardic heart rate and rhythm. Pulses normal. Respiratory: Mildrespiratory distress - retractions and tachypnea. Breath sounds diffuse insp and exp wheezes Abdomen: Soft and nontender. Skin: Skin warm and dry. Normal skin color. Normal skin turgor. Extremities: No lower extremity edema. R anterior rod mild bruising Neuro: Oriented X 3. No motor deficit. No sensory deficit. Results Laboratory Findings 06/10/23 03:41 06/10/23 03:41 Abnormal lab findings: Abnormal Labs 06/09/23 06/09/23 06/09/23 22:53 22:57 23:12 WBC 14.6 H Hgb 11.2 L Hct 35.0 L MCV 78.5 L MCH 25.1 L RDW 16.6 H MPV Neut % (Auto) Lymph % (Auto) Braxton % (Auto) Eos % (Auto) 5.7 H Lymph # (Auto) Eos # (Auto) 0.8 H Abs Immat Gran (auto) 0.06 H Absolute Neuts (auto) 8.9 H Absolute Nucleated RBC 0.020 H VBG pH 7.60 H* VBG HCO3 27 H BUN 7 L POC Glucose Random Glucose 148 H Lactic Acid 2.5 H* Lactic Acid F/U @ 2Hr Lactic Acid F/U @ 4Hr 06/09/23 06/10/23 06/10/23 23:58 01:30 03:41 WBC 14.3 H Hgb 10.9 L Hct 34.6 L MCV 79.5 L MCH 25.1 L RDW 16.2 H MPV 9.3 L Neut % (Auto) 95.6 H Lymph % (Auto) 3.3 L Braxton % (Auto) 0.4 L Eos % (Auto) Lymph # (Auto) 0.5 L Eos # (Auto) Abs Immat Gran (auto) 0.04 H Absolute Neuts (auto) 13.7 H Absolute Nucleated RBC VBG pH 7.46 H VBG HCO3 28 H BUN 7 L POC Glucose Random Glucose 219 H Lactic Acid Lactic Acid F/U @ 2Hr 3.3 H* Lactic Acid F/U @ 4Hr 3.0 H* 06/10/23 07:37 WBC Hgb Hct MCV MCH RDW MPV Neut % (Auto) Lymph % (Auto) Braxton % (Auto) Eos % (Auto) Lymph # (Auto) Eos # (Auto) Abs Immat Gran (auto) Absolute Neuts (auto) Absolute Nucleated RBC VBG pH VBG HCO3 BUN POC Glucose 238 H Random Glucose Lactic Acid Lactic Acid F/U @ 2Hr Lactic Acid F/U @ 4Hr Assessment and Plan (1) Acute exacerbation of chronic obstructive pulmonary disease: Status: Acute Plan Continue with nebulized therapy Tobacco cessation Would be likely ready for oral cortico-steroids by tomorrow Deescalate antibiotics to oral antibiotics by tomorrow Will need to have a set up follow-up Pulmonary visit to minimize frequent hospital visits Procedures Date of Service Date of Service: 06/10/23
[2023-06-10 13:02] LABS: Glucose, Whole Blood 202 mg/dL (60-115)
--- NOTE | 2023-06-10 14:03 | MHC.CM.PN ---
pt lives with hubsnad has own ride [employer] has a lock box with [facility] 02 dc plan home
--- NOTE | 2023-06-10 14:46 | P.PNIM_ITS ---
Subjective Subjective Date of Service: 06/10/23 Interval History: This history was taken in [place] from the patient. Coughing white sputum Dyspnea + wheezing improving Review of Systems Review of Systems: Yes all other systems are reviewed and are negative Physical Exam 2 Vital Signs: Vital Signs: Last Vital Signs Temp 98.5 F 06/10/23 13:41 Pulse 114 H 06/10/23 13:41 Resp 13 06/10/23 13:41 BP 135/75 06/10/23 13:41 Pulse Ox 100 06/10/23 13:41 O2 Del Method Nasal Cannula 06/10/23 13:41 O2 Flow Rate 2 06/10/23 13:41 BMI result Body Mass Index 40.7 Gen: in no acute distress HEENT: sclera anicteric, moist mucus membranes Neck: supple Lungs: expiratory wheezing Heart: regular rate and rhythm, no murmurs Abd: soft, non-tender, non-distended, obese Ext: no edema Skin: warm/well-perfused Neuro: alert and oriented x3, no focal findings Psych: appropriate affect Objective Data Active Medications Acetaminophen (Acetaminophen 325 Mg Tablet) 650 mg PO Q6H PRN PRN Reason: Pain, Mild (Pain Scale 1-3) Last Admin: 06/10/23 12:31 Dose: 650 mg Documented By: NIMISHA Albuterol/Ipratropium (Albuterol/Iprat 2.5/0.5mg 3 Ml Ampul.Neb) 3 ml INHALE RQ4H WHILE AWAKE [facility] Last Admin: 06/10/23 11:01 Dose: 3 ml Documented By: SUSHMA Albuterol/Ipratropium (Albuterol/Iprat 2.5/0.5mg 3 Ml Ampul.Neb) 3 ml INHALE Q4H PRN PRN Reason: Wheezing Benzonatate (Benzonatate 100 Mg Capsule) 200 mg PO TID PRN PRN Reason: Cough Dextrose (Dextrose 50 % 25 Gm/50 Ml Syringe) 25 gm IVPUSH Q15M PRN; Protocol PRN Reason: per Hypoglycemia Standing Ord. Enoxaparin Sodium (Enoxaparin Sodium 40 Mg/0.4 Ml Syringe) 40 mg SUBCUT Q24H [facility] Last Admin: 06/10/23 09:08 Dose: 40 mg Documented By: ELIZABETH Glucose (Glucose Gel 15 Gm Gel..Gram.) 15 gm PO Q15M PRN; Protocol PRN Reason: per Hypoglycemia Standing Ord. Azithromycin 500 mg/ Sodium (Chloride) 250 mls @ 125 mls/hr IV Q24H [facility] Insulin Human Lispro (Insulin Lispro 100 Unit/Ml 3 Ml Vial) 0 unit SUBCUT QIDACHS [facility]; Protocol Last Admin: 06/10/23 13:11 Dose: 4 unit Documented By: LEESA Melatonin (Melatonin 3 Mg Tablet) 6 mg PO BEDTIME PRN PRN Reason: Insomnia Methylprednisolone Sodium Succinate (Methylprednisolone Sod Succ 40 Mg/Ml Vial) 40 mg IVPUSH Q12H [facility] Last Admin: 06/10/23 09:08 Dose: 40 mg Documented By: ELIZABETH Ondansetron HCl (Ondansetron Hcl 4 Mg/2 Ml Vial) 4 mg IVPUSH Q8H PRN PRN Reason: Nausea and Vomiting Last Admin: 06/10/23 12:32 Dose: 4 mg Documented By: NIMISHA Sodium Chloride (0.9 % Sodium Chloride Flush 3 Ml Syringe) 3 ml IVFLUSH QSHIFT [facility] Last Admin: 06/10/23 08:27 Dose: 3 ml Documented By: ELIZABETH Labs 06/10/23 03:41 06/10/23 03:41 Labs: Laboratory Results - last 24 hr 06/09/23 06/09/23 06/09/23 22:52 22:53 22:57 MCV 78.5 L MCH 25.1 L MCHC 32.0 RDW 16.6 H Plt Count TNP MPV 10.0 Immature Gran % (Auto) 0.4 Neut % (Auto) 60.8 Lymph % (Auto) 25.4 Bonner % (Auto) 7.0 Eos % (Auto) 5.7 H Baso % (Auto) 0.7 Lymph # (Auto) 3.7 Bonner # (Auto) 1.0 Eos # (Auto) 0.8 H Baso # (Auto) 0.1 Abs Immat Gran (auto) 0.06 H Absolute Neuts (auto) 8.9 H Absolute Nucleated RBC 0.020 H Nucleated RBC % (auto) 0.1 Smear Tech's Comments VERIFIED VBG pH 7.60 H* VBG pCO2 28 VBG pO2 141 VBG HCO3 27 H VBG O2 Saturation 99.0 VBG Base Excess 6.6 Anion Gap 14 Estim Creat Clear Calc 116.4 Estimated GFR > 60 POC Glucose Random Glucose 148 H Lactic Acid Lactic Acid F/U @ 2Hr Lactic Acid F/U @ 4Hr Calcium 9.3 Magnesium 2.2 Total Bilirubin 0.3 Direct Bilirubin 0.1 AST 14 ALT 24 Alkaline Phosphatase 80 Troponin I High Sens < 2.7 B-Natriuretic Peptide < 10 Total Protein 6.6 Albumin 3.8 Procalcitonin COVID-19 ([facility]) Negative COVID-19 Clin Com See Note Influenza Type A ([facility]) Negative Influenza Type B ([facility]) Negative Influenza A & B Note See Note 06/09/23 06/09/23 06/10/23 23:12 23:58 01:30 MCV MCH MCHC RDW Plt Count MPV Immature Gran % (Auto) Neut % (Auto) Lymph % (Auto) Bonner % (Auto) Eos % (Auto) Baso % (Auto) Lymph # (Auto) Bonner # (Auto) Eos # (Auto) Baso # (Auto) Abs Immat Gran (auto) Absolute Neuts (auto) Absolute Nucleated RBC Nucleated RBC % (auto) Smear Tech's Comments VBG pH 7.46 H VBG pCO2 39 VBG pO2 100 VBG HCO3 28 H VBG O2 Saturation 99.0 VBG Base Excess 4.6 Anion Gap Estim Creat Clear Calc Estimated GFR POC Glucose Random Glucose Lactic Acid 2.5 H* Lactic Acid F/U @ 2Hr 3.3 H* Lactic Acid F/U @ 4Hr Calcium Magnesium Total Bilirubin Direct Bilirubin AST ALT Alkaline Phosphatase Troponin I High Sens B-Natriuretic Peptide Total Protein Albumin Procalcitonin COVID-19 ([facility]) COVID-19 Clin Com Influenza Type A ([facility]) Influenza Type B ([facility]) Influenza A & B Note 06/10/23 06/10/23 06/10/23 03:41 07:37 12:57 MCV 79.5 L MCH 25.1 L MCHC 31.5 RDW 16.2 H Plt Count 326 MPV 9.3 L Immature Gran % (Auto) 0.3 Neut % (Auto) 95.6 H Lymph % (Auto) 3.3 L Bonner % (Auto) 0.4 L Eos % (Auto) 0.1 Baso % (Auto) 0.3 Lymph # (Auto) 0.5 L Bonner # (Auto) 0.1 Eos # (Auto) 0.0 Baso # (Auto) 0.0 Abs Immat Gran (auto) 0.04 H Absolute Neuts (auto) 13.7 H Absolute Nucleated RBC 0.000 Nucleated RBC % (auto) 0.0 Smear Tech's Comments VBG pH VBG pCO2 VBG pO2 VBG HCO3 VBG O2 Saturation VBG Base Excess Anion Gap 16 Estim Creat Clear Calc 114.8 Estimated GFR > 60 POC Glucose 238 H 202 H Random Glucose 219 H Lactic Acid Lactic Acid F/U @ 2Hr Lactic Acid F/U @ 4Hr 3.0 H* Calcium 8.8 Magnesium Total Bilirubin Direct Bilirubin AST ALT Alkaline Phosphatase Troponin I High Sens B-Natriuretic Peptide Total Protein Albumin Procalcitonin < 0.02 COVID-19 ([facility]) COVID-19 Clin Com Influenza Type A ([facility]) Influenza Type B ([facility]) Influenza A & B Note Assessment and Plan (1) Acute exacerbation of chronic obstructive pulmonary disease: Status: Acute Plan d2 42yo F with chronic hypoxia on 2L O2, COPD, tobacco abuse disorder presenting with dyspnea + productive cough, worsening hypoxia acute-chronic hypoxic resp failure due to acute COPD exac - methylprednisolone 2/15-, azithromcyin 2/15-, standing/prn nebs, sputum culture, Pulm consulted and will need outpt f/u, continue controller meds DM2 - hold MTF, sona-dose lispro mood disorder - continue mirtazapine, prazosin, hydroxyzine, duloxetine, bupropion neuropathy - duloxetine, gabapentin migraines - prn sumatriptan VTE ppx - LMWH dispo - possibly home tomorrow In my clinical judgment, the patient requires continued inpatient hospitalization for the following reasons: hypoxia Total time managing care of this patient today: 35 minutes. Quality Stroke Does the patient have a stroke diagnosis?: No VTE Prior VTE?: No VTE Risk Level:: Medical - moderate - high VTE Device Contraindication: Treatment Not Indicated VTE Drug Contraindication: N/A - Med Ordered
[2023-06-10 15:23] LABS: Glucose, Whole Blood 199 mg/dL (60-115)
[2023-06-10] MEDS: Omeprazole 20 MG CAPSULE.DR PO (16:37)
[2023-06-10] MEDS: Gabapentin 400 MG CAPSULE 800 MG PO (19:49)
[2023-06-10] MEDS: Montelukast Sodium 10 MG TABLET PO (19:50)
[2023-06-10] MEDS: Benzonatate 100 MG CAPSULE 200 MG PO (19:50)
[2023-06-10] MEDS: Prazosin HCL 5 MG CAPSULE PO (19:50)
[2023-06-10] MEDS: Mirtazapine 7.5 MG TABLET 22.5 MG PO (19:50)
[2023-06-10] MEDS: DULoxetine HCl 20 MG CAPSULE.DR PO (19:50)
[2023-06-10 20:15] LABS: Glucose, Whole Blood 199 mg/dL (60-115)
[2023-06-10] MEDS: SUMAtriptan succinate 25 MG TABLET PO (20:17)
[2023-06-11 00:21] VITALS: BP 158/86
[2023-06-11 02:44] VITALS: BP 153/84; PULSE 97; RESP 20; TEMP 36.1; O2SAT 98
[2023-06-11] MEDS: Omeprazole 20 MG CAPSULE.DR PO (06:31)
[2023-06-11 07:11] VITALS: BP 150/88; PULSE 88; RESP 20; TEMP 36.4; O2SAT 98
[2023-06-11 07:18] LABS: Glucose, Whole Blood 208 mg/dL (60-115)
[2023-06-11] MEDS: Fluticasone/Vilanterol 200/25 BLST.W.DEV 1 PUFF INHALE (07:42)
[2023-06-11] MEDS: Albuterol/Iprat 2.5/0.5MG 3 ML AMPUL.NEB INHALE ×2 (07:42→10:43)
[2023-06-11 07:44] VITALS: PULSE 93; RESP 20; O2SAT 99
[2023-06-11] MEDS: buPROPion HCl XL 150 MG TAB.ER.24H PO (08:43)
[2023-06-11] MEDS: DULoxetine HCl 20 MG CAPSULE.DR PO (08:43)
[2023-06-11] MEDS: Insulin Lispro 100 UNIT/ML 3 ML VIAL SUBCUT (08:43)
[2023-06-11] MEDS: 0.9 % Sodium Chloride Flush 3 ML SYRINGE IVFLUSH (08:43)
[2023-06-11] MEDS: methylPREDNISolone Sod Succ 40 MG/ML VIAL IVPUSH (08:43)
[2023-06-11] MEDS: Cyanocobalamin (Vitamin B-12) 1,000 MCG TABLET 1000 MCG PO (08:43)
[2023-06-11] MEDS: Enoxaparin Sodium 40 MG/0.4 ML SYRINGE SUBCUT (08:43)
--- NOTE | 2023-06-11 09:51 | P.F2F_ITS ---
Service Date Service Date: 06/11/23 Encounter Date of encounter: 06/11/23 Encounter: Dyspnea on Exertion,Gross Deconditioning, Impaired Bed Mobility, Impaired Gait Pattern, Impaired Safety ,Impaired Standing Balance, Impaired Transfer Ability Reasons for Services Signs and symptoms assessed: respiratory Reason for physical therapy: home safety and mobility, therapeutic exercises, gait/transfer training, assess need for DME, ADL training and energy conservation MD Overseeing Care: Tatum Magdaleno Homebound: Leaving the home is medically contraindicated at this time without the asist of a device and/or another person due th the listed conditions above and below. Reason homebound: shortness of breath with minimal effort Homebound supporting statement: Bed Mobility, Transfer Training,Gait Training,Stair Training, Therapeutic Activities, Therapeutic Exercise,Neuro Re-education, Patient Education, Safety,Balance Certification: Based on the above findings, I certify that this patient is confined to the home and needs intermittent retirement care, physical therapy and/or speech therapy, or continues to need occupational therapy. The patient is under my care, and I have initiated the establishment of the plan of care. The patient will be followed by a physician who will periodically review the plan of care. Time Spent With Patient Time: Total time managing care of this patient today ____ minutes.
--- NOTE | 2023-06-11 09:52 | P.DS_ITS ---
DS: Providers Provider Date of Service: 06/11/23 Date of admission: 06/09/23 23:36 Date of discharge: 06/11/23 Primary care physician: Tatum Magdaleno MD Consults: 06/09/23 23:43 Consult to Pulmonology Routine Consulting Provider[place] [facility] [place] Reason for consultation: recurrent copd exacerbations DS: Diagnosis Discharge Diagnosis (1) Acute exacerbation of chronic obstructive pulmonary disease: Status: Acute (2) Acute and chronic respiratory failure with hypoxia: Status: Resolved (3) Morbid obesity: Status: Inactive DS: Summary Hospital Course Hospital Course: From the history and physical by the admitting hospitalist, Dr Joycelyn Ram, 06/09/23: This is a 42-year-old female with pertinent history of mood disorder, gastroesophageal reflux disease, tobacco use disorder, chronic hypoxemic respiratory failure due to COPD on 3 L supplemental oxygen who presents to the e mergency department for evaluation of dyspnea. Patient states that about 3 days prior to presentation, she started having dyspnea which was worse with exertion. It was progressive and associated cough with whitish sputum. Endorses wheezing. Patient tried her home inhaler without relief. No sick contacts. Denies fever, chills, chest discomfort, palpitations, abdominal pain, changes in urinary or bowel habits. Of note, patient was recently admitted for COPD exacerbation on 04/23/2023 and discharged on 04/25/2023. Patient states she quit smoking about 5 months ago. In the emergency department, patient with continued wheezing despite multiple DuoNeb treatments and requiring 4 L supplemental oxygen 42yo F with chronic hypoxia on 2L O2, COPD, tobacco abuse disorder presenting with dyspnea + productive cough and worsening hypoxia. She was admitted to the hospitalist service and treated with IV methylprednisolone, IV azithromycin, and nebulized albuterol. She improved symptomatically and was weaned to her home dose of oxygen. Pulmonology was consulted and recommended outpatient follow-up. She was discharged home on 4 days of doxycycline plus 4 days of prednisone along with continuing controller meds. She was discharged home with [facility] services for home PT. acute-chronic hypoxi Time Attestation Discharge coordination time: Greater than 30 minutes Quality: Safe Use of Opioids Does Pt have an Active Cancer Diagnosis on the Problem List?: No Quality: Stroke Does the patient have a stroke diagnosis?: No Physical Exam Vital Signs: Vital Signs: Last Vital Signs Temp 97.6 F 06/11/23 07:11 Pulse 93 06/11/23 07:44 Resp 20 06/11/23 07:44 BP 150/88 H 06/11/23 07:11 Pulse Ox 98 06/11/23 07:11 O2 Del Method Nasal Cannula 06/11/23 07:11 O2 Flow Rate 2 06/11/23 07:11 BMI result Body Mass Index 48.4 Gen: in no acute distress HEENT: sclera anicteric, moist mucus membranes Neck: supple Lungs: diminished Heart: regular rate and rhythm, no murmurs Abd: soft, non-tender, non-distended, obes Ext: no edema Skin: warm/well-perfused Neuro: alert and oriented x3, no focal findings Psych: appropriate affect DS: Data Data Completed and Pending Completed studies during hospitalization [Text1]: Laboratory Results WBC 14.3 X10*3/uL (4.8-10.8) H 06/10/23 03:41 RBC 4.35 X10*6/uL (4.20-5.50) 06/10/23 03:41 Hgb 10.9 g/dl (12.0-16.0) L 06/10/23 03:41 Hct 34.6 % (37.0-47.0) L 06/10/23 03:41 MCV 79.5 fL (80.0-98.0) L 06/10/23 03:41 MCH 25.1 pg (27.0-33.0) L 06/10/23 03:41 MCHC 31.5 g/dl (31.0-35.0) 06/10/23 03:41 RDW 16.2 % (11.0-16.0) H 06/10/23 03:41 Plt Count 326 X10*3/uL (160-400) 06/10/23 03:41 MPV 9.3 fL (9.4-12.3) L 06/10/23 03:41 Immature Gran % (Auto) 0.3 % (0.0-0.4) 06/10/23 03:41 Neut % (Auto) 95.6 % (45-73) H 06/10/23 03:41 Lymph % (Auto) 3.3 % (20-40) L 06/10/23 03:41 [place] % (Auto) 0.4 % (2-11) L 06/10/23 03:41 Eos % (Auto) 0.1 % (0-4) 06/10/23 03:41 Baso % (Auto) 0.3 % (0-2) 06/10/23 03:41 Lymph # (Auto) 0.5 X10*3/uL (1.2-4.9) L 06/10/23 03:41 [place] # (Auto) 0.1 X10*3/uL (0.1-1.2) 06/10/23 03:41 Eos # (Auto) 0.0 X10*3/uL (0.0-0.4) 06/10/23 03:41 Baso # (Auto) 0.0 X10*3/uL (0.0-0.2) 06/10/23 03:41 Abs Immat Gran (auto) 0.04 X10*3/uL (0.00-0.03) H 06/10/23 03:41 Absolute Neuts (auto) 13.7 x10*3/uL (2.0-8.3) H 06/10/23 03:41 Absolute Nucleated RBC 0.000 X10*3/uL (0.0-0.012) 06/10/23 03:41 Nucleated RBC % (auto) 0.0 /100WBC (0.0-0.2) 06/10/23 03:41 Smear Tech's Comments VERIFIED 06/09/23 22:53 VBG pH 7.46 (7.32-7.43) H 06/09/23 23:58 VBG pCO2 39 mmHg 06/09/23 23:58 VBG pO2 100 mmHg 06/09/23 23:58 VBG HCO3 28 mmol/L (22-26) H 06/09/23 23:58 VBG O2 Saturation 99.0 % 06/09/23 23:58 VBG Base Excess 4.6 mmol/L 06/09/23 23:58 Sodium 138 mmol/L (135-145) 06/10/23 03:41 Potassium 4.4 mmol/L (3.3-5.1) 06/10/23 03:41 Chloride 103 mmol/L (96-108) 06/10/23 03:41 Carbon Dioxide 23 mmol/L (22-29) 06/10/23 03:41 Anion Gap 16 (12-20) 06/10/23 03:41 BUN 7 mg/dL (9-16) L 06/10/23 03:41 Creatinine 0.73 mg/dL (0.5-1.4) 06/10/23 03:41 Estim Creat Clear Calc 114.8 06/10/23 03:41 Estimated GFR > 60 06/10/23 03:41 POC Glucose 208 mg/dL (60-115) H 06/11/23 07:14 Random Glucose 219 mg/dL (60-115) H 06/10/23 03:41 Lactic Acid 2.5 mmol/L (0.5-2.0) H* 06/09/23 23:12 Lactic Acid F/U @ 2Hr 3.3 mmol/L (0.5-2.0) H* 06/10/23 01:30 Lactic Acid F/U @ 4Hr 3.0 mmol/L (0.5-2.0) H* 06/10/23 03:41 Calcium 8.8 mg/dL (8.4-10.2) 06/10/23 03:41 Magnesium 2.2 mg/dL (1.6-2.6) 06/09/23 22:53 Total Bilirubin 0.3 mg/dL (0.0-1.0) 06/09/23 22:53 Direct Bilirubin 0.1 mg/dL (0.0-0.5) 06/09/23 22:53 AST 14 U/L (5-31) 06/09/23 22:53 ALT 24 U/L (0-31) 06/09/23 22:53 Alkaline Phosphatase 80 U/L (39-117) 06/09/23 22:53 Troponin I High Sens < 2.7 ng/L (<3.5-17.0) 06/09/23 22:53 B-Natriuretic Peptide < 10 pg/mL (<100) 06/09/23 22:53 Total Protein 6.6 g/dL (6.5-8.0) 06/09/23 22:53 Albumin 3.8 g/dL (3.5-5.0) 06/09/23 22:53 Procalcitonin < 0.02 ng/mL 06/10/23 03:41 COVID-19 ([facility]) Negative (Negative) 06/09/23 22:52 COVID-19 Clin Com See Note 06/09/23 22:52 Influenza Type A ([facility]) Negative (Negative) 06/09/23 22:52 Influenza Type B ([facility]) Negative (Negative) 06/09/23 22:52 Influenza A & B Note See Note 06/09/23 22:52 Impressions Chest X-Ray 06/09/23 21:35 IMPRESSION: No significant change when compared to 05/21/2023 with redemonstration of at least moderate peribronchial thickening. Discharge Plan Discharge Anticipated Discharge Date/Time: 06/11/23 14:53 Patient Disposition: Home Health Service Discharge Diagnosis: COPD exacerbation Referrals: Tatum Magdaleno MD [Primary Care Provider] - 1 Week Corwin Hung MD [Physician] - 2 Weeks Discharge Medications: New prednisone 20 mg tablet 40 mg PO DAILY Qty: 8 0RF doxycycline monohydrate 100 mg tablet 100 mg PO BID Qty: 8 0RF Continued (DME) FreeStyle Lite Strips Strip Qty: 100 0RF Rx Instructions: Test four times a day or as directed. (DME) blood-glucose meter [FreeStyle Lite Meter] Kit Qty: 1 0RF Rx Instructions: As Directed (DME) lancets [FreeStyle Lancets] 28 gauge misc Qty: 100 0RF Rx Instructions: Test four times a day or as directed. bupropion HCl 150 mg tablet extended release 24 hr 150 mg PO DAILY duloxetine 20 mg capsule,delayed release(DR/EC) 20 mg PO BID hydroxyzine HCl 50 mg Tablet 50 mg PO BID PRN (Reason: Anxiety) hydroxyzine pamoate 50 mg capsule 50 mg PO BEDTIME PRN (Reason: Insomnia) metformin 750 mg tablet extended release 24 hr 750 mg PO BID albuterol sulfate 2.5 mg /3 mL (0.083 %) solution for nebulization 2.5 mg inhalation Q6H PRN (Reason: wheezing) sumatriptan succinate 25 mg tablet 25 mg PO DAILY PRN (Reason: Migraine Headache) Rx Instructions: MRX1 after 2 hours gabapentin 400 mg capsule 800 mg PO BEDTIME prazosin [Minipress] 5 mg capsule 5 mg PO BEDTIME Rx Instructions: TAKE WITH 2MG pantoprazole 40 mg tablet,delayed release (DR/EC) 40 mg PO BID@0630,1630 montelukast 10 mg tablet 10 mg PO BEDTIME cyanocobalamin (vitamin B-12) 1,000 mcg tablet, sublingual 1,000 mcg sublingual DAILY mirtazapine 15 mg tablet 22.5 mg PO BEDTIME gabapentin 100 mg capsule 100 mg PO BID PRN (Reason: Pain (Scale Score 4-6)) albuterol sulfate [Ventolin HFA] 90 mcg/actuation HFA aerosol inhaler 2 puff inhalation Q6H dicyclomine 10 mg capsule 20 mg PO Q8H PRN (Reason: Abdominal Pain) budesonide-formoterol [Symbicort] 160-4.5 mcg/actuation HFA aerosol inhaler 2 puff INHALATION BID polyethylene glycol 3350 17 gram powder in packet 17 g PO DAILY PRN (Reason: Constipation) meloxicam 15 mg tablet 15 mg PO DAILY PRN (Reason: pain) triamcinolone acetonide 55 mcg aerosol,spray 1 spray intranasal DAILY ondansetron 4 mg tablet,disintegrating 4 mg PO Q8H PRN (Reason: nausea/vomiting) Discharge Orders: Discharge Order (Routine); Ordered 06/11/23 Ordered By: Inna Marion Diet: Diabetic diet Activity on Discharge: As tolerated Stand Alone Forms: Patient Portal Discharge page Care Plan Goals: respiratory health Health Concerns: COPD exacerbation Plan of Treatment: take doxycycline 100 mg twice daily PLUS prednisong 40 mg once daily for 4 days resume oxygen as per home regimen [place] [facility] [place] 2 [place] Please follow up with your primary care doctor within 1 week. Return to the hospital if you experience recurrent or worsening symptoms. Assessment: See Discharge Summary.
[2023-06-11 10:46] VITALS: PULSE 108; RESP 20; O2SAT 94
== END 2023-06-11 11:35 | disposition home health service (06) | DRG 140 ==
LOC: HO.ED 23:20 → HO.EDOVER 23:39 → HO.S3 06-10 13:59
PROVIDERS: Admitting Provider Student in an Organized Health Care Education/Training Program; Emergency Provider Emergency Medicine; PCP Family Medicine; Visit Provider Family Medicine
DX: J44.1 Chronic obstructive pulmonary disease with (acute) exacerbation (principal); J96.21 Acute and chronic respiratory failure with hypoxia; E87.20 Acidosis, unspecified; D64.9 Anemia, unspecified; E11.40 Type 2 diabetes mellitus with diabetic neuropathy, unspecified; E66.01 Morbid (severe) obesity due to excess calories; F39 Unspecified mood [affective] disorder; G43.909 Migraine, unspecified, not intractable, without status migrainosus; Z99.81 Dependence on supplemental oxygen; Z68.42 Body mass index [BMI] 45.0-49.9, adult; Z20.822 Contact with and (suspected) exposure to COVID-19; Z79.84 Long term (current) use of oral hypoglycemic drugs; Z87.891 Personal history of nicotine dependence; Z79.899 Other long term (current) drug therapy
CPT/HCPCS: 36415; 71045; 80048; 80076; 82803; 82947; 83605; 83735; 83880; 84145; 84484; 85025; 87040; 87070; 87205; 87502; 87635; 93005; 94640; 97161; 99285; J0456; J0696; J1650; J2405; J2920; J2930; J3475

== ENCOUNTER → 2023-06-09 21:27 | Outpatient (BNV) | payer OTHER, SELFPAY | PROVIDERS: Admitting Provider Student in an Organized Health Care Education/Training Program; Emergency Provider Emergency Medicine; PCP Family Medicine; Visit Provider Internal Medicine Cardiovascular Disease | DX: R00.0 Tachycardia, unspecified (principal); R06.02 Shortness of breath | CPT/HCPCS: 93010 ==

== ENCOUNTER → 2023-06-09 23:36 | Outpatient (BNV) | payer OTHER, SELFPAY | PROVIDERS: Admitting Provider Student in an Organized Health Care Education/Training Program; Emergency Provider Emergency Medicine; PCP Family Medicine; Visit Provider Student in an Organized Health Care Education/Training Program | DX: J44.1 Chronic obstructive pulmonary disease with (acute) exacerbation (principal); J96.21 Acute and chronic respiratory failure with hypoxia; E66.01 Morbid (severe) obesity due to excess calories; Z68.41 Body mass index [BMI] 40.0-44.9, adult | CPT/HCPCS: 99222; 99232; 99238; G0180 ==

== ENCOUNTER → 2023-06-09 23:36 | Outpatient (BNV) | payer OTHER, SELFPAY | PROVIDERS: Admitting Provider Student in an Organized Health Care Education/Training Program; Emergency Provider Emergency Medicine; PCP Family Medicine; Visit Provider Hospitalist | DX: J44.1 Chronic obstructive pulmonary disease with (acute) exacerbation (principal) | CPT/HCPCS: 99223 ==

== ENCOUNTER 2023-06-21 14:47 | Outpatient (AMB) | payer OTHER, SELFPAY ==
[2023-06-21 15:34] VITALS: BP 144/78; PULSE 112; O2SAT 98; BMI 48.1
--- NOTE | 2023-06-21 15:34 | MHC.OFFVIS ---
Intake Vital Signs 06/21/23 15:34 Height 5 ft 2 in Weight 263 lb BMI 48.1 BP 144/78 H Blood Pressure Location Lt brachial Position Sitting Pulse 112 H Pulse Source Pulse Oximeter Pulse Oximetry (%) 98 Oxygen Delivery Method Nasal Cannula Oxygen Flow Rate 2 Intake Visit Reasons: Dyspnea Scada Technician Required: Yes Allergies promethazine [From PHENERGAN] Allergy (Unknown, Verified 06/21/23 15:57) ITCHING egg Allergy (Verified 06/21/23 15:57) Hives codeine [CODEINE] Adverse Reaction (Unknown, Verified 06/21/23 15:57) STOMACH UPSET morphine [MORPHINE] Adverse Reaction (Unknown, Verified 06/21/23 15:57) MORE PAIN Medication List - Last Reconciled 06/21/23 by Janel Alvarez LPN albuterol sulfate 2.5 mg inhalation Q6H PRN albuterol sulfate 90 mcg/actuation (Ventolin HFA) 2 puffs inhalation Q6H blood sugar diagnostic (FreeStyle Lite Strips) Test four times a day or as directed. blood-glucose meter (FreeStyle Lite Meter kit) As Directed budesonide-formoterol 160-4.5 mcg/actuation (Symbicort) 2 puffs inhalation BID cyanocobalamin (vitamin B-12) 1,000 mcg sublingual DAILY dicyclomine 20 mg PO Q8H PRN dicyclomine 20 mg PO .Q8 hours PRN doxycycline monohydrate 100 mg PO BID duloxetine 20 mg PO BID gabapentin 800 mg PO BEDTIME gabapentin 100 mg PO BID PRN hydroxyzine HCl 50 mg PO BID PRN hydroxyzine pamoate 50 mg PO BEDTIME PRN lancets (FreeStyle Lancets) Test four times a day or as directed. metformin ER 750 mg PO BID mirtazapine 22.5 mg PO BEDTIME montelukast 10 mg PO BEDTIME pantoprazole 40 mg PO BID@0630,1630 polyethylene glycol 3350 17 grams PO DAILY PRN prazosin (Minipress) 5 mg PO BEDTIME prednisone 40 mg (2 x 20 mg) PO DAILY sumatriptan succinate 25 mg PO DAILY PRN triamcinolone acetonide 1 spray intranasal DAILY HPI Dyspnea HPI Details Gail is a pleasant 42-year-old female, former smoker, quit 4 months ago with approximately 90 pack-year history, with underlying asthma on 2L supplemental oxygen. She was admitted on 04/23/2022 with acute hypoxic respiratory failure secondary to MSSA pneumonia superinfection of prior COVID pneumonia resulting in acute hypoxic respiratory failure requiring intubation and ventilatory support. Hospital course complicated by development of acute cor pulmonale. She was again admitted to [facility] at the end of March and again in May. She was prescribed doxycyline and prednisone on 06/11 with moderate improvement in symptoms. She was referred from the ED for pulmonary evaluation. She reports since being hospitalized in 2021 her asthma has been poorly controlled. She has been using the Symbicort and singulair with suboptimal affect. She reports dyspnea, chest tightness, wheezing and intermittent dry cough. She reports mother with asthma otherwise no pertinent family history. She denies any occupational exposures. 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 [facility] Medical History (Updated 06/29/23 @ 20:38 by Sapna Luz NP) Acute and chronic respiratory failure with hypoxia Acute exacerbation of chronic obstructive airways disease Abdominal pain Asthma with exacerbation Lower extremity edema Pneumonia Sepsis Acute exacerbation of COPD with asthma Acute respiratory failure with hypoxia Asthmaticus, status Chronic lung disease ILD (interstitial lung disease) Panic attack as reaction to stress Recurrent major depression Generalized anxiety disorder Morbid obesity Sinus infection Disc herniation H. pylori infection Depression Migraine Asthma Surgical History History of Social History (Updated 06/21/23 @ 15:53 by Janel Alvarez LPN) Household Members: Spouse Housing: Apartment Housing Other:: 2nd fl Do you presently have visiting nurse or other home services: Yes Alcohol intake: never Comment: Pt refusing bed/chair alarm- steady on feet, 1:1 Sitter Patient Tobacco Use Status: Former Tobacco user Quit Date: 11/14/22 Tobacco use type: Cigarette Cigarette Packs Per Day: 4 e-Cigarette/Vaping Use: Never Used Second Hand Smoke Exposure: Yes Advance Directives Date on File: 05/12/22 service: No Current occupational status: unemployed Review of Systems Const Denies chills, Denies excessive sweating, Denies fever(s), Denies headache(s) and Denies night sweats Eyes Denies dry eyes, Denies irritation and Denies itchy eyes ENT Reports Normal hearing present, Denies headache(s), Denies nasal congestion, Denies nasal discharge, Denies post nasal drip and Denies sore throat Card Denies chest pain, Denies chest pain at rest, Denies chest pain with activity, Denies claudication, Denies leg edema, Denies orthopnea and Denies paroxysmal nocturnal dyspnea Resp Denies chest congestion, Denies excessive phlegm production, Denies pain on inspiration, Denies pain with cough and Denies stridor Musc Denies myalgias Neuro Reports Normal hearing present and Denies headache(s) Endo Denies excessive sweating Mark/Lymph Denies lymphadenopathy Aller/Immun Denies itchy eyes and Denies seasonal rhinorrhea Physical Exam Vital Signs: Last Vital Signs Pulse 112 H 06/21/23 15:34 BP 144/78 H 06/21/23 15:34 Pulse Ox 98 06/21/23 15:34 Oxygen Delivery Method Nasal Cannula 06/21/23 15:34 Oxygen Flow Rate 2 06/21/23 15:34 BMI result Body Mass Index 48.1 Const General: cooperative, healthy appearing, comfortable, no acute distress, well developed and alert Nutritional Appearance: obese Orientation/consciousness: patient oriented x3 Limitations: no limitations HEENT Head: Yes normal to inspection, Yes normocephalic and Yes atraumatic Ears: hearing grossly normal bilaterally and external ears normal Eyes General: appearance normal, both eyes and all related structures Eyelids: Yes eyelids normal Sclerae: sclerae normal EOM: EOMs intact bilaterally Neck Neck: Yes normal visual inspection and Yes no lymphadenopathy Lymphatic: no lymphadenopathy noted Chest Chest palpation & inspection: normal inspection of the chest Resp Effort & Inspection: normal respiratory effort, able to speak in complete sentences, no cough, no stridor, not tachypneic, no tripod positioning and no use of accessory muscles Auscultation: no wheezes and diminished lung sounds Cardio Jugular venous distension: no JVD Rate: regular rate Rhythm: regular rhythm Skin Other: warm, dry General skin exam: no rashes or lesions noted Neuro General: patient oriented x3 Cranial nerves: Yes Normal hearing present Cognition (Neuro): normal cognition Gait exam (Neuro): Normal gait present Extrem General: Yes normal to inspection, Yes capillary refill normal, Yes no clubbing, cyanosis or edema and Yes no pedal edema Psych Appearance: grossly normal and well kempt Speech and movement: Normal speech and movement present and Clear speech present Affect: normal affect Attitude: cooperative Thought process: Normal thought process present Thought content: Normal thought content present Insight: Good insight present (Psych) Judgement: Good judgement present (Psych) Results Reviewed Results Reviewed: Assessment & Plan Assessment & Plan (1) Asthma-COPD overlap syndrome: Code(s): J44.89 - Other specified chronic obstructive pulmonary disease (2) Nocturnal hypoxemia: Code(s): G47.34 - Idiopathic sleep related nonobstructive alveolar hypoventilation (3) Dyspnea: Code(s): R06.00 - Dyspnea, unspecified Plan Gail's symptoms are likely related to underlying asthma/COPD, unclear severity as well as obesity/deconditioning etiologies. Will send for PFT and chest CT to evaluate. Will also send for RAST. 6MWT attempted, patient walked 50 yds, maintaining 94-95% oxygen saturation on room air, with HR 120s, however needed to stop due to breathlessness. Advised patient to continue to monitor oxygen saturation at home. Will also send for cardiology evaluation for dyspnea. Patient had prior home sleep study which was negative but did reveal nocturnal hypoxemia. Will send for overnight oximetry on 2L. All questions were answered and patient in agreement of plan. Will follow-up to review response to medication regimen and results. Coding Level of Care Code New Pt Level 4 (80156) Diagnoses Asthma-COPD overlap syndrome J44.89 Nocturnal hypoxemia G47.34 Dyspnea R06.00
== END 2023-06-21 16:26 | disposition home or self-care (01) ==
PROVIDERS: PCP Family Medicine; Visit Provider Nurse Practitioner Family
DX: J44.89 Other specified chronic obstructive pulmonary disease (principal); G47.34 Idiopathic sleep related nonobstructive alveolar hypoventilation; R06.00 Dyspnea, unspecified
CPT/HCPCS: 99204

== ENCOUNTER → 2023-06-21 14:47 | Outpatient (BNVA) | payer OTHER, SELFPAY | PROVIDERS: PCP Family Medicine; Visit Provider Nurse Practitioner Family | DX: J44.89 Other specified chronic obstructive pulmonary disease (principal); G47.34 Idiopathic sleep related nonobstructive alveolar hypoventilation; R06.00 Dyspnea, unspecified | CPT/HCPCS: 99202 ==

== ENCOUNTER 2023-08-16 10:24 | Outpatient (AMB) | payer OTHER, SELFPAY ==
[2023-08-16 10:29] VITALS: BP 110/76; PULSE 92; O2SAT 100; BMI 45.9
--- NOTE | 2023-08-16 10:29 | A.OFFVIS_ITS ---
Vital Signs 08/16/23 10:29 Height 5 ft 2 in Weight 251 lb BMI 45.9 BP 110/76 Blood Pressure Location Lt brachial Position Sitting Pulse 92 Pulse Source Pulse Oximeter Pulse Oximetry (%) 100 Oxygen Delivery Method Nasal Cannula Intake Visit Reasons: dyspnea : 8 week f/u Allergies promethazine [From PHENERGAN] Allergy (Unknown, Verified 08/16/23 10:36) ITCHING egg Allergy (Verified 08/16/23 10:36) Hives codeine [CODEINE] Adverse Reaction (Unknown, Verified 08/16/23 10:36) STOMACH UPSET morphine [MORPHINE] Adverse Reaction (Unknown, Verified 08/16/23 10:36) MORE PAIN HPI HPI dyspnea : 8 week f/u: Details: Gail is a pleasant 42-year-old female, former smoker, quit 4 months ago with approximately 90 pack-year history, with underlying asthma on 2L supplemental oxygen. She was admitted on 04/23/2022 with acute hypoxic respiratory failure secondary to MSSA pneumonia superinfection of prior COVID pneumonia resulting in acute hypoxic respiratory failure requiring intubation and ventilatory support. Hospital course complicated by development of acute cor pulmonale. Since this admission she has been on supplemental oxygen. She was again admitted to [facility] at the end of March and again in May. She was prescribed doxycyline and prednisone on 06/11 with moderate improvement in symptoms. At the last visit, 6MWT was performed but unfortunately patient could not attempt due to significant labored breathing and dyspnea. She continues to report persistent wheezing, dyspnea and dry cough, suboptimally controlled on symbicort and albuterol MDI. Of note, she does have an upcoming cardiology evaluation scheduled in 4 weeks. Today she presents on 2L on POC. [facility] Medical History (Updated 06/29/23 @ 20:45 by Sapna Luz NP) Acute and chronic respiratory failure with hypoxia Acute exacerbation of chronic obstructive airways disease Abdominal pain Asthma with exacerbation Lower extremity edema Pneumonia Sepsis Acute exacerbation of COPD with asthma Acute respiratory failure with hypoxia Asthmaticus, status Chronic lung disease ILD (interstitial lung disease) Panic attack as reaction to stress Recurrent major depression Generalized anxiety disorder Morbid obesity Sinus infection Disc herniation H. pylori infection Depression Migraine Asthma Surgical History History of Social History (Updated 06/21/23 @ 15:53 by Janel Alvarez LPN) Household Members: Spouse Housing: Apartment Housing Other:: 2nd fl Do you presently have visiting nurse or other home services: Yes Alcohol intake: never Comment: Pt refusing bed/chair alarm- steady on feet, 1:1 Sitter Patient Tobacco Use Status: Former Tobacco user Quit Date: 11/14/22 Tobacco use type: Cigarette Cigarette Packs Per Day: 4 e-Cigarette/Vaping Use: Never Used Second Hand Smoke Exposure: Yes Advance Directives Date on File: 05/12/22 service: No Current occupational status: unemployed Review of Systems Const Denies chills, Denies excessive sweating, Denies fever(s), Denies headache(s) and Denies night sweats Eyes Denies dry eyes, Denies irritation and Denies itchy eyes ENT Reports Normal hearing present, Denies headache(s), Denies nasal congestion, Denies nasal discharge, Denies post nasal drip and Denies sore throat Card Denies chest pain, Denies chest pain at rest, Denies chest pain with activity, Denies claudication, Denies leg edema, Denies orthopnea and Denies paroxysmal nocturnal dyspnea Resp Denies chest congestion, Denies excessive phlegm production, Denies pain on inspiration, Denies pain with cough and Denies stridor Musc Denies myalgias Neuro Reports Normal hearing present and Denies headache(s) Endo Denies excessive sweating Mark/Lymph Denies lymphadenopathy Aller/Immun Denies itchy eyes and Denies seasonal rhinorrhea Physical Exam Vital Signs: Last Vital Signs Pulse 92 08/16/23 10:29 BP 110/76 08/16/23 10:29 Pulse Ox 100 08/16/23 10:29 Oxygen Delivery Method Nasal Cannula 08/16/23 10:29 BMI result Body Mass Index 45.9 Const General: cooperative, healthy appearing, comfortable, no acute distress, well developed and alert Nutritional Appearance: obese Orientation/consciousness: patient oriented x3 Limitations: no limitations HEENT Head: Yes normal to inspection, Yes normocephalic and Yes atraumatic Ears: hearing grossly normal bilaterally and external ears normal Eyes General: appearance normal, both eyes and all related structures Eyelids: Yes eyelids normal Sclerae: sclerae normal EOM: EOMs intact bilaterally Neck Neck: Yes normal visual inspection and Yes no lymphadenopathy Lymphatic: no lymphadenopathy noted Chest Chest palpation & inspection: normal inspection of the chest Resp Effort & Inspection: normal respiratory effort, able to speak in complete sentences, no cough, no stridor, not tachypneic, no tripod positioning and no use of accessory muscles Auscultation: clear to auscultation bilaterally and no wheezes Cardio Jugular venous distension: no JVD Rate: regular rate Rhythm: regular rhythm Skin Other: warm, dry General skin exam: no rashes or lesions noted Neuro General: patient oriented x3 Cranial nerves: Yes Normal hearing present Cognition (Neuro): normal cognition Gait exam (Neuro): Normal gait present Extrem General: Yes normal to inspection, Yes capillary refill normal, Yes no clubbing, cyanosis or edema and Yes no pedal edema Psych Appearance: grossly normal and well kempt Speech and movement: Normal speech and movement present and Clear speech present Affect: normal affect Attitude: cooperative Thought process: Normal thought process present Thought content: Normal thought content present Insight: Good insight present (Psych) Judgement: Good judgement present (Psych) Assessment & Plan Assessment & Plan (1) Asthma-COPD overlap syndrome: Code(s): J44.89 - Other specified chronic obstructive pulmonary disease Category: Medical (2) Nocturnal hypoxemia: Code(s): G47.34 - Idiopathic sleep related nonobstructive alveolar hypoventilation Category: Medical (3) Dyspnea: Code(s): R06.00 - Dyspnea, unspecified Category: Medical Plan Will switch symbicort to Trelegy. Patient is scheduled for chest CT on 08/18 and orders were entered for PFT at the last visit. Will check with staff when this will be scheduled. There were also labs entered at last visit to obtain, patient will go to lab after this appointment. An order was also sent to [facility] for overnight oximetry, however this was not performed. Will look into when it will be scheduled. Will follow up at next visit to review PFT, CT, RAST, overnight oximetry and perform 6MWT. All questions were answered and patient in agreement of plan. Will follow-up to review response to medication regimen and results. Medications: New jyvmuhcekrc-sdlkughlm-bufshyui 100-62.5-25 mcg (Trelegy Ellipta) 1 inh inha lation DAILY 60 ea 6RF Coding Level of Care Code Est Pt Level 4 (74559) Diagnoses Asthma-COPD overlap syndrome J44.89 Nocturnal hypoxemia G47.34 Dyspnea R06.00
== END 2023-08-16 11:08 | disposition home or self-care (01) ==
PROVIDERS: PCP Family Medicine; Visit Provider Nurse Practitioner Family
DX: J44.89 Other specified chronic obstructive pulmonary disease (principal); G47.34 Idiopathic sleep related nonobstructive alveolar hypoventilation; R06.00 Dyspnea, unspecified
CPT/HCPCS: 99214

== ENCOUNTER → 2023-08-16 10:24 | Outpatient (BNVA) | payer OTHER, SELFPAY | PROVIDERS: PCP Family Medicine; Visit Provider Nurse Practitioner Family ==

== ENCOUNTER 2023-08-16 11:06 | Outpatient (REF) | payer OTHER, SELFPAY ==
[2023-08-16 14:17] LABS: MANUAL DIFF FLAG NO
[2023-08-16 14:39] LABS: Basophils Absolute Auto 0.1 X10*3/uL (0.0-0.2); Eosinophils Absolute Auto 0.8 X10*3/uL (0.0-0.4); Eosinophils Percent Auto 7.4 % (0-4); Hemoglobin 11.3 g/dl (12.0-16.0); Imm Gran Abs Auto 0.02 X10*3/uL (0.00-0.03); Imm Gran Pct Auto 0.2 % (0.0-0.4); Lymphocytes Absolute Auto 2.7 X10*3/uL (1.2-4.9); Mean Corpuscular HGB Conc 31.4 g/dl (31.0-35.0); Mean Corpuscular Hemoglobin 24.9 pg (27.0-33.0); Mean Corpuscular Volume 79.3 fL (80.0-98.0); Mean Platelet Volume 10.4 fL (9.4-12.3); Monocytes Absolute Auto 0.7 X10*3/uL (0.1-1.2); Monocytes Percent Auto 7.1 % (2-11); Neutrophils Absolute Auto 5.8 x10*3/uL (2.0-8.3); Neutrophils Percent Auto 57.3 % (45-73); Platelet Count 415 X10*3/uL (160-400); Red Blood Count 4.54 X10*6/uL (4.20-5.50); Red Cell Distribution Width 15.6 % (11.0-16.0); White Blood Count 10.2 X10*3/uL (4.8-10.8)
[2023-08-17 14:38] LABS: Class Alternaria alternata 0; Class Aspergillus fumigatus 0; Class Bermuda Grass 0; Class Birch 0/1; Class Cat Dander 0; Class Cladosporium herbarum 0; Class Cockroach 0; Class Common Ragweed 0; Class Cottonwood 0; Class Derm. pterony 0/1; Class Dermatophagoides farinae 1; Class Dog Dander 0; Class Elm 0; Class Maple Box Elder 0; Class Mountain Cedar 0; Class Mouse Urine Protein 0; Class Mugwort 0; Class Oak 1; Class Penicillium crysogenum 0; Class Rough Pigweed 0; Class Sheep Sorrel 0; Class Sycamore 0; Class Timothy Grass 0; Class Walnut Tree 0; Class White Ash 0; Class White Mulberry 0; D001 IgE D pteronyssinus 0.34 kU/L; D002 - IgE D farinae 0.37 kU/L; E001 - IgE Cat Dander <0.10 kU/L; E005 - IgE Dog Dander <0.10 kU/L; E072-IgE Mouse Urine <0.10 kU/L; G002 IgE Bermuda Grass <0.10 kU/L; G006 - IgE Timothy Grass <0.10 kU/L; I006-IgE Cockroach, German <0.10 kU/L; Immunoglobulin E 53 kU/L (<OR=114); M001 IgE Penicillium chrysogen <0.10 kU/L; M002 - IgE Cladosporium herbar <0.10 kU/L; M003 - IgE Aspergillus fumigat <0.10 kU/L; M006 - IgE Alternaria alternat <0.10 kU/L; T001 IgE Maple/Box Elder <0.10 kU/L; T003 IgE Common Silver Birch 0.22 kU/L; T006 - IgE Cedar, Mountain <0.10 kU/L; T007 - IgE Oak, White 0.42 kU/L; T008 IgE Elm, American <0.10 kU/L; T010 - IgE Walnut <0.10 kU/L; T011 - IgE Maple Leaf Sycamore <0.10 kU/L; T014 - IgE Cottonwood <0.10 kU/L; T015 - IgE Ash, White <0.10 kU/L; T070 - IgE White Mulberry <0.10 kU/L; W001 - IgE Ragweed, Short <0.10 kU/L; W006 - IgE Mugwort <0.10 kU/L; W014 IgE Pigweed, Common <0.10 kU/L; W018 IgE Sheep Sorrel <0.10 kU/L
== END 2023-08-16 11:07 | disposition home or self-care (01) ==
LOC: HO.WFDLDS 11:06
PROVIDERS: Visit Provider Nurse Practitioner Family
DX: R06.00 Dyspnea, unspecified (principal)
CPT/HCPCS: 36415; 82785; 85025; 86003; 99212

== ENCOUNTER 2023-09-13 14:25 | Outpatient (AMB) | payer OTHER, SELFPAY ==
[2023-09-13 14:28] VITALS: BP 120/70; PULSE 105; BMI 45.1
--- NOTE | 2023-09-13 14:28 | MHC.OFFVIS ---
Vital Signs 09/13/23 14:28 Height 5 ft 2 in Weight 246 lb 7.629 oz BMI 45.1 BP 120/70 Blood Pressure Location Lt brachial Position Sitting Pulse 105 H Pulse Source Pulse Oximeter Intake Visit Reasons: NPV/dyspnea Family Life Counselor Required: Yes Family Life Counselor Name: anam [id number] Accompanied by: Self / Same As Patient Allergies promethazine [From PHENERGAN] Allergy (Unknown, Verified 08/16/23 10:36) ITCHING egg Allergy (Verified 08/16/23 10:36) Hives codeine [CODEINE] Adverse Reaction (Unknown, Verified 08/16/23 10:36) STOMACH UPSET morphine [MORPHINE] Adverse Reaction (Unknown, Verified 08/16/23 10:36) MORE PAIN Medication List - Last Reconciled 09/13/23 by Pako Browne MD albuterol sulfate 2.5 mg inhalation Q6H PRN albuterol sulfate 90 mcg/actuation (Ventolin HFA) 2 puffs inhalation Q6H blood sugar diagnostic (FreeStyle Lite Strips) Test four times a day or as directed. blood-glucose meter (FreeStyle Lite Meter kit) As Directed cyanocobalamin (vitamin B-12) 1,000 mcg sublingual DAILY dicyclomine 20 mg PO Q8H PRN doxycycline monohydrate 100 mg PO BID duloxetine 20 mg PO BID bgofzmgjrnl-nhemsxykb-vjhstzik 100-62.5-25 mcg (Trelegy Ellipta) 1 inh inhalation DAILY gabapentin 800 mg PO BEDTIME gabapentin 100 mg PO BID PRN lancets (FreeStyle Lancets) Test four times a day or as directed. metformin ER 750 mg PO BID mirtazapine 22.5 mg PO BEDTIME montelukast 10 mg PO BEDTIME pantoprazole 40 mg PO BID@0630,1630 polyethylene glycol 3350 17 grams PO DAILY PRN prazosin (Minipress) 5 mg PO BEDTIME sumatriptan succinate 25 mg PO DAILY PRN triamcinolone acetonide 1 spray intranasal DAILY HPI Comments Details: Gail is here for consultation regarding shortness of breath. Per documentation, she has asthma/COPD. She is also on supplemental oxygen. With activity, she states she gets short of breath. No clear-cut anginal-type chest pains. No prior history of any coronary disease or myocardial infarction or cardiomyopathy. Long history of smoking. [facility] Medical History (Updated 09/13/23 @ 15:03 by Pako Browne MD) Acute and chronic respiratory failure with hypoxia Acute exacerbation of chronic obstructive airways disease Abdominal pain Asthma with exacerbation Lower extremity edema Pneumonia Sepsis Acute exacerbation of COPD with asthma Acute respiratory failure with hypoxia Asthmaticus, status Chronic lung disease ILD (interstitial lung disease) Panic attack as reaction to stress Recurrent major depression Generalized anxiety disorder Morbid obesity Sinus infection Disc herniation H. pylori infection Depression Migraine Asthma Surgical History History of Family History (Updated 09/13/23 @ 15:02 by Pako Browne MD) Mother Diabetes High cholesterol Social History Household Members: Spouse Housing: Apartment Housing Other:: 2nd fl Do you presently have visiting nurse or other home services: Yes Alcohol intake: never Comment: Pt refusing bed/chair alarm- steady on feet, 1:1 Sitter Patient Tobacco Use Status: Former Tobacco user Quit Date: 11/14/22 Tobacco use type: Cigarette Cigarette Packs Per Day: 4 e-Cigarette/Vaping Use: Never Used Second Hand Smoke Exposure: Yes Advance Directives Date on File: 05/12/22 service: No Current occupational status: unemployed Review of Systems Const Denies chills, Denies fatigue, Denies fever(s), Denies frequent falls, Denies weakness, Denies weight gain and Denies weight loss ENT Denies dizziness Card Denies chest pain, Denies leg edema, Denies lightheadedness, Denies palpitations, Denies dyspnea and Denies dyspnea on exertion Resp Denies cough, Denies dyspnea and Denies dyspnea on exertion GI Denies hematochezia Musc Denies abnormal gait, Denies muscle weakness, Denies numbness, Denies radiating pain into limb and Denies tingling Neuro Denies abnormal gait, Denies dizziness, Denies frequent falls, Denies numbness, Denies tingling and Denies weakness Endo Denies fatigue and Denies palpitations Physical Exam Vital Signs: Last Vital Signs Pulse 105 H 09/13/23 14:28 BP 120/70 09/13/23 14:28 BMI result Body Mass Index 45.1 Const General: comfortable and no acute distress Orientation/consciousness: patient oriented x3 HEENT Other: Unremarkable Head: Yes normal to inspection Neck Neck: Yes normal visual inspection Chest Chest palpation & inspection: normal inspection of the chest Resp Auscultation: clear to auscultation bilaterally Cardio Palpation: normal PMI Heart sounds: S1 normal heart sound present, S2 normal heart sound present, no gallops, no murmurs and no rubs GI Palpation (GI): Soft to palpation Back/Spine/Pelvis Other: unremarkable Skin General skin exam: no rashes or lesions noted Neuro General: patient oriented x3 Extrem General: Yes normal to inspection Psych Mental Status: mental status grossly normal Assessment & Plan Assessment & Plan (1) Shortness of breath: Code(s): R06.02 - Shortness of breath Category: Medical (2) Asthma-COPD overlap syndrome: Code(s): J44.89 - Other specified chronic obstructive pulmonary disease Category: Medical Plan In the recent EKG, mild sinus tachycardia at 01:04/Min; no significant ST-T changes and otherwise unremarkable. Prior EKGs are also similar. Numerous high sensitivity troponins done over the last couple of years are all within normal range. Numerous cardiac BNP levels are also within normal range and mostly <10. Echocardiogram from last year with LVEF of 50-55%; mild diastolic dysfunction and no significant valvular issues. Could not assess for pulmonary hypertension because of inadequate tricuspid regurgitation. Normal IVC size and respiratory variation. Overall, based on the above and her clinical history/documentation, do not believe there is any significant cardiac component to her shortness of breath. Almost certainly related to her pulmonary disease. The mild sinus tachycardia could be a compensated response because of diminished respiratory reserve/hypoxia. Do not recommend any further cardiac workup in this setting. Recommendations per Pulmonary otherwise. Total time spent including review of pulmonary records at [facility] as well as [facility], inpatient documentation, documentation, counseling, coordination of care-47 minutes. Coding Level of Care Code New Pt Level 4 (84494) Diagnoses Shortness of breath R06.02 Asthma-COPD overlap syndrome J44.89
== END 2023-09-13 14:48 | disposition home or self-care (01) ==
PROVIDERS: PCP Family Medicine; Visit Provider Internal Medicine
DX: R06.02 Shortness of breath (principal); J44.89 Other specified chronic obstructive pulmonary disease
CPT/HCPCS: 99204

== ENCOUNTER → 2023-09-13 14:25 | Outpatient (BNVA) | payer OTHER, SELFPAY | PROVIDERS: PCP Family Medicine; Visit Provider Internal Medicine | DX: J44.89 Other specified chronic obstructive pulmonary disease (principal); R06.02 Shortness of breath | CPT/HCPCS: 99202 ==

== ENCOUNTER 2023-10-14 13:43 | Outpatient (AMB) | payer OTHER, SELFPAY ==
[2023-10-14 14:06] VITALS: BP 142/96; PULSE 79; O2SAT 99; BMI 45.4
--- NOTE | 2023-10-14 14:06 | MHC.OFFVIS ---
Vital Signs 10/14/23 14:06 Height 5 ft 2 in Weight 248 lb BMI 45.4 BP 142/96 H Blood Pressure Location Lt brachial Position Sitting Pulse 79 Pulse Source Pulse Oximeter Pulse Oximetry (%) 99 Oxygen Delivery Method Nasal Cannula Intake Visit Reasons: dyspnea Dry Heat Cabinet Attendant Required: Yes Dry Heat Cabinet Attendant Name: Rustam [id number] Allergies promethazine [From PHENERGAN] Allergy (Unknown, Verified 08/16/23 10:36) ITCHING egg Allergy (Verified 08/16/23 10:36) Hives codeine [CODEINE] Adverse Reaction (Unknown, Verified 08/16/23 10:36) STOMACH UPSET morphine [MORPHINE] Adverse Reaction (Unknown, Verified 08/16/23 10:36) MORE PAIN HPI HPI dyspnea: Details: Gail is a pleasant 43-year-old female, former smoker, quit 6+ months ago with approximately 90 pack-year history, with underlying asthma on 2L supplemental oxygen. She was admitted on 04/23/2022 with acute hypoxic respiratory failure secondary to MSSA pneumonia superinfection of prior COVID pneumonia resulting in acute hypoxic respiratory failure requiring intubation and ventilatory support. Hospital course complicated by development of acute cor pulmonale. Since this admission she has been on supplemental oxygen. She is eager to discontinue supplemental oxygen and only using 1-2 on Inogen device and 2L with home concentrator. She states that she has been checking oxygen regularly maintaining >92% on room air. Today she reports symptoms have been well controlled on current regimen of Trelegy and albuterol MDI. She reports using albuterol very infrequently. She denies cough, wheezing, chest tightness and reports minimal dyspnea. She denies any visits to urgent care or hospitalizations since the last visit. At the last visit an overnight oximetry order placed and she will have that performed tonight as well as a chest CT next week. She again notes that she has not been called to schedule her PFT, will have staff look into this. [facility] Medical History (Updated 09/13/23 @ 15:03 by Pako Browne MD) Acute and chronic respiratory failure with hypoxia Acute exacerbation of chronic obstructive airways disease Abdominal pain Asthma with exacerbation Lower extremity edema Pneumonia Sepsis Acute exacerbation of COPD with asthma Acute respiratory failure with hypoxia Asthmaticus, status Chronic lung disease ILD (interstitial lung disease) Panic attack as reaction to stress Recurrent major depression Generalized anxiety disorder Morbid obesity Sinus infection Disc herniation H. pylori infection Depression Migraine Asthma Surgical History History of Family History (Updated 09/13/23 @ 15:02 by Pako Browne MD) Mother Diabetes High cholesterol Social History Household Members: Spouse Housing: Apartment Housing Other:: 2nd fl Do you presently have visiting nurse or other home services: Yes Alcohol intake: never Comment: Pt refusing bed/chair alarm- steady on feet, 1:1 Sitter Patient Tobacco Use Status: Former Tobacco user Tobacco use type: Cigarette Cigarette Packs Per Day: 4 e-Cigarette/Vaping Use: Never Used Second Hand Smoke Exposure: Yes Advance Directives Date on File: 05/12/22 service: No Current occupational status: unemployed Review of Systems Const Denies chills, Denies excessive sweating, Denies fever(s), Denies headache(s) and Denies night sweats Eyes Denies dry eyes, Denies irritation and Denies itchy eyes ENT Reports Normal hearing present, Denies headache(s), Denies nasal congestion, Denies nasal discharge, Denies post nasal drip and Denies sore throat Card Denies chest pain, Denies chest pain at rest, Denies chest pain with activity, Denies claudication, Denies leg edema, Denies orthopnea and Denies paroxysmal nocturnal dyspnea Resp Denies chest congestion, Denies cough, Denies excessive phlegm production, Denies pain on inspiration, Denies pain with cough, Denies stridor and Denies wheezing Musc Denies myalgias Neuro Reports Normal hearing present and Denies headache(s) Endo Denies excessive sweating Mark/Lymph Denies lymphadenopathy Aller/Immun Denies itchy eyes, Denies seasonal rhinorrhea and Denies wheezing Physical Exam Vital Signs: Last Vital Signs Pulse 79 10/14/23 14:06 BP 142/96 H 10/14/23 14:06 Pulse Ox 99 10/14/23 14:06 Oxygen Delivery Method Nasal Cannula 10/14/23 14:06 BMI result Body Mass Index 45.4 Const General: cooperative, healthy appearing, comfortable, no acute distress, well developed and alert Nutritional Appearance: obese Orientation/consciousness: patient oriented x3 Limitations: no limitations HEENT Head: Yes normal to inspection, Yes normocephalic and Yes atraumatic Ears: hearing grossly normal bilaterally and external ears normal Eyes General: appearance normal, both eyes and all related structures Eyelids: Yes eyelids normal Sclerae: sclerae normal EOM: EOMs intact bilaterally Neck Neck: Yes normal visual inspection and Yes no lymphadenopathy Lymphatic: no lymphadenopathy noted Chest Chest palpation & inspection: normal inspection of the chest Resp Effort & Inspection: normal respiratory effort, able to speak in complete sentences, no audible wheezes, no cough, no stridor, not tachypneic, no tripod positioning and no use of accessory muscles Auscultation: clear to auscultation bilaterally Cardio Jugular venous distension: no JVD Rate: regular rate Rhythm: regular rhythm Skin Other: warm, dry General skin exam: no rashes or lesions noted Neuro General: patient oriented x3 Cranial nerves: Yes Normal hearing present Cognition (Neuro): normal cognition Gait exam (Neuro): Normal gait present Extrem General: Yes normal to inspection, Yes capillary refill normal, Yes no clubbing, cyanosis or edema and Yes no pedal edema Psych Appearance: grossly normal and well kempt Speech and movement: Normal speech and movement present and Clear speech present Affect: normal affect Attitude: cooperative Thought process: Normal thought process present Thought content: Normal thought content present Insight: Good insight present (Psych) Judgement: Good judgement present (Psych) Office Procedures 6 Minute Walk Time:: 14:30 SPO2 % at rest: 98 Pulse at rest: 96 SPO2 % during excercise: 87 Pulse during excercise: 118 SPO2 % after excercise: 94 Pulse after excercise: 116 Distance in yards walked: 150 Donald Score: 7 Performance Observations:: Patient walked unassisted on level ground at moderate pace. (without poc) After approx 50 yards patient patient's O2 saturation dropped to 87% with pulse of 112. O2 applied via POC at 2 O2 saturation recovered to 91% pulse of 98. Walk continued and after additional 20 yards O2 saturation dropped to 88% with pulse of 118. O2 increased to 3 with little effect. Increased to 4 and O2 saturation increased 94% with pulse of 118. Patient was able to complete the walk maintaining O2 saturation of 94%. Patient was short of breath during the walk and did require the use of supplemental O2. 64064 - 6 Minute Walk Assessment & Plan Assessment & Plan (1) Asthma-COPD overlap syndrome: Code(s): J44.89 - Other specified chronic obstructive pulmonary disease Category: Medical (2) Nocturnal hypoxemia: Code(s): G47.34 - Idiopathic sleep related nonobstructive alveolar hypoventilation Category: Medical (3) Dyspnea: Code(s): R06.00 - Dyspnea, unspecified Category: Medical Plan Patient reports good symptomatic control on Trelegy, advised to continue. Awaiting PFT, chest CT and overnight oximetry results. Will check with staff regarding PFT. 6MWT performed today and patient continues to require 2L supplemental oxygen and setting of 4 on Inogen device with exertion. Patient had recent cardiac evaluation which revealed mild diastolic dysfunction and no signficant cardiac contribution for dyspnea. Will follow up to review results of pending chest CT, PFT and overnight oximetry. All questions were answered and patient in agreement of plan. Orders: Orders AMB 6 minute walk 10/14/23 J44.89 - Other specified chronic obstructive pulmonary disease Coding Level of Care Code Est Pt Level 4 (68129) Diagnoses Asthma-COPD overlap syndrome J44.89 Nocturnal hypoxemia G47.34 Dyspnea R06.00 CPT Codes Coding ([id number])
[2023-10-14 16:02] VITALS: PULSE 96; O2SAT 98
== END 2023-10-14 14:53 | disposition home or self-care (01) ==
PROVIDERS: PCP Family Medicine; Visit Provider Nurse Practitioner Family
DX: J44.89 Other specified chronic obstructive pulmonary disease (principal); G47.34 Idiopathic sleep related nonobstructive alveolar hypoventilation; R06.00 Dyspnea, unspecified
CPT/HCPCS: 94618; 99214

== ENCOUNTER → 2023-10-14 13:43 | Outpatient (BNVA) | payer OTHER, SELFPAY | PROVIDERS: PCP Family Medicine; Visit Provider Nurse Practitioner Family | DX: J44.89 Other specified chronic obstructive pulmonary disease (principal); G47.34 Idiopathic sleep related nonobstructive alveolar hypoventilation; R06.00 Dyspnea, unspecified | CPT/HCPCS: 94618; 99212 ==

== ENCOUNTER 2023-10-21 13:47 | Outpatient (REF) | payer OTHER, SELFPAY ==
--- NOTE | ~2023-10-21 | CT_ITS ---
EXAMINATION: CT CHEST WITHOUT CONTRAST CLINICAL INFORMATION: Dyspnea. COMPARISON: CT chest 11/17/2022. TECHNIQUE: Multidetector volumetric CT imaging of the chest was done. Axial MIP volume rendering provided. Sagittal and coronal reformatted images were obtained. This CT examination was performed using dose optimization techniques as appropriate, variously including the following: *Automated exposure control *Adjustment of mA and/or kV according to patient size (this includes techniques or standardized protocols for targeted exams where dose is matched to indication/reason for exam; i.e. extremities or head) *Use of iterative reconstruction technique DLP: 225 mGy-cm FINDINGS: LUNGS: The previously seen diffuse pulmonary infiltrates throughout both lungs have completely cleared. About 5 micronodules, none larger than 4 mm remain which could not be seen previously because of airspace disease. Alcocer images have been saved. There is bronchial thickening and mild underlying emphysema. MEDIASTINUM: The mediastinum is normal. CORONARY ARTERY CALCIFICATION: None visualized on this study. PLEURA: There is no pleural effusion. No pleural mass or thickening. AXILLA: No lymphadenopathy. UPPER ABDOMEN: Status post cholecystectomy. OSSEOUS STRUCTURES: Unremarkable. CT/CT chest wo IV con IMPRESSION: 1. Resolution of previously seen diffuse pulmonary infiltrates. 2. Mild emphysema and bronchial thickening. 3. Multiple micronodules, none larger than 4 mm. Fleischner guidelines were followed.
== END 2023-10-21 13:48 | disposition home or self-care (01) ==
LOC: HO.CT 13:47
PROVIDERS: PCP Family Medicine; Visit Provider Nurse Practitioner Family
DX: R06.00 Dyspnea, unspecified (principal); Z87.891 Personal history of nicotine dependence
CPT/HCPCS: 71250

== ENCOUNTER 2023-11-15 13:35 | Outpatient (AMB) | payer OTHER, SELFPAY ==
[2023-11-15 15:22] VITALS: BP 132/88; PULSE 91; O2SAT 99; BMI 46.0
--- NOTE | 2023-11-15 15:22 | MHC.OFFVIS ---
Vital Signs 11/15/23 15:22 Height 5 ft 2 in Weight 251 lb 6 oz BMI 46.0 BP 132/88 Blood Pressure Location Lt brachial Position Sitting Pulse 91 Pulse Source Pulse Oximeter Pulse Oximetry (%) 99 Oxygen Delivery Method Nasal Cannula Oxygen Flow Rate 2 Intake Visit Reasons: dyspnea Composition Worker Required: Yes Composition Worker Language: Human Resources Assistant Manager Name: [id number] [place] Allergies promethazine [From PHENERGAN] Allergy (Unknown, Verified 11/15/23 15:29) ITCHING egg Allergy (Verified 11/15/23 15:29) Hives codeine [CODEINE] Adverse Reaction (Unknown, Verified 11/15/23 15:29) STOMACH UPSET morphine [MORPHINE] Adverse Reaction (Unknown, Verified 11/15/23 15:29) MORE PAIN HPI HPI dyspnea: Details: Gail is a pleasant 43-year-old female, former smoker, quit 6+ months ago with approximately 90 pack-year history, with underlying asthma on 2L supplemental oxygen. She was admitted on 04/23/2022 with acute hypoxic respiratory failure secondary to MSSA pneumonia superinfection of prior COVID pneumonia resulting in acute hypoxic respiratory failure requiring intubation and ventilatory support. Hospital course complicated by development of acute cor pulmonale. Since this admission she has been on supplemental oxygen. At the last visit, 6MWT was performed and patient continues to need 2 L with exertion. At baseline, she reports symptoms have been well controlled on current regimen of Trelegy and albuterol MDI. Today she presents for an acute visit. She reports over the last few days increased productive cough with green sputum, chest tightness, wheezing and dyspnea. She denies any fevers, chills or sick contacts. [facility] Medical History (Updated 09/13/23 @ 15:03 by Pako Browne MD) Acute and chronic respiratory failure with hypoxia Acute exacerbation of chronic obstructive airways disease Abdominal pain Asthma with exacerbation Lower extremity edema Pneumonia Sepsis Acute exacerbation of COPD with asthma Acute respiratory failure with hypoxia Asthmaticus, status Chronic lung disease ILD (interstitial lung disease) Panic attack as reaction to stress Recurrent major depression Generalized anxiety disorder Morbid obesity Sinus infection Disc herniation H. pylori infection Depression Migraine Asthma Surgical History History of Family History (Updated 09/13/23 @ 15:02 by Pako Browne MD) Mother Diabetes High cholesterol Social History Household Members: Spouse Housing: Apartment Housing Other:: 2nd fl Do you presently have visiting nurse or other home services: Yes Alcohol intake: never Comment: Pt refusing bed/chair alarm- steady on feet, 1:1 Sitter Patient Tobacco Use Status: Former Tobacco user Tobacco use type: Cigarette Cigarette Packs Per Day: 4 e-Cigarette/Vaping Use: Never Used Second Hand Smoke Exposure: Yes Advance Directives Date on File: 05/12/22 service: No Current occupational status: unemployed Review of Systems Const Denies chills, Denies excessive sweating, Denies fever(s), Denies headache(s) and Denies night sweats Eyes Denies dry eyes, Denies irritation and Denies itchy eyes ENT Reports Normal hearing present, Denies headache(s), Denies nasal congestion, Denies nasal discharge, Denies post nasal drip and Denies sore throat Card Denies chest pain, Denies chest pain at rest, Denies chest pain with activity, Denies claudication, Denies orthopnea and Denies paroxysmal nocturnal dyspnea Resp Denies chest congestion, Denies excessive phlegm production, Denies pain on inspiration, Denies pain with cough and Denies stridor Musc Denies myalgias Neuro Reports Normal hearing present and Denies headache(s) Endo Denies excessive sweating Mark/Lymph Denies lymphadenopathy Aller/Immun Denies itchy eyes and Denies seasonal rhinorrhea Physical Exam Vital Signs: Last Vital Signs Pulse 91 11/15/23 15:22 BP 132/88 11/15/23 15:22 Pulse Ox 99 11/15/23 15:22 Oxygen Delivery Method Nasal Cannula 11/15/23 15:22 Oxygen Flow Rate 2 11/15/23 15:22 BMI result Body Mass Index 46.0 Const General: cooperative, healthy appearing, comfortable, no acute distress, well developed and alert Nutritional Appearance: obese Orientation/consciousness: patient oriented x3 Limitations: no limitations HEENT Head: Yes normal to inspection, Yes normocephalic and Yes atraumatic Ears: hearing grossly normal bilaterally and external ears normal Eyes General: appearance normal, both eyes and all related structures Eyelids: Yes eyelids normal Sclerae: sclerae normal EOM: EOMs intact bilaterally Neck Neck: Yes normal visual inspection and Yes no lymphadenopathy Lymphatic: no lymphadenopathy noted Chest Chest palpation & inspection: normal inspection of the chest Resp Other: faint inspiratory wheezes Effort & Inspection: normal respiratory effort, able to speak in complete sentences, no audible wheezes, no cough, no stridor, not tachypneic, no tripod positioning and no use of accessory muscles Cardio Jugular venous distension: no JVD Rate: regular rate Rhythm: regular rhythm Skin Other: warm, dry General skin exam: no rashes or lesions noted Neuro General: patient oriented x3 Cranial nerves: Yes Normal hearing present Cognition (Neuro): normal cognition Gait exam (Neuro): Normal gait present Extrem Other: trace pedal edema Psych Appearance: grossly normal and well kempt Speech and movement: Normal speech and movement present and Clear speech present Affect: normal affect Attitude: cooperative Thought process: Normal thought process present Thought content: Normal thought content present Insight: Good insight present (Psych) Judgement: Good judgement present (Psych) Assessment & Plan Assessment & Plan (1) Asthma-COPD overlap syndrome: Code(s): J44.89 - Other specified chronic obstructive pulmonary disease Category: Medical (2) Nocturnal hypoxemia: Code(s): G47.34 - Idiopathic sleep related nonobstructive alveolar hypoventilation Category: Medical (3) Dyspnea: Code(s): R06.00 - Dyspnea, unspecified Category: Medical Plan Patient presents for an acute visit today. She reports cough with green sputum and worsening dyspnea. Will send a zpak for bronchitic symptoms. Patient had recent cardiac evaluation which revealed mild diastolic dysfunction and now with mild pedal edema, worsening dyspnea/orthopnea and inspiratory wheezes throughout. Will send for BNP and CXR. Will follow up to review results of chest CT, PFT and overnight oximetry. All questions were answered and patient in agreement of plan. Orders: Orders XR chest 2V Today R06.02 - Shortness of breath B Type Natriuretic Peptide Today R06.02 - Shortness of breath Medications: New azithromycin For 250 mg dose pack: take 500 mg today (day 1), then 250 mg for 4 days (days 2-5) PO 6 tabs 0RF Discontinued doxycycline monohydrate Discontinued Reason: Patient Completed Course 100 mg PO BID 8 tabs 0RF Coding Level of Care Code Est Pt Level 4 (60961) Diagnoses Asthma-COPD overlap syndrome J44.89 Nocturnal hypoxemia G47.34 Dyspnea R06.00
== END 2023-11-15 15:53 | disposition home or self-care (01) ==
PROVIDERS: PCP Family Medicine; Visit Provider Nurse Practitioner Family
DX: J44.89 Other specified chronic obstructive pulmonary disease (principal); G47.34 Idiopathic sleep related nonobstructive alveolar hypoventilation; R06.00 Dyspnea, unspecified
CPT/HCPCS: 99214

== ENCOUNTER → 2023-11-15 13:35 | Outpatient (BNVA) | payer OTHER, SELFPAY | PROVIDERS: PCP Family Medicine; Visit Provider Nurse Practitioner Family | DX: J44.89 Other specified chronic obstructive pulmonary disease (principal); R06.00 Dyspnea, unspecified; G47.34 Idiopathic sleep related nonobstructive alveolar hypoventilation | CPT/HCPCS: 99212 ==

== ENCOUNTER 2023-11-17 09:19 | Outpatient (REF) | payer OTHER, SELFPAY ==
--- NOTE | ~2023-11-17 | XR_ITS ---
EXAMINATION: XR CHEST 2 VIEW CLINICAL INFORMATION: Shortness of breath COMPARISON: 06/09/2023 TECHNIQUE: PA and lateral views of the chest obtained. FINDINGS: The lungs are clear. There are no pleural effusions. The right hilum is prominent. The cardiac silhouette is not enlarged. XR/XR chest 2V IMPRESSION: 1. Enlarged right hilum, for which contrast-enhanced chest CT evaluation is recommended. Mass or adenopathy are to be excluded.
[2023-11-17 11:35] LABS: B Type Natriuretic Peptide < 10 pg/mL (<100)
[2023-11-19 02:58] LABS: Immunoglobulin E 153 kU/L (<OR=114)
== END 2023-11-17 09:20 | disposition home or self-care (01) ==
LOC: HO.XRAY 09:19
PROVIDERS: PCP Family Medicine; Visit Provider Nurse Practitioner Family
DX: R06.02 Shortness of breath (principal); Z91.09 Other allergy status, other than to drugs and biological substances
CPT/HCPCS: 36415; 71046; 82785; 83880

== ENCOUNTER 2023-12-14 13:43 | Emergency (ER) | payer OTHER, SELFPAY ==
--- NOTE | 2023-12-14 | ECG_ITS ---
Test Reason : CHEST PAIN Blood Pressure : / mmHG Vent. Rate : 082 BPM Atrial Rate : 082 BPM P-R Int : 136 ms QRS Dur : 086 ms QT Int : 390 ms P-R-T Axes : 028 017 012 degrees QTc Int : 455 ms Normal sinus rhythm Normal ECG When compared with ECG of 09-JUN-2023 21:38, Heart rate has decreased Referred By: Generic ED Physician Electronically Signed By:DUSTY DILLARD
--- NOTE | ~2023-12-14 | XR_ITS ---
EXAMINATION: XR CHEST CLINICAL INFORMATION: Central chest pain COMPARISON: 11/17/2023 TECHNIQUE: 2 views of the chest were obtained. FINDINGS: The cardiomediastinal silhouette is mildly enlarged. There is mild interstitial prominence without consolidation. No pleural effusion or pneumothorax. XR/XR chest 2V IMPRESSION: Mild interstitial prominence may reflect interstitial edema versus a small airways process. No consolidation. Electronically signed by: Remigio Gordon MD 12/14/2023 04:46 PM EDT
--- NOTE | ~2023-12-14 | CT_ITS ---
EXAMINATION: CT HEAD WITHOUT CONTRAST CLINICAL INFORMATION: Bilateral facial and tongue numbness COMPARISON: CT head on 12/14/2022 TECHNIQUE: Contiguous axial imaging was performed from the skull base to vertex without intravenous administration of contrast. This CT examination was performed using dose optimization techniques as appropriate, variously including the following: *Automated exposure control *Adjustment of mA and/or kV according to patient size (this includes techniques or standardized protocols for targeted exams where dose is matched to indication/reason for exam; i.e. extremities or head) *Use of iterative reconstruction technique DLP: 670 mGy-cm FINDINGS: No acute intracranial hemorrhage or infarct. The clayton-white matter differentiation is preserved. No midline shift or hydrocephalus. No acute extra-axial fluid collections. The osseous structures are unremarkable. No orbital pathology. Moderate mucosal thickening of the paranasal sinuses. The mastoid air cells are clear. CT/CT head/brain wo IV con IMPRESSION: No acute intracranial hemorrhage or infarct. Electronically signed by: Naina Haley MD 12/14/2023 04:44 PM EDT
[2023-12-14 13:48] VITALS: BP 121/62; PULSE 80; O2SAT 100
--- NOTE | 2023-12-14 13:49 | ED.GENADULT ---
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 this morning. Pain is localized substernally and does not radiate into jaw or UEs. Reports associated numbness to her entire tongue and her entire face which began at the same time. Admits to associated lightheadedness which has been constant since onset and is not exacerbated with head movements. Patient reports history of anxiety and states that this feels similar. Denies personal or familial history of VTE. Denies recent travel or long car rides. Denies history of cardiac arrhythmias. Denies fever, chills, RAMÍREZ, vision changes, difficulty ambulating, palpitations, worsening shortness of breath, wheezing, cough, hemoptysis, calf pain/swelling. Of note patient given 81 mg aspirin via EMS in route to ED. customer equipment engineer utilized throughout visit to communicate with patient. Related Data Home Medications ?Medication ?Instructions ?Recorded ?Confirmed albuterol sulfate 2.5 mg/3 mL 2.5 mg inhalation Q6H PRN wheezing 11/16/22 09/13/23 (0.083 %) solution for nebulization albuterol sulfate 90 mcg/actuation 2 puff inhalation Q6H 11/16/22 09/13/23 aerosol inhaler (Ventolin HFA) cyanocobalamin (vitamin B-12) 1,000 mcg sublingual DAILY 11/16/22 09/13/23 1,000 mcg sublingual tablet dicyclomine 10 mg capsule 20 mg PO Q8H PRN Abdominal Pain 11/16/22 09/13/23 gabapentin 100 mg capsule 100 mg PO BID PRN Pain (Scale 11/16/22 09/13/23 Score 4-6) gabapentin 400 mg capsule 800 mg PO BEDTIME 11/16/22 09/13/23 mirtazapine 15 mg tablet 22.5 mg PO BEDTIME 11/16/22 09/13/23 montelukast 10 mg tablet 10 mg PO BEDTIME 11/16/22 09/13/23 pantoprazole 40 mg tablet,delayed 40 mg PO BID@0630,1630 11/16/22 09/13/23 release polyethylene glycol 3350 17 gram 17 g PO DAILY PRN Constipation 11/16/22 09/13/23 oral powder packet prazosin 5 mg capsule (Minipress) 5 mg PO BEDTIME 11/16/22 09/13/23 sumatriptan succinate 25 mg tablet 25 mg PO DAILY PRN Migraine 11/16/22 09/13/23 Headache triamcinolone acetonide 55 mcg 1 spray intranasal DAILY 03/01/23 09/13/23 nasal spray aerosol duloxetine 20 mg capsule,delayed 20 mg PO BID 04/23/23 09/13/23 release metformin 750 mg tablet,extended 750 mg PO BID 06/10/23 09/13/23 release 24 hr Previous Rx's ?Medication ?Instructions ?Recorded blood sugar diagnostic (FreeStyle #100 ea 12/17/22 Lite Strips) blood-glucose meter (FreeStyle #1 ea 12/17/22 Lite Meter kit) lancets 28 gauge (FreeStyle #100 ea 12/17/22 Lancets) fluticasone fur. 100 mcg-umeclid 1 inh inhalation DAILY #60 ea 08/16/23 62.5 mcg-vilant 25 mcg inhalat.powder (Trelegy Ellipta) azithromycin 250 mg tablet See Rx Instructions PO .COMPLEX #6 11/15/23 tabs Allergies Allergy/AdvReac Type Severity Reaction Status Date / Time promethazine [From PHENERGAN] Allergy Unknown ITCHING Verified 12/14/23 14:29 egg Allergy Hives Verified 12/14/23 14:29 codeine [CODEINE] AdvReac Unknown STOMACH Verified 12/14/23 14:29 UPSET morphine [MORPHINE] AdvReac Unknown MORE PAIN Verified 12/14/23 14:29 Review of Systems Review of Systems: Constitutional: No fever, chills, fatigue, night sweats, weight changes ENT/Mouth: No ear pain, hearing loss, nasal congestion, sinus pain, rhinorrhea, sore throat Eyes: No eye pain, swelling, redness, vision changes, discharge Cardio: No palpitations, MORROW, orthopnea, peripheral edema, +chest pain Pulm: No SOB, cough, sputum, wheezing, dyspnea, hemoptysis GI: No nausea, vomiting, hematemesis, abdominal pain, diarrhea, constipation, hematochezia, melena : No irregular bleeding, dysuria, frequency, urgency, hesitancy, hematuria, flank pain, urinary flow changes, urinary incontinence or retention MSK: No back pain, neck pain, joint pain, myalgias Skin: No lesions, rashes Neuro: No weakness, paresthesias, LOC, headache, +dizziness, +facial/tongue numbness Psych: No anxiety/panic, depression, SI/HI, AH/VH All other systems reviewed and are negative. [facility] Past Medical History Attestation statement: The following information was validated with the patient. Source: old records reviewed and nursing notes reviewed Medical History Acute and chronic respiratory failure with hypoxia Acute exacerbation of chronic obstructive airways disease Abdominal pain Asthma with exacerbation Lower extremity edema Pneumonia Sepsis Acute exacerbation of COPD with asthma Acute respiratory failure with hypoxia Asthmaticus, status Chronic lung disease ILD (interstitial lung disease) Panic attack as reaction to stress Recurrent major depression Generalized anxiety disorder Morbid obesity Sinus infection Disc herniation H. pylori infection Depression Migraine Asthma Surgical History History of Family History Family History Mother Diabetes High cholesterol Social History Social History Household Members: Spouse Housing: Apartment Housing Other:: 2nd fl Do you presently have visiting nurse or other home services: Yes Alcohol intake: never Comment: Pt refusing bed/chair alarm- steady on feet, 1:1 Sitter Patient Tobacco Use Status: Former Tobacco user Tobacco use type: Cigarette Cigarette Packs Per Day: 4 Smoked in Last 30 Days: No e-Cigarette/Vaping Use: Never Used Second Hand Smoke Exposure: Yes Use of substances other than those prescribed or required for medical reasons: No Advance Directives: Yes Advance Directives on File: Yes Advance Directives Date on File: 05/12/22 Patient : No service: No Current occupational status: unemployed Physical Exam ED Vital Signs: Vital Signs - 24 hr 12/14/23 17:57 Temperature 97.6 F Pulse Rate 84 Respiratory Rate 16 Blood Pressure 117/84 Pulse Oximetry 100 Oxygen Delivery Method Nasal Cannula BMI result Body Mass Index 50.8 Vital signs stable. Afebrile. Satting 100% on 3 L nasal cannula which is patient's baseline. Const General: cooperative, healthy appearing, comfortable and no acute distress Orientation/consciousness: patient oriented x3 Limitations: no limitations HENMT Head: Yes normal to inspection, Yes No palpable skull fracture present, Yes normocephalic and Yes atraumatic Eyes General: appearance normal, both eyes and all related structures Conjunctivae: conjunctivae normal Sclerae: sclerae normal Pupils: Equal, round and reactive pupils present EOM: EOMs intact bilaterally Neck Neck: Yes normal visual inspection, Yes full ROM, Yes no lymphadenopathy and Yes no JVD Chest Chest palpation & inspection: normal inspection of the chest and normal palpation of entire chest wall Resp Effort & Inspection: normal respiratory effort, able to speak in complete sentences, no cough, not tachypneic and no tripod positioning Auscultation: clear to auscultation bilaterally Cardio Jugular venous distension: no JVD Rate: regular rate Rhythm: regular rhythm GI Inspection: Yes normal to inspection Skin General skin exam: no rashes or lesions noted Neuro Other: + decreased sensation with palpation to bilateral face, sensation otherwise intact to light touch throughout. She is able to stick out her tongue however endorses numbness to the entire tongue. No pronator drift. No facial droop. No slurred speech. General: patient oriented x3 and no focal motor deficits Cranial nerves: Yes Equal, round and reactive pupils present Motor exam (neuro): 5/5 motor strength present throughout Coordination: [id number] test normal and Normal rapid alternating movements of the distal upper extremity present (Neuro) Pupils: Normal pupillary reactivity/response: bilateral Extrem General: Yes normal to inspection NIH Stroke Scale Internal: Initial- Upon Arrival Time: 13:50 Level of Consciousness: Alert Level of Consciousness Questions: Answers both questions correctly Level of Consciousness Commands: Performs both tasks correctly Best Gaze: Normal Visual: No visual loss Facial Palsy: Normal Motor Arm (Right): No drift Motor Arm (Left): No drift Motor Leg (Right): No drift Motor Leg (Left): No drift Limb Ataxia: Absent Sensory: Mild to moderate sensory loss Best Language: No aphasia Dysarthia: Normal Extinction and Inattention: No abnormality Score: 1 Course Course Course Narrative: 1709-- CBC without leukocytosis or left shift. Normocytic anemia, chronic when compared to priors. H&H 10.3/33. Chemistry without acute electrolyte abnormality requiring intervention. No THOMAS. Normal liver function. Troponin undetectable. Urine without infection or blood. She has tested negative for COVID, flu, RSV. CT head without acute intracranial findings. No obvious bleed or ischemia. CXR without focal consolidation or infiltrate. Radiologist notes mild interstitial prominence which may reflect interstitial edema versus small airway process. No acute findings. Chest x-ray on my interpretation appears unchanged when compared to chest x-ray obtained on 11/17/2023. EKG showing normal sinus rhythm with a rate of 82 beats per minute, QT 390, QTC 455, no acute ischemic changes or ST elevations. > patient has been treated with 1L of normal saline, Tylenol and Zofran in ED and given 324 aspirin via EMS en route to ED. 1726-- On re-evaluation, patient reports complete resolution of chest pain and dizziness. she is ambulating with steady gait. She continues to endorses numbness to her entire head. given numbness is bilateral and exam is nonfocal, CVA is unlikely. Exam is not consistent with carvalho's or other nerve palsy. PE shows intact cerebellum and I am not concerned for acute cerebellar infarct. I do not feel as though MRI is necessary at this time. she denies neck pain. she is afebrile and oriented, meningitis vs encephalitis unlikely. suspect anxiety related however etiology unclear. > plan to discharge patient home with PCP follow up which patient is agreeable with. Patient has remained stable throughout ED visit today. Discussed worrisome signs and symptoms and when to return to the ED. All questions answered at this time. Patient is agreeable with disposition and stable for discharge. Medications Administered Discontinued Medications Generic Name Dose Route Start Last Admin Trade Name Freq PRN Reason Stop Dose Admin Acetaminophen 975 mg 12/14/23 15:28 12/14/23 17:03 Acetaminophen 325 Mg Tablet PO 12/14/23 15:29 Not Given ONCE ONE Sodium Chloride 1,000 mls @ 999 mls/hr 12/14/23 15:30 12/14/23 18:04 Ns IV 12/14/23 16:30 Infused .Q1H1M KYRSTLE Infusion Ondansetron HCl 4 mg 12/14/23 15:28 12/14/23 17:00 Ondansetron Hcl 4 Mg/2 Ml Vial IVPUSH 12/14/23 15:29 4 mg ONCE ONE Administration Medical Decision Making Medical Decision Making MDM Narrative: 43 year old Taiwanese speaking female with pmhx significant for asthma, COPD with chronic respiratory failure on 3 L nasal cannula at baseline, pneumonia, complicated COVID course last year resulting in respiratory arrest with ICU stay requiring intubation, MSSA pneumonia presents to the ED today via EMS from home for evaluation of stabbing substernal chest pain which woke her from her sleep at 8:00 a.m. this morning. Vital signs are stable. She is not hypoxic. Satting 100% on 3 L nasal cannula which is her baseline. No respiratory distress noted. No tripoding. No increased effort of breathing. Lungs are clear to auscultation bilaterally without rales rhonchi or wheezes. RRR. No JVD. Exam is nonfocal. PERRLA. No nystagmus noted. Patient reports decreased sensation with palpation to bilateral face, sensation otherwise intact to light touch throughout. She is able to stick out her tongue however endorses numbness to the entire tongue. No pronator drift. No facial droop. No slurred speech. Cerebellum intact. NIH stroke scale 1 (sensory disturbance). Differential diagnoses includes but is not limited to ACS, arrhythmia, costochondritis, pleuritis, MSK sprain/strain, pneumonia, anxiety. Low suspcision for PE, effusion, ruptured aneurysm. BPPV vs labrynthitis. No red flag features for central vertigo to include gradual onset, vertical/bidirectional or nonfatigable nystagmus, focal neurologic findings on exam (including inability to ambulate). Presentation not consistent with an acute ADMINISTRATIVE OFFICE MANAGER infection, vertebral basilar artery insufficiency, cerebellar hemorrhage or infarction,?intracranial mass or bleed, temporal lobe epilepsy,?MS, trauma, complex migraine headache. Other acute, emergent causes of vertigo are unlikely given at this time however given endorsement of tongue numbness, will obtain head CT. Plan for labs, trop, ekg, cxr, viral serology, ct head. Differential Diagnosis Differential Diagnoses: The differential diagnosis associated with the presentation includes as above. Admission/Observation Consideration of admission/observation: Escalation of care including admission/observation considered Admission considered on presentation Lab Data MDM Lab Attestation statement: I reviewed the patient's lab results. as above. 12/14/23 14:14 12/14/23 14:14 Labs: Lab Results 12/14/23 12/14/23 Range/Units 14:14 16:24 WBC 10.3 (4.8-10.8) X10*3/uL RBC 4.02 L (4.20-5.50) X10*6/uL Hgb 10.3 L (12.0-16.0) g/dl Hct 33.0 L (37.0-47.0) % MCV 82.1 (80.0-98.0) fL MCH 25.6 L (27.0-33.0) pg MCHC 31.2 (31.0-35.0) g/dl RDW 17.5 H (11.0-16.0) % Plt Count 394 (160-400) X10*3/uL MPV 9.8 (9.4-12.3) fL Immature Gran % (Auto) 0.3 (0.0-0.4) % Neut % (Auto) 63.2 (45-73) % Lymph % (Auto) 22.6 (20-40) % [place] % (Auto) 6.9 (2-11) % Eos % (Auto) 6.1 H (0-4) % Baso % (Auto) 0.9 (0-2) % Lymph # (Auto) 2.3 (1.2-4.9) X10*3/uL [place] # (Auto) 0.7 (0.1-1.2) X10*3/uL Eos # (Auto) 0.6 H (0.0-0.4) X10*3/uL Baso # (Auto) 0.1 (0.0-0.2) X10*3/uL Abs Immat Gran (auto) 0.03 (0.00-0.03) X10*3/uL Absolute Neuts (auto) 6.5 (2.0-8.3) x10*3/uL Absolute Nucleated RBC 0.000 (0.0-0.012) X10*3/uL Nucleated RBC % (auto) 0.0 (0.0-0.2) /100WBC PT 13.0 (11.1-13.3) SEC INR 1.1 (0.9-1.1) Sodium 139 (135-145) mmol/L Potassium 4.0 (3.3-5.1) mmol/L Chloride 101 (96-108) mmol/L Carbon Dioxide 33 H (22-29) mmol/L Anion Gap 9 L (12-20) BUN 8 L (9-16) mg/dL Creatinine 0.66 (0.5-1.4) mg/dL Estim Creat Clear Calc 132.9 Estimated GFR > 60 Random Glucose 86 (60-115) mg/dL Calcium 9.6 D (8.4-10.2) mg/dL Magnesium 2.3 (1.6-2.6) mg/dL Total Bilirubin 0.3 (0.0-1.0) mg/dL AST 16 (5-31) U/L ALT 16 (0-31) U/L Alkaline Phosphatase 115 (39-117) U/L Troponin I High Sens < 2.7 (<3.5-17.0) ng/L Total Protein 6.7 (6.5-8.0) g/dL Albumin 3.6 (3.5-5.0) g/dL Lipase 8 (8-78) U/L Urine Color Yellow Urine Appearance Clear Urine pH 6.0 (5.0-9.0) Ur Specific [place] 1.025 (1.005-1.025) Urine Protein Negative (Neg-Trace) mg/dL Urine Glucose (UA) Negative (Negative) mg/dL Urine Ketones Negative (Negative) mg/dL Urine Blood Negative (Negative) Urine Nitrite Negative (Negative) Ur Leukocyte Esterase Negative (Negative) Urine Test NEGATIVE (NEGATIVE) Influenza Type A (PCR) NEGATIVE (Negative) Influenza Type B (PCR) NEGATIVE (Negative) RSV RNA Qual (PCR) NEGATIVE (Negative) SARS-CoV-2 RNA (RT-PCR) NEGATIVE (Negative) Independent Interpretation I performed an independent interpretation of an: EKG, Plain X-Ray and CT Scan Interpretation: EKG showing normal sinus rhythm with a rate of 82 beats per minute, QT 390, QTC 455, no acute ischemic changes or ST elevations. No significant change when compared to prior EKGs. Chest x-ray without focal infiltrate or consolidation, agree with radiologist's interpretation. CT head/brain without intracranial bleed, agree with radiologist's interpretation. Radiology Impression Discussion of test interpretation with radiology: I have reviewed the radiologist's reading. Radiologist Impression: EXAMINATION: XR CHEST CLINICAL INFORMATION: Central chest pain COMPARISON: 11/17/2023 TECHNIQUE: 2 views of the chest were obtained. FINDINGS: The cardiomediastinal silhouette is mildly enlarged. There is mild interstitial prominence without consolidation. No pleural effusion or pneumothorax. XR/XR chest 2V IMPRESSION: Mild interstitial prominence may reflect interstitial edema versus a small airways process. No consolidation. Electronically signed by: Remigio Gordon MD 12/14/2023 04:46 PM EDT RP EXAMINATION: CT HEAD WITHOUT CONTRAST CLINICAL INFORMATION: Bilateral facial and tongue numbness COMPARISON: CT head on 12/14/2022 TECHNIQUE: Contiguous axial imaging was performed from the skull base to vertex without intravenous administration of contrast. This CT examination was performed using dose optimization techniques as appropriate, variously including the following: *Automated exposure control *Adjustment of mA and/or kV according to patient size (this includes techniques or standardized protocols for targeted exams where dose is matched to indication/reason for exam; i.e. extremities or head) *Use of iterative reconstruction technique DLP: 670 mGy-cm FINDINGS: No acute intracranial hemorrhage or infarct. The clayton-white matter differentiation is preserved. No midline shift or hydrocephalus. No acute extra-axial fluid collections. The osseous structures are unremarkable. No orbital pathology. Moderate mucosal thickening of the paranasal sinuses. The mastoid air cells are clear. CT/CT head/brain wo IV con IMPRESSION: No acute intracranial hemorrhage or infarct. Electronically signed by: Naina Haley MD 12/14/2023 04:44 PM EDT RP Independent Historian Clinical information obtained from an independent historian. History obtained from or confirmed by: EMS External Record Review External record reviewed: Inpatient record, Office record, Outpatient record, Prior outpatient labs, Prior outpatient radiology, Primary care record and Outside ED record Prescription Management I considered prescription management with: Pain Medication Chronic Conditions Patient?s care impacted by: Other (COPD) Social Determinants Patient?s care significantly limited by Social Determinants of Health including: Other Social Determinant of Health Critical Care Time Critical Care Time Critical Care Time: No Discharge Plan Discharge Clinical Impression: Atypical chest pain Patient Disposition: Home, Self-Care Instructions: Noncardiac Chest Pain (ED) Additional Instructions: You were evaluated in the Emergency Department today for chest pain. Your evaluation has shown no signs of medical conditions requiring emergent intervention at this time, however I recommend that you follow up with your primary care provider or your jewel staker as soon as possible for further testing as an outpatient. If you do not have one, a referral has been provided. Please call them to make an appointment, they will not call you. I recommend you take 600mg ibuprofen every 6 hours or Tylenol 650mg every 6 hours as needed for pain. If needed, you can alternate these medications so that you take one medication every 3 hours. For example, at noon take ibuprofen, then at 3pm take Tylenol, then at 6pm take ibuprofen. Return to the Emergency Department if you experience worsening or uncontrolled chest pain, shortness of breath, light headedness, feeling faint, nausea, vomiting, or any other concerning symptoms. Prescriptions: No Action (DME) FreeStyle Lite Strips Strip Qty: 100 0RF Rx Instructions: Test four times a day or as directed. (DME) blood-glucose meter [FreeStyle Lite Meter] Kit Qty: 1 0RF Rx Instructions: As Directed (DME) lancets [FreeStyle Lancets] 28 gauge misc Qty: 100 0RF Rx Instructions: Test four times a day or as directed. duloxetine 20 mg capsule,delayed release(DR/EC) 20 mg PO BID metformin 750 mg tablet extended release 24 hr 750 mg PO BID albuterol sulfate 2.5 mg /3 mL (0.083 %) solution for nebulization 2.5 mg inhalation Q6H PRN (Reason: wheezing) sumatriptan succinate 25 mg tablet 25 mg PO DAILY PRN (Reason: Migraine Headache) Rx Instructions: MRX1 after 2 hours gabapentin 400 mg capsule 800 mg PO BEDTIME prazosin [Minipress] 5 mg capsule 5 mg PO BEDTIME Rx Instructions: TAKE WITH 2MG pantoprazole 40 mg tablet,delayed release (DR/EC) 40 mg PO BID@0630,1630 montelukast 10 mg tablet 10 mg PO BEDTIME cyanocobalamin (vitamin B-12) 1,000 mcg tablet, sublingual 1,000 mcg sublingual DAILY mirtazapine 15 mg tablet 22.5 mg PO BEDTIME gabapentin 100 mg capsule 100 mg PO BID PRN (Reason: Pain (Scale Score 4-6)) albuterol sulfate [Ventolin HFA] 90 mcg/actuation HFA aerosol inhaler 2 puff inhalation Q6H dicyclomine 10 mg capsule 20 mg PO Q8H PRN (Reason: Abdominal Pain) polyethylene glycol 3350 17 gram powder in packet 17 g PO DAILY PRN (Reason: Constipation) triamcinolone acetonide 55 mcg aerosol,spray 1 spray intranasal DAILY Trelegy Ellipta 100-62.5-25 mcg blister with device 1 inh inhalation DAILY Qty: 60 6RF azithromycin 250 mg tablet See Rx Instructions PO .COMPLEX Qty: 6 0RF Rx Instructions: For 250 mg dose pack: take 500 mg today (day 1), then 250 mg for 4 days (days 2-5) PO Referrals: [facility] [place] [facility] [Provider Group] [facility] [place] [facility] [Provider Group] [facility] [place] [facility] [Provider Group] Interventions: ED Discharge Assessment Last Done: 12/14/23 17:57 Discharge Date/Time: 12/14/23 18:03 Print Language: Taiwanese
[2023-12-14 14:06] VITALS: BP 130/84; PULSE 82; RESP 13; O2SAT 100
[2023-12-14 14:21] VITALS: BP 130/84; PULSE 60; RESP 16; TEMP 36.4; O2SAT 100; BMI 50.8
[2023-12-14 14:21] LABS: MANUAL DIFF FLAG NO
[2023-12-14 14:26] LABS: Basophils Absolute Auto 0.1 X10*3/uL (0.0-0.2); Basophils Percent Auto 0.9 % (0-2); Eosinophils Absolute Auto 0.6 X10*3/uL (0.0-0.4); Eosinophils Percent Auto 6.1 % (0-4); Hemoglobin 10.3 g/dl (12.0-16.0); Imm Gran Abs Auto 0.03 X10*3/uL (0.00-0.03); Imm Gran Pct Auto 0.3 % (0.0-0.4); Lymphocytes Absolute Auto 2.3 X10*3/uL (1.2-4.9); Lymphocytes Percent Auto 22.6 % (20-40); Mean Corpuscular HGB Conc 31.2 g/dl (31.0-35.0); Mean Corpuscular Hemoglobin 25.6 pg (27.0-33.0); Mean Corpuscular Volume 82.1 fL (80.0-98.0); Mean Platelet Volume 9.8 fL (9.4-12.3); Monocytes Absolute Auto 0.7 X10*3/uL (0.1-1.2); Monocytes Percent Auto 6.9 % (2-11); Neutrophils Absolute Auto 6.5 x10*3/uL (2.0-8.3); Neutrophils Percent Auto 63.2 % (45-73); Platelet Count 394 X10*3/uL (160-400); Red Blood Count 4.02 X10*6/uL (4.20-5.50); Red Cell Distribution Width 17.5 % (11.0-16.0); White Blood Count 10.3 X10*3/uL (4.8-10.8)
--- NOTE | 2023-12-14 14:32 | PC.NURSE ---
patient arrives via EMS from home, states this morning she had chest pain at around 8am, describes the pain as sharp, per EMS pain was reproducible and did not radiate. patient states shortly after the pain she started feeling lightheaded and like the room was spinning, patient denies hx of strokes in the past, states she has COPD and wears 3L O2 at baseline, saturating at 100%, patient placed on quality assurance monitor NSR appreciated on tele, VSS at this times, 18g IV placed in RAC by this RN, 22g IV in Left hand placed by EMS. LSCTA, denies nausea vomiting or diarrhea, denies fevers or sick contacts, endorsing still feeling dizzy at this time. patient to CT at this time, blood work drawn and sent to lab. awaiting eval
[2023-12-14 14:33] LABS: INTERNATIONAL NORM RATIO 1.1 (0.9-1.1)
[2023-12-14 14:49] LABS: Alanine Aminotransferase 16 U/L (0-31); Albumin Level 3.6 g/dL (3.5-5.0); Alkaline Phosphatase 115 U/L (39-117); Anion Gap 9 (12-20); Aspartate Amino Transferase 16 U/L (5-31); Bilirubin Total 0.3 mg/dL (0.0-1.0); Blood Urea Nitrogen 8 mg/dL (9-16); Calcium 9.6 mg/dL (8.4-10.2); Carbon Dioxide 33 mmol/L (22-29); Chloride 101 mmol/L (96-108); Creatinine Clr Calc Pharmacy 132.9; Estimated Glomerular Filt Rate > 60; Glucose Random 86 mg/dL (60-115); Lipase 8 U/L (8-78); Magnesium 2.3 mg/dL (1.6-2.6); Sodium 139 mmol/L (135-145); Total Protein 6.7 g/dL (6.5-8.0)
[2023-12-14 15:06] LABS: Troponin-I High Sensitivity < 2.7 ng/L (<3.5-17.0)
[2023-12-14 15:10] LABS: Influenza A PCR NEGATIVE (Negative); Influenza B PCR NEGATIVE (Negative); Resp Syncy Virus RNA Qual PCR NEGATIVE (Negative); SARS COV2 PCR INHOUSE NEGATIVE (Negative)
--- NOTE | 2023-12-14 15:33 | MHC.EDTECH ---
This tech attempted to obtain urine sample. Patient states she doesn't have to void at this time.
[2023-12-14 16:32] LABS: Appearance Urine Clear; Color Urine Yellow; Glucose Urine UA Negative (Negative); Leukocyte Esterase Urine Negative (Negative); Nitrite Urine Negative (Negative); Specific Gravity - Urine 1.025 (1.005-1.025); Urine Blood Negative (Negative); Urine Ketones Negative (Negative); Urine Protein Negative (Neg-Trace)
[2023-12-14 16:36] LABS: UPreg QC Valid YES; Urine Pregnancy NEGATIVE (NEGATIVE)
[2023-12-14] MEDS: ondansetron HCL 4 MG/2 ML VIAL IVPUSH (17:00)
[2023-12-14] MEDS: 0.9 % Sodium Chloride 1,000 ML 999 ML IV (17:03)
[2023-12-14 17:57] VITALS: BP 117/84; PULSE 84; RESP 16; TEMP 36.4; O2SAT 100
== END 2023-12-14 18:03 | disposition home or self-care (01) ==
PROVIDERS: Physician Assistant Medical; Emergency Provider Emergency Medicine
DX: R07.2 Precordial pain (principal); J44.9 Chronic obstructive pulmonary disease, unspecified; Z86.16 Personal history of COVID-19; Z87.09 Personal history of other diseases of the respiratory system; Z79.899 Other long term (current) drug therapy
CPT/HCPCS: 0241U; 70450; 71046; 80053; 81003; 81025; 83690; 83735; 84484; 85025; 85610; 93005; 96361; 96374; 99284; 99285; J2405

== ENCOUNTER 2023-12-27 19:28 | Emergency (ER) | payer OTHER, SELFPAY ==
--- NOTE | ~2023-12-27 | XR_ITS ---
EXAMINATION: XR CHEST CLINICAL INFORMATION: Shortness of breath COMPARISON: 12/14/2023 TECHNIQUE: Frontal view of the chest was obtained. FINDINGS: Progressive peribronchial thickening. No focal lesion. Heart and mediastinum stable. No pleural disease or other change. XR/XR chest 1V IMPRESSION: Progressive peribronchial thickening consistent with nonspecific bronchitis. Electronically signed by: Alfredo Castelan MD 12/27/2023 10:40 PM EDT RP
[2023-12-27 19:38] VITALS: BP 127/85; PULSE 93; O2SAT 100
[2023-12-27 19:44] VITALS: BP 147/81; PULSE 92; RESP 18; TEMP 36.8; O2SAT 100; BMI 49.2
--- NOTE | 2023-12-27 19:50 | ECG_ITS ---
Test Reason : SOB Blood Pressure : / mmHG Vent. Rate : 090 BPM Atrial Rate : 090 BPM P-R Int : 130 ms QRS Dur : 088 ms QT Int : 368 ms P-R-T Axes : 036 022 016 degrees QTc Int : 450 ms Normal sinus rhythm Normal ECG When compared with ECG of 14-DEC-2023 13:55, No significant change was found Referred By: Pao Mendez Electronically Signed By:DUSTY DILLARD
[2023-12-27] MEDS: Albuterol Sulfate 7.5 MG, Albuterol Sulfate (0.083%) 2.5 MG 10 MG INHALE (20:13)
[2023-12-27 20:15] LABS: MANUAL DIFF FLAG NO
[2023-12-27 20:16] VITALS: PULSE 92; RESP 20; O2SAT 100
[2023-12-27 20:17] LABS: Basophils Absolute Auto 0.1 X10*3/uL (0.0-0.2); Basophils Percent Auto 0.7 % (0-2); Eosinophils Absolute Auto 0.6 X10*3/uL (0.0-0.4); Eosinophils Percent Auto 5.9 % (0-4); Hematocrit 33.8 % (37.0-47.0); Hemoglobin 10.5 g/dl (12.0-16.0); Imm Gran Abs Auto 0.04 X10*3/uL (0.00-0.03); Imm Gran Pct Auto 0.4 % (0.0-0.4); Lymphocytes Absolute Auto 2.9 X10*3/uL (1.2-4.9); Mean Corpuscular HGB Conc 31.1 g/dl (31.0-35.0); Mean Corpuscular Hemoglobin 25.6 pg (27.0-33.0); Mean Corpuscular Volume 82.4 fL (80.0-98.0); Mean Platelet Volume 10.1 fL (9.4-12.3); Monocytes Absolute Auto 0.8 X10*3/uL (0.1-1.2); Monocytes Percent Auto 7.1 % (2-11); Neutrophils Absolute Auto 6.3 x10*3/uL (2.0-8.3); Neutrophils Percent Auto 58.9 % (45-73); Platelet Count 374 X10*3/uL (160-400); Red Cell Distribution Width 16.8 % (11.0-16.0); White Blood Count 10.7 X10*3/uL (4.8-10.8)
--- NOTE | 2023-12-27 20:19 | ED_ITS ---
HPI - SOB/Dyspnea General Chief Complaint: Dyspnea Stated Complaint: SOB/PANIC ATTACK PER EMS Time Seen by Provider: 12/27/23 19:48 Source: patient Limitations: language barrier History of Present Illness ED Provider: Pao Mendez PA-C HPI Narrative: 43-year-old female with history of morbid obesity, asthma/COPD on supplemental oxygen 2-5 L nasal cannula, diabetes and depression presents with shortness of breath x4 days. Patient states she has been having a productive cough, nasal congestion and wheezing. Patient states her sputum is yellowish green in color. Denies chest pain, fever, sick contacts with same symptoms. Related Data Home Medications ?Medication ?Instructions ?Recorded ?Confirmed albuterol sulfate 2.5 mg/3 mL 2.5 mg inhalation Q6H PRN wheezing 11/16/22 09/13/23 (0.083 %) solution for nebulization albuterol sulfate 90 mcg/actuation 2 puff inhalation Q6H 11/16/22 09/13/23 aerosol inhaler (Ventolin HFA) cyanocobalamin (vitamin B-12) 1,000 mcg sublingual DAILY 11/16/22 09/13/23 1,000 mcg sublingual tablet dicyclomine 10 mg capsule 20 mg PO Q8H PRN Abdominal Pain 11/16/22 09/13/23 gabapentin 100 mg capsule 100 mg PO BID PRN Pain (Scale 11/16/22 09/13/23 Score 4-6) gabapentin 400 mg capsule 800 mg PO BEDTIME 11/16/22 09/13/23 mirtazapine 15 mg tablet 22.5 mg PO BEDTIME 11/16/22 09/13/23 montelukast 10 mg tablet 10 mg PO BEDTIME 11/16/22 09/13/23 pantoprazole 40 mg tablet,delayed 40 mg PO BID@0630,1630 11/16/22 09/13/23 release polyethylene glycol 3350 17 gram 17 g PO DAILY PRN Constipation 11/16/22 09/13/23 oral powder packet prazosin 5 mg capsule (Minipress) 5 mg PO BEDTIME 11/16/22 09/13/23 sumatriptan succinate 25 mg tablet 25 mg PO DAILY PRN Migraine 11/16/22 09/13/23 Headache triamcinolone acetonide 55 mcg 1 spray intranasal DAILY 03/01/23 09/13/23 nasal spray aerosol duloxetine 20 mg capsule,delayed 20 mg PO BID 04/23/23 09/13/23 release metformin 750 mg tablet,extended 750 mg PO BID 06/10/23 09/13/23 release 24 hr Previous Rx's ?Medication ?Instructions ?Recorded blood sugar diagnostic (FreeStyle #100 ea 12/17/22 Lite Strips) blood-glucose meter (FreeStyle #1 ea 12/17/22 Lite Meter kit) lancets 28 gauge (FreeStyle #100 ea 12/17/22 Lancets) fluticasone fur. 100 mcg-umeclid 1 inh inhalation DAILY #60 ea 08/16/23 62.5 mcg-vilant 25 mcg inhalat.powder (Trelegy Ellipta) azithromycin 250 mg tablet See Rx Instructions PO .COMPLEX #6 11/15/23 tabs prednisone 20 mg tablet 40 mg (2 x 20 mg) PO DAILY #8 tabs 12/27/23 Allergies Allergy/AdvReac Type Severity Reaction Status Date / Time promethazine [From PHENERGAN] Allergy Unknown ITCHING Verified 12/27/23 19:47 egg Allergy Hives Verified 12/27/23 19:47 codeine [CODEINE] AdvReac Unknown STOMACH Verified 12/27/23 19:47 UPSET morphine [MORPHINE] AdvReac Unknown MORE PAIN Verified 12/27/23 19:47 Review of Systems 2 Review of Systems: Yes all other systems are reviewed and are negative Constitutional: Constitutional: Denies fever(s) ENT: Reports nasal congestion Cardiovascular: Cardiovascular: Denies chest pain and Reports dyspnea on exertion Respiratory: Respiratory: Reports chest congestion, Reports cough, Reports dyspnea on exertion and Reports wheezing Gastrointestinal: Gastrointestinal: Denies vomiting Allergic/Immunologic: Allergic/Immunologic: Reports wheezing [facility] Past Medical History Attestation statement: The following information was validated with the patient. Medical History Acute and chronic respiratory failure with hypoxia Acute exacerbation of chronic obstructive airways disease Abdominal pain Asthma with exacerbation Lower extremity edema Pneumonia Sepsis Acute exacerbation of COPD with asthma Acute respiratory failure with hypoxia Asthmaticus, status Chronic lung disease ILD (interstitial lung disease) Panic attack as reaction to stress Recurrent major depression Generalized anxiety disorder Morbid obesity Sinus infection Disc herniation H. pylori infection Depression Migraine Asthma Surgical History History of Family History Family History Mother Diabetes High cholesterol Social History Social History Household Members: Spouse Housing: Apartment Housing Other:: 2nd fl Do you presently have visiting nurse or other home services: Yes Alcohol intake: never Comment: Pt refusing bed/chair alarm- steady on feet, 1:1 Sitter Patient Tobacco Use Status: Former Tobacco user Tobacco use type: Cigarette Cigarette Packs Per Day: 4 Smoked in Last 30 Days: No e-Cigarette/Vaping Use: Never Used Second Hand Smoke Exposure: Yes Use of substances other than those prescribed or required for medical reasons: No Advance Directives: No Advance Directives Information Provided: No Advance Directives Date on File: 05/12/22 Do you have a plan to hurt others: No Plan Patient : No service: No Current occupational status: unemployed Physical Exam 2 Vital Signs: Vital Signs: Last Vital Signs Temp 98.2 F 12/27/23 19:44 Pulse 92 12/27/23 20:16 Resp 20 12/27/23 20:16 BP 147/81 H 12/27/23 19:44 Pulse Ox 100 12/27/23 19:44 O2 Del Method Nasal Cannula 12/27/23 19:44 Oxygen Flow Rate 2 12/27/23 19:44 BMI result Body Mass Index 49.2 Const: Other: Alert, appears older than stated age Orientation/consciousness: patient oriented x3 Resp: Other: Nonlabored respirations, diminished breath sounds, scattered occasional expiratory wheezes, faint bibasilar crackles Cardio: Other: Normal peripheral perfusion Skin: Other: Warm dry no rash Neuro: General: patient oriented x3, no focal motor deficits and CN's II-XI intact bilaterally Psych: Other: Calm cooperative Course Reevaluation(s) Reevaluation #1: Patient much improved after 1 updraft, she states now that she used her nebulizer at home prior to coming in Time: 22:12 Medications Administered Discontinued Medications Generic Name Dose Route Start Last Admin Trade Name Freq PRN Reason Stop Dose Admin Albuterol Sulfate 7.5 mg/ 10 mg 12/27/23 20:00 12/27/23 20:13 Albuterol Sulfate 2.5 mg INHALE 12/27/23 20:01 10 mg ONCE ONE Administration Magnesium Sulfate 2 gm in 50 mls @ 25 mls/hr 12/27/23 20:00 12/27/23 20:29 Magnesium Sulfate/H2o IV 12/27/23 21:59 25 mls/hr ONCE ONE Administration Methylprednisolone Sodium Succinate 125 mg 12/27/23 20:00 12/27/23 20:29 Methylprednisolone Sod Succ 125 Mg/2 Ml Vial IVPUSH 12/27/23 20:01 125 mg ONCE ONE Administration Ondansetron HCl 4 mg 12/27/23 21:21 12/27/23 21:23 Ondansetron Hcl 4 Mg/2 Ml Vial IVPUSH 12/27/23 21:22 4 mg ONCE ONE Administration Medical Decision Making Medical Decision Making MDM Narrative: 43-year-old female with history of morbid obesity, asthma/COPD on supplemental oxygen 2-5 L nasal cannula, diabetes and depression presents with shortness of breath x4 days. Patient states she has been having a productive cough, nasal congestion and wheezing. Patient states her sputum is yellowish green in color. Denies chest pain, fever, sick contacts with same symptoms. Problem: Obesity, asthma/COPD, diabetes History: Per patient I have considered the following differential diagnoses: Viral syndrome, pneumonia, asthma/COPD exacerbation, ACS, new heart failure Plan: Patient here with viral related symptoms, this is the likely cause for her current asthma/COPD exacerbation. We will obtain a viral panel, giving albuterol, ipratropium, Solu-Medrol and magnesium. I also considered ACS, her shortness of breath could be a cardiac equivalent, we will screen troponin, chest x-ray and EKG. Also thought about new heart failure, however she is not overtly hypertensive, she is not newly hypoxic, she does not appear volume overloaded on exam, we will screen a BNP. I have independently reviewed the following tests: EKG: Normal sinus rhythm, rate of 90, no ischemic changes no ectopy Labs: No leukocytosis, not anemic, no electrolyte abnormality, respiratory panel pending, trop less than 2.7, BNP 14 Chest x-ray: No pulmonary edema, no pleural effusion no pneumonia Lab Data 12/27/23 20:11 12/27/23 20:11 Labs: Lab Results 12/27/23 Range/Units 20:11 WBC 10.7 (4.8-10.8) X10*3/uL RBC 4.10 L (4.20-5.50) X10*6/uL Hgb 10.5 L (12.0-16.0) g/dl Hct 33.8 L (37.0-47.0) % MCV 82.4 (80.0-98.0) fL MCH 25.6 L (27.0-33.0) pg MCHC 31.1 (31.0-35.0) g/dl RDW 16.8 H (11.0-16.0) % Plt Count 374 (160-400) X10*3/uL MPV 10.1 (9.4-12.3) fL Immature Gran % (Auto) 0.4 (0.0-0.4) % Neut % (Auto) 58.9 (45-73) % Lymph % (Auto) 27.0 (20-40) % Isabela % (Auto) 7.1 (2-11) % Eos % (Auto) 5.9 H (0-4) % Baso % (Auto) 0.7 (0-2) % Lymph # (Auto) 2.9 (1.2-4.9) X10*3/uL Isabela # (Auto) 0.8 (0.1-1.2) X10*3/uL Eos # (Auto) 0.6 H (0.0-0.4) X10*3/uL Baso # (Auto) 0.1 (0.0-0.2) X10*3/uL Abs Immat Gran (auto) 0.04 H (0.00-0.03) X10*3/uL Absolute Neuts (auto) 6.3 (2.0-8.3) x10*3/uL Absolute Nucleated RBC 0.000 (0.0-0.012) X10*3/uL Nucleated RBC % (auto) 0.0 (0.0-0.2) /100WBC Sodium 137 (135-145) mmol/L Potassium 3.9 (3.3-5.1) mmol/L Chloride 103 (96-108) mmol/L Carbon Dioxide 24 (22-29) mmol/L Anion Gap 14 (12-20) BUN 13 (9-16) mg/dL Creatinine 0.69 (0.5-1.4) mg/dL Estim Creat Clear Calc 124.7 Estimated GFR > 60 Random Glucose 177 H (60-115) mg/dL Calcium 9.3 (8.4-10.2) mg/dL Magnesium 2.0 (1.6-2.6) mg/dL Total Bilirubin 0.2 (0.0-1.0) mg/dL AST 15 (5-31) U/L ALT 14 (0-31) U/L Alkaline Phosphatase 124 H (39-117) U/L Troponin I High Sens < 2.7 (<3.5-17.0) ng/L B-Natriuretic Peptide 14 (<100) pg/mL Total Protein 6.9 (6.5-8.0) g/dL Albumin 3.7 (3.5-5.0) g/dL Discharge Plan Discharge Clinical Impression: Acute exacerbation of chronic obstructive pulmonary disease Patient Disposition: Home, Self-Care Instructions: COPD (Chronic Obstructive Pulmonary Disease) (ED) Additional Instructions: Thus far, the labs that resulted are normal for you, there are no concerning changes on her EKG or your chest x-ray. The viral panel is pending, you can check your patient portal for results tomorrow. See home care instructions, use your inhaler/nebulizer at home as directed. Take the steroid as directed, 2 no you do not require any additional steroid until tomorrow morning. Follow up with your primary care provider as needed Prescriptions: New prednisone 20 mg tablet 40 mg PO DAILY Qty: 8 0RF No Action (DME) FreeStyle Lite Strips Strip Qty: 100 0RF Rx Instructions: Test four times a day or as directed. (DME) blood-glucose meter [FreeStyle Lite Meter] Kit Qty: 1 0RF Rx Instructions: As Directed (DME) lancets [FreeStyle Lancets] 28 gauge misc Qty: 100 0RF Rx Instructions: Test four times a day or as directed. duloxetine 20 mg capsule,delayed release(DR/EC) 20 mg PO BID metformin 750 mg tablet extended release 24 hr 750 mg PO BID albuterol sulfate 2.5 mg /3 mL (0.083 %) solution for nebulization 2.5 mg inhalation Q6H PRN (Reason: wheezing) sumatriptan succinate 25 mg tablet 25 mg PO DAILY PRN (Reason: Migraine Headache) Rx Instructions: MRX1 after 2 hours gabapentin 400 mg capsule 800 mg PO BEDTIME prazosin [Minipress] 5 mg capsule 5 mg PO BEDTIME Rx Instructions: TAKE WITH 2MG pantoprazole 40 mg tablet,delayed release (DR/EC) 40 mg PO BID@0630,1630 montelukast 10 mg tablet 10 mg PO BEDTIME cyanocobalamin (vitamin B-12) 1,000 mcg tablet, sublingual 1,000 mcg sublingual DAILY mirtazapine 15 mg tablet 22.5 mg PO BEDTIME gabapentin 100 mg capsule 100 mg PO BID PRN (Reason: Pain (Scale Score 4-6)) albuterol sulfate [Ventolin HFA] 90 mcg/actuation HFA aerosol inhaler 2 puff inhalation Q6H dicyclomine 10 mg capsule 20 mg PO Q8H PRN (Reason: Abdominal Pain) polyethylene glycol 3350 17 gram powder in packet 17 g PO DAILY PRN (Reason: Constipation) triamcinolone acetonide 55 mcg aerosol,spray 1 spray intranasal DAILY Trelegy Ellipta 100-62.5-25 mcg blister with device 1 inh inhalation DAILY Qty: 60 6RF azithromycin 250 mg tablet See Rx Instructions PO .COMPLEX Qty: 6 0RF Rx Instructions: For 250 mg dose pack: take 500 mg today (day 1), then 250 mg for 4 days (days 2-5) PO Print Language: Nepalese
[2023-12-27] MEDS: Magnesium Sulfate/H2O 2 GM/50 ML PIGGYBACK IV (20:29)
[2023-12-27] MEDS: methylPREDNISolone Sod Succ 125 MG/2 ML VIAL IVPUSH (20:29)
[2023-12-27 20:35] LABS: Alanine Aminotransferase 14 U/L (0-31); Albumin Level 3.7 g/dL (3.5-5.0); Alkaline Phosphatase 124 U/L (39-117); Anion Gap 14 (12-20); Aspartate Amino Transferase 15 U/L (5-31); Bilirubin Total 0.2 mg/dL (0.0-1.0); Blood Urea Nitrogen 13 mg/dL (9-16); Calcium 9.3 mg/dL (8.4-10.2); Carbon Dioxide 24 mmol/L (22-29); Chloride 103 mmol/L (96-108); Creatinine Clr Calc Pharmacy 124.7; Estimated Glomerular Filt Rate > 60; Glucose Random 177 mg/dL (60-115); Potassium 3.9 mmol/L (3.3-5.1); Sodium 137 mmol/L (135-145); Total Protein 6.9 g/dL (6.5-8.0)
[2023-12-27 20:40] LABS: B Type Natriuretic Peptide 14 pg/mL (<100)
[2023-12-27 20:44] LABS: Troponin-I High Sensitivity < 2.7 ng/L (<3.5-17.0)
[2023-12-27] MEDS: ondansetron HCL 4 MG/2 ML VIAL IVPUSH (21:23)
[2023-12-27 22:06] VITALS: BP 144/71; PULSE 100; RESP 16; TEMP 36.9; O2SAT 97
[2023-12-27 22:48] VITALS: BP 144/71; PULSE 100; RESP 16; TEMP 36.9; O2SAT 97
[2023-12-28 09:52] LABS: Adenovirus PCR Not Detected (Not Detect.); Bordetella parapertussis PCR Not Detected (Not Detect.); Bordetella pertussis PCR Not Detected (Not Detect.); Chlamydia pneumoniae PCR Not Detected (Not Detect.); Coronavirus 229E PCR Not Detected (Not Detect.); Coronavirus HKU1 PCR Not Detected (Not Detect.); Coronavirus NL63 PCR Not Detected (Not Detect.); Coronavirus OC43 PCR Not Detected (Not Detect.); Human metapneumovirus PCR Not Detected (Not Detect.); Influenza A PCR Not Detected (Not Detect.); Influenza B PCR Not Detected (Not Detect.); Mycoplasma pneumoniae PCR Not Detected (Not Detect.); Parainfluenza 1 PCR Not Detected (Not Detect.); Parainfluenza 2 PCR Not Detected (Not Detect.); Parainfluenza 3 PCR Not Detected (Not Detect.); Parainfluenza 4 PCR Not Detected (Not Detect.); RSV PCR Not Detected (Not Detect.); Rhino/Enterovirus PCR Not Detected (Not Detect.)
[2023-12-28 09:55] LABS: SARS-CoV-2 PCR Not Detected (Not Detect.)
== END 2023-12-27 22:49 | disposition home or self-care (01) ==
PROVIDERS: Physician Assistant Medical; Emergency Provider Emergency Medicine
DX: J44.1 Chronic obstructive pulmonary disease with (acute) exacerbation (principal); R06.02 Shortness of breath; F41.0 Panic disorder [episodic paroxysmal anxiety]; R05.9 Cough, unspecified; Z79.899 Other long term (current) drug therapy; Z87.891 Personal history of nicotine dependence; Z99.81 Dependence on supplemental oxygen
CPT/HCPCS: 36415; 71045; 80053; 83735; 83880; 84484; 85025; 87633; 93005; 94640; 96374; 96375; 99284; 99285; J2405; J2919; J3475

== ENCOUNTER 2024-01-01 17:24 | Emergency (ER) | payer OTHER, SELFPAY ==
--- NOTE | ~2024-01-01 | XR_ITS ---
EXAMINATION: XR CHEST CLINICAL INFORMATION: Pain COMPARISON: 12/27/23 TECHNIQUE: Frontal view of the chest was obtained. FINDINGS: Diffuse peribronchial vascular opacities may reflect edema or atypical infection. No effusion or pneumothorax. Unchanged cardiomediastinal silhouette. XR/XR chest 1V IMPRESSION: Diffuse peribronchial vascular opacities may reflect edema or atypical infection. Electronically signed by: Laurie Scruggs MD 01/01/2024 10:12 PM EDT
[2024-01-01 17:38] VITALS: BP 188/98; PULSE 105; O2SAT 98
[2024-01-01 17:51] LABS: Glucose, Whole Blood 344 mg/dL (60-115)
[2024-01-01 17:59] VITALS: BP 158/76; PULSE 99; RESP 13; TEMP 36.7; O2SAT 99; BMI 53.1
[2024-01-01 18:02] VITALS: BP 158/76; PULSE 99; RESP 13; TEMP 36.7; O2SAT 99
--- NOTE | 2024-01-01 18:03 | ECG_ITS ---
Test Reason : SOB Blood Pressure : / mmHG Vent. Rate : 092 BPM Atrial Rate : 092 BPM P-R Int : 114 ms QRS Dur : 088 ms QT Int : 356 ms P-R-T Axes : 042 024 018 degrees QTc Int : 440 ms Normal sinus rhythm Normal ECG When compared with ECG of 27-DEC-2023 19:59, No significant change was found Referred By: Rula Doyle Electronically Signed By:DUSTY DILLARD
--- NOTE | 2024-01-01 18:10 | PC.NURSE ---
Pt comes to ED today with c/o elevated BS d/t Rx from Prednisone. Pt reports pain 9/10 to her chest and head. BS is 344 upon arrival. VSS, A&Ox3, afebrile. Sating at 99% on 2L O2--Pt reports using 5L at home. Citizen [place] speaking, risk engineer utilized.
[2024-01-01 18:30] LABS: MANUAL DIFF FLAG NO
[2024-01-01 18:40] LABS: Basophils Absolute Auto 0.1 X10*3/uL (0.0-0.2); Basophils Percent Auto 0.4 % (0-2); Eosinophils Percent Auto 0.1 % (0-4); Hematocrit 34.5 % (37.0-47.0); Hemoglobin 10.8 g/dl (12.0-16.0); Imm Gran Abs Auto 0.42 X10*3/uL (0.00-0.03); Imm Gran Pct Auto 2.8 % (0.0-0.4); Lymphocytes Absolute Auto 1.7 X10*3/uL (1.2-4.9); Lymphocytes Percent Auto 11.1 % (20-40); Mean Corpuscular HGB Conc 31.3 g/dl (31.0-35.0); Mean Corpuscular Hemoglobin 25.5 pg (27.0-33.0); Mean Corpuscular Volume 81.6 fL (80.0-98.0); Mean Platelet Volume 10.6 fL (9.4-12.3); Monocytes Absolute Auto 0.3 X10*3/uL (0.1-1.2); Monocytes Percent Auto 1.9 % (2-11); Neutrophils Absolute Auto 12.4 x10*3/uL (2.0-8.3); Neutrophils Percent Auto 83.7 % (45-73); Platelet Count 395 X10*3/uL (160-400); Red Blood Count 4.23 X10*6/uL (4.20-5.50); Red Cell Distribution Width 16.5 % (11.0-16.0); White Blood Count 14.8 X10*3/uL (4.8-10.8)
[2024-01-01 18:47] LABS: Alanine Aminotransferase 24 U/L (0-31); Albumin Level 3.8 g/dL (3.5-5.0); Alkaline Phosphatase 158 U/L (39-117); Anion Gap 15 (12-20); Aspartate Amino Transferase 10 U/L (5-31); Bilirubin Total 0.2 mg/dL (0.0-1.0); Blood Urea Nitrogen 18 mg/dL (9-16); Calcium 8.9 mg/dL (8.4-10.2); Carbon Dioxide 24 mmol/L (22-29); Chloride 101 mmol/L (96-108); Creatinine Clr Calc Pharmacy 88.6; Estimated Glomerular Filt Rate > 60; Glucose Random 348 mg/dL (60-115); Magnesium 2.1 mg/dL (1.6-2.6); Potassium 4.2 mmol/L (3.3-5.1); Sodium 136 mmol/L (135-145)
[2024-01-01 19:12] LABS: Influenza A PCR NEGATIVE (Negative); Influenza B PCR NEGATIVE (Negative); Resp Syncy Virus RNA Qual PCR NEGATIVE (Negative); SARS COV2 PCR INHOUSE NEGATIVE (Negative)
[2024-01-01 19:17] LABS: Troponin-I High Sensitivity < 2.7 ng/L (<3.5-17.0)
[2024-01-01 20:48] VITALS: BP 142/77; PULSE 94; RESP 17; TEMP 37.1; O2SAT 99
--- NOTE | 2024-01-01 20:58 | ED_ITS ---
HPI - General Adult General Chief complaint: General Medical Stated complaint: hx diabetes, dizziness, cold sweats, RAMÍREZ, 2L O2 Time Seen by Provider: 01/01/24 20:54 Source: patient Mode of arrival: ambulatory Limitations: no limitations History of Present Illness ED Provider: GILMA SANFORD narrative: 43 yo female with PMH of asthma-COPD on 2L NC, DM, GERD, here with c/o being seen for asthma on Tuesday starting prednisone and since then headaches, chest tightness, not eating - blood sugar has been up since then she called her PCP who told her most symptoms due to prednisone (last dose was Tuesday) she was advised to drink water. She has not been on anything but Trulicity for 3+ months. Her sugar was in 300s at home. She was told by PCP to come here. Patient notes she just doesn't feel good. complaint: doesn't feel well Onset (ago): day(s) (since Tuesday) Radiation: non-radiation Severity: moderate Pain Consistency: constant Relieving factors: none Exacerbating factors: none Associated symptoms: chest pain, headaches, loss of appetite, malaise and weakness Treatments prior to arrival: none Related Data Home Medications ?Medication ?Instructions ?Recorded ?Confirmed albuterol sulfate 2.5 mg/3 mL 2.5 mg inhalation Q6H PRN wheezing 11/16/22 09/13/23 (0.083 %) solution for nebulization albuterol sulfate 90 mcg/actuation 2 puff inhalation Q6H 11/16/22 09/13/23 aerosol inhaler (Ventolin HFA) cyanocobalamin (vitamin B-12) 1,000 mcg sublingual DAILY 11/16/22 09/13/23 1,000 mcg sublingual tablet dicyclomine 10 mg capsule 20 mg PO Q8H PRN Abdominal Pain 11/16/22 09/13/23 gabapentin 100 mg capsule 100 mg PO BID PRN Pain (Scale 11/16/22 09/13/23 Score 4-6) gabapentin 400 mg capsule 800 mg PO BEDTIME 11/16/22 09/13/23 mirtazapine 15 mg tablet 22.5 mg PO BEDTIME 11/16/22 09/13/23 montelukast 10 mg tablet 10 mg PO BEDTIME 11/16/22 09/13/23 pantoprazole 40 mg tablet,delayed 40 mg PO BID@30,1630 11/16/22 09/13/23 release polyethylene glycol 3350 17 gram 17 g PO DAILY PRN Constipation 11/16/22 09/13/23 oral powder packet prazosin 5 mg capsule (Minipress) 5 mg PO BEDTIME 11/16/22 09/13/23 sumatriptan succinate 25 mg tablet 25 mg PO DAILY PRN Migraine 11/16/22 09/13/23 Headache triamcinolone acetonide 55 mcg 1 spray intranasal DAILY 03/01/23 09/13/23 nasal spray aerosol duloxetine 20 mg capsule,delayed 20 mg PO BID 04/23/23 09/13/23 release metformin 750 mg tablet,extended 750 mg PO BID 06/10/23 09/13/23 release 24 hr Previous Rx's ?Medication ?Instructions ?Recorded blood sugar diagnostic (FreeStyle #100 ea 12/17/22 Lite Strips) blood-glucose meter (FreeStyle #1 ea 12/17/22 Lite Meter kit) lancets 28 gauge (FreeStyle #100 ea 12/17/22 Lancets) fluticasone fur. 100 mcg-umeclid 1 inh inhalation DAILY #60 ea 08/16/23 62.5 mcg-vilant 25 mcg inhalat.powder (Trelegy Ellipta) azithromycin 250 mg tablet See Rx Instructions PO .COMPLEX #6 11/15/23 tabs prednisone 20 mg tablet 40 mg (2 x 20 mg) PO DAILY #8 tabs 12/27/23 amoxicillin 875 mg-potassium 1 tab PO BID #13 tabs 01/01/24 clavulanate 125 mg tablet azithromycin 250 mg tablet 250 mg PO DAILY 4 days #4 tabs 01/01/24 Allergies Allergy/AdvReac Type Severity Reaction Status Date / Time promethazine [From PHENERGAN] Allergy Unknown ITCHING Verified 01/01/24 18:01 egg Allergy Hives Verified 01/01/24 18:01 codeine [CODEINE] AdvReac Unknown STOMACH Verified 01/01/24 18:01 UPSET morphine [MORPHINE] AdvReac Unknown MORE PAIN Verified 01/01/24 18:01 Review of Systems 2 Review of Systems: Constitutional : No Fever, No Chills, pos Fatigue ENT/Mouth : No sore throat, No Rhinorrhea Eyes: No Eye Pain, No Swelling, No Redness Cardiovascular : pos Chest Pain, No SOB, No Dyspnea on Exertion Respiratory : pos Cough, No Sputum Gastrointestinal : No Nausea, No Vomiting, No Diarrhea, No abdominal Pain Genitourinary : No Dysuria, No Urinary Frequency, No Hematuria, Musculoskeletal : No joint pain, No Myalgias, No Joint Swelling Skin : No Skin Lesions, No rash Neuro : pos Weakness, No Numbness, No Dizziness, positive Headache Psych : No Anxiety/Panic, No Depression All other systems reviewed and are negative [facility] Past Medical History Attestation statement: The following information was validated with the patient. Source: old records reviewed Medical History Acute and chronic respiratory failure with hypoxia Acute exacerbation of chronic obstructive airways disease Abdominal pain Asthma with exacerbation Lower extremity edema Pneumonia Sepsis Acute exacerbation of COPD with asthma Acute respiratory failure with hypoxia Asthmaticus, status Chronic lung disease ILD (interstitial lung disease) Panic attack as reaction to stress Recurrent major depression Generalized anxiety disorder Morbid obesity Sinus infection Disc herniation H. pylori infection Depression Migraine Asthma Surgical History History of Family History Family History Mother Diabetes High cholesterol Social History Social History Household Members: Spouse Housing: Apartment Housing Other:: 2nd wv Do you presently have visiting nurse or other home services: Yes Alcohol intake: never Comment: Pt refusing bed/chair alarm- steady on feet, 1:1 Sitter Patient Tobacco Use Status: Former Tobacco user Tobacco use type: Cigarette Cigarette Packs Per Day: 4 Smoked in Last 30 Days: No e-Cigarette/Vaping Use: Never Used Second Hand Smoke Exposure: Yes Use of substances other than those prescribed or required for medical reasons: No Advance Directives: No Advance Directives Information Provided: No Advance Directives Date on File: 05/12/22 Do you have a plan to hurt others: No Plan service: No Current occupational status: unemployed Physical Exam ED Vital Signs: Vital Signs - 24 hr 01/01/24 17:59 01/01/24 18:02 01/01/24 20:48 Temperature 98.1 F 98.1 F 98.7 F Pulse Rate 99 99 94 Respiratory Rate 13 13 17 Blood Pressure 158/76 H 158/76 H 142/77 H Pulse Oximetry 99 99 99 Oxygen Delivery Method Room Air Nasal Cannula Nasal Cannula Oxygen Flow Rate 2 2 01/01/24 22:00 Temperature 98.5 F Pulse Rate 94 Respiratory Rate 17 Blood Pressure 176/83 H Pulse Oximetry 100 Oxygen Delivery Method Nasal Cannula Oxygen Flow Rate 2 BMI result Body Mass Index 53.1 Appearance: Alert. Oriented X3. No acute distress. Eyes: Pupils equal, round and reactive to light. ENT: Pharynx normal. Neck: Normal inspection. Neck supple. CVS: Normal heart rate and rhythm. Pulses normal. Respiratory: No respiratory distress. Breath sounds normal. Abdomen: Soft and nontender. Skin: Skin warm and dry. Normal skin color. Normal skin turgor. Extremities: No lower extremity edema. No calf ttp Neuro: Oriented X 3. No motor deficit. No sensory deficit. Course Course Course Narrative: repeat bs normal no interventions Medications Administered Discontinued Medications Generic Name Dose Route Start Last Admin Trade Name Freq PRN Reason Stop Dose Admin Sodium Chloride 500 mls @ 500 mls/hr 01/01/24 21:32 01/01/24 23:10 Ns IV 01/01/24 22:31 Not Given .Q1H ONE Medical Decision Making Medical Decision Making MDM Narrative: 43 yo female with PMH of asthma-COPD on 2L NC, DM, GERD, here with c/o malaise, chest pains, headaches, hyperglycemia after starting prednisone though last dose was today. At this time WBC count due to prednisone, she has no cough per her reports, she is only on trulicity at this time initial BS only in 300s and she has no gap - chest pain is atypical in nature initial EKG nonischemic and trop is flat she has no signs of DVT and her pain is not pleuritic without any signs of DVT VTE seems unlikely will add on viral panel and BNP. Hemoglobin A1c ordered as well for her PCP to follow up with. Differential Diagnosis Differential Diagnoses: The differential diagnosis associated with the presentation includes hyperglycemia, viral syndrome, bronchitis, pneumonia Admission/Observation Consideration of admission/observation: Escalation of care including admission/observation considered no increased O2 demands, VS stable, patient very upset when trying to talk to her has stated she is not going to stay here and didn't want to come here. I did explain the hemoglobin A1c will be resulted in AM and she can ask her doctor to follow up will start on oral augmentin and azithromycin for early bronchitis atypical pneumonia negative trop, BNP no leg edema to suggest CHF Lab Data MDM Lab Attestation statement: I reviewed the patient's lab results. H/H at baseline 01/01/24 18:26 01/01/24 18:26 Labs: Lab Results 01/01/24 01/01/24 01/01/24 Range/Units 17:47 18:26 22:09 WBC 14.8 H (4.8-10.8) X10*3/uL RBC 4.23 (4.20-5.50) X10*6/uL Hgb 10.8 L (12.0-16.0) g/dl Hct 34.5 L (37.0-47.0) % MCV 81.6 (80.0-98.0) fL MCH 25.5 L (27.0-33.0) pg MCHC 31.3 (31.0-35.0) g/dl RDW 16.5 H (11.0-16.0) % Plt Count 395 (160-400) X10*3/uL MPV 10.6 (9.4-12.3) fL Immature Gran % (Auto) 2.8 H (0.0-0.4) % Neut % (Auto) 83.7 H (45-73) % Lymph % (Auto) 11.1 L (20-40) % [place] % (Auto) 1.9 L (2-11) % Eos % (Auto) 0.1 (0-4) % Baso % (Auto) 0.4 (0-2) % Lymph # (Auto) 1.7 (1.2-4.9) X10*3/uL [place] # (Auto) 0.3 (0.1-1.2) X10*3/uL Eos # (Auto) 0.0 (0.0-0.4) X10*3/uL Baso # (Auto) 0.1 (0.0-0.2) X10*3/uL Abs Immat Gran (auto) 0.42 H (0.00-0.03) X10*3/uL Absolute Neuts (auto) 12.4 H (2.0-8.3) x10*3/uL Absolute Nucleated RBC 0.000 (0.0-0.012) X10*3/uL Nucleated RBC % (auto) 0.0 (0.0-0.2) /100WBC Sodium 136 (135-145) mmol/L Potassium 4.2 (3.3-5.1) mmol/L Chloride 101 (96-108) mmol/L Carbon Dioxide 24 (22-29) mmol/L Anion Gap 15 (12-20) BUN 18 H (9-16) mg/dL Creatinine 0.98 (0.5-1.4) mg/dL Estim Creat Clear Calc 88.6 Estimated GFR > 60 POC Glucose 344 H (60-115) mg/dL Random Glucose 348 H (60-115) mg/dL Calcium 8.9 (8.4-10.2) mg/dL Magnesium 2.1 (1.6-2.6) mg/dL Total Bilirubin 0.2 (0.0-1.0) mg/dL AST 10 (5-31) U/L ALT 24 (0-31) U/L Alkaline Phosphatase 158 H (39-117) U/L Troponin I High Sens < 2.7 (<3.5-17.0) ng/L B-Natriuretic Peptide 13 (<100) pg/mL Total Protein 7.0 (6.5-8.0) g/dL Albumin 3.8 (3.5-5.0) g/dL Influenza Type A (PCR) NEGATIVE (Negative) Influenza Type B (PCR) NEGATIVE (Negative) RSV RNA Qual (PCR) NEGATIVE (Negative) SARS-CoV-2 RNA (RT-PCR) NEGATIVE (Negative) 01/01/24 Range/Units 22:17 WBC (4.8-10.8) X10*3/uL RBC (4.20-5.50) X10*6/uL Hgb (12.0-16.0) g/dl Hct (37.0-47.0) % MCV (80.0-98.0) fL MCH (27.0-33.0) pg MCHC (31.0-35.0) g/dl RDW (11.0-16.0) % Plt Count (160-400) X10*3/uL MPV (9.4-12.3) fL Immature Gran % (Auto) (0.0-0.4) % Neut % (Auto) (45-73) % Lymph % (Auto) (20-40) % [place] % (Auto) (2-11) % Eos % (Auto) (0-4) % Baso % (Auto) (0-2) % Lymph # (Auto) (1.2-4.9) X10*3/uL [place] # (Auto) (0.1-1.2) X10*3/uL Eos # (Auto) (0.0-0.4) X10*3/uL Baso # (Auto) (0.0-0.2) X10*3/uL Abs Immat Gran (auto) (0.00-0.03) X10*3/uL Absolute Neuts (auto) (2.0-8.3) x10*3/uL Absolute Nucleated RBC (0.0-0.012) X10*3/uL Nucleated RBC % (auto) (0.0-0.2) /100WBC Sodium (135-145) mmol/L Potassium (3.3-5.1) mmol/L Chloride (96-108) mmol/L Carbon Dioxide (22-29) mmol/L Anion Gap (12-20) BUN (9-16) mg/dL Creatinine (0.5-1.4) mg/dL Estim Creat Clear Calc Estimated GFR POC Glucose 122 H (60-115) mg/dL Random Glucose (60-115) mg/dL Calcium (8.4-10.2) mg/dL Magnesium (1.6-2.6) mg/dL Total Bilirubin (0.0-1.0) mg/dL AST (5-31) U/L ALT (0-31) U/L Alkaline Phosphatase (39-117) U/L Troponin I High Sens (<3.5-17.0) ng/L B-Natriuretic Peptide (<100) pg/mL Total Protein (6.5-8.0) g/dL Albumin (3.5-5.0) g/dL Influenza Type A (PCR) (Negative) Influenza Type B (PCR) (Negative) RSV RNA Qual (PCR) (Negative) SARS-CoV-2 RNA (RT-PCR) (Negative) Independent Interpretation I performed an independent interpretation of an: EKG and Plain X-Ray (atypical infection) Interpretation: Rate: 92 Rhythm: NSR [place]: normal Normal P waves. Normal DONALD. Normal QRS complex. ST T wave : normal no JAROCHO qTC: 440 prior studies: no acute ischemia The study has been interpreted contemporaneously by me. . Radiology Impression Discussion of test interpretation with radiology: I have reviewed the radiologist's reading. Independent Historian Clinical information obtained from an independent historian. History obtained from or confirmed by: EMS External Record Review External record reviewed: Inpatient record and Office record Prescription Management I considered prescription management with: Antibiotic Discharge Plan Discharge Clinical Impression: Acute hyperglycemia, Atypical pneumonia Patient Disposition: Home, Self-Care Instructions: Pneumonia (ED), Diabetic Hyperglycemia (ED) Additional Instructions: you have a blood test pending for your hemoglobin A1c your doctor can follow up with it tomorrow it will not be resulted until tomorrow return for any worsening symptoms - elevated blood sugar, pains, increased work of breathing or any other concerns On amoxicillin-clavulanate, softer bowel movements are to be expected. Call your provider if you move your bowels more than 4 times a day, your bowel movements are almost all liquid, or you get a rash.? On azithromycin, call your provider if you develop new ringing in your ears, new problems hearing, dizziness, palpitations, abdominal pain, nausea, or diarrhea. Prescriptions: New azithromycin 250 mg tablet 250 mg PO DAILY 4 Days Qty: 4 0RF Rx Instructions: start on day 2 of therapy amoxicillin-pot clavulanate 875-125 mg tablet 1 tab PO BID Qty: 13 0RF No Action (DME) FreeStyle Lite Strips Strip Qty: 100 0RF Rx Instructions: Test four times a day or as directed. (DME) blood-glucose meter [FreeStyle Lite Meter] Kit Qty: 1 0RF Rx Instructions: As Directed (DME) lancets [FreeStyle Lancets] 28 gauge misc Qty: 100 0RF Rx Instructions: Test four times a day or as directed. duloxetine 20 mg capsule,delayed release(DR/EC) 20 mg PO BID metformin 750 mg tablet extended release 24 hr 750 mg PO BID albuterol sulfate 2.5 mg /3 mL (0.083 %) solution for nebulization 2.5 mg inhalation Q6H PRN (Reason: wheezing) sumatriptan succinate 25 mg tablet 25 mg PO DAILY PRN (Reason: Migraine Headache) Rx Instructions: MRX1 after 2 hours gabapentin 400 mg capsule 800 mg PO BEDTIME prazosin [Minipress] 5 mg capsule 5 mg PO BEDTIME Rx Instructions: TAKE WITH 2MG pantoprazole 40 mg tablet,delayed release (DR/EC) 40 mg PO BID@0630,1630 montelukast 10 mg tablet 10 mg PO BEDTIME cyanocobalamin (vitamin B-12) 1,000 mcg tablet, sublingual 1,000 mcg sublingual DAILY mirtazapine 15 mg tablet 22.5 mg PO BEDTIME gabapentin 100 mg capsule 100 mg PO BID PRN (Reason: Pain (Scale Score 4-6)) albuterol sulfate [Ventolin HFA] 90 mcg/actuation HFA aerosol inhaler 2 puff inhalation Q6H dicyclomine 10 mg capsule 20 mg PO Q8H PRN (Reason: Abdominal Pain) polyethylene glycol 3350 17 gram powder in packet 17 g PO DAILY PRN (Reason: Constipation) triamcinolone acetonide 55 mcg aerosol,spray 1 spray intranasal DAILY prednisone 20 mg tablet 40 mg PO DAILY Qty: 8 0RF Trelegy Ellipta 100-62.5-25 mcg blister with device 1 inh inhalation DAILY Qty: 60 6RF azithromycin 250 mg tablet See Rx Instructions PO .COMPLEX Qty: 6 0RF Rx Instructions: For 250 mg dose pack: take 500 mg today (day 1), then 250 mg for 4 days (days 2-5) PO Print Language: Mongolian
[2024-01-01 22:00] VITALS: BP 176/83; PULSE 94; RESP 17; TEMP 36.9; O2SAT 100
--- NOTE | 2024-01-01 22:21 | PC.NURSE ---
t/w attempted to place IV but was unsuccessful X 2, requested another RN attempt but also unsuccessful. MD aware, request to check POC. POC 122, MD aware.
[2024-01-01 22:22] LABS: Glucose, Whole Blood 122 mg/dL (60-115)
[2024-01-01 22:48] LABS: B Type Natriuretic Peptide 13 pg/mL (<100)
[2024-01-01 23:19] VITALS: BP 149/83; PULSE 92; RESP 15; O2SAT 97
[2024-01-01] MEDS: Azithromycin 500 MG TABLET PO (23:31)
[2024-01-01] MEDS: Amoxicillin/Potassium Clav 875 MG TABLET PO (23:31)
[2024-01-01] MEDS: Ondansetron ODT 4 MG TAB.RAPDIS TRANSLINGU (23:35)
[2024-01-01] MEDS: Acetaminophen 325 MG TABLET 650 MG PO (23:35)
[2024-01-02 01:28] VITALS: BP 146/82; PULSE 90; RESP 15; TEMP 37; O2SAT 96
[2024-01-02 05:13] LABS: Estimated Average Glucose 131 mg/dL; Hemoglobin A1c % 6.2 % (<6.0)
== END 2024-01-02 01:29 | disposition home or self-care (01) ==
PROVIDERS: Physician Assistant Medical; Emergency Provider Emergency Medicine
DX: J18.9 Pneumonia, unspecified organism (principal); R73.9 Hyperglycemia, unspecified; R06.02 Shortness of breath; Z79.899 Other long term (current) drug therapy; Z03.818 Encounter for observation for suspected exposure to other biological agents ruled out
CPT/HCPCS: 0241U; 36415; 71045; 80053; 82947; 83036; 83735; 83880; 84484; 85025; 93005; 99284; 99285

== ENCOUNTER 2024-01-08 13:57 | Inpatient (IN) | payer OTHER, SELFPAY ==
[2024-01-08] VITALS (8 sets, daily range): BP systolic 122–149; BP diastolic 64–83; PULSE 86–105; RESP 18–20; TEMP 36.7–37.4; O2SAT 95–100; BMI 51.4
--- NOTE | ~2024-01-08 | XR_ITS ---
EXAMINATION: XR CHEST CLINICAL INFORMATION: Lesser breast prior pneumonia COMPARISON: Chest radiograph from 01/01/2024 TECHNIQUE: 2 views of the chest were obtained. FINDINGS: Bilateral low lung volumes. Redemonstration of bronchial thickening with interstitial prominence. No pneumothorax. Trachea is midline. Cardiac mediastinal silhouette is not enlarged. No large pleural effusion. Osseous structures are intact. Soft tissues are unremarkable. XR/XR chest 2V IMPRESSION: 1. Bilateral low lung volumes. 2. Redemonstration of bronchial thickening with interstitial prominence. Electronically signed by: Justine Kumar MD 01/08/2024 02:50 PM EDT
--- NOTE | 2024-01-08 14:02 | ED.GENADULT ---
HPI - General Adult General Chief complaint: Nausea/Vomiting/Diarrhea Stated complaint: HEADACHE NAUSEA Time Seen by Provider: 01/08/24 17:37 Source: patient Mode of arrival: ambulatory Limitations: no limitations History of Present Illness ED Provider: Catina HAMLIN HPI narrative: This is a 43-year-old female history of GERD, asthma/COPD overlap syndrome on 4-5 L nasal cannula, diabetes, major depression, dyspnea, daily tobacco smoker presenting to the emergency department fatigue, malaise, myalgias, chest pressure (substernal intermittent pressure, nonradiating), SOB ( worse w/ exertion) , intermittent, cough, head pressure ( L sided, feels tightness/ pressure) ongoing for the past few weeks, she reports she was recently diagnosed with pneumonia took antibiotics ( azithro& augmentin started on 01/01/24) however still not feeling great, also reports atbx make her nauseaous. She feels very tired. Eating and drinking still. No sick contacts. At this time she is not having chest pain however she states episodes come and go. She denies head trauma, visual disturbances, dizziness, weakness, vomiting, abdominal pain. Related Data Home Medications ?Medication ?Instructions ?Recorded ?Confirmed albuterol sulfate 2.5 mg/3 mL 2.5 mg inhalation Q6H PRN wheezing 11/16/22 09/13/23 (0.083 %) solution for nebulization albuterol sulfate 90 mcg/actuation 2 puff inhalation Q6H 11/16/22 09/13/23 aerosol inhaler (Ventolin HFA) cyanocobalamin (vitamin B-12) 1,000 mcg sublingual DAILY 11/16/22 09/13/23 1,000 mcg sublingual tablet dicyclomine 10 mg capsule 20 mg PO Q8H PRN Abdominal Pain 11/16/22 09/13/23 gabapentin 100 mg capsule 100 mg PO BID PRN Pain (Scale 11/16/22 09/13/23 Score 4-6) gabapentin 400 mg capsule 800 mg PO BEDTIME 11/16/22 09/13/23 mirtazapine 15 mg tablet 22.5 mg PO BEDTIME 11/16/22 09/13/23 montelukast 10 mg tablet 10 mg PO BEDTIME 11/16/22 09/13/23 pantoprazole 40 mg tablet,delayed 40 mg PO BID@0630,1630 11/16/22 09/13/23 release polyethylene glycol 3350 17 gram 17 g PO DAILY PRN Constipation 11/16/22 09/13/23 oral powder packet prazosin 5 mg capsule (Minipress) 5 mg PO BEDTIME 11/16/22 09/13/23 sumatriptan succinate 25 mg tablet 25 mg PO DAILY PRN Migraine 11/16/22 09/13/23 Headache triamcinolone acetonide 55 mcg 1 spray intranasal DAILY 03/01/23 09/13/23 nasal spray aerosol duloxetine 20 mg capsule,delayed 20 mg PO BID 04/23/23 09/13/23 release metformin 750 mg tablet,extended 750 mg PO BID 06/10/23 09/13/23 release 24 hr Previous Rx's ?Medication ?Instructions ?Recorded blood sugar diagnostic (FreeStyle #100 ea 12/17/22 Lite Strips) blood-glucose meter (FreeStyle #1 ea 12/17/22 Lite Meter kit) lancets 28 gauge (FreeStyle #100 ea 12/17/22 Lancets) fluticasone fur. 100 mcg-umeclid 1 inh inhalation DAILY #60 ea 08/16/23 62.5 mcg-vilant 25 mcg inhalat.powder (Trelegy Ellipta) azithromycin 250 mg tablet See Rx Instructions PO .COMPLEX #6 11/15/23 tabs prednisone 20 mg tablet 40 mg (2 x 20 mg) PO DAILY #8 tabs 12/27/23 amoxicillin 875 mg-potassium 1 tab PO BID #13 tabs 01/01/24 clavulanate 125 mg tablet azithromycin 250 mg tablet 250 mg PO DAILY 4 days #4 tabs 01/01/24 Allergies Allergy/AdvReac Type Severity Reaction Status Date / Time promethazine [From PHENERGAN] Allergy Unknown ITCHING Verified 01/08/24 14:12 egg Allergy Hives Verified 01/08/24 14:12 codeine [CODEINE] AdvReac Unknown STOMACH Verified 01/08/24 14:12 UPSET morphine [MORPHINE] AdvReac Unknown MORE PAIN Verified 01/08/24 14:12 Review of Systems Review of Systems: Yes all other systems are reviewed and are negative PMFSH Past Medical History Attestation statement: The following information was validated with the patient. Source: old records reviewed and nursing notes reviewed Medical History Acute and chronic respiratory failure with hypoxia Acute exacerbation of chronic obstructive airways disease Abdominal pain Asthma with exacerbation Lower extremity edema Pneumonia Sepsis Acute exacerbation of COPD with asthma Acute respiratory failure with hypoxia Asthmaticus, status Chronic lung disease ILD (interstitial lung disease) Panic attack as reaction to stress Recurrent major depression Generalized anxiety disorder Morbid obesity Sinus infection Disc herniation H. pylori infection Depression Migraine Asthma Surgical History History of Family History Family History Mother Diabetes High cholesterol Social History Social History Household Members: Spouse Housing: Apartment Housing Other:: 2nd fl Do you presently have visiting nurse or other home services: Yes Alcohol intake: never Comment: Pt refusing bed/chair alarm- steady on feet, 1:1 Sitter Patient Tobacco Use Status: Former Tobacco user Tobacco use type: Cigarette Cigarette Packs Per Day: 4 Smoked in Last 30 Days: No e-Cigarette/Vaping Use: Never Used Second Hand Smoke Exposure: Yes Use of substances other than those prescribed or required for medical reasons: No Advance Directives: No Advance Directives Information Provided: Yes Advance Directives Date on File: 05/12/22 service: No Current occupational status: unemployed Physical Exam ED Vital Signs: Vital Signs - 24 hr 01/08/24 14:11 01/08/24 16:55 01/08/24 17:56 Temperature 98.1 F 98.7 F Pulse Rate 97 86 90 Respiratory Rate 20 20 18 Blood Pressure 136/69 139/79 125/70 Pulse Oximetry 99 99 99 Oxygen Delivery Method Nasal Cannula Nasal Cannula Nasal Cannula Oxygen Flow Rate 3 2 01/08/24 18:13 Temperature Pulse Rate 91 Respiratory Rate 18 Blood Pressure Pulse Oximetry Oxygen Delivery Method Oxygen Flow Rate BMI result Body Mass Index 51.4 Appearance: Alert.? Oriented X3.? No acute distress.? Head: Normocephalic, atraumatic, no step-offs or deformities Eyes: Pupils equal, round and reactive to light.? ENT: Pharynx normal.? Neck: Normal inspection.? Neck supple.? CVS: Normal heart rate and rhythm.? Pulses normal.? Respiratory: No respiratory distress.? Breath sounds normal.? Abdomen: Soft and nontender.? Skin: Skin warm and dry.? Normal skin color.? Normal skin turgor.? Extremities: No lower extremity edema.? No calf ttp. 5/5 strength to bilateral upper and lower extremities Back: No midline tenderness, no C-spine tenderness, full range of motion, no CVA tenderness bilaterally Neuro: Oriented X 3.? No motor deficit.? No sensory deficit. CN 2-12 intact . Normal gakurt-wd-kuzx, dfou-dc-vhjj steady tandem gait normal coordination. NIH stroke scale 0 Course Course Course Narrative: This is an RME performed by Ash Pineda CNP: Additional HPI, ROS, PE not included below will be deferred to primary provider. Patient is a 43 year old female with past medical history of asthma-COPD, diabetes, GERD who presents to the emergency department for evaluation. Admits to being on antibiotics for treatment of pneumonia, has been experiencing nausea with this. She is O2 dependent at baseline 4 L via nasal cannula. Seen in this emergency department 01/01/2024 diagnosed with atypical pneumonia, prescribed azithromycin and Augmentin. Complaining of chest tightness with onset yesterday, worsening dyspnea exertion, complaining of a left-sided headache with onset yesterday. Has associated nausea, no vomiting. Plan: Serum labs, EKG, XR Reevaluation(s) Reevaluation #1: CBC with slight leukocytosis, no left shift. Baseline normocytic anemia noted. Chemistry no acute findings needing intervention. Troponin negative, nonischemic EKG. BNP within normal limits. Coags unremarkable. Chest x-ray bilateral low lung volumes, re demonstration of bronchial thickening with interstitial prominence. Second trop pending. Time: 17:57 Reevaluation #2: Second trop again negative. Plan- hospital admission spoke to FAISAL Tong Medications Administered Discontinued Medications Generic Name Dose Route Start Last Admin Trade Name Freq PRN Reason Stop Dose Admin Albuterol Sulfate 5 mg/ 7.5 mg 01/08/24 18:01 01/08/24 18:07 Albuterol Sulfate 2.5 mg INHALE 01/08/24 18:02 7.5 mg ONCE ONE Administration Medical Decision Making Medical Decision Making [facility] Narrative: [id number] 43-year-old female presents with viral symptoms times a week, also complaining of chest pressure and left-sided head pressure. Recent diagnosis of pneumonia and was on antibiotics. Physical examination with diffuse expiratory wheezing bilaterally. Neurological assessment nonfocal, cerebellar intact. NIH stroke scale 0 History and physical exam concerning for bronchitis versus sinusitis or both. Unlikely chf, pneumonia, PE, ACS, intracranial hemorrhage, stroke, posterior stroke, acute respiratory distress. Will rule out metabolic derangements Plan labs, imaging, viral testing Differential Diagnosis Differential Diagnoses: The differential diagnosis associated with the presentation includes History and physical exam concerning for bronchitis versus sinusitis or both. Unlikely chf, pneumonia, PE, ACS, intracranial hemorrhage, stroke, posterior stroke, acute respiratory distress. Will rule out metabolic derangements Admission/Observation Consideration of admission/observation: Escalation of care including admission/observation considered Possible Consult Healthcare Provider Management of the patient was discussed with: Operations/Dispatch Lab Data MDM Lab Attestation statement: I reviewed the patient's lab results. 01/08/24 14:35 01/08/24 14:35 Labs: Lab Results 01/08/24 01/08/24 Range/Units 14:35 18:17 WBC 11.1 H (4.8-10.8) X10*3/uL RBC 4.00 L (4.20-5.50) X10*6/uL Hgb 10.3 L (12.0-16.0) g/dl Hct 32.4 L (37.0-47.0) % MCV 81.0 (80.0-98.0) fL MCH 25.8 L (27.0-33.0) pg MCHC 31.8 (31.0-35.0) g/dl RDW 16.9 H (11.0-16.0) % Plt Count 346 (160-400) X10*3/uL MPV 9.8 (9.4-12.3) fL Immature Gran % (Auto) 0.5 H (0.0-0.4) % Neut % (Auto) 65.5 (45-73) % Lymph % (Auto) 23.3 (20-40) % [place] % (Auto) 5.9 (2-11) % Eos % (Auto) 4.2 H (0-4) % Baso % (Auto) 0.6 (0-2) % Lymph # (Auto) 2.6 (1.2-4.9) X10*3/uL [place] # (Auto) 0.7 (0.1-1.2) X10*3/uL Eos # (Auto) 0.5 H (0.0-0.4) X10*3/uL Baso # (Auto) 0.1 (0.0-0.2) X10*3/uL Abs Immat Gran (auto) 0.05 H (0.00-0.03) X10*3/uL Absolute Neuts (auto) 7.3 (2.0-8.3) x10*3/uL Absolute Nucleated RBC 0.000 (0.0-0.012) X10*3/uL Nucleated RBC % (auto) 0.0 (0.0-0.2) /100WBC PT 12.7 (11.1-13.3) SEC INR 1.0 (0.9-1.1) Sodium 139 (135-145) mmol/L Potassium 3.6 (3.3-5.1) mmol/L Chloride 104 (96-108) mmol/L Carbon Dioxide 27 (22-29) mmol/L Anion Gap 12 (12-20) BUN 12 (9-16) mg/dL Creatinine 0.78 (0.5-1.4) mg/dL Estim Creat Clear Calc 113.3 Estimated GFR > 60 Random Glucose 193 H (60-115) mg/dL Calcium 8.9 (8.4-10.2) mg/dL Total Bilirubin 0.2 (0.0-1.0) mg/dL AST 14 (5-31) U/L ALT 21 (0-31) U/L Alkaline Phosphatase 126 H (39-117) U/L Troponin I High Sens 2.7 2.9 (<3.5-17.0) ng/L B-Natriuretic Peptide 19 (<100) pg/mL Total Protein 6.3 L (6.5-8.0) g/dL Albumin 3.5 (3.5-5.0) g/dL Influenza Type A (PCR) NEGATIVE (Negative) Influenza Type B (PCR) NEGATIVE (Negative) RSV RNA Qual (PCR) NEGATIVE (Negative) SARS-CoV-2 RNA (RT-PCR) NEGATIVE (Negative) Independent Interpretation I performed an independent interpretation of an: EKG (Vent. Rate : 083 BPM Atrial Rate : 083 BPM P-R Int : 136 ms QRS Dur : 086 ms QT Int : 378 ms P-R-T Axes : 024 016 006 degrees QTc Int : 444 ms Normal sinus rhythm Normal ECG When compared with ECG of 01-JAN-2024 18:34, No significant change was found) and Plain X-Ray (XR/XR chest 2V IMPRESSION: 1. Bilateral low lung volumes. 2. Redemonstration of bronchial thickening with interstitial prominence.) Radiology Impression Discussion of test interpretation with radiology: I have reviewed the radiologist's reading. External Record Review External record reviewed: Inpatient record, Office record, Outpatient record, Prior outpatient labs, Prior outpatient radiology, Primary care record and Outside ED record Chronic Conditions Patient?s care impacted by: Diabetes and Other (GERD, COPD, diabetes) Social Determinants Patient?s care significantly limited by Social Determinants of Health including: Other Social Determinant of Health Critical Care Time Critical Care Time Critical Care Time: Yes Total Critical Care Time: 35 Attestation: I attest to this time spent taking care of the patient, obtaining history, physical, reviewing labs, imaging, speaking to my attending, speaking to specialist. Discharge Plan Discharge Clinical Impression: Bronchitis, COPD (chronic obstructive pulmonary disease) Patient Disposition: Admitted As Inpatient Print Language: Algerian
--- NOTE | 2024-01-08 14:16 | ECG_ITS ---
Test Reason : CHEST PRESSURE Blood Pressure : / mmHG Vent. Rate : 083 BPM Atrial Rate : 083 BPM P-R Int : 136 ms QRS Dur : 086 ms QT Int : 378 ms P-R-T Axes : 024 016 006 degrees QTc Int : 444 ms Normal sinus rhythm Normal ECG When compared with ECG of 01-JAN-2024 18:34, No significant change was found Referred By: Bryanna Pineda Electronically Signed By:DUSTY DILLARD
--- NOTE | 2024-01-08 14:28 | MHC.EDTECH ---
This pct was attempting an EKG but the patient refused stating she doent have chest pain and doesnt want an EKG. PROVIDER AWARE
[2024-01-08 14:39] LABS: MANUAL DIFF FLAG NO
[2024-01-08 14:41] LABS: Basophils Absolute Auto 0.1 X10*3/uL (0.0-0.2); Basophils Percent Auto 0.6 % (0-2); Eosinophils Absolute Auto 0.5 X10*3/uL (0.0-0.4); Eosinophils Percent Auto 4.2 % (0-4); Hematocrit 32.4 % (37.0-47.0); Hemoglobin 10.3 g/dl (12.0-16.0); Imm Gran Abs Auto 0.05 X10*3/uL (0.00-0.03); Imm Gran Pct Auto 0.5 % (0.0-0.4); Lymphocytes Absolute Auto 2.6 X10*3/uL (1.2-4.9); Lymphocytes Percent Auto 23.3 % (20-40); Mean Corpuscular HGB Conc 31.8 g/dl (31.0-35.0); Mean Corpuscular Hemoglobin 25.8 pg (27.0-33.0); Mean Platelet Volume 9.8 fL (9.4-12.3); Monocytes Absolute Auto 0.7 X10*3/uL (0.1-1.2); Monocytes Percent Auto 5.9 % (2-11); Neutrophils Absolute Auto 7.3 x10*3/uL (2.0-8.3); Neutrophils Percent Auto 65.5 % (45-73); Platelet Count 346 X10*3/uL (160-400); Red Cell Distribution Width 16.9 % (11.0-16.0); White Blood Count 11.1 X10*3/uL (4.8-10.8)
[2024-01-08 14:45] LABS: Prothrombin Time 12.7 SEC (11.1-13.3)
[2024-01-08 14:56] LABS: Alanine Aminotransferase 21 U/L (0-31); Albumin Level 3.5 g/dL (3.5-5.0); Alkaline Phosphatase 126 U/L (39-117); Anion Gap 12 (12-20); Aspartate Amino Transferase 14 U/L (5-31); Bilirubin Total 0.2 mg/dL (0.0-1.0); Blood Urea Nitrogen 12 mg/dL (9-16); Calcium 8.9 mg/dL (8.4-10.2); Carbon Dioxide 27 mmol/L (22-29); Chloride 104 mmol/L (96-108); Creatinine Clr Calc Pharmacy 113.3; Estimated Glomerular Filt Rate > 60; Glucose Random 193 mg/dL (60-115); Potassium 3.6 mmol/L (3.3-5.1); Sodium 139 mmol/L (135-145); Total Protein 6.3 g/dL (6.5-8.0)
[2024-01-08 15:01] LABS: B Type Natriuretic Peptide 19 pg/mL (<100)
[2024-01-08 15:02] LABS: Troponin-I High Sensitivity 2.7 ng/L (<3.5-17.0)
--- NOTE | 2024-01-08 17:57 | PC.NURSE ---
Unlabored at rest i bed. staets she's normally on 5L NC but at 2 is satting in high 90's. Pt denies CP but states she has pressure at times, worse with ambulation Will attempt ambulation trial.
[2024-01-08] MEDS: Albuterol Sulfate 5 MG, Albuterol Sulfate (0.083%) 2.5 MG 7.5 MG INHALE (18:07)
[2024-01-08 18:46] LABS: Troponin-I High Sensitivity 2.9 ng/L (<3.5-17.0)
[2024-01-08 19:02] LABS: Influenza A PCR NEGATIVE (Negative); Influenza B PCR NEGATIVE (Negative); Resp Syncy Virus RNA Qual PCR NEGATIVE (Negative); SARS COV2 PCR INHOUSE NEGATIVE (Negative)
[2024-01-08] MEDS: Magnesium Sulfate/H2O 2 GM/50 ML PIGGYBACK IV (19:15)
[2024-01-08] MEDS: methylPREDNISolone Sod Succ 125 MG/2 ML VIAL IVPUSH (19:18)
[2024-01-08] MEDS: ondansetron HCL 4 MG/2 ML VIAL IVPUSH (19:20)
--- NOTE | 2024-01-08 19:23 | PC.NURSE ---
184 received report from Sravani REHMAN, assume care of pt at this time
[2024-01-08 19:32] LABS: Lactic Acid 1.2 mmol/L (0.5-2.0)
--- NOTE | 2024-01-08 19:35 | PM.IMHP ---
History of Present Illness Date of Service: 01/08/24 Attending physician on admission: Marquise Charles Chief Complaint: headache,congestion, wilcox 43-year-old female with history of mood disorder, GERD, asthma/COPD overlap with chronic hypoxemic respiratory failure on 4-5 L supplemental O2 at baseline, [id number] type 2 diabetes, diabetic polyneuropathy, nocturnal hypoxemia presented to the ED earlier today for evaluation of chest tightness, nasal congestion, headache, subjective fevers, wheezing, and dyspnea on exertion. She was recently seen in the ED on 12/26 and diagnosed with COPD exacerbation started on prednisone. However she re-presented to the ED on 12/31 due to hyperglycemia related to steroid use and was then diagnosed with community-acquired pneumonia. She was discharged on Augmentin and azithromycin which she reports completing this morning. She was not discharged on any further prednisone. Despite treatment, reports she has not felt better and felt worse this morning. She states since starting the antibiotics, she has also been experiencing nausea, vomiting, and has had 2 episodes of diarrhea today. Since arrival, vital signs are stable. No fevers or acute hypoxia. She has a mild leukocytosis of 11.1. Renal function and electrolyte levels normal. Glucose 193. Lactic acid 1.2. Troponins within normal limits. BNP 19. Negative for COVID-19, RSV, influenza. Chest x-ray shows bronchial wall thickening, no focal consolidation. In the ED, has been given 125 mg IV methylprednisolone, azithromycin, and 7.5 mg albuterol. She will be admitted for further management of COPD exacerbation likely in setting of upper respiratory infection. Review of Systems Review of Systems: Yes all other systems are reviewed and are negative [facility] Medical History Acute and chronic respiratory failure with hypoxia Acute exacerbation of chronic obstructive airways disease Abdominal pain Asthma with exacerbation Lower extremity edema Pneumonia Sepsis Acute exacerbation of COPD with asthma Acute respiratory failure with hypoxia Asthmaticus, status Chronic lung disease ILD (interstitial lung disease) Panic attack as reaction to stress Recurrent major depression Generalized anxiety disorder Morbid obesity Sinus infection Disc herniation H. pylori infection Depression Migraine Asthma Family History Mother Diabetes High cholesterol Surgical History History of Social History Household Members: Spouse Housing: Apartment Housing Other:: 2nd fl Do you presently have visiting nurse or other home services: Yes Alcohol intake: never Comment: Pt refusing bed/chair alarm- steady on feet, 1:1 Sitter Patient Tobacco Use Status: Former Tobacco user Tobacco use type: Cigarette Cigarette Packs Per Day: 4 Smoked in Last 30 Days: No e-Cigarette/Vaping Use: Never Used Second Hand Smoke Exposure: Yes Use of substances other than those prescribed or required for medical reasons: No Advance Directives: No Advance Directives Information Provided: Yes Advance Directives Date on File: 05/12/22 service: No Current occupational status: unemployed Meds Allergies Allergy/AdvReac Type Severity Reaction Status Date / Time promethazine [From PHENERGAN] Allergy Unknown ITCHING Verified 01/08/24 14:12 egg Allergy Hives Verified 01/08/24 14:12 codeine [CODEINE] AdvReac Unknown STOMACH Verified 01/08/24 14:12 UPSET morphine [MORPHINE] AdvReac Unknown MORE PAIN Verified 01/08/24 14:12 Active Medications: Current Medications Acetaminophen (Acetaminophen 325 Mg Tablet) 650 mg PO Q6H PRN PRN Reason: Pain, Mild (Pain Scale 1-3), fever or headache Calcium Carbonate (Calcium Carbonate 750 Mg Tab.Chew) 750 mg PO Q4H PRN PRN Reason: Heartburn Enoxaparin Sodium (Enoxaparin Sodium 40 Mg/0.4 Ml Syringe) 40 mg SUBCUT Q24H KRYSTLE Glucose (Glucose Gel 15 Gm Gel..Gram.) 15 gm PO Q15M PRN; Protocol PRN Reason: per Hypoglycemia Standing Ord. Magnesium Sulfate (Magnesium Sulfate/H2o) 2 gm in 50 mls @ 25 mls/hr IV ONCE ONE Stop: 01/08/24 20:13 Last Admin: 01/08/24 19:15 Dose: 100 mls/hr Magnesium Hydroxide (Milk Of Magnesia 30 Ml Oral.Susp) 30 ml PO DAILY PRN PRN Reason: Constipation Melatonin (Melatonin 3 Mg Tablet) 6 mg PO BEDTIME PRN PRN Reason: Insomnia Sodium Chloride (0.9 % Sodium Chloride Flush 3 Ml Syringe) 3 ml IVFLUSH QSHIFT [facility] Home Medications ?Medication ?Instructions ?Recorded ?Confirmed ?Last Taken ?Type albuterol sulfate 2.5 mg/3 mL 2.5 mg inhalation Q6H PRN wheezing 11/16/22 09/13/23 06/09/23 History (0.083 %) solution for nebulization albuterol sulfate 90 mcg/actuation 2 puff inhalation Q6H 11/16/22 09/13/23 06/09/23 History aerosol inhaler (Ventolin HFA) cyanocobalamin (vitamin B-12) 1,000 mcg sublingual DAILY 11/16/22 09/13/23 06/09/23 History 1,000 mcg sublingual tablet dicyclomine 10 mg capsule 20 mg PO Q8H PRN Abdominal Pain 11/16/22 09/13/23 06/09/23 History gabapentin 100 mg capsule 100 mg PO BID PRN Pain (Scale 11/16/22 09/13/23 06/09/23 History Score 4-6) gabapentin 400 mg capsule 800 mg PO BEDTIME 11/16/22 09/13/23 06/09/23 History mirtazapine 15 mg tablet 22.5 mg PO BEDTIME 11/16/22 09/13/23 06/09/23 History montelukast 10 mg tablet 10 mg PO BEDTIME 11/16/22 09/13/23 06/09/23 History pantoprazole 40 mg tablet,delayed 40 mg PO BID@0630,1630 11/16/22 09/13/23 06/09/23 History release polyethylene glycol 3350 17 gram 17 g PO DAILY PRN Constipation 11/16/22 09/13/23 06/09/23 History oral powder packet prazosin 5 mg capsule (Minipress) 5 mg PO BEDTIME 11/16/22 09/13/23 06/09/23 History sumatriptan succinate 25 mg tablet 25 mg PO DAILY PRN Migraine 11/16/22 09/13/23 06/09/23 History Headache triamcinolone acetonide 55 mcg 1 spray intranasal DAILY 03/01/23 09/13/23 06/09/23 History nasal spray aerosol duloxetine 20 mg capsule,delayed 20 mg PO BID 04/23/23 09/13/23 06/09/23 History release metformin 750 mg tablet,extended 750 mg PO BID 06/10/23 09/13/23 06/09/23 History release 24 hr Physical Exam Vital Signs and Narrative: Vital Signs: Last Vital Signs Temp 98.9 F 01/08/24 19:22 Pulse 98 01/08/24 19:22 Resp 18 01/08/24 19:22 BP 122/64 01/08/24 19:22 Pulse Ox 100 01/08/24 19:22 O2 Del Method Nasal Cannula 01/08/24 19:22 O2 Flow Rate 4 01/08/24 19:22 Oxygen Flow Rate 3 01/08/24 14:11 BMI result Body Mass Index 51.4 Constitutional - Awake and Alert, No apparent distress Eyes - PERRLA, EOMI Cardiovascular - S1S2, RRR, No edema Respiratory - Normal lung expansion, Normal respiratory effort, No respiratory distress on 2 L supplemental O2. Bilateral expiratory wheezing Gastrointestinal - NT / ND; +BS; No rebound or guarding Extremities - no calf tenderness bilaterally, no swelling Skin - Warm/Dry Neurological - Alert & oriented x3, CN II-XII in tact, 5/5 strength BUE and BLE Psychological - Appropriate affect Results Labs 01/08/24 14:35 01/08/24 14:35 Labs: Laboratory Results - last 24 hr 01/08/24 01/08/24 01/08/24 14:35 18:17 19:06 MCV 81.0 MCH 25.8 L MCHC 31.8 RDW 16.9 H Plt Count 346 MPV 9.8 Immature Gran % (Auto) 0.5 H Neut % (Auto) 65.5 Lymph % (Auto) 23.3 [place] % (Auto) 5.9 Eos % (Auto) 4.2 H Baso % (Auto) 0.6 Lymph # (Auto) 2.6 [place] # (Auto) 0.7 Eos # (Auto) 0.5 H Baso # (Auto) 0.1 Abs Immat Gran (auto) 0.05 H Absolute Neuts (auto) 7.3 Absolute Nucleated RBC 0.000 Nucleated RBC % (auto) 0.0 PT 12.7 INR 1.0 Anion Gap 12 Estim Creat Clear Calc 113.3 Estimated GFR > 60 Random Glucose 193 H Lactic Acid 1.2 Calcium 8.9 Total Bilirubin 0.2 AST 14 ALT 21 Alkaline Phosphatase 126 H Troponin I High Sens 2.7 2.9 B-Natriuretic Peptide 19 Total Protein 6.3 L Albumin 3.5 Influenza Type A (PCR) NEGATIVE Influenza Type B (PCR) NEGATIVE RSV RNA Qual (PCR) NEGATIVE SARS-CoV-2 RNA (RT-PCR) NEGATIVE Imaging Radiologist's Impressions: Impressions Chest X-Ray 01/08/24 14:35 IMPRESSION: 1. Bilateral low lung volumes. 2. Redemonstration of bronchial thickening with interstitial prominence. Electronically signed by: Justine Kumar MD 01/08/2024 02:50 PM EDT RP Assessment and Plan (1) COPD (chronic obstructive pulmonary disease): Status: Acute Plan 43-year-old female with history of mood disorder, GERD, asthma/COPD overlap with chronic hypoxemic respiratory failure on 4-5 L supplemental O2 at baseline, arm-mpczmue-[id number] type 2 diabetes, diabetic polyneuropathy, nocturnal hypoxemia admitted for further management of COPD exacerbation likely secondary to viral URI # acute COPD exacerbation likely secondary to viral URI with chronic hypoxemic respiratory failure -CXR shows bronchial wall thickening. Recently treated with Augmentin and azithromycin for community-acquired pneumonia completed course this morning -negative for COVID-19, RSV, influenza. Check RPP -IV methylprednisolone 40 mg b.i.d. -DuoNebs q.4h while awake, p.r.n. -will continue IV azithromycin for pleiotropic effect -continue baseline O2 # meb-beporyv-samqrgvea type 2 diabetes -POC glucose, diabetic diet -Humalog on sliding scale -hold metformin. Monitor for steroid induced hyperglycemia # diabetic polyneuropathy -continue gabapentin, duloxetine # migraines -sumatriptan p.r.n. # mood disorder -continue home meds DVT prophylaxis-Lovenox Full code Patient requires inpatient stay at least 2 midnights for management of COPD exacerbation requiring IV steroids, close monitoring of respiratory status and scheduled nebulizer treatments Quality Stroke Does the patient have a stroke diagnosis?: No VTE Prior VTE?: No VTE Risk Level:: Medical - moderate - high VTE Device Contraindication: Treatment Not Indicated VTE Drug Contraindication: N/A - Med Ordered
[2024-01-08] MEDS: Albuterol/Iprat 2.5/0.5MG 3 ML AMPUL.NEB INHALE (19:46)
[2024-01-08] MEDS: cefTRIAXone sodium 1 GM in 0.9 % Sodium Chloride 50 ML IV (19:57)
[2024-01-08] MEDS: Azithromycin 500 MG in 0.9 % Sodium Chloride 250 ML 125 MG IV (20:02)
--- NOTE | 2024-01-08 21:36 | ECG_ITS ---
Test Reason : CHEST PAIN Blood Pressure : / mmHG Vent. Rate : 107 BPM Atrial Rate : 107 BPM P-R Int : 132 ms QRS Dur : 088 ms QT Int : 360 ms P-R-T Axes : 036 027 012 degrees QTc Int : 480 ms Sinus tachycardia Nonspecific ST abnormality Abnormal ECG When compared with ECG of 08-JAN-2024 16:55, Nonspecific ST abnormality is now Present Heart rate has increased Referred By: Marquise Charles Electronically Signed By:DUSTY DILLARD
[2024-01-08 21:39] LABS: Glucose, Whole Blood 180 mg/dL (60-115)
[2024-01-08] MEDS: Insulin Lispro 100 UNIT/ML 3 ML VIAL SUBCUT (21:45)
[2024-01-08] MEDS: Enoxaparin Sodium 40 MG/0.4 ML SYRINGE SUBCUT (21:46)
[2024-01-08] MEDS: Acetaminophen 325 MG TABLET 650 MG PO (21:49)
[2024-01-09 01:52] VITALS: BP 163/73; PULSE 108; RESP 20; TEMP 36.6; O2SAT 99
[2024-01-09] MEDS: Gabapentin 400 MG CAPSULE PO (02:24)
[2024-01-09] MEDS: Montelukast Sodium 10 MG TABLET PO (02:24)
[2024-01-09] MEDS: Mirtazapine 7.5 MG TABLET PO (02:24)
[2024-01-09 05:15] VITALS: PULSE 84
[2024-01-09 07:14] VITALS: BP 143/68; PULSE 100; RESP 18; TEMP 36.3; O2SAT 95
[2024-01-09 07:24] LABS: Glucose, Whole Blood 276 mg/dL (60-115)
[2024-01-09 08:02] VITALS: PULSE 100; RESP 18; O2SAT 97
[2024-01-09] MEDS: Insulin Lispro 100 UNIT/ML 3 ML VIAL SUBCUT (08:02)
[2024-01-09] MEDS: 0.9 % Sodium Chloride Flush 3 ML SYRINGE IVFLUSH (08:02)
[2024-01-09] MEDS: methylPREDNISolone Sod Succ 40 MG/ML VIAL IVPUSH (08:02)
[2024-01-09] MEDS: Albuterol/Iprat 2.5/0.5MG 3 ML AMPUL.NEB INHALE (08:02)
--- NOTE | 2024-01-09 09:56 | P.DS_ITS ---
DS: Providers Provider Date of Service: 01/09/24 Date of admission: 01/08/24 19:30 Date of discharge: 01/09/24 Primary care physician: Unknown Physician DS: Diagnosis Discharge Diagnosis (1) COPD (chronic obstructive pulmonary disease): Status: Acute DS: Summary Hospital Course Hospital Course: from initial hpi: 43-year-old female with history of mood disorder, GERD, asthma/COPD overlap with chronic hypoxemic respiratory failure on 4-5 L supplemental O2 at baseline, [id number] type 2 diabetes, diabetic polyneuropathy, nocturnal hypoxemia presented to the ED earlier today for evaluation of chest tightness, nasal congestion, headache, subjective fevers, wheezing, and dyspnea on exertion. She was recently seen in the ED on 12/26 and diagnosed with COPD exacerbation started on prednisone. However she re-presented to the ED on 12/31 due to hyperglycemia related to steroid use and was then diagnosed with community-acquired pneumonia. She was discharged on Augmentin and azithromycin which she reports completing this morning. She was not discharged on any further prednisone. Despite treatment, reports she has not felt better and felt worse this morning. She states since starting the antibiotics, she has also been experiencing nausea, vomiting, and has had 2 episodes of diarrhea today. Since arrival, vital signs are stable. No fevers or acute hypoxia. She has a mild leukocytosis of 11.1. Renal function and electrolyte levels normal. Glucose 193. Lactic acid 1.2. Troponins within normal limits. BNP 19. Negative for COVID-19, RSV, influenza. Chest x-ray shows bronchial wall thickening, no focal consolidation. In the ED, has been given 125 mg IV methylprednisolone, azithromycin, and 7.5 mg albuterol. She will be admitted for further management of COPD exacerbation likely in setting of upper respir atory infection. hospital course: Patient was admitted for COPD/severe persistent asthma with acute decompensation complicated by chronic hypoxic respiratory failure. Patient was treated with Augmentin and azithromycin and steroids and DuoNebs. On exam patient is not wheezing not using accessory muscles, appears comfortable, O2 requirements are lower than baseline. We will discharge home and continue with inhalers, will avoid steroids as patient prone to hypoglycemia and does not appear to be actively wheezing. She had follow-up with Pulmonary as outpatient. For diabetes will continue with insulin sliding scale. For diabetic polyneuropathy continued on gabapentin and Cymbalta. For migraines continue sumatriptan. For mood disorder continue with Cymbalta. Patient is feeling better will be discharged home. Time Attestation Discharge Coordination Time (in mins): 37 Quality: Safe Use of Opioids Does Pt have an Active Cancer Diagnosis on the Problem List?: No Quality: Stroke Does the patient have a stroke diagnosis?: No Physical Exam Vital Signs: Vital Signs: Last Vital Signs Temp 97.3 F 01/09/24 07:14 Pulse 100 01/09/24 08:02 Resp 18 01/09/24 08:02 BP 143/68 H 01/09/24 07:14 Pulse Ox 95 01/09/24 07:14 O2 Del Method Nasal Cannula 01/09/24 07:14 O2 Flow Rate 3 01/09/24 07:14 Oxygen Flow Rate 3 01/08/24 14:11 BMI result Body Mass Index 51.4 General: AO X 3, no acute distress Resp: CTA bilateral, no accessory muscles used CVS: S1,S2,RRR GI: soft, non tender, non distended Neuro: motor grossly intact, alert Psych: appropriate affect, appropriate insight DS: Data Data Completed and Pending Completed studies during hospitalization [Text1]: Procedures Assistance with Respiratory Ventilation, Less than 24 Consecutive Hours, Continuous Positive Airway Pressure (04/23/22) Insertion of Endotracheal Airway into Trachea, Via Natural or Artificial Opening (04/23/22) Insertion of Infusion Device into Superior Vena Cava, Percutaneous Approach (04/23/22) Introduction of Baricitinib into Mouth and Pharynx, External Approach, [employer] 6 (04/23/22) Introduction of Vasopressor into Peripheral Vein, Percutaneous Approach (04/23/22) Respiratory Ventilation, Greater than 96 Consecutive Hours (04/23/22) Ultrasonography of Superior Vena Cava, Guidance (04/23/22) Labs on day of discharge: Laboratory Results - last 24 hr 01/08/24 01/08/24 01/08/24 14:35 18:17 19:06 WBC 11.1 H RBC 4.00 L Hgb 10.3 L Hct 32.4 L MCV 81.0 MCH 25.8 L MCHC 31.8 RDW 16.9 H Plt Count 346 MPV 9.8 Immature Gran % (Auto) 0.5 H Neut % (Auto) 65.5 Lymph % (Auto) 23.3 [place] % (Auto) 5.9 Eos % (Auto) 4.2 H Baso % (Auto) 0.6 Lymph # (Auto) 2.6 [place] # (Auto) 0.7 Eos # (Auto) 0.5 H Baso # (Auto) 0.1 Abs Immat Gran (auto) 0.05 H Absolute Neuts (auto) 7.3 Absolute Nucleated RBC 0.000 Nucleated RBC % (auto) 0.0 PT 12.7 INR 1.0 Sodium 139 Potassium 3.6 Chloride 104 Carbon Dioxide 27 Anion Gap 12 BUN 12 Creatinine 0.78 Estim Creat Clear Calc 113.3 Estimated GFR > 60 POC Glucose Random Glucose 193 H Lactic Acid 1.2 Calcium 8.9 Total Bilirubin 0.2 AST 14 ALT 21 Alkaline Phosphatase 126 H Troponin I High Sens 2.7 2.9 B-Natriuretic Peptide 19 Total Protein 6.3 L Albumin 3.5 Influenza Type A (PCR) NEGATIVE Influenza Type B (PCR) NEGATIVE RSV RNA Qual (PCR) NEGATIVE SARS-CoV-2 RNA (RT-PCR) NEGATIVE 01/08/24 01/09/24 21:33 07:13 WBC RBC Hgb Hct MCV MCH MCHC RDW Plt Count MPV Immature Gran % (Auto) Neut % (Auto) Lymph % (Auto) [place] % (Auto) Eos % (Auto) Baso % (Auto) Lymph # (Auto) [place] # (Auto) Eos # (Auto) Baso # (Auto) Abs Immat Gran (auto) Absolute Neuts (auto) Absolute Nucleated RBC Nucleated RBC % (auto) PT INR Sodium Potassium Chloride Carbon Dioxide Anion Gap BUN Creatinine Estim Creat Clear Calc Estimated GFR POC Glucose 180 H 276 H Random Glucose Lactic Acid Calcium Total Bilirubin AST ALT Alkaline Phosphatase Troponin I High Sens B-Natriuretic Peptide Total Protein Albumin Influenza Type A (PCR) Influenza Type B (PCR) RSV RNA Qual (PCR) SARS-CoV-2 RNA (RT-PCR) Discharge Plan Discharge Anticipated Discharge Date/Time: 01/09/24 09:52 Patient Disposition: Home, Self-Care Discharge Diagnosis: asthma Referrals: Physician,Unknown J [Primary Care Provider] - 1 Week Discharge Medications: Continued (DME) FreeStyle Lite Strips Strip Qty: 100 0RF Rx Instructions: Test four times a day or as directed. (DME) blood-glucose meter [FreeStyle Lite Meter] Kit Qty: 1 0RF Rx Instructions: As Directed (DME) lancets [FreeStyle Lancets] 28 gauge misc Qty: 100 0RF Rx Instructions: Test four times a day or as directed. duloxetine 20 mg capsule,delayed release(DR/EC) 20 mg PO BID metformin 750 mg tablet extended release 24 hr 750 mg PO BID amoxicillin-pot clavulanate 875-125 mg tablet 1 tab PO BID Qty: 13 0RF gabapentin 400 mg capsule 800 mg PO BEDTIME benzonatate 100 mg capsule 100 mg PO TID prazosin 2 mg capsule 2 mg PO BEDTIME Trulicity 0.75 mg/0.5 mL pen injector subcut QWEEK albuterol sulfate 2.5 mg /3 mL (0.083 %) solution for nebulization 2.5 mg inhalation Q6H PRN (Reason: wheezing) sumatriptan succinate 25 mg tablet 25 mg PO DAILY PRN (Reason: Migraine Headache) Rx Instructions: MRX1 after 2 hours prazosin [Minipress] 5 mg capsule 5 mg PO BEDTIME Rx Instructions: TAKE WITH 2MG pantoprazole 40 mg tablet,delayed release (DR/EC) 40 mg PO BID@0630,1630 montelukast 10 mg tablet 10 mg PO BEDTIME cyanocobalamin (vitamin B-12) 1,000 mcg tablet, sublingual 1,000 mcg sublingual DAILY mirtazapine 15 mg tablet 22.5 mg PO BEDTIME gabapentin 100 mg capsule 100 mg PO BID PRN (Reason: Pain (Scale Score 4-6)) albuterol sulfate [Ventolin HFA] 90 mcg/actuation HFA aerosol inhaler 2 puff inhalation Q6H dicyclomine 10 mg capsule 20 mg PO Q8H PRN (Reason: Abdominal Pain) polyethylene glycol 3350 17 gram powder in packet 17 g PO DAILY PRN (Reason: Constipation) triamcinolone acetonide 55 mcg aerosol,spray 1 spray intranasal DAILY Trelegy Ellipta 100-62.5-25 mcg blister with device 1 inh inhalation DAILY Qty: 60 6RF Discharge Orders: Discharge Order (Routine); Ordered 01/09/24 Ordered By: Gibson Alexander Diet: Diabetic diet Activity on Discharge: As tolerated Stand Alone Forms: Patient Portal Discharge page Print Language: Telugu Care Plan Goals: recovery Health Concerns: asthma Plan of Treatment: Continue inhalers, follow-up with pulmonology Assessment: See above
[2024-01-09 09:58] LABS: Adenovirus PCR Not Detected (Not Detect.); Bordetella parapertussis PCR Not Detected (Not Detect.); Bordetella pertussis PCR Not Detected (Not Detect.); Chlamydia pneumoniae PCR Not Detected (Not Detect.); Coronavirus 229E PCR Not Detected (Not Detect.); Coronavirus HKU1 PCR Not Detected (Not Detect.); Coronavirus NL63 PCR Not Detected (Not Detect.); Coronavirus OC43 PCR Not Detected (Not Detect.); Human metapneumovirus PCR Not Detected (Not Detect.); Influenza A PCR Not Detected (Not Detect.); Influenza B PCR Not Detected (Not Detect.); Mycoplasma pneumoniae PCR Not Detected (Not Detect.); Parainfluenza 1 PCR Not Detected (Not Detect.); Parainfluenza 2 PCR Not Detected (Not Detect.); Parainfluenza 3 PCR Not Detected (Not Detect.); Parainfluenza 4 PCR Not Detected (Not Detect.); RSV PCR Not Detected (Not Detect.); Rhino/Enterovirus PCR Not Detected (Not Detect.)
[2024-01-09 10:05] LABS: SARS-CoV-2 PCR Not Detected (Not Detect.)
--- NOTE | 2024-01-09 10:58 | MHC.CM.PN ---
Addendum entered by Noemi Zaldivar RN 01/09/24 11:02: Patient is norwegian speaking. 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 Original Note: Patient lives in an apartment alone. Reports she used to have a POND SAWYER, but no longer does. Indp w/ ADL's. Ambulates w/ wheeled walker. 4-5L home O2 @ baseline, supplied by [employer]. Active w/ [facility] for SN. Return referral sent via [facility]. PCP @ [facility] HCP on file and verified. DP: Medically cleared for dc home, w/ resump of services. to transport.
== END 2024-01-09 10:55 | disposition home or self-care (01) | DRG 141 ==
LOC: HO.ED 18:16 → HO.EDOVER 19:40 → HO.S3 01-09 00:25
PROVIDERS: Internal Medicine; Nurse Practitioner Family; Physician Assistant; Admitting Provider Physician Assistant; Emergency Provider Emergency Medicine Emergency Medical Services; PCP Family Medicine; Visit Provider Internal Medicine
DX: J45.51 Severe persistent asthma with (acute) exacerbation (principal); J96.11 Chronic respiratory failure with hypoxia; J44.1 Chronic obstructive pulmonary disease with (acute) exacerbation; E11.42 Type 2 diabetes mellitus with diabetic polyneuropathy; K21.9 Gastro-esophageal reflux disease without esophagitis; G43.909 Migraine, unspecified, not intractable, without status migrainosus; F39 Unspecified mood [affective] disorder; Z20.822 Contact with and (suspected) exposure to COVID-19; Z79.51 Long term (current) use of inhaled steroids; Z87.891 Personal history of nicotine dependence; Z79.84 Long term (current) use of oral hypoglycemic drugs; Z79.85 Long-term (current) use of injectable non-insulin antidiabetic drugs; Z79.899 Other long term (current) drug therapy
CPT/HCPCS: 0241U; 36415; 71046; 80053; 82947; 83605; 83880; 84484; 85025; 85610; 87040; 87633; 93005; 94640; 99221; 99285; J0456; J0696; J1650; J2405; J2919; J3475

== ENCOUNTER → 2024-01-08 19:30 | Outpatient (BNV) | payer OTHER, SELFPAY | PROVIDERS: Admitting Provider Physician Assistant; Emergency Provider Emergency Medicine Emergency Medical Services; Visit Provider Internal Medicine | DX: J44.9 Chronic obstructive pulmonary disease, unspecified (principal); J96.11 Chronic respiratory failure with hypoxia | CPT/HCPCS: 99223; 99239 ==

== ENCOUNTER 2024-01-24 13:01 | Outpatient (AMB) | payer OTHER, SELFPAY ==
[2024-01-24 13:05] VITALS: BP 128/60; PULSE 107; O2SAT 96; BMI 49.8
--- NOTE | 2024-01-24 13:05 | MHC.OFFVIS ---
Vital Signs 01/24/24 13:05 Height 5 ft 1 in Weight 263 lb 8 oz BMI 49.8 BP 128/60 Blood Pressure Location Lt brachial Position Sitting Pulse 107 H Pulse Source Pulse Oximeter Pulse Oximetry (%) 96 Oxygen Delivery Method Nasal Cannula Oxygen Flow Rate 2 Intake Visit Reasons: [place] [place] Supervisor Required: Yes [place] Supervisor Language: Reel And Rewinder Operator Name: Angelique [id number] Allergies promethazine [From PHENERGAN] Allergy (Unknown, Verified 01/24/24 13:13) ITCHING egg Allergy (Verified 01/24/24 13:13) Hives codeine [CODEINE] Adverse Reaction (Unknown, Verified 01/24/24 13:13) STOMACH UPSET morphine [MORPHINE] Adverse Reaction (Unknown, Verified 01/24/24 13:13) MORE PAIN HPI HPI [place] [place] Details: Gail is a pleasant 43-year-old female, former smoker, quit 6+ months ago with approximately 90 pack-year history, with underlying asthma on 2L supplemental oxygen. She was admitted on 04/23/2022 with acute hypoxic respiratory failure secondary to MSSA pneumonia superinfection of prior COVID pneumonia resulting in acute hypoxic respiratory failure requiring intubation and ventilatory support. Hospital course complicated by development of acute cor pulmonale. Since this admission she has been on supplemental oxygen. Today she presents for a hospital follow up. She was seen in the ED on 12/26 treated with prednisone for COPD exacerbation. Returned to the Ed on 12/31 and treated for hyperglycemia secondary to prednisone. She then returned on 01/07 admitted overnight for pneumonia and d/c with Augmentin and Azithromycin. Today she reports feeling worse in regards in [place], cough with brown sputum and chest tightness. She has not had an increase in supplemental oxygen. [facility] Medical History Acute and chronic respiratory failure with hypoxia Acute exacerbation of chronic obstructive airways disease Abdominal pain Asthma with exacerbation Lower extremity edema Pneumonia Sepsis Acute exacerbation of COPD with asthma Acute respiratory failure with hypoxia Asthmaticus, status Chronic lung disease ILD (interstitial lung disease) Panic attack as reaction to stress Recurrent major depression Generalized anxiety disorder Morbid obesity Sinus infection Disc herniation H. pylori infection Depression Migraine Asthma Surgical History History of Family History Mother Diabetes High cholesterol Social History Household Members: None Housing: Apartment Housing Other:: 2nd fl Do you presently have visiting nurse or other home services: Yes (visiting nurse) Alcohol intake: never Comment: Pt refusing bed/chair alarm- steady on feet, 1:1 Sitter Patient Tobacco Use Status: Former Tobacco user Tobacco use type: Cigarette Cigarette Packs Per Day: 4 e-Cigarette/Vaping Use: Former Use Second Hand Smoke Exposure: No Advance Directives Date on File: 05/12/22 service: No Current occupational status: unemployed Review of Systems Const Denies chills, Denies excessive sweating, Denies fever(s) and Denies night sweats Eyes Denies dry eyes, Denies irritation and Denies itchy eyes ENT Reports Normal hearing present, Denies nasal congestion, Denies nasal discharge, Denies post nasal drip and Denies sore throat Card Denies chest pain, Denies chest pain at rest, Denies chest pain with activity, Denies claudication, Denies orthopnea and Denies paroxysmal nocturnal dyspnea Resp Denies chest congestion, Denies excessive phlegm production, Denies pain on inspiration, Denies pain with cough and Denies stridor Musc Denies myalgias Neuro Reports Normal hearing present Endo Denies excessive sweating Mark/Lymph Denies lymphadenopathy Aller/Immun Denies itchy eyes and Denies seasonal rhinorrhea Physical Exam Vital Signs: Last Vital Signs Pulse 107 H 01/24/24 13:05 BP 128/60 01/24/24 13:05 Pulse Ox 96 01/24/24 13:05 Oxygen Delivery Method Nasal Cannula 01/24/24 13:05 Oxygen Flow Rate 2 01/24/24 13:05 BMI result Body Mass Index 49.8 Const General: cooperative, no acute distress, well developed and alert Nutritional Appearance: obese Orientation/consciousness: patient oriented x3 Limitations: no limitations HEENT Head: Yes normal to inspection, Yes normocephalic and Yes atraumatic Ears: hearing grossly normal bilaterally and external ears normal Eyes General: appearance normal, both eyes and all related structures Eyelids: Yes eyelids normal Sclerae: sclerae normal EOM: EOMs intact bilaterally Neck Neck: Yes normal visual inspection and Yes no lymphadenopathy Lymphatic: no lymphadenopathy noted Chest Chest palpation & inspection: normal inspection of the chest Resp Other: faint inspiratory bibasilar crackles Effort & Inspection: normal respiratory effort, able to speak in complete sentences, no audible wheezes, no cough, no stridor, not tachypneic, no tripod positioning and no use of accessory muscles Cardio Jugular venous distension: no JVD Rate: regular rate Rhythm: regular rhythm Skin Other: warm, dry General skin exam: no rashes or lesions noted Neuro General: patient oriented x3 Cranial nerves: Yes Normal hearing present Cognition (Neuro): normal cognition Gait exam (Neuro): Normal gait present Psych Appearance: grossly normal and well kempt Speech and movement: Normal speech and movement present and Clear speech present Affect: normal affect Attitude: cooperative Thought process: Normal thought process present Thought content: Normal thought content present Insight: Good insight present (Psych) Judgement: Good judgement present (Psych) Assessment & Plan Assessment & Plan (1) Asthma-COPD overlap syndrome: Code(s): J44.89 - Other specified chronic obstructive pulmonary disease Category: Medical (2) Nocturnal hypoxemia: Code(s): G47.34 - Idiopathic sleep related nonobstructive alveolar hypoventilation Category: Medical (3) Dyspnea: Code(s): R06.00 - Dyspnea, unspecified Category: Medical Plan Patient presents for hospital follow up for pneumonia and COPD exacerbation. She continues with productive cough and dyspnea. Will treat with levaquin, discussed adverse effects including tendon rupture. Encouraged use of probiotics given recent antibiotic use. If no better, will send for CXR, sputum and consider bronchoscopy. All questions were answered and patient in agreement of plan. Will follow up in 2-4 weeks or sooner if needed. She is aware if symptoms do not improve to seek emergent care. Medications: New levofloxacin 750 mg PO DAILY 7 tabs 0RF Coding Level of Care Code Est Pt Level 4 (82662) Diagnoses Asthma-COPD overlap syndrome J44.89 Nocturnal hypoxemia G47.34 Dyspnea R06.00
== END 2024-01-24 13:41 | disposition home or self-care (01) ==
PROVIDERS: Visit Provider Nurse Practitioner Family
DX: J44.89 Other specified chronic obstructive pulmonary disease (principal); G47.34 Idiopathic sleep related nonobstructive alveolar hypoventilation; R06.00 Dyspnea, unspecified
CPT/HCPCS: 99214

== ENCOUNTER → 2024-01-24 13:01 | Outpatient (BNVA) | payer OTHER, SELFPAY | PROVIDERS: Visit Provider Nurse Practitioner Family | DX: J44.89 Other specified chronic obstructive pulmonary disease (principal); G47.34 Idiopathic sleep related nonobstructive alveolar hypoventilation; R06.00 Dyspnea, unspecified; Z87.891 Personal history of nicotine dependence; Z99.81 Dependence on supplemental oxygen | CPT/HCPCS: 99212 ==

== ENCOUNTER 2024-03-02 10:25 | Outpatient (AMB) | payer OTHER, SELFPAY ==
[2024-03-02 10:59] VITALS: BP 134/68; PULSE 106; O2SAT 97; BMI 52.0
--- NOTE | 2024-03-02 10:59 | MHC.OFFVIS ---
Vital Signs 03/02/24 10:59 Height 5 ft 1 in Weight 275 lb 2 oz BMI 52.0 BP 134/68 Blood Pressure Location Rt brachial Position Sitting Pulse 106 H Pulse Source Pulse Oximeter Pulse Oximetry (%) 97 Oxygen Delivery Method Nasal Cannula Oxygen Flow Rate 2 Intake Visit Reasons: dyspnea Scrap Drop Crane Operator Required: Yes Scrap Drop Crane Operator Language: Manager Data Services: Scrap Drop Crane Operator Present Allergies promethazine [From PHENERGAN] Allergy (Unknown, Verified 03/02/24 11:02) ITCHING egg Allergy (Verified 03/02/24 11:02) Hives codeine [CODEINE] Adverse Reaction (Unknown, Verified 03/02/24 11:02) STOMACH UPSET morphine [MORPHINE] Adverse Reaction (Unknown, Verified 03/02/24 11:02) MORE PAIN HPI HPI dyspnea: Details: Gail is a pleasant 43-year-old female, former smoker, quit 6+ months ago with approximately 90 pack-year history, with underlying asthma on 2L supplemental oxygen and h/o acute hypoxic respiratory failure secondary to MSSA pneumonia superinfection of prior COVID pneumonia resulting in acute hypoxic respiratory failure requiring intubation and ventilatory support. Hospital course complicated by development of acute cor pulmonale in 2021. Today she is accompanied by her mother in law and presents for a routine visit. She continues with dyspnea on exertion despite Trelegy 100 mcg and albuterol MDI. The most concerning to her at this time is symptoms of chronic sinusitis, requesting referral to ENT. [facility] Medical History Acute and chronic respiratory failure with hypoxia Acute exacerbation of chronic obstructive airways disease Abdominal pain Asthma with exacerbation Lower extremity edema Pneumonia Sepsis Acute exacerbation of COPD with asthma Acute respiratory failure with hypoxia Asthmaticus, status Chronic lung disease ILD (interstitial lung disease) Panic attack as reaction to stress Recurrent major depression Generalized anxiety disorder Morbid obesity Sinus infection Disc herniation H. pylori infection Depression Migraine Asthma Surgical History History of Family History Mother Diabetes High cholesterol Social History Household Members: None Housing: Apartment Housing Other:: 2nd fl Do you presently have visiting nurse or other home services: Yes (visiting nurse) Alcohol intake: never Comment: Pt refusing bed/chair alarm- steady on feet, 1:1 Sitter Patient Tobacco Use Status: Former Tobacco user Tobacco use type: Cigarette Cigarette Packs Per Day: 4 e-Cigarette/Vaping Use: Former Use Second Hand Smoke Exposure: No Advance Directives Date on File: 05/12/22 service: No Current occupational status: unemployed Review of Systems Const Denies chills, Denies excessive sweating, Denies fever(s) and Denies night sweats Eyes Denies dry eyes, Denies irritation and Denies itchy eyes ENT Reports Normal hearing present and Reports nasal congestion Card Denies chest pain, Denies chest pain at rest, Denies chest pain with activity, Denies claudication, Reports dyspnea on exertion, Denies orthopnea and Denies paroxysmal nocturnal dyspnea Resp Denies chest congestion, Reports cough, Denies excessive phlegm production, Denies pain on inspiration, Denies pain with cough, Reports dyspnea on exertion and Denies stridor Musc Denies myalgias Neuro Reports Normal hearing present Endo Denies excessive sweating Mark/Lymph Denies lymphadenopathy Aller/Immun Denies itchy eyes and Denies seasonal rhinorrhea Physical Exam Vital Signs: Last Vital Signs Pulse 106 H 03/02/24 10:59 BP 134/68 03/02/24 10:59 Pulse Ox 97 03/02/24 10:59 Oxygen Delivery Method Nasal Cannula 03/02/24 10:59 Oxygen Flow Rate 2 03/02/24 10:59 BMI result Body Mass Index 52.0 Const General: cooperative, no acute distress, well developed and alert Nutritional Appearance: obese Orientation/consciousness: patient oriented x3 Limitations: no limitations HEENT Head: Yes normal to inspection, Yes normocephalic and Yes atraumatic Ears: hearing grossly normal bilaterally and external ears normal Eyes General: appearance normal, both eyes and all related structures Eyelids: Yes eyelids normal Sclerae: sclerae normal EOM: EOMs intact bilaterally Neck Neck: Yes normal visual inspection and Yes no lymphadenopathy Lymphatic: no lymphadenopathy noted Chest Chest palpation & inspection: normal inspection of the chest Resp Effort & Inspection: normal respiratory effort, able to speak in complete sentences, no audible wheezes, no cough, no stridor, not tachypneic, no tripod positioning and no use of accessory muscles Auscultation: diminished lung sounds Cardio Jugular venous distension: no JVD Rate: regular rate Rhythm: regular rhythm Skin Other: warm, dry General skin exam: no rashes or lesions noted Neuro General: patient oriented x3 Cranial nerves: Yes Normal hearing present Cognition (Neuro): normal cognition Gait exam (Neuro): Normal gait present Psych Appearance: grossly normal and well kempt Speech and movement: Normal speech and movement present and Clear speech present Affect: normal affect Attitude: cooperative Thought process: Normal thought process present Thought content: Normal thought content present Insight: Good insight present (Psych) Judgement: Good judgement present (Psych) Assessment & Plan Assessment & Plan (1) Asthma-COPD overlap syndrome: Code(s): J44.89 - Other specified chronic obstructive pulmonary disease Category: Medical (2) Nocturnal hypoxemia: Code(s): G47.34 - Idiopathic sleep related nonobstructive alveolar hypoventilation Category: Medical (3) Dyspnea: Code(s): R06.00 - Dyspnea, unspecified Category: Medical Plan At the last visit patient was treated with levaquin for productive cough and dyspnea with significant improvements. She continues to report sinus symptoms which have been chronic. Will enter referral to ENT. Will increase trelegy to 200 mcg as she reports suboptimal effect. Had long discussion regarding her BMI and importance of weight loss. All questions were answered and patient in agreement of plan. Will follow up 4-6 weeks or sooner if needed. She is aware if symptoms worsen to seek emergent care. Orders: Referrals Ear/Nose/Throat Referral J32.9 - Chronic sinusitis, unspecified Medications: New vrdgoblxsny-ryeqsyuox-sxuiptmc 200-62.5-25 mcg (Trelegy Ellipta) 1 inh inhalation DAILY 60 ea 6RF Coding Level of Care Code Est Pt Level 4 (83879) Diagnoses Asthma-COPD overlap syndrome J44.89 Nocturnal hypoxemia G47.34 Dyspnea R06.00
== END 2024-03-02 11:32 | disposition home or self-care (01) ==
PROVIDERS: Visit Provider Nurse Practitioner Family
DX: J44.89 Other specified chronic obstructive pulmonary disease (principal); G47.34 Idiopathic sleep related nonobstructive alveolar hypoventilation; R06.00 Dyspnea, unspecified
CPT/HCPCS: 99214

== ENCOUNTER → 2024-03-02 10:25 | Outpatient (BNVA) | payer OTHER, SELFPAY | PROVIDERS: Visit Provider Nurse Practitioner Family | DX: J44.89 Other specified chronic obstructive pulmonary disease (principal); G47.34 Idiopathic sleep related nonobstructive alveolar hypoventilation; R06.00 Dyspnea, unspecified | CPT/HCPCS: 99212 ==

== ENCOUNTER 2024-04-20 10:49 | Outpatient (AMB) | payer OTHER, SELFPAY ==
--- NOTE | 2024-04-20 10:54 | MHC.OFFVIS ---
Vital Signs 04/20/24 10:55 Height 5 ft 1 in Weight 271 lb 4 oz BMI 51.2 BP 124/68 Blood Pressure Location Rt brachial Position Sitting Pulse 123 H Pulse Source Pulse Oximeter Pulse Oximetry (%) 95 Oxygen Delivery Method Nasal Cannula Oxygen Flow Rate 2 Intake Visit Reasons: dyspnea Mechanical Engineer Required: Yes Mechanical Engineer Language: Human Capital Manager Name: Lizbeth Marcelino OA Allergies promethazine [From PHENERGAN] Allergy (Unknown, Verified 03/02/24 11:02) ITCHING egg Allergy (Verified 03/02/24 11:02) Hives codeine [CODEINE] Adverse Reaction (Unknown, Verified 03/02/24 11:02) STOMACH UPSET morphine [MORPHINE] Adverse Reaction (Unknown, Verified 03/02/24 11:02) MORE PAIN HPI HPI dyspnea: Details: Gail is a pleasant 43-year-old female, former smoker, quit 6+ months ago with approximately 90 pack-year history, with underlying asthma on 2L supplemental oxygen and h/o acute hypoxic respiratory failure secondary to MSSA pneumonia superinfection of prior COVID pneumonia resulting in acute hypoxic respiratory failure requiring intubation and ventilatory support. Hospital course complicated by development of acute cor pulmonale in 2021. At the last visit, an increased dose of Trelegy was sent however patient had issues obtaining. She also notes increased nasal and chest congestion, sinus pressure/pain, and productive cough with yellow sputum. She denies fevers or chills. [facility] Medical History (Updated 04/20/24 @ 11:17 by Sapna Luz NP) Sinus infection Acute and chronic respiratory failure with hypoxia Acute exacerbation of chronic obstructive airways disease Abdominal pain Asthma with exacerbation Lower extremity edema Pneumonia Sepsis Acute exacerbation of COPD with asthma Acute respiratory failure with hypoxia Asthmaticus, status Chronic lung disease ILD (interstitial lung disease) Panic attack as reaction to stress Recurrent major depression Generalized anxiety disorder Morbid obesity Disc herniation H. pylori infection Depression Migraine Asthma Surgical History History of Family History Mother Diabetes High cholesterol Social History Household Members: None Housing: Apartment Housing Other:: 2nd fl Do you presently have visiting nurse or other home services: Yes (visiting nurse) Alcohol intake: never Comment: Pt refusing bed/chair alarm- steady on feet, 1:1 Sitter Patient Tobacco Use Status: Former Tobacco user Tobacco use type: Cigarette Cigarette Packs Per Day: 4 e-Cigarette/Vaping Use: Former Use Second Hand Smoke Exposure: No Advance Directives Date on File: 05/12/22 service: No Current occupational status: unemployed Review of Systems Const Denies chills, Denies excessive sweating, Denies fever(s) and Denies night sweats Eyes Denies dry eyes, Denies irritation and Denies itchy eyes ENT Reports Normal hearing present, Reports nasal congestion, Reports post nasal drip, Reports sinus pain and Reports sinus pressure Card Denies chest pain, Denies chest pain at rest, Denies chest pain with activity, Denies claudication, Reports dyspnea on exertion, Denies orthopnea and Denies paroxysmal nocturnal dyspnea Resp Reports chest congestion, Reports cough, Denies excessive phlegm production, Denies pain on inspiration, Denies pain with cough, Reports dyspnea on exertion and Denies stridor Musc Denies myalgias Neuro Reports Normal hearing present Endo Denies excessive sweating Mark/Lymph Denies lymphadenopathy Aller/Immun Denies itchy eyes and Denies seasonal rhinorrhea Physical Exam Vital Signs: Last Vital Signs Pulse 123 H 04/20/24 10:55 Pulse Ox 95 04/20/24 10:55 Oxygen Delivery Method Nasal Cannula 04/20/24 10:55 Oxygen Flow Rate 2 04/20/24 10:55 BMI result Body Mass Index 51.2 Const General: cooperative, no acute distress, well developed and alert Nutritional Appearance: obese Orientation/consciousness: patient oriented x3 Limitations: no limitations HEENT Head: Yes normal to inspection, Yes normocephalic and Yes atraumatic Ears: hearing grossly normal bilaterally and external ears normal Eyes General: appearance normal, both eyes and all related structures Eyelids: Yes eyelids normal Sclerae: sclerae normal EOM: EOMs intact bilaterally Neck Neck: Yes normal visual inspection and Yes no lymphadenopathy Lymphatic: no lymphadenopathy noted Chest Chest palpation & inspection: normal inspection of the chest Resp Effort & Inspection: normal respiratory effort, able to speak in complete sentences, no audible wheezes, no cough, no stridor, not tachypneic, no tripod positioning and no use of accessory muscles Auscultation: diminished lung sounds Cardio Jugular venous distension: no JVD Rate: regular rate Rhythm: regular rhythm Skin Other: warm, dry General skin exam: no rashes or lesions noted Neuro General: patient oriented x3 Cranial nerves: Yes Normal hearing present Cognition (Neuro): normal cognition Gait exam (Neuro): Normal gait present Psych Appearance: grossly normal and well kempt Speech and movement: Normal speech and movement present and Clear speech present Affect: normal affect Attitude: cooperative Thought process: Normal thought process present Thought content: Normal thought content present Insight: Good insight present (Psych) Judgement: Good judgement present (Psych) Assessment & Plan Assessment & Plan (1) Asthma-COPD overlap syndrome: Code(s): J44.89 - Other specified chronic obstructive pulmonary disease Category: Medical (2) Nocturnal hypoxemia: Code(s): G47.34 - Idiopathic sleep related nonobstructive alveolar hypoventilation Category: Medical (3) Dyspnea: Code(s): R06.00 - Dyspnea, unspecified Category: Medical (4) Sinus infection: Code(s): J32.9 - Chronic sinusitis, unspecified Category: Medical Plan Will treat sinusitis and bronchitic symptoms with doxycycline. She is aware if symptoms worsen to seek emergent care, if no better will obtain sputum/CXR. Will resend Trelegy 200 mcg and zyrtec. Will attempt PFT. All questions were answered and patient in agreement of plan. Will follow up 4-6 weeks or sooner if needed. Medications: New doxycycline hyclate 100 mg PO BID 14 caps 0RF cetirizine (Zyrtec) 10 mg PO DAILY PRN 30 tabs 3RF allergy symptoms Refilled tgixiqgonfj-huocxpbvk-qyivuown 200-62.5-25 mcg (Trelegy Ellipta) 1 inh inhalation DAILY 60 ea 6RF Coding Level of Care Code Est Pt Level 4 (40065) Diagnoses Asthma-COPD overlap syndrome J44.89 Nocturnal hypoxemia G47.34 Dyspnea R06.00 Sinus infection J32.9
[2024-04-20 10:55] VITALS: BP 124/68; PULSE 123; O2SAT 95; BMI 51.2
== END 2024-04-20 11:16 | disposition home or self-care (01) ==
PROVIDERS: Visit Provider Nurse Practitioner Family
DX: J44.89 Other specified chronic obstructive pulmonary disease (principal); G47.34 Idiopathic sleep related nonobstructive alveolar hypoventilation; R06.00 Dyspnea, unspecified; J32.9 Chronic sinusitis, unspecified
CPT/HCPCS: 99214

== ENCOUNTER → 2024-04-20 10:49 | Outpatient (BNVA) | payer OTHER, SELFPAY | PROVIDERS: Visit Provider Nurse Practitioner Family | DX: J44.89 Other specified chronic obstructive pulmonary disease (principal); J32.9 Chronic sinusitis, unspecified; G47.34 Idiopathic sleep related nonobstructive alveolar hypoventilation; R06.00 Dyspnea, unspecified; Z99.81 Dependence on supplemental oxygen; Z87.891 Personal history of nicotine dependence | CPT/HCPCS: 99212 ==

== ENCOUNTER 2024-05-18 14:09 | Outpatient (AMB) | payer OTHER, SELFPAY ==
--- NOTE | 2024-05-18 12:57 | A.OFFVIS_ITS ---
Vital Signs 05/18/24 14:11 Height 5 ft 1 in BP 124/72 Blood Pressure Location Rt brachial Position Sitting Pulse 108 H Pulse Source Pulse Oximeter Pulse Oximetry (%) 97 Oxygen Delivery Method Nasal Cannula Oxygen Flow Rate 2 Intake Visit Reasons: dyspnea Organic Gardening Teacher Required: Yes Organic Gardening Teacher Name: Lizbeth Hung Adaptive Physical Education Specialist: Adaptive Physical Education Specialist offered & declined Accompanied by: Self / Same As Patient Allergies promethazine [From PHENERGAN] Allergy (Unknown, Verified 05/18/24 14:16) ITCHING egg Allergy (Verified 05/18/24 14:16) Hives codeine [CODEINE] Adverse Reaction (Unknown, Verified 05/18/24 14:16) STOMACH UPSET morphine [MORPHINE] Adverse Reaction (Unknown, Verified 05/18/24 14:16) MORE PAIN HPI HPI dyspnea: Details: Gail is a pleasant 43-year-old female, former smoker, quit 6+ months ago with approximately 90 pack-year history, with underlying severe asthma on 2L supplemental oxygen, chronic sinusitis and h/o acute hypoxic respiratory failure secondary to MSSA pneumonia superinfection of prior COVID pneumonia resulting in acute hypoxic respiratory failure requiring intubation and ventilatory support. Hospital course complicated by development of acute cor pulmonale in 2021. At the last visit, an increased dose of Trelegy was sent, as she reported suboptimal effect with Trelegy 100 mcg. Unfortunately she continues to report poor response, reporting sinus congestion, dyspnea, wheezing and intermittent dry cough. Of note, patient consistently with elevated eosinophilia which may be a component to symptoms. A referral had been placed to ENT however she has yet to hear back to schedule an appt. She also has PFT scheduled 05/29. She denies any visits to urgent care or hospitalizations since last visit related to respiratory distress. She has been using 2L of supplemental oxygen with exertion and NOC. [facility] Medical History (Updated 05/21/24 @ 09:53 by Sapna Luz NP) Sinus infection Acute and chronic respiratory failure with hypoxia Acute exacerbation of chronic obstructive airways disease Abdominal pain Asthma with exacerbation Lower extremity edema Pneumonia Sepsis Acute exacerbation of COPD with asthma Acute respiratory failure with hypoxia Asthmaticus, status Chronic lung disease ILD (interstitial lung disease) Panic attack as reaction to stress Recurrent major depression Generalized anxiety disorder Morbid obesity Disc herniation H. pylori infection Depression Migraine Asthma Surgical History History of Family History Mother Diabetes High cholesterol Social History Household Members: None Housing: Apartment Housing Other:: 2nd fl Do you presently have visiting nurse or other home services: Yes (visiting nurse) Alcohol intake: never Comment: Pt refusing bed/chair alarm- steady on feet, 1:1 Sitter Patient Tobacco Use Status: Former Tobacco user Tobacco use type: Cigarette Cigarette Packs Per Day: 4 e-Cigarette/Vaping Use: Former Use Second Hand Smoke Exposure: No Advance Directives Date on File: 05/12/22 service: No Current occupational status: unemployed Review of Systems Const Denies chills, Denies excessive sweating, Denies fever(s) and Denies night sweats Eyes Denies dry eyes, Denies irritation and Denies itchy eyes ENT Reports Normal hearing present and Reports nasal congestion Card Denies chest pain, Denies chest pain at rest, Denies chest pain with activity, Denies claudication, Reports dyspnea on exertion, Denies orthopnea and Denies paroxysmal nocturnal dyspnea Resp Reports chest congestion, Reports cough, Denies excessive phlegm production, Denies pain on inspiration, Denies pain with cough, Reports dyspnea on exertion, Denies stridor and Reports wheezing Musc Denies myalgias Neuro Reports Normal hearing present Endo Denies excessive sweating Mark/Lymph Denies lymphadenopathy Aller/Immun Denies itchy eyes, Denies seasonal rhinorrhea and Reports wheezing Physical Exam Vital Signs: Last Vital Signs Pulse 108 H 05/18/24 14:11 BP 124/72 05/18/24 14:11 Pulse Ox 97 05/18/24 14:11 Oxygen Delivery Method Nasal Cannula 05/18/24 14:11 Oxygen Flow Rate 2 05/18/24 14:11 Const General: cooperative, healthy appearing, comfortable, no acute distress, well developed and alert Nutritional Appearance: obese Orientation/consciousness: patient oriented x3 Limitations: no limitations HEENT Head: Yes normal to inspection, Yes normocephalic and Yes atraumatic Ears: hearing grossly normal bilaterally and external ears normal Eyes General: appearance normal, both eyes and all related structures Eyelids: Yes eyelids normal Sclerae: sclerae normal EOM: EOMs intact bilaterally Neck Neck: Yes normal visual inspection and Yes no lymphadenopathy Lymphatic: no lymphadenopathy noted Chest Chest palpation & inspection: normal inspection of the chest Resp Effort & Inspection: normal respiratory effort, able to speak in complete sentences, no audible wheezes, no cough, no stridor, not tachypneic, no tripod positioning and no use of accessory muscles Auscultation: clear to auscultation bilaterally Cardio Jugular venous distension: no JVD Rate: regular rate Rhythm: regular rhythm Skin Other: warm, dry General skin exam: no rashes or lesions noted Neuro General: patient oriented x3 Cranial nerves: Yes Normal hearing present Cognition (Neuro): normal cognition Gait exam (Neuro): Normal gait present Extrem General: Yes normal to inspection, Yes capillary refill normal, Yes no clubbing, cyanosis or edema and Yes no pedal edema Psych Appearance: grossly normal and well kempt Speech and movement: Normal speech and movement present and Clear speech present Affect: normal affect Attitude: cooperative Thought process: Normal thought process present Thought content: Normal thought content present Insight: Good insight present (Psych) Judgement: Good judgement present (Psych) Assessment & Plan Assessment & Plan (1) Severe asthma: Code(s): J45.909 - Unspecified asthma, uncomplicated Category: Medical (2) COPD (chronic obstructive pulmonary disease): Code(s): J44.9 - Chronic obstructive pulmonary disease, unspecified Category: Medical (3) Nocturnal hypoxemia: Code(s): G47.34 - Idiopathic sleep related nonobstructive alveolar hypoventilation Category: Medical (4) Dyspnea: Code(s): R06.00 - Dyspnea, unspecified Category: Medical Plan Will trial prednisone as likely an eosinophilic component to symptoms. Advised to continue to use Trelegy and albuterol MDI. We did discuss biologics as she continues with suboptimal control on current medication regimen, which she would like to proceed with. Will enter order for Dupixent for persistent OCS use. Will also send for overnight oximetry to ensure nocturnal hypoxemia resolves with 2L of supplemental oxygen. All questions were answered and patient in agreement of plan. Will follow up 6-8 weeks or sooner if needed. Orders: Orders Overnight Pulse Oximetry Today G47.34 - Idiopathic sleep related nonobstructive alveolar hypoventilation Medications: New prednisone see taper instructions; 40 mg Daily x3 days, 30 mg daily x3 days, 20 mg daily x3 days, 10 mg daily x3 days 10 mg PO DIRECTED 30 tabs 0RF Discontinued amoxicillin-pot clavulanate 875-125 mg Discontinued Reason: Patient Completed Course 1 tab PO BID 13 tabs 0RF doxycycline hyclate Discontinued Reason: Patient Completed Course 100 mg PO BID 14 caps 0RF zzkynvgrpch-blgvphgxm-zbvvncva 100-62.5-25 mcg (Trelegy Ellipta) Discontinued Reason: Patient Completed Course 1 inh inhalation DAILY 60 ea 6RF Coding Level of Care Code Est Pt Level 4 (85035) Complex EM visit Add On G2211 Diagnoses Severe asthma J45.909 COPD (chronic obstructive pulmonary disease) J44.9 Nocturnal hypoxemia G47.34 Dyspnea R06.00
[2024-05-18 14:11] VITALS: BP 124/72; PULSE 108; O2SAT 97
--- OUTSIDE RECORDS SUMMARY | 2024-05-18 15:50 | XMS_ITS | Clinical Summary ---
Author Organization [facility] Address [address] [place] [address] Care Team Providers Care Law Office Manager Name Role Phone Unavailable Primary Care Provider Unavailabl e Social History Tobacco Use Types Packs/Day Years Used Date Smoking Tobacco: Never Assessed Sex and Gender Information Value Date Recorded Sex Assigned at Not on file Gender Identity Not on file Sexual Orientation Not on file Plan of Treatment Health Maintenance Due Date Last Done Comments Breast Cancer Screening 1980 DTaP,Tdap,and Td Vaccines (1 - Tdap) 08/29/1998 Hepatitis B Vaccines (1 of 3 - 19+ 3-dose series) 08/29/1998 Cervical Cancer Screening: P ap Smear 08/29/2000 Depression Screening 03/24/2022 HIV Screening 03/24/2022 Hepatitis C Screening 03/24/2022 Social Influencers of Health Screening 03/24/2022 COVID-19 Vaccine (2023-2 5 season) 2023 Influenza Vaccine (#1) 2023 HIB Vaccines Aged Out No longer eligi ble based on patient's age to complete this topic HPV Vaccines Aged Out No longer eligi ble based on patient's age to complete this topic Hepatitis A Vaccines Aged Out No long er eligible based on patient's age to complete this topic IPV Vaccines Aged Out No longer eligi ble based on patient's age to complete this topic MMR Vaccines Aged Out No longer eligi ble based on patient's age to complete this topic Meningococcal ACWY Vaccine Aged Out N o longer eligible based on patient's age to complete this topic Pneumococcal Vaccine: Pediat rics (0 to 5 Years) and At-Risk Patients (6 to 64 Years) Aged Out No longer eligible b ased on patient's age to complete this topic RSV Immunization Patients Un pérez 20 months Aged Out No longer eligible b ased on patient's age to complete this topic Varicella Vaccines Aged Out No longer eligible based on patient's age to complete this topic
--- OUTSIDE RECORDS SUMMARY | 2024-05-18 15:50 | XMS_ITS | Data Portability ---
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 Abdominal exam is benign. Non toxic in appearance, low suspicion for choledocholit hiasis. Will obtain labs including lipase, bilirubin, hepatic function, CBC, creat, BUN and lytes as patient's PCP will be following with her. Pt is supposed to have GI to follow up with for her GERD and post H Pylori infection. Pt was encouraged to work on this as her symptoms seem to correlate as in the past with her GERD.. Pt was advised to seek the ED with any worsening symptoms, fevers, shortness of breath. Pt was given a work note to miss work today. 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 Not available 10/06/2020 19:25:38 Plan of Treatment Reminders Order Date Submit Date Provider Last Modified By Organization Details Last Modified Time Details Appointments None recorded. Lab lipase, serum or plasma 2020 021 WADE [facility], [address] [place], [address], 21:57:51 CBC w/ auto diff 2020 021 WADE [facility], [address] [place], [address], 21:04:45 hepatic function panel, serum 2020 [facility], [address] [place], [address], 21:57:48 bun (blood urea nitrogen), serum or plasma 2020 021 [facility] [address] [place], [address], 21:57:36 creatinine, serum or plasma 2020 021 WADE [facility], [address] [place], [address], 21:57:44 electrolyte panel, serum 2020 [facility] [address] [place], [address], 21:57:55 Referral None recorded. Procedures None recorded. Surgeries None recorded. Imaging None recorded. Medication Orders None recorded. Patient TargetsNo targets recorded. Patient Instructions Encounter Date Encounter Id Patient Instructions Last Modified By Organization Details Last Modified Time 10/06/2020 [id number] [employer] [facility] came to your home to evaluate you for epigastric pain for the past week. It has been constant with some nausea and worse with eating. We nevin blood and sent it to the lab for your PCP to follow up with. You should follow up with them for further testing as this is something you have had in the past. If you have worsening pain ,vomiting, fevers or feel worse, go to the ED. Thank you for your visit with [facility] today. We cannot always find the exact cause of your symptoms during your initial visit. Please follow up with your primary care provider or specialist to be rechecked or seek medical attention if your symptoms do not go away or get worse. If you develop any new or worsening symptoms and need after hours care, please go to nearest ER and/or call 911. If you have additional concerns or develop a change in your condition between 8am-10pm, please call [facility] at [phone] to help navigate your care. Not available 10/06/2020 14:14:08 Reason for Referral None Reported. Results Created Date Observation Date Name Description Value Unit Range Abnormal Flag Note LastModifiedBy Organization Detail LastModifiedTime 10/07/19 21 10/06/2020 CBC w/ auto diff WBC 11.8 K/mm3 (4.0-1 1.0) high Not Available [facility] [address] [place], [address], 10/06/2020 21:04:45 10/07/19 21 10/06/2020 CBC w/ auto diff RBC 4.64 M/mm3 (4.20- 5.40) Not Available [facility] [address] [place], [address], 10/06/2020 21:04:45 10/07/19 21 10/06/2020 CBC w/ auto diff HGB 13.4 gm/dL (11.7- 15.5) Not Available [facility] [address] [place], [address], 10/06/2020 21:04:45 10/07/19 21 10/06/2020 CBC w/ auto diff HCT 41.4 % (35.7- 45.8) Not Available [facility] [address] [place], [address], 10/06/2020 21:04:45 10/07/19 21 10/06/2020 CBC w/ auto diff MCV 89.2 fL (80.0- 100.0) Not Available [facility] [address] [place], [address], 10/06/2020 21:04:45 10/07/19 21 10/06/2020 CBC w/ auto diff MCH 28.9 pg (27.0- 34.0) Not Available [facility] [address] [place], [address], 10/06/2020 21:04:45 10/07/19 21 10/06/2020 CBC w/ auto diff MCHC 32.4 g/dL (33.0- 37.0) low Not Available [facility] [address] [place], [address], 10/06/2020 21:04:45 10/07/19 21 10/06/2020 CBC w/ auto diff plt 318 K/mm3 (150-4 60) Not Available [facility] [address] [place], [address], 10/06/2020 21:04:45 10/07/19 21 10/06/2020 CBC w/ auto diff RDW-SD 47.3 fL (<47.0 ) high Not Available [facility] [address] [place], [address], 10/06/2020 21:04:45 10/07/19 21 10/06/2020 CBC w/ auto diff MPV 10.9 fL (9.4-1 2.4) Not Available [facility] [address] [place], [address], 10/06/2020 21:04:45 10/07/19 21 10/06/2020 CBC w/ auto diff automated NRBC 0.0 #/100 _WBC' s Not Available [facility] [address] [place], [address], 10/06/2020 21:04:45 10/07/19 21 10/06/2020 CBC w/ auto diff abs. NRBC 0.0 K/mm3 Not Available [facility] [address] [place], [address], 10/06/2020 21:04:45 10/07/19 21 10/06/2020 CBC w/ auto diff neut # 6.7 K/mm3 (1.3-7 .0) Not Available [facility] [address] [place], [address], 10/06/2020 21:04:45 10/07/19 21 10/06/2020 CBC w/ auto diff lymph # 3.6 K/mm3 (0.8-3 .1) high Not Available [facility] [address] [place], [address], 10/06/2020 21:04:45 10/07/19 21 10/06/2020 CBC w/ auto diff mono# 0.9 K/mm3 (0.4-0 .9) Not Available [facility] [address] [place], [address], 10/06/2020 21:04:45 10/07/19 21 10/06/2020 CBC w/ auto diff eo # 0.5 K/mm3 (0.0-0 .4) high Not Available [facility] [address] [place], [address], 10/06/2020 21:04:45 10/07/19 21 10/06/2020 CBC w/ auto diff baso # 0.1 K/mm3 (0.0-0 .1) Not Available [facility] [address] [place], [address], 10/06/2020 21:04:45 10/07/19 21 10/06/2020 CBC w/ auto diff abs. imm gran 0.0 K/mm3 Not Available [facility] [address] [place], [address], 10/06/2020 21:04:45 10/07/19 21 10/06/2020 CBC w/ auto diff neut 56.9 % (44-76 ) Not Available [facility] [address] [place], [address], 10/06/2020 21:04:45 10/07/19 21 10/06/2020 CBC w/ auto diff lymph 30.2 % (15-43 ) Not Available [facility] [address] [place], [address], 10/06/2020 21:04:45 10/07/19 21 10/06/2020 CBC w/ auto diff monocyte 7.2 % (4.5-1 0.5) Not Available [facility] [address] [place], [address], 10/06/2020 21:04:45 10/07/19 21 10/06/2020 CBC w/ auto diff eo 4.3 % (0-6) Not Available [facility] [address] [place], [address], 10/06/2020 21:04:45 10/07/19 21 10/06/2020 CBC w/ auto diff baso 1.1 % (0-2) Not Available [facility] [address] [place], [address], 10/06/2020 21:04:45 10/07/19 21 10/06/2020 CBC w/ auto diff imm gran 0.3 % Not Available [facility] [address] [place], [address], 10/06/2020 21:04:45 10/07/19 21 10/06/2020 bun (bloo d urea nitro gen), serum or plasm a BUN 9 mg/dL (6-20) Not Available [facility] [address] [place], [address], 10/06/2020 21:57:36 10/07/19 21 10/06/2020 creat inine , serum or plasm a creatinine 0.8 mg/dL (0.5-1 .0) Not Available [facility] [address] [place], [address], 10/06/2020 21:57:44 10/07/19 21 10/06/2020 creat inine , serum or plasm a est GFR non 97 mL/mi n/1.7 3_M2 Creat inine based estim ated glome rular filtr ation rate (eGFR ) is calcu lated using the Chron ic Kidne y Disea se Epide miolo gy Colla borat ion (CKD- EPI). The CKD-E PI creat inine equat ion has not been valid ated in child james (<18 years ), pregn ant women or in some racia l or ethni c subgr oups other than Cauca sians and Afric an Ameri cans. Not Available [facility] [address], [address], 10/06/2020 21:57:44 10/07/19 21 10/06/2020 creat inine , serum or plasm a est GFR 113 mL/mi n/1.7 3_M2 Creat inine based estim ated glome rular filtr ation rate (eGFR ) is calcu lated using the Chron ic Kidne y Disea se Epide miolo gy Colla borat ion (CKD- EPI). The CKD-E PI creat inine equat ion has not been valid ated in child james (<18 years ), pregn ant women or in some racia l or ethni c subgr oups other than Cauca sians and Afric an Ameri cans. Not Available [facility] [address], [address], 10/06/2020 21:57:44 10/07/19 21 10/06/2020 hepat ic funct ion panel , serum bilirubin,to tia <0.2 mg/dL (0-1.2 ) Not Available [facility] [address] [place], [address], 10/06/2020 21:57:48 10/07/19 21 10/06/2020 hepat ic funct ion panel , serum bilirubin, direct <0.2 mg/dL (0-0.3 ) Not Available [facility] [address] [place], [address], 10/06/2020 21:57:48 10/07/19 21 10/06/2020 hepat ic funct ion panel , serum indirect bilirubin mg/dL (0.0-0 .7) Total bilir ubin is less than the measu reabl e limit . There fore, indir ect bilir ubin canno t be calcu lated . Not Available [facility] [address] [place], [address], 10/06/2020 21:57:48 10/07/19 21 10/06/2020 hepat ic funct ion panel , serum albumin 3.9 gm/dL (3.4-4 .8) Not Available [facility] [address] [place], [address], 10/06/2020 21:57:48 10/07/19 21 10/06/2020 hepat ic funct ion panel , serum AST 20 U/L (0-32) Not Available [facility] [address] [place], [address], 10/06/2020 21:57:48 10/07/19 21 10/06/2020 hepat ic funct ion panel , serum ALT 16 U/L (0-33) Not Available [facility] [address] [place], [address], 10/06/2020 21:57:48 10/07/19 21 10/06/2020 hepat ic funct ion panel , serum alk phos 91 U/L (35-10 4) Not Available [facility] [address] [place], [address], 10/06/2020 21:57:48 10/07/19 21 10/06/2020 hepat ic funct ion panel , serum total protein 6.0 gm/dL (6.2-8 .2) low Not Available [facility] [address] [place], [address], 10/06/2020 21:57:48 10/07/19 21 10/06/2020 lipas e, serum or plasm a lipase 20 U/L (13-60 ) Not Available [facility] [address] [place], [address], 10/06/2020 21:57:51 10/07/19 21 10/06/2020 elect rolyt e panel , serum sodium 137 mmol/ L (133-1 45) Not Available [facility] [address] [place], [address], 10/06/2020 21:57:55 10/07/19 21 10/06/2020 elect rolyt e panel , serum potassium 4.4 mmol/ L (3.6-5 .2) Not Available [facility] [address] [place], [address], 10/06/2020 21:57:55 10/07/19 21 10/06/2020 elect rolyt e panel , serum chloride 102 mmol/ L (98-10 7) Not Available [facility] [address] [place], [address], 10/06/2020 21:57:55 10/07/19 21 10/06/2020 elect rolyt e panel , serum bicarbonate 22 mmol/ L (22-29 ) Not Available [facility] [address] [place], [address], 10/06/2020 21:57:55 10/07/19 21 10/06/2020 elect rolyt e panel , serum anion gap 13 (4-17) Not Available [facility] [address] [place], [address], 10/06/2020 21:57:55 Result Notes None recorded. Procedures Surgical History Date Name Laterality Status Provider Name and Address Organization Details Recorded Time cholecystectomy completed DEBBIE GAN NP [address] [place], [address], [place] [facility] 10/06/2020 13:55:28 Imaging Results None recorded. Procedure Notes None recorded. Medical Equipment None Reported. Allergies Allergen ID Allergen Name Allergen Category Reaction Reaction Severity Criticality Documentation Date Start Date Code Code System Note Provider Name and Address Organization Details Recorded Time 20180602 morphine medicatio n abdominal pain Not available Not available 10/06/2020 7052 RxNorm DEBBIE GARCIA NP [address] [place], [address], [place] [facility] 13:52:48 Phenergan medicatio n Not available Not available Not available 10/06/2020 31472 8 RxNorm DEBBIE GARCIA, [employer] [address] [place], [address], [place] [facility] 13:53:00 20180623 codeine medicatio n Not available Not available Not available 10/06/2020 2670 RxNorm DEBBIE GARCIA, [employer] [address], [place], [address], [place] [facility] 13:53:07 Medications Name Sig Start Date Stop Date Status Note LastModified by Organization Details LastModified Time cyclobenzapri ne 10 mg tablet TOME ANGIE TABLETA POR V A ORAL FREIDA VECES AL D A CUANDO SEA NECESARIO MUSCLE SPASM active Not Available Not Available No t Available Vitamin B-2 100 mg tablet TOME DOS TABLETAS POR V A ORAL DOS VECES AL D A CON ALIMENTO (TO PREVENT HEADACHE) active Not Available Not Available No t Available acetaminophen 325 mg tablet TOME DOS TABLETAS POR V A ORAL CADA SEIS HORAS CUANDO SEA NECESARIO PARA EL DOLOR /FEVER active Not Available Not Available No t Available azithromycin 250 mg tablet TOME 2 TABLETAS POR V A ORAL HOY, [place] TOME 1 TABLETA POR D A AP 4 D active Not Available Not Available No t Available sumatriptan 100 mg tablet TOME ANGIE TABLETA POR V A ORAL TODOS LOS D CUANDO SEA NECESARIO MIGRAINE NO MORE THAN 2/WEEK active Not Available Not Available No t Available sumatriptan 25 mg tablet TAKE 1 TAB BY MOUTH ONCE DAILY FOR MIGRAINE*M AY REPEAT DOSE AFTER 2 HOURS UP TO 2/DAY (09/03) active Not Available Not Available No t Available ondansetron HCl 4 mg tablet 1 TABLET BY MOUTH EVERY 8 HOURS NEEDED FOR VOMITING active Not Available Not Available No t Available gabapentin 400 mg capsule TOME ANGIE C PSULA TODOS LOS D AL ACOSTARSE active Not Available Not Available No t Available hydroxyzine pamoate 50 mg capsule TOME 1 C PSULA POR V A ORAL DOS VECES AL D A TAKE UP TO 50MG IN THE MORNING AND 100MG AT NIGHT active Not Available Not Available No t Available oxcarbazepine 300 mg tablet TOME ANGIE TABLETA DOS VECES AL D A active Not Available Not Available No t Available prazosin 5 mg capsule TOME ANGIE C PSULA TODOS LOS D AL ACOSTARSE active Not Available Not Available No t Available hydromorphone 2 mg tablet TOME ANGIE TABLETA CADA 12 HORAS CUANDO SEA NECESARIO PARA EL DOLOR active Not Available Not Available No t Available famotidine 20 mg tablet TOME ANGIE TABLETA TODOS LOS D AL ACOSTARSE active Not Available Not Available No t Available Solarcaine Aloe Extra 0.5 % topical gel APLIQUE AL ELI AFECTADA FREIDA VECES AL D A CUANDO SEA NECESARIO PARA EL DOLOR active Not Available Not Available No t Available paroxetine 30 mg tablet TOME ANGIE TABLETA TODOS LOS D AL ACOSTARSE active Not Available Not Available No t Available paroxetine 20 mg tablet TOME ANGIE TABLETA TODOS LOS D AL ACOSTARSE active Not Available Not Available No t Available nicotine 21 mg/24 hr daily transdermal patch APLIQUE UN PARCHE AL D A active Not Available Not Available No t Available Prevalite 4 gram powder for susp in a packet TAKE 1 PACKET MIXED IN WATER DOS VECES AL MARISELA active Not Available Not Available No t Available omeprazole 20 mg capsule,delay ed release 1 CAPSULE BY MOUTH DAILY,X30 DAYS active Not Available Not Available No t Available montelukast 10 mg tablet TOME ANGIE TABLETA TODOS LOS D active Not Available Not Available No t Available gabapentin 100 mg capsule TAKE 1 CAPSULE BY MOUTH THREE TIMES A DAY NEEDED PARA ANSIEDAD/P MARGARET DORMIR active Not Available Not Available N ot Available levofloxacin 500 mg tablet TOME ANGIE TABLETA TODOS LOS D active Not Available Not Available No t Available dicyclomine 10 mg capsule TOME 2 CAPSULAS POR VIA ORAL CUATRO VECES AL MARISELA 30 60 MIN BEFORE MEALS active Not Available Not Available No t Available naproxen 500 mg tablet TOME ANGIE TABLETA CADA 12 HORAS POR 5 NAVA. DESPUES DE 5DS, USE CUANDO ES NECESARIO CADA 12 HORAS. active Not Available Not Available No t Available Prevalite 4 gram oral powder TAKE 4 GRAMS DIRECTED DOS VECES AL D A active Not Available Not Available No t Available ProAir HFA 90 mcg/actuation aerosol inhaler INHALE 2 PUFFS POR V A ORAL CADA CUATRO HORAS CUANDO SEA NECESARIO FOR WHEEZING active Not Available Not Available No t Available Symbicort 160 mcg-4.5 mcg/actuation HFA aerosol inhaler INHALE DANDO DOS SOPLIDOS POR VIA ORAL DOS VECES AL MARISELA active Not Available Not Available No t Available cholecalcifer ol (vitamin D3) 50 mcg (2,000 unit) tablet TOME DOS TABLETAS POR V A ORAL TODOS LOS D active Not Available Not Available No t Available Incassia 0.35 mg tablet TOME ANGIE TABLETA TODOS LOS D active Not Available Not Available No t Available Vitals Date Recorded Heart rate Respiratory rate Body temperature Oxygen saturation Oxygen saturation in Arterial blood by Pulse oximetry Systolic blood pressure Diastolic blood pressure Provider Name and Address Organization Details Last Updated DateTime 1 78 /min 18 /min 97.2 [degF] 97 % 97 % 124 mm[Hg] 72 mm[Hg] Not Available [facility] 13:56:45 Social History None recorded. Functional Status None recorded. Mental Status None recorded. Family History Nothing Reported. Medical History Condition Response Depression Y Asthma Y Gynecological HistoryNo gynecological history recorded. Obstetrics History GPAL:G 0 P 0 0 0 0 Past Encounters Encounter ID Performer Location Encounter Start Date Encounter Closed Date Diagnosis/Indication Diagnosis SNOMED-CT Code Diagnosis ICD10 Code Diagnosis Note [id number] DEBBIE GARCIA NP [facility] [address] [place] [address] 10/06/2020 13:50:21 10/09/2020 17:34:09 Epigastric pain 51135255 R10.13 Health Concerns Section Related Observation LastModified by Organization Detai ls LastModified Time None Recorded Concern Status LastModified by Organization Details LastModified Time None Recorded Advance Directives Directive None Recorded Payers Encounter Date Sequence Insurance Name Policy Number Policy Flores Covered Member ID Flores Member ID Guarantor Name 10/06/2020 1 [facility] (MEDICAID H[facility]) [id number] Gail Multani [id number] Gail Multani Notes Date Note Type Note Provider Name and Address Organization Details Recorded Time 10/06/2020 text/html 40 year-old fema le with history of GERD, depression, anxiety, cholecystectomy who calls DH to the home for evaluation of abdominal pain. Pt sts she has been having epigastric pain for the past week. It is constant and non-radiating. She has had some nausea but denies vomiting. Eating seems to make it worse. She has noticed a bad taste in her mouth. She has had this before. She was admitted to [facility] and treated for a stomach bacterial infection a couple of months ago. She denies any change in bowel or bladder patterns. She has been taking her omeprazole and dicyclomine. She ran out of her carafate a couple of weeks ago and is waiting for refill. She called for PCP appointment but they are booked up and asked DH to see her.Pt is also asking for a work note to stay out work today. DEBBIE GARCIA, AKHIL [address], [place], [address], [place] [facility] 10/06/2020 19:25:52 OBGyn Episode No OBEpisode recorded.
== END 2024-05-18 15:26 | disposition home or self-care (01) ==
PROVIDERS: Visit Provider Nurse Practitioner Family
DX: J45.909 Unspecified asthma, uncomplicated (principal); J44.9 Chronic obstructive pulmonary disease, unspecified; G47.34 Idiopathic sleep related nonobstructive alveolar hypoventilation; R06.00 Dyspnea, unspecified
CPT/HCPCS: 99214; G2211

== ENCOUNTER → 2024-05-18 14:09 | Outpatient (BNVA) | payer OTHER, SELFPAY | PROVIDERS: Visit Provider Nurse Practitioner Family | DX: J45.909 Unspecified asthma, uncomplicated (principal); J44.9 Chronic obstructive pulmonary disease, unspecified; G47.34 Idiopathic sleep related nonobstructive alveolar hypoventilation; R06.00 Dyspnea, unspecified | CPT/HCPCS: 99212 ==

== ENCOUNTER 2024-05-29 14:47 | Outpatient (REF) | payer OTHER, SELFPAY ==
--- OUTSIDE RECORDS SUMMARY | 2024-05-29 14:49 | XMS_ITS | Data Portability ---
Author Organization [place] [facility] Address [address] [place] [address] Care Team Providers Care Computer Scientist Name Role Phone VICTOR MANUEL GEORGE ADULT [...] [facility], [address] [place], [address], 21:57:51 CBC w/ auto diff 2020 021 WADE [facility], [address] [place], [address], 21:04:45 hepatic function panel, serum 2020 021 [facility], [address] [place], [address], 21:57:48 bun (blood urea nitrogen), serum or plasma 2020 021 [facility], [address] [place], [address], 21:57:36 creatinine, serum or plasma 2020 021 WADE [facility], [address] [place], [address], 21:57:44 electrolyte panel, serum 2020 021 [facility], [address] [place], [address], 21:57:55 Referral None recorded. Procedures None recorded. Surgeries None recorded. Imaging None recorded. Medication Orders None recorded. Patient TargetsNo targets recorded. Patient Instructions Encounter Date Encounter Id Patient Instructions Last Modified By Organization Details Last Modified Time 10/06/2020 [id number] SYSTRAN came to your home to evaluate you [...] ED. Thank you for your visit with [facility] today. We cannot always find the exact [...] in your condition between 8am-10pm, please call [facility] at [phone] to help navigate your care. Not available 10/06/2020 14:14:08 Reason for Referral None Reported. Results Created Date Observation Date Name Description Value Unit Range Abnormal Flag Note LastModifiedBy Organization Detail LastModifiedTime 10/07/19 21 10/06/2020 CBC w/ auto diff WBC 11.8 K/mm3 (4.0-1 1.0) high Not Available [facility] [address] [place], [address], 10/06/2020 21:04:45 10/07/19 21 10/06/2020 CBC w/ auto diff RBC 4.64 M/mm3 (4.20- 5.40) Not Available [facility] [address] [place], [address], 10/06/2020 21:04:45 10/07/19 21 10/06/2020 CBC w/ auto diff HGB 13.4 gm/dL (11.7- 15.5) Not Available [facility] [address] [place], [address], 10/06/2020 21:04:45 10/07/19 21 10/06/2020 CBC w/ auto diff HCT 41.4 % (35.7- 45.8) Not Available [facility] [address] [place], [address], 10/06/2020 21:04:45 10/07/19 21 10/06/2020 CBC w/ auto diff MCV 89.2 fL (80.0- 100.0) Not Available [facility] [address] [place], [address], 10/06/2020 21:04:45 10/07/19 21 10/06/2020 CBC w/ auto diff MCH 28.9 pg (27.0- 34.0) Not Available [facility] [address] [place], [address], 10/06/2020 21:04:45 10/07/19 21 10/06/2020 CBC w/ auto diff MCHC 32.4 g/dL (33.0- 37.0) low Not Available [facility] [address] [place], [address], 10/06/2020 21:04:45 10/07/19 21 10/06/2020 CBC w/ auto diff plt 318 K/mm3 (150-4 60) Not Available [facility] [address] [place], [address], 10/06/2020 21:04:45 10/07/19 21 10/06/2020 CBC w/ auto diff RDW-SD 47.3 fL (<47.0 ) high Not Available [facility] [address] [place], [address], 10/06/2020 21:04:45 10/07/19 21 10/06/2020 CBC w/ auto diff MPV 10.9 fL (9.4-1 2.4) Not Available [facility] [address] [place], [address], 10/06/2020 21:04:45 10/07/19 21 10/06/2020 CBC w/ auto diff automated NRBC 0.0 #/100 _WBC' s Not Available [facility] [address] [place], [address], 10/06/2020 21:04:45 10/07/19 21 10/06/2020 CBC w/ auto diff abs. NRBC 0.0 K/mm3 Not Available [facility] [address] [place], [address], 10/06/2020 21:04:45 10/07/19 21 10/06/2020 CBC w/ auto diff neut # 6.7 K/mm3 (1.3-7 .0) Not Available [facility] [address] [place], [address], 10/06/2020 21:04:45 10/07/19 21 10/06/2020 CBC w/ auto diff lymph # 3.6 K/mm3 (0.8-3 .1) high Not Available [facility] [address] [place], [address], 10/06/2020 21:04:45 10/07/19 21 10/06/2020 CBC w/ auto diff mono# 0.9 K/mm3 (0.4-0 .9) Not Available [facility] [address] [place], [address], 10/06/2020 21:04:45 10/07/19 21 10/06/2020 CBC w/ auto diff eo # 0.5 K/mm3 (0.0-0 .4) high Not Available [facility] [address] [place], [address], 10/06/2020 21:04:45 10/07/19 21 10/06/2020 CBC w/ auto diff baso # 0.1 K/mm3 (0.0-0 .1) Not Available [facility] [address] [place], [address], 10/06/2020 21:04:45 10/07/19 21 10/06/2020 CBC w/ auto diff abs. imm gran 0.0 K/mm3 Not Available [facility] [address] [place], [address], 10/06/2020 21:04:45 10/07/19 21 10/06/2020 CBC w/ auto diff neut 56.9 % (44-76 ) Not Available [facility] [address] [place], [address], 10/06/2020 21:04:45 10/07/19 21 10/06/2020 CBC w/ auto diff lymph 30.2 % (15-43 ) Not Available [facility] [address] [place], [address], 10/06/2020 21:04:45 10/07/19 21 10/06/2020 CBC w/ auto diff monocyte 7.2 % (4.5-1 0.5) Not Available [facility] [address] [place], [address], 10/06/2020 21:04:45 10/07/19 21 10/06/2020 CBC w/ auto diff eo 4.3 % (0-6) Not Available [facility] [address] [place], [address], 10/06/2020 21:04:45 10/07/19 21 10/06/2020 CBC w/ auto diff baso 1.1 % (0-2) Not Available [facility] [address] [place], [address], 10/06/2020 21:04:45 10/07/19 21 10/06/2020 CBC w/ auto diff imm gran 0.3 % Not Available [facility] [address] [place], [address], 10/06/2020 21:04:45 10/07/19 21 10/06/2020 bun (bloo d urea nitro gen), serum or plasm a BUN 9 mg/dL (6-20) Not Available [facility] [address] [place], [address], 10/06/2020 21:57:36 10/07/19 21 10/06/2020 creat inine , serum or plasm a creatinine 0.8 mg/dL (0.5-1 .0) Not Available [facility] [address] [place], [address], 10/06/2020 21:57:44 10/07/19 21 10/06/2020 creat inine [...] Not Available [facility] [address], [address], 10/06/2020 21:57:44 10/07/19 21 10/06/2020 creat inine [...] Not Available [facility] [address] [place], [address], 10/06/2020 21:57:44 10/07/19 21 10/06/2020 hepat ic funct ion panel , serum bilirubin,to tia <0.2 mg/dL (0-1.2 ) Not Available [facility] [address] [place], [address], 10/06/2020 21:57:48 10/07/19 21 10/06/2020 hepat ic funct ion panel , serum bilirubin, direct <0.2 mg/dL (0-0.3 ) Not Available [facility] [address] [place], [address], 10/06/2020 21:57:48 10/07/19 21 10/06/2020 hepat ic funct ion panel , serum indirect bilirubin mg/dL (0.0-0 .7) Total bilir ubin is less than the measu reabl e limit . There fore, indir ect bilir ubin canno t be calcu lated . Not Available [facility] [address] [place], [address], 10/06/2020 21:57:48 10/07/19 21 10/06/2020 hepat ic funct ion panel , serum albumin 3.9 gm/dL (3.4-4 .8) Not Available [facility] [address] [place], [address], 10/06/2020 21:57:48 10/07/19 21 10/06/2020 hepat ic funct ion panel , serum AST 20 U/L (0-32) Not Available [facility] [address] [place], [address], 10/06/2020 21:57:48 10/07/19 21 10/06/2020 hepat ic funct ion panel , serum ALT 16 U/L (0-33) Not Available [facility] [address] [place], [address], 10/06/2020 21:57:48 10/07/19 21 10/06/2020 hepat ic funct ion panel , serum alk phos 91 U/L (35-10 4) Not Available [facility] [address] [place], [address], 10/06/2020 21:57:48 10/07/19 21 10/06/2020 hepat ic funct ion panel , serum total protein 6.0 gm/dL (6.2-8 .2) low Not Available [facility] [address] [place], [address], 10/06/2020 21:57:48 10/07/19 21 10/06/2020 lipas e, serum or plasm a lipase 20 U/L (13-60 ) Not Available [facility] [address] [place], [address], 10/06/2020 21:57:51 10/07/19 21 10/06/2020 elect rolyt e panel , serum sodium 137 mmol/ L (133-1 45) Not Available [facility] [address] [place], [address], 10/06/2020 21:57:55 10/07/19 21 10/06/2020 elect rolyt e panel , serum potassium 4.4 mmol/ L (3.6-5 .2) Not Available [facility] [address] [place], [address], 10/06/2020 21:57:55 10/07/19 21 10/06/2020 elect rolyt e panel , serum chloride 102 mmol/ L (98-10 7) Not Available [facility] [address] [place], [address], 10/06/2020 21:57:55 10/07/19 21 10/06/2020 elect rolyt e panel , serum bicarbonate 22 mmol/ L (22-29 ) Not Available [facility] [address] [place], [address], 10/06/2020 21:57:55 10/07/19 21 10/06/2020 elect rolyt e panel , serum anion gap 13 (4-17) Not Available [facility] [address] [place], [address], 10/06/2020 21:57:55 Result Notes None recorded. Procedures Surgical History Date Name Laterality Status Provider Name and Address Organization Details Recorded Time cholecystectomy completed DEBBIE GAN NP [address] [place], [address], [place] [facility] 10/06/2020 13:55:28 Imaging Results None recorded. Procedure Notes None recorded. Medical Equipment None Reported. Allergies Allergen ID Allergen Name Allergen Category Reaction Reaction Severity Criticality Documentation Date Start Date Code Code System Note Provider Name and Address Organization Details Recorded Time [id number] morphine medicatio n abdominal pain Not available Not available 10/06/2020 7052 RxNorm DEBBIE GARCIA NP [address] [place], [address], [place] [facility] 13:52:48 Phenergan medicatio n Not available Not available Not available 10/06/2020 14006 8 RxNorm DEBBIE GARCIA, BEEF TAGGER [address] [place], [address], [place] [facility] 13:53:00 20180623 codeine medicatio n Not available Not available Not available 10/06/2020 2670 RxNorm DEBBIE GARCIA, BEEF TAGGER [address], [place], [address], [place] [facility] 13:53:07 [...] History Nothing Reported. Medical History Condition Response Asthma Y Depression Y Gynecological HistoryNo gynecological history recorded. Obstetrics History GPAL:G 0 P 0 0 0 0 Past Encounters Encounter ID Performer Location Encounter Start Date Encounter Closed Date Diagnosis/Indication Diagnosis SNOMED-CT Code Diagnosis ICD10 Code Diagnosis Note [id number] DEBBIE GARCIA NP [facility] [address] [place] [address] 10/06/2020 13:50:21 10/09/2020 17:34:09 Epigastric pain 10984090 R10.13 Health Concerns Section Related Observation LastModified by Organization Detai ls LastModified Time None Recorded Concern Status LastModified by Organization Details LastModified Time None Recorded Advance Directives Directive None Recorded Payers Encounter Date Sequence Insurance Name Policy Number Policy Flores Covered Member ID Flores Member ID Guarantor Name 10/06/2020 1 [facility] [id number] Gail Multani [id number] Gail Multani Notes Date Note Type Note [...] had this before. She was admitted to [facility] and treated for a stomach bacterial infection [...] today. DEBBIE GARCIA, AKHIL [address], [place], [address], [place] [facility] 10/06/2020 19:25:52 OBGyn Episode No OBEpisode recorded.
--- OUTSIDE RECORDS SUMMARY | 2024-05-29 14:49 | XMS_ITS | Clinical Summary ---
Author Organization [facility] ity Address [address] [place] [address] Care Team Providers Care Manufacturing Engineering Manager Name Role Phone Unavailable Primary Care [...]
--- NOTE | 2024-05-29 14:51 | PFT_ITS ---
Flows: FEV1: 56 % of predicted at 1.46 L FVC: 58 % of predicted at 1.87 L FEV1/FVC: 78 % Bronchodilator response: Absent Volumes: Total lung capacity: 75 % of predicted at 3.53 L Residual volume: 127 % of predicted at 1.59 L Slow vital capacity: 56 % of predicted at 1.94 L Expiratory reserve volume: 7 % of predicted at 0.07 L Diffusion capacity: Mildly decreased, corrects to normal after adjustment for alveolar ventilation. Impression: Moderate restrictive ventilatory defect with no bronchodilator response. Increased residual volume suggests air trapping. Decreased expiratory reserve volume suggests extrathoracic restriction likely secondary to abdominal obesity. Combination of restrictive ventilatory defect with decreased diffusion capacity suggests underlying pulmonary parenchymal disease. Clinical correlation is advised. MTDD
== END 2024-05-29 14:48 | disposition home or self-care (01) ==
LOC: HO.RESP 14:47
PROVIDERS: Visit Provider Nurse Practitioner Family
DX: J44.9 Chronic obstructive pulmonary disease, unspecified (principal)
CPT/HCPCS: 94010; 94640; 94727; 94729

== ENCOUNTER 2024-06-17 06:26 | Emergency (ER) | payer OTHER, SELFPAY ==
[2024-06-17 06:36] VITALS: BP 114/67; BP 118/88; PULSE 93; PULSE 97; RESP 18; TEMP 36.1; O2SAT 98; O2SAT 99; BMI 53.3
[2024-06-17 07:55] LABS: Basophils Absolute Auto 0.1 X10*3/uL (0.0-0.2); Basophils Percent Auto 0.8 % (0-2); Eosinophils Absolute Auto 0.5 X10*3/uL (0.0-0.4); Eosinophils Percent Auto 6.4 % (0-4); Hematocrit 35.7 % (37.0-47.0); Hemoglobin 11.2 g/dl (12.0-16.0); Imm Gran Abs Auto 0.04 X10*3/uL (0.00-0.03); Imm Gran Pct Auto 0.5 % (0.0-0.4); Lymphocytes Absolute Auto 1.9 X10*3/uL (1.2-4.9); Lymphocytes Percent Auto 22.4 % (20-40); MANUAL DIFF FLAG SCAN; Mean Corpuscular HGB Conc 31.4 g/dl (31.0-35.0); Mean Corpuscular Hemoglobin 25.2 pg (27.0-33.0); Mean Corpuscular Volume 80.2 fL (80.0-98.0); Mean Platelet Volume 10.8 fL (9.4-12.3); Monocytes Absolute Auto 0.6 X10*3/uL (0.1-1.2); Monocytes Percent Auto 7.1 % (2-11); Neutrophils Absolute Auto 5.4 x10*3/uL (2.0-8.3); Neutrophils Percent Auto 62.8 % (45-73); PLT CLUMP 1; Red Blood Count 4.45 X10*6/uL (4.20-5.50); SCAN SMEAR FLAG 1
--- OUTSIDE RECORDS SUMMARY | 2024-06-17 07:56 | XMS_ITS | Clinical Summary ---
[facility] [address] [place] [address] Care Team Providers Care Heel Cover Splitter Name Role Phone Unavailable Primary Care Provider Unavailabl e Social History Tobacco Use Types Packs/Day Years Used Date Smoking Tobacco: Never Assessed Comments Unknown Sex and Gender Information Value Date Recorded Sex Assigned at Not on file Legal Sex Female 3:33 PM EST Gender Identity Not on file Sexual Orientation [...] patient's age to complete this topic Meningococcal B Vacine Aged Out No lo nger eligible based on patient's age to complete [...]
[2024-06-17 08:13] LABS: Alanine Aminotransferase 29 U/L (0-31); Albumin Level 3.5 g/dL (3.5-5.0); Anion Gap 15 (12-20); Aspartate Amino Transferase 24 U/L (5-31); Beta-Hydroxybutyrate 0.06 mmol/L (0.02-0.27); Bilirubin Total 0.2 mg/dL (0.0-1.0); Blood Urea Nitrogen 16 mg/dL (9-16); Calcium 9.1 mg/dL (8.4-10.2); Carbon Dioxide 21 mmol/L (22-29); Chloride 102 mmol/L (96-108); Creatinine Clr Calc Pharmacy 123.9; Estimated Glomerular Filt Rate > 60; Potassium 4.5 mmol/L (3.3-5.1); Sodium 133 mmol/L (135-145); Total Protein 7.2 g/dL (6.5-8.0)
[2024-06-17 08:14] LABS: Alkaline Phosphatase 216 U/L (39-117)
[2024-06-17 08:16] LABS: Platelet Count 277 X10*3/uL (160-400); White Blood Count 8.5 X10*3/uL (4.8-10.8)
[2024-06-17 08:17] LABS: Glucose Random 419 mg/dL (60-115); SLIDE REVIEW VERIFIED
[2024-06-17 08:30] LABS: Influenza A PCR NEGATIVE (Negative); Influenza B PCR NEGATIVE (Negative); Resp Syncy Virus RNA Qual PCR NEGATIVE (Negative); SARS COV2 PCR INHOUSE NEGATIVE (Negative)
--- NOTE | 2024-06-17 09:16 | ED.GENADULT ---
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 Patient states that her metformin was recently stopped because her hemoglobin A1C had improved. Patient states that she saw her doctor and requested she have a surgery for weight loss. Patient states that she was then started on trulicity to help with her weight loss but she feels as though she has only lost 1 pound. Patient states that she ran out of the trulicity and needs to be seen by her PCP before they'll refill it. Patient states that she wants something other than trulicity to lose weight better and does not want to discuss her diet. Patient denies any dizziness, lightheadedness, abdominal pain, nausea, vomiting, fever, chills, blurry vision, double vision, loss of vision, chest pain, difficulty breathing, shortness of breath, back pain, night sweats, pain with urination, increased urinary frequency, increased urinary urgency, blood in her urine or stool, syncope or a near syncopal episode, recent trauma or falls, bowel incontinence, bladder incontinence, or any other complaints at this time. Relieving factors: none Exacerbating factors: none Associated symptoms: denies other symptoms Related Data Home Medications ?Medication ?Instructions ?Recorded ?Confirmed albuterol sulfate 2.5 mg/3 mL 2.5 mg inhalation Q6H PRN wheezing 11/16/22 09/13/23 (0.083 %) solution for nebulization albuterol sulfate 90 mcg/actuation 2 puff inhalation Q6H 11/16/22 09/13/23 aerosol inhaler (Ventolin HFA) cyanocobalamin (vitamin B-12) 1,000 mcg sublingual DAILY 11/16/22 09/13/23 1,000 mcg sublingual tablet dicyclomine 10 mg capsule 20 mg PO Q8H PRN Abdominal Pain 11/16/22 09/13/23 gabapentin 100 mg capsule 100 mg PO BID PRN Pain (Scale 11/16/22 09/13/23 Score 4-6) mirtazapine 15 mg tablet 22.5 mg PO BEDTIME 11/16/22 09/13/23 montelukast 10 mg tablet 10 mg PO BEDTIME 11/16/22 09/13/23 pantoprazole 40 mg tablet,delayed 40 mg PO BID@0630,1630 11/16/22 09/13/23 release polyethylene glycol 3350 17 gram 17 g PO DAILY PRN Constipation 11/16/22 09/13/23 oral powder packet prazosin 5 mg capsule (Minipress) 5 mg PO BEDTIME 11/16/22 09/13/23 sumatriptan succinate 25 mg tablet 25 mg PO DAILY PRN Migraine 11/16/22 09/13/23 Headache duloxetine 20 mg capsule,delayed 20 mg PO BID 04/23/23 09/13/23 release metformin 750 mg tablet,extended 750 mg PO BID 06/10/23 09/13/23 release 24 hr benzonatate 100 mg capsule 100 mg PO TID 01/09/24 dulaglutide 0.75 mg/0.5 mL mg subcut QWEEK 01/09/24 subcutaneous pen injector (Trulicity) gabapentin 400 mg capsule 800 mg PO BEDTIME 01/09/24 prazosin 2 mg capsule 2 mg PO BEDTIME 01/09/24 Previous Rx's ?Medication ?Instructions ?Recorded blood sugar diagnostic (FreeStyle #100 ea 12/17/22 Lite Strips) blood-glucose meter (FreeStyle #1 ea 12/17/22 Lite Meter kit) lancets 28 gauge (FreeStyle #100 ea 12/17/22 Lancets) levofloxacin 750 mg tablet 750 mg PO DAILY #7 tabs 01/24/24 cetirizine 10 mg tablet (Zyrtec) 10 mg PO DAILY PRN allergy 04/20/24 symptoms #30 tabs fluticasone fur. 200 mcg-umeclid 1 inh inhalation DAILY #60 ea 04/20/24 62.5 mcg-vilant 25 mcg inhalat.powder (Trelegy Ellipta) prednisone 10 mg tablet 10 mg PO DIRECTED #30 tabs 05/18/24 dulaglutide 0.75 mg/0.5 mL 0.75 mg (0.5 mL) subcut QWEEK #2 mL 06/17/24 subcutaneous pen injector ([facility]) Allergies Allergy/AdvReac Type Severity Reaction Status Date / Time promethazine [From PHENERGAN] Allergy Unknown ITCHING Verified 06/17/24 06:39 egg Allergy Hives Verified 06/17/24 06:39 codeine [CODEINE] AdvReac Unknown STOMACH Verified 06/17/24 06:39 UPSET morphine [MORPHINE] AdvReac Unknown MORE PAIN Verified 06/17/24 06:39 Review of Systems Constitutional: Constitutional: Reports no additional constitutional complaints, Denies chills, Denies fever(s) and Denies night sweats Eyes: Eyes: Reports no additional eye complaints, Denies blurry vision, Denies change in vision, Denies diplopia, Denies eye discharge, Denies loss of vision and Denies eye pain ENT: Denies dizziness Cardiovascular: Cardiovascular: Reports no additional cardiovascular complaints, Denies chest pain, Denies lightheadedness, Denies Loss of Consciousness and Denies dyspnea Respiratory: Respiratory: Reports no additional respiratory complaints and Denies dyspnea Comments: on chronic oxygenation Gastrointestinal: Gastrointestinal: Reports no additional gastrointestinal complaints, Denies abdominal pain, Denies melena, Denies hematochezia, Denies change in bowel habits and Denies change in stool character Genitourinary: Genitourinary: Denies hematuria, Denies urinary frequency, Denies dysuria, Denies urinary incontinence, Denies urinary hesitancy and Denies urinary urgency Musculoskeletal: Musculoskeletal: Reports no additional musculoskeletal complaints, Denies numbness and Denies tingling Neurologic: Denies dizziness, Denies loss of vision, Denies numbness and Denies tingling Psychiatric: Psychiatric: Reports no additional psychiatric complaints Endocrine: Endocrine: Reports no additional endocrine complaints Hematologic/Lymphatic: Hematologic/Lymphatic: Reports no additional hematologic/lymphatic complaints Allergic/Immunologic: Allergic/Immunologic: Reports no additional allergic/immunologic complaints PMFSH Past Medical History Medical History (Updated 06/17/24 @ 09:28 by MELVI Kelly) Sinus infection Acute and chronic respiratory failure with hypoxia Acute exacerbation of chronic obstructive airways disease Abdominal pain Asthma with exacerbation Lower extremity edema Pneumonia Sepsis Acute exacerbation of COPD with asthma Acute respiratory failure with hypoxia Asthmaticus, status Chronic lung disease ILD (interstitial lung disease) Panic attack as reaction to stress Recurrent major depression Generalized anxiety disorder Morbid obesity Disc herniation H. pylori infection Depression Migraine Asthma Surgical History History of Family History Family History Mother Diabetes High cholesterol Social History Social History Household Members: None Housing: Apartment Housing Other:: 2nd fl Do you presently have visiting nurse or other home services: Yes (visiting nurse) Alcohol intake: never Comment: Pt refusing bed/chair alarm- steady on feet, 1:1 Sitter Patient Tobacco Use Status: Former Tobacco user Tobacco use type: Cigarette Cigarette Packs Per Day: 4 e-Cigarette/Vaping Use: Former Use Second Hand Smoke Exposure: No Advance Directives: Yes Advance Directives on File: Yes Advance Directives Date on File: 05/12/22 Do you have a plan to hurt others: No Plan service: No Current occupational status: unemployed Physical Exam ED Vital Signs: Vital Signs - 24 hr 06/17/24 06:36 06/17/24 09:20 06/17/24 09:35 Temperature 96.9 F 97.0 F 97.0 F Pulse Rate 97 92 92 Respiratory Rate 18 20 20 Blood Pressure 114/67 130/68 130/68 Pulse Oximetry 99 99 99 Oxygen Delivery Method Nasal Cannula Nasal Cannula Nasal Cannula BMI result Body Mass Index 53.3 Const General: cooperative, no acute distress, alert and awake Nutritional Appearance: well nourished Orientation/consciousness: patient oriented x3 Limitations: no limitations HENMT Head: Yes normal to inspection and Yes atraumatic Ears: hearing grossly normal bilaterally and external ears normal General nose exam: Normal external nose present, no nasal discharge noted and no epistaxis Face and sinus: Yes normal facial exam, No abrasion and No laceration Mouth: Normal oral and palatal mucosa present, no drooling and no muffled voice Eyes General: appearance normal, both eyes and all related structures Periorbital: periorbital findings normal Eyelids: Yes eyelids normal Conjunctivae: conjunctivae normal Pupils: Equal, round and reactive pupils present EOM: EOMs intact bilaterally Neck Neck: Yes normal visual inspection, Yes full ROM and Yes no lymphadenopathy Chest Chest palpation & inspection: normal inspection of the chest Resp Other: patient on chronic oxygenation via NC Effort & Inspection: normal respiratory effort and able to speak in complete sentences GI Inspection: Yes normal to inspection Neuro General: patient oriented x3, moves all extremities and CN's II-XI intact bilaterally Cranial nerves: Yes Equal, round and reactive pupils present Cognition (Neuro): normal cognition Extrem General: Yes normal to inspection, Yes full ROM and Yes capillary refill normal Psych Appearance: grossly normal Mental Status: mental status grossly normal Affect: normal affect Attitude: cooperative Thought process: Normal thought process present Thought content: Normal thought content present Insight: Good insight present (Psych) Medical Decision Making Medical Decision Making MDM Narrative: Patient is a 43 year old assigned female at with a history of asthma-COPD overlap on chronic oxygen via NC, MDD, and DM presenting to the emergency department today with concerns about her blood sugar. Patient's physical exam was as noted in the physical exam portion of this note and consistent with the patient's baseline. Patient's blood work showed a glucose of 419 but were otherwise unremarkable. Patient did not have an anion gap and had a normal beta-hydroxy. I explained my physical exam findings as well as all test results to the patient. I answered all questions asked by the patient. I had an extensive conversation with the patient regarding the outpatient management of her weight and her blood sugars. I explained to the patient that I am willing to write a refill for her trulicity but she needs to be certain she can pick it up today, start back on it today, and follow up with her primary care provider. Patient verbalized understanding and agreement stating that she will restart the trulicity and follow up with her PCP. I stressed the importance of the patient taking her medication as directed (either prescribed or as the over the counter packaging recommends). I stressed the importance of the patient following up with her primary care provider. I stressed the importance of the patient returning to the emergency department immediately if her symptoms were to worsen or if she were to develop any dizziness, shortness of breath, difficulty breathing, chest pain, blurry vision, loss of vision, nausea, vomiting, abdominal pain, fever, chills, back pain, or any other complaints. Patient verbalized agreement and understanding with this treatment plan and discharge. Differential Diagnosis Differential Diagnoses: The differential diagnosis associated with the presentation includes Medication non compliance Diabetes Admission/Observation Consideration of admission/observation: Escalation of care including admission/observation considered Patient would have been admitted to the hospital had her work up had any findings where hospital admission was appropriate and her clinical presentation warranted hospital admission. Lab Data [facility] Lab Attestation statement: I reviewed the patient's lab results. My interpretation of these results are in the MDM Rationale portion of this note. 06/17/24 07:46 06/17/24 07:46 Labs: Lab Results 06/17/24 Range/Units 07:46 WBC 8.5 (4.8-10.8) X10*3/uL RBC 4.45 (4.20-5.50) X10*6/uL Hgb 11.2 L (12.0-16.0) g/dl Hct 35.7 L (37.0-47.0) % MCV 80.2 (80.0-98.0) fL MCH 25.2 L (27.0-33.0) pg MCHC 31.4 (31.0-35.0) g/dl RDW 17.0 H (11.0-16.0) % Plt Count 277 (160-400) X10*3/uL MPV 10.8 (9.4-12.3) fL Immature Gran % (Auto) 0.5 H (0.0-0.4) % Neut % (Auto) 62.8 (45-73) % Lymph % (Auto) 22.4 (20-40) % Bennett % (Auto) 7.1 (2-11) % Eos % (Auto) 6.4 H (0-4) % Baso % (Auto) 0.8 (0-2) % Lymph # (Auto) 1.9 (1.2-4.9) X10*3/uL Bennett # (Auto) 0.6 (0.1-1.2) X10*3/uL Eos # (Auto) 0.5 H (0.0-0.4) X10*3/uL Baso # (Auto) 0.1 (0.0-0.2) X10*3/uL Abs Immat Gran (auto) 0.04 H (0.00-0.03) X10*3/uL Absolute Neuts (auto) 5.4 (2.0-8.3) x10*3/uL Absolute Nucleated RBC 0.000 (0.0-0.012) X10*3/uL Nucleated RBC % (auto) 0.0 (0.0-0.2) /100WBC Smear Tech's Comments VERIFIED Sodium 133 L (135-145) mmol/L Potassium 4.5 D (3.3-5.1) mmol/L Chloride 102 (96-108) mmol/L Carbon Dioxide 21 L (22-29) mmol/L Anion Gap 15 (12-20) BUN 16 (9-16) mg/dL Creatinine 0.73 (0.5-1.4) mg/dL Estim Creat Clear Calc 123.9 Estimated GFR > 60 Random Glucose 419 H* (60-115) mg/dL Calcium 9.1 (8.4-10.2) mg/dL Magnesium 2.0 (1.6-2.6) mg/dL Total Bilirubin 0.2 (0.0-1.0) mg/dL AST 24 (5-31) U/L ALT 29 (0-31) U/L Alkaline Phosphatase 216 H (39-117) U/L Total Protein 7.2 (6.5-8.0) g/dL Albumin 3.5 (3.5-5.0) g/dL Beta-Hydroxybutyrate 0.06 (0.02-0.27) mmol/L Influenza Type A (PCR) NEGATIVE (Negative) Influenza Type B (PCR) NEGATIVE (Negative) RSV RNA Qual (PCR) NEGATIVE (Negative) SARS-CoV-2 RNA (RT-PCR) NEGATIVE (Negative) Independent Historian Clinical information obtained from an independent historian. History obtained from or confirmed by: EMS (EMS provided additional history and confirmed the history provided by the patient.) Chronic Conditions Patient?s care impacted by: Diabetes Discharge Plan Discharge Clinical Impression: Diabetes Patient Disposition: Home, Self-Care Instructions: Diabetes and Nutrition (ED), Diabetes and Exercise (ED) Additional Instructions: Follow up with your primary care provider. Return to the emergency department immediately if your symptoms worsen or if you develop any dizziness, shortness of breath, difficulty breathing, chest pain, blurry vision, loss of vision, nausea, vomiting, abdominal pain, fever, chills, back pain, or any other complaints. Julius?seguimiento?con josue m?dico de atenci?n primaria. Acuda inmediatamente al servicio de urgencias si librado s?ntomas empeoran o si presenta falta de aliento, dificultad para respirar, dolor tor?cico, mareos, aturdimiento, dolor de espalda, dolor abdominal, fiebre, escalofr?os o cualquier otro s?ntoma. Prescriptions: New Trulicity 0.75 mg/0.5 mL pen injector 0.75 mg subcut QWEEK Qty: 2 0RF No Action (DME) FreeStyle Lite Strips Strip Qty: 100 0RF Rx Instructions: Test four times a day or as directed. (DME) blood-glucose meter [FreeStyle Lite Meter] Kit Qty: 1 0RF Rx Instructions: As Directed (DME) lancets [FreeStyle Lancets] 28 gauge misc Qty: 100 0RF Rx Instructions: Test four times a day or as directed. duloxetine 20 mg capsule,delayed release(DR/EC) 20 mg PO BID metformin 750 mg tablet extended release 24 hr 750 mg PO BID gabapentin 400 mg capsule 800 mg PO BEDTIME benzonatate 100 mg capsule 100 mg PO TID prazosin 2 mg capsule 2 mg PO BEDTIME Trulicity 0.75 mg/0.5 mL pen injector subcut QWEEK albuterol sulfate 2.5 mg /3 mL (0.083 %) solution for nebulization 2.5 mg inhalation Q6H PRN (Reason: wheezing) sumatriptan succinate 25 mg tablet 25 mg PO DAILY PRN (Reason: Migraine Headache) Rx Instructions: MRX1 after 2 hours prazosin [Minipress] 5 mg capsule 5 mg PO BEDTIME Rx Instructions: TAKE WITH 2MG pantoprazole 40 mg tablet,delayed release (DR/EC) 40 mg PO BID@0630,1630 montelukast 10 mg tablet 10 mg PO BEDTIME cyanocobalamin (vitamin B-12) 1,000 mcg tablet, sublingual 1,000 mcg sublingual DAILY mirtazapine 15 mg tablet 22.5 mg PO BEDTIME gabapentin 100 mg capsule 100 mg PO BID PRN (Reason: Pain (Scale Score 4-6)) albuterol sulfate [Ventolin HFA] 90 mcg/actuation HFA aerosol inhaler 2 puff inhalation Q6H dicyclomine 10 mg capsule 20 mg PO Q8H PRN (Reason: Abdominal Pain) polyethylene glycol 3350 17 gram powder in packet 17 g PO DAILY PRN (Reason: Constipation) Trelegy Ellipta 200-62.5-25 mcg blister with device 1 inh inhalation DAILY Qty: 60 6RF cetirizine [Zyrtec] 10 mg tablet 10 mg PO DAILY PRN (Reason: allergy symptoms) Qty: 30 3RF levofloxacin 750 mg tablet 750 mg PO DAILY Qty: 7 0RF prednisone 10 mg tablet 10 mg PO DIRECTED Qty: 30 0RF Rx Instructions: see taper instructions; 40 mg Daily x3 days, 30 mg daily x3 days, 20 mg daily x3 days, 10 mg daily x3 days Interventions: ED Discharge Assessment Last Done: 06/17/24 09:35 Discharge Date/Time: 06/17/24 09:36 Print Language: Croatian
[2024-06-17 09:20] VITALS: BP 130/68; PULSE 92; RESP 20; TEMP 36.1; O2SAT 99
[2024-06-17 09:35] VITALS: BP 130/68; PULSE 92; RESP 20; TEMP 36.1; O2SAT 99
== END 2024-06-17 09:36 | disposition home or self-care (01) ==
PROVIDERS: Physician Assistant Medical; Emergency Provider Emergency Medicine
DX: E11.65 Type 2 diabetes mellitus with hyperglycemia (principal); J44.9 Chronic obstructive pulmonary disease, unspecified; Z99.81 Dependence on supplemental oxygen; Z03.818 Encounter for observation for suspected exposure to other biological agents ruled out; Z79.899 Other long term (current) drug therapy; Z87.891 Personal history of nicotine dependence
CPT/HCPCS: 0241U; 36415; 80053; 82010; 83735; 85025; 99282; 99283

== ENCOUNTER 2024-06-27 13:56 | Outpatient (AMB) | payer OTHER, SELFPAY ==
--- NOTE | 2024-06-27 13:50 | A.OFFVIS_ITS ---
Vital Signs 06/27/24 13:57 Height 5 ft 1 in Weight 279 lb BMI 52.7 BP 138/78 Blood Pressure Location Rt radial Position Sitting Pulse 123 H Pulse Source Pulse Oximeter Pulse Oximetry (%) 91 L Oxygen Delivery Method Nasal Cannula Oxygen Flow Rate 2 Intake Visit Reasons: Dyspnea Neonatal Pediatric Nurse Required: Yes Neonatal Pediatric Nurse Name: Melba #[id number] Blueprint Clerk: Blueprint Clerk offered & declined Accompanied by: Self / Same As Patient Allergies promethazine [From PHENERGAN] Allergy (Unknown, Verified 06/27/24 14:02) ITCHING egg Allergy (Verified 06/27/24 14:02) Hives codeine [CODEINE] Adverse Reaction (Unknown, Verified 06/27/24 14:02) STOMACH UPSET morphine [MORPHINE] Adverse Reaction (Unknown, Verified 06/27/24 14:02) MORE PAIN Medication List - Last Reconciled 06/27/24 by Janel Alvarez LPN albuterol sulfate 2.5 mg inhalation Q6H PRN albuterol sulfate 90 mcg/actuation (Ventolin HFA) 2 puffs inhalation Q6H benzonatate 100 mg PO TID blood sugar diagnostic (FreeStyle Lite Strips) Test four times a day or as directed. blood-glucose meter (FreeStyle Lite Meter kit) As Directed cetirizine (Zyrtec) 10 mg PO DAILY PRN cyanocobalamin (vitamin B-12) 1,000 mcg sublingual DAILY dicyclomine 20 mg PO Q8H PRN dulaglutide (Trulicity) 0.75 mg (0.5 mL) subcut QWEEK dulaglutide (Trulicity) mg subcut QWEEK duloxetine 20 mg PO BID dupilumab (Dupixent) 600 mg (4 mL) subcut ONCE dupilumab (Dupixent) 300 mg (2 mL) subcut Q2W herxcuvtbzd-qcjuoylmy-uwwttrxd 200-62.5-25 mcg (Trelegy Ellipta) 1 inh inhalation DAILY gabapentin 800 mg PO BEDTIME gabapentin 100 mg PO BID PRN lancets (FreeStyle Lancets) Test four times a day or as directed. levofloxacin 750 mg PO DAILY metformin ER 750 mg PO BID mirtazapine 22.5 mg PO BEDTIME montelukast 10 mg PO BEDTIME pantoprazole 40 mg PO BID@0630,1630 polyethylene glycol 3350 17 grams PO DAILY PRN prazosin (Minipress) 5 mg PO BEDTIME prazosin 2 mg PO BEDTIME prednisone 10 mg PO DIRECTED sumatriptan succinate 25 mg PO DAILY PRN HPI HPI Dyspnea: Details: Gail is a pleasant 43-year-old female, former smoker, quit 6-12 months ago with approximately 90 pack-year history, with underlying severe asthma on 2L continuous supplemental oxygen and NOC, chronic sinusitis and h/o acute hypoxic respiratory failure secondary to MSSA pneumonia superinfection of prior COVID pneumonia resulting in acute hypoxic respiratory failure requiring intubation and ventilatory support. Hospital course complicated by development of acute co r pulmonale in 2021. She continues to report suboptimal control of respiratory symptoms on Trelegy 200 mcg and an order was placed to initiate Dupixent as patient with multiple courses of OCS as well as persistent elevations in eosinophils. Medication is available at pharmacy, patient needs to set up nurse education appt to obtain first dose. Phone number was given today to reach out. She denies any visits to urgent care or hospitalizations since last visit related to respiratory distress. Today she presents to review PFT results. [facility] Medical History (Updated 06/27/24 @ 14:23 by Sapna Luz NP) Morbid obesity Sinus infection Acute and chronic respiratory failure with hypoxia Acute exacerbation of chronic obstructive airways disease Abdominal pain Asthma with exacerbation Lower extremity edema Pneumonia Sepsis Acute exacerbation of COPD with asthma Acute respiratory failure with hypoxia Asthmaticus, status Chronic lung disease ILD (interstitial lung disease) Panic attack as reaction to stress Recurrent major depression Generalized anxiety disorder Disc herniation H. pylori infection Depression Migraine Asthma Surgical History History of Family History Mother Diabetes High cholesterol Social History Household Members: None Housing: Apartment Housing Other:: [address] Do you presently have visiting nurse or other home services: Yes (visiting nurse) Alcohol intake: never Comment: Pt refusing bed/chair alarm- steady on feet, 1:1 Sitter Patient Tobacco Use Status: Former Tobacco user Tobacco use type: Cigarette Cigarette Packs Per Day: 4 e-Cigarette/Vaping Use: Former Use Second Hand Smoke Exposure: No Advance Directives Date on File: 05/12/22 service: No Current occupational status: unemployed Review of Systems Const Denies chills, Denies excessive sweating, Denies fever(s) and Denies night sweats Eyes Denies dry eyes, Denies irritation and Denies itchy eyes ENT Reports Normal hearing present and Reports nasal congestion Card Denies chest pain, Denies chest pain at rest, Denies chest pain with activity, Denies claudication, Reports dyspnea on exertion, Denies orthopnea and Denies paroxysmal nocturnal dyspnea Resp Reports chest congestion, Reports cough, Denies excessive phlegm production, Denies pain on inspiration, Denies pain with cough, Reports dyspnea on exertion, Denies stridor and Reports wheezing Musc Denies myalgias Neuro Reports Normal hearing present Endo Denies excessive sweating Mark/Lymph Denies lymphadenopathy Aller/Immun Denies itchy eyes, Denies seasonal rhinorrhea and Reports wheezing Physical Exam Vital Signs: Last Vital Signs Pulse 123 H 06/27/24 13:57 BP 138/78 06/27/24 13:57 Pulse Ox 91 L 06/27/24 13:57 Oxygen Delivery Method Nasal Cannula 06/27/24 13:57 Oxygen Flow Rate 2 06/27/24 13:57 BMI result Body Mass Index 52.7 Const General: cooperative, healthy appearing, comfortable, no acute distress, well developed and alert Nutritional Appearance: obese Orientation/consciousness: patient oriented x3 Limitations: no limitations HEENT Head: Yes normal to inspection, Yes normocephalic and Yes atraumatic Ears: hearing grossly normal bilaterally and external ears normal Eyes General: appearance normal, both eyes and all related structures Eyelids: Yes eyelids normal Sclerae: sclerae normal EOM: EOMs intact bilaterally Neck Neck: Yes normal visual inspection and Yes no lymphadenopathy Lymphatic: no lymphadenopathy noted Chest Chest palpation & inspection: normal inspection of the chest Resp Effort & Inspection: normal respiratory effort, able to speak in complete sentences, no audible wheezes, no cough, no stridor, not tachypneic, no tripod positioning and no use of accessory muscles Auscultation: clear to auscultation bilaterally Cardio Jugular venous distension: no JVD Rate: regular rate Rhythm: regular rhythm Skin Other: warm, dry General skin exam: no rashes or lesions noted Neuro General: patient oriented x3 Cranial nerves: Yes Normal hearing present Cognition (Neuro): normal cognition Gait exam (Neuro): Normal gait present Extrem General: Yes normal to inspection, Yes capillary refill normal, Yes no clubbing, cyanosis or edema and Yes no pedal edema Psych Appearance: grossly normal and well kempt Speech and movement: Normal speech and movement present and Clear speech present Affect: normal affect Attitude: cooperative Thought process: Normal thought process present Thought content: Normal thought content present Insight: Good insight present (Psych) Judgement: Good judgement present (Psych) Assessment & Plan Assessment & Plan (1) Severe asthma: Code(s): J45.909 - Unspecified asthma, uncomplicated Category: Medical (2) Nocturnal hypoxemia: Code(s): G47.34 - Idiopathic sleep related nonobstructive alveolar hypoventilation Category: Medical (3) Dyspnea: Code(s): R06.00 - Dyspnea, unspecified Category: Medical (4) Morbid obesity: Code(s): E66.01 - Morbid (severe) obesity due to excess calories Category: Medical Plan Reviewed PFT which revealed moderate restrictive ventilatory defect with no bronchodilator response. Increased residual volume suggests air trapping. Decreased expiratory reserve volume suggests extrathoracic restriction likely secondary to abdominal obesity. Importance of weight loss discussed. The combination of restrictive ventilatory defect with decreased diffusion capacity suggests underlying pulmonary parenchymal disease. Prior chest CT from 09/2023 revealed mild emphysematous changes with scattered pulmonary nodules <4 mm. Will repeat chest CT 09/2024 to ensure stability of pulmonary nodules. Awaiting patient to receive first dose of Dupixent. All questions were answered and patient in agreement of plan. Will follow up 3 months or sooner if needed. Orders: Orders CT chest wo IV con 3 Months R91.8 - Other nonspecific abnormal finding of lung field Coding Level of Care Code Est Pt Level 4 (10562) Diagnoses Severe asthma J45.909 Nocturnal hypoxemia G47.34 Dyspnea R06.00 Morbid obesity E66.01
[2024-06-27 13:57] VITALS: BP 138/78; PULSE 123; O2SAT 91; BMI 52.7
--- OUTSIDE RECORDS SUMMARY | 2024-06-27 16:44 | XMS_ITS | Clinical Summary ---
Author Organization [facility] ity Address [address] [place] [address] Care Team Providers Care Nuclear Operator Name Role Phone Unavailable Primary Care Provider [...]
== END 2024-06-27 14:21 | disposition home or self-care (01) ==
PROVIDERS: PCP Family Medicine; Visit Provider Nurse Practitioner Family
DX: J45.909 Unspecified asthma, uncomplicated (principal); G47.34 Idiopathic sleep related nonobstructive alveolar hypoventilation; R06.00 Dyspnea, unspecified; E66.01 Morbid (severe) obesity due to excess calories
CPT/HCPCS: 99214

== ENCOUNTER → 2024-06-27 13:56 | Outpatient (BNVA) | payer OTHER, SELFPAY | PROVIDERS: PCP Family Medicine; Visit Provider Nurse Practitioner Family | DX: J45.909 Unspecified asthma, uncomplicated (principal); E66.01 Morbid (severe) obesity due to excess calories; G47.34 Idiopathic sleep related nonobstructive alveolar hypoventilation; R06.00 Dyspnea, unspecified; R91.8 Other nonspecific abnormal finding of lung field; Z99.81 Dependence on supplemental oxygen; Z87.891 Personal history of nicotine dependence; Z68.43 Body mass index [BMI] 50.0-59.9, adult | CPT/HCPCS: 99212 ==

== ENCOUNTER 2024-07-09 09:29 | Outpatient (AMB) | payer OTHER, SELFPAY ==
--- NOTE | 2024-07-09 09:46 | A.OFFVIS_ITS ---
Vital Signs 07/09/24 09:47 Height 5 ft 1 in Weight 277 lb 12.519 oz BMI 52.5 Pulse 100 Pulse Source Pulse Oximeter Pulse Oximetry (%) 96 Oxygen Delivery Method Nasal Cannula Oxygen Flow Rate 2 Intake Visit Reasons: Dupixent teaching Allergies promethazine [From PHENERGAN] Allergy (Unknown, Verified 07/09/24 09:47) ITCHING egg Allergy (Verified 07/09/24 09:47) Hives codeine [CODEINE] Adverse Reaction (Unknown, Verified 07/09/24 09:47) STOMACH UPSET morphine [MORPHINE] Adverse Reaction (Unknown, Verified 07/09/24 09:47) MORE PAIN Medication List - Last Reconciled 07/09/24 by Ebonie Jacobs LPN albuterol sulfate 2.5 mg inhalation Q6H PRN albuterol sulfate 90 mcg/actuation (Ventolin HFA) 2 puffs inhalation Q6H benzonatate 100 mg PO TID blood sugar diagnostic (FreeStyle Lite Strips) Test four times a day or as directed. blood-glucose meter (FreeStyle Lite Meter kit) As Directed cetirizine (Zyrtec) 10 mg PO DAILY PRN cyanocobalamin (vitamin B-12) 1,000 mcg sublingual DAILY dicyclomine 20 mg PO Q8H PRN dulaglutide (Trulicity) 0.75 mg (0.5 mL) subcut QWEEK dulaglutide (Trulicity) mg subcut QWEEK duloxetine 20 mg PO BID dupilumab (Dupixent) 600 mg (4 mL) subcut ONCE dupilumab (Dupixent) 300 mg (2 mL) subcut Q2W dfhgbgeyytb-rwjqsqjew-vyejogeb 200-62.5-25 mcg (Trelegy Ellipta) 1 inh inhalation DAILY gabapentin 800 mg PO BEDTIME gabapentin 100 mg PO BID PRN lancets (FreeStyle Lancets) Test four times a day or as directed. levofloxacin 750 mg PO DAILY metformin ER 750 mg PO BID mirtazapine 22.5 mg PO BEDTIME montelukast 10 mg PO BEDTIME pantoprazole 40 mg PO BID@0630,1630 polyethylene glycol 3350 17 grams PO DAILY PRN prazosin (Minipress) 5 mg PO BEDTIME prazosin 2 mg PO BEDTIME prednisone 10 mg PO DIRECTED sumatriptan succinate 25 mg PO DAILY PRN HPI Comments Details: Gail is here for a Dupixent teach she was educated on hand washing, injection preparation, administration, and disposal.?Gail was able to return demonstrate proper technique for hand washing, injection preparation, administration and disposal of needle and states she has no questions at this time. Medication Dupixent 300mg/2mL pre-filled pen (patient?s own meds) Loading dose of 600mg given by the patient in 2 SQ injections; injection #1 R abdomen ;? injection #2 L abdomen? Lot# [id number] expires 03/24/2026. Patient aware her next injection is in 15 days. Nurse visit only.? [facility] Medical History (Updated 06/27/24 @ 14:23 by Sapna Luz NP) Morbid obesity Sinus infection Acute and chronic respiratory failure with hypoxia Acute exacerbation of chronic obstructive airways disease Abdominal pain Asthma with exacerbation Lower extremity edema Pneumonia Sepsis Acute exacerbation of COPD with asthma Acute respiratory failure with hypoxia Asthmaticus, status Chronic lung disease ILD (interstitial lung disease) Panic attack as reaction to stress Recurrent major depression Generalized anxiety disorder Disc herniation H. pylori infection Depression Migraine Asthma Surgical History History of Family History Mother Diabetes High cholesterol Social History Household Members: None Housing: Apartment Housing Other:: [facility] Do you presently have visiting nurse or other home services: Yes (visiting nurse) Alcohol intake: never Comment: Pt refusing bed/chair alarm- steady on feet, 1:1 Sitter Patient Tobacco Use Status: Former Tobacco user Tobacco use type: Cigarette Cigarette Packs Per Day: 4 e-Cigarette/Vaping Use: Former Use Second Hand Smoke Exposure: No Advance Directives Date on File: 05/12/22 service: No Current occupational status: unemployed Physical Exam Vital Signs: Last Vital Signs Pulse 100 07/09/24 09:47 Pulse Ox 96 07/09/24 09:47 Oxygen Delivery Method Nasal Cannula 07/09/24 09:47 Oxygen Flow Rate 2 07/09/24 09:47 BMI result Body Mass Index 52.5 Assessment & Plan Assessment & Plan (1) Severe asthma: Code(s): J45.909 - Unspecified asthma, uncomplicated Category: Medical Plan nurse visit for dupixent teaching Coding Level of Care Code Established Pt Est Pt Level 1 (57937) Patient Type Established Diagnoses Severe asthma J45.909 Comment NURSE VISIT ONLY
[2024-07-09 09:47] VITALS: PULSE 100; O2SAT 96; BMI 52.5
--- OUTSIDE RECORDS SUMMARY | 2024-07-09 10:15 | XMS_ITS | Data Portability ---
Author Organization [place] [facility] Address [address] [place] [phone] Care Team Providers Care Gut Dropper Name Role Phone VICTOR MANUEL GEORGE ADULT [...] recorded. Lab lipase, serum or plasma 2020 WADE [facility] (Centralized Electronic Ordering - All Locations), Patient Can Go To The Location Of Their Choice, [id number] 21:57:51 CBC w/ auto diff 2020 WADE [facility] (Centralized Electronic Ordering - All Locations), Patient Can Go To The Location Of Their Choice, 21:04:45 hepatic function panel, serum 2020 WADE [facility] (Centralized Electronic Ordering - All Locations), Patient Can Go To The Location Of Their Choice, 21:57:48 bun (blood urea nitrogen), serum or plasma 2020 WADE [facility] (Centralized Electronic Ordering - All Locations), Patient Can Go To The Location Of Their Choice, 21:57:36 creatinine, serum or plasma 2020 WADE [facility] (Centralized Electronic Ordering - All Locations), Patient Can Go To The Location Of Their Choice, 21:57:44 electrolyte panel, serum 2020 WADE [facility] (Centralized Electronic Ordering - All Locations), Patient Can Go To The Location Of Their Choice, 21:57:55 Referral None recorded. Procedures None recorded. Surgeries None recorded. Imaging None recorded. Medication Orders None recorded. Patient TargetsNo targets recorded. Patient Instructions Encounter Date Encounter Id Patient Instructions Last Modified By Organization Details Last Modified Time 10/06/2020 [id number] [facility] came to your home to evaluate you [...] ED. Thank you for your visit with [facility] today. We cannot always find the exact [...] in your condition between 8am-10pm, please call [facility] at [phone] to help navigate your care. Not available 10/06/2020 14:14:08 Reason for Referral None Reported. Results Created Date Observation Date Name Description Value Unit Range Abnormal Flag Note LastModifiedBy Organization Detail LastModifiedTime 10/07/1910/06/2020 CBC w/ auto diff WBC 11.8 K/mm3 (4.0-1 1.0) high Not Available [facility] (Centralized Electronic Ordering - All Locations) Patient Can Go To The Location Of Their Choice, 10/06/2020 21:04:45 10/07/1910/06/2020 CBC w/ auto diff RBC 4.64 M/mm3 (4.20- 5.40) Not Available [facility] (Centralized Electronic Ordering - All Locations) Patient Can Go To The Location Of Their Choice, 10/06/2020 21:04:45 10/07/1910/06/2020 CBC w/ auto diff HGB 13.4 gm/dL (11.7- 15.5) Not Available [facility] (Centralized Electronic Ordering - All Locations) Patient Can Go To The Location Of Their Choice, 10/06/2020 21:04:45 10/07/1910/06/2020 CBC w/ auto diff HCT 41.4 % (35.7- 45.8) Not Available [facility] (Centralized Electronic Ordering - All Locations) Patient Can Go To The Location Of Their Choice, 10/06/2020 21:04:45 10/07/1910/06/2020 CBC w/ auto diff MCV 89.2 fL (80.0- 100.0) Not Available [facility] (Centralized Electronic Ordering - All Locations) Patient Can Go To The Location Of Their Choice, 10/06/2020 21:04:45 10/07/1910/06/2020 CBC w/ auto diff MCH 28.9 pg (27.0- 34.0) Not Available [facility] (Centralized Electronic Ordering - All Locations) Patient Can Go To The Location Of Their Choice, 10/06/2020 21:04:45 10/07/1910/06/2020 CBC w/ auto diff MCHC 32.4 g/dL (33.0- 37.0) low Not Available [facility] (Centralized Electronic Ordering - All Locations) Patient Can Go To The Location Of Their Choice, 10/06/2020 21:04:45 10/07/1910/06/2020 CBC w/ auto diff plt 318 K/mm3 (150-4 60) Not Available [facility] (Centralized Electronic Ordering - All Locations) Patient Can Go To The Location Of Their Choice, 10/06/2020 21:04:45 10/07/1910/06/2020 CBC w/ auto diff RDW-SD 47.3 fL (<47.0 ) high Not Available [facility] (Centralized Electronic Ordering - All Locations) Patient Can Go To The Location Of Their Choice, 10/06/2020 21:04:45 10/07/1910/06/2020 CBC w/ auto diff MPV 10.9 fL (9.4-1 2.4) Not Available [facility] (Centralized Electronic Ordering - All Locations) Patient Can Go To The Location Of Their Choice, 10/06/2020 21:04:45 10/07/1910/06/2020 CBC w/ auto diff automated NRBC 0.0 #/100 _WBC' s Not Available [facility] (Centralized Electronic Ordering - All Locations) Patient Can Go To The Location Of Their Choice, 10/06/2020 21:04:45 10/07/1910/06/2020 CBC w/ auto diff abs. NRBC 0.0 K/mm3 Not Available [facility] (Centralized Electronic Ordering - All Locations) Patient Can Go To The Location Of Their Choice, 10/06/2020 21:04:45 10/07/1910/06/2020 CBC w/ auto diff neut # 6.7 K/mm3 (1.3-7 .0) Not Available [facility] (Centralized Electronic Ordering - All Locations) Patient Can Go To The Location Of Their Choice, 10/06/2020 21:04:45 10/07/1910/06/2020 CBC w/ auto diff lymph # 3.6 K/mm3 (0.8-3 .1) high Not Available [facility] (Centralized Electronic Ordering - All Locations) Patient Can Go To The Location Of Their Choice, 10/06/2020 21:04:45 10/07/1910/06/2020 CBC w/ auto diff mono# 0.9 K/mm3 (0.4-0 .9) Not Available [facility] (Centralized Electronic Ordering - All Locations) Patient Can Go To The Location Of Their Choice, 10/06/2020 21:04:45 10/07/1910/06/2020 CBC w/ auto diff eo # 0.5 K/mm3 (0.0-0 .4) high Not Available [facility] (Centralized Electronic Ordering - All Locations) Patient Can Go To The Location Of Their Choice, 10/06/2020 21:04:45 10/07/1910/06/2020 CBC w/ auto diff baso # 0.1 K/mm3 (0.0-0 .1) Not Available [facility] (Centralized Electronic Ordering - All Locations) Patient Can Go To The Location Of Their Choice, 10/06/2020 21:04:45 10/07/1910/06/2020 CBC w/ auto diff abs. imm gran 0.0 K/mm3 Not Available [facility] (Centralized [facility] Ordering - All Locations) Patient Can Go To The Location Of Their Choice, 10/06/2020 21:04:45 10/07/1910/06/2020 CBC w/ auto diff neut 56.9 % (44-76 ) Not Available [facility] (Centralized Electronic Ordering - All Locations) Patient Can Go To The Location Of Their Choice, 10/06/2020 21:04:45 10/07/1910/06/2020 CBC w/ auto diff lymph 30.2 % (15-43 ) Not Available [facility] (Centralized Electronic Ordering - All Locations) Patient Can Go To The Location Of Their Choice, 10/06/2020 21:04:45 10/07/1910/06/2020 CBC w/ auto diff monocyte 7.2 % (4.5-1 0.5) Not Available [facility] (Centralized Electronic Ordering - All Locations) Patient Can Go To The Location Of Their Choice, 10/06/2020 21:04:45 10/07/1910/06/2020 CBC w/ auto diff eo 4.3 % (0-6) Not Available [facility] (Centralized Electronic Ordering - All Locations) Patient Can Go To The Location Of Their Choice, 10/06/2020 21:04:45 10/07/1910/06/2020 CBC w/ auto diff baso 1.1 % (0-2) Not Available [facility] (Centralized Electronic Ordering - All Locations) Patient Can Go To The Location Of Their Choice, 10/06/2020 21:04:45 10/07/1910/06/2020 CBC w/ auto diff imm gran 0.3 % Not Available [facility] (Centralized Electronic Ordering - All Locations) Patient Can Go To The Location Of Their Choice, 10/06/2020 21:04:45 10/07/1910/06/2020 bun (bloo d urea nitro gen), serum or plasm a BUN 9 mg/dL (6-20) Not Available [facility] (Centralized Electronic Ordering - All Locations) Patient Can Go To The Location Of Their Choice, 10/06/2020 21:57:36 10/07/1910/06/2020 creat inine , serum or plasm a creatinine 0.8 mg/dL (0.5-1 .0) Not Available [facility] (Centralized Electronic Ordering - All Locations) Patient Can Go To The Location Of Their Choice, 10/06/2020 21:57:44 10/07/1910/06/2020 creat inine , serum or plasm a [...] [employer]. Not Available [facility] (Centralized Electronic Ordering - All Locations) Patient Can Go To The Location Of Their Choice, 10/06/2020 21:57:44 10/07/1910/06/2020 creat inine , serum or plasm a [...] [employer]. Not Available [facility] (Centralized Electronic Ordering - All Locations) Patient Can Go To The Location Of Their Choice, 10/06/2020 21:57:44 10/07/1910/06/2020 hepat ic funct ion panel , serum bilirubin,to tia <0.2 mg/dL (0-1.2 ) Not Available [facility] (Centralized Electronic Ordering - All Locations) Patient Can Go To The Location Of Their Choice, 10/06/2020 21:57:48 10/07/1910/06/2020 hepat ic funct ion panel , serum bilirubin, direct <0.2 mg/dL (0-0.3 ) Not Available [facility] (Centralized Electronic Ordering - All Locations) Patient Can Go To The Location Of Their Choice, 10/06/2020 21:57:48 10/07/1910/06/2020 hepat ic funct ion panel , serum indirect bilirubin mg/dL (0.0-0 .7) Total bilir ubin is less than the measu reabl e limit . There fore, indir ect bilir ubin canno t be calcu lated . Not Available [facility] (Centralized Electronic Ordering - All Locations) Patient Can Go To The Location Of Their Choice, 10/06/2020 21:57:48 10/07/1910/06/2020 hepat ic funct ion panel , serum albumin 3.9 gm/dL (3.4-4 .8) Not Available [facility] (Centralized Electronic Ordering - All Locations) Patient Can Go To The Location Of Their Choice, 10/06/2020 21:57:48 10/07/1910/06/2020 hepat ic funct ion panel , serum AST 20 U/L (0-32) Not Available [facility] (Centralized Electronic Ordering - All Locations) Patient Can Go To The Location Of Their Choice, 10/06/2020 21:57:48 10/07/1910/06/2020 hepat ic funct ion panel , serum ALT 16 U/L (0-33) Not Available [facility] (Centralized Electronic Ordering - All Locations) Patient Can Go To The Location Of Their Choice, 10/06/2020 21:57:48 10/07/1910/06/2020 hepat ic funct ion panel , serum alk phos 91 U/L (35-10 4) Not Available [facility] (Centralized Electronic Ordering - All Locations) Patient Can Go To The Location Of Their Choice, 10/06/2020 21:57:48 10/07/1910/06/2020 hepat ic funct ion panel , serum total protein 6.0 gm/dL (6.2-8 .2) low Not Available [facility] (Centralized Electronic Ordering - All Locations) Patient Can Go To The Location Of Their Choice, 10/06/2020 21:57:48 10/07/1910/06/2020 lipas e, serum or plasm a lipase 20 U/L (13-60 ) Not Available [facility] (Centralized Electronic Ordering - All Locations) Patient Can Go To The Location Of Their Choice, 10/06/2020 21:57:51 10/07/1910/06/2020 elect rolyt e panel , serum sodium 137 mmol/ L (133-1 45) Not Available [facility] (Centralized Electronic Ordering - All Locations) Patient Can Go To The Location Of Their Choice, 10/06/2020 21:57:55 10/07/1910/06/2020 elect rolyt e panel , serum potassium 4.4 mmol/ L (3.6-5 .2) Not Available [facility] (Centralized Electronic Ordering - All Locations) Patient Can Go To The Location Of Their Choice, 10/06/2020 21:57:55 10/07/1910/06/2020 elect rolyt e panel , serum chloride 102 mmol/ L (98-10 7) Not Available [facility] (Centralized Electronic Ordering - All Locations) Patient Can Go To The Location Of Their Choice, [id number] 10/06/2020 21:57:55 10/07/1910/06/2020 elect rolyt e panel , serum bicarbonate 22 mmol/ L (22-29 ) Not Available [facility] (Centralized Electronic Ordering - All Locations) Patient Can Go To The Location Of Their Choice, [id number] 10/06/2020 21:57:55 10/07/1910/06/2020 elect rolyt e panel , serum anion gap 13 (4-17) Not Available [facility] (Centralized Electronic Ordering - All Locations) Patient Can Go To The Location Of Their Choice, [id number] 10/06/2020 21:57:55 Result Notes None recorded. Procedures Surgical History Date Name Laterality Status Provider Name and Address Organization Details Recorded Time cholecystectomy completed DEBBIE GAN NP [address], [place], [address], [place] [facility] 10/06/2020 13:55:28 Imaging Results None recorded. Procedure Notes None recorded. Medical Equipment None Reported. Allergies Allergen ID Allergen Name Allergen Category Reaction Reaction Severity Criticality Documentation Date Start Date Code Code System Note Provider Name and Address Organization Details Recorded Time [id number] morphine medicatio n abdominal pain Not available Not available 10/06/2020 7052 RxNoroc GARCIA NP [address], [place], [address], [place] [facility] 13:52:48 [id number] Phenergan medicatio n Not available Not available Not available 10/06/2020 66164 8 RxNoroc GARCIA NP [address] [place], [address], [place] [facility] 13:53:00 [id number] codeine medicatio n Not available Not available Not available 10/06/2020 2670 RxSourav GARCAI NP [address] [place], [address], [place] [facility] 13:53:07 [...] mm[Hg] 72 mm[Hg] Not Available [facility] 1 13:56:45 Social History None recorded. Functional Status None recorded. Mental Status None recorded. Family History Nothing Reported. Medical History Condition Response Depression Y Asthma Y Gynecological HistoryNo gynecological history recorded. Obstetrics History GPAL:G 0 P 0 0 0 0 Past Encounters Encounter ID Performer Location Encounter Start Date Encounter Closed Date Diagnosis/Indication Diagnosis SNOMED-CT Code Diagnosis ICD10 Code Diagnosis Note [id number] DEBBIE GARCIA NP [facility] [address] [place] [address] 10/06/2020 13:50:21 10/09/2020 17:34:09 Epigastric pain 84749425 R10.13 Health Concerns Section Related Observation LastModified by Organization Detai ls LastModified Time None Recorded Concern Status LastModified by Organization Details LastModified Time None Recorded Advance Directives Directive None Recorded Payers Encounter Date Sequence Insurance Name Policy Number Policy Flores Covered Member ID Flores Member ID Guarantor Name 10/06/2020 1 [facility] [employer] [facility] (MEDICAID HMO) [id number] Gail Multani [id number] Gail Multani Notes Date Note Type Note Provider Name and Address Organization Details Recorded Time 10/06/2020 text/html 40 year-old fema le with history of GERD, depression, anxiety, cholecystectomy who calls to the home for evaluation of abdominal pain. Pt sts she has been having epigastric pain for the past week. It is constant and non-radiating. She has had some nausea but denies vomiting. Eating seems to make it worse. She has noticed a bad taste in her mouth. She has had this before. She was admitted to [facility] and treated for a stomach bacterial [...] out work today. DEBBIE GARCIA, AKHIL [address], [place], [address], [place] [facility] 10/06/2020 19:25:52 OBGyn Episode No OBEpisode recorded.
--- OUTSIDE RECORDS SUMMARY | 2024-07-09 10:16 | XMS_ITS | Clinical Summary ---
Author Organization [facility] Address [address] [place] [address] Care Team Providers Care Brick Cleaner Name Role Phone Unavailable Primary Care Provider [...]
== END 2024-07-09 10:38 | disposition home or self-care (01) ==
LOC: HO.HPS 09:29
PROVIDERS: PCP Family Medicine; Visit Provider Nurse Practitioner Family
DX: J45.909 Unspecified asthma, uncomplicated (principal)

== ENCOUNTER → 2024-07-09 09:29 | Outpatient (BNVA) | payer OTHER, SELFPAY | PROVIDERS: PCP Family Medicine; Visit Provider Nurse Practitioner Family | DX: J45.901 Unspecified asthma with (acute) exacerbation (principal) | CPT/HCPCS: 99211 ==

== ENCOUNTER 2024-10-10 14:04 | Outpatient (AMB) | payer OTHER, SELFPAY ==
[2024-10-10 14:20] VITALS: BP 130/74; PULSE 92; O2SAT 97; BMI 51.4
--- NOTE | 2024-10-10 14:20 | A.OFFVIS_ITS ---
Vital Signs 10/10/24 14:20 Height 5 ft 1 in Weight 272 lb 4 oz BMI 51.4 BP 130/74 Blood Pressure Location Lt radial Position Sitting Pulse 92 Pulse Source Pulse Oximeter Pulse Oximetry (%) 97 Oxygen Delivery Method Nasal Cannula Oxygen Flow Rate 2 Intake Visit Reasons: Dyspnea Cmm Technician Required: Yes Cmm Technician Language: Security Program Manager Services: Cmm Technician Present Cmm Technician Name: Antony [id number] Allergies promethazine (From PHENERGAN) Allergy (Unknown, Verified 10/10/24 14:26) ITCHING egg Allergy (Verified 10/10/24 14:26) Hives codeine (CODEINE) Adverse Reaction (Unknown, Verified 10/10/24 14:26) STOMACH UPSET morphine (MORPHINE) Adverse Reaction (Unknown, Verified 10/10/24 14:26) MORE PAIN HPI HPI Dyspnea: Details: Gail is a pleasant 43-year-old female, former 90 pack year smoker, quit 1 year ago with underlying severe asthma on 2L continuous supplemental oxygen and NOC, chronic sinusitis and h/o acute hypoxic respiratory failure secondary to MSSA pneumonia superinfection of prior COVID pneumonia resulting in acute hypoxic respiratory failure requiring intubation and ventilatory support. Hospital course complicated by development of acute cor pulmonale in 2021. She continues to report suboptimal control of respiratory symptoms on Trelegy 200 mcg and an order was placed to initiate Dupixent as patient with multiple courses of OCS as well as persistent elevations in eosinophils, which she been using with good effect. She currently denies any respiratory symptoms and is motivated to discontinue supplemental oxygen which she has been using continously 2L and NOC. She denies any visits to urgent care or hospitalizations since last visit related to respiratory distress. [facility] Medical History (Updated 06/27/24 @ 14:23 by Sapna Luz NP) Morbid obesity Sinus infection Acute and chronic respiratory failure with hypoxia Acute exacerbation of chronic obstructive airways disease Abdominal pain Asthma with exacerbation Lower extremity edema Pneumonia Sepsis Acute exacerbation of COPD with asthma Acute respiratory failure with hypoxia Asthmaticus, status Chronic lung disease ILD (interstitial lung disease) Panic attack as reaction to stress Recurrent major depression Generalized anxiety disorder Disc herniation H. pylori infection Depression Migraine Asthma Surgical History History of Family History Mother Diabetes High cholesterol Social History Household Members: None Housing: Apartment Housing Other:: 2nd fl Do you presently have visiting nurse or other home services: Yes (visiting nurse) Alcohol intake: never Comment: Pt refusing bed/chair alarm- steady on feet, 1:1 Sitter Patient Tobacco Use Status: Former Tobacco user Tobacco use type: Cigarette Cigarette Packs Per Day: 4 e-Cigarette/Vaping Use: Former Use Second Hand Smoke Exposure: No Advance Directives Date on File: 05/12/22 service: No Current occupational status: unemployed Review of Systems Const Denies chills, Denies excessive sweating, Denies fever(s), Denies headache(s) and Denies night sweats Eyes Denies dry eyes, Denies irritation and Denies itchy eyes ENT Reports Normal hearing present, Denies headache(s), Denies nasal congestion, Denies nasal discharge, Denies post nasal drip and Denies sore throat Card Denies chest pain, Denies chest pain at rest, Denies chest pain with activity, Denies claudication, Denies leg edema, Denies dyspnea, Denies dyspnea on exertion, Denies orthopnea and Denies paroxysmal nocturnal dyspnea Resp Denies chest congestion, Denies cough, Denies excessive phlegm production, Kunal es pain on inspiration, Denies pain with cough, Denies dyspnea, Denies dyspnea on exertion, Denies stridor and Denies wheezing Musc Denies myalgias Neuro Reports Normal hearing present and Denies headache(s) Endo Denies excessive sweating Mark/Lymph Denies lymphadenopathy Aller/Immun Denies itchy eyes, Denies seasonal rhinorrhea and Denies wheezing Physical Exam Vital Signs: Last Vital Signs Pulse 92 10/10/24 14:20 BP 130/74 10/10/24 14:20 Pulse Ox 97 10/10/24 14:20 Oxygen Delivery Method Nasal Cannula 10/10/24 14:20 Oxygen Flow Rate 2 10/10/24 14:20 BMI result Body Mass Index 51.4 Const General: cooperative, healthy appearing, comfortable, no acute distress, well developed and alert Nutritional Appearance: obese Orientation/consciousness: patient oriented x3 Limitations: no limitations HEENT Head: Yes normal to inspection, Yes normocephalic and Yes atraumatic Ears: hearing grossly normal bilaterally and external ears normal Eyes General: appearance normal, both eyes and all related structures Eyelids: Yes eyelids normal Sclerae: sclerae normal EOM: EOMs intact bilaterally Neck Neck: Yes normal visual inspection and Yes no lymphadenopathy Lymphatic: no lymphadenopathy noted Chest Chest palpation & inspection: normal inspection of the chest Resp Effort & Inspection: normal respiratory effort, able to speak in complete sentences, no audible wheezes, no cough, no stridor, not tachypneic, no tripod positioning and no use of accessory muscles Auscultation: clear to auscultation bilaterally Cardio Jugular venous distension: no JVD Rate: regular rate Rhythm: regular rhythm Skin Other: warm, dry General skin exam: no rashes or lesions noted Neuro General: patient oriented x3 Cranial nerves: Yes Normal hearing present Cognition (Neuro): normal cognition Gait exam (Neuro): Normal gait present Extrem General: Yes normal to inspection, Yes capillary refill normal, Yes no clubbing, cyanosis or edema and Yes no pedal edema Psych Appearance: grossly normal and well kempt Speech and movement: Normal speech and movement present and Clear speech present Affect: normal affect Attitude: cooperative Thought process: Normal thought process present Thought content: Normal thought content present Insight: Good insight present (Psych) Judgement: Good judgement present (Psych) Office Procedures 6 Minute Walk Time:: 14:30 SPO2 % at rest: 96 Pulse at rest: 90 SPO2 % during excercise: 91 Pulse during excercise: 134 SPO2 % after excercise: 94 Pulse after excercise: 120 Distance in yards walked: 75 Donald Score: 7 Performance Observations:: Patient walked unassisted on level ground. Maintained O2 saturation of 91-92% and pulse of 120-134. Walk stopped at 4 minutes due to elevated pulse rate. [id number] - 6 Minute Walk Assessment & Plan Assessment & Plan (1) Severe asthma: Code(s): J45.909 - Unspecified asthma, uncomplicated Category: Medical (2) Nocturnal hypoxemia: Code(s): G47.34 - Idiopathic sleep related nonobstructive alveolar hypoventilation Category: Medical (3) Dyspnea: Code(s): R06.00 - Dyspnea, unspecified Category: Medical (4) Morbid obesity: Code(s): E66.01 - Morbid (severe) obesity due to excess calories Category: Medical Plan At this time Gail reports good control of respiratory symptoms and is motivated to d/c O2. Advised to continue Trelegy and Dupixent. 6MWT performed in office and patient's lowest oxygen saturation was 91% after 4 minutes of walking unfortunately stopped due to tachycardia upwards of 135. Prior cardiology evaluation unremarkable and thought to be solely related to pulmonary etiologies. We did discuss the significant contribution from weight and is working towards weight loss. She recently started GLP1 and plans to have gastric surgery once she meets criteria. We did discuss using 2L with exertion and NOC, otherwise can be on room air at rest. Will repeat 6MWT at next visit, with hope that she continues to lose weight. Prior chest CT from 09/2023 revealed mild emphysematous changes with scattered pulmonary nodules <4 mm. Order placed for repeat chest CT 09/2024 to ensure stability of pulmonary nodules however patient no showed. She is agreeable to call to reschedule. All questions were answered and patient in agreement of plan. Will follow up 3 months or sooner if needed. Orders: Orders AMB 6 minute walk Today J45.909 - Unspecified asthma, uncomplicated, R06.00 - Dyspnea, unspecified Medications: New fkqswjitrxm-vlzelqmyx-dctpwqmv 200-62.5-25 mcg (Trelegy Ellipta) 1 inh inhalation DAILY 60 ea 6RF Coding Level of Care Code Est Pt Level 4 (82682) Diagnoses Severe asthma J45.909 Nocturnal hypoxemia G47.34 Dyspnea R06.00 Morbid obesity E66.01 CPT Codes Coding ([id number])
--- OUTSIDE RECORDS SUMMARY | 2024-10-10 16:11 | XMS_ITS | Data Portability ---
Author Organization [place] - [facility], [facility] Address [address] [place] [id number] Care Team Providers Care Chief Deputy Coroner Name Role Phone VICTOR MANUEL GEORGE ADULT [...] Go To The Location Of Their Choice, [id number] 21:57:51 CBC w/ auto diff 2020 WADE [...] Their Choice, 21:57:44 electrolyte panel, serum 2020 WDAE [facility] (Centralized Electronic Ordering - All Locations), Patient Can Go To The Location Of Their Choice, 21:57:55 Referral None recorded. Procedures None recorded. Surgeries None recorded. Imaging None recorded. Medication Orders None recorded. Patient TargetsNo targets recorded. Patient Instructions Encounter Date Encounter Id Patient Instructions Last Modified By Organization Details Last Modified Time 10/06/2020 [id number] [employer] came to your home to evaluate you [...] ED. Thank you for your visit with [employer] today. We cannot always find the exact [...] in your condition between 8am-10pm, please call [employer] at [phone] to help navigate your care. Not available [...] has not been valid ated in child jmaes (<18 years ), pregn ant women or [...] Go To The Location Of Their Choice, [id number] 10/06/2020 21:57:55 10/07/1910/06/2020 elect rolyt e panel , serum bicarbonate 22 mmol/ L (22-29 ) Not Available [facility] (Centralized Electronic Ordering - All Locations) Patient Can Go To The Location Of Their Choice, [id number] 10/06/2020 21:57:55 10/07/1910/06/2020 elect rolyt e panel , serum anion gap 13 (4-17) Not Available [facility] (Centralized Electronic Ordering - All Locations) Patient Can Go To The Location Of Their Choice, [id number] 10/06/2020 21:57:55 Result Notes None recorded. Procedures Surgical History Date Name Laterality Status Provider Name and Address Organization Details Recorded Time cholecystectomy completed DEBBIE GAN NP [address], [place], [address], [place] [facility] 10/06/2020 13:55:28 Imaging Results None recorded. Procedure Notes None recorded. Medical Equipment None Reported. Allergies Allergen ID Allergen Name Allergen Category Reaction Reaction Severity Criticality Documentation Date Start Date Code Code System Note Provider Name and Address Organization Details Recorded Time [id number] morphine medicatio n abdominal pain Not available Not available 10/06/2020 7052 RxNoroc GARCIA NP [address], [place], [address], [place] [facility] 13:52:48 [id number] Phenergan medicatio n Not available Not available Not available 10/06/2020 21906 8 [facility] GARCIA NP [address] [place], [address], [place] [facility] 13:53:00 [id number] codeine medicatio n Not available Not available Not available 10/06/2020 2670 RxSourav GARCIA NP [address] [place], [address], [place] [facility] 13:53:07 [...] t Available Prevalite 4 gram powder for suspension in a packet TAKE 1 PACKET MIXED [...] 124 mm[Hg] 72 mm[Hg] Not Available [facility] 13:56:45 Social History None recorded. Functional Status None recorded. Mental Status None recorded. Family History Nothing Reported. Medical History Condition Response Depression Y Asthma Y Gynecological HistoryNo gynecological history recorded. Obstetrics History GPAL:G 0 P 0 0 0 0 Past Encounters Encounter ID Performer Location Encounter Start Date Encounter Closed Date Diagnosis/Indication Diagnosis SNOMED-CT Code Diagnosis ICD10 Code Diagnosis Note [id number] DEBBIE GARCIA NP [facility] [address] [facility] [place] [id number] 10/06/2020 13:50:21 10/09/2020 17:34:09 Epigastric pain 97345499 R10.13 Health Concerns Section Related Observation LastModified by Organization Detai ls LastModified Time None Recorded Concern Status LastModified by Organization Details LastModified Time None Recorded Advance Directives Directive None Recorded Payers Insurance Date Sequence Insurance Name Policy Number Policy Flores Covered Member ID Flores Member ID Guarantor Name 10/06/2020 1 *SELF PAY* Gail Multani [id number] Gail Multani 10/09/2020 1 [facility] (MEDICAID REPLACEMENT - HMO) Gail Multani [id number] Gail Multani 10/09/2020 1 [facility] [id number] Gail Multani [id number] Gail Multani 10/09/2020 1 [facility] (MEDICAID HMO) [id number] Gail Multani [id number] Gail Multani 10/09/2020 1 [facility] (MEDICAID HMO) [id number] Gail Multani [id number] Gail Multani 10/09/2020 1 [place] [facility] Gail Multani [id number] Gail Multani Notes Date Note Type Note [...] had this before. She was admitted to [facility] and treated for a stomach bacterial [...] note to stay out work today. DEBBIE GARCIA NP [address], [place], [address], [place] [facility] 10/06/2020 19:25:52 OBGyn Episode No OBEpisode recorded.
[2024-10-10 16:17] VITALS: PULSE 90; O2SAT 96
== END 2024-10-10 14:59 | disposition home or self-care (01) ==
LOC: HO.HPSW 14:04
PROVIDERS: PCP Family Medicine; Visit Provider Nurse Practitioner Family
DX: J45.909 Unspecified asthma, uncomplicated (principal); G47.34 Idiopathic sleep related nonobstructive alveolar hypoventilation; R06.00 Dyspnea, unspecified; E66.01 Morbid (severe) obesity due to excess calories
CPT/HCPCS: 94618; 99214

== ENCOUNTER → 2024-10-10 14:04 | Outpatient (BNVA) | payer OTHER, SELFPAY | PROVIDERS: PCP Family Medicine; Visit Provider Nurse Practitioner Family | DX: J45.50 Severe persistent asthma, uncomplicated (principal); R06.00 Dyspnea, unspecified; G47.34 Idiopathic sleep related nonobstructive alveolar hypoventilation; E66.01 Morbid (severe) obesity due to excess calories; F17.210 Nicotine dependence, cigarettes, uncomplicated; Z68.43 Body mass index [BMI] 50.0-59.9, adult; Z99.81 Dependence on supplemental oxygen | CPT/HCPCS: 94618; 99212 ==

== ENCOUNTER 2025-01-25 14:03 | Outpatient (AMB) | payer OTHER, SELFPAY ==
[2025-01-25 14:09] VITALS: BP 140/72; PULSE 98; O2SAT 95; BMI 51.6
--- NOTE | 2025-01-25 14:09 | MHC.OFFVIS ---
Vital Signs 01/25/25 14:09 Height 5 ft 1 in Weight 273 lb 2 oz BMI 51.6 BP 140/72 H Blood Pressure Location Rt radial Position Sitting Pulse 98 Pulse Source Pulse Oximeter Pulse Oximetry (%) 95 Oxygen Delivery Method Nasal Cannula Oxygen Flow Rate 2 Intake Visit Reasons: Dyspnea Metal Fabricating Inspector Required: Yes Metal Fabricating Inspector Language: Resort [employer] Services: Metal Fabricating Inspector Present Metal Fabricating Inspector Name: Lizbeth Benson LM Allergies promethazine (From PHENERGAN) Allergy (Unknown, Verified 01/25/25 14:14) ITCHING egg Allergy (Verified 01/25/25 14:14) Hives codeine (CODEINE) Adverse Reaction (Unknown, Verified 01/25/25 14:14) STOMACH UPSET morphine (MORPHINE) Adverse Reaction (Unknown, Verified 01/25/25 14:14) MORE PAIN HPI HPI Dyspnea: Details: Gail is a pleasant 43-year-old female, former 90 pack year smoker, quit 1 year ago with underlying severe asthma on 2L continuous supplemental oxygen and NOC, chronic sinusitis and h/o acute hypoxic respiratory failure secondary to MSSA pneumonia superinfection of prior COVID pneumonia resulting in acute hypoxic respiratory failure requiring intubation and ventilatory support. Hospital course complicated by development of acute cor pulmonale in 2021. She had reported suboptimal control on Trelegy requiring multiple courses of prednisone as well as persistent elevations in eosinophils and was started on Dupixent in June 2024. At baseline, she reports significant improvement in respiratory symptoms, and had required prednisone or antibiotics in quite some time. Today she presents for an acute visit. She reports ongoing wheezing, productive cough with yellow sputum, chest congestion and increase in dyspnea over the last week. She does report that her granddaughter was sick. She denies any increase in supplemental oxygen need, using 2 L continuously maintaining greater than 92% oxygen saturation. [facility] Medical History (Updated 06/27/24 @ 14:23 by Sapna Luz NP) Morbid obesity Sinus infection Acute and chronic respiratory failure with hypoxia Acute exacerbation of chronic obstructive airways disease Abdominal pain Asthma with exacerbation Lower extremity edema Pneumonia Sepsis Acute exacerbation of COPD with asthma Acute respiratory failure with hypoxia Asthmaticus, status Chronic lung disease ILD (interstitial lung disease) Panic attack as reaction to stress Recurrent major depression Generalized anxiety disorder Disc herniation H. pylori infection Depression Migraine Asthma Surgical History History of Family History Mother Diabetes High cholesterol Social History Household Members: None Housing: Apartment Housing Other:: 2nd fl Do you presently have visiting nurse or other home services: Yes (visiting nurse) Alcohol intake: never Comment: Pt refusing bed/chair alarm- steady on feet, 1:1 Sitter Patient Tobacco Use Status: Former Tobacco user Tobacco use type: Cigarette Cigarette Packs Per Day: 4 e-Cigarette/Vaping Use: Former Use Second Hand Smoke Exposure: No Advance Directives Date on File: 05/12/22 service: No Current occupational status: unemployed Review of Systems Const Denies chills, Denies excessive sweating, Denies fever(s), Denies headache(s) and Denies night sweats Eyes Denies dry eyes, Denies irritation and Denies itchy eyes ENT Reports Normal hearing present, Denies headache(s), Reports nasal congestion, Denies nasal discharge, Denies post nasal drip and Denies sore throat Card Denies chest pain, Denies chest pain at rest, Denies chest pain with activity, Denies claudication, Denies leg edema, Denies dyspnea, Reports dyspnea on exertion, Denies orthopnea and Denies paroxysmal nocturnal dyspnea Resp Reports change in phlegm color, Reports chest congestion, Reports cough, Denies excessive phlegm production, Denies pain on inspiration, Denies pain with cough, Denies dyspnea, Reports dyspnea on exertion, Denies stridor and Reports wheezing Musc Denies myalgias Neuro Reports Normal hearing present and Denies headache(s) Endo Denies excessive sweating Mark/Lymph Denies lymphadenopathy Aller/Immun Denies itchy eyes, Denies seasonal rhinorrhea and Reports wheezing Physical Exam Vital Signs: Last Vital Signs Pulse 98 01/25/25 14:09 BP 140/72 H 01/25/25 14:09 Pulse Ox 95 01/25/25 14:09 Oxygen Delivery Method Nasal Cannula 01/25/25 14:09 Oxygen Flow Rate 2 01/25/25 14:09 BMI result Body Mass Index 51.6 Const General: cooperative, healthy appearing, comfortable, no acute distress, well developed and alert Nutritional Appearance: obese Orientation/consciousness: patient oriented x3 Limitations: no limitations HEENT Head: Yes normal to inspection, Yes normocephalic and Yes atraumatic Ears: hearing grossly normal bilaterally and external ears normal Eyes General: appearance normal, both eyes and all related structures Eyelids: Yes eyelids normal Sclerae: sclerae normal EOM: EOMs intact bilaterally Neck Neck: Yes normal visual inspection and Yes no lymphadenopathy Lymphatic: no lymphadenopathy noted Chest Chest palpation & inspection: normal inspection of the chest Resp Effort & Inspection: normal respiratory effort, able to speak in complete sentences, no audible wheezes, no stridor, not tachypneic, no tripod positioning and no use of accessory muscles Auscultation: rhonchi and wheezes Cardio Jugular venous distension: no JVD Rate: regular rate Rhythm: regular rhythm Skin Other: warm, dry General skin exam: no rashes or lesions noted Neuro General: patient oriented x3 Cranial nerves: Yes Normal hearing present Cognition (Neuro): normal cognition Gait exam (Neuro): Normal gait present Extrem General: Yes normal to inspection, Yes capillary refill normal, Yes no clubbing, cyanosis or edema and Yes no pedal edema Psych Appearance: grossly normal and well kempt Speech and movement: Normal speech and movement present and Clear speech present Affect: normal affect Attitude: cooperative Thought process: Normal thought process present Thought content: Normal thought content present Insight: Good insight present (Psych) Judgement: Good judgement present (Psych) Assessment & Plan Assessment & Plan (1) Severe asthma: Code(s): J45.909 - Unspecified asthma, uncomplicated Category: Medical (2) Nocturnal hypoxemia: Code(s): G47.34 - Idiopathic sleep related nonobstructive alveolar hypoventilation Category: Medical (3) Dyspnea: Code(s): R06.00 - Dyspnea, unspecified Category: Medical (4) Morbid obesity: Code(s): E66.01 - Morbid (severe) obesity due to excess calories Category: Medical Plan Will treat bronchitic symptoms with doxycycline and prednisone. She is aware to call if symptoms do not improve and seek emergent care symptoms worsen. She also reports ongoing nasal congestion, will trial Flonase. Advised patient to continue Trelegy, Dupixent and albuterol MDI as needed as well as 2 L supplemental oxygen with exertion and NOC. Chest CT 09/2023 revealed multiple pulmonary nodules, largest 4 mm. She was sent for repeat chest CT to assess stability of nodules however no showed this appointment, will re-enter order. All questions were answered and patient in agreement of plan. Will follow up 3 months or sooner if needed. Orders: Orders CT chest wo IV con Today R91.8 - Other nonspecific abnormal finding of lung field Medications: New fluticasone furoate 27.5 mcg/actuation (Flonase Sensimist) into each nostril 2 sprays intranasal DAILY 18.2 mL 2RF prednisone 40 mg (2 x 20 mg) PO DAILY 10 tabs 0RF doxycycline hyclate 100 mg PO BID 14 caps 0RF Refilled pyasjocewbl-awbdpvwqd-zycoevjt 200-62.5-25 mcg (Trelegy Ellipta) 1 inh inhalation DAILY 60 ea 6RF Coding Level of Care Code Est Pt Level 4 (93113) Diagnoses Severe asthma J45.909 Nocturnal hypoxemia G47.34 Dyspnea R06.00 Morbid obesity E66.01
--- OUTSIDE RECORDS SUMMARY | 2025-01-25 14:16 | XMS_ITS | Clinical Summary ---
Author Organization [facility] ity Address [address] [place] [address] Care Team Providers Care Electrical Estimator Name Role Phone Unavailable Primary Care Provider [...] Cervical Cancer Screening: P ap Smear 08/29/2000 HPV Vaccines (1 - 3-dose SCD M series) 08/29/2006 Depression Screening 04/25/2024 COVID-19 Vaccine ( - 2023-2 5 season) 2024 Influenza Vaccine (#1) 2024 RSV Immunization Adult Patie nts (1 - 1-dose 75+ series) 08/29/2054 HIB Vaccines Aged Out No longer eligi [...] age to complete this topic Meningococcal B Vaccine Aged Out No l onger eligible based on patient's age to complete this topic Pneumococcal Vaccine: Pediat rics (0 to 5 Years) and At-Risk Patients (6 to 49 Years) Aged Out No longer eligible b ased on patient's age to complete this topic RSV Immunization Patients Un pérez 20 months Aged Out No longer eligible b ased on patient's age to complete this topic Varicella Vaccines Aged Out No longer eligible based on patient's age to complete this topic
== END 2025-01-25 14:36 | disposition home or self-care (01) ==
LOC: HO.HPSW 14:04
PROVIDERS: PCP Family Medicine; Visit Provider Nurse Practitioner Family
DX: J45.909 Unspecified asthma, uncomplicated (principal); G47.34 Idiopathic sleep related nonobstructive alveolar hypoventilation; R06.00 Dyspnea, unspecified; E66.01 Morbid (severe) obesity due to excess calories
CPT/HCPCS: 99214

== ENCOUNTER → 2025-01-25 14:03 | Outpatient (BNVA) | payer OTHER, SELFPAY | PROVIDERS: PCP Family Medicine; Visit Provider Nurse Practitioner Family | DX: J45.50 Severe persistent asthma, uncomplicated (principal); G47.34 Idiopathic sleep related nonobstructive alveolar hypoventilation; R06.00 Dyspnea, unspecified; E66.01 Morbid (severe) obesity due to excess calories; R91.8 Other nonspecific abnormal finding of lung field | CPT/HCPCS: 99212 ==